=== PATIENT | male | born 1940 | race Caucasian/White ===

== ENCOUNTER 2018-04-30 21:31 | Emergency (ER) | payer MEDICARE, SELFPAY ==
[2018-04-30] VITALS (17 sets, daily range): BP systolic 98–114; BP diastolic 48–57; PULSE 71–108; RESP 12–24; TEMP 38.1; O2SAT 90–97
[2018-04-30 21:52] LABS: Bilirubin Negative (Negative); Blood Moderate (Negative); Clarity Cloudy; Glucose Negative (Negative); Ketones Negative (Negative); Leukocyte Esterase Moderate (Negative); Nitrite Positive (Negative); Specific Gravity 1.015 (1.005-1.025); Urobilinogen 0.2 EU/dL (Up TO 0.2); pH 7.5 (5-8)
[2018-04-30 21:59] LABS: WBC >50 HPF (0-5)
[2018-04-30 22:00] LABS: C & S Indicated? Yes
--- NOTE | 2018-04-30 22:00 | ED.GENADUL_ITS ---
Disposition Clinical Impression: UTI (urinary tract infection), Pyelonephritis Disposition: HOME Condition: Stable Instructions: Urinary Tract Infection in Men (ED) Additional Instructions: Take the antibiotics until finished. Take Tylenol as needed and directed for pain or fever. Follow-up with your scheduled appointment with urology next week. You should receive a call from care management regarding follow-up with your primary care doctor hopefully within the next few days. Return immediately to the emergency department any worsening or new concerning symptoms. Medical Decision Making - Lab Data Laboratory Tests 04/30/18 21:39 Urine Color Yellow Urine Clarity Cloudy Urine pH 7.5 Ur Specific [place] 1.015 Urine Protein 100 H Urine Ketones Negative Urine Blood Moderate H Urine Nitrite Positive H Urine Bilirubin Negative Urine Urobilinogen 0.2 Ur Leukocyte Esterase Moderate H Urine Glucose Negative - Radiology Data Radiology results: report reviewed, image reviewed CT abdomen and pelvis: 1. There are fluid-filled loops of small bowel with air-fluid levels. No significant bowel wall thickening or inflammatory changes. No obstruction. Consider early enteritis, gastroenteritis. 2. The distal appendix is distended at 7.4 mm of the proximal appendix measures probably 6 mm. There is a possible appendicolith versus contrast seen in the distal appendix. No secondary signs of appendicitis. Patient notified of 5 mm possible small hepatic cyst. - Medical Decision Making 2134 -- 77-year-old male with history of BPH with urinary urgency and lower abdominal pain 1 week with fever of T-max 103 this evening. 1000 mg Tylenol at 8 PM tonight. Admits to some testicular pain but testicles were not significantly tender, edematous, erythematous. He had mild lower suprapubic tenderness and right CVA tenderness. Temp on arrival 100.6. Heart rate was 108 on initial arrival but just after placement in room, has been in the 70s and 80s. Blood pressure initially 98/53 but has been stable and improved to 101/52. Patient appears nontoxic, in no acute distress. Will hold on Toradol for fever due to allergy to salicylates and to wait on labs to assess kidney function. Differential diagnosis includes UTI, pyelonephritis, epididymitis, prostatitis. As his pressure has been a little soft, urosepsis is a consideration however his vitals may be more consistent with dehydration. Considering patient's age, will place an IV, bolus IV fluids, labs, urinalysis and CT abdomen and pelvis. 2299 --labs reviewed. White blood cell count 11.24. Creatinine 1.65. GFR 40. Lactate 1.1. Urinalysis notes greater than 50 WBCs, positive nitrates, moderate leukocyte Estrace. Patient has allergy to sulfa and penicillin. Patient has 1 out of 4 Sirs criteria with temp greater than 100.4. His heart rate at 108 was taken after immediately walking back to room and has been consistently in the 70s and 80s. His respiratory rate has been between 16 and 17. His white count is less than 12. He states he would rather not stay in the hospital if possible. Will treat for possible pyelonephritis with ciprofloxacin. As almost at the 4 hour anjel for Tylenol, will give 1 g of Tylenol now. Will continue IV fluids. Patient to CT now. 29 --CT notes fluid-filled loops of bowel but no obstruction and appendicolith but no signs of appendicitis. Otherwise no other acute findings. He has no vomiting or diarrhea so doubt gastroenteritis. Patient states he feels much better would like to go home. Repeat temp afebrile. Vitals within normal limits and stable. I think this is a reasonable plan and patient is declining admission. We will send home with prescription for ciprofloxacin. Patient was informed of the possible side effects of fluoroquinolones of tendinopathy but that we are limited with his med allergies and he is agreeable to take this. Diagnosis appears consistent with UTI versus pyelonephritis. Considering patient's history of BPH and complaint of testicular pain, prostatitis could also be a consideration. Patient is followed by urologist Dr. Moses with whom he has an appointment next week. He is instructed to keep this appointment for follow-up. Will have care management also arrange for a follow-up appointment for reevaluation tomorrow or Friday if possible. Patient was instructed to return immediately to the emergency department with any worsening or new concerning symptoms. History of Present Illness - General Chief complaint: Urinary Stated complaint: FEVER, URINARY Time Seen by Provider: 04/30/18 21:35 Source: patient Mode of arrival: ambulatory Limitations: no limitations - History of Present Illness Initial comments: Patient is a 77-year-old female with a history of BPH who presents with urinary urgency and lower abdominal pain for the past week. Patient admits to intermittent fever and chills over the past few days, T-max 103 oral tonight. Last dose of Tylenol 1000 mg just before 8 PM tonight. He admits to intermittent aching lower abdominal pain for the past few days. He denies nausea, vomiting, back pain, hematuria, dysuria, discharge, chest pain, shortness of breath, cough. He denies recent antibiotics or recent hospital admission. - Related Data Finasteride 5 mg PO DAILY 12/03/16 Levothyroxine Sodium 75 mcg PO DAILY 12/03/16 Prednisolone [Millipred] 5 mg PO DAILY 12/03/16 Ropinirole HCl 2 mg PO HS 12/03/16 Tamsulosin HCl 1 tab PO HS 12/03/16 Ciprofloxacin HCl [Cipro] 500 mg PO BID 7 Days #22 tablet 05/03/18 Allergies Allergy/AdvReac Type Severity Reaction Status Date / Time Sulfa (Sulfonamide Allergy Intermediate Unverified 05/01/18 13:31 Antibiotics) cat dander Allergy Mild Unverified 05/01/18 13:31 penicillin V Allergy Mild Unverified 05/01/18 13:31 salicylates AdvReac Mild up set Unverified 05/01/18 13:31 stomach Review of Systems Constitutional: chills, fever Eyes: denies: eye pain ENT: denies: ear pain, dental pain Respiratory: denies: cough, shortness of breath Cardiovascular: denies: chest pain, dyspnea on exertion Gastrointestinal: abdominal pain. denies: nausea, vomiting Genitourinary: urgency. denies: dysuria, frequency, hematuria, discharge, testicular mass Musculoskeletal: denies: back pain Skin: denies: rash, lesions Neurological: denies: headache, weakness Past Medical History - Past Medical History Medical history: hypertension Hypothyroidism, BPH Surgical history: herniorraphy, other (Cataract surgery, right total hip replacement, tonsillectomy, hemorrhoidectomy) - Social History Smoking status: never smoker Alcohol use: occasionally Drug use: none General Exam - General Limitations: no limitations General appearance: alert, in no apparent distress - Eye Eye exam: Present: EOMI - ENT ENT exam: Present: mucous membranes moist - Neck Neck exam: Present: normal inspection - Respiratory Respiratory exam: Present: normal lung sounds bilaterally. Absent: respiratory distress, wheezes, rales, rhonchi, stridor - Cardiovascular Cardiovascular Exam: Present: regular rate, normal rhythm. Absent: bradycardia , tachycardia - GI/Abdominal GI/Abdominal exam: Present: soft, tenderness (Moderate suprapubic tenderness.), normal bowel sounds. Absent: distended, guarding, rebound, rigid - exam: Present: normal inspection. Absent: testicular tenderness, urethral discharge, scrotal swelling External exam: Absent: erythema, swelling, lesions, lacerations, eccymosis - Extremities Exam Extremities exam: Present: other (Bilateral 1+ lower extremity edema.) - Back Exam Back exam: Present: CVA tenderness (R). Absent: CVA tenderness (L) - Neurological Exam Neurological exam: Present: alert, oriented X3 - Psychiatric Psychiatric exam: Present: normal affect - Skin Skin exam: Present: warm, dry, intact Course Vital Signs - 24 hr 04/30/ 21:45 Temperature 100.6 F H Pulse 108 H Respiratory 20 Rate Blood Pressure 109/57 Pulse Oximetry 96
[2018-04-30] MEDS: Normal Saline 1,000 ML 1000 ML IV (22:10)
[2018-04-30 22:12] LABS: Abs Immature Grans 0.06 k/cumm (0.0-0.09); Absolute Basophil Count 0.01 k/cumm (0.0-0.2); Absolute Eosinophil Count 0.02 k/cumm (0.0-0.7); Absolute Lymphocyte Count 0.75 k/cumm (1.2-3.4); Basophils % 0.1; Eosinophils % 0.2; HCT 38.9 % (40.0-50.0); Immature Grans % 0.5; Lymphocytes % 6.7; Mean Corp. HGB Concentration 33.4 g/dL (32.0-36.0); Mean Corpuscular Hemoglobin 33.9 pg (27.0-33.0); Mean Corpuscular Volume 101.3 fL (80-95); Mean Platelet Volume 9.5 fL (8.0-11.0); Monocytes % 9.8; Neutrophils % 82.7; Platelet Count 207 x1000/uL (130-400); RBC 3.84 m/cumm (4.50-6.00); RBC Distribution Width 12.3 % (11.8-14.1); White Blood Cell Count 11.24 k/cumm (4.4-10.8)
[2018-04-30 22:13] LABS: Lactate-non-spesis 1.1 mmol/L (0.6-1.4)
[2018-04-30 22:31] LABS: ALT 12 U/L (12-78); AST 13 U/L (15-37); Albumin 3.5 g/dL (3.4-5.0); Alkaline Phosphatase 59 U/L (46-116); Anion Gap 9.2 mmol/L (3-11); BUN 23 mg/dL (7-18); Bilirubin, Total 1.7 mg/dL (0.2-1.0); CO2 26.8 mmol/L (21.0-32.0); CREATININE 1.65 mg/dL (0.70-1.30); Calcium 8.8 mg/dL (8.5-10.1); Chloride 101 mmol/L (98-107); Estimated GFR 40.65 (mL/min/1.73m2); Glucose 114 mg/dL (70-100); Sodium 137 mmol/L (136-145); Total Protein 6.9 g/dL (6.4-8.2)
[2018-04-30] MEDS: Omnipaque 350 MG/ML 100 ML BTL IJ (23:04)
--- NOTE | 2018-04-30 23:30 | DI.RPTCT_ITS ---
SYMPTOM/DIAGNOSIS: LOWER ABD PAIN, POSSIBLE UTI, R/O PYELONEPHRITIS VS OTHER ACUTE ABDOMINAL AND PELVIC CT: 04/30 CT examination of the abdomen and pelvis was performed with intravenous infusion of 75 cc Omnipaque 350. Images obtained through the lung bases are unremarkable. Ectasia of the descending thoracic aorta noted at about 37 mm No abdominal aortic aneurysm seen. The liver is unremarkable in appearance except for a few small rounded low attenuation lesions consistent with cysts. Spleen is unremarkable in appearance. Gallbladder is contracted. No biliary dilatation seen. Pancreas is unremarkable in appearance. Adrenals appear normal bilaterally. There are bilateral nonobstructing renal calculi. No hydronephrosis or ureterolithiasis. Urinary bladder grossly unremarkable. No significant abdominal wall hernia seen. No significant abdominal or pelvic adenopathy seen. Appendix contains small quantity of high attenuation material which could represent appendicolith or ingested material. No evidence of appendicitis or diverticulitis. No evidence of bowel obstruction. Slight fluid filled small bowel dilatation noted which may represent enteritis. CONCLUSION: No evidence of acute intra-abdominal process. Bilateral nonobstructing renal calculi noted.
[2018-04-30] MEDS: Normal Saline 1,000 ML 125 ML IV (23:51)
[2018-04-30] MEDS: Acetaminophen 500 MG TAB 1000 MG PO (23:51)
[2018-04-30] MEDS: CIPROFLOXACIN 400 MG/200 ML BAG 200 MG IVPB (23:51)
[2018-05-01] VITALS (11 sets, daily range): BP systolic 100–128; BP diastolic 46–54; PULSE 66–74; RESP 13; TEMP 37.1; O2SAT 94–98
--- NOTE | 2018-05-01 00:30 | DI.VRAD_ITS ---
EXAM: CT Abdomen and Pelvis With Intravenous Contrast CLINICAL HISTORY: 77 years old, male; Pain; Abdominal pain; Generalized; Prior surgery; Surgery date: 6+ months; Surgery type: Hip replacement, hernia repair, and back surgery; Patient HX: Fever and lower abdominal pain for a few days TECHNIQUE: Axial computed tomography images of the abdomen and pelvis with intravenous contrast. All CT scans at this facility use at least one of these dose optimization techniques: automated exposure control; mA and/or kV adjustment per patient size (includes targeted exams where dose is matched to clinical indication); or iterative reconstruction. Coronal and sagittal reformatted images were created and reviewed. CONTRAST: 75 mL of Omnipaque 350 administered intravenously. COMPARISON: No relevant prior studies available. FINDINGS: Lung bases: Moderate centrilobular emphysematous changes are present. Bilateral lower lobe atelectatic changes and scarring present. Pleural space: There is no evidence of pneumothorax. There are no pleural effusions present. Heart: The cardiac structures are normal. There is calcification of the cardiac aortic valve annulus. There is calcification of the cardiac mitral valve annulus. ABDOMEN: Liver: Small low attenuation areas measuring 5 mm within the liver consistent with small hepatic cysts. Gallbladder and bile ducts: The gallbladder is contracted but otherwise normal. There is no evidence of biliary ductal dilation. Pancreas: There is mild pancreatic atrophy and fatty replacement. Spleen: Calcifications within the splenic parenchyma consistent with old granulomatous exposure. Adrenals: The adrenal glands are normal. Kidneys and ureters: Bilateral nonobstructing intrarenal calculi present. Bilateral cortical atrophy present within the kidneys. There is bilateral perinephric stranding. This may represent a mild inflammatory process or old inflammation and scarring. Stomach and bowel: There are fluid-filled loops of small bowel with air-fluid levels. No significant bowel wall thickening or inflammatory changes. No evidence of obstruction. Consider early enteritis. The stomach is nondistended. There may be mild to moderate gastric wall thickening. There is fluid seen within the duodenum. Consider gastritis and duodenitis. There is no evidence of intestinal obstruction. PELVIS: Appendix: The distal appendix is distended at 7.4 mm of the proximal appendix measures approximately 6 mm. There is a possible appendicolith versus contrast seen within the distal appendix. No secondary signs of appendicitis. Bladder: There is nonspecific bladder wall thickening. This may be related to incomplete distention. Reproductive: The prostate gland demonstrates calcification and mild nonspecific enlargement. The seminal vesicles are normal. ABDOMEN and PELVIS: Intraperitoneal space: There is no free intraperitoneal air.There is no evidence of free intraperitoneal or pelvic fluid. Bones/joints: The skeletal structures and soft tissues show no evidence of fracture or other acute processes. The lumbar spine demonstrates moderate degenerative changes. There has been a right total hip arthroplasty. Soft tissues: The extra-abdominal soft tissues are normal. Vasculature: The aorta demonstrates mild atherosclerotic calcification. The peripheral vasculature demonstrates diffuse mild atherosclerotic calcification. The portal, mesenteric and splenic veins are patent. The inferior venacava appears normal. Lymph nodes: There is no evidence of lymphadenopathy. IMPRESSION: 1. There are fluid-filled loops of small bowel with air-fluid levels. No significant bowel wall thickening or inflammatory changes. No evidence of obstruction. Consider early enteritis. Consider gastroenteritis. 2. The distal appendix is distended at 7.4 mm of the proximal appendix measures approximately 6 mm. There is a possible appendicolith versus contrast seen within the distal appendix. No secondary signs of appendicitis. Dictated and Authenticated by: Obinna Vargas MD. Ordering:FRANCISCO CROWDER MD
[2018-05-01] MEDS: Ciprofloxacin 250 MG TAB 500 MG PO (01:07)
--- NOTE | 2018-05-01 09:03 | CMPROGNOTE_ITS ---
Care Management Progress Note 05/01-Dr. Crum requested assistance with a PCP (Gelacio) f/u on 05/01 or 05/04 for pylo and UTI. Referral faxed to [facility] this am.
--- NOTE | 2018-05-01 12:10 | ED.FU.B ---
- Follow Up Follow Up Plan: 77-year-old male seen yesterday in the emergency department: I was called by the lab for positive blood culture in the anaerobic bottle with gram-positive cocci, gram-negative rods, gram-positive rods. Patient seen by Dr. Crum in the evening of April 30. Pt underwent CT scan of the abdomen pelvis that was unremarkable. He was placed on ciprofloxacin. Outpatient followup was arranged. I called the patient at home, states fever has subsided. I recommended he return to the emergency department for repeat evaluation given the multiple positives on anaerobic blood culture from yesterday.
== END 2018-05-01 01:26 | disposition home or self-care (01) ==
PROVIDERS: Emergency Provider Physician Assistant; PCP Specialist/Technologist Athletic Trainer
DX: N10 Acute pyelonephritis (principal); N39.0 Urinary tract infection, site not specified; R10.30 Lower abdominal pain, unspecified; R78.81 Bacteremia; I10 Essential (primary) hypertension
CPT/HCPCS: 74177; 96361; 96365; 99285 ×2; J0744; 36410; 80053; 87040; 87077; 81003; 81015; 83605; 85025; 87086; 87186; J3490

== ENCOUNTER 2018-06-29 10:53 | Emergency (ER) | payer MEDICARE, SELFPAY ==
[2018-06-29 11:02] VITALS: BP 144/61; PULSE 62; RESP 20; TEMP 37.1; O2SAT 96
--- NOTE | 2018-06-29 11:19 | DI.RAD_ITS ---
SYMPTOM/DIAGNOSIS: BLUNT TRAUMA WITH LACERATION, ? FX OR FOREIGN BODY LEFT TIBIA AND FIBULA: There is soft tissue swelling. No fracture or foreign body is identified. There is no soft tissue air. Degenerative changes are seen at the knee and ankle. IMPRESSION: No acute abnormality.
--- NOTE | 2018-06-29 12:37 | W.ED.GENAD ---
Discharge Plan Disposition Patient Disposition: HOME Condition: Improving Discharge Details Chief Complaint: Laceration Clinical Impression: Laceration of left lower extremity Primary Care Provider: Gus Brizuela ED Provider: Heri Bautitsa Home Meds and New Rx's Prescriptions: No Action levothyroxine 75 MCG tablet 75 mcg PO DAILY RF: 0 tamsulosin 0.4 MG capsule 1 tab PO HS RF: 0 ropinirole 2 MG tablet 2 mg PO HS RF: 0 finasteride 5 MG tablet 5 mg PO DAILY RF: 0 prednisolone [Millipred] 5 MG tablet 5 mg PO DAILY RF: 0 cyclobenzaprine 10 mg Tablet 10 mg PO BID RF: 0 Discharge Instructions Instructions: Laceration (ED) Additional Instructions: Watch for any signs of infection and return immediately if these occur otherwise return to emergency department 10 days for suture removal. Please leave dressing in place for 24-48 hours. After dressing removal you may clean wound with mild soap and water only. Referrals: [facility] Emergency Dept. [Outside] (Return to emergency department in 10 days for suture removal. Return immediately for any signs of infection) Discharge Data Discharge Date/Time-TO BE ENTERED AT DEPARTURE: 06/29/18 12:55 Medical Decision Making Patient presenting the emergency department for chief complaint of left lower leg laceration. Patient states that stacked wood fell in multiple pieces hit his left leg causing a significant laceration. Patient denies any other injury or trauma. Physical exam reveals a 3-1/2 x 5-1/2 cm dogear laceration to the anterior surface of the left leg along with some bony tenderness. Given blunt trauma with some bony tenderness radiological imaging was ordered to rule out acute fracture or any obvious foreign body. After review of radiological imaging shows no acute findings patient gave verbal consent for suture closure. Wound visualized to base in bloodless field and no foreign body noted and no deep structure involvement just into subcutaneous tissue. 10 cc of 1% lidocaine with epinephrine. Wound was copiously irrigated and no evidence of foreign body was noted. Wound does extend into subcutaneous tissue otherwise no other deep tissue is involved. Wound closed with. 4 4-0 Ethilon and 8 3-0 Ethilon-total stitch count of 12 simple interrupted. Moderate wound edge approximation was achieved difficult to fully approximate due to frail skin. Patient states tetanus updated in 2016 so no Tdap given. Patient encouraged watch for signs of infection return immediately if these occur. After discussion of diagnosis and plan of care patient has no further needs, questions, or concerns and states clear understanding to return to the emergency department for any worsening symptoms. HPI General Mode of arrival: ambulatory. Date/Time Provider Initiated Documentation: 06/29/18 11:11. Limitations to Documentation: no limitations. Information obtained by: patient and RN notes reviewed. History of Present Illness 77 year old M presents to the emergency department with the chief complaint of left leg laceration, described as moderate, with intensity rated at 7. Quality is described as sharp, and is localized to the left and lower extremity. Patient started experiencing this hour(s) (1.5) and it has been constant. No relieving factors improve symptom(s), No exacerbating factors reported . Patient notes no other symptoms.. Patient did receive the following treatments prior to arrival, none Related Data Home Medications Medication Instructions Recorded Confirmed finasteride 5 mg PO DAILY 12/03/16 05/01/18 levothyroxine 75 mcg PO DAILY 12/03/16 05/01/18 prednisolone [Millipred] 5 mg PO DAILY 12/03/16 05/01/18 ropinirole 2 mg PO HS 12/03/16 05/01/18 tamsulosin 1 tab PO HS 12/03/16 05/01/18 cyclobenzaprine 10 mg PO BID 06/29/18 06/29/18 Allergies Allergy/AdvReac Type Severity Reaction Status Date / Time Sulfa (Sulfonamide Allergy Intermediate Unverified 06/29/18 11:04 Antibiotics) cat dander Allergy Mild Unverified 06/29/18 11:04 penicillin V Allergy Mild Unverified 06/29/18 11:04 salicylates AdvReac Mild up set Unverified 06/29/18 11:04 stomach General Stated Complaint: Laceration BRYCE: 3 Review of Systems Cardiovascular Denies syncope and Denies lightheadedness Musculoskeletal Denies deformity, Denies limited range of motion and Denies numbness Integumentary/Breasts Reports as per HPI Neurologic Denies syncope and Denies numbness PFSH Social History Smoking/Tobacco Use Status: Former Tobacco Use Exam Const General: cooperative and no acute distress Orientation: alert, awake and oriented x3 Limitations: mental status not altered Resp Effort & Inspection: normal respiratory effort and able to speak in complete sentences Cardio Rate: regular rate Rhythm: regular rhythm Neuro General: alert, awake, oriented x3, gait normal, tone normal, moves all extremities, normal light touch, pain and propioception and no focal motor deficits Motor: no movement abnormalities noted Sensory Exam: no sensory deficits noted Extrem General: normal exam except as noted Left lower extremity: lower leg Details: laceration (Dog ear laceration to anterior surface of lower leg) Course Vital Signs Temperature 37.1 C 06/29/18 11:02 Pulse 62 06/29/18 11:02 Respiratory Rate 20 06/29/18 11:02 Blood Pressure 144/61 H 06/29/18 11:02 Pulse Oximetry 96 06/29/18 11:02 Temperature 37.1 C 06/29/18 11:02 Temperature Source Temporal Artery Scan 06/29/18 11:02 Pulse 62 06/29/18 11:02 Respiratory Rate 20 06/29/18 11:02 Respiratory Effort Non-Labored 06/29/18 11:02 Blood Pressure 144/61 H 06/29/18 11:02 Blood Pressure Position Sitting 06/29/18 11:02 Pulse Oximetry 96 06/29/18 11:02 Oxygen Delivery Method Room Air 06/29/18 11:02 Oxygen Flow Rate 0 06/29/18 11:02 Pain Level 7 06/29/18 11:14
--- NOTE | 2018-06-29 12:43 | ED.GENADUL_ITS ---
Discharge Plan Disposition Patient Disposition: HOME Condition: Improving Discharge Details Chief Complaint: Laceration Clinical Impression: Laceration of left lower extremity Primary Care Provider: Gus Brizuela ED Provider: Heri Bautista Home Meds and New Rx's Prescriptions: No Action levothyroxine 75 MCG tablet 75 mcg PO DAILY RF: 0 tamsulosin 0.4 MG capsule 1 tab PO HS RF: 0 ropinirole 2 MG tablet 2 mg PO HS RF: 0 finasteride 5 MG tablet 5 mg PO DAILY RF: 0 prednisolone [Millipred] 5 MG tablet 5 mg PO DAILY RF: 0 cyclobenzaprine 10 mg Tablet 10 mg PO BID RF: 0 Discharge Instructions Instructions: Laceration (ED) Additional Instructions: Watch for any signs of infection and return immediately if these occur otherwise return to emergency department 10 days for suture removal. Please leave dressing in place for 24-48 hours. After dressing removal you may clean wound with mild soap and water only. Referrals: [facility] Emergency Dept. [Outside] (Return to emergency department in 10 days for suture removal. Return immediately for any signs of infection) Discharge Data Discharge Date/Time-TO BE ENTERED AT DEPARTURE: 06/29/18 12:55 Medical Decision Making Patient presenting the emergency department for chief complaint of left lower leg laceration. Patient states that stacked wood fell in multiple pieces hit his left leg causing a significant laceration. Patient denies any other injury or trauma. Physical exam reveals a 3-1/2 x 5-1/2 cm dogear laceration to the anterior surface of the left leg along with some bony tenderness. Given blunt trauma with some bony tenderness radiological imaging was ordered to rule out acute fracture or any obvious foreign body. After review of radiological imaging shows no acute findings patient gave verbal consent for suture closure. Wound visualized to base in bloodless field and no foreign body noted and no deep structure involvement just into subcutaneous tissue. 10 cc of 1% lidocaine with epinephrine. Wound was copiously irrigated and no evidence of foreign body was noted. Wound does extend into subcutaneous tissue otherwise no other deep tissue is involved. Wound closed with. 4 4-0 Ethilon and 8 3-0 Ethilon-total stitch count of 12 simple interrupted. Moderate wound edge approximation was achieved difficult to fully approximate due to frail skin. Patient states tetanus updated in 2016 so no Tdap given. Patient encouraged watch for signs of infection return immediately if these occur. After discussion of diagnosis and plan of care patient has no further needs, questions, or concerns and states clear understanding to return to the emergency department for any worsening symptoms. HPI General Mode of arrival: ambulatory . Date/Time Provider Initiated Documentation: 06/29/18 11:11 . Limitations to Documentation: no limitations . Information obtained by: patient and RN notes reviewed . History of Present Illness 77 year old M presents to the emergency department with the chief complaint of left leg laceration, described as moderate, with intensity rated at 7. Quality is described as sharp, and is localized to the left and lower extremity. Patient started experiencing this hour(s) (1.5) and it has been constant. No relieving factors improve symptom(s), No exacerbating factors reported . Patient notes no other symptoms.. Patient did receive the following treatments prior to arrival, none Related Data Home Medications Medication Instructions Recorded Confirmed finasteride 5 mg PO DAILY 12/03/16 05/01/18 levothyroxine 75 mcg PO DAILY 12/03/16 05/01/18 prednisolone [Millipred] 5 mg PO DAILY 12/03/16 05/01/18 ropinirole 2 mg PO HS 12/03/16 05/01/18 tamsulosin 1 tab PO HS 12/03/16 05/01/18 cyclobenzaprine 10 mg PO BID 06/29/18 06/29/18 Allergies Allergy/AdvReac Type Severity Reaction Status Date / Time Sulfa (Sulfonamide Allergy Intermediate Unverified 06/29/18 11:04 Antibiotics) cat dander Allergy Mild Unverified 06/29/18 11:04 penicillin V Allergy Mild Unverified 06/29/18 11:04 salicylates AdvReac Mild up set Unverified 06/29/18 11:04 stomach General Stated Complaint: Laceration BRYCE: 3 Review of Systems Cardiovascular Denies syncope and Denies lightheadedness Musculoskeletal Denies deformity, Denies limited range of motion and Denies numbness Integumentary/Breasts Reports as per HPI Neurologic Denies syncope and Denies numbness PFSH Social History Smoking/Tobacco Use Status: Former Tobacco Use Exam Const General: cooperative and no acute distress Orientation: alert, awake and oriented x3 Limitations: mental status not altered Resp Effort & Inspection: normal respiratory effort and able to speak in complete sentences Cardio Rate: regular rate Rhythm: regular rhythm Neuro General: alert, awake, oriented x3, gait normal, tone normal, moves all extremities, normal light touch, pain and propioception and no focal motor deficits Motor: no movement abnormalities noted Sensory Exam: no sensory deficits noted Extrem General: normal exam except as noted Left lower extremity: lower leg Details: laceration (Dog ear laceration to anterior surface of lower leg) Course Vital Signs Temperature 37.1 C 06/29/18 11:02 Pulse 62 06/29/18 11:02 Respiratory Rate 20 06/29/18 11:02 Blood Pressure 144/61 H 06/29/18 11:02 Pulse Oximetry 96 06/29/18 11:02 Temperature 37.1 C 06/29/18 11:02 Temperature Source Temporal Artery Scan 06/29/18 11:02 Pulse 62 06/29/18 11:02 Respiratory Rate 20 06/29/18 11:02 Respiratory Effort Non-Labored 06/29/18 11:02 Blood Pressure 144/61 H 06/29/18 11:02 Blood Pressure Position Sitting 06/29/18 11:02 Pulse Oximetry 96 06/29/18 11:02 Oxygen Delivery Method Room Air 06/29/18 11:02 Oxygen Flow Rate 0 06/29/18 11:02 Pain Level 7 06/29/18 11:14
[2018-06-29 12:52] VITALS: BP 144/61; PULSE 62; RESP 20; TEMP 37.1; O2SAT 96
== END 2018-06-29 12:55 | disposition home or self-care (01) ==
PROVIDERS: Emergency Provider Nurse Practitioner Family; PCP Specialist/Technologist Athletic Trainer
DX: S81.812A Laceration without foreign body, left lower leg, initial encounter (principal); W20.8XXA Other cause of strike by thrown, projected or falling object, initial encounter
CPT/HCPCS: 12002; 73590

== ENCOUNTER 2018-07-08 10:18 | Emergency (ER) | payer MEDICARE, SELFPAY ==
[2018-07-08 10:27] VITALS: BP 142/59; PULSE 65; RESP 18; TEMP 37.1; O2SAT 97
--- NOTE | 2018-07-08 11:04 | ED.GENADUL_ITS ---
Discharge Plan Disposition Patient Disposition: HOME Condition: Stable Discharge Details Chief Complaint: Laceration Clinical Impression: Visit for suture removal Primary Care Provider: Gus Brizuela ED Provider: Heri Bautista Home Meds and New Rx's Prescriptions: New cephalexin [Keflex] 500 mg capsule 500 mg PO QID Qty: 20 RF: 0 Continue levothyroxine 75 MCG tablet 75 mcg PO DAILY RF: 0 tamsulosin 0.4 MG capsule 1 tab PO HS RF: 0 ropinirole 2 MG tablet 2 mg PO HS RF: 0 finasteride 5 MG tablet 5 mg PO DAILY RF: 0 prednisolone [Millipred] 5 MG tablet 5 mg PO DAILY RF: 0 cyclobenzaprine 10 mg Tablet 10 mg PO BID RF: 0 Discharge Instructions Instructions: Stitches Removal (ED) Additional Instructions: Please wear your compression socks for the next couple days and see if this improves the redness and discomfort. If you notice spreading redness, worsening signs of infection or purulent/puss like drainage begin the antibiotics and take as prescribed. Follow-up to the emergency department as needed for any new or worsening symptoms Referrals: Gus Brizuela [Primary Care Provider] - (As needed for reassessment) Discharge Data Discharge Date/Time-TO BE ENTERED AT DEPARTURE: 07/08/18 11:55 Medical Decision Making Patient here for suture removal and question of possible infection. 12 sutures removed and mostly clear serosanguineous drainage no purulence, no odor. Patient does have ongoing lower extremity edema that he has worn compression socks for but due to laceration he has not been able to wear his compression socks. I feel that this is more of the cause of patient's discomfort than infection but given slight redness surrounding the area patient was given prescription of Keflex to start if he notices any worsening symptoms but patient states that he has not had any worsening of symptoms since it occurred and has pretty much stayed erythematous since the initial injury. Patient encouraged to return for any new or worsening symptoms. HPI General Mode of arrival: ambulatory . Date/Time Provider Initiated Documentation: 07/08/18 10:33 . Limitations to Documentation: no limitations . Information obtained by: patient . History of Present Illness 77 year old M presents to the emergency department with the chief complaint of Suture removal and laceration evaluation, described as moderate, with intensity rated at 6. Quality is described as aching and constant, and is localized to the left and lower extremity. Patient started experiencing this day(s) (9) and it has been constant. No relieving factors improve symptom(s) , Patient notes no other symptoms.. Patient did receive the following treatments prior to arrival, none Related Data Home Medications Medication Instructions Recorded Confirmed finasteride 5 mg PO DAILY 12/03/16 05/01/18 levothyroxine 75 mcg PO DAILY 12/03/16 05/01/18 prednisolone [Millipred] 5 mg PO DAILY 12/03/16 05/01/18 ropinirole 2 mg PO HS 12/03/16 05/01/18 tamsulosin 1 tab PO HS 12/03/16 05/01/18 cyclobenzaprine 10 mg PO BID 06/29/18 06/29/18 cephalexin [Keflex] 500 mg PO QID #20 cap NS 07/08/18 Previous Rx's Medication Instructions Recorded cephalexin [Keflex] 500 mg PO QID #20 cap NS 07/08/18 Allergies Allergy/AdvReac Type Severity Reaction Status Date / Time Sulfa (Sulfonamide Allergy Intermediate Unverified 06/29/18 11:04 Antibiotics) cat dander Allergy Mild Unverified 06/29/18 11:04 penicillin V Allergy Mild Unverified 06/29/18 11:04 salicylates AdvReac Mild up set Unverified 06/29/18 11:04 stomach General Stated Complaint: Laceration BRYCE: 3 Review of Systems Constitutional Denies body ache(s), Denies chills and Denies fever(s) Cardiovascular Denies chest pain and Denies dyspnea Respiratory Denies dyspnea Gastrointestinal Denies abdominal pain, Denies nausea and Denies vomiting Integumentary/Breasts Denies rash Neurologic Denies confusion and Denies sensory deficit Psychiatric Denies confusion Exam Const General: cooperative, no acute distress and not ill appearing Orientation: alert, awake and oriented x3 HENMT Mouth: moist mucous membranes Resp Effort & Inspection: normal respiratory effort, able to speak in complete sentences and no respiratory distress Cardio Rate: regular rate Rhythm: regular rhythm Skin Trauma: other (Healing laceration to left lower extremity with mild erythema just surrounding the wound edge borders and ecchymosis) Neuro General: alert, awake, oriented x3, moves all extremities and no focal motor deficits Sensory Exam: no sensory deficits noted Course Vital Signs Temperature 37.1 C 10/31/18 10:27 Pulse 65 07/08/18 10:27 Respiratory Rate 18 07/08/18 10:27 Blood Pressure 142/59 H 07/08/18 10:27 Pulse Oximetry 97 07/08/18 10:27 Temperature 37.1 C 07/08/18 10:27 Temperature Source Temporal Artery Scan 07/08/18 10:27 Pulse 65 07/08/18 10:27 Respiratory Rate 18 07/08/18 10:27 Respiratory Effort 07/08/18 10:29 Blood Pressure 142/59 H 07/08/18 10:27 Blood Pressure Position Sitting 07/08/18 10:27 Pulse Oximetry 97 07/08/18 10:27 Pain Level 7 07/08/18 10:27
[2018-07-08 11:54] VITALS: BP 112/80; PULSE 80; RESP 18; TEMP 36.8; O2SAT 99
== END 2018-07-08 11:55 | disposition home or self-care (01) ==
PROVIDERS: Emergency Provider Nurse Practitioner Family; PCP Specialist/Technologist Athletic Trainer
DX: T81.41XA Infection following a procedure, superficial incisional surgical site, initial encounter (principal); S81.812D Laceration without foreign body, left lower leg, subsequent encounter; R60.0 Localized edema; R68.83 Chills (without fever); W20.8XXD Other cause of strike by thrown, projected or falling object, subsequent encounter; Z48.02 Encounter for removal of sutures
CPT/HCPCS: 99283

== ENCOUNTER 2018-10-15 01:52 | Outpatient (CLI) | payer MEDICARE, SELFPAY ==
--- NOTE | 2018-10-15 11:11 | DI.RAD_ITS ---
SYMPTOMS/DIAGNOSIS: BILATERAL KNEE PAIN X 3 MONTHS, LEFT GREATER THAN RIGHT, M25.562 BILATERAL KNEES: Multiple views were obtained. Note is made of bilateral mild patellofemoral lateral subluxation. There is chondrocalcinosis of both knees. There is narrowing of the medial tibiofemoral cartilaginous joint spaces, left greater than right. Mild narrowing of lateral tibiofemoral joint may be present on the right as well. Mild hypertrophic spurring of the bones of the knee noted. CONCLUSION: DJD, both knees.
== END 2018-10-15 02:12 ==
PROVIDERS: PCP Specialist/Technologist Athletic Trainer; Visit Provider Nurse Practitioner
DX: M25.561 Pain in right knee (principal); M25.562 Pain in left knee; M17.0 Bilateral primary osteoarthritis of knee
CPT/HCPCS: 73562; 73564

== ENCOUNTER 2018-11-09 12:44 | Outpatient (REF) | payer MEDICARE, SELFPAY ==
[2018-11-09 20:36] LABS: Abs Immature Grans 0.01 k/cumm (0.0-0.09); Absolute Basophil Count 0.01 k/cumm (0.0-0.2); Absolute Eosinophil Count 0.06 k/cumm (0.0-0.7); Absolute Lymphocyte Count 0.78 k/cumm (1.2-3.4); Absolute Monocyte Count 0.71 k/cumm (0.11-0.7); Absolute Neutrophil Count 4.79 k/cumm (1.2-6.7); Basophils % 0.2; Eosinophils % 0.9; HCT 41.7 % (40.0-50.0); HGB 14.4 g/dL (13.5-17.5); Immature Grans % 0.2; Lymphocytes % 12.3; Mean Corp. HGB Concentration 34.5 g/dL (32.0-36.0); Mean Corpuscular Hemoglobin 34.5 pg (27.0-33.0); Mean Platelet Volume 9.4 fL (8.0-11.0); Monocytes % 11.2; Neutrophils % 75.2; Platelet Count 151 x1000/uL (130-400); RBC 4.17 m/cumm (4.50-6.00); RBC Distribution Width 12.6 % (11.8-14.1); White Blood Cell Count 6.36 k/cumm (4.4-10.8)
[2018-11-09 20:43] LABS: Anion Gap 8.2 mmol/L (3-11); BUN 18 mg/dL (7-18); CO2 29.8 mmol/L (21.0-32.0); CREATININE 1.18 mg/dL (0.70-1.30); Calcium 8.5 mg/dL (8.5-10.1); Chloride 103 mmol/L (98-107); Glucose 109 mg/dL (70-100); Potassium 4.2 mmol/L (3.5-5.1); Sodium 141 mmol/L (136-145)
== END 2018-11-09 13:04 ==
LOC: NCHCN 12:44
PROVIDERS: PCP Specialist/Technologist Athletic Trainer; Visit Provider Nurse Practitioner Family
DX: R05 Cough (principal)
CPT/HCPCS: 80048; 85025

== ENCOUNTER 2018-11-09 13:35 | Outpatient (CLI) | payer MEDICARE, SELFPAY ==
--- NOTE | 2018-11-09 13:00 | DI.RAD_ITS ---
SYMPTOMS/DIAGNOSIS: COUGH, R05, ADVENTITIOUS LUNG SOUNDS AT RIGHT BASE, WHEEZES, ? PNEUMONIA PA AND LATERAL CHEST: Comparison is made with April,. The heart size is normal. The aorta is tortuous. There are underlying mild fibrotic changes. No superimposed infiltrate, effusion or pulmonary edema is seen. IMPRESSION: Mild chronic fibrotic changes. No acute abnormality.
== END 2018-11-09 13:55 ==
PROVIDERS: PCP Specialist/Technologist Athletic Trainer; Visit Provider Nurse Practitioner
DX: R09.89 Other specified symptoms and signs involving the circulatory and respiratory systems (principal); R06.02 Shortness of breath; J84.10 Pulmonary fibrosis, unspecified
CPT/HCPCS: 71046

== ENCOUNTER 2018-11-16 14:36 | Outpatient (CLI) | payer MEDICARE, SELFPAY ==
[2018-11-16 16:21] LABS: D-Dimer 1086 ng/mlFEU (<500)
== END 2018-11-16 14:56 ==
PROVIDERS: PCP Specialist/Technologist Athletic Trainer; Visit Provider Specialist/Technologist Athletic Trainer
DX: R05 Cough (principal)
CPT/HCPCS: 36415; 85379

== ENCOUNTER 2018-11-16 18:35 | Emergency (ER) | payer MEDICARE, SELFPAY ==
[2018-11-16 18:44] VITALS: BP 159/95; PULSE 81; RESP 16; TEMP 36.7; O2SAT 96
--- NOTE | 2018-11-16 18:50 | DI.CT_ITS ---
SYMPTOM/DIAGNOSIS: SOB, + D DIMER PE CHEST CT: CT angiography was performed with multi slice acquisition and multi planar and 3D reconstruction. CT scan of the chest was performed according to the pulmonary embolus protocol. Comparison CT scan is of the abdomen and pelvis dated 04/30/18. There is no evidence of a pulmonary embolus. The thoracic aorta shows no evidence of dissection. Ascending aorta measures 4.5 by 4.4 cm. in diameter. Heart size is within normal limits. No significant pericardial effusion is seen. No significant thoracic adenopathy, pleural effusion or pneumothorax is identified. There are scattered ground glass opacities in the lungs and septal thickening noted. The tracheobronchial tree is unremarkable. There is a 1 cm. nodule in the left lower lobe medially adjacent to the aorta. There are a few tiny hypodense lesions seen in the liver. These were visualized on the CT scan from 04/30/18. There are degenerative changes seen in the spine. No acute fracture or subluxation is seen in the thoracic spine. IMPRESSION: 1. No evidence of a pulmonary embolus or thoracic aortic dissection. 2. Ground glass opacities and septal thickening in the lungs. This may represent pulmonary edema or pneumonia.
[2018-11-16] MEDS: Albuterol/Ipratropium 3 ML UPD VIAL UPD (19:25)
--- NOTE | 2018-11-16 19:33 | ED.GENADUL_ITS ---
Discharge Plan Disposition Patient Disposition: HOME Condition: Stable Discharge Details Chief Complaint: RespSymp Clinical Impression: Pneumonia Primary Care Provider: Gus Brizuela ED Provider: Heri Bautista Home Meds and New Rx's Prescriptions: No Action cephalexin [Keflex] 500 mg capsule 500 mg PO QID Qty: 20 RF: 0 levothyroxine 75 MCG tablet 75 mcg PO DAILY RF: 0 tamsulosin 0.4 MG capsule 1 tab PO HS RF: 0 ropinirole 2 MG tablet 2 mg PO HS RF: 0 finasteride 5 MG tablet 5 mg PO DAILY RF: 0 Millipred 5 MG tablet 5 mg PO DAILY RF: 0 cyclobenzaprine 10 mg Tablet 10 mg PO BID RF: 0 Discharge Data Discharge Date/Time-TO BE ENTERED AT DEPARTURE: 11/16/18 22:42 Medical Decision Making Patient presents the emergency department for 2 weeks of cough. Patient/primary care provider multiple times and was placed on multiple antibiotic's with not improving. Today patient was informed of an elevated d-dimer and so is presenting to the emergency department. Patient states some pleuritic chest pain, mild dyspnea, chest congestion with continued cough. Patient does state that this started out with he attributed to just having a common cold that is just not getting better. Patient denies any recent fever chills. Patient denies any worsening of his symptoms but just states that he is not getting any better. physical exam shows diffuse coarse wheezes and rhonchi throughout all lung akhtar. Cardiac exam is otherwise unremarkable. Review of labs show an anemia which appears that patient has had in the past, no leukocytosis, negative troponin, mildly elevated BNP but nondiagnostic, slightly decreased GFR but not too far off of patient's based. Review of CT imaging shows no PE, scattered areas of mild groundglass attenuation and intralobular subpleural think thickening. Could reflect a mild pneumonitis or edema. Other incidental findings as noted. Patient reassessed and states that he did have some slight improvement after DuoNeb. Patient given albuterol inhaler with spacer. After he used treatments appropriately he was reassessed and did show improvement of lung sounds but still contains scattered wheezes but more air movement noted. Patient also did state that this improved his symptoms. I feel that the groundglass attenuation could be patients continue pneumonia but given that he is on Levaquin he was encouraged to continue this medication and follow-up with his primary care provider preferably in the next 2-3 days for reassessment. Return precautions discussed. After discussion of diagnosis and plan of care patient has no further needs, questions, or concerns and states clear understanding to return to the emergency department for any w orsening symptoms. HPI General Mode of arrival: ambulatory . Date/Time Provider Initiated Documentation: 11/16/18 18:50 . Limitations to Documentation: no limitations . Information obtained by: patient . History of Present Illness 78 year old M presents to the emergency department with the chief complaint of cough chest discomfort, described as mild, with intensity rated at 4. Quality is described as burning and aching, Patient started experiencing this week(s) (2) and it has been constant. No relieving factors improve symptom(s), Related Data Home Medications Medication Instructions Recorded Confirmed Millipred 5 mg PO DAILY 12/03/16 11/16/18 finasteride 5 mg PO DAILY 12/03/16 11/16/18 levothyroxine 75 mcg PO DAILY 12/03/16 11/16/18 ropinirole 2 mg PO HS 12/03/16 11/16/18 tamsulosin 1 tab PO HS 12/03/16 11/16/18 cyclobenzaprine 10 mg PO BID 06/29/18 11/16/18 cephalexin [Keflex] 500 mg PO QID #20 cap NS 07/08/18 11/16/18 Previous Rx's Medication Instructions Recorded cephalexin [Keflex] 500 mg PO QID #20 cap NS 07/08/18 Allergies Allergy/AdvReac Type Severity Reaction Status Date / Time Sulfa (Sulfonamide Allergy Intermediate Unverified 11/16/18 18:48 Antibiotics) cat dander Allergy Mild Unverified 11/16/18 18:48 penicillin V Allergy Mild Unverified 11/16/18 18:48 salicylates AdvReac Mild up set Unverified 11/16/18 18:48 stomach General Stated Complaint: RespSymp BRYCE: 2 Review of Systems Constitutional Denies chills, Denies fever(s) and Denies malaise Cardiovascular Reports as per HPI, Reports chest pain, Denies chest pain with activity, Denies syncope, Denies irregular heart rhythm, Denies palpitations and Reports dyspnea Respiratory Reports change in phlegm color, Reports chest congestion, Denies cough, Denies hemoptysis, Reports dyspnea and Reports wheezing Gastrointestinal Denies abdominal pain, Denies nausea and Denies vomiting Neurologic Denies syncope Psychiatric Denies anxiety Endocrine Denies cold intolerance, Denies heat intolerance and Denies palpitations Allergic/Immunologic Reports wheezing [facility] Social History Smoking/Tobacco Use Status: Former Tobacco Use Drug use: Never Do you feel safe in your relationship?: Yes Exam Const General: cooperative, healthy appearing, comfortable, no acute distress, not diaphoretic and not ill appearing Nutritional Appearance: average body habitus Orientation: alert, awake and oriented x3 Limitations: mental status not altered Neck Neck: normal visual inspection, full ROM, trachea midline, supple and no anterior neck swelling Thyroid: thyroid normal Carotids: normal carotid upstroke and no bruits Chest Chest: normal inspection of the chest Resp Effort & Inspection: normal respiratory effort and able to speak in complete sentences Auscultation: rhonchi upper bilaterally and lower bilaterally and wheezes expiratory wheezes Cardio Jugular venous pressure: no JVD Palpation: normal PMI Rate: regular rate Rhythm: regular rhythm Heart Sounds: S1 normal, S2 normal, no click, no gallops, no murmurs and no rubs Bruits: no abdominal aortic bruits and no carotid bruits Pulses: radial pulses present bilaterally 2+ Skin General skin exam: no rashes or lesions noted Course Vital Signs Temperature 36.7 C 11/16/18 18:44 Pulse 81 11/16/18 18:44 Respiratory Rate 16 11/16/18 18:44 Blood Pressure 159/95 H 11/16/18 18:44 Pulse Oximetry 96 11/16/18 18:44 Temperature 36.7 C 11/16/18 18:44 Temperature Source Skin 11/16/18 18:44 Pulse 81 11/16/18 18:44 Respiratory Rate 16 11/16/18 18:44 Respiratory Effort 11/16/18 18:44 Blood Pressure 159/95 H 11/16/18 18:44 Blood Pressure Position Sitting 11/16/18 18:44 Pulse Oximetry 96 11/16/18 18:44 Oxygen Delivery Method Room Air 11/16/18 18:44 Oxygen Flow Rate 0 11/16/18 18:44 Pain Level 4 11/16/18 18:44
[2018-11-16] MEDS: Omnipaque 350 MG/ML 100 ML BTL IJ (20:02)
[2018-11-16 20:24] LABS: Abs Immature Grans 0.07 k/cumm (0.0-0.09); Absolute Eosinophil Count 0.03 k/cumm (0.0-0.7); Absolute Lymphocyte Count 0.77 k/cumm (1.2-3.4); Absolute Monocyte Count 0.41 k/cumm (0.11-0.7); Absolute Neutrophil Count 5.81 k/cumm (1.2-6.7); Eosinophils % 0.4; HCT 37.9 % (40.0-50.0); HGB 13.2 g/dL (13.5-17.5); Lymphocytes % 10.9; Mean Corp. HGB Concentration 34.8 g/dL (32.0-36.0); Mean Corpuscular Hemoglobin 34.1 pg (27.0-33.0); Mean Corpuscular Volume 97.9 fL (80-95); Mean Platelet Volume 9.2 fL (8.0-11.0); Monocytes % 5.8; Neutrophils % 81.9; Platelet Count 176 x1000/uL (130-400); RBC 3.87 m/cumm (4.50-6.00); RBC Distribution Width 12.6 % (11.8-14.1); White Blood Cell Count 7.09 k/cumm (4.4-10.8)
--- NOTE | 2018-11-16 20:27 | DI.VRAD_ITS ---
EXAM: CT Angiography Chest With Contrast EXAM DATE/TIME: 11/16/2018 6:55 PM CLINICAL HISTORY: 78 years old, male; Signs and symptoms and abnormal findings; Abnormal diagnostic tests; Elevated d-dimer; Shortness of breath; Patient HX: SOB, positive ddimer TECHNIQUE: Axial computed tomographic angiography images of the chest with intravenous contrast using CT angiography protocol. Coronal and sagittal reformatted images were created and reviewed. MIP reconstructed images were created and reviewed. COMPARISON: CR XR CHEST 2V PA LATERAL 11/09/2018 12:51 PM FINDINGS: Pulmonary arteries: No pulmonary emboli. 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 No evidence of rupture. Normal caliber of the descending aorta which is somewhat ectatic. Lungs: 10 mm nodule in the left lower lobe may contain areas of measurable fat, suggesting a benign hamartoma. Follow-up as per institutional protocol. Scattered areas of mild groundglass attenuation and interlobular septal thickening. No airspace consolidation. Pleural space: No pneumothorax. No pleural effusion. Heart: No cardiomegaly. No pericardial effusion. Liver: Benign-appearing hepatic cysts. Lymph nodes: No enlarged lymph nodes. Bones/joints: No acute fracture. Soft tissues: Mild bilateral gynecomastia. IMPRESSION: 1. No pulmonary emboli are seen. 2. Scattered areas of mild groundglass attenuation and interlobular septal thickening. Could reflect a mild pneumonitis or edema. 3. Incidental findings as described. Dictated and Authenticated by: Leona Vail MD. Ordering:ELY Liriano MD
[2018-11-16 20:37] LABS: ALT 10 U/L (12-78); AST 16 U/L (15-37); Albumin 3.3 g/dL (3.4-5.0); Alkaline Phosphatase 60 U/L (46-116); Anion Gap 5.4 mmol/L (3-11); BUN 23 mg/dL (7-18); Bilirubin, Total 0.9 mg/dL (0.2-1.0); CO2 30.6 mmol/L (21.0-32.0); CREATININE 1.35 mg/dL (0.70-1.30); Calcium 9.1 mg/dL (8.5-10.1); Chloride 100 mmol/L (98-107); Estimated GFR 51.11 (mL/min/1.73m2); Glucose 117 mg/dL (70-100); Potassium 4.7 mmol/L (3.5-5.1); Sodium 136 mmol/L (136-145); Total Protein 6.1 g/dL (6.4-8.2)
[2018-11-16 20:38] LABS: INR 1.2 (0.9-1.1); PTT Activated 23.7 sec (21.0-31.4); Prothrombin Time 12.3 sec (9.3-11.0)
[2018-11-16 20:41] LABS: NT-proBNP 363 pg/mL
[2018-11-16 20:46] LABS: Magnesium 1.8 mg/dL (1.8-2.4)
[2018-11-16 20:47] LABS: Troponin I < 0.02 ng/mL (0.00-0.06)
[2018-11-16 20:51] LABS: D-Dimer 854 ng/mlFEU (<500)
[2018-11-16 21:03] VITALS: BP 145/68; PULSE 69; PULSE 70; RESP 10; O2SAT 99
[2018-11-16 21:04] VITALS: PULSE 72; RESP 10; O2SAT 100
[2018-11-16 21:10] VITALS: PULSE 73; RESP 9; O2SAT 100
[2018-11-16 21:16] VITALS: BP 144/72; PULSE 69; PULSE 75; RESP 19; O2SAT 98
[2018-11-16 21:20] VITALS: RESP 13; O2SAT 98
[2018-11-16] MEDS: Albuterol HFA 8 GM 60 PUFF INH IH (22:14)
[2018-11-16] MEDS: Inhaler, Assist Device 1 EACH MC (22:15)
--- NOTE | 2018-11-17 07:47 | PDOC.ERCMPRO ---
Care Management Progress Note 11/17-[employer] requested assistance with a PCP (Gelacio) f/u in 2-3 days to reassess for pneumonia. Referral faxed to [facility] this am.
--- NOTE | 2018-11-17 07:49 | CMPROGNOTE_ITS ---
Care Management Progress Note 11/17-[employer] requested assistance with a PCP (Gelacio) f/u in 2-3 days to reassess for pneumonia. Referral faxed to [facility] this am.
== END 2018-11-16 22:42 | disposition home or self-care (01) ==
PROVIDERS: Emergency Provider Nurse Practitioner Family; PCP Specialist/Technologist Athletic Trainer
DX: J18.9 Pneumonia, unspecified organism (principal); J84.10 Pulmonary fibrosis, unspecified; I10 Essential (primary) hypertension
CPT/HCPCS: 36415; 71275; 80053; 93005; 94640; 99285; 83735; 83880; 84484; 85025; 85379; 85610; 85730; 93010; 99284; J3490; J7620

== ENCOUNTER 2018-12-04 00:42 | Outpatient (CLI) | payer MEDICARE, SELFPAY ==
--- NOTE | 2018-12-04 08:15 | MERGEMPI_ITS ---
*[facility]* [address] [place] [address] *Interpreting Group:* *[facility]* [address] [place] [address] Myocardial Perfusion Imaging - SPECT Raymond protocol Date of study: 12/04/2018 *PATIENT PRESENTATION* Height: 176.5cm (69.5in) Blood Pressure: Weight: 91.8kg (202lb) BSA: 2.14m^2 Referring physician: Colin Paulson Ordering physician: Gus Brizuela Impressions: Normal study after maximal exercise. Summary: 1. Myocardial perfusion imaging: No myocardial perfusion defects noted. 2. The calculated left ventricular ejection fraction after stress: 51%. LV global systolic function is normal. No left ventricular regional motion abnormality. 3. Stress: The target heart rate was achieved. Indication: R07.9. History: REASON FOR TESTING: PATIENT PRESENTED TO THE ER ON 11/16/18 AFTER 2 WEEKS OF COUGHING AND CHEST DISCOMFORT. HE STATES HE IS NOT FEELING BETTER. HE HAS HAD THE CHEST PRESSURE (3/10) FOR APPROXIMATELY 3 WEEKS. THIS PRESSURE IS NOT ASSOCIATED WITH ACTIVITY OR REST; IT IS MOSTLY CONSTANT IN NATURE BUT DOES SUBSIDE PERIODICALLY. HE REPORTS CHEST PRESSURE (3/10) UPON ARRIVAL TO TESTING TODAY. SMOKING STATUS: QUIT 1981. SMOKED FOR 30 YEARS 1PPD. EXERCISE ROUTINE: PATIENT IS VERY ACTIVE WITH DAILY OUTDOOR CHORES AND ADL'S. Risk factors: Family history of coronary artery disease. Hypertension. Cholesterol: 165mg/dl. HDL: 68mg/dl. LDL: 87mg/dl. Triglycerides: 99mg/dl. ALLERGIES: SULFA, PENICILLIN V, SALICYLATES, CAT DANDER. MEDICATIONS: MILLIPRED 5 G DAILY, FINASTERIDE 5 MG, LEVOTHYROXINE 75 MCG DAILY, ROPINIROLE 2 MG HS, TAMULOSIN 0.4 MG DAILY, LASIX DOSE UNKNOWN 3 TIMES A WEEK. Imaging Technique: Protocol: Raymond protocol. Acquisition: Gated SPECT; 1 day - rest/stress. The patient was imaged in the supine position. Attenuation correction used. Isotope administration: - Rest. Tc[99m]-sestamibi. Dose: 10.8mCi. Injection time: 08:30 AM. Injection to stress time: 00:45. - Stress. Tc[99m]-sestamibi. Dose: 33mCi. Injection time: 09:57 AM. 1-2 min before end of exercise Baseline ECG: SINUS BRADYCARDIA. HR 55 BPM. Stress protocol: + +---+ + !Stage !HR !BP (mmHg) ! + +---+ + !Baseline supine !55 !160/80 (107)! + +---+ + !Baseline standing !62 !166/80 (109)! + +---+ + !Stage I; 1.7mph, 10degrees; 3 min !107!160/88 (112)! + +---+ + !Stage II; 2.5mph, 12degrees; 3 min!120! ! + +---+ + !Peak stress !152! ! + +---+ + !Recovery; 1 min !85 !190/80 (117)! + +---+ + !Recovery; 3 min !84 !188/90 (123)! + +---+ + !Recovery; 6 min !69 !164/80 (108)! + +---+ + * Stress results: Maximal heart rate during stress was 152bpm (107% of maximal predicted heart rate). The maximal predicted heart rate was 142bpm. The target heart rate was achieved. The rate-pressure product for the peak heart rate and blood pressure was [id number] Hg/min. Stress ECG: STRESS TEST ENDED IN 6 MINUTES 23 SECONDS DUE TO FATIGUE. NORMAL HEART RATE AND BLOOD PRESSURE RESPONSE TO EXERCISE. MAX HEART RATE: 152. 107% OF TARGET HEART RATE ACHIEVED. MET'S: 7.62. PAC'S AND PVC'S WITH EXERCISE AND POST EXERCISE. PATIENT HAD CHEST PRESSURE (3/10) PRIOR TO STRESS TESTING AND REMAINED THE SAME THROUGHOUT TESTING. NO SIGNIFICANT ST SEGMENT CHANGES. FUNCTIONAL CAPACITY: ABOVE AVERAGE. Myocardial perfusion: Imaging information: gated. Left ventricular size is normal. No myocardial perfusion defects noted. Ventricular Function (Wall Motion): The calculated left ventricular ejection fraction after stress: 51%. LV global systolic function is normal. No left ventricular regional motion abnormality. Study data: Colin Paulson MD supervised and was readily available during the procedure. Study status: Routine. Consent: The risks, benefits, and alternatives to the procedure were explained to the patient and informed consent was obtained. Procedure: Initial setup. A baseline ECG was recorded. Surface ECG leads and manual cuff blood pressure measurements were monitored. Heart sounds: Normal. Lung sounds: Abnormal. Treadmill exercise testing was performed using the Raymond protocol. Study completion: All catheters inserted during the procedure were removed. The patient tolerated the procedure well and was discharged from the lab. Discharge: The patient left the laboratory in stable condition. Birthdate: Patient birthdate: 1940. Sex: Gender: male. Study date: Study date: 12/04/2018. Study time: 00:01 AM. Signature Documentation: - The imaging portion of this study was interpreted by Nuclear Dorr Operator Colin Paulson MD. - The imaging portion of this study was interpreted by Nuclear Radiologist Niraj Gonzalez MD. - The Stress ECG portion of this study was interpreted by Colin Paulson MD. Electronically signed by Colin Paulson 12/04/2018 14:57
== END 2018-12-04 01:02 ==
PROVIDERS: PCP Specialist/Technologist Athletic Trainer; Visit Provider Specialist/Technologist Athletic Trainer
DX: R07.89 Other chest pain (principal)
CPT/HCPCS: 78452; 93016; 93018; 93017

== ENCOUNTER 2018-12-18 00:27 | Outpatient (CLI) | payer MEDICARE, SELFPAY ==
--- NOTE | 2018-12-18 10:40 | MERGE_ITS ---
*[facility]* *[facility]* [address] [place] [address] Date of study: 12/18/2018 Transthoracic Echocardiography M-mode, complete 2D, complete spectral Doppler, and color Doppler *STUDY CONCLUSIONS* Summary: 1. Left ventricle: The cavity size was normal. Wall thickness was increased in a pattern of moderate LVH. Systolic function was normal. The estimated ejection fraction was 55-60%. Wall motion was normal; there were no regional wall motion abnormalities. 2. Right ventricle: The cavity size was normal. Systolic function was normal. 3. Left atrium: The atrium was mildly dilated. 4. Aortic valve: There was mild regurgitation. 5. Aortic root: The aortic root was mildly dilated (42 mm). 6. 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 *PATIENT PRESENTATION* Height: 177.8cm ((70in) ) S/D Pressure: 133 / 63 Weight: 89.8kg ((197.6lb) ) BSA: 2.12m^2 Test start time: 10:45 AM. Test stop time: 11:45 AM. PERFORMING Unknown PERFORMING [facility] ORDERING Gus Brizuela REFERRING Gus Brizuela SEARCHLIGHT OPERATOR RT Saravanan (Marcel)(RENETTA), ELLIE *PROCEDURE DATA* Procedure information: The patient was identified by two identifiers. This study was interpreted by [facility]. Pertinent images and digital data are archived for permanent storage and are available for subsequent review. Comparison was made to the study of 2017. Study status: Routine. Transthoracic echocardiography. M-mode, complete 2D, complete spectral Doppler, and color Doppler. A Transthoracic Echocardiogram was performed. Scanning was performed from the parasternal, apical, subcostal, and suprasternal notch acoustic windows. Images were obtained using an [id number] cardiac ultrasound machine. Image quality was adequate. Study completion: The patient tolerated the procedure well. There were no complications. History: PMH: Edema r60.9 *CARDIAC ANATOMY* Left ventricle: The cavity size was normal. Wall thickness was increased in a pattern of moderate LVH. Systolic function was normal. The estimated ejection fraction was 55-60%. Wall motion was normal; there were no regional wall motion abnormalities. Findings consistent with diastolic dysfunction. There was no evidence of elevated ventricular filling pressure by Doppler parameters. Aortic valve: Trileaflet; mildly thickened, mildly calcified leaflets. Mobility was not restricted. Doppler: Transvalvular velocity was within the normal range. There was no stenosis. There was mild regurgitation. VTI ratio of LVOT to aortic valve: 0.83. Valve area (VTI): 3.5cm^2. Indexed valve area (VTI): 1.6cm^2/m^2. Peak velocity ratio of LVOT to aortic valve: 0.61. Valve area (Vmax): 2.6cm^2. Indexed valve area (Vmax): 1.2cm^2/m^2. Mean velocity ratio of LVOT to aortic valve: 0.6. Valve area (Vmean): 2.5cm^2. Indexed valve area (Vmean): 1.2cm^2/m^2. Mean gradient (S): 4.4mm Hg. Peak gradient (S): 7.1mm Hg. Aorta: Aortic root: The aortic root was mildly dilated (42 mm). 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 Mitral valve: Mildly thickened leaflets. Mobility was not restricted. Doppler: Transvalvular velocity was within the normal range. There was no evidence for stenosis. There was mild regurgitation. Valve area by pressure half-time: 2.7cm^2. Indexed valve area by pressure half-time: 1.3cm^2/m^2. Left atrium: The atrium was mildly dilated. Right ventricle: The cavity size was normal. Systolic function was normal. Pulmonic valve: The pulmonary valve appears to be grossly normal. Doppler: Transvalvular velocity was within the normal range. There was no evidence for stenosis. There was mild regurgitation. Tricuspid valve: Structurally normal valve. Doppler: Transvalvular velocity was within the normal range. There was no evidence for stenosis. There was mild regurgitation. Pulmonary artery: Poorly visualized. Pulmonary systolic pressure was >= 35mm Hg. Right atrium: The atrium was normal in size. Pericardium: There was no pericardial effusion. Systemic veins: Inferior vena cava: Not well visualized. Baseline ECG: Sinus bradycardia. Measurements Left ventricle Value 04/16/2017 Reference LV ID, ED, PLAX 4.4 cm 4.7 3.5 - 6.0 LV ID, ES, PLAX 3.0 cm 3.4 2.1 - 4.0 LV PW thickness, ED, PLAX 1.3 cm 1.2 LV end-diastolic volume, 91 ml 79 1-p A2C LV ejection fraction, 1-p 57 % 47 A2C LV end-diastolic volume, 94 ml 110 1-p A4C LV ejection fraction, 1-p 52 % 52 A4C LV e', lateral 0.092 m/sec LV E/e', lateral 7 LV e', medial 0.075 m/sec LV E/e', medial 9 LV e', average 0.084 m/sec LV E/e', average 8 Ventricular septum Value 04/16/2017 Reference IVS thickness, ED, PLAX 1.7 cm 1.7 LVOT Value 04/16/2017 Reference LVOT ID, A-P 2.3 cm 2.2 LVOT area 4.2 cm^2 3.7 LVOT peak velocity, S 0.81 m/sec 0.83 LVOT mean velocity, S 0.61 m/sec LVOT VTI, S 25.7 cm 27.7 LVOT peak gradient, S 2.7 mm Hg LVOT mean gradient, S 1.6 mm Hg 1.4 Stroke volume (SV), LVOT 108 ml DP Stroke index (SV/bsa), 51 ml/m^2 LVOT DP Aortic valve Value 04/16/2017 Reference Aortic valve peak 1.3 m/sec velocity, S Aortic valve mean 1.02 m/sec velocity, S Aortic valve VTI, S 31.0 cm Aortic mean gradient, S 4.4 mm Hg Aortic peak gradient, S 7.1 mm Hg VTI ratio, LVOT/AV 0.83 0.71 Aortic valve area, VTI 3.5 cm^2 Velocity ratio, peak, 0.61 LVOT/AV Aortic valve area, peak 2.6 cm^2 velocity Velocity ratio, mean, 0.6 LVOT/AV Aortic valve area, mean 2.5 cm^2 velocity Aortic valve area/bsa, 1.2 cm^2/m^2 mean velocity Aorta Value 04/16/2017 Reference Aortic root ID, ED 4.2 cm 4.1 Ascending aorta ID, A-P, S 4.8 cm 4.4 RVOT Value 04/16/2017 Reference RVOT VTI, S 20.0 cm 17.4 Left atrium Value 04/16/2017 Reference LA ID, A-P, ES 3.2 cm LA ID/bsa, A-P 1.5 cm/m^2 <=2.2 LA area, ES, A4C (H) 24.4 cm^2 27 8.8 - 23.4 LA area, ES, A2C 22 cm^2 LA volume/bsa, ES, 1-p A4C 37 ml/m^2 38 LA volume, ES, 2-p 66 ml LA volume/bsa, ES, 2-p 31 ml/m^2 LA/aortic root ratio 0.76 0.82 Mitral valve Value 04/16/2017 Reference Mitral E-wave peak 0.68 m/sec 0.55 velocity Mitral A-wave peak 0.74 m/sec 0.57 velocity Mitral deceleration time (H) 282 ms 150 - 230 Mitral pressure half-time 82 ms 107 Mitral E/A ratio, peak 0.92 0.96 Mitral valve area, PHT, DP 2.7 cm^2 Tricuspid valve Value 04/16/2017 Reference Tricuspid regurg peak 2.9 m/sec 2.7 velocity Tricuspid peak RV-RA 33.7 mm Hg 29.4 gradient Right atrium Value 04/16/2017 Reference RA area, ES, A4C 13.8 cm^2 11.7 8.3 - 19.5 Pulmonic valve Value 04/16/2017 Reference Pulmonic regurg velocity, 1.09 m/sec 0.55 ED Legend: (L) and (H) anjel values outside specified reference range. I have personally reviewed the images and have reviewed and edited the reported findings. Electronically signed by Colin Paulson 12/18/2018 12:29
== END 2018-12-18 00:47 ==
PROVIDERS: PCP Specialist/Technologist Athletic Trainer; Visit Provider Specialist/Technologist Athletic Trainer
DX: I51.7 Cardiomegaly (principal); I35.1 Nonrheumatic aortic (valve) insufficiency; R60.9 Edema, unspecified
CPT/HCPCS: 93306

== ENCOUNTER 2019-01-27 11:15 | Outpatient (REF) | payer MEDICARE, SELFPAY ==
[2019-01-27 21:47] LABS: HCT 40.6 % (40.0-50.0); HGB 13.5 g/dL (13.5-17.5); Mean Corp. HGB Concentration 33.3 g/dL (32.0-36.0); Mean Corpuscular Hemoglobin 34.4 pg (27.0-33.0); Mean Corpuscular Volume 103.3 fL (80-95); Platelet Count 202 x1000/uL (130-400); RBC 3.93 m/cumm (4.50-6.00); RBC Distribution Width 12.3 % (11.8-14.1); White Blood Cell Count 10.83 k/cumm (4.4-10.8)
[2019-01-27 22:07] LABS: TSH (W/Ref FT4) 0.86 uIU/mL (0.358-3.74)
== END 2019-01-27 11:35 ==
LOC: NCHCN 11:15
PROVIDERS: PCP Specialist/Technologist Athletic Trainer; Visit Provider Specialist/Technologist Athletic Trainer
DX: E03.9 Hypothyroidism, unspecified (principal)
CPT/HCPCS: 85027; 84443

== ENCOUNTER 2019-04-03 17:27 | Emergency (ER) | payer MEDICARE, SELFPAY ==
[2019-04-03 17:36] VITALS: BP 125/57; PULSE 72; RESP 16; TEMP 37.5; O2SAT 100
--- NOTE | 2019-04-03 17:43 | ED.GENADUL_ITS ---
Discharge Plan Disposition Patient Disposition: HOME Condition: Stable Discharge Details Chief Complaint: Laceration Clinical Impression: Laceration of left leg Primary Care Provider: Gus Brizuela ED Provider: Flash Linder Home Meds and New Rx's Prescriptions: No Action levothyroxine 75 MCG tablet 75 mcg PO DAILY RF: 0 tamsulosin 0.4 MG capsule 1 tab PO HS RF: 0 ropinirole 2 MG tablet 2 mg PO HS RF: 0 finasteride 5 MG tablet 5 mg PO DAILY RF: 0 Millipred 5 MG tablet 5 mg PO DAILY RF: 0 Discharge Instructions Instructions: Laceration (ED), Skin Adhesive Care (ED) Additional Instructions: if redness spreads away from the wound, you have yellow/white discharge from the wound, fevers or severe pain return to the emergency department Medical Decision Making 78 yo male comes in with chief complaint of left anterior leg laceration after tripping while walking outside. did not hit his head or have loc and had no presyncope symptoms states it was purely mechanical. Hit his leg on a stick causing 5cm v shaped laceration. Will require sutures, utd on tetanus. has intact sensation and full rom of all joints pt's skin was tearing significantly with suturing so placed 5 sutures then tacked the rest of the skin down with skin adhesive. Return precautions given for signs of infection Differential Diagnosis laceration, abrasion HPI General Mode of arrival: ambulatory . Date/Time Provider Initiated Documentation: 04/03/19 17:27 . Limitations to Documentation: no limitations . Information obtained by: patient . History of Present Illness 78 year old M presents to the emergency department with the chief complaint of left leg laceration, and is localized to the left and lower extremity. No relieving factors improve symptom(s), No exacerbating factors reported . Patient did receive the following treatments prior to arrival, none Related Data Home Medications Medication Instructions Recorded Confirmed Millipred 5 mg PO DAILY 12/03/16 04/03/19 finasteride 5 mg PO DAILY 12/03/16 04/03/19 levothyroxine 75 mcg PO DAILY 12/03/16 04/03/19 ropinirole 2 mg PO HS 12/03/16 04/03/19 tamsulosin 1 tab PO HS 12/03/16 04/03/19 Allergies Allergy/AdvReac Type Severity Reaction Status Date / Time Sulfa (Sulfonamide Allergy Intermediate Unverified 04/03/19 17:57 Antibiotics) cat dander Allergy Mild Unverified 04/03/19 17:57 penicillin V Allergy Mild Unverified 04/03/19 17:57 salicylates AdvReac Mild up set Unverified 04/03/19 17:57 stomach General Stated Complaint: Laceration BRYCE: 4 Review of Systems Review of Systems All systems reviewed & are unremarkable except as noted in HPI and below Constitutional Denies chills, Denies fever(s) and Denies weakness Cardiovascular Denies chest pain and Denies dyspnea Respiratory Denies dyspnea Gastrointestinal Denies abdominal pain, Denies nausea and Denies vomiting Integumentary/Breasts Denies rash Neurologic Denies weakness Endocrine Denies heat intolerance PFS Social History Smoking/Tobacco Use Status: Former Tobacco Use Drug use: Never Do you feel safe at home: Yes Do you feel safe in your relationship?: Yes Exam Const General: no acute distress Orientation: alert HENMT Head: normal to inspection Ears: external ears normal General nose exam: external nose normal Mouth: moist mucous membranes Eyes General: appearance normal, both eyes and all related structures Neck Neck: normal visual inspection Resp Effort & Inspection: normal respiratory effort and able to speak in complete sentences Cardio Rate: regular rate Skin General skin exam: no rashes or lesions noted Neuro General: alert and oriented x3 Extrem General: full ROM Psych Mental Status: mental status grossly normal Course Vital Signs Temperature 37.5 C 04/03/19 17:36 Pulse 72 04/03/19 17:36 Respiratory Rate 16 04/03/19 17:36 Blood Pressure 125/57 L 04/03/19 17:36 Pulse Oximetry 100 04/03/19 17:36 Temperature 37.5 C 04/03/19 17:36 Temperature Source Temporal Artery Scan 04/03/19 17:36 Pulse 72 04/03/19 17:36 Respiratory Rate 16 04/03/19 17:36 Respiratory Effort 04/03/19 17:40 Blood Pressure 125/57 L 04/03/19 17:36 Pulse Oximetry 100 04/03/19 17:36 Oxygen Delivery Method Room Air 04/03/19 17:36 Oxygen Flow Rate 0 04/03/19 17:36 Procedures Laceration Laceration 1: Site: lower extremity Side (If applicable): left Size (cm): 5 Description: stellate Depth: simple, single layer Local Anesthetic: Lidocaine 1% Amount of anesthesia used (mL): 10 Pre-repair: wound explored and irrigated extensively Skin layer closed with: other (chromic gut) Size (cm): 5-0 Number of sutures: 5 Technique: simple, interrupted
== END 2019-04-03 18:38 | disposition home or self-care (01) ==
PROVIDERS: Emergency Provider Emergency Medicine; PCP Specialist/Technologist Athletic Trainer
DX: S81.812A Laceration without foreign body, left lower leg, initial encounter (principal); W01.0XXA Fall on same level from slipping, tripping and stumbling without subsequent striking against object, initial encounter
CPT/HCPCS: 12002

== ENCOUNTER 2019-04-08 12:31 | Outpatient (REF) | payer MEDICARE, SELFPAY ==
[2019-04-08 21:15] LABS: HCT 37.1 % (40.0-50.0); HGB 12.6 g/dL (13.5-17.5); Mean Corpuscular Hemoglobin 34.1 pg (27.0-33.0); Mean Corpuscular Volume 100.3 fL (80-95); Mean Platelet Volume 10.9 fL (8.0-11.0); Platelet Count 203 x1000/uL (130-400); RBC Distribution Width 11.9 % (11.8-14.1); White Blood Cell Count 7.89 k/cumm (4.4-10.8)
[2019-04-08 21:32] LABS: ALT 9 U/L (12-78); AST 6 U/L (15-37); Albumin 3.6 g/dL (3.4-5.0); Alkaline Phosphatase 55 U/L (46-116); Anion Gap 7.2 mmol/L (3-11); BUN 27 mg/dL (7-18); CO2 29.8 mmol/L (21.0-32.0); CREATININE 1.46 mg/dL (0.70-1.30); Calcium 8.9 mg/dL (8.5-10.1); Chloride 104 mmol/L (98-107); Glucose 112 mg/dL (70-100); Potassium 3.8 mmol/L (3.5-5.1); Sodium 141 mmol/L (136-145); Total Protein 6.4 g/dL (6.4-8.2)
== END 2019-04-08 12:51 ==
LOC: NCHCN 12:31
PROVIDERS: PCP Specialist/Technologist Athletic Trainer; Visit Provider Specialist/Technologist Athletic Trainer
DX: D64.9 Anemia, unspecified (principal); R60.9 Edema, unspecified; M35.3 Polymyalgia rheumatica; R94.4 Abnormal results of kidney function studies
CPT/HCPCS: 80053; 85027

== ENCOUNTER 2019-05-02 13:15 | Emergency (ER) | payer MEDICARE, SELFPAY ==
[2019-05-02 13:22] VITALS: BP 140/38; PULSE 76; RESP 24; TEMP 37.2; O2SAT 97
--- NOTE | 2019-05-02 13:40 | W.ED.GENAD ---
Discharge Plan Disposition Patient Disposition: HOME Condition: Fair Discharge Details Chief Complaint: Trauma Clinical Impression: Closed rib fracture Primary Care Provider: Gus Brizuela ED Provider: Raven Vega Home Meds and New Rx's Prescriptions: New tramadol 50 mg tablet 50 mg PO TID PRN (Reason: pain) Qty: 7 RF: 0 Continued levothyroxine 75 MCG tablet 75 mcg PO DAILY RF: 0 tamsulosin 0.4 MG capsule 1 tab PO HS RF: 0 ropinirole 2 MG tablet 2 mg PO HS RF: 0 finasteride 5 MG tablet 5 mg PO DAILY RF: 0 ibuprofen 200 mg Tablet 400 mg PO PRN PRNRF: 0 Discharge Instructions Instructions: Rib Fracture (ED) Additional Instructions: Encourage hydration. Tylenol and ibuprofen as needed for discomfort. You may splint the rib to help with discomfort continuing with performing deep breathing exercises. Please use incentive spirometer 4-5 times daily to help open wounds and to rest. Encourage deep breathing frequently and frequent ambulation. You may augment the pain medication with tramadol as prescribed. Please take this medication only as prescribed. Do not drive while taking this medication. Please follow-up with primary care this week for reevaluation and to discuss the chronic wound. If you develop fever/chills, difficulty breathing, shortness of breath or the new/worsening symptoms please seek care urgently once again. Referrals: Gus Brizuela [Primary Care Provider] - Medical Decision Making Patient 78-year-old male presents today with chief complaint of right posterior inferior rib pain. He reports that he fell from a ladder 2 days ago at that time, he reports that he was on a ladder working on the side of his house when a piece of siding came back striking the ladder and causing him to fall. Reports that he fell backward landing on the right side of his back. Denies other injuries from the incident. Did not strike his head. No loss of conscious. Denies any headache, visual changes. Denies any shortness of breath or difficulty breathing. Does report that deep inspiration can cause increased discomfort to the right posterior inferior aspect of his ribs. Noted ecchymosis over this area. No specific abrasion to the posterior aspect of the right elbow but feels this is healing up well. No pain with range of motion of this. Denies any fevers or chills. On exam, patient appears nontoxic. He is breathing comfortably. Vital signs significant for blood pressure of 140/38, otherwise within normal limits. He is point tender in the posterior inferior aspect of the right side of the ribs. No midline tenderness. No pain with paraspinal palpation. Good range of motion. No pain in the cervical neck. Abdomen is benign. Normal cardiac and respiratory exam. Patient is tender quite inferiorly, over CVA. I am concerned for possible kidney injury here. He denies any hematuria or change in urinary habits. Plan for CT of chest, abdomen, pelvis. Discussed this plan with the patient is in agreement. FINDINGS: Lungs: Mild scarring both lungs. No consolidation. Pleural space: Unremarkable. No pneumothorax. No pleural effusion. Heart: Coronary artery calcifications noted. Aorta: Aorta demonstrates mild atherosclerotic calcification. Lymph nodes: Unremarkable. No enlarged lymph nodes. Bones/joints: Right posterior eighth rib fracture. Soft tissues: Unremarkable. IMPRESSION: Right posterior eighth rib fracture. FINDINGS: Liver: Several hepatic cysts. Gallbladder and bile ducts: Normal. No calcified stones. No ductal dilation. Pancreas: Normal. No ductal dilation. Spleen: Normal. No splenomegaly. Adrenals: Normal. No mass. Kidneys and ureters: Nonobstructing calyceal stones at the kidneys. No hydronephrosis. No ureteral stones. Stomach and bowel: Colonic diverticula present. Appendix: No evidence of appendicitis. Intraperitoneal space: Normal. No free air. No significant fluid collection. Vasculature: Normal. No abdominal aortic aneurysm. Lymph nodes: Normal. No enlarged lymph nodes. Bladder: Unremarkable as visualized. Reproductive: Unremarkable as visualized. Bones/joints: Previous right hip replacement. Thoracolumbar scoliosis. Soft tissues: Fat containing umbilical hernia without incarceration. IMPRESSION: No acute abnormality. Discussed these findings with the patient. Encourage deep breathing. Incentive spirometer was given to the patient by nursing staff instructions on how to use this. Encourage hydration. Advised Tylenol and ibuprofen as needed for discomfort. Reports that while he has been using this, the pain has persisted he is requesting something stronger for discomfort. Patient given prescription for tramadol to help with pain, particular for night. I have also not given any narcotics while being here as the patient is going to drive himself home. Patient given strict return precaution. Will call primary care tomorrow to follow-up this week for reevaluation. Patient also has a chronic healing wound to the left lower extremity along the lateral aspect. He reports this appears the same as when he was last seen by his primary care physician if anything, reports it is improved. We will discuss this further with them at his upcoming visit. All his questions and concerns were addressed and he is in agreement this plan. HPI General Mode of arrival: ambulatory. Date/Time Provider Initiated Documentation: 05/02/19 13:23. Limitations to Documentation: no limitations. Information obtained by: patient and RN notes reviewed. History of Present Illness 78 year old M presents to the emergency department with the chief complaint of Right posterior inferior rib pain after fall, described as severe, with intensity rated at >10. Quality is described as stabbing, and is localized to the back. Patient reports no radiation. Patient started experiencing this day(s) (2) and it has been intermittent. No relieving factors improve symptom(s), Movement worsens symptoms . Patient notes no other symptoms.; denies chest pain, cough, diaphoresis, fever/chills, headaches, loss of appetite, nausea/vomiting, rash, shortness of breath and weakness. Patient did receive the following treatments prior to arrival, NSAID Related Data Home Medications Medication Instructions Recorded Confirmed finasteride 5 mg PO DAILY 12/03/16 05/02/19 levothyroxine 75 mcg PO DAILY 12/03/16 05/02/19 ropinirole 2 mg PO HS 12/03/16 05/02/19 tamsulosin 1 tab PO HS 12/03/16 05/02/19 ibuprofen 400 mg PO PRN PRN 05/02/19 05/02/19 tramadol 50 mg PO TID PRN #7 tab 05/02/19 Previous Rx's Medication Instructions Recorded tramadol 50 mg PO TID PRN #7 tab 05/02/19 Allergies Allergy/AdvReac Type Severity Reaction Status Date / Time Sulfa (Sulfonamide Allergy Intermediate Unverified 05/02/19 13:28 Antibiotics) cat dander Allergy Mild Unverified 05/02/19 13:28 penicillin V Allergy Mild Unverified 05/02/19 13:28 salicylates AdvReac Mild up set Unverified 05/02/19 13:28 stomach General Stated Complaint: Trauma BRYCE: 3 Review of Systems Constitutional Reports as per HPI, Denies chills, Denies fatigue, Denies fever(s), Denies headache(s) and Denies weakness Eyes Reports as per HPI, Denies blurry vision, Denies change in vision and Denies loss of vision ENT Denies abnormal hearing and Denies headache(s) Cardiovascular Reports as per HPI, Denies chest pain and Denies dyspnea Respiratory Reports as per HPI, Denies cough, Reports pain on inspiration, Reports pain with cough and Denies dyspnea Gastrointestinal Reports as per HPI, Denies abdominal pain, Denies nausea and Denies vomiting Genitourinary Reports as per HPI and Denies urinary incontinence Musculoskeletal Reports as per HPI Integumentary/Breasts Reports as per HPI and Denies rash Neurologic Reports as per HPI, Denies abnormal hearing, Denies abnormal movements, Denies abnormal speech, Denies headache(s), Denies lack of coordination, Denies focal weakness, Denies loss of vision, Denies seizure-like activity, Denies paresthesias and Denies weakness Endocrine Denies fatigue FOR[facility]LY [facility], [facility] Social History Smoking/Tobacco Use Status: Former Tobacco Use Alcohol Intake: never Drug use: Never Do you feel safe at home: Yes Do you feel safe in your relationship?: Yes Exam Const General: cooperative, healthy appearing, comfortable, no acute distress, well developed and well groomed Nutritional Appearance: average body habitus and well nourished Orientation: alert, awake and oriented x3 HENMT Head: normal to inspection, no palpable skull fracture, normocephalic and atraumatic Ears: hearing grossly normal bilaterally, external ears normal and TM's normal bilaterally General nose exam: external nose normal Mouth: oral mucosae normal, lip normal and tongue normal Throat: posterior oropharynx normal Eyes General: appearance normal, both eyes and all related structures Visual Kent: normal visual kent by confrontation Alignment and Position: alignment normal Periorbital: periorbital findings normal Eyelids: eyelids normal Conjunctivae: conjunctivae normal Pupils: PERRL EOM: EOM intact bilaterally Neck Neck: normal visual inspection, full ROM, no lymphadenopathy, no meningeal signs, trachea midline and supple Chest Chest: normal inspection of the chest, normal palpation of entire chest wall, no crepitus and localized rib tenderness with anteroposterior compression (posterior inferior right rib pain with palpation) Resp Effort & Inspection: normal respiratory effort, able to speak in complete sentences and no respiratory distress Auscultation: clear to auscultation bilaterally, no rales, no rhonchi and no wheezes Cardio Rate: regular rate Rhythm: regular rhythm Heart Sounds: S1 normal and S2 normal GI Inspection: normal to inspection, no abdominal wall ecchymosis, no edema and non-distended Palpation: soft, no hepatosplenomegaly, not firm, no guarding, no pulsatile masses, not rigid and nontender Auscultation: normal bowel sounds Back/Spine/Pelvis Back: No CVA tenderness Cervical Spine: normal cervical lordosis and cervical ROM normal Thoracic/Lumbar Spine: thoracic and lumbar spine normal to inspection, thoraco-lumbar ROM normal, No thoraco-lumbar ROM limited, No thoraco-lumbar spasm and No thoracic spinal tenderness Pelvis: no pain with anterior-posterior compression and no pain with lateral compression Skin General skin exam: ecchymosis (2cm circumfrential ecchymotic area right posterior chest wall) Trauma: abrasion (posterior right elbow, full ROM, no evidence of infection) Neuro General: alert, awake, oriented x3, gait normal, tone normal and moves all extremities Cranial Nerves: CN's II-XI intact bilaterally Cognition: normal cognition Speech: speech normal Gait: normal gait Motor: muscle tone normal throughout and strength 5/5 throughout Sensory Exam: no sensory deficits noted (no saddle paresthesias) Extrem General: normal to inspection, full ROM, normal capillary refill, no calf tenderness and edema Laterality: bilateral (2+ pitting edema) Left lower extremity: abnormal to inspection (chronic appearing open LLE wound) Psych Appearance: grossly normal and well kempt Mental Status: mental status grossly normal Speech and Movement: speech and movement normal Course Vital Signs Temperature 37.2 C 05/02/19 13:22 Pulse 76 05/02/19 13:22 Respiratory Rate 24 05/02/19 13:22 Blood Pressure 140/38 L 05/02/19 13:22 Pulse Oximetry 97 05/02/19 13:22 Temperature 37.2 C 05/02/19 13:22 Temperature Source Temporal Artery Scan 05/02/19 13:22 Pulse 76 05/02/19 13:22 Respiratory Rate 24 05/02/19 13:22 Respiratory Effort Non-Labored 05/02/19 13:35 Respiratory Depth Normal 05/02/19 13:27 Respiratory Pattern Normal 05/02/19 13:27 Blood Pressure 140/38 L 05/02/19 13:22 Blood Pressure Position Supine 05/02/19 13:22 Pulse Oximetry 97 05/02/19 13:22 Oxygen Delivery Method Room Air 05/02/19 13:22 Oxygen Flow Rate 0 05/02/19 13:22 Pain Level 10 05/02/19 13:22
[2019-05-02] MEDS: Ibuprofen 600 MG TAB PO (13:52)
[2019-05-02] MEDS: Acetaminophen 325 MG TAB 650 MG PO (13:52)
[2019-05-02 13:54] LABS: Abs Immature Grans 0.02 k/cumm (0.0-0.09); Absolute Basophil Count 0.01 k/cumm (0.0-0.2); Absolute Monocyte Count 0.64 k/cumm (0.11-0.7); Basophils % 0.1; Eosinophils % 1.4; HCT 36.6 % (40.0-50.0); HGB 12.2 g/dL (13.5-17.5); Immature Grans % 0.3; Mean Corp. HGB Concentration 33.3 g/dL (32.0-36.0); Mean Corpuscular Hemoglobin 34.5 pg (27.0-33.0); Mean Corpuscular Volume 103.4 fL (80-95); Mean Platelet Volume 9.5 fL (8.0-11.0); Monocytes % 9.1; Neutrophils % 72.1; Platelet Count 191 x1000/uL (130-400); RBC 3.54 m/cumm (4.50-6.00); RBC Distribution Width 12.3 % (11.8-14.1); White Blood Cell Count 7.07 k/cumm (4.4-10.8)
[2019-05-02] MEDS: Omnipaque 350 MG/ML 100 ML BTL IJ (13:57)
[2019-05-02] MEDS: Normal Saline Flush 10 ML SYR IVP (14:04)
[2019-05-02 14:08] LABS: ALT 18 U/L (16-63); AST 17 U/L (15-37); Albumin 3.6 g/dL (3.4-5.0); Alkaline Phosphatase 61 U/L (46-116); BUN 15 mg/dL (7-18); Bilirubin, Total 0.7 mg/dL (0.2-1.0); CREATININE 1.26 mg/dL (0.70-1.30); Calcium 8.5 mg/dL (8.5-10.1); Chloride 103 mmol/L (98-107); Estimated GFR 55.35 (mL/min/1.73m2); Glucose 96 mg/dL (70-100); Potassium 3.6 mmol/L (3.5-5.1); Sodium 141 mmol/L (136-145); Total Protein 6.5 g/dL (6.4-8.2)
--- NOTE | 2019-05-02 14:10 | DI.CT_ITS ---
SYMPTOM/DIAGNOSIS: POSTERIOR RIGHT INFERIOR RIB PAIN AFTER FALL [address]: Comparison is made with 16 November 2018. There is a right 8th rib fracture posteriorly. No pneumothorax, infiltrate or effusion is seen. The spine and sternum appear intact. The aorta is tortuous and shows mild calcification. The ascending aorta measures 5 cm in diameter proximally. There is again noted to be a fatty density lesion in the left lower lobe which may represent a hamartoma IMPRESSION: Right 8th rib fracture. ABDOMEN AND PELVIC CT:. There are a few small liver cysts. There is no evidence of liver or splenic injury. The gallbladder, kidneys, pancreas and adrenals are unremarkable. There is a right hip prosthesis. No spine or pelvic fracture is seen. There are diverticula of the sigmoid colon without evidence of diverticulitis. There is no free air or free fluid. IMPRESSION: No acute abnormality.
--- NOTE | 2019-05-02 15:09 | DI.VRAD_ITS ---
EXAM: CT Chest With Contrast EXAM DATE/TIME: 05/02/2019 1:39 PM CLINICAL HISTORY: 78 years old, male; Other: Posterior right inferior rib pain after fall 2 days ago; Prior surgery; Surgery date: 6+ months; Surgery type: R hip replacement TECHNIQUE: Imaging protocol: Computed tomography images of the chest with intravenous contrast. Radiation optimization: All CT scans at this facility use at least one of these dose optimization techniques: automated exposure control; mA and/or kV adjustment per patient size (includes targeted exams where dose is matched to clinical indication); or iterative reconstruction. COMPARISON: CT Private^ROUTINE ABDOMEN PELVIS WITH CONTRAST (Adult) 04/30/2018 11:01 PM FINDINGS: Lungs: Mild scarring both lungs. No consolidation. Pleural space: Unremarkable. No pneumothorax. No pleural effusion. Heart: Coronary artery calcifications noted. Aorta: Aorta demonstrates mild atherosclerotic calcification. Lymph nodes: Unremarkable. No enlarged lymph nodes. Bones/joints: Right posterior eighth rib fracture. Soft tissues: Unremarkable. IMPRESSION: Right posterior eighth rib fracture. EXAM: CT Abdomen and Pelvis With Contrast EXAM DATE/TIME: 05/02/2019 1:39 PM CLINICAL HISTORY: 78 years old, male; Other: Posterior right inferior rib pain after fall 2 days ago; Prior surgery; Surgery date: 6+ months; Surgery type: R hip replacement TECHNIQUE: Imaging protocol: Computed tomography images of the abdomen and pelvis with intravenous contrast. Radiation optimization: All CT scans at this facility use at least one of these dose optimization techniques: automated exposure control; mA and/or kV adjustment per patient size (includes targeted exams where dose is matched to clinical indication); or iterative reconstruction. Contrast material: OMNIPAQUE 350; Contrast volume: 100 ml; Contrast route: IV; COMPARISON: CT Private^ROUTINE ABDOMEN PELVIS WITH CONTRAST (Adult) 04/30/2018 11:01 PM FINDINGS: Liver: Several hepatic cysts. Gallbladder and bile ducts: Normal. No calcified stones. No ductal dilation. Pancreas: Normal. No ductal dilation. Spleen: Normal. No splenomegaly. Adrenals: Normal. No mass. Kidneys and ureters: Nonobstructing calyceal stones at the kidneys. No hydronephrosis. No ureteral stones. Stomach and bowel: Colonic diverticula present. Appendix: No evidence of appendicitis. Intraperitoneal space: Normal. No free air. No significant fluid collection. Vasculature: Normal. No abdominal aortic aneurysm. Lymph nodes: Normal. No enlarged lymph nodes. Bladder: Unremarkable as visualized. Reproductive: Unremarkable as visualized. Bones/joints: Previous right hip replacement. Thoracolumbar scoliosis. Soft tissues: Fat containing umbilical hernia without incarceration. IMPRESSION: No acute abnormality. Dictated and Authenticated by: Darius Lopez MD. Ordering:EZEQUIEL Carbajal MD
[2019-05-02 15:17] VITALS: BP 130/59; PULSE 68; RESP 15; O2SAT 100
[2019-05-02 15:29] VITALS: BP 130/59; PULSE 68; RESP 15; O2SAT 100
== END 2019-05-02 15:28 | disposition home or self-care (01) ==
PROVIDERS: Emergency Provider Physician Assistant; PCP Specialist/Technologist Athletic Trainer
DX: S22.31XA Fracture of one rib, right side, initial encounter for closed fracture (principal); K76.89 Other specified diseases of liver; K42.9 Umbilical hernia without obstruction or gangrene; W11.XXXA Fall on and from ladder, initial encounter
CPT/HCPCS: 74177; 80053; 99283; 71260; 85025; 99282; J3490

== ENCOUNTER 2019-06-24 11:48 | Emergency (ER) | payer MEDICARE, SELFPAY ==
[2019-06-24 11:54] VITALS: BP 164/69; PULSE 65; RESP 14; TEMP 36.5; O2SAT 99
--- NOTE | 2019-06-24 12:24 | W.ED.GENAD ---
Discharge Plan Disposition Patient Disposition: HOME Discharge Details Chief Complaint: Laceration Clinical Impression: Noninfected skin tear of right lower extremity Primary Care Provider: Gus Brizuela ED Provider: Dami Guan Home Meds and New Rx's Prescriptions: No Action acetaminophen [Tylenol Extra Strength] 500 mg Tablet 1,000 mg PO Q4H PRNRF: 0 levothyroxine 75 MCG tablet 75 mcg PO DAILY RF: 0 tamsulosin 0.4 MG capsule 1 tab PO HS RF: 0 ropinirole 2 MG tablet 2 mg PO HS RF: 0 finasteride 5 MG tablet 5 mg PO DAILY RF: 0 ibuprofen 200 mg Tablet 400 mg PO PRN PRNRF: 0 tramadol 50 mg tablet 50 mg PO TID PRN (Reason: pain) Qty: 7 RF: 0 Discharge Instructions Instructions: Skin Tear (ED) Additional Instructions: Your wound has been covered with a special dressing. Keep in place until you see Dr. Hobbs tomorrow. Keep area elevated. If your bleeding or pain increase over the next 24 hours he must return to the emergency department. Return should you develop fevers or chills. Referrals: Delaney Saeman MD [ [facility] STAFF PHYSICIAN] - 06/25/19 1:00 am Discharge Data Discharge Date/Time-TO BE ENTERED AT DEPARTURE: 06/24/19 15:10 Medical Decision Making Patient presents to the emergency department with a large skin tear to the right lower extremity. Exposed subcutaneous tissue noted. Bleeding controlled with direct pressure along with local infiltration of lidocaine 1% with epinephrine. Wound cleaned and irrigated. Discussed case with Dr. Hobbs who evaluated patient in the emergency department. She will follow-up with him in the office tomorrow at 1 PM. In the meantime I covered the wound with Adaptic dressing along with a bulky 4 x 4 and Covan. Multiple skin flaps debrided back to healthy tissue. Dr. Hobbs does not want antibiotics at this time. Bleeding controlled and he is stable for discharge HPI General Date/Time Provider Initiated Documentation: 06/24/19 12:24. HPI Narrative: Patient is a 78-year-old male not on anticoagulation who presents to the emergency department with a right lower leg/fernandez injury. Patient states that he was lifting a wooden pallet yesterday evening around 6:30 PM when he dropped the pot striking his lower fernandez. He sustained a laceration/skin tear with which he has been unable to control the bleeding. He reports pain over the area. No numbness and tingling of the foot. Related Data Home Medications Medication Instructions Recorded Confirmed finasteride 5 mg PO DAILY 12/03/16 06/24/19 levothyroxine 75 mcg PO DAILY 12/03/16 06/24/19 ropinirole 2 mg PO HS 12/03/16 06/24/19 tamsulosin 1 tab PO HS 12/03/16 06/24/19 ibuprofen 400 mg PO PRN PRN 05/02/19 06/24/19 tramadol 50 mg PO TID PRN #7 tab 05/02/19 06/24/19 acetaminophen [Tylenol Extra 1,000 mg PO Q4H PRN 06/24/19 06/24/19 Strength] Previous Rx's Medication Instructions Recorded tramadol 50 mg PO TID PRN #7 tab 05/02/19 Allergies Allergy/AdvReac Type Severity Reaction Status Date / Time Sulfa (Sulfonamide Allergy Intermediate Unverified 06/24/19 11:57 Antibiotics) cat dander Allergy Mild Unverified 06/24/19 11:57 penicillin V Allergy Mild Unverified 06/24/19 11:57 salicylates AdvReac Mild up set Unverified 06/24/19 11:57 stomach General Stated Complaint: Laceration BRYCE: 4 Review of Systems Musculoskeletal Musculoskeletal: Denies numbness and Denies tingling Neurologic Neurologic: Denies focal weakness, Denies numbness, Denies tingling and Denies paresthesias Hematologic/Lymphatic Hematologic/Lymphatic: Denies easy bleeding and Denies easy bruising [facility] Social History Smoking/Tobacco Use Status: Former Tobacco Use Alcohol Intake: never Drug use: Never Substance use type: does not use Do you feel safe at home: Yes Do you feel safe in your relationship?: Yes Exam Const General: cooperative, healthy appearing and comfortable Orientation: alert, awake and oriented x3 HENMT Head: normal to inspection Resp Effort & Inspection: normal respiratory effort and able to speak in complete sentences Cardio Pulses: normal peripheral pulses Skin Trauma: laceration Neuro Motor: muscle tone normal throughout Sensory Exam: no sensory deficits noted Extrem Other: Large skin tear is getting down to the subcutaneous. Skin tear measures greater than 12 cm in length and 6 cm in width. Bleeding controlled with direct pressure. Course Vital Signs Vital signs: Vital Signs Temperature 36.5 C 06/24/19 11:54 Pulse 65 06/24/19 11:54 Respiratory Rate 14 06/24/19 11:54 Blood Pressure 164/69 H 06/24/19 11:54 Pulse Oximetry 99 06/24/19 11:54 Temperature 36.5 C 06/24/19 11:54 Temperature Source Temporal Artery Scan 06/24/19 11:54 Pulse 65 06/24/19 11:54 Respiratory Rate 14 06/24/19 11:54 Respiratory Effort Non-Labored 06/24/19 11:56 Blood Pressure 164/69 H 06/24/19 11:54 Blood Pressure Position Sitting 06/24/19 11:54 Pulse Oximetry 99 06/24/19 11:54 Oxygen Delivery Method Room Air 06/24/19 11:54 Oxygen Flow Rate 0 06/24/19 11:54 Pain Level 7 06/24/19 11:54
[2019-06-24 15:12] VITALS: BP 164/69; PULSE 65; RESP 14; TEMP 36.5; O2SAT 99
== END 2019-06-24 15:10 | disposition home or self-care (01) ==
PROVIDERS: Emergency Provider Physician Assistant; PCP Specialist/Technologist Athletic Trainer
DX: S81.801A Unspecified open wound, right lower leg, initial encounter (principal); W22.8XXA Striking against or struck by other objects, initial encounter
CPT/HCPCS: 99282

== ENCOUNTER → 2019-06-25 12:52 | Outpatient (BNVA) | payer MEDICARE, SELFPAY | PROVIDERS: PCP Specialist/Technologist Athletic Trainer; Referring Provider Specialist/Technologist Athletic Trainer; Visit Provider Surgery | DX: S81.801A Unspecified open wound, right lower leg, initial encounter (principal); W22.8XXA Striking against or struck by other objects, initial encounter; G20 Parkinson's disease | CPT/HCPCS: 99201; 99213 ==

== ENCOUNTER → 2019-06-29 12:51 | Outpatient (BNVA) | payer MEDICARE, SELFPAY | PROVIDERS: PCP Specialist/Technologist Athletic Trainer; Referring Provider Specialist/Technologist Athletic Trainer; Visit Provider Surgery | DX: R60.0 Localized edema (principal); S81.801A Unspecified open wound, right lower leg, initial encounter; W22.8XXA Striking against or struck by other objects, initial encounter | CPT/HCPCS: 99213 ==

== ENCOUNTER 2019-07-01 01:20 | Outpatient (RCR) | payer MEDICARE, SELFPAY | END 2019-07-08 23:59 | disposition home or self-care (01) | LOC: INF 01:20 | PROVIDERS: PCP Specialist/Technologist Athletic Trainer; Visit Provider Surgery | DX: R69 Illness, unspecified (principal) ==

== ENCOUNTER 2019-07-01 13:27 | Inpatient (IN) | payer MEDICARE, SELFPAY ==
[2019-07-01] VITALS (10 sets, daily range): BP systolic 105–145; BP diastolic 34–75; PULSE 62–76; RESP 12–18; TEMP 36.2–36.8; O2SAT 97–100
[2019-07-01] MEDS: Lactated Ringers 1,000 ML 100 ML IV (11:54)
[2019-07-01] MEDS: Acetaminophen 500 MG TAB 1000 MG PO (11:56)
[2019-07-01] MEDS: Gabapentin 300 MG CAP PO (11:56)
[2019-07-01] MEDS: cefTRIAXone 2 GM/50 ML BAG IVPB (12:52)
--- NOTE | 2019-07-01 13:26 | W.PM.OP ---
Date of service: 07/01/19 Time of Service: 13:26 Operative Note Operative Note DATE OF PROCEDURE: 07/01/19 PRE-OP DIAGNOSIS: traumatic wound w/ subsequent infection POST-OP DIAGNOSIS: same PROCEDURE: I & D culture wound vac palcemnt SURGEON: Natasha Polanco ANESTHESIA: spinal ESTIMATED BLOOD LOSS: 10 PATHOLOGY: other COMPLICATIONS: None Patient was transported to: PACU Procedure Description: dictated high fluid burden wound [id number] wet to dry and mepelex cannot handle fluid/exudate burden. Needs to NPWS to handle fluids and speed healing.
--- NOTE | 2019-07-01 13:45 | DI.RAD_ITS ---
EXAM: XR PORTABLE CHEST AP CLINICAL HISTORY: wheezes TECHNIQUE: COMPARISON: No exams were available for comparison FINDINGS: Portable AP chest at 1342 hours. Is not enlarged. There are apparent chronic fibrotic changes. No definite acute consolidation. Question interval increase in pulmonary interstitial markings in ivy rison prior study November 09, 2018. IMPRESSION: Question interval increase in prominence of pulmonary interstitial markings in a diffuse pattern. Fi ndings may in part be due to technique. No focal consolidation seen. Follow-up PA and lateral chest recommended.
[2019-07-01] MEDS: Normal Saline 1,000 ML 30 ML IV (14:59)
--- NOTE | 2019-07-01 15:13 | NUR.NOTE ---
Nursing Note: Pt arrived from PACU. Transferred to bed via hover mat. Wound vac in place and running. [place]aranjo in patent. Pt had spinal, can not wiggle toes. Oriented to room and call system.
[2019-07-01] MEDS: Normal Saline Flush 10 ML SYR IVP (17:16)
[2019-07-01] MEDS: HYDROmorphone 2 MG/ML VIAL 0.5 MG IVP ×2 (17:16→18:26)
[2019-07-01] MEDS: oxyCODONE 5 MG TAB PO (20:02)
[2019-07-01] MEDS: ACETAMINOPHEN 1,000 MG/100 ML BTL 400 MG IVPB (20:11)
[2019-07-01] MEDS: rOPINIRole 1 MG TAB 2 MG PO (22:28)
[2019-07-01] MEDS: Tamsulosin 0.4 MG CAPCR PO (22:28)
[2019-07-02] MEDS: ACETAMINOPHEN 1,000 MG/100 ML BTL 400 MG IVPB ×2 (03:30→12:13)
--- NOTE | 2019-07-02 06:55 | ROE_ITS ---
REPORT OF OPERATIVE PROCEDURE DATE OF SURGERY July 01, 2019 PREOPERATIVE DIAGNOSIS Infected traumatic wound. POSTOPERATIVE DIAGNOSIS Infected traumatic wound. PROCEDURE Debridement, irrigation and wound VAC placement. SURGEON Natasha Polanco M.D. ANESTHESIA Spinal and sedation. ESTIMATED BLOOD LOSS 10 cc. CULTURES Cultures were taken. CONDITION The patient tolerated the procedure well without complication. Mr. Solorzano is a 78-year-old male who sustained a traumatic wound originally on 06/24/19. He has sub sequently developed a wound infection that is refractory to outpatient oral antibiotics. He was start ed on IV antibiotics and he is here today for debridement as this is too large to debride in the clin ic. He was doing wet-to-dry dressing changes and Mepilex dressing changes and he has pretty signific ant fluid burden. He does have pretty significant chronic lower extremity edema. His cardiac status i s negative. Today he requires wound debridement. Informed consent was obtained, explaining the risks and benefits of the procedure including, but not limited to bleeding, infection, scaring, the need for further de bridements, complications by anesthesia and other unforetold complications. The patient was marked i n preop. PROCEDURE DESCRIPTION: The patient was brought to the Operating Room Suite. A spinal anesthetic was administered per the Dep artment of Anesthesia. The patient was then placed in the supine position. He was prepped and draped in the usual sterile fa shion using Betadine scrub solution. Timeout was performed. The wound was cultured prior to prepping . The wound was interrogated. It was down to the muscle. There were no cavities. There were no flaps. The bone was intact. The wound is 11 cm at its longest. 5 cm in its widest and the depth of about 1 cm. The wound is sharply debrided of all infected and nonviable tissue removed. Electrocautery was used t o provide hemostasis. This was then irrigated with 2 liters of saline. Wound VAC was then cut to the appropriate size and placed, and secured with a Tegaderm style dressing, and hooked to 125 mmHg aj nuous suction. The patient tolerated the procedure well without complication, transferred to the [facility] very Room in stable condition. He will be admitted for pain control and continue IV antibiotic therap y, empirically with Rocephin until cultures are available. Outpatient wound VAC is ordered. Again, he has failed fluids/exudative management with wet-to-dry and Mepilex dressings. The wound is 11 x 5 x 1 cm. All infected and necrotic/nonviable tissue was removed. CC: Gus Brizuela M.D.
[2019-07-02 07:24] LABS: Abs Immature Grans 0.01 k/cumm (0.0-0.09); Absolute Basophil Count 0.01 k/cumm (0.0-0.2); Absolute Eosinophil Count 0.22 k/cumm (0.0-0.7); Absolute Lymphocyte Count 1.07 k/cumm (1.2-3.4); Absolute Monocyte Count 0.65 k/cumm (0.11-0.7); Basophils % 0.2; Eosinophils % 4.5; HCT 29.9 % (40.0-50.0); HGB 9.8 g/dL (13.5-17.5); Immature Grans % 0.2; Mean Corp. HGB Concentration 32.8 g/dL (32.0-36.0); Mean Corpuscular Hemoglobin 35.1 pg (27.0-33.0); Mean Corpuscular Volume 107.2 fL (80-95); Mean Platelet Volume 9.3 fL (8.0-11.0); Monocytes % 13.4; Neutrophils % 59.7; Platelet Count 205 x1000/uL (130-400); RBC 2.79 m/cumm (4.50-6.00); RBC Distribution Width 13.1 % (11.8-14.1); White Blood Cell Count 4.86 k/cumm (4.4-10.8)
[2019-07-02 07:41] LABS: C-Reactive Protein 5.69 mg/dL (0.0-0.3)
[2019-07-02 07:53] LABS: Diff Comment RBC Morph Reviewed; Macrocytosis 2+
[2019-07-02] MEDS: Finasteride 5 MG TAB PO (08:21)
[2019-07-02] MEDS: Docusate Sodium 100 MG CAP PO ×2 (08:21→16:29)
[2019-07-02] MEDS: Levothyroxine 75 MCG TAB PO (08:21)
[2019-07-02] MEDS: Triamterene 37.5/HCTZ 25 CAP PO (08:21)
[2019-07-02] MEDS: Oxybutynin 5 MG TAB 10 MG PO (08:22)
--- NOTE | 2019-07-02 08:30 | DI.CT_ITS ---
EXAM: CT ABD AORTA CTA W RUNOFF CLINICAL HISTORY: traumatic non healing wound RLE TECHNIQUE: CT angiography of the chest, abdomen and pelvis with additional lower extremity runoff pr otocol was obtained. 125 cc of Omnipaque 350 was injected intravenously. Axial CT angiography was performed with multi-slice acquisition and multi-planar and/or 3D reconstruc tions. COMPARISON: CT CHEST/ABD/PEL W from 05/02/2019 FINDINGS: The lungs are predominantly clear. Cardiac size within normal limits. Nonspecific finding of a 25 m illimeter in diameter, elongated structure adjacent to right cardiac border, may represent an epicard ial lymph node. Ascending aorta is ectatic at about 44 millimeters. No dissection. No pulmonary embolus seen. Liver, spleen, pancreas, gallbladder and bile ducts grossly unremarkable except for question of hepat ic steatosis and probable incidental left lobe anterior hepatic cyst. Adrenals and kidneys unremarkable except for presumed vascular calcification of the right kidney. No focal bowel pathology identified. No free intraperitoneal fluid. No gross abdominal or pelvic ad enopathy. Abdominal aorta is of normal diameter. Minimal wall calcification noted. All major visceral branche s including celiac trunk, SMA, renal arteries, and RONEL are of normal caliber. Common internal and ex ternal iliac arteries all unremarkable in appearance. Superficial femoral arteries appear intact bilaterally. Popliteal arteries intact to the trifurcatio n. On the right, there is mild narrowing of the anterior tibial artery and the anterior tibial artery is poorly seen beyond the distal 3rd of the tibia, this is probably due to stenosis but may be due to b olus timing. The peroneal artery on the right tapers to mid tibial level and is not visible beyond t his point. The posterior tibial artery on the right appears of normal diameter to the level of the t ibiotalar joint. On the left, there is multifocal stenosis of the anterior tibial artery which is not visible beyond m id tibial level. There is moderate luminal stenosis of peroneal artery at mid tibial level of less t kerr 50 percent luminal diameter in this vessel is visible to the level of the distal tibia. The post erior tibial artery on the left appears patent and of normal diameter to the level of the tibiotalar joint. 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 Please see above discussion.
[2019-07-02] MEDS: Omnipaque 350 MG/ML 100 ML BTL IJ (09:04)
[2019-07-02 09:23] VITALS: BP 158/73; PULSE 57; RESP 16; TEMP 36.3; O2SAT 99
[2019-07-02] MEDS: HYDROmorphone 2 MG/ML VIAL 0.5 MG IVP (09:47)
[2019-07-02] MEDS: Normal Saline Flush 10 ML SYR IVP (09:48)
--- NOTE | 2019-07-02 09:53 | W.PM.PROGNOT ---
Date of Service Date of service: 07/02/19 Time of Service: 09:53 Assessment and Plan Assessment and plan (1) Avulsion, skin: Status: Acute (2) Traumatic open wound of right lower leg with infection: Status: Acute Assessment and plan: I did review w/ him today that he does have signif atherosclerosis in his LE arteries- which is going to hinder healing. This may contribute some to his LE edema as well. He defn needs to wear support hose- and get new ones every 6m. I am going to add a low dose diuretic and see if this helps w/ the edema He will need to continue on the IV Rocephin daily until wed. I will see him in clinic and see if we can transition to orals at that time. pain control bowel program GI protection (3) PAD (peripheral artery disease): Status: Acute (4) Leg edema, left: Status: Acute (5) Leg edema, right: Status: Acute Subjective Subjective Interval history since last seen: Pt is doing better. no headaches. No CP or SOB. no productive cough. no dysuria. The pain is better. He did have a BM. The tubbs is out and he is able to urinate. He wants to go home today. no fever/chills. no diarrhea. eating well. Exam Const General: cooperative, healthy appearing, comfortable, no acute distress, well developed and well groomed Nutritional Appearance: average body habitus and well nourished Orientation: alert, awake and oriented x3 [facility] Head: normal to inspection, normocephalic and atraumatic Ears: hearing grossly normal bilaterally and external ears normal General nose exam: external nose normal Face and sinus: normal facial exam and sinuses nontender Mouth: oral mucosae normal, lip normal, tongue normal and moist mucous membranes Teeth and gingiva: dentition normal Eyes General: appearance normal, both eyes and all related structures Conjunctivae: conjunctivae normal Sclera: sclerae normal Pupils: PERRL Neck Neck: normal visual inspection and full ROM Chest Chest: normal inspection of the chest Resp Effort & Inspection: normal respiratory effort, able to speak in complete sentences, no cough, no nasal flaring, not tachypneic and no use of accessory muscles Auscultation: clear to auscultation bilaterally, no rales, no rhonchi and no wheezes Cardio Jugular venous pressure: no JVD Rate: regular rate Rhythm: regular rhythm GI Inspection: normal to inspection, no edema and non-distended Palpation: soft, no masses, nontender and No ascites Auscultation: normal bowel sounds Skin General skin exam: no rashes or lesions noted Trauma: no lacerations or abrasions Neuro General: alert, oriented x3, oriented, gait normal, moves all extremities, no focal motor deficits and CN's II-XI intact bilaterally Cognition: normal cognition Speech: speech normal Motor: muscle tone normal throughout Extrem Other: the leg is less red and swollen. Wound VAC is on. Psych Appearance: grossly normal and well kempt Mental Status: mental status grossly normal Speech and Movement: speech and movement normal Affect: normal affect Objective Objective Clinical Data: Abnormal lab results 07/02/19 07/02/19 Range/Units 06:48 06:48 RBC 2.79 L (4.50-6.00) m/cumm Hgb 9.8 L (13.5-17.5) g/dL Hct 29.9 L (40.0-50.0) % MCV 107.2 H (80-95) fL MCH 35.1 H (27.0-33.0) pg Absolute Lymphocytes 1.07 L (1.2-3.4) k/cumm C-Reactive Protein 5.69 H (0.0-0.3) mg/dL Vital Signs Temperature 36.3 C L 07/02/19 09:23 Temperature Source Tympanic 07/02/19 09:23 Pulse 57 L 07/02/19 09:23 Pulse Rhythm Regular 07/02/19 03:30 Respiratory Rate 16 07/02/19 09:23 Respiratory Effort Non-Labored 07/02/19 03:30 Respiratory Depth Normal 07/02/19 03:30 Respiratory Pattern Normal 07/02/19 03:30 Blood Pressure 158/73 H 07/02/19 09:23 Pulse Oximetry 99 07/02/19 09:23 Respiratory End-tidal CO2 36 07/01/19 13:47 Oxygen Delivery Method Room Air 07/02/19 09:23 Oxygen Flow Rate 0 07/02/19 09:23 Pain Level 9 07/02/19 09:47 Comment 07/01/19 14:35 Intake & Output 07/01/19 07/01/19 07/02/19 11:59 23:59 11:59 Intake Total 1731.667 / 1731.667 100 / 100 Output Total 350 / 350 1000 / 1000 Balance 1381.667 / 1381.667 -900 / -900 Weight 85.3 kg Intake: IV 1061.667 / 1061.667 100 / 100 Oral 670 / 670 Output: Urine 350 / 350 1000 / 1000 Other: Urine Color Yellow Yellow Urine Appearance Clear Clear Emesis Description None Laboratory Results WBC 4.86 k/cumm (4.4-10.8) 07/02/19 06:48 RBC 2.79 m/cumm (4.50-6.00) L 07/02/19 06:48 Hgb 9.8 g/dL (13.5-17.5) L 07/02/19 06:48 Hct 29.9 % (40.0-50.0) L 07/02/19 06:48 MCV 107.2 fL (80-95) H 07/02/19 06:48 MCH 35.1 pg (27.0-33.0) H 07/02/19 06:48 MCHC 32.8 g/dL (32.0-36.0) 07/02/19 06:48 RDW 13.1 % (11.8-14.1) 07/02/19 06:48 Plt Count 205 x1000/uL (130-400) 07/02/19 06:48 MPV 9.3 fL (8.0-11.0) 07/02/19 06:48 Immature Gran % 0.2 07/02/19 06:48 Neutrophils % 59.7 07/02/19 06:48 Lymphocytes % 22.0 07/02/19 06:48 Monocytes % 13.4 07/02/19 06:48 Eosinophils % 4.5 07/02/19 06:48 Basophils % 0.2 07/02/19 06:48 Absolute Neutrophils 2.90 k/cumm (1.2-6.7) 07/02/19 06:48 Absolute Lymphocytes 1.07 k/cumm (1.2-3.4) L 07/02/19 06:48 Absolute Monocytes 0.65 k/cumm (0.11-0.7) 07/02/19 06:48 Absolute Eosinophils 0.22 k/cumm (0.0-0.7) 07/02/19 06:48 Absolute Basophils 0.01 k/cumm (0.0-0.2) 07/02/19 06:48 Differential Comment Rbc morph reviewed 07/02/19 06:48 RBC Morphology See below 07/02/19 06:48 Macrocytosis 2+ 07/02/19 06:48 C-Reactive Protein 5.69 mg/dL (0.0-0.3) H 07/02/19 06:48
--- NOTE | 2019-07-02 11:13 | PHARADMIT ---
Admission Pharmacy Clinical Review INFECTED WOUND Code Status Full Code Current Weight Wgt-85.3 kg Renally Cleared and Narrow Therapeutic Index Meds CrCl~ 46 mL/min Meds-OK QTc Value / Action Taken none current BP Control, Fever BP-158/73 Tmax- 36.6C Electrolytes reviewed na DVT Prophylaxis SCDs Opiate Usage / Scheduled Bowel Regimen Ordered Yes Yes Plt/SCr for Heparin / Enoxaparin Plts-205 INR for Warfarin na H/H stable, WBC/Bands H&H- 9.58/29.9 WBC- 4.86 Antibiotic appropriateness Rocephin Cultures and Sensitivities Leg wound -Pending Surgical ABX d/c within 24 hr NA DM control / Insulin Dosing none Heart Failure (Check EF%) (DUSTIN's, B-Block, Diuretics) none IV to PO Switch No Home Meds Reviewed Yes Home Meds Not Ordered Clindamycin, Ibuprofen, Turmeric, Comments RCRP-C reactive protein- 5.69
[2019-07-02] MEDS: cefTRIAXone 2 GM/50 ML BAG IVPB (12:15)
[2019-07-02] MEDS: diphenhydrAMINE 50 MG/ML VIAL 25 MG IVP (12:15)
--- NOTE | 2019-07-02 12:29 | PDOC.CMIN ---
- If Service Date Differs Date of service: 07/02/19 Time of Service: 12:29 Care Management Initial Assess REASON FOR HOSPITALIZATION:: Infected wound PAST MEDICAL HISTORY/PAST SURGICAL HISTORY:: Medical History. Fractured Rib, Hypothyroidism, Benign prostatic hypertrophy, borderline hypertension, lower extremity edema, Parkinsons, Polymyalgia rheumatica, traumatic open wound of right lower extremity. Surgical History. Colonoscopy, inguinal hernia surgery, total hip arthroplasty PREVIOUS FUNCTIONAL STATUS/SOCIAL/FAMILY SUPPORTS:: Wilfrido resides in [place] with his cat and dog. He reports having owned the home for more than forty years but only moved up to the home from [facility] after his divorce a few years ago. 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 He reports being independent with all ADLs at baseline and keeps busy maintaining his home. CURRENT FUNCTIONAL STATUS:: Wilfrido was sitting up in his bed when CM met with him. He was quiet, but pleasant. His sister, Melvina was in the room. CM asked if he felt he would need more support than HH when he returned home, which he declined. His sister stated that she lives near him and would help in any way she could. Wilfrido reported that his wound does hurt, but he is ready to go home. CM will continue to follow. ADVANCE DIRECTIVES:: None on file Has patient been provided with information about the portal?: Yes Did the patient sign up for the portal?: No (prev offered) CODE STATUS:: Full Code INSURANCE COVERAGE / FINANCIAL ISSUES:: MCR/AARP CURRENT HOME/COMMUNITY SERVICES/EQUIPMENT:: CPAP which Wilfrido states he does not use. PRIMARY CARE PHYSICIAN:: Gus Brizuela, [employer] POTENTIAL DISCHARGE NEEDS:: Wilfrido needs a wound vac, which CM is coordinating through [employer]. Anticipate VNA. PATIENT/FAMILY EDUCATION NEEDS:: Review discharge instructions, discussion of self care needs including Ask Me Three ANTICIPATED BARRIERS TO DISCHARGE:: None identified TRANSPORTATION:: Via private vehicle driven by his sister, Melvina. PLAN:: Anticipate Wilfrido will discharge home with new orders for HH VNA. CM supported coordination of a wound vac through [facility] [facility]. Anticipate he will transfer home via private vehicle. He will have follow up appointments with his PCP. CM will continue to follow.
--- NOTE | 2019-07-02 13:10 | PDOC.HHF2F ---
Home Health Certification Home Health Certification: 1. Encounter Date and Reason I certify that REY GREENE was seen by Natasha Polanco on 07/02/19 and that I had a [id number] encounter with this patient that meets the physician face to face encounter requirements. 2. Clinical Findings Supporting Skilled Need and Homebound Status I certify that home health services are medically necessary, include either intermittent senior living and/or physical/speech therapy, and that this patient is homebound in that absences from the home require considerable and taxing effort and are infrequent or of short duration, or are attributable to the need to receive medical care. [X] (a) Attached documentation from encounter provides clinical findings supporting skilled need and homebound status (including what assistance patient requires to leave the home). The encounter with the patient was in whole, or in part, for the following medical condition, which is the primary reason for home health care: INFECTED WOUND Correction:for wound vac changes M/W/F until healed Physical Therapy: Speech Therapy: Homebound: 3. Certification and Authentication I certify that I composed the above information based on my clinical judgement relating to this patient's medical condition and, if applicable, clinical findings communicated to me by the NPP or inpatient physician who performed the Home Health Referral. All further orders will be obtained through (Community Based Physician - PCP)
--- NOTE | 2019-07-02 14:53 | W.NUTCONSULT ---
Date of service: 07/02/19 Time of Service: 14:53 Nutritional Consult ASSESSMENT: Appreciate nutrition consult for wound healing for Mr. Solorzano, 78 years old, who is hospitalized with leg wound. BMI: 27 Iron status decreasing with hemoglobin of 9.8 and high MCV. Currently eating 50-100% of meals. Visited with Mr. Solorzano who says the food is wonderful, but he is frequently interrupted and unable to finish his meal before it is cold. He states is accepts Eduard. He states he will be leaving today possibly. Discussed how he will obtain his meals as he lives alone. NUTRITIONAL DIAGNOSIS: High protein needs for wound healing INTERVENTION: Reviewed protein foods and suggested addition of cottage cheese, egg in addition to his usual meal and he is in agreement. He has accepted Eduard. Encouraged him to get adequate calories to protect him from weight loss. He anticipates he can get his own meals. MONITORING AND EVALUATION: Will follow wound healing process and continue to offer high nutrient content foods and protein as well as Eduard. Time Spent in Nutritional Counseling and Treatment: 8 minutes face to face
--- NOTE | 2019-07-02 15:51 | PDOC.CMDIS ---
- If Service Date Differs Date of service: 07/02/19 Time of Service: 15:51 LACE Index Scoring Tool - Questions: Length of Stay (in days): 2 Acuity (Admit via E.D.?): No E.D. Visits: 6 - Answers: Total Score: 6 Risk of Readmission: Low Risk Care Management Discharge Reason for Hospitalization: Infected wound Discharge Plan: Wilfrido will return home with new orders for HH VNA. He has a wound vac which CM coordinated through [facility]. CM contacted HC to inform them of dressing changes M/W/F. He will follow up with his PCP. His sister, Melvina, will drive him home via private vehicle. Patient/Family Education Needs: Review discharge instructions including activity levels, medications and wound care. Discussion of self care needs including Ask Me Three. Services Needed at Discharge: DME Agency, Home Health Care Services
--- NOTE | 2019-07-02 15:51 | W.PM.DS.N ---
Date of service: 07/02/19 Time of Service: 15:52 DS: Diagnosis Discharge Diagnosis (1) Avulsion, skin: Status: Acute (2) Traumatic open wound of right lower leg with infection: Status: Acute (3) PAD (peripheral artery disease): Status: Acute (4) Leg edema, left: Status: Acute (5) Leg edema, right: Status: Acute Discharge Plan Disposition Patient Disposition: HOME Condition: Good Discharge Details Reason For Visit: INFECTED WOUND Admit Date/Time: 07/01/19 13:27 Admit Provider: Natasha Polanco Attending Provider: Natasha Polanco Primary Care Provider: Gus Brizuela Home Meds and New Rx's Prescriptions: New acidophilus-pectin, citrus 25 million cell -100 mg Tablet 1 cap PO TID PRN PRN30 Days Qty: 90 RF: 0 triamterene-hydrochlorothiazid 37.5-25 mg tablet 1 tab PO DAILY Qty: 30 RF: 3 oxycodone 5 mg tablet 5 mg PO QID PRN (Reason: pain) Qty: 30 RF: 0 Continued oxycodone 5 mg tablet 5 mg PO Q4H MDD 6 PRN (Reason: pain) Qty: 20 RF: 0 docusate sodium 50 mg capsule 50 mg PO BID Qty: 30 RF: 3 levothyroxine 75 MCG tablet 75 mcg PO DAILY RF: 0 tamsulosin 0.4 MG capsule 1 tab PO HS RF: 0 ropinirole 2 MG tablet 2 mg PO HS RF: 0 finasteride 5 MG tablet 5 mg PO DAILY RF: 0 ibuprofen 200 mg Tablet 400 mg PO PRN PRNRF: 0 oxybutynin chloride 10 mg Tablet Extended Release 24hr 10 mg PO DAILY RF: 0 acetaminophen [Tylenol Extra Strength] 500 mg Tablet 1,000 mg PO Q4H PRNRF: 0 turmeric 400 mg Capsule PO RF: 0 Discontinued tramadol 50 mg tablet 50 mg PO TID PRN (Reason: pain) Qty: 7 RF: 0 hydrocodone-acetaminophen 5-325 mg Tablet 1 tab PO Q4H PRNRF: 0 clindamycin HCl 300 mg Capsule 300 mg PO TID RF: 0 Discharge Instructions Additional Instructions: Keep an ice bag on the incision. 20 minutes on and 20 minutes off. Ice keeps the swelling down and swelling causes pain. Make sure you wrap the ice pack in a towel and don't apply directly to the skin. -No driving if taking narcotics -Home Health RN will change wound VAC M/W/F -We will change the wound VAC on Friday. Bring wound VAC supples for dressing change on Friday. -Follow-up with Dr. Polanco next Saturday 07/07 13:30 -regular diet. -no straining to move bowels. -pain meds are very constipating: if you do not move your bowels daily take a dose of OTC milk of magnesia -We don't want you doing anything. But, we do want you up walking around. Take pain meds if you need them. But watch out for constipation. -Protein supplements daily. You may find that your appetite is smaller. Eat 3-6 small meals throughout the day. It is important to drink lots of water after surgery, 6-10 glasses a day. -If you were given an incentive spirometry 'breathing quality engineer, continue to do this 10x/hour while awake. -We do want you up walking, at least 5-6 times per day. This is very important to prevent pneumonia and blood clots. You can climb stairs, take them slowly. -No lifting over 5 pounds. This is very important to avoid developing a hernia in your incision. -You may find that you are very tired after surgery- this is normal. -cover the VAC w/ plastic bag to shower. -Come in daily for IV Abx. Will re-asses on Friday if need to continue on IV antibiotics vs changing to oral. Activity:: walking to tolerance Equipment/Supplies:: wound VAC Diet:: As Tolerated DS: Summary Status at Discharge Functional status at discharge: uses cane/walker Overall status at discharge: patient is back to baseline Mental Status: mental status grossly normal Speech and Movement: speech and movement normal Mood: congruent mood Affect: normal affect Exam Psych Mental Status: mental status grossly normal Speech and Movement: speech and movement normal Mood: congruent mood Affect: normal affect DS: Data Vitals/I&O Vitals and I&O: Vital Signs Temperature 36.3 C L 07/02/19 09:23 Temperature Source Tympanic 07/02/19 09:23 Pulse 57 L 07/02/19 09:23 Pulse Rhythm Regular 07/02/19 03:30 Respiratory Rate 16 07/02/19 09:23 Respiratory Effort Non-Labored 07/02/19 03:30 Respiratory Depth Normal 07/02/19 03:30 Respiratory Pattern Normal 07/02/19 03:30 Blood Pressure 158/73 H 07/02/19 09:23 Pulse Oximetry 99 07/02/19 09:23 Respiratory End-tidal CO2 36 07/01/19 13:47 Oxygen Delivery Method Room Air 07/02/19 09:23 Oxygen Flow Rate 0 07/02/19 09:23 Pain Level 4 07/02/19 12:13 Comment 07/01/19 14:35 Intake & Output 07/01/19 07/02/19 07/02/19 23:59 11:59 23:59 Intake Total 1731.667 / 1731.667 100 / 100 Output Total 350 / 350 1000 / 1000 Balance 1381.667 / 1381.667 -900 / -900 Intake: IV 1061.667 / 1061.667 100 / 100 Oral 670 / 670 Output: Urine 350 / 350 1000 / 1000 Other: Urine Color Yellow Yellow Urine Appearance Clear Clear Emesis Description None Data Completed and Pending Labs on day of discharge: Labs from last 24 hours 07/02/19 07/02/19 06:48 06:48 WBC 4.86 RBC 2.79 L Hgb 9.8 L Hct 29.9 L MCV 107.2 H MCH 35.1 H MCHC 32.8 RDW 13.1 Plt Count 205 MPV 9.3 Immature Gran % 0.2 Neutrophils % 59.7 Lymphocytes % 22.0 Monocytes % 13.4 Eosinophils % 4.5 Basophils % 0.2 Absolute Neutrophils 2.90 Absolute Lymphocytes 1.07 L Absolute Monocytes 0.65 Absolute Eosinophils 0.22 Absolute Basophils 0.01 Differential Comment Rbc morph reviewed RBC Morphology See below Macrocytosis 2+ C-Reactive Protein 5.69 H Preliminary micro results at discharge 07/01/19 12:40 Wound Culture - Preliminary Leg - Right Lower Gram Negative Sukhjinder Normal Shannan [facility] Medical History (Updated 07/02/19 @ 13:38 by Natasha Polanco DO) BPH (benign prostatic hyperplasia) (Chronic) Fractured rib (Acute) mid May 2019 Hypothyroidism (Chronic) Leg edema, left (Acute) Leg edema, right (Acute) Lower extremity edema (Acute) PAD (peripheral artery disease) (Acute) Parkinsons (Chronic) pt. states he does not have Polymyalgia rheumatica (Acute) pt. reports he has this not parkinsons Traumatic open wound of right lower leg with infection (Acute) Traumatic open wound of right lower leg with infection (Acute) Surgical History Hx of colonoscopy (Chronic) Hx of inguinal hernia surgery (Acute) Hx of total hip arthroplasty (Acute) right Social History Smoking/Tobacco Use Status: Former Tobacco Use Quit Date: 09/08/81 Alcohol Intake: current Alcohol Intake frequency: 0-2 drinks per day Alcohol type: beer and hard liquor Drug use: Never Substance use type: does not use Details: daily beer /liquor yesterday 1 beer It was a light day Do you feel safe at home: Yes Do you feel safe in your relationship?: Yes Additional Social history: Abby Mark neightbor/friend [phone]
[2019-07-02 16:27] VITALS: BP 137/63; PULSE 67; RESP 17; TEMP 36.6; O2SAT 99
[2019-07-02] MEDS: Bacitracin 1 PACKET (17:33)
== END 2019-07-02 18:07 | disposition home or self-care (01) | DRG 572 ==
LOC: MS 14:32
PROVIDERS: Admitting Provider Surgery; PCP Specialist/Technologist Athletic Trainer; Visit Provider Surgery
PROC: BW03ZZZ Plain Radiography of Chest (ICD-10-PCS; principal; 2019-07-01 11:30)
DX: S81.811A Laceration without foreign body, right lower leg, initial encounter (principal); X58.XXXA Exposure to other specified factors, initial encounter; B95.61 Methicillin susceptible Staphylococcus aureus infection as the cause of diseases classified elsewhere; Z88.0 Allergy status to penicillin; I73.9 Peripheral vascular disease, unspecified; R60.0 Localized edema; Z71.3 Dietary counseling and surveillance; E03.9 Hypothyroidism, unspecified; K59.03 Drug induced constipation; T40.605A Adverse effect of unspecified narcotics, initial encounter; N40.0 Benign prostatic hyperplasia without lower urinary tract symptoms; M35.3 Polymyalgia rheumatica; Z23 Encounter for immunization
CPT/HCPCS: 11042; 11045; 36415; 75635; 87077; 99239; NC; 71045; 85025; 86140; 87070; 87186; 87205; J0131; J1200; J3490

== ENCOUNTER 2019-07-05 16:05 | Outpatient (CLI) | payer MEDICARE, SELFPAY | END 2019-07-05 16:25 | PROVIDERS: PCP Specialist/Technologist Athletic Trainer; Visit Provider Surgery | DX: Z48.89 Encounter for other specified surgical aftercare (principal) ==

== ENCOUNTER 2019-07-06 02:13 | Outpatient (RCR) | payer MEDICARE, SELFPAY ==
[2019-06-30 12:25] VITALS: BP 159/69; PULSE 60; RESP 18; TEMP 36.6; O2SAT 97
[2019-06-30] MEDS: diphenhydrAMINE 50 MG/ML VIAL 25 MG IVP (12:30)
[2019-06-30] MEDS: cefTRIAXone 2 GM/50 ML BAG IVPB (12:38)
[2019-06-30 12:40] LABS: Abs Immature Grans 0.03 k/cumm (0.0-0.09); Absolute Basophil Count 0.02 k/cumm (0.0-0.2); Absolute Eosinophil Count 0.11 k/cumm (0.0-0.7); Absolute Lymphocyte Count 1.05 k/cumm (1.2-3.4); Absolute Monocyte Count 0.99 k/cumm (0.11-0.7); Absolute Neutrophil Count 5.52 k/cumm (1.2-6.7); Basophils % 0.3; Eosinophils % 1.4; HCT 31.3 % (40.0-50.0); HGB 10.3 g/dL (13.5-17.5); Immature Grans % 0.4; Lymphocytes % 13.6; Mean Corp. HGB Concentration 32.9 g/dL (32.0-36.0); Mean Corpuscular Hemoglobin 34.7 pg (27.0-33.0); Mean Corpuscular Volume 105.4 fL (80-95); Mean Platelet Volume 9.4 fL (8.0-11.0); Monocytes % 12.8; Neutrophils % 71.5; Platelet Count 173 x1000/uL (130-400); RBC 2.97 m/cumm (4.50-6.00); RBC Distribution Width 13.1 % (11.8-14.1); White Blood Cell Count 7.72 k/cumm (4.4-10.8)
[2019-06-30] MEDS: Normal Saline Flush 10 ML SYR IVP (12:41)
[2019-06-30 12:48] LABS: Anion Gap 7.6 mmol/L (3-11); BUN 18 mg/dL (7-18); C-Reactive Protein 11.26 mg/dL (0.0-0.3); CO2 29.4 mmol/L (21.0-32.0); CREATININE 1.32 mg/dL (0.70-1.30); Calcium 8.5 mg/dL (8.5-10.1); Chloride 103 mmol/L (98-107); Estimated GFR 52.46 (mL/min/1.73m2); Glucose 92 mg/dL (70-100); Sodium 140 mmol/L (136-145)
[2019-07-05] MEDS: diphenhydrAMINE 50 MG/ML VIAL 25 MG IVP (13:20)
[2019-07-05] MEDS: cefTRIAXone 2 GM/50 ML BAG IVPB (13:28)
[2019-07-05] MEDS: Normal Saline Flush 10 ML SYR IVP (13:35)
[2019-07-06] MEDS: diphenhydrAMINE 50 MG/ML VIAL 25 MG IVP (13:00)
[2019-07-06] MEDS: Normal Saline Flush 10 ML SYR IVP (13:05)
[2019-07-06] MEDS: cefTRIAXone 2 GM/50 ML BAG IVPB (13:06)
== END 2019-07-08 23:59 | disposition home or self-care (01) ==
LOC: INF 02:13
PROVIDERS: PCP Specialist/Technologist Athletic Trainer; Visit Provider Surgery
DX: S81.811A Laceration without foreign body, right lower leg, initial encounter (principal); X58.XXXA Exposure to other specified factors, initial encounter; B95.61 Methicillin susceptible Staphylococcus aureus infection as the cause of diseases classified elsewhere
CPT/HCPCS: 36569; 80048; 96365; 96374; 99213; 85025; 86140; J1200

== ENCOUNTER → 2019-07-07 13:18 | Outpatient (BNVA) | payer MEDICARE, SELFPAY | PROVIDERS: PCP Specialist/Technologist Athletic Trainer; Referring Provider Specialist/Technologist Athletic Trainer; Visit Provider Surgery | DX: Z51.89 Encounter for other specified aftercare (principal); L08.9 Local infection of the skin and subcutaneous tissue, unspecified; S81.801A Unspecified open wound, right lower leg, initial encounter; X58.XXXA Exposure to other specified factors, initial encounter | CPT/HCPCS: 97597; 97598; 99212; 99214 ==

== ENCOUNTER 2019-07-19 15:10 | Outpatient (REF) | payer MEDICARE, SELFPAY ==
[2019-07-19 21:54] LABS: Abs Immature Grans 0.02 k/cumm (0.0-0.09); Absolute Basophil Count 0.01 k/cumm (0.0-0.2); Absolute Eosinophil Count 0.04 k/cumm (0.0-0.7); Absolute Lymphocyte Count 0.82 k/cumm (1.2-3.4); Absolute Monocyte Count 0.64 k/cumm (0.11-0.7); Absolute Neutrophil Count 7.95 k/cumm (1.2-6.7); Basophils % 0.1; Eosinophils % 0.4; HCT 36.8 % (40.0-50.0); HGB 12.3 g/dL (13.5-17.5); Immature Grans % 0.2; Lymphocytes % 8.6; Mean Corp. HGB Concentration 33.4 g/dL (32.0-36.0); Mean Corpuscular Hemoglobin 34.6 pg (27.0-33.0); Mean Corpuscular Volume 103.7 fL (80-95); Mean Platelet Volume 10.4 fL (8.0-11.0); Monocytes % 6.8; Neutrophils % 83.9; Platelet Count 309 x1000/uL (130-400); RBC 3.55 m/cumm (4.50-6.00); RBC Distribution Width 12.7 % (11.8-14.1); White Blood Cell Count 9.48 k/cumm (4.4-10.8)
[2019-07-19 22:20] LABS: ALT 21 U/L (16-63); AST 16 U/L (15-37); Albumin 3.8 g/dL (3.4-5.0); Alkaline Phosphatase 78 U/L (46-116); Anion Gap 10.1 mmol/L (3-11); BUN 19 mg/dL (7-18); Bilirubin, Total 0.7 mg/dL (0.2-1.0); CO2 25.9 mmol/L (21.0-32.0); CREATININE 1.16 mg/dL (0.70-1.30); Calcium 9.2 mg/dL (8.5-10.1); Chloride 104 mmol/L (98-107); Glucose 105 mg/dL (70-100); Potassium 4.9 mmol/L (3.5-5.1); Sodium 140 mmol/L (136-145); Total Protein 6.6 g/dL (6.4-8.2)
== END 2019-07-19 15:30 ==
LOC: NCHCN 15:10
PROVIDERS: PCP Specialist/Technologist Athletic Trainer; Visit Provider Nurse Practitioner Family
DX: R19.7 Diarrhea, unspecified (principal)
CPT/HCPCS: 80053; 85025

== ENCOUNTER 2019-07-21 13:05 | Outpatient (REF) | payer MEDICARE, SELFPAY ==
[2019-07-22 12:34] LABS: Campylobacter PCR Negative (Negative); Salmonella PCR Negative (Negative); Shigella/Enteroinvasive Ecoli Negative (Negative)
[2019-07-26 14:52] LABS: Shiga Toxin PCR Negative (Negative)
== END 2019-07-21 13:25 ==
LOC: NCHCN 13:05
PROVIDERS: PCP Specialist/Technologist Athletic Trainer; Visit Provider Nurse Practitioner Family
DX: R19.7 Diarrhea, unspecified (principal)
CPT/HCPCS: 87505; 83630; 87177; 87230; 87324

== ENCOUNTER → 2019-07-21 13:13 | Outpatient (BNVA) | payer MEDICARE, SELFPAY | PROVIDERS: PCP Specialist/Technologist Athletic Trainer; Referring Provider Specialist/Technologist Athletic Trainer; Visit Provider Surgery | DX: Z51.89 Encounter for other specified aftercare (principal); L08.9 Local infection of the skin and subcutaneous tissue, unspecified; S81.801A Unspecified open wound, right lower leg, initial encounter; X58.XXXA Exposure to other specified factors, initial encounter; R19.7 Diarrhea, unspecified; I73.9 Peripheral vascular disease, unspecified | CPT/HCPCS: 99213 ==

== ENCOUNTER 2019-07-25 15:49 | Emergency (ER) | payer MEDICARE, SELFPAY ==
[2019-07-25] VITALS (25 sets, daily range): BP systolic 131–175; BP diastolic 55–84; PULSE 48–83; RESP 16; TEMP 36.6–36.9; O2SAT 98–100
[2019-07-25] MEDS: Normal Saline 1,000 ML 1000 ML IV ×2 (16:16→17:55)
[2019-07-25 16:20] LABS: Lactate 0.9 mmol/L (0.6-1.4)
[2019-07-25 16:24] LABS: Abs Immature Grans 0.02 k/cumm (0.0-0.09); Absolute Basophil Count 0.01 k/cumm (0.0-0.2); Absolute Eosinophil Count 0.01 k/cumm (0.0-0.7); Absolute Monocyte Count 0.73 k/cumm (0.11-0.7); Basophils % 0.1; Eosinophils % 0.1; HCT 39.1 % (40.0-50.0); HGB 13.1 g/dL (13.5-17.5); Immature Grans % 0.2; Lymphocytes % 4.9; Mean Corp. HGB Concentration 33.5 g/dL (32.0-36.0); Mean Corpuscular Hemoglobin 34.4 pg (27.0-33.0); Mean Corpuscular Volume 102.6 fL (80-95); Mean Platelet Volume 9.8 fL (8.0-11.0); Monocytes % 5.9; Neutrophils % 88.8; Platelet Count 203 x1000/uL (130-400); RBC 3.81 m/cumm (4.50-6.00); RBC Distribution Width 12.3 % (11.8-14.1); White Blood Cell Count 12.31 k/cumm (4.4-10.8)
[2019-07-25 16:47] LABS: Absolute Neutrophil Count 10.93 k/cumm (1.2-6.7)
[2019-07-25 16:51] LABS: ALT 20 U/L (16-63); AST 18 U/L (15-37); Alkaline Phosphatase 76 U/L (46-116); Anion Gap 7.5 mmol/L (3-11); BUN 21 mg/dL (7-18); Bilirubin, Total 0.8 mg/dL (0.2-1.0); CO2 27.5 mmol/L (21.0-32.0); CREATININE 1.74 mg/dL (0.70-1.30); Calcium 8.9 mg/dL (8.5-10.1); Chloride 105 mmol/L (98-107); Estimated GFR 38.14 (mL/min/1.73m2); Glucose 127 mg/dL (70-100); Potassium 4.8 mmol/L (3.5-5.1); Sodium 140 mmol/L (136-145)
[2019-07-25 16:57] LABS: Lipase 79 U/L (73-393)
--- NOTE | 2019-07-25 17:01 | W.ED.GENAD ---
Discharge Plan Disposition Patient Disposition: [facility] Condition: Stable Discharge Details Chief Complaint: Abd Prob Clinical Impression: Urolithiasis, Acute appendicitis, Abdominal pain Primary Care Provider: Gus Brizuela ED Provider: Jasen Diego Home Meds and New Rx's Prescriptions: No Action oxycodone 5 mg tablet 5 mg PO Q4H MDD 6 PRN (Reason: pain) Qty: 20 RF: 0 levothyroxine 75 MCG tablet 75 mcg PO DAILY RF: 0 tamsulosin 0.4 MG capsule 1 tab PO HS RF: 0 ropinirole 2 MG tablet 2 mg PO HS RF: 0 finasteride 5 MG tablet 5 mg PO DAILY RF: 0 ibuprofen 200 mg Tablet 400 mg PO PRN PRNRF: 0 oxybutynin chloride 10 mg Tablet Extended Release 24hr 10 mg PO DAILY RF: 0 acetaminophen [Tylenol Extra Strength] 500 mg Tablet 1,000 mg PO Q4H PRNRF: 0 turmeric 400 mg Capsule PO RF: 0 Medical Decision Making This is a pleasant 78-year-old male who presents today for evaluation of left lower quadrant abdominal pain. Pain is been present for the last day. He has not had a bowel movement last day and a half. He describes it as sharp and achy. Of note he was on antibiotics 2 weeks ago, but has not been on any since then. Last meal was last night. 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 Exam demonstrates mild to moderate left lower quadrant abdominal tenderness. No testicular tenderness. No rectal bleeding, hematochezia or melena. Signs and symptoms at this time are concerning for potential diverticulitis versus other acute abdominal process. Due to the patient's age and previous surgery we will get a CT scan of the abdomen for further evaluation. We will treat his pain, rehydrate and reassess. 5:05 PM Patient's renal function is certainly not ideal. Because of this we will do a noncontrast CT scan. White count is mildly elevated, hemoglobin stable. Lactate normal. 6:30 PM Patient is still not urinated. We have sent a stool sample and are waiting for C. difficile testing on this. CT scan results have returned, was contacted by virtual radiologist Dr. Partida, per her assessment there is concern for an appendicolith within the appendix with inflammatory changes. Concerning for acute appendicitis. Additionally the patient does have a left hydroureteronephrosis, secondary to a 5 mm stone. Repeat abdominal exam was performed, and the patient still does have reproducible left-sided abdominal pain but on repeat exam he does demonstrate somewhat sharp right-sided abdominal pain that is only present with palpation. I did contact our surgeon Dr. Roa and discussed the case with her. She is concerned that with the patient's kidney stone and hydronephrosis in conjunction with the potential appendicitis that his surgical needs would be best met at a tertiary care facility and not here. We did try contacting Dr. Valdez, of urology, unfortunately he is not available. We we will contact [facility] for surgical assessment. We will straight cath for urinalysis assessment. 7:14 PM C diff testing is returned negative. I did contact Dr. Fitzgerald of [facility] surgery. I discussed the case with him, including CT scan findings, laboratory evaluation, and current patient's stability. I discussed the reason for request for transfer. He agreed to accept the patient to [facility] to be evaluated in the ED. Patient will be transferred by [facility] to [facility]. I have extensively reviewed the treatment plan with the patient. I have addressed all patient concerns at this time. I have also discussed the plan with the accepting physician and they agree with the current assessment and plan and have agreed to assume responsibility for the patient. All parties demonstrate verbal understanding and agreement with our assessment and plan at this time. At time of transfer the patient was reassessed and continued to demonstrate current medical stability. No signs of acute respiratory distress requiring intubation, hemodynamic instability requiring pressor support, or rapidly declining mental status. The patient is stable for transport. 7:37 PM [facility] is here, patient will be transferred, urinalysis just came back and shows greater than 50 RBCs and 3-5 WBCs, negative leuk esterase, negative nitrites, clinically inconsistent with pyelonephritis or significant infection at this time. Patient will be transferred to [facility] per plan. FINDINGS: Lungs: Bibasilar reticular markings and emphysematous changes the lung akhtar and pleural thickening similar to the prior study. Heart: Cardiomegaly. Liver: Normal. No mass. Gallbladder and bile ducts: Normal. No calcified stones. No ductal dilation. Pancreas: Normal. No ductal dilation. Spleen: Normal. No splenomegaly. Adrenals: Normal. No mass. Kidneys and ureters: Nonobstructing right renal calculi. Left hydroureteral nephrosis secondary to a 0.5 cm mid ureteral stone series 2 image 53. Left perirenal fat and periureteral fat infiltration. Stomach and bowel: Diverticulosis sigmoid colon. Appendix: Large solid stool load. Appendicolith within the appendix series 2 image 56 with mild periappendiceal fat infiltration series 2 image 53 through 57. Intraperitoneal space: Unremarkable. No free air. No significant fluid collection. Vasculature: Coronary artery disease. Atherosclerotic disease. Lymph nodes: Unremarkable. No enlarged lymph nodes. Bladder: Unremarkable as visualized. Reproductive: Unremarkable as visualized. Bones/joints: Total right hip arthroplasty. Multilevel degenerative changes of the thoracic and lumbar spine. 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 Possible postsurgical changes of L5 posterior spinous processes. Degenerative changes of the left hip. Soft tissues: Fat distention of the inguinal canals. Umbilical hernia with omental fat. IMPRESSION: 1. Left hydroureteronephrosis secondary to a mid ureteral 0.5 cm stone. 2. Appendicolith within the appendix with mild inflammatory changes as discussed above. Thank you for allowing us to participate in the care of your patient. Dictated and Authenticated by: Mary Partida MD 07/25/2019 5:41 PM Eastern Time ([place] & [place]) HPI General Date/Time Provider Initiated Documentation: 07/25/19 15:52. HPI Narrative: This is a pleasant 78-year-old male with past medical history of a chronic right lower extremity fernandez wound on a wound VAC, who presents today for evaluation of abdominal pain. Patient states that he was given an IV course of antibiotics 2 weeks ago, since then he has had on and off alteration between diarrhea and constipation. This is been unremarkable with no bladder or other abnormalities or pain, however early today/last night he noted relatively sudden onset left lower quadrant abdominal pain which she describes as sharp and aching in nature. No radiation to the groin testicles scrotum penis and right side of the abdomen or back. He denies any associated urinary symptoms. He has not had any bowel movements for the last day and a half, he denies any hematochezia, melena, acholic stool, hematuria, dysuria, increased urinary frequency. He denies any fever or chills. He denies any nausea or vomiting. He denies any tearing or ripping sensation. He has not been on any antibiotics for the last 2 weeks. Past surgical history is positive for previous abdominal hernia repair. He denies any other complaints at this time. He denies any aggravating or relieving factors. Related Data Home Medications Medication Instructions Recorded Confirmed finasteride 5 mg PO DAILY 12/03/16 07/21/19 levothyroxine 75 mcg PO DAILY 12/03/16 07/21/19 ropinirole 2 mg PO HS 12/03/16 07/21/19 tamsulosin 1 tab PO HS 12/03/16 07/21/19 ibuprofen 400 mg PO PRN PRN 05/02/19 07/21/19 acetaminophen [Tylenol Extra 1,000 mg PO Q4H PRN 06/30/19 07/21/19 Strength] oxybutynin chloride 10 mg PO DAILY 06/30/19 07/21/19 oxycodone 5 mg tablet 5 mg PO Q4H PRN #20 tab MDD 6 06/30/19 07/07/19 turmeric mg PO 06/30/19 07/21/19 Previous Rx's Medication Instructions Recorded oxycodone 5 mg tablet 5 mg PO Q4H PRN #20 tab MDD 6 06/30/19 Allergies Allergy/AdvReac Type Severity Reaction Status Date / Time Sulfa (Sulfonamide Allergy Intermediate Its been Verified 07/25/19 15:58 Antibiotics) along time cat dander Allergy Mild Verified 07/25/19 15:58 penicillin V Allergy Mild nausea Verified 07/25/19 15:58 salicylates AdvReac Mild up set Verified 07/25/19 15:58 stomach General Stated Complaint: Abd Prob BRYCE: 3 Review of Systems All systems reviewed & are unremarkable except as noted in HPI and below PFSH Medical History (Updated 07/23/19 @ 14:44 by Natasha Polanco DO) BPH (benign prostatic hyperplasia) (Chronic) Diarrhea (Acute) Fractured rib (Acute) mid May 2019 Hypothyroidism (Chronic) Leg edema, left (Acute) Leg edema, right (Acute) Lower extremity edema (Acute) PAD (peripheral artery disease) (Acute) Parkinsons (Chronic) pt. states he does not have Polymyalgia rheumatica (Acute) pt. reports he has this not parkinsons Traumatic open wound of right lower leg with infection (Acute) Traumatic open wound of right lower leg with infection (Acute) Surgical History Hx of colonoscopy (Chronic) Hx of inguinal hernia surgery (Acute) Hx of total hip arthroplasty (Acute) right Social History Smoking/Tobacco Use Status: Former Tobacco Use Quit Date: 09/08/81 Alcohol Intake: current Alcohol Intake frequency: 0-2 drinks per day Alcohol type: beer and hard liquor Drug use: Never Substance use type: does not use Details: daily beer /liquor yesterday 1 beer It was a light day Do you feel safe at home: Yes Do you feel safe in your relationship?: Yes Additional Social history: Abby alfarotbor/friend [phone] Exam Narrative Exam Narrative: 1.Const: Well-nourished, Well-developed, appearing stated age 2.Eyes: PERRL, no conjunctival injection, and symmetrical lids. 3.ENT: Atraumatic external nose and ears. Moist MM. Neck: Symmetric, trachea midline, No thyromegaly. 4.CVS: +S1/S2, No murmurs or gallops. Peripheral pulses 2+ and equal in all extremities. Brisk capillary refill in all extremities. 5.RESP: Unlabored respiratory effort. Clear to auscultation bilaterally. No wheezes rales or rhonchi 6.GI: Soft, bowel sounds present throughout, mild left lower quadrant abdominal pain. Negative Rovsing sign, no pain in the scrotum or testicles. No penile tenderness. No flank or CVA tenderness. 7.MSK: Normocephalic/Atraumatic, Extremities w/o deformity or ttp No cyanosis or clubbing, Normal movement of all extremities. Well-healing lesion on the right lower extremity, wound VAC in place. No significant erythema or warmth. 8.Skin: Warm, Dry. 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 Sensation grossly intact, no focal neurologic deficits. 10.Psych: (AAO) x3. Appropriate mood and affect Course Vital Signs Vital signs: Vital Signs Temperature 36.6 C 07/25/19 15:55 Pulse 83 07/25/19 15:55 Respiratory Rate 16 07/25/19 15:55 Blood Pressure 141/73 H 07/25/19 15:55 Pulse Oximetry 98 07/25/19 15:55 Temperature 36.6 C 07/25/19 15:55 Temperature Source Temporal Artery Scan 07/25/19 15:55 Pulse 83 07/25/19 15:55 Respiratory Rate 16 07/25/19 15:55 Respiratory Effort 07/25/19 16:10 Blood Pressure 141/73 H 07/25/19 15:55 Blood Pressure Position Sitting 07/25/19 15:55 Pulse Oximetry 98 07/25/19 15:55 Oxygen Delivery Method Room Air 07/25/19 15:55 Oxygen Flow Rate 0 07/25/19 15:55 Pain Level 8 07/25/19 15:55 Lab/Test Results Lab/Test Results: Laboratory Tests Range/Units 07/25/19 07/25/19 07/25/19 16:05 16:05 16:05 WBC (4.4-10.8) k/cumm 12.31 H RBC (4.50-6.00) m/cumm 3.81 L Hgb (13.5-17.5) g/dL 13.1 L Hct (40.0-50.0) % 39.1 L MCV (80-95) fL 102.6 H MCH (27.0-33.0) pg 34.4 H MCHC (32.0-36.0) g/dL 33.5 RDW (11.8-14.1) % 12.3 Plt Count (130-400) x1000/uL 203 D MPV (8.0-11.0) fL 9.8 Immature Gran % 0.2 Neutrophils % 88.8 Lymphocytes % 4.9 Monocytes % 5.9 Eosinophils % 0.1 Basophils % 0.1 Absolute Neutrophils (1.2-6.7) k/cumm 10.93 H Absolute Lymphocytes (1.2-3.4) k/cumm 0.60 L Absolute Monocytes (0.11-0.7) k/cumm 0.73 H Absolute Eosinophils (0.0-0.7) k/cumm 0.01 Absolute Basophils (0.0-0.2) k/cumm 0.01 Sodium (136-145) mmol/L 140 Potassium (3.5-5.1) mmol/L 4.8 Chloride (98-107) mmol/L 105 Carbon Dioxide (21.0-32.0) mmol/L 27.5 Anion Gap (3-11) mmol/L 7.5 BUN (7-18) mg/dL 21 H Creatinine (0.70-1.30) mg/dL 1.74 H Estimated GFR/1.73 m2 (mL/min/1.73m2) 38.14 Glucose (70-100) mg/dL 127 H Lactate (0.6-1.4) mmol/L 0.9 Calcium (8.5-10.1) mg/dL 8.9 Total Bilirubin (0.2-1.0) mg/dL 0.8 AST (15-37) U/L 18 ALT (16-63) U/L 20 Alkaline Phosphatase (46-116) U/L 76 Total Protein (6.4-8.2) g/dL 7.0 Albumin (3.4-5.0) g/dL 4.0
--- NOTE | 2019-07-25 17:10 | DI.CT_ITS ---
EXAM: CT ABDOMEN PELVIS WO CLINICAL HISTORY: LLQ pain TECHNIQUE: Noncontrast COMPARISON: CT CHEST/ABD/PEL W from 05/02/2019 CT ABD AORTA CTA W RUNOFF from 07/02/2019 FINDINGS: TheHeart is again noted to be mildly enlarged. The aorta is mildly dilated, unchanged. Chronic inters titial changes are noted at the lung bases. The liver, gallbladder, spleen, pancreas and adrenals are unremarkable. There is moderate left hydronephrosis secondary to a 5 millimeter calcification in the mid left ureter. A nonobstructing stone is seen in the mid right kidney. There is mild left perineph bhargav stranding. A hip prosthesis creates artifact at the level of the bladder. The bladder is grossly unremarkable. Diverticulosis is noted. There is no evidence of diverticulitis. There are no compressi on fractures. There are old right rib fractures. There is a tiny umbilical hernia and a small amount of fat within both inguinal canals. IMPRESSION: Moderate left hydronephrosis secondary to a 5 millimeter stone in the mid left ureter. Nonobstructin g stone in the mid right kidney.
[2019-07-25] MEDS: HYDROmorphone 2 MG/ML VIAL 1 MG IVP (17:39)
[2019-07-25] MEDS: ACETAMINOPHEN 1,000 MG/100 ML BTL 400 MG IVPB (17:40)
--- NOTE | 2019-07-25 17:42 | DI.VRAD_ITS ---
Addendum created by Mary Partida MD on 07/25/2019 5:47:53 PM EST THIS REPORT CONTAINS FINDINGS THAT MAY BE CRITICAL TO PATIENT CARE. The findings were verbally communicated via telephone conference with TOAN GREENFIELD at 5:47 PM EST on 07/25/2019. The findings were acknowledged and understood. Initial report created on 07/25/2019 5:41:48 PM EST PROCEDURE INFORMATION: Exam: CT Abdomen And Pelvis Without Contrast Exam date and time: 07/25/2019 5:08 PM Clinical history: 78 years old, male; Other: Llq pain TECHNIQUE: Imaging protocol: Computed tomography of the abdomen and pelvis without contrast. Radiation optimization: All CT scans at this facility use at least one of these dose optimization techniques: automated exposure control; mA and/or kV adjustment per patient size (includes targeted exams where dose is matched to clinical indication); or iterative reconstruction. COMPARISON: CT CHEST/ABD/PEL W 02/05/2019 13:58 FINDINGS: Lungs: Bibasilar reticular markings and emphysematous changes the lung akhtar and pleural thickening similar to the prior study. Heart: Cardiomegaly. Liver: Normal. No mass. Gallbladder and bile ducts: Normal. No calcified stones. No ductal dilation. Pancreas: Normal. No ductal dilation. Spleen: Normal. No splenomegaly. Adrenals: Normal. No mass. Kidneys and ureters: Nonobstructing right renal calculi. Left hydroureteral nephrosis secondary to a 0.5 cm mid ureteral stone series 2 image 53. Left perirenal fat and periureteral fat infiltration. Stomach and bowel: Diverticulosis sigmoid colon. Appendix: Large solid stool load. Appendicolith within the appendix series 2 image 56 with mild periappendiceal fat infiltration series 2 image 53 through 57. Intraperitoneal space: Unremarkable. No free air. No significant fluid collection. Vasculature: Coronary artery disease. Atherosclerotic disease. Lymph nodes: Unremarkable. No enlarged lymph nodes. Bladder: Unremarkable as visualized. Reproductive: Unremarkable as visualized. Bones/joints: Total right hip arthroplasty. Multilevel degenerative changes of the thoracic and lumbar spine. 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 Possible postsurgical changes of L5 posterior spinous processes. Degenerative changes of the left hip. Soft tissues: Fat distention of the inguinal canals. Umbilical hernia with omental fat. IMPRESSION: 1. Left hydroureteronephrosis secondary to a mid ureteral 0.5 cm stone. 2. Appendicolith within the appendix with mild inflammatory changes as discussed above. Dictated and Authenticated by: Mary Partida MD. Ordering:ROSETTE Aggarwal MD
[2019-07-25 19:29] LABS: Bilirubin Negative (Negative); Blood Large (Negative); Clarity Clear (Clear); Glucose Negative (Negative); Ketones Trace mg/dL (Negative); Leukocyte Esterase Negative (Negative); Nitrite Negative (Negative); Specific Gravity 1.015 (1.005-1.025); Urobilinogen 0.2 EU/dL (Up TO 0.2); pH 5.5 (5-8)
[2019-07-25 19:33] LABS: Bacteria Negative HPF (Negative); C & S Indicated? No; Casts Negative LPF (Negative); Crystals Negative HPF (Negative); Epithelial Cells Negative HPF (Negative); Mucus Negative (Negative); Other Cells Negative (Negative); RBC >50 HPF (0-2)
--- NOTE | 2019-07-25 20:45 | NUR.NOTE ---
[facility] arrive to transport pt to [facility] [place]. Pt pain free at this time. Report to Josy. Pt transported with all belongings.
== END 2019-07-25 20:35 | disposition short-term general hospital (02) ==
PROVIDERS: Emergency Provider Student in an Organized Health Care Education/Training Program; PCP Specialist/Technologist Athletic Trainer
DX: K35.80 Unspecified acute appendicitis (principal); K38.1 Appendicular concretions; N13.2 Hydronephrosis with renal and ureteral calculous obstruction; R10.9 Unspecified abdominal pain; G20 Parkinson's disease
CPT/HCPCS: 51702; 80053; 83690; 96361; 96374; 99285; 74176; 81003; 81015; 83605; 85025; 87324; 99284; J0131

== ENCOUNTER → 2019-08-04 12:43 | Outpatient (BNVA) | payer MEDICARE, SELFPAY | PROVIDERS: PCP Specialist/Technologist Athletic Trainer; Referring Provider Specialist/Technologist Athletic Trainer; Visit Provider Surgery | DX: Z51.89 Encounter for other specified aftercare (principal); S81.801D Unspecified open wound, right lower leg, subsequent encounter; L08.9 Local infection of the skin and subcutaneous tissue, unspecified; R19.7 Diarrhea, unspecified; R10.32 Left lower quadrant pain; T36.0X5A Adverse effect of penicillins, initial encounter; X58.XXXD Exposure to other specified factors, subsequent encounter | CPT/HCPCS: 99213 ==

== ENCOUNTER → 2019-08-25 10:22 | Outpatient (BNVA) | payer MEDICARE, SELFPAY | PROVIDERS: PCP Specialist/Technologist Athletic Trainer; Referring Provider Specialist/Technologist Athletic Trainer; Visit Provider Surgery | DX: S81.801D Unspecified open wound, right lower leg, subsequent encounter (principal); X58.XXXD Exposure to other specified factors, subsequent encounter; I73.9 Peripheral vascular disease, unspecified; L08.9 Local infection of the skin and subcutaneous tissue, unspecified | CPT/HCPCS: 99212; 99213 ==

== ENCOUNTER → 2019-08-26 15:02 | Outpatient (BNVA) | payer MEDICARE, SELFPAY | PROVIDERS: PCP Specialist/Technologist Athletic Trainer; Referring Provider Specialist/Technologist Athletic Trainer; Visit Provider Nurse Practitioner Gerontology | DX: N13.2 Hydronephrosis with renal and ureteral calculous obstruction (principal); G20 Parkinson's disease; N40.1 Benign prostatic hyperplasia with lower urinary tract symptoms; R39.11 Hesitancy of micturition | CPT/HCPCS: 99204; 99215 ==

== ENCOUNTER 2019-09-03 03:17 | Outpatient (CLI) | payer MEDICARE, SELFPAY ==
--- NOTE | 2019-09-03 12:17 | DI.US_ITS ---
EXAM: US RENAL CLINICAL HISTORY: checking for left hydro resolution N13.2 HYDRONEPHROSIS TECHNIQUE: Ultrasound performed using standard protocol. COMPARISON: Cardiac from 12/18/2018 FINDINGS: The kidneys are normal in size and shape. There is no evidence of hydronephrosis. There is an appar ent midpole right renal calculus measuring about 7 millimeters in diameter. Pre and postvoid urinary bladder volume measurements are 58 cc and 11 cc respectively. Ureteral jets are seen bilaterally. IMPRESSION: Resolution of previously described left hydronephrosis. Nonobstructing right renal calculus.
== END 2019-09-03 03:37 ==
PROVIDERS: PCP Specialist/Technologist Athletic Trainer; Visit Provider Nurse Practitioner Gerontology
DX: N13.2 Hydronephrosis with renal and ureteral calculous obstruction (principal); N20.0 Calculus of kidney
CPT/HCPCS: 76770

== ENCOUNTER → 2019-09-06 14:46 | Outpatient (BNVA) | payer MEDICARE, SELFPAY | PROVIDERS: PCP Specialist/Technologist Athletic Trainer; Referring Provider Specialist/Technologist Athletic Trainer; Visit Provider Nurse Practitioner Gerontology | DX: N20.0 Calculus of kidney (principal); N40.0 Benign prostatic hyperplasia without lower urinary tract symptoms | CPT/HCPCS: 99213 ==

== ENCOUNTER → 2019-09-10 11:18 | Outpatient (BNVA) | payer MEDICARE, SELFPAY | PROVIDERS: PCP Specialist/Technologist Athletic Trainer; Referring Provider Specialist/Technologist Athletic Trainer; Visit Provider Surgery | DX: S81.801D Unspecified open wound, right lower leg, subsequent encounter (principal); L08.9 Local infection of the skin and subcutaneous tissue, unspecified; I73.9 Peripheral vascular disease, unspecified; R19.7 Diarrhea, unspecified; R10.32 Left lower quadrant pain; X58.XXXD Exposure to other specified factors, subsequent encounter | CPT/HCPCS: 99212 ==

== ENCOUNTER 2020-05-10 14:26 | Outpatient (REF) | payer MEDICARE, SELFPAY ==
[2020-05-10 21:12] LABS: HCT 39.1 % (40.0-50.0); HGB 13.4 g/dL (13.5-17.5); MCH 36.2 pg (27.0-33.0); MCHC 34.3 % (32.0-36.0); MCV 105.7 fL (80-95); MPV 9.9 fL (8.0-11.0); Platelet Count 177 10^3/uL (130-400); RDW 13.3 % (11.8-14.1); WBC 7.44 10^3/uL (4.4-10.8)
[2020-05-10 22:13] LABS: Anion Gap 5.6 mmol/L (3-11); BUN 15 mg/dL (7-18); CO2 31.4 mmol/L (21.0-32.0); CREATININE 1.23 mg/dL (0.70-1.30); Calcium 9.2 mg/dL (8.5-10.1); Chloride 106 mmol/L (98-107); Estimated GFR 56.76 (mL/min/1.73m2); Ferritin 45 ng/mL (26-388); Glucose 92 mg/dL (74-106); Iron 97 ug/dL (65-175); Potassium 4.8 mmol/L (3.5-5.1); Sodium 143 mmol/L (136-145); TSH 1.63 uIU/mL (0.36-3.74); Total Iron Binding Capacity 302 ug/dL (250-450); Transferrin Sat 32 % (20-55)
== END 2020-05-10 14:46 ==
LOC: NCHCN 14:26
PROVIDERS: PCP Specialist/Technologist Athletic Trainer; Visit Provider Nurse Practitioner Family
DX: D64.9 Anemia, unspecified (principal); E03.9 Hypothyroidism, unspecified; R94.4 Abnormal results of kidney function studies
CPT/HCPCS: 80048; 85027; 82728; 83540; 83550; 84443

== ENCOUNTER 2020-09-04 01:58 | Outpatient (CLI) | payer MEDICARE, SELFPAY ==
--- NOTE | 2020-09-04 08:30 | DI.RAD_ITS ---
EXAM: XR ABDOMEN FLAT PLATE CLINICAL HISTORY: monitoring right kidney stone, hx of renal calculi, Z87.442. TECHNIQUE: 2D digital imaging was performed. COMPARISON: CT CT ABDOMEN PELVIS WO from 07/25/[address] ABDOMEN PELVIS WO from 07/25/2019 FINDINGS: There is a 5-6 millimeter calculus at the midpole right kidney, seen on the recent CT scan. There ar e no radiopaque calculi seen over the left kidney. No obvious radiopaque calculi seen along the cour se of the left ureter. Phlebolith noted in the lower left pelvis. 2 millimeter round calcification also noted slightly higher up in the pelvis, possibly significant given history here. There is right hip prosthesis noted. I ileus pattern evident. IMPRESSION: Mid-level right renal calculus again noted, as evident on the July 2019 CT scan. Difficult to identify an obvious radiopaque calculus on the left side. There is a 2 millimeter calci fication left side of the pelvis which may or may not be related to the ureter. It is probably a phl ebolith. DATA REPOSITORY: RADIATION DOSE DELIVERED:
== END 2020-09-04 02:18 ==
PROVIDERS: Visit Provider Nurse Practitioner Gerontology
DX: N20.0 Calculus of kidney (principal); N40.0 Benign prostatic hyperplasia without lower urinary tract symptoms
CPT/HCPCS: 99213; 74018

== ENCOUNTER 2020-09-11 02:24 | Outpatient (CLI) | payer MEDICARE, SELFPAY ==
--- NOTE | 2020-09-11 | DI.CT_ITS ---
EXAM: CT SINUS WO CLINICAL HISTORY: RHINORRHEA,J34.89,POST NASAL DRIP,R09.82,FREQ HEADACHES,R51.9. TECHNIQUE: Imaging Protocol: Axial computed tomography images with coronal and sagittal reformatted images were created and reviewed. No IV Contrast COMPARISON: No exams were available for comparison FINDINGS: MAXILLARY SINUSES: There is mucosal thickening evident in the floor both maxillary sinuses. Mucosal thickening in the f isidro of the left maxillary sinus contains some calcific density-mucoperiosteal thickening but without obvious bone dehiscence at this level. There are no obvious surgical defects evident in the medial jackson of the maxillary sinuses OSTIOMEATAL UNITS: The left ostiomeatal unit is patent. The right ostiomeatal unit is opacified at t he level of the hiatus semilunaris. ETHMOIDAL AIR CELLS: There is opacification of a few right-sided ethmoid air cells. Left-sided air c ells are clear. SPHENOID SINUSES: Well aerated. Generous size extending to the base of the dorsum sella. There is n o mucosal thickening nor fluid levels. FRONTAL SINUSES: There is mucosal thickening in both frontal sinuses, more so on the right. There is no associated fluid level. NASAL SEPTUM AND TURBINATES:Nasal septum is midline with no evidence of significant nasal septal spur . There is no evidence of lesvia bullosa. IMPRESSION: Multilevel mucosal thickening as described above with sparing of the sphenoid sinuses. The mucosal thickening in the floor of the left maxillary sinuses is 0 seated with periosteal thicken ing at this level as well as some calcification within the mucosal thickening at this level. The left ostiomeatal unit is patent. There is opacification of the right ostiomeatal unit. There ar e no surgical defects evident. RADIATION DOSE DELIVERED: 135.12mGy.cm Total DLP DATA REPOSITORY: All CT scans at this facility are submitted to the National Radiology Data Registry (NRDR) Dose Index Registry (DIR) with the [employer] ([employer]). RADIATION OPTIMIZATION: All CT scans at this facility use at least one of these dose optimization te chniques: automated exposure control; mA and/or kV adjustment per patient size (includes targeted exa ms where dose is matched to clinical indication); or iterative reconstruction.
== END 2020-09-11 02:44 ==
PROVIDERS: Visit Provider Otolaryngology Otolaryngology/Facial Plastic Surgery
DX: J34.89 Other specified disorders of nose and nasal sinuses (principal); R09.82 Postnasal drip; R51.9 Headache, unspecified
CPT/HCPCS: 70486

== ENCOUNTER 2020-11-07 20:38 | Outpatient (REF) | payer MEDICARE, SELFPAY ==
[2020-11-07 20:46] LABS: HCT 40.4 % (40.0-50.0); HGB 13.7 g/dL (13.5-17.5); MCH 35.4 pg (27.0-33.0); MCHC 33.9 % (32.0-36.0); MCV 104.4 fL (80-95); MPV 9.6 fL (8.0-11.0); Platelet Count 213 10^3/uL (130-400); RBC 3.87 10^6/uL (4.36-5.78); RDW 12.5 % (11.8-14.1); RDW-SD 48.4 fL; WBC 9.78 10^3/uL (4.4-10.8)
[2020-11-07 21:15] LABS: Anion Gap 10.2 mmol/L (3-11); BUN 14 mg/dL (7-18); CO2 26.8 mmol/L (21.0-32.0); CREATININE 1.4 mg/dL (0.70-1.30); Calcium 8.9 mg/dL (8.5-10.1); Chloride 102 mmol/L (98-107); Estimated GFR 48.76 (mL/min/1.73m2); Glucose 105 mg/dL (74-106); Potassium 4.4 mmol/L (3.5-5.1); Sodium 139 mmol/L (136-145); TSH (W/Ref FT4) 2.11 uIU/mL (0.36-3.74)
[2020-11-08 11:29] LABS: ESR 16 mm/hr (<or=20)
[2020-11-09 05:57] LABS: Vitamin D 25 Total 30.7 ng/ml (30-100)
== END 2020-11-07 20:39 | disposition home or self-care (01) ==
LOC: NCHCN 20:38
PROVIDERS: Visit Provider Nurse Practitioner Family
DX: E03.9 Hypothyroidism, unspecified (principal); M15.8 Other polyosteoarthritis; M35.3 Polymyalgia rheumatica; R51.9 Headache, unspecified
CPT/HCPCS: 80048; 82306; 85027; 85652; 83735; 84443

== ENCOUNTER 2020-11-10 04:34 | Outpatient (CLI) | payer MEDICARE, SELFPAY ==
--- NOTE | 2020-11-10 10:02 | DI.RAD_ITS ---
EXAM: XR CHEST 2V PA LATERAL CLINICAL HISTORY: RESPIRATORY CRACKLES, R09.89 TECHNIQUE: 2D digital imaging was performed. COMPARISON: CR XR CHEST 2V PA LATERAL from 11/09/2018 FINDINGS: MEDIASTINUM: Normal. HEART: Normal. PULMONARY VASCULATURE: Normal. LUNGS: No focal consolidating infiltrates. Mild prominence of the interstitium is noted which may be chronic but an acute interstitial process such as edema or pneumonia cannot be excluded. PLEURAL SPACE: No pleural effusion or pneumothorax. BONE:Within normal limits for the patient's age. OTHER FINDINGS:Normal. IMPRESSION: Mild prominence of the interstitium. This may reflect chronic fibrosis but an acute interstitial satnam ma or pneumonia cannot be excluded. DATA REPOSITORY: RADIATION DOSE DELIVERED:
== END 2020-11-10 04:54 ==
PROVIDERS: PCP Nurse Practitioner Family; Visit Provider Nurse Practitioner Family
DX: R09.89 Other specified symptoms and signs involving the circulatory and respiratory systems (principal); R91.8 Other nonspecific abnormal finding of lung field
CPT/HCPCS: 71046

== ENCOUNTER 2020-12-08 15:10 | Outpatient (REF) | payer MEDICARE, SELFPAY ==
[2020-12-08 20:12] LABS: NT-proBNP 673 pg/mL (<300)
== END 2020-12-08 15:11 | disposition home or self-care (01) ==
LOC: NCHCN 15:10
PROVIDERS: PCP Nurse Practitioner Family; Visit Provider Nurse Practitioner Family
DX: R06.02 Shortness of breath (principal); R09.89 Other specified symptoms and signs involving the circulatory and respiratory systems
CPT/HCPCS: 83880

== ENCOUNTER 2021-01-12 04:39 | Outpatient (CLI) | payer MEDICARE, SELFPAY ==
--- NOTE | 2021-01-12 11:10 | DI.RAD_ITS ---
Exam(s) XR HIP RT COMPLETE AP PELVIS EXAM: XR HIP RT COMPLETE AP PELVIS INDICATION: RT HIP PAIN, [id number]. COMPARISON: No exams were available for comparison TECHNIQUE: 2D digital imaging was performed. FINDINGS: Patient has a right total hip replacement. The orthopedic hardware appears in good position with no evidence of loosening or infection. No acute osseous fracture or dislocation. Moderate degenerative changes are seen in the left hip with joint space narrowing, periarticular spurring and osteophytes. The soft tissues are unremarkable. IMPRESSION: No acute fracture or dislocation. DATA REPOSITORY: RADIATION DOSE DELIVERED:
== END 2021-01-12 04:59 ==
PROVIDERS: PCP Nurse Practitioner Family; Visit Provider Nurse Practitioner Family
DX: M25.551 Pain in right hip (principal); Z96.641 Presence of right artificial hip joint
CPT/HCPCS: 73502

== ENCOUNTER 2021-04-13 04:06 | Outpatient (CLI) | payer MEDICARE, SELFPAY ==
--- NOTE | 2021-04-13 | DI.MRI_ITS ---
Exam(s) MR LUMBAR SPINE WO EXAM: MR LUMBAR SPINE WO CLINICAL HISTORY: LUMBAR RADICULOPATHY,M54.16. TECHNIQUE: Multiplanar multisequence MRI was performed. COMPARISON: No exams were available for comparison FINDINGS: MR examination of the lumbosacral spine was performed according to the usual protocol. No significan t bony signal abnormality seen. The conus medullaris appears intact. At L4-5, there is a moderate disc bulge without focal disc herniation. There is a probable small vinnie ular tear at this level. There is no evidence of central canal spinal stenosis or neural foraminal s tenosis at L4-5. No other significant findings from the T11-12 level through the L5-S1 level. IMPRESSION: Disc bulge and annular tear at L4-5 without discrete disc herniation. No evidence of impingement thi s level. No other significant findings in the region surveyed. DATA REPOSITORY:
== END 2021-04-13 04:26 ==
PROVIDERS: PCP Nurse Practitioner Family; Visit Provider Nurse Practitioner
DX: M51.16 Intervertebral disc disorders with radiculopathy, lumbar region (principal)
CPT/HCPCS: 72148

== ENCOUNTER 2021-05-29 15:57 | Outpatient (REF) | payer MEDICARE, SELFPAY ==
[2021-05-29 21:44] LABS: HCT 44.7 % (40.0-50.0); HGB 14.6 g/dL (13.5-17.5); MCHC 32.7 % (32.0-36.0); MCV 110.1 fL (80-95); MPV 10.3 fL (8.0-11.0); Platelet Count 262 10^3/uL (130-400); RBC 4.06 10^6/uL (4.36-5.78); RDW 12.3 % (11.8-14.1); RDW-SD 50.9 fL; WBC 11.84 10^3/uL (4.4-10.8)
[2021-05-29 22:06] LABS: Iron 132 ug/dL (65-175); Total Iron Binding Capacity 315 ug/dL (250-450); Transferrin Sat 42 % (20-55)
[2021-05-29 22:30] LABS: Anion Gap 10.1 mmol/L (3-11); BUN 27 mg/dL (7-18); CO2 28.9 mmol/L (21.0-32.0); CREATININE 1.7 mg/dL (0.70-1.30); Calcium 9.5 mg/dL (8.5-10.1); Chloride 104 mmol/L (98-107); Estimated GFR 38.97 (mL/min/1.73m2); Glucose 93 mg/dL (74-106); Potassium 5.7 mmol/L (3.5-5.1); Sodium 143 mmol/L (136-145)
[2021-05-29 23:12] LABS: Vitamin B12 242 pg/mL (193-986)
[2021-05-29 23:32] LABS: NT-proBNP 655 pg/mL (<300)
== END 2021-05-29 15:58 | disposition home or self-care (01) ==
LOC: NCHCN 15:57
PROVIDERS: PCP Nurse Practitioner Family; Visit Provider Nurse Practitioner Family
DX: R53.83 Other fatigue (principal)
CPT/HCPCS: 80048; 85027; 82607; 83540; 83550; 83880

== ENCOUNTER 2021-06-28 02:03 | Outpatient (CLI) | payer MEDICARE, SELFPAY ==
--- NOTE | 2021-06-28 | DI.US_ITS ---
APPROVED REPORT EXAM: Comprehensive 2D, Doppler, and color-flow Echocardiogram Patient Location: Out-Patient [employer] Coach: Paula Romero RDCS (AE) Indications: Fatigue, SOB Other Information Study Quality: Adequate Conclusion Normal left ventricular wall thickness and chamber size. Estimated ejection fraction is 55%. There ar e no segmental wall motion abnormalities Normal right ventricular size and systolic function Both atria are normal in size Aortic valve is trileaflet and mildly sclerotic with mild regurgitation. No aortic stenosis. Normal mitral valve with mild regurgitation Normal tricuspid valve with trace to mild regurgitation Normal pulmonic valve with trace to mild regurgitation Dilated aortic root and ascending aorta Wall motion Left Ventricle The left ventricle is normal size. The overall left ventricular systolic function appears normal. The re is normal left ventricular wall thickness. There is normal LV segmental wall motion. There is no v entricular septal defect visualized. LVEF is 55%. Right Ventricle The right ventricle is normal size. The right ventricular systolic function is normal. Atria The left atrium size is normal. The right atrium size is normal. The interatrial septum is intact wit h no evidence for an atrial septal defect. Aortic Valve The Aortic valve is sclerotic. Aortic valve is trileaflet. There is no aortic valvular stenosis. Mild aortic regurgitation. Mitral Valve The mitral valve is normal in structure. No evidence of mitral valve stenosis. Mild mitral regurgitat ion. Tricuspid Valve The tricuspid valve is normal in structure. There is no tricuspid valve stenosis. Trace to mild tricu spid regurgitation. Pulmonic Valve The pulmonary valve is normal in structure. There is no pulmonic valvular stenosis. Trace to mild pul sally regurgitation. Great Vessels Aortic root is mildly dilated.4.09 cm The ascending aorta is dilated.4.49 cm Aortic arch is normal in caliber. The IVC was not visualized, technically limited subcostal imaging. Pericardium There is no pericardial effusion. 2D Dimensions IVSD d PLAX 1.18 cm M: 0.6-1.2 LV Vol A2C d MOD 139.1 mL LVPW d PLAX 1.12 cm M: 0.6 - 1.2 LV Vol A4C d MOD 128.8 mL LVID d PLAX 4.62 cm M: 4.2 - 5.8 LA vol/ BSA A2C s A-L 19.7 mL/m2 LVDs 3.35 cm M: 2.5 - 4.0 LA vol/ BSA A4C s A-L 18.2 mL/m2 Ao Root d 4.09 cm M: 3.1 - 3.7 LA Vol/ BSA Biplane s A-L 20.1 mL/m2 RA Area A4C 10.33 cm2 LA Area A4C s MOD 14.17 cm2 RA Vol/ BSA A4C s A-L 11.1 mL/m2 LA Area A2C s MOD 13.88 cm2 Ao Asc Diam d 4.49 cm M: 2.6 - 3.4 LV EF A4C MOD 53.8 % LV EF Teichholz 52.1 % LV EF A2C MOD 53.4 % LVEF (Salguero's) 55.20 % M: 52 - 72 LV EF Biplane MOD 55.2 % LV Volume 102.71 mL M: 62 - 150 SV 76.40 mL LV Volume Index 49.85 mL/m2 M: 34 - 74 SV Index 36.99 mL/m2 LV Vol Biplane MOD 138.4 mL FS 26.60 % M-Mode TAPSE 1.55 cm (M/F) >1.7 LV Diastology MV E' medial 0.060 (>0.07 m/s) E/A Ratio 0.8 LV E/e MED 11.90 (<14) MV E Vmax 0.71 (0.4-1.3 m/s) MV E' lateral 0.083 (>0.1 m/s) MV A Vmax 0.85 (0.4-1.3 m/s) LV E/e LAT 8.50 (<14) MV E/A Ratio 0.83 MV E/E' medial 11.91 MV E/E' lateral 8.55 Aortic Valve LVOT Area 4.04 cm2 AoV Area Vmax 3.84 cm2 LVOT Vmax 1.02 m/s AoV Area/ BSA (Vmax) 1.86 cm2/m2 LVOT Mean Arya. 0.76 m/s AYE Mean Arya. 4.00 cm2 LVOT Peak Grad 4.1 mmHg AYE Mean Arya. Index 1.94 cm2/m2 LVOT Mean Grad 2.5 mmHg AR DT 1191 msec LVOT VTI 0.248 m AR PHT 345 msec LVOT Diam s 2.25 cm AoV Vmax 1.07 m/s Velocity Ratio 0.95 AoV Mean Arya. 0.76 m/s AoV Peak Grad 4.6 mmHg LVOT SV 100.07 mL AoV Mean Grad 2.6 mmHg AoV VTI 0.242 m AoV Area VTI 4.14 cm2 AoV Area/ BSA (VTI) 2.01 cm/m2 Mitral Valve MV DT 279 (160-240 msec) MR Vmax 5.13 m/s MV PHT 81 msec MR VTI 1.847 m MV Area PHT 2.72 cm2 MR Peak Grad 105.4 mmHg MV VTI 0.309 m MR Mean Grad 76.5 mmHg MV VTI Annulus 0.318 m MR PISA Radius 0.43 cm MV Area VTI 3.34 (4.0-6.0 cm2) MR EROA 0.08 cm2 MR Aliasing Velocity 0.35 m/s MR PISA 1.18 cm2 Pulmonary Valve PV Vmax 0.97 (0.5-1.5 m/s) RVOT Peak Gr. 1.44 mmHg PV Peak Grad 3.7 mmHg RVOT Mean Gr. 0.90 mmHg PV Mean Grad 2.2 mmHg RVOT VTI 0.135 m PV VTI 0.247 m RVOT Vmax 0.60 m/s Tricuspid Valve TR Peak Grad 23.7 mmHg TR Vmax 2.44 m/s
== END 2021-06-28 02:23 ==
PROVIDERS: PCP Nurse Practitioner Family; Visit Provider Nurse Practitioner Family
DX: R06.02 Shortness of breath (principal); R53.83 Other fatigue; I08.3 Combined rheumatic disorders of mitral, aortic and tricuspid valves; I77.810 Thoracic aortic ectasia
CPT/HCPCS: 93306

== ENCOUNTER 2021-08-03 00:43 | Outpatient (CLI) | payer MEDICARE, SELFPAY ==
--- NOTE | 2021-08-03 | DI.CT_ITS ---
Exam(s) CT SINUS WO EXAM: CT SINUS WO CLINICAL HISTORY: CHRONIC SINUSITIS, J32.9. Evaluate for sinusitis. TECHNIQUE: Imaging Protocol: Axial computed tomography images with coronal and sagittal reformatted images were created and reviewed. COMPARISON: CT CT SINUS WO from 09/11/2020 FINDINGS: AXIAL IMAGES: Frontal sinuses: Improvement in previously noted mucous retention. Minimal mucosal thickening. Ethmoid air cells: Minimal mucosal thickening.. Maxillary sinuses: Stable appearance of mucous retention at the floors of both maxillary sinuses.. Sphenoid sinus: Normally aerated. Ostiomeatal complexes: Patent. Osseous nasal septum: Midline. Visualized regional soft tissues: No acute findings. Orbits: Unremarkable. Bones: Unremarkable. Mastoid Air Cells: Normally aerated. IMPRESSION: Improvement in sinus aeration, particularly in the frontal region. No new abnormalities. RADIATION DOSE DELIVERED: 130.63mGy.cm Total DLP DATA REPOSITORY: All CT scans at this facility are submitted to the National Radiology Data Registry (NRDR) Dose Index Registry (DIR) with the [employer] ([employer]). RADIATION OPTIMIZATION: All CT scans at this facility use at least one of these dose optimization te chniques: automated exposure control; mA and/or kV adjustment per patient size (includes targeted exa ms where dose is matched to clinical indication); or iterative reconstruction.
== END 2021-08-03 01:03 ==
PROVIDERS: PCP Nurse Practitioner Family; Visit Provider Otolaryngology
DX: J32.9 Chronic sinusitis, unspecified (principal)
CPT/HCPCS: 70486

== ENCOUNTER 2021-08-03 10:42 | Outpatient (CLI) | payer MEDICARE, SELFPAY ==
--- NOTE | 2021-08-03 10:46 | DI.RAD_ITS ---
Exam(s) XR CHEST 2V PA LATERAL EXAM: XR CHEST 2V PA LATERAL CLINICAL HISTORY: RESPIRATORY CRACKLES, R09.89 TECHNIQUE: 2D digital imaging was performed. COMPARISON: CR XR CHEST 2V PA LATERAL from 11/10/2020 FINDINGS: Heart size is normal. The aorta is tortuous, unchanged. There are underlying fibrotic changes. No superimposed infiltrate, effusion or pulmonary edema is seen. Degenerative changes are noted in the spine. Scoliosis is also present. IMPRESSION: Mild fibrotic changes. No acute abnormality. DATA REPOSITORY: RADIATION DOSE DELIVERED:
== END 2021-08-03 11:02 ==
PROVIDERS: PCP Nurse Practitioner Family; Visit Provider Nurse Practitioner Family
DX: R09.89 Other specified symptoms and signs involving the circulatory and respiratory systems (principal)
CPT/HCPCS: 70486; 71046

== ENCOUNTER 2021-08-27 11:32 | Inpatient (IN) | payer MEDICARE, SELFPAY ==
[2021-08-27] VITALS (22 sets, daily range): BP systolic 95–164; BP diastolic 51–72; PULSE 66–96; RESP 14–35; TEMP 36.7–38.2; O2SAT 94–97
--- NOTE | 2021-08-27 | DI.US_ITS ---
Exam(s) US RENAL EXAM: US RENAL CLINICAL HISTORY: pyelonephritis. TECHNIQUE: Ambriz scale, color and spectral Doppler were used. COMPARISON: CT CT ABDOMEN PELVIS WO from 08/27/2021 FINDINGS: Exam is limited by patient by body habitus. Renal size in cm: Right: 12.4 left: 12.7 Echogenicity: Normal Hydronephrosis: No Cyst or mass: No Nephrolithiasis: No stones visible. Bladder:Normal Prevoid vol:123 cc Postvoid vol:Not performed Prostate not visible IMPRESSION: No evidence of hydronephrosis. Non-obstructing stone seen at lower pole of right kidney on previous CT not identified on the current exam. DATA REPOSITORY:
--- NOTE | 2021-08-27 11:30 | RT.EKG_ITS ---
APPROVED REPORT Exam: Resting ECG Reason for Exam: sob,dizziness Patient Location: E HR:96 bpm ECG Measurements Heart Rate 96 AXIS NE 147 P 23 QRSd 104 QRS -45 QT 361 T 41 QTc 457 Conclusion Sinus rhythm...normal P axis, V-rate 60- 99 Left anterior fascicular block...axis(240,-40), init forces inf Probable left ventricular hypertrophy...(RaVL+SV3)xQRSd >280 sinus rhythm at 90, left anterior fascicular block, LVH seen on prior, no STEMI, nondiagnostic EKG
--- NOTE | 2021-08-27 12:00 | DI.RAD_ITS ---
Exam(s) XR PORTABLE CHEST AP EXAM: XR PORTABLE CHEST AP CLINICAL HISTORY: cough TECHNIQUE: 2D digital imaging was performed. COMPARISON: CR XR CHEST 2V PA LATERAL from 08/03/2021 FINDINGS: LUNGS: Suboptimal pulmonary inflation. Underlying fibrotic changes. No focal consolidation. No ple ural abnormality seen. HEART: Normal size. MEDIASTINUM: Tortuous aorta. BONES: Old right rib fractures. Degenerative changes and scoliosis in the spine. IMPRESSION: No acute pulmonary findings. DATA REPOSITORY: RADIATION DOSE DELIVERED:
[2021-08-27 12:23] LABS: Source Nasal/Nares
--- NOTE | 2021-08-27 12:56 | ED.GENADUL_ITS ---
Discharge Plan Disposition Patient Disposition: [facility] INPATIENT Condition: Stable Discharge Details Clinical Impression: UTI (urinary tract infection), ANDRZEJ (acute kidney injury) Admit Date/Time: 08/27/21 15:54 Admit Provider: Edwin Reinoso Attending Provider: Edwin Reinoso Primary Care Provider: Ana Wilkes ED Provider: Allegra Camarillo Discharge Data Discharge Date/Time-TO BE ENTERED AT DEPARTURE: 08/27/21 17:23 Medical Decision Making Wilfrido Solorzano is an 81-year-old man with a history of peripheral artery disease, hypothyroidism, hypertension, Parkinson's disease, polymyalgia rheumatica who presented with fever abdominal pain. On exam patient appears somewhat uncomfortable but no distress. Not acutely toxic appearing. Mild right upper quadrant tenderness to palpation on abdominal exam without peritoneal signs. Benign cardiopulmonary exam. Concern for intra-abdominal source of fever, pneumonia, UTI, metabolic/lyte derangement, other. Doubt acute coronary syndrome. Plan for IV placement, EKG, screening labs, UA, chest x-ray. Exam/history at this time is not consistent with acute aortic process, pulmonary embolism, meningitis, other acute central nervous system infection. Labs reviewed, WBC 20, hemoglobin 14.0, lactate 3.2. Creatinine 2.5, baseline 05/[address] abdomen/pelvis without contrast. UA consistent with UTI. CT abdomen pelvis nondiagnostic. Plan to treat suspected pyonephritis ceftriaxone, plan for admission. Medical Records Medical records reviewed: Yes I reviewed the patient's medical records. Imaging Data Radiologic Study: Attestation: I personally reviewed and interpreted this imaging study as follows: Radiologist's impression: EXAM: CT ABDOMEN PELVIS WO CLINICAL HISTORY: RUQ abd pain. TECHNIQUE: Imaging Protocol: Axial computed tomography images with coronal and sagittal reformatted images were created and reviewed. Oral: / no COMPARISON: CT CT ABDOMEN PELVIS WO from 07/25/2019 CR XR PORTABLE CHEST AP from 08/27/2021 CR XR PORTABLE CHEST AP from 08/27/2021 FINDINGS: ABDOMEN: Lung Bases: Fibrotic changes and emphysematous changes at the lung bases. Ectatic aorta.. Stable small pericardial cyst adjacent to right atrium. Liver: Normal density. No measurable mass. Gallbladder and biliary tract: No radiodense calculus or dilation. Pancreas: Normal density, no abnormal calcifications or inflammatory process. Spleen: Normal. Kidneys: Normal size, contour and axis. 8 millimeter stone lower pole right kidney. No obstructive uropathy. No masses seen. Adrenal glands: No masses seen. Lymph nodes: Within normal limits. Abdominal Aorta: Abdominal portion non-dilated. Tiny fatty containing umbilical hernia. PELVIS: Bladder: Symmetric distention, no gross wall thickening. Bowel: Diverticulosis without evidence of diverticulitis. No obstruction or bowel wall thickening. Peritoneal cavity: No ascites, collection or mesenteric inflammatory response. Reproductive organs: Within normal limits. Bones: Old right rib fractures.. Right hip prosthesis. Degenerative changes greatest of the facet joints at the lower lumbar levels. IMPRESSION: Nonobstructing stone lower pole right kidney. Liver and gallbladder are unremar kable without contrast. Lab Data Lab results reviewed: Yes I reviewed the patient's lab results. Labs: 08/27/21 13:34 Urine - Reflex from Ua Urine Culture - Pending 08/27/21 13:15 Blood Blood Culture - Pending 08/27/21 12:45 Blood Blood Culture - Pending Laboratory Tests Range/Units 08/27/21 08/27/21 08/27/21 12:20 12:45 12:45 WBC (4.4-10.8) 10^3/uL 20.13 H RBC (4.36-5.78) 10^6/uL 4.02 L Hgb (13.5-17.5) g/dL 14.0 Hct (40.0-50.0) % 41.5 MCV (80-95) fL 103.2 H MCH (27.0-33.0) pg 34.8 H MCHC (32.0-36.0) % 33.7 RDW (11.8-14.1) % 12.3 Plt Count (130-400) 10^3/uL 161 MPV (8.0-11.0) fL 9.5 Immature Gran % 1.4 Neutrophils % 90.9 Lymphocytes % 2.1 Monocytes % 5.3 Eosinophils % 0.1 Basophils % 0.2 Nucleated RBC % % 0 Absolute Neutrophils (1.2-6.7) 10^3/uL 18.30 H Absolute Lymphocytes (1.2-3.4) 10^3/uL 0.42 L Absolute Monocytes (0.1-0.8) 10^3/uL 1.07 H Absolute Eosinophils (0.0-0.7) 10^3/uL 0.02 Absolute Basophils (0.0-0.2) 10^3/uL 0.04 VBG Lactate (0.6-1.4) mmol/L Sodium (136-145) mmol/L 134 L Potassium (3.5-5.1) mmol/L 4.3 Chloride (98-107) mmol/L 100 Carbon Dioxide (21.0-32.0) mmol/L 25.0 Anion Gap (3-11) mmol/L 9.0 BUN (7-18) mg/dL 31 H Creatinine (0.70-1.30) mg/dL 2.5 H Estimated GFR/1.73 m2 (mL/min/1.73m2) 24.91 Glucose (74-106) mg/dL 114 H Calcium (8.5-10.1) mg/dL 8.4 L Total Bilirubin (0.2-1.0) mg/dL 2.1 H AST (15-37) U/L 18 ALT (16-63) U/L 10 L Alkaline Phosphatase (46-116) U/L 55 Troponin I (<or=60) ng/L Total Protein (6.4-8.2) g/dL 6.4 Albumin (3.4-5.0) g/dL 3.1 L Lipase (73-393) U/L 29 Urine Color (Yellow) Urine Clarity (Clear) Urine pH (5-8) Ur Specific [place] (1.005-1.025) Urine Protein (Negative) mg/dL Urine Ketones (Negative) mg/dL Urine Blood (Negative) Urine Nitrite (Negative) Urine Bilirubin (Negative) Urine Urobilinogen (Up TO 0.2) EU/dL Ur Leukocyte Esterase (Negative) Urine RBC (0-2) HPF Urine WBC (0-5) HPF Ur Epithelial Cells (Negative) HPF Urine Crystals (Negative) HPF Urine Bacteria (Negative) HPF Urine Casts (Negative) LPF Urine Mucus (Negative) Ur Culture Indicated? Urine Glucose (Negative) mg/dL COVID-19 Source Nasal/Nares SARS-CoV-2 (PCR) (Negative) Negative Influenza Type A (PCR) (Negative) Negative Influenza Type B (PCR) (Negative) Negative RSV (PCR) (Negative) Negative Range/Units 12/20/21 12/20/21 12/20/21 12:45 13:25 13:34 WBC (4.4-10.8) 10^3/uL RBC (4.36-5.78) 10^6/uL Hgb (13.5-17.5) g/dL Hct (40.0-50.0) % MCV (80-95) fL MCH (27.0-33.0) pg MCHC (32.0-36.0) % RDW (11.8-14.1) % Plt Count (130-400) 10^3/uL MPV (8.0-11.0) fL Immature Gran % Neutrophils % Lymphocytes % Monocytes % Eosinophils % Basophils % Nucleated RBC % % Absolute Neutrophils (1.2-6.7) 10^3/uL Absolute Lymphocytes (1.2-3.4) 10^3/uL Absolute Monocytes (0.1-0.8) 10^3/uL Absolute Eosinophils (0.0-0.7) 10^3/uL Absolute Basophils (0.0-0.2) 10^3/uL VBG Lactate (0.6-1.4) mmol/L 3.2 H* Sodium (136-145) mmol/L Potassium (3.5-5.1) mmol/L Chloride (98-107) mmol/L Carbon Dioxide (21.0-32.0) mmol/L Anion Gap (3-11) mmol/L BUN (7-18) mg/dL Creatinine (0.70-1.30) mg/dL Estimated GFR/1.73 m2 (mL/min/1.73m2) Glucose (74-106) mg/dL Calcium (8.5-10.1) mg/dL Total Bilirubin (0.2-1.0) mg/dL AST (15-37) U/L ALT (16-63) U/L Alkaline Phosphatase (46-116) U/L Troponin I (<or=60) ng/L < 50 Total Protein (6.4-8.2) g/dL Albumin (3.4-5.0) g/dL Lipase (73-393) U/L Urine Color (Yellow) Yellow Urine Clarity (Clear) Cloudy Urine pH (5-8) 5.5 Ur Specific [place] (1.005-1.025) >= 1.030 H Urine Protein (Negative) mg/dL >=300 H Urine Ketones (Negative) mg/dL Negative Urine Blood (Negative) Small H Urine Nitrite (Negative) Positive H Urine Bilirubin (Negative) Negative Urine Urobilinogen (Up TO 0.2) EU/dL 0.2 Ur Leukocyte Esterase (Negative) Trace H Urine RBC (0-2) HPF 3-5 H Urine WBC (0-5) HPF 10-20 H Ur Epithelial Cells (Negative) HPF Few Urine Crystals (Negative) HPF Negative Urine Bacteria (Negative) HPF Many Urine Casts (Negative) LPF 3-5 Hyaline Urine Mucus (Negative) Heavy Ur Culture Indicated? Yes Urine Glucose (Negative) mg/dL Negative COVID-19 Source SARS-CoV-2 (PCR) (Negative) Influenza Type A (PCR) (Negative) Influenza Type B (PCR) (Negative) RSV (PCR) (Negative) ECG Data Attestation: I personally reviewed and interpreted this ECG (s) as follows: Interpretation: EKG shows sinus rhythm at 90, left anterior fascicular block, LVH seen on prior, no STEMI, nondiagnostic EKG HPI General Mode of arrival: ambulatory . Date/Time Provider Initiated Documentation: 08/27/21 11:41 . Limitations to Documentation: no limitations . Information obtained by: patient, RN notes reviewed and old records reviewed . HPI Narrative: Wilfrido Solorzano is an 81-year-old man with a history of peripheral artery disease, hypothyroidism, hypertension, Parkinson's disease, polymyalgia rheumatica presenting to the emergency department with fever and abdominal pain. Patient reports that since midday yesterday he has had right- sided abdominal pain, generalized body aches, and fatigue. Also has had cough and diarrhea since that time. Reports that he developed a fever this morning. Denies any other pain, shortness of breath, vomiting, numbness, weakness. Previously was in his usual state of health and was eating and drinking normally, has had no appetite since yesterday. Patient reports drinking 2-3 alcoholic drinks per day. Related Data Home Medications Medication Instructions Recorded Confirmed levothyroxine 75 mcg PO DAILY 12/03/16 08/27/21 ropinirole 2 mg PO HS 12/03/16 08/27/21 ibuprofen 400 mg PO PRN PRN 05/02/19 08/27/21 acetaminophen [Tylenol Extra 1,000 mg PO Q4H PRN 06/30/19 08/27/21 Strength] albuterol sulfate 90 mcg/actuation 2 puff IH Q6H PRN 07/30/19 08/27/21 aerosol inhaler furosemide 20 mg tablet 20 mg PO DAILY PRN tab 07/30/19 09/04/20 ipratropium 0.5 mg-albuterol 3 mg 3 ml IH Q6H PRN 07/30/19 08/27/21 (2.5 mg base)/3 mL nebulization soln losartan 50 mg tablet 75 mg PO DAILY 07/30/19 08/27/21 nitroglycerin 0.4 mg sublingual 0.4 mg SL Q5-15M PRN 07/30/19 08/27/21 tablet finasteride 5 mg PO DAILY 08/27/21 08/27/21 montelukast 10 mg PO DAILY 08/27/21 08/27/21 prednisone 5 mg PO DAILY 08/27/21 08/27/21 sertraline 25 mg PO DAILY 08/27/21 08/27/21 tramadol 50 mg PO BID PRN PRN 08/27/21 08/27/21 acidophilus-pectin, citrus See Rx Instructions .ROUTE 09/02/21 .COMPLEX #30 tab cefpodoxime 200 mg PO BID #21 tab 09/02/21 prednisone See Taper PO DAILY #20 tab 09/02/21 tamsulosin 0.8 mg PO DAILY #60 cap 09/02/21 Previous Rx's Medication Instructions Recorded acidophilus-pectin, citrus See Rx Instructions .ROUTE 09/02/21 .COMPLEX #30 tab cefpodoxime 200 mg PO BID #21 tab 09/02/21 prednisone See Taper PO DAILY #20 tab 09/02/21 tamsulosin 0.8 mg PO DAILY #60 cap 09/02/21 Allergies Allergy/AdvReac Type Severity Reaction Status Date / Time Sulfa (Sulfonamide AdvReac Intermediate Its been Verified 08/27/21 11:55 Antibiotics) along time cat dander AdvReac Mild Verified 08/27/21 11:55 penicillin V AdvReac Mild nausea Verified 08/27/21 11:55 salicylates AdvReac Mild up set Verified 08/27/21 11:55 stomach General Stated Complaint: Fever BRYCE: 2 Review of Systems Narrative: Constitutional: Reports fevers Eyes: denies eye pain ENT: denies ear pain, dental pain, sore throat Cardiovascular: denies chest pain, edema Respiratory: denies SOB, reports cough GI: denies vomiting, reports abdominal pain, diarrhea : denies flank pain MSK: denies back pain, neck pain, reports generalized arthralgias, myalgias Skin: denies rash Neuro: denies headaches, numbness, weakness PFSH All Active Problems (Updated 09/03/21 @ 00:04 by [employer]) Sleep apnea (Acute) PAD (peripheral artery disease) (Chronic) Medical History (Updated 09/03/21 @ 00:04 by [employer]) BPH (benign prostatic hyperplasia) Chronic ethmoidal sinusitis Chronic frontal sinusitis Chronic kidney disease Deviated nasal septum Dilated aortic root DVT prophylaxis E coli bacteremia Fractured rib mid Sept 2018 Hypothyroidism Kidney stone Lyme disease Nasal septal spur Nasal turbinate hypertrophy Parkinsons pt. states he does not have Polymyalgia rheumatica pt. reports he has this not parkinsons Pulmonary fat embolism Pyelonephritis due to Escherichia coli Surgical History Hx of colonoscopy Hx of inguinal hernia surgery Hx of total hip arthroplasty right Social History Smoking/Tobacco Use Status: Former Tobacco Use Quit Date: 09/08/81 Smoking risk assessment performed?: Yes Alcohol Intake: current Alcohol Intake frequency: 0-2 drinks per day Alcohol type: beer and hard liquor Drug use: Never Substance use type: does not use Details: daily beer /liquor yesterday 1 beer It was a light day Do you feel safe at home: Yes Do you feel safe in your relationship?: Yes Additional Social history: Abby Flores neightbor/friend [phone] Exam Narrative Exam Narrative: Constitutional: Appears uncomfortable but not in extremis, pleasant, conversing normally HENT: head atraumatic/normocephalic/normal inspection, mucous membranes moist Eyes: conjunctiva normal, sclera normal, pupils 3mm b/l Neck: no stridor, normal ROM, trachea midline Chest: normal inspection Resp: normal work of breathing, lungs clear to auscultation bilaterally Cardio: normal rate, normal rhythm, no murmur appreciated GI: abdomen soft, mild tenderness palpation right upper quadrant, no other abdominal tenderness to palpation, no rebound, no guarding non-distended Back: normal inspection, no rash Skin: warm, dry, normal color, no rash Neuro: alert, not altered, grossly non-focal, normal tone Ext: no edema, no posterior calf tenderness to palpation Psych: normal mood, normal affect, normal behavior Course Vital Signs Vital signs: Vital Signs Temperature 37.4 C 08/27/21 11:48 Pulse 95 H 08/27/21 11:48 Respiratory Rate 24 08/27/21 11:48 Blood Pressure 120/52 L 08/27/21 11:48 Pulse Oximetry 96 08/27/21 11:48 Temperature 37.4 C 08/27/21 11:48 Temperature Source Temporal Artery Scan 08/27/21 11:48 Pulse 95 H 08/27/21 11:48 Respiratory Rate 24 08/27/21 11:48 Respiratory Effort 08/27/21 11:53 Blood Pressure 120/52 L 08/27/21 11:48 Pulse Oximetry 96 08/27/21 11:48 Oxygen Delivery Method Room Air 08/27/21 11:48 Oxygen Flow Rate 0 08/27/21 11:48 Pain Level 4 08/27/21 11:48 Lab/Test Results Lab/Test Results: 08/27/21 12:45 Blood Blood Culture - Pending 08/27/21 12:14 Blood Blood Culture - Pending Laboratory Tests Range/Units 08/27/21 12:20 COVID-19 Source Nasal/Nares PAWSS Have you Been Recently Intoxicated or Drunk Within the Last 30 days?: No Have you Ever Experienced Previous Episodes of Alcohol Withdrawal?: No Have you ever Experienced Withdrawal Seizures?: No Have you ever Experienced Delirium Tremens(DT)s?: No Have you ever undergone Alcohol Rehabilitation Treatment (i.e, inpt ot outpatient treatment programs)?: No Have you ever Experienced Blackouts?: No Have you ever Combined Alcohol with other Downers within the last 90 days?: No Have you ever Combined Alcohol with any other Substance of Abuse during the last 90 days?: No Positive Blood Alcohol level on Presentation? [PCS.BAL]: No Evidence of Increased Autonomic Activity (i.e. HR>120, tremor, sweating, agitation, nausea)?: No Result: 0
[2021-08-27 12:58] LABS: Abs Immature Grans 0.29 10^3/uL (0.0-0.06); Absolute Basophil Count 0.04 10^3/uL (0.0-0.2); Absolute Eosinophil Count 0.02 10^3/uL (0.0-0.7); Absolute Lymphocyte Count 0.42 10^3/uL (1.2-3.4); Absolute Monocyte Count 1.07 10^3/uL (0.1-0.8); Basophils % 0.2; Eosinophils % 0.1; HCT 41.5 % (40.0-50.0); Immature Grans % 1.4; Lactate 3.2 mmol/L (0.6-1.4); Lymphocytes % 2.1; MCH 34.8 pg (27.0-33.0); MCHC 33.7 % (32.0-36.0); MCV 103.2 fL (80-95); MPV 9.5 fL (8.0-11.0); Monocytes % 5.3; Neutrophils % 90.9; Nucleated RBC 0 %; Platelet Count 161 10^3/uL (130-400); RBC 4.02 10^6/uL (4.36-5.78); RDW 12.3 % (11.8-14.1); RDW-SD 46.8 fL; WBC 20.13 10^3/uL (4.4-10.8)
[2021-08-27] MEDS: Normal Saline 500 ML IV ×3 (13:06→15:30)
[2021-08-27 13:15] LABS: ALT 10 U/L (16-63); AST 18 U/L (15-37); Albumin 3.1 g/dL (3.4-5.0); Alkaline Phosphatase 55 U/L (46-116); BUN 31 mg/dL (7-18); Bilirubin, Total 2.1 mg/dL (0.2-1.0); CREATININE 2.5 mg/dL (0.70-1.30); Calcium 8.4 mg/dL (8.5-10.1); Chloride 100 mmol/L (98-107); Estimated GFR 24.91 (mL/min/1.73m2); Glucose 114 mg/dL (74-106); Lipase 29 U/L (73-393); Potassium 4.3 mmol/L (3.5-5.1); Sodium 134 mmol/L (136-145); Total Protein 6.4 g/dL (6.4-8.2)
[2021-08-27 13:29] LABS: COVID-19 PCR Negative (Negative); Influenza A PCR Negative (Negative); Influenza B PCR Negative (Negative); RSV PCR Negative (Negative)
--- NOTE | 2021-08-27 13:30 | DI.CT_ITS ---
Exam(s) CT ABDOMEN PELVIS WO EXAM: CT ABDOMEN PELVIS WO CLINICAL HISTORY: RUQ abd pain. TECHNIQUE: Imaging Protocol: Axial computed tomography images with coronal and sagittal reformatted images were created and reviewed. Oral: / no COMPARISON: CT CT ABDOMEN PELVIS WO from 07/25/2019 CR XR PORTABLE CHEST AP from 08/27/2021 CR XR PORTABLE CHEST AP from 08/27/2021 FINDINGS: ABDOMEN: Lung Bases: Fibrotic changes and emphysematous changes at the lung bases. Ectatic aorta.. Stable sm all pericardial cyst adjacent to right atrium. Liver: Normal density. No measurable mass. Gallbladder and biliary tract: No radiodense calculus or dilation. Pancreas: Normal density, no abnormal calcifications or inflammatory process. Spleen: Normal. Kidneys: Normal size, contour and axis. 8 millimeter stone lower pole right kidney. No obstructive uropathy. No masses seen. Adrenal glands: No masses seen. Lymph nodes: Within normal limits. Abdominal Aorta: Abdominal portion non-dilated. Tiny fatty containing umbilical hernia. PELVIS: Bladder: Symmetric distention, no gross wall thickening. Bowel: Diverticulosis without evidence of diverticulitis. No obstruction or bowel wall thickening. Peritoneal cavity: No ascites, collection or mesenteric inflammatory response. Reproductive organs: Within normal limits. Bones: Old right rib fractures.. Right hip prosthesis. Degenerative changes greatest of the facet j oints at the lower lumbar levels. IMPRESSION: Nonobstructing stone lower pole right kidney. Liver and gallbladder are unremarkable without contras t. RADIATION DOSE DELIVERED: 1,571.99mGy.cm Total DLP DATA REPOSITORY: All CT scans at this facility are submitted to the National Radiology Data Registry (NRDR) Dose Index Registry (DIR) with the [employer] (A[employer]). RADIATION OPTIMIZATION: All CT scans at this facility use at least one of these dose optimization te chniques: automated exposure control; mA and/or kV adjustment per patient size (includes targeted exa ms where dose is matched to clinical indication); or iterative reconstruction.
[2021-08-27 13:47] LABS: Troponin I < 50 ng/L (<or=60)
[2021-08-27 14:03] LABS: Bilirubin Negative (Negative); Blood Small (Negative); Clarity Cloudy (Clear); Glucose Negative (Negative); Ketones Negative (Negative); Leukocyte Esterase Trace (Negative); Nitrite Positive (Negative); Specific Gravity >= 1.030 (1.005-1.025); Urobilinogen 0.2 EU/dL (Up TO 0.2); pH 5.5 (5-8)
[2021-08-27 14:22] LABS: Bacteria Many HPF (Negative); Casts 3-5 Hyaline LPF (Negative); Crystals Negative HPF (Negative); Epithelial Cells Few HPF (Negative); Mucus Heavy (Negative)
[2021-08-27 14:23] LABS: C & S Indicated? Yes
[2021-08-27] MEDS: cefTRIAXone 2 GM/50 ML BAG IVPB (15:30)
--- NOTE | 2021-08-27 16:05 | HPE_ITS ---
Date of service: 08/27/21 Time of Service: 16:05 Assessment and Plan Assessment and plan (1) Sepsis: Status: Acute Assessment and plan: patient presented w/ symptoms and signs of sepsis including fever, rigors, leukocytosis, elevated procalcitonin and ANDRZEJ superimposed on CKD along w/ borderline tachycardia and mild hypotension. He has not required vasopressors and his BP has responded to iv fluid boluses. Patient was started empirically on Rocephin 2 gm while in the ER and blood and urine cultures are pending. Patient will be continued on Rocephin 2 g IV daily with adjustment in antibiotics based upon culture and sensitivity results. Patient is appropriate for the medical/surgical floor as he is now hemodynamically stable. Case discussed with Dr. Allegra Camarillo from the emergency department. Qualifiers: Sepsis type: sepsis due to unspecified organism Sepsis acute organ dysfunction status: with acute organ dysfunction Severe sepsis acute organ dysfunction type: acute renal failure Acute renal failure type: with acute tubular necrosis Severe sepsis shock status: without septic shock Qualified Code(s): A41.9 - Sepsis, unspecified organism; R65.20 - Severe sepsis without septic shock; N17.0 - Acute kidney failure with tubular necrosis (2) UTI (urinary tract infection): Status: Acute Assessment and plan: continue Rocephin 2 gm daily w/ modifications based on his blood and urine culture results. Qualifiers: Urinary tract infection type: acute pyelonephritis Qualified Code(s): N10 - Acute pyelonephritis (3) ANDRZEJ (acute kidney injury): Status: Acute Assessment and plan: ANDRZEJ superimposed on CKD. His baseline creatinine appears to be between 1.4 and 1.7 but is now up to 2.5. (4) Chronic kidney disease: Status: Chronic Assessment and plan: In light of worsening renal function, I will hold his losartan for now (also he was mildly hypotensive in the ER). Qualifiers: Chronic kidney disease stage: stage 3 (moderate) Chronic kidney disease stage 3 subtype: unspecified whether 3a or 3b Qualified Code(s): N18.30 - Chronic kidney disease, stage 3 unspecified (5) Kidney stone: Status: Chronic Assessment and plan: patient has a nonobstructing 8 mm stone in the right lower renal pole. His flank pain may represent passage of a stone but he has no evidence for obstructive uropathy. (6) BPH (benign prostatic hyperplasia): Status: Chronic Assessment and plan: continue finasteride. Unclear as to why he is not on flomax. Will ask Dr. Valdez to see him tomorrow in follow up (patient sees him as outpatient apparently was scheduled to see him next week). Qualifiers: Lower urinary tract symptom presence: symptoms present Lower urinary tract symptom detail: incomplete bladder emptying Qualified Code(s): N40.1 - Benign prostatic hyperplasia with lower urinary tract symptoms; R39.14 - Feeling of incomplete bladder emptying History of Present Illness History of Present Illness Chief Complaint: fever, chills, right flank pain Narrative: 81-year-old white male with a history of Parkinson's disease, polymy algia rheumatica, hypothyroidism, essential hypertension who presented emergency department with acute onset of right flank pain that began yesterday. This was associated with some diarrhea and nausea. He had a couple loose watery bowel movements yesterday but no bloody stools. No emesis. Today when he continued to have right flank pain and now was having a fever 102.5 and chills he presented to the emergency department. Initially he had indicated to the ER that he had right upper quadrant abdominal tenderness. This led to a work-up including a CT scan of his abdomen pelvis. However his admission labs demonstrated acute kidney injury with a BUN of 31 creatinine 2.5. Patient has some baseline renal insufficiency with a creatinine varies between 1.4 and 1.7. His CBC demonstrated a white cell count of 20,000. Serial troponin I levels were normal at less than 50 nanograms per liter. CRP and procalcitonin levels were not initially ordered but have since been ordered and found to be elevated with CRP greater than 25 and a procalcitonin level of 31. UA demonstrated + nitrites, Greater than 300 mg/dL protein, 3-5 RBCs per high-power field, 10-20 WBCs per high-powered field, many bacteria along with 3-5 hyaline casts and heavy mucus. Blood and urine cultures were obtained and the patient was started on Rocephin [address] scan of the abdomen and pelvis was performed and showed nonobstructing stone of the lower pole of the right kidney. Liver and gallbladder were unremarkable. Chest x-ray showed mild fibrotic changes with no acute infiltrates or effusion. Stat renal ultrasound was performed and showed no evidence of hydronephrosis. Ultrasound confirmed a nonobstructing stone seen at the lower pole the right kidney. Patient is now admitted to the medical/surgical floor for continued IV hydration and antibiotic treatment of pyelonephritis. While in the emergency department he received a total 1.5 L and normal saline boluses given and 500 mL increments. PFSH All Active Problems (Updated 08/27/21 @ 19:15 by Edwin Reinoso) Chronic kidney disease (Chronic) Sepsis (Acute) UTI (urinary tract infection) (Acute) ANDRZEJ (acute kidney injury) (Acute) Sleep apnea (Acute) Kidney stone (Chronic) BPH (benign prostatic hyperplasia) (Chronic) PAD (peripheral artery disease) (Chronic) Medical History (Updated 08/27/21 @ 19:15 by Edwin Reinoso) Chronic ethmoidal sinusitis Chronic frontal sinusitis Deviated nasal septum Dilated aortic root Fractured rib mid Sept 2018 Hypothyroidism Lyme disease Nasal septal spur Nasal turbinate hypertrophy Parkinsons pt. states he does not have Polymyalgia rheumatica pt. reports he has this not parkinsons Pulmonary fat embolism Surgical History Hx of colonoscopy Hx of inguinal hernia surgery Hx of total hip arthroplasty right Social History Smoking/Tobacco Use Status: Former Tobacco Use Quit Date: 09/08/81 Smoking risk assessment performed?: Yes Alcohol Intake: current Alcohol Intake frequency: 0-2 drinks per day Alcohol type: beer and hard liquor Drug use: Never Substance use type: does not use Details: daily beer /liquor yesterday 1 beer It was a light day Do you feel safe at home: Yes Do you feel safe in your relationship?: Yes Additional Social history: Abby Flores neightbor/friend [phone] Meds Allergies and Home Medications Allergies Allergy/AdvReac Type Severity Reaction Status Date / Time Sulfa (Sulfonamide AdvReac Intermediate Its been Verified 08/27/21 11:55 Antibiotics) along time cat dander AdvReac Mild Verified 08/27/21 11:55 penicillin V AdvReac Mild nausea Verified 08/27/21 11:55 salicylates AdvReac Mild up set Verified 08/27/21 11:55 stomach Home Medications Medication Instructions Recorded Confirmed Type levothyroxine 75 mcg PO DAILY 12/03/16 08/27/21 History ropinirole 2 mg PO HS 12/03/16 08/27/21 History ibuprofen 400 mg PO PRN PRN 05/02/19 08/27/21 History acetaminophen [Tylenol Extra 1,000 mg PO Q4H PRN 06/30/19 08/27/21 History Strength] albuterol sulfate 90 mcg/actuation 2 puff IH Q6H PRN 07/30/19 08/27/21 History aerosol inhaler furosemide 20 mg tablet 20 mg PO DAILY PRN tab 07/30/19 09/04/20 History ipratropium 0.5 mg-albuterol 3 mg 3 ml IH Q6H PRN 07/30/19 08/27/21 History (2.5 mg base)/3 mL nebulization soln losartan 50 mg tablet 75 mg PO DAILY 07/30/19 08/27/21 History nitroglycerin 0.4 mg sublingual 0.4 mg SL Q5-15M PRN 07/30/19 08/27/21 History tablet finasteride 5 mg PO DAILY 08/27/21 08/27/21 History montelukast 10 mg PO DAILY 08/27/21 08/27/21 History prednisone 5 mg PO DAILY 08/27/21 08/27/21 History sertraline 25 mg PO DAILY 08/27/21 08/27/21 History tramadol 50 mg PO BID PRN PRN 08/27/21 08/27/21 History Exam Narrative Exam Narrative: Elderly white male lying on a gurney in the ultrasound department of radiology. He just completed his renal ultrasound. He does not appear to be in any distress. He appears to be alert and oriented to person place time circumstance. HEENT was not examined as he was wearing a mask. Neck is supple nontender normal carotid pulses no bruits no JVD Lungs with diffuse fine dry rales no rhonchi or wheezing Heart is regular rate and rhythm no appreciable murmur rub or gallop Abdomen soft nondistended normal bowel sounds no organomegaly no rebound tenderness or guarding. Right flank is mildly tender to palpation. Lower extremities without pitting edema. Feet are warm and dry no cyanosis. Neurologic exam grossly intact no focal cranial nerve deficits no focal motor or sensory deficits. Results Labs Result diagrams: 08/27/21 12:45 08/27/21 12:45 Labs: Laboratory Results - last 24 hr 08/27/21 08/27/21 08/27/21 12:20 12:45 12:45 WBC 20.13 H RBC 4.02 L Hgb 14.0 Hct 41.5 MCV 103.2 H MCH 34.8 H MCHC 33.7 RDW 12.3 Plt Count 161 MPV 9.5 Immature Gran % 1.4 Neutrophils % 90.9 Lymphocytes % 2.1 Monocytes % 5.3 Eosinophils % 0.1 Basophils % 0.2 Nucleated RBC % 0 Absolute Neutrophils 18.30 H Absolute Lymphocytes 0.42 L Absolute Monocytes 1.07 H Absolute Eosinophils 0.02 Absolute Basophils 0.04 VBG Lactate Sodium 134 L Potassium 4.3 Chloride 100 Carbon Dioxide 25.0 Anion Gap 9.0 BUN 31 H Creatinine 2.5 H Estimated GFR/1.73 m2 24.91 Glucose 114 H Calcium 8.4 L Total Bilirubin 2.1 H AST 18 ALT 10 L Alkaline Phosphatase 55 Troponin I Total Protein 6.4 Albumin 3.1 L Lipase 29 Urine Color Urine Clarity Urine pH Ur Specific [place] Urine Protein Urine Ketones Urine Blood Urine Nitrite Urine Bilirubin Urine Urobilinogen Ur Leukocyte Esterase Urine RBC Urine WBC Ur Epithelial Cells Urine Crystals Urine Bacteria Urine Casts Urine Mucus Ur Culture Indicated? Urine Glucose COVID-19 Source Nasal/Nares SARS-CoV-2 (PCR) Negative Influenza Type A (PCR) Negative Influenza Type B (PCR) Negative RSV (PCR) Negative 08/27/21 08/27/21 08/27/21 12:45 13:25 13:34 WBC RBC Hgb Hct MCV MCH MCHC RDW Plt Count MPV Immature Gran % Neutrophils % Lymphocytes % Monocytes % Eosinophils % Basophils % Nucleated RBC % Absolute Neutrophils Absolute Lymphocytes Absolute Monocytes Absolute Eosinophils Absolute Basophils VBG Lactate 3.2 H* Sodium Potassium Chloride Carbon Dioxide Anion Gap BUN Creatinine Estimated GFR/1.73 m2 Glucose Calcium Total Bilirubin AST ALT Alkaline Phosphatase Troponin I < 50 Total Protein Albumin Lipase Urine Color Yellow Urine Clarity Cloudy Urine pH 5.5 Ur Specific [place] >= 1.030 H Urine Protein >=300 H Urine Ketones Negative Urine Blood Small H Urine Nitrite Positive H Urine Bilirubin Negative Urine Urobilinogen 0.2 Ur Leukocyte Esterase Trace H Urine RBC 3-5 H Urine WBC 10-20 H Ur Epithelial Cells Few Urine Crystals Negative Urine Bacteria Many Urine Casts 3-5 Hyaline Urine Mucus Heavy Ur Culture Indicated? Yes Urine Glucose Negative COVID-19 Source SARS-CoV-2 (PCR) Influenza Type A (PCR) Influenza Type B (PCR) RSV (PCR) Last Vital Signs Temp 37.4 C 08/27/21 11:48 Pulse 74 08/27/21 15:46 Resp 23 08/27/21 15:46 BP 127/66 08/27/21 15:46 Pulse Ox 97 08/27/21 15:46 PAWSS Have you Been Recently Intoxicated or Drunk Within the Last 30 days?: No Have you Ever Experienced Previous Episodes of Alcohol Withdrawal?: No Have you ever Experienced Withdrawal Seizures?: No Have you ever Experienced Delirium Tremens(DT)s?: No Have you ever undergone Alcohol Rehabilitation Treatment (i.e, inpt ot outpatient treatment programs)?: No Have you ever Experienced Blackouts?: No Have you ever Combined Alcohol with other Downers within the last 90 days?: No Have you ever Combined Alcohol with any other Substance of Abuse during the last 90 days?: No Positive Blood Alcohol level on Presentation? [PCS.BAL]: No Evidence of Increased Autonomic Activity (i.e. HR>120, tremor, sweating, agitation, nausea)?: No Result: 0
[2021-08-27 17:07] LABS: Lactate 2.6 mmol/L (0.6-1.4)
--- NOTE | 2021-08-27 17:24 | DI.VRAD_ITS ---
PROCEDURE INFORMATION: Exam: US Retroperitoneal; Complete; Kidneys and Bladder Exam date and time: 08/27/2021 3:53 PM Age: 81 years old Clinical indication: Pain; Other: Pyelonephritis TECHNIQUE: Imaging protocol: Real-time ultrasound of the retroperitoneum with image documentation. Complete exam focused on the kidneys and bladder. COMPARISON: CT ABDOMEN PELVIS WO 08/27/2021 2:38 PM FINDINGS: Right kidney: Normal. No stones. No hydronephrosis. Left kidney: Normal. No stones. No hydronephrosis. Urinary bladder: Unremarkable. IMPRESSION: Unremarkable kidneys and bladder. Dictated and Authenticated by: Maulik Albert MD. Ordering:[facility] Kemar Pineda MD
[2021-08-27 17:38] LABS: Troponin I < 50 ng/L (<or=60)
[2021-08-27 17:41] LABS: C-Reactive Protein > 25.00 mg/dL (0.0-0.3)
[2021-08-27] MEDS: Enoxaparin 30 MG/0.3 ML SYR SC (18:03)
[2021-08-27] MEDS: Acetaminophen 325 MG TAB PO (18:03)
[2021-08-27 18:07] LABS: Procalcitonin 31.6 ng/mL
[2021-08-27] MEDS: Lactated Ringers 1,000 ML 125 ML IV (19:47)
[2021-08-27] MEDS: Hydrocortisone SOD SUC. 100 MG VIAL IVP (19:48)
[2021-08-27] MEDS: rOPINIRole 1 MG TAB 2 MG PO (21:44)
[2021-08-28 03:13] VITALS: BP 130/71; PULSE 63; RESP 16; TEMP 36.5; O2SAT 96
[2021-08-28] MEDS: Lactated Ringers 1,000 ML 125 ML IV (03:33)
[2021-08-28] MEDS: Hydrocortisone SOD SUC. 100 MG VIAL 50 MG IVP (04:20)
[2021-08-28] MEDS: Levothyroxine 75 MCG TAB PO (05:59)
--- NOTE | 2021-08-28 06:55 | UCONE_ITS ---
Date of service: 08/28/21 Time of Service: 12:09 Assessment and Plan Assessment and plan (1) Kidney stone: Status: Chronic (2) Sepsis: Status: Acute Assessment and plan: Given his previous history, I would not be surprised if his urine and blood cultures again grow E. coli. I wonder if his initial episode of flank pain was related to his renal stone moving from its previous position in the midpole to the lower pole. With no sign of hydronephrosis, I do not see a need for placement of a ureteral stent. I believe broad-spectrum antibiotics are the most appropriate treatment for now. His stone may have contributed to developing this infection. Another possibility would be that he is not emptying his bladder very well in the stagnant urine led to another bout of sepsis. Once he recovers, we can talk about ways to improve his bladder emptying or perhaps even treat the kidney stone surgically. Qualifiers: Sepsis type: sepsis due to unspecified organism Sepsis acute organ dysfunction status: with acute organ dysfunction Severe sepsis acute organ dysfunction type: acute renal failure Acute renal failure type: with acute tubular necrosis Severe sepsis shock status: without septic shock Qualified Code(s): A41.9 - Sepsis, unspecified organism; R65.20 - Severe sepsis without septic shock; N17.0 - Acute kidney failure with tubular necrosis History of Present Illness History of Present Illness Chief Complaint: Kidney stone Narrative: This is an 81-year-old gentleman who is followed in our office for a known right-sided kidney stone. In the past, he has received urologic care up at [facility] and at [facility]. He has required ESWL treatment in the past. We saw this gentleman for the first time after he developed left-sided renal colic in 2019. He was found to have a left ureteral stone as well as a nonobstructing right kidney stone. He passed the left ureteral stone without re quiring surgical treatment. We then began monitoring his right-sided stone with yearly KUB. He presented to the emergency room after waking with an acute onset of right flank pain. He describes nausea and vomiting. He did not recall having a fever or any dysuria. He did admit to an increase in urinary frequency. When he was evaluated in the emergency room, he was febrile and his urinalysis w as suggestive of a urinary tract infection. A noncontrast CT of the abdomen and pelvis showed no hydronephrosis. A working diagnosis of pyelonephritis was made and the patient was admitted for antibiotics. Since his admission, the right flank pain has improved. In reviewing his previous [facility] records, it appears that he had an admission for E. coli sepsis back in 2018. Review of Systems Narrative: No fevers or chills No vision change or dysphasia No diabetes or thyroid Sleep apnea. No cough or hemoptysis No chest pain or palpitations No ulcers, jaundice, hepatitis No seizures, strokes or peripheral neuropathy No bleeding disorders or anemia No gout PFSH All Active Problems (Updated 08/27/21 @ 19:15 by Edwin Reinoso) Chronic kidney disease (Chronic) Sepsis (Acute) UTI (urinary tract infection) (Acute) ANDRZEJ (acute kidney injury) (Acute) Sleep apnea (Acute) Kidney stone (Chronic) BPH (benign prostatic hyperplasia) (Chronic) PAD (peripheral artery disease) (Chronic) Medical History (Updated 08/27/21 @ 19:15 by Edwin Reinoso) Chronic ethmoidal sinusitis Chronic frontal sinusitis Deviated nasal septum Dilated aortic root Fractured rib mid Sept 2018 Hypothyroidism Lyme disease Nasal septal spur Nasal turbinate hypertrophy Parkinsons pt. states he does not have Polymyalgia rheumatica pt. reports he has this not parkinsons Pulmonary fat embolism Surgical History Hx of colonoscopy Hx of inguinal hernia surgery Hx of total hip arthroplasty right Social History Smoking/Tobacco Use Status: Former Tobacco Use Quit Date: 09/08/81 Smoking risk assessment performed?: Yes Alcohol Intake: current Alcohol Intake frequency: 0-2 drinks per day Alcohol type: beer and hard liquor Drug use: Never Substance use type: does not use Details: daily beer /liquor yesterday 1 beer It was a light day Do you feel safe at home: Yes Do you feel safe in your relationship?: Yes Additional Social history: Abby alfarotbor/friend [phone] Exam Narrative Exam Narrative: He was seen at the bedside sitting up in the chair. He does not appear toxic His vital signs are documented elsewhere His abdomen is soft with no peritoneal signs. There is no CVA tenderness. He is awake and alert I reviewed patient's CT scans and renal ultrasounds from this admission and from 2019. Back in 2019, he had a nonobstructing stone in the right mid kidney. On current films, the stone appears of similar size, but has migrated to the right lower pole. There is no hydronephrosis or perinephric abscess identified. His blood cultures are growing gram-negative rods. It looks as if he had positive blood and urine cultures for E. coli back in 2018. At that time, the E. coli was resistant to ampicillin (Intermediate to Augmentin) but sensitive to all other tested antibiotics. Results Last Vital Signs Temp 36.5 C 08/28/21 03:13 Pulse 63 08/28/21 03:13 Resp 16 08/28/21 03:13 BP 130/71 08/28/21 03:13 Pulse Ox 96 08/28/21 03:13 Labs Result diagrams: 08/28/21 06:50 08/28/21 06:50 Labs: Laboratory Results - last 24 hr 08/27/21 08/27/21 08/27/21 12:20 12:45 12:45 WBC 20.13 H RBC 4.02 L Hgb 14.0 Hct 41.5 MCV 103.2 H MCH 34.8 H MCHC 33.7 RDW 12.3 Plt Count 161 MPV 9.5 Immature Gran % 1.4 Neutrophils % 90.9 Lymphocytes % 2.1 Monocytes % 5.3 Eosinophils % 0.1 Basophils % 0.2 Nucleated RBC % 0 Absolute Neutrophils 18.30 H Absolute Lymphocytes 0.42 L Absolute Monocytes 1.07 H Absolute Eosinophils 0.02 Absolute Basophils 0.04 VBG Lactate Sodium 134 L Potassium 4.3 Chloride 100 Carbon Dioxide 25.0 Anion Gap 9.0 BUN 31 H Creatinine 2.5 H Estimated GFR/1.73 m2 24.91 Glucose 114 H Calcium 8.4 L Total Bilirubin 2.1 H AST 18 ALT 10 L Alkaline Phosphatase 55 Troponin I C-Reactive Protein Total Protein 6.4 Albumin 3.1 L Lipase 29 Procalcitonin Urine Color Urine Clarity Urine pH Ur Specific [place] Urine Protein Urine Ketones Urine Blood Urine Nitrite Urine Bilirubin Urine Urobilinogen Ur Leukocyte Esterase Urine RBC Urine WBC Ur Epithelial Cells Urine Crystals Urine Bacteria Urine Casts Urine Mucus Ur Culture Indicated? Urine Glucose COVID-19 Source Nasal/Nares SARS-CoV-2 (PCR) Negative Influenza Type A (PCR) Negative Influenza Type B (PCR) Negative RSV (PCR) Negative 08/27/21 08/27/21 08/27/21 12:45 13:25 13:34 WBC RBC Hgb Hct MCV MCH MCHC RDW Plt Count MPV Immature Gran % Neutrophils % Lymphocytes % Monocytes % Eosinophils % Basophils % Nucleated RBC % Absolute Neutrophils Absolute Lymphocytes Absolute Monocytes Absolute Eosinophils Absolute Basophils VBG Lactate 3.2 H* Sodium Potassium Chloride Carbon Dioxide Anion Gap BUN Creatinine Estimated GFR/1.73 m2 Glucose Calcium Total Bilirubin AST ALT Alkaline Phosphatase Troponin I < 50 C-Reactive Protein Total Protein Albumin Lipase Procalcitonin Urine Color Yellow Urine Clarity Cloudy Urine pH 5.5 Ur Specific [place] >= 1.030 H Urine Protein >=300 H Urine Ketones Negative Urine Blood Small H Urine Nitrite Positive H Urine Bilirubin Negative Urine Urobilinogen 0.2 Ur Leukocyte Esterase Trace H Urine RBC 3-5 H Urine WBC 10-20 H Ur Epithelial Cells Few Urine Crystals Negative Urine Bacteria Many Urine Casts 3-5 Hyaline Urine Mucus Heavy Ur Culture Indicated? Yes Urine Glucose Negative COVID-19 Source SARS-CoV-2 (PCR) Influenza Type A (PCR) Influenza Type B (PCR) RSV (PCR) 08/27/21 08/27/21 08/27/21 16:55 16:55 16:55 WBC RBC Hgb Hct MCV MCH MCHC RDW Plt Count MPV Immature Gran % Neutrophils % Lymphocytes % Monocytes % Eosinophils % Basophils % Nucleated RBC % Absolute Neutrophils Absolute Lymphocytes Absolute Monocytes Absolute Eosinophils Absolute Basophils VBG Lactate 2.6 H* Sodium Potassium Chloride Carbon Dioxide Anion Gap BUN Creatinine Estimated GFR/1.73 m2 Glucose Calcium Total Bilirubin AST ALT Alkaline Phosphatase Troponin I < 50 C-Reactive Protein > 25.00 H Total Protein Albumin Lipase Procalcitonin 31.6 Urine Color Urine Clarity Urine pH Ur Specific [place] Urine Protein Urine Ketones Urine Blood Urine Nitrite Urine Bilirubin Urine Urobilinogen Ur Leukocyte Esterase Urine RBC Urine WBC Ur Epithelial Cells Urine Crystals Urine Bacteria Urine Casts Urine Mucus Ur Culture Indicated? Urine Glucose COVID-19 Source SARS-CoV-2 (PCR) Influenza Type A (PCR) Influenza Type B (PCR) RSV (PCR)
[2021-08-28 07:16] LABS: Abs Immature Grans 0.19 10^3/uL (0.0-0.06); Absolute Basophil Count 0.01 10^3/uL (0.0-0.2); Absolute Lymphocyte Count 0.26 10^3/uL (1.2-3.4); Absolute Monocyte Count 0.37 10^3/uL (0.1-0.8); Absolute Neutrophil Count 11.63 10^3/uL (1.2-6.7); Basophils % 0.1; HCT 37.5 % (40.0-50.0); HGB 12.5 g/dL (13.5-17.5); Immature Grans % 1.5; Lymphocytes % 2.1; MCH 34.5 pg (27.0-33.0); MCHC 33.3 % (32.0-36.0); MCV 103.6 fL (80-95); MPV 9.7 fL (8.0-11.0); Neutrophils % 93.3; Nucleated RBC 0 %; Platelet Count 125 10^3/uL (130-400); RBC 3.62 10^6/uL (4.36-5.78); RDW 12.3 % (11.8-14.1); RDW-SD 46.9 fL; WBC 12.46 10^3/uL (4.4-10.8)
[2021-08-28 07:30] LABS: Anion Gap 7.7 mmol/L (3-11); BUN 33 mg/dL (7-18); CO2 26.3 mmol/L (21.0-32.0); Chloride 102 mmol/L (98-107); Estimated GFR 32.23 (mL/min/1.73m2); Glucose 138 mg/dL (74-106); Potassium 4.1 mmol/L (3.5-5.1); Sodium 136 mmol/L (136-145)
[2021-08-28 07:39] LABS: C-Reactive Protein > 25.00 mg/dL (0.0-0.3)
[2021-08-28] MEDS: predniSONE 5 MG TAB PO (08:21)
[2021-08-28] MEDS: Finasteride 5 MG TAB PO (08:22)
[2021-08-28] MEDS: Sertraline 25 MG TAB PO (08:22)
[2021-08-28] MEDS: Tamsulosin 0.4 MG CAPCR PO (08:22)
[2021-08-28 08:30] VITALS: BP 157/77; PULSE 65; RESP 18; TEMP 36.7; O2SAT 97
[2021-08-28] MEDS: predniSONE 20 MG TAB 40 MG PO (11:32)
[2021-08-28] MEDS: Folic Acid 1 MG TAB PO (11:32)
[2021-08-28] MEDS: Thiamine 100 MG TAB PO (11:32)
[2021-08-28] MEDS: Lactated Ringers 1,000 ML 85 ML IV (11:47)
[2021-08-28] MEDS: cefTRIAXone 2 GM/50 ML BAG IVPB (16:04)
--- NOTE | 2021-08-28 16:36 | W.PM.PROGNOT ---
Date of Service Date of service: 08/28/21 Time of Service: 16:36 Assessment and Plan Assessment and plan (1) Sepsis: Status: Acute Assessment and plan: clinically improving (no fever, decreasing WBC and mental status improving). continue high dose ceftriaxone 2 gm daily. I would treat for 10 days. However, can probably change to oral antibiotics after 5 days once his blood cultures clear. I will repeat his blood cultures tomorrow. will put on probiotics given his diarrhea. Qualifiers: Acute renal failure type: with acute tubular necrosis Sepsis acute organ dysfunction status: with acute organ dysfunction Sepsis type: sepsis due to unspecified organism Severe sepsis acute organ dysfunction type: acute renal failure Severe sepsis shock status: without septic shock Qualified Code(s): A41.9 - Sepsis, unspecified organism; R65.20 - Severe sepsis without septic shock; N17.0 - Acute kidney failure with tubular necrosis (2) E coli bacteremia: Status: Acute Assessment and plan: As above (3) ANDRZEJ (acute kidney injury): Status: Acute Assessment and plan: Improving. Creatinine is down to 2.0. Still not taking in good oral intake. We will continue IV fluid hydration but reduce the rate. (4) BPH (benign prostatic hyperplasia): Status: Chronic Assessment and plan: Dr. Valdez's input into the patient's urologic care is greatly appreciated. I agree with his impression that the patient's renal stone may have moved and that initially he may have had some obstruction causing the right flank pain. Nevertheless at the present time there is no hydronephrosis and no need for acute surgical intervention. I have increased his Flomax to 0.8 mg daily and he will continue on his Proscar 5 mg daily. Further treatment will be determined by Dr. Valdez once the patient recovers from his E. coli sepsis. Qualifiers: Lower urinary tract symptom detail: incomplete bladder emptying Lower urinary tract symptom presence: symptoms present Qualified Code(s): N40.1 - Benign prostatic hyperplasia with lower urinary tract symptoms; R39.14 - Feeling of incomplete bladder emptying (5) Chronic kidney disease: Status: Chronic Assessment and plan: Continue to monitor urine output and daily BMP Qualifiers: Chronic kidney disease stage: stage 3 (moderate) Chronic kidney disease stage 3 subtype: unspecified whether 3a or 3b Qualified Code(s): N18.30 - Chronic kidney disease, stage 3 unspecified (6) Diarrhea: Status: Acute Assessment and plan: will check stool lactoferrin, C. diff and put him on metamucil to try to thicken his stools; dc all stool softeners and laxatives. Qualifiers: Diarrhea type: unspecified type Qualified Code(s): R19.7 - Diarrhea, unspecified Subjective Subjective Patient reports: diarrhea and nausea Interval history since last seen: But no flank pain or fever or rigors. I went over the results of his blood and urine cultures and explained to him that he has an E. coli bacteremia but seems to be responding to the high-dose Rocephin. I told him that we will work-up his diarrhea and put him on Metamucil to help thicken his stools. If stools are negative for C. difficile PCR I will give him Imodium. Exam Narrative Exam Narrative: Alert and oriented person place time circumstance Lungs with fine dry rales Heart is regular rate and rhythm Abdomen is distended, soft, nontender No flank tenderness. Objective Last Vital Signs Temp 36.7 C 08/28/21 08:30 Pulse 65 08/28/21 08:30 Resp 18 08/28/21 08:30 BP 157/77 H 08/28/21 08:30 Pulse Ox 97 08/28/21 08:30 Laboratory Results - last 24 hr 08/27/21 08/27/21 08/27/21 16:55 16:55 16:55 WBC RBC Hgb Hct MCV MCH MCHC RDW Plt Count MPV Immature Gran % Neutrophils % Lymphocytes % Monocytes % Eosinophils % Basophils % Nucleated RBC % Absolute Neutrophils Absolute Lymphocytes Absolute Monocytes Absolute Eosinophils Absolute Basophils VBG Lactate 2.6 H* Sodium Potassium Chloride Carbon Dioxide Anion Gap BUN Creatinine Estimated GFR/1.73 m2 Glucose Calcium Troponin I < 50 C-Reactive Protein > 25.00 H Procalcitonin 31.6 08/28/21 08/28/21 06:50 06:50 WBC 12.46 H D RBC 3.62 L Hgb 12.5 L Hct 37.5 L MCV 103.6 H MCH 34.5 H MCHC 33.3 RDW 12.3 Plt Count 125 L MPV 9.7 Immature Gran % 1.5 Neutrophils % 93.3 Lymphocytes % 2.1 Monocytes % 3.0 Eosinophils % 0.0 Basophils % 0.1 Nucleated RBC % 0 Absolute Neutrophils 11.63 H Absolute Lymphocytes 0.26 L Absolute Monocytes 0.37 Absolute Eosinophils 0.00 Absolute Basophils 0.01 VBG Lactate Sodium 136 Potassium 4.1 Chloride 102 Carbon Dioxide 26.3 Anion Gap 7.7 BUN 33 H Creatinine 2.0 H Estimated GFR/1.73 m2 32.23 Glucose 138 H Calcium 8.0 L Troponin I C-Reactive Protein > 25.00 H Procalcitonin PAWSS Have you Been Recently Intoxicated or Drunk Within the Last 30 days?: No Have you Ever Experienced Previous Episodes of Alcohol Withdrawal?: No Have you ever Experienced Withdrawal Seizures?: No Have you ever Experienced Delirium Tremens(DT)s?: No Have you ever undergone Alcohol Rehabilitation Treatment (i.e, inpt ot outpatient treatment programs)?: No Have you ever Experienced Blackouts?: No Have you ever Combined Alcohol with other Downers within the last 90 days?: No Have you ever Combined Alcohol with any other Substance of Abuse during the last 90 days?: No Positive Blood Alcohol level on Presentation? [PCS.BAL]: No Evidence of Increased Autonomic Activity (i.e. HR>120, tremor, sweating, agitation, nausea)?: No Result: 0
[2021-08-28] MEDS: Enoxaparin 30 MG/0.3 ML SYR SC (18:38)
--- NOTE | 2021-08-28 18:43 | PDOC.CMIN ---
- If Service Date Differs Date of service: 08/28/21 Time of Service: 18:43 Care Management Initial Assess REASON FOR HOSPITALIZATION:: Pyelonephritis PAST MEDICAL HISTORY/PAST SURGICAL HISTORY:: All Active Problems. Chronic kidney disease (Chronic). Sepsis (Acute). UTI (urinary tract infection) (Acute). ANDRZEJ (acute kidney injury) (Acute). Sleep apnea (Acute). Kidney stone (Chronic). BPH (benign prostatic hyperplasia) (Chronic). PAD (peripheral artery disease) (Chronic). Medical History. Chronic ethmoidal sinusitis. Chronic frontal sinusitis. Deviated nasal septum. Dilated aortic root. Fractured rib. mid May 2019. Hypothyroidism. Lyme disease. Nasal septal spur. Nasal turbinate hypertrophy. Parkinsons. pt. states he does not have. Polymyalgia rheumatica. pt. reports he has this not parkinsons. Pulmonary fat embolism. Surgical History. Hx of colonoscopy. Hx of inguinal hernia surgery. Hx of total hip arthroplasty. right PREVIOUS FUNCTIONAL STATUS/SOCIAL/FAMILY SUPPORTS:: Wilfrido resides in [place] with his cat and dog. He reports having owned the home for more than forty years but only moved up to the home from [facility] after his divorce a few years ago. 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 He reports being independent with all ADLs at baseline and keeps busy maintaining his home. CURRENT FUNCTIONAL STATUS:: Jarrod was sitting up in his chair when CM met with him. He reported that he was feeling better today. He stated that his dog is missing him, but his sister is caring for him while he is away. He reported that he is independent, and does not anticipate needing any services upon discharge, unless recommended by MD. CM will continue to follow. ADVANCE DIRECTIVES:: None on file. Has patient been provided with info about the portal/API?: Yes Did the patient sign up for the portal?: No CODE STATUS:: Full Code INSURANCE COVERAGE / FINANCIAL ISSUES:: [facility]/ [employer] CURRENT HOME/COMMUNITY SERVICES/EQUIPMENT:: No current services or equipment. PRIMARY CARE PHYSICIAN:: Ana Wilkes POTENTIAL DISCHARGE NEEDS:: Evaluations for further needs, follow up appointments. PATIENT/FAMILY EDUCATION NEEDS:: Review discharge instructions and limitations, discussion of self care needs including ask me three. ANTICIPATED BARRIERS TO DISCHARGE:: None identified. TRANSPORTATION:: Via private vehicle by family. PLAN:: Anticipate Al will return home when medically cleared. His sister will likely drive him home via private vehicle. He will follow up with his PCP and discharge plan of care. CM will continue to follow.
[2021-08-28 19:25] VITALS: BP 137/79; PULSE 72; RESP 18; TEMP 36.1; O2SAT 95
[2021-08-28] MEDS: Psyllium PKT 1 EACH PO (20:18)
[2021-08-28] MEDS: Lactobacillus Acidophilus CAP 1 CAP PO (20:18)
[2021-08-28] MEDS: rOPINIRole 1 MG TAB 2 MG PO (22:21)
[2021-08-28] MEDS: Lactated Ringers 1,000 ML 65 ML IV (22:26)
[2021-08-28 23:20] VITALS: BP 150/79; PULSE 60; RESP 18; TEMP 36.4; O2SAT 96
[2021-08-28 23:25] VITALS: BP 133/76
[2021-08-29 03:20] VITALS: BP 163/81; PULSE 71; RESP 18; TEMP 36.6; O2SAT 97
[2021-08-29] MEDS: Levothyroxine 75 MCG TAB PO (05:24)
[2021-08-29 07:28] LABS: Abs Immature Grans 0.06 10^3/uL (0.0-0.06); Absolute Lymphocyte Count 0.43 10^3/uL (1.2-3.4); Absolute Monocyte Count 0.47 10^3/uL (0.1-0.8); Absolute Neutrophil Count 9.28 10^3/uL (1.2-6.7); HCT 34.8 % (40.0-50.0); HGB 11.6 g/dL (13.5-17.5); Immature Grans % 0.6; Lymphocytes % 4.2; MCH 34.4 pg (27.0-33.0); MCHC 33.3 % (32.0-36.0); MCV 103.3 fL (80-95); MPV 9.9 fL (8.0-11.0); Monocytes % 4.6; Neutrophils % 90.6; Nucleated RBC 0 %; Platelet Count 116 10^3/uL (130-400); RBC 3.37 10^6/uL (4.36-5.78); RDW 12.1 % (11.8-14.1); RDW-SD 46.3 fL; WBC 10.24 10^3/uL (4.4-10.8)
[2021-08-29 07:45] LABS: Anion Gap 6.2 mmol/L (3-11); BUN 34 mg/dL (7-18); CO2 26.8 mmol/L (21.0-32.0); CREATININE 1.5 mg/dL (0.70-1.30); Calcium 8.2 mg/dL (8.5-10.1); Chloride 104 mmol/L (98-107); Estimated GFR 44.92 (mL/min/1.73m2); Glucose 115 mg/dL (74-106); Potassium 3.6 mmol/L (3.5-5.1); Sodium 137 mmol/L (136-145)
[2021-08-29 07:53] VITALS: BP 185/73; PULSE 61; RESP 18; TEMP 35.8; O2SAT 98
[2021-08-29] MEDS: Lactobacillus Acidophilus CAP 1 CAP PO ×3 (09:24→21:01)
[2021-08-29] MEDS: Finasteride 5 MG TAB PO (09:24)
[2021-08-29] MEDS: Folic Acid 1 MG TAB PO (09:24)
[2021-08-29] MEDS: predniSONE 5 MG TAB PO (09:25)
[2021-08-29] MEDS: Sertraline 25 MG TAB PO (09:25)
[2021-08-29] MEDS: Psyllium PKT 1 EACH PO ×2 (09:25→21:01)
[2021-08-29] MEDS: Multivitamin TAB 1 TAB PO (09:25)
[2021-08-29] MEDS: predniSONE 20 MG TAB 40 MG PO (09:25)
[2021-08-29] MEDS: Tamsulosin 0.4 MG CAPCR 0.8 MG PO (09:25)
[2021-08-29] MEDS: Thiamine 100 MG TAB PO (09:26)
--- NOTE | 2021-08-29 11:15 | CMPROGNOTE_ITS ---
- If Service Date Differs Date of service: 08/29/21 Time of Service: 11:15 Care Management Progress Note S/O: Al was sitting up in his chair when CM met with him. He reported that he is still feeling nauseous, and hasn't been able to have a bowel movement. Per report, he is being treated with Rocephin for E coli bacteremia. He has been seen by Urology, who will follow him out patient. CM reviewed his discharged plan, and Al does not feel that he will need services at home at this time, as he is independent when he is feeling well. Per report, he will likely finish a five day course of IV antibiotics before transitioning to oral antibiotics, at which point he will likely be medically cleared for discharge. CM will continue to follow. A: Wilfrido is an 81 year old male admitted to [facility] on 08/27/21 with pyelonephritis. P: Anticipate Al will return home when medically cleared. His sister will likely drive him home via private vehicle. He will follow up with his PCP and discharge plan of care. CM will continue to follow.
[2021-08-29 11:25] VITALS: BP 163/79; PULSE 74; RESP 18; TEMP 35.8; O2SAT 97
--- NOTE | 2021-08-29 13:15 | DI.RAD_ITS ---
Exam(s) XR ABDOMEN FLAT UPRIGHT EXAM: 2D digital imaging was performed. CLINICAL HISTORY: abdominal distension and pain. COMPARISON: CT CT ABDOMEN PELVIS WO from 08/27/[address] ABDOMEN PELVIS WO from 08/27/2021 TECHNIQUE: Supine and uprightSupine and Lateral views of the abdomen was performed. FINDINGS: LUNG BASES: Clear. BOWEL GAS PATTERN: Nondistended. FREE AIR: None. CALCIFICATIONS: There is a calcifications seen overlying the lower pole of the right kidney consisten t with the patient's known renal stone. OSSEOUS STRUCTURES: Portion of the patient's right total hip replacement are noted. Degenerative erica nges are seen in the spine. OTHER FINDINGS: None. IMPRESSION: No evidence of an acute abdomen. DATA REPOSITORY: RADIATION DOSE DELIVERED:
--- NOTE | 2021-08-29 13:26 | PGE_ITS ---
Date of Service Date of service: 08/29/21 Time of Service: 13:26 Assessment and Plan Assessment and plan (1) E coli bacteremia: Status: Acute Assessment and plan: Patient initially presented in septic picture but hemodynamically has been stable and has not required vasopressors. He is responded well to parenteral Rocephin. He has pansensitive E. coli in his blood and urine. He remains on Rocephin 2 g IV daily. Repeat blood cultures are pending from today. I put him on a probiotic (2) ANDRZEJ (acute kidney injury): Status: Acute Assessment and plan: Patient is eating and drinking well and therefore we will discontinue his IV fluids at this point. Continue to monitor daily BMP. Monitor urine output. Renal ultrasound showed no obstructive uropathy although he has nonobstructive nephrolithiasis in the right kidney in the lower pole. (3) BPH (benign prostatic hyperplasia): Status: Chronic Assessment and plan: Continue Flomax and Proscar Qualifiers: Lower urinary tract symptom presence: symptoms present Lower urinary tract symptom detail: incomplete bladder emptying Qualified Code(s): N40.1 - Benign prostatic hyperplasia with lower urinary tract symptoms; R39.14 - Feeling of incomplete bladder emptying (4) Chronic kidney disease: Status: Chronic Assessment and plan: Continue to monitor urine output and daily BMP Qualifiers: Chronic kidney disease stage: stage 3 (moderate) Chronic kidney disease stage 3 subtype: unspecified whether 3a or 3b Qualified Code(s): N18.30 - Chronic kidney disease, stage 3 unspecified Subjective Subjective Interval history since last seen: Patient is no longer having any flank pain but complained of some abdominal distention. Diarrhea has resolved. He is actually having trouble having a bowel movement he had a small soft formed BM this morning but very little. He has no nausea or vomiting and his appetite has imp roved. We checked a bladder scan and there is less than 100 mL in his bladder. So does not appear that he is retaining. I ordered a stat KUB and upright x-ray of his abdomen. This came back negative for any obstruction. I will order stool softeners and as needed stool laxatives.Initial blood cultures from 08/27/2021 showed E. coli in his blood as well as his urine. Appears to be pansensitive. He is currently on high-dose ceftriaxone 2 g daily to which she seems to be responding well. I ordered repeat blood cultures for today. If his blood cultures show no growth on the repeat culture that I think after 5 days of parenteral antibiotics he can be switched to oral antibiotics and discharged home. Exam Narrative Exam Narrative: Elderly white male sitting up in his chair watching TV just having finished his lunch. Alert and oriented to person place time circumstance. Lungs with diffuse fine dry rales no rhonchi Heart is regular rate and rhythm Abdomen is slightly distended but soft with normal active bowel sounds without guarding or rebound tenderness Extremities without edema Flank without tenderness. Objective Last Vital Signs Temp 35.8 C L 08/29/21 11:25 Pulse 74 08/29/21 11:25 Resp 18 08/29/21 11:25 BP 163/79 H 08/29/21 11:25 Pulse Ox 97 08/29/21 11:25 Laboratory Results - last 24 hr 08/29/21 08/29/21 08/29/21 04:51 07:08 07:08 WBC 10.24 RBC 3.37 L Hgb 11.6 L Hct 34.8 L MCV 103.3 H MCH 34.4 H MCHC 33.3 RDW 12.1 Plt Count 116 L MPV 9.9 Immature Gran % 0.6 Neutrophils % 90.6 Lymphocytes % 4.2 Monocytes % 4.6 Eosinophils % 0.0 Basophils % 0.0 Nucleated RBC % 0 Absolute Neutrophils 9.28 H Absolute Lymphocytes 0.43 L Absolute Monocytes 0.47 Absolute Eosinophils 0.00 Absolute Basophils 0.00 Sodium 137 Potassium 3.6 Chloride 104 Carbon Dioxide 26.8 Anion Gap 6.2 BUN 34 H Creatinine 1.5 H Estimated GFR/1.73 m2 44.92 Glucose 115 H Calcium 8.2 L C-Reactive Protein 19.00 H Stl C.difficile Tox PCR Cancelled PAWSS Have you Been Recently Intoxicated or Drunk Within the Last 30 days?: No Have you Ever Experienced Previous Episodes of Alcohol Withdrawal?: No Have you ever Experienced Withdrawal Seizures?: No Have you ever Experienced Delirium Tremens(DT)s?: No Have you ever undergone Alcohol Rehabilitation Treatment (i.e, inpt ot outpatient treatment programs)?: No Have you ever Experienced Blackouts?: No Have you ever Combined Alcohol with other Downers within the last 90 days?: No Have you ever Combined Alcohol with any other Substance of Abuse during the last 90 days?: No Positive Blood Alcohol level on Presentation? [PCS.BAL]: No Evidence of Increased Autonomic Activity (i.e. HR>120, tremor, sweating, agitation, nausea)?: No Result: 0
[2021-08-29] MEDS: cefTRIAXone 2 GM/50 ML BAG IVPB (14:33)
[2021-08-29] MEDS: Lactated Ringers 1,000 ML 65 ML IV (14:37)
[2021-08-29 16:16] VITALS: BP 143/77; PULSE 62; RESP 17; TEMP 36.4; O2SAT 97
[2021-08-29] MEDS: Enoxaparin 30 MG/0.3 ML SYR SC (18:00)
[2021-08-29] MEDS: Sennosides/Docusate Sodium TAB 1 TAB PO (21:01)
[2021-08-29] MEDS: rOPINIRole 1 MG TAB 2 MG PO (21:01)
[2021-08-29 23:03] VITALS: BP 169/88; PULSE 56; RESP 19; TEMP 36.6; O2SAT 98
[2021-08-30] MEDS: Levothyroxine 75 MCG TAB PO (05:06)
[2021-08-30] MEDS: Lactated Ringers 1,000 ML 65 ML IV (05:06)
[2021-08-30] MEDS: Psyllium PKT 1 EACH PO ×2 (07:47→21:10)
[2021-08-30] MEDS: Tamsulosin 0.4 MG CAPCR 0.8 MG PO (07:47)
[2021-08-30] MEDS: Sennosides/Docusate Sodium TAB 1 TAB PO ×2 (07:47→21:10)
[2021-08-30] MEDS: Sertraline 25 MG TAB PO (07:47)
[2021-08-30] MEDS: Folic Acid 1 MG TAB PO (07:47)
[2021-08-30] MEDS: Thiamine 100 MG TAB PO (07:47)
[2021-08-30] MEDS: Multivitamin TAB 1 TAB PO (07:47)
[2021-08-30] MEDS: predniSONE 5 MG TAB PO (07:47)
[2021-08-30] MEDS: predniSONE 20 MG TAB 40 MG PO (07:47)
[2021-08-30] MEDS: Finasteride 5 MG TAB PO (07:48)
[2021-08-30] MEDS: Lactobacillus Acidophilus CAP 1 CAP PO ×3 (07:48→21:10)
[2021-08-30 08:17] VITALS: BP 135/73; PULSE 60; RESP 17; TEMP 36; O2SAT 99
--- NOTE | 2021-08-30 10:00 | CMPROGNOTE_ITS ---
- If Service Date Differs Date of service: 08/30/21 Time of Service: 10:00 Care Management Progress Note S/O: Jarrod was sitting up in a chair when CM met with him. He stated that he still has abdominal distension and discomfort but no real pain. He understands that he will need a few more days of IV antibiotics. Al shared that he has some chronic pain issues with his back and leg and goes to the [facility] in [place]. He also talked about moving here from [place] about 5 years ago when he got . 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 He has a sister who lives about a mile from him and they are close and support one another. He also has 3 children who live out of state. A: Wilfrido is an 81 year old male admitted to [facility] on 08/27/21 with pyelonephritis. P: Anticipate Jarrod will return home when medically cleared. His sister will likely drive him home via private vehicle. He will follow up with his PCP and discharge plan of care. CM will continue to follow.
[2021-08-30] MEDS: cefTRIAXone 2 GM/50 ML BAG IVPB (13:48)
[2021-08-30] MEDS: Bisacodyl 10 MG SUPP PR (14:34)
[2021-08-30] MEDS: Polyethylene Glycol 3350 17 GM PACKET PO (14:35)
[2021-08-30 15:56] VITALS: BP 160/86; PULSE 67; RESP 18; TEMP 36.6; O2SAT 99
--- NOTE | 2021-08-30 16:42 | W.PM.PROGNOT ---
Date of Service Date of service: 08/30/21 Time of Service: 16:42 Assessment and Plan Assessment and plan (1) E coli bacteremia: Status: Acute Assessment and plan: Repeat blood cultures from 08/29 are no growth at 24hr. he is on day #4 of Rocephin 2 gm daily. Initial urine and blood cultures grew E. coli which was pansensitive. Patient needs treatment for 10 days total however, now that his blood cultures are no growth, he could be switched tomorrow to oral antibiotics and discharged home. I would give him his 5th day of ceftriaxone tomorrow before discharge then give him 5 more days of an oral agent either 3rd generation cephalosporin or cipro (2) ANDRZEJ (acute kidney injury): Status: Acute Assessment and plan: renal fxn has recovered. IV fluids dc'ed today.(was suppose to be dc'ed yesterday but I missed this). Will put him back on a diuretic as he seems to be retaining some fluids.. (3) BPH (benign prostatic hyperplasia): Status: Chronic Assessment and plan: Continue Flomax and Proscar Flomax was increased to 0.8 mg daily. patient to follow w/ Dr. Valdez as outpatient. At some point he is going to need a TURP. I think he keeps getting recurrent urinary sepsis from incomplete voiding. Qualifiers: Lower urinary tract symptom presence: symptoms present Lower urinary tract symptom detail: incomplete bladder emptying Qualified Code(s): N40.1 - Benign prostatic hyperplasia with lower urinary tract symptoms; R39.14 - Feeling of incomplete bladder emptying (4) Chronic kidney disease: Status: Chronic Assessment and plan: Continue to monitor urine output and daily BMP Qualifiers: Chronic kidney disease stage: stage 3 (moderate) Chronic kidney disease stage 3 subtype: unspecified whether 3a or 3b Qualified Code(s): N18.30 - Chronic kidney disease, stage 3 unspecified Subjective Subjective Interval history since last seen: Patient no longer has diarrhea but actually has been constipated and feeling bloated. He was given Miralax and dulcolax suppository w/ small soft BM today. nevertheless he still feels bloated. We have been checking his post void urinary residuals to be sure that he is not acutely obstructed. he had a KUB yesterday that did not show any bowel obstruction. I think some of his feeling of bloating may be abdominal edema as his diuretics were held and he had been on iv fluids to resuscitate his renal function. BUN and creatinine are down to 34 adn 1.5 . I will resume diuretics and put him back on his Losartan as his BP have been climbing. Exam Narrative Exam Narrative: Elderly white male sitting up in his chair watching TV. Lungs: fine dry rales; no rhonchi or wheezing Heart: RRR flank: no tenderness Abdomen: large protuberant, but nontender; questionable hepatomegaly but difficult to examine while he was in his chair Legs/feet: 1+pitting edema Objective Last Vital Signs Temp 36.6 C 08/30/21 15:56 Pulse 67 08/30/21 15:56 Resp 18 08/30/21 15:56 BP 160/86 H 08/30/21 15:56 Pulse Ox 99 08/30/21 15:56 PAWSS Have you Been Recently Intoxicated or Drunk Within the Last 30 days?: No Have you Ever Experienced Previous Episodes of Alcohol Withdrawal?: No Have you ever Experienced Withdrawal Seizures?: No Have you ever Experienced Delirium Tremens(DT)s?: No Have you ever undergone Alcohol Rehabilitation Treatment (i.e, inpt ot outpatient treatment programs)?: No Have you ever Experienced Blackouts?: No Have you ever Combined Alcohol with other Downers within the last 90 days?: No Have you ever Combined Alcohol with any other Substance of Abuse during the last 90 days?: No Positive Blood Alcohol level on Presentation? [PCS.BAL]: No Evidence of Increased Autonomic Activity (i.e. HR>120, tremor, sweating, agitation, nausea)?: No Result: 0
[2021-08-30] MEDS: Furosemide 20 MG/2 ML VIAL IVP (17:03)
[2021-08-30] MEDS: Losartan 50 MG TAB PO (17:03)
[2021-08-30] MEDS: Enoxaparin 30 MG/0.3 ML SYR SC (17:03)
[2021-08-30] MEDS: rOPINIRole 1 MG TAB 2 MG PO (21:10)
[2021-08-30 23:40] VITALS: BP 175/93; PULSE 66; RESP 18; TEMP 36.1; O2SAT 96
[2021-08-31] MEDS: Levothyroxine 75 MCG TAB PO (05:58)
[2021-08-31] MEDS: Polyethylene Glycol 3350 17 GM PACKET PO ×3 (05:58→20:28)
[2021-08-31 06:01] VITALS: BP 146/70
[2021-08-31 07:10] LABS: Abs Immature Grans 0.05 10^3/uL (0.0-0.06); Absolute Eosinophil Count 0.02 10^3/uL (0.0-0.7); Absolute Monocyte Count 0.56 10^3/uL (0.1-0.8); Absolute Neutrophil Count 4.93 10^3/uL (1.2-6.7); Eosinophils % 0.3; HCT 36.5 % (40.0-50.0); Immature Grans % 0.8; Lymphocytes % 11.2; MCH 33.7 pg (27.0-33.0); MCHC 32.9 % (32.0-36.0); MCV 102.5 fL (80-95); MPV 10.2 fL (8.0-11.0); Monocytes % 8.9; Neutrophils % 78.8; Nucleated RBC 0 %; Platelet Count 134 10^3/uL (130-400); RBC 3.56 10^6/uL (4.36-5.78); RDW 12.2 % (11.8-14.1); RDW-SD 46.2 fL; WBC 6.26 10^3/uL (4.4-10.8)
[2021-08-31 07:27] LABS: Anion Gap 6.5 mmol/L (3-11); BUN 36 mg/dL (7-18); C-Reactive Protein 5.59 mg/dL (0.0-0.3); CO2 30.5 mmol/L (21.0-32.0); CREATININE 1.5 mg/dL (0.70-1.30); Calcium 8.8 mg/dL (8.5-10.1); Chloride 102 mmol/L (98-107); Estimated GFR 44.92 (mL/min/1.73m2); Glucose 85 mg/dL (74-106); Potassium 3.8 mmol/L (3.5-5.1); Sodium 139 mmol/L (136-145)
[2021-08-31] MEDS: Bisacodyl 10 MG SUPP PR (07:38)
[2021-08-31] MEDS: Thiamine 100 MG TAB PO (07:38)
[2021-08-31] MEDS: Psyllium PKT 1 EACH PO ×2 (07:38→20:29)
[2021-08-31] MEDS: predniSONE 20 MG TAB 40 MG PO (07:38)
[2021-08-31] MEDS: Tamsulosin 0.4 MG CAPCR 0.8 MG PO (07:38)
[2021-08-31] MEDS: Sennosides/Docusate Sodium TAB 1 TAB PO ×2 (07:38→20:27)
[2021-08-31] MEDS: Multivitamin TAB 1 TAB PO (07:39)
[2021-08-31] MEDS: Lactobacillus Acidophilus CAP 1 CAP PO ×3 (07:39→20:27)
[2021-08-31] MEDS: Folic Acid 1 MG TAB PO (07:39)
[2021-08-31] MEDS: Losartan 25 MG TAB 50 MG PO (07:39)
[2021-08-31] MEDS: Sertraline 25 MG TAB PO (07:39)
[2021-08-31] MEDS: predniSONE 5 MG TAB PO (07:39)
[2021-08-31] MEDS: Finasteride 5 MG TAB PO (07:39)
[2021-08-31 07:47] LABS: Procalcitonin 4.7 ng/mL
[2021-08-31] MEDS: Furosemide 20 MG/2 ML VIAL IVP (10:43)
[2021-08-31 10:44] VITALS: BP 150/81; PULSE 68; RESP 18; O2SAT 99
--- NOTE | 2021-08-31 11:37 | PT.INIE ---
PT Notes Visit Reasons: Pyelonephritis Physical Therapy Inpatient Initial Evaluation Date: 08/31/21 Referring Doctor: Rajwinder Nye MD PT Orders: PT CONSULT Precautions: Fall. Standard. Patient Profile/Admitting Diagnosis: UTI, ANDRZEJ PMHX: All Active Problems (Updated 08/27/21 @ 19:15 by Edwin Reinoso) Chronic kidney disease (Chronic) Sepsis (Acute) UTI (urinary tract infection) (Acute) ANDRZEJ (acute kidney injury) (Acute) Sleep apnea (Acute) Kidney stone (Chronic) BPH (benign prostatic hyperplasia) (Chronic) PAD (peripheral artery disease) (Chronic) Medical History (Updated 08/27/21 @ 19:15 by Edwin Reinoso) Chronic ethmoidal sinusitis Chronic frontal sinusitis Deviated nasal septum Dilated aortic root Fractured rib mid Sept 2018 Hypothyroidism Lyme disease Nasal septal spur Nasal turbinate hypertrophy Parkinsons pt. states he does not have Polymyalgia rheumatica pt. reports he has this not parkinsons Pulmonary fat embolism Surgical History Hx of colonoscopy Hx of inguinal hernia surgery Hx of total hip arthroplasty right Social History/Home Situation: Pt lives alone in a single story home with 3 stair entry (L rail) Equipment Owned/DME: None Subjective: Cleared by nursing to see patient and patient is agreeable to PT. Patient sitting up in chair at time of consult in no acute distress. Objective: General Observation: Pt hard of hearing, but engaged in pleasant conversation. Peripheral edema as noted previously (1+) in BLEs. Mental Status: A&O x3 Vitals: BP: 150/81 seated HR: 67 prior to ambulation, 89 following 250ft of ambulation SpO2: 99% on RA prior to ambulation, 94% on RA following ambulation ROM: Right Upper Extremity: Shoulder Flexion WFL. Shoulder abduction WFL. Elbow flexion WFL. Wrist flexion WFL. Opening and closing of hand WFL. Left Upper Extremity: Shoulder Flexion WFL. Shoulder abduction WFL. Elbow flexion WFL. Wrist flexion WFL. Opening and closing of hand WFL. Right Lower Extremity: Hip flexion WFL. Hip abduction WFL. Knee flexion WFL. Ankle dorsiflexion WFL. Ankle plantarflexion WFL. Left Lower Extremity: Hip flexion WFL. Hip abduction WFL. Knee flexion WFL. Ankle dorsiflexion WFL. Ankle plantarflexion WFL. Strength: Right Upper Extremity: Shoulder flexors 5/5. Shoulder abductors 5/5. Elbow flexors 5/5. Elbow extensors 5/5. 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 Left Upper Extremity: Shoulder flexors 5/5. Shoulder abductors 5/5. Elbow flexors 5/5. Elbow extensors 5/5. 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 Right Lower Extremity: Hip flexors 5/5. Hip abductors 5/5. Knee flexors 5/5. Knee extensors 5/5. Ankle dorsiflexors 5/5. Ankle plantarflexors 5/5. Left Lower Extremity: Hip flexors 5/5. Hip abductors 5/5. Knee flexors 5/5. Knee extensors 5/5. Ankle dorsiflexors 5/5. Ankle plantarflexors 5/5. Sensation: Intact as to pain and pressure on bilateral lower extremities. Bed Mobility/Transfers: Rolling: I Supine to sit: I Sit to supine: I Sit to stand: I Stand to sit: I Bed to chair: I Chair to bed: I Gait: Ambulated [id number] without AD, reciprocal gait pattern WNL, I Stairs: Ascent/descent of 2 steps with L rail consistent with home environment, I Balance: Static Sitting: I Dynamic Sitting: I Static Standing: I Dynamic Standing: I 4 stage balance test Time completed FT 10s Semi-tandem 10s Tandem 10s SLS 3s Special Tests: Mobility Limitations Standardized Measure [facility] AM-PAC 6 clicks Basic Mobility Inpatient Short Form: Raw Score: 24 CMS Score: 0% Informed Consent/Education: Patient instructed in purpose of PT consult and plan of care. Assessment: Patient presents with clinical signs and symptoms consistent with current/admitting diagnoses that have resulted in hesitation to participate in mobility, but with no functional mobility deficits notable at this time. Patient is assessed as a low complexity based on the following: History: 81 year old male identifying person with impairment level findings, functional limitations, and past medical history as indicated above Examination: No demonstrable impairment in strength, balance, and mobility level at the time of consult. Presentation: Stable Decision Making: low complexity Plan of Care/Treatment Plan: Considering pt's mobility status at the time of consult, pt is not appropriate for skilled physical therapy services in this environment. Pt may be recommended follow-up with cardiopulmonary rehab or OP PT for a progressive aerobic exercise program to support management of PVD. DISCHARGE RECOMMENDATIONS: From a mobility perspective, pt is appropriate for DC to his home environment. TREATMENT CODE/TIME: (30 minutes), [id number] Thank you for the opportunity to participate in the care of this patient.
[2021-08-31] MEDS: cefTRIAXone 2 GM/50 ML BAG IVPB (13:17)
[2021-08-31] MEDS: Enoxaparin 30 MG/0.3 ML SYR SC (17:03)
--- NOTE | 2021-08-31 18:51 | W.PM.PROGNOT ---
Date of Service Date of service: 08/31/21 Time of Service: 16:50 Assessment and Plan Assessment and plan (1) Pyelonephritis due to Escherichia coli: Status: Acute Assessment and plan: Improving on high dose ceftriaxone. In setting of urinary retention. Not retaining urine now on flomax. Plan to discharge home tomorrow with oral abx. (2) E coli bacteremia: Status: Acute Assessment and plan: As above (3) ANDRZEJ (acute kidney injury): Status: Resolved Assessment and plan: Monitor while on diuretics. (4) BPH (benign prostatic hyperplasia): Status: Chronic Assessment and plan: Continue increased dose of Flomax and Proscar Needs outpatient follow up with urology for a TURP. Qualifiers: Lower urinary tract symptom presence: symptoms present Lower urinary tract symptom detail: incomplete bladder emptying Qualified Code(s): N40.1 - Benign prostatic hyperplasia with lower urinary tract symptoms; R39.14 - Feeling of incomplete bladder emptying (5) Chronic kidney disease: Status: Chronic Assessment and plan: Continue to monitor Cr Qualifiers: Chronic kidney disease stage: stage 3 (moderate) Chronic kidney disease stage 3 subtype: unspecified whether 3a or 3b Qualified Code(s): N18.30 - Chronic kidney disease, stage 3 unspecified (6) DVT prophylaxis: Status: Acute Assessment and plan: renally dosed lovenox (7) Discharge planning issues: Status: Acute Assessment and plan: Full code Anticipate discharge home tomorrow on PO abx Subjective Subjective Interval history since last seen: The patient states he is feeling better and is excited that he will be going home tomorrow. He is still concerned that his BM was not normal today (just had one, it was soft). Flank pain has resolved. Denies dizziness, chest pain, shortness of breath, nausea. Exam Narrative Exam Narrative: General: Pleasant elderly male who looks tired, A&Ox3 HEENT: EOMI, MMM Heart: RRR, no m/r/g Lungs: CTAB Abdomen: soft, nontender, nondistended Extremities: 2+ pitting edema BLE's, symmetric Objective Last Vital Signs Temp 36.1 C L 08/30/21 23:40 Pulse 68 08/31/21 10:44 Resp 18 08/31/21 10:44 BP 150/81 H 08/31/21 10:44 Pulse Ox 99 08/31/21 10:44 Laboratory Results - last 24 hr 08/31/21 08/31/21 08/31/21 06:38 06:38 06:38 WBC 6.26 RBC 3.56 L Hgb 12.0 L Hct 36.5 L MCV 102.5 H MCH 33.7 H MCHC 32.9 RDW 12.2 Plt Count 134 MPV 10.2 Immature Gran % 0.8 Neutrophils % 78.8 Lymphocytes % 11.2 Monocytes % 8.9 Eosinophils % 0.3 Basophils % 0.0 Nucleated RBC % 0 Absolute Neutrophils 4.93 Absolute Lymphocytes 0.70 L Absolute Monocytes 0.56 Absolute Eosinophils 0.02 Absolute Basophils 0.00 Sodium 139 Potassium 3.8 Chloride 102 Carbon Dioxide 30.5 Anion Gap 6.5 BUN 36 H Creatinine 1.5 H Estimated GFR/1.73 m2 44.92 Glucose 85 Calcium 8.8 C-Reactive Protein 5.59 H Procalcitonin 4.7 PAWSS Have you Been Recently Intoxicated or Drunk Within the Last 30 days?: No Have you Ever Experienced Previous Episodes of Alcohol Withdrawal?: No Have you ever Experienced Withdrawal Seizures?: No Have you ever Experienced Delirium Tremens(DT)s?: No Have you ever undergone Alcohol Rehabilitation Treatment (i.e, inpt ot outpatient treatment programs)?: No Have you ever Experienced Blackouts?: No Have you ever Combined Alcohol with other Downers within the last 90 days?: No Have you ever Combined Alcohol with any other Substance of Abuse during the last 90 days?: No Positive Blood Alcohol level on Presentation? [PCS.BAL]: No Evidence of Increased Autonomic Activity (i.e. HR>120, tremor, sweating, agitation, nausea)?: No Result: 0
[2021-08-31 21:28] VITALS: BP 163/73; PULSE 56; RESP 20; TEMP 36.2; O2SAT 99
[2021-08-31] MEDS: rOPINIRole 1 MG TAB 2 MG PO (21:35)
[2021-08-31 23:52] LABS: Campylobacter PCR Negative (Negative); Salmonella PCR Negative (Negative); Shiga Toxin PCR Negative (Negative); Shigella/Enteroinvasive Ecoli Negative (Negative)
[2021-09-01 03:20] VITALS: BP 177/65; PULSE 53; RESP 16; TEMP 36.3; O2SAT 99
[2021-09-01 06:07] LABS: Abs Immature Grans 0.16 10^3/uL (0.0-0.06); Absolute Basophil Count 0.02 10^3/uL (0.0-0.2); Absolute Eosinophil Count 0.08 10^3/uL (0.0-0.7); Absolute Lymphocyte Count 1.29 10^3/uL (1.2-3.4); Absolute Monocyte Count 0.79 10^3/uL (0.1-0.8); Absolute Neutrophil Count 6.23 10^3/uL (1.2-6.7); Basophils % 0.2; Eosinophils % 0.9; HCT 36.4 % (40.0-50.0); HGB 12.5 g/dL (13.5-17.5); Immature Grans % 1.9; Lymphocytes % 15.1; MCHC 34.3 % (32.0-36.0); MPV 10.1 fL (8.0-11.0); Monocytes % 9.2; Neutrophils % 72.7; Nucleated RBC 0 %; Platelet Count 159 10^3/uL (130-400); RBC 3.57 10^6/uL (4.36-5.78); WBC 8.57 10^3/uL (4.4-10.8)
[2021-09-01] MEDS: Levothyroxine 75 MCG TAB PO (06:11)
[2021-09-01 06:30] LABS: ALT 17 U/L (16-63); AST 12 U/L (15-37); Albumin 2.7 g/dL (3.4-5.0); Alkaline Phosphatase 43 U/L (46-116); Anion Gap 5.4 mmol/L (3-11); BUN 36 mg/dL (7-18); Bilirubin, Direct 0.2 mg/dL (0.0-0.2); Bilirubin, Total 0.6 mg/dL (0.2-1.0); C-Reactive Protein 3.06 mg/dL (0.0-0.3); CO2 30.6 mmol/L (21.0-32.0); CREATININE 1.4 mg/dL (0.70-1.30); Calcium 8.4 mg/dL (8.5-10.1); Chloride 103 mmol/L (98-107); Estimated GFR 48.64 (mL/min/1.73m2); Glucose 85 mg/dL (74-106); Potassium 3.9 mmol/L (3.5-5.1); Sodium 139 mmol/L (136-145); Total Protein 5.9 g/dL (6.4-8.2)
[2021-09-01] MEDS: Sennosides/Docusate Sodium TAB 1 TAB PO ×2 (08:44→19:55)
[2021-09-01] MEDS: Psyllium PKT 1 EACH PO ×2 (08:44→19:55)
[2021-09-01] MEDS: Lactobacillus Acidophilus CAP 1 CAP PO ×3 (08:45→19:55)
[2021-09-01] MEDS: Furosemide 20 MG/2 ML VIAL IVP (08:45)
[2021-09-01] MEDS: Thiamine 100 MG TAB PO (08:45)
[2021-09-01] MEDS: Tamsulosin 0.4 MG CAPCR 0.8 MG PO (08:45)
[2021-09-01] MEDS: predniSONE 5 MG TAB PO (08:45)
[2021-09-01] MEDS: Finasteride 5 MG TAB PO (08:45)
[2021-09-01] MEDS: Sertraline 25 MG TAB PO (08:45)
[2021-09-01] MEDS: Folic Acid 1 MG TAB PO (08:46)
[2021-09-01] MEDS: Multivitamin TAB 1 TAB PO (08:46)
[2021-09-01] MEDS: Losartan 25 MG TAB 50 MG PO (08:46)
[2021-09-01] MEDS: predniSONE 20 MG TAB 40 MG PO (08:46)
[2021-09-01] MEDS: cefTRIAXone 2 GM/50 ML BAG IVPB (13:38)
--- NOTE | 2021-09-01 15:55 | W.PM.PROGNOT ---
Date of Service Date of service: 09/01/21 Time of Service: 15:56 Assessment and Plan Assessment and plan (1) Pyelonephritis due to Escherichia coli: Status: Acute Assessment and plan: Improving on high dose ceftriaxone. In setting of urinary retention. Not retaining urine now on flomax. Continue ceftriaxone. Repeat blood cultures are negative. Plan to discharge home tomorrow with oral abx. Will add probiotics. (2) E coli bacteremia: Status: Acute Assessment and plan: As above (3) ANDRZEJ (acute kidney injury): Status: Resolved Assessment and plan: Monitor while on diuretics. (4) BPH (benign prostatic hyperplasia): Status: Chronic Assessment and plan: Continue increased dose of Flomax and Proscar Needs outpatient follow up with urology for a TURP. Qualifiers: Lower urinary tract symptom presence: symptoms present Lower urinary tract symptom detail: incomplete bladder emptying Qualified Code(s): N40.1 - Benign prostatic hyperplasia with lower urinary tract symptoms; R39.14 - Feeling of incomplete bladder emptying (5) Chronic kidney disease: Status: Chronic Assessment and plan: Continue to monitor Cr Qualifiers: Chronic kidney disease stage: stage 3 (moderate) Chronic kidney disease stage 3 subtype: unspecified whether 3a or 3b Qualified Code(s): N18.30 - Chronic kidney disease, stage 3 unspecified (6) DVT prophylaxis: Status: Acute Assessment and plan: renally dosed lovenox (7) Discharge planning issues: Status: Acute Assessment and plan: Full code Anticipate discharge home tomorrow on PO abx. The patient is making those arrangements. Will need outpatient urology follow up. Subjective Subjective Interval history since last seen: Mr Solorzano states that he did not feel comfortable with his sister driving in the snow/ice storm today to pick him up, but he is making arrangements to be picked up tomorrow am at 11 am. Denies dizziness, chest pain, shortness of breath, nausea. States that he is now concerned that he is not passing as much stool. He is able to pass flatus. He is afraid to pass it because then he will also pass stool. I told him to not be afraid and to just do it on the toilet. He stated he knew he should do that. Exam Narrative Exam Narrative: General: Pleasant elderly male who looks tired, A&Ox3 HEENT: EOMI, MMM Heart: RRR, no m/r/g Lungs: CTAB Abdomen: soft, nontender, nondistended Extremities: 2+ pitting edema BLE's in TEDs, better than yesterday, symmetric Objective Last Vital Signs Temp 36.3 C L 09/01/21 03:20 Pulse 53 L 09/01/21 03:20 Resp 16 09/01/21 03:20 BP 177/65 H 09/01/21 03:20 Pulse Ox 99 09/01/21 03:20 Laboratory Results - last 24 hr 08/31/21 09/01/21 09/01/21 09:55 05:22 05:22 WBC 8.57 D RBC 3.57 L Hgb 12.5 L Hct 36.4 L MCV 102.0 H MCH 35.0 H MCHC 34.3 RDW 12.0 Plt Count 159 MPV 10.1 Immature Gran % 1.9 Neutrophils % 72.7 Lymphocytes % 15.1 Monocytes % 9.2 Eosinophils % 0.9 Basophils % 0.2 Nucleated RBC % 0 Absolute Neutrophils 6.23 Absolute Lymphocytes 1.29 Absolute Monocytes 0.79 Absolute Eosinophils 0.08 Absolute Basophils 0.02 Sodium 139 Potassium 3.9 Chloride 103 Carbon Dioxide 30.6 Anion Gap 5.4 BUN 36 H Creatinine 1.4 H Estimated GFR/1.73 m2 48.64 Glucose 85 Calcium 8.4 L Magnesium 2.0 Total Bilirubin 0.6 Conjugated Bilirubin 0.2 AST 12 L ALT 17 Alkaline Phosphatase 43 L C-Reactive Protein 3.06 H Total Protein 5.9 L Albumin 2.7 L Stool Campylobacter PCR Negative Stool Salmonella PCR Negative Stool Shigella PCR Negative Shiga Toxin (PCR) Negative PAWSS Have you Been Recently Intoxicated or Drunk Within the Last 30 days?: No Have you Ever Experienced Previous Episodes of Alcohol Withdrawal?: No Have you ever Experienced Withdrawal Seizures?: No Have you ever Experienced Delirium Tremens(DT)s?: No Have you ever undergone Alcohol Rehabilitation Treatment (i.e, inpt ot outpatient treatment programs)?: No Have you ever Experienced Blackouts?: No Have you ever Combined Alcohol with other Downers within the last 90 days?: No Have you ever Combined Alcohol with any other Substance of Abuse during the last 90 days?: No Positive Blood Alcohol level on Presentation? [PCS.BAL]: No Evidence of Increased Autonomic Activity (i.e. HR>120, tremor, sweating, agitation, nausea)?: No Result: 0
[2021-09-01 18:16] VITALS: BP 146/78; PULSE 76; RESP 14; TEMP 36.8; O2SAT 99
[2021-09-01] MEDS: Enoxaparin 30 MG/0.3 ML SYR SC (18:26)
[2021-09-01] MEDS: rOPINIRole 1 MG TAB 2 MG PO (21:29)
[2021-09-01 23:04] VITALS: BP 157/76; PULSE 78; RESP 16; TEMP 36.6; O2SAT 97
[2021-09-02 02:03] VITALS: O2SAT 95
[2021-09-02] MEDS: Levothyroxine 75 MCG TAB PO (05:30)
[2021-09-02] MEDS: Tamsulosin 0.4 MG CAPCR 0.8 MG PO (07:47)
[2021-09-02] MEDS: Furosemide 20 MG/2 ML VIAL IVP (07:47)
[2021-09-02] MEDS: Losartan 25 MG TAB 50 MG PO (07:48)
[2021-09-02] MEDS: Thiamine 100 MG TAB PO (07:48)
[2021-09-02] MEDS: Multivitamin TAB 1 TAB PO (07:48)
[2021-09-02] MEDS: predniSONE 5 MG TAB PO (07:48)
[2021-09-02] MEDS: Sennosides/Docusate Sodium TAB 1 TAB PO (07:48)
[2021-09-02] MEDS: Sertraline 25 MG TAB PO (07:48)
[2021-09-02] MEDS: predniSONE 20 MG TAB PO (07:49)
[2021-09-02] MEDS: Lactobacillus Acidophilus CAP 1 CAP PO (07:49)
[2021-09-02] MEDS: Folic Acid 1 MG TAB PO (07:49)
[2021-09-02] MEDS: Psyllium PKT 1 EACH PO (07:49)
[2021-09-02] MEDS: Finasteride 5 MG TAB PO (07:49)
[2021-09-02 09:39] VITALS: BP 112/64; PULSE 77; RESP 12; TEMP 36.9; O2SAT 99
--- NOTE | 2021-09-02 11:03 | DSE_ITS ---
Date of service: 09/02/21 Time of Service: 11:04 DS: Diagnosis Discharge Diagnosis (1) Pyelonephritis due to Escherichia coli: Status: Acute (2) E coli bacteremia: Status: Acute (3) ANDRZEJ (acute kidney injury): Status: Resolved (4) BPH (benign prostatic hyperplasia): Status: Chronic (5) Chronic kidney disease: Status: Chronic (6) DVT prophylaxis: Status: Acute (7) Discharge planning issues: Status: Acute Discharge Plan Disposition Patient Disposition: HOME Condition: Stable Discharge Details Reason For Visit: Pyelonephritis Admit Date/Time: 08/27/21 15:54 Admit Provider: Edwin Reinoso Attending Provider: Edwin Reinoso Primary Care Provider: Ana Wilkes Hospital Course Hospital Course: This is an 81 year old male with a history of Parkinson's disease, polymyalgia rheumatica, hypothyroidism, essential hypertension who presented emergency department with acute onset of right flank pain that began the prior day. It was associated with some diarrhea and nausea. Work up in the ED was concerning for pyelonephritis. He has a nonobstructing 8 mm stone in the right lower renal pole. He has no evidence for obstructive uropathy. He was started on ceftriaxone and admitted to med/surg. He was also noted to have acute on chronic renal failure, which improved with fluids. He creatinine down to baseline of 1.4 on discharge. His blood cultures and urine cultures grew e coli sensitive to treatment regimen. His blood cultures cleared quickly. His hospital course was also complicated by urinary retention which did respond to tansulosin. He began voiding without evidence of retention. He will be discharged to home to complete 2 weeks of antibiotics to treat his bacteremia. He will follow up outpatient with urology. He was also prescribed probiotiics. discharge discussed with DR Nye [place] Meds and New Rx's Prescriptions: New cefpodoxime 200 mg tablet 200 mg PO BID Qty: 21 RF: 0 tamsulosin 0.4 mg Capsule 0.8 mg PO DAILY Qty: 60 RF: 0 acidophilus-pectin, citrus 25 million cell -100 mg Tablet See Rx Instructions .ROUTE .COMPLEX Qty: 30 RF: 0 prednisone 20 mg Tablet See Taper mg PO DAILY Qty: 20 RF: 0 Continued nitroglycerin [Nitrostat] 0.4 mg tablet, sublingual 0.4 mg SL Q5-15M PRNRF: 0 ipratropium-albuterol 0.5 mg-3 mg(2.5 mg base)/3 mL solution for nebulization 3 ml IH Q6H PRNRF: 0 albuterol sulfate [ProAir HFA] 90 mcg/actuation HFA aerosol inhaler 2 puff IH Q6H PRNRF: 0 furosemide [Lasix] 20 mg tablet 20 mg PO DAILY PRNRF: 0 losartan 50 mg tablet 75 mg PO DAILY RF: 0 levothyroxine 75 MCG tablet 75 mcg PO DAILY RF: 0 ropinirole 2 MG tablet 2 mg PO HS RF: 0 ibuprofen 200 mg Tablet 400 mg PO PRN PRNRF: 0 acetaminophen [Tylenol Extra Strength] 500 mg Tablet 1,000 mg PO Q4H PRNRF: 0 prednisone 5 mg tablet 5 mg PO DAILY RF: 0 tramadol 50 mg tablet 50 mg PO BID PRN PRNRF: 0 sertraline 25 mg tablet 25 mg PO DAILY RF: 0 montelukast 10 mg tablet 10 mg PO DAILY RF: 0 finasteride 5 mg tablet 5 mg PO DAILY RF: 0 Discharge Instructions Instructions: Urinary Retention in Men (ED), Urinary Tract Infection in Men (DC), Bacteremia (DC) Additional Instructions: complete antibiotics as prescribed, even if you feel better taper steroids as directed. drink 6-8 glass of water daily to stay well hydrated report signs of unitary retention Stand Alone Forms: Nursing Discharge Form Referrals: Justin Valdez MD [ [facility] STAFF PHYSICIAN] - (Please call Friday to make a follow up appointment) Ana Wilkes [Primary Care Provider] - (Please call Friday to make a follow up appointment) Activity:: Activity as Tolerated Equipment/Supplies:: No Equipment Needed Diet:: As Tolerated Discharge Orders Discharge Orders: Discharge Order (Routine); Ordered 09/02/21 Ordered By: Jil Marcano Discharge Data Discharge Date/Time-TO BE ENTERED AT DEPARTURE: 09/02/21 11:30 DS: Summary Time Spent with Patient providing and/or coordinating discharge services: Less than 30 minutes Status at Discharge Functional status at discharge: independent ambulation Overall status at discharge: patient is back to baseline Mental Status: mental status grossly normal Speech and Movement: speech and movement normal Mood: congruent mood Affect: normal affect Exam Const General: cooperative, comfortable and no acute distress Nutritional Appearance: overweight Orientation: alert, awake and oriented x3 HENMT Head: normal to inspection Chest Chest: normal inspection of the chest Resp Effort & Inspection: normal respiratory effort Cardio Rate: regular rate Rhythm: regular rhythm GI Inspection: normal to inspection and obesity Skin General skin exam: no rashes or lesions noted Neuro General: patient alert, patient awake and patient oriented x3 Psych Mental Status: mental status grossly normal Speech and Movement: speech and movement normal Mood: congruent mood Affect: normal affect DS: Data Vitals/I&O Vitals and I&O: Vital Signs Temperature 36.9 C 09/02/21 09:39 Temperature Source Tympanic 09/01/21 23:04 Pulse 77 09/02/21 09:39 Pulse Rhythm Regular 09/02/21 04:09 Pulse 71 08/27/21 15:46 Respiratory Rate 12 09/02/21 09:39 Respiratory Effort 09/02/21 04:09 Respiratory Depth Normal 09/02/21 04:09 Respiratory Pattern Normal 09/02/21 04:09 Blood Pressure 112/64 09/02/21 09:39 Blood Pressure Mean 80 08/27/21 15:46 Pulse Oximetry 99 09/02/21 09:39 Oxygen Delivery Method Room Air 09/02/21 02:03 Oxygen Flow Rate 0 09/02/21 02:03 Pain Level 0 09/02/21 09:39 Comment 08/28/21 23:25 Intake & Output 09/01/21 09/01/21 09/02/21 11:59 23:59 11:59 Intake Total 1259.167 / 1309.167 50 / 1309.167 410 / 410 Balance 1259.167 / 1309.167 50 / 1309.167 410 / 410 Weight 97.8 kg Intake: IV 769.167 / 819.167 50 / 819.167 50 / 50 Oral 490 / 490 360 / 360 Other: Urine Color Yellow Urine Appearance Clear Clear Clear Voiding Methods Toilet Data Completed and Pending Labs on day of discharge: Preliminary micro results at discharge 08/29/21 07:19 Blood Culture - Preliminary Blood NO GROWTH 96 HOURS 08/29/21 07:08 Blood Culture - Preliminary Blood NO GROWTH 96 HOURS PFSH All Active Problems (Updated 08/31/21 @ 18:54 by Rajwinder Nye MD) Discharge planning issues (Acute) DVT prophylaxis (Acute) Pyelonephritis due to Escherichia coli (Acute) Diarrhea (Acute) E coli bacteremia (Acute) Chronic kidney disease (Chronic) Sepsis (Acute) UTI (urinary tract infection) (Acute) Sleep apnea (Acute) Kidney stone (Chronic) BPH (benign prostatic hyperplasia) (Chronic) PAD (peripheral artery disease) (Chronic) Medical History (Updated 08/31/21 @ 18:54 by Rajwinder Nye MD) Chronic ethmoidal sinusitis Chronic frontal sinusitis Deviated nasal septum Dilated aortic root Fractured rib mid Sept 2018 Hypothyroidism Lyme disease Nasal septal spur Nasal turbinate hypertrophy Parkinsons pt. states he does not have Polymyalgia rheumatica pt. reports he has this not parkinsons Pulmonary fat embolism Surgical History Hx of colonoscopy Hx of inguinal hernia surgery Hx of total hip arthroplasty right Social History Smoking/Tobacco Use Status: Former Tobacco Use Quit Date: 09/08/81 Smoking risk assessment performed?: Yes Alcohol Intake: current Alcohol Intake frequency: 0-2 drinks per day Alcohol type: beer and hard liquor Drug use: Never Substance use type: does not use Details: daily beer /liquor yesterday 1 beer It was a light day Do you feel safe at home: Yes Do you feel safe in your relationship?: Yes Additional Social history: Abby Flores neightbor/friend [phone]
--- NOTE | 2021-09-02 17:50 | PDOC.CMDIS ---
- If Service Date Differs Date of service: 09/02/21 Time of Service: 17:50 LACE Index Scoring Tool - Questions: Length of Stay (in days): 4 - 6 Acuity (Admit via E.D.?): Yes Comorbidities: Liver or Renal Disease E.D. Visits: 1 - Answers: Total Score: 13 Risk of Readmission: High Risk Care Management Discharge Reason for Hospitalization: Pyelonephritis Discharge Plan: Al will return home today with no new services. He was driven home via private vehicle by his sister. He will follow up with his PCP and discharge plan of care. Patient/Family Education Needs: Review discharge instructions and limitations, discussion of self care needs including ask me three.
== END 2021-09-02 11:30 | disposition home or self-care (01) | DRG 871 ==
LOC: ER 16:13 → MS 17:31
PROVIDERS: Internal Medicine; Admitting Provider Internal Medicine; Emergency Provider Student in an Organized Health Care Education/Training Program; PCP Nurse Practitioner Family; Visit Provider Internal Medicine
DX: A41.51 Sepsis due to Escherichia coli [E. coli] (principal); N17.0 Acute kidney failure with tubular necrosis; N10 Acute pyelonephritis; R65.20 Severe sepsis without septic shock; N18.30 Chronic kidney disease, stage 3 unspecified; N20.0 Calculus of kidney; N40.1 Benign prostatic hyperplasia with lower urinary tract symptoms; R39.14 Feeling of incomplete bladder emptying; G20 Parkinson's disease; M35.3 Polymyalgia rheumatica; E03.9 Hypothyroidism, unspecified; I12.9 Hypertensive chronic kidney disease with stage 1 through stage 4 chronic kidney disease, or unspecified chronic kidney disease; G47.30 Sleep apnea, unspecified; I73.9 Peripheral vascular disease, unspecified; R19.7 Diarrhea, unspecified
CPT/HCPCS: 36415; 76770; 80048; 80053; 80076; 83690; 84145; 87040; 87077; 87493; 87505; 87637; 93005; 96361; 96365; 97161; 99222; 99285; 71045; 74019; 74176; 81003; 81015; 83605; 83630; 83735; 84484; 85025; 86140; 87086; 87186; 93010; 99223; 99231; 99232; 99238; J1650; J1720; J1941; J7512

== ENCOUNTER → 2021-08-28 07:31 | Outpatient (BNVA) | payer MEDICARE, SELFPAY | PROVIDERS: PCP Nurse Practitioner Family; Referring Provider Nurse Practitioner Family; Visit Provider Urology | DX: R69 Illness, unspecified (principal) ==

== ENCOUNTER → 2021-09-05 14:26 | Outpatient (BNVA) | payer MEDICARE, SELFPAY | PROVIDERS: PCP Nurse Practitioner Family; Visit Provider Nurse Practitioner Gerontology | DX: N20.0 Calculus of kidney (principal); N40.1 Benign prostatic hyperplasia with lower urinary tract symptoms; R39.14 Feeling of incomplete bladder emptying | CPT/HCPCS: 81003; 99214 ==

== ENCOUNTER 2021-10-03 11:07 | Inpatient (IN) | payer MEDICARE, SELFPAY ==
[2021-10-03] VITALS (40 sets, daily range): BP systolic 132–191; BP diastolic 60–97; PULSE 75–107; RESP 11–30; TEMP 35.7–37.6; O2SAT 83–99
--- NOTE | 2021-10-03 | DI.US_ITS ---
Exam(s) US EXTREMITY VENOUS BI EXAM: US EXTREMITY VENOUS BI CLINICAL HISTORY: leg swelling TECHNIQUE: Grayscale, color, and doppler imaging of the deep venous system of both lower extremities was performed. COMPARISON: US US RENAL from 08/27/2021 FINDINGS: There is no evidence of intraluminal thrombus and there is normal compression and augmentation demons trated within the common femoral veins, femoral veins, and popliteal veins of both lower extremities. In the calves the interrogated veins also exhibit normal compression/ augmentation properties. The greater saphenous veins also appear patent as do the saphenofemoral junctions bilaterally.. IMPRESSION: 1. No ultrasound evidence of DVT in either lower extremity. DATA REPOSITORY:
--- NOTE | 2021-10-03 11:00 | RT.EKG_ITS ---
APPROVED REPORT Exam: Resting ECG Reason for Exam: chest pain Patient Location: E HR:90 bpm ECG Measurements Heart Rate 90 AXIS MD 145 P 14 QRSd 102 QRS -42 QT 358 T 54 QTc 438 Conclusion Sinus rhythm...normal P axis, V-rate 60- 99 Left anterior fascicular block...axis(240,-40), init forces inf Left ventricular hypertrophy...multiple voltage criteria
--- NOTE | 2021-10-03 11:15 | DI.RAD_ITS ---
Exam(s) XR PORTABLE CHEST AP EXAM: XR PORTABLE CHEST AP CLINICAL HISTORY: PUI, SOB. TECHNIQUE: 2D digital imaging was performed. COMPARISON: CR XR PORTABLE CHEST AP from 08/27/2021 FINDINGS: Chest leads in place. Heart size upper normal, unchanged. Tortuous descending thoracic aorta is unc hanged. Patchy bilateral infiltrates have increased from the prior study. No pleural effusions. No pneumoth orax. IMPRESSION: Increased bilateral patchy infiltrates.No obvious pleural effusions. DATA REPOSITORY: RADIATION DOSE DELIVERED: All CT scans at this facility use at least one of these dose optimization techniques: automated exposure control; mA and/or kV adjustment per patient size (includes targeted e xams where dose is matched to clinical indication); or iterative reconstruction.
--- NOTE | 2021-10-03 11:37 | ED.GENADUL_ITS ---
Discharge Plan Disposition Patient Disposition: [facility] INPATIENT Condition: Stable Discharge Details Clinical Impression: Pulmonary emboli, Bilateral pneumonia Admit Date/Time: 10/03/21 14:21 Admit Provider: Rajwinder Nye Attending Provider: Rajwinder Nye Primary Care Provider: Ana Wilkes ED Provider: Haritha Garland Discharge Data Discharge Date/Time-TO BE ENTERED AT DEPARTURE: 10/03/21 15:40 Medical Decision Making 81-year-old male presents to the ER with chief complaint of shortness of breath, intermittent chest pain for the last 2 weeks. Patient reports that chest pain and shortness of breath gets worse with exertion such as cutting wood. He reports that he is felt increased fatigue. He has a past medical history of Parkinson's, polymyalgia rheumatica, hypertension Lyme disease, hypothyroidism, chronic kidney disease, BPH. Upon initial exam he does have some scattered expiratory wheezes with O2 sat is borderline at 89 to 91% on room air. Initial troponin within normal limits, CBC is largely at baseline, CMP shows a BUN of 20 creatinine 1.6 GFR is 41.69, magnesium slightly low 20.2, bilirubin 1.5 proBNP is elevated at 1854 last reading was 600. Covid is pending at this time. EXAM: XR PORTABLE CHEST AP CLINICAL HISTORY: PUI, SOB. TECHNIQUE: 2D digital imaging was performed. COMPARISON: CR XR PORTABLE CHEST AP from 08/27/2021 FINDINGS: Chest leads in place. Heart size upper normal, unchanged. Tortuous descending thoracic aorta is unchanged. Patchy bilateral infiltrates have increased from the prior study. No pleural effusions. No pneumothorax. IMPRESSION: Increased bilateral patchy infiltrates.No obvious pleural effusions. 1251: Furosemide 20 mg IV ordered, informed by executive staff assistant that patient desatted with laying down and any movement to 89% room air. She was able to get him back up to 92% with repositioning. Patient reports no significant improvement after nebulizer treatment. Covid is negative, urinalysis shows red blood cells no leukocytes no nitrite Patient has had approximately 500 cc of urine output after the Lasix. 1411: Spoke with Dr. Jeronimo with radiology who reports that findings are consistent with possible Covid type pneumonia, he also reports a PE in the right upper lobe. Hospitalist paged. 1418: Spoke with Dr. Nye who is on for hospitalist discussed patient case and details, she agrees to accept patient for admission. HPI General Mode of arrival: ambulatory . Date/Time Provider Initiated Documentation: 10/03/21 11:11 . Limitations to Documentation: no limitations . Information obtained by: patient, RN notes reviewed and old records reviewed . HPI Narrative: 81-year-old male presents to the ER with chief complaint of shortness of breath, intermittent chest pain for the last 2 weeks. Patient reports that chest pain and shortness of breath gets worse with exertion such as cutting wood. He reports that he is felt increased fatigue. He has a past medical history of Parkinson's, polymyalgia rheumatica, hypertension Lyme disease, hypothyroidism, chronic kidney disease, BPH. Upon initial exam he does have some scattered expiratory wheezes with O2 sat is borderline at 89 to 91% on room air. Related Data Home Medications Medication Instructions Recorded Confirmed levothyroxine 75 mcg PO DAILY 12/03/16 10/03/21 ropinirole 2 mg PO HS 12/03/16 10/03/21 acetaminophen [Tylenol Extra 1,000 mg PO Q4H PRN 06/30/19 10/03/21 Strength] albuterol sulfate 90 mcg/actuation 2 puff IH Q6H PRN 07/30/19 10/03/21 aerosol inhaler ipratropium 0.5 mg-albuterol 3 mg 3 ml IH Q6H PRN 07/30/19 10/03/21 (2.5 mg base)/3 mL nebulization soln losartan 50 mg tablet 75 mg PO DAILY 07/30/19 10/03/21 nitroglycerin 0.4 mg sublingual 0.4 mg SL Q5-15M PRN 07/30/19 10/03/21 tablet finasteride 5 mg PO DAILY 08/27/21 10/03/21 montelukast 10 mg PO DAILY 08/27/21 10/03/21 prednisone 5 mg PO DAILY 08/27/21 10/03/21 sertraline 25 mg PO DAILY 08/27/21 10/03/21 tramadol 50 mg PO BID PRN PRN 08/27/21 10/03/21 tamsulosin 0.8 mg PO DAILY #60 cap 09/02/21 10/03/21 L. acidophilus,casei,rhamnosus 1 cap PO DAILY #30 cap 10/06/21 [Bio-K plus] apixaban [Eliquis DVT-PE Treat 30D 5 mg PO ONCE #72 dose pk 10/06/21 Start] apixaban [Eliquis DVT-PE Treat 30D 5 mg PO ONCE #72 dose pk 10/06/21 Start] cefpodoxime 200 mg PO BID #20 tab 10/06/21 doxycycline hyclate 100 mg PO BID #10 cap 10/06/21 furosemide 40 mg PO DAILY #30 tab 10/06/21 guaifenesin [Mucinex] 1,200 mg PO BID #20 tab 10/06/21 pantoprazole [Protonix] 40 mg PO DAILY #30 tab 10/06/21 prednisone 10 mg PO DAILY #56 tab 10/06/21 Previous Rx's Medication Instructions Recorded tamsulosin 0.8 mg PO DAILY #60 cap 09/02/21 L. acidophilus,casei,rhamnosus 1 cap PO DAILY #30 cap 10/06/21 [Bio-K plus] apixaban [Eliquis DVT-PE Treat 30D 5 mg PO ONCE #72 dose pk 10/06/21 Start] apixaban [Eliquis DVT-PE Treat 30D 5 mg PO ONCE #72 dose pk 10/06/21 Start] cefpodoxime 200 mg PO BID #20 tab 10/06/21 doxycycline hyclate 100 mg PO BID #10 cap 10/06/21 furosemide 40 mg PO DAILY #30 tab 10/06/21 guaifenesin [Mucinex] 1,200 mg PO BID #20 tab 10/06/21 pantoprazole [Protonix] 40 mg PO DAILY #30 tab 10/06/21 prednisone 10 mg PO DAILY #56 tab 10/06/21 Allergies Allergy/AdvReac Type Severity Reaction Status Date / Time Sulfa (Sulfonamide AdvReac Intermediate Its been Verified 10/03/21 11:35 Antibiotics) along time cat dander AdvReac Mild Verified 10/03/21 11:35 penicillin V AdvReac Mild nausea Verified 10/03/21 11:35 salicylates AdvReac Mild up set Verified 10/03/21 11:35 stomach General Stated Complaint: SOB BRYCE: 2 Review of Systems All systems reviewed & are unremarkable except as noted in HPI and below Cardiovascular Cardiovascular: Reports dyspnea and Reports dyspnea on exertion Respiratory Respiratory: Reports cough, Denies hemoptysis, Reports dyspnea and Reports dyspnea on exertion PFSH All Active Problems (Updated 10/07/21 @ 00:03 by PEPPER CARRANZA) SOB (shortness of breath) (Acute) Pulmonary emboli (Acute) Bilateral pneumonia (Acute) Sleep apnea (Chronic) PAD (peripheral artery disease) (Chronic) Medical History BPH (benign prostatic hyperplasia) Chronic ethmoidal sinusitis Chronic frontal sinusitis Chronic kidney disease Deviated nasal septum Dilated aortic root E coli bacteremia Fractured rib mid Sept 2019 Kidney stone Lyme disease Nasal septal spur Nasal turbinate hypertrophy Parkinsons pt. states he does not have Pulmonary fat embolism Pyelonephritis due to Escherichia coli Surgical History Hx of colonoscopy Hx of inguinal hernia surgery Hx of total hip arthroplasty right Social History Smoking/Tobacco Use Status: Former Tobacco Use Quit Date: 09/08/81 Smoking risk assessment performed?: Yes Alcohol Intake: current Alcohol Intake frequency: 0-2 drinks per day Alcohol type: beer and hard liquor Drug use: Never Substance use type: does not use Do you feel safe at home: Yes Do you feel safe in your relationship?: Yes Additional Social history: Abby alfarotbcasandra/friend [phone] Exam Narrative Exam Narrative: Constitutional: Alert and oriented x3. Appears stated age. Normal body habitus. Head: Normocephalic, no trauma. Eyes: Pupils PERRL, Red reflex noted, EOM's intact. Eyelids symmetrical without lesions, discharge, or swelling. ENT: Bilateral TM's WNL, External ear normal to inspection, no mastoid TTP, swelling, or erythema, Nasal turbinates WNL, no nasal discharge. Normal dentition, Posterior pharynx WNL, no exudate. Chest: RRR, Normal S1, S2, distal pulses intact. Resp: Lungs scattered expiratory wheezes bilaterally. Patient satting 89% on room air exam. Abdomen: Soft, non-distended, Normoactive bowel sounds all 4 quads. Musculoskeletal: Normal gait, 5/5 strength to all four extremities. 3+ pitting edema noted to the left lower extremity 2+ pitting edema noted to the right l ower extremity. Patient reports that this is chronic for him. Left is usually worse than the right. Skin: Capillary refill less than 2 sec. Neurologic: Cranial nerves II-XII intact. Alert and oriented x 3. Motor: No deficits noted. Sensory: Intact bilaterally all 4 extremities. Reflexes: DTR's intact bilaterally.. Hematologic/Lymphatic: No ecchymosis, no lymphadenopathy. Course Vital Signs Vital signs: Vital Signs Temperature 36.6 C 10/03/21 11:14 Pulse 82 10/03/21 11:14 Respiratory Rate 22 10/03/21 11:14 Blood Pressure 191/79 H 10/03/21 11:14 Pulse Oximetry 89 L 10/03/21 11:14 Temperature 36.6 C 10/03/21 11:14 Temperature Source Temporal Artery Scan 10/03/21 11:14 Pulse 82 10/03/21 11:14 Respiratory Rate 22 10/03/21 11:14 Respiratory Effort 10/03/21 11:28 Blood Pressure 191/79 H 10/03/21 11:14 Blood Pressure Position Supine 10/03/21 11:14 Pulse Oximetry 89 L 10/03/21 11:14 Oxygen Delivery Method Room Air 10/03/21 11:14 Oxygen Flow Rate 0 10/03/21 11:14 Pain Level 0 10/03/21 11:14 PAWSS Have you Been Recently Intoxicated or Drunk Within the Last 30 days?: No Have you Ever Experienced Previous Episodes of Alcohol Withdrawal?: No Have you ever Experienced Withdrawal Seizures?: No Have you ever Experienced Delirium Tremens(DT)s?: No Have you ever undergone Alcohol Rehabilitation Treatment (i.e, inpt ot outpatient treatment programs)?: No Have you ever Experienced Blackouts?: No Have you ever Combined Alcohol with other Downers within the last 90 days?: No Have you ever Combined Alcohol with any other Substance of Abuse during the last 90 days?: No Positive Blood Alcohol level on Presentation? [PCS.BAL]: No Evidence of Increased Autonomic Activity (i.e. HR>120, tremor, sweating, agitation, nausea)?: No Result: 0
[2021-10-03] MEDS: Aspirin 81 MG CHEW 324 MG CH (11:46)
[2021-10-03] MEDS: methylPREDNISolone SUCC 125 MG VIAL IVP (11:47)
[2021-10-03 11:51] LABS: Source Nasopharynx
[2021-10-03 11:51] LABS: Abs Immature Grans 0.05 10^3/uL (0.0-0.06); Absolute Basophil Count 0.02 10^3/uL (0.0-0.2); Absolute Eosinophil Count 0.13 10^3/uL (0.0-0.7); Absolute Lymphocyte Count 0.57 10^3/uL (1.2-3.4); Absolute Neutrophil Count 7.79 10^3/uL (1.2-6.7); Basophils % 0.2; Eosinophils % 1.4; HCT 38.7 % (40.0-50.0); HGB 12.8 g/dL (13.5-17.5); Immature Grans % 0.5; Lymphocytes % 6.1; MCH 33.6 pg (27.0-33.0); MCHC 33.1 % (32.0-36.0); MCV 101.6 fL (80-95); MPV 9.2 fL (8.0-11.0); Monocytes % 8.5; Neutrophils % 83.3; Nucleated RBC 0 %; Platelet Count 168 10^3/uL (130-400); RBC 3.81 10^6/uL (4.36-5.78); RDW 12.7 % (11.8-14.1); RDW-SD 46.9 fL; WBC 9.36 10^3/uL (4.4-10.8)
[2021-10-03] MEDS: Normal Saline Flush 10 ML SYR IVP ×2 (11:51→17:31)
[2021-10-03] MEDS: Albuterol/Ipratropium 3 ML UPD VIAL UPD (12:12)
[2021-10-03 12:13] LABS: ALT 14 U/L (16-63); AST 27 U/L (15-37); Albumin 3.1 g/dL (3.4-5.0); Alkaline Phosphatase 68 U/L (46-116); Anion Gap 7.6 mmol/L (3-11); BUN 20 mg/dL (7-18); Bilirubin, Total 1.5 mg/dL (0.2-1.0); CO2 28.4 mmol/L (21.0-32.0); CREATININE 1.6 mg/dL (0.70-1.30); Calcium 8.7 mg/dL (8.5-10.1); Chloride 103 mmol/L (98-107); Estimated GFR 41.69 (mL/min/1.73m2); Glucose 109 mg/dL (74-106); Magnesium 1.6 mg/dL (1.8-2.4); NT-proBNP 1854 pg/mL (<300); Potassium 4.9 mmol/L (3.5-5.1); Sodium 139 mmol/L (136-145); Troponin I < 50 ng/L (<or=60)
[2021-10-03 12:35] LABS: COVID-19 PCR Negative (Negative); Influenza A PCR Negative (Negative); Influenza B PCR Negative (Negative); RSV PCR Negative (Negative)
[2021-10-03 12:36] LABS: Bilirubin Negative (Negative); Blood Moderate (Negative); Clarity Clear (Clear); Glucose Negative (Negative); Ketones Negative (Negative); Leukocyte Esterase Negative (Negative); Nitrite Negative (Negative)
[2021-10-03] MEDS: Furosemide 20 MG/2 ML VIAL IVP (12:39)
[2021-10-03 12:42] LABS: Bacteria Negative HPF (Negative); C & S Indicated? No; Casts Negative LPF (Negative); Crystals Negative HPF (Negative); Epithelial Cells Few HPF (Negative); Mucus Trace (Negative); WBC Negative HPF (0-5)
--- NOTE | 2021-10-03 12:44 | NUR.NOTE ---
Nursing Note:Pt finished nebulizer tx, states don't feel much better yet currently O2 sat 92% RA, RR 21. Helped pt move up on stretcher and notable SOB on exertion, O2 sat 85% with movement, recovered to 92% with rest, HOB elevated & enc. slow breathing through nose. Pt medicated IV lasix as ordered, urinal w/in reach, cont. to monitor.
--- NOTE | 2021-10-03 13:53 | NUR.NOTE ---
Nursing Note:Pt return from CT scan, monitors re-applied, urine out put since admin of IV lasix 500ml ,cont. to monitor.
--- NOTE | 2021-10-03 13:55 | DI.CT_ITS ---
Exam(s) CT CHEST PE CTA EXAM: CT CHEST PE CTA CLINICAL HISTORY: Chest Pain, SOB. TECHNIQUE: Imaging Protocol: CT angiography of the chest was performed using pulmonary embolus tosin col. Multi planar reconstructions were performed. CONTRAST MATERIAL: Intravenous: Omnipaque 350 Contrast volume: 100 cc COMPARISON: CT CT ABDOMEN PELVIS WO from 08/27/2021 CR XR PORTABLE CHEST AP from 10/03/2021 FINDINGS: CHEST: PULMONARY ARTERIES: There are intraluminal filling defects in right upper lobe pulmonary arteries con sistent with acute pulmonary emboli. Relative sparing of the remainder of the right lung pulmonary a rteries and left pulmonary arteries. LUNGS: There are now extensive bilateral pulmonary infiltrates, most prominent in the upper lung zone s and suspicious for Covid-19 pneumonia. Milder infiltrate also noted in the lower lobes. Trace ple ural fluid bilateral . MEDIASTINUM: No gross hilar nor mediastinal adenopathy visualized thyroid unremarkable. CARDIAC: Cardiomegaly. No pericardial effusion. No significant shift of the interventricular septum at this time. Diameter of the ascending thoracic aorta is enlarged measuring 4.5 cm. There is no d issection. Diameter of the mid aortic arch is 3.1 cm. Diameter of the proximal descending thoracic aorta is 3.9 cm. Diameter of the mid descending thoracic aorta is 3.4 cm. PARTIALLY VISUALIZED UPPERMOST ABDOMEN: No obvious findings OSSEOUS: No significant osseous lesions.. IMPRESSION: 1. Extensive bilateral pulmonary emboli which are suspicious for Covid-19 pneumonia..In addition, the re are acute pulmonary emboli in right upper lobe pulmonary arteries. Remainder of the pulmonary art eries appear spared without obvious intraluminal filling defects at this time. No large pleural effu sions. Trace pleural fluid bilaterally. Called by myself to ER provider RADIATION DOSE DELIVERED: 461.1mGy.cm Total DLP DATA REPOSITORY: All CT scans at this facility are submitted to the National Radiology Data Registry (NRDR) Dose Index Registry (DIR) with the [employer] (A[employer]). RADIATION OPTIMIZATION: All CT scans at this facility use at least one of these dose optimization te chniques: automated exposure control; mA and/or kV adjustment per patient size (includes targeted exa ms where dose is matched to clinical indication); or iterative reconstruction.
[2021-10-03] MEDS: Omnipaque 350 MG/ML 100 ML BTL IJ (13:56)
--- NOTE | 2021-10-03 14:42 | W.PM.HP.N ---
Date of service: 10/03/21 Time of Service: 14:42 Assessment and Plan Assessment and plan (1) COVID-19: Start date: 10/03/21 Start time: 15:42 Status: Suspected Assessment and plan: CT suspicious for Covid-19 pneumonia..In addition, there are acute pulmonary emboli in right upper lobe pulmonary arteries. Remainder of the pulmonary arteries appear spared without obvious intraluminal filling defects at this time. No large pleural effusions. Trace pleural fluid bilaterally. Per Dr. Salas recommendations will reswab for covid tomorrow, on telemetry, continuos pulse ox., Echo, Remdesiver, decadron, antibtx, monitor inflammatory anjel blood cx pending. IS, acappella, Encourage proning (2) Pulmonary emboli: Start date: 10/03/21 Start time: 15:30 Status: Acute Assessment and plan: Found by CT on anticoagulant Obtain u/s bilaterally LE pending results at this time Will obtain echo and monitor patient oxygen status Qualifiers: Acute cor pulmonale presence: unspecified Chronicity: acute Pulmonary embolism type: unspecified Qualified Code(s): I26.99 - Other pulmonary embolism without acute cor pulmonale (3) Bilateral pneumonia: Start date: 10/03/21 Start time: 15:31 Status: Acute Assessment and plan: Treat with ceftriaxone and doxy (4) Acute exacerbation of CHF (congestive heart failure): Start date: 10/03/21 Start time: 15:48 Status: Acute Assessment and plan: Elevatd bnp takes 20 lasix at home Will wt daily, monitor volume status for now lasix IV BID Qualifiers: Heart failure type: unspecified Qualified Code(s): I50.9 - Heart failure, unspecified (5) Polymyalgia rheumatica: Start date: 10/03/21 Start time: 15:47 Status: Acute Assessment and plan: On daily prednisone, will hold while on decradon 6 mg daily for as above (6) Hypothyroidism: Start date: 10/03/21 Start time: 15:47 Status: Acute Assessment and plan: continue thyroid medication Qualifiers: Hypothyroidism type: unspecified Qualified Code(s): E03.9 - Hypothyroidism, unspecified (7) DVT prophylaxis: Start date: 10/03/21 Start time: 15:50 Status: Acute Assessment and plan: as above enoxapain 1mg/kg bid (8) Discharge planning issues: Start date: 10/03/21 Start time: 15:50 Status: Acute Assessment and plan: home when medically ready History of Present Illness History of Present Illness Chief Complaint: PE, CHF Narrative: 81 y.o male with PMH of PAD, CHF, SOB PMR presented to [facility] for c/o intermittent CP x 2 weeks with SOB that gets worse with excretion. He also reports worsening fatigue. He does have hypoxia at 89% t 91. Labs in the ED reveal mag level of 1.6 lactate dehydrogenase of 300, BNP of 1854, procal pending, most concerning is his CT scan Extensive bilateral pulmonary emboli which are suspicious for Covid-19 pneumonia..In addition, there are acute pulmonary emboli in right upper lobe pulmonary arteries. Remainder of the pulmonary arteries appear spared without obvious intraluminal filling defects at this time. No large pleural effusions. Trace pleural fluid bilaterally. He was shown to have pulmonary emboli with possible COVID 19 pneumonia. At this tiime he tested negative for COVID however he will be made a PUI and retested in the AM. He has been asked to be admitted to hospitalist group for further management. He will be started on ceftriaxone and doxy for possible pneumonia. Will retest in am. Remdesiver and decadron started on recommendation of Dr. Salas. IS and acapella given. He also appears to be in CHF. Bilateral leg swelling, elevated BNP, will give lasix BID, daily wts. monitor volume status. U/s of bilateral lower extremities. Echo to r/o right heart strain and cardiac issues especially r/t possible COVID. Blood cx pending. Palliative care consult as patient is a full code. Review of Systems All systems reviewed & are unremarkable except as noted in HPI and below PFSH All Active Problems (Updated 10/03/21 @ 15:48 by Astrid Orourke, NHUNG) Acute exacerbation of CHF (congestive heart failure) (Acute) SOB (shortness of breath) (Acute) Hypothyroidism (Acute) Polymyalgia rheumatica (Acute) pt. reports he has this not parkinsons Discharge planning issues (Acute) DVT prophylaxis (Acute) Pulmonary emboli (Acute) Bilateral pneumonia (Acute) Sleep apnea (Chronic) PAD (peripheral artery disease) (Chronic) Medical History BPH (benign prostatic hyperplasia) Chronic ethmoidal sinusitis Chronic frontal sinusitis Chronic kidney disease Deviated nasal septum Dilated aortic root E coli bacteremia Fractured rib mid Sept 2019 Kidney stone Lyme disease Nasal septal spur Nasal turbinate hypertrophy Parkinsons pt. states he does not have Pulmonary fat embolism Pyelonephritis due to Escherichia coli Surgical History Hx of colonoscopy Hx of inguinal hernia surgery Hx of total hip arthroplasty right Social History Smoking/Tobacco Use Status: Former Tobacco Use Quit Date: 09/08/81 Smoking risk assessment performed?: Yes Alcohol Intake: current Alcohol Intake frequency: 0-2 drinks per day Alcohol type: beer and hard liquor Drug use: Never Substance use type: does not use Do you feel safe at home: Yes Do you feel safe in your relationship?: Yes Additional Social history: Abby alfarotbor/friend [phone] Meds Allergies and Home Medications Allergies Allergy/AdvReac Type Severity Reaction Status Date / Time Sulfa (Sulfonamide AdvReac Intermediate Its been Verified 10/03/21 11:35 Antibiotics) along time cat dander AdvReac Mild Verified 10/03/21 11:35 penicillin V AdvReac Mild nausea Verified 10/03/21 11:35 salicylates AdvReac Mild up set Verified 10/03/21 11:35 stomach Home Medications Medication Instructions Recorded Confirmed Type levothyroxine 75 mcg PO DAILY 12/03/16 10/03/21 History ropinirole 2 mg PO HS 12/03/16 10/03/21 History ibuprofen 400 mg PO PRN PRN 05/02/19 10/03/21 History acetaminophen [Tylenol Extra 1,000 mg PO Q4H PRN 06/30/19 10/03/21 History Strength] albuterol sulfate 90 mcg/actuation 2 puff IH Q6H PRN 07/30/19 10/03/21 History aerosol inhaler furosemide 20 mg tablet 20 mg PO DAILY PRN tab 07/30/19 10/03/21 History ipratropium 0.5 mg-albuterol 3 mg 3 ml IH Q6H PRN 07/30/19 10/03/21 History (2.5 mg base)/3 mL nebulization soln losartan 50 mg tablet 75 mg PO DAILY 07/30/19 10/03/21 History nitroglycerin 0.4 mg sublingual 0.4 mg SL Q5-15M PRN 07/30/19 10/03/21 History tablet finasteride 5 mg PO DAILY 08/27/21 10/03/21 History montelukast 10 mg PO DAILY 08/27/21 10/03/21 History prednisone 5 mg PO DAILY 08/27/21 10/03/21 History sertraline 25 mg PO DAILY 08/27/21 10/03/21 History tramadol 50 mg PO BID PRN PRN 08/27/21 10/03/21 History acidophilus-pectin, citrus See Rx Instructions .ROUTE 09/02/21 10/03/21 Rx .COMPLEX #30 tab tamsulosin 0.8 mg PO DAILY #60 cap 09/02/21 10/03/21 Rx Exam Narrative Exam Narrative: General: no acute distress Nutritional Appearance: well nourished [facility] Head: normocephalic Ears: external ears normal and no periauricular adenopathy General nose exam: nasal mucous membranes and turbinates normal Face and sinus: sinuses nontender Mouth: oropharynx normal and moist mucous membranes Teeth and gingiva: dentition normal General: appearance normal, both eyes and all related structures Pupils: PERRL Neck: normal visual inspection and no lymphadenopathy Chest: normal inspection of the chest Resp Effort & Inspection: normal respiratory effort Auscultation: clear to auscultation bilaterally, rales bilaterally at the base, no rhonchi and no wheezes Cardio Rate: regular rate Rhythm: regular rhythm Heart Sounds: S1 normal, S2 normal and no murmurs Pulses: radial pulses present bilaterally GI Inspection: normal to inspection Palpation: soft Skin General skin exam: no rashes or lesions noted Neuro General: patient alert, patient awake and patient oriented x3 Extrem General: no clubbing, cyanosis or edema Psych Mental Status: mental status grossly normal Affect: normal affect Attitude: cooperative Results Labs Result diagrams: 10/03/21 11:40 10/03/21 11:40 Labs: Laboratory Results - last 24 hr 10/03/21 10/03/21 10/03/21 11:15 11:40 11:40 WBC 9.36 RBC 3.81 L Hgb 12.8 L Hct 38.7 L MCV 101.6 H MCH 33.6 H MCHC 33.1 RDW 12.7 Plt Count 168 MPV 9.2 Immature Gran % 0.5 Neutrophils % 83.3 Lymphocytes % 6.1 Monocytes % 8.5 Eosinophils % 1.4 Basophils % 0.2 Nucleated RBC % 0 Absolute Neutrophils 7.79 H Absolute Lymphocytes 0.57 L Absolute Monocytes 0.80 Absolute Eosinophils 0.13 Absolute Basophils 0.02 Sodium 139 Potassium 4.9 Chloride 103 Carbon Dioxide 28.4 Anion Gap 7.6 BUN 20 H Creatinine 1.6 H Estimated GFR/1.73 m2 41.69 Glucose 109 H Calcium 8.7 Magnesium 1.6 L Total Bilirubin 1.5 H AST 27 ALT 14 L Alkaline Phosphatase 68 Troponin I < 50 NT-Pro-B Natriuret Pep 1854 H Total Protein 7.0 Albumin 3.1 L Urine Color Urine Clarity Urine pH Ur Specific [place] Urine Protein Urine Ketones Urine Blood Urine Nitrite Urine Bilirubin Urine Urobilinogen Ur Leukocyte Esterase Urine RBC Urine WBC Ur Epithelial Cells Urine Crystals Urine Bacteria Urine Casts Urine Mucus Ur Culture Indicated? Urine Glucose COVID-19 Source Cancelled SARS-CoV-2 (PCR) Cancelled Influenza Type A (PCR) Influenza Type B (PCR) RSV (PCR) 10/03/21 10/03/21 11:45 12:10 WBC RBC Hgb Hct MCV MCH MCHC RDW Plt Count MPV Immature Gran % Neutrophils % Lymphocytes % Monocytes % Eosinophils % Basophils % Nucleated RBC % Absolute Neutrophils Absolute Lymphocytes Absolute Monocytes Absolute Eosinophils Absolute Basophils Sodium Potassium Chloride Carbon Dioxide Anion Gap BUN Creatinine Estimated GFR/1.73 m2 Glucose Calcium Magnesium Total Bilirubin AST ALT Alkaline Phosphatase Troponin I NT-Pro-B Natriuret Pep Total Protein Albumin Urine Color Yellow Urine Clarity Clear Urine pH 6.0 Ur Specific [place] 1.020 Urine Protein Negative Urine Ketones Negative Urine Blood Moderate H Urine Nitrite Negative Urine Bilirubin Negative Urine Urobilinogen 1.0 H Ur Leukocyte Esterase Negative Urine RBC 10-20 H Urine WBC Negative Ur Epithelial Cells Few Urine Crystals Negative Urine Bacteria Negative Urine Casts Negative Urine Mucus Trace Ur Culture Indicated? No Urine Glucose Negative COVID-19 Source Nasopharynx SARS-CoV-2 (PCR) Negative Influenza Type A (PCR) Negative Influenza Type B (PCR) Negative RSV (PCR) Negative Last Vital Signs Temp 36.6 C 10/03/21 11:14 Pulse 90 10/03/21 14:31 Resp 19 10/03/21 14:31 BP 148/77 H 10/03/21 14:31 Pulse Ox 98 10/03/21 14:39 PAWSS Have you Been Recently Intoxicated or Drunk Within the Last 30 days?: No Have you Ever Experienced Previous Episodes of Alcohol Withdrawal?: No Have you ever Experienced Withdrawal Seizures?: No Have you ever Experienced Delirium Tremens(DT)s?: No Have you ever undergone Alcohol Rehabilitation Treatment (i.e, inpt ot outpatient treatment programs)?: No Have you ever Experienced Blackouts?: No Have you ever Combined Alcohol with other Downers within the last 90 days?: No Have you ever Combined Alcohol with any other Substance of Abuse during the last 90 days?: No Positive Blood Alcohol level on Presentation? [PCS.BAL]: No Evidence of Increased Autonomic Activity (i.e. HR>120, tremor, sweating, agitation, nausea)?: No Result: 0
--- NOTE | 2021-10-03 14:58 | PUCON_ITS ---
General Date Of Service Date of service: 10/03/21 Time of Service: 15:02 Reason for Consult: Shortness of breath, abnormal chest CT Assessment and Plan Assessment and plan (1) Bilateral pneumonia: Status: Acute (2) Pulmonary emboli: Status: Chronic (3) Polymyalgia rheumatica: Status: Acute Assessment and plan: This is an 81 yo man with polymyalgia rheumatica on 5mg of prednisone and sinus issues who is here for shortess of breath found to be in volume overload and with a bilateral multi-lobar pneumonia. His chest CT was also significant for small pulmonary emboli in the RUL. His chest CT is certainly more consistent with an atypical pneumonia (including COVID). I would treat him with CAP coverage and also keep him on precautions for now. I recommend retesting him tomorrow morning (consider a throat swab as this may be more sensitive for omicron). If this test is negative then the likelihood of COVID is much lower. He also has not had any other prodrome to COVID other than shortness of breath (no increased sinus or URI symptoms). I would hold on remdesivir treatment unless he has a positive test as he is marginally needed any oxygen. I would however treat him with Decadron in place of the prednisone. The PE is small, but he should have an echo and LE Duplex as part of this work up. Given his renal function, I would favor hepain drip for now instead of Lovenox. Bilateral Pneumonia - recommend Decadron 10mg daily in place of prednisone 5mg - would hold off on giving remdesivir until he has a positive COVID test - recommend retesting for COVID tomorrow - would recommend a throat swab as it may be more sensitive with omicron - recommend ceftriaxone 1g and azithromycin 500mg - recommend sputum sample if able for culture RUL PE - recommend heparin infusion - recommend LE Duplex and echo - can switch him to DOAC when less acutely ill Hypoxic respiratory failure - albuterol prn - continue Singulair - IS and Acapella - O2 as needed for sats > 90% - diuresis History of Present Illness Narrative: This is a 81 yo man with polymyalgia rheumatica (on 5mg prednisone) and sinus issues who presented to the ED today for shortness of breath. He states he is on nebulizers, albuterol HFA and Singulair for his sinus issues. He says he always has alot of post nasal drip resulting in cough and sputum production. He does not tell me today that this is any different from his baseline. He does he feels a chest pressure and more full consistent with mucus chest congestion. He had a chest CT performed in the Ed that is certainly concerning for COVID given its appearance. It is less consistent with inflammation and edema given its density. He does not clinically endorse any other worrisome symptoms of COVID however. He is not hypoxic at rest, but significantly desaturates with any movement (even adjusting in bed). He is a former smoker of 40years (quit in 1981). On his scan I do not see significant emphysema, although his infiltrates certainly can obscure this. His COVID PCR returned negative. Review of Systems All systems reviewed & are unremarkable except as noted in HPI and below PFSH All Active Problems (Updated 10/03/21 @ 15:15 by Astrid Orourke NP) COVID-19 (Acute) Acute exacerbation of CHF (congestive heart failure) (Acute) SOB (shortness of breath) (Acute) Hypothyroidism (Acute) Polymyalgia rheumatica (Acute) pt. reports he has this not parkinsons Discharge planning issues (Acute) DVT prophylaxis (Acute) Pulmonary emboli (Chronic) Bilateral pneumonia (Acute) Sleep apnea (Acute) PAD (peripheral artery disease) (Chronic) Medical History (Updated 10/03/21 @ 15:15 by Astrid Orourke NP) BPH (benign prostatic hyperplasia) Chronic ethmoidal sinusitis Chronic frontal sinusitis Chronic kidney disease Deviated nasal septum Dilated aortic root E coli bacteremia Fractured rib mid Sept 2019 Kidney stone Lyme disease Nasal septal spur Nasal turbinate hypertrophy Parkinsons pt. states he does not have Pulmonary fat embolism Pyelonephritis due to Escherichia coli Surgical History Hx of colonoscopy Hx of inguinal hernia surgery Hx of total hip arthroplasty right Social History Smoking/Tobacco Use Status: Former Tobacco Use Quit Date: 09/08/81 Smoking risk assessment performed?: Yes Alcohol Intake: current Alcohol Intake frequency: 0-2 drinks per day Alcohol type: beer and hard liquor Drug use: Never Substance use type: does not use Do you feel safe at home: Yes Do you feel safe in your relationship?: Yes Additional Social history: Abby alfarotbor/friend [phone] Visit Medication and Allergies Active Medications Generic Name Dose Route Start Last Admin Trade Name Freq PRN Reason Stop Dose Admin Acetaminophen 0 mg 10/03/21 14:20 Acetaminophen 325 Mg Tab PO Q4H PRN PRN Al Hydrox/Mg Hydrox/Simethicone 30 ml 10/03/21 14:20 Mylanta Suspension 30 Ml Cup PO Q2H PRN PRN Albuterol Sulfate 2 puff 10/03/21 14:45 Albuterol Hfa 8 Gm 60 Puff Inh IH Q4H PRN PRN Albuterol/Ipratropium 3 ml 10/03/21 14:44 Albuterol/Ipratropium 3 Ml Upd Vial IH Q6H PRN Device 1 each 10/03/21 15:00 Inhaler, Assist Device MC DIRECTED DEVENDRA Dimethicone/Zinc Oxide 0 gm 10/03/21 14:20 Christina Protect Cream 142 Gm Tube TP PRN PRN Docusate Sodium 100 mg 10/03/21 14:20 Docusate Sodium 100 Mg Cap PO TID PRN PRN Enoxaparin Sodium 100 mg 10/04/21 02:00 Enoxaparin 40 Mg/0.4 Ml Syr SC Q12H DEVENDRA Finasteride 5 mg 10/04/21 08:30 Finasteride 5 Mg Tab PO DAILY DEVENDRA Furosemide 40 mg 10/03/21 16:00 Furosemide 40 Mg/4 Ml Vial IVP BID@0800,1600 DEVENDRA Sodium Chloride 500 mls @ 0 mls/hr 10/03/21 14:20 Saline 500ml Bag IV PRN PRN As Directed Magnesium Sulfate 4 gm in 100 mls @ 25 mls/hr 10/03/21 14:35 IVPB 10/03/21 18:34 NOW ONE IV Miscellaneous Supplies 1 each 10/03/21 14:30 Iv Access IV DIRECTED DEVENDRA Lactobacillus Acidophilus/Casei 1 cap 10/04/21 08:30 L. Acidophilus, Casei, Rhamnosus Cap PO DAILY DEVENDRA Levothyroxine Sodium 75 mcg 10/04/21 08:30 Levothyroxine 75 Mcg Tab PO DAILY DEVENDRA Losartan Potassium 75 mg 10/04/21 08:30 Losartan 50 Mg Tab PO DAILY DEVENDRA Magnesium Hydroxide 30 ml 10/03/21 14:20 Milk Of Magnesia 30 Ml Cup PO DAILY PRN PRN Montelukast Sodium 10 mg 10/04/21 08:30 Montelukast 10 Mg Tab PO DAILY [facility] Non-Formulary Medication 2 mg 10/03/21 22:00 Ropinirole PO HS [facility] Prednisone 5 mg 10/04/21 08:30 Prednisone 5 Mg Tab PO DAILY DEVENDRA Sertraline HCl 25 mg 10/04/21 08:30 Sertraline 25 Mg Tab PO DAILY [facility] Sodium Chloride 0 ml 10/03/21 14:20 Normal Saline Flush 10 Ml Syr IVP PRN PRN Tamsulosin HCl 0.8 mg 10/04/21 08:30 Tamsulosin 0.4 Mg Capcr PO DAILY DEVENDRA Tramadol HCl 50 mg 10/03/21 14:44 Tramadol 50 Mg Tab PO BID PRN PRN Allergies Sulfa (Sulfonamide Antibiotics) Adverse Reaction (Intermediate, Verified 10/03/21 11:35) Its been along time cat dander Adverse Reaction (Mild, Verified 10/03/21 11:35) penicillin V Adverse Reaction (Mild, Verified 10/03/21 11:35) nausea salicylates Adverse Reaction (Mild, Verified 10/03/21 11:35) up set stomach Exam Const General: no acute distress Nutritional Appearance: well nourished [facility] Head: normocephalic Ears: external ears normal and no periauricular adenopathy General nose exam: nasal mucous membranes and turbinates normal Face and sinus: sinuses nontender Mouth: oropharynx normal and moist mucous membranes Teeth and gingiva: dentition normal Eyes General: appearance normal, both eyes and all related structures Pupils: PERRL Neck Neck: normal visual inspection and no lymphadenopathy Chest Chest: normal inspection of the chest Resp Effort & Inspection: normal respiratory effort Auscultation: clear to auscultation bilaterally, rales bilaterally at the base, no rhonchi and no wheezes Cardio Rate: regular rate Rhythm: regular rhythm Heart Sounds: S1 normal, S2 normal and no murmurs Pulses: radial pulses present bilaterally GI Inspection: normal to inspection Palpation: soft Skin General skin exam: no rashes or lesions noted Neuro General: patient alert, patient awake and patient oriented x3 Extrem General: no clubbing, no cyanosis and edema Laterality: bilateral (L>R) Psych Mental Status: mental status grossly normal Affect: normal affect Attitude: cooperative Results Last Vital Signs Temp 36.6 C 10/03/21 11:14 Pulse 90 10/03/21 14:31 Resp 19 10/03/21 14:31 BP 148/77 H 10/03/21 14:31 Pulse Ox 98 10/03/21 14:39 Labs Result diagrams: 10/03/21 11:40 10/03/21 11:40 Labs: Laboratory Results - last 24 hr 10/03/21 10/03/21 10/03/21 11:15 11:40 11:40 WBC 9.36 RBC 3.81 L Hgb 12.8 L Hct 38.7 L MCV 101.6 H MCH 33.6 H MCHC 33.1 RDW 12.7 Plt Count 168 MPV 9.2 Immature Gran % 0.5 Neutrophils % 83.3 Lymphocytes % 6.1 Monocytes % 8.5 Eosinophils % 1.4 Basophils % 0.2 Nucleated RBC % 0 Absolute Neutrophils 7.79 H Absolute Lymphocytes 0.57 L Absolute Monocytes 0.80 Absolute Eosinophils 0.13 Absolute Basophils 0.02 Sodium 139 Potassium 4.9 Chloride 103 Carbon Dioxide 28.4 Anion Gap 7.6 BUN 20 H Creatinine 1.6 H Estimated GFR/1.73 m2 41.69 Glucose 109 H Calcium 8.7 Magnesium 1.6 L Total Bilirubin 1.5 H AST 27 ALT 14 L Alkaline Phosphatase 68 Troponin I < 50 NT-Pro-B Natriuret Pep 1854 H Total Protein 7.0 Albumin 3.1 L Urine Color Urine Clarity Urine pH Ur Specific [place] Urine Protein Urine Ketones Urine Blood Urine Nitrite Urine Bilirubin Urine Urobilinogen Ur Leukocyte Esterase Urine RBC Urine WBC Ur Epithelial Cells Urine Crystals Urine Bacteria Urine Casts Urine Mucus Ur Culture Indicated? Urine Glucose COVID-19 Source Cancelled SARS-CoV-2 (PCR) Cancelled Influenza Type A (PCR) Influenza Type B (PCR) RSV (PCR) 10/03/21 10/03/21 11:45 12:10 WBC RBC Hgb Hct MCV MCH MCHC RDW Plt Count MPV Immature Gran % Neutrophils % Lymphocytes % Monocytes % Eosinophils % Basophils % Nucleated RBC % Absolute Neutrophils Absolute Lymphocytes Absolute Monocytes Absolute Eosinophils Absolute Basophils Sodium Potassium Chloride Carbon Dioxide Anion Gap BUN Creatinine Estimated GFR/1.73 m2 Glucose Calcium Magnesium Total Bilirubin AST ALT Alkaline Phosphatase Troponin I NT-Pro-B Natriuret Pep Total Protein Albumin Urine Color Yellow Urine Clarity Clear Urine pH 6.0 Ur Specific [place] 1.020 Urine Protein Negative Urine Ketones Negative Urine Blood Moderate H Urine Nitrite Negative Urine Bilirubin Negative Urine Urobilinogen 1.0 H Ur Leukocyte Esterase Negative Urine RBC 10-20 H Urine WBC Negative Ur Epithelial Cells Few Urine Crystals Negative Urine Bacteria Negative Urine Casts Negative Urine Mucus Trace Ur Culture Indicated? No Urine Glucose Negative COVID-19 Source Nasopharynx SARS-CoV-2 (PCR) Negative Influenza Type A (PCR) Negative Influenza Type B (PCR) Negative RSV (PCR) Negative
[2021-10-03 15:10] LABS: LDH 300 U/L (85-227)
[2021-10-03 15:14] LABS: Troponin I 59 ng/L (<or=60)
[2021-10-03 15:32] LABS: Procalcitonin 0.2 ng/mL
[2021-10-03] MEDS: MAGNESIUM SULFATE 4 GM/100 ML BAG IVPB (15:55)
[2021-10-03] MEDS: Enoxaparin 100 MG/ML SYR SC (15:57)
--- NOTE | 2021-10-03 15:58 | NUR.NOTE ---
Nursing Note:PT admitted to M/S Rm 218, urinated additional 500ml, total 1000ml since admin. of lasix. Ordered IV MAgnesium 4gm IV pulled from ER pyxus and given to recieving M/S RN d/t not having pump available at time of transport to administer.
[2021-10-03 16:32] LABS: Lab Add On Test DONE
[2021-10-03 16:59] LABS: Ferritin 255 ng/mL (26-388)
[2021-10-03 17:09] LABS: C-Reactive Protein 19.24 mg/dL (0.0-0.3)
[2021-10-03] MEDS: Furosemide 40 MG/4 ML VIAL IVP (17:31)
[2021-10-03] MEDS: REMDESIVIR 200 MG in Normal Saline 250 ML 250 MG IVPB (20:04)
[2021-10-03] MEDS: cefTRIAXone 1 GM/50 ML BAG IVPB (22:01)
[2021-10-03] MEDS: rOPINIRole 1 MG TAB 2 MG PO (23:00)
[2021-10-04] VITALS (14 sets, daily range): BP systolic 111–150; BP diastolic 54–102; PULSE 59–85; RESP 1–20; TEMP 35.6–36.1; O2SAT 92–98
[2021-10-04] MEDS: DOXYCYCLINE 100 MG in Normal Saline 100 ML IVPB ×2 (00:53→13:02)
[2021-10-04] MEDS: Enoxaparin 100 MG/ML SYR SC ×2 (05:29→15:05)
[2021-10-04] MEDS: Levothyroxine 75 MCG TAB PO (05:29)
[2021-10-04 07:01] LABS: Abs Immature Grans 0.04 10^3/uL (0.0-0.06); Absolute Basophil Count 0.01 10^3/uL (0.0-0.2); Absolute Eosinophil Count 0.01 10^3/uL (0.0-0.7); Absolute Lymphocyte Count 0.48 10^3/uL (1.2-3.4); Absolute Monocyte Count 0.34 10^3/uL (0.1-0.8); Absolute Neutrophil Count 8.17 10^3/uL (1.2-6.7); Basophils % 0.1; Eosinophils % 0.1; HCT 36.5 % (40.0-50.0); HGB 12.2 g/dL (13.5-17.5); Immature Grans % 0.4; Lymphocytes % 5.3; MCH 33.6 pg (27.0-33.0); MCHC 33.4 % (32.0-36.0); MCV 100.6 fL (80-95); MPV 9.6 fL (8.0-11.0); Monocytes % 3.8; Neutrophils % 90.3; Nucleated RBC 0 %; Platelet Count 176 10^3/uL (130-400); RBC 3.63 10^6/uL (4.36-5.78); RDW 12.3 % (11.8-14.1); RDW-SD 45.6 fL; WBC 9.05 10^3/uL (4.4-10.8)
[2021-10-04 07:20] LABS: INR 1.2 (0.9-1.1); Prothrombin Time 11.8 sec (9.3-11.0)
[2021-10-04 07:35] LABS: Hemoglobin A1C 5.8 % (<5.7)
[2021-10-04 07:37] LABS: ALT 15 U/L (16-63); AST 14 U/L (15-37); Albumin 2.8 g/dL (3.4-5.0); Alkaline Phosphatase 62 U/L (46-116); Anion Gap 10.1 mmol/L (3-11); BUN 26 mg/dL (7-18); Bilirubin, Direct 0.2 mg/dL (0.0-0.2); Bilirubin, Total 0.7 mg/dL (0.2-1.0); C-Reactive Protein 22.99 mg/dL (0.0-0.3); CO2 27.9 mmol/L (21.0-32.0); CREATININE 1.8 mg/dL (0.70-1.30); Calcium 8.6 mg/dL (8.5-10.1); Chloride 102 mmol/L (98-107); Estimated GFR 36.39 (mL/min/1.73m2); Glucose 151 mg/dL (74-106); Magnesium 2.6 mg/dL (1.8-2.4); PHOSPHORUS 3.6 mg/dL (2.6-4.7); Sodium 140 mmol/L (136-145); Total Protein 6.5 g/dL (6.4-8.2)
[2021-10-04 07:52] LABS: Vitamin D 25 Total 34.6 ng/mL (30-100)
[2021-10-04 08:07] LABS: Ferritin 277 ng/mL (26-388)
[2021-10-04] MEDS: Albuterol/Ipratropium 3 ML UPD VIAL IH (08:48)
[2021-10-04 09:00] LABS: D-Dimer 5279 ng/mlFEU (<500)
[2021-10-04] MEDS: Losartan 50 MG TAB 75 MG PO (09:49)
[2021-10-04] MEDS: Tamsulosin 0.4 MG CAPCR 0.8 MG PO (09:49)
[2021-10-04] MEDS: Dexamethasone 4 MG TAB 6 MG PO (09:50)
[2021-10-04] MEDS: Montelukast 10 MG TAB PO (09:50)
[2021-10-04] MEDS: Finasteride 5 MG TAB PO (09:50)
[2021-10-04] MEDS: Sertraline 25 MG TAB PO (09:50)
[2021-10-04] MEDS: Normal Saline Flush 10 ML SYR IVP ×2 (09:52→22:15)
--- NOTE | 2021-10-04 10:01 | W.PM.PROGNOT ---
Date of Service Date of service: 10/04/21 Time of Service: 08:15 Assessment and Plan Assessment and plan (1) COVID-19: Start date: 10/04/21 Start time: 08:15 Status: Suspected Assessment and plan: CT suspicious for Covid-19 pneumonia..In addition, there are acute pulmonary emboli in right upper lobe pulmonary arteries. Remainder of the pulmonary arteries appear spared without obvious intraluminal filling defects at this time. No large pleural effusions. Trace pleural fluid bilaterally. Continue remdesiver reswab for covid today, on telemetry, continuos pulse ox., Echo results pending. , Remdesiver, decadron, antibtx, monitor inflammatory anjel blood cx pending. IS, acappella, Encourage proning (2) Pulmonary emboli: Start date: 10/04/21 Start time: 08:15 Status: Acute Assessment and plan: Found by CT on anticoagulant U/s negative for DVT (3) Bilateral pneumonia: Start date: 10/04/21 Start time: 08:15 Status: Acute Assessment and plan: ceftriaxone and doxy day 2 (4) Acute exacerbation of CHF (congestive heart failure): Start date: 10/04/21 Start time: 08:15 Status: Acute Assessment and plan: Legs have no edema. No jvd. he states his legs feel much better. Will change IVP lasix back to home dosing of oral and monitor volume status Will wt daily, monitor volume status for now lasix IV BID Qualifiers: Heart failure type: unspecified Qualified Code(s): I50.9 - Heart failure, unspecified (5) Polymyalgia rheumatica: Start date: 10/04/21 Start time: 08:15 Status: Acute Assessment and plan: take prednisone daily, will hold while on decradon 6 mg daily for as above (6) Hypothyroidism: Start date: 10/04/21 Start time: 08:15 Status: Acute Assessment and plan: continue thyroid medication Qualifiers: Hypothyroidism type: unspecified Qualified Code(s): E03.9 - Hypothyroidism, unspecified (7) DVT prophylaxis: Start date: 10/04/21 Start time: 08:15 Status: Acute Assessment and plan: as above enoxapain 1mg/kg bid (8) Discharge planning issues: Start date: 10/04/21 Start time: 08:15 Status: Acute Assessment and plan: home when medically ready discussed with Dr. Nye Subjective Subjective Patient reports: feels better Interval history since last seen: Patient sitting up in chair. Feeling better, he does c/o some SOB. His leg swelling has improved. he is wearing oxygen. he denies CP. Exam Narrative Exam Narrative: General: no acute distress Nutritional Appearance: well nourished [facility] Head: normocephalic Ears: external ears normal and no periauricular adenopathy General nose exam: nasal mucous membranes and turbinates normal Face and sinus: sinuses nontender Mouth: oropharynx normal and moist mucous membranes Teeth and gingiva: dentition normal General: appearance normal, both eyes and all related structures Pupils: PERRL Neck: normal visual inspection and no lymphadenopathy Chest: normal inspection of the chest Resp Effort & Inspection: normal respiratory effort Auscultation: Lungs with crackles and inspirationy wheezing. Cardio Rate: regular rate Rhythm: regular rhythm Heart Sounds: S1 normal, S2 normal and no murmurs Pulses: radial pulses present bilaterally Inspection: normal to inspection Palpation: soft Skin General skin exam: no rashes or lesions noted Neuro General: patient alert, patient awake and patient oriented x3 Extrem, rubor and venous stasis from having edema, some edema to left side normal for him he states. Psych Mental Status: mental status grossly normal Affect: normal affect Attitude: cooperative Objective Last Vital Signs Temp 35.6 C L 10/04/21 07:49 Pulse 61 10/04/21 07:49 Resp 14 10/04/21 08:48 BP 138/95 H 10/04/21 07:49 Pulse Ox 93 10/04/21 08:48 Laboratory Results - last 24 hr 10/03/21 10/03/21 10/03/21 11:15 11:40 11:40 WBC 9.36 RBC 3.81 L Hgb 12.8 L Hct 38.7 L MCV 101.6 H MCH 33.6 H MCHC 33.1 RDW 12.7 Plt Count 168 MPV 9.2 Immature Gran % 0.5 Neutrophils % 83.3 Lymphocytes % 6.1 Monocytes % 8.5 Eosinophils % 1.4 Basophils % 0.2 Nucleated RBC % 0 Absolute Neutrophils 7.79 H Absolute Lymphocytes 0.57 L Absolute Monocytes 0.80 Absolute Eosinophils 0.13 Absolute Basophils 0.02 PT INR D-Dimer Sodium 139 Potassium 4.9 Chloride 103 Carbon Dioxide 28.4 Anion Gap 7.6 BUN 20 H Creatinine 1.6 H Estimated GFR/1.73 m2 41.69 Glucose 109 H Hemoglobin A1c Calcium 8.7 Phosphorus Magnesium 1.6 L Ferritin Total Bilirubin 1.5 H Conjugated Bilirubin AST 27 ALT 14 L Alkaline Phosphatase 68 Lactate Dehydrogenase Troponin I < 50 C-Reactive Protein NT-Pro-B Natriuret Pep 1854 H Total Protein 7.0 Albumin 3.1 L 25-OH Vitamin D Total Procalcitonin Urine Color Urine Clarity Urine pH Ur Specific [place] Urine Protein Urine Ketones Urine Blood Urine Nitrite Urine Bilirubin Urine Urobilinogen Ur Leukocyte Esterase Urine RBC Urine WBC Ur Epithelial Cells Urine Crystals Urine Bacteria Urine Casts Urine Mucus Ur Culture Indicated? Urine Glucose COVID-19 Source Cancelled SARS-CoV-2 (PCR) Cancelled Influenza Type A (PCR) Influenza Type B (PCR) RSV (PCR) Add-On Test Request 10/03/21 10/03/21 10/03/21 11:40 11:40 11:45 WBC RBC Hgb Hct MCV MCH MCHC RDW Plt Count MPV Immature Gran % Neutrophils % Lymphocytes % Monocytes % Eosinophils % Basophils % Nucleated RBC % Absolute Neutrophils Absolute Lymphocytes Absolute Monocytes Absolute Eosinophils Absolute Basophils PT INR D-Dimer Sodium Potassium Chloride Carbon Dioxide Anion Gap BUN Creatinine Estimated GFR/1.73 m2 Glucose Hemoglobin A1c Calcium Phosphorus Magnesium Ferritin 255 Total Bilirubin Conjugated Bilirubin AST ALT Alkaline Phosphatase Lactate Dehydrogenase Troponin I C-Reactive Protein 19.24 H NT-Pro-B Natriuret Pep Total Protein Albumin 25-OH Vitamin D Total Procalcitonin Urine Color Urine Clarity Urine pH Ur Specific [place] Urine Protein Urine Ketones Urine Blood Urine Nitrite Urine Bilirubin Urine Urobilinogen Ur Leukocyte Esterase Urine RBC Urine WBC Ur Epithelial Cells Urine Crystals Urine Bacteria Urine Casts Urine Mucus Ur Culture Indicated? Urine Glucose COVID-19 Source Nasopharynx SARS-CoV-2 (PCR) Negative Influenza Type A (PCR) Negative Influenza Type B (PCR) Negative RSV (PCR) Negative Add-On Test Request DONE 10/03/21 10/03/21 10/03/21 12:10 14:35 14:35 WBC RBC Hgb Hct MCV MCH MCHC RDW Plt Count MPV Immature Gran % Neutrophils % Lymphocytes % Monocytes % Eosinophils % Basophils % Nucleated RBC % Absolute Neutrophils Absolute Lymphocytes Absolute Monocytes Absolute Eosinophils Absolute Basophils PT INR D-Dimer Sodium Potassium Chloride Carbon Dioxide Anion Gap BUN Creatinine Estimated GFR/1.73 m2 Glucose Hemoglobin A1c Calcium Phosphorus Magnesium Ferritin Total Bilirubin Conjugated Bilirubin AST ALT Alkaline Phosphatase Lactate Dehydrogenase 300 H Troponin I 59 C-Reactive Protein NT-Pro-B Natriuret Pep Total Protein Albumin 25-OH Vitamin D Total Procalcitonin Urine Color Yellow Urine Clarity Clear Urine pH 6.0 Ur Specific [place] 1.020 Urine Protein Negative Urine Ketones Negative Urine Blood Moderate H Urine Nitrite Negative Urine Bilirubin Negative Urine Urobilinogen 1.0 H Ur Leukocyte Esterase Negative Urine RBC 10-20 H Urine WBC Negative Ur Epithelial Cells Few Urine Crystals Negative Urine Bacteria Negative Urine Casts Negative Urine Mucus Trace Ur Culture Indicated? No Urine Glucose Negative COVID-19 Source SARS-CoV-2 (PCR) Influenza Type A (PCR) Influenza Type B (PCR) RSV (PCR) Add-On Test Request 10/03/21 10/04/21 10/04/21 14:35 06:20 06:20 WBC RBC Hgb Hct MCV MCH MCHC RDW Plt Count MPV Immature Gran % Neutrophils % Lymphocytes % Monocytes % Eosinophils % Basophils % Nucleated RBC % Absolute Neutrophils Absolute Lymphocytes Absolute Monocytes Absolute Eosinophils Absolute Basophils PT INR D-Dimer Sodium 140 Potassium 4.0 Chloride 102 Carbon Dioxide 27.9 Anion Gap 10.1 BUN 26 H Creatinine 1.8 H Estimated GFR/1.73 m2 36.39 Glucose 151 H Hemoglobin A1c 5.8 H Calcium 8.6 Phosphorus 3.6 Magnesium 2.6 H Ferritin 277 Total Bilirubin 0.7 Conjugated Bilirubin 0.2 AST 14 L ALT 15 L Alkaline Phosphatase 62 Lactate Dehydrogenase Troponin I C-Reactive Protein 22.99 H NT-Pro-B Natriuret Pep Total Protein 6.5 Albumin 2.8 L 25-OH Vitamin D Total Procalcitonin 0.2 Urine Color Urine Clarity Urine pH Ur Specific [place] Urine Protein Urine Ketones Urine Blood Urine Nitrite Urine Bilirubin Urine Urobilinogen Ur Leukocyte Esterase Urine RBC Urine WBC Ur Epithelial Cells Urine Crystals Urine Bacteria Urine Casts Urine Mucus Ur Culture Indicated? Urine Glucose COVID-19 Source SARS-CoV-2 (PCR) Influenza Type A (PCR) Influenza Type B (PCR) RSV (PCR) Add-On Test Request 10/04/21 10/04/21 10/04/21 06:20 06:20 06:20 WBC 9.05 RBC 3.63 L Hgb 12.2 L Hct 36.5 L MCV 100.6 H MCH 33.6 H MCHC 33.4 RDW 12.3 Plt Count 176 MPV 9.6 Immature Gran % 0.4 Neutrophils % 90.3 Lymphocytes % 5.3 Monocytes % 3.8 Eosinophils % 0.1 Basophils % 0.1 Nucleated RBC % 0 Absolute Neutrophils 8.17 H Absolute Lymphocytes 0.48 L Absolute Monocytes 0.34 Absolute Eosinophils 0.01 Absolute Basophils 0.01 PT 11.8 H INR 1.2 H D-Dimer 5279 H Sodium Potassium Chloride Carbon Dioxide Anion Gap BUN Creatinine Estimated GFR/1.73 m2 Glucose Hemoglobin A1c Calcium Phosphorus Magnesium Ferritin Total Bilirubin Conjugated Bilirubin AST ALT Alkaline Phosphatase Lactate Dehydrogenase Troponin I C-Reactive Protein NT-Pro-B Natriuret Pep Total Protein Albumin 25-OH Vitamin D Total 34.6 Procalcitonin Urine Color Urine Clarity Urine pH Ur Specific [place] Urine Protein Urine Ketones Urine Blood Urine Nitrite Urine Bilirubin Urine Urobilinogen Ur Leukocyte Esterase Urine RBC Urine WBC Ur Epithelial Cells Urine Crystals Urine Bacteria Urine Casts Urine Mucus Ur Culture Indicated? Urine Glucose COVID-19 Source SARS-CoV-2 (PCR) Influenza Type A (PCR) Influenza Type B (PCR) RSV (PCR) Add-On Test Request PAWSS Have you Been Recently Intoxicated or Drunk Within the Last 30 days?: No Have you Ever Experienced Previous Episodes of Alcohol Withdrawal?: No Have you ever Experienced Withdrawal Seizures?: No Have you ever Experienced Delirium Tremens(DT)s?: No Have you ever undergone Alcohol Rehabilitation Treatment (i.e, inpt ot outpatient treatment programs)?: No Have you ever Experienced Blackouts?: No Have you ever Combined Alcohol with other Downers within the last 90 days?: No Have you ever Combined Alcohol with any other Substance of Abuse during the last 90 days?: No Positive Blood Alcohol level on Presentation? [PCS.BAL]: No Evidence of Increased Autonomic Activity (i.e. HR>120, tremor, sweating, agitation, nausea)?: No Result: 0
[2021-10-04 10:09] LABS: Source Nasopharynx
[2021-10-04 10:56] LABS: COVID-19 PCR Negative (Negative)
[2021-10-04] MEDS: Furosemide 20 MG TAB PO (13:02)
--- NOTE | 2021-10-04 15:04 | DI.US_ITS ---
APPROVED REPORT EXAM: Comprehensive 2D, Doppler, and color-flow Echocardiogram Patient Location: In-Patient Room/Bed: [address] [employer] Member: Paula Romero RDCS (AE) Indications: PE, SOB, COVID Other Information Study Quality: Fair. Technically limited study due to body habitus, limited subcostal exam. Conclusion Left Ventricle : The left ventricle is normal size. The left ventricular ejection fraction is within the normal range. There is normal left ventricular wall thickness. There is normal LV segmental wall motion. The left ventricular diastolic function is normal. LVEF is 55%. Right Ventricle : Right ventricle is not well visualized. Right ventricular systolic function could n ot be assessed. Atria : The left atrium size is normal. The right atrium size is normal. Mitral Valve : The mitral valve is normal in structure. Mild mitral regurgitation. No evidence of brennon ral valve stenosis. Great Vessels : Aortic root is mildly dilated. The ascending aorta is dilated (4.8cm). The IVC was no t visualized. See remainder of study for further details Wall motion Left Ventricle The left ventricle is normal size. The left ventricular ejection fraction is within the normal range. There is normal left ventricular wall thickness. There is normal LV segmental wall motion. The left ventricular diastolic function is normal. LVEF is 55%. Right Ventricle Right ventricle is not well visualized. Right ventricular systolic function could not be assessed. Atria The left atrium size is normal. The right atrium size is normal. Aortic Valve The aortic valve is normal in structure. Aortic valve is trileaflet. There is no aortic valvular sten osis. No aortic regurgitation is present. Mitral Valve The mitral valve is normal in structure. No evidence of mitral valve stenosis. Mild mitral regurgitat ion. Tricuspid Valve The tricuspid valve is normal in structure. There is no tricuspid valve stenosis. Mild tricuspid regu rgitation. Pulmonic Valve The pulmonary valve is normal in structure. There is no pulmonic valvular stenosis. Mild pulmonic reg urgitation. Great Vessels Aortic root is mildly dilated. The ascending aorta is dilated (4.8cm). The IVC was not visualized. 2D Dimensions IVSD d PLAX 1.12 cm M: 0.6-1.2 LV Vol A2C d MOD 142.0 mL LVPW d PLAX 1.12 cm M: 0.6 - 1.2 LV Vol A4C d MOD 121.9 mL LVID d PLAX 4.50 cm M: 4.2 - 5.8 LA vol/ BSA A2C s A-L 13.6 mL/m2 LVDs 3.15 cm M: 2.5 - 4.0 LA vol/ BSA A4C s A-L 17.2 mL/m2 Ao Root d 4.04 cm M: 3.1 - 3.7 LA Vol/ BSA Biplane s A-L 17.5 mL/m2 Ao Asc Diam d 4.78 cm M: 2.6 - 3.4 LA Area A4C s MOD 14.51 cm2 LV EF Teichholz 55.8 % LA Area A2C s MOD 11.29 cm2 LVEF (Salguero's) 55.78 % M: 52 - 72 LV EF A4C MOD 56.2 % LV Volume 99.02 mL M: 62 - 150 LV EF A2C MOD 55.2 % LV Volume Index 46.05 mL/m2 M: 34 - 74 LV EF Biplane MOD 55.8 % LV Vol Biplane MOD 135.2 mL SV 75.41 mL FS 28.95 % SV Index 35.06 mL/m2 M-Mode TAPSE 1.35 cm (M/F) >1.7 LV Diastology MV E' medial 0.079 (>0.07 m/s) E/A Ratio 0.8 LV E/e MED 10.90 (<14) MV E Vmax 0.87 (0.4-1.3 m/s) MV E' lateral 0.088 (>0.1 m/s) MV A Vmax 1.05 (0.4-1.3 m/s) LV E/e LAT 9.80 (<14) MV E/A Ratio 0.82 MV E/E' medial 10.93 MV E/E' lateral 9.83 Aortic Valve LVOT Area 4.20 cm2 AoV Area Vmax 3.54 cm2 LVOT Vmax 1.08 m/s AoV Area/ BSA (Vmax) 1.64 cm2/m2 LVOT Mean Arya. 0.74 m/s AYE Mean Arya. 3.54 cm2 LVOT Peak Grad 4.7 mmHg AYE Mean Arya. Index 1.65 cm2/m2 LVOT Mean Grad 2.5 mmHg LVOT VTI 0.264 m LVOT Diam s 2.30 cm AoV Vmax 1.28 m/s Velocity Ratio 0.84 AoV Mean Arya. 0.88 m/s AoV Peak Grad 6.6 mmHg LVOT SV 110.77 mL AoV Mean Grad 3.5 mmHg AoV VTI 0.275 m AoV Area VTI 4.03 cm2 AoV Area/ BSA (VTI) 1.87 cm/m2 Mitral Valve MV DT 233 (160-240 msec) MV PHT 67 msec MV Area PHT 3.26 cm2 MV VTI 0.269 m MV Area VTI 4.12 (4.0-6.0 cm2) Pulmonary Valve PV Vmax 1.24 (0.5-1.5 m/s) RVOT Peak Gr. 3.16 mmHg PV Peak Grad 6.2 mmHg RVOT Mean Gr. 1.55 mmHg PV Mean Grad 2.8 mmHg RVOT VTI 0.168 m PV VTI 0.232 m RVOT Vmax 0.89 m/s Tricuspid Valve TR Peak Grad 22.4 mmHg TR Vmax 2.37 m/s
[2021-10-04] MEDS: Acetaminophen 325 MG TAB PO (15:05)
--- NOTE | 2021-10-04 16:45 | INITIAL_ITS ---
- If Service Date Differs Date of service: 10/04/21 Time of Service: 16:45 Care Management Initial Assess REASON FOR HOSPITALIZATION:: R/O Covid pneumonia PAST MEDICAL HISTORY/PAST SURGICAL HISTORY:: All Active Problems (Updated 10/03/21 @ 15:48 by Astrid Orourke NP). Acute exacerbation of CHF (congestive heart failure) (Acute). SOB (shortness of breath) (Acute). Hypothyroidism (Acute). Polymyalgia rheumatica (Acute). pt. reports he has this not pa jarrod. Discharge planning issues (Acute). DVT prophylaxis (Acute). Pulmonary emboli (Acute). Bilateral pneumonia (Acute). Sleep apnea (Chronic). PAD (peripheral artery disease) (Chronic). Medical History . BPH (benign prostatic hyperplasia). Chronic ethmoidal sinusitis. Chronic frontal sinusitis. Chronic kidney disease. Deviated nasal septum. Dilated aortic root. E coli bacteremia. Fractured rib. mid May 2019. Kidney stone. Lyme disease. Nasal septal spur. Nasal turbinate hypertrophy. Parkinsons. pt. states he does not have. Pulmonary fat embolism. Pyelonephritis due to Escherichia coli. Surgical History . Hx of colonoscopy. Hx of inguinal hernia surgery. Hx of total hip arthroplasty. right PREVIOUS FUNCTIONAL STATUS/SOCIAL/FAMILY SUPPORTS:: Wilfrido Kumar) resides in [place] with his cat and dog. He reports having owned the home for more than forty years but only moved up to the home from [facility] after his divorce a few years ago. 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 He reports being independent with all ADLs at baseline and keeps busy maintaining his home. CURRENT FUNCTIONAL STATUS:: CM was unable top meet with Jarrod in person due to his Covid isolation, but was able to speak to him on the phone. Jarrod has tested negative for Covid X2 this admission but remains on precautions because his clinical picture and imaging are strongly suggestive of Covid with multiple pulmobnary emboli. Al stated that he is feeling better than when first admitted. He does not believe he will need any services at this time. ADVANCE DIRECTIVES:: none on file Has patient been provided with info about the portal/API?: Yes Did the patient sign up for the portal?: No CODE STATUS:: DNR/DNI INSURANCE COVERAGE / FINANCIAL ISSUES:: Medicare. AARP CURRENT HOME/COMMUNITY SERVICES/EQUIPMENT:: none currently PRIMARY CARE PHYSICIAN:: Ana Wilkes POTENTIAL DISCHARGE NEEDS:: Follow up with PCP and plan of care PATIENT/FAMILY EDUCATION NEEDS:: Review discharge instructions, limitations, activity and medications; discussion of self care needs including ask me three. TRANSPORTATION:: via [employer] vehicle with family PLAN:: Anticipate Al will return home with no new services when medically cleared. His sister will likely drive him home via private vehicle. He will follow up with his PCP and discharge plan of care. CM will continue to support Al and assess for discharge planning needs.
[2021-10-04] MEDS: REMDESIVIR 100 MG in Normal Saline 250 ML 250 MG IVPB (17:13)
[2021-10-04] MEDS: rOPINIRole 1 MG TAB 2 MG PO (22:14)
[2021-10-04] MEDS: cefTRIAXone 1 GM/50 ML BAG IVPB (22:14)
[2021-10-05] VITALS (12 sets, daily range): BP systolic 110–145; BP diastolic 64–76; PULSE 58–91; RESP 2–18; TEMP 35.8–36.7; O2SAT 93–97
[2021-10-05] MEDS: DOXYCYCLINE 100 MG in Normal Saline 100 ML IVPB ×2 (00:17→12:03)
[2021-10-05] MEDS: Enoxaparin 100 MG/ML SYR SC ×2 (05:15→15:27)
[2021-10-05] MEDS: Levothyroxine 75 MCG TAB PO (05:15)
[2021-10-05] MEDS: Albuterol/Ipratropium 3 ML UPD VIAL IH (06:46)
[2021-10-05 07:39] LABS: Abs Immature Grans 0.14 10^3/uL (0.0-0.06); Absolute Basophil Count 0.02 10^3/uL (0.0-0.2); Absolute Monocyte Count 0.69 10^3/uL (0.1-0.8); Absolute Neutrophil Count 14.39 10^3/uL (1.2-6.7); Basophils % 0.1; Eosinophils % 0.1; HCT 39.5 % (40.0-50.0); HGB 13.2 g/dL (13.5-17.5); Immature Grans % 0.9; Lymphocytes % 6.8; MCH 33.8 pg (27.0-33.0); MCHC 33.4 % (32.0-36.0); MCV 101.3 fL (80-95); MPV 9.6 fL (8.0-11.0); Monocytes % 4.2; Neutrophils % 87.9; Nucleated RBC 0 %; Platelet Count 234 10^3/uL (130-400); RDW 12.4 % (11.8-14.1); RDW-SD 45.9 fL; WBC 16.37 10^3/uL (4.4-10.8)
[2021-10-05 07:41] LABS: Absolute Eosinophil Count 0.02 10^3/uL (0.0-0.7); Absolute Lymphocyte Count 1.11 10^3/uL (1.2-3.4)
[2021-10-05 07:55] LABS: Anion Gap 7.4 mmol/L (3-11); BUN 40 mg/dL (7-18); CO2 24.6 mmol/L (21.0-32.0); CREATININE 1.9 mg/dL (0.70-1.30); Calcium 8.6 mg/dL (8.5-10.1); Chloride 101 mmol/L (98-107); Estimated GFR 34.19 (mL/min/1.73m2); Glucose 129 mg/dL (74-106); Potassium 3.6 mmol/L (3.5-5.1); Sodium 133 mmol/L (136-145)
--- NOTE | 2021-10-05 08:26 | CMPROGNOTE_ITS ---
- If Service Date Differs Date of service: 10/05/21 Time of Service: 08:27 Care Management Progress Note S/O: Al remains inpatient, pulmonology continues to follow with recommendations for steroid tapering and respiratory medications, as well per MD anticipate Al will transition to Eliquis with expected new prescription upon discharge. CM continues to follow. A: 81 year old male admitted to [facility] 10/03/20 with acute PE w/hypoxia, CHF, R/O CV-19 P: Al will return home with no new services when medically cleared. CM will support offsetting Eliquis costs as appropriate. Al's sister will likely drive him home via private vehicle. He will follow up with his PCP and discharge plan of care. CM will continue to support Al and assess for discharge planning needs.
[2021-10-05] MEDS: Furosemide 20 MG TAB PO (08:34)
[2021-10-05] MEDS: Montelukast 10 MG TAB PO (08:34)
[2021-10-05] MEDS: Sertraline 25 MG TAB PO (08:34)
[2021-10-05] MEDS: Tamsulosin 0.4 MG CAPCR 0.8 MG PO (08:34)
[2021-10-05] MEDS: Losartan 50 MG TAB 75 MG PO (08:34)
[2021-10-05] MEDS: Finasteride 5 MG TAB PO (08:34)
[2021-10-05] MEDS: Dexamethasone 4 MG TAB 6 MG PO (08:35)
[2021-10-05] MEDS: Furosemide 40 MG/4 ML VIAL IVP ×2 (12:03→18:01)
[2021-10-05] MEDS: Normal Saline Flush 10 ML SYR IVP ×2 (12:03→18:02)
[2021-10-05] MEDS: Normal Saline 500 ML 30 ML IV (12:04)
--- NOTE | 2021-10-05 13:41 | W.PULMPROG ---
Assessment and Plan Assessment and plan (1) Bilateral pneumonia: Status: Acute (2) Pulmonary emboli: Status: Acute (3) Polymyalgia rheumatica: Status: Acute Assessment and plan: This is an 81 yo man with polymyalgia rheumatica on 5mg of prednisone and sinus issues who is here for shortness of breath found to be in volume overload and with a bilateral multi-lobar pneumonia. He has had 2 negative COVID tests and so believe it is safe to discontinue his precautions. He did also receive remdesivir without a positive COVID test so would advise only giving this to patients with a positive COVID test. I had recommended he is on appropriate medications for CAP at the moment. Bilateral Pneumonia - recommend the follow steroid taper: - prednisone 40mg for 7 days, 30mg for 5 days, 20mg for 5 days, 10mg for 3 days, 5mg for 3 days - discontinue both special precautions and remdesivir - continue ceftriazone and doxycycline - recommend sputum sample if able for culture - will start Mucinex 1200mg bid (order placed) RUL PE - recommend heparin infusion given GFR if not switching to DOAC - no DVT on Duplex, TTE ok with no right heart strain - can switch him to DOAC Hypoxic respiratory failure - albuterol prn - continue Singulair - IS and Acapella - O2 as needed for sats > 90% - diuresis per primary team - ambulatory pulse ox to assess needs prior to discharge Pulmonary to sign off, please let me know if any further assistance is needed - do not hesitate to call General Date Of Service Date of service: 10/05/21 Time of Service: 12:00 Reason for Consult: Bilateral pneumonia Subjective Note Note: Al is doing well today. He feels as though he is improving but still have significant congestion in his chest. He is coughing but still having trouble getting anything up. Exam Const General: no acute distress Nutritional Appearance: well nourished [facility] Head: normocephalic Ears: external ears normal and no periauricular adenopathy General nose exam: nasal mucous membranes and turbinates normal Face and sinus: sinuses nontender Mouth: oropharynx normal and moist mucous membranes Teeth and gingiva: dentition normal Eyes General: appearance normal, both eyes and all related structures Pupils: PERRL Neck Neck: normal visual inspection and no lymphadenopathy Chest Chest: normal inspection of the chest Resp Effort & Inspection: normal respiratory effort Auscultation: rales bilaterally, no rhonchi and no wheezes Cardio Rate: regular rate Rhythm: regular rhythm Heart Sounds: S1 normal, S2 normal and no murmurs Pulses: radial pulses present bilaterally GI Inspection: normal to inspection Palpation: soft Skin General skin exam: no rashes or lesions noted Neuro General: patient alert, patient awake and patient oriented x3 Extrem General: no clubbing, no cyanosis and edema Psych Mental Status: mental status grossly normal Affect: normal affect Attitude: cooperative Objective Last Vital Signs Temp 36.3 C L 10/05/21 11:39 Pulse 83 10/05/21 11:39 Resp 17 10/05/21 11:39 BP 110/65 10/05/21 11:39 Pulse Ox 96 10/05/21 11:39 Laboratory Results - last 24 hr 10/05/21 10/05/21 07:15 07:15 WBC 16.37 H D RBC 3.90 L Hgb 13.2 L Hct 39.5 L MCV 101.3 H MCH 33.8 H MCHC 33.4 RDW 12.4 Plt Count 234 MPV 9.6 Immature Gran % 0.9 Neutrophils % 87.9 Lymphocytes % 6.8 Monocytes % 4.2 Eosinophils % 0.1 Basophils % 0.1 Nucleated RBC % 0 Absolute Neutrophils 14.39 H Absolute Lymphocytes 1.11 L Absolute Monocytes 0.69 Absolute Eosinophils 0.02 Absolute Basophils 0.02 Sodium 133 L Potassium 3.6 Chloride 101 Carbon Dioxide 24.6 Anion Gap 7.4 BUN 40 H D Creatinine 1.9 H Estimated GFR/1.73 m2 34.19 Glucose 129 H Calcium 8.6 Results Medications Medications: Active Medications Generic Name Dose Route Start Last Admin Trade Name Freq PRN Reason Stop Dose Admin Acetaminophen 0 mg 10/03/21 14:20 10/04/21 15:05 Acetaminophen 325 Mg Tab PO 650 mg Q4H PRN PRN Administration Al Hydrox/Mg Hydrox/Simethicone 30 ml 10/03/21 14:20 Mylanta Suspension 30 Ml Cup PO Q2H PRN PRN Albuterol Sulfate 2 puff 10/03/21 14:45 Albuterol Hfa 8 Gm 60 Puff Inh IH Q4H PRN PRN Albuterol/Ipratropium 3 ml 10/03/21 18:00 10/05/21 06:46 Albuterol/Ipratropium 3 Ml Upd Vial IH 3 ml Q6H PRN Administration Device 1 each 10/03/21 15:00 Inhaler, Assist Device DIRECTED FOR[facility]LY [facility] Dexamethasone 6 mg 10/04/21 08:30 10/05/21 08:35 Dexamethasone 4 Mg Tab PO 6 mg DAILY DEVENDRA Administration Dimethicone/Zinc Oxide 0 gm 10/03/21 14:20 Christina Protect Cream 142 Gm Tube TP PRN PRN Docusate Sodium 100 mg 10/03/21 14:20 Docusate Sodium 100 Mg Cap PO TID PRN PRN Enoxaparin Sodium 100 mg 10/04/21 04:00 10/05/21 05:15 Enoxaparin 100 Mg/Ml Syr SC 100 mg Q12H DEVENDRA Administration Finasteride 5 mg 10/04/21 08:30 10/05/21 08:34 Finasteride 5 Mg Tab PO 5 mg DAILY DEVENDRA Administration Furosemide 20 mg 10/06/21 08:30 Furosemide 20 Mg/2 Ml Vial IVP DAILY [facility] Sodium Chloride 500 mls @ 0 mls/hr 10/03/21 14:20 10/05/21 12:04 Saline 500ml Bag IV 30 mls/hr PRN PRN Administration As Directed Ceftriaxone Sodium/Dextrose 1 gm in 50 mls @ 100 mls/hr 10/03/21 20:00 10/04/21 22:14 Rocephin IVPB 100 mls/hr Q24H DEVENDRA Administration Doxycycline Hyclate 100 mg/ 100 mls @ 100 mls/hr 10/04/21 00:00 10/05/21 12:03 Sodium Chloride IVPB 100 mls/hr Q12H DEVENDRA Administration IV Miscellaneous Supplies 1 each 10/03/21 14:30 Iv Access IV DIRECTED [facility] Lactobacillus Acidophilus/Casei 1 cap 10/04/21 08:30 10/05/21 08:34 L. Acidophilus, Casei, Rhamnosus Cap PO 1 cap DAILY DEVENDRA Administration Levothyroxine Sodium 75 mcg 10/04/21 06:00 10/05/21 05:15 Levothyroxine 75 Mcg Tab PO 75 mcg DAILY@0600 DEVENDRA Administration Losartan Potassium 75 mg 10/04/21 08:30 10/05/21 08:34 Losartan 50 Mg Tab PO 75 mg DAILY DEVENDRA Administration Magnesium Hydroxide 30 ml 10/03/21 14:20 Milk Of Magnesia 30 Ml Cup PO DAILY PRN PRN Montelukast Sodium 10 mg 10/04/21 08:30 10/05/21 08:34 Montelukast 10 Mg Tab PO 10 mg DAILY DEVENDRA Administration Ropinirole HCl 2 mg 10/03/21 22:00 10/04/21 22:14 Ropinirole 1 Mg Tab PO 2 mg HS DEVENDRA Administration Sertraline HCl 25 mg 10/04/21 08:30 10/05/21 08:34 Sertraline 25 Mg Tab PO 25 mg DAILY DEVENDRA Administration Sodium Chloride 0 ml 10/03/21 14:20 10/05/21 12:03 Normal Saline Flush 10 Ml Syr IVP 30 ml PRN PRN Administration Tamsulosin HCl 0.8 mg 10/04/21 08:30 10/05/21 08:34 Tamsulosin 0.4 Mg Capcr PO 0.8 mg DAILY DEVENDRA Administration Tramadol HCl 50 mg 10/03/21 14:44 Tramadol 50 Mg Tab PO BID PRN PRN Allergies Sulfa (Sulfonamide Antibiotics) Adverse Reaction (Intermediate, Verified 10/03/21 11:35) Its been along time cat dander Adverse Reaction (Mild, Verified 10/03/21 11:35) penicillin V Adverse Reaction (Mild, Verified 10/03/21 11:35) nausea salicylates Adverse Reaction (Mild, Verified 10/03/21 11:35) up set stomach Labs Result Diagrams: 10/05/21 07:15 10/05/21 07:15 Labs: 10/03/21 15:25 Blood Blood Culture - Preliminary NO GROWTH 24 HOURS 10/03/21 14:35 Blood Blood Culture - Preliminary NO GROWTH 24 HOURS Laboratory Tests Range/Units 10/03/21 10/03/21 10/03/21 11:15 11:40 11:40 WBC (4.4-10.8) 10^3/uL 9.36 RBC (4.36-5.78) 10^6/uL 3.81 L Hgb (13.5-17.5) g/dL 12.8 L Hct (40.0-50.0) % 38.7 L MCV (80-95) fL 101.6 H MCH (27.0-33.0) pg 33.6 H MCHC (32.0-36.0) % 33.1 RDW (11.8-14.1) % 12.7 Plt Count (130-400) 10^3/uL 168 MPV (8.0-11.0) fL 9.2 Immature Gran % 0.5 Neutrophils % 83.3 Lymphocytes % 6.1 Monocytes % 8.5 Eosinophils % 1.4 Basophils % 0.2 Nucleated RBC % % 0 Absolute Neutrophils (1.2-6.7) 10^3/uL 7.79 H Absolute Lymphocytes (1.2-3.4) 10^3/uL 0.57 L Absolute Monocytes (0.1-0.8) 10^3/uL 0.80 Absolute Eosinophils (0.0-0.7) 10^3/uL 0.13 Absolute Basophils (0.0-0.2) 10^3/uL 0.02 PT (9.3-11.0) sec INR (0.9-1.1) D-Dimer (<500) ng/mlFEU Sodium (136-145) mmol/L 139 Potassium (3.5-5.1) mmol/L 4.9 Chloride (98-107) mmol/L 103 Carbon Dioxide (21.0-32.0) mmol/L 28.4 Anion Gap (3-11) mmol/L 7.6 BUN (7-18) mg/dL 20 H Creatinine (0.70-1.30) mg/dL 1.6 H Estimated GFR/1.73 m2 (mL/min/1.73m2) 41.69 Glucose (74-106) mg/dL 109 H Hemoglobin A1c (<5.7) % Calcium (8.5-10.1) mg/dL 8.7 Phosphorus (2.6-4.7) mg/dL Magnesium (1.8-2.4) mg/dL 1.6 L Ferritin (26-388) ng/mL Total Bilirubin (0.2-1.0) mg/dL 1.5 H Conjugated Bilirubin (0.0-0.2) mg/dL AST (15-37) U/L 27 ALT (16-63) U/L 14 L Alkaline Phosphatase (46-116) U/L 68 Lactate Dehydrogenase (85-227) U/L Troponin I (<or=60) ng/L < 50 C-Reactive Protein (0.0-0.3) mg/dL NT-Pro-B Natriuret Pep (<300) pg/mL 1854 H Total Protein (6.4-8.2) g/dL 7.0 Albumin (3.4-5.0) g/dL 3.1 L 25-OH Vitamin D Total (30-100) ng/mL Procalcitonin ng/mL Urine Color (Yellow) Urine Clarity (Clear) Urine pH (5-8) Ur Specific [place] (1.005-1.025) Urine Protein (Negative) mg/dL Urine Ketones (Negative) mg/dL Urine Blood (Negative) Urine Nitrite (Negative) Urine Bilirubin (Negative) Urine Urobilinogen (Up TO 0.2) EU/dL Ur Leukocyte Esterase (Negative) Urine RBC (0-2) HPF Urine WBC (0-5) HPF Ur Epithelial Cells (Negative) HPF Urine Crystals (Negative) HPF Urine Bacteria (Negative) HPF Urine Casts (Negative) LPF Urine Mucus (Negative) Ur Culture Indicated? Urine Glucose (Negative) mg/dL COVID-19 Source Cancelled SARS-CoV-2 (PCR) Cancelled Influenza Type A (PCR) (Negative) Influenza Type B (PCR) (Negative) RSV (PCR) (Negative) Add-On Test Request Range/Units 10/03/21 10/03/21 10/03/21 11:40 11:40 11:45 WBC (4.4-10.8) 10^3/uL RBC (4.36-5.78) 10^6/uL Hgb (13.5-17.5) g/dL Hct (40.0-50.0) % MCV (80-95) fL MCH (27.0-33.0) pg MCHC (32.0-36.0) % RDW (11.8-14.1) % Plt Count (130-400) 10^3/uL MPV (8.0-11.0) fL Immature Gran % Neutrophils % Lymphocytes % Monocytes % Eosinophils % Basophils % Nucleated RBC % % Absolute Neutrophils (1.2-6.7) 10^3/uL Absolute Lymphocytes (1.2-3.4) 10^3/uL Absolute Monocytes (0.1-0.8) 10^3/uL Absolute Eosinophils (0.0-0.7) 10^3/uL Absolute Basophils (0.0-0.2) 10^3/uL PT (9.3-11.0) sec INR (0.9-1.1) D-Dimer (<500) ng/mlFEU Sodium (136-145) mmol/L Potassium (3.5-5.1) mmol/L Chloride (98-107) mmol/L Carbon Dioxide (21.0-32.0) mmol/L Anion Gap (3-11) mmol/L BUN (7-18) mg/dL Creatinine (0.70-1.30) mg/dL Estimated GFR/1.73 m2 (mL/min/1.73m2) Glucose (74-106) mg/dL Hemoglobin A1c (<5.7) % Calcium (8.5-10.1) mg/dL Phosphorus (2.6-4.7) mg/dL Magnesium (1.8-2.4) mg/dL Ferritin (26-388) ng/mL 255 Total Bilirubin (0.2-1.0) mg/dL Conjugated Bilirubin (0.0-0.2) mg/dL AST (15-37) U/L ALT (16-63) U/L Alkaline Phosphatase (46-116) U/L Lactate Dehydrogenase (85-227) U/L Troponin I (<or=60) ng/L C-Reactive Protein (0.0-0.3) mg/dL 19.24 H NT-Pro-B Natriuret Pep (<300) pg/mL Total Protein (6.4-8.2) g/dL Albumin (3.4-5.0) g/dL 25-OH Vitamin D Total (30-100) ng/mL Procalcitonin ng/mL Urine Color (Yellow) Urine Clarity (Clear) Urine pH (5-8) Ur Specific [place] (1.005-1.025) Urine Protein (Negative) mg/dL Urine Ketones (Negative) mg/dL Urine Blood (Negative) Urine Nitrite (Negative) Urine Bilirubin (Negative) Urine Urobilinogen (Up TO 0.2) EU/dL Ur Leukocyte Esterase (Negative) Urine RBC (0-2) HPF Urine WBC (0-5) HPF Ur Epithelial Cells (Negative) HPF Urine Crystals (Negative) HPF Urine Bacteria (Negative) HPF Urine Casts (Negative) LPF Urine Mucus (Negative) Ur Culture Indicated? Urine Glucose (Negative) mg/dL COVID-19 Source Nasopharynx SARS-CoV-2 (PCR) Negative Influenza Type A (PCR) (Negative) Negative Influenza Type B (PCR) (Negative) Negative RSV (PCR) (Negative) Negative Add-On Test Request DONE Range/Units 10/03/21 10/03/21 10/03/21 12:10 14:35 14:35 WBC (4.4-10.8) 10^3/uL RBC (4.36-5.78) 10^6/uL Hgb (13.5-17.5) g/dL Hct (40.0-50.0) % MCV (80-95) fL MCH (27.0-33.0) pg MCHC (32.0-36.0) % RDW (11.8-14.1) % Plt Count (130-400) 10^3/uL MPV (8.0-11.0) fL Immature Gran % Neutrophils % Lymphocytes % Monocytes % Eosinophils % Basophils % Nucleated RBC % % Absolute Neutrophils (1.2-6.7) 10^3/uL Absolute Lymphocytes (1.2-3.4) 10^3/uL Absolute Monocytes (0.1-0.8) 10^3/uL Absolute Eosinophils (0.0-0.7) 10^3/uL Absolute Basophils (0.0-0.2) 10^3/uL PT (9.3-11.0) sec INR (0.9-1.1) D-Dimer (<500) ng/mlFEU Sodium (136-145) mmol/L Potassium (3.5-5.1) mmol/L Chloride (98-107) mmol/L Carbon Dioxide (21.0-32.0) mmol/L Anion Gap (3-11) mmol/L BUN (7-18) mg/dL Creatinine (0.70-1.30) mg/dL Estimated GFR/1.73 m2 (mL/min/1.73m2) Glucose (74-106) mg/dL Hemoglobin A1c (<5.7) % Calcium (8.5-10.1) mg/dL Phosphorus (2.6-4.7) mg/dL Magnesium (1.8-2.4) mg/dL Ferritin (26-388) ng/mL Total Bilirubin (0.2-1.0) mg/dL Conjugated Bilirubin (0.0-0.2) mg/dL AST (15-37) U/L ALT (16-63) U/L Alkaline Phosphatase (46-116) U/L Lactate Dehydrogenase (85-227) U/L 300 H Troponin I (<or=60) ng/L 59 C-Reactive Protein (0.0-0.3) mg/dL NT-Pro-B Natriuret Pep (<300) pg/mL Total Protein (6.4-8.2) g/dL Albumin (3.4-5.0) g/dL 25-OH Vitamin D Total (30-100) ng/mL Procalcitonin ng/mL Urine Color (Yellow) Yellow Urine Clarity (Clear) Clear Urine pH (5-8) 6.0 Ur Specific [place] (1.005-1.025) 1.020 Urine Protein (Negative) mg/dL Negative Urine Ketones (Negative) mg/dL Negative Urine Blood (Negative) Moderate H Urine Nitrite (Negative) Negative Urine Bilirubin (Negative) Negative Urine Urobilinogen (Up TO 0.2) EU/dL 1.0 H Ur Leukocyte Esterase (Negative) Negative Urine RBC (0-2) HPF 10-20 H Urine WBC (0-5) HPF Negative Ur Epithelial Cells (Negative) HPF Few Urine Crystals (Negative) HPF Negative Urine Bacteria (Negative) HPF Negative Urine Casts (Negative) LPF Negative Urine Mucus (Negative) Trace Ur Culture Indicated? No Urine Glucose (Negative) mg/dL Negative COVID-19 Source SARS-CoV-2 (PCR) Influenza Type A (PCR) (Negative) Influenza Type B (PCR) (Negative) RSV (PCR) (Negative) Add-On Test Request Range/Units 10/03/21 10/04/21 10/04/21 14:35 06:20 06:20 WBC (4.4-10.8) 10^3/uL RBC (4.36-5.78) 10^6/uL Hgb (13.5-17.5) g/dL Hct (40.0-50.0) % MCV (80-95) fL MCH (27.0-33.0) pg MCHC (32.0-36.0) % RDW (11.8-14.1) % Plt Count (130-400) 10^3/uL MPV (8.0-11.0) fL Immature Gran % Neutrophils % Lymphocytes % Monocytes % Eosinophils % Basophils % Nucleated RBC % % Absolute Neutrophils (1.2-6.7) 10^3/uL Absolute Lymphocytes (1.2-3.4) 10^3/uL Absolute Monocytes (0.1-0.8) 10^3/uL Absolute Eosinophils (0.0-0.7) 10^3/uL Absolute Basophils (0.0-0.2) 10^3/uL PT (9.3-11.0) sec INR (0.9-1.1) D-Dimer (<500) ng/mlFEU Sodium (136-145) mmol/L 140 Potassium (3.5-5.1) mmol/L 4.0 Chloride (98-107) mmol/L 102 Carbon Dioxide (21.0-32.0) mmol/L 27.9 Anion Gap (3-11) mmol/L 10.1 BUN (7-18) mg/dL 26 H Creatinine (0.70-1.30) mg/dL 1.8 H Estimated GFR/1.73 m2 (mL/min/1.73m2) 36.39 Glucose (74-106) mg/dL 151 H Hemoglobin A1c (<5.7) % 5.8 H Calcium (8.5-10.1) mg/dL 8.6 Phosphorus (2.6-4.7) mg/dL 3.6 Magnesium (1.8-2.4) mg/dL 2.6 H Ferritin (26-388) ng/mL 277 Total Bilirubin (0.2-1.0) mg/dL 0.7 Conjugated Bilirubin (0.0-0.2) mg/dL 0.2 AST (15-37) U/L 14 L ALT (16-63) U/L 15 L Alkaline Phosphatase (46-116) U/L 62 Lactate Dehydrogenase (85-227) U/L Troponin I (<or=60) ng/L C-Reactive Protein (0.0-0.3) mg/dL 22.99 H NT-Pro-B Natriuret Pep (<300) pg/mL Total Protein (6.4-8.2) g/dL 6.5 Albumin (3.4-5.0) g/dL 2.8 L 25-OH Vitamin D Total (30-100) ng/mL Procalcitonin ng/mL 0.2 Urine Color (Yellow) Urine Clarity (Clear) Urine pH (5-8) Ur Specific [place] (1.005-1.025) Urine Protein (Negative) mg/dL Urine Ketones (Negative) mg/dL Urine Blood (Negative) Urine Nitrite (Negative) Urine Bilirubin (Negative) Urine Urobilinogen (Up TO 0.2) EU/dL Ur Leukocyte Esterase (Negative) Urine RBC (0-2) HPF Urine WBC (0-5) HPF Ur Epithelial Cells (Negative) HPF Urine Crystals (Negative) HPF Urine Bacteria (Negative) HPF Urine Casts (Negative) LPF Urine Mucus (Negative) Ur Culture Indicated? Urine Glucose (Negative) mg/dL COVID-19 Source SARS-CoV-2 (PCR) Influenza Type A (PCR) (Negative) Influenza Type B (PCR) (Negative) RSV (PCR) (Negative) Add-On Test Request Range/Units 10/04/21 10/04/21 10/04/21 06:20 06:20 06:20 WBC (4.4-10.8) 10^3/uL 9.05 RBC (4.36-5.78) 10^6/uL 3.63 L Hgb (13.5-17.5) g/dL 12.2 L Hct (40.0-50.0) % 36.5 L MCV (80-95) fL 100.6 H MCH (27.0-33.0) pg 33.6 H MCHC (32.0-36.0) % 33.4 RDW (11.8-14.1) % 12.3 Plt Count (130-400) 10^3/uL 176 MPV (8.0-11.0) fL 9.6 Immature Gran % 0.4 Neutrophils % 90.3 Lymphocytes % 5.3 Monocytes % 3.8 Eosinophils % 0.1 Basophils % 0.1 Nucleated RBC % % 0 Absolute Neutrophils (1.2-6.7) 10^3/uL 8.17 H Absolute Lymphocytes (1.2-3.4) 10^3/uL 0.48 L Absolute Monocytes (0.1-0.8) 10^3/uL 0.34 Absolute Eosinophils (0.0-0.7) 10^3/uL 0.01 Absolute Basophils (0.0-0.2) 10^3/uL 0.01 PT (9.3-11.0) sec 11.8 H INR (0.9-1.1) 1.2 H D-Dimer (<500) ng/mlFEU 5279 H Sodium (136-145) mmol/L Potassium (3.5-5.1) mmol/L Chloride (98-107) mmol/L Carbon Dioxide (21.0-32.0) mmol/L Anion Gap (3-11) mmol/L BUN (7-18) mg/dL Creatinine (0.70-1.30) mg/dL Estimated GFR/1.73 m2 (mL/min/1.73m2) Glucose (74-106) mg/dL Hemoglobin A1c (<5.7) % Calcium (8.5-10.1) mg/dL Phosphorus (2.6-4.7) mg/dL Magnesium (1.8-2.4) mg/dL Ferritin (26-388) ng/mL Total Bilirubin (0.2-1.0) mg/dL Conjugated Bilirubin (0.0-0.2) mg/dL AST (15-37) U/L ALT (16-63) U/L Alkaline Phosphatase (46-116) U/L Lactate Dehydrogenase (85-227) U/L Troponin I (<or=60) ng/L C-Reactive Protein (0.0-0.3) mg/dL NT-Pro-B Natriuret Pep (<300) pg/mL Total Protein (6.4-8.2) g/dL Albumin (3.4-5.0) g/dL 25-OH Vitamin D Total (30-100) ng/mL 34.6 Procalcitonin ng/mL Urine Color (Yellow) Urine Clarity (Clear) Urine pH (5-8) Ur Specific [place] (1.005-1.025) Urine Protein (Negative) mg/dL Urine Ketones (Negative) mg/dL Urine Blood (Negative) Urine Nitrite (Negative) Urine Bilirubin (Negative) Urine Urobilinogen (Up TO 0.2) EU/dL Ur Leukocyte Esterase (Negative) Urine RBC (0-2) HPF Urine WBC (0-5) HPF Ur Epithelial Cells (Negative) HPF Urine Crystals (Negative) HPF Urine Bacteria (Negative) HPF Urine Casts (Negative) LPF Urine Mucus (Negative) Ur Culture Indicated? Urine Glucose (Negative) mg/dL COVID-19 Source SARS-CoV-2 (PCR) Influenza Type A (PCR) (Negative) Influenza Type B (PCR) (Negative) RSV (PCR) (Negative) Add-On Test Request Range/Units 10/04/21 10/05/21 10/05/21 09:41 07:15 07:15 WBC (4.4-10.8) 10^3/uL 16.37 H D RBC (4.36-5.78) 10^6/uL 3.90 L Hgb (13.5-17.5) g/dL 13.2 L Hct (40.0-50.0) % 39.5 L MCV (80-95) fL 101.3 H MCH (27.0-33.0) pg 33.8 H MCHC (32.0-36.0) % 33.4 RDW (11.8-14.1) % 12.4 Plt Count (130-400) 10^3/uL 234 MPV (8.0-11.0) fL 9.6 Immature Gran % 0.9 Neutrophils % 87.9 Lymphocytes % 6.8 Monocytes % 4.2 Eosinophils % 0.1 Basophils % 0.1 Nucleated RBC % % 0 Absolute Neutrophils (1.2-6.7) 10^3/uL 14.39 H Absolute Lymphocytes (1.2-3.4) 10^3/uL 1.11 L Absolute Monocytes (0.1-0.8) 10^3/uL 0.69 Absolute Eosinophils (0.0-0.7) 10^3/uL 0.02 Absolute Basophils (0.0-0.2) 10^3/uL 0.02 PT (9.3-11.0) sec INR (0.9-1.1) D-Dimer (<500) ng/mlFEU Sodium (136-145) mmol/L 133 L Potassium (3.5-5.1) mmol/L 3.6 Chloride (98-107) mmol/L 101 Carbon Dioxide (21.0-32.0) mmol/L 24.6 Anion Gap (3-11) mmol/L 7.4 BUN (7-18) mg/dL 40 H D Creatinine (0.70-1.30) mg/dL 1.9 H Estimated GFR/1.73 m2 (mL/min/1.73m2) 34.19 Glucose (74-106) mg/dL 129 H Hemoglobin A1c (<5.7) % Calcium (8.5-10.1) mg/dL 8.6 Phosphorus (2.6-4.7) mg/dL Magnesium (1.8-2.4) mg/dL Ferritin (26-388) ng/mL Total Bilirubin (0.2-1.0) mg/dL Conjugated Bilirubin (0.0-0.2) mg/dL AST (15-37) U/L ALT (16-63) U/L Alkaline Phosphatase (46-116) U/L Lactate Dehydrogenase (85-227) U/L Troponin I (<or=60) ng/L C-Reactive Protein (0.0-0.3) mg/dL NT-Pro-B Natriuret Pep (<300) pg/mL Total Protein (6.4-8.2) g/dL Albumin (3.4-5.0) g/dL 25-OH Vitamin D Total (30-100) ng/mL Procalcitonin ng/mL Urine Color (Yellow) Urine Clarity (Clear) Urine pH (5-8) Ur Specific [place] (1.005-1.025) Urine Protein (Negative) mg/dL Urine Ketones (Negative) mg/dL Urine Blood (Negative) Urine Nitrite (Negative) Urine Bilirubin (Negative) Urine Urobilinogen (Up TO 0.2) EU/dL Ur Leukocyte Esterase (Negative) Urine RBC (0-2) HPF Urine WBC (0-5) HPF Ur Epithelial Cells (Negative) HPF Urine Crystals (Negative) HPF Urine Bacteria (Negative) HPF Urine Casts (Negative) LPF Urine Mucus (Negative) Ur Culture Indicated? Urine Glucose (Negative) mg/dL COVID-19 Source Nasopharynx SARS-CoV-2 (PCR) Negative Influenza Type A (PCR) (Negative) Influenza Type B (PCR) (Negative) RSV (PCR) (Negative) Add-On Test Request
--- NOTE | 2021-10-05 14:32 | IN_ITS ---
PT Notes Visit Reasons: Acute PE w/ Hypoxia, CHF, ?COVID-19 Inpatient Physical Therapy Evaluation Date: 10/05/21 Referring Doctor: Dr. Nye PT Orders: PT CONSULT: limited ability to ambulate Precautions: standard Patient Profile/Admitting Diagnosis: Patient admitted from ER 10/04/21 after presenting with c/o chest pain and shortness of breath. Diagnosed with exacerbation of CHF, bilat pneumonia, and pulmonary emboli. PMHX: Acute exacerbation of CHF (congestive heart failure) (Acute) SOB (shortness of breath) (Acute) Hypothyroidism (Acute) Polymyalgia rheumatica (Acute) pt. reports he has this not parkinsons Discharge planning issues (Acute) DVT prophylaxis (Acute) Pulmonary emboli (Acute) Bilateral pneumonia (Acute) Sleep apnea (Chronic) PAD (peripheral artery disease) (Chronic) Medical History BPH (benign prostatic hyperplasia) Chronic ethmoidal sinusitis Chronic frontal sinusitis Chronic kidney disease Deviated nasal septum Dilated aortic root E coli bacteremia Fractured rib mid Sept 2018 Kidney stone Lyme disease Nasal septal spur Nasal turbinate hypertrophy Parkinsons pt. states he does not have Pulmonary fat embolism Pyelonephritis due to Escherichia coli Surgical History Hx of colonoscopy Hx of inguinal hernia surgery Hx of total hip arthroplasty right Social History/Home Situation: Patient lives alone in a private home with 3 R[address] drives and is fully independent in all ADLs. Was participating in outpatient PT for various musculoskeletal issues prior to admission. Equipment Owned/DME: none Subjective: Al states that he is still feeling tight in his chest and short of breath when active, which is unusual for him. He states that he is normally very independent. He's been walking around his room on his own since admission. Does not use device at baseline. He denies history of falls. Objective: General Observation: Returning to room with nursing at initiation of session. Patient was observed to be walking independently down the [place] with nursing, approx 200' to shower. IV in RUE. Telemetry in place. Bilat LE edema noted L>R. Mental Status: A&Ox3 Pain: chronic left knee pain ROM: Right Upper Extremity: WFL Left Upper Extremity: WFL Right Lower Extremity: WFL Left Lower Extremity: WFL Strength: Right Upper Extremity: Shoulder flexion 4+/5. Biceps 5/5. [employer] is strong and equal. Left Upper Extremity: Shoulder flexion 4+/5. Biceps 5/5. [employer] is strong and equal. Right Lower Extremity: Hip flexion 5/5. Quads 5/5. Ankle DF 5/5 Left Lower Extremity: Hip flexion 5/5. Quads 5/5. Ankle DF 5/5 Bed Mobility/Transfers: sit - stand: independent stand-sit: independent ADLs: Patient able to don/doff undergarments independently, modified with seated position initially Gait: observed to ambulate independently and without device to shower with nursing Balance: Static Sitting: normal Dynamic Sitting: normal Static Standing: good Dynamic Standing: good 4 Position balance Test: 3/4 (patient is able to single leg stand x 5 seconds only) Special Tests: Mobility Limitations Standardized Measure [facility] 6 clicks Basic Mobility Inpatient Short Form: Raw Score: 24 CMS Score: 0% impairment Informed Consent/Education: Patient instructed in purpose of PT consult and plan of care. Patient was instructed in independent exercise program for completion in seated position. This was written on his white board, with patient able to demonstrate independent completion of each. Includes hourly completion of each of the following for 1 minute: 1. seated march 2. seated kickout 3. punch ups 4. ankle pumps Assessment: Patient is an 81 year old male referred to physical therapy services with the diagnosis of limited ability to ambulate. Patient presents with well maintained balance and mobility during admission for acute medical issues. Due to his advanced age and medical comorbidities, he is at risk for deconditioning during his acute care stay; he'll benefit from completion of independent exercise program, as he demonstrates good safety and independence during evaluation today. He currently demonstrates the following impairment level findings: 1. BARBA with ambulation Impairments are contributing to the following functional limitations: 1. decreased activity tolerance Patient is assessed as Low [id number] based on the following: History: Patient is an 81 year old male admitted for medical management of CHF exacerbation, pulmonary emboli, and bilat pneumonia. He is independent at baseline, and demonstrates good safety and mobility on evaluation today. He was instructed in an HEP to prevent deconditioning during hospitalization, and does not require further PT intervention in acute care setting. Examination: functional limitations as noted above Presentation: evolving due to acute medical issues Decision Making: low complexity Plan of Care/Treatment Plan: No PT intervention required in acute care setting. DISCHARGE RECOMMENDATIONS: Home with services [resume outpatient PT TREATMENT CODE/TIME: 2:10-2:35 ([id number]) Jyotsna Mcclure, PT, DPT [facility]
[2021-10-05] MEDS: Milk of Magnesia 30 ML CUP PO (15:27)
[2021-10-05] MEDS: Docusate Sodium 100 MG CAP PO (15:27)
--- NOTE | 2021-10-05 16:05 | PGE_ITS ---
Date of Service Date of service: 10/05/21 Time of Service: 16:06 Assessment and Plan Assessment and plan (1) Pulmonary emboli: Status: Acute Assessment and plan: Found by CT on anticoagulant U/s negative for DVT (2) Bilateral pneumonia: Status: Acute Assessment and plan: ceftriaxone and doxy day 3 followed by Pulmonology with following recs: - recommend the follow steroid taper: - prednisone 40mg for 7 days, 30mg for 5 days, 20mg for 5 days, 10mg for 3 days, 5mg for 3 days - discontinue both special precautions and remdesivir - continue ceftriazone and doxycycline - recommend sputum sample if able for culture - Mucinex 1200mg bid (3) Acute exacerbation of CHF (congestive heart failure): Status: Acute Assessment and plan: Legs with edema. No jvd. Will wt daily, monitor volume status for now lasix IV BID follow electrolytes and kidney function closely while diuresing Qualifiers: Heart failure type: unspecified Qualified Code(s): I50.9 - Heart failure, unspecified (4) Polymyalgia rheumatica: Status: Acute Assessment and plan: takes prednisone daily, will taper to home dosing as recommended. (5) Hypothyroidism: Status: Acute Assessment and plan: continue thyroid medication Qualifiers: Hypothyroidism type: unspecified Qualified Code(s): E03.9 - Hypothyroidism, unspecified (6) DVT prophylaxis: Status: Acute Assessment and plan: eliquis daily (7) Discharge planning issues: Status: Acute Assessment and plan: home when medically ready discussed with Dr. Nye Subjective Subjective Patient reports: tolerating liquids well, tolerating a regular diet, shortness of breath and afebrile Interval history since last seen: bilateral lower extremity. Exam Const General: cooperative, comfortable, no acute distress and frail appearing (of stated age) Nutritional Appearance: average body habitus Orientation: alert, awake and oriented x3 Eyes General: appearance normal, both eyes and all related structures Neck Neck: no JVD Resp Effort & Inspection: normal respiratory effort Auscultation: crackles bilaterally Cardio Rate: regular rate Rhythm: regular rhythm GI Inspection: normal to inspection Palpation: soft Skin General skin exam: no rashes or lesions noted Neuro General: patient alert, patient awake, patient oriented x3 and no focal motor deficits Cognition: normal cognition Speech: speech normal Motor: muscle tone normal throughout Extrem General: edema Laterality: bilateral Objective Last Vital Signs Temp 36.4 C L 10/05/21 15:57 Pulse 79 10/05/21 15:57 Resp 18 10/05/21 15:57 BP 114/64 10/05/21 15:57 Pulse Ox 95 10/05/21 15:57 Laboratory Results - last 24 hr 10/05/21 10/05/21 07:15 07:15 WBC 16.37 H D RBC 3.90 L Hgb 13.2 L Hct 39.5 L MCV 101.3 H MCH 33.8 H MCHC 33.4 RDW 12.4 Plt Count 234 MPV 9.6 Immature Gran % 0.9 Neutrophils % 87.9 Lymphocytes % 6.8 Monocytes % 4.2 Eosinophils % 0.1 Basophils % 0.1 Nucleated RBC % 0 Absolute Neutrophils 14.39 H Absolute Lymphocytes 1.11 L Absolute Monocytes 0.69 Absolute Eosinophils 0.02 Absolute Basophils 0.02 Sodium 133 L Potassium 3.6 Chloride 101 Carbon Dioxide 24.6 Anion Gap 7.4 BUN 40 H D Creatinine 1.9 H Estimated GFR/1.73 m2 34.19 Glucose 129 H Calcium 8.6 PAWSS Have you Been Recently Intoxicated or Drunk Within the Last 30 days?: No Have you Ever Experienced Previous Episodes of Alcohol Withdrawal?: No Have you ever Experienced Withdrawal Seizures?: No Have you ever Experienced Delirium Tremens(DT)s?: No Have you ever undergone Alcohol Rehabilitation Treatment (i.e, inpt ot outpat ient treatment programs)?: No Have you ever Experienced Blackouts?: No Have you ever Combined Alcohol with other Downers within the last 90 days?: No Have you ever Combined Alcohol with any other Substance of Abuse during the last 90 days?: No Positive Blood Alcohol level on Presentation? [PCS.BAL]: No Evidence of Increased Autonomic Activity (i.e. HR>120, tremor, sweating, agitation, nausea)?: No Result: 0
[2021-10-05] MEDS: Acetaminophen 325 MG TAB PO (18:01)
[2021-10-05] MEDS: Apixaban 5 MG TAB 10 MG PO (20:22)
[2021-10-05] MEDS: Doxycycline Hyclate 100 MG CAP PO (20:22)
[2021-10-05] MEDS: guaiFENesin 600 MG TABCR 1200 MG PO (20:22)
[2021-10-05] MEDS: cefTRIAXone 1 GM/50 ML BAG IVPB (20:23)
[2021-10-05] MEDS: rOPINIRole 1 MG TAB 2 MG PO (22:12)
[2021-10-06 03:02] VITALS: BP 124/74; PULSE 60; RESP 17; TEMP 35.3; O2SAT 95
[2021-10-06] MEDS: Levothyroxine 75 MCG TAB PO (05:48)
[2021-10-06 07:00] VITALS: PULSE 78
[2021-10-06 07:50] LABS: Abs Immature Grans 0.12 10^3/uL (0.0-0.06); Absolute Basophil Count 0.01 10^3/uL (0.0-0.2); Absolute Monocyte Count 0.65 10^3/uL (0.1-0.8); Basophils % 0.1; HGB 12.7 g/dL (13.5-17.5); Immature Grans % 0.9; Lymphocytes % 5.3; MCH 33.5 pg (27.0-33.0); MCHC 33.4 % (32.0-36.0); MCV 100.3 fL (80-95); MPV 9.6 fL (8.0-11.0); Monocytes % 4.9; Neutrophils % 88.8; Nucleated RBC 0 %; Platelet Count 260 10^3/uL (130-400); RBC 3.79 10^6/uL (4.36-5.78); RDW 12.6 % (11.8-14.1); RDW-SD 46.3 fL; WBC 13.29 10^3/uL (4.4-10.8)
[2021-10-06 08:00] LABS: Anion Gap 10.8 mmol/L (3-11); BUN 55 mg/dL (7-18); CO2 25.2 mmol/L (21.0-32.0); CREATININE 1.8 mg/dL (0.70-1.30); Chloride 100 mmol/L (98-107); Estimated GFR 36.39 (mL/min/1.73m2); Glucose 105 mg/dL (74-106); Potassium 4.2 mmol/L (3.5-5.1); Sodium 136 mmol/L (136-145)
[2021-10-06] MEDS: Normal Saline Flush 10 ML SYR IVP (08:46)
[2021-10-06] MEDS: Furosemide 20 MG/2 ML VIAL IVP (08:47)
[2021-10-06] MEDS: Tamsulosin 0.4 MG CAPCR 0.8 MG PO (08:47)
[2021-10-06] MEDS: Losartan 50 MG TAB 75 MG PO (08:48)
[2021-10-06] MEDS: Doxycycline Hyclate 100 MG CAP PO (08:48)
[2021-10-06] MEDS: Apixaban 5 MG TAB 10 MG PO (08:48)
[2021-10-06] MEDS: Montelukast 10 MG TAB PO (08:48)
[2021-10-06] MEDS: guaiFENesin 600 MG TABCR 1200 MG PO (08:48)
[2021-10-06] MEDS: Sertraline 25 MG TAB PO (08:50)
[2021-10-06] MEDS: predniSONE 20 MG TAB 40 MG PO (08:51)
[2021-10-06] MEDS: Finasteride 5 MG TAB PO (08:51)
[2021-10-06 11:30] VITALS: BP 120/72; PULSE 62; RESP 17; TEMP 36.3; O2SAT 100
--- NOTE | 2021-10-06 14:38 | DSE_ITS ---
Date of service: 10/06/21 Time of Service: 14:38 DS: Diagnosis Discharge Diagnosis (1) Pulmonary emboli: Start date: 10/06/21 Start time: 14:44 Status: Acute Asessment and Plan: Patient doing much better no longer needing oxygen shown to have Extensive bilateral pulmonary emboli by CT. Switched to apixaban from enoxaparin. [facility] at [facility] time they are not opened. 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 Will also supply a 30 day card for free dosing. Unsure of cost at this time as we are unable to reach pharmacy. Did discuss with patient that he will be able to change to other modalities if cost is high, he will be following up with his PCP and pulmonary. He is agreeable to plan at this time. (2) Bilateral pneumonia: Start date: 10/06/21 Start time: 14:48 Status: Acute Asessment and Plan: Extensive bilateral pulmonary emboli which are suspicious for Covid-19 pneumonia..In addition, there are acute pulmonary emboli in right upper lobe pulmonary arteries. Remainder of the pulmonary arteries appear spared without obvious intraluminal filling defects at this time. No large pleural effusions. Trace pleural fluid bilaterally. He tested negative twice and was taken off precautions. Blood cultures were negative. He has been on ceftriaxone and doxy. Will switch him to cefpodxime and doxy. Continue mucinex and prednisone taper (3) Acute exacerbation of CHF (congestive heart failure): Start date: 10/06/21 Start time: 14:50 Status: Acute Asessment and Plan: He has been on IV lasix he was originally on 20 at home. Echo reveals: Conclusion Left Ventricle : The left ventricle is normal size. The left ventricular ejection fraction is within the normal range. There is normal left ventricular wall thickness. There is normal LV segmental wall motion. The left ventricular diastolic function is normal. LVEF is 55%. Right Ventricle : Right ventricle is not well visualized. Right ventricular systolic function could not be assessed. Atria : The left atrium size is normal. The right atrium size is normal. Mitral Valve : The mitral valve is normal in structure. Mild mitral regurgitation. No evidence of mitral valve stenosis. Great Vessels : Aortic root is mildly dilated. The ascending aorta is dilated (4.8cm). The IVC was not visualized. Will increase lasix to 40 mg daily. Encourage daily wts. (4) Polymyalgia rheumatica: Start date: 10/06/21 Start time: 14:53 Status: Acute Asessment and Plan: Continue regular prednisone dosing after taper (5) Hypothyroidism: Start date: 10/06/21 Start time: 14:54 Status: Acute Asessment and Plan: continue thyroid medication discussed with Dr. Reinoso Discharge Plan Disposition Patient Disposition: HOME Condition: Stable Discharge Details Reason For Visit: Acute PE w/ Hypoxia, CHF, ?COVID-19 Admit Date/Time: 10/03/21 14:21 Admit Provider: Rajwinder Nye Attending Provider: Rajwinder Nye Primary Care Provider: Ana Wilkes Hospital Course Hospital Course: 81 y.o male with PMH of PAD, CHF, SOB PMR presented to [facility] for c/o intermittent CP x 2 weeks with SOB that gets worse with excretion. He also reported worsening fatigue. In the ED he did have hypoxia at 89% t 91. Labs in the ED revealed mag level of 1.6 lactate dehydrogenase of 300, BNP of 1854, procal 0.2, but most concerning was is his CT scan Extensive bilateral pulmonary emboli which are suspicious for Covid-19 pneumonia..In addition, there are acute pulmonary emboli in right upper lobe pulmonary arteries. Remainder of the pulmonary arteries appear spared without obvious intraluminal filling defects at this time. No large pleural effusions. Trace pleural fluid bilaterally. He was shown to have pulmonary emboli with possible COVID 19 pneumonia. He was asked to be admitted for further management. Over course of hospitalization he tested negative twice for COVID and was taken off of precautions. he was weaned off oxygen. He was diuresed for CHF. Echo done (see dx for results). He was switched from enoxaparin to apixaban for his PE. His pneumonia was treated with ceftriaxone and doxy. He is on steroids and feeling better. He worked with PT and saw palliative while in the hospital. He now feels well enough to go home. He will be discharged on cefpdoxime and doxy with a steroid taper. Mucinex, apixaban, f/u with PCP in 1 week and f/u with Dr. Rodrigues in clinic as planned. Home Meds and New Rx's Prescriptions: New Eliquis DVT-PE Treat 30D Start 5 mg (74 tabs) tablets,dose pack 5 mg PO ONCE Qty: 72 RF: 0 Eliquis DVT-PE Treat 30D Start 5 mg (74 tabs) tablets,dose pack 5 mg PO ONCE Qty: 72 RF: 0 cefpodoxime 200 mg tablet 200 mg PO BID Qty: 20 RF: 0 doxycycline hyclate 100 mg capsule 100 mg PO BID Qty: 10 RF: 0 Mucinex 1,200 mg tablet extended release 12hr 1,200 mg PO BID Qty: 20 RF: 0 prednisone 10 mg tablet 10 mg PO DAILY Qty: 56 RF: 0 Bio-K plus 50 billion cell capsule,delayed release(DR/EC) 1 cap PO DAILY Qty: 30 RF: 0 furosemide 40 mg tablet 40 mg PO DAILY Qty: 30 RF: 0 pantoprazole [Protonix] 40 mg tablet,delayed release (DR/EC) 40 mg PO DAILY Qty: 30 RF: 0 Continued nitroglycerin [Nitrostat] 0.4 mg tablet, sublingual 0.4 mg SL Q5-15M PRNRF: 0 ipratropium-albuterol 0.5 mg-3 mg(2.5 mg base)/3 mL solution for nebulization 3 ml IH Q6H PRNRF: 0 albuterol sulfate [ProAir HFA] 90 mcg/actuation HFA aerosol inhaler 2 puff IH Q6H PRNRF: 0 losartan 50 mg tablet 75 mg PO DAILY RF: 0 levothyroxine 75 MCG tablet 75 mcg PO DAILY RF: 0 ropinirole 2 MG tablet 2 mg PO HS RF: 0 acetaminophen [Tylenol Extra Strength] 500 mg Tablet 1,000 mg PO Q4H PRNRF: 0 prednisone 5 mg tablet 5 mg PO DAILY RF: 0 tramadol 50 mg tablet 50 mg PO BID PRN PRNRF: 0 sertraline 25 mg tablet 25 mg PO DAILY RF: 0 montelukast 10 mg tablet 10 mg PO DAILY RF: 0 finasteride 5 mg tablet 5 mg PO DAILY RF: 0 tamsulosin 0.4 mg Capsule 0.8 mg PO DAILY Qty: 60 RF: 0 Discontinued furosemide [Lasix] 20 mg tablet 20 mg PO DAILY PRNRF: 0 ibuprofen 200 mg Tablet 400 mg PO PRN PRNRF: 0 acidophilus-pectin, citrus 25 million cell -100 mg Tablet See Rx Instructions .ROUTE .COMPLEX Qty: 30 RF: 0 Discharge Instructions Instructions: Apixaban (By mouth), Pulmonary Embolism (DC), How Your Lungs Work (DC), Left-sided and Right-sided Heart Failure (DC) Additional Instructions: * Take apixaban 10 mg twice a day for only 6 more days then switch to 5 mg twice a day. * You have been placed on a steroid taper, finish the steroid taper then resume your 5 mg a day dosing of prednisone * You should take protonix every day since you are on apixaban and prednisone to coat your stomach to prevent ulcers * DO NOT take ibuprofen or NSAIDs while on blood thinners you can tylenol and tramadol * Your lasix has been increased to 40 mg daily. I recommend you take around 2 pm daily, if this does not work you can find a time that does to allow you to not be up all night using the bathroom and still be able to do activities through out the day without having to use the bathroom. * Weight yourself daily. If you have greater than a 2-3 lb wt gain in 24 hours call your primary provider. * Continue your antibiotics but take the probiotic for at least 30 days following * Follow up with Dr. Rodrigues as planned as well * Resume HH services Stand Alone Forms: Nursing Discharge Form Activity:: Activity as Tolerated Equipment/Supplies:: No Equipment Needed Diet:: Low Sodium Discharge Orders Discharge Orders: Discharge Order (Routine); Ordered 10/06/21 Ordered By: Astrid Orourke DS: Summary Time Spent with Patient providing and/or coordinating discharge services: Greater than 30 minutes Status at Discharge Functional status at discharge: independent ambulation Overall status at discharge: patient is progressing back to baseline Mental Status: mental status grossly normal Speech and Movement: speech and movement normal Mood: congruent mood Affect: normal affect Exam Const General: cooperative, comfortable, no acute distress and frail appearing (of stated age) Nutritional Appearance: average body habitus Orientation: alert, awake and oriented x3 Eyes General: appearance normal, both eyes and all related structures Neck Neck: no JVD Resp Effort & Inspection: normal respiratory effort Auscultation: crackles (to bases of lungs only. Likely cardiac ) Cardio Rate: regular rate Rhythm: regular rhythm GI Inspection: normal to inspection Palpation: soft Skin General skin exam: no rashes or lesions noted Neuro General: patient alert, patient awake, patient oriented x3 and no focal motor deficits Cognition: normal cognition Speech: speech normal Motor: muscle tone normal throughout Extrem General: normal to inspection Psych Mental Status: mental status grossly normal Speech and Movement: speech and movement normal Mood: congruent mood Affect: normal affect DS: Data Vitals/I&O Vitals and I&O: Vital Signs Temperature 36.3 C L 10/06/21 11:30 Temperature Source Tympanic 10/06/21 11:30 Pulse 62 10/06/21 11:30 Pulse Rhythm Irregular 10/06/21 07:32 Pulse 90 10/03/21 14:31 Respiratory Rate 17 10/06/21 11:30 Respiratory Effort Non-Labored 10/06/21 07:32 Respiratory Depth Normal 10/06/21 07:32 Respiratory Pattern Normal 10/06/21 07:32 Blood Pressure 120/72 10/06/21 11:30 Blood Pressure Mean 92 10/03/21 14:31 Blood Pressure Position Supine 10/03/21 11:14 Pulse Oximetry 100 10/06/21 11:30 Oxygen Delivery Method Room Air 10/06/21 11:30 Oxygen Flow Rate 0 10/06/21 11:30 Pain Level 0 10/05/21 23:10 Comment 10/05/21 11:39 Intake & Output 10/05/21 10/06/21 10/06/21 23:59 11:59 23:59 Intake Total 100 / 200 Output Total 900 / 1700 1350 / 1350 Balance -800 / -1500 -1350 / -1350 Weight 93.1 kg Intake: IV 100 / 200 Output: Urine 900 / 1700 1350 / 1350 Other: Urine Color Yellow Yellow Urine Appearance Clear Cloudy Urine Odor Normal Normal Voiding Methods Urinal Urinal Data Completed and Pending Completed studies during hospitalization [Text1]: Conclusion Left Ventricle : The left ventricle is normal size. The left ventricular ejection fraction is within the normal range. There is normal left ventricular wall thickness. There is normal LV segmental wall motion. The left ventricular diastolic function is normal. LVEF is 55%. Right Ventricle : Right ventricle is not well visualized. Right ventricular systolic function could not be assessed. Atria : The left atrium size is normal. The right atrium size is normal. Mitral Valve : The mitral valve is normal in structure. Mild mitral regurgitation. No evidence of mitral valve stenosis. Great Vessels : Aortic root is mildly dilated. The ascending aorta is dilated (4.8cm). The IVC was not visualized. See remainder of study for further details Exam(s) a CT:CT chest PE CTA Exam(s) CT CHEST PE CTA EXAM: CT CHEST PE CTA CLINICAL HISTORY: Chest Pain, SOB. TECHNIQUE: Imaging Protocol: CT angiography of the chest was performed using pulmonary embolus protocol. Multi planar reconstructions were performed. CONTRAST MATERIAL: Intravenous: Omnipaque 350 Contrast volume: 100 cc COMPARISON: CT CT ABDOMEN PELVIS WO from 08/27/2021 CR XR PORTABLE CHEST AP from 10/03/2021 FINDINGS: CHEST: PULMONARY ARTERIES: There are intraluminal filling defects in right upper lobe pulmonary arteries consistent with acute pulmonary emboli. Relative sparing of the remainder of the right lung pulmonary arteries and left pulmonary arteries. LUNGS: There are now extensive bilateral pulmonary infiltrates, most prominent in the upper lung zones and suspicious for Covid-19 pneumonia. Milder infiltrate also noted in the lower lobes. Trace pleural fluid bilateral . MEDIASTINUM: No gross hilar nor mediastinal adenopathy visualized thyroid unremarkable. CARDIAC: Cardiomegaly. No pericardial effusion. No significant shift of the interventricular septum at this time. Diameter of the ascending thoracic aorta is enlarged measuring 4.5 cm. There is no dissection. Diameter of the mid aortic arch is 3.1 cm. Diameter of the proximal descending thoracic aorta is 3.9 cm. Diameter of the mid descending thoracic aorta is 3.4 cm. PARTIALLY VISUALIZED UPPERMOST ABDOMEN: No obvious findings OSSEOUS: No significant osseous lesions.. IMPRESSION: 1. Extensive bilateral pulmonary emboli which are suspicious for Covid-19 pneumonia..In addition, there are acute pulmonary emboli in right upper lobe pulmonary arteries. Remainder of the pulmonary arteries appear spared without obvious intraluminal filling defects at this time. No large pleural effusions. Trace pleural fluid bilaterally. Exam(s) XR PORTABLE CHEST AP EXAM: XR PORTABLE CHEST AP CLINICAL HISTORY: PUI, SOB. TECHNIQUE: 2D digital imaging was performed. COMPARISON: CR XR PORTABLE CHEST AP from 08/27/2021 FINDINGS: Chest leads in place. Heart size upper normal, unchanged. Tortuous descending thoracic aorta is unchanged. Patchy bilateral infiltrates have increased from the prior study. No pleural effusions. No pneumothorax. IMPRESSION: Increased bilateral patchy infiltrates.No obvious pleural effusions. FINDINGS: There is no evidence of intraluminal thrombus and there is normal compression and augmentation demonstrated within the common femoral veins, femoral veins, and popliteal veins of both lower extremities. In the calves the interrogated veins also exhibit normal compression/ augmentation properties. The greater saphenous veins also appear patent as do the saphenofemoral junctions bilaterally.. IMPRESSION: 1. No ultrasound evidence of DVT in either lower extremity. Labs on day of discharge: Labs from last 24 hours 10/06/21 10/06/21 07:39 07:39 WBC 13.29 H RBC 3.79 L Hgb 12.7 L Hct 38.0 L MCV 100.3 H MCH 33.5 H MCHC 33.4 RDW 12.6 Plt Count 260 MPV 9.6 Immature Gran % 0.9 Neutrophils % 88.8 Lymphocytes % 5.3 Monocytes % 4.9 Eosinophils % 0.0 Basophils % 0.1 Nucleated RBC % 0 Absolute Neutrophils 11.80 H Absolute Lymphocytes 0.70 L Absolute Monocytes 0.65 Absolute Eosinophils 0.00 Absolute Basophils 0.01 Sodium 136 Potassium 4.2 Chloride 100 Carbon Dioxide 25.2 Anion Gap 10.8 BUN 55 H D Creatinine 1.8 H Estimated GFR/1.73 m2 36.39 Glucose 105 Calcium 9.0 Preliminary micro results at discharge 10/03/21 15:25 Blood Culture - Preliminary Blood NO GROWTH 48 HOURS 10/03/21 14:35 Blood Culture - Preliminary Blood NO GROWTH 48 HOURS PFSH All Active Problems Acute exacerbation of CHF (congestive heart failure) (Acute) SOB (shortness of breath) (Acute) Hypothyroidism (Acute) Polymyalgia rheumatica (Acute) pt. reports he has this not parkinsons Discharge planning issues (Acute) DVT prophylaxis (Acute) Pulmonary emboli (Acute) Bilateral pneumonia (Acute) Sleep apnea (Chronic) PAD (peripheral artery disease) (Chronic) Medical History BPH (benign prostatic hyperplasia) Chronic ethmoidal sinusitis Chronic frontal sinusitis Chronic kidney disease Deviated nasal septum Dilated aortic root E coli bacteremia Fractured rib mid Sept 2019 Kidney stone Lyme disease Nasal septal spur Nasal turbinate hypertrophy Parkinsons pt. states he does not have Pulmonary fat embolism Pyelonephritis due to Escherichia coli Surgical History Hx of colonoscopy Hx of inguinal hernia surgery Hx of total hip arthroplasty right Social History Smoking/Tobacco Use Status: Former Tobacco Use Quit Date: 09/08/81 Smoking risk assessment performed?: Yes Alcohol Intake: current Alcohol Intake frequency: 0-2 drinks per day Alcohol type: beer and hard liquor Drug use: Never Substance use type: does not use Do you feel safe at home: Yes Do you feel safe in your relationship?: Yes Additional Social history: Abby Mark alfarotbor/friend [phone]
[2021-10-06] MEDS: Furosemide 40 MG TAB PO (14:53)
--- NOTE | 2021-10-06 17:22 | PDOC.CMDIS ---
- If Service Date Differs Date of service: 10/06/21 Time of Service: 17:22 LACE Index Scoring Tool - Questions: Length of Stay (in days): 3 Acuity (Admit via E.D.?): Yes Comorbidities: Congestive Heart Failure, Liver or Renal Disease E.D. Visits: 2 - Answers: Total Score: 13 Risk of Readmission: High Risk Care Management Discharge Reason for Hospitalization: R/O Covid pneumonia Discharge Plan: Wilfrido returned home today with no new services. He was not able to picker / packer his medications at his regular pharmacy, as it is closed for the weekend. was able to locate his pharmacy coverage on medicare.gov, as requested by Wilfrido, to send to [facility] for his prescriptions to be filled. His sister drove him home via private vehicle. He will follow up with his PCP and discharge plan of care. Patient/Family Education Needs: Review discharge instructions and limitations, discussion of self care needs including ask me three.
== END 2021-10-06 15:43 | disposition home or self-care (01) | DRG 175 ==
LOC: ER 14:20 → MS 15:40
PROVIDERS: Nurse Practitioner Acute Care; Nurse Practitioner Family; Admitting Provider Internal Medicine; Emergency Provider Registered Nurse Emergency; PCP Nurse Practitioner Family; Visit Provider Internal Medicine
DX: J18.9 Pneumonia, unspecified organism; I26.99 Other pulmonary embolism without acute cor pulmonale; I50.9 Heart failure, unspecified; E03.9 Hypothyroidism, unspecified; M35.3 Polymyalgia rheumatica; I73.9 Peripheral vascular disease, unspecified; G47.30 Sleep apnea, unspecified; N18.9 Chronic kidney disease, unspecified; N40.0 Benign prostatic hyperplasia without lower urinary tract symptoms; R09.02 Hypoxemia
CPT/HCPCS: 36415; 71275; 80048; 80053; 80076; 82306; 84145; 87040; 87635; 87637; 93005; 93306; 94640; 96374; 96375; 97161; 99285; 71045; 81003; 81015; 82728; 83036; 83615; 83735; 83880; 84100; 84484; 85025; 85379; 85610; 86140; 93010; 93970; 99223; 99232; 99233; 99239; J0248; J0696; J1650; J1940; J1941; J2930; J3475; J3490; J7512; J7620; J8540

== ENCOUNTER 2021-10-23 19:02 | Outpatient (REF) | payer MEDICARE, SELFPAY ==
[2021-10-25 14:24] LABS: COVID-19 RT-PCR UVMMC Result Negative (Negative)
== END 2021-10-23 19:03 | disposition home or self-care (01) ==
LOC: NCHCN 19:02
PROVIDERS: PCP Nurse Practitioner Family; Visit Provider Nurse Practitioner Family
DX: Z20.822 Contact with and (suspected) exposure to COVID-19 (principal)
CPT/HCPCS: U0003

== ENCOUNTER 2021-10-24 16:40 | Inpatient (IN) | payer MEDICARE, SELFPAY ==
[2021-10-24] VITALS (10 sets, daily range): BP systolic 121–155; BP diastolic 57–118; PULSE 84–95; RESP 12–25; TEMP 36.5–37.2; O2SAT 94–100
--- NOTE | 2021-10-24 16:30 | RT.EKG_ITS ---
APPROVED REPORT Exam: Resting ECG Reason for Exam: history of PE Patient Location: E HR:86 bpm ECG Measurements Heart Rate 86 AXIS AK 150 P 34 QRSd 111 QRS -43 QT 363 T 91 QTc 439 Conclusion Sinus rhythm...normal P axis, V-rate 60- 99 Multiple ventricular premature complexes...V complexes w/ short R-R intervls Left anterior fascicular block...axis(240,-40), init forces inf Left ventricular hypertrophy...multiple voltage criteria ST elevation, consider inferior injury...ST >0.08mV, II III aVF. Sinus. PVCs. LAFB. No STEMI. I have reviewed and interpreted ECG and agree with software generated interpretation.
--- NOTE | 2021-10-24 16:42 | W.ED.GENAD ---
Discharge Plan Disposition Patient Disposition: [facility] INPATIENT Condition: Stable Discharge Details Clinical Impression: Pneumonia, History of pulmonary embolism Admit Date/Time: 10/24/21 18:34 Admit Provider: Eliseo Marie Attending Provider: Eliseo Marie Primary Care Provider: Ana Wilkes ED Provider: Rebecca Crum Discharge Data Discharge Date/Time-TO BE ENTERED AT DEPARTURE: 10/24/21 19:48 Medical Decision Making 81-year-old male with a history of CHF, polymyalgia rheumatica on chronic steroids and CKD admitted here last month for bilateral PE on Eliquis and pneumonia who presents for persistent headache, dizziness, feeling feverish, nausea, cough with green sputum, and 4 pound weight gain in the last 2 days. Temp 99 rectal here. Vitals within normal limits. He has no complaint of shortness of breath and is taking Eliquis so do not suspect acute on chronic PE. His lungs are clear bilaterally. He has no lower extremity edema. He has complaint of headache but denies any neck pain and is oriented x3. He has no meningeal signs. Differential diagnosis includes COVID, pneumonia, UTI, flu, CHF, dehydration, electrolyte abnormality. History and presentation does not appear consistent with CVA or meningitis. Will place an IV, bolus IV fluids, screening labs, portable chest x-ray and give IV Tylenol and reassess. Labs and imaging reviewed. White blood cell count 11.13. Lactate 2.2. Troponin negative. BNP 658. Procalcitonin 0.2. Urinalysis notes blood but no evidence of infection. COVID, flu, RSV negative. Chest x-ray reviewed and notes persistent pneumonia unchanged from last chest x-ray on recent admission. Considering patient's age, comorbidities, recurrent symptoms and persistent pneumonia on xray, will admit for continued monitoring and IV antibiotics. Case discussed with hospitalist who accepts patient for admission. Will order IV Vancomycin and Cefepime. Patient reassessed and his headache is improved. Presentation does not appear consistent with meningitis at this time but will continue to monitor. Patient is now eating and is agreeable with plan for admission. Medical Records Medical records reviewed: Yes I reviewed the patient's medical records. Imaging Data Radiologic Study: Radiologist's impression: XR Chest Exam date and time: 10/24/2021 5:10 PM Age: 81 years old Clinical indication: Cough TECHNIQUE: Imaging protocol: XR of the chest. Views: 1 view. COMPARISON: CR XR PORTABLE CHEST AP 10/03/2021 11:51 AM FINDINGS: Lungs:? Indistinct patchy bilateral infiltrates are again identified without significant interval change.? Pleural spaces: No pneumothorax or pleural effusion detected. Heart/Mediastinum:? Cardiomediastinal silhouette is stable.? Bones/joints: No acute osseous lesions are detected.? IMPRESSION: Indistinct patchy bilateral infiltrates without significant interval change. CT Head Without Contrast Exam date and time: 10/26/2021 1:31 PM Age: 81 years old Clinical indication: Dizziness TECHNIQUE: Imaging protocol: Computed tomography of the head without contrast. Total images: 1110 COMPARISON: CT SINUS WO 08/03/2021 10:31 AM FINDINGS: Brain: Mild atrophy and white matter disease.? No hemorrhage, edema or mass effect.? Cerebral ventricles: No hydrocephalus. Basal cisterns are patent.? Paranasal sinuses: No mucosal thickening or fluid levels. Mastoid air cells: Mastoid air cells are clear. Orbital cavity: Unremarkable. Bones/joints: No significant bony abnormality. No fracture. Soft tissues: Unremarkable. IMPRESSION: No acute intracranial abnormality. Lab Data Lab results reviewed: Yes I reviewed the patient's lab results. Labs: 10/24/21 18:55 Nose MRSA Screen - Pending 10/24/21 17:39 Blood Blood Culture - Pending 10/24/21 17:30 Blood Blood Culture - Pending Laboratory Tests Range/Units 10/24/21 10/24/21 10/24/21 16:55 16:55 16:55 WBC (4.4-10.8) 10^3/uL 11.13 H RBC (4.36-5.78) 10^6/uL 3.91 L Hgb (13.5-17.5) g/dL 13.1 L Hct (40.0-50.0) % 39.0 L MCV (80-95) fL 99.7 H MCH (27.0-33.0) pg 33.5 H MCHC (32.0-36.0) % 33.6 RDW (11.8-14.1) % 12.4 Plt Count (130-400) 10^3/uL 133 D MPV (8.0-11.0) fL 10.0 Immature Gran % 2.3 Neutrophils % 89.6 Lymphocytes % 2.8 Monocytes % 4.9 Eosinophils % 0.2 Basophils % 0.2 Nucleated RBC % % 0 Absolute Neutrophils (1.2-6.7) 10^3/uL 9.97 H Absolute Lymphocytes (1.2-3.4) 10^3/uL 0.31 L Absolute Monocytes (0.1-0.8) 10^3/uL 0.55 Absolute Eosinophils (0.0-0.7) 10^3/uL 0.02 Absolute Basophils (0.0-0.2) 10^3/uL 0.02 VBG Lactate (0.6-1.4) mmol/L Sodium (136-145) mmol/L 135 L Potassium (3.5-5.1) mmol/L 4.1 Chloride (98-107) mmol/L 99 Carbon Dioxide (21.0-32.0) mmol/L 31.1 Anion Gap (3-11) mmol/L 4.9 BUN (7-18) mg/dL 30 H Creatinine (0.70-1.30) mg/dL 1.7 H Estimated GFR/1.73 m2 (mL/min/1.73m2) 38.88 Glucose (74-106) mg/dL 107 H Calcium (8.5-10.1) mg/dL 8.2 L Magnesium (1.8-2.4) mg/dL 1.8 Total Bilirubin (0.2-1.0) mg/dL 0.8 AST (15-37) U/L 20 ALT (16-63) U/L 18 Alkaline Phosphatase (46-116) U/L 47 Troponin I (<or=60) ng/L < 50 NT-Pro-B Natriuret Pep (<300) pg/mL 658 H Total Protein (6.4-8.2) g/dL 5.9 L Albumin (3.4-5.0) g/dL 3.0 L Procalcitonin ng/mL Urine Color (Yellow) Urine Clarity (Clear) Urine pH (5-8) Ur Specific [place] (1.005-1.025) Urine Protein (Negative) mg/dL Urine Ketones (Negative) mg/dL Urine Blood (Negative) Urine Nitrite (Negative) Urine Bilirubin (Negative) Urine Urobilinogen (Up TO 0.2) EU/dL Ur Leukocyte Esterase (Negative) Urine RBC (0-2) HPF Urine WBC (0-5) HPF Ur Epithelial Cells (Negative) HPF Urine Crystals (Negative) HPF Urine Bacteria (Negative) HPF Urine Casts (Negative) LPF Urine Mucus (Negative) Ur Culture Indicated? Urine Glucose (Negative) mg/dL COVID-19 Source Nasal/Nares SARS-CoV-2 (PCR) (Negative) Negative Influenza Type A (PCR) (Negative) Negative Influenza Type B (PCR) (Negative) Negative RSV (PCR) (Negative) Negative Range/Units 10/24/21 10/24/21 10/24/21 17:12 17:12 17:20 WBC (4.4-10.8) 10^3/uL RBC (4.36-5.78) 10^6/uL Hgb (13.5-17.5) g/dL Hct (40.0-50.0) % MCV (80-95) fL MCH (27.0-33.0) pg MCHC (32.0-36.0) % RDW (11.8-14.1) % Plt Count (130-400) 10^3/uL MPV (8.0-11.0) fL Immature Gran % Neutrophils % Lymphocytes % Monocytes % Eosinophils % Basophils % Nucleated RBC % % Absolute Neutrophils (1.2-6.7) 10^3/uL Absolute Lymphocytes (1.2-3.4) 10^3/uL Absolute Monocytes (0.1-0.8) 10^3/uL Absolute Eosinophils (0.0-0.7) 10^3/uL Absolute Basophils (0.0-0.2) 10^3/uL VBG Lactate (0.6-1.4) mmol/L 2.2 H* Sodium (136-145) mmol/L Potassium (3.5-5.1) mmol/L Chloride (98-107) mmol/L Carbon Dioxide (21.0-32.0) mmol/L Anion Gap (3-11) mmol/L BUN (7-18) mg/dL Creatinine (0.70-1.30) mg/dL Estimated GFR/1.73 m2 (mL/min/1.73m2) Glucose (74-106) mg/dL Calcium (8.5-10.1) mg/dL Magnesium (1.8-2.4) mg/dL Total Bilirubin (0.2-1.0) mg/dL AST (15-37) U/L ALT (16-63) U/L Alkaline Phosphatase (46-116) U/L Troponin I (<or=60) ng/L NT-Pro-B Natriuret Pep (<300) pg/mL Total Protein (6.4-8.2) g/dL Albumin (3.4-5.0) g/dL Procalcitonin ng/mL 0.2 Urine Color (Yellow) Yellow Urine Clarity (Clear) Clear Urine pH (5-8) 6.0 Ur Specific [place] (1.005-1.025) 1.015 Urine Protein (Negative) mg/dL Negative Urine Ketones (Negative) mg/dL Negative Urine Blood (Negative) Moderate H Urine Nitrite (Negative) Negative Urine Bilirubin (Negative) Negative Urine Urobilinogen (Up TO 0.2) EU/dL 0.2 Ur Leukocyte Esterase (Negative) Negative Urine RBC (0-2) HPF >50 H Urine WBC (0-5) HPF 0-2 Ur Epithelial Cells (Negative) HPF Few Urine Crystals (Negative) HPF Negative Urine Bacteria (Negative) HPF Negative Urine Casts (Negative) LPF Negative Urine Mucus (Negative) Trace Ur Culture Indicated? No Urine Glucose (Negative) mg/dL Negative COVID-19 Source SARS-CoV-2 (PCR) (Negative) Influenza Type A (PCR) (Negative) Influenza Type B (PCR) (Negative) RSV (PCR) (Negative) ECG Data Attestation: I personally reviewed and interpreted this ECG (s) as follows: Interpretation: Rate of 86, sinus, PVCs, left anterior fascicular block, no STEMI, no significant change from previous EKG, nondiagnostic. HPI General Mode of arrival: EMS. Date/Time Provider Initiated Documentation: 10/24/21 16:52. Limitations to Documentation: no limitations. Information obtained by: patient. HPI Narrative: Pt is a 81yo M w/ a history of CHF, polymyalgia rheumatica on chronic steroids and CKD admitted here last month for bilateral PE on Eliquis and pneumonia who presents for persistent headache, dizziness, feeling feverish, nausea, cough with green sputum, and 4 pound weight gain in the last 2 days. He states he never fully recovered after his recent admission and states his symptoms have been persistent and now worsening. He states he finished his antibiotics from his recent admission. Patient states his headache is diffuse. He denies any significant neck pain. Patient states he lives at home alone. He states he has been eating and drinking but slightly less than usual. Patient denies any chest pain, shortness of breath, abdominal pain, vomiting, diarrhea or urinary symptoms. EMS reported a temp of 101.1. Patient states he had a temp of 99 at home this morning. He states he did not take any Tylenol or ibuprofen today. Related Data Home Medications Medication Instructions Recorded Confirmed levothyroxine 75 mcg tablet 75 mcg PO DAILY 12/03/16 10/24/21 ropinirole 2 mg tablet 2 mg PO HS 12/03/16 10/24/21 acetaminophen 500 mg tablet 1,000 mg PO Q4H PRN 06/30/19 10/25/21 (Tylenol Extra Strength) albuterol sulfate 90 mcg/actuation 2 puff IH Q6H PRN 07/30/19 10/24/21 aerosol inhaler (ProAir HFA) losartan 50 mg tablet 75 mg PO DAILY 07/30/19 10/25/21 nitroglycerin 0.4 mg sublingual 0.4 mg SL Q5-15M PRN 07/30/19 10/24/21 tablet (Nitrostat) finasteride 5 mg tablet 5 mg PO DAILY 08/27/21 10/24/21 prednisone 5 mg tablet 5 mg PO DAILY 08/27/21 10/24/21 sertraline 25 mg tablet 25 mg PO DAILY 08/27/21 10/24/21 furosemide 40 mg tablet 40 mg PO DAILY #30 tab 10/06/21 10/24/21 guaifenesin 1,200 mg tablet, 1,200 mg PO BID #20 tab 10/06/21 10/24/21 extended release 12 hr (Mucinex) pantoprazole 40 mg tablet,delayed 40 mg PO DAILY #30 tab 10/06/21 10/24/21 release (Protonix) prednisone 10 mg tablet 10 mg PO DAILY #56 tab 10/06/21 10/24/21 L. acidophilus,casei,rhamnosus 50 1 cap PO DAILY 10/24/21 10/24/21 billion cell capsule,delayed release (Bio-K plus) apixaban 5 mg (74 tabs) tablets in 5 mg PO BID 10/24/21 10/25/21 a dose pack ([employer] DVT-PE Treat 30D Start) biotin 10,000 mcg-keratin 100 mg 1 tab PO DAILY 10/24/21 10/24/21 tablet (Biotin Plus Keratin) ipratropium bromide 21 mcg (0.03 1 spray INTRANASAL Q6H PRN 10/24/21 10/24/21 %) nasal spray montelukast 10 mg tablet 10 mg PO DAILY 10/24/21 10/24/21 tamsulosin 0.4 mg capsule 0.8 mg PO DAILY 10/24/21 10/24/21 Previous Rx's Medication Instructions Recorded furosemide 40 mg tablet 40 mg PO DAILY #30 tab 10/06/21 guaifenesin 1,200 mg tablet, 1,200 mg PO BID #20 tab 10/06/21 extended release 12 hr (Mucinex) pantoprazole 40 mg tablet,delayed 40 mg PO DAILY #30 tab 10/06/21 release (Protonix) prednisone 10 mg tablet 10 mg PO DAILY #56 tab 10/06/21 Allergies Allergy/AdvReac Type Severity Reaction Status Date / Time Sulfa (Sulfonamide AdvReac Intermediate Its been Verified 10/24/21 16:31 Antibiotics) along time cat dander AdvReac Mild Verified 10/24/21 16:31 penicillin V AdvReac Mild nausea Verified 10/24/21 16:31 salicylates AdvReac Mild up set Verified 10/24/21 16:31 stomach General Stated Complaint: SOB BRYCE: 2 Review of Systems All systems reviewed & are unremarkable except as noted in HPI and below Constitutional Constitutional: Denies chills, Denies excessive sweating, Reports fatigue, Reports fever(s), Reports headache(s), Denies weakness, Reports weight gain (4lb over 2 days) and Denies weight loss Eyes Eyes: Reports system reviewed and no additional complaints, except as documented and Denies blurry vision ENT Ears, Nose, Mouth, and Throat: Denies vertigo, Reports dizziness, Denies otalgia, Reports headache(s), Denies nasal congestion, Denies sore throat and Denies throat swelling Cardiovascular Cardiovascular: Denies chest pain, Denies syncope, Denies rapid heart rate and Denies dyspnea Respiratory Respiratory: Denies chest congestion, Reports cough, Denies pain on inspiration and Denies dyspnea Gastrointestinal Gastrointestinal: Denies abdominal pain, Denies diarrhea, Reports nausea and Denies vomiting Genitourinary Genitourinary: Denies hematuria, Denies dysuria and Denies flank pain Musculoskeletal Musculoskeletal: Denies back pain and Denies joint swelling Integumentary/Breasts Skin/Breast: Denies lesions and Denies rash Neurologic Neurologic: Denies behavioral changes, Denies confusion, Denies vertigo, Reports dizziness, Denies syncope, Reports headache(s), Denies localized weakness and Denies weakness Psychiatric Psychiatric: Denies behavioral changes, Denies confusion and Denies depression Endocrine Endocrine: Denies excessive sweating and Reports fatigue Hematologic/Lymphatic Hematologic/Lymphatic: Denies easy bruising and Denies lymphadenopathy Allergic/Immunologic Allergic/Immunologic: Denies throat swelling PFSH All Active Problems (Updated 10/28/21 @ 08:51 by Rebecca Crum DO) History of pulmonary embolism (Acute) Dizziness (Acute) Discharge planning issues (Acute) DVT prophylaxis (Acute) Hypotension (Acute) Pneumonia (Acute) SOB (shortness of breath) (Acute) Pulmonary emboli (Acute) Bilateral pneumonia (Acute) Sleep apnea (Chronic) PAD (peripheral artery disease) (Chronic) Medical History BPH (benign prostatic hyperplasia) Chronic ethmoidal sinusitis Chronic frontal sinusitis Chronic kidney disease Deviated nasal septum Dilated aortic root Discharge planning issues DVT prophylaxis E coli bacteremia Fractured rib mid Sept 2018 Hypothyroidism Kidney stone Lyme disease Nasal septal spur Nasal turbinate hypertrophy Parkinsons pt. states he does not have Polymyalgia rheumatica pt. reports he has this not parkinsons Pulmonary fat embolism Pyelonephritis due to Escherichia coli Surgical History Hx of colonoscopy Hx of inguinal hernia surgery Hx of total hip arthroplasty right Social History Smoking/Tobacco Use Status: Former Tobacco Use Quit Date: 09/08/81 Smoking risk assessment performed?: Yes Alcohol Intake: current Alcohol Intake frequency: 0-2 drinks per day Alcohol type: beer and hard liquor Drug use: Never Substance use type: does not use Do you feel safe at home: Yes Do you feel safe in your relationship?: Yes Additional Social history: Abby alfarotbor/friend [phone] Exam Const General: cooperative and ill appearing acutely (minimal; appears fatigued but nontoxic) Orientation: alert, awake and oriented x3 HENMT Head: normal to inspection Ears: hearing grossly normal bilaterally, external ears normal and TM's normal bilaterally General nose exam: external nose normal Face and sinus: normal facial exam Mouth: oral mucosae normal Teeth and gingiva: dentition normal Throat: posterior oropharynx normal Eyes General: appearance normal, both eyes and all related structures Eyelids: eyelids normal Pupils: PERRL EOM: EOM intact bilaterally Neck Neck: normal visual inspection Lymphatic: no lymphadenopathy noted Chest Chest: normal inspection of the chest Resp Effort & Inspection: normal respiratory effort and able to speak in complete sentences Auscultation: diminished lung sounds on the left throughout, no rhonchi and no wheezes Cardio Rate: regular rate Rhythm: regular rhythm GI Inspection: normal to inspection Palpation: soft, not firm, no guarding, no hepatosplenomegaly, no masses and nontender Auscultation: normal bowel sounds Back/Spine/Pelvis Back: no CVA tenderness Skin General skin exam: no rashes or lesions noted Neuro General: patient alert and patient awake Cognition: normal cognition Speech: speech normal Gait: normal gait Motor: muscle tone normal throughout Sensory Exam: no sensory deficits noted Extrem General: normal to inspection, full ROM and capillary refill normal Other: No leg edema Psych Appearance: grossly normal Mental Status: mental status grossly normal Speech and Movement: speech and movement normal Affect: normal affect Thought Process: normal
--- NOTE | 2021-10-24 17:00 | DI.RAD_ITS ---
Exam(s) XR PORTABLE CHEST AP EXAM: XR PORTABLE CHEST AP CLINICAL HISTORY: cough, r/o acute disease TECHNIQUE: 2D digital imaging was performed of the chest. One image was obtained. An AP view was ob tained. COMPARISON: CR XR CHEST 2V PA LATERAL from 11/10/2020 CR XR PORTABLE CHEST AP from 10/03/2021 FINDINGS: MEDIASTINUM: Normal. HEART: Normal. PULMONARY VASCULATURE: Normal. LUNGS: There again seen bilateral airspace opacities. Overall the findings appears stable. PLEURAL SPACE: No pleural effusion or pneumothorax. BONE:Within normal limits for the patient's age. There is again seen a right convex thoracic scoliosi s. OTHER FINDINGS:Normal. IMPRESSION: Stable patchy bilateral pulmonary infiltrates. DATA REPOSITORY: RADIATION DOSE DELIVERED:
[2021-10-24 17:01] LABS: Source Nasal/Nares
[2021-10-24 17:02] LABS: Abs Immature Grans 0.26 10^3/uL (0.0-0.06); Absolute Basophil Count 0.02 10^3/uL (0.0-0.2); Absolute Eosinophil Count 0.02 10^3/uL (0.0-0.7); Absolute Lymphocyte Count 0.31 10^3/uL (1.2-3.4); Basophils % 0.2; Eosinophils % 0.2; HGB 13.1 g/dL (13.5-17.5); Immature Grans % 2.3; Lymphocytes % 2.8; MCH 33.5 pg (27.0-33.0); MCHC 33.6 % (32.0-36.0); MCV 99.7 fL (80-95); Monocytes % 4.9; Neutrophils % 89.6; Nucleated RBC 0 %; Platelet Count 133 10^3/uL (130-400); RBC 3.91 10^6/uL (4.36-5.78); RDW 12.4 % (11.8-14.1); RDW-SD 45.1 fL; WBC 11.13 10^3/uL (4.4-10.8)
[2021-10-24 17:04] LABS: Absolute Monocyte Count 0.55 10^3/uL (0.1-0.8); Absolute Neutrophil Count 9.97 10^3/uL (1.2-6.7)
[2021-10-24 17:17] LABS: Lactate 2.2 mmol/L (0.6-1.4)
[2021-10-24 17:23] LABS: ALT 18 U/L (16-63); AST 20 U/L (15-37); Alkaline Phosphatase 47 U/L (46-116); Anion Gap 4.9 mmol/L (3-11); BUN 30 mg/dL (7-18); Bilirubin, Total 0.8 mg/dL (0.2-1.0); CO2 31.1 mmol/L (21.0-32.0); CREATININE 1.7 mg/dL (0.70-1.30); Calcium 8.2 mg/dL (8.5-10.1); Chloride 99 mmol/L (98-107); Estimated GFR 38.88 (mL/min/1.73m2); Glucose 107 mg/dL (74-106); Magnesium 1.8 mg/dL (1.8-2.4); NT-proBNP 658 pg/mL (<300); Potassium 4.1 mmol/L (3.5-5.1); Sodium 135 mmol/L (136-145); Total Protein 5.9 g/dL (6.4-8.2); Troponin I < 50 ng/L (<or=60)
[2021-10-24] MEDS: ACETAMINOPHEN 1,000 MG/100 ML BTL 400 MG IVPB (17:31)
[2021-10-24] MEDS: Normal Saline 500 ML IV (17:31)
[2021-10-24 17:35] LABS: Bilirubin Negative (Negative); Blood Moderate (Negative); Clarity Clear (Clear); Glucose Negative (Negative); Ketones Negative (Negative); Leukocyte Esterase Negative (Negative); Nitrite Negative (Negative); Specific Gravity 1.015 (1.005-1.025); Urobilinogen 0.2 EU/dL (Up TO 0.2)
[2021-10-24 17:41] LABS: Bacteria Negative HPF (Negative); C & S Indicated? No; Casts Negative LPF (Negative); Crystals Negative HPF (Negative); Epithelial Cells Few HPF (Negative); Mucus Trace (Negative); RBC >50 HPF (0-2); WBC 0-2 HPF (0-5)
[2021-10-24 17:42] LABS: COVID-19 PCR Negative (Negative); Influenza A PCR Negative (Negative); Influenza B PCR Negative (Negative); RSV PCR Negative (Negative)
[2021-10-24 17:55] LABS: Procalcitonin 0.2 ng/mL
[2021-10-24] MEDS: CEFEPIME 2 GM in Normal Saline 100 ML IVPB (18:57)
--- NOTE | 2021-10-24 19:04 | DI.VRAD_ITS ---
PROCEDURE INFORMATION: Exam: XR Chest Exam date and time: 10/24/2021 5:10 PM Age: 81 years old Clinical indication: Cough TECHNIQUE: Imaging protocol: XR of the chest. Views: 1 view. COMPARISON: CR XR PORTABLE CHEST AP 10/03/2021 11:51 AM FINDINGS: Lungs: Indistinct patchy bilateral infiltrates are again identified without significant interval change. Pleural spaces: No pneumothorax or pleural effusion detected. Heart/Mediastinum: Cardiomediastinal silhouette is stable. Bones/joints: No acute osseous lesions are detected. IMPRESSION: Indistinct patchy bilateral infiltrates without significant interval change. Dictated and Authenticated by: Robbin Hernandez MD. Ordering:FRANCISCO Fernandez MD
[2021-10-24] MEDS: VANCOMYCIN 1,250 MG in Normal Saline 250 ML 166.667 MG IVPB (21:14)
[2021-10-24] MEDS: Normal Saline Flush 10 ML SYR IVP (21:15)
[2021-10-24] MEDS: Apixaban 5 MG TAB PO (21:15)
[2021-10-24] MEDS: rOPINIRole 1 MG TAB 2 MG PO (21:19)
--- NOTE | 2021-10-24 22:05 | W.PM.HP.N ---
Date of service: 10/24/21 Time of Service: 21:05 Assessment and Plan Assessment and plan (1) Pneumonia: Status: Acute Assessment and plan: vs inflammatory process. WBC count 11.3; lower that at time of last admission/discharge. No fever. Not hypoxic. + green sputum; arguably postnasal vs bronchopulmonary. Possibly sinusitis. He did have blood-tinged nasal drainage x1 recently. Given recent hospitalization and no improvement in CXR from that hospitalization, will continue cefepime. Cont Vancomycin. MRSA screen pending. Cont prednisone [address] Rodrigues can evaluate when she is roudning tomorrow (out of office on ). (2) Pulmonary emboli: Status: Acute Assessment and plan: Cont apixiban (3) Polymyalgia rheumatica: Assessment and plan: Cont prednisone 5mg daily. (4) Chronic frontal sinusitis: Assessment and plan: Questionably an acute process as well. Cont ipratroprium nasal spray: BID. Add fluticasone nasal spray BID. On cefepime which should provide good coverage. (5) Hypothyroidism: Assessment and plan: Cont replacement tx. Qualifiers: Hypothyroidism type: unspecified Qualified Code(s): E03.9 - Hypothyroidism, unspecified History of Present Illness Narrative: This is an 81-year-old male with a history of CHF, polymyalgia rheumatica, CKD who was admitted to [facility] 10/04-10/06/2021 for bilateral PE on Eliquis and pneumonia. He now presented for persistent headache, dizziness, feeling feverish, nausea, cough with green sputum, and 4 pound weight gain in the last 2 days. Upon arrive his Temp was99 recta. ? Other viitals within normal limits.? He had complaint of headache but denied neck pain and was oriented x3; no meningeal signs per ED provider. White blood cell count 11.13.? Lactate 2.2.? Troponin negative.? BNP 658.? Procalcitonin 0.2.? Urinalysis notes blood but no evidence of infection.? COVID, flu, RSV negative. CXR: Indistinct patchy bilateral infiltrates without significant interval change. Pulmonary findings on previous admission were, at least in part, thought to be due to inflammatory process. He was treated with antibiotics and completed an outpt course consisting of cefpodoxime and doxycycline. He was discharged on a prednisone taper as well. Cefepime and vanocmyin initiated in the ED. MRSA screen ordered. Review of Systems All systems reviewed & are unremarkable except as noted in HPI and below PFSH All Active Problems Pneumonia (Acute) SOB (shortness of breath) (Acute) Pulmonary emboli (Acute) Bilateral pneumonia (Acute) Sleep apnea (Chronic) PAD (peripheral artery disease) (Chronic) Medical History BPH (benign prostatic hyperplasia) Chronic ethmoidal sinusitis Chronic frontal sinusitis Chronic kidney disease Deviated nasal septum Dilated aortic root Discharge planning issues DVT prophylaxis E coli bacteremia Fractured rib mid Sept 2018 Hypothyroidism Kidney stone Lyme disease Nasal septal spur Nasal turbinate hypertrophy Parkinsons pt. states he does not have Polymyalgia rheumatica pt. reports he has this not parkinsons Pulmonary fat embolism Pyelonephritis due to Escherichia coli Surgical History Hx of colonoscopy Hx of inguinal hernia surgery Hx of total hip arthroplasty right Social History Smoking/Tobacco Use Status: Former Tobacco Use Quit Date: 09/08/81 Smoking risk assessment performed?: Yes Alcohol Intake: current Alcohol Intake frequency: 0-2 drinks per day Alcohol type: beer and hard liquor Drug use: Never Substance use type: does not use Do you feel safe at home: Yes Do you feel safe in your relationship?: Yes Additional Social history: Abby Flores neightbor/friend [phone] Meds Allergies and Home Medications Allergies Allergy/AdvReac Type Severity Reaction Status Date / Time Sulfa (Sulfonamide AdvReac Intermediate Its been Verified 10/24/21 16:31 Antibiotics) along time cat dander AdvReac Mild Verified 10/24/21 16:31 penicillin V AdvReac Mild nausea Verified 10/24/21 16:31 salicylates AdvReac Mild up set Verified 10/24/21 16:31 stomach Home Medications Medication Instructions Recorded Confirmed Type levothyroxine 75 mcg tablet 75 mcg PO DAILY 12/03/16 10/24/21 History ropinirole 2 mg tablet 2 mg PO HS 12/03/16 10/24/21 History acetaminophen 500 mg tablet 1,000 mg PO Q4H PRN 06/30/19 10/12/21 History (Tylenol Extra Strength) albuterol sulfate 90 mcg/actuation 2 puff IH Q6H PRN 07/30/19 10/24/21 History aerosol inhaler (ProAir HFA) losartan 50 mg tablet 75 mg PO DAILY 07/30/19 10/12/21 History nitroglycerin 0.4 mg sublingual 0.4 mg SL Q5-15M PRN 07/30/19 10/24/21 History tablet (Nitrostat) finasteride 5 mg tablet 5 mg PO DAILY 08/27/21 10/24/21 History prednisone 5 mg tablet 5 mg PO DAILY 08/27/21 10/24/21 History sertraline 25 mg tablet 25 mg PO DAILY 08/27/21 10/24/21 History L. acidophilus,casei,rhamnosus 50 1 cap PO DAILY #30 cap 10/06/21 10/12/21 Rx billion cell capsule,delayed release (Bio-K plus) apixaban 5 mg (74 tabs) tablets in 5 mg PO ONCE #72 dose pk 10/06/21 10/12/21 Rx a dose pack ([employer] DVT-PE Treat 30D Start) cefpodoxime 200 mg tablet 200 mg PO BID #20 tab 10/06/21 10/24/21 Rx doxycycline hyclate 100 mg capsule 100 mg PO BID #10 cap 10/06/21 10/24/21 Rx furosemide 40 mg tablet 40 mg PO DAILY #30 tab 10/06/21 10/24/21 Rx guaifenesin 1,200 mg tablet, 1,200 mg PO BID #20 tab 10/06/21 10/24/21 Rx extended release 12 hr (Mucinex) pantoprazole 40 mg tablet,delayed 40 mg PO DAILY #30 tab 10/06/21 10/24/21 Rx release (Protonix) prednisone 10 mg tablet 10 mg PO DAILY #56 tab 10/06/21 10/24/21 Rx L. acidophilus,casei,rhamnosus 50 1 cap PO DAILY 10/24/21 10/24/21 History billion cell capsule,delayed release (Bio-K plus) apixaban 5 mg (74 tabs) tablets in 5 mg PO BID 10/24/21 History a dose pack (Eliquis DVT-PE Treat 30D Start) apixaban 5 mg tablet (Eliquis) 5 mg PO BID 10/24/21 10/24/21 History biotin 10,000 mcg-keratin 100 mg 1 tab PO DAILY 10/24/21 10/24/21 History tablet (Biotin Plus Keratin) ipratropium bromide 21 mcg (0.03 1 spray INTRANASAL Q6H PRN 10/24/21 10/24/21 History %) nasal spray montelukast 10 mg tablet 10 mg PO DAILY 10/24/21 10/24/21 History tamsulosin 0.4 mg capsule 0.8 mg PO DAILY 10/24/21 10/24/21 History Exam Const General: cooperative and no acute distress Orientation: alert, awake and oriented x3 HENMT Head: normal to inspection Ears: hearing grossly normal bilaterally Mouth: oral mucosae normal Eyes General: appearance normal, both eyes and all related structures Eyelids: eyelids normal Sclera: sclerae normal Neck Neck: normal visual inspection, full ROM, negative Kernig's sign and no JVD Resp Effort & Inspection: normal respiratory effort and able to speak in complete sentences Auscultation: clear to auscultation bilaterally and diminished lung sounds on the left throughout Cardio Rate: regular rate Rhythm: regular rhythm GI Inspection: normal to inspection Palpation: soft, not firm, no guarding and nontender Auscultation: normal bowel sounds Back/Spine/Pelvis Back: no CVA tenderness Skin General skin exam: no rashes or lesions noted Neuro General: patient alert, patient awake and moves all extremities Cognition: normal cognition Speech: speech normal Gait: normal gait Extrem General: normal to inspection, no pedal edema and no calf tenderness Psych Appearance: grossly normal Mental Status: mental status grossly normal Speech and Movement: speech and movement normal Affect: normal affect Thought Process: normal Results Labs Result diagrams: 10/24/21 16:55 10/24/21 16:55 Labs: Laboratory Results - last 24 hr 10/24/21 10/24/21 10/24/21 16:55 16:55 16:55 WBC 11.13 H RBC 3.91 L Hgb 13.1 L Hct 39.0 L MCV 99.7 H MCH 33.5 H MCHC 33.6 RDW 12.4 Plt Count 133 D MPV 10.0 Immature Gran % 2.3 Neutrophils % 89.6 Lymphocytes % 2.8 Monocytes % 4.9 Eosinophils % 0.2 Basophils % 0.2 Nucleated RBC % 0 Absolute Neutrophils 9.97 H Absolute Lymphocytes 0.31 L Absolute Monocytes 0.55 Absolute Eosinophils 0.02 Absolute Basophils 0.02 VBG Lactate Sodium 135 L Potassium 4.1 Chloride 99 Carbon Dioxide 31.1 Anion Gap 4.9 BUN 30 H Creatinine 1.7 H Estimated GFR/1.73 m2 38.88 Glucose 107 H Calcium 8.2 L Magnesium 1.8 Total Bilirubin 0.8 AST 20 ALT 18 Alkaline Phosphatase 47 Troponin I < 50 NT-Pro-B Natriuret Pep 658 H Total Protein 5.9 L Albumin 3.0 L Procalcitonin Urine Color Urine Clarity Urine pH Ur Specific [place] Urine Protein Urine Ketones Urine Blood Urine Nitrite Urine Bilirubin Urine Urobilinogen Ur Leukocyte Esterase Urine RBC Urine WBC Ur Epithelial Cells Urine Crystals Urine Bacteria Urine Casts Urine Mucus Ur Culture Indicated? Urine Glucose COVID-19 Source Nasal/Nares SARS-CoV-2 (PCR) Negative Influenza Type A (PCR) Negative Influenza Type B (PCR) Negative RSV (PCR) Negative 10/24/21 10/24/21 10/24/21 17:12 17:12 17:20 WBC RBC Hgb Hct MCV MCH MCHC RDW Plt Count MPV Immature Gran % Neutrophils % Lymphocytes % Monocytes % Eosinophils % Basophils % Nucleated RBC % Absolute Neutrophils Absolute Lymphocytes Absolute Monocytes Absolute Eosinophils Absolute Basophils VBG Lactate 2.2 H* Sodium Potassium Chloride Carbon Dioxide Anion Gap BUN Creatinine Estimated GFR/1.73 m2 Glucose Calcium Magnesium Total Bilirubin AST ALT Alkaline Phosphatase Troponin I NT-Pro-B Natriuret Pep Total Protein Albumin Procalcitonin 0.2 Urine Color Yellow Urine Clarity Clear Urine pH 6.0 Ur Specific [place] 1.015 Urine Protein Negative Urine Ketones Negative Urine Blood Moderate H Urine Nitrite Negative Urine Bilirubin Negative Urine Urobilinogen 0.2 Ur Leukocyte Esterase Negative Urine RBC >50 H Urine WBC 0-2 Ur Epithelial Cells Few Urine Crystals Negative Urine Bacteria Negative Urine Casts Negative Urine Mucus Trace Ur Culture Indicated? No Urine Glucose Negative COVID-19 Source SARS-CoV-2 (PCR) Influenza Type A (PCR) Influenza Type B (PCR) RSV (PCR) Last Vital Signs Temp 36.6 C 10/24/21 19:56 Pulse 95 H 10/24/21 19:56 Resp 18 10/24/21 19:56 BP 138/79 10/24/21 19:56 Pulse Ox 94 10/24/21 19:56 PAWSS Have you Been Recently Intoxicated or Drunk Within the Last 30 days?: No Have you Ever Experienced Previous Episodes of Alcohol Withdrawal?: No Have you ever Experienced Withdrawal Seizures?: No Have you ever Experienced Delirium Tremens(DT)s?: No Have you ever undergone Alcohol Rehabilitation Treatment (i.e, inpt ot outpatient treatment programs)?: No Have you ever Experienced Blackouts?: No Have you ever Combined Alcohol with other Downers within the last 90 days?: No Have you ever Combined Alcohol with any other Substance of Abuse during the last 90 days?: No Positive Blood Alcohol level on Presentation? [PCS.BAL]: No Evidence of Increased Autonomic Activity (i.e. HR>120, tremor, sweating, agitation, nausea)?: No Result: 0
[2021-10-25] MEDS: CEFEPIME 1 GM in Normal Saline 50 ML IVPB ×3 (02:42→18:17)
[2021-10-25] MEDS: Acetaminophen 325 MG TAB PO ×2 (05:52→14:12)
[2021-10-25] MEDS: Levothyroxine 75 MCG TAB PO (05:52)
[2021-10-25 07:42] VITALS: BP 135/78; PULSE 60; RESP 22; TEMP 36.3; O2SAT 95
[2021-10-25] MEDS: Furosemide 40 MG TAB PO (07:43)
[2021-10-25] MEDS: Apixaban 5 MG TAB PO ×2 (07:43→20:38)
[2021-10-25] MEDS: Sertraline 25 MG TAB PO (07:43)
[2021-10-25] MEDS: Normal Saline Flush 10 ML SYR IVP ×2 (07:43→16:01)
[2021-10-25] MEDS: Tamsulosin 0.4 MG CAPCR 0.8 MG PO (07:43)
[2021-10-25] MEDS: Pantoprazole 40 MG TABCR PO (07:44)
[2021-10-25] MEDS: predniSONE 5 MG TAB PO (07:44)
[2021-10-25] MEDS: guaiFENesin 600 MG TABCR 1200 MG PO ×2 (07:44→20:38)
[2021-10-25] MEDS: Finasteride 5 MG TAB PO (07:44)
[2021-10-25] MEDS: Montelukast 10 MG TAB PO (07:44)
[2021-10-25 07:58] LABS: Abs Immature Grans 0.19 10^3/uL (0.0-0.06); Absolute Basophil Count 0.03 10^3/uL (0.0-0.2); Absolute Eosinophil Count 0.28 10^3/uL (0.0-0.7); Absolute Lymphocyte Count 0.71 10^3/uL (1.2-3.4); Absolute Neutrophil Count 6.74 10^3/uL (1.2-6.7); Basophils % 0.4; Eosinophils % 3.4; HGB 11.9 g/dL (13.5-17.5); Immature Grans % 2.3; Lymphocytes % 8.5; MCH 33.4 pg (27.0-33.0); MCHC 33.1 % (32.0-36.0); MCV 101.1 fL (80-95); MPV 10.3 fL (8.0-11.0); Monocytes % 4.8; Neutrophils % 80.6; Nucleated RBC 0 %; Platelet Count 104 10^3/uL (130-400); RBC 3.56 10^6/uL (4.36-5.78); RDW 12.4 % (11.8-14.1); RDW-SD 46.5 fL; WBC 8.35 10^3/uL (4.4-10.8)
[2021-10-25 08:15] LABS: Anion Gap 6.3 mmol/L (3-11); BUN 28 mg/dL (7-18); CO2 29.7 mmol/L (21.0-32.0); CREATININE 1.6 mg/dL (0.70-1.30); Calcium 8.1 mg/dL (8.5-10.1); Chloride 101 mmol/L (98-107); Estimated GFR 41.69 (mL/min/1.73m2); Glucose 84 mg/dL (74-106); Potassium 3.1 mmol/L (3.5-5.1); Sodium 137 mmol/L (136-145)
--- NOTE | 2021-10-25 08:50 | INITIAL_ITS ---
- If Service Date Differs Date of service: 10/25/21 Time of Service: 08:50 Care Management Initial Assess REASON FOR HOSPITALIZATION:: Pneumonia PAST MEDICAL HISTORY/PAST SURGICAL HISTORY:: All Active Problems . Pneumonia (Acute). SOB (shortness of breath) (Acute). Pulmonary emboli (Acute). Bilateral pneumonia (Acute). Sleep apnea (Chronic). PAD (peripheral artery disease) (Chronic). Medical History . BPH (benign prostatic hyperplasia). Chronic ethmoidal sinusitis. Chronic frontal sinusitis. Chronic kidney disease. Deviated nasal septum. Dilated aortic root. Discharge planning issues. DVT prophylaxis. E coli bacteremia. Fractured rib. mid May 2019. Hypothyroidism. Kidney stone. Lyme disease. Nasal septal spur. Nasal turbinate hypertrophy. Parkinsons. pt. states he does not have. Polymyalgia rheumatica. pt. reports he has this not parkinsons. Pulmonary fat embolism. Pyelonephritis due to Escherichia coli. Surgical History . Hx of colonoscopy. Hx of inguinal hernia surgery. Hx of total hip arthroplasty. right PREVIOUS FUNCTIONAL STATUS/SOCIAL/FAMILY SUPPORTS:: Wilfrido resides in [place] with his cat and dog. He reports having owned the home for more than forty years but only moved up to the home from [facility] after his divorce a few years ago. 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 He reports being independent with all ADLs at baseline and keeps busy maintaining his home. Has patient been provided with info about the portal/API?: Yes Did the patient sign up for the portal?: No CODE STATUS:: Full Code INSURANCE COVERAGE / FINANCIAL ISSUES:: AARP. Medicare CURRENT HOME/COMMUNITY SERVICES/EQUIPMENT:: No current services or equipment. PRIMARY CARE PHYSICIAN:: Ana Wilkes POTENTIAL DISCHARGE NEEDS:: Evaluations for further needs, follow up appointments. PATIENT/FAMILY EDUCATION NEEDS:: Review discharge instructions and limitations, discussion of self care needs including ask me three. TRANSPORTATION:: Via private vehicle by family. PLAN:: Anticipate Al will return home when medically cleared. His sister will likely drive him home via private vehicle. He will follow up with his PCP and discharge plan of care. CM will continue to follow.
[2021-10-25] MEDS: Fluticasone NASAL SPRAY 16 GM BTL NS ×2 (08:55→20:39)
[2021-10-25] MEDS: Losartan 50 MG TAB 75 MG PO (08:55)
--- NOTE | 2021-10-25 11:05 | IN_ITS ---
Date of service: 10/25/21 Time of Service: 11:05 PT Notes Visit Reasons: Pneumonia Physical Therapy Inpatient Initial Evaluation Date: 10/25/2021 Referring Doctor: Rajwinder Nye MD PT Orders: PT CONSULT: Limited ability Precautions: Fall. Standard. Activity as tolerated. Patient Profile/Admitting Diagnosis: Jeremy is a 81-year-old male who presented to the ED on 10/26/2021 due to persistent headache, dizziness, fever, nausea, cough with green sputum, and 4 pound weight gain. Patient was diagnosed with pneumonia, pulmonary emboli, polymyalgia rheumatica, chronic frontal sinusitis and hypothyroidism. PMHX: All Active Problems? Pneumonia (Acute) SOB (shortness of breath) (Acute) Pulmonary emboli (Acute) Bilateral pneumonia (Acute) Sleep apnea (Chronic) PAD (peripheral artery disease) (Chronic) Medical History? BPH (benign prostatic hyperplasia) Chronic ethmoidal sinusitis Chronic frontal sinusitis Chronic kidney disease Deviated nasal septum Dilated aortic root Discharge planning issues DVT prophylaxis E coli bacteremia Fractured rib mid Sept 2019Hypothyroidism Kidney stone Lyme disease Nasal septal spur Nasal turbinate hypertrophy Parkinsons pt. states he does not have Polymyalgia rheumatica pt. reports he has this not parkinsonsPulmonary fat embolism Pyelonephritis due to Escherichia coli Surgical History? Hx of colonoscopy Hx of inguinal hernia surgery Hx of total hip arthroplasty right Social History/Home Situation: Lives alone in a private home with 3 steps to enter with rails on both sides. States that he has his firewood stored some 25 feet outside of his home and that a neighbor is able to help him bring firewood as needed. Still drives. Independent with all aspects of ADLs prior to admission. Equipment Owned/DME: None Subjective: Complains of nausea, dizziness, and tummy ache. States that he has just got done walking with nurse Timothy and that nurse is aware of his symptoms. He is too exhausted to do another walk, was reassured by this PT that the next walk will be this afternoon after he has taken adequate rest. Objective: General Observation: Seated on chair. Appeared exhausted and in mild discomfort. Mental Status: Alert and oriented as to person, place, time, and purpose. Able to pay attention, focus, and respond appropriately. Pain: 5-6/10 in abdominal area ROM: Right Upper Extremity: Shoulder Flexion WFL. Shoulder abduction WFL. Elbow flexion WFL. Wrist flexion WFL. Functional opening and closing of hand WFL. Left Upper Extremity: Shoulder Flexion WFL. Shoulder abduction WFL. Elbow flexion WFL. Wrist flexion WFL. Functional opening and closing of hand WFL. Right Lower Extremity: Hip flexion WFL. Hip abduction WFL. Knee flexion WFL. Ankle dorsiflexion WFL. Ankle plantarflexion WFL. Left Lower Extremity: Hip flexion WFL. Hip abduction WFL. Knee flexion WFL. Ankl e dorsiflexion WFL. Ankle plantarflexion WFL. Strength: Right Upper Extremity: Shoulder flexors 3+/5. Shoulder abductors 3+/5. Elbow flexors 3+5. Elbow extensors 3+/5. Mechanical And Auto Body Car Checker strong. Left Upper Extremity: Shoulder flexors 3+/5. Shoulder abductors 3+/5. Elbow flexors 3+/5. Elbow extensors 3+/5. Mechanical And Auto Body Car Checker strong. Right Lower Extremity: Hip flexors 3+/5. Hip abductors 3+/5. Knee flexors 4-/5. Knee extensors 3+/5. Ankle dorsiflexors 3+/5. Ankle plantarflexors 3+/5. Left Lower Extremity: Hip flexors 3+/5. Hip abductors 3+/5. Knee flexors 4-/5. Knee extensors 3+/5. Ankle dorsiflexors 3+/5. Ankle plantarflexors 3+/5. Bed Mobility/Transfers: Sit to stand with minimal assist Stand to sit with contact guard assist Bed to bedside recliner minimal assist Gait: Per patient and Nurse Timothy, patient just got back from walking the whole nurses' station loop using the FWW. Did not attempt another walk per patient request due to significant fatigue, nausea, dizziness and abdominal ache. Balance: Static Sitting: Normal Dynamic Sitting: Normal Static Standing: Fair Dynamic Standing: Fair Special Tests: Mobility Limitations Standardized Measure [facility] AM-PAC 6 clicks Basic Mobility Inpatient Short Form: Raw Score: 18 CMS Score: 47% deficit Informed Consent/Education: Patient was instructed in purpose of PT consult and plan of care. Agreeable to proceed with established PT POC to achieve personal goals. Assessment: Patient presents with clinical signs and symptoms consistent with current/admitting diagnoses that have resulted to mobility limitations, gait instability, generalized weakness, and overall ADL decline as demonstrated by the following impairment level findings: 1. Decreased strength to B UE/LE major muscle groups 2. Impaired sitting/standing balance 3. Impaired activity tolerance 4. Shortness of breath 5. Fatigue Impairments are contributing to the following functional limitations: 1. Difficulty with ambulation without assistive device and physical assistance 2. Increased completion time for mobility ADL performance 3. Increased risk for falls 4. Difficulty with managing steps alone safely Patient is assessed as a [id number] moderate based on the following: History: 81-year-old malewith past medical history as indicated above Examination: Demonstrable impairment in strength, balance, and mobility level with underlying impairments and functional limitations as exhibited above as well as deficit score of 47% utilizing the [facility] Mobility Inpatient Short Form Presentation: Evolving Decision Makin moderate complexity Goals: Goals X1 week 1. Supine-Sit independent 2. Sit-Supine independent 3. Sit-Stand independent 4. Stand-Sit independent with no AD 5. Bed-Chair independent with no AD 6. Chair-Bed independent with no AD 7. Independent gait on level surface with use of no ADfor at least 300feet without report of pain nor dyspnea 8. Independent stair negotiation while holding onto B rails for at least 5 steps without report of pain nor dyspnea 9. Independent with home exercise program 10. Good static and dynamic standing balance/tolerance Plan of Care/Treatment Plan: 1-2x/day, 7 days/week x 1 week. Plan of care has been reviewed with the POWER PLANT INSTALLER providing the service under Physical Therapy direction. Initiate Physical Therapy intervention for pain management as needed, strengthening, bed mobility, transfers, gait, stairs, balance training, and use of assistive device. DISCHARGE RECOMMENDATIONS: [] Home with no services [] [X] Home with services. Patient will benefit from home health PT services in order to progress mobility level using least restrictive assistive ambulatory device, assess home safety, identify additional equipment needs, and establish a functional maintenance program that will increase ability of patient to remain at home. [] Home with outpatient PT [] [] SNF for continued rehabilitation [] [] Penitentiary Care [] [] SNF versus LTC based on ability to participate and progress [] TREATMENT CODE/TIME: 14239 x 20 minutes beginning at 11:05 AM. Thank you for the opportunity to participate in the care of this patient. Pepper Woodard PT, DPT, CLT [facility] [place], [place]
--- NOTE | 2021-10-25 14:13 | INITIAL_ITS ---
- If Service Date Differs Date of service: 10/25/21 Time of Service: 14:13 Care Management Initial Assess REASON FOR HOSPITALIZATION:: Pneumonia PAST MEDICAL HISTORY/PAST SURGICAL HISTORY:: All Active Problems. Pneumonia (Acute). SOB (shortness of breath) (Acute). Pulmonary emboli (Acute). Bilateral pneumonia (Acute). Sleep apnea (Chronic). PAD (peripheral artery disease) (Chronic). Medical History. BPH (benign prostatic hyperplasia). Chronic ethmoidal sinusitis. Chronic frontal sinusitis. Chronic kidney disease. Deviated nasal septum. Dilated aortic root. Discharge planning issues. DVT prophylaxis. E coli bacteremia. Fractured rib. mid May 2019. Hypothyroidism. Kidney stone. Lyme disease. Nasal septal spur. Nasal turbinate hypertrophy. Parkinsons. pt. states he does not have. Polymyalgia rheumatica. pt. reports he has this not parkinsons. Pulmonary fat embolism. Pyelonephritis due to Escherichia coli. Surgical History. Hx of colonoscopy. Hx of inguinal hernia surgery. Hx of total hip arthroplasty. right PREVIOUS FUNCTIONAL STATUS/SOCIAL/FAMILY SUPPORTS:: Wilfrido Kumar) resides in [place] with his cat and dog. He reports having owned the home for more than forty years but only moved up to the home from [facility] after his divorce a few years ago. 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 His sister, Melvina, lives nearby and is supportive. He reports being independent with all ADLs at baseline and keeps busy maintaining his home. CURRENT FUNCTIONAL STATUS:: Jarrod was lying in bed when CM met with him. He reported that he would be feeling better if he wasn't in pain. He stated that he feels that his bed is tilted, which CM reported to THADDEUS Mireles. Per report, he is on cefepime and vancomycin, and will be seen by Dr. Rodrigues tomorrow. Palliative Care and PT have been consulted. He reported that he does not feel ready for discharge at this time, and per [employer] he meets criteria for hospitalization. CM will continue to follow. ADVANCE DIRECTIVES:: DPOA on file, Javid Jeanine listed as agent. Palliative care consulted. Has patient been provided with info about the portal/API?: Yes Did the patient sign up for the portal?: No CODE STATUS:: Full Code INSURANCE COVERAGE / FINANCIAL ISSUES:: [facility]/ [employer] CURRENT HOME/COMMUNITY SERVICES/EQUIPMENT:: [facility] RN, PT. No known equipment. PRIMARY CARE PHYSICIAN:: Ana Wilkes POTENTIAL DISCHARGE NEEDS:: Evaluation for further needs, follow up appointments. PATIENT/FAMILY EDUCATION NEEDS:: Review discharge instructions and limitations, discussion of self care needs including ask me three. ANTICIPATED BARRIERS TO DISCHARGE:: None identified. TRANSPORTATION:: Via private vehicle by his sister. PLAN:: Anticipate Jarrod will return home when medically cleared. His sister will likely drive him home via private vehicle when ready. His home health services will be resumed upon discharge. He will follow up with his PCP and discharge plan of care. CM will continue to follow. Readmission - Within the Past 30 Days Yes or No: Y - Date of First Admission Date of 1st Admission: 10/03/21 - Date of this Admission Date of Admission: 10/25/21 This admission was: Through ED - Office Visit Since 1st Admission Have you seen your PCP in the office since discharge?: Yes Date of PCP Appointment: 10/23/21 - I. Interview patient and/or Family Difficulty reaching your doctor or getting an office appt?: No Have you had trouble purchasing/ or taking medication?: Yes Describe barriers fpr purchasing or taking medication: Jarrod's pharmacy was closed, open pharmacy didn't have his insurance info. CM connected with pharmacy and provided information, but he did not receive his meds until the day after discharge. How do you take your medications and set up your pills?: independent, HH support if needed Did you feel ready for discharge when you left the last time: Yes Why did you not feel ready for discharge?: Jarrod reported that he felt better on the day of his discharge. He didn't answer directly if he felt ready for discharge. Were services received that you thought were set up on disch: Yes What services were received?: ABE RN, PT (ordered by PCP) Did you call your physician beore you came to the ED?: No (HH sent pt to ED via EMS) - ED visits How many ED visits in the past 12 months: 3 - Assessment for Readmission Summary of readmission circumstances, based upon interviews: Jarrod reported that he did feel better on the day of his discharge, but was indifferent about whether or not he was ready for discharge. He did report that he had trouble receiving his medications, but that was resolved the day after his discharge. He reported that he has seen his PCP since discharge, and has received HH RN, PT. He stated that his HH RN was at his home and felt that he should go to the ED, and called EMS for transport. He was not feeling well at the time of this assessment, stating that he is in pain and is uncomfortable. He is happy to be here, receiving care.
--- NOTE | 2021-10-25 14:50 | CHAPLAIN ---
Wilfrido was up in the chair when I visited. He told me he's from [place], originally from [place] but has been coming up here for many years. He lives in a camp that the winter[place], but it's still a camp, he said. He moved up here after he was and their house was sold. He has an older sister who lives nearby and will likely visit him here. He also has a dog for company at home. Wilfrido said his neighbors are people he can count on as well.
--- NOTE | 2021-10-25 15:32 | PT.INNT ---
PT Notes Visit Reasons: Pneumonia Present with nursing taking vitals, with BP of 60/30. Hold on PT this afternoon, until more medically stable. Nursing agrees.
--- NOTE | 2021-10-25 15:36 | W.PM.PROGNOT ---
Date of Service Date of service: 10/25/21 Time of Service: 15:36 Assessment and Plan Assessment and plan (1) Hypotension: Status: Acute Assessment and plan: asymptomatic. has been afebrile. most likely adrenal insufficiency stress dose steroids fluid bolus blood cultures pending continue broad spectrum antibiotics. (2) Pneumonia: Status: Acute Assessment and plan: vs inflammatory process. WBC count 11.3; lower that at time of last admission/discharge. No fever. Not hypoxic. + green sputum; arguably postnasal vs bronchopulmonary. Possibly sinusitis. He did have blood-tinged nasal drainage x1 recently. Given recent hospitalization and no improvement in CXR from that hospitalization, will continue cefepime. Cont Vancomycin. MRSA screen pending. Cont prednisone [address] Rodrigues can evaluate when she is rounding Friday (3) Pulmonary emboli: Status: Acute Assessment and plan: Cont apixiban (4) Polymyalgia rheumatica: Assessment and plan: Cont prednisone 5mg daily. (5) Chronic frontal sinusitis: Assessment and plan: Questionably an acute process as well. Cont ipratroprium nasal spray: BID. Add fluticasone nasal spray BID. On cefepime which should provide good coverage. (6) Hypothyroidism: Assessment and plan: Cont replacement tx. Qualifiers: Hypothyroidism type: unspecified Qualified Code(s): E03.9 - Hypothyroidism, unspecified (7) DVT prophylaxis: Status: Acute Assessment and plan: on apixaban (8) Discharge planning issues: Status: Acute Assessment and plan: anticipate a discharge to home when stable, +/- home health services discussed with Dr Nye Subjective Subjective Patient reports: no new complaints, tolerating liquids well, tolerating a regular diet and afebrile Interval history since last seen: hypotensive this afternoon with blood pressure in the 70's, asymptomatic. Exam Const General: cooperative and no acute distress Orientation: alert, awake and oriented x3 HENMT Head: normal to inspection Ears: hearing grossly normal bilaterally Mouth: oral mucosae normal Eyes General: appearance normal, both eyes and all related structures Eyelids: eyelids normal Sclera: sclerae normal Neck Neck: normal visual inspection, full ROM, negative Kernig's sign and no JVD Resp Effort & Inspection: normal respiratory effort and able to speak in complete sentences Auscultation: clear to auscultation bilaterally and diminished lung sounds on the left throughout Cardio Rate: regular rate Rhythm: regular rhythm GI Inspection: normal to inspection Palpation: soft, not firm, no guarding and nontender Auscultation: normal bowel sounds Back/Spine/Pelvis Back: no CVA tenderness Skin General skin exam: no rashes or lesions noted Neuro General: patient alert, patient awake and moves all extremities Cognition: normal cognition Speech: speech normal Gait: normal gait Extrem General: normal to inspection, no pedal edema and no calf tenderness Psych Appearance: grossly normal Mental Status: mental status grossly normal Speech and Movement: speech and movement normal Affect: normal affect Thought Process: normal Objective Last Vital Signs Temp 36.3 C L 10/25/21 07:42 Pulse 60 10/25/21 07:42 Resp 22 10/25/21 07:42 BP 135/78 10/25/21 07:42 Pulse Ox 95 10/25/21 07:42 Laboratory Results - last 24 hr 10/24/21 10/24/21 10/24/21 16:55 16:55 16:55 WBC 11.13 H RBC 3.91 L Hgb 13.1 L Hct 39.0 L MCV 99.7 H MCH 33.5 H MCHC 33.6 RDW 12.4 Plt Count 133 D MPV 10.0 Immature Gran % 2.3 Neutrophils % 89.6 Lymphocytes % 2.8 Monocytes % 4.9 Eosinophils % 0.2 Basophils % 0.2 Nucleated RBC % 0 Absolute Neutrophils 9.97 H Absolute Lymphocytes 0.31 L Absolute Monocytes 0.55 Absolute Eosinophils 0.02 Absolute Basophils 0.02 VBG Lactate Sodium 135 L Potassium 4.1 Chloride 99 Carbon Dioxide 31.1 Anion Gap 4.9 BUN 30 H Creatinine 1.7 H Estimated GFR/1.73 m2 38.88 Glucose 107 H Calcium 8.2 L Magnesium 1.8 Total Bilirubin 0.8 AST 20 ALT 18 Alkaline Phosphatase 47 Troponin I < 50 NT-Pro-B Natriuret Pep 658 H Total Protein 5.9 L Albumin 3.0 L Procalcitonin Urine Color Urine Clarity Urine pH Ur Specific [place] Urine Protein Urine Ketones Urine Blood Urine Nitrite Urine Bilirubin Urine Urobilinogen Ur Leukocyte Esterase Urine RBC Urine WBC Ur Epithelial Cells Urine Crystals Urine Bacteria Urine Casts Urine Mucus Ur Culture Indicated? Urine Glucose COVID-19 Source Nasal/Nares SARS-CoV-2 (PCR) Negative Influenza Type A (PCR) Negative Influenza Type B (PCR) Negative RSV (PCR) Negative 10/24/21 10/24/21 10/24/21 17:12 17:12 17:20 WBC RBC Hgb Hct MCV MCH MCHC RDW Plt Count MPV Immature Gran % Neutrophils % Lymphocytes % Monocytes % Eosinophils % Basophils % Nucleated RBC % Absolute Neutrophils Absolute Lymphocytes Absolute Monocytes Absolute Eosinophils Absolute Basophils VBG Lactate 2.2 H* Sodium Potassium Chloride Carbon Dioxide Anion Gap BUN Creatinine Estimated GFR/1.73 m2 Glucose Calcium Magnesium Total Bilirubin AST ALT Alkaline Phosphatase Troponin I NT-Pro-B Natriuret Pep Total Protein Albumin Procalcitonin 0.2 Urine Color Yellow Urine Clarity Clear Urine pH 6.0 Ur Specific [place] 1.015 Urine Protein Negative Urine Ketones Negative Urine Blood Moderate H Urine Nitrite Negative Urine Bilirubin Negative Urine Urobilinogen 0.2 Ur Leukocyte Esterase Negative Urine RBC >50 H Urine WBC 0-2 Ur Epithelial Cells Few Urine Crystals Negative Urine Bacteria Negative Urine Casts Negative Urine Mucus Trace Ur Culture Indicated? No Urine Glucose Negative COVID-19 Source SARS-CoV-2 (PCR) Influenza Type A (PCR) Influenza Type B (PCR) RSV (PCR) 10/25/21 10/25/21 06:45 06:45 WBC 8.35 RBC 3.56 L Hgb 11.9 L Hct 36.0 L MCV 101.1 H MCH 33.4 H MCHC 33.1 RDW 12.4 Plt Count 104 L MPV 10.3 Immature Gran % 2.3 Neutrophils % 80.6 Lymphocytes % 8.5 Monocytes % 4.8 Eosinophils % 3.4 Basophils % 0.4 Nucleated RBC % 0 Absolute Neutrophils 6.74 H Absolute Lymphocytes 0.71 L Absolute Monocytes 0.40 Absolute Eosinophils 0.28 Absolute Basophils 0.03 VBG Lactate Sodium 137 Potassium 3.1 L D Chloride 101 Carbon Dioxide 29.7 Anion Gap 6.3 BUN 28 H Creatinine 1.6 H Estimated GFR/1.73 m2 41.69 Glucose 84 Calcium 8.1 L Magnesium Total Bilirubin AST ALT Alkaline Phosphatase Troponin I NT-Pro-B Natriuret Pep Total Protein Albumin Procalcitonin Urine Color Urine Clarity Urine pH Ur Specific [place] Urine Protein Urine Ketones Urine Blood Urine Nitrite Urine Bilirubin Urine Urobilinogen Ur Leukocyte Esterase Urine RBC Urine WBC Ur Epithelial Cells Urine Crystals Urine Bacteria Urine Casts Urine Mucus Ur Culture Indicated? Urine Glucose COVID-19 Source SARS-CoV-2 (PCR) Influenza Type A (PCR) Influenza Type B (PCR) RSV (PCR) PAWSS Have you Been Recently Intoxicated or Drunk Within the Last 30 days?: No Have you Ever Experienced Previous Episodes of Alcohol Withdrawal?: No Have you ever Experienced Withdrawal Seizures?: No Have you ever Experienced Delirium Tremens(DT)s?: No Have you ever undergone Alcohol Rehabilitation Treatment (i.e, inpt ot outpatient treatment programs)?: No Have you ever Experienced Blackouts?: No Have you ever Combined Alcohol with other Downers within the last 90 days?: No Have you ever Combined Alcohol with any other Substance of Abuse during the last 90 days?: No Positive Blood Alcohol level on Presentation? [PCS.BAL]: No Evidence of Increased Autonomic Activity (i.e. HR>120, tremor, sweating, agitation, nausea)?: No Result: 0
[2021-10-25] MEDS: Normal Saline 500 ML IV (15:42)
[2021-10-25 15:43] VITALS: BP 60/30; PULSE 65; RESP 16; TEMP 37.3; O2SAT 95
[2021-10-25] MEDS: Hydrocortisone SOD SUC. 100 MG VIAL IVP (16:01)
[2021-10-25 16:36] VITALS: BP 116/68; PULSE 68
[2021-10-25 19:10] VITALS: BP 111/61; PULSE 87; RESP 16; TEMP 37; O2SAT 95
[2021-10-25] MEDS: VANCOMYCIN/WATER (PEG) 1.25 GM/250 ML BAG IVPB (20:38)
[2021-10-25] MEDS: rOPINIRole 1 MG TAB 2 MG PO (22:45)
[2021-10-25 23:33] VITALS: BP 117/70; PULSE 83; RESP 17; TEMP 36; O2SAT 93
[2021-10-26] VITALS (8 sets, daily range): BP systolic 91–150; BP diastolic 51–75; PULSE 56–96; RESP 15–20; TEMP 36–36.7; O2SAT 91–97
--- NOTE | 2021-10-26 | DI.CT_ITS ---
Exam(s) CT HEAD WO EXAM: CT HEAD WO CLINICAL HISTORY: dizziness. TECHNIQUE: Imaging Protocol: Axial computed tomography images with coronal and sagittal reformatted images were created and reviewed COMPARISON: CT CT SINUS WO from 08/03/2021 FINDINGS: There are no skull fractures nor fluid in the visualized paranasal sinuses. There is no evidence of intracranial hemorrhage, mass effect, or shift of midline structures. There are no extra-axial fluid collections. The ventricles are not enlarged or shifted and there is no blo od within the ventricular system nor within the basal cisterns. Is mild periventricular hypodensity consistent chronic small vessel disease. There is no obvious acu te territorial infarction. Calcification is noted in the vertebral arteries at the skull base. IMPRESSION: Mild chronic ischemic changes. No acute infarct evident on this noninfused study. No evidence of in tracranial hemorrhage. RADIATION DOSE DELIVERED: 867.39mGy.cm Total DLP DATA REPOSITORY: All CT scans at this facility are submitted to the National Radiology Data Registry (NRDR) Dose Index Registry (DIR) with the [employer] (ACR). RADIATION OPTIMIZATION: All CT scans at this facility use at least one of these dose optimization te chniques: automated exposure control; mA and/or kV adjustment per patient size (includes targeted exa ms where dose is matched to clinical indication); or iterative reconstruction.
[2021-10-26] MEDS: Normal Saline Flush 10 ML SYR IVP ×5 (01:01→17:54)
[2021-10-26] MEDS: Hydrocortisone SOD SUC. 100 MG VIAL 50 MG IVP ×3 (01:01→21:55)
[2021-10-26] MEDS: CEFEPIME 1 GM in Normal Saline 50 ML IVPB ×3 (02:21→17:54)
[2021-10-26] MEDS: Acetaminophen 325 MG TAB PO (03:30)
[2021-10-26] MEDS: Levothyroxine 75 MCG TAB PO (06:31)
[2021-10-26 07:01] LABS: Abs Immature Grans 0.18 10^3/uL (0.0-0.06); Absolute Basophil Count 0.01 10^3/uL (0.0-0.2); Absolute Eosinophil Count 0.01 10^3/uL (0.0-0.7); Absolute Lymphocyte Count 0.41 10^3/uL (1.2-3.4); Absolute Monocyte Count 0.33 10^3/uL (0.1-0.8); Absolute Neutrophil Count 8.46 10^3/uL (1.2-6.7); Basophils % 0.1; Eosinophils % 0.1; HCT 34.7 % (40.0-50.0); HGB 11.5 g/dL (13.5-17.5); Immature Grans % 1.9; Lymphocytes % 4.4; MCH 33.2 pg (27.0-33.0); MCHC 33.1 % (32.0-36.0); MCV 100.3 fL (80-95); MPV 10.5 fL (8.0-11.0); Monocytes % 3.5; Nucleated RBC 0 %; Platelet Count 116 10^3/uL (130-400); RBC 3.46 10^6/uL (4.36-5.78); RDW 12.5 % (11.8-14.1); RDW-SD 46.1 fL
[2021-10-26 07:14] LABS: Anion Gap 9.7 mmol/L (3-11); BUN 28 mg/dL (7-18); CO2 26.3 mmol/L (21.0-32.0); CREATININE 1.6 mg/dL (0.70-1.30); Chloride 102 mmol/L (98-107); Estimated GFR 41.69 (mL/min/1.73m2); Glucose 134 mg/dL (74-106); Potassium 3.1 mmol/L (3.5-5.1); Sodium 138 mmol/L (136-145)
[2021-10-26] MEDS: Fluticasone NASAL SPRAY 16 GM BTL NS ×2 (08:00→20:05)
[2021-10-26] MEDS: Tamsulosin 0.4 MG CAPCR 0.8 MG PO (08:01)
[2021-10-26] MEDS: guaiFENesin 600 MG TABCR 1200 MG PO ×2 (08:01→20:05)
[2021-10-26] MEDS: Sertraline 25 MG TAB PO (08:01)
[2021-10-26] MEDS: predniSONE 5 MG TAB PO (08:01)
[2021-10-26] MEDS: Losartan 50 MG TAB 75 MG PO (08:01)
[2021-10-26] MEDS: Pantoprazole 40 MG TABCR PO (08:02)
[2021-10-26] MEDS: Furosemide 40 MG TAB PO (08:02)
[2021-10-26] MEDS: Montelukast 10 MG TAB PO (08:02)
[2021-10-26] MEDS: Finasteride 5 MG TAB PO (08:03)
[2021-10-26] MEDS: Apixaban 5 MG TAB PO ×2 (08:03→20:05)
[2021-10-26] MEDS: Potassium Chloride 20 MEQ TABCR 40 MEQ PO (09:32)
[2021-10-26 09:45] LABS: Lab Add On Test DONE
--- NOTE | 2021-10-26 10:06 | PDOC.CMPRO ---
- If Service Date Differs Date of service: 10/26/21 Time of Service: 10:06 Care Management Progress Note S/O: Jarrod was sitting up in his chair when CM met with him. He reported that he is feeling better today, and was able to get cleaned up. Per report, his Potassium and Magnesium were being repleted today. He stated that he has been talking to his sister, updating her, and she was able to visit yesterday. He stated that he is worried about leaving too soon, as he returned so soon after his last discharge. CM will continue to follow. A: Wilfrido is an 81 year old male admitted to [facility] on 10/24/21 with Pneumonia. P: Anticipate Al will return home when medically cleared. His sister will likely drive him home via private vehicle when ready. His home health services will be resumed upon discharge. He will follow up with his PCP and discharge plan of care. CM will continue to follow.
--- NOTE | 2021-10-26 12:42 | PGE_ITS ---
Date of Service Date of service: 10/26/21 Time of Service: 12:42 Assessment and Plan Assessment and plan (1) Pneumonia: Start date: 10/26/21 Start time: 13:24 Status: Acute Assessment and plan: vs inflammatory process. WBC count 9.4 today despite stress dose steroids No fever. Not hypoxic. + green sputum; arguably postnasal vs bronchopulmonary. Possibly sinusitis. He did have blood-tinged nasal drainage x1 recently. Given recent hospitalization and no improvement in CXR from that hospi talization, will continue cefepime. MRSA negative d/c vanco Cont prednisone [address] Rodrigues can evaluate when she is rounding Friday (2) Hypotension: Start date: 10/26/21 Start time: 13:25 Status: Acute Assessment and plan: symptomatic. Becomes dizzy when he stands, this goes away with sitting, orthostatics this am 109 systolic dropped to 91. He states this has been on going. He is on flomax which can cause this, he also has a PE which can cause dizziness, no CT done on admission, will obtain CT of his head d/t dizziness to r/o infarct. BID orthorstatics has been afebrile. most likely adrenal insufficiency stress dose steroids fluid bolus blood cultures NTD continue cefepime feeling better,from infectious stand point (3) Dizziness: Start date: 10/26/21 Start time: 13:28 Status: Acute Assessment and plan: as above CT ordered and pending (4) Pulmonary emboli: Start date: 10/26/21 Start time: 13:26 Status: Acute Assessment and plan: Cont apixiban (5) Polymyalgia rheumatica: Start date: 10/26/21 Start time: 13:26 Assessment and plan: Cont prednisone 5mg daily. with stress dose (6) Chronic frontal sinusitis: Start date: 10/26/21 Start time: 13:27 Assessment and plan: Questionably an acute process as well. Cont ipratroprium nasal spray: BID. Add fluticasone nasal spray BID. On cefepime which should provide good coverage. (7) Hypothyroidism: Start date: 10/26/21 Start time: 13:27 Assessment and plan: Cont replacement tx. Qualifiers: Hypothyroidism type: unspecified Qualified Code(s): E03.9 - Hypothyroidism, unspecified (8) DVT prophylaxis: Start date: 10/26/21 Start time: : Status: Acute Assessment and plan: on apixaban (9) Discharge planning issues: Start date: 10/26/21 Start time: : Status: Acute Assessment and plan: anticipate a discharge to home when stable, +/- home health services discussed with Dr Nye Subjective Subjective Patient reports: other Interval history since last seen: Sitting up in chair. no complaints of cough. He does c/o dizziness when standing up with resolution when sitting down. will do BID orthostatics. Hold flomax to see if this helps and bladderscan Exam Const General: cooperative and no acute distress Orientation: alert, awake and oriented x3 HENMT Head: normal to inspection Ears: hearing grossly normal bilaterally Mouth: oral mucosae normal Eyes General: appearance normal, both eyes and all related structures Eyelids: eyelids normal Sclera: sclerae normal Neck Neck: normal visual inspection, full ROM, negative Kernig's sign and no JVD Resp Effort & Inspection: normal respiratory effort and able to speak in complete sentences Auscultation: clear to auscultation bilaterally and diminished lung sounds on the left throughout Cardio Rate: regular rate Rhythm: regular rhythm GI Inspection: normal to inspection Palpation: soft, not firm, no guarding and nontender Auscultation: normal bowel sounds Back/Spine/Pelvis Back: no CVA tenderness Skin General skin exam: no rashes or lesions noted Neuro General: patient alert, patient awake and moves all extremities Cognition: normal cognition Speech: speech normal Gait: normal gait Extrem General: normal to inspection, no pedal edema and no calf tenderness Psych Appearance: grossly normal Mental Status: mental status grossly normal Speech and Movement: speech and movement normal Affect: normal affect Thought Process: normal Objective Last Vital Signs Temp 36 C L 10/26/21 11:41 Pulse 96 H 10/26/21 11:41 Resp 15 10/26/21 07:27 BP 91/54 L 10/26/21 11:41 Pulse Ox 95 10/26/21 11:41 Laboratory Results - last 24 hr 10/26/21 10/26/21 10/26/21 06:26 06:26 06:26 WBC 9.40 RBC 3.46 L Hgb 11.5 L Hct 34.7 L MCV 100.3 H MCH 33.2 H MCHC 33.1 RDW 12.5 Plt Count 116 L MPV 10.5 Immature Gran % 1.9 Neutrophils % 90.0 Lymphocytes % 4.4 Monocytes % 3.5 Eosinophils % 0.1 Basophils % 0.1 Nucleated RBC % 0 Absolute Neutrophils 8.46 H Absolute Lymphocytes 0.41 L Absolute Monocytes 0.33 Absolute Eosinophils 0.01 Absolute Basophils 0.01 Sodium 138 Potassium 3.1 L Chloride 102 Carbon Dioxide 26.3 Anion Gap 9.7 BUN 28 H Creatinine 1.6 H Estimated GFR/1.73 m2 41.69 Glucose 134 H Calcium 8.0 L Magnesium Add-On Test Request DONE 10/26/21 06:26 WBC RBC Hgb Hct MCV MCH MCHC RDW Plt Count MPV Immature Gran % Neutrophils % Lymphocytes % Monocytes % Eosinophils % Basophils % Nucleated RBC % Absolute Neutrophils Absolute Lymphocytes Absolute Monocytes Absolute Eosinophils Absolute Basophils Sodium Potassium Chloride Carbon Dioxide Anion Gap BUN Creatinine Estimated GFR/1.73 m2 Glucose Calcium Magnesium 2.0 Add-On Test Request PAWSS Have you Been Recently Intoxicated or Drunk Within the Last 30 days?: No Have you Ever Experienced Previous Episodes of Alcohol Withdrawal?: No Have you ever Experienced Withdrawal Seizures?: No Have you ever Experienced Delirium Tremens(DT)s?: No Have you ever undergone Alcohol Rehabilitation Treatment (i.e, inpt ot outpatient treatment programs)?: No Have you ever Experienced Blackouts?: No Have you ever Combined Alcohol with other Downers within the last 90 days?: No Have you ever Combined Alcohol with any other Substance of Abuse during the last 90 days?: No Positive Blood Alcohol level on Presentation? [PCS.BAL]: No Evidence of Increased Autonomic Activity (i.e. HR>120, tremor, sweating, agitation, nausea)?: No Result: 0
--- NOTE | 2021-10-26 15:42 | PT.INTREAT ---
PT Notes Visit Reasons: Pneumonia Inpatient Physical Therapy Treatment Note [facility] Date: 10/26/21 PRECAUTIONS:PNA SUBJECTIVE: Pt reports having dizziness mostly when standing. OBJECTIVE: Sit-stand: CGA Stand-sit: CGA GAIT Assistive Device: FWW Weight bearing: Full Assist: CGA Distance: approx 200ft with one seated rest half way. ASSESSMENT: Pt tolerated today's session fairly well. Pt was motivated to ambulate with PT. PLAN: Cont as per PT POC. TREATMENT CODE/TIME: 3:05-3:20 (15) TA
[2021-10-26] MEDS: Normal Saline 1,000 ML 125 ML IV (17:54)
--- NOTE | 2021-10-26 18:15 | DI.VRAD_ITS ---
PROCEDURE INFORMATION: Exam: CT Head Without Contrast Exam date and time: 10/26/2021 1:31 PM Age: 81 years old Clinical indication: Dizziness TECHNIQUE: Imaging protocol: Computed tomography of the head without contrast. Total images: 1110 COMPARISON: CT SINUS WO 08/03/2021 10:31 AM FINDINGS: Brain: Mild atrophy and white matter disease. No hemorrhage, edema or mass effect. Cerebral ventricles: No hydrocephalus. Basal cisterns are patent. Paranasal sinuses: No mucosal thickening or fluid levels. Mastoid air cells: Mastoid air cells are clear. Orbital cavity: Unremarkable. Bones/joints: No significant bony abnormality. No fracture. Soft tissues: Unremarkable. IMPRESSION: No acute intracranial abnormality. Dictated and Authenticated by: Santiago Gao MD. Ordering:RIGOBERTO Resendiz MD
[2021-10-26] MEDS: rOPINIRole 1 MG TAB 2 MG PO (21:53)
[2021-10-27] VITALS (7 sets, daily range): BP systolic 106–156; BP diastolic 58–81; PULSE 52–80; RESP 18–20; TEMP 36.1–36.8; O2SAT 93–97
[2021-10-27] MEDS: CEFEPIME 1 GM in Normal Saline 50 ML IVPB ×3 (02:08→17:19)
[2021-10-27] MEDS: Levothyroxine 75 MCG TAB PO (06:18)
[2021-10-27 06:48] LABS: Abs Immature Grans 0.16 10^3/uL (0.0-0.06); Absolute Basophil Count 0.02 10^3/uL (0.0-0.2); Absolute Eosinophil Count 0.03 10^3/uL (0.0-0.7); Absolute Lymphocyte Count 0.57 10^3/uL (1.2-3.4); Absolute Monocyte Count 0.51 10^3/uL (0.1-0.8); Absolute Neutrophil Count 9.36 10^3/uL (1.2-6.7); Basophils % 0.2; Eosinophils % 0.3; HCT 34.4 % (40.0-50.0); HGB 11.4 g/dL (13.5-17.5); Immature Grans % 1.5; Lymphocytes % 5.4; MCH 33.5 pg (27.0-33.0); MCHC 33.1 % (32.0-36.0); MCV 101.2 fL (80-95); MPV 10.1 fL (8.0-11.0); Monocytes % 4.8; Neutrophils % 87.8; Nucleated RBC 0 %; Platelet Count 117 10^3/uL (130-400); RDW 12.6 % (11.8-14.1); RDW-SD 47.1 fL; WBC 10.65 10^3/uL (4.4-10.8)
[2021-10-27 07:03] LABS: Anion Gap 8.5 mmol/L (3-11); BUN 33 mg/dL (7-18); CO2 25.5 mmol/L (21.0-32.0); CREATININE 1.5 mg/dL (0.70-1.30); Calcium 8.1 mg/dL (8.5-10.1); Chloride 104 mmol/L (98-107); Estimated GFR 44.92 (mL/min/1.73m2); Glucose 121 mg/dL (74-106); Magnesium 1.9 mg/dL (1.8-2.4); Potassium 3.7 mmol/L (3.5-5.1); Sodium 138 mmol/L (136-145)
--- NOTE | 2021-10-27 08:00 | PTTR_ITS ---
PT Notes Visit Reasons: Pneumonia 10/27/2021 SUBJECTIVE: Feeling better today. Slept well last night. Does note that he has lost strength in his LE's but does not want to over do it. OBJECTIVE: TRANSFERS Supine to sit: SBA Sit to stand: SBA Stand to sit: SBA GAIT Device: FWW Weight bearing: Full Distance: 250' Assist: SBA Deviation: No seated rest breaks needed THEREX: Review hourly seated exercises including ankle pumps, marching and LAQ. Pt performs sit to stands x 3. ASSESSMENT: Tolerates PT well today with increased gait distance without need for seated rest. No complaints of dizziness throughout. Fatigues quickly with LE strengthening exercises. PLAN: Continue per POC increasing LE strength and endurance. Direct time: 15 minutes [id number] Aixa Mendieta PTA Clinic location: [facility] [place], [place]
[2021-10-27] MEDS: Apixaban 5 MG TAB PO ×2 (09:15→20:55)
[2021-10-27] MEDS: Pantoprazole 40 MG TABCR PO (09:15)
[2021-10-27] MEDS: Sertraline 25 MG TAB PO (09:15)
[2021-10-27] MEDS: Montelukast 10 MG TAB PO (09:15)
[2021-10-27] MEDS: predniSONE 5 MG TAB PO (09:15)
[2021-10-27] MEDS: Finasteride 5 MG TAB PO (09:15)
[2021-10-27] MEDS: guaiFENesin 600 MG TABCR 1200 MG PO ×2 (09:15→20:55)
[2021-10-27] MEDS: Normal Saline Flush 10 ML SYR IVP ×3 (09:16→17:22)
[2021-10-27] MEDS: Polyethylene Glycol 3350 17 GM PACKET PO (09:27)
[2021-10-27] MEDS: predniSONE 1 MG TAB 2 MG PO (11:06)
[2021-10-27] MEDS: Fluticasone NASAL SPRAY 16 GM BTL NS ×2 (11:25→20:58)
--- NOTE | 2021-10-27 12:49 | W.PM.PROGNOT ---
Date of Service Date of service: 10/27/21 Time of Service: 12:50 Assessment and Plan Assessment and plan (1) Pneumonia: Start date: 10/27/21 Start time: 12:55 Status: Acute Assessment and plan: no wbc No fever. Not hypoxic. + green sputum; arguably postnasal vs bronchopulmonary. Possibly sinusitis. He did have blood-tinged nasal drainage x1 recently. Given recent hospitalization and no improvement in CXR from that hospitalization, will continue cefepime. MRSA negative d/c vanco Cont prednisone 5 mg daily. add 2 in addition as patient has been on 5 for a long time and when stress dose stopped he felt weak. Dr Rodrigues can evaluate when she is rounding Friday (2) Hypotension: Start date: 10/27/21 Start time: 12:57 Status: Acute Assessment and plan: orthostatic with a 30 point drop when standing BID, orthostatic bp, lasix, losartan held. Flomax held Will continue to monitor. Patient states he is already feeling a little better. The dizziness last for a couple seconds when standing and makes it hard for him to function If he improves will reintroduce flomax and monitor CT was negative (3) Dizziness: Start date: 10/27/21 Start time: 12:59 Status: Acute Assessment and plan: as above (4) Pulmonary emboli: Start date: 10/27/21 Start time: 12:59 Status: Acute Assessment and plan: Cont apixiban (5) Polymyalgia rheumatica: Start date: 10/27/21 Start time: 12:59 Assessment and plan: Initially on 5 mg he has been on this for a long time per patient when stress dose stopped he felt weak and overall not well. Will increase to 7 mg daily and see if this improves weakness. (6) Chronic frontal sinusitis: Start date: 10/27/21 Start time: 13:00 Assessment and plan: Questionably an acute process as well. Cont ipratroprium nasal spray: BID. Add fluticasone nasal spray BID. On cefepime which should provide good coverage. (7) Hypothyroidism: Start date: 10/27/21 Start time: 13:05 Assessment and plan: Cont replacement tx. Qualifiers: Hypothyroidism type: unspecified Qualified Code(s): E03.9 - Hypothyroidism, unspecified (8) DVT prophylaxis: Start date: 10/27/21 Start time: 13:05 Status: Acute Assessment and plan: on apixaban (9) Discharge planning issues: Start date: 10/27/21 Start time: 13:05 Status: Acute Assessment and plan: anticipate a discharge to home when stable, +/- home health services discussed with Dr Reinoso Subjective Subjective Patient reports: no new complaints Interval history since last seen: Still having dizziness when standing but states improved. Stopped bp medication and held lasix. Will continue to monitor dizziness. Orthostatic with a 30 point drop last night going from sitting to standing. If dizzy this afternoon light IVF overnight and reevaluate in the am. He is agreeable to services to help regain strength. Otherwise denies SOB, CP Exam Const General: cooperative and no acute distress Orientation: alert, awake and oriented x3 HENMT Head: normal to inspection Ears: hearing grossly normal bilaterally Mouth: oral mucosae normal Eyes General: appearance normal, both eyes and all related structures Eyelids: eyelids normal Sclera: sclerae normal Neck Neck: normal visual inspection, full ROM, negative Kernig's sign and no JVD Resp Effort & Inspection: normal respiratory effort and able to speak in complete sentences Auscultation: clear to auscultation bilaterally and diminished lung sounds on the left throughout Cardio Rate: regular rate Rhythm: regular rhythm GI Inspection: normal to inspection Palpation: soft, not firm, no guarding and nontender Auscultation: normal bowel sounds Back/Spine/Pelvis Back: no CVA tenderness Skin General skin exam: no rashes or lesions noted Neuro General: patient alert, patient awake and moves all extremities Cognition: normal cognition Speech: speech normal Gait: normal gait Extrem General: normal to inspection, no pedal edema and no calf tenderness Psych Appearance: grossly normal Mental Status: mental status grossly normal Speech and Movement: speech and movement normal Affect: normal affect Thought Process: normal Objective Last Vital Signs Temp 36.1 C L 10/27/21 10:40 Pulse 71 10/27/21 10:40 Resp 18 10/27/21 10:40 BP 106/58 L 10/27/21 10:40 Pulse Ox 93 10/27/21 10:40 Laboratory Results - last 24 hr 10/27/21 10/27/21 06:34 06:34 WBC 10.65 RBC 3.40 L Hgb 11.4 L Hct 34.4 L MCV 101.2 H MCH 33.5 H MCHC 33.1 RDW 12.6 Plt Count 117 L MPV 10.1 Immature Gran % 1.5 Neutrophils % 87.8 Lymphocytes % 5.4 Monocytes % 4.8 Eosinophils % 0.3 Basophils % 0.2 Nucleated RBC % 0 Absolute Neutrophils 9.36 H Absolute Lymphocytes 0.57 L Absolute Monocytes 0.51 Absolute Eosinophils 0.03 Absolute Basophils 0.02 Sodium 138 Potassium 3.7 Chloride 104 Carbon Dioxide 25.5 Anion Gap 8.5 BUN 33 H Creatinine 1.5 H Estimated GFR/1.73 m2 44.92 Glucose 121 H Calcium 8.1 L Magnesium 1.9 PAWSS Have you Been Recently Intoxicated or Drunk Within the Last 30 days?: No Have you Ever Experienced Previous Episodes of Alcohol Withdrawal?: No Have you ever Experienced Withdrawal Seizures?: No Have you ever Experienced Delirium Tremens(DT)s?: No Have you ever undergone Alcohol Rehabilitation Treatment (i.e, inpt ot outpatient treatment programs)?: No Have you ever Experienced Blackouts?: No Have you ever Combined Alcohol with other Downers within the last 90 days?: No Have you ever Combined Alcohol with any other Substance of Abuse during the last 90 days?: No Positive Blood Alcohol level on Presentation? [PCS.BAL]: No Evidence of Increased Autonomic Activity (i.e. HR>120, tremor, sweating, agitation, nausea)?: No Result: 0
[2021-10-27] MEDS: rOPINIRole 1 MG TAB 2 MG PO (21:00)
[2021-10-28] VITALS (11 sets, daily range): BP systolic 89–158; BP diastolic 53–75; PULSE 54–103; RESP 12–20; TEMP 36.4–38.4; O2SAT 91–96
[2021-10-28] MEDS: CEFEPIME 1 GM in Normal Saline 50 ML IVPB ×2 (02:02→10:07)
[2021-10-28] MEDS: Normal Saline Flush 10 ML SYR IVP ×4 (02:06→20:20)
[2021-10-28] MEDS: Levothyroxine 75 MCG TAB PO (05:32)
[2021-10-28 05:57] LABS: Abs Immature Grans 0.18 10^3/uL (0.0-0.06); Absolute Basophil Count 0.04 10^3/uL (0.0-0.2); Absolute Lymphocyte Count 1.06 10^3/uL (1.2-3.4); Absolute Monocyte Count 0.55 10^3/uL (0.1-0.8); Absolute Neutrophil Count 6.73 10^3/uL (1.2-6.7); Basophils % 0.5; Eosinophils % 3.4; HCT 38.6 % (40.0-50.0); HGB 12.2 g/dL (13.5-17.5); MCH 32.9 pg (27.0-33.0); MCHC 31.6 % (32.0-36.0); MPV 10.2 fL (8.0-11.0); Monocytes % 6.2; Neutrophils % 75.9; Nucleated RBC 0 %; Platelet Count 121 10^3/uL (130-400); RBC 3.71 10^6/uL (4.36-5.78); RDW 12.9 % (11.8-14.1); RDW-SD 49.4 fL; WBC 8.86 10^3/uL (4.4-10.8)
--- NOTE | 2021-10-28 06:05 | NUR.NOTE ---
Pt complaining of pressure on the chest with slight headache. corporate ethics officer informed and the MD was notified. Verbal order for Mylanta and tylenol gotten. Informed pt to informed if the pressure increases. Will ct to monitor
[2021-10-28 06:08] LABS: Anion Gap 6.6 mmol/L (3-11); BUN 29 mg/dL (7-18); CO2 27.4 mmol/L (21.0-32.0); CREATININE 1.5 mg/dL (0.70-1.30); Calcium 8.7 mg/dL (8.5-10.1); Chloride 105 mmol/L (98-107); Estimated GFR 44.92 (mL/min/1.73m2); Glucose 79 mg/dL (74-106); Sodium 139 mmol/L (136-145)
[2021-10-28] MEDS: Acetaminophen 325 MG TAB PO ×2 (06:20→13:49)
[2021-10-28] MEDS: Mylanta Suspension 30 ML CUP PO (06:21)
[2021-10-28] MEDS: Polyethylene Glycol 3350 17 GM PACKET PO (09:01)
[2021-10-28] MEDS: Finasteride 5 MG TAB PO (09:03)
[2021-10-28] MEDS: Fluticasone NASAL SPRAY 16 GM BTL NS ×2 (09:03→20:21)
[2021-10-28] MEDS: Apixaban 5 MG TAB PO ×2 (09:03→20:20)
[2021-10-28] MEDS: guaiFENesin 600 MG TABCR 1200 MG PO ×2 (09:04→20:20)
[2021-10-28] MEDS: Montelukast 10 MG TAB PO (09:04)
[2021-10-28] MEDS: Pantoprazole 40 MG TABCR PO (09:05)
[2021-10-28] MEDS: predniSONE 1 MG TAB 2 MG PO (09:05)
[2021-10-28] MEDS: predniSONE 5 MG TAB PO (09:05)
[2021-10-28] MEDS: Sertraline 25 MG TAB PO (09:06)
--- NOTE | 2021-10-28 10:00 | PT.INTREAT ---
PT Notes Visit Reasons: Pneumonia 10/28/2021 SUBJECTIVE: Pt stating he just doesn't feel great this morning. He has had some chills and reports some dizziness with ambulation today. OBJECTIVE: TRANSFERS Supine to sit: SBA Sit to stand: SBA Stand to sit: SBA GAIT Device: FWW Weight bearing: Full Assist: SBA Distance: 250' Deviation: 10' in room without use of FWW TOILETING: Independently ASSESSMENT: No LOB or gait deviations today. He does not feel comfortable walking longer distances without use of FWW today. Reporting some dizziness throughout. Pt rests in seated and standing for at least 1 minute prior to ambulation to make sure he is not too dizzy to ambulate. PLAN: Continue per POC. Treatment time: 15 minutes [id number] Aixa Mendieta PTA Clinic location: [facility] [place], [place]
--- NOTE | 2021-10-28 12:43 | PGE_ITS ---
Date of Service Date of service: 10/28/21 Time of Service: 12:43 Assessment and Plan Assessment and plan (1) Acute otitis media with effusion of left ear: Start date: 10/28/21 Start time: 12:43 Status: Acute Assessment and plan: Patient c/o pain starting in the back of her head going to the top, ear examination revealing severe otitis media with effusion and erythema to bilateratl canals Febrile, likely also contributing to dizziness does not appear well today or feel well. Left TM saucedo unable to visualize right d/t cerumen will order debrox. Switched to clindamycin. Will repeat bc, procal, crp (2) Febrile illness, acute: Start date: 10/28/21 Start time: 12:43 Status: Acute Assessment and plan: due to above as above (3) Acute sinusitis: Start date: 10/28/21 Start time: 12:43 Status: Acute Assessment and plan: as above, on zyrtec as well, not d d/t HTN and PE (4) Pneumonia: Start date: 10/28/21 Start time: 12:43 Status: Ruled-out Assessment and plan: Do not think pna, he does not present as such clinically, LSC, has been afebrile, no breathing issues. Likely this has all been related to unknown otitis media and sinusitis. (5) Hypotension: Start date: 10/28/21 Start time: 12:43 Status: Acute Assessment and plan: Continues to be orthostatic will start LR at 50 as well to see if this improves BID, orthostatic bp, lasix, losartan held. Flomax held Will continue to monitor. CT was negative (6) Dizziness: Start date: 10/28/21 Start time: 12:43 Status: Acute Assessment and plan: as above (7) Pulmonary emboli: Start date: 10/28/21 Start time: 12:43 Status: Acute Assessment and plan: Cont apixiban (8) Polymyalgia rheumatica: Start date: 10/28/21 Start time: 12:43 Assessment and plan: Initially on 5 mg he has been on this for a long time per patient when stress dose stopped he felt weak and overall not well. Will increase to 7 mg daily and see if this improves weakness. (9) Chronic frontal sinusitis: Start date: 10/28/21 Start time: 12:43 Assessment and plan: Definietly acute process. as above, acute on chronic. Cont ipratroprium nasal spray: BID. Add fluticasone nasal spray BID. (10) Hypothyroidism: Start date: 10/28/21 Start time: 12:43 Assessment and plan: Cont replacement tx. Qualifiers: Hypothyroidism type: unspecified Qualified Code(s): E03.9 - Hypothyroidism, unspecified (11) DVT prophylaxis: Start date: 10/28/21 Start time: 12:43 Status: Acute Assessment and plan: on apixaban (12) Discharge planning issues: Start date: 10/28/21 Start time: :43 Status: Acute Assessment and plan: anticipate a discharge to home when stable, +/- home health services discussed with Dr Reinoso Subjective Subjective Patient reports: fever and other Interval history since last seen: Patient not feeling well today, c/o pressure from back of head to front of head. Does not look well either. febrile. Examination with otoscope reveals right ear canal to have severe erythema with cerumen unable to visualize TM. However there is also pain when touching outside of the canal and pinna. Left ear able to vi sualize the TM, entire TM is saucedo with erythema through out the canal. Nasal turbinates are swollen with erythema to both nares. Patient placed on clindamycin and zyrtec. Will repeat blood cx as well. Exam Const General: cooperative and no acute distress Orientation: alert, awake and oriented x3 HENMT Head: normal to inspection Ears: TM's abnormal bilaterally, right TM abnormal and TM abnormal bulging on the left, dull, erythematous bilaterally, obstructed by cerumen on the right, not mobile on the left and other (TM saucedo on left side) General nose exam: external nose not normal, nares abnormal and mucous membranes and turbinates abnormal (swollen turbinates) erythematous Face and sinus: sinuses nontender Mouth: oral mucosae normal Other: Palpable submandibular lympadnopathy Eyes General: appearance normal, both eyes and all related structures Eyelids: eyelids normal Sclera: sclerae normal Neck Neck: normal visual inspection, full ROM, negative Kernig's sign and no JVD Lymphatic: lymphadenopathy bilateral submandibular Chest Chest: normal inspection of the chest Resp Effort & Inspection: normal respiratory effort and able to speak in complete sentences Auscultation: clear to auscultation bilaterally and diminished lung sounds on the left throughout Cardio Rate: regular rate Rhythm: regular rhythm GI Inspection: normal to inspection Palpation: soft, not firm, no guarding and nontender Auscultation: normal bowel sounds Back/Spine/Pelvis Back: no CVA tenderness Skin General skin exam: no rashes or lesions noted Neuro General: patient alert, patient awake and moves all extremities Cognition: normal cognition Speech: speech normal Gait: normal gait Extrem General: normal to inspection, no pedal edema and no calf tenderness Psych Appearance: grossly normal Mental Status: mental status grossly normal Speech and Movement: speech and movement normal Affect: normal affect Thought Process: normal Objective Last Vital Signs Temp 37.8 C H 10/28/21 09:12 Pulse 87 10/28/21 09:21 Resp 20 10/28/21 09:17 BP 110/62 10/28/21 09:21 Pulse Ox 93 10/28/21 09:17 Laboratory Results - last 24 hr 10/28/21 10/28/21 05:15 05:15 WBC 8.86 RBC 3.71 L Hgb 12.2 L Hct 38.6 L MCV 104.0 H MCH 32.9 MCHC 31.6 L RDW 12.9 Plt Count 121 L MPV 10.2 Immature Gran % 2.0 Neutrophils % 75.9 Lymphocytes % 12.0 Monocytes % 6.2 Eosinophils % 3.4 Basophils % 0.5 Nucleated RBC % 0 Absolute Neutrophils 6.73 H Absolute Lymphocytes 1.06 L Absolute Monocytes 0.55 Absolute Eosinophils 0.30 Absolute Basophils 0.04 Sodium 139 Potassium 4.0 Chloride 105 Carbon Dioxide 27.4 Anion Gap 6.6 BUN 29 H Creatinine 1.5 H Estimated GFR/1.73 m2 44.92 Glucose 79 Calcium 8.7 Magnesium 2.0 PAWSS Have you Been Recently Intoxicated or Drunk Within the Last 30 days?: No Have you Ever Experienced Previous Episodes of Alcohol Withdrawal?: No Have you ever Experienced Withdrawal Seizures?: No Have you ever Experienced Delirium Tremens(DT)s?: No Have you ever undergone Alcohol Rehabilitation Treatment (i.e, inpt ot outpatient treatment programs)?: No Have you ever Experienced Blackouts?: No Have you ever Combined Alcohol with other Downers within the last 90 days?: No Have you ever Combined Alcohol with any other Substance of Abuse during the last 90 days?: No Positive Blood Alcohol level on Presentation? [PCS.BAL]: No Evidence of Increased Autonomic Activity (i.e. HR>120, tremor, sweating, agitation, nausea)?: No Result: 0
[2021-10-28] MEDS: Cetirizine 10 MG TAB 5 MG PO (13:50)
[2021-10-28] MEDS: Lactated Ringers 1,000 ML 50 ML IV (15:34)
[2021-10-28] MEDS: CLINDAMYCIN 600 MG/50 ML BAG 100 MG IVPB ×2 (15:35→20:20)
[2021-10-28] MEDS: Carbamide Peroxide 15 ML BTL AU (20:21)
[2021-10-28] MEDS: rOPINIRole 1 MG TAB 2 MG PO (21:57)
[2021-10-29] VITALS (12 sets, daily range): BP systolic 117–161; BP diastolic 62–80; PULSE 67–102; RESP 16–20; TEMP 36.7–38.5; O2SAT 88–98
[2021-10-29] MEDS: CLINDAMYCIN 600 MG/50 ML BAG 100 MG IVPB ×4 (02:02→20:07)
[2021-10-29] MEDS: Acetaminophen 325 MG TAB PO ×3 (03:24→20:07)
[2021-10-29] MEDS: Levothyroxine 75 MCG TAB PO (05:46)
[2021-10-29 07:10] LABS: Lactate 0.7 mmol/L (0.6-1.4)
[2021-10-29 07:11] LABS: Abs Immature Grans 0.15 10^3/uL (0.0-0.06); Absolute Basophil Count 0.01 10^3/uL (0.0-0.2); Absolute Eosinophil Count 0.31 10^3/uL (0.0-0.7); Absolute Lymphocyte Count 0.64 10^3/uL (1.2-3.4); Absolute Monocyte Count 0.35 10^3/uL (0.1-0.8); Absolute Neutrophil Count 6.26 10^3/uL (1.2-6.7); Basophils % 0.1; HGB 11.7 g/dL (13.5-17.5); Immature Grans % 1.9; Lymphocytes % 8.3; MCH 33.2 pg (27.0-33.0); MCHC 33.4 % (32.0-36.0); MCV 99.4 fL (80-95); MPV 9.6 fL (8.0-11.0); Monocytes % 4.5; Neutrophils % 81.2; Nucleated RBC 0 %; Platelet Count 118 10^3/uL (130-400); RBC 3.52 10^6/uL (4.36-5.78); RDW 13.1 % (11.8-14.1); RDW-SD 47.4 fL; WBC 7.72 10^3/uL (4.4-10.8)
[2021-10-29 07:23] LABS: Anion Gap 9.8 mmol/L (3-11); BUN 26 mg/dL (7-18); C-Reactive Protein 11.41 mg/dL (0.0-0.3); CO2 24.2 mmol/L (21.0-32.0); CREATININE 1.3 mg/dL (0.70-1.30); Calcium 8.7 mg/dL (8.5-10.1); Chloride 105 mmol/L (98-107); Estimated GFR 52.98 (mL/min/1.73m2); Glucose 88 mg/dL (74-106); Potassium 3.7 mmol/L (3.5-5.1); Sodium 139 mmol/L (136-145)
[2021-10-29 07:47] LABS: Procalcitonin 0.1 ng/mL
[2021-10-29] MEDS: Apixaban 5 MG TAB PO ×2 (07:50→20:06)
[2021-10-29] MEDS: Carbamide Peroxide 15 ML BTL AU ×2 (07:51→20:07)
[2021-10-29] MEDS: Cetirizine 10 MG TAB 5 MG PO (07:55)
[2021-10-29] MEDS: Finasteride 5 MG TAB PO (07:56)
[2021-10-29] MEDS: Fluticasone NASAL SPRAY 16 GM BTL NS ×2 (07:56→20:08)
[2021-10-29] MEDS: guaiFENesin 600 MG TABCR 1200 MG PO ×2 (07:56→20:06)
[2021-10-29] MEDS: predniSONE 1 MG TAB 2 MG PO (07:57)
[2021-10-29] MEDS: Sertraline 25 MG TAB PO (07:57)
[2021-10-29] MEDS: predniSONE 5 MG TAB PO (07:57)
[2021-10-29] MEDS: Pantoprazole 40 MG TABCR PO (07:57)
[2021-10-29] MEDS: Montelukast 10 MG TAB PO (07:57)
[2021-10-29] MEDS: Normal Saline Flush 10 ML SYR IVP ×3 (07:58→20:10)
--- NOTE | 2021-10-29 08:02 | PCNE_ITS ---
Date of service: 10/29/21 Time of Service: 08:02 History of Present Illness History of Present Illness Chief Complaint: CARNEY, dizziness Narrative: From H and P: This is an 81-year-old male with a history of CHF, polymyalgia rheumatica, CKD who was admitted to [facility] 10/04-10/06/2021 for bilateral PE on Eliquis and pneumonia.? He now presented for persistent headache, dizziness, feeling feverish, nausea, cough with green sputum, and 4 pound weight gain in the last 2 days. Upon arrive his Temp was99 recta. ? Other viitals within normal limits.? He had complaint of headache but denied neck pain and was oriented x3; no meningeal signs per ED provider. White blood cell count 11.13.? Lactate 2.2.? Troponin negative.? BNP 658.? Procalcitonin 0.2.? Urinalysis notes blood but no evidence of infection.? COVID, flu, RSV negative. CXR:?Indistinct patchy bilateral infiltrates without significant interval change. Pulmonary findings on previous admission were, at least in part, thought to be due to inflammatory process.? He was treated with antibiotics and completed an outpt course consisting of cefpodoxime and doxycycline.? He was discharged on a prednisone taper as well. Cefepime and vanocmyin initiated in the ED.? MRSA screen ordered. ? Interim Hx: Yesterday was found to have an otitis media and sinusitis. Continues to be dizzy Hoping to improve and be able to go home, but understands he may need signifi cant help to do this. Also understands he may need to go to rehab initially. He was recently , has children. No designated health care agent. Has been thinking about advanced care planning and thinks he would wants to choose not to have CPR if his heart or breathing stopped. We discussed CPR, the likelihood of it being successful and possibl good and bad outcomes. He was willing to complete paperwork regarding health care agent and designate his wishes regarding CPR. Assessment and Plan Assessment and plan (1) Acute otitis media with effusion of left ear: Status: Acute (2) Advanced care planning/counseling discussion: Status: Acute Assessment and plan: Al did designate his son and daughter as his health care agent. He plans to discuss his wishes with them at a later date. He feels strongly that they would carry out his wishes. HCA form signed and witnessed (3) DNR (do not resuscitate): Status: Acute Assessment and plan: AFter discussion, Al chose not to have CPR and signed the COLST form . He does not want CPR. He still wants to return to the hospital if he got sick, wants antibiotics, IVF. He is uncertain about feeding tube. All questions were answered. I discussed his wishes with hospitalist team. Review of Systems Narrative: continues to be dizzy, headache, facial pain no chest pain PFSH All Active Problems (Updated 10/29/21 @ 21:05 by Yoana Zavaleta MD, [place]) DNR (do not resuscitate) (Acute) Advanced care planning/counseling discussion (Acute) Acute sinusitis (Acute) Acute otitis media with effusion of left ear (Acute) History of pulmonary embolism (Acute) Dizziness (Acute) Discharge planning issues (Acute) DVT prophylaxis (Acute) Hypotension (Acute) SOB (shortness of breath) (Acute) Pulmonary emboli (Acute) Bilateral pneumonia (Acute) Sleep apnea (Chronic) PAD (peripheral artery disease) (Chronic) Medical History BPH (benign prostatic hyperplasia) Chronic ethmoidal sinusitis Chronic frontal sinusitis Chronic kidney disease Deviated nasal septum Dilated aortic root Discharge planning issues DVT prophylaxis E coli bacteremia Fractured rib mid Sept 2018 Hypothyroidism Kidney stone Lyme disease Nasal septal spur Nasal turbinate hypertrophy Parkinsons pt. states he does not have Polymyalgia rheumatica pt. reports he has this not parkinsons Pulmonary fat embolism Pyelonephritis due to Escherichia coli Surgical History Hx of colonoscopy Hx of inguinal hernia surgery Hx of total hip arthroplasty right Social History Smoking/Tobacco Use Status: Former Tobacco Use Quit Date: 09/08/81 Smoking risk assessment performed?: Yes Alcohol Intake: current Alcohol Intake frequency: 0-2 drinks per day Alcohol type: beer and hard liquor Drug use: Never Substance use type: does not use Do you feel safe at home: Yes Do you feel safe in your relationship?: Yes Additional Social history: Abby Flores neightbor/friend [phone] Exam Narrative Exam Narrative: Sitting in his chair, engaging Oriented times three Speaking in complete sentences Heart regular, lungs clear Results Last Vital Signs Temp 99.5 F 10/29/21 07:48 Pulse 76 10/29/21 07:48 Resp 20 10/29/21 07:48 BP 117/64 10/29/21 07:48 Pulse Ox 94 10/29/21 07:49 Labs Result diagrams: 10/29/21 07:00 10/29/21 07:00 Labs: Laboratory Results - last 24 hr 10/29/21 10/29/21 10/29/21 07:00 07:00 07:00 WBC 7.72 RBC 3.52 L Hgb 11.7 L Hct 35.0 L MCV 99.4 H MCH 33.2 H MCHC 33.4 RDW 13.1 Plt Count 118 L MPV 9.6 Immature Gran % 1.9 Neutrophils % 81.2 Lymphocytes % 8.3 Monocytes % 4.5 Eosinophils % 4.0 Basophils % 0.1 Nucleated RBC % 0 Absolute Neutrophils 6.26 Absolute Lymphocytes 0.64 L Absolute Monocytes 0.35 Absolute Eosinophils 0.31 Absolute Basophils 0.01 VBG Lactate 0.7 Sodium 139 Potassium 3.7 Chloride 105 Carbon Dioxide 24.2 Anion Gap 9.8 BUN 26 H Creatinine 1.3 Estimated GFR/1.73 m2 52.98 Glucose 88 Calcium 8.7 C-Reactive Protein 11.41 H Procalcitonin 0.1
--- NOTE | 2021-10-29 10:16 | W.NUTRFU ---
Date of service: 10/29/21 Time of Service: 10:16 Nutrition Note NOTE: Al was admitted 10/24/20 with sinusitis, PNA with hx of CHF, polymyalgia rheumatic, CKD. BMI indicates overweight status. Following heart healthy diet with excellent intake. Not considered at nutritional risk. Will continue to follow. Time Spent in Nutritional Counseling and Treatment: 0
[2021-10-29] MEDS: Polyethylene Glycol 3350 17 GM PACKET PO (10:53)
--- NOTE | 2021-10-29 11:00 | PDOC.CMPRO ---
- If Service Date Differs Date of service: 10/29/21 Time of Service: 11:00 Care Management Progress Note S/O: Jarrod was sitting up in his chair when CM met with him. He reported that he is feeling ok today, but still not at his baseline. He stated that he is concerned that he may require continued rehab, and he does not want to leave too soon. CM discussed his options for discharge, once he is medically cleared. If he is feeling well enough to return home with services, that will be his plan. CM asked if he would like to consider short term rehab, as referrals can be sent now to give him options, in the event that once he is medically cleared he doesn't feel safe returning home. CM will continue to follow. A: Wilfrido is an 81 year old male admitted to [facility] on 10/24/21 with Pneumonia. P: Anticipate Al will return home when medically cleared. His sister will likely drive him home via private vehicle when ready. His home health services will be resumed upon discharge. He will follow up with his PCP and discharge plan of care. CM will continue to follow.
--- NOTE | 2021-10-29 11:54 | PT.INTREAT ---
PT Notes Visit Reasons: Pneumonia 10/29/2021 SUBJECTIVE: Al reporting he feels foggy today. Complains of SOB during and after gait. OBJECTIVE: TRANSFERS Sit to stand: SBA Stand to sit: SBA GAIT Device: FWW Weight bearing: Full Assist: SBA Distance: 300' Deviation no rest breaks VITALS: Sa02 post ambulation 82%, HR 100 b/m. He recovers to 90% post 5 minutes with a HR of 96 b/m. Nursing aware Therex: Defer this AM due to SOB ASSESSMENT: Pt does appear to have more labored breathing today during and after ambulation. Nursing is aware of this. Will continue with functional mobility and strengthening as he is able to tolerate. PLAN: Continue as above. Treatment time: 15 minutes [id number] Aixa Mendieta PTA Clinic location: [facility] [place], [place]
[2021-10-29] MEDS: Butalbital/Acetaminophen/Caffeine 50/325/40 TAB PO ×2 (13:20→18:04)
--- NOTE | 2021-10-29 13:44 | W.PM.PROGNOT ---
Date of Service Date of service: 10/29/21 Time of Service: 13:44 Assessment and Plan Assessment and plan (1) Acute otitis media with effusion of left ear: Start date: 10/29/21 Start time: 13:48 Status: Acute Assessment and plan: Headache today, will give fioricet to help Debrox to help with cleaning ears, recheck ears tomorrow States feeling a little better just having h.a. today no leukocytosis, CRP 11.4, procal 0.1 (2) Acute sinusitis: Start date: 10/29/21 Start time: 13:48 Status: Acute Assessment and plan: as above, on zyrtec as well, (3) Chronic frontal sinusitis: Start date: 10/29/21 Start time: 14:09 Assessment and plan: Definietly acute process. as above, acute on chronic. Cont ipratroprium nasal spray: BID. Add fluticasone nasal spray BID. (4) Febrile illness, acute: Start date: 10/29/21 Start time: 13:54 Status: Resolved Assessment and plan: Last fever was at 1349 on 10/29 (5) Hypotension: Start date: 10/29/21 Start time: 14:06 Status: Acute Assessment and plan: orthostatic at sitting 151 to 117 standing BID, orthostatic bp, lasix, losartan held. Flomax held Will continue to monitor. CT was negative (6) Dizziness: Start date: 10/29/21 Start time: 14:07 Status: Acute Assessment and plan: as above (7) Pulmonary emboli: Start date: 10/29/21 Start time: 14:07 Status: Acute Assessment and plan: Cont apixiban (8) Polymyalgia rheumatica: Start date: 10/29/21 Start time: 14:07 Assessment and plan: Initially on 5 mg he has been on this for a long time per patient when stress dose stopped he felt weak and overall not well. Will increase to 7 mg daily and see if this improves weakness. (9) Hypothyroidism: Start date: 10/29/21 Start time: 14:09 Assessment and plan: Cont replacement tx. Qualifiers: Hypothyroidism type: unspecified Qualified Code(s): E03.9 - Hypothyroidism, unspecified (10) DVT prophylaxis: Start date: 10/29/21 Start time: 14:10 Status: Acute Assessment and plan: on apixaban (11) Discharge planning issues: Start date: 10/29/21 Start time: 12:43 Status: Acute Assessment and plan: anticipate a discharge to home when stable, +/- home health services discussed with Dr Reinoso Subjective Subjective Patient reports: other Interval history since last seen: Patient looks better, c/o headache. Ordered fioricet for headache. Continue clindamycin. Continues to have orthostatic hypotension. Exam Const General: cooperative and no acute distress Orientation: alert, awake and oriented x3 HENMT Head: normal to inspection Ears: TM's abnormal bilaterally, right TM abnormal and TM abnormal bulging on the left, dull, erythematous bilaterally, obstructed by cerumen on the right, not mobile on the left and other (TM saucedo on left side) General nose exam: external nose not normal, nares abnormal and mucous membranes and turbinates abnormal (swollen turbinates) erythematous Face and sinus: sinuses nontender Mouth: oral mucosae normal Other: Palpable submandibular lympadnopathy Eyes General: appearance normal, both eyes and all related structures Eyelids: eyelids normal Sclera: sclerae normal Neck Neck: normal visual inspection, full ROM, negative Kernig's sign and no JVD Lymphatic: lymphadenopathy Chest Chest: normal inspection of the chest Resp Effort & Inspection: normal respiratory effort and able to speak in complete sentences Auscultation: clear to auscultation bilaterally and diminished lung sounds on the left throughout Cardio Rate: regular rate Rhythm: regular rhythm GI Inspection: normal to inspection Palpation: soft, not firm, no guarding and nontender Auscultation: normal bowel sounds Back/Spine/Pelvis Back: no CVA tenderness Skin General skin exam: no rashes or lesions noted Neuro General: patient alert, patient awake and moves all extremities Cognition: normal cognition Speech: speech normal Gait: normal gait Extrem General: normal to inspection, no pedal edema and no calf tenderness Psych Appearance: grossly normal Mental Status: mental status grossly normal Speech and Movement: speech and movement normal Affect: normal affect Thought Process: normal Objective Last Vital Signs Temp 37.3 C 10/29/21 10:56 Pulse 77 10/29/21 10:56 Resp 16 10/29/21 10:56 BP 118/62 10/29/21 10:56 Pulse Ox 92 10/29/21 10:56 Laboratory Results - last 24 hr 10/29/21 10/29/21 10/29/21 07:00 07:00 07:00 WBC 7.72 RBC 3.52 L Hgb 11.7 L Hct 35.0 L MCV 99.4 H MCH 33.2 H MCHC 33.4 RDW 13.1 Plt Count 118 L MPV 9.6 Immature Gran % 1.9 Neutrophils % 81.2 Lymphocytes % 8.3 Monocytes % 4.5 Eosinophils % 4.0 Basophils % 0.1 Nucleated RBC % 0 Absolute Neutrophils 6.26 Absolute Lymphocytes 0.64 L Absolute Monocytes 0.35 Absolute Eosinophils 0.31 Absolute Basophils 0.01 VBG Lactate 0.7 Sodium 139 Potassium 3.7 Chloride 105 Carbon Dioxide 24.2 Anion Gap 9.8 BUN 26 H Creatinine 1.3 Estimated GFR/1.73 m2 52.98 Glucose 88 Calcium 8.7 C-Reactive Protein 11.41 H Procalcitonin 0.1 PAWSS Have you Been Recently Intoxicated or Drunk Within the Last 30 days?: No Have you Ever Experienced Previous Episodes of Alcohol Withdrawal?: No Have you ever Experienced Withdrawal Seizures?: No Have you ever Experienced Delirium Tremens(DT)s?: No Have you ever undergone Alcohol Rehabilitation Treatment (i.e, inpt ot outpatient treatment programs)?: No Have you ever Experienced Blackouts?: No Have you ever Combined Alcohol with other Downers within the last 90 days?: No Have you ever Combined Alcohol with any other Substance of Abuse during the last 90 days?: No Positive Blood Alcohol level on Presentation? [PCS.BAL]: No Evidence of Increased Autonomic Activity (i.e. HR>120, tremor, sweating, agitation, nausea)?: No Result: 0
--- NOTE | 2021-10-29 16:30 | PT.INTREAT ---
PT Notes Visit Reasons: Pneumonia Inpatient Physical Therapy Treatment Note [facility] Date: 10/29/21 Sit-stand: SBA Stand-sit: SBA GAIT Assistive Device: FWW Weight bearing: Full Assist: SBA Distance: 175ft THEREX: Pt completed squats x [address] to fatigue. ASSESSMENT: Pt was fatigued due to just getting back from taking a shower. Pt did have SOB during his session and oxygen was 79%-87%. PLAN: Cont as per PT POC. TREATMENT CODE/TIME: 4:15-4:25 (10) TA
[2021-10-29] MEDS: Albuterol 2.5 MG/3 ML INH SOLN VIAL UPD (20:10)
[2021-10-29] MEDS: rOPINIRole 1 MG TAB 2 MG PO (23:42)
[2021-10-30] MEDS: CLINDAMYCIN 600 MG/50 ML BAG 100 MG IVPB ×4 (01:37→19:49)
[2021-10-30] MEDS: Normal Saline Flush 10 ML SYR IVP ×4 (01:38→20:25)
[2021-10-30 02:57] VITALS: BP 149/76; PULSE 78; RESP 18; TEMP 38; O2SAT 95
[2021-10-30] MEDS: Butalbital/Acetaminophen/Caffeine 50/325/40 TAB PO (03:05)
[2021-10-30] MEDS: Furosemide 20 MG/2 ML VIAL IVP (03:28)
[2021-10-30] MEDS: Levothyroxine 75 MCG TAB PO (05:36)
[2021-10-30 05:42] VITALS: RESP 18; TEMP 37.9; O2SAT 98
[2021-10-30] MEDS: Acetaminophen 325 MG TAB PO (05:49)
[2021-10-30 07:09] LABS: Anion Gap 9.6 mmol/L (3-11); BUN 25 mg/dL (7-18); CO2 25.4 mmol/L (21.0-32.0); CREATININE 1.4 mg/dL (0.70-1.30); Calcium 8.9 mg/dL (8.5-10.1); Chloride 104 mmol/L (98-107); Estimated GFR 48.64 (mL/min/1.73m2); Glucose 113 mg/dL (74-106); Potassium 3.6 mmol/L (3.5-5.1); Sodium 139 mmol/L (136-145)
[2021-10-30 08:06] VITALS: BP 111/63; PULSE 74; RESP 18; TEMP 36.9; O2SAT 92
[2021-10-30] MEDS: guaiFENesin 600 MG TABCR 1200 MG PO ×2 (08:14→19:50)
[2021-10-30] MEDS: Finasteride 5 MG TAB PO (08:15)
[2021-10-30] MEDS: Cetirizine 10 MG TAB 5 MG PO (08:15)
[2021-10-30] MEDS: Montelukast 10 MG TAB PO (08:15)
[2021-10-30] MEDS: Apixaban 5 MG TAB PO ×2 (08:16→19:50)
[2021-10-30] MEDS: predniSONE 5 MG TAB PO (08:17)
[2021-10-30] MEDS: Sertraline 25 MG TAB PO (08:19)
[2021-10-30] MEDS: Pantoprazole 40 MG TABCR PO (08:19)
[2021-10-30] MEDS: predniSONE 1 MG TAB 2 MG PO (08:19)
[2021-10-30 09:40] LABS: Source Nasal/Nares
[2021-10-30 10:19] LABS: COVID-19 PCR Negative (Negative)
[2021-10-30] MEDS: Fluticasone NASAL SPRAY 16 GM BTL NS ×2 (10:28→19:49)
[2021-10-30] MEDS: Carbamide Peroxide 15 ML BTL AU ×2 (10:28→19:48)
[2021-10-30] MEDS: Hydrocortisone SOD SUC. 100 MG VIAL 50 MG IVP (10:29)
--- NOTE | 2021-10-30 11:08 | NT_ITS ---
PT Notes Visit Reasons: Pneumonia 10/30/2021 Pt does not feel up to PT this AM. Will attempt this afternoon. Aixa Mendieta, BLADE WORKER
[2021-10-30] MEDS: Albuterol 2.5 MG/3 ML INH SOLN VIAL UPD (12:46)
[2021-10-30 12:58] LABS: Lactate 1.8 mmol/L (0.6-1.4)
[2021-10-30] MEDS: Furosemide 40 MG/4 ML VIAL IVP (13:06)
[2021-10-30 13:17] LABS: BE -1 mmol/L (-2-3); HCO3 22 mmol/L (22-26); TCO2 23 mmol/L (23-27); pCO2 30 mmHg (35-45); pO2 79 mmHg (80-105); sO2 97 % (95-98)
[2021-10-30 13:18] LABS: FIO2L 0.5 L; Site Right Radial
--- NOTE | 2021-10-30 13:31 | PT.INNT ---
PT Notes Visit Reasons: Pneumonia 10/30/2021 Hold PT per nursing this PM. Aixa Mendieta, MILL BEAM FITTER
--- NOTE | 2021-10-30 14:09 | DI.RAD_ITS ---
Exam(s) XR PORTABLE CHEST AP EXAM: XR PORTABLE CHEST AP CLINICAL HISTORY: SOB TECHNIQUE: COMPARISON: CR,XR XR PORTABLE CHEST AP from 10/24/2021 FINDINGS: Portable AP chest at 1400 hours. Examination is compared with prior examination of October 24. N ote is again made of bilateral patchy and diffuse pulmonary infiltrates, grossly unchanged from the p rior examination. No pleural effusion seen on this frontal view. IMPRESSION: No gross interval change in appearance of bilateral infiltrates in comparison with examination of Oct. RADIATION DOSE DELIVERED: Total DLP
[2021-10-30 15:11] VITALS: BP 118/70; PULSE 102; RESP 20; TEMP 37.5; O2SAT 91
--- NOTE | 2021-10-30 15:29 | CMPROGNOTE_ITS ---
- If Service Date Differs Date of service: 10/30/21 Time of Service: 15:29 Care Management Progress Note S/O: Al was sitting up in his chair when CM visited. He was eating lunch, slowly, was red in the face, and wearing supplemental O2. He stated that he was not feeling well today. CM discussed his plan, which is to remain for IV antibiotics, and once his course is complete, he will likely return home, if he is well enough to. He stated that his goal is to return home, but if he needs to, he will consider short term rehab. CM will continue to follow. A: Wilfrido is an 81 year old male admitted to [facility] on 10/24/21 with Pneumonia. P: Anticipate Al will return home when medically cleared. His sister will likely drive him home via private vehicle when ready. His home health services will be resumed upon discharge. He will follow up with his PCP and discharge plan of care. CM will continue to follow.
[2021-10-30 19:05] VITALS: BP 114/70; PULSE 74; RESP 22; TEMP 36.6; O2SAT 95
[2021-10-30] MEDS: rOPINIRole 1 MG TAB 2 MG PO (21:51)
[2021-10-30 22:40] VITALS: BP 118/68; PULSE 64; RESP 22; TEMP 36.4; O2SAT 94
[2021-10-31] VITALS (8 sets, daily range): BP systolic 122–145; BP diastolic 64–74; PULSE 61–93; RESP 16–22; TEMP 36.1–37.7; O2SAT 86–95
[2021-10-31] MEDS: CLINDAMYCIN 600 MG/50 ML BAG 100 MG IVPB ×4 (01:53→20:17)
[2021-10-31] MEDS: Levothyroxine 75 MCG TAB PO (06:03)
[2021-10-31 06:43] LABS: Abs Immature Grans 0.19 10^3/uL (0.0-0.06); Absolute Basophil Count 0.01 10^3/uL (0.0-0.2); Absolute Eosinophil Count 0.23 10^3/uL (0.0-0.7); Absolute Lymphocyte Count 0.75 10^3/uL (1.2-3.4); Absolute Monocyte Count 0.35 10^3/uL (0.1-0.8); Absolute Neutrophil Count 8.44 10^3/uL (1.2-6.7); Basophils % 0.1; Eosinophils % 2.3; HGB 11.7 g/dL (13.5-17.5); Immature Grans % 1.9; Lymphocytes % 7.5; MCH 33.5 pg (27.0-33.0); MCHC 33.4 % (32.0-36.0); MCV 100.3 fL (80-95); Monocytes % 3.5; Neutrophils % 84.7; Nucleated RBC 0 %; Platelet Count 146 10^3/uL (130-400); RBC 3.49 10^6/uL (4.36-5.78); RDW-SD 48.1 fL; WBC 9.97 10^3/uL (4.4-10.8)
[2021-10-31 06:59] LABS: Anion Gap 8.9 mmol/L (3-11); BUN 32 mg/dL (7-18); CO2 28.1 mmol/L (21.0-32.0); CREATININE 1.5 mg/dL (0.70-1.30); Calcium 8.7 mg/dL (8.5-10.1); Chloride 103 mmol/L (98-107); Estimated GFR 44.92 (mL/min/1.73m2); Glucose 110 mg/dL (74-106); Potassium 3.7 mmol/L (3.5-5.1); Sodium 140 mmol/L (136-145)
[2021-10-31] MEDS: Fluticasone NASAL SPRAY 16 GM BTL NS ×2 (08:00→20:15)
[2021-10-31] MEDS: Carbamide Peroxide 15 ML BTL AU ×2 (08:00→20:17)
[2021-10-31] MEDS: Sertraline 25 MG TAB PO (08:01)
[2021-10-31] MEDS: Pantoprazole 40 MG TABCR PO (08:01)
[2021-10-31] MEDS: Finasteride 5 MG TAB PO (08:01)
[2021-10-31] MEDS: Montelukast 10 MG TAB PO (08:01)
[2021-10-31] MEDS: Cetirizine 10 MG TAB 5 MG PO (08:01)
[2021-10-31] MEDS: predniSONE 5 MG TAB PO (08:01)
[2021-10-31] MEDS: Apixaban 5 MG TAB PO ×2 (08:02→20:14)
[2021-10-31] MEDS: predniSONE 1 MG TAB 2 MG PO (08:02)
[2021-10-31] MEDS: guaiFENesin 600 MG TABCR 1200 MG PO ×2 (08:02→20:14)
--- NOTE | 2021-10-31 09:17 | CMPROGNOTE_ITS ---
- If Service Date Differs Date of service: 10/31/21 Time of Service: 09:17 Care Management Progress Note S/O: Al was sitting up in his chair when CM met with him. He reported that he is feeling ok, but is wondering what is causing him to feel so poorly recently. CM directed his medical questions to the provider, and stated that the goal is for improvement of his symptoms. CM discussed short term rehab, and he agreed to send referrals to [facility] and [facility], which CM sent today. CM will continue to follow. A: Wilfrido is an 81 year old male admitted to [facility] on 10/24/21 with Pneumonia. P: Anticipate Al will return home when medically cleared. His sister will likely drive him home via private vehicle when ready. His home health services will be resumed upon discharge. He will follow up with his PCP and discharge plan of care. CM will continue to follow.
--- NOTE | 2021-10-31 11:22 | PT.INTREAT ---
Date of service: 10/31/21 Time of Service: 11:22 PT Notes Visit Reasons: Pneumonia PT inpatient Treatment Note Date: 10/31/2021 SUBJECTIVE: Agreeable to PT consult. During the walk patient felt that his head feels unwell. Complained of fatigue after session. OBJECTIVE: Pain: Head feeling unwell TRANSFERS: Sit to stand: Standby assist Stand to sit: Standby assist GAIT Device: FWW Weight bearing: FWB Assist: Standby assist Distance: 150 feet +150 feet Deviation: Needed 1 standing rest due to feeling unwell in his head. Minimally short of breath. Desaturated to 84% on 2 L but saturated back to 90% when oxygen was bumped up to 4 L using ear probe oximeter. Blood pressure after walking 150 feet is 145/65 mmHg. Nurse Jaiden updated of patient's status. Therex: Deferred due to points of significance fatigue ASSESSMENT: Patient's vital signs need to be closely monitored during PT sessions. Pulmonary function and low endurance are barriers to achieving goals at this time. DISCHARGE RECOMMENDATIONS: [] Home with no services [] [] Home with services [specify] [] Home with outpatient PT [] [X] SNF for continued rehabilitation. Patient will benefit from assisted facility placement for continued skilled physical therapy services in order to progress mobility level, strength, and balance in preparation for a safe discharge to home. [] Care Home Care [] [] SNF versus LTC based on ability to participate and progress [] Treatment time: 9753 0 x 28 minutes beginning at 11:22 AM.
--- NOTE | 2021-10-31 14:00 | W.PM.PROGNOT ---
Date of Service Date of service: 10/31/21 Time of Service: 14:00 Assessment and Plan Assessment and plan (1) Acute otitis media with effusion of left ear: Status: Acute Assessment and plan: received Debrox to help with cleaning ears States feeling a little better no leukocytosis, CRP 11.4, procal 0.1 (2) Pulmonary emboli: Status: Acute Assessment and plan: Cont apixiban (3) Hypotension: Status: Resolved Assessment and plan: lasix, losartan held. Flomax held Will continue to monitor. (4) Polymyalgia rheumatica: Assessment and plan: Cont prednisone on increased dose d/t weakness (5) Chronic frontal sinusitis: Assessment and plan: Questionably an acute process as well. Cont ipratroprium nasal spray: BID. Cont fluticasone nasal spray BID. (6) Hypothyroidism: Assessment and plan: Cont replacement tx. Qualifiers: Hypothyroidism type: unspecified Qualified Code(s): E03.9 - Hypothyroidism, unspecified (7) DVT prophylaxis: Status: Acute Assessment and plan: on apixaban (8) Discharge planning issues: Status: Acute Assessment and plan: anticipate a discharge to retirement facility. discussed with Dr Singh Subjective Subjective Patient reports: no new complaints Exam Const General: cooperative and no acute distress Orientation: alert, awake and oriented x3 HENMT Head: normal to inspection Ears: hearing grossly normal bilaterally Mouth: oral mucosae normal Eyes General: appearance normal, both eyes and all related structures Eyelids: eyelids normal Sclera: sclerae normal Neck Neck: normal visual inspection, full ROM, negative Kernig's sign and no JVD Resp Effort & Inspection: normal respiratory effort and able to speak in complete sentences Auscultation: clear to auscultation bilaterally and diminished lung sounds on the left throughout Cardio Rate: regular rate Rhythm: regular rhythm GI Inspection: normal to inspection Palpation: soft, not firm, no guarding and nontender Auscultation: normal bowel sounds Back/Spine/Pelvis Back: no CVA tenderness Skin General skin exam: no rashes or lesions noted Neuro General: patient alert, patient awake and moves all extremities Cognition: normal cognition Speech: speech normal Gait: normal gait Extrem General: normal to inspection, no pedal edema and no calf tenderness Psych Appearance: grossly normal Mental Status: mental status grossly normal Speech and Movement: speech and movement normal Affect: normal affect Thought Process: normal Objective Last Vital Signs Temp 37.5 C 10/31/21 11:32 Pulse 84 10/31/21 11:32 Resp 17 10/31/21 11:32 BP 138/71 10/31/21 11:32 Pulse Ox 93 10/31/21 11:32 Laboratory Results - last 24 hr 10/31/21 10/31/21 06:25 06:25 WBC 9.97 RBC 3.49 L Hgb 11.7 L Hct 35.0 L MCV 100.3 H MCH 33.5 H MCHC 33.4 RDW 13.0 Plt Count 146 MPV 10.0 Immature Gran % 1.9 Neutrophils % 84.7 Lymphocytes % 7.5 Monocytes % 3.5 Eosinophils % 2.3 Basophils % 0.1 Nucleated RBC % 0 Absolute Neutrophils 8.44 H Absolute Lymphocytes 0.75 L Absolute Monocytes 0.35 Absolute Eosinophils 0.23 Absolute Basophils 0.01 Sodium 140 Potassium 3.7 Chloride 103 Carbon Dioxide 28.1 Anion Gap 8.9 BUN 32 H Creatinine 1.5 H Estimated GFR/1.73 m2 44.92 Glucose 110 H Calcium 8.7 PAWSS Have you Been Recently Intoxicated or Drunk Within the Last 30 days?: No Have you Ever Experienced Previous Episodes of Alcohol Withdrawal?: No Have you ever Experienced Withdrawal Seizures?: No Have you ever Experienced Delirium Tremens(DT)s?: No Have you ever undergone Alcohol Rehabilitation Treatment (i.e, inpt ot outpatient treatment programs)?: No Have you ever Experienced Blackouts?: No Have you ever Combined Alcohol with other Downers within the last 90 days?: No Have you ever Combined Alcohol with any other Substance of Abuse during the last 90 days?: No Positive Blood Alcohol level on Presentation? [PCS.BAL]: No Evidence of Increased Autonomic Activity (i.e. HR>120, tremor, sweating, agitation, nausea)?: No Result: 0
--- NOTE | 2021-10-31 15:05 | PT.INTREAT ---
PT Notes Visit Reasons: Pneumonia Physical Therapy Inpatient Treatment Note Date: 10/31/2021 SUBJECTIVE: Agreeable to PT session.? OBJECTIVE: Seated at rest pt presents at SpO2 86% on 2L NC. Pt maintained on 2L throughout duration of today's session. THEREX BLEs: LAQ: 1x10 Marchinx10 Ankle pumps: 1x10 Sit to stand: 3x5, two sets completed with UE support, one set completed without UE support during transfer. Pt desaturated to 72% SpO2 during this activity at worst - return to 84% during rest periods.? DISCHARGE RECOMMENDATIONS: [] ? Home with no services [] [X] ? Home with services.? Patient will benefit from home health PT services in order to progress mobility level using least restrictive assistive ambulatory device, assess home safety, identify additional equipment needs, and establish a functional maintenance program that will increase ability of patient to remain at home. [] ? Home with outpatient PT [] [] ? SNF for continued rehabilitation [] [] ? Sensor Technician Care [] [] ? SNF versus LTC based on ability to participate and progress [] TREATMENT CODE/TIME: 31475 x 25 minutes beginning at 2:20 PM.
[2021-10-31] MEDS: Normal Saline Flush 10 ML SYR IVP (20:15)
[2021-10-31] MEDS: Acetaminophen 325 MG TAB PO (21:28)
[2021-10-31] MEDS: rOPINIRole 1 MG TAB 2 MG PO (21:29)
[2021-11-01] VITALS (7 sets, daily range): BP systolic 121–156; BP diastolic 64–82; PULSE 61–99; RESP 18–23; TEMP 36.4–37.9; O2SAT 90–96
[2021-11-01] MEDS: CLINDAMYCIN 600 MG/50 ML BAG 100 MG IVPB ×3 (01:45→14:09)
[2021-11-01] MEDS: Acetaminophen 325 MG TAB PO ×2 (05:44→13:55)
[2021-11-01] MEDS: Levothyroxine 75 MCG TAB PO (05:45)
[2021-11-01] MEDS: Carbamide Peroxide 15 ML BTL AU (08:13)
[2021-11-01] MEDS: Fluticasone NASAL SPRAY 16 GM BTL NS ×2 (08:13→21:10)
[2021-11-01] MEDS: Normal Saline Flush 10 ML SYR IVP ×2 (08:13→14:09)
[2021-11-01] MEDS: Cetirizine 10 MG TAB 5 MG PO (08:14)
[2021-11-01] MEDS: guaiFENesin 600 MG TABCR 1200 MG PO ×2 (08:14→21:09)
[2021-11-01] MEDS: Pantoprazole 40 MG TABCR PO (08:14)
[2021-11-01] MEDS: predniSONE 1 MG TAB 2 MG PO (08:14)
[2021-11-01] MEDS: Sertraline 25 MG TAB PO (08:14)
[2021-11-01] MEDS: predniSONE 5 MG TAB PO (08:14)
[2021-11-01] MEDS: Montelukast 10 MG TAB PO (08:14)
[2021-11-01] MEDS: Finasteride 5 MG TAB PO (08:14)
[2021-11-01] MEDS: Apixaban 5 MG TAB PO ×2 (08:15→21:10)
--- NOTE | 2021-11-01 09:40 | PT.INTREAT ---
Date of service: 11/01/21 Time of Service: 09:40 PT Notes Visit Reasons: Pneumonia PT inpatient Treatment Note Date: 11/01/2021 SUBJECTIVE: Reports of right ear pain that radiates to his righgt forehead and right lower jaw. Complains of discomfort in both legs with ambulation that is relieved with rest. OBJECTIVE: Bluish discoloration in B fingers and hands and increased coldness with ambulation activity Pain: B leg discomfort at 3-4/10; inner ear pain at 5-6/10 with radiation to R temproal and R mandibular areas TRANSFERS: Sit to stand: supervision Stand to sit: supervision GAIT Device: FWW Weight bearing: FWB Assist: Standby assist Distance: 300 feet +50 feet Deviation: Desaturated to 80% which required increase of oxygen supp to 10 L/min with resat back to 90% after at least 5-6 minutes. RT Van black who tried using both the finger oximeter (Iva device) and the ear probe oximeter to test patient's oxygen saturation. He recommended that the finger oximeter is more reliable as it showed good plethysmographic reading. Therex: Desaturated to the low 80s, high 70s with seated B LE exercises after 5 minutes of rest from level surface ambulation ASSESSMENT: Mobility level improving but continued compromised ventilatory function limit ambulation distance and exercise participation at this time. DISCHARGE RECOMMENDATIONS: [] ? Home with no services [] [] ? Home with services [specify] [] ? Home with outpatient PT [] [X] ? SNF for continued rehabilitation.? Patient will benefit from half-way facility placement for continued skilled physical therapy services in order to progress mobility level, strength, and balance in preparation for a safe discharge to home. [] ? Detention Care [] [] ? SNF versus LTC based on ability to participate and progress [] Treatment time: 22995 x 25 minutes, 73532 x 17 minutes beginning at 9:40 AM.
--- NOTE | 2021-11-01 13:38 | W.PALPGNOTE ---
Date of service: 11/01/21 Time of Service: 13:39 Assessment and Plan Assessment and plan (1) Advanced care planning/counseling discussion: Status: Acute (2) DNR (do not resuscitate): Status: Acute (3) Bilateral pneumonia: Status: Acute (4) Acute otitis media with effusion of left ear: Status: Acute (5) Acute sinusitis: Status: Acute (6) History of pulmonary embolism: Status: Acute (7) SOB (shortness of breath): Status: Acute (8) PAD (peripheral artery disease): Status: Chronic (9) Palliative care encounter: Assessment and plan: Jarrod was seen for Palliative follow up today. We reviewed the COLST that he recently completed with Dr. Zavaleta. His wishes re: feeding tube were left blank. After discussion today, he states he does not want a feeding tube. His COLST was updated reflect his wishes. He is a DNR/DNI. He has named his children to be his health care agents. He completed health care agent paperwork with Dr. Zavaleta. He is encouraged to discuss what his wishes are with his agents. He was hoping to go home when he was discharged, however, he clearly states that he does not think he can take care of himself at home alone at this point. PT recommends rehab. He agrees to rehab when he is discharged from the hospital. Follow up with Palliative as an outpatient. Subjective Subjective Interval history since last seen: Jarrod was seen for palliative follow up today. He was seen earlier in the week by Dr. Zavaleta who completed a COLST and a health care agent form. He has named his son and daughter to be health care agents. Care management felt that he would benefit from being seen by Palliative again since his plan has changed. He was originally hoping to go home when he was discharged, however, he does not think he can manage safely at home. He lives alone in [place]. His sister, Melvina lives in [place]. His kids are in [place], [place] and [place]. His sister, Melvina, helps him when needed. He reports that he has not needed a lot of help at home. Although he named his son, Javid and his daughter, Porsha to be his health care agents, he has not discussed his wishes with them. We discussed the importance of making sure his health care agent is aware of what he would want or not want. His COLST indicates that he is a DNR/DNI, he would want transfer to the hospital, feeding tube wishes were not indicated on the form. We discussed the question of whether he would want a feeding tube and he does not. His COLST was updated to indicate that he does not want a feeding tube. He reports that he has a CARNEY that starts in his posterior neck and up into his head. He is eating and drinking and tolerating his diet. He has been OOB with PT. He is still on O2, his saturation drops with activity. Exam Narrative Exam Narrative: General: elderly man, laying in bed, sleeping. He awakened easily to verbal stimuli. He answers questions appropriately. HEENT: normocephalic, atraumatic, EOMI, mucous membranes moist. Neck: supple, no JVD. Respiratory: appears to have increased WOB at rest, wearing oxygen. Extremities: moves all 4 extremities freely. Objective Last Vital Signs Temp 36.8 C 11/01/21 11:44 Pulse 81 11/01/21 11:44 Resp 18 11/01/21 11:44 BP 130/68 11/01/21 11:44 Pulse Ox 94 11/01/21 11:44
--- NOTE | 2021-11-01 15:06 | W.PM.PROGNOT ---
Date of Service Date of service: 11/01/21 Time of Service: 15:06 Assessment and Plan Assessment and plan (1) Acute otitis media with effusion of left ear: Status: Resolved Assessment and plan: received Debrox to help with cleaning ears TM on left clear, TM on right no visualized d/t cerumen. nursing to irrigate, can have ibuprofen with food for a few days for the pain, is on a ppi. monitor for GI symptoms no leukocytosis, CRP 11.4, procal 0.1 (2) Pneumonia: Status: Resolved Assessment and plan: history of B/L pneumonia received cefepime for 4 days, then stopped and placed on clindamycin since, vanco x24 hours until mrsa swab came back negative. 8+ days antibiotics which I will discontinue today. repeat labs in am. white count normalized repeat CXR from 10/30 shows no gross interval change in bilateral infiltrates when compared with oct 24. per pulmonology: - repeat chest CT to assess resolution of infiltrates in 1 months time - PFT's in 2 months (3) Pulmonary emboli: Status: Acute Assessment and plan: Cont apixiban followed by pulmonology will need indefinite anticoagulation (4) Hypotension: Status: Resolved Assessment and plan: lasix, losartan held. Flomax held Will continue to monitor. (5) Polymyalgia rheumatica: Assessment and plan: Cont prednisone on increased dose d/t weakness currently at 7 mg (6) Chronic frontal sinusitis: Assessment and plan: Questionably an acute process as well. Cont ipratroprium nasal spray: BID. Cont fluticasone nasal spray BID. (7) Hypothyroidism: Assessment and plan: Cont replacement tx. Qualifiers: Hypothyroidism type: unspecified Qualified Code(s): E03.9 - Hypothyroidism, unspecified (8) DVT prophylaxis: Status: Acute Assessment and plan: on apixaban (9) Discharge planning issues: Status: Acute Assessment and plan: anticipate a discharge to [facility] facility. discussed with Dr Singh Subjective Subjective Patient reports: no new complaints and afebrile Interval history since last seen: continues with generalized weakness, shortness of breath with activity with hypoxia requiring 6 liter of nc with activity and desats into the 80's. Exam Const General: cooperative and no acute distress Orientation: alert, awake and oriented x3 HENMT Head: normal to inspection Ears: hearing grossly normal bilaterally, right TM abnormal (cerumen), TM normal on the left and unable to visualize TM on the right Mouth: oral mucosae normal Eyes General: appearance normal, both eyes and all related structures Eyelids: eyelids normal Neck Neck: normal visual inspection and full ROM Resp Effort & Inspection: normal respiratory effort and able to speak in complete sentences Auscultation: clear to auscultation bilaterally and diminished lung sounds on the left throughout Cardio Rate: regular rate Rhythm: regular rhythm GI Inspection: normal to inspection Palpation: soft, not firm, no guarding and nontender Auscultation: normal bowel sounds Back/Spine/Pelvis Back: no CVA tenderness Skin General skin exam: no rashes or lesions noted Neuro General: patient alert, patient awake and moves all extremities Cognition: normal cognition Speech: speech normal Gait: normal gait Extrem General: normal to inspection, no pedal edema and no calf tenderness Psych Appearance: grossly normal Mental Status: mental status grossly normal Speech and Movement: speech and movement normal Affect: normal affect Thought Process: normal Objective Last Vital Signs Temp 36.8 C 11/01/21 11:44 Pulse 81 11/01/21 11:44 Resp 18 11/01/21 11:44 BP 130/68 11/01/21 11:44 Pulse Ox 94 11/01/21 11:44 PAWSS Have you Been Recently Intoxicated or Drunk Within the Last 30 days?: No Have you Ever Experienced Previous Episodes of Alcohol Withdrawal?: No Have you ever Experienced Withdrawal Seizures?: No Have you ever Experienced Delirium Tremens(DT)s?: No Have you ever undergone Alcohol Rehabilitation Treatment (i.e, inpt ot outpatient treatment programs)?: No Have you ever Experienced Blackouts?: No Have you ever Combined Alcohol with other Downers within the last 90 days?: No Have you ever Combined Alcohol with any other Substance of Abuse during the last 90 days?: No Positive Blood Alcohol level on Presentation? [PCS.BAL]: No Evidence of Increased Autonomic Activity (i.e. HR>120, tremor, sweating, agitation, nausea)?: No Result: 0
[2021-11-01] MEDS: Lidocaine 5% Patch 1 PATCH TP (17:59)
[2021-11-01] MEDS: Ibuprofen 600 MG TAB PO (18:21)
--- NOTE | 2021-11-01 19:02 | PDOC.CMPRO ---
- If Service Date Differs Date of service: 11/01/21 Time of Service: 19:02 Care Management Progress Note S/O: Al was sleeping when CM attempted to visit him today, twice. Per report, he remains on supplemental O2, and his requirement increases with ambulation. He was seen by Palliative care today, as his plan has changed from his last visit. He was planning on returning home, but due to his prolonged stay and generalized weakness, he has decided that he would benefit from a short term rehab stay. Referrals are pending at the [facility]. CM will continue to follow. A: Wilfrido is an 81 year old male admitted to [facility] on 10/24/21 with Pneumonia. P: Anticipate Al will go to a SNF for short term rehab prior to returning home. His sister will likely drive him home via private vehicle when ready vs facility transportation, if available. He will follow up with his PCP and discharge plan of care. CM will continue to follow.
[2021-11-01] MEDS: rOPINIRole 1 MG TAB 2 MG PO (21:10)
[2021-11-02] VITALS (65 sets, daily range): BP systolic 91–166; BP diastolic 51–94; PULSE 65–109; RESP 1–34; TEMP 36.6–37.4; O2SAT 78–98
--- NOTE | 2021-11-02 | DI.CT_ITS ---
Exam(s) CT SINUS W EXAM: CT SINUS W CLINICAL HISTORY: worsening fullness, otitis media. TECHNIQUE: Imaging Protocol: Axial computed tomography images with coronal and sagittal reformatted images were created and reviewed. No IV Contrast COMPARISON: CT CT HEAD WO from 10/26/2021 FINDINGS: MAXILLARY SINUSES: No significant mucosal thickening nor fluid levels. There is no evidence of bone dehiscence. OSTIOMEATAL UNITS: Patent bilaterally ETHMOIDAL AIR CELLS: Well aerated. No mucosal thickening nor fluid levels. SPHENOID SINUSES: Well aerated. No mucosal thickening nor fluid levels. FRONTAL SINUSES: Well aerated. No mucosal thickening nor fluid levels. NASAL SEPTUM AND TURBINATES:Nasal septum is midline with no evidence of significant nasal septal spur . There is no evidence of lesvia bullosa. IMPRESSION: 1. Unremarkable CT scan of the paranasal sinuses. 2. See separate brain CT scan report RADIATION DOSE DELIVERED: 132.01mGy.cm Total DLP DATA REPOSITORY: All CT scans at this facility are submitted to the National Radiology Data Registry (NRDR) Dose Index Registry (DIR) with the [employer] (ACR). RADIATION OPTIMIZATION: All CT scans at this facility use at least one of these dose optimization te chniques: automated exposure control; mA and/or kV adjustment per patient size (includes targeted exa ms where dose is matched to clinical indication); or iterative reconstruction.
--- NOTE | 2021-11-02 | DI.US_ITS ---
APPROVED REPORT EXAM: Comprehensive 2D, Doppler, and color-flow Echocardiogram Patient Location: In-Patient Room/Bed: 214 Assistant Facility Manager: Paula Romero RDCS (AE) Indications: r/o right heart strain, Limited follow up Other Information Study Quality: Fair. Technically limited study due to body habitus. Conclusion Normal left ventricular size and systolic function The right ventricle is normal size, systolic function appears normal Both atria are normal in size Trileaflet aortic valve Normal tricuspid valve with mild regurgitation. Estimated right ventricular systolic pressure is 38 mmHg Normal pulmonic valve with mild regurgitation Wall motion Left Ventricle The left ventricle is normal size. The left ventricular systolic function is normal. The left ventric ular ejection fraction is within the normal range. There is normal LV segmental wall motion. LVEF is 55-60%. Right Ventricle The right ventricle is normal size. The right ventricular systolic function is normal. Aortic Valve Aortic valve is trileaflet. Mitral Valve The mitral valve is normal in structure. Tricuspid Valve The tricuspid valve is normal in structure. Mild tricuspid regurgitation. Pulmonic Valve The pulmonary valve is normal in structure. Mild pulmonic regurgitation. 2D Dimensions LVEF (Salguero's) 57.08 % M: 52 - 72 LV Vol A2C d MOD 133.6 mL LV Volume 85.28 mL M: 62 - 150 LV Vol A4C d MOD 93.8 mL LV Volume Index 41.60 mL/m2 M: 34 - 74 LA vol/ BSA A2C s A-L 16.6 mL/m2 LV Vol Biplane MOD 114.8 mL LA vol/ BSA A4C s A-L 22.2 mL/m2 LA Vol/ BSA Biplane s A-L 22.5 mL/m2 LA Area A4C s MOD 17.46 cm2 LA Area A2C s MOD 12.91 cm2 LV EF A4C MOD 56.2 % LV EF A2C MOD 55.7 % LV EF Biplane MOD 57.1 % SV 65.50 mL SV Index 31.85 mL/m2 Tricuspid Valve TR Peak Grad 38.2 mmHg TR Vmax 3.09 m/s
[2021-11-02] MEDS: Acetaminophen 325 MG TAB PO ×2 (05:57→19:44)
[2021-11-02] MEDS: Levothyroxine 75 MCG TAB PO (05:58)
[2021-11-02] MEDS: Lidocaine Patch Removal 1 EACH TD (06:00)
[2021-11-02] MEDS: Albuterol 2.5 MG/3 ML INH SOLN VIAL UPD (06:38)
[2021-11-02 07:09] LABS: Abs Immature Grans 0.12 10^3/uL (0.0-0.06); Absolute Basophil Count 0.02 10^3/uL (0.0-0.2); Absolute Lymphocyte Count 0.94 10^3/uL (1.2-3.4); Absolute Monocyte Count 0.26 10^3/uL (0.1-0.8); Absolute Neutrophil Count 6.05 10^3/uL (1.2-6.7); Basophils % 0.3; Eosinophils % 3.9; HCT 36.7 % (40.0-50.0); HGB 11.8 g/dL (13.5-17.5); Immature Grans % 1.6; Lymphocytes % 12.2; MCH 32.9 pg (27.0-33.0); MCHC 32.2 % (32.0-36.0); MCV 102.2 fL (80-95); MPV 9.8 fL (8.0-11.0); Monocytes % 3.4; Neutrophils % 78.6; Nucleated RBC 0 %; Platelet Count 151 10^3/uL (130-400); RBC 3.59 10^6/uL (4.36-5.78); RDW 12.9 % (11.8-14.1); RDW-SD 49.1 fL; WBC 7.69 10^3/uL (4.4-10.8)
[2021-11-02 07:12] LABS: ESR 41 mm/hr (0-20)
[2021-11-02 07:24] LABS: Anion Gap 8.7 mmol/L (3-11); BUN 31 mg/dL (7-18); CO2 29.3 mmol/L (21.0-32.0); CREATININE 1.4 mg/dL (0.70-1.30); Calcium 9.3 mg/dL (8.5-10.1); Chloride 102 mmol/L (98-107); Estimated GFR 48.64 (mL/min/1.73m2); Glucose 101 mg/dL (74-106); Potassium 3.9 mmol/L (3.5-5.1); Sodium 140 mmol/L (136-145)
[2021-11-02 07:46] LABS: C-Reactive Protein > 25.00 mg/dL (0.0-0.3)
[2021-11-02] MEDS: Cetirizine 10 MG TAB 5 MG PO (07:47)
[2021-11-02] MEDS: guaiFENesin 600 MG TABCR 1200 MG PO ×2 (07:48→19:45)
[2021-11-02] MEDS: Finasteride 5 MG TAB PO (07:49)
[2021-11-02] MEDS: Pantoprazole 40 MG TABCR PO (07:49)
[2021-11-02] MEDS: Montelukast 10 MG TAB PO (07:49)
[2021-11-02] MEDS: Sertraline 25 MG TAB PO (07:49)
[2021-11-02] MEDS: predniSONE 5 MG TAB PO (07:49)
[2021-11-02] MEDS: Apixaban 5 MG TAB PO ×2 (07:49→19:45)
[2021-11-02] MEDS: predniSONE 1 MG TAB 2 MG PO (07:49)
[2021-11-02] MEDS: Fluticasone NASAL SPRAY 16 GM BTL NS ×2 (07:50→19:45)
--- NOTE | 2021-11-02 08:19 | DI.CT_ITS ---
Exam(s) CT CHEST PE CTA EXAM: CT CHEST PE CTA CLINICAL HISTORY: Increased oxygen. TECHNIQUE: Imaging Protocol: CT angiography of the chest was performed using pulmonary embolus tosin col. Multi planar reconstructions were performed. CONTRAST MATERIAL: Intravenous: Omnipaque 350 Contrast volume: 100 cc COMPARISON: CT CT CHEST PE CTA from 10/03/2021 FINDINGS: CHEST: PULMONARY ARTERIES: There are no obvious intraluminal filling defects on today's study to suggest acu te pulmonary emboli. LUNGS: Again noted are extensive bilateral pulmonary infiltrates, suspicious for Covid-19 pneumonia a nd without improvement when compared to 10/03/2021. No cavitation evident. There are no pleural eff usions. MEDIASTINUM: There is no hilar nor mediastinal adenopathy. Visualized thyroid unremarkable. CARDIAC: Cardiomegaly again noted. No pericardial effusion. No significant shift of the interventri cular septum. The diameter of the ascending thoracic aorta is again noted be enlarged at 4.5 cm, unc hanged. There is no dissection. PARTIALLY VISUALIZED UPPERMOST ABDOMEN: No obvious findings OSSEOUS: No significant osseous lesions.No acute fractures.. IMPRESSION: 1. There are persistent extensive bilateral pulmonary infiltrates without radiographic improvement co mpared to 10/03/2021..Probably consistent with Covid-19. No significant pleural effusions. No new a denopathy 2. No obvious pulmonary emboli evident on today's study. 3. 4.5 cm diameter ascending thoracic aorta again noted. There is no evidence of aortic dissection. RADIATION DOSE DELIVERED: 489.87mGy.cm Total DLP DATA REPOSITORY: All CT scans at this facility are submitted to the National Radiology Data Registry (NRDR) Dose Index Registry (DIR) with the [employer] (ACR). RADIATION OPTIMIZATION: All CT scans at this facility use at least one of these dose optimization te chniques: automated exposure control; mA and/or kV adjustment per patient size (includes targeted exa ms where dose is matched to clinical indication); or iterative reconstruction.
[2021-11-02] MEDS: Omnipaque 350 MG/ML 100 ML BTL IJ (08:37)
--- NOTE | 2021-11-02 10:02 | PT.INNT ---
PT Notes Visit Reasons: Pneumonia Pt reports that he is fatigued from getting back from his tests and does not feel up to his PT session this am and will try in the afternoon to walk.
--- NOTE | 2021-11-02 10:28 | PDOC.CMPRO ---
- If Service Date Differs Date of service: 11/02/21 Time of Service: 10:28 Care Management Progress Note S/O: Jarrdo was sitting up in his chair when CM met with him. His sister, Melvina, was in the room visiting. CM reviewed the plan with Jarrod and Melvina, stating that Jarrod is currently not medically ready for discharge, but referrals have been sent to the [facility] for consideration. Melvina asked that she be kept informed regarding his discharge plan. Per report, he is not improving, and is now requiring 6L O2 at rest. His steroid dose was increased, and he was restarted on antibiotics. CM will continue to follow. A: Wilfrido is an 81 year old male admitted to [facility] on 10/24/21 with Pneumonia. P: Anticipate Al will go to a SNF for short term rehab prior to returning home. His sister will likely drive him home via private vehicle when ready vs facility transportation, if available. He will follow up with his PCP and discharge plan of care. CM will continue to follow.
[2021-11-02] MEDS: PIPERACILLIN/TAZO 3.375 GM in Normal Saline 50 ML IVPB ×3 (10:34→22:22)
[2021-11-02] MEDS: Normal Saline Flush 10 ML SYR IVP ×4 (10:38→22:31)
[2021-11-02 11:14] LABS: Lab Add On Test done
--- NOTE | 2021-11-02 11:15 | PT.INNT ---
Date of service: 11/02/21 Time of Service: 11:15 PT Notes Visit Reasons: Pneumonia Hold per COFFEE SHOP AIDE Astrid, patient is desaturating to 88% to 89% on 6 L of oxygen per minute while resting supine in bed. Patient is made a PUI as of this morning due to most recent chest CT scan result and will be COVID-19 retested. Will check in with nurse and COFFEE SHOP AIDE in the afternoon to see if PT session is appropriate. Thank you for the opportunity to participate in the care of this patient. Pepper Woodard PT, DPT, CLT [facility] [place], [place]
[2021-11-02 12:27] LABS: COVID-19 PCR Negative (Negative); Source Nasopharynx
--- NOTE | 2021-11-02 14:11 | W.PM.PROGNOT ---
Date of Service Date of service: 11/02/21 Time of Service: 14:11 Assessment and Plan Assessment and plan (1) Cryptogenic organizing pneumonia: Start date: 11/02/21 Start time: 14:11 Status: Acute Assessment and plan: Patient getting worse requiring oxygen at rest. 6 liters SOB when sitting in chair. CT ordered. see not. history of B/L pneumonia received cefepime for 4 days, then stopped and placed on clindamycin since, vanco x24 hours until mrsa swab came back negative. 8+ days dicountinued. repeat labs in am. white count normalized CTA done today as patient condition worsened. CRP went from 11 to greater than 25. revealing multiple infiltrate worse from last CT scan. Patient has course crackles, SOB, febrile, wheezing. U/S done by myself and Dr. cazares, Multiple areas of B lines through the lungs in every field. 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 Imaging pushed to [facility] and [facility]. Patient is acutely ill therefore being moved to ICU He was started on zosyn, vanco, levaquin, methylprednisone 1000 mg daily per up to date guidelines. Transfer to ICU. Consult pulmonology Upodrafts and pulmonary toileting being done, mycoplsam swabs being sent. - PFT's in 2 months (2) Acute otitis media with effusion of left ear: Start date: 11/02/21 Start time: 14:11 Status: Resolved Assessment and plan: received Debrox to help with cleaning ears TM on left clear, TM on right no visualized d/t cerumen. No pain to ears, just c/o CARNEY. Fioricet for CARNEY. (3) Pulmonary emboli: Start date: 11/02/21 Start time: 14:11 Status: Acute Assessment and plan: Cont apixiban followed by pulmonology will need indefinite anticoagulation (4) Hypotension: Start date: 11/02/21 Start time: 14:11 Status: Resolved Assessment and plan: lasix, losartan held. Flomax held, porscar held, continues to have 30-40 point drops with dizziness Teds ordered, initiated on midodirone. Will continue to monitor. (5) Polymyalgia rheumatica: Start date: 11/02/21 Start time: 14:11 Assessment and plan: Cont prednisone on increased dose d/t weakness currently at 7 mg as above increase in steroid (6) Chronic frontal sinusitis: Start date: 11/02/21 Start time: 14:11 Assessment and plan: Resolved acute process. Cont ipratroprium nasal spray: BID. Cont fluticasone nasal spray BID. (7) Hypothyroidism: Start date: 11/02/21 Start time: 14:11 Assessment and plan: Cont replacement tx. Level not checked this admission check in am Qualifiers: Hypothyroidism type: unspecified Qualified Code(s): E03.9 - Hypothyroidism, unspecified (8) DVT prophylaxis: Start date: 11/02/21 Start time: 14:11 Status: Acute Assessment and plan: on apixaban (9) Discharge planning issues: Start date: 11/02/21 Start time: 14:11 Status: Acute Assessment and plan: [facility] discussed with Dr Singh Subjective Subjective Patient reports: shortness of breath Interval history since last seen: Patient with severe SOB requiring 6 liters of oxygen when at rest. Concerning. Echo ordered to r/o right heart strain given PE, CTA ordered, CT of sinuses ordered to r/o abscess. CT reading ?persistent extensive bilateral pulmonary infiltrates without radiographic improvement compared to 10/03/2021..Probably consistent with Covid-19.? No significant pleural effusions.? No new adenopathy. Covid r/o. 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 Hydrocortisone 1000 mg daily. Placed on zosyn, levaquin, and vanco. Patient CRP went from 11 to greater than 25. ESR elevated. He is SOB sitting in chair. He does not look well. Therefore he is being transferred to ICU for better management. Exam Const General: cooperative, not healthy appearing, acute distress and ill appearing acutely Nutritional Appearance: overweight Orientation: alert, awake and oriented x3 HENMT Head: normal to inspection, no palpable skull fracture, normocephalic and atraumatic Ears: right TM abnormal (Cerumen built up), TM normal on the left and unable to visualize TM on the right and on the left (Normal no erythema) Face and sinus: normal facial exam, sinuses nontender and face symmetric Mouth: oral mucosae normal Eyes General: appearance normal, both eyes and all related structures Eyelids: eyelids normal Pupils: PERRL EOM: EOM intact bilaterally Neck Neck: normal visual inspection, full ROM and no lymphadenopathy Lymphatic: no lymphadenopathy noted Chest Chest: normal inspection of the chest Resp Effort & Inspection: abnormal respiratory effort, abnormal respiratory pattern other (SOB while sitting in chair. ), cough, decreased respiratory effort, labored, respiratory distress and tachypneic Auscultation: not clear to auscultation bilaterally, crackles (course) bilaterally and wheezes Cardio Jugular venous pressure: no JVD Palpation: normal PMI Rate: tachycardic Rhythm: regular rhythm GI Inspection: obesity and other (pain with palpation to mid epigastric) Palpation: no hepatosplenomegaly and guarding Auscultation: normal bowel sounds Rectal Exam: visual inspection normal Back/Spine/Pelvis Back: no CVA tenderness Cervical Spine: normal cervical lordosis Thoracic/Lumbar Spine: thoracic and lumbar spine normal to inspection Skin General skin exam: no rashes or lesions noted and other (venous stasis ulceration) Neuro General: patient alert, patient awake and patient oriented x3 Extrem General: abnormal to inspection and pedal edema present (+1) Other: venous stasis ulceration Psych Appearance: grossly normal Mental Status: mental status grossly normal Speech and Movement: speech and movement normal Mood: congruent mood Affect: normal affect Attitude: cooperative Thought Process: normal Thought Content: normal Insight: insight good Judgment: fair Objective Last Vital Signs Temp 37.4 C 11/02/21 13:01 Pulse 91 H 11/02/21 13:01 Resp 18 11/02/21 13:01 BP 123/71 11/02/21 13:01 Pulse Ox 93 11/02/21 13:01 Laboratory Results - last 24 hr 11/02/21 11/02/21 11/02/21 06:45 06:45 06:45 WBC 7.69 RBC 3.59 L Hgb 11.8 L Hct 36.7 L MCV 102.2 H MCH 32.9 MCHC 32.2 RDW 12.9 Plt Count 151 MPV 9.8 Immature Gran % 1.6 Neutrophils % 78.6 Lymphocytes % 12.2 Monocytes % 3.4 Eosinophils % 3.9 Basophils % 0.3 Nucleated RBC % 0 Absolute Neutrophils 6.05 Absolute Lymphocytes 0.94 L Absolute Monocytes 0.26 Absolute Eosinophils 0.30 Absolute Basophils 0.02 ESR 41 H Sodium 140 Potassium 3.9 Chloride 102 Carbon Dioxide 29.3 Anion Gap 8.7 BUN 31 H Creatinine 1.4 H Estimated GFR/1.73 m2 48.64 Glucose 101 Calcium 9.3 C-Reactive Protein > 25.00 H COVID-19 Source SARS-CoV-2 (PCR) Add-On Test Request 11/02/21 11/02/21 06:45 11:00 WBC RBC Hgb Hct MCV MCH MCHC RDW Plt Count MPV Immature Gran % Neutrophils % Lymphocytes % Monocytes % Eosinophils % Basophils % Nucleated RBC % Absolute Neutrophils Absolute Lymphocytes Absolute Monocytes Absolute Eosinophils Absolute Basophils ESR Sodium Potassium Chloride Carbon Dioxide Anion Gap BUN Creatinine Estimated GFR/1.73 m2 Glucose Calcium C-Reactive Protein COVID-19 Source Nasopharynx SARS-CoV-2 (PCR) Negative Add-On Test Request done PAWSS Have you Been Recently Intoxicated or Drunk Within the Last 30 days?: No Have you Ever Experienced Previous Episodes of Alcohol Withdrawal?: No Have you ever Experienced Withdrawal Seizures?: No Have you ever Experienced Delirium Tremens(DT)s?: No Have you ever undergone Alcohol Rehabilitation Treatment (i.e, inpt ot outpatient treatment programs)?: No Have you ever Experienced Blackouts?: No Have you ever Combined Alcohol with other Downers within the last 90 days?: No Have you ever Combined Alcohol with any other Substance of Abuse during the last 90 days?: No Positive Blood Alcohol level on Presentation? [PCS.BAL]: No Evidence of Increased Autonomic Activity (i.e. HR>120, tremor, sweating, agitation, nausea)?: No Result: 0
[2021-11-02] MEDS: Albuterol/Ipratropium 3 ML UPD VIAL UPD ×3 (15:20→22:08)
--- NOTE | 2021-11-02 15:31 | PT.INNT ---
Date of service: 11/02/21 Time of Service: 15:31 PT Notes Visit Reasons: Pneumonia Rechecked patient to see if appropriate for PT. Patient is in mild distress and is reporting fatigue while supine in bed. He is saturating at 85% to 88% on 6 L/minute. Nurse Delaney is currently with patient administering meds. Patient tested negative for COVID-19. Session withheld due to significantly decreased ventilatory threshold and report of fatigue. Will have TELEVISION RECEIVER ANALYZER check on patient tomorrow and touch base with nurse prior to session. Thank you for the opportunity to participate in the care of this patient. Pepper Woodard PT, DPT, CLT [facility] [place], [place]
[2021-11-02 15:33] LABS: NT-proBNP 673 pg/mL (<300)
[2021-11-02] MEDS: Hydrocortisone SOD SUC. 100 MG VIAL 50 MG IVP (15:37)
[2021-11-02] MEDS: VANCOMYCIN/WATER (PEG) 1.5 GM/300 ML BAG IV (15:37)
[2021-11-02] MEDS: Furosemide 40 MG/4 ML VIAL IVP (15:53)
[2021-11-02] MEDS: Midodrine 2.5 MG TAB PO ×2 (15:54→19:45)
[2021-11-02] MEDS: levoFLOXacin 750 MG/150 ML BAG 100 MG IVPB (17:02)
[2021-11-02] MEDS: Lidocaine 5% Patch 1 PATCH TP (18:06)
[2021-11-02] MEDS: Ascorbic Acid 500 MG TAB PO (19:45)
[2021-11-02] MEDS: rOPINIRole 1 MG TAB 2 MG PO (19:45)
[2021-11-02 21:11] LABS: Ferritin 538 ng/mL (22-322)
[2021-11-03] VITALS (135 sets, daily range): BP systolic 98–145; BP diastolic 53–79; PULSE 61–109; RESP 1–32; TEMP 35.9–37.1; O2SAT 84–100
[2021-11-03] MEDS: Albuterol/Ipratropium 3 ML UPD VIAL UPD ×6 (02:20→21:27)
[2021-11-03] MEDS: PIPERACILLIN/TAZO 3.375 GM in Normal Saline 50 ML IVPB ×4 (04:52→22:11)
[2021-11-03] MEDS: Levothyroxine 75 MCG TAB PO (05:07)
[2021-11-03] MEDS: Lidocaine Patch Removal 1 EACH TD (05:49)
[2021-11-03 06:53] LABS: Abs Immature Grans 0.11 10^3/uL (0.0-0.06); Absolute Basophil Count 0.02 10^3/uL (0.0-0.2); Absolute Lymphocyte Count 0.34 10^3/uL (1.2-3.4); Basophils % 0.2; HCT 33.6 % (40.0-50.0); Immature Grans % 1.1; Lymphocytes % 3.3; MCH 32.6 pg (27.0-33.0); MCHC 32.7 % (32.0-36.0); MCV 99.7 fL (80-95); MPV 10.2 fL (8.0-11.0); Neutrophils % 94.4; Nucleated RBC 0 %; Platelet Count 146 10^3/uL (130-400); RBC 3.37 10^6/uL (4.36-5.78); RDW-SD 47.8 fL; WBC 10.34 10^3/uL (4.4-10.8)
[2021-11-03 06:56] LABS: Absolute Neutrophil Count 9.76 10^3/uL (1.2-6.7)
[2021-11-03 07:26] LABS: Anion Gap 12.2 mmol/L (3-11); BUN 33 mg/dL (7-18); CO2 25.8 mmol/L (21.0-32.0); CREATININE 1.6 mg/dL (0.70-1.30); Calcium 8.8 mg/dL (8.5-10.1); Chloride 102 mmol/L (98-107); Estimated GFR 41.69 (mL/min/1.73m2); Glucose 197 mg/dL (74-106); Potassium 3.9 mmol/L (3.5-5.1); Sodium 140 mmol/L (136-145)
[2021-11-03] MEDS: Apixaban 5 MG TAB PO ×2 (08:41→20:23)
[2021-11-03] MEDS: Ascorbic Acid 500 MG TAB PO ×2 (08:42→20:23)
[2021-11-03] MEDS: Cetirizine 10 MG TAB 5 MG PO (08:42)
[2021-11-03] MEDS: Cholecalciferol (Vitamin D3) 1,000 UNIT TAB 2000 UNITS PO (08:42)
[2021-11-03] MEDS: Fluticasone NASAL SPRAY 16 GM BTL NS ×2 (08:43→20:32)
[2021-11-03] MEDS: guaiFENesin 600 MG TABCR 1200 MG PO ×2 (08:43→20:23)
[2021-11-03] MEDS: Pantoprazole 40 MG TABCR PO (08:45)
[2021-11-03] MEDS: Midodrine 2.5 MG TAB PO ×3 (08:45→20:23)
[2021-11-03] MEDS: predniSONE 1 MG TAB 2 MG PO (08:45)
[2021-11-03] MEDS: Montelukast 10 MG TAB PO (08:45)
[2021-11-03] MEDS: Sertraline 25 MG TAB PO (08:46)
[2021-11-03] MEDS: predniSONE 5 MG TAB PO (08:47)
[2021-11-03] MEDS: Normal Saline Flush 10 ML SYR IVP (09:07)
--- NOTE | 2021-11-03 12:10 | NUR.NOTE ---
Patient set up with lunch tray. Patient up in chair.Nursing Note:
[2021-11-03] MEDS: VANCOMYCIN/WATER (PEG) 1.5 GM/300 ML BAG IV (14:32)
--- NOTE | 2021-11-03 14:53 | W.PM.PROGNOT ---
Date of Service Date of service: 11/03/21 Time of Service: 14:54 Assessment and Plan Assessment and plan (1) Pulmonary emboli: Status: Acute Assessment and plan: Cont apixiban (2) Polymyalgia rheumatica: Assessment and plan: Now on stress doing of steroid: methylprednisolone 1 gram daily. (3) Chronic frontal sinusitis: Assessment and plan: Questionably an acute process as well. Cont ipratroprium nasal spray: BID. Add fluticasone nasal spray BID. On cefepime which should provide good coverage. (4) Hypothyroidism: Assessment and plan: Cont replacement tx. Qualifiers: Hypothyroidism type: unspecified Qualified Code(s): E03.9 - Hypothyroidism, unspecified (5) Cryptogenic organizing pneumonia: Status: Acute Assessment and plan: Made ICU status yesterday. Now on Zosyn, vancomycin and levaquin. Imaging concering for [facility]AC[facility]/BOOP. [facility] has his images with request for pulmonary to call for advise. Cont updrafts, pulmonary toileting. Now on high flow nasal cannula and more comfortable with ease of breathing. (6) Hypotension: Status: Resolved Assessment and plan: NOw resolved. His lasix and losartan have been held. Flomax and proscar were held but will resume. Now on midodrine and wearing LUKAS stockings. (7) DVT prophylaxis: Status: Acute Assessment and plan: On apixiban Subjective Subjective Patient reports: no new complaints and afebrile; denies feels better, nausea or vomiting Exam Const General: cooperative, not healthy appearing, no acute distress and ill appearing acutely Nutritional Appearance: overweight Orientation: alert, awake and oriented x3 HENMT Head: normal to inspection and atraumatic Ears: hearing grossly normal bilaterally and TM normal on the left Face and sinus: normal facial exam Mouth: oral mucosae normal Eyes General: appearance normal, both eyes and all related structures Sclera: sclerae normal Neck Neck: normal visual inspection, full ROM and no JVD Resp Effort & Inspection: able to speak in complete sentences Auscultation: not clear to auscultation bilaterally, crackles (course) bilaterally, diminished lung sounds on the left throughout and wheezes (faint) Cardio Jugular venous pressure: no JVD Rate: regular rate and tachycardic Rhythm: regular rhythm GI Inspection: obesity Palpation: soft, not firm, no guarding and nontender Auscultation: normal bowel sounds Back/Spine/Pelvis Back: no CVA tenderness Cervical Spine: normal cervical lordosis Thoracic/Lumbar Spine: thoracic and lumbar spine normal to inspection Skin General skin exam: no rashes or lesions noted and other (venous stasis ulceration) Neuro General: patient alert, patient awake, patient oriented x3 and moves all extremities Cognition: normal cognition Speech: speech normal Extrem General: no calf tenderness and edema Laterality: bilateral (tr) Psych Appearance: grossly normal Mental Status: mental status grossly normal Speech and Movement: speech and movement normal Mood: congruent mood Affect: normal affect Attitude: cooperative Thought Process: normal Thought Content: normal Insight: insight good Judgment: fair Objective Last Vital Signs Temp 36.6 C 11/03/21 12:14 Pulse 89 11/03/21 13:53 Resp 16 11/03/21 13:53 BP 139/79 11/03/21 12:14 Pulse Ox 99 11/03/21 13:53 Laboratory Results - last 24 hr 11/02/21 11/02/21 11/03/21 06:45 06:45 06:30 WBC RBC Hgb Hct MCV MCH MCHC RDW Plt Count MPV Immature Gran % Neutrophils % Lymphocytes % Monocytes % Eosinophils % Basophils % Nucleated RBC % Absolute Neutrophils Absolute Lymphocytes Absolute Monocytes Absolute Eosinophils Absolute Basophils Sodium 140 Potassium 3.9 Chloride 102 Carbon Dioxide 25.8 Anion Gap 12.2 H BUN 33 H Creatinine 1.6 H Estimated GFR/1.73 m2 41.69 Glucose 197 H D Calcium 8.8 Ferritin 538 H NT-Pro-B Natriuret Pep 673 H TSH 0.50 11/03/21 06:30 WBC 10.34 D RBC 3.37 L Hgb 11.0 L Hct 33.6 L MCV 99.7 H MCH 32.6 MCHC 32.7 RDW 13.0 Plt Count 146 MPV 10.2 Immature Gran % 1.1 Neutrophils % 94.4 Lymphocytes % 3.3 Monocytes % 1.0 Eosinophils % 0.0 Basophils % 0.2 Nucleated RBC % 0 Absolute Neutrophils 9.76 H Absolute Lymphocytes 0.34 L Absolute Monocytes 0.10 Absolute Eosinophils 0.00 Absolute Basophils 0.02 Sodium Potassium Chloride Carbon Dioxide Anion Gap BUN Creatinine Estimated GFR/1.73 m2 Glucose Calcium Ferritin NT-Pro-B Natriuret Pep TSH PAWSS Have you Been Recently Intoxicated or Drunk Within the Last 30 days?: No Have you Ever Experienced Previous Episodes of Alcohol Withdrawal?: No Have you ever Experienced Withdrawal Seizures?: No Have you ever Experienced Delirium Tremens(DT)s?: No Have you ever undergone Alcohol Rehabilitation Treatment (i.e, inpt ot outpatient treatment programs)?: No Have you ever Experienced Blackouts?: No Have you ever Combined Alcohol with other Downers within the last 90 days?: No Have you ever Combined Alcohol with any other Substance of Abuse during the last 90 days?: No Positive Blood Alcohol level on Presentation? [PCS.BAL]: No Evidence of Increased Autonomic Activity (i.e. HR>120, tremor, sweating, agitation, nausea)?: No Result: 0
[2021-11-03] MEDS: levoFLOXacin 750 MG/150 ML BAG 100 MG IVPB (17:30)
[2021-11-03] MEDS: Finasteride 5 MG TAB PO (17:56)
[2021-11-03] MEDS: Lidocaine 5% Patch 1 PATCH TP (20:30)
[2021-11-03] MEDS: rOPINIRole 1 MG TAB 2 MG PO (21:27)
[2021-11-03] MEDS: Tamsulosin 0.4 MG CAPCR 0.8 MG PO (21:27)
[2021-11-04] VITALS (42 sets, daily range): BP systolic 101–144; BP diastolic 64–84; PULSE 76–109; RESP 1–36; TEMP 36.2–37.1; O2SAT 89–98
[2021-11-04] MEDS: Albuterol/Ipratropium 3 ML UPD VIAL UPD ×6 (01:55→22:32)
[2021-11-04] MEDS: PIPERACILLIN/TAZO 3.375 GM in Normal Saline 50 ML IVPB ×4 (04:09→22:40)
[2021-11-04] MEDS: Normal Saline Flush 10 ML SYR IVP ×4 (04:45→17:04)
[2021-11-04] MEDS: Levothyroxine 75 MCG TAB PO (06:06)
[2021-11-04] MEDS: Pantoprazole 40 MG TABCR PO (06:07)
[2021-11-04] MEDS: Lidocaine Patch Removal 1 EACH TD (06:07)
[2021-11-04 07:08] LABS: Abs Immature Grans 0.12 10^3/uL (0.0-0.06); Absolute Basophil Count 0.01 10^3/uL (0.0-0.2); Absolute Lymphocyte Count 0.38 10^3/uL (1.2-3.4); Basophils % 0.1; HCT 33.6 % (40.0-50.0); HGB 11.1 g/dL (13.5-17.5); Immature Grans % 0.9; Lymphocytes % 2.7; MCH 32.8 pg (27.0-33.0); MCV 99.4 fL (80-95); MPV 10.8 fL (8.0-11.0); Monocytes % 3.3; Nucleated RBC 0 %; Platelet Count 179 10^3/uL (130-400); RBC 3.38 10^6/uL (4.36-5.78); RDW-SD 47.7 fL; WBC 14.11 10^3/uL (4.4-10.8)
[2021-11-04 07:11] LABS: Absolute Monocyte Count 0.47 10^3/uL (0.1-0.8); Absolute Neutrophil Count 13.12 10^3/uL (1.2-6.7)
[2021-11-04 07:32] LABS: Anion Gap 13.5 mmol/L (3-11); BUN 34 mg/dL (7-18); CO2 24.5 mmol/L (21.0-32.0); CREATININE 1.7 mg/dL (0.70-1.30); Calcium 9.2 mg/dL (8.5-10.1); Chloride 104 mmol/L (98-107); Estimated GFR 38.88 (mL/min/1.73m2); Glucose 203 mg/dL (74-106); Potassium 3.4 mmol/L (3.5-5.1); Sodium 142 mmol/L (136-145)
[2021-11-04] MEDS: Apixaban 5 MG TAB PO ×2 (08:06→18:11)
[2021-11-04] MEDS: Finasteride 5 MG TAB PO (08:07)
[2021-11-04] MEDS: Cholecalciferol (Vitamin D3) 1,000 UNIT TAB 2000 UNITS PO (08:07)
[2021-11-04] MEDS: Cetirizine 10 MG TAB 5 MG PO (08:07)
[2021-11-04] MEDS: Ascorbic Acid 500 MG TAB PO ×2 (08:07→18:11)
[2021-11-04] MEDS: guaiFENesin 600 MG TABCR 1200 MG PO ×2 (08:08→18:11)
[2021-11-04] MEDS: Fluticasone NASAL SPRAY 16 GM BTL NS ×2 (08:08→18:11)
[2021-11-04] MEDS: Sertraline 25 MG TAB PO (08:09)
[2021-11-04] MEDS: predniSONE 1 MG TAB 2 MG PO (08:09)
[2021-11-04] MEDS: predniSONE 5 MG TAB PO (08:09)
[2021-11-04] MEDS: Montelukast 10 MG TAB PO (08:09)
[2021-11-04] MEDS: Midodrine 2.5 MG TAB PO ×3 (08:09→18:11)
[2021-11-04] MEDS: Polyethylene Glycol 3350 17 GM PACKET PO ×2 (08:10→18:13)
--- NOTE | 2021-11-04 11:19 | PGE_ITS ---
Date of Service Date of service: 11/04/21 Time of Service: Assessment and Plan Assessment and plan (1) Pulmonary emboli: Status: Acute Assessment and plan: Cont apixiban (2) Polymyalgia rheumatica: Assessment and plan: Now on stress doing of steroid: methylprednisolone 1 gram daily. (3) Chronic frontal sinusitis: Assessment and plan: Questionably an acute process as well. Cont ipratroprium nasal spray: BID. Add fluticasone nasal spray BID. On cefepime which should provide good coverage. (4) Hypothyroidism: Assessment and plan: Cont replacement tx. Qualifiers: Hypothyroidism type: unspecified Qualified Code(s): E03.9 - Hypothyroidism, unspecified (5) Cryptogenic organizing pneumonia: Status: Acute Assessment and plan: Made ICU status yesterday. Now on Zosyn, vancomycin and levaquin. WBC count has been normal but now elevated at 14.11; questionably steroid effect. 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 [facility] has his images with request for pulmonary to call for advise. Cont updrafts, pulmonary toileting. Now on high flow nasal cannula and more comfortable with ease of breathing. Pulmonary to evaluate tomorrow. (6) Hypotension: Status: Resolved Assessment and plan: Now resolved. His lasix and losartan have been held. Flomax and proscar were held but will resume. Now on midodrine and wearing LUKAS stockings. (7) DVT prophylaxis: Status: Acute Assessment and plan: On apixiban Subjective Subjective Patient reports: afebrile; denies nausea or vomiting Interval history since last seen: Still feeling weak. Fatigues readily with transferring Exam Const General: cooperative, not healthy appearing, no acute distress and ill appearing acutely Nutritional Appearance: overweight Orientation: alert, awake and oriented x3 HENMT Head: normal to inspection and atraumatic Ears: hearing grossly normal bilaterally and TM normal on the left Face and sinus: normal facial exam Mouth: oral mucosae normal Eyes General: appearance normal, both eyes and all related structures Eyelids: eyelids normal Sclera: sclerae normal Neck Neck: normal visual inspection, full ROM, negative Kernig's sign and no JVD Resp Effort & Inspection: normal respiratory effort and able to speak in complete sentences Auscultation: not clear to auscultation bilaterally, crackles (course) bilaterally and diminished lung sounds on the left throughout Cardio Jugular venous pressure: no JVD Rate: regular rate and tachycardic Rhythm: regular rhythm GI Inspection: normal to inspection and obesity Palpation: soft, not firm, no guarding and nontender Auscultation: normal bowel sounds Back/Spine/Pelvis Back: no CVA tenderness Cervical Spine: normal cervical lordosis Thoracic/Lumbar Spine: thoracic and lumbar spine normal to inspection Skin General skin exam: no rashes or lesions noted and other (venous stasis ulceration) Neuro General: patient alert, patient awake, patient oriented x3 and moves all extremities Cognition: normal cognition Speech: speech normal Gait: normal gait Extrem General: normal to inspection, no pedal edema, no calf tenderness and edema Laterality: bilateral (tr) Psych Appearance: grossly normal Mental Status: mental status grossly normal Speech and Movement: speech and movement normal Mood: congruent mood Affect: normal affect Attitude: cooperative Thought Process: normal Thought Content: normal Insight: insight good Judgment: fair Objective Last Vital Signs Temp 36.3 C L 11/04/21 08:37 Pulse 84 11/04/21 10:13 Resp 18 11/04/21 10:13 BP 116/67 11/04/21 08:37 Pulse Ox 97 11/04/21 10:13 Laboratory Results - last 24 hr 11/02/21 11/04/21 11/04/21 15:30 06:40 06:40 WBC 14.11 H D RBC 3.38 L Hgb 11.1 L Hct 33.6 L MCV 99.4 H MCH 32.8 MCHC 33.0 RDW 13.0 Plt Count 179 MPV 10.8 Immature Gran % 0.9 Neutrophils % 93.0 Lymphocytes % 2.7 Monocytes % 3.3 Eosinophils % 0.0 Basophils % 0.1 Nucleated RBC % 0 Absolute Neutrophils 13.12 H Absolute Lymphocytes 0.38 L Absolute Monocytes 0.47 Absolute Eosinophils 0.00 Absolute Basophils 0.01 Sodium 142 Potassium 3.4 L Chloride 104 Carbon Dioxide 24.5 Anion Gap 13.5 H BUN 34 H Creatinine 1.7 H Estimated GFR/1.73 m2 38.88 Glucose 203 H Calcium 9.2 M. pneumoniae Source Cancelled M. pneumoniae (PCR) Cancelled PAWSS Have you Been Recently Intoxicated or Drunk Within the Last 30 days?: No Have you Ever Experienced Previous Episodes of Alcohol Withdrawal?: No Have you ever Experienced Withdrawal Seizures?: No Have you ever Experienced Delirium Tremens(DT)s?: No Have you ever undergone Alcohol Rehabilitation Treatment (i.e, inpt ot outpatien t treatment programs)?: No Have you ever Experienced Blackouts?: No Have you ever Combined Alcohol with other Downers within the last 90 days?: No Have you ever Combined Alcohol with any other Substance of Abuse during the last 90 days?: No Positive Blood Alcohol level on Presentation? [PCS.BAL]: No Evidence of Increased Autonomic Activity (i.e. HR>120, tremor, sweating, agitation, nausea)?: No Result: 0
[2021-11-04] MEDS: VANCOMYCIN/WATER (PEG) 1.5 GM/300 ML BAG IV (13:52)
--- NOTE | 2021-11-04 14:12 | NUR.NOTE ---
RN requests Docusate order from Dr. Marie via [employer] message.Nursing Note:
[2021-11-04] MEDS: Lidocaine 5% Patch 1 PATCH TP (17:01)
[2021-11-04] MEDS: levoFLOXacin 750 MG/150 ML BAG 100 MG IVPB (17:01)
[2021-11-04] MEDS: Docusate Sodium 100 MG CAP PO (19:04)
[2021-11-04 20:10] LABS: Bilirubin Negative (Negative); Blood Large (Negative); Clarity Sl Cloudy (Clear); Glucose Negative (Negative); Ketones Negative (Negative); Leukocyte Esterase Negative (Negative); Nitrite Negative (Negative); Specific Gravity >= 1.030 (1.005-1.025); Urobilinogen 0.2 EU/dL (Up TO 0.2); pH 5.5 (5-8)
[2021-11-04 20:19] LABS: Bacteria Few HPF (Negative); C & S Indicated? No; Crystals Moderate Uric Acid HPF (Negative); Epithelial Cells Negative HPF (Negative); Mucus Negative (Negative); RBC >50 HPF (0-2); WBC 0-2 HPF (0-5)
[2021-11-04] MEDS: Tamsulosin 0.4 MG CAPCR 0.8 MG PO (22:32)
[2021-11-04] MEDS: rOPINIRole 1 MG TAB 2 MG PO (22:32)
[2021-11-04] MEDS: Insulin Aspart 300 UNITS/3 ML PEN SC (22:48)
[2021-11-05] VITALS (28 sets, daily range): BP systolic 126–147; BP diastolic 62–87; PULSE 76–110; RESP 1–29; TEMP 36.1–36.8; O2SAT 87–99
[2021-11-05] MEDS: Albuterol/Ipratropium 3 ML UPD VIAL UPD ×6 (02:13→22:26)
[2021-11-05] MEDS: PIPERACILLIN/TAZO 3.375 GM in Normal Saline 50 ML IVPB ×4 (04:12→22:28)
[2021-11-05] MEDS: Levothyroxine 75 MCG TAB PO (06:13)
[2021-11-05] MEDS: Lidocaine Patch Removal 1 EACH TD (06:57)
--- NOTE | 2021-11-05 07:57 | PCPN_ITS ---
Date of service: 11/05/21 Time of Service: 07:57 Assessment and Plan Assessment and plan (1) Acute kidney injury superimposed on CKD: Status: Acute (2) Pulmonary infiltrate: Status: Acute (3) Advanced care planning/counseling discussion: Status: Acute (4) Palliative care patient: Status: Acute Assessment and plan: Overall AL does understand the gravity of what he has been through. He is hoping that the last 24 hours is indicative of progress that he can make. He is anxious to resume physical therapy so that he can get stronger. He also hopes that this illness is not the beginning of what he should expect for the rest of his life. Dr. Carter will be working to better understand his pulmonary problems. She is ordered many tests. He will have a bronchoscopy but most likely not at our institution. There are referrals into both the [facility] and rehab. I did speak with Dr. Grove about physical therapy. There is a referral in. Hopefully AL will start tomorrow as he is is anxious to improve Subjective Subjective Interval history since last seen: Seen by Pulmonolgy today and steroid and antibiotic changes made. PLan is for a bronchoscopy at a tertiary institution. He understands he will need rehab to be safe at home. Concerned that he will need to make housing changes as he may not be able to keep up home. He can live on a single floor, but there are outside chores. He has a wonderful neighbor who is willing to fill up his woodbox (a danger if he goes home on oxygen!!!!) and shop for him Admits he is discouraged. He states he is feeling much better today. He is hoping for physical therapy. Exam Narrative Exam Narrative: I saw Al both this morning and this evening. He is looking more robust this evening. His heart is regular but somewhat distant. Lungs sound very tight with wheezing. Abdomen soft nontender. Mood much more positive this evening that he was this morning Objective Last Vital Signs Temp 97.0 F L 11/05/21 07:45 Pulse 110 H 11/05/21 07:45 Resp 20 11/05/21 07:45 BP 126/62 11/05/21 04:01 Pulse Ox 96 11/05/21 07:45 Laboratory Results - last 24 hr 11/02/21 11/04/21 11/05/21 15:30 19:35 13:00 Urine Color Yellow Urine Clarity Sl Cloudy Urine pH 5.5 Ur Specific [place] >= 1.030 H Urine Protein 30 H Urine Ketones Negative Urine Blood Large H Urine Nitrite Negative Urine Bilirubin Negative Urine Urobilinogen 0.2 Ur Leukocyte Esterase Negative Urine RBC >50 H Urine WBC 0-2 Ur Epithelial Cells Negative Urine Crystals Moderate Uric Acid Urine Bacteria Few Urine Mucus Negative Ur Culture Indicated? No Urine Glucose Negative Vancomycin Trough Cancelled M. pneumoniae Source Cancelled M. pneumoniae (PCR) Cancelled Laboratory Tests 11/03/21 11/04/21 11/04/21 06:30 06:40 06:40 WBC 10.34 D 14.11 H D Hct 33.6 L ESR Potassium BUN 34 H Creatinine 1.7 H 11/05/21 11/05/21 07:50 07:50 WBC Hct ESR 29 H Potassium 3.4 L BUN [address] Chest IMPRESSION: 1. There are persistent extensive bilateral pulmonary infiltrates without radiographic improvement compared to 10/03/2021..Probably consistent with Covid- 19.? No significant pleural effusions.? No new adenopathy 2. No obvious pulmonary emboli evident on today's study. 3. 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 There is no evidence of aortic dissection.
[2021-11-05 08:13] LABS: ESR 29 mm/hr (0-20)
[2021-11-05] MEDS: Sertraline 25 MG TAB PO (08:18)
[2021-11-05] MEDS: Finasteride 5 MG TAB PO (08:18)
[2021-11-05] MEDS: Apixaban 5 MG TAB PO ×2 (08:18→19:54)
[2021-11-05] MEDS: predniSONE 20 MG TAB 60 MG PO (08:18)
[2021-11-05] MEDS: Polyethylene Glycol 3350 17 GM PACKET PO (08:18)
[2021-11-05] MEDS: Pantoprazole 40 MG TABCR PO (08:18)
[2021-11-05] MEDS: Docusate Sodium 100 MG CAP PO (08:19)
[2021-11-05] MEDS: Ascorbic Acid 500 MG TAB PO ×2 (08:19→19:54)
[2021-11-05] MEDS: Montelukast 10 MG TAB PO (08:19)
[2021-11-05] MEDS: Cetirizine 10 MG TAB 5 MG PO (08:19)
[2021-11-05] MEDS: Cholecalciferol (Vitamin D3) 1,000 UNIT TAB 2000 UNITS PO (08:20)
[2021-11-05] MEDS: guaiFENesin 600 MG TABCR 1200 MG PO ×2 (08:23→19:54)
[2021-11-05] MEDS: Midodrine 2.5 MG TAB PO ×3 (08:25→19:54)
[2021-11-05 08:28] LABS: Anion Gap 14.4 mmol/L (3-11); BUN 41 mg/dL (7-18); CO2 23.6 mmol/L (21.0-32.0); Calcium 9.5 mg/dL (8.5-10.1); Chloride 103 mmol/L (98-107); Estimated GFR 32.23 (mL/min/1.73m2); Glucose 180 mg/dL (74-106); Potassium 3.4 mmol/L (3.5-5.1); Sodium 141 mmol/L (136-145)
[2021-11-05] MEDS: Insulin Aspart 300 UNITS/3 ML PEN SC ×4 (08:28→22:27)
[2021-11-05 08:34] LABS: C-Reactive Protein 9.36 mg/dL (0.0-0.3)
--- NOTE | 2021-11-05 08:39 | CMPROGNOTE_ITS ---
- If Service Date Differs Date of service: 11/05/21 Time of Service: 08:39 Care Management Progress Note S/O: Wilfrido was sitting up in his chair when CM met with him. He was alert an oriented and easily engaged in conversation. He was reading a book on his Ipad, which has been keeping him busy throughout his stay. He is being followed by Pulmonology and is on IV abx and steroids, med changes were made today. He is currently 92% on 3L NC. CM confirmed that he does not have home O2. He is a greeable to SNF for short term rehab prior to returning home. [facility] been [facility] to [facility] and the [facility]. A: Wilfrido is an 81 year old male admitted to [facility] on 10/24/21 with Pneumonia, hypoxic respiratory failure P: Anticipate Al will go to a SNF for short term rehab prior to returning home. His sister will likely drive him home via private vehicle when ready vs facility transportation, if available. He will follow up with his PCP and discharge plan of care. CM will continue to follow.
--- NOTE | 2021-11-05 08:42 | PUCC_ITS ---
General Date of Service Date of service: 11/05/21 Time of Service: 08:30 Reason for Admission to ICU: Hypoxic respiratory failure Assessment and Plan Assessment and plan (1) Pulmonary infiltrate: Status: Acute (2) Acute sinusitis: Status: Acute (3) Acute otitis media with effusion of left ear: Status: Resolved (4) History of pulmonary embolism: Status: Acute (5) Acute kidney injury superimposed on CKD: Status: Acute Assessment and plan: This is a 81 yo man with PMR who was admitted for a pneumonia in September and a RUL PE, who returns earlier this month for shortness of breath. He has been treated for a recurrent sinusitis and received extended courses of several antibiotics for this as well as a pneumonia. 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 He received supratherapeutic dosing of steroids for the past few days so I will change this to a more appropriate steroid dosing regimen for this diagnosis. Additionally, when giving such doses of steroids fungal infection should be ruld out, particularly when the plan is for an extended steroid regimens. His MRSA nares was negative and he has a negative procal. He was on vanco, Zosyn and Levaquin, which liekly contributed to his ANDRZEJ, but I have a very low suspicion for pneumonia, so will discontinue the Levaquin and vancomycin. I will keep the Zosyn on his regimen for now, with plans to discontinue this tomorrow if he remains stable. Ideally, I would do a bronchoscopy on him, however his age and comorbidities are a deterrant as I think he is not appropriate for this procedure at our institution. It is very rare for PMR to have pulmonary sequelae, but I will rule him out for other autoimmune processes. Recommendations Pulmonary: Pulmonary Infiltrates, possible organizing pneumonia - D/C high dose methylprednisilone - start prednisone 60mg PO with the following taper: - 60mg for 7 days, 50mg for 7 days, 40mg for 7 days, 30mg for 7 days, 20mg for 7 days, 10mg for 7 days, 5mg indefinitely (on this as outpatient for PMR) - will need Bactrim DS daily for PJP ppx while on >20mg prednisone daily - ANNIE, anti-dsDNA, SSA/SSB, RF, anti-CCP, ANCA, Scl-70 - Fungitell, urine histo, urine blasto - continue Mucinex, VibraPEP, prn albuterol neb Cardiac: No acute concerns Renal: ANDRZEJ on CKD - suspect iatrogenic from van + zosyn + levaquin - D/C vanco and levaquin - monitor UOP and Cr closely I&O: Intake & Output 11/02/21 11/03/21 11/04/21 11/05/21 23:59 23:59 23:59 23:59 Intake Total 1470 / 1470 1440 / 1440 1670 / 1670 500 / 500 Output Total 2350 / 2350 1050 / 1050 1075 / 1075 225 / 225 Balance -880 / -880 390 / 390 595 / 595 275 / 275 Weight 89.9 kg 90.3 kg 92.6 kg Daily Fluid Goal:: even GI Nutrition: Ok for PO diet Date of Last Bowel Movement: 11/05/21 Infectious Disease: Sinusitis - has been treated by now with all the antibiotics he has been on. - continue nasal spray regimen - plan to D/C Zosyn tomorrow if he remains stable. 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 He was hospitalized 09/29/24 for CHF, RUL PE and a pneumonia. He was treated with antibiotics and I saw him in follow up on 10/11/21 and he was improved at this time, however represented to the ED on 10/24/21. He was started on antibiotics and admitted. 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 He was transfered to the ICU due to worsening respiratory status. He had a very extensive infectious work up completed excluding a fungal work up. Today on my assessment he is feeling okay. He is on 3.5 LPM of oxygen (no home O2). He still has shortness of breath and chest congestion. Exam Narrative Exam Narrative: Gen: NAD, normal respiratory effort, well-nourished HENT: PERRL, nasal turbinates normal without erythema or inflammation, moist oral mucosa, Mallampati 2, No LAD or JVD Chest: No respiratory distress, normal appearance of chest, rales and wheezes diffusely Heart: regular rate and rhythym, no murmurs, rubs or gallops Abdomen: Non-distended, soft, non tender Extremities: No clubbing, edema, cyanosis, rashes Neuro: AAOx3 , non focal Psych: cooperative, appropriate mental affect Most Recent VS/Results Last Vital Signs Temp 36.1 C L 11/05/21 07:45 Pulse 110 H 11/05/21 07:45 Resp 20 11/05/21 07:45 BP 126/62 11/05/21 04:01 Pulse Ox 92 11/05/21 08:22 Laboratory Results - last 24 hr 11/02/21 11/04/21 11/05/21 15:30 19:35 07:50 ESR Sodium 141 Potassium 3.4 L Chloride 103 Carbon Dioxide 23.6 Anion Gap 14.4 H BUN 41 H Creatinine 2.0 H Estimated GFR/1.73 m2 32.23 Glucose 180 H Calcium 9.5 C-Reactive Protein Urine Color Yellow Urine Clarity Sl Cloudy Urine pH 5.5 Ur Specific [place] >= 1.030 H Urine Protein 30 H Urine Ketones Negative Urine Blood Large H Urine Nitrite Negative Urine Bilirubin Negative Urine Urobilinogen 0.2 Ur Leukocyte Esterase Negative Urine RBC >50 H Urine WBC 0-2 Ur Epithelial Cells Negative Urine Crystals Moderate Uric Acid Urine Bacteria Few Urine Mucus Negative Ur Culture Indicated? No Urine Glucose Negative Vancomycin Trough M. pneumoniae Source Cancelled M. pneumoniae (PCR) Cancelled 11/05/21 11/05/21 11/05/21 07:50 07:50 13:00 ESR 29 H Sodium Potassium Chloride Carbon Dioxide Anion Gap BUN Creatinine Estimated GFR/1.73 m2 Glucose Calcium C-Reactive Protein 9.36 H Urine Color Urine Clarity Urine pH Ur Specific [place] Urine Protein Urine Ketones Urine Blood Urine Nitrite Urine Bilirubin Urine Urobilinogen Ur Leukocyte Esterase Urine RBC Urine WBC Ur Epithelial Cells Urine Crystals Urine Bacteria Urine Mucus Ur Culture Indicated? Urine Glucose Vancomycin Trough Cancelled M. pneumoniae Source M. pneumoniae (PCR) Review of Systems All systems reviewed & are unremarkable except as noted in HPI and below Time spent with patient Time spent in Critical Care: 45 Time spent in Critical care included: Coordination of care, Chart review, Documenting critically ill care, Time at immediate bedside and Discussing critically ill care with other medical staff
[2021-11-05] MEDS: Fluticasone NASAL SPRAY 16 GM BTL NS ×2 (09:52→19:54)
--- NOTE | 2021-11-05 15:47 | PGE_ITS ---
Date of Service Date of service: 11/05/21 Time of Service: 15:49 Assessment and Plan Assessment and plan (1) Pulmonary emboli: Status: Deleted Assessment and plan: Cont apixiban (2) Polymyalgia rheumatica: Assessment and plan: Now on stress doing of steroid: methylprednisolone 1 gram daily. (3) Chronic frontal sinusitis: Assessment and plan: Questionably an acute process as well. Cont ipratroprium nasal spray: BID. Add fluticasone nasal spray BID. On cefepime which should provide good coverage. (4) Hypothyroidism: Assessment and plan: Cont replacement tx. Qualifiers: Hypothyroidism type: unspecified Qualified Code(s): E03.9 - Hypothyroi dism, unspecified (5) Cryptogenic organizing pneumonia: Status: Deleted (6) Hypotension: Status: Resolved Assessment and plan: Now resolved. His lasix and losartan have been held. Flomax and proscar were held but will resume. Now on midodrine and wearing LUKAS stockings. (7) DVT prophylaxis: Status: Acute Assessment and plan: On apixiban (8) Pneumonia: Status: Resolved Assessment and plan: Now in ICU Now on Zosyn. Vancomycin and levaquin d/c'd. WBC count has been normal but now elevated at 14.11; questionably steroid effect. 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 Stopped high dose methylprednisolone and now on prednisone 60mg daily for 7 days,then tapering Q7days. Should be on bactrim for PJP ppx while on >20mg prednisone but has h/o of sulfa allergy. Lab ordered: ANNIE, anti-dsDNA, SSA/SSB, RF, anti-CCP, ANCA, Scl-70 Cont updrafts, pulmonary toileting. Now on high flow nasal cannula and more comfortable with ease of breathing. Pulmonary to evaluate tomorrow. (9) Acute kidney injury superimposed on chronic kidney disease: Status: Acute Subjective Subjective Patient reports: afebrile; denies nausea or vomiting Interval history since last seen: Still feeling weak. Fatigues readily with transferring Exam Const General: cooperative, not healthy appearing, no acute distress and ill appearing acutely Nutritional Appearance: overweight Orientation: alert, awake and oriented x3 HENMT Head: normal to inspection and atraumatic Ears: hearing grossly normal bilaterally and TM normal on the left Face and sinus: normal facial exam Mouth: oral mucosae normal Eyes General: appearance normal, both eyes and all related structures Eyelids: eyelids normal Sclera: sclerae normal Neck Neck: normal visual inspection, full ROM, negative Kernig's sign and no JVD Resp Effort & Inspection: normal respiratory effort and able to speak in complete sentences Auscultation: not clear to auscultation bilaterally, crackles (course) bilateral ly, diminished lung sounds on the left throughout and wheezes (faint) Cardio Jugular venous pressure: no JVD Rate: regular rate and tachycardic Rhythm: regular rhythm GI Inspection: normal to inspection and obesity Palpation: soft, not firm, no guarding and nontender Auscultation: normal bowel sounds Back/Spine/Pelvis Back: no CVA tenderness Cervical Spine: normal cervical lordosis Thoracic/Lumbar Spine: thoracic and lumbar spine normal to inspection Skin General skin exam: no rashes or lesions noted and other (venous stasis ulceration) Neuro General: patient alert, patient awake, patient oriented x3 and moves all extremities Cognition: normal cognition Speech: speech normal Gait: normal gait Extrem General: normal to inspection, no calf tenderness and edema Laterality: bilateral (tr) Psych Appearance: grossly normal Mental Status: mental status grossly normal Speech and Movement: speech and movement normal Mood: congruent mood Affect: normal affect Attitude: cooperative Thought Process: normal Thought Content: normal Insight: insight good Judgment: fair Objective Last Vital Signs Temp 36.4 C L 11/05/21 12:00 Pulse 94 H 11/05/21 12:00 Resp 11 L 11/05/21 14:00 BP 131/70 11/05/21 08:01 Pulse Ox 99 11/05/21 14:00 Laboratory Results - last 24 hr 11/02/21 11/04/21 11/05/21 21:09 19:35 07:50 ESR Sodium 141 Potassium 3.4 L Chloride 103 Carbon Dioxide 23.6 Anion Gap 14.4 H BUN 41 H Creatinine 2.0 H Estimated GFR/1.73 m2 32.23 Glucose 180 H Calcium 9.5 C-Reactive Protein Urine Color Yellow Urine Clarity Sl Cloudy Urine pH 5.5 Ur Specific [place] >= 1.030 H Urine Protein 30 H Urine Ketones Negative Urine Blood Large H Urine Nitrite Negative Urine Bilirubin Negative Urine Urobilinogen 0.2 Ur Leukocyte Esterase Negative Urine RBC >50 H Urine WBC 0-2 Ur Epithelial Cells Negative Urine Crystals Moderate Uric Acid Urine Bacteria Few Urine Mucus Negative Ur Culture Indicated? No Urine Glucose Negative Vancomycin Trough Adenovirus DNA Cancelled Human Metapneumovir RNA Cancelled Parainfluenza 1 (PCR) Cancelled Parainfluenza 2 (PCR) Cancelled Parainfluenza 3 (PCR) Cancelled Parainfluenza 4 (PCR) Cancelled Resp Viral Spec Desc Cancelled Rhinovirus (PCR) Cancelled 11/05/21 11/05/21 11/05/21 07:50 07:50 13:00 ESR 29 H Sodium Potassium Chloride Carbon Dioxide Anion Gap BUN Creatinine Estimated GFR/1.73 m2 Glucose Calcium C-Reactive Protein 9.36 H Urine Color Urine Clarity Urine pH Ur Specific [place] Urine Protein Urine Ketones Urine Blood Urine Nitrite Urine Bilirubin Urine Urobilinogen Ur Leukocyte Esterase Urine RBC Urine WBC Ur Epithelial Cells Urine Crystals Urine Bacteria Urine Mucus Ur Culture Indicated? Urine Glucose Vancomycin Trough Cancelled Adenovirus DNA Human Metapneumovir RNA Parainfluenza 1 (PCR) Parainfluenza 2 (PCR) Parainfluenza 3 (PCR) Parainfluenza 4 (PCR) Resp Viral Spec Desc Rhinovirus (PCR) PAWSS Have you Been Recently Intoxicated or Drunk Within the Last 30 days?: No Have you Ever Experienced Previous Episodes of Alcohol Withdrawal?: No Have you ever Experienced Withdrawal Seizures?: No Have you ever Experienced Delirium Tremens(DT)s?: No Have you ever undergone Alcohol Rehabilitation Treatment (i.e, inpt ot outpatient treatment programs)?: No Have you ever Experienced Blackouts?: No Have you ever Combined Alcohol with other Downers within the last 90 days?: No Have you ever Combined Alcohol with any other Substance of Abuse during the last 90 days?: No Positive Blood Alcohol level on Presentation? [PCS.BAL]: No Evidence of Increased Autonomic Activity (i.e. HR>120, tremor, sweating, agitation, nausea)?: No Result: 0
[2021-11-05] MEDS: Normal Saline Flush 10 ML SYR IVP (16:55)
[2021-11-05 17:52] LABS: Rheumatoid Factor 9.3 IU/mL (<12.0)
[2021-11-05] MEDS: Lidocaine 5% Patch 1 PATCH TP (18:05)
[2021-11-05 18:17] LABS: Legionella Ag Detection Urine Negative (Negative)
[2021-11-05] MEDS: Nystatin POWDER 60 GM JAR TP (19:54)
[2021-11-05] MEDS: rOPINIRole 1 MG TAB 2 MG PO (22:25)
[2021-11-05] MEDS: Tamsulosin 0.4 MG CAPCR 0.8 MG PO (22:26)
[2021-11-06] VITALS (9 sets, daily range): BP systolic 138–148; BP diastolic 67–81; PULSE 93–98; RESP 7–22; TEMP 36.2–36.6; O2SAT 93–96
[2021-11-06] MEDS: Albuterol/Ipratropium 3 ML UPD VIAL UPD ×6 (02:08→23:07)
[2021-11-06] MEDS: PIPERACILLIN/TAZO 3.375 GM in Normal Saline 50 ML IVPB ×4 (03:36→23:07)
[2021-11-06] MEDS: Levothyroxine 75 MCG TAB PO (05:47)
[2021-11-06] MEDS: Lidocaine Patch Removal 1 EACH TD (05:49)
[2021-11-06 07:00] LABS: Abs Immature Grans 0.33 10^3/uL (0.0-0.06); Absolute Basophil Count 0.02 10^3/uL (0.0-0.2); Absolute Eosinophil Count 0.01 10^3/uL (0.0-0.7); Absolute Lymphocyte Count 0.52 10^3/uL (1.2-3.4); Absolute Monocyte Count 0.63 10^3/uL (0.1-0.8); Absolute Neutrophil Count 9.24 10^3/uL (1.2-6.7); Basophils % 0.2; Eosinophils % 0.1; HCT 34.4 % (40.0-50.0); HGB 11.3 g/dL (13.5-17.5); Immature Grans % 3.1; Lymphocytes % 4.8; MCH 32.8 pg (27.0-33.0); MCHC 32.8 % (32.0-36.0); MPV 10.5 fL (8.0-11.0); Monocytes % 5.9; Neutrophils % 85.9; Nucleated RBC 0 %; Platelet Count 239 10^3/uL (130-400); RBC 3.44 10^6/uL (4.36-5.78); RDW 13.2 % (11.8-14.1); RDW-SD 48.5 fL; WBC 10.75 10^3/uL (4.4-10.8)
--- NOTE | 2021-11-06 07:00 | PGE_ITS ---
Assessment and Plan Assessment and plan (1) Pulmonary infiltrate: Status: Acute (2) Acute sinusitis: Status: Acute (3) Acute otitis media with effusion of left ear: Status: Resolved (4) History of pulmonary embolism: Status: Acute (5) Acute kidney injury superimposed on CKD: Status: Acute Assessment and plan: This is a 81 yo man with PMR who was admitted for a pneumonia in September and a RUL PE, who returns earlier this month for shortness of breath. He has been treated for a recurrent sinusitis and received extended courses of several antibiotics for this as well as a pneumonia. His repeat chest CT is not overly consistent with POCKET MARKER/BOOP (no real bronchiolitis obliterans seen and prior infection is a clear cause) but more consistent with an organizing pneumonia. Additionally, when giving such doses of steroids fungal infection should be ruled out, particularly when the plan is for an extended steroid regimens. His MRSA nares was negative and he has a negative procal. He was on vanco, Zosyn and Levaquin, which likely contributed to his ANDRZEJ, but I have a very low suspicion for pneumonia, so will discontinue the Levaquin and vancomycin. Zosyn can also now be discontinued. Ideally, I would do a bronchoscopy on him, however his age and comorbidities are a deterrent as I think he is not appropriate for this procedure at our institution. It is very rare for PMR to have pulmonary sequelae, but I will rule him out for other autoimmune processes. Pulmonary Infiltrates, possible organizing pneumonia - D/C high dose methylprednisilone - start prednisone 60mg PO with the following taper: - 60mg for 7 days, 50mg for 7 days, 40mg for 7 days, 30mg for 7 days, 20mg for 7 days, 10mg for 7 days, 5mg indefinitely (on this as outpatient for PMR) - will need Bactrim DS daily for PJP ppx while on >20mg prednisone daily - f/u ANNIE, anti-dsDNA, SSA/SSB, ANCA, Scl-70 - Fungitell, urine histo, urine blasto - continue Mucinex, VibraPEP, prn albuterol neb - rheumatoid screen negative, urine legionella antigen negative Sinusitis - has been treated by now with all the antibiotics he has been on. - continue nasal spray regimen - can D/C Zosyn h/o unprovoked pulmonary embolism - on [facility] General Date Of Service Date of service: 11/06/21 Time of Service: 07:00 Reason for Consult: Abnormal chest CT Subjective Note Note: He is feeling well today. Is not having much trouble with his breathing except for when he takes a very deep breath in he feels a tightness in the center of his chest. His rheumatoid screen came back negative. Urine legionella is negative. Exam Narrative Exam Narrative: Gen: NAD, normal respiratory effort, well-nourished HENT: PERRL, nasal turbinates normal without erythema or inflammation, moist oral mucosa, Mallampati 2, No LAD or JVD Chest: No respiratory distress, normal appearance of chest, rales and wheezes diffusely Heart: regular rate and rhythym, no murmurs, rubs or gallops Abdomen: Non-distended, soft, non tender Extremities: No clubbing, edema, cyanosis, rashes Neuro: AAOx3 , non focal Psych: cooperative, appropriate mental affect Objective Last Vital Signs Temp 36.2 C L 11/06/21 06:41 Pulse 93 H 11/06/21 06:41 Resp 20 11/06/21 06:41 BP 138/71 11/06/21 06:41 Pulse Ox 93 11/06/21 06:41 Laboratory Results - last 24 hr 11/02/21 11/05/21 11/05/21 21:09 07:50 07:50 ESR Sodium 141 Potassium 3.4 L Chloride 103 Carbon Dioxide 23.6 Anion Gap 14.4 H BUN 41 H Creatinine 2.0 H Estimated GFR/1.73 m2 32.23 Glucose 180 H Calcium 9.5 C-Reactive Protein 9.36 H Vancomycin Trough Adenovirus DNA Cancelled Human Metapneumovir RNA Cancelled Parainfluenza 1 (PCR) Cancelled Parainfluenza 2 (PCR) Cancelled Parainfluenza 3 (PCR) Cancelled Parainfluenza 4 (PCR) Cancelled Resp Viral Spec Desc Cancelled Rhinovirus (PCR) Cancelled 11/05/21 11/05/21 07:50 13:00 ESR 29 H Sodium Potassium Chloride Carbon Dioxide Anion Gap BUN Creatinine Estimated GFR/1.73 m2 Glucose Calcium C-Reactive Protein Vancomycin Trough Cancelled Adenovirus DNA Human Metapneumovir RNA Parainfluenza 1 (PCR) Parainfluenza 2 (PCR) Parainfluenza 3 (PCR) Parainfluenza 4 (PCR) Resp Viral Spec Desc Rhinovirus (PCR) Results Medications Medications: Active Medications Generic Name Dose Route Start Last Admin Trade Name Freq PRN Reason Stop Dose Admin Acetaminophen 0 mg 10/24/21 18:34 11/02/21 19:44 Acetaminophen 325 Mg Tab PO 650 mg Q4H PRN PRN Administration Acetaminophen/Aspirin/Caffeine 2 each 11/02/21 17:01 Acetaminophen 250 Mg/Aspirin 250 Mg/Caffeine 65 Mg Tab PO Q6H PRN PRN Al Hydrox/Mg Hydrox/Simethicone 30 ml 10/28/21 06:00 10/28/21 06:21 Mylanta Suspension 30 Ml Cup PO 30 ml Q4H PRN PRN Administration Albuterol Sulfate 2.5 mg 10/24/21 18:34 11/02/21 06:38 Albuterol 2.5 Mg/3 Ml Inh Soln Vial UPD 2.5 mg Q2H PRN PRN Administration Albuterol/Ipratropium 3 ml 11/02/21 14:00 11/06/21 05:48 Albuterol/Ipratropium 3 Ml Upd Vial UPD 3 ml Q4H DEVENDRA Administration Apixaban 5 mg 10/24/21 20:00 11/05/21 19:54 Apixaban 5 Mg Tab PO 5 mg BID DEVENDRA Administration Ascorbic Acid 500 mg 11/02/21 20:00 11/05/21 19:54 Ascorbic Acid 500 Mg Tab PO 500 mg BID DEVENDRA Administration Cetirizine HCl 5 mg 10/28/21 12:30 11/05/21 08:19 Cetirizine 10 Mg Tab PO 5 mg DAILY DEVENDRA Administration Cholecalciferol 2,000 units 11/03/21 08:30 11/05/21 08:20 Cholecalciferol (Vitamin D3) 1,000 Unit Tab PO 2,000 units DAILY DEVENDRA Administration Dimethicone/Zinc Oxide 0 gm 10/24/21 18:34 Christina Protect Cream 142 Gm Tube TP PRN PRN Docusate Sodium 100 mg 11/04/21 20:00 11/05/21 19:55 Docusate Sodium 100 Mg Cap PO Not Given BID DEVENDRA Finasteride 5 mg 11/03/21 15:10 11/05/21 08:18 Finasteride 5 Mg Tab PO 5 mg DAILY DEVENDRA Administration Fluticasone Propionate 16 gm 10/25/21 08:30 11/05/21 19:54 Fluticasone Nasal [place] 16 Gm Btl NS 4 sprays BID DEVENDRA Administration Guaifenesin 1,200 mg 10/25/21 08:30 11/05/21 19:54 Guaifenesin 600 Mg Tabcr PO 1,200 mg BID DEVENDRA Administration Piperacillin Sod/Tazobactam 50 mls @ 100 mls/hr 11/02/21 10:00 11/06/21 03:36 Sod 3.375 gm/ Sodium Chloride IVPB 100 mls/hr Q6H DEVENDRA Administration Protocol Insulin Aspart 0 units 11/04/21 22:00 11/05/21 22:27 Insulin Aspart 300 Units/3 Ml Pen SC 2 unit 0800,1200,1700,2200 DEVENDRA Administration Protocol Ipratropium [place] 0 ml 10/25/21 08:30 11/05/21 19:54 Ipratropium 0.03% 30 Ml Btl NS 4 sprays BID DEVENDRA Administration Lactobacillus Acidophilus/Casei 1 cap 11/03/21 08:30 11/05/21 08:18 L. Acidophilus, Casei, Rhamnosus Cap PO 1 cap DAILY DEVENDRA Administration Levothyroxine Sodium 75 mcg 10/26/21 06:00 11/06/21 05:47 Levothyroxine 75 Mcg Tab PO 75 mcg DAILY@0600 DEVENDRA Administration Lidocaine 1 patch 11/01/21 18:00 11/05/21 18:05 Lidocaine 5% Patch TP 1 patch Q24H DEVENDRA Administration Midodrine 2.5 mg 11/02/21 15:00 11/05/21 19:54 Midodrine 2.5 Mg Tab PO 2.5 mg TID DEVENDRA Administration Miscellaneous 1 each 11/02/21 06:00 11/06/21 05:49 Lidocaine Patch Removal TD 1 each Q24H DEVENDRA Administration Montelukast Sodium 10 mg 10/25/21 08:30 11/05/21 08:19 Montelukast 10 Mg Tab PO 10 mg DAILY DEVENDRA Administration Nystatin 0 gm 11/05/21 20:00 11/05/21 19:54 Nystatin Powder 60 Gm Jar TP 1 applic BID DEVENDRA Administration Ondansetron HCl 4 mg 10/28/21 12:42 Ondansetron 4 Mg/2 Ml Vial IVP Q4H PRN PRN Pantoprazole Sodium 40 mg 10/26/21 07:30 11/05/21 08:18 Pantoprazole 40 Mg Tabcr PO 40 mg DAILY@0730 DEVENDRA Administration Polyethylene Glycol 17 gm 11/04/21 14:45 11/05/21 08:18 Polyethylene Glycol 3350 17 Gm Packet PO 17 gm DAILY DEVENDRA Administration Prednisone 60 mg 11/05/21 08:30 11/05/21 08:18 Prednisone 20 Mg Tab PO 60 mg DAILY DEVENDRA Administration Ropinirole HCl 2 mg 10/24/21 22:00 11/05/21 22:25 Ropinirole 1 Mg Tab PO 2 mg HS DEVENDRA Administration Sertraline HCl 25 mg 10/25/21 08:30 11/05/21 08:18 Sertraline 25 Mg Tab PO 25 mg DAILY DEVENDRA Administration Sodium Chloride 0 ml 10/24/21 20:59 11/05/21 16:55 Normal Saline Flush 10 Ml Syr IVP 10 ml PRN PRN Administration Tamsulosin HCl 0.8 mg 11/03/21 22:00 11/05/21 22:26 Tamsulosin 0.4 Mg Capcr PO 0.8 mg HS DEVENDRA Administration Allergies Sulfa (Sulfonamide Antibiotics) Adverse Reaction (Intermediate, Verified 10/24/21 16:31) Its been along time cat dander Adverse Reaction (Mild, Verified 10/24/21 16:31) penicillin V Adverse Reaction (Mild, Verified 10/24/21 16:31) nausea salicylates Adverse Reaction (Mild, Verified 10/24/21 16:31) up set stomach Labs Result Diagrams: 11/06/21 06:21 11/06/21 06:21 Labs: 11/02/21 15:30 Sputum Sputum Culture - Final Gram Negative Shannan,Mixed Normal Shannan 11/02/21 15:30 Sputum Gram Stain - Final 10/29/21 23:00 Blood Blood Culture - Final NO GROWTH 120 HOURS 10/29/21 22:45 Blood Blood Culture - Final NO GROWTH 120 HOURS 10/28/21 14:19 Blood Blood Culture - Final NO GROWTH 120 HOURS 10/28/21 14:19 Blood Blood Culture - Final NO GROWTH 120 HOURS 10/30/21 10:17 Nasopharynx Influenza Types A,B Antigen - Final 10/24/21 17:39 Blood Blood Culture - Final NO GROWTH 120 HOURS 10/24/21 17:30 Blood Blood Culture - Final NO GROWTH 120 HOURS 10/24/21 18:55 Nose MRSA Screen - Final Laboratory Tests Range/Units 10/24/21 10/24/21 10/24/21 16:55 16:55 16:55 WBC (4.4-10.8) 10^3/uL 11.13 H RBC (4.36-5.78) 10^6/uL 3.91 L Hgb (13.5-17.5) g/dL 13.1 L Hct (40.0-50.0) % 39.0 L MCV (80-95) fL 99.7 H MCH (27.0-33.0) pg 33.5 H MCHC (32.0-36.0) % 33.6 RDW (11.8-14.1) % 12.4 Plt Count (130-400) 10^3/uL 133 D MPV (8.0-11.0) fL 10.0 Immature Gran % 2.3 Neutrophils % 89.6 Lymphocytes % 2.8 Monocytes % 4.9 Eosinophils % 0.2 Basophils % 0.2 Nucleated RBC % % 0 Absolute Neutrophils (1.2-6.7) 10^3/uL 9.97 H Absolute Lymphocytes (1.2-3.4) 10^3/uL 0.31 L Absolute Monocytes (0.1-0.8) 10^3/uL 0.55 Absolute Eosinophils (0.0-0.7) 10^3/uL 0.02 Absolute Basophils (0.0-0.2) 10^3/uL 0.02 ESR (0-20) mm/hr Sample Site ABG Sample Site ABG pH (7.35-7.45) ABG pCO2 (35-45) mmHg ABG pO2 (80-105) mmHg ABG HCO3 (22-26) mmol/L ABG Total CO2 (23-27) mmol/L ABG O2 Saturation (95-98) % ABG Base Excess (-2-3) mmol/L VBG Lactate (0.6-1.4) mmol/L Oxygen Liter Flow FiO2 FiO2 (liters per min) L Sodium (136-145) mmol/L 135 L Potassium (3.5-5.1) mmol/L 4.1 Chloride (98-107) mmol/L 99 Carbon Dioxide (21.0-32.0) mmol/L 31.1 Anion Gap (3-11) mmol/L 4.9 BUN (7-18) mg/dL 30 H Creatinine (0.70-1.30) mg/dL 1.7 H Estimated GFR/1.73 m2 (mL/min/1.73m2) 38.88 Glucose (74-106) mg/dL 107 H Calcium (8.5-10.1) mg/dL 8.2 L Magnesium (1.8-2.4) mg/dL 1.8 Ferritin (22-322) ng/mL Total Bilirubin (0.2-1.0) mg/dL 0.8 AST (15-37) U/L 20 ALT (16-63) U/L 18 Alkaline Phosphatase (46-116) U/L 47 Troponin I (<or=60) ng/L < 50 C-Reactive Protein (0.0-0.3) mg/dL NT-Pro-B Natriuret Pep (<300) pg/mL 658 H Total Protein (6.4-8.2) g/dL 5.9 L Albumin (3.4-5.0) g/dL 3.0 L Procalcitonin ng/mL TSH (0.36-3.74) uIU/mL Urine Color (Yellow) Urine Clarity (Clear) Urine pH (5-8) Ur Specific [place] (1.005-1.025) Urine Protein (Negative) mg/dL Urine Ketones (Negative) mg/dL Urine Blood (Negative) Urine Nitrite (Negative) Urine Bilirubin (Negative) Urine Urobilinogen (Up TO 0.2) EU/dL Ur Leukocyte Esterase (Negative) Urine RBC (0-2) HPF Urine WBC (0-5) HPF Ur Epithelial Cells (Negative) HPF Urine Crystals (Negative) HPF Urine Bacteria (Negative) HPF Urine Casts (Negative) LPF Urine Mucus (Negative) Ur Culture Indicated? Urine Glucose (Negative) mg/dL Vancomycin Trough Adenovirus DNA COVID-19 Source Nasal/Nares SARS-CoV-2 (PCR) (Negative) Negative Human Metapneumovir RNA Influenza Type A (PCR) (Negative) Negative Influenza Type B (PCR) (Negative) Negative M. pneumoniae Source M. pneumoniae (PCR) Parainfluenza 1 (PCR) Parainfluenza 2 (PCR) Parainfluenza 3 (PCR) Parainfluenza 4 (PCR) RSV (PCR) (Negative) Negative Resp Viral Spec Desc Rhinovirus (PCR) Add-On Test Request Range/Units 10/24/21 10/24/21 10/24/21 17:12 17:12 17:20 WBC (4.4-10.8) 10^3/uL RBC (4.36-5.78) 10^6/uL Hgb (13.5-17.5) g/dL Hct (40.0-50.0) % MCV (80-95) fL MCH (27.0-33.0) pg MCHC (32.0-36.0) % RDW (11.8-14.1) % Plt Count (130-400) 10^3/uL MPV (8.0-11.0) fL Immature Gran % Neutrophils % Lymphocytes % Monocytes % Eosinophils % Basophils % Nucleated RBC % % Absolute Neutrophils (1.2-6.7) 10^3/uL Absolute Lymphocytes (1.2-3.4) 10^3/uL Absolute Monocytes (0.1-0.8) 10^3/uL Absolute Eosinophils (0.0-0.7) 10^3/uL Absolute Basophils (0.0-0.2) 10^3/uL ESR (0-20) mm/hr Sample Site ABG Sample Site ABG pH (7.35-7.45) ABG pCO2 (35-45) mmHg ABG pO2 (80-105) mmHg ABG HCO3 (22-26) mmol/L ABG Total CO2 (23-27) mmol/L ABG O2 Saturation (95-98) % ABG Base Excess (-2-3) mmol/L VBG Lactate (0.6-1.4) mmol/L 2.2 H* Oxygen Liter Flow FiO2 FiO2 (liters per min) L Sodium (136-145) mmol/L Potassium (3.5-5.1) mmol/L Chloride (98-107) mmol/L Carbon Dioxide (21.0-32.0) mmol/L Anion Gap (3-11) mmol/L BUN (7-18) mg/dL Creatinine (0.70-1.30) mg/dL Estimated GFR/1.73 m2 (mL/min/1.73m2) Glucose (74-106) mg/dL Calcium (8.5-10.1) mg/dL Magnesium (1.8-2.4) mg/dL Ferritin (22-322) ng/mL Total Bilirubin (0.2-1.0) mg/dL AST (15-37) U/L ALT (16-63) U/L Alkaline Phosphatase (46-116) U/L Troponin I (<or=60) ng/L C-Reactive Protein (0.0-0.3) mg/dL NT-Pro-B Natriuret Pep (<300) pg/mL Total Protein (6.4-8.2) g/dL Albumin (3.4-5.0) g/dL Procalcitonin ng/mL 0.2 TSH (0.36-3.74) uIU/mL Urine Color (Yellow) Yellow Urine Clarity (Clear) Clear Urine pH (5-8) 6.0 Ur Specific [place] (1.005-1.025) 1.015 Urine Protein (Negative) mg/dL Negative Urine Ketones (Negative) mg/dL Negative Urine Blood (Negative) Moderate H Urine Nitrite (Negative) Negative Urine Bilirubin (Negative) Negative Urine Urobilinogen (Up TO 0.2) EU/dL 0.2 Ur Leukocyte Esterase (Negative) Negative Urine RBC (0-2) HPF >50 H Urine WBC (0-5) HPF 0-2 Ur Epithelial Cells (Negative) HPF Few Urine Crystals (Negative) HPF Negative Urine Bacteria (Negative) HPF Negative Urine Casts (Negative) LPF Negative Urine Mucus (Negative) Trace Ur Culture Indicated? No Urine Glucose (Negative) mg/dL Negative Vancomycin Trough Adenovirus DNA COVID-19 Source SARS-CoV-2 (PCR) (Negative) Human Metapneumovir RNA Influenza Type A (PCR) (Negative) Influenza Type B (PCR) (Negative) M. pneumoniae Source M. pneumoniae (PCR) Parainfluenza 1 (PCR) Parainfluenza 2 (PCR) Parainfluenza 3 (PCR) Parainfluenza 4 (PCR) RSV (PCR) (Negative) Resp Viral Spec Desc Rhinovirus (PCR) Add-On Test Request Range/Units 10/25/21 10/25/21 10/26/21 06:45 06:45 06:26 WBC (4.4-10.8) 10^3/uL 8.35 RBC (4.36-5.78) 10^6/uL 3.56 L Hgb (13.5-17.5) g/dL 11.9 L Hct (40.0-50.0) % 36.0 L MCV (80-95) fL 101.1 H MCH (27.0-33.0) pg 33.4 H MCHC (32.0-36.0) % 33.1 RDW (11.8-14.1) % 12.4 Plt Count (130-400) 10^3/uL 104 L MPV (8.0-11.0) fL 10.3 Immature Gran % 2.3 Neutrophils % 80.6 Lymphocytes % 8.5 Monocytes % 4.8 Eosinophils % 3.4 Basophils % 0.4 Nucleated RBC % % 0 Absolute Neutrophils (1.2-6.7) 10^3/uL 6.74 H Absolute Lymphocytes (1.2-3.4) 10^3/uL 0.71 L Absolute Monocytes (0.1-0.8) 10^3/uL 0.40 Absolute Eosinophils (0.0-0.7) 10^3/uL 0.28 Absolute Basophils (0.0-0.2) 10^3/uL 0.03 ESR (0-20) mm/hr Sample Site ABG Sample Site ABG pH (7.35-7.45) ABG pCO2 (35-45) mmHg ABG pO2 (80-105) mmHg ABG HCO3 (22-26) mmol/L ABG Total CO2 (23-27) mmol/L ABG O2 Saturation (95-98) % ABG Base Excess (-2-3) mmol/L VBG Lactate (0.6-1.4) mmol/L Oxygen Liter Flow FiO2 FiO2 (liters per min) L Sodium (136-145) mmol/L 137 138 Potassium (3.5-5.1) mmol/L 3.1 L D 3.1 L Chloride (98-107) mmol/L 101 102 Carbon Dioxide (21.0-32.0) mmol/L 29.7 26.3 Anion Gap (3-11) mmol/L 6.3 9.7 BUN (7-18) mg/dL 28 H 28 H Creatinine (0.70-1.30) mg/dL 1.6 H 1.6 H Estimated GFR/1.73 m2 (mL/min/1.73m2) 41.69 41.69 Glucose (74-106) mg/dL 84 134 H Calcium (8.5-10.1) mg/dL 8.1 L 8.0 L Magnesium (1.8-2.4) mg/dL Ferritin (22-322) ng/mL Total Bilirubin (0.2-1.0) mg/dL AST (15-37) U/L ALT (16-63) U/L Alkaline Phosphatase (46-116) U/L Troponin I (<or=60) ng/L C-Reactive Protein (0.0-0.3) mg/dL NT-Pro-B Natriuret Pep (<300) pg/mL Total Protein (6.4-8.2) g/dL Albumin (3.4-5.0) g/dL Procalcitonin ng/mL TSH (0.36-3.74) uIU/mL Urine Color (Yellow) Urine Clarity (Clear) Urine pH (5-8) Ur Specific [place] (1.005-1.025) Urine Protein (Negative) mg/dL Urine Ketones (Negative) mg/dL Urine Blood (Negative) Urine Nitrite (Negative) Urine Bilirubin (Negative) Urine Urobilinogen (Up TO 0.2) EU/dL Ur Leukocyte Esterase (Negative) Urine RBC (0-2) HPF Urine WBC (0-5) HPF Ur Epithelial Cells (Negative) HPF Urine Crystals (Negative) HPF Urine Bacteria (Negative) HPF Urine Casts (Negative) LPF Urine Mucus (Negative) Ur Culture Indicated? Urine Glucose (Negative) mg/dL Vancomycin Trough Adenovirus DNA COVID-19 Source SARS-CoV-2 (PCR) (Negative) Human Metapneumovir RNA Influenza Type A (PCR) (Negative) Influenza Type B (PCR) (Negative) M. pneumoniae Source M. pneumoniae (PCR) Parainfluenza 1 (PCR) Parainfluenza 2 (PCR) Parainfluenza 3 (PCR) Parainfluenza 4 (PCR) RSV (PCR) (Negative) Resp Viral Spec Desc Rhinovirus (PCR) Add-On Test Request Range/Units 10/26/21 10/26/21 10/26/21 06:26 06:26 06:26 WBC (4.4-10.8) 10^3/uL 9.40 RBC (4.36-5.78) 10^6/uL 3.46 L Hgb (13.5-17.5) g/dL 11.5 L Hct (40.0-50.0) % 34.7 L MCV (80-95) fL 100.3 H MCH (27.0-33.0) pg 33.2 H MCHC (32.0-36.0) % 33.1 RDW (11.8-14.1) % 12.5 Plt Count (130-400) 10^3/uL 116 L MPV (8.0-11.0) fL 10.5 Immature Gran % 1.9 Neutrophils % 90.0 Lymphocytes % 4.4 Monocytes % 3.5 Eosinophils % 0.1 Basophils % 0.1 Nucleated RBC % % 0 Absolute Neutrophils (1.2-6.7) 10^3/uL 8.46 H Absolute Lymphocytes (1.2-3.4) 10^3/uL 0.41 L Absolute Monocytes (0.1-0.8) 10^3/uL 0.33 Absolute Eosinophils (0.0-0.7) 10^3/uL 0.01 Absolute Basophils (0.0-0.2) 10^3/uL 0.01 ESR (0-20) mm/hr Sample Site ABG Sample Site ABG pH (7.35-7.45) ABG pCO2 (35-45) mmHg ABG pO2 (80-105) mmHg ABG HCO3 (22-26) mmol/L ABG Total CO2 (23-27) mmol/L ABG O2 Saturation (95-98) % ABG Base Excess (-2-3) mmol/L VBG Lactate (0.6-1.4) mmol/L Oxygen Liter Flow FiO2 FiO2 (liters per min) L Sodium (136-145) mmol/L Potassium (3.5-5.1) mmol/L Chloride (98-107) mmol/L Carbon Dioxide (21.0-32.0) mmol/L Anion Gap (3-11) mmol/L BUN (7-18) mg/dL Creatinine (0.70-1.30) mg/dL Estimated GFR/1.73 m2 (mL/min/1.73m2) Glucose (74-106) mg/dL Calcium (8.5-10.1) mg/dL Magnesium (1.8-2.4) mg/dL 2.0 Ferritin (22-322) ng/mL Total Bilirubin (0.2-1.0) mg/dL AST (15-37) U/L ALT (16-63) U/L Alkaline Phosphatase (46-116) U/L Troponin I (<or=60) ng/L C-Reactive Protein (0.0-0.3) mg/dL NT-Pro-B Natriuret Pep (<300) pg/mL Total Protein (6.4-8.2) g/dL Albumin (3.4-5.0) g/dL Procalcitonin ng/mL TSH (0.36-3.74) uIU/mL Urine Color (Yellow) Urine Clarity (Clear) Urine pH (5-8) Ur Specific [place] (1.005-1.025) Urine Protein (Negative) mg/dL Urine Ketones (Negative) mg/dL Urine Blood (Negative) Urine Nitrite (Negative) Urine Bilirubin (Negative) Urine Urobilinogen (Up TO 0.2) EU/dL Ur Leukocyte Esterase (Negative) Urine RBC (0-2) HPF Urine WBC (0-5) HPF Ur Epithelial Cells (Negative) HPF Urine Crystals (Negative) HPF Urine Bacteria (Negative) HPF Urine Casts (Negative) LPF Urine Mucus (Negative) Ur Culture Indicated? Urine Glucose (Negative) mg/dL Vancomycin Trough Adenovirus DNA COVID-19 Source SARS-CoV-2 (PCR) (Negative) Human Metapneumovir RNA Influenza Type A (PCR) (Negative) Influenza Type B (PCR) (Negative) M. pneumoniae Source M. pneumoniae (PCR) Parainfluenza 1 (PCR) Parainfluenza 2 (PCR) Parainfluenza 3 (PCR) Parainfluenza 4 (PCR) RSV (PCR) (Negative) Resp Viral Spec Desc Rhinovirus (PCR) Add-On Test Request DONE Range/Units 10/27/21 10/27/21 10/28/21 06:34 06:34 05:15 WBC (4.4-10.8) 10^3/uL 10.65 RBC (4.36-5.78) 10^6/uL 3.40 L Hgb (13.5-17.5) g/dL 11.4 L Hct (40.0-50.0) % 34.4 L MCV (80-95) fL 101.2 H MCH (27.0-33.0) pg 33.5 H MCHC (32.0-36.0) % 33.1 RDW (11.8-14.1) % 12.6 Plt Count (130-400) 10^3/uL 117 L MPV (8.0-11.0) fL 10.1 Immature Gran % 1.5 Neutrophils % 87.8 Lymphocytes % 5.4 Monocytes % 4.8 Eosinophils % 0.3 Basophils % 0.2 Nucleated RBC % % 0 Absolute Neutrophils (1.2-6.7) 10^3/uL 9.36 H Absolute Lymphocytes (1.2-3.4) 10^3/uL 0.57 L Absolute Monocytes (0.1-0.8) 10^3/uL 0.51 Absolute Eosinophils (0.0-0.7) 10^3/uL 0.03 Absolute Basophils (0.0-0.2) 10^3/uL 0.02 ESR (0-20) mm/hr Sample Site ABG Sample Site ABG pH (7.35-7.45) ABG pCO2 (35-45) mmHg ABG pO2 (80-105) mmHg ABG HCO3 (22-26) mmol/L ABG Total CO2 (23-27) mmol/L ABG O2 Saturation (95-98) % ABG Base Excess (-2-3) mmol/L VBG Lactate (0.6-1.4) mmol/L Oxygen Liter Flow FiO2 FiO2 (liters per min) L Sodium (136-145) mmol/L 138 139 Potassium (3.5-5.1) mmol/L 3.7 4.0 Chloride (98-107) mmol/L 104 105 Carbon Dioxide (21.0-32.0) mmol/L 25.5 27.4 Anion Gap (3-11) mmol/L 8.5 6.6 BUN (7-18) mg/dL 33 H 29 H Creatinine (0.70-1.30) mg/dL 1.5 H 1.5 H Estimated GFR/1.73 m2 (mL/min/1.73m2) 44.92 44.92 Glucose (74-106) mg/dL 121 H 79 Calcium (8.5-10.1) mg/dL 8.1 L 8.7 Magnesium (1.8-2.4) mg/dL 1.9 2.0 Ferritin (22-322) ng/mL Total Bilirubin (0.2-1.0) mg/dL AST (15-37) U/L ALT (16-63) U/L Alkaline Phosphatase (46-116) U/L Troponin I (<or=60) ng/L C-Reactive Protein (0.0-0.3) mg/dL NT-Pro-B Natriuret Pep (<300) pg/mL Total Protein (6.4-8.2) g/dL Albumin (3.4-5.0) g/dL Procalcitonin ng/mL TSH (0.36-3.74) uIU/mL Urine Color (Yellow) Urine Clarity (Clear) Urine pH (5-8) Ur Specific [place] (1.005-1.025) Urine Protein (Negative) mg/dL Urine Ketones (Negative) mg/dL Urine Blood (Negative) Urine Nitrite (Negative) Urine Bilirubin (Negative) Urine Urobilinogen (Up TO 0.2) EU/dL Ur Leukocyte Esterase (Negative) Urine RBC (0-2) HPF Urine WBC (0-5) HPF Ur Epithelial Cells (Negative) HPF Urine Crystals (Negative) HPF Urine Bacteria (Negative) HPF Urine Casts (Negative) LPF Urine Mucus (Negative) Ur Culture Indicated? Urine Glucose (Negative) mg/dL Vancomycin Trough Adenovirus DNA COVID-19 Source SARS-CoV-2 (PCR) (Negative) Human Metapneumovir RNA Influenza Type A (PCR) (Negative) Influenza Type B (PCR) (Negative) M. pneumoniae Source M. pneumoniae (PCR) Parainfluenza 1 (PCR) Parainfluenza 2 (PCR) Parainfluenza 3 (PCR) Parainfluenza 4 (PCR) RSV (PCR) (Negative) Resp Viral Spec Desc Rhinovirus (PCR) Add-On Test Request Range/Units 10/28/21 10/29/21 10/29/21 05:15 07:00 07:00 WBC (4.4-10.8) 10^3/uL 8.86 7.72 RBC (4.36-5.78) 10^6/uL 3.71 L 3.52 L Hgb (13.5-17.5) g/dL 12.2 L 11.7 L Hct (40.0-50.0) % 38.6 L 35.0 L MCV (80-95) fL 104.0 H 99.4 H MCH (27.0-33.0) pg 32.9 33.2 H MCHC (32.0-36.0) % 31.6 L 33.4 RDW (11.8-14.1) % 12.9 13.1 Plt Count (130-400) 10^3/uL 121 L 118 L MPV (8.0-11.0) fL 10.2 9.6 Immature Gran % 2.0 1.9 Neutrophils % 75.9 81.2 Lymphocytes % 12.0 8.3 Monocytes % 6.2 4.5 Eosinophils % 3.4 4.0 Basophils % 0.5 0.1 Nucleated RBC % % 0 0 Absolute Neutrophils (1.2-6.7) 10^3/uL 6.73 H 6.26 Absolute Lymphocytes (1.2-3.4) 10^3/uL 1.06 L 0.64 L Absolute Monocytes (0.1-0.8) 10^3/uL 0.55 0.35 Absolute Eosinophils (0.0-0.7) 10^3/uL 0.30 0.31 Absolute Basophils (0.0-0.2) 10^3/uL 0.04 0.01 ESR (0-20) mm/hr Sample Site ABG Sample Site ABG pH (7.35-7.45) ABG pCO2 (35-45) mmHg ABG pO2 (80-105) mmHg ABG HCO3 (22-26) mmol/L ABG Total CO2 (23-27) mmol/L ABG O2 Saturation (95-98) % ABG Base Excess (-2-3) mmol/L VBG Lactate (0.6-1.4) mmol/L Oxygen Liter Flow FiO2 FiO2 (liters per min) L Sodium (136-145) mmol/L 139 Potassium (3.5-5.1) mmol/L 3.7 Chloride (98-107) mmol/L 105 Carbon Dioxide (21.0-32.0) mmol/L 24.2 Anion Gap (3-11) mmol/L 9.8 BUN (7-18) mg/dL 26 H Creatinine (0.70-1.30) mg/dL 1.3 Estimated GFR/1.73 m2 (mL/min/1.73m2) 52.98 Glucose (74-106) mg/dL 88 Calcium (8.5-10.1) mg/dL 8.7 Magnesium (1.8-2.4) mg/dL Ferritin (22-322) ng/mL Total Bilirubin (0.2-1.0) mg/dL AST (15-37) U/L ALT (16-63) U/L Alkaline Phosphatase (46-116) U/L Troponin I (<or=60) ng/L C-Reactive Protein (0.0-0.3) mg/dL 11.41 H NT-Pro-B Natriuret Pep (<300) pg/mL Total Protein (6.4-8.2) g/dL Albumin (3.4-5.0) g/dL Procalcitonin ng/mL TSH (0.36-3.74) uIU/mL Urine Color (Yellow) Urine Clarity (Clear) Urine pH (5-8) Ur Specific [place] (1.005-1.025) Urine Protein (Negative) mg/dL Urine Ketones (Negative) mg/dL Urine Blood (Negative) Urine Nitrite (Negative) Urine Bilirubin (Negative) Urine Urobilinogen (Up TO 0.2) EU/dL Ur Leukocyte Esterase (Negative) Urine RBC (0-2) HPF Urine WBC (0-5) HPF Ur Epithelial Cells (Negative) HPF Urine Crystals (Negative) HPF Urine Bacteria (Negative) HPF Urine Casts (Negative) LPF Urine Mucus (Negative) Ur Culture Indicated? Urine Glucose (Negative) mg/dL Vancomycin Trough Adenovirus DNA COVID-19 Source SARS-CoV-2 (PCR) (Negative) Human Metapneumovir RNA Influenza Type A (PCR) (Negative) Influenza Type B (PCR) (Negative) M. pneumoniae Source M. pneumoniae (PCR) Parainfluenza 1 (PCR) Parainfluenza 2 (PCR) Parainfluenza 3 (PCR) Parainfluenza 4 (PCR) RSV (PCR) (Negative) Resp Viral Spec Desc Rhinovirus (PCR) Add-On Test Request Range/Units 10/29/21 10/30/21 10/30/21 07:00 06:18 09:26 WBC (4.4-10.8) 10^3/uL RBC (4.36-5.78) 10^6/uL Hgb (13.5-17.5) g/dL Hct (40.0-50.0) % MCV (80-95) fL MCH (27.0-33.0) pg MCHC (32.0-36.0) % RDW (11.8-14.1) % Plt Count (130-400) 10^3/uL MPV (8.0-11.0) fL Immature Gran % Neutrophils % Lymphocytes % Monocytes % Eosinophils % Basophils % Nucleated RBC % % Absolute Neutrophils (1.2-6.7) 10^3/uL Absolute Lymphocytes (1.2-3.4) 10^3/uL Absolute Monocytes (0.1-0.8) 10^3/uL Absolute Eosinophils (0.0-0.7) 10^3/uL Absolute Basophils (0.0-0.2) 10^3/uL ESR (0-20) mm/hr Sample Site ABG Sample Site ABG pH (7.35-7.45) ABG pCO2 (35-45) mmHg ABG pO2 (80-105) mmHg ABG HCO3 (22-26) mmol/L ABG Total CO2 (23-27) mmol/L ABG O2 Saturation (95-98) % ABG Base Excess (-2-3) mmol/L VBG Lactate (0.6-1.4) mmol/L 0.7 Oxygen Liter Flow FiO2 FiO2 (liters per min) L Sodium (136-145) mmol/L 139 Potassium (3.5-5.1) mmol/L 3.6 Chloride (98-107) mmol/L 104 Carbon Dioxide (21.0-32.0) mmol/L 25.4 Anion Gap (3-11) mmol/L 9.6 BUN (7-18) mg/dL 25 H Creatinine (0.70-1.30) mg/dL 1.4 H Estimated GFR/1.73 m2 (mL/min/1.73m2) 48.64 Glucose (74-106) mg/dL 113 H Calcium (8.5-10.1) mg/dL 8.9 Magnesium (1.8-2.4) mg/dL 2.0 Ferritin (22-322) ng/mL Total Bilirubin (0.2-1.0) mg/dL AST (15-37) U/L ALT (16-63) U/L Alkaline Phosphatase (46-116) U/L Troponin I (<or=60) ng/L C-Reactive Protein (0.0-0.3) mg/dL NT-Pro-B Natriuret Pep (<300) pg/mL Total Protein (6.4-8.2) g/dL Albumin (3.4-5.0) g/dL Procalcitonin ng/mL 0.1 TSH (0.36-3.74) uIU/mL Urine Color (Yellow) Urine Clarity (Clear) Urine pH (5-8) Ur Specific [place] (1.005-1.025) Urine Protein (Negative) mg/dL Urine Ketones (Negative) mg/dL Urine Blood (Negative) Urine Nitrite (Negative) Urine Bilirubin (Negative) Urine Urobilinogen (Up TO 0.2) EU/dL Ur Leukocyte Esterase (Negative) Urine RBC (0-2) HPF Urine WBC (0-5) HPF Ur Epithelial Cells (Negative) HPF Urine Crystals (Negative) HPF Urine Bacteria (Negative) HPF Urine Casts (Negative) LPF Urine Mucus (Negative) Ur Culture Indicated? Urine Glucose (Negative) mg/dL Vancomycin Trough Adenovirus DNA COVID-19 Source Nasal/Nares SARS-CoV-2 (PCR) (Negative) Negative Human Metapneumovir RNA Influenza Type A (PCR) (Negative) Influenza Type B (PCR) (Negative) M. pneumoniae Source M. pneumoniae (PCR) Parainfluenza 1 (PCR) Parainfluenza 2 (PCR) Parainfluenza 3 (PCR) Parainfluenza 4 (PCR) RSV (PCR) (Negative) Resp Viral Spec Desc Rhinovirus (PCR) Add-On Test Request Range/Units 10/30/21 10/30/21 10/31/21 12:50 12:50 06:25 WBC (4.4-10.8) 10^3/uL RBC (4.36-5.78) 10^6/uL Hgb (13.5-17.5) g/dL Hct (40.0-50.0) % MCV (80-95) fL MCH (27.0-33.0) pg MCHC (32.0-36.0) % RDW (11.8-14.1) % Plt Count (130-400) 10^3/uL MPV (8.0-11.0) fL Immature Gran % Neutrophils % Lymphocytes % Monocytes % Eosinophils % Basophils % Nucleated RBC % % Absolute Neutrophils (1.2-6.7) 10^3/uL Absolute Lymphocytes (1.2-3.4) 10^3/uL Absolute Monocytes (0.1-0.8) 10^3/uL Absolute Eosinophils (0.0-0.7) 10^3/uL Absolute Basophils (0.0-0.2) 10^3/uL ESR (0-20) mm/hr Sample Site Right Radial ABG Sample Site Cancelled ABG pH (7.35-7.45) 7.50 H ABG pCO2 (35-45) mmHg 30 L ABG pO2 (80-105) mmHg 79 L ABG HCO3 (22-26) mmol/L 22 ABG Total CO2 (23-27) mmol/L 23 ABG O2 Saturation (95-98) % 97 ABG Base Excess (-2-3) mmol/L -1 VBG Lactate (0.6-1.4) mmol/L 1.8 H Oxygen Liter Flow Cancelled FiO2 Cancelled FiO2 (liters per min) L 0.5 Sodium (136-145) mmol/L 140 Potassium (3.5-5.1) mmol/L 3.7 Chloride (98-107) mmol/L 103 Carbon Dioxide (21.0-32.0) mmol/L 28.1 Anion Gap (3-11) mmol/L 8.9 BUN (7-18) mg/dL 32 H Creatinine (0.70-1.30) mg/dL 1.5 H Estimated GFR/1.73 m2 (mL/min/1.73m2) 44.92 Glucose (74-106) mg/dL 110 H Calcium (8.5-10.1) mg/dL 8.7 Magnesium (1.8-2.4) mg/dL Ferritin (22-322) ng/mL Total Bilirubin (0.2-1.0) mg/dL AST (15-37) U/L ALT (16-63) U/L Alkaline Phosphatase (46-116) U/L Troponin I (<or=60) ng/L C-Reactive Protein (0.0-0.3) mg/dL NT-Pro-B Natriuret Pep (<300) pg/mL Total Protein (6.4-8.2) g/dL Albumin (3.4-5.0) g/dL Procalcitonin ng/mL TSH (0.36-3.74) uIU/mL Urine Color (Yellow) Urine Clarity (Clear) Urine pH (5-8) Ur Specific [place] (1.005-1.025) Urine Protein (Negative) mg/dL Urine Ketones (Negative) mg/dL Urine Blood (Negative) Urine Nitrite (Negative) Urine Bilirubin (Negative) Urine Urobilinogen (Up TO 0.2) EU/dL Ur Leukocyte Esterase (Negative) Urine RBC (0-2) HPF Urine WBC (0-5) HPF Ur Epithelial Cells (Negative) HPF Urine Crystals (Negative) HPF Urine Bacteria (Negative) HPF Urine Casts (Negative) LPF Urine Mucus (Negative) Ur Culture Indicated? Urine Glucose (Negative) mg/dL Vancomycin Trough Adenovirus DNA COVID-19 Source SARS-CoV-2 (PCR) (Negative) Human Metapneumovir RNA Influenza Type A (PCR) (Negative) Influenza Type B (PCR) (Negative) M. pneumoniae Source M. pneumoniae (PCR) Parainfluenza 1 (PCR) Parainfluenza 2 (PCR) Parainfluenza 3 (PCR) Parainfluenza 4 (PCR) RSV (PCR) (Negative) Resp Viral Spec Desc Rhinovirus (PCR) Add-On Test Request Range/Units 10/31/21 11/02/21 11/02/21 06:25 06:45 06:45 WBC (4.4-10.8) 10^3/uL 9.97 RBC (4.36-5.78) 10^6/uL 3.49 L Hgb (13.5-17.5) g/dL 11.7 L Hct (40.0-50.0) % 35.0 L MCV (80-95) fL 100.3 H MCH (27.0-33.0) pg 33.5 H MCHC (32.0-36.0) % 33.4 RDW (11.8-14.1) % 13.0 Plt Count (130-400) 10^3/uL 146 MPV (8.0-11.0) fL 10.0 Immature Gran % 1.9 Neutrophils % 84.7 Lymphocytes % 7.5 Monocytes % 3.5 Eosinophils % 2.3 Basophils % 0.1 Nucleated RBC % % 0 Absolute Neutrophils (1.2-6.7) 10^3/uL 8.44 H Absolute Lymphocytes (1.2-3.4) 10^3/uL 0.75 L Absolute Monocytes (0.1-0.8) 10^3/uL 0.35 Absolute Eosinophils (0.0-0.7) 10^3/uL 0.23 Absolute Basophils (0.0-0.2) 10^3/uL 0.01 ESR (0-20) mm/hr 41 H Sample Site ABG Sample Site ABG pH (7.35-7.45) ABG pCO2 (35-45) mmHg ABG pO2 (80-105) mmHg ABG HCO3 (22-26) mmol/L ABG Total CO2 (23-27) mmol/L ABG O2 Saturation (95-98) % ABG Base Excess (-2-3) mmol/L VBG Lactate (0.6-1.4) mmol/L Oxygen Liter Flow FiO2 FiO2 (liters per min) L Sodium (136-145) mmol/L 140 Potassium (3.5-5.1) mmol/L 3.9 Chloride (98-107) mmol/L 102 Carbon Dioxide (21.0-32.0) mmol/L 29.3 Anion Gap (3-11) mmol/L 8.7 BUN (7-18) mg/dL 31 H Creatinine (0.70-1.30) mg/dL 1.4 H Estimated GFR/1.73 m2 (mL/min/1.73m2) 48.64 Glucose (74-106) mg/dL 101 Calcium (8.5-10.1) mg/dL 9.3 Magnesium (1.8-2.4) mg/dL Ferritin (22-322) ng/mL Total Bilirubin (0.2-1.0) mg/dL AST (15-37) U/L ALT (16-63) U/L Alkaline Phosphatase (46-116) U/L Troponin I (<or=60) ng/L C-Reactive Protein (0.0-0.3) mg/dL > 25.00 H NT-Pro-B Natriuret Pep (<300) pg/mL Total Protein (6.4-8.2) g/dL Albumin (3.4-5.0) g/dL Procalcitonin ng/mL TSH (0.36-3.74) uIU/mL Urine Color (Yellow) Urine Clarity (Clear) Urine pH (5-8) Ur Specific [place] (1.005-1.025) Urine Protein (Negative) mg/dL Urine Ketones (Negative) mg/dL Urine Blood (Negative) Urine Nitrite (Negative) Urine Bilirubin (Negative) Urine Urobilinogen (Up TO 0.2) EU/dL Ur Leukocyte Esterase (Negative) Urine RBC (0-2) HPF Urine WBC (0-5) HPF Ur Epithelial Cells (Negative) HPF Urine Crystals (Negative) HPF Urine Bacteria (Negative) HPF Urine Casts (Negative) LPF Urine Mucus (Negative) Ur Culture Indicated? Urine Glucose (Negative) mg/dL Vancomycin Trough Adenovirus DNA COVID-19 Source SARS-CoV-2 (PCR) (Negative) Human Metapneumovir RNA Influenza Type A (PCR) (Negative) Influenza Type B (PCR) (Negative) M. pneumoniae Source M. pneumoniae (PCR) Parainfluenza 1 (PCR) Parainfluenza 2 (PCR) Parainfluenza 3 (PCR) Parainfluenza 4 (PCR) RSV (PCR) (Negative) Resp Viral Spec Desc Rhinovirus (PCR) Add-On Test Request Range/Units 11/02/21 11/02/21 11/02/21 06:45 06:45 06:45 WBC (4.4-10.8) 10^3/uL 7.69 RBC (4.36-5.78) 10^6/uL 3.59 L Hgb (13.5-17.5) g/dL 11.8 L Hct (40.0-50.0) % 36.7 L MCV (80-95) fL 102.2 H MCH (27.0-33.0) pg 32.9 MCHC (32.0-36.0) % 32.2 RDW (11.8-14.1) % 12.9 Plt Count (130-400) 10^3/uL 151 MPV (8.0-11.0) fL 9.8 Immature Gran % 1.6 Neutrophils % 78.6 Lymphocytes % 12.2 Monocytes % 3.4 Eosinophils % 3.9 Basophils % 0.3 Nucleated RBC % % 0 Absolute Neutrophils (1.2-6.7) 10^3/uL 6.05 Absolute Lymphocytes (1.2-3.4) 10^3/uL 0.94 L Absolute Monocytes (0.1-0.8) 10^3/uL 0.26 Absolute Eosinophils (0.0-0.7) 10^3/uL 0.30 Absolute Basophils (0.0-0.2) 10^3/uL 0.02 ESR (0-20) mm/hr Sample Site ABG Sample Site ABG pH (7.35-7.45) ABG pCO2 (35-45) mmHg ABG pO2 (80-105) mmHg ABG HCO3 (22-26) mmol/L ABG Total CO2 (23-27) mmol/L ABG O2 Saturation (95-98) % ABG Base Excess (-2-3) mmol/L VBG Lactate (0.6-1.4) mmol/L Oxygen Liter Flow FiO2 FiO2 (liters per min) L Sodium (136-145) mmol/L Potassium (3.5-5.1) mmol/L Chloride (98-107) mmol/L Carbon Dioxide (21.0-32.0) mmol/L Anion Gap (3-11) mmol/L BUN (7-18) mg/dL Creatinine (0.70-1.30) mg/dL Estimated GFR/1.73 m2 (mL/min/1.73m2) Glucose (74-106) mg/dL Calcium (8.5-10.1) mg/dL Magnesium (1.8-2.4) mg/dL Ferritin (22-322) ng/mL 538 H Total Bilirubin (0.2-1.0) mg/dL AST (15-37) U/L ALT (16-63) U/L Alkaline Phosphatase (46-116) U/L Troponin I (<or=60) ng/L C-Reactive Protein (0.0-0.3) mg/dL NT-Pro-B Natriuret Pep (<300) pg/mL Total Protein (6.4-8.2) g/dL Albumin (3.4-5.0) g/dL Procalcitonin ng/mL TSH (0.36-3.74) uIU/mL Urine Color (Yellow) Urine Clarity (Clear) Urine pH (5-8) Ur Specific [place] (1.005-1.025) Urine Protein (Negative) mg/dL Urine Ketones (Negative) mg/dL Urine Blood (Negative) Urine Nitrite (Negative) Urine Bilirubin (Negative) Urine Urobilinogen (Up TO 0.2) EU/dL Ur Leukocyte Esterase (Negative) Urine RBC (0-2) HPF Urine WBC (0-5) HPF Ur Epithelial Cells (Negative) HPF Urine Crystals (Negative) HPF Urine Bacteria (Negative) HPF Urine Casts (Negative) LPF Urine Mucus (Negative) Ur Culture Indicated? Urine Glucose (Negative) mg/dL Vancomycin Trough Adenovirus DNA COVID-19 Source SARS-CoV-2 (PCR) (Negative) Human Metapneumovir RNA Influenza Type A (PCR) (Negative) Influenza Type B (PCR) (Negative) M. pneumoniae Source M. pneumoniae (PCR) Parainfluenza 1 (PCR) Parainfluenza 2 (PCR) Parainfluenza 3 (PCR) Parainfluenza 4 (PCR) RSV (PCR) (Negative) Resp Viral Spec Desc Rhinovirus (PCR) Add-On Test Request done Range/Units 11/02/21 11/02/21 11/02/21 06:45 11:00 15:30 WBC (4.4-10.8) 10^3/uL RBC (4.36-5.78) 10^6/uL Hgb (13.5-17.5) g/dL Hct (40.0-50.0) % MCV (80-95) fL MCH (27.0-33.0) pg MCHC (32.0-36.0) % RDW (11.8-14.1) % Plt Count (130-400) 10^3/uL MPV (8.0-11.0) fL Immature Gran % Neutrophils % Lymphocytes % Monocytes % Eosinophils % Basophils % Nucleated RBC % % Absolute Neutrophils (1.2-6.7) 10^3/uL Absolute Lymphocytes (1.2-3.4) 10^3/uL Absolute Monocytes (0.1-0.8) 10^3/uL Absolute Eosinophils (0.0-0.7) 10^3/uL Absolute Basophils (0.0-0.2) 10^3/uL ESR (0-20) mm/hr Sample Site ABG Sample Site ABG pH (7.35-7.45) ABG pCO2 (35-45) mmHg ABG pO2 (80-105) mmHg ABG HCO3 (22-26) mmol/L ABG Total CO2 (23-27) mmol/L ABG O2 Saturation (95-98) % ABG Base Excess (-2-3) mmol/L VBG Lactate (0.6-1.4) mmol/L Oxygen Liter Flow FiO2 FiO2 (liters per min) L Sodium (136-145) mmol/L Potassium (3.5-5.1) mmol/L Chloride (98-107) mmol/L Carbon Dioxide (21.0-32.0) mmol/L Anion Gap (3-11) mmol/L BUN (7-18) mg/dL Creatinine (0.70-1.30) mg/dL Estimated GFR/1.73 m2 (mL/min/1.73m2) Glucose (74-106) mg/dL Calcium (8.5-10.1) mg/dL Magnesium (1.8-2.4) mg/dL Ferritin (22-322) ng/mL Total Bilirubin (0.2-1.0) mg/dL AST (15-37) U/L ALT (16-63) U/L Alkaline Phosphatase (46-116) U/L Troponin I (<or=60) ng/L C-Reactive Protein (0.0-0.3) mg/dL NT-Pro-B Natriuret Pep (<300) pg/mL 673 H Total Protein (6.4-8.2) g/dL Albumin (3.4-5.0) g/dL Procalcitonin ng/mL TSH (0.36-3.74) uIU/mL Urine Color (Yellow) Urine Clarity (Clear) Urine pH (5-8) Ur Specific [place] (1.005-1.025) Urine Protein (Negative) mg/dL Urine Ketones (Negative) mg/dL Urine Blood (Negative) Urine Nitrite (Negative) Urine Bilirubin (Negative) Urine Urobilinogen (Up TO 0.2) EU/dL Ur Leukocyte Esterase (Negative) Urine RBC (0-2) HPF Urine WBC (0-5) HPF Ur Epithelial Cells (Negative) HPF Urine Crystals (Negative) HPF Urine Bacteria (Negative) HPF Urine Casts (Negative) LPF Urine Mucus (Negative) Ur Culture Indicated? Urine Glucose (Negative) mg/dL Vancomycin Trough Adenovirus DNA COVID-19 Source Nasopharynx SARS-CoV-2 (PCR) (Negative) Negative Human Metapneumovir RNA Influenza Type A (PCR) (Negative) Influenza Type B (PCR) (Negative) M. pneumoniae Source Cancelled M. pneumoniae (PCR) Cancelled Parainfluenza 1 (PCR) Parainfluenza 2 (PCR) Parainfluenza 3 (PCR) Parainfluenza 4 (PCR) RSV (PCR) (Negative) Resp Viral Spec Desc Rhinovirus (PCR) Add-On Test Request Range/Units 11/02/21 11/03/21 11/03/21 21:09 06:30 06:30 WBC (4.4-10.8) 10^3/uL 10.34 D RBC (4.36-5.78) 10^6/uL 3.37 L Hgb (13.5-17.5) g/dL 11.0 L Hct (40.0-50.0) % 33.6 L MCV (80-95) fL 99.7 H MCH (27.0-33.0) pg 32.6 MCHC (32.0-36.0) % 32.7 RDW (11.8-14.1) % 13.0 Plt Count (130-400) 10^3/uL 146 MPV (8.0-11.0) fL 10.2 Immature Gran % 1.1 Neutrophils % 94.4 Lymphocytes % 3.3 Monocytes % 1.0 Eosinophils % 0.0 Basophils % 0.2 Nucleated RBC % % 0 Absolute Neutrophils (1.2-6.7) 10^3/uL 9.76 H Absolute Lymphocytes (1.2-3.4) 10^3/uL 0.34 L Absolute Monocytes (0.1-0.8) 10^3/uL 0.10 Absolute Eosinophils (0.0-0.7) 10^3/uL 0.00 Absolute Basophils (0.0-0.2) 10^3/uL 0.02 ESR (0-20) mm/hr Sample Site ABG Sample Site ABG pH (7.35-7.45) ABG pCO2 (35-45) mmHg ABG pO2 (80-105) mmHg ABG HCO3 (22-26) mmol/L ABG Total CO2 (23-27) mmol/L ABG O2 Saturation (95-98) % ABG Base Excess (-2-3) mmol/L VBG Lactate (0.6-1.4) mmol/L Oxygen Liter Flow FiO2 FiO2 (liters per min) L Sodium (136-145) mmol/L 140 Potassium (3.5-5.1) mmol/L 3.9 Chloride (98-107) mmol/L 102 Carbon Dioxide (21.0-32.0) mmol/L 25.8 Anion Gap (3-11) mmol/L 12.2 H BUN (7-18) mg/dL 33 H Creatinine (0.70-1.30) mg/dL 1.6 H Estimated GFR/1.73 m2 (mL/min/1.73m2) 41.69 Glucose (74-106) mg/dL 197 H D Calcium (8.5-10.1) mg/dL 8.8 Magnesium (1.8-2.4) mg/dL Ferritin (22-322) ng/mL Total Bilirubin (0.2-1.0) mg/dL AST (15-37) U/L ALT (16-63) U/L Alkaline Phosphatase (46-116) U/L Troponin I (<or=60) ng/L C-Reactive Protein (0.0-0.3) mg/dL NT-Pro-B Natriuret Pep (<300) pg/mL Total Protein (6.4-8.2) g/dL Albumin (3.4-5.0) g/dL Procalcitonin ng/mL TSH (0.36-3.74) uIU/mL 0.50 Urine Color (Yellow) Urine Clarity (Clear) Urine pH (5-8) Ur Specific [place] (1.005-1.025) Urine Protein (Negative) mg/dL Urine Ketones (Negative) mg/dL Urine Blood (Negative) Urine Nitrite (Negative) Urine Bilirubin (Negative) Urine Urobilinogen (Up TO 0.2) EU/dL Ur Leukocyte Esterase (Negative) Urine RBC (0-2) HPF Urine WBC (0-5) HPF Ur Epithelial Cells (Negative) HPF Urine Crystals (Negative) HPF Urine Bacteria (Negative) HPF Urine Casts (Negative) LPF Urine Mucus (Negative) Ur Culture Indicated? Urine Glucose (Negative) mg/dL Vancomycin Trough Adenovirus DNA Cancelled COVID-19 Source SARS-CoV-2 (PCR) (Negative) Human Metapneumovir RNA Cancelled Influenza Type A (PCR) (Negative) Influenza Type B (PCR) (Negative) M. pneumoniae Source M. pneumoniae (PCR) Parainfluenza 1 (PCR) Cancelled Parainfluenza 2 (PCR) Cancelled Parainfluenza 3 (PCR) Cancelled Parainfluenza 4 (PCR) Cancelled RSV (PCR) (Negative) Resp Viral Spec Desc Cancelled Rhinovirus (PCR) Cancelled Add-On Test Request Range/Units 11/04/21 11/04/21 11/04/21 06:40 06:40 19:35 WBC (4.4-10.8) 10^3/uL 14.11 H D RBC (4.36-5.78) 10^6/uL 3.38 L Hgb (13.5-17.5) g/dL 11.1 L Hct (40.0-50.0) % 33.6 L MCV (80-95) fL 99.4 H MCH (27.0-33.0) pg 32.8 MCHC (32.0-36.0) % 33.0 RDW (11.8-14.1) % 13.0 Plt Count (130-400) 10^3/uL 179 MPV (8.0-11.0) fL 10.8 Immature Gran % 0.9 Neutrophils % 93.0 Lymphocytes % 2.7 Monocytes % 3.3 Eosinophils % 0.0 Basophils % 0.1 Nucleated RBC % % 0 Absolute Neutrophils (1.2-6.7) 10^3/uL 13.12 H Absolute Lymphocytes (1.2-3.4) 10^3/uL 0.38 L Absolute Monocytes (0.1-0.8) 10^3/uL 0.47 Absolute Eosinophils (0.0-0.7) 10^3/uL 0.00 Absolute Basophils (0.0-0.2) 10^3/uL 0.01 ESR (0-20) mm/hr Sample Site ABG Sample Site ABG pH (7.35-7.45) ABG pCO2 (35-45) mmHg ABG pO2 (80-105) mmHg ABG HCO3 (22-26) mmol/L ABG Total CO2 (23-27) mmol/L ABG O2 Saturation (95-98) % ABG Base Excess (-2-3) mmol/L VBG Lactate (0.6-1.4) mmol/L Oxygen Liter Flow FiO2 FiO2 (liters per min) L Sodium (136-145) mmol/L 142 Potassium (3.5-5.1) mmol/L 3.4 L Chloride (98-107) mmol/L 104 Carbon Dioxide (21.0-32.0) mmol/L 24.5 Anion Gap (3-11) mmol/L 13.5 H BUN (7-18) mg/dL 34 H Creatinine (0.70-1.30) mg/dL 1.7 H Estimated GFR/1.73 m2 (mL/min/1.73m2) 38.88 Glucose (74-106) mg/dL 203 H Calcium (8.5-10.1) mg/dL 9.2 Magnesium (1.8-2.4) mg/dL Ferritin (22-322) ng/mL Total Bilirubin (0.2-1.0) mg/dL AST (15-37) U/L ALT (16-63) U/L Alkaline Phosphatase (46-116) U/L Troponin I (<or=60) ng/L C-Reactive Protein (0.0-0.3) mg/dL NT-Pro-B Natriuret Pep (<300) pg/mL Total Protein (6.4-8.2) g/dL Albumin (3.4-5.0) g/dL Procalcitonin ng/mL TSH (0.36-3.74) uIU/mL Urine Color (Yellow) Yellow Urine Clarity (Clear) Sl Cloudy Urine pH (5-8) 5.5 Ur Specific [place] (1.005-1.025) >= 1.030 H Urine Protein (Negative) mg/dL 30 H Urine Ketones (Negative) mg/dL Negative Urine Blood (Negative) Large H Urine Nitrite (Negative) Negative Urine Bilirubin (Negative) Negative Urine Urobilinogen (Up TO 0.2) EU/dL 0.2 Ur Leukocyte Esterase (Negative) Negative Urine RBC (0-2) HPF >50 H Urine WBC (0-5) HPF 0-2 Ur Epithelial Cells (Negative) HPF Negative Urine Crystals (Negative) HPF Moderate Uric Acid Urine Bacteria (Negative) HPF Few Urine Casts (Negative) LPF Urine Mucus (Negative) Negative Ur Culture Indicated? No Urine Glucose (Negative) mg/dL Negative Vancomycin Trough Adenovirus DNA COVID-19 Source SARS-CoV-2 (PCR) (Negative) Human Metapneumovir RNA Influenza Type A (PCR) (Negative) Influenza Type B (PCR) (Negative) M. pneumoniae Source M. pneumoniae (PCR) Parainfluenza 1 (PCR) Parainfluenza 2 (PCR) Parainfluenza 3 (PCR) Parainfluenza 4 (PCR) RSV (PCR) (Negative) Resp Viral Spec Desc Rhinovirus (PCR) Add-On Test Request Range/Units 11/05/21 11/05/21 11/05/21 07:50 07:50 07:50 WBC (4.4-10.8) 10^3/uL RBC (4.36-5.78) 10^6/uL Hgb (13.5-17.5) g/dL Hct (40.0-50.0) % MCV (80-95) fL MCH (27.0-33.0) pg MCHC (32.0-36.0) % RDW (11.8-14.1) % Plt Count (130-400) 10^3/uL MPV (8.0-11.0) fL Immature Gran % Neutrophils % Lymphocytes % Monocytes % Eosinophils % Basophils % Nucleated RBC % % Absolute Neutrophils (1.2-6.7) 10^3/uL Absolute Lymphocytes (1.2-3.4) 10^3/uL Absolute Monocytes (0.1-0.8) 10^3/uL Absolute Eosinophils (0.0-0.7) 10^3/uL Absolute Basophils (0.0-0.2) 10^3/uL ESR (0-20) mm/hr 29 H Sample Site ABG Sample Site ABG pH (7.35-7.45) ABG pCO2 (35-45) mmHg ABG pO2 (80-105) mmHg ABG HCO3 (22-26) mmol/L ABG Total CO2 (23-27) mmol/L ABG O2 Saturation (95-98) % ABG Base Excess (-2-3) mmol/L VBG Lactate (0.6-1.4) mmol/L Oxygen Liter Flow FiO2 FiO2 (liters per min) L Sodium (136-145) mmol/L 141 Potassium (3.5-5.1) mmol/L 3.4 L Chloride (98-107) mmol/L 103 Carbon Dioxide (21.0-32.0) mmol/L 23.6 Anion Gap (3-11) mmol/L 14.4 H BUN (7-18) mg/dL 41 H Creatinine (0.70-1.30) mg/dL 2.0 H Estimated GFR/1.73 m2 (mL/min/1.73m2) 32.23 Glucose (74-106) mg/dL 180 H Calcium (8.5-10.1) mg/dL 9.5 Magnesium (1.8-2.4) mg/dL Ferritin (22-322) ng/mL Total Bilirubin (0.2-1.0) mg/dL AST (15-37) U/L ALT (16-63) U/L Alkaline Phosphatase (46-116) U/L Troponin I (<or=60) ng/L C-Reactive Protein (0.0-0.3) mg/dL 9.36 H NT-Pro-B Natriuret Pep (<300) pg/mL Total Protein (6.4-8.2) g/dL Albumin (3.4-5.0) g/dL Procalcitonin ng/mL TSH (0.36-3.74) uIU/mL Urine Color (Yellow) Urine Clarity (Clear) Urine pH (5-8) Ur Specific [place] (1.005-1.025) Urine Protein (Negative) mg/dL Urine Ketones (Negative) mg/dL Urine Blood (Negative) Urine Nitrite (Negative) Urine Bilirubin (Negative) Urine Urobilinogen (Up TO 0.2) EU/dL Ur Leukocyte Esterase (Negative) Urine RBC (0-2) HPF Urine WBC (0-5) HPF Ur Epithelial Cells (Negative) HPF Urine Crystals (Negative) HPF Urine Bacteria (Negative) HPF Urine Casts (Negative) LPF Urine Mucus (Negative) Ur Culture Indicated? Urine Glucose (Negative) mg/dL Vancomycin Trough Adenovirus DNA COVID-19 Source SARS-CoV-2 (PCR) (Negative) Human Metapneumovir RNA Influenza Type A (PCR) (Negative) Influenza Type B (PCR) (Negative) M. pneumoniae Source M. pneumoniae (PCR) Parainfluenza 1 (PCR) Parainfluenza 2 (PCR) Parainfluenza 3 (PCR) Parainfluenza 4 (PCR) RSV (PCR) (Negative) Resp Viral Spec Desc Rhinovirus (PCR) Add-On Test Request Range/Units 11/05/21 13:00 WBC (4.4-10.8) 10^3/uL RBC (4.36-5.78) 10^6/uL Hgb (13.5-17.5) g/dL Hct (40.0-50.0) % MCV (80-95) fL MCH (27.0-33.0) pg MCHC (32.0-36.0) % RDW (11.8-14.1) % Plt Count (130-400) 10^3/uL MPV (8.0-11.0) fL Immature Gran % Neutrophils % Lymphocytes % Monocytes % Eosinophils % Basophils % Nucleated RBC % % Absolute Neutrophils (1.2-6.7) 10^3/uL Absolute Lymphocytes (1.2-3.4) 10^3/uL Absolute Monocytes (0.1-0.8) 10^3/uL Absolute Eosinophils (0.0-0.7) 10^3/uL Absolute Basophils (0.0-0.2) 10^3/uL ESR (0-20) mm/hr Sample Site ABG Sample Site ABG pH (7.35-7.45) ABG pCO2 (35-45) mmHg ABG pO2 (80-105) mmHg ABG HCO3 (22-26) mmol/L ABG Total CO2 (23-27) mmol/L ABG O2 Saturation (95-98) % ABG Base Excess (-2-3) mmol/L VBG Lactate (0.6-1.4) mmol/L Oxygen Liter Flow FiO2 FiO2 (liters per min) L Sodium (136-145) mmol/L Potassium (3.5-5.1) mmol/L Chloride (98-107) mmol/L Carbon Dioxide (21.0-32.0) mmol/L Anion Gap (3-11) mmol/L BUN (7-18) mg/dL Creatinine (0.70-1.30) mg/dL Estimated GFR/1.73 m2 (mL/min/1.73m2) Glucose (74-106) mg/dL Calcium (8.5-10.1) mg/dL Magnesium (1.8-2.4) mg/dL Ferritin (22-322) ng/mL Total Bilirubin (0.2-1.0) mg/dL AST (15-37) U/L ALT (16-63) U/L Alkaline Phosphatase (46-116) U/L Troponin I (<or=60) ng/L C-Reactive Protein (0.0-0.3) mg/dL NT-Pro-B Natriuret Pep (<300) pg/mL Total Protein (6.4-8.2) g/dL Albumin (3.4-5.0) g/dL Procalcitonin ng/mL TSH (0.36-3.74) uIU/mL Urine Color (Yellow) Urine Clarity (Clear) Urine pH (5-8) Ur Specific [place] (1.005-1.025) Urine Protein (Negative) mg/dL Urine Ketones (Negative) mg/dL Urine Blood (Negative) Urine Nitrite (Negative) Urine Bilirubin (Negative) Urine Urobilinogen (Up TO 0.2) EU/dL Ur Leukocyte Esterase (Negative) Urine RBC (0-2) HPF Urine WBC (0-5) HPF Ur Epithelial Cells (Negative) HPF Urine Crystals (Negative) HPF Urine Bacteria (Negative) HPF Urine Casts (Negative) LPF Urine Mucus (Negative) Ur Culture Indicated? Urine Glucose (Negative) mg/dL Vancomycin Trough Cancelled Adenovirus DNA COVID-19 Source SARS-CoV-2 (PCR) (Negative) Human Metapneumovir RNA Influenza Type A (PCR) (Negative) Influenza Type B (PCR) (Negative) M. pneumoniae Source M. pneumoniae (PCR) Parainfluenza 1 (PCR) Parainfluenza 2 (PCR) Parainfluenza 3 (PCR) Parainfluenza 4 (PCR) RSV (PCR) (Negative) Resp Viral Spec Desc Rhinovirus (PCR) Add-On Test Request Imaging Chest x-ray: report reviewed and image reviewed CT scan - chest: report reviewed and image reviewed
[2021-11-06 07:17] LABS: Anion Gap 11.7 mmol/L (3-11); BUN 40 mg/dL (7-18); CO2 24.3 mmol/L (21.0-32.0); CREATININE 1.6 mg/dL (0.70-1.30); Calcium 9.3 mg/dL (8.5-10.1); Chloride 106 mmol/L (98-107); Estimated GFR 41.69 (mL/min/1.73m2); Glucose 147 mg/dL (74-106); Potassium 3.3 mmol/L (3.5-5.1); Sodium 142 mmol/L (136-145)
[2021-11-06] MEDS: Polyethylene Glycol 3350 17 GM PACKET PO (08:29)
[2021-11-06] MEDS: guaiFENesin 600 MG TABCR 1200 MG PO ×2 (08:31→20:31)
[2021-11-06] MEDS: Cholecalciferol (Vitamin D3) 1,000 UNIT TAB 2000 UNITS PO (08:31)
[2021-11-06] MEDS: Docusate Sodium 100 MG CAP PO ×2 (08:32→20:31)
[2021-11-06] MEDS: predniSONE 20 MG TAB 60 MG PO (08:32)
[2021-11-06] MEDS: Midodrine 2.5 MG TAB PO ×3 (08:32→20:31)
[2021-11-06] MEDS: Sertraline 25 MG TAB PO (08:33)
[2021-11-06] MEDS: Finasteride 5 MG TAB PO (08:33)
[2021-11-06] MEDS: Montelukast 10 MG TAB PO (08:33)
[2021-11-06] MEDS: Apixaban 5 MG TAB PO ×2 (08:33→20:31)
[2021-11-06] MEDS: Pantoprazole 40 MG TABCR PO (08:34)
[2021-11-06] MEDS: Ascorbic Acid 500 MG TAB PO ×2 (08:35→20:31)
[2021-11-06] MEDS: Cetirizine 10 MG TAB 5 MG PO (08:35)
[2021-11-06] MEDS: Fluticasone NASAL SPRAY 16 GM BTL NS ×2 (08:37→20:30)
[2021-11-06] MEDS: Normal Saline Flush 10 ML SYR IVP ×3 (08:38→16:21)
[2021-11-06] MEDS: Nystatin POWDER 60 GM JAR TP ×2 (08:39→20:30)
[2021-11-06] MEDS: Furosemide 40 MG/4 ML VIAL IVP (09:00)
[2021-11-06 10:12] LABS: Cyclic Citrullinated Peptide <2.5 U/mL (<5.0)
--- NOTE | 2021-11-06 11:52 | PDOC.CMPRO ---
- If Service Date Differs Date of service: 11/06/21 Time of Service: 11:52 Care Management Progress Note S/O: Jarrod was sitting up in his chair reading on his iPad when CM met with him. He is being followed by Dr. Marie and Dr. Rodrigues. Jarrod transferred out of the ICU yesterday and reports that he is feeling ok today. He currently ambulates with 1 assist and is eager to start working with PT to regain strength and mobility, so he can return home. Dr. Marie put in a PT ordered. In addition, SNF referrals are pending at [facility] and [facility]. A: Jarrod is an 81 year old male admitted to [facility] on 10/24/21 with Pneumonia, hypoxic respiratory failure P: Anticipate Jarrod will go to a SNF for short term rehab prior to returning home. His sister will likely drive him home via private vehicle when ready vs facility transportation, if available. He will follow up with his PCP and discharge plan of care. CM will continue to follow.
[2021-11-06] MEDS: Potassium Chloride 20 MEQ TABCR PO ×2 (12:35→20:31)
[2021-11-06 13:51] LABS: ANCA Interpretation Negative (Negative)
[2021-11-06 13:53] LABS: dsDNA Ab, IgG <12.3 IU/mL (<30.0)
[2021-11-06 13:56] LABS: ANA Interpretation Positive (Negative); ANA Titer Pattern 1:160 Speckled
[2021-11-06] MEDS: Acetaminophen 325 MG TAB PO (14:04)
[2021-11-06 14:22] LABS: SS-B (La) Ab, IgG 0.8 Units (<20.0)
--- NOTE | 2021-11-06 15:43 | PGE_ITS ---
Date of Service Date of service: 11/06/21 Time of Service: 15:45 Assessment and Plan Assessment and plan (1) Pulmonary emboli: Status: Deleted Assessment and plan: Cont apixiban (2) Polymyalgia rheumatica: Assessment and plan: On steroids. No acute complaints of pain. (3) Chronic frontal sinusitis: Assessment and plan: Questionably an acute process as well. Cont ipratroprium nasal spray: BID. Add fluticasone nasal spray BID. On cefepime which should provide good coverage. (4) Hypothyroidism: Assessment and plan: Cont replacement tx. Qualifiers: Hypothyroidism type: unspecified Qualified Code(s): E03.9 - Hypothyroidism, unspecified (5) Cryptogenic organizing pneumonia: Status: Deleted Assessment and plan: Made ICU status yesterday. Now on Zosyn, vancomycin and levaquin. WBC count has been normal but now elevated at 14.11; questionably steroid effect. 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 UV has his images with request for pulmonary t o call for advise. Cont updrafts, pulmonary toileting. Now on high flow nasal cannula and more comfortable with ease of breathing. Pulmonary to evaluate tomorrow. (6) Hypotension: Status: Resolved Assessment and plan: Now resolved. His lasix and losartan were held. Restart lasix today with an IV dose and then oral dosing to resume tomorrow. Flomax and proscar were held but will resume. Now on midodrine and wearing LUKAS stockings. (7) DVT prophylaxis: Status: Acute Assessment and plan: On apixiban (8) Pneumonia: Status: Resolved Assessment and plan: Now in ICU Now on Zosyn. Vancomycin and levaquin d/c'd. WBC count has been normal but then elevated to 14.11; questionably steroid effect. Has normalized again after stopping high dose steroids. 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 Stopped high dose methylprednisolone and now on prednisone 60mg daily for 7 days,then tapering Q7days. Should be on bactrim for PJP ppx while on >20mg prednisone. Has sulfa allergy but will initiate and monitor. He is on steroids that should negate most reactions. Lab ordered: ANNIE, anti-dsDNA, SSA/SSB, RF, anti-CCP, ANCA, Scl-70 Cont updrafts, pulmonary toileting. Now on nasal cannula 2L. (9) Acute kidney injury superimposed on chronic kidney disease: Status: Acute Assessment and plan: Creatinine increased to 2.0 but now back to 1.6 which is close or within his baseline range. Subjective Subjective Patient reports: shortness of breath (Increased today. ) and afebrile; denies nausea or vomiting Interval history since last seen: Still feeling weak. Fatigues readily with transferring Exam Const General: cooperative, no acute distress and frail appearing Nutritional Appearance: overweight Orientation: alert, awake and oriented x3 HENMT Head: normal to inspection and atraumatic Ears: hearing grossly normal bilaterally Eyes General: appearance normal, both eyes and all related structures Eyelids: eyelids normal Sclera: sclerae normal Neck Neck: normal visual inspection and no JVD Resp Effort & Inspection: normal respiratory effort and able to speak in complete sentences Auscultation: not clear to auscultation bilaterally, crackles (course) bilaterally, diminished lung sounds on the left throughout and wheezes (faint) Cardio Rate: regular rate and tachycardic Rhythm: regular rhythm GI Inspection: normal to inspection and obesity Palpation: soft, not firm, no guarding and nontender Auscultation: normal bowel sounds Back/Spine/Pelvis Back: no CVA tenderness Cervical Spine: normal cervical lordosis Thoracic/Lumbar Spine: thoracic and lumbar spine normal to inspection Skin General skin exam: no rashes or lesions noted and other (venous stasis ulceration, scattered ecchymosis) Neuro General: moves all extremities Cognition: normal cognition Speech: speech normal Gait: normal gait Extrem General: normal to inspection, no calf tenderness and edema Laterality: bilateral (tr) Psych Appearance: grossly normal Mental Status: mental status grossly normal Speech and Movement: speech and movement normal Mood: congruent mood Affect: normal affect Attitude: cooperative Thought Process: normal Thought Content: normal Insight: insight good Judgment: fair Objective Last Vital Signs Temp 36.3 C L 11/06/21 15:09 Pulse 96 H 11/06/21 15:09 Resp 22 11/06/21 15:09 BP 146/74 H 11/06/21 15:09 Pulse Ox 95 11/06/21 15:09 Laboratory Results - last 24 hr 11/04/21 11/05/21 11/05/21 19:35 07:50 08:35 WBC RBC Hgb Hct MCV MCH MCHC RDW Plt Count MPV Immature Gran % Neutrophils % Lymphocytes % Monocytes % Eosinophils % Basophils % Nucleated RBC % Absolute Neutrophils Absolute Lymphocytes Absolute Monocytes Absolute Eosinophils Absolute Basophils Sodium Potassium Chloride Carbon Dioxide Anion Gap BUN Creatinine Estimated GFR/1.73 m2 Glucose Calcium Rheumatoid Factor 9.3 Cyclic Citrull Peptide ANNIE Titer ANNIE Titer 2 ANNIE Titer 3 ANNIE Interpretation ANCA Immunofluorescen ANCA Titer ANCA Pattern SS-A Antibody 1.0 SS-B Antibody 0.8 Double Strand DNA Ab <12.3 Urine Legionella Ag Negative 11/05/21 11/06/21 11/06/21 08:35 06:21 06:21 WBC 10.75 RBC 3.44 L Hgb 11.3 L Hct 34.4 L MCV 100.0 H MCH 32.8 MCHC 32.8 RDW 13.2 Plt Count 239 MPV 10.5 Immature Gran % 3.1 Neutrophils % 85.9 Lymphocytes % 4.8 Monocytes % 5.9 Eosinophils % 0.1 Basophils % 0.2 Nucleated RBC % 0 Absolute Neutrophils 9.24 H Absolute Lymphocytes 0.52 L Absolute Monocytes 0.63 Absolute Eosinophils 0.01 Absolute Basophils 0.02 Sodium 142 Potassium 3.3 L Chloride 106 Carbon Dioxide 24.3 Anion Gap 11.7 H BUN 40 H Creatinine 1.6 H Estimated GFR/1.73 m2 41.69 Glucose 147 H Calcium 9.3 Rheumatoid Factor Cyclic Citrull Peptide <2.5 ANNIE Titer 1:160 Speckled ANNIE Titer 2 Not Applicable ANNIE Titer 3 Not Applicable ANNIE Interpretation Positive A ANCA Immunofluorescen Negative ANCA Titer Not Applicable ANCA Pattern Not Applicable SS-A Antibody SS-B Antibody Double Strand DNA Ab Urine Legionella Ag PAWSS Have you Been Recently Intoxicated or Drunk Within the Last 30 days?: No Have you Ever Experienced Previous Episodes of Alcohol Withdrawal?: No Have you ever Experienced Withdrawal Seizures?: No Have you ever Experienced Delirium Tremens(DT)s?: No Have you ever undergone Alcohol Rehabilitation Treatment (i.e, inpt ot outpatient treatment programs)?: No Have you ever Experienced Blackouts?: No Have you ever Combined Alcohol with other Downers within the last 90 days?: No Have you ever Combined Alcohol with any other Substance of Abuse during the last 90 days?: No Positive Blood Alcohol level on Presentation? [PCS.BAL]: No Evidence of Increased Autonomic Activity (i.e. HR>120, tremor, sweating, agitation, nausea)?: No Result: 0
[2021-11-06] MEDS: Insulin Aspart 300 UNITS/3 ML PEN SC ×2 (16:59→23:08)
[2021-11-06 17:20] LABS: Adenovirus DNA Result Negative (Negative); Metapneumovirus RNA Result Negative (Negative); Parainfluenza Type1 RNA Result Negative (Negative); Parainfluenza Type2 RNA Result Negative (Negative); Parainfluenza Type3 RNA Result Negative (Negative); Parainfluenza Type4 RNA Result Negative (Negative); Rhinovirus RNA Result Negative (Negative)
[2021-11-06] MEDS: Lidocaine 5% Patch 1 PATCH TP (17:34)
[2021-11-06] MEDS: Tamsulosin 0.4 MG CAPCR 0.8 MG PO (23:08)
[2021-11-06] MEDS: rOPINIRole 1 MG TAB 2 MG PO (23:08)
[2021-11-07] VITALS (8 sets, daily range): BP systolic 119–156; BP diastolic 67–89; PULSE 87–99; RESP 2–22; TEMP 36.4–36.6; O2SAT 92–99
[2021-11-07 00:41] LABS: Fungitell Qualitative Positive (Negative); Fungitell Quantitative Value 149 pg/mL (<60 pg/mL)
[2021-11-07] MEDS: Albuterol/Ipratropium 3 ML UPD VIAL UPD ×6 (02:23→21:11)
[2021-11-07] MEDS: PIPERACILLIN/TAZO 3.375 GM in Normal Saline 50 ML IVPB (04:10)
[2021-11-07] MEDS: Lidocaine Patch Removal 1 EACH TD (06:28)
[2021-11-07] MEDS: Levothyroxine 75 MCG TAB PO (06:28)
[2021-11-07] MEDS: Cholecalciferol (Vitamin D3) 1,000 UNIT TAB 2000 UNITS PO (08:51)
[2021-11-07] MEDS: guaiFENesin 600 MG TABCR 1200 MG PO ×2 (08:51→21:13)
[2021-11-07] MEDS: predniSONE 20 MG TAB 60 MG PO (08:52)
[2021-11-07] MEDS: Midodrine 2.5 MG TAB PO ×3 (08:52→21:12)
[2021-11-07] MEDS: Ascorbic Acid 500 MG TAB PO ×2 (08:53→21:13)
[2021-11-07] MEDS: Apixaban 5 MG TAB PO ×2 (08:53→21:11)
[2021-11-07] MEDS: Finasteride 5 MG TAB PO (08:53)
[2021-11-07] MEDS: Furosemide 40 MG TAB PO (08:53)
[2021-11-07] MEDS: Potassium Chloride 20 MEQ TABCR PO ×2 (08:53→21:13)
[2021-11-07] MEDS: Montelukast 10 MG TAB PO (08:53)
[2021-11-07] MEDS: Pantoprazole 40 MG TABCR PO (08:54)
[2021-11-07] MEDS: Sertraline 25 MG TAB PO (08:54)
[2021-11-07] MEDS: Cetirizine 10 MG TAB 5 MG PO (08:55)
[2021-11-07] MEDS: Fluticasone NASAL SPRAY 16 GM BTL NS ×2 (08:56→21:11)
[2021-11-07] MEDS: Nystatin POWDER 60 GM JAR TP ×2 (08:59→21:12)
--- NOTE | 2021-11-07 09:28 | IN_ITS ---
Date of service: 11/07/21 Time of Service: 09:28 PT Notes Visit Reasons: Pneumonia Physical Therapy Inpatient Initial Evaluation Date: 11/07/2021 Referring Doctor: Eliseo Marie MD PT Orders: PT CONSULT: Extended stay weakness. Limited ability Precautions: Fall. Standard. Activity as tolerated. Patient Profile/Admitting Diagnosis: Jarrod is a 81-year-old male who returned from the ICU to the Medr unit with diagnosis of pulmonary emboli, polymyalgia rheumatica, chronic frontal sinusitis, hypothyroidism, cryptogenic organizing pneumonia, hypertension, and acute kidney injury. PMHX: All Active Problems? Pneumonia (Acute) SOB (shortness of breath) (Acute) Pulmonary emboli (Acute) Bilateral pneumonia (Acute) Sleep apnea (Chronic) PAD (peripheral artery disease) (Chronic) Medical History? BPH (benign prostatic hyperplasia) Chronic ethmoidal sinusitis Chronic frontal sinusitis Chronic kidney disease Deviated nasal septum Dilated aortic root Discharge planning issues DVT prophylaxis E coli bacteremia Fractured rib mid Sept 2019Hypothyroidism Kidney stone Lyme disease Nasal septal spur Nasal turbinate hypertrophy Parkinsons pt. states he does not have Polymyalgia rheumatica pt. reports he has this not parkinsonsPulmonary fat embolism Pyelonephritis due to Escherichia coli Surgical History? Hx of colonoscopy Hx of inguinal hernia surgery Hx of total hip arthroplasty right Social History/Home Situation: Lives alone in a private home with 3 steps to enter with rails on both sides.? States that he has his firewood stored some 25 feet outside of his home and that a neighbor is able to help him bring firewood as needed.? Still drives.? Independent with all aspects of ADLs prior to admission. Equipment Owned/DME: None Subjective: Happy to have gotten back to the med surg unit. reported nose being stuffy and attempted several times to blow nose. Patient expelled reddish, greenish plug of mucus which Nurse Allegra and Nurse Michelle were updated about. Reports continued B LE weakness after ambulation activity. Objective: General Observation: Seated on chair. Appeared exhausted and in mild discomfort. Mental Status: Alert and oriented as to person, place, time, and purpose. Able to pay attention, focus, and respond appropriately. Pain: Denies ROM: Right Upper Extremity: ? Shoulder Flexion WFL. Shoulder abduction WFL. Elbow flexion WFL. Wrist flexion WFL. Functional opening and closing of hand WFL. Left Upper Extremity:? Shoulder Flexion WFL. Shoulder abduction WFL. Elbow flexion WFL. Wrist flexion WFL. Functional opening and closing of hand WFL. Right Lower Extremity: Hip flexion WFL. Hip abduction WFL. Knee flexion WFL. Ankle dorsiflexion WFL. Ankle plantarflexion WFL. Left Lower Extremity: Hip flexion WFL. Hip abduction WFL. Knee flexion WFL. Ankle dorsiflexion WFL. Ankle plantarflexion WFL. Strength: Right Upper Extremity: Shoulder flexors 3+/5. Shoulder abductors 3+/5. Elbow flexors 3+5. Elbow extensors 3+/5. Acute Care Clinical Nurse Specialist strong. Left Upper Extremity: Shoulder flexors 3+/5. Shoulder abductors 3+/5. Elbow flexors 3+/5. Elbow extensors 3+/5. Acute Care Clinical Nurse Specialist strong. Right Lower Extremity: Hip flexors 3+/5. Hip abductors 3+/5. Knee flexors 4-/5. Knee extensors 3+/5. Ankle dorsiflexors 3+/5. Ankle plantarflexors 3+/5. Left Lower Extremity: Hip flexors 3+/5. Hip abductors 3+/5. Knee flexors 4-/5. Knee extensors 3+/5. Ankle dorsiflexors 3+/5. Ankle plantarflexors 3+/5. Bed Mobility/Transfers: Sit to stand with standby assist Stand to sit with standby assist Bed to bedside recliner standby assist Gait: Tolerated level surface ambulation of 100 feet +200 feet using front wheeled walker with full weight bearing requiring standby assist and wheelchair follow with oxygen supplementation of 4 L up to 10 L and with oxygen saturation low of 79% and high of 97% during activity. Complains of bilateral lower extrem ity weakness. Balance: Static Sitting: Normal Dynamic Sitting: Normal Static Standing: Fair Dynamic Standing: Fair Special Tests: Mobility Limitations Standardized Measure [facility] 6 clicks Basic Mobility Inpatient Short Form: Raw Score: 23 ? CMS Score: 11% deficit? ? ? Informed Consent/Education:? Patient was instructed in purpose of PT consult and plan of care. Agreeable to proceed with established PT POC to achieve personal goals. Assessment: ?Patient continues to present with clinical signs and symptoms consistent with current/admitting diagnoses that have resulted to mobility limitations, gait instability, generalized weakness, and overall ADL decline as demonstrated by the following impairment level findings: 1.? Decreased strength to B UE/LE major muscle groups 2.? Impaired sitting/standing balance 3.? Impaired activity tolerance 4.? Shortness of breath 5.? Fatigue Impairments are contributing to the following functional limitations: 1.? Difficulty with ambulation without assistive device and physical assistance 2.? Increased completion time for mobility ADL performance 3.? Increased risk for falls 4.? Difficulty with managing steps alone safely Patient is assessed as a 63255 moderate? based on the following: History: 81-year-old malewith past medical history as indicated above Examination: Demonstrable impairment in strength, balance, and mobility level with underlying impairments and functional limitations as exhibited above as well as deficit score of 47% utilizing the [facility] Mobility Inpatient Short Form Presentation: Evolving Decision Makin moderate complexity Goals: Goals X1 week 1. Supine-Sit independent 2. Sit-Supine independent 3. Sit-Stand independent 4. Stand-Sit independent with no FWW 5. Bed-Chair independent with no FWW 6. Chair-Bed independent with no FWW 7. Independent gait on level surface with use of FWW for at least? 300 feet without report of pain nor dyspnea 8. Good static and dynamic standing balance/tolerance Plan of Care/Treatment Plan: 1-2x/day, 7 days/week x 1 week. Plan of care has been reviewed with the NETWORK OPERATIONS PROJECT MANAGER providing the service under Physical Therapy direction. Initiate Physical Therapy intervention for pain management as needed, strengthening, bed mobility, transfers, gait, stairs, balance training, and use of assistive device. DISCHARGE RECOMMENDATIONS: [] ? Home with no services [] [] ? Home with services [specify] [] ? Home with outpatient PT [] [X] ? SNF for continued rehabilitation. Discharge to SNF when medically cleared by hospitalist. Patient will benefit from longterm facility placement for continued skilled physical therapy services in order to progress mobility level, strength, and balance to maximize functional outcomes. [] ? Bun Icer [facility] [] [] ? SNF versus LTC based on ability to participate and progress [] TREATMENT CODE/TIME: 68909 x 20 minutes, 16127 x 13 minutes beginning at 9:28 AM. Thank you for the opportunity to participate in the care of this patient. Pepper Woodard PT, DPT, CLT [facility] [place], [place]
[2021-11-07 10:52] LABS: Scl 70 Antibodies, IgG <0.2 U
--- NOTE | 2021-11-07 11:14 | W.PULMPROG ---
Assessment and Plan Assessment and plan (1) Pulmonary infiltrate: Status: Acute (2) Acute sinusitis: Status: Acute (3) Acute otitis media with effusion of left ear: Status: Resolved (4) History of pulmonary embolism: Status: Acute (5) Acute kidney injury superimposed on CKD: Status: Acute Assessment and plan: This is a 81 yo man with PMR who was admitted for a pneumonia in September and a RUL PE, who returns earlier this month for shortness of breath. He has been treated for a recurrent sinusitis and received extended courses of several antibiotics for this as well as a pneumonia. His Fungitell return very positive today and so steroids were discontinued. I will test for aspergillus, mucor and chicho. Histo and blasto are pending. Given this news it is of a much high priority to get a bronchoscopy in order to isolate the fungal organism. I have put in for an anesthesia consult to assess safety of performing this at our institution. I will empirically treat with micafungin and would continue the Bactrim. Pulmonary Infiltrates, possible organizing pneumonia - D/C high dose methylprednisilone - Fungitell returned very positive - 149 so prednisone discontinued - repeat Fungitell ordered in addition to aspergillus and chicho testing - fungal sputum culture - autoimmune panel negative - urine histo, urine blasto pending - repeat blood cultures - continue Mucinex, VibraPEP, prn albuterol neb - rheumatoid screen negative, urine legionella antigen negative - will start micafungin 100mg daily - continue Bactrim PO for now - anesthesia consult to consider for bronchoscopy Friday to isolate organism Sinusitis - has been treated by now with all the antibiotics he has been on. 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 He feels a bit more tired. He feels as though his chets congestion is more wet but he is still having a hard time coughing it up. Exam Narrative Exam Narrative: Gen: NAD, normal respiratory effort, well-nourished HENT: PERRL, nasal turbinates normal without erythema or inflammation, moist oral mucosa, Mallampati 2, No LAD or JVD Chest: No respiratory distress, normal appearance of chest, rales and wheezes diffusely Heart: regular rate and rhythym, no murmurs, rubs or gallops Abdomen: Non-distended, soft, non tender Extremities: No clubbing, cyanosis, rashes. LE edema improved compared to yesterdat Neuro: AAOx3 , non focal Psych: cooperative, appropriate mental affect Objective Last Vital Signs Temp 36.6 C 11/07/21 08:03 Pulse 93 H 11/07/21 08:03 Resp 18 11/07/21 10:12 BP 119/72 11/07/21 08:03 Pulse Ox 92 11/07/21 10:12 Laboratory Results - last 24 hr 11/02/21 11/05/21 11/05/21 21:09 07:50 08:35 Cyclic Citrull Peptide ANNIE Titer ANNIE Titer 2 ANNIE Titer 3 ANNIE Interpretation ANCA Immunofluorescen ANCA Titer ANCA Pattern SS-A Antibody 1.0 SS-B Antibody 0.8 Scl-70 IgG Ab <0.2 Double Strand DNA Ab <12.3 Adenovirus DNA Negative Human Metapneumovir RNA Negative Parainfluenza 1 (PCR) Negative Parainfluenza 2 (PCR) Negative Parainfluenza 3 (PCR) Negative Parainfluenza 4 (PCR) Negative Resp Viral Spec Desc Not Applicable Rhinovirus (PCR) Negative B-(1,3)-D-Glucan Quant B-(1,3)-D-Glucan Qual 11/05/21 11/05/21 08:35 08:35 Cyclic Citrull Peptide <2.5 ANNIE Titer 1:160 Speckled ANNIE Titer 2 Not Applicable ANNIE Titer 3 Not Applicable ANNIE Interpretation Positive A ANCA Immunofluorescen Negative ANCA Titer Not Applicable ANCA Pattern Not Applicable SS-A Antibody SS-B Antibody Scl-70 IgG Ab Double Strand DNA Ab Adenovirus DNA Human Metapneumovir RNA Parainfluenza 1 (PCR) Parainfluenza 2 (PCR) Parainfluenza 3 (PCR) Parainfluenza 4 (PCR) Resp Viral Spec Desc Rhinovirus (PCR) B-(1,3)-D-Glucan Quant 149 A B-(1,3)-D-Glucan Qual Positive A Results Medications Medications: Active Medications Generic Name Dose Route Start Last Admin Trade Name Freq PRN Reason Stop Dose Admin Acetaminophen 0 mg 10/24/21 18:34 11/06/21 14:04 Acetaminophen 325 Mg Tab PO 650 mg Q4H PRN PRN Administration Acetaminophen/Aspirin/Caffeine 2 each 11/02/21 17:01 Acetaminophen 250 Mg/Aspirin 250 Mg/Caffeine 65 Mg Tab PO Q6H PRN PRN Al Hydrox/Mg Hydrox/Simethicone 30 ml 10/28/21 06:00 10/28/21 06:21 Mylanta Suspension 30 Ml Cup PO 30 ml Q4H PRN PRN Administration Albuterol Sulfate 2.5 mg 10/24/21 18:34 11/02/21 06:38 Albuterol 2.5 Mg/3 Ml Inh Soln Vial UPD 2.5 mg Q2H PRN PRN Administration Albuterol/Ipratropium 3 ml 11/02/21 14:00 11/07/21 10:12 Albuterol/Ipratropium 3 Ml Upd Vial UPD 3 ml Q4H DEVENDRA Administration Apixaban 5 mg 10/24/21 20:00 11/07/21 08:53 Apixaban 5 Mg Tab PO 5 mg BID DEVENDRA Administration Ascorbic Acid 500 mg 11/02/21 20:00 11/07/21 08:53 Ascorbic Acid 500 Mg Tab PO 500 mg BID DEVENDRA Administration Cetirizine HCl 5 mg 10/28/21 12:30 11/07/21 08:55 Cetirizine 10 Mg Tab PO 5 mg DAILY DEVENDRA Administration Cholecalciferol 2,000 units 11/03/21 08:30 11/07/21 08:51 Cholecalciferol (Vitamin D3) 1,000 Unit Tab PO 2,000 units DAILY DEVENDRA Administration Dimethicone/Zinc Oxide 0 gm 10/24/21 18:34 Christina Protect Cream 142 Gm Tube TP PRN PRN Docusate Sodium 100 mg 11/04/21 20:00 11/07/21 08:58 Docusate Sodium 100 Mg Cap PO Not Given BID DEVENDRA Finasteride 5 mg 11/03/21 15:10 11/07/21 08:53 Finasteride 5 Mg Tab PO 5 mg DAILY DEVENDRA Administration Fluticasone Propionate 16 gm 10/25/21 08:30 11/07/21 08:56 Fluticasone Nasal [place] 16 Gm Btl NS 2 sprays BID DEVENDRA Administration Furosemide 40 mg 11/07/21 08:30 11/07/21 08:53 Furosemide 40 Mg Tab PO 40 mg DAILY DEVENDRA Administration Guaifenesin 1,200 mg 10/25/21 08:30 11/07/21 08:51 Guaifenesin 600 Mg Tabcr PO 1,200 mg BID DEVENDRA Administration Insulin Aspart 0 units 11/04/21 22:00 11/07/21 08:57 Insulin Aspart 300 Units/3 Ml Pen SC Not Given 0800,1200,1700,2200 [facility] Protocol Ipratropium [place] 0 ml 10/25/21 08:30 11/07/21 08:56 Ipratropium 0.03% 30 Ml Btl NS 2 sprays BID DEVENDRA Administration Lactobacillus Acidophilus/Casei 1 cap 11/03/21 08:30 11/07/21 08:52 L. Acidophilus, Casei, Rhamnosus Cap PO 1 cap DAILY DEVENDRA Administration Levothyroxine Sodium 75 mcg 10/26/21 06:00 11/07/21 06:28 Levothyroxine 75 Mcg Tab PO 75 mcg DAILY@0600 DEVENDRA Administration Lidocaine 1 patch 11/01/21 18:00 11/06/21 17:34 Lidocaine 5% Patch TP 1 patch Q24H DEVENDRA Administration Midodrine 2.5 mg 11/02/21 15:00 11/07/21 08:52 Midodrine 2.5 Mg Tab PO 2.5 mg TID DEVENDRA Administration Miscellaneous 1 each 11/02/21 06:00 11/07/21 06:28 Lidocaine Patch Removal TD 1 each Q24H DEVENDRA Administration Montelukast Sodium 10 mg 10/25/21 08:30 11/07/21 08:53 Montelukast 10 Mg Tab PO 10 mg DAILY DEVENDRA Administration Nystatin 0 gm 11/05/21 20:00 11/07/21 08:59 Nystatin Powder 60 Gm Jar TP 1 applic BID DEVENDRA Administration Ondansetron HCl 4 mg 10/28/21 12:42 Ondansetron 4 Mg/2 Ml Vial IVP Q4H PRN PRN Pantoprazole Sodium 40 mg 10/26/21 07:30 11/07/21 08:54 Pantoprazole 40 Mg Tabcr PO 40 mg DAILY@0730 DEVENDRA Administration Polyethylene Glycol 17 gm 11/04/21 14:45 11/07/21 08:59 Polyethylene Glycol 3350 17 Gm Packet PO Not Given DAILY DEVENDRA Potassium Chloride 20 meq 11/06/21 11:05 03/02/22 08:53 Potassium Chloride 20 Meq Tabcr PO 20 meq BID DEVENDRA Administration Prednisone 60 mg 11/05/21 08:30 11/07/21 08:52 Prednisone 20 Mg Tab PO 60 mg DAILY DEVENDRA Administration Ropinirole HCl 2 mg 10/24/21 22:00 11/06/21 23:08 Ropinirole 1 Mg Tab PO 2 mg HS DEVENDRA Administration Sertraline HCl 25 mg 10/25/21 08:30 11/07/21 08:54 Sertraline 25 Mg Tab PO 25 mg DAILY DEVENDRA Administration Sodium Chloride 0 ml 10/24/21 20:59 11/06/21 16:21 Normal Saline Flush 10 Ml Syr IVP 20 ml PRN PRN Administration Tamsulosin HCl 0.8 mg 11/03/21 22:00 11/06/21 23:08 Tamsulosin 0.4 Mg Capcr PO 0.8 mg HS DEVENDRA Administration Trimethoprim/Sulfamethoxazole 1 tab 11/07/21 08:30 11/07/21 08:52 Sulfameth/Trimeth Reg Str Tab PO 1 tab DAILY DEVENDRA Administration Allergies Sulfa (Sulfonamide Antibiotics) Adverse Reaction (Intermediate, Verified 10/24/21 16:31) Its been along time cat dander Adverse Reaction (Mild, Verified 10/24/21 16:31) penicillin V Adverse Reaction (Mild, Verified 10/24/21 16:31) nausea salicylates Adverse Reaction (Mild, Verified 10/24/21 16:31) up set stomach Labs Result Diagrams: 11/06/21 06:21 11/06/21 06:21 Labs: 11/02/21 15:30 Sputum Sputum Culture - Final Gram Negative Shannan,Mixed Normal Shannan 11/02/21 15:30 Sputum Gram Stain - Final 10/29/21 23:00 Blood Blood Culture - Final NO GROWTH 120 HOURS 10/29/21 22:45 Blood Blood Culture - Final NO GROWTH 120 HOURS 10/28/21 14:19 Blood Blood Culture - Final NO GROWTH 120 HOURS 10/28/21 14:19 Blood Blood Culture - Final NO GROWTH 120 HOURS 10/30/21 10:17 Nasopharynx Influenza Types A,B Antigen - Final 10/24/21 17:39 Blood Blood Culture - Final NO GROWTH 120 HOURS 10/24/21 17:30 Blood Blood Culture - Final NO GROWTH 120 HOURS 10/24/21 18:55 Nose MRSA Screen - Final Laboratory Tests Range/Units 10/24/21 10/24/21 10/24/21 16:55 16:55 16:55 WBC (4.4-10.8) 10^3/uL 11.13 H RBC (4.36-5.78) 10^6/uL 3.91 L Hgb (13.5-17.5) g/dL 13.1 L Hct (40.0-50.0) % 39.0 L MCV (80-95) fL 99.7 H MCH (27.0-33.0) pg 33.5 H MCHC (32.0-36.0) % 33.6 RDW (11.8-14.1) % 12.4 Plt Count (130-400) 10^3/uL 133 D MPV (8.0-11.0) fL 10.0 Immature Gran % 2.3 Neutrophils % 89.6 Lymphocytes % 2.8 Monocytes % 4.9 Eosinophils % 0.2 Basophils % 0.2 Nucleated RBC % % 0 Absolute Neutrophils (1.2-6.7) 10^3/uL 9.97 H Absolute Lymphocytes (1.2-3.4) 10^3/uL 0.31 L Absolute Monocytes (0.1-0.8) 10^3/uL 0.55 Absolute Eosinophils (0.0-0.7) 10^3/uL 0.02 Absolute Basophils (0.0-0.2) 10^3/uL 0.02 ESR (0-20) mm/hr Sample Site ABG Sample Site ABG pH (7.35-7.45) ABG pCO2 (35-45) mmHg ABG pO2 (80-105) mmHg ABG HCO3 (22-26) mmol/L ABG Total CO2 (23-27) mmol/L ABG O2 Saturation (95-98) % ABG Base Excess (-2-3) mmol/L VBG Lactate (0.6-1.4) mmol/L Oxygen Liter Flow FiO2 FiO2 (liters per min) L Sodium (136-145) mmol/L 135 L Potassium (3.5-5.1) mmol/L 4.1 Chloride (98-107) mmol/L 99 Carbon Dioxide (21.0-32.0) mmol/L 31.1 Anion Gap (3-11) mmol/L 4.9 BUN (7-18) mg/dL 30 H Creatinine (0.70-1.30) mg/dL 1.7 H Estimated GFR/1.73 m2 (mL/min/1.73m2) 38.88 Glucose (74-106) mg/dL 107 H Calcium (8.5-10.1) mg/dL 8.2 L Magnesium (1.8-2.4) mg/dL 1.8 Ferritin (22-322) ng/mL Total Bilirubin (0.2-1.0) mg/dL 0.8 AST (15-37) U/L 20 ALT (16-63) U/L 18 Alkaline Phosphatase (46-116) U/L 47 Troponin I (<or=60) ng/L < 50 C-Reactive Protein (0.0-0.3) mg/dL NT-Pro-B Natriuret Pep (<300) pg/mL 658 H Total Protein (6.4-8.2) g/dL 5.9 L Albumin (3.4-5.0) g/dL 3.0 L Procalcitonin ng/mL TSH (0.36-3.74) uIU/mL Urine Color (Yellow) Urine Clarity (Clear) Urine pH (5-8) Ur Specific [place] (1.005-1.025) Urine Protein (Negative) mg/dL Urine Ketones (Negative) mg/dL Urine Blood (Negative) Urine Nitrite (Negative) Urine Bilirubin (Negative) Urine Urobilinogen (Up TO 0.2) EU/dL Ur Leukocyte Esterase (Negative) Urine RBC (0-2) HPF Urine WBC (0-5) HPF Ur Epithelial Cells (Negative) HPF Urine Crystals (Negative) HPF Urine Bacteria (Negative) HPF Urine Casts (Negative) LPF Urine Mucus (Negative) Ur Culture Indicated? Urine Glucose (Negative) mg/dL Vancomycin Trough Rheumatoid Factor (<12.0) IU/mL Cyclic Citrull Peptide (<5.0) U/mL ANNIE Titer ANNIE Titer 2 ANNIE Titer 3 ANNIE Interpretation (Negative) ANCA Immunofluorescen (Negative) ANCA Titer ANCA Pattern SS-A Antibody (<20.0) Units SS-B Antibody (<20.0) Units Scl-70 IgG Ab U Double Strand DNA Ab (<30.0) IU/mL Adenovirus DNA (Negative) COVID-19 Source Nasal/Nares SARS-CoV-2 (PCR) (Negative) Negative Human Metapneumovir RNA (Negative) Influenza Type A (PCR) (Negative) Negative Influenza Type B (PCR) (Negative) Negative Urine Legionella Ag (Negative) M. pneumoniae Source M. pneumoniae (PCR) Parainfluenza 1 (PCR) (Negative) Parainfluenza 2 (PCR) (Negative) Parainfluenza 3 (PCR) (Negative) Parainfluenza 4 (PCR) (Negative) RSV (PCR) (Negative) Negative Resp Viral Spec Desc Rhinovirus (PCR) (Negative) B-(1,3)-D-Glucan Quant (<60 pg/mL) pg/mL B-(1,3)-D-Glucan Qual (Negative) Add-On Test Request Range/Units 10/24/21 10/24/21 10/24/21 17:12 17:12 17:20 WBC (4.4-10.8) 10^3/uL RBC (4.36-5.78) 10^6/uL Hgb (13.5-17.5) g/dL Hct (40.0-50.0) % MCV (80-95) fL MCH (27.0-33.0) pg MCHC (32.0-36.0) % RDW (11.8-14.1) % Plt Count (130-400) 10^3/uL MPV (8.0-11.0) fL Immature Gran % Neutrophils % Lymphocytes % Monocytes % Eosinophils % Basophils % Nucleated RBC % % Absolute Neutrophils (1.2-6.7) 10^3/uL Absolute Lymphocytes (1.2-3.4) 10^3/uL Absolute Monocytes (0.1-0.8) 10^3/uL Absolute Eosinophils (0.0-0.7) 10^3/uL Absolute Basophils (0.0-0.2) 10^3/uL ESR (0-20) mm/hr Sample Site ABG Sample Site ABG pH (7.35-7.45) ABG pCO2 (35-45) mmHg ABG pO2 (80-105) mmHg ABG HCO3 (22-26) mmol/L ABG Total CO2 (23-27) mmol/L ABG O2 Saturation (95-98) % ABG Base Excess (-2-3) mmol/L VBG Lactate (0.6-1.4) mmol/L 2.2 H* Oxygen Liter Flow FiO2 FiO2 (liters per min) L Sodium (136-145) mmol/L Potassium (3.5-5.1) mmol/L Chloride (98-107) mmol/L Carbon Dioxide (21.0-32.0) mmol/L Anion Gap (3-11) mmol/L BUN (7-18) mg/dL Creatinine (0.70-1.30) mg/dL Estimated GFR/1.73 m2 (mL/min/1.73m2) Glucose (74-106) mg/dL Calcium (8.5-10.1) mg/dL Magnesium (1.8-2.4) mg/dL Ferritin (22-322) ng/mL Total Bilirubin (0.2-1.0) mg/dL AST (15-37) U/L ALT (16-63) U/L Alkaline Phosphatase (46-116) U/L Troponin I (<or=60) ng/L C-Reactive Protein (0.0-0.3) mg/dL NT-Pro-B Natriuret Pep (<300) pg/mL Total Protein (6.4-8.2) g/dL Albumin (3.4-5.0) g/dL Procalcitonin ng/mL 0.2 TSH (0.36-3.74) uIU/mL Urine Color (Yellow) Yellow Urine Clarity (Clear) Clear Urine pH (5-8) 6.0 Ur Specific [place] (1.005-1.025) 1.015 Urine Protein (Negative) mg/dL Negative Urine Ketones (Negative) mg/dL Negative Urine Blood (Negative) Moderate H Urine Nitrite (Negative) Negative Urine Bilirubin (Negative) Negative Urine Urobilinogen (Up TO 0.2) EU/dL 0.2 Ur Leukocyte Esterase (Negative) Negative Urine RBC (0-2) HPF >50 H Urine WBC (0-5) HPF 0-2 Ur Epithelial Cells (Negative) HPF Few Urine Crystals (Negative) HPF Negative Urine Bacteria (Negative) HPF Negative Urine Casts (Negative) LPF Negative Urine Mucus (Negative) Trace Ur Culture Indicated? No Urine Glucose (Negative) mg/dL Negative Vancomycin Trough Rheumatoid Factor (<12.0) IU/mL Cyclic Citrull Peptide (<5.0) U/mL ANNIE Titer ANNIE Titer 2 ANNIE Titer 3 ANNIE Interpretation (Negative) ANCA Immunofluorescen (Negative) ANCA Titer ANCA Pattern SS-A Antibody (<20.0) Units SS-B Antibody (<20.0) Units Scl-70 IgG Ab U Double Strand DNA Ab (<30.0) IU/mL Adenovirus DNA (Negative) COVID-19 Source SARS-CoV-2 (PCR) (Negative) Human Metapneumovir RNA (Negative) Influenza Type A (PCR) (Negative) Influenza Type B (PCR) (Negative) Urine Legionella Ag (Negative) M. pneumoniae Source M. pneumoniae (PCR) Parainfluenza 1 (PCR) (Negative) Parainfluenza 2 (PCR) (Negative) Parainfluenza 3 (PCR) (Negative) Parainfluenza 4 (PCR) (Negative) RSV (PCR) (Negative) Resp Viral Spec Desc Rhinovirus (PCR) (Negative) B-(1,3)-D-Glucan Quant (<60 pg/mL) pg/mL B-(1,3)-D-Glucan Qual (Negative) Add-On Test Request Range/Units 10/25/21 10/25/21 10/26/21 06:45 06:45 06:26 WBC (4.4-10.8) 10^3/uL 8.35 RBC (4.36-5.78) 10^6/uL 3.56 L Hgb (13.5-17.5) g/dL 11.9 L Hct (40.0-50.0) % 36.0 L MCV (80-95) fL 101.1 H MCH (27.0-33.0) pg 33.4 H MCHC (32.0-36.0) % 33.1 RDW (11.8-14.1) % 12.4 Plt Count (130-400) 10^3/uL 104 L MPV (8.0-11.0) fL 10.3 Immature Gran % 2.3 Neutrophils % 80.6 Lymphocytes % 8.5 Monocytes % 4.8 Eosinophils % 3.4 Basophils % 0.4 Nucleated RBC % % 0 Absolute Neutrophils (1.2-6.7) 10^3/uL 6.74 H Absolute Lymphocytes (1.2-3.4) 10^3/uL 0.71 L Absolute Monocytes (0.1-0.8) 10^3/uL 0.40 Absolute Eosinophils (0.0-0.7) 10^3/uL 0.28 Absolute Basophils (0.0-0.2) 10^3/uL 0.03 ESR (0-20) mm/hr Sample Site ABG Sample Site ABG pH (7.35-7.45) ABG pCO2 (35-45) mmHg ABG pO2 (80-105) mmHg ABG HCO3 (22-26) mmol/L ABG Total CO2 (23-27) mmol/L ABG O2 Saturation (95-98) % ABG Base Excess (-2-3) mmol/L VBG Lactate (0.6-1.4) mmol/L Oxygen Liter Flow FiO2 FiO2 (liters per min) L Sodium (136-145) mmol/L 137 138 Potassium (3.5-5.1) mmol/L 3.1 L D 3.1 L Chloride (98-107) mmol/L 101 102 Carbon Dioxide (21.0-32.0) mmol/L 29.7 26.3 Anion Gap (3-11) mmol/L 6.3 9.7 BUN (7-18) mg/dL 28 H 28 H Creatinine (0.70-1.30) mg/dL 1.6 H 1.6 H Estimated GFR/1.73 m2 (mL/min/1.73m2) 41.69 41.69 Glucose (74-106) mg/dL 84 134 H Calcium (8.5-10.1) mg/dL 8.1 L 8.0 L Magnesium (1.8-2.4) mg/dL Ferritin (22-322) ng/mL Total Bilirubin (0.2-1.0) mg/dL AST (15-37) U/L ALT (16-63) U/L Alkaline Phosphatase (46-116) U/L Troponin I (<or=60) ng/L C-Reactive Protein (0.0-0.3) mg/dL NT-Pro-B Natriuret Pep (<300) pg/mL Total Protein (6.4-8.2) g/dL Albumin (3.4-5.0) g/dL Procalcitonin ng/mL TSH (0.36-3.74) uIU/mL Urine Color (Yellow) Urine Clarity (Clear) Urine pH (5-8) Ur Specific [place] (1.005-1.025) Urine Protein (Negative) mg/dL Urine Ketones (Negative) mg/dL Urine Blood (Negative) Urine Nitrite (Negative) Urine Bilirubin (Negative) Urine Urobilinogen (Up TO 0.2) EU/dL Ur Leukocyte Esterase (Negative) Urine RBC (0-2) HPF Urine WBC (0-5) HPF Ur Epithelial Cells (Negative) HPF Urine Crystals (Negative) HPF Urine Bacteria (Negative) HPF Urine Casts (Negative) LPF Urine Mucus (Negative) Ur Culture Indicated? Urine Glucose (Negative) mg/dL Vancomycin Trough Rheumatoid Factor (<12.0) IU/mL Cyclic Citrull Peptide (<5.0) U/mL ANNIE Titer ANNIE Titer 2 ANNIE Titer 3 ANNIE Interpretation (Negative) ANCA Immunofluorescen (Negative) ANCA Titer ANCA Pattern SS-A Antibody (<20.0) Units SS-B Antibody (<20.0) Units Scl-70 IgG Ab U Double Strand DNA Ab (<30.0) IU/mL Adenovirus DNA (Negative) COVID-19 Source SARS-CoV-2 (PCR) (Negative) Human Metapneumovir RNA (Negative) Influenza Type A (PCR) (Negative) Influenza Type B (PCR) (Negative) Urine Legionella Ag (Negative) M. pneumoniae Source M. pneumoniae (PCR) Parainfluenza 1 (PCR) (Negative) Parainfluenza 2 (PCR) (Negative) Parainfluenza 3 (PCR) (Negative) Parainfluenza 4 (PCR) (Negative) RSV (PCR) (Negative) Resp Viral Spec Desc Rhinovirus (PCR) (Negative) B-(1,3)-D-Glucan Quant (<60 pg/mL) pg/mL B-(1,3)-D-Glucan Qual (Negative) Add-On Test Request Range/Units 10/26/21 10/26/21 10/26/21 06:26 06:26 06:26 WBC (4.4-10.8) 10^3/uL 9.40 RBC (4.36-5.78) 10^6/uL 3.46 L Hgb (13.5-17.5) g/dL 11.5 L Hct (40.0-50.0) % 34.7 L MCV (80-95) fL 100.3 H MCH (27.0-33.0) pg 33.2 H MCHC (32.0-36.0) % 33.1 RDW (11.8-14.1) % 12.5 Plt Count (130-400) 10^3/uL 116 L MPV (8.0-11.0) fL 10.5 Immature Gran % 1.9 Neutrophils % 90.0 Lymphocytes % 4.4 Monocytes % 3.5 Eosinophils % 0.1 Basophils % 0.1 Nucleated RBC % % 0 Absolute Neutrophils (1.2-6.7) 10^3/uL 8.46 H Absolute Lymphocytes (1.2-3.4) 10^3/uL 0.41 L Absolute Monocytes (0.1-0.8) 10^3/uL 0.33 Absolute Eosinophils (0.0-0.7) 10^3/uL 0.01 Absolute Basophils (0.0-0.2) 10^3/uL 0.01 ESR (0-20) mm/hr Sample Site ABG Sample Site ABG pH (7.35-7.45) ABG pCO2 (35-45) mmHg ABG pO2 (80-105) mmHg ABG HCO3 (22-26) mmol/L ABG Total CO2 (23-27) mmol/L ABG O2 Saturation (95-98) % ABG Base Excess (-2-3) mmol/L VBG Lactate (0.6-1.4) mmol/L Oxygen Liter Flow FiO2 FiO2 (liters per min) L Sodium (136-145) mmol/L Potassium (3.5-5.1) mmol/L Chloride (98-107) mmol/L Carbon Dioxide (21.0-32.0) mmol/L Anion Gap (3-11) mmol/L BUN (7-18) mg/dL Creatinine (0.70-1.30) mg/dL Estimated GFR/1.73 m2 (mL/min/1.73m2) Glucose (74-106) mg/dL Calcium (8.5-10.1) mg/dL Magnesium (1.8-2.4) mg/dL 2.0 Ferritin (22-322) ng/mL Total Bilirubin (0.2-1.0) mg/dL AST (15-37) U/L ALT (16-63) U/L Alkaline Phosphatase (46-116) U/L Troponin I (<or=60) ng/L C-Reactive Protein (0.0-0.3) mg/dL NT-Pro-B Natriuret Pep (<300) pg/mL Total Protein (6.4-8.2) g/dL Albumin (3.4-5.0) g/dL Procalcitonin ng/mL TSH (0.36-3.74) uIU/mL Urine Color (Yellow) Urine Clarity (Clear) Urine pH (5-8) Ur Specific [place] (1.005-1.025) Urine Protein (Negative) mg/dL Urine Ketones (Negative) mg/dL Urine Blood (Negative) Urine Nitrite (Negative) Urine Bilirubin (Negative) Urine Urobilinogen (Up TO 0.2) EU/dL Ur Leukocyte Esterase (Negative) Urine RBC (0-2) HPF Urine WBC (0-5) HPF Ur Epithelial Cells (Negative) HPF Urine Crystals (Negative) HPF Urine Bacteria (Negative) HPF Urine Casts (Negative) LPF Urine Mucus (Negative) Ur Culture Indicated? Urine Glucose (Negative) mg/dL Vancomycin Trough Rheumatoid Factor (<12.0) IU/mL Cyclic Citrull Peptide (<5.0) U/mL ANNIE Titer ANNIE Titer 2 ANNIE Titer 3 ANNIE Interpretation (Negative) ANCA Immunofluorescen (Negative) ANCA Titer ANCA Pattern SS-A Antibody (<20.0) Units SS-B Antibody (<20.0) Units Scl-70 IgG Ab U Double Strand DNA Ab (<30.0) IU/mL Adenovirus DNA (Negative) COVID-19 Source SARS-CoV-2 (PCR) (Negative) Human Metapneumovir RNA (Negative) Influenza Type A (PCR) (Negative) Influenza Type B (PCR) (Negative) Urine Legionella Ag (Negative) M. pneumoniae Source M. pneumoniae (PCR) Parainfluenza 1 (PCR) (Negative) Parainfluenza 2 (PCR) (Negative) Parainfluenza 3 (PCR) (Negative) Parainfluenza 4 (PCR) (Negative) RSV (PCR) (Negative) Resp Viral Spec Desc Rhinovirus (PCR) (Negative) B-(1,3)-D-Glucan Quant (<60 pg/mL) pg/mL B-(1,3)-D-Glucan Qual (Negative) Add-On Test Request DONE Range/Units 10/27/21 10/27/21 10/28/21 06:34 06:34 05:15 WBC (4.4-10.8) 10^3/uL 10.65 RBC (4.36-5.78) 10^6/uL 3.40 L Hgb (13.5-17.5) g/dL 11.4 L Hct (40.0-50.0) % 34.4 L MCV (80-95) fL 101.2 H MCH (27.0-33.0) pg 33.5 H MCHC (32.0-36.0) % 33.1 RDW (11.8-14.1) % 12.6 Plt Count (130-400) 10^3/uL 117 L MPV (8.0-11.0) fL 10.1 Immature Gran % 1.5 Neutrophils % 87.8 Lymphocytes % 5.4 Monocytes % 4.8 Eosinophils % 0.3 Basophils % 0.2 Nucleated RBC % % 0 Absolute Neutrophils (1.2-6.7) 10^3/uL 9.36 H Absolute Lymphocytes (1.2-3.4) 10^3/uL 0.57 L Absolute Monocytes (0.1-0.8) 10^3/uL 0.51 Absolute Eosinophils (0.0-0.7) 10^3/uL 0.03 Absolute Basophils (0.0-0.2) 10^3/uL 0.02 ESR (0-20) mm/hr Sample Site ABG Sample Site ABG pH (7.35-7.45) ABG pCO2 (35-45) mmHg ABG pO2 (80-105) mmHg ABG HCO3 (22-26) mmol/L ABG Total CO2 (23-27) mmol/L ABG O2 Saturation (95-98) % ABG Base Excess (-2-3) mmol/L VBG Lactate (0.6-1.4) mmol/L Oxygen Liter Flow FiO2 FiO2 (liters per min) L Sodium (136-145) mmol/L 138 139 Potassium (3.5-5.1) mmol/L 3.7 4.0 Chloride (98-107) mmol/L 104 105 Carbon Dioxide (21.0-32.0) mmol/L 25.5 27.4 Anion Gap (3-11) mmol/L 8.5 6.6 BUN (7-18) mg/dL 33 H 29 H Creatinine (0.70-1.30) mg/dL 1.5 H 1.5 H Estimated GFR/1.73 m2 (mL/min/1.73m2) 44.92 44.92 Glucose (74-106) mg/dL 121 H 79 Calcium (8.5-10.1) mg/dL 8.1 L 8.7 Magnesium (1.8-2.4) mg/dL 1.9 2.0 Ferritin (22-322) ng/mL Total Bilirubin (0.2-1.0) mg/dL AST (15-37) U/L ALT (16-63) U/L Alkaline Phosphatase (46-116) U/L Troponin I (<or=60) ng/L C-Reactive Protein (0.0-0.3) mg/dL NT-Pro-B Natriuret Pep (<300) pg/mL Total Protein (6.4-8.2) g/dL Albumin (3.4-5.0) g/dL Procalcitonin ng/mL TSH (0.36-3.74) uIU/mL Urine Color (Yellow) Urine Clarity (Clear) Urine pH (5-8) Ur Specific [place] (1.005-1.025) Urine Protein (Negative) mg/dL Urine Ketones (Negative) mg/dL Urine Blood (Negative) Urine Nitrite (Negative) Urine Bilirubin (Negative) Urine Urobilinogen (Up TO 0.2) EU/dL Ur Leukocyte Esterase (Negative) Urine RBC (0-2) HPF Urine WBC (0-5) HPF Ur Epithelial Cells (Negative) HPF Urine Crystals (Negative) HPF Urine Bacteria (Negative) HPF Urine Casts (Negative) LPF Urine Mucus (Negative) Ur Culture Indicated? Urine Glucose (Negative) mg/dL Vancomycin Trough Rheumatoid Factor (<12.0) IU/mL Cyclic Citrull Peptide (<5.0) U/mL ANNIE Titer ANNIE Titer 2 ANNIE Titer 3 ANNIE Interpretation (Negative) ANCA Immunofluorescen (Negative) ANCA Titer ANCA Pattern SS-A Antibody (<20.0) Units SS-B Antibody (<20.0) Units Scl-70 IgG Ab U Double Strand DNA Ab (<30.0) IU/mL Adenovirus DNA (Negative) COVID-19 Source SARS-CoV-2 (PCR) (Negative) Human Metapneumovir RNA (Negative) Influenza Type A (PCR) (Negative) Influenza Type B (PCR) (Negative) Urine Legionella Ag (Negative) M. pneumoniae Source M. pneumoniae (PCR) Parainfluenza 1 (PCR) (Negative) Parainfluenza 2 (PCR) (Negative) Parainfluenza 3 (PCR) (Negative) Parainfluenza 4 (PCR) (Negative) RSV (PCR) (Negative) Resp Viral Spec Desc Rhinovirus (PCR) (Negative) B-(1,3)-D-Glucan Quant (<60 pg/mL) pg/mL B-(1,3)-D-Glucan Qual (Negative) Add-On Test Request Range/Units 10/28/21 10/29/21 10/29/21 05:15 07:00 07:00 WBC (4.4-10.8) 10^3/uL 8.86 7.72 RBC (4.36-5.78) 10^6/uL 3.71 L 3.52 L Hgb (13.5-17.5) g/dL 12.2 L 11.7 L Hct (40.0-50.0) % 38.6 L 35.0 L MCV (80-95) fL 104.0 H 99.4 H MCH (27.0-33.0) pg 32.9 33.2 H MCHC (32.0-36.0) % 31.6 L 33.4 RDW (11.8-14.1) % 12.9 13.1 Plt Count (130-400) 10^3/uL 121 L 118 L MPV (8.0-11.0) fL 10.2 9.6 Immature Gran % 2.0 1.9 Neutrophils % 75.9 81.2 Lymphocytes % 12.0 8.3 Monocytes % 6.2 4.5 Eosinophils % 3.4 4.0 Basophils % 0.5 0.1 Nucleated RBC % % 0 0 Absolute Neutrophils (1.2-6.7) 10^3/uL 6.73 H 6.26 Absolute Lymphocytes (1.2-3.4) 10^3/uL 1.06 L 0.64 L Absolute Monocytes (0.1-0.8) 10^3/uL 0.55 0.35 Absolute Eosinophils (0.0-0.7) 10^3/uL 0.30 0.31 Absolute Basophils (0.0-0.2) 10^3/uL 0.04 0.01 ESR (0-20) mm/hr Sample Site ABG Sample Site ABG pH (7.35-7.45) ABG pCO2 (35-45) mmHg ABG pO2 (80-105) mmHg ABG HCO3 (22-26) mmol/L ABG Total CO2 (23-27) mmol/L ABG O2 Saturation (95-98) % ABG Base Excess (-2-3) mmol/L VBG Lactate (0.6-1.4) mmol/L Oxygen Liter Flow FiO2 FiO2 (liters per min) L Sodium (136-145) mmol/L 139 Potassium (3.5-5.1) mmol/L 3.7 Chloride (98-107) mmol/L 105 Carbon Dioxide (21.0-32.0) mmol/L 24.2 Anion Gap (3-11) mmol/L 9.8 BUN (7-18) mg/dL 26 H Creatinine (0.70-1.30) mg/dL 1.3 Estimated GFR/1.73 m2 (mL/min/1.73m2) 52.98 Glucose (74-106) mg/dL 88 Calcium (8.5-10.1) mg/dL 8.7 Magnesium (1.8-2.4) mg/dL Ferritin (22-322) ng/mL Total Bilirubin (0.2-1.0) mg/dL AST (15-37) U/L ALT (16-63) U/L Alkaline Phosphatase (46-116) U/L Troponin I (<or=60) ng/L C-Reactive Protein (0.0-0.3) mg/dL 11.41 H NT-Pro-B Natriuret Pep (<300) pg/mL Total Protein (6.4-8.2) g/dL Albumin (3.4-5.0) g/dL Procalcitonin ng/mL TSH (0.36-3.74) uIU/mL Urine Color (Yellow) Urine Clarity (Clear) Urine pH (5-8) Ur Specific [place] (1.005-1.025) Urine Protein (Negative) mg/dL Urine Ketones (Negative) mg/dL Urine Blood (Negative) Urine Nitrite (Negative) Urine Bilirubin (Negative) Urine Urobilinogen (Up TO 0.2) EU/dL Ur Leukocyte Esterase (Negative) Urine RBC (0-2) HPF Urine WBC (0-5) HPF Ur Epithelial Cells (Negative) HPF Urine Crystals (Negative) HPF Urine Bacteria (Negative) HPF Urine Casts (Negative) LPF Urine Mucus (Negative) Ur Culture Indicated? Urine Glucose (Negative) mg/dL Vancomycin Trough Rheumatoid Factor (<12.0) IU/mL Cyclic Citrull Peptide (<5.0) U/mL ANNIE Titer ANNIE Titer 2 ANNIE Titer 3 ANNIE Interpretation (Negative) ANCA Immunofluorescen (Negative) ANCA Titer ANCA Pattern SS-A Antibody (<20.0) Units SS-B Antibody (<20.0) Units Scl-70 IgG Ab U Double Strand DNA Ab (<30.0) IU/mL Adenovirus DNA (Negative) COVID-19 Source SARS-CoV-2 (PCR) (Negative) Human Metapneumovir RNA (Negative) Influenza Type A (PCR) (Negative) Influenza Type B (PCR) (Negative) Urine Legionella Ag (Negative) M. pneumoniae Source M. pneumoniae (PCR) Parainfluenza 1 (PCR) (Negative) Parainfluenza 2 (PCR) (Negative) Parainfluenza 3 (PCR) (Negative) Parainfluenza 4 (PCR) (Negative) RSV (PCR) (Negative) Resp Viral Spec Desc Rhinovirus (PCR) (Negative) B-(1,3)-D-Glucan Quant (<60 pg/mL) pg/mL B-(1,3)-D-Glucan Qual (Negative) Add-On Test Request Range/Units 10/29/21 10/30/21 10/30/21 07:00 06:18 09:26 WBC (4.4-10.8) 10^3/uL RBC (4.36-5.78) 10^6/uL Hgb (13.5-17.5) g/dL Hct (40.0-50.0) % MCV (80-95) fL MCH (27.0-33.0) pg MCHC (32.0-36.0) % RDW (11.8-14.1) % Plt Count (130-400) 10^3/uL MPV (8.0-11.0) fL Immature Gran % Neutrophils % Lymphocytes % Monocytes % Eosinophils % Basophils % Nucleated RBC % % Absolute Neutrophils (1.2-6.7) 10^3/uL Absolute Lymphocytes (1.2-3.4) 10^3/uL Absolute Monocytes (0.1-0.8) 10^3/uL Absolute Eosinophils (0.0-0.7) 10^3/uL Absolute Basophils (0.0-0.2) 10^3/uL ESR (0-20) mm/hr Sample Site ABG Sample Site ABG pH (7.35-7.45) ABG pCO2 (35-45) mmHg ABG pO2 (80-105) mmHg ABG HCO3 (22-26) mmol/L ABG Total CO2 (23-27) mmol/L ABG O2 Saturation (95-98) % ABG Base Excess (-2-3) mmol/L VBG Lactate (0.6-1.4) mmol/L 0.7 Oxygen Liter Flow FiO2 FiO2 (liters per min) L Sodium (136-145) mmol/L 139 Potassium (3.5-5.1) mmol/L 3.6 Chloride (98-107) mmol/L 104 Carbon Dioxide (21.0-32.0) mmol/L 25.4 Anion Gap (3-11) mmol/L 9.6 BUN (7-18) mg/dL 25 H Creatinine (0.70-1.30) mg/dL 1.4 H Estimated GFR/1.73 m2 (mL/min/1.73m2) 48.64 Glucose (74-106) mg/dL 113 H Calcium (8.5-10.1) mg/dL 8.9 Magnesium (1.8-2.4) mg/dL 2.0 Ferritin (22-322) ng/mL Total Bilirubin (0.2-1.0) mg/dL AST (15-37) U/L ALT (16-63) U/L Alkaline Phosphatase (46-116) U/L Troponin I (<or=60) ng/L C-Reactive Protein (0.0-0.3) mg/dL NT-Pro-B Natriuret Pep (<300) pg/mL Total Protein (6.4-8.2) g/dL Albumin (3.4-5.0) g/dL Procalcitonin ng/mL 0.1 TSH (0.36-3.74) uIU/mL Urine Color (Yellow) Urine Clarity (Clear) Urine pH (5-8) Ur Specific [place] (1.005-1.025) Urine Protein (Negative) mg/dL Urine Ketones (Negative) mg/dL Urine Blood (Negative) Urine Nitrite (Negative) Urine Bilirubin (Negative) Urine Urobilinogen (Up TO 0.2) EU/dL Ur Leukocyte Esterase (Negative) Urine RBC (0-2) HPF Urine WBC (0-5) HPF Ur Epithelial Cells (Negative) HPF Urine Crystals (Negative) HPF Urine Bacteria (Negative) HPF Urine Casts (Negative) LPF Urine Mucus (Negative) Ur Culture Indicated? Urine Glucose (Negative) mg/dL Vancomycin Trough Rheumatoid Factor (<12.0) IU/mL Cyclic Citrull Peptide (<5.0) U/mL ANNIE Titer ANNIE Titer 2 ANNIE Titer 3 ANNIE Interpretation (Negative) ANCA Immunofluorescen (Negative) ANCA Titer ANCA Pattern SS-A Antibody (<20.0) Units SS-B Antibody (<20.0) Units Scl-70 IgG Ab U Double Strand DNA Ab (<30.0) IU/mL Adenovirus DNA (Negative) COVID-19 Source Nasal/Nares SARS-CoV-2 (PCR) (Negative) Negative Human Metapneumovir RNA (Negative) Influenza Type A (PCR) (Negative) Influenza Type B (PCR) (Negative) Urine Legionella Ag (Negative) M. pneumoniae Source M. pneumoniae (PCR) Parainfluenza 1 (PCR) (Negative) Parainfluenza 2 (PCR) (Negative) Parainfluenza 3 (PCR) (Negative) Parainfluenza 4 (PCR) (Negative) RSV (PCR) (Negative) Resp Viral Spec Desc Rhinovirus (PCR) (Negative) B-(1,3)-D-Glucan Quant (<60 pg/mL) pg/mL B-(1,3)-D-Glucan Qual (Negative) Add-On Test Request Range/Units 10/30/21 10/30/21 10/31/21 12:50 12:50 06:25 WBC (4.4-10.8) 10^3/uL RBC (4.36-5.78) 10^6/uL Hgb (13.5-17.5) g/dL Hct (40.0-50.0) % MCV (80-95) fL MCH (27.0-33.0) pg MCHC (32.0-36.0) % RDW (11.8-14.1) % Plt Count (130-400) 10^3/uL MPV (8.0-11.0) fL Immature Gran % Neutrophils % Lymphocytes % Monocytes % Eosinophils % Basophils % Nucleated RBC % % Absolute Neutrophils (1.2-6.7) 10^3/uL Absolute Lymphocytes (1.2-3.4) 10^3/uL Absolute Monocytes (0.1-0.8) 10^3/uL Absolute Eosinophils (0.0-0.7) 10^3/uL Absolute Basophils (0.0-0.2) 10^3/uL ESR (0-20) mm/hr Sample Site Right Radial ABG Sample Site Cancelled ABG pH (7.35-7.45) 7.50 H ABG pCO2 (35-45) mmHg 30 L ABG pO2 (80-105) mmHg 79 L ABG HCO3 (22-26) mmol/L 22 ABG Total CO2 (23-27) mmol/L 23 ABG O2 Saturation (95-98) % 97 ABG Base Excess (-2-3) mmol/L -1 VBG Lactate (0.6-1.4) mmol/L 1.8 H Oxygen Liter Flow Cancelled FiO2 Cancelled FiO2 (liters per min) L 0.5 Sodium (136-145) mmol/L 140 Potassium (3.5-5.1) mmol/L 3.7 Chloride (98-107) mmol/L 103 Carbon Dioxide (21.0-32.0) mmol/L 28.1 Anion Gap (3-11) mmol/L 8.9 BUN (7-18) mg/dL 32 H Creatinine (0.70-1.30) mg/dL 1.5 H Estimated GFR/1.73 m2 (mL/min/1.73m2) 44.92 Glucose (74-106) mg/dL 110 H Calcium (8.5-10.1) mg/dL 8.7 Magnesium (1.8-2.4) mg/dL Ferritin (22-322) ng/mL Total Bilirubin (0.2-1.0) mg/dL AST (15-37) U/L ALT (16-63) U/L Alkaline Phosphatase (46-116) U/L Troponin I (<or=60) ng/L C-Reactive Protein (0.0-0.3) mg/dL NT-Pro-B Natriuret Pep (<300) pg/mL Total Protein (6.4-8.2) g/dL Albumin (3.4-5.0) g/dL Procalcitonin ng/mL TSH (0.36-3.74) uIU/mL Urine Color (Yellow) Urine Clarity (Clear) Urine pH (5-8) Ur Specific [place] (1.005-1.025) Urine Protein (Negative) mg/dL Urine Ketones (Negative) mg/dL Urine Blood (Negative) Urine Nitrite (Negative) Urine Bilirubin (Negative) Urine Urobilinogen (Up TO 0.2) EU/dL Ur Leukocyte Esterase (Negative) Urine RBC (0-2) HPF Urine WBC (0-5) HPF Ur Epithelial Cells (Negative) HPF Urine Crystals (Negative) HPF Urine Bacteria (Negative) HPF Urine Casts (Negative) LPF Urine Mucus (Negative) Ur Culture Indicated? Urine Glucose (Negative) mg/dL Vancomycin Trough Rheumatoid Factor (<12.0) IU/mL Cyclic Citrull Peptide (<5.0) U/mL ANNIE Titer ANNIE Titer 2 ANNIE Titer 3 ANNIE Interpretation (Negative) ANCA Immunofluorescen (Negative) ANCA Titer ANCA Pattern SS-A Antibody (<20.0) Units SS-B Antibody (<20.0) Units Scl-70 IgG Ab U Double Strand DNA Ab (<30.0) IU/mL Adenovirus DNA (Negative) COVID-19 Source SARS-CoV-2 (PCR) (Negative) Human Metapneumovir RNA (Negative) Influenza Type A (PCR) (Negative) Influenza Type B (PCR) (Negative) Urine Legionella Ag (Negative) M. pneumoniae Source M. pneumoniae (PCR) Parainfluenza 1 (PCR) (Negative) Parainfluenza 2 (PCR) (Negative) Parainfluenza 3 (PCR) (Negative) Parainfluenza 4 (PCR) (Negative) RSV (PCR) (Negative) Resp Viral Spec Desc Rhinovirus (PCR) (Negative) B-(1,3)-D-Glucan Quant (<60 pg/mL) pg/mL B-(1,3)-D-Glucan Qual (Negative) Add-On Test Request Range/Units 10/31/21 11/02/21 11/02/21 06:25 06:45 06:45 WBC (4.4-10.8) 10^3/uL 9.97 RBC (4.36-5.78) 10^6/uL 3.49 L Hgb (13.5-17.5) g/dL 11.7 L Hct (40.0-50.0) % 35.0 L MCV (80-95) fL 100.3 H MCH (27.0-33.0) pg 33.5 H MCHC (32.0-36.0) % 33.4 RDW (11.8-14.1) % 13.0 Plt Count (130-400) 10^3/uL 146 MPV (8.0-11.0) fL 10.0 Immature Gran % 1.9 Neutrophils % 84.7 Lymphocytes % 7.5 Monocytes % 3.5 Eosinophils % 2.3 Basophils % 0.1 Nucleated RBC % % 0 Absolute Neutrophils (1.2-6.7) 10^3/uL 8.44 H Absolute Lymphocytes (1.2-3.4) 10^3/uL 0.75 L Absolute Monocytes (0.1-0.8) 10^3/uL 0.35 Absolute Eosinophils (0.0-0.7) 10^3/uL 0.23 Absolute Basophils (0.0-0.2) 10^3/uL 0.01 ESR (0-20) mm/hr 41 H Sample Site ABG Sample Site ABG pH (7.35-7.45) ABG pCO2 (35-45) mmHg ABG pO2 (80-105) mmHg ABG HCO3 (22-26) mmol/L ABG Total CO2 (23-27) mmol/L ABG O2 Saturation (95-98) % ABG Base Excess (-2-3) mmol/L VBG Lactate (0.6-1.4) mmol/L Oxygen Liter Flow FiO2 FiO2 (liters per min) L Sodium (136-145) mmol/L 140 Potassium (3.5-5.1) mmol/L 3.9 Chloride (98-107) mmol/L 102 Carbon Dioxide (21.0-32.0) mmol/L 29.3 Anion Gap (3-11) mmol/L 8.7 BUN (7-18) mg/dL 31 H Creatinine (0.70-1.30) mg/dL 1.4 H Estimated GFR/1.73 m2 (mL/min/1.73m2) 48.64 Glucose (74-106) mg/dL 101 Calcium (8.5-10.1) mg/dL 9.3 Magnesium (1.8-2.4) mg/dL Ferritin (22-322) ng/mL Total Bilirubin (0.2-1.0) mg/dL AST (15-37) U/L ALT (16-63) U/L Alkaline Phosphatase (46-116) U/L Troponin I (<or=60) ng/L C-Reactive Protein (0.0-0.3) mg/dL > 25.00 H NT-Pro-B Natriuret Pep (<300) pg/mL Total Protein (6.4-8.2) g/dL Albumin (3.4-5.0) g/dL Procalcitonin ng/mL TSH (0.36-3.74) uIU/mL Urine Color (Yellow) Urine Clarity (Clear) Urine pH (5-8) Ur Specific [place] (1.005-1.025) Urine Protein (Negative) mg/dL Urine Ketones (Negative) mg/dL Urine Blood (Negative) Urine Nitrite (Negative) Urine Bilirubin (Negative) Urine Urobilinogen (Up TO 0.2) EU/dL Ur Leukocyte Esterase (Negative) Urine RBC (0-2) HPF Urine WBC (0-5) HPF Ur Epithelial Cells (Negative) HPF Urine Crystals (Negative) HPF Urine Bacteria (Negative) HPF Urine Casts (Negative) LPF Urine Mucus (Negative) Ur Culture Indicated? Urine Glucose (Negative) mg/dL Vancomycin Trough Rheumatoid Factor (<12.0) IU/mL Cyclic Citrull Peptide (<5.0) U/mL ANNIE Titer ANNIE Titer 2 ANNIE Titer 3 ANNIE Interpretation (Negative) ANCA Immunofluorescen (Negative) ANCA Titer ANCA Pattern SS-A Antibody (<20.0) Units SS-B Antibody (<20.0) Units Scl-70 IgG Ab U Double Strand DNA Ab (<30.0) IU/mL Adenovirus DNA (Negative) COVID-19 Source SARS-CoV-2 (PCR) (Negative) Human Metapneumovir RNA (Negative) Influenza Type A (PCR) (Negative) Influenza Type B (PCR) (Negative) Urine Legionella Ag (Negative) M. pneumoniae Source M. pneumoniae (PCR) Parainfluenza 1 (PCR) (Negative) Parainfluenza 2 (PCR) (Negative) Parainfluenza 3 (PCR) (Negative) Parainfluenza 4 (PCR) (Negative) RSV (PCR) (Negative) Resp Viral Spec Desc Rhinovirus (PCR) (Negative) B-(1,3)-D-Glucan Quant (<60 pg/mL) pg/mL B-(1,3)-D-Glucan Qual (Negative) Add-On Test Request Range/Units 11/02/21 11/02/21 11/02/21 06:45 06:45 06:45 WBC (4.4-10.8) 10^3/uL 7.69 RBC (4.36-5.78) 10^6/uL 3.59 L Hgb (13.5-17.5) g/dL 11.8 L Hct (40.0-50.0) % 36.7 L MCV (80-95) fL 102.2 H MCH (27.0-33.0) pg 32.9 MCHC (32.0-36.0) % 32.2 RDW (11.8-14.1) % 12.9 Plt Count (130-400) 10^3/uL 151 MPV (8.0-11.0) fL 9.8 Immature Gran % 1.6 Neutrophils % 78.6 Lymphocytes % 12.2 Monocytes % 3.4 Eosinophils % 3.9 Basophils % 0.3 Nucleated RBC % % 0 Absolute Neutrophils (1.2-6.7) 10^3/uL 6.05 Absolute Lymphocytes (1.2-3.4) 10^3/uL 0.94 L Absolute Monocytes (0.1-0.8) 10^3/uL 0.26 Absolute Eosinophils (0.0-0.7) 10^3/uL 0.30 Absolute Basophils (0.0-0.2) 10^3/uL 0.02 ESR (0-20) mm/hr Sample Site ABG Sample Site ABG pH (7.35-7.45) ABG pCO2 (35-45) mmHg ABG pO2 (80-105) mmHg ABG HCO3 (22-26) mmol/L ABG Total CO2 (23-27) mmol/L ABG O2 Saturation (95-98) % ABG Base Excess (-2-3) mmol/L VBG Lactate (0.6-1.4) mmol/L Oxygen Liter Flow FiO2 FiO2 (liters per min) L Sodium (136-145) mmol/L Potassium (3.5-5.1) mmol/L Chloride (98-107) mmol/L Carbon Dioxide (21.0-32.0) mmol/L Anion Gap (3-11) mmol/L BUN (7-18) mg/dL Creatinine (0.70-1.30) mg/dL Estimated GFR/1.73 m2 (mL/min/1.73m2) Glucose (74-106) mg/dL Calcium (8.5-10.1) mg/dL Magnesium (1.8-2.4) mg/dL Ferritin (22-322) ng/mL 538 H Total Bilirubin (0.2-1.0) mg/dL AST (15-37) U/L ALT (16-63) U/L Alkaline Phosphatase (46-116) U/L Troponin I (<or=60) ng/L C-Reactive Protein (0.0-0.3) mg/dL NT-Pro-B Natriuret Pep (<300) pg/mL Total Protein (6.4-8.2) g/dL Albumin (3.4-5.0) g/dL Procalcitonin ng/mL TSH (0.36-3.74) uIU/mL Urine Color (Yellow) Urine Clarity (Clear) Urine pH (5-8) Ur Specific [place] (1.005-1.025) Urine Protein (Negative) mg/dL Urine Ketones (Negative) mg/dL Urine Blood (Negative) Urine Nitrite (Negative) Urine Bilirubin (Negative) Urine Urobilinogen (Up TO 0.2) EU/dL Ur Leukocyte Esterase (Negative) Urine RBC (0-2) HPF Urine WBC (0-5) HPF Ur Epithelial Cells (Negative) HPF Urine Crystals (Negative) HPF Urine Bacteria (Negative) HPF Urine Casts (Negative) LPF Urine Mucus (Negative) Ur Culture Indicated? Urine Glucose (Negative) mg/dL Vancomycin Trough Rheumatoid Factor (<12.0) IU/mL Cyclic Citrull Peptide (<5.0) U/mL ANNIE Titer ANNIE Titer 2 ANNIE Titer 3 ANNIE Interpretation (Negative) ANCA Immunofluorescen (Negative) ANCA Titer ANCA Pattern SS-A Antibody (<20.0) Units SS-B Antibody (<20.0) Units Scl-70 IgG Ab U Double Strand DNA Ab (<30.0) IU/mL Adenovirus DNA (Negative) COVID-19 Source SARS-CoV-2 (PCR) (Negative) Human Metapneumovir RNA (Negative) Influenza Type A (PCR) (Negative) Influenza Type B (PCR) (Negative) Urine Legionella Ag (Negative) M. pneumoniae Source M. pneumoniae (PCR) Parainfluenza 1 (PCR) (Negative) Parainfluenza 2 (PCR) (Negative) Parainfluenza 3 (PCR) (Negative) Parainfluenza 4 (PCR) (Negative) RSV (PCR) (Negative) Resp Viral Spec Desc Rhinovirus (PCR) (Negative) B-(1,3)-D-Glucan Quant (<60 pg/mL) pg/mL B-(1,3)-D-Glucan Qual (Negative) Add-On Test Request done Range/Units 11/02/21 11/02/21 11/02/21 06:45 11:00 15:30 WBC (4.4-10.8) 10^3/uL RBC (4.36-5.78) 10^6/uL Hgb (13.5-17.5) g/dL Hct (40.0-50.0) % MCV (80-95) fL MCH (27.0-33.0) pg MCHC (32.0-36.0) % RDW (11.8-14.1) % Plt Count (130-400) 10^3/uL MPV (8.0-11.0) fL Immature Gran % Neutrophils % Lymphocytes % Monocytes % Eosinophils % Basophils % Nucleated RBC % % Absolute Neutrophils (1.2-6.7) 10^3/uL Absolute Lymphocytes (1.2-3.4) 10^3/uL Absolute Monocytes (0.1-0.8) 10^3/uL Absolute Eosinophils (0.0-0.7) 10^3/uL Absolute Basophils (0.0-0.2) 10^3/uL ESR (0-20) mm/hr Sample Site ABG Sample Site ABG pH (7.35-7.45) ABG pCO2 (35-45) mmHg ABG pO2 (80-105) mmHg ABG HCO3 (22-26) mmol/L ABG Total CO2 (23-27) mmol/L ABG O2 Saturation (95-98) % ABG Base Excess (-2-3) mmol/L VBG Lactate (0.6-1.4) mmol/L Oxygen Liter Flow FiO2 FiO2 (liters per min) L Sodium (136-145) mmol/L Potassium (3.5-5.1) mmol/L Chloride (98-107) mmol/L Carbon Dioxide (21.0-32.0) mmol/L Anion Gap (3-11) mmol/L BUN (7-18) mg/dL Creatinine (0.70-1.30) mg/dL Estimated GFR/1.73 m2 (mL/min/1.73m2) Glucose (74-106) mg/dL Calcium (8.5-10.1) mg/dL Magnesium (1.8-2.4) mg/dL Ferritin (22-322) ng/mL Total Bilirubin (0.2-1.0) mg/dL AST (15-37) U/L ALT (16-63) U/L Alkaline Phosphatase (46-116) U/L Troponin I (<or=60) ng/L C-Reactive Protein (0.0-0.3) mg/dL NT-Pro-B Natriuret Pep (<300) pg/mL 673 H Total Protein (6.4-8.2) g/dL Albumin (3.4-5.0) g/dL Procalcitonin ng/mL TSH (0.36-3.74) uIU/mL Urine Color (Yellow) Urine Clarity (Clear) Urine pH (5-8) Ur Specific [place] (1.005-1.025) Urine Protein (Negative) mg/dL Urine Ketones (Negative) mg/dL Urine Blood (Negative) Urine Nitrite (Negative) Urine Bilirubin (Negative) Urine Urobilinogen (Up TO 0.2) EU/dL Ur Leukocyte Esterase (Negative) Urine RBC (0-2) HPF Urine WBC (0-5) HPF Ur Epithelial Cells (Negative) HPF Urine Crystals (Negative) HPF Urine Bacteria (Negative) HPF Urine Casts (Negative) LPF Urine Mucus (Negative) Ur Culture Indicated? Urine Glucose (Negative) mg/dL Vancomycin Trough Rheumatoid Factor (<12.0) IU/mL Cyclic Citrull Peptide (<5.0) U/mL ANNIE Titer ANNIE Titer 2 ANNIE Titer 3 ANNIE Interpretation (Negative) ANCA Immunofluorescen (Negative) ANCA Titer ANCA Pattern SS-A Antibody (<20.0) Units SS-B Antibody (<20.0) Units Scl-70 IgG Ab U Double Strand DNA Ab (<30.0) IU/mL Adenovirus DNA (Negative) COVID-19 Source Nasopharynx SARS-CoV-2 (PCR) (Negative) Negative Human Metapneumovir RNA (Negative) Influenza Type A (PCR) (Negative) Influenza Type B (PCR) (Negative) Urine Legionella Ag (Negative) M. pneumoniae Source Cancelled M. pneumoniae (PCR) Cancelled Parainfluenza 1 (PCR) (Negative) Parainfluenza 2 (PCR) (Negative) Parainfluenza 3 (PCR) (Negative) Parainfluenza 4 (PCR) (Negative) RSV (PCR) (Negative) Resp Viral Spec Desc Rhinovirus (PCR) (Negative) B-(1,3)-D-Glucan Quant (<60 pg/mL) pg/mL B-(1,3)-D-Glucan Qual (Negative) Add-On Test Request Range/Units 11/02/21 11/03/21 11/03/21 21:09 06:30 06:30 WBC (4.4-10.8) 10^3/uL 10.34 D RBC (4.36-5.78) 10^6/uL 3.37 L Hgb (13.5-17.5) g/dL 11.0 L Hct (40.0-50.0) % 33.6 L MCV (80-95) fL 99.7 H MCH (27.0-33.0) pg 32.6 MCHC (32.0-36.0) % 32.7 RDW (11.8-14.1) % 13.0 Plt Count (130-400) 10^3/uL 146 MPV (8.0-11.0) fL 10.2 Immature Gran % 1.1 Neutrophils % 94.4 Lymphocytes % 3.3 Monocytes % 1.0 Eosinophils % 0.0 Basophils % 0.2 Nucleated RBC % % 0 Absolute Neutrophils (1.2-6.7) 10^3/uL 9.76 H Absolute Lymphocytes (1.2-3.4) 10^3/uL 0.34 L Absolute Monocytes (0.1-0.8) 10^3/uL 0.10 Absolute Eosinophils (0.0-0.7) 10^3/uL 0.00 Absolute Basophils (0.0-0.2) 10^3/uL 0.02 ESR (0-20) mm/hr Sample Site ABG Sample Site ABG pH (7.35-7.45) ABG pCO2 (35-45) mmHg ABG pO2 (80-105) mmHg ABG HCO3 (22-26) mmol/L ABG Total CO2 (23-27) mmol/L ABG O2 Saturation (95-98) % ABG Base Excess (-2-3) mmol/L VBG Lactate (0.6-1.4) mmol/L Oxygen Liter Flow FiO2 FiO2 (liters per min) L Sodium (136-145) mmol/L 140 Potassium (3.5-5.1) mmol/L 3.9 Chloride (98-107) mmol/L 102 Carbon Dioxide (21.0-32.0) mmol/L 25.8 Anion Gap (3-11) mmol/L 12.2 H BUN (7-18) mg/dL 33 H Creatinine (0.70-1.30) mg/dL 1.6 H Estimated GFR/1.73 m2 (mL/min/1.73m2) 41.69 Glucose (74-106) mg/dL 197 H D Calcium (8.5-10.1) mg/dL 8.8 Magnesium (1.8-2.4) mg/dL Ferritin (22-322) ng/mL Total Bilirubin (0.2-1.0) mg/dL AST (15-37) U/L ALT (16-63) U/L Alkaline Phosphatase (46-116) U/L Troponin I (<or=60) ng/L C-Reactive Protein (0.0-0.3) mg/dL NT-Pro-B Natriuret Pep (<300) pg/mL Total Protein (6.4-8.2) g/dL Albumin (3.4-5.0) g/dL Procalcitonin ng/mL TSH (0.36-3.74) uIU/mL 0.50 Urine Color (Yellow) Urine Clarity (Clear) Urine pH (5-8) Ur Specific [place] (1.005-1.025) Urine Protein (Negative) mg/dL Urine Ketones (Negative) mg/dL Urine Blood (Negative) Urine Nitrite (Negative) Urine Bilirubin (Negative) Urine Urobilinogen (Up TO 0.2) EU/dL Ur Leukocyte Esterase (Negative) Urine RBC (0-2) HPF Urine WBC (0-5) HPF Ur Epithelial Cells (Negative) HPF Urine Crystals (Negative) HPF Urine Bacteria (Negative) HPF Urine Casts (Negative) LPF Urine Mucus (Negative) Ur Culture Indicated? Urine Glucose (Negative) mg/dL Vancomycin Trough Rheumatoid Factor (<12.0) IU/mL Cyclic Citrull Peptide (<5.0) U/mL ANNIE Titer ANNIE Titer 2 ANNIE Titer 3 ANNIE Interpretation (Negative) ANCA Immunofluorescen (Negative) ANCA Titer ANCA Pattern SS-A Antibody (<20.0) Units SS-B Antibody (<20.0) Units Scl-70 IgG Ab U Double Strand DNA Ab (<30.0) IU/mL Adenovirus DNA (Negative) Negative COVID-19 Source SARS-CoV-2 (PCR) (Negative) Human Metapneumovir RNA (Negative) Negative Influenza Type A (PCR) (Negative) Influenza Type B (PCR) (Negative) Urine Legionella Ag (Negative) M. pneumoniae Source M. pneumoniae (PCR) Parainfluenza 1 (PCR) (Negative) Negative Parainfluenza 2 (PCR) (Negative) Negative Parainfluenza 3 (PCR) (Negative) Negative Parainfluenza 4 (PCR) (Negative) Negative RSV (PCR) (Negative) Resp Viral Spec Desc Not Applicable Rhinovirus (PCR) (Negative) Negative B-(1,3)-D-Glucan Quant (<60 pg/mL) pg/mL B-(1,3)-D-Glucan Qual (Negative) Add-On Test Request Range/Units 11/04/21 11/04/21 11/04/21 06:40 06:40 19:35 WBC (4.4-10.8) 10^3/uL 14.11 H D RBC (4.36-5.78) 10^6/uL 3.38 L Hgb (13.5-17.5) g/dL 11.1 L Hct (40.0-50.0) % 33.6 L MCV (80-95) fL 99.4 H MCH (27.0-33.0) pg 32.8 MCHC (32.0-36.0) % 33.0 RDW (11.8-14.1) % 13.0 Plt Count (130-400) 10^3/uL 179 MPV (8.0-11.0) fL 10.8 Immature Gran % 0.9 Neutrophils % 93.0 Lymphocytes % 2.7 Monocytes % 3.3 Eosinophils % 0.0 Basophils % 0.1 Nucleated RBC % % 0 Absolute Neutrophils (1.2-6.7) 10^3/uL 13.12 H Absolute Lymphocytes (1.2-3.4) 10^3/uL 0.38 L Absolute Monocytes (0.1-0.8) 10^3/uL 0.47 Absolute Eosinophils (0.0-0.7) 10^3/uL 0.00 Absolute Basophils (0.0-0.2) 10^3/uL 0.01 ESR (0-20) mm/hr Sample Site ABG Sample Site ABG pH (7.35-7.45) ABG pCO2 (35-45) mmHg ABG pO2 (80-105) mmHg ABG HCO3 (22-26) mmol/L ABG Total CO2 (23-27) mmol/L ABG O2 Saturation (95-98) % ABG Base Excess (-2-3) mmol/L VBG Lactate (0.6-1.4) mmol/L Oxygen Liter Flow FiO2 FiO2 (liters per min) L Sodium (136-145) mmol/L 142 Potassium (3.5-5.1) mmol/L 3.4 L Chloride (98-107) mmol/L 104 Carbon Dioxide (21.0-32.0) mmol/L 24.5 Anion Gap (3-11) mmol/L 13.5 H BUN (7-18) mg/dL 34 H Creatinine (0.70-1.30) mg/dL 1.7 H Estimated GFR/1.73 m2 (mL/min/1.73m2) 38.88 Glucose (74-106) mg/dL 203 H Calcium (8.5-10.1) mg/dL 9.2 Magnesium (1.8-2.4) mg/dL Ferritin (22-322) ng/mL Total Bilirubin (0.2-1.0) mg/dL AST (15-37) U/L ALT (16-63) U/L Alkaline Phosphatase (46-116) U/L Troponin I (<or=60) ng/L C-Reactive Protein (0.0-0.3) mg/dL NT-Pro-B Natriuret Pep (<300) pg/mL Total Protein (6.4-8.2) g/dL Albumin (3.4-5.0) g/dL Procalcitonin ng/mL TSH (0.36-3.74) uIU/mL Urine Color (Yellow) Urine Clarity (Clear) Urine pH (5-8) Ur Specific [place] (1.005-1.025) Urine Protein (Negative) mg/dL Urine Ketones (Negative) mg/dL Urine Blood (Negative) Urine Nitrite (Negative) Urine Bilirubin (Negative) Urine Urobilinogen (Up TO 0.2) EU/dL Ur Leukocyte Esterase (Negative) Urine RBC (0-2) HPF Urine WBC (0-5) HPF Ur Epithelial Cells (Negative) HPF Urine Crystals (Negative) HPF Urine Bacteria (Negative) HPF Urine Casts (Negative) LPF Urine Mucus (Negative) Ur Culture Indicated? Urine Glucose (Negative) mg/dL Vancomycin Trough Rheumatoid Factor (<12.0) IU/mL Cyclic Citrull Peptide (<5.0) U/mL ANNIE Titer ANNIE Titer 2 ANNIE Titer 3 ANNIE Interpretation (Negative) ANCA Immunofluorescen (Negative) ANCA Titer ANCA Pattern SS-A Antibody (<20.0) Units SS-B Antibody (<20.0) Units Scl-70 IgG Ab U Double Strand DNA Ab (<30.0) IU/mL Adenovirus DNA (Negative) COVID-19 Source SARS-CoV-2 (PCR) (Negative) Human Metapneumovir RNA (Negative) Influenza Type A (PCR) (Negative) Influenza Type B (PCR) (Negative) Urine Legionella Ag (Negative) Negative M. pneumoniae Source M. pneumoniae (PCR) Parainfluenza 1 (PCR) (Negative) Parainfluenza 2 (PCR) (Negative) Parainfluenza 3 (PCR) (Negative) Parainfluenza 4 (PCR) (Negative) RSV (PCR) (Negative) Resp Viral Spec Desc Rhinovirus (PCR) (Negative) B-(1,3)-D-Glucan Quant (<60 pg/mL) pg/mL B-(1,3)-D-Glucan Qual (Negative) Add-On Test Request Range/Units 11/04/21 11/05/21 11/05/21 19:35 07:50 07:50 WBC (4.4-10.8) 10^3/uL RBC (4.36-5.78) 10^6/uL Hgb (13.5-17.5) g/dL Hct (40.0-50.0) % MCV (80-95) fL MCH (27.0-33.0) pg MCHC (32.0-36.0) % RDW (11.8-14.1) % Plt Count (130-400) 10^3/uL MPV (8.0-11.0) fL Immature Gran % Neutrophils % Lymphocytes % Monocytes % Eosinophils % Basophils % Nucleated RBC % % Absolute Neutrophils (1.2-6.7) 10^3/uL Absolute Lymphocytes (1.2-3.4) 10^3/uL Absolute Monocytes (0.1-0.8) 10^3/uL Absolute Eosinophils (0.0-0.7) 10^3/uL Absolute Basophils (0.0-0.2) 10^3/uL ESR (0-20) mm/hr Sample Site ABG Sample Site ABG pH (7.35-7.45) ABG pCO2 (35-45) mmHg ABG pO2 (80-105) mmHg ABG HCO3 (22-26) mmol/L ABG Total CO2 (23-27) mmol/L ABG O2 Saturation (95-98) % ABG Base Excess (-2-3) mmol/L VBG Lactate (0.6-1.4) mmol/L Oxygen Liter Flow FiO2 FiO2 (liters per min) L Sodium (136-145) mmol/L 141 Potassium (3.5-5.1) mmol/L 3.4 L Chloride (98-107) mmol/L 103 Carbon Dioxide (21.0-32.0) mmol/L 23.6 Anion Gap (3-11) mmol/L 14.4 H BUN (7-18) mg/dL 41 H Creatinine (0.70-1.30) mg/dL 2.0 H Estimated GFR/1.73 m2 (mL/min/1.73m2) 32.23 Glucose (74-106) mg/dL 180 H Calcium (8.5-10.1) mg/dL 9.5 Magnesium (1.8-2.4) mg/dL Ferritin (22-322) ng/mL Total Bilirubin (0.2-1.0) mg/dL AST (15-37) U/L ALT (16-63) U/L Alkaline Phosphatase (46-116) U/L Troponin I (<or=60) ng/L C-Reactive Protein (0.0-0.3) mg/dL NT-Pro-B Natriuret Pep (<300) pg/mL Total Protein (6.4-8.2) g/dL Albumin (3.4-5.0) g/dL Procalcitonin ng/mL TSH (0.36-3.74) uIU/mL Urine Color (Yellow) Yellow Urine Clarity (Clear) Sl Cloudy Urine pH (5-8) 5.5 Ur Specific [place] (1.005-1.025) >= 1.030 H Urine Protein (Negative) mg/dL 30 H Urine Ketones (Negative) mg/dL Negative Urine Blood (Negative) Large H Urine Nitrite (Negative) Negative Urine Bilirubin (Negative) Negative Urine Urobilinogen (Up TO 0.2) EU/dL 0.2 Ur Leukocyte Esterase (Negative) Negative Urine RBC (0-2) HPF >50 H Urine WBC (0-5) HPF 0-2 Ur Epithelial Cells (Negative) HPF Negative Urine Crystals (Negative) HPF Moderate Uric Acid Urine Bacteria (Negative) HPF Few Urine Casts (Negative) LPF Urine Mucus (Negative) Negative Ur Culture Indicated? No Urine Glucose (Negative) mg/dL Negative Vancomycin Trough Rheumatoid Factor (<12.0) IU/mL Cyclic Citrull Peptide (<5.0) U/mL ANNIE Titer ANNIE Titer 2 ANNIE Titer 3 ANNIE Interpretation (Negative) ANCA Immunofluorescen (Negative) ANCA Titer ANCA Pattern SS-A Antibody (<20.0) Units 1.0 SS-B Antibody (<20.0) Units Scl-70 IgG Ab U Double Strand DNA Ab (<30.0) IU/mL <12.3 Adenovirus DNA (Negative) COVID-19 Source SARS-CoV-2 (PCR) (Negative) Human Metapneumovir RNA (Negative) Influenza Type A (PCR) (Negative) Influenza Type B (PCR) (Negative) Urine Legionella Ag (Negative) M. pneumoniae Source M. pneumoniae (PCR) Parainfluenza 1 (PCR) (Negative) Parainfluenza 2 (PCR) (Negative) Parainfluenza 3 (PCR) (Negative) Parainfluenza 4 (PCR) (Negative) RSV (PCR) (Negative) Resp Viral Spec Desc Rhinovirus (PCR) (Negative) B-(1,3)-D-Glucan Quant (<60 pg/mL) pg/mL B-(1,3)-D-Glucan Qual (Negative) Add-On Test Request Range/Units 11/05/21 11/05/21 11/05/21 07:50 07:50 08:35 WBC (4.4-10.8) 10^3/uL RBC (4.36-5.78) 10^6/uL Hgb (13.5-17.5) g/dL Hct (40.0-50.0) % MCV (80-95) fL MCH (27.0-33.0) pg MCHC (32.0-36.0) % RDW (11.8-14.1) % Plt Count (130-400) 10^3/uL MPV (8.0-11.0) fL Immature Gran % Neutrophils % Lymphocytes % Monocytes % Eosinophils % Basophils % Nucleated RBC % % Absolute Neutrophils (1.2-6.7) 10^3/uL Absolute Lymphocytes (1.2-3.4) 10^3/uL Absolute Monocytes (0.1-0.8) 10^3/uL Absolute Eosinophils (0.0-0.7) 10^3/uL Absolute Basophils (0.0-0.2) 10^3/uL ESR (0-20) mm/hr 29 H Sample Site ABG Sample Site ABG pH (7.35-7.45) ABG pCO2 (35-45) mmHg ABG pO2 (80-105) mmHg ABG HCO3 (22-26) mmol/L ABG Total CO2 (23-27) mmol/L ABG O2 Saturation (95-98) % ABG Base Excess (-2-3) mmol/L VBG Lactate (0.6-1.4) mmol/L Oxygen Liter Flow FiO2 FiO2 (liters per min) L Sodium (136-145) mmol/L Potassium (3.5-5.1) mmol/L Chloride (98-107) mmol/L Carbon Dioxide (21.0-32.0) mmol/L Anion Gap (3-11) mmol/L BUN (7-18) mg/dL Creatinine (0.70-1.30) mg/dL Estimated GFR/1.73 m2 (mL/min/1.73m2) Glucose (74-106) mg/dL Calcium (8.5-10.1) mg/dL Magnesium (1.8-2.4) mg/dL Ferritin (22-322) ng/mL Total Bilirubin (0.2-1.0) mg/dL AST (15-37) U/L ALT (16-63) U/L Alkaline Phosphatase (46-116) U/L Troponin I (<or=60) ng/L C-Reactive Protein (0.0-0.3) mg/dL 9.36 H NT-Pro-B Natriuret Pep (<300) pg/mL Total Protein (6.4-8.2) g/dL Albumin (3.4-5.0) g/dL Procalcitonin ng/mL TSH (0.36-3.74) uIU/mL Urine Color (Yellow) Urine Clarity (Clear) Urine pH (5-8) Ur Specific [place] (1.005-1.025) Urine Protein (Negative) mg/dL Urine Ketones (Negative) mg/dL Urine Blood (Negative) Urine Nitrite (Negative) Urine Bilirubin (Negative) Urine Urobilinogen (Up TO 0.2) EU/dL Ur Leukocyte Esterase (Negative) Urine RBC (0-2) HPF Urine WBC (0-5) HPF Ur Epithelial Cells (Negative) HPF Urine Crystals (Negative) HPF Urine Bacteria (Negative) HPF Urine Casts (Negative) LPF Urine Mucus (Negative) Ur Culture Indicated? Urine Glucose (Negative) mg/dL Vancomycin Trough Rheumatoid Factor (<12.0) IU/mL 9.3 Cyclic Citrull Peptide (<5.0) U/mL ANNIE Titer ANNIE Titer 2 ANNIE Titer 3 ANNIE Interpretation (Negative) ANCA Immunofluorescen (Negative) ANCA Titer ANCA Pattern SS-A Antibody (<20.0) Units SS-B Antibody (<20.0) Units 0.8 Scl-70 IgG Ab U <0.2 Double Strand DNA Ab (<30.0) IU/mL Adenovirus DNA (Negative) COVID-19 Source SARS-CoV-2 (PCR) (Negative) Human Metapneumovir RNA (Negative) Influenza Type A (PCR) (Negative) Influenza Type B (PCR) (Negative) Urine Legionella Ag (Negative) M. pneumoniae Source M. pneumoniae (PCR) Parainfluenza 1 (PCR) (Negative) Parainfluenza 2 (PCR) (Negative) Parainfluenza 3 (PCR) (Negative) Parainfluenza 4 (PCR) (Negative) RSV (PCR) (Negative) Resp Viral Spec Desc Rhinovirus (PCR) (Negative) B-(1,3)-D-Glucan Quant (<60 pg/mL) pg/mL B-(1,3)-D-Glucan Qual (Negative) Add-On Test Request Range/Units 11/05/21 11/05/21 11/05/21 08:35 08:35 13:00 WBC (4.4-10.8) 10^3/uL RBC (4.36-5.78) 10^6/uL Hgb (13.5-17.5) g/dL Hct (40.0-50.0) % MCV (80-95) fL MCH (27.0-33.0) pg MCHC (32.0-36.0) % RDW (11.8-14.1) % Plt Count (130-400) 10^3/uL MPV (8.0-11.0) fL Immature Gran % Neutrophils % Lymphocytes % Monocytes % Eosinophils % Basophils % Nucleated RBC % % Absolute Neutrophils (1.2-6.7) 10^3/uL Absolute Lymphocytes (1.2-3.4) 10^3/uL Absolute Monocytes (0.1-0.8) 10^3/uL Absolute Eosinophils (0.0-0.7) 10^3/uL Absolute Basophils (0.0-0.2) 10^3/uL ESR (0-20) mm/hr Sample Site ABG Sample Site ABG pH (7.35-7.45) ABG pCO2 (35-45) mmHg ABG pO2 (80-105) mmHg ABG HCO3 (22-26) mmol/L ABG Total CO2 (23-27) mmol/L ABG O2 Saturation (95-98) % ABG Base Excess (-2-3) mmol/L VBG Lactate (0.6-1.4) mmol/L Oxygen Liter Flow FiO2 FiO2 (liters per min) L Sodium (136-145) mmol/L Potassium (3.5-5.1) mmol/L Chloride (98-107) mmol/L Carbon Dioxide (21.0-32.0) mmol/L Anion Gap (3-11) mmol/L BUN (7-18) mg/dL Creatinine (0.70-1.30) mg/dL Estimated GFR/1.73 m2 (mL/min/1.73m2) Glucose (74-106) mg/dL Calcium (8.5-10.1) mg/dL Magnesium (1.8-2.4) mg/dL Ferritin (22-322) ng/mL Total Bilirubin (0.2-1.0) mg/dL AST (15-37) U/L ALT (16-63) U/L Alkaline Phosphatase (46-116) U/L Troponin I (<or=60) ng/L C-Reactive Protein (0.0-0.3) mg/dL NT-Pro-B Natriuret Pep (<300) pg/mL Total Protein (6.4-8.2) g/dL Albumin (3.4-5.0) g/dL Procalcitonin ng/mL TSH (0.36-3.74) uIU/mL Urine Color (Yellow) Urine Clarity (Clear) Urine pH (5-8) Ur Specific [place] (1.005-1.025) Urine Protein (Negative) mg/dL Urine Ketones (Negative) mg/dL Urine Blood (Negative) Urine Nitrite (Negative) Urine Bilirubin (Negative) Urine Urobilinogen (Up TO 0.2) EU/dL Ur Leukocyte Esterase (Negative) Urine RBC (0-2) HPF Urine WBC (0-5) HPF Ur Epithelial Cells (Negative) HPF Urine Crystals (Negative) HPF Urine Bacteria (Negative) HPF Urine Casts (Negative) LPF Urine Mucus (Negative) Ur Culture Indicated? Urine Glucose (Negative) mg/dL Vancomycin Trough Cancelled Rheumatoid Factor (<12.0) IU/mL Cyclic Citrull Peptide (<5.0) U/mL <2.5 ANNIE Titer 1:160 Speckled ANNIE Titer 2 Not Applicable ANNIE Titer 3 Not Applicable ANNIE Interpretation (Negative) Positive A ANCA Immunofluorescen (Negative) Negative ANCA Titer Not Applicable ANCA Pattern Not Applicable SS-A Antibody (<20.0) Units SS-B Antibody (<20.0) Units Scl-70 IgG Ab U Double Strand DNA Ab (<30.0) IU/mL Adenovirus DNA (Negative) COVID-19 Source SARS-CoV-2 (PCR) (Negative) Human Metapneumovir RNA (Negative) Influenza Type A (PCR) (Negative) Influenza Type B (PCR) (Negative) Urine Legionella Ag (Negative) M. pneumoniae Source M. pneumoniae (PCR) Parainfluenza 1 (PCR) (Negative) Parainfluenza 2 (PCR) (Negative) Parainfluenza 3 (PCR) (Negative) Parainfluenza 4 (PCR) (Negative) RSV (PCR) (Negative) Resp Viral Spec Desc Rhinovirus (PCR) (Negative) B-(1,3)-D-Glucan Quant (<60 pg/mL) pg/mL 149 A B-(1,3)-D-Glucan Qual (Negative) Positive A Add-On Test Request Range/Units 11/06/21 11/06/21 06:21 06:21 WBC (4.4-10.8) 10^3/uL 10.75 RBC (4.36-5.78) 10^6/uL 3.44 L Hgb (13.5-17.5) g/dL 11.3 L Hct (40.0-50.0) % 34.4 L MCV (80-95) fL 100.0 H MCH (27.0-33.0) pg 32.8 MCHC (32.0-36.0) % 32.8 RDW (11.8-14.1) % 13.2 Plt Count (130-400) 10^3/uL 239 MPV (8.0-11.0) fL 10.5 Immature Gran % 3.1 Neutrophils % 85.9 Lymphocytes % 4.8 Monocytes % 5.9 Eosinophils % 0.1 Basophils % 0.2 Nucleated RBC % % 0 Absolute Neutrophils (1.2-6.7) 10^3/uL 9.24 H Absolute Lymphocytes (1.2-3.4) 10^3/uL 0.52 L Absolute Monocytes (0.1-0.8) 10^3/uL 0.63 Absolute Eosinophils (0.0-0.7) 10^3/uL 0.01 Absolute Basophils (0.0-0.2) 10^3/uL 0.02 ESR (0-20) mm/hr Sample Site ABG Sample Site ABG pH (7.35-7.45) ABG pCO2 (35-45) mmHg ABG pO2 (80-105) mmHg ABG HCO3 (22-26) mmol/L ABG Total CO2 (23-27) mmol/L ABG O2 Saturation (95-98) % ABG Base Excess (-2-3) mmol/L VBG Lactate (0.6-1.4) mmol/L Oxygen Liter Flow FiO2 FiO2 (liters per min) L Sodium (136-145) mmol/L 142 Potassium (3.5-5.1) mmol/L 3.3 L Chloride (98-107) mmol/L 106 Carbon Dioxide (21.0-32.0) mmol/L 24.3 Anion Gap (3-11) mmol/L 11.7 H BUN (7-18) mg/dL 40 H Creatinine (0.70-1.30) mg/dL 1.6 H Estimated GFR/1.73 m2 (mL/min/1.73m2) 41.69 Glucose (74-106) mg/dL 147 H Calcium (8.5-10.1) mg/dL 9.3 Magnesium (1.8-2.4) mg/dL Ferritin (22-322) ng/mL Total Bilirubin (0.2-1.0) mg/dL AST (15-37) U/L ALT (16-63) U/L Alkaline Phosphatase (46-116) U/L Troponin I (<or=60) ng/L C-Reactive Protein (0.0-0.3) mg/dL NT-Pro-B Natriuret Pep (<300) pg/mL Total Protein (6.4-8.2) g/dL Albumin (3.4-5.0) g/dL Procalcitonin ng/mL TSH (0.36-3.74) uIU/mL Urine Color (Yellow) Urine Clarity (Clear) Urine pH (5-8) Ur Specific [place] (1.005-1.025) Urine Protein (Negative) mg/dL Urine Ketones (Negative) mg/dL Urine Blood (Negative) Urine Nitrite (Negative) Urine Bilirubin (Negative) Urine Urobilinogen (Up TO 0.2) EU/dL Ur Leukocyte Esterase (Negative) Urine RBC (0-2) HPF Urine WBC (0-5) HPF Ur Epithelial Cells (Negative) HPF Urine Crystals (Negative) HPF Urine Bacteria (Negative) HPF Urine Casts (Negative) LPF Urine Mucus (Negative) Ur Culture Indicated? Urine Glucose (Negative) mg/dL Vancomycin Trough Rheumatoid Factor (<12.0) IU/mL Cyclic Citrull Peptide (<5.0) U/mL ANNIE Titer ANNIE Titer 2 ANNIE Titer 3 ANNIE Interpretation (Negative) ANCA Immunofluorescen (Negative) ANCA Titer ANCA Pattern SS-A Antibody (<20.0) Units SS-B Antibody (<20.0) Units Scl-70 IgG Ab U Double Strand DNA Ab (<30.0) IU/mL Adenovirus DNA (Negative) COVID-19 Source SARS-CoV-2 (PCR) (Negative) Human Metapneumovir RNA (Negative) Influenza Type A (PCR) (Negative) Influenza Type B (PCR) (Negative) Urine Legionella Ag (Negative) M. pneumoniae Source M. pneumoniae (PCR) Parainfluenza 1 (PCR) (Negative) Parainfluenza 2 (PCR) (Negative) Parainfluenza 3 (PCR) (Negative) Parainfluenza 4 (PCR) (Negative) RSV (PCR) (Negative) Resp Viral Spec Desc Rhinovirus (PCR) (Negative) B-(1,3)-D-Glucan Quant (<60 pg/mL) pg/mL B-(1,3)-D-Glucan Qual (Negative) Add-On Test Request
[2021-11-07 12:13] LABS: Mycoplasma Pneumoniae PCR Negative
--- NOTE | 2021-11-07 13:54 | W.PM.PROGNOT ---
Date of Service Date of service: 11/07/21 Time of Service: 14:14 Assessment and Plan Assessment and plan (1) Hypotension: Status: Resolved Assessment and plan: Now resolved. His lasix and losartan were held. Restart lasix today with an IV dose and then oral dosing to resume tomorrow. Flomax and proscar were held but will resume. Now on midodrine and wearing LUKAS stockings. (2) DVT prophylaxis: Status: Acute Assessment and plan: On apixiban (3) Pneumonia: Status: Resolved Assessment and plan: Fungitell positive. High dose steroids stopped. Zosyn stopped. Micafungin initiated. Pulmonary Medicine has ordered repeat Fungitell as well as fungal sputum culture aspergillus and chicho testing. (4) Acute kidney injury superimposed on chronic kidney disease: Status: Acute Assessment and plan: Creatinine increased to 2.0 but now back to 1.6 which is close or within his baseline range. Subjective Subjective Patient reports: shortness of breath (Not worse. Cough more loose. ) and afebrile; denies nausea or vomiting Interval history since last seen: Still feeling weak. Fatigues readily with transferring Exam Const General: cooperative, not healthy appearing, no acute distress, frail appearing and ill appearing acutely Nutritional Appearance: overweight Orientation: alert, awake and oriented x3 HENMT Head: normal to inspection and atraumatic Ears: hearing grossly normal bilaterally and TM normal on the left Face and sinus: normal facial exam Mouth: oral mucosae normal Eyes General: appearance normal, both eyes and all related structures Eyelids: eyelids normal Sclera: sclerae normal Neck Neck: normal visual inspection, full ROM, negative Kernig's sign and no JVD Resp Effort & Inspection: normal respiratory effort and able to speak in complete sentences Auscultation: not clear to auscultation bilaterally, crackles (course) bilaterally, diminished lung sounds on the left throughout and rales Cardio Jugular venous pressure: no JVD Rate: regular rate and tachycardic Rhythm: regular rhythm GI Inspection: normal to inspection and obesity Palpation: soft, not firm, no guarding and nontender Auscultation: normal bowel sounds Back/Spine/Pelvis Back: no CVA tenderness Cervical Spine: normal cervical lordosis Thoracic/Lumbar Spine: thoracic and lumbar spine normal to inspection Skin General skin exam: no rashes or lesions noted and other (venous stasis ulceration, scattered ecchymosis) Neuro General: patient alert, patient awake, patient oriented x3 and moves all extremities Cognition: normal cognition Speech: speech normal Gait: normal gait Extrem General: normal to inspection, no pedal edema, no calf tenderness and edema Laterality: bilateral (tr) Psych Appearance: grossly normal Mental Status: mental status grossly normal Speech and Movement: speech and movement normal Mood: congruent mood Affect: normal affect Attitude: cooperative Thought Process: normal Thought Content: normal Insight: insight good Judgment: fair Objective Last Vital Signs Temp 36.4 C L 11/07/21 13:00 Pulse 99 H 11/07/21 13:00 Resp 18 11/07/21 13:48 BP 130/83 11/07/21 13:00 Pulse Ox 93 11/07/21 13:48 Laboratory Results - last 24 hr 11/02/21 11/02/21 11/02/21 15:30 15:30 21:09 ANNIE Titer ANNIE Titer 2 ANNIE Titer 3 ANNIE Interpretation ANCA Immunofluorescen ANCA Titer ANCA Pattern SS-A Antibody SS-B Antibody Scl-70 IgG Ab Double Strand DNA Ab Adenovirus DNA Negative Human Metapneumovir RNA Negative M. pneumoniae Source nasal Cancelled M. pneumoniae (PCR) Negative Cancelled Parainfluenza 1 (PCR) Negative Parainfluenza 2 (PCR) Negative Parainfluenza 3 (PCR) Negative Parainfluenza 4 (PCR) Negative Resp Viral Spec Desc Not Applicable Rhinovirus (PCR) Negative B-(1,3)-D-Glucan Quant B-(1,3)-D-Glucan Qual 11/05/21 11/05/21 11/05/21 07:50 08:35 08:35 ANNIE Titer 1:160 Speckled ANNIE Titer 2 Not Applicable ANNIE Titer 3 Not Applicable ANNIE Interpretation Positive A ANCA Immunofluorescen Negative ANCA Titer Not Applicable ANCA Pattern Not Applicable SS-A Antibody 1.0 SS-B Antibody 0.8 Scl-70 IgG Ab <0.2 Double Strand DNA Ab <12.3 Adenovirus DNA Human Metapneumovir RNA M. pneumoniae Source M. pneumoniae (PCR) Parainfluenza 1 (PCR) Parainfluenza 2 (PCR) Parainfluenza 3 (PCR) Parainfluenza 4 (PCR) Resp Viral Spec Desc Rhinovirus (PCR) B-(1,3)-D-Glucan Quant B-(1,3)-D-Glucan Qual 11/05/21 08:35 ANNIE Titer ANNIE Titer 2 ANNIE Titer 3 ANNIE Interpretation ANCA Immunofluorescen ANCA Titer ANCA Pattern SS-A Antibody SS-B Antibody Scl-70 IgG Ab Double Strand DNA Ab Adenovirus DNA Human Metapneumovir RNA M. pneumoniae Source M. pneumoniae (PCR) Parainfluenza 1 (PCR) Parainfluenza 2 (PCR) Parainfluenza 3 (PCR) Parainfluenza 4 (PCR) Resp Viral Spec Desc Rhinovirus (PCR) B-(1,3)-D-Glucan Quant 149 A B-(1,3)-D-Glucan Qual Positive A PAWSS Have you Been Recently Intoxicated or Drunk Within the Last 30 days?: No Have you Ever Experienced Previous Episodes of Alcohol Withdrawal?: No Have you ever Experienced Withdrawal Seizures?: No Have you ever Experienced Delirium Tremens(DT)s?: No Have you ever undergone Alcohol Rehabilitation Treatment (i.e, inpt ot outpatient treatment programs)?: No Have you ever Experienced Blackouts?: No Have you ever Combined Alcohol with other Downers within the last 90 days?: No Have you ever Combined Alcohol with any other Substance of Abuse during the last 90 days?: No Positive Blood Alcohol level on Presentation? [PCS.BAL]: No Evidence of Increased Autonomic Activity (i.e. HR>120, tremor, sweating, agitation, nausea)?: No Result: 0
--- NOTE | 2021-11-07 14:37 | PTTR_ITS ---
PT Notes Visit Reasons: Pneumonia 11/07/2021 SUBJECTIVE: Feeling a little better this afternoon. Agreeable to PT treatment. OBJECTIVE: TRANSFERS Sit to stand: SBA Stand to sit: SBA GAIT Device: FWW Weight bearing: Full Assist: SBA Distance: 100'x2 Deviation: 4 L NC VITALS: 82-88% with gait, resting on 2 L NC at 96% ASSESSMENT: Requires breathing technique cues throughout. Tends to hold his breath during activity. No LOB or path deviations noted during gait today. PLAN: Continue per POC. Treatment time: 20 minutes [id number] Aixa Mendieta PTA Clinic location: [facility] [place], [place]
[2021-11-07] MEDS: Normal Saline Flush 10 ML SYR IVP (14:49)
--- NOTE | 2021-11-07 17:00 | PT.INDS ---
Date of service: 11/02/21 PT Notes Visit Reasons: Pneumonia Physical Therapy Discharge Summary Date: 11/07/2021 Dates of Service: 10/25/2021 through 11/02/2021 This is a clinical summary of care provided for the duration of dates listed above. No charge was made in the completion of this documentation. Referring Doctor: Eliseo Marie MD PT Orders: PT CONSULT: Extended stay weakness.? Limited ability Precautions: Fall. Standard. Activity as tolerated. Patient Profile/Admitting Diagnosis: Patient is discharged to the ICU due to is a 81-year-old male who [facility] with diagnosis of pulmonary emboli, polymyalgia rheumatica, chronic frontal sinusitis, hypothyroidism, cryptogenic organizing pneumonia, hypertension, and acute kidney injury. PMHX: All Active Problems? Pneumonia (Acute) SOB (shortness of breath) (Acute) Pulmonary emboli (Acute) Bilateral pneumonia (Acute) Sleep apnea (Chronic) PAD (peripheral artery disease) (Chronic) Medical History? BPH (benign prostatic hyperplasia) Chronic ethmoidal sinusitis Chronic frontal sinusitis Chronic kidney disease Deviated nasal septum Dilated aortic root Discharge planning issues DVT prophylaxis E coli bacteremia Fractured rib mid Sept 2019Hypothyroidism Kidney stone Lyme disease Nasal septal spur Nasal turbinate hypertrophy Parkinsons pt. states he does not have Polymyalgia rheumatica pt. reports he has this not parkinsonsPulmonary fat embolism Pyelonephritis due to Escherichia coli Surgical History? Hx of colonoscopy Hx of inguinal hernia surgery Hx of total hip arthroplasty right Social History/Home Situation: Lives alone in a private home with 3 steps to enter with rails on both sides.? States that he has his firewood stored some 25 feet outside of his home and that a neighbor is able to help him bring firewood as needed.? Still drives.? Independent with all aspects of ADLs prior to admission. Equipment Owned/DME: None Subjective:? NT. See most recent BATTERY REPAIRER notes. Objective: General Observation: NT. See most recent BATTERY REPAIRER notes. Mental Status: NT. See most recent BATTERY REPAIRER notes. Pain: NT. See most recent BATTERY REPAIRER notes. ROM: Right Upper Extremity: ? Shoulder Flexion WFL. Shoulder abduction WFL. Elbow flexion WFL. Wrist flexion WFL. Functional opening and closing of hand WFL. Left Upper Extremity:? Shoulder Flexion WFL. Shoulder abduction WFL. Elbow flexion WFL. Wrist flexion WFL. Functional opening and closing of hand WFL. Right Lower Extremity: Hip flexion WFL. Hip abduction WFL. Knee flexion WFL. Ankle dorsiflexion WFL. Ankle plantarflexion WFL. Left Lower Extremity: Hip flexion WFL. Hip abduction WFL. Knee flexion WFL. Ankle dorsiflexion WFL. Ankle plantarflexion WFL. Strength: Right Upper Extremity: Shoulder flexors 3+/5. Shoulder abductors 3+/5. Elbow flexors 3+5. Elbow extensors 3+/5. Cast Iron Dipper strong. Left Upper Extremity: Shoulder flexors 3+/5. Shoulder abductors 3+/5. Elbow flexors 3+/5. Elbow extensors 3+/5. Cast Iron Dipper strong. Right Lower Extremity: Hip flexors 3+/5. Hip abductors 3+/5. Knee flexors 4-/5. Knee extensors 3+/5. Ankle dorsiflexors 3+/5. Ankle plantarflexors 3+/5. Left Lower Extremity: Hip flexors 3+/5. Hip abductors 3+/5. Knee flexors 4-/5. Knee extensors 3+/5. Ankle dorsiflexors 3+/5. Ankle plantarflexors 3+/5. Bed Mobility/Transfers: Sit to stand with supervision Stand to sit with supervision Bed to bedside recliner supervision Gait: Tolerated level surface ambulation of up to 350 feet using front wheeled walker with full weight bearing requiring standby assist and wheelchair follow with oxygen supplementation up to 10 L and with oxygen saturation low of 79% and high of 97% during activity.? Complains of bilateral lower extremity weakness and fatigue after ambulation activity. Balance: Static Sitting: Normal Dynamic Sitting: Normal Static Standing: Fair Dynamic Standing: Fair Assessment: ? Patient continues to present with clinical signs and symptoms consistent with current/admitting diagnoses that have resulted to mobility limitations, gait instability, generalized weakness, and overall ADL decline as demonstrated by the following impairment level findings: 1.? Decreased strength to B UE/LE major muscle groups 2.? Impaired sitting/standing balance 3.? Impaired activity tolerance 4.? Shortness of breath 5.? Fatigue Impairments are contributing to the following functional limitations: 1.? Difficulty with ambulation without assistive device and physical assistance 2.? Increased completion time for mobility ADL performance 3.? Increased risk for falls 4.? Difficulty with managing steps alone safely Goals: Goals X1 week 1. Supine-Sit independent NOT MET 2. Sit-Supine independent NOT MET 3. Sit-Stand independent NOT MET 4. Stand-Sit independent with no FWW NOT MET 5. Bed-Chair independent with no FWW NOT MET 6. Chair-Bed independent with no FWW NOT MET 7. Independent gait on level surface with use of FWW for at least? 300 feet without report of pain nor dyspnea NOT MET 8. Good static and dynamic standing balance/tolerance NOT MET DISCHARGE RECOMMENDATIONS: [] ? Home with no services [] [] ? Home with services? [specify] [] ? Home with outpatient PT [] [X] ? SNF for continued rehabilitation.? Discharge to SNF when medically cleared by hospitalist.? Patient will benefit from prison facility placement for continued skilled physical therapy services in order to progress mobility level, strength, and balance to maximize functional outcomes. [] ? [facility] [] [] ? SNF versus LTC based on ability to participate and progress [] TREATMENT CODE/TIME: SD Thank you for the opportunity to participate in the care of this patient. Pepper Woodard PT, DPT, CLT [facility] [place], [place]
[2021-11-07] MEDS: Insulin Aspart 300 UNITS/3 ML PEN SC ×2 (17:08→21:11)
--- NOTE | 2021-11-07 17:21 | PDOC.CMPRO ---
- If Service Date Differs Date of service: 11/07/21 Time of Service: 17:21 Care Management Progress Note S/O: Jarrod was sitting up in his chair when CM met with him today. He reported that he is starting to feel better, although he is still not near his baseline. Per MD, it was identified today that he has a fungal infection. 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 Awaiting further test results to determine the course of treatment. CM sent his referral to [facility] and [facility] today. [facility] does not have a male bed at this time. [facility] is considering him, although with the new information regarding a fungal infection, his referral is currently on hold until his course of medication is identified. CM will continue to follow. A: Jarrod is an 81 year old male admitted to [facility] on 10/24/21 with Pneumonia, hypoxic respiratory failure P: Anticipate Jarrod will go to a SNF for short term rehab prior to returning home. His sister will likely drive him home via private vehicle when ready vs facility transportation, if available. He will follow up with his PCP and discharge plan of care. CM will continue to follow.
[2021-11-07] MEDS: Lidocaine 5% Patch 1 PATCH TP (17:31)
[2021-11-07] MEDS: Tamsulosin 0.4 MG CAPCR 0.8 MG PO (21:14)
[2021-11-07] MEDS: Acetaminophen 325 MG TAB PO (21:14)
[2021-11-07] MEDS: rOPINIRole 1 MG TAB 2 MG PO (21:14)
[2021-11-08] VITALS (13 sets, daily range): BP systolic 134–159; BP diastolic 64–91; PULSE 73–100; RESP 5–28; TEMP 35.5–36.5; O2SAT 90–95
[2021-11-08] MEDS: Albuterol/Ipratropium 3 ML UPD VIAL UPD ×6 (01:00→21:49)
[2021-11-08] MEDS: Levothyroxine 75 MCG TAB PO (05:09)
[2021-11-08] MEDS: Lidocaine Patch Removal 1 EACH TD (05:10)
[2021-11-08 07:11] LABS: BUN 35 mg/dL (7-18); CREATININE 1.5 mg/dL (0.70-1.30); Calcium 9.4 mg/dL (8.5-10.1); Chloride 108 mmol/L (98-107); Estimated GFR 44.92 (mL/min/1.73m2); Glucose 113 mg/dL (74-106); Potassium 4.1 mmol/L (3.5-5.1); Sodium 145 mmol/L (136-145)
[2021-11-08] MEDS: Fluticasone NASAL SPRAY 16 GM BTL NS ×2 (08:28→19:28)
[2021-11-08] MEDS: Nystatin POWDER 60 GM JAR TP ×2 (08:28→19:28)
[2021-11-08] MEDS: guaiFENesin 600 MG TABCR 1200 MG PO ×2 (08:29→19:28)
[2021-11-08] MEDS: Apixaban 5 MG TAB PO ×2 (08:29→19:29)
[2021-11-08] MEDS: Cholecalciferol (Vitamin D3) 1,000 UNIT TAB 2000 UNITS PO (08:29)
[2021-11-08] MEDS: Furosemide 40 MG TAB PO (08:29)
[2021-11-08] MEDS: Potassium Chloride 20 MEQ TABCR PO ×2 (08:29→19:29)
[2021-11-08] MEDS: Cetirizine 10 MG TAB 5 MG PO (08:29)
[2021-11-08] MEDS: Normal Saline Flush 10 ML SYR IVP ×2 (08:29→14:44)
[2021-11-08] MEDS: Finasteride 5 MG TAB PO (08:30)
[2021-11-08] MEDS: Midodrine 2.5 MG TAB PO ×3 (08:30→19:29)
[2021-11-08] MEDS: Pantoprazole 40 MG TABCR PO (08:30)
[2021-11-08] MEDS: Sertraline 25 MG TAB PO (08:30)
[2021-11-08] MEDS: Docusate Sodium 100 MG CAP PO ×2 (08:30→19:29)
[2021-11-08] MEDS: Ascorbic Acid 500 MG TAB PO ×2 (08:30→19:29)
[2021-11-08] MEDS: Montelukast 10 MG TAB PO (08:30)
--- NOTE | 2021-11-08 09:30 | CMPROGNOTE_ITS ---
- If Service Date Differs Date of service: 11/08/21 Time of Service: 09:30 Care Management Progress Note S/O: Jarrod was sitting up in his chair when CM met with him today. He reported that he feels weak, especially when transferring. Per MD, it was identified today that he has a fungal infection. He will likely require director long term care IV anti fungal medication, although his course is not clear at this time. Pulmonary Medicine ordered additional testing, results are pending. CM sent his referral to [facility] and [facility] today. [facility] does not have a male bed available at this time. [facility] is considering him, although they need to know the course of treatment required for his fungal infection before they can make a decision. CM will continue to follow. A: Jarrod is an 81 year old male admitted to [facility] on 10/24/21 with Pneumonia, hypoxic respiratory failure P: Anticipate, Jarrod will go to a SNF for short term rehab prior to returning home. His sister will likely drive him home via private vehicle when ready vs facility transportation, if available. He will follow up with his PCP and discharge plan of care. CM will continue to follow.
--- NOTE | 2021-11-08 11:09 | PT.INTREAT ---
Date of service: 11/08/21 Time of Service: 11:09 PT Notes Visit Reasons: Pneumonia Physical therapy Inpatient Treatment Note Date: 11/08/2021 SUBJECTIVE: Reports increased pressure in the forehead with fatigue that subsided with rest. Continues to report shortness of breath and fatigue with ambulation. OBJECTIVE: Pain: Frontal area pain during ambulation Oxygen saturation: 94% on 2 L at rest TRANSFERS Sit to stand: Stand by assist Stand to sit: Stand by assist Bed to chair: Stand by assist GAIT Device: FWW Weight bearing: Full Assist: Stand by assist Distance: 150 feet + 150 feet Deviation: Lowest saturation level was 75% on 4L necessitating titration of oxygen supp up to 6 L/min to maintain saturation to above 90%. ASSESSMENT: Moderate verbal cueing provided for frequent deep breathing during ambulation activity to minimize desaturation of oxygen supply. Patient continues to be limited by significantly decreased ventilatory threshold and will continue to benefit from graduated exercise and ambulation progression. DISCHARGE RECOMMENDATIONS: [] ? Home with no services [] [] ? Home with services? [specify] [] ? Home with outpatient PT [] [X] ? SNF for continued rehabilitation.? Discharge to SNF when medically cleared by hospitalist.? Patient will benefit from jail facility placement for continued skilled physical therapy services in order to progress mobility level, strength, and balance to maximize functional outcomes. [] ? [facility] [] [] ? SNF versus LTC based on ability to participate and progress [] TREATMENT CODE/TIME: 58232 x 26 minutes beginning at 11:09 AM.
--- NOTE | 2021-11-08 11:29 | W.PM.PROGNOT ---
Date of Service Date of service: 11/08/21 Time of Service: 11:31 Assessment and Plan Assessment and plan (1) Hypotension: Status: Resolved Assessment and plan: Now resolved. His lasix and losartan were held. Now back on his routine daily oral lasix. Flomax and proscar were held but will resume. Now on midodrine and wearing LUKAS stockings. SBP primarlly in the 130-150's range. Monitor and considering stopping midodrine. (2) DVT prophylaxis: Status: Acute Assessment and plan: On apixiban (3) Pneumonia: Status: Resolved Assessment and plan: Fungitell positive. Repeat is pending. High dose steroids stopped. Zosyn stopped. Micafungin initiated. Pulmonary Medicine has ordered repeat Fungitell as well as fungal sputum culture aspergillus and chicho testing that are pending. Urine histo neg. He is starting to have looser resp secretions and is expectorating some phlegm. Cont Mucinex and VibraPEP (4) Acute kidney injury superimposed on chronic kidney disease: Status: Acute Assessment and plan: Creatinine increased to 2.0 but now back to 1.5 which is close or within his baseline range. (5) Acute respiratory failure with hypoxia: Status: Acute Assessment and plan: Doing well at rest on 2L supplemental O2. With ambulation he required 4L today; down from 8L requirement over the previous days. Cont to monitor and adjust as necessary. Subjective Subjective Patient reports: feels better, shortness of breath (w/ambulation, but improved.) and afebrile; denies nausea or vomiting Interval history since last seen: Still feeling weak. Fatigues readily with transferring He did walk to the shower room and shower today. Exam Const General: cooperative, not healthy appearing, no acute distress, frail appearing and ill appearing acutely Nutritional Appearance: overweight Orientation: alert, awake and oriented x3 HENMT Head: normal to inspection and atraumatic Ears: hearing grossly normal bilaterally and TM normal on the left Face and sinus: normal facial exam Mouth: oral mucosae normal Eyes General: appearance normal, both eyes and all related structures Eyelids: eyelids normal Sclera: sclerae normal Neck Neck: normal visual inspection, full ROM, negative Kernig's sign and no JVD Resp Effort & Inspection: normal respiratory effort and able to speak in complete sentences Auscultation: not clear to auscultation bilaterally, crackles (course) bilaterally, diminished lung sounds on the left throughout and rales Cardio Jugular venous pressure: no JVD Rate: regular rate and tachycardic Rhythm: regular rhythm GI Inspection: normal to inspection and obesity Palpation: soft, not firm, no guarding and nontender Auscultation: normal bowel sounds Back/Spine/Pelvis Back: no CVA tenderness Cervical Spine: normal cervical lordosis Thoracic/Lumbar Spine: thoracic and lumbar spine normal to inspection Skin General skin exam: no rashes or lesions noted and other (venous stasis ulceration, scattered ecchymosis) Neuro General: patient alert, patient awake, patient oriented x3 and moves all extremities Cognition: normal cognition Speech: speech normal Gait: normal gait Extrem General: normal to inspection, no calf tenderness and edema Laterality: bilateral (Improved) Psych Appearance: grossly normal Mental Status: mental status grossly normal Speech and Movement: speech and movement normal Mood: congruent mood Affect: normal affect Attitude: cooperative Thought Process: normal Thought Content: normal Insight: insight good Judgment: fair Objective Last Vital Signs Temp 35.5 C L 11/08/21 11:09 Pulse 100 H 11/08/21 11:09 Resp 18 11/08/21 11:09 BP 136/82 11/08/21 11:09 Pulse Ox 90 L 11/08/21 11:09 Laboratory Results - last 24 hr 11/02/21 11/02/21 11/02/21 06:30 15:30 15:30 Sodium Potassium Chloride Carbon Dioxide Anion Gap BUN Creatinine Estimated GFR/1.73 m2 Glucose Calcium Urine Histoplasma Ag U Histoplasma Ag Index L.pneumophila Antibody Negative M. pneumoniae Source nasal Cancelled M. pneumoniae (PCR) Negative Cancelled 11/04/21 11/08/21 19:35 06:14 Sodium 145 Potassium 4.1 D Chloride 108 H Carbon Dioxide 28.0 Anion Gap 9.0 BUN 35 H Creatinine 1.5 H Estimated GFR/1.73 m2 44.92 Glucose 113 H Calcium 9.4 Urine Histoplasma Ag Not Detected U Histoplasma Ag Index Not Detected L.pneumophila Antibody M. pneumoniae Source M. pneumoniae (PCR) PAWSS Have you Been Recently Intoxicated or Drunk Within the Last 30 days?: No Have you Ever Experienced Previous Episodes of Alcohol Withdrawal?: No Have you ever Experienced Withdrawal Seizures?: No Have you ever Experienced Delirium Tremens(DT)s?: No Have you ever undergone Alcohol Rehabilitation Treatment (i.e, inpt ot outpatient treatment programs)?: No Have you ever Experienced Blackouts?: No Have you ever Combined Alcohol with other Downers within the last 90 days?: No Have you ever Combined Alcohol with any other Substance of Abuse during the last 90 days?: No Positive Blood Alcohol level on Presentation? [PCS.BAL]: No Evidence of Increased Autonomic Activity (i.e. HR>120, tremor, sweating, agitation, nausea)?: No Result: 0
[2021-11-08] MEDS: Acetaminophen 325 MG TAB PO (13:57)
[2021-11-08 15:26] LABS: Fungitell Qualitative Positive (Negative); Fungitell Quantitative Value 123 pg/mL (<60 pg/mL)
[2021-11-08 16:43] LABS: Candida Albicans (Monilia),IgE <0.35 kU/L
--- NOTE | 2021-11-08 16:47 | PTTR_ITS ---
Date of service: 11/08/21 Time of Service: 15:30 PT Notes Visit Reasons: Pneumonia Inpatient Physical Therapy Treatment Note [facility] Date: 11/08/2021 PRECAUTIONS:Activities as tolerated, fall SUBJECTIVE: Needs to get better with his breathing when walking. [place] the walk this afternoon went better easier than this morning. OBJECTIVE: PAIN: Lower abdominal sensitivity, but tolerable. BED MOBILITY/TRANSFERS Sit-stand: SBA Stand-sit: SBA GAIT Assistive Device: FWW Weight bearing: Full Assist: SBA and assist with w/c and O2 supplement 6L to 10L. Nursing assisted with O2 supplement Distance: 180ft x 1, required 2 standing breaks and 1 seated rest THEREX: Performed LAQs, seated hip flexion and seated hip abduction for 2 sets x 10 reps each VITALS: 84-93% with gait utilizing 6L to 10L. 89-93% with ther ex utilizing 3L. Resting on 3 L NC at 94% ASSESSMENT: Requires breathing technique cues throughout. Tends to hold his breath during activity. No LOB or path deviations noted during gait today. PLAN: Continue per POC. Treatment time: 30 minutes [id number]
[2021-11-08] MEDS: Lidocaine 5% Patch 1 PATCH TP (17:52)
[2021-11-08] MEDS: Tamsulosin 0.4 MG CAPCR 0.8 MG PO (21:49)
[2021-11-08] MEDS: rOPINIRole 1 MG TAB 2 MG PO (21:49)
[2021-11-08 23:05] LABS: Blastomyces Ag Result Not Detected; Blastomyces Ag Value Not Detected
[2021-11-09] VITALS (18 sets, daily range): BP systolic 115–147; BP diastolic 68–85; PULSE 71–107; RESP 1–25; TEMP 36.1–37.3; TEMPC 36.7; O2SAT 91–100; BMI 28.1
[2021-11-09] MEDS: Albuterol/Ipratropium 3 ML UPD VIAL UPD ×5 (02:26→19:53)
[2021-11-09] MEDS: Levothyroxine 75 MCG TAB PO (05:23)
[2021-11-09] MEDS: Acetaminophen 325 MG TAB PO ×2 (05:24→19:52)
[2021-11-09] MEDS: Lidocaine Patch Removal 1 EACH TD (07:30)
[2021-11-09] MEDS: Cholecalciferol (Vitamin D3) 1,000 UNIT TAB 2000 UNITS PO (08:42)
[2021-11-09] MEDS: Docusate Sodium 100 MG CAP PO ×2 (08:42→19:53)
[2021-11-09] MEDS: guaiFENesin 600 MG TABCR 1200 MG PO ×2 (08:43→19:53)
[2021-11-09] MEDS: Potassium Chloride 20 MEQ TABCR PO ×2 (08:43→19:53)
[2021-11-09] MEDS: Montelukast 10 MG TAB PO (08:43)
[2021-11-09] MEDS: Pantoprazole 40 MG TABCR PO (08:43)
[2021-11-09] MEDS: Ascorbic Acid 500 MG TAB PO ×2 (08:43→19:53)
[2021-11-09] MEDS: Furosemide 40 MG TAB PO (08:44)
[2021-11-09] MEDS: Finasteride 5 MG TAB PO (08:44)
[2021-11-09] MEDS: Cetirizine 10 MG TAB 5 MG PO (08:45)
[2021-11-09] MEDS: Sertraline 25 MG TAB PO (08:45)
[2021-11-09] MEDS: Fluticasone NASAL SPRAY 16 GM BTL NS ×2 (08:46→19:54)
[2021-11-09] MEDS: Apixaban 5 MG TAB PO ×2 (08:46→19:53)
[2021-11-09] MEDS: Midodrine 2.5 MG TAB PO ×3 (08:51→19:53)
--- NOTE | 2021-11-09 09:43 | PGE_ITS ---
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 He has been treated for a recurrent sinusitis and received extended courses of several antibiotics for this as well as a pneumonia. His Fungitell return very positive and subsequent testing was also positive and so steroids were discontinued.His fungal pneumonia work up is pending and today I will perform a bronchoscopy on him to try an isolate the organism further. I will empirically treat with micafungin and would continue the Bactrim. Fungal Pneumonia - Fungitell returned very positive and repeat is also very positive - Aspergillus Ag pending - fungal sputum culture pending - autoimmune panel negative - urine histo, urine blasto negative - repeat blood cultures no growth to date - continue Mucinex, VibraPEP, prn albuterol neb - continue micafungin 100mg daily - continue Bactrim PO for now - bronchoscopy today at noon - consent is in his chart Sinusitis - has been treated by now with all the antibiotics he has been on. 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 His second Fungitell also returned very positive. We are planned for bronchoscopy today in order to try and isolate the organism. He does feel as though his chest congestion is clearing up over the last couple days as well. Exam Narrative Exam Narrative: Gen: NAD, normal respiratory effort, well-nourished HENT: PERRL, nasal turbinates normal without erythema or inflammation, moist oral mucosa, Mallampati 2, No LAD or JVD Chest: No respiratory distress, normal appearance of chest, rales and wheezes diffusely Heart: regular rate and rhythym, no murmurs, rubs or gallops Abdomen: Non-distended, soft, non tender Extremities: No clubbing, cyanosis, rashes. LE edema Neuro: AAOx3 , non focal Psych: cooperative, appropriate mental affect Objective Last Vital Signs Temp 36.7 C 11/09/21 07:41 Pulse 98 H 11/09/21 07:41 Resp 18 11/09/21 07:41 BP 122/69 11/09/21 07:41 Pulse Ox 94 11/09/21 07:41 Laboratory Results - last 24 hr 11/04/21 11/07/21 11/07/21 19:35 12:45 12:45 C. albicans Allerg IgE <0.35 M. racemosus Allrg IgE <0.35 Blastomyces Ag Result Not Detected Blastomyces Ag Comment Not Detected B-(1,3)-D-Glucan Quant B-(1,3)-D-Glucan Qual 11/07/21 16:25 C. albicans Allerg IgE M. racemosus Allrg IgE Blastomyces Ag Result Blastomyces Ag Comment B-(1,3)-D-Glucan Quant 123 A B-(1,3)-D-Glucan Qual Positive A Results Medications Medications: Active Medications Generic Name Dose Route Start Last Admin Trade Name Freq PRN Reason Stop Dose Admin Acetaminophen 0 mg 10/24/21 18:34 11/09/21 05:24 Acetaminophen 325 Mg Tab PO 650 mg Q4H PRN PRN Administration Acetaminophen/Aspirin/Caffeine 2 each 11/02/21 17:01 Acetaminophen 250 Mg/Aspirin 250 Mg/Caffeine 65 Mg Tab PO Q6H PRN PRN Al Hydrox/Mg Hydrox/Simethicone 30 ml 10/28/21 06:00 10/28/21 06:21 Mylanta Suspension 30 Ml Cup PO 30 ml Q4H PRN PRN Administration Albuterol Sulfate 2.5 mg 10/24/21 18:34 11/02/21 06:38 Albuterol 2.5 Mg/3 Ml Inh Soln Vial UPD 2.5 mg Q2H PRN PRN Administration Albuterol/Ipratropium 3 ml 11/02/21 14:00 11/09/21 05:25 Albuterol/Ipratropium 3 Ml Upd Vial UPD 3 ml Q4H DEVENDRA Administration Apixaban 5 mg 10/24/21 20:00 11/09/21 08:46 Apixaban 5 Mg Tab PO 5 mg BID DEVENDRA Administration Ascorbic Acid 500 mg 11/02/21 20:00 11/09/21 08:43 Ascorbic Acid 500 Mg Tab PO 500 mg BID DEVENDRA Administration Cetirizine HCl 5 mg 10/28/21 12:30 11/09/21 08:45 Cetirizine 10 Mg Tab PO 5 mg DAILY DEVENDRA Administration Cholecalciferol 2,000 units 11/03/21 08:30 11/09/21 08:42 Cholecalciferol (Vitamin D3) 1,000 Unit Tab PO 2,000 units DAILY DEVENDRA Administration Dimethicone/Zinc Oxide 0 gm 10/24/21 18:34 Christina Protect Cream 142 Gm Tube TP PRN PRN Docusate Sodium 100 mg 11/04/21 20:00 11/09/21 08:42 Docusate Sodium 100 Mg Cap PO 100 mg BID DEVENDRA Administration Finasteride 5 mg 11/03/21 15:10 11/09/21 08:44 Finasteride 5 Mg Tab PO 5 mg DAILY DEVENDRA Administration Fluticasone Propionate 16 gm 10/25/21 08:30 11/09/21 08:46 Fluticasone Nasal [place] 16 Gm Btl NS 2 sprays BID DEVENDRA Administration Furosemide 40 mg 11/07/21 08:30 11/09/21 08:44 Furosemide 40 Mg Tab PO 40 mg DAILY DEVENDRA Administration Guaifenesin 1,200 mg 10/25/21 08:30 11/09/21 08:43 Guaifenesin 600 Mg Tabcr PO 1,200 mg BID DEVENDRA Administration Micafungin Sodium 100 mg/ 100 mls @ 100 mls/hr 11/07/21 14:00 11/08/21 15:45 Sodium Chloride IVPB Infused Q24H DEVENDRA Infusion Ipratropium [place] 0 ml 10/25/21 08:30 11/09/21 08:46 Ipratropium 0.03% 30 Ml Btl NS 2 sprays BID DEVENDRA Administration Lactobacillus Acidophilus/Casei 1 cap 11/03/21 08:30 11/09/21 08:43 L. Acidophilus, Casei, Rhamnosus Cap PO 1 cap DAILY DEVENDRA Administration Levothyroxine Sodium 75 mcg 10/26/21 06:00 11/09/21 05:23 Levothyroxine 75 Mcg Tab PO 75 mcg DAILY@0600 DEVENDRA Administration Lidocaine 1 patch 11/01/21 18:00 11/08/21 17:52 Lidocaine 5% Patch TP 1 patch Q24H DEVENDRA Administration Midodrine 2.5 mg 11/02/21 15:00 11/09/21 08:51 Midodrine 2.5 Mg Tab PO 2.5 mg TID DEVENDRA Administration Miscellaneous 1 each 11/02/21 06:00 11/08/21 05:10 Lidocaine Patch Removal TD 1 each Q24H DEVENDRA Administration Montelukast Sodium 10 mg 10/25/21 08:30 11/09/21 08:43 Montelukast 10 Mg Tab PO 10 mg DAILY DEVENDRA Administration Nystatin 0 gm 11/05/21 20:00 11/08/21 19:28 Nystatin Powder 60 Gm Jar TP 1 applic BID DEVENDRA Administration Ondansetron HCl 4 mg 10/28/21 12:42 Ondansetron 4 Mg/2 Ml Vial IVP Q4H PRN PRN Pantoprazole Sodium 40 mg 10/26/21 07:30 11/09/21 08:43 Pantoprazole 40 Mg Tabcr PO 40 mg DAILY@0730 DEVENDRA Administration Polyethylene Glycol 17 gm 11/04/21 14:45 11/09/21 08:48 Polyethylene Glycol 3350 17 Gm Packet PO Not Given DAILY DEVENDRA Potassium Chloride 20 meq 11/06/21 11:05 11/09/21 08:43 Potassium Chloride 20 Meq Tabcr PO 20 meq BID DEVENDRA Administration Ropinirole HCl 2 mg 10/24/21 22:00 11/08/21 21:49 Ropinirole 1 Mg Tab PO 2 mg HS DEVENDRA Administration Sertraline HCl 25 mg 10/25/21 08:30 11/09/21 08:45 Sertraline 25 Mg Tab PO 25 mg DAILY DEVENDRA Administration Sodium Chloride 0 ml 10/24/21 20:59 11/08/21 14:44 Normal Saline Flush 10 Ml Syr IVP 10 ml PRN PRN Administration Tamsulosin HCl 0.8 mg 11/03/21 22:00 11/08/21 21:49 Tamsulosin 0.4 Mg Capcr PO 0.8 mg HS DEVENDRA Administration Trimethoprim/Sulfamethoxazole 1 tab 11/07/21 08:30 11/09/21 08:42 Sulfameth/Trimeth Reg Str Tab PO 1 tab DAILY DEVENDRA Administration Allergies Sulfa (Sulfonamide Antibiotics) Adverse Reaction (Intermediate, Verified 10/24/21 16:31) Its been along time cat dander Adverse Reaction (Mild, Verified 10/24/21 16:31) penicillin V Adverse Reaction (Mild, Verified 10/24/21 16:31) nausea salicylates Adverse Reaction (Mild, Verified 10/24/21 16:31) up set stomach Labs Result Diagrams: 11/06/21 06:21 11/08/21 06:14 Labs: 11/07/21 12:55 Blood Blood Culture - Preliminary NO GROWTH 24 HOURS 11/07/21 12:45 Blood Blood Culture - Preliminary NO GROWTH 24 HOURS 11/02/21 15:30 Sputum Sputum Culture - Final Gram Negative Shannan,Mixed Normal Shannan 11/02/21 15:30 Sputum Gram Stain - Final 10/29/21 23:00 Blood Blood Culture - Final NO GROWTH 120 HOURS 10/29/21 22:45 Blood Blood Culture - Final NO GROWTH 120 HOURS 10/28/21 14:19 Blood Blood Culture - Final NO GROWTH 120 HOURS 10/28/21 14:19 Blood Blood Culture - Final NO GROWTH 120 HOURS 10/30/21 10:17 Nasopharynx Influenza Types A,B Antigen - Final 10/24/21 17:39 Blood Blood Culture - Final NO GROWTH 120 HOURS 10/24/21 17:30 Blood Blood Culture - Final NO GROWTH 120 HOURS 10/24/21 18:55 Nose MRSA Screen - Final Laboratory Tests Range/Units 10/24/21 10/24/21 10/24/21 16:55 16:55 16:55 WBC (4.4-10.8) 10^3/uL 11.13 H RBC (4.36-5.78) 10^6/uL 3.91 L Hgb (13.5-17.5) g/dL 13.1 L Hct (40.0-50.0) % 39.0 L MCV (80-95) fL 99.7 H MCH (27.0-33.0) pg 33.5 H MCHC (32.0-36.0) % 33.6 RDW (11.8-14.1) % 12.4 Plt Count (130-400) 10^3/uL 133 D MPV (8.0-11.0) fL 10.0 Immature Gran % 2.3 Neutrophils % 89.6 Lymphocytes % 2.8 Monocytes % 4.9 Eosinophils % 0.2 Basophils % 0.2 Nucleated RBC % % 0 Absolute Neutrophils (1.2-6.7) 10^3/uL 9.97 H Absolute Lymphocytes (1.2-3.4) 10^3/uL 0.31 L Absolute Monocytes (0.1-0.8) 10^3/uL 0.55 Absolute Eosinophils (0.0-0.7) 10^3/uL 0.02 Absolute Basophils (0.0-0.2) 10^3/uL 0.02 ESR (0-20) mm/hr Sample Site ABG Sample Site ABG pH (7.35-7.45) ABG pCO2 (35-45) mmHg ABG pO2 (80-105) mmHg ABG HCO3 (22-26) mmol/L ABG Total CO2 (23-27) mmol/L ABG O2 Saturation (95-98) % ABG Base Excess (-2-3) mmol/L VBG Lactate (0.6-1.4) mmol/L Oxygen Liter Flow FiO2 FiO2 (liters per min) L Sodium (136-145) mmol/L 135 L Potassium (3.5-5.1) mmol/L 4.1 Chloride (98-107) mmol/L 99 Carbon Dioxide (21.0-32.0) mmol/L 31.1 Anion Gap (3-11) mmol/L 4.9 BUN (7-18) mg/dL 30 H Creatinine (0.70-1.30) mg/dL 1.7 H Estimated GFR/1.73 m2 (mL/min/1.73m2) 38.88 Glucose (74-106) mg/dL 107 H Calcium (8.5-10.1) mg/dL 8.2 L Magnesium (1.8-2.4) mg/dL 1.8 Ferritin (22-322) ng/mL Total Bilirubin (0.2-1.0) mg/dL 0.8 AST (15-37) U/L 20 ALT (16-63) U/L 18 Alkaline Phosphatase (46-116) U/L 47 Troponin I (<or=60) ng/L < 50 C-Reactive Protein (0.0-0.3) mg/dL NT-Pro-B Natriuret Pep (<300) pg/mL 658 H Total Protein (6.4-8.2) g/dL 5.9 L Albumin (3.4-5.0) g/dL 3.0 L Procalcitonin ng/mL TSH (0.36-3.74) uIU/mL C. albicans Allerg IgE kU/L M. racemosus Allrg IgE kU/L Urine Color (Yellow) Urine Clarity (Clear) Urine pH (5-8) Ur Specific [place] (1.005-1.025) Urine Protein (Negative) mg/dL Urine Ketones (Negative) mg/dL Urine Blood (Negative) Urine Nitrite (Negative) Urine Bilirubin (Negative) Urine Urobilinogen (Up TO 0.2) EU/dL Ur Leukocyte Esterase (Negative) Urine RBC (0-2) HPF Urine WBC (0-5) HPF Ur Epithelial Cells (Negative) HPF Urine Crystals (Negative) HPF Urine Bacteria (Negative) HPF Urine Casts (Negative) LPF Urine Mucus (Negative) Ur Culture Indicated? Urine Glucose (Negative) mg/dL Vancomycin Trough Rheumatoid Factor (<12.0) IU/mL Cyclic Citrull Peptide (<5.0) U/mL ANNIE Titer ANNIE Titer 2 ANNIE Titer 3 ANNIE Interpretation (Negative) ANCA Immunofluorescen (Negative) ANCA Titer ANCA Pattern SS-A Antibody (<20.0) Units SS-B Antibody (<20.0) Units Scl-70 IgG Ab U Double Strand DNA Ab (<30.0) IU/mL Adenovirus DNA (Negative) Blastomyces Ag Result Blastomyces Ag Comment ng/mL COVID-19 Source Nasal/Nares SARS-CoV-2 (PCR) (Negative) Negative Urine Histoplasma Ag U Histoplasma Ag Index ng/mL Human Metapneumovir RNA (Negative) Influenza Type A (PCR) (Negative) Negative Influenza Type B (PCR) (Negative) Negative L.pneumophila Antibody (Negative) Urine Legionella Ag (Negative) M. pneumoniae Source M. pneumoniae (PCR) Parainfluenza 1 (PCR) (Negative) Parainfluenza 2 (PCR) (Negative) Parainfluenza 3 (PCR) (Negative) Parainfluenza 4 (PCR) (Negative) RSV (PCR) (Negative) Negative Resp Viral Spec Desc Rhinovirus (PCR) (Negative) B-(1,3)-D-Glucan Quant (<60 pg/mL) pg/mL B-(1,3)-D-Glucan Qual (Negative) Add-On Test Request Range/Units 10/24/21 10/24/21 10/24/21 17:12 17:12 17:20 WBC (4.4-10.8) 10^3/uL RBC (4.36-5.78) 10^6/uL Hgb (13.5-17.5) g/dL Hct (40.0-50.0) % MCV (80-95) fL MCH (27.0-33.0) pg MCHC (32.0-36.0) % RDW (11.8-14.1) % Plt Count (130-400) 10^3/uL MPV (8.0-11.0) fL Immature Gran % Neutrophils % Lymphocytes % Monocytes % Eosinophils % Basophils % Nucleated RBC % % Absolute Neutrophils (1.2-6.7) 10^3/uL Absolute Lymphocytes (1.2-3.4) 10^3/uL Absolute Monocytes (0.1-0.8) 10^3/uL Absolute Eosinophils (0.0-0.7) 10^3/uL Absolute Basophils (0.0-0.2) 10^3/uL ESR (0-20) mm/hr Sample Site ABG Sample Site ABG pH (7.35-7.45) ABG pCO2 (35-45) mmHg ABG pO2 (80-105) mmHg ABG HCO3 (22-26) mmol/L ABG Total CO2 (23-27) mmol/L ABG O2 Saturation (95-98) % ABG Base Excess (-2-3) mmol/L VBG Lactate (0.6-1.4) mmol/L 2.2 H* Oxygen Liter Flow FiO2 FiO2 (liters per min) L Sodium (136-145) mmol/L Potassium (3.5-5.1) mmol/L Chloride (98-107) mmol/L Carbon Dioxide (21.0-32.0) mmol/L Anion Gap (3-11) mmol/L BUN (7-18) mg/dL Creatinine (0.70-1.30) mg/dL Estimated GFR/1.73 m2 (mL/min/1.73m2) Glucose (74-106) mg/dL Calcium (8.5-10.1) mg/dL Magnesium (1.8-2.4) mg/dL Ferritin (22-322) ng/mL Total Bilirubin (0.2-1.0) mg/dL AST (15-37) U/L ALT (16-63) U/L Alkaline Phosphatase (46-116) U/L Troponin I (<or=60) ng/L C-Reactive Protein (0.0-0.3) mg/dL NT-Pro-B Natriuret Pep (<300) pg/mL Total Protein (6.4-8.2) g/dL Albumin (3.4-5.0) g/dL Procalcitonin ng/mL 0.2 TSH (0.36-3.74) uIU/mL C. albicans Allerg IgE kU/L M. racemosus Allrg IgE kU/L Urine Color (Yellow) Yellow Urine Clarity (Clear) Clear Urine pH (5-8) 6.0 Ur Specific [place] (1.005-1.025) 1.015 Urine Protein (Negative) mg/dL Negative Urine Ketones (Negative) mg/dL Negative Urine Blood (Negative) Moderate H Urine Nitrite (Negative) Negative Urine Bilirubin (Negative) Negative Urine Urobilinogen (Up TO 0.2) EU/dL 0.2 Ur Leukocyte Esterase (Negative) Negative Urine RBC (0-2) HPF >50 H Urine WBC (0-5) HPF 0-2 Ur Epithelial Cells (Negative) HPF Few Urine Crystals (Negative) HPF Negative Urine Bacteria (Negative) HPF Negative Urine Casts (Negative) LPF Negative Urine Mucus (Negative) Trace Ur Culture Indicated? No Urine Glucose (Negative) mg/dL Negative Vancomycin Trough Rheumatoid Factor (<12.0) IU/mL Cyclic Citrull Peptide (<5.0) U/mL ANNIE Titer ANNIE Titer 2 ANNIE Titer 3 ANNIE Interpretation (Negative) ANCA Immunofluorescen (Negative) ANCA Titer ANCA Pattern SS-A Antibody (<20.0) Units SS-B Antibody (<20.0) Units Scl-70 IgG Ab U Double Strand DNA Ab (<30.0) IU/mL Adenovirus DNA (Negative) Blastomyces Ag Result Blastomyces Ag Comment ng/mL COVID-19 Source SARS-CoV-2 (PCR) (Negative) Urine Histoplasma Ag U Histoplasma Ag Index ng/mL Human Metapneumovir RNA (Negative) Influenza Type A (PCR) (Negative) Influenza Type B (PCR) (Negative) L.pneumophila Antibody (Negative) Urine Legionella Ag (Negative) M. pneumoniae Source M. pneumoniae (PCR) Parainfluenza 1 (PCR) (Negative) Parainfluenza 2 (PCR) (Negative) Parainfluenza 3 (PCR) (Negative) Parainfluenza 4 (PCR) (Negative) RSV (PCR) (Negative) Resp Viral Spec Desc Rhinovirus (PCR) (Negative) B-(1,3)-D-Glucan Quant (<60 pg/mL) pg/mL B-(1,3)-D-Glucan Qual (Negative) Add-On Test Request Range/Units 10/25/21 10/25/21 10/26/21 06:45 06:45 06:26 WBC (4.4-10.8) 10^3/uL 8.35 RBC (4.36-5.78) 10^6/uL 3.56 L Hgb (13.5-17.5) g/dL 11.9 L Hct (40.0-50.0) % 36.0 L MCV (80-95) fL 101.1 H MCH (27.0-33.0) pg 33.4 H MCHC (32.0-36.0) % 33.1 RDW (11.8-14.1) % 12.4 Plt Count (130-400) 10^3/uL 104 L MPV (8.0-11.0) fL 10.3 Immature Gran % 2.3 Neutrophils % 80.6 Lymphocytes % 8.5 Monocytes % 4.8 Eosinophils % 3.4 Basophils % 0.4 Nucleated RBC % % 0 Absolute Neutrophils (1.2-6.7) 10^3/uL 6.74 H Absolute Lymphocytes (1.2-3.4) 10^3/uL 0.71 L Absolute Monocytes (0.1-0.8) 10^3/uL 0.40 Absolute Eosinophils (0.0-0.7) 10^3/uL 0.28 Absolute Basophils (0.0-0.2) 10^3/uL 0.03 ESR (0-20) mm/hr Sample Site ABG Sample Site ABG pH (7.35-7.45) ABG pCO2 (35-45) mmHg ABG pO2 (80-105) mmHg ABG HCO3 (22-26) mmol/L ABG Total CO2 (23-27) mmol/L ABG O2 Saturation (95-98) % ABG Base Excess (-2-3) mmol/L VBG Lactate (0.6-1.4) mmol/L Oxygen Liter Flow FiO2 FiO2 (liters per min) L Sodium (136-145) mmol/L 137 138 Potassium (3.5-5.1) mmol/L 3.1 L D 3.1 L Chloride (98-107) mmol/L 101 102 Carbon Dioxide (21.0-32.0) mmol/L 29.7 26.3 Anion Gap (3-11) mmol/L 6.3 9.7 BUN (7-18) mg/dL 28 H 28 H Creatinine (0.70-1.30) mg/dL 1.6 H 1.6 H Estimated GFR/1.73 m2 (mL/min/1.73m2) 41.69 41.69 Glucose (74-106) mg/dL 84 134 H Calcium (8.5-10.1) mg/dL 8.1 L 8.0 L Magnesium (1.8-2.4) mg/dL Ferritin (22-322) ng/mL Total Bilirubin (0.2-1.0) mg/dL AST (15-37) U/L ALT (16-63) U/L Alkaline Phosphatase (46-116) U/L Troponin I (<or=60) ng/L C-Reactive Protein (0.0-0.3) mg/dL NT-Pro-B Natriuret Pep (<300) pg/mL Total Protein (6.4-8.2) g/dL Albumin (3.4-5.0) g/dL Procalcitonin ng/mL TSH (0.36-3.74) uIU/mL C. albicans Allerg IgE kU/L M. racemosus Allrg IgE kU/L Urine Color (Yellow) Urine Clarity (Clear) Urine pH (5-8) Ur Specific [place] (1.005-1.025) Urine Protein (Negative) mg/dL Urine Ketones (Negative) mg/dL Urine Blood (Negative) Urine Nitrite (Negative) Urine Bilirubin (Negative) Urine Urobilinogen (Up TO 0.2) EU/dL Ur Leukocyte Esterase (Negative) Urine RBC (0-2) HPF Urine WBC (0-5) HPF Ur Epithelial Cells (Negative) HPF Urine Crystals (Negative) HPF Urine Bacteria (Negative) HPF Urine Casts (Negative) LPF Urine Mucus (Negative) Ur Culture Indicated? Urine Glucose (Negative) mg/dL Vancomycin Trough Rheumatoid Factor (<12.0) IU/mL Cyclic Citrull Peptide (<5.0) U/mL ANNIE Titer ANNIE Titer 2 ANNIE Titer 3 ANNIE Interpretation (Negative) ANCA Immunofluorescen (Negative) ANCA Titer ANCA Pattern SS-A Antibody (<20.0) Units SS-B Antibody (<20.0) Units Scl-70 IgG Ab U Double Strand DNA Ab (<30.0) IU/mL Adenovirus DNA (Negative) Blastomyces Ag Result Blastomyces Ag Comment ng/mL COVID-19 Source SARS-CoV-2 (PCR) (Negative) Urine Histoplasma Ag U Histoplasma Ag Index ng/mL Human Metapneumovir RNA (Negative) Influenza Type A (PCR) (Negative) Influenza Type B (PCR) (Negative) L.pneumophila Antibody (Negative) Urine Legionella Ag (Negative) M. pneumoniae Source M. pneumoniae (PCR) Parainfluenza 1 (PCR) (Negative) Parainfluenza 2 (PCR) (Negative) Parainfluenza 3 (PCR) (Negative) Parainfluenza 4 (PCR) (Negative) RSV (PCR) (Negative) Resp Viral Spec Desc Rhinovirus (PCR) (Negative) B-(1,3)-D-Glucan Quant (<60 pg/mL) pg/mL B-(1,3)-D-Glucan Qual (Negative) Add-On Test Request Range/Units 10/26/21 10/26/21 10/26/21 06:26 06:26 06:26 WBC (4.4-10.8) 10^3/uL 9.40 RBC (4.36-5.78) 10^6/uL 3.46 L Hgb (13.5-17.5) g/dL 11.5 L Hct (40.0-50.0) % 34.7 L MCV (80-95) fL 100.3 H MCH (27.0-33.0) pg 33.2 H MCHC (32.0-36.0) % 33.1 RDW (11.8-14.1) % 12.5 Plt Count (130-400) 10^3/uL 116 L MPV (8.0-11.0) fL 10.5 Immature Gran % 1.9 Neutrophils % 90.0 Lymphocytes % 4.4 Monocytes % 3.5 Eosinophils % 0.1 Basophils % 0.1 Nucleated RBC % % 0 Absolute Neutrophils (1.2-6.7) 10^3/uL 8.46 H Absolute Lymphocytes (1.2-3.4) 10^3/uL 0.41 L Absolute Monocytes (0.1-0.8) 10^3/uL 0.33 Absolute Eosinophils (0.0-0.7) 10^3/uL 0.01 Absolute Basophils (0.0-0.2) 10^3/uL 0.01 ESR (0-20) mm/hr Sample Site ABG Sample Site ABG pH (7.35-7.45) ABG pCO2 (35-45) mmHg ABG pO2 (80-105) mmHg ABG HCO3 (22-26) mmol/L ABG Total CO2 (23-27) mmol/L ABG O2 Saturation (95-98) % ABG Base Excess (-2-3) mmol/L VBG Lactate (0.6-1.4) mmol/L Oxygen Liter Flow FiO2 FiO2 (liters per min) L Sodium (136-145) mmol/L Potassium (3.5-5.1) mmol/L Chloride (98-107) mmol/L Carbon Dioxide (21.0-32.0) mmol/L Anion Gap (3-11) mmol/L BUN (7-18) mg/dL Creatinine (0.70-1.30) mg/dL Estimated GFR/1.73 m2 (mL/min/1.73m2) Glucose (74-106) mg/dL Calcium (8.5-10.1) mg/dL Magnesium (1.8-2.4) mg/dL 2.0 Ferritin (22-322) ng/mL Total Bilirubin (0.2-1.0) mg/dL AST (15-37) U/L ALT (16-63) U/L Alkaline Phosphatase (46-116) U/L Troponin I (<or=60) ng/L C-Reactive Protein (0.0-0.3) mg/dL NT-Pro-B Natriuret Pep (<300) pg/mL Total Protein (6.4-8.2) g/dL Albumin (3.4-5.0) g/dL Procalcitonin ng/mL TSH (0.36-3.74) uIU/mL C. albicans Allerg IgE kU/L M. racemosus Allrg IgE kU/L Urine Color (Yellow) Urine Clarity (Clear) Urine pH (5-8) Ur Specific [place] (1.005-1.025) Urine Protein (Negative) mg/dL Urine Ketones (Negative) mg/dL Urine Blood (Negative) Urine Nitrite (Negative) Urine Bilirubin (Negative) Urine Urobilinogen (Up TO 0.2) EU/dL Ur Leukocyte Esterase (Negative) Urine RBC (0-2) HPF Urine WBC (0-5) HPF Ur Epithelial Cells (Negative) HPF Urine Crystals (Negative) HPF Urine Bacteria (Negative) HPF Urine Casts (Negative) LPF Urine Mucus (Negative) Ur Culture Indicated? Urine Glucose (Negative) mg/dL Vancomycin Trough Rheumatoid Factor (<12.0) IU/mL Cyclic Citrull Peptide (<5.0) U/mL ANNIE Titer ANNIE Titer 2 ANNIE Titer 3 ANNIE Interpretation (Negative) ANCA Immunofluorescen (Negative) ANCA Titer ANCA Pattern SS-A Antibody (<20.0) Units SS-B Antibody (<20.0) Units Scl-70 IgG Ab U Double Strand DNA Ab (<30.0) IU/mL Adenovirus DNA (Negative) Blastomyces Ag Result Blastomyces Ag Comment ng/mL COVID-19 Source SARS-CoV-2 (PCR) (Negative) Urine Histoplasma Ag U Histoplasma Ag Index ng/mL Human Metapneumovir RNA (Negative) Influenza Type A (PCR) (Negative) Influenza Type B (PCR) (Negative) L.pneumophila Antibody (Negative) Urine Legionella Ag (Negative) M. pneumoniae Source M. pneumoniae (PCR) Parainfluenza 1 (PCR) (Negative) Parainfluenza 2 (PCR) (Negative) Parainfluenza 3 (PCR) (Negative) Parainfluenza 4 (PCR) (Negative) RSV (PCR) (Negative) Resp Viral Spec Desc Rhinovirus (PCR) (Negative) B-(1,3)-D-Glucan Quant (<60 pg/mL) pg/mL B-(1,3)-D-Glucan Qual (Negative) Add-On Test Request DONE Range/Units 10/27/21 10/27/21 10/28/21 06:34 06:34 05:15 WBC (4.4-10.8) 10^3/uL 10.65 RBC (4.36-5.78) 10^6/uL 3.40 L Hgb (13.5-17.5) g/dL 11.4 L Hct (40.0-50.0) % 34.4 L MCV (80-95) fL 101.2 H MCH (27.0-33.0) pg 33.5 H MCHC (32.0-36.0) % 33.1 RDW (11.8-14.1) % 12.6 Plt Count (130-400) 10^3/uL 117 L MPV (8.0-11.0) fL 10.1 Immature Gran % 1.5 Neutrophils % 87.8 Lymphocytes % 5.4 Monocytes % 4.8 Eosinophils % 0.3 Basophils % 0.2 Nucleated RBC % % 0 Absolute Neutrophils (1.2-6.7) 10^3/uL 9.36 H Absolute Lymphocytes (1.2-3.4) 10^3/uL 0.57 L Absolute Monocytes (0.1-0.8) 10^3/uL 0.51 Absolute Eosinophils (0.0-0.7) 10^3/uL 0.03 Absolute Basophils (0.0-0.2) 10^3/uL 0.02 ESR (0-20) mm/hr Sample Site ABG Sample Site ABG pH (7.35-7.45) ABG pCO2 (35-45) mmHg ABG pO2 (80-105) mmHg ABG HCO3 (22-26) mmol/L ABG Total CO2 (23-27) mmol/L ABG O2 Saturation (95-98) % ABG Base Excess (-2-3) mmol/L VBG Lactate (0.6-1.4) mmol/L Oxygen Liter Flow FiO2 FiO2 (liters per min) L Sodium (136-145) mmol/L 138 139 Potassium (3.5-5.1) mmol/L 3.7 4.0 Chloride (98-107) mmol/L 104 105 Carbon Dioxide (21.0-32.0) mmol/L 25.5 27.4 Anion Gap (3-11) mmol/L 8.5 6.6 BUN (7-18) mg/dL 33 H 29 H Creatinine (0.70-1.30) mg/dL 1.5 H 1.5 H Estimated GFR/1.73 m2 (mL/min/1.73m2) 44.92 44.92 Glucose (74-106) mg/dL 121 H 79 Calcium (8.5-10.1) mg/dL 8.1 L 8.7 Magnesium (1.8-2.4) mg/dL 1.9 2.0 Ferritin (22-322) ng/mL Total Bilirubin (0.2-1.0) mg/dL AST (15-37) U/L ALT (16-63) U/L Alkaline Phosphatase (46-116) U/L Troponin I (<or=60) ng/L C-Reactive Protein (0.0-0.3) mg/dL NT-Pro-B Natriuret Pep (<300) pg/mL Total Protein (6.4-8.2) g/dL Albumin (3.4-5.0) g/dL Procalcitonin ng/mL TSH (0.36-3.74) uIU/mL C. albicans Allerg IgE kU/L M. racemosus Allrg IgE kU/L Urine Color (Yellow) Urine Clarity (Clear) Urine pH (5-8) Ur Specific [place] (1.005-1.025) Urine Protein (Negative) mg/dL Urine Ketones (Negative) mg/dL Urine Blood (Negative) Urine Nitrite (Negative) Urine Bilirubin (Negative) Urine Urobilinogen (Up TO 0.2) EU/dL Ur Leukocyte Esterase (Negative) Urine RBC (0-2) HPF Urine WBC (0-5) HPF Ur Epithelial Cells (Negative) HPF Urine Crystals (Negative) HPF Urine Bacteria (Negative) HPF Urine Casts (Negative) LPF Urine Mucus (Negative) Ur Culture Indicated? Urine Glucose (Negative) mg/dL Vancomycin Trough Rheumatoid Factor (<12.0) IU/mL Cyclic Citrull Peptide (<5.0) U/mL ANNIE Titer ANNIE Titer 2 ANNIE Titer 3 ANNIE Interpretation (Negative) ANCA Immunofluorescen (Negative) ANCA Titer ANCA Pattern SS-A Antibody (<20.0) Units SS-B Antibody (<20.0) Units Scl-70 IgG Ab U Double Strand DNA Ab (<30.0) IU/mL Adenovirus DNA (Negative) Blastomyces Ag Result Blastomyces Ag Comment ng/mL COVID-19 Source SARS-CoV-2 (PCR) (Negative) Urine Histoplasma Ag U Histoplasma Ag Index ng/mL Human Metapneumovir RNA (Negative) Influenza Type A (PCR) (Negative) Influenza Type B (PCR) (Negative) L.pneumophila Antibody (Negative) Urine Legionella Ag (Negative) M. pneumoniae Source M. pneumoniae (PCR) Parainfluenza 1 (PCR) (Negative) Parainfluenza 2 (PCR) (Negative) Parainfluenza 3 (PCR) (Negative) Parainfluenza 4 (PCR) (Negative) RSV (PCR) (Negative) Resp Viral Spec Desc Rhinovirus (PCR) (Negative) B-(1,3)-D-Glucan Quant (<60 pg/mL) pg/mL B-(1,3)-D-Glucan Qual (Negative) Add-On Test Request Range/Units 10/28/21 10/29/21 10/29/21 05:15 07:00 07:00 WBC (4.4-10.8) 10^3/uL 8.86 7.72 RBC (4.36-5.78) 10^6/uL 3.71 L 3.52 L Hgb (13.5-17.5) g/dL 12.2 L 11.7 L Hct (40.0-50.0) % 38.6 L 35.0 L MCV (80-95) fL 104.0 H 99.4 H MCH (27.0-33.0) pg 32.9 33.2 H MCHC (32.0-36.0) % 31.6 L 33.4 RDW (11.8-14.1) % 12.9 13.1 Plt Count (130-400) 10^3/uL 121 L 118 L MPV (8.0-11.0) fL 10.2 9.6 Immature Gran % 2.0 1.9 Neutrophils % 75.9 81.2 Lymphocytes % 12.0 8.3 Monocytes % 6.2 4.5 Eosinophils % 3.4 4.0 Basophils % 0.5 0.1 Nucleated RBC % % 0 0 Absolute Neutrophils (1.2-6.7) 10^3/uL 6.73 H 6.26 Absolute Lymphocytes (1.2-3.4) 10^3/uL 1.06 L 0.64 L Absolute Monocytes (0.1-0.8) 10^3/uL 0.55 0.35 Absolute Eosinophils (0.0-0.7) 10^3/uL 0.30 0.31 Absolute Basophils (0.0-0.2) 10^3/uL 0.04 0.01 ESR (0-20) mm/hr Sample Site ABG Sample Site ABG pH (7.35-7.45) ABG pCO2 (35-45) mmHg ABG pO2 (80-105) mmHg ABG HCO3 (22-26) mmol/L ABG Total CO2 (23-27) mmol/L ABG O2 Saturation (95-98) % ABG Base Excess (-2-3) mmol/L VBG Lactate (0.6-1.4) mmol/L Oxygen Liter Flow FiO2 FiO2 (liters per min) L Sodium (136-145) mmol/L 139 Potassium (3.5-5.1) mmol/L 3.7 Chloride (98-107) mmol/L 105 Carbon Dioxide (21.0-32.0) mmol/L 24.2 Anion Gap (3-11) mmol/L 9.8 BUN (7-18) mg/dL 26 H Creatinine (0.70-1.30) mg/dL 1.3 Estimated GFR/1.73 m2 (mL/min/1.73m2) 52.98 Glucose (74-106) mg/dL 88 Calcium (8.5-10.1) mg/dL 8.7 Magnesium (1.8-2.4) mg/dL Ferritin (22-322) ng/mL Total Bilirubin (0.2-1.0) mg/dL AST (15-37) U/L ALT (16-63) U/L Alkaline Phosphatase (46-116) U/L Troponin I (<or=60) ng/L C-Reactive Protein (0.0-0.3) mg/dL 11.41 H NT-Pro-B Natriuret Pep (<300) pg/mL Total Protein (6.4-8.2) g/dL Albumin (3.4-5.0) g/dL Procalcitonin ng/mL TSH (0.36-3.74) uIU/mL C. albicans Allerg IgE kU/L M. racemosus Allrg IgE kU/L Urine Color (Yellow) Urine Clarity (Clear) Urine pH (5-8) Ur Specific [place] (1.005-1.025) Urine Protein (Negative) mg/dL Urine Ketones (Negative) mg/dL Urine Blood (Negative) Urine Nitrite (Negative) Urine Bilirubin (Negative) Urine Urobilinogen (Up TO 0.2) EU/dL Ur Leukocyte Esterase (Negative) Urine RBC (0-2) HPF Urine WBC (0-5) HPF Ur Epithelial Cells (Negative) HPF Urine Crystals (Negative) HPF Urine Bacteria (Negative) HPF Urine Casts (Negative) LPF Urine Mucus (Negative) Ur Culture Indicated? Urine Glucose (Negative) mg/dL Vancomycin Trough Rheumatoid Factor (<12.0) IU/mL Cyclic Citrull Peptide (<5.0) U/mL ANNIE Titer ANNIE Titer 2 ANNIE Titer 3 ANNIE Interpretation (Negative) ANCA Immunofluorescen (Negative) ANCA Titer ANCA Pattern SS-A Antibody (<20.0) Units SS-B Antibody (<20.0) Units Scl-70 IgG Ab U Double Strand DNA Ab (<30.0) IU/mL Adenovirus DNA (Negative) Blastomyces Ag Result Blastomyces Ag Comment ng/mL COVID-19 Source SARS-CoV-2 (PCR) (Negative) Urine Histoplasma Ag U Histoplasma Ag Index ng/mL Human Metapneumovir RNA (Negative) Influenza Type A (PCR) (Negative) Influenza Type B (PCR) (Negative) L.pneumophila Antibody (Negative) Urine Legionella Ag (Negative) M. pneumoniae Source M. pneumoniae (PCR) Parainfluenza 1 (PCR) (Negative) Parainfluenza 2 (PCR) (Negative) Parainfluenza 3 (PCR) (Negative) Parainfluenza 4 (PCR) (Negative) RSV (PCR) (Negative) Resp Viral Spec Desc Rhinovirus (PCR) (Negative) B-(1,3)-D-Glucan Quant (<60 pg/mL) pg/mL B-(1,3)-D-Glucan Qual (Negative) Add-On Test Request Range/Units 10/29/21 10/30/21 10/30/21 07:00 06:18 09:26 WBC (4.4-10.8) 10^3/uL RBC (4.36-5.78) 10^6/uL Hgb (13.5-17.5) g/dL Hct (40.0-50.0) % MCV (80-95) fL MCH (27.0-33.0) pg MCHC (32.0-36.0) % RDW (11.8-14.1) % Plt Count (130-400) 10^3/uL MPV (8.0-11.0) fL Immature Gran % Neutrophils % Lymphocytes % Monocytes % Eosinophils % Basophils % Nucleated RBC % % Absolute Neutrophils (1.2-6.7) 10^3/uL Absolute Lymphocytes (1.2-3.4) 10^3/uL Absolute Monocytes (0.1-0.8) 10^3/uL Absolute Eosinophils (0.0-0.7) 10^3/uL Absolute Basophils (0.0-0.2) 10^3/uL ESR (0-20) mm/hr Sample Site ABG Sample Site ABG pH (7.35-7.45) ABG pCO2 (35-45) mmHg ABG pO2 (80-105) mmHg ABG HCO3 (22-26) mmol/L ABG Total CO2 (23-27) mmol/L ABG O2 Saturation (95-98) % ABG Base Excess (-2-3) mmol/L VBG Lactate (0.6-1.4) mmol/L 0.7 Oxygen Liter Flow FiO2 FiO2 (liters per min) L Sodium (136-145) mmol/L 139 Potassium (3.5-5.1) mmol/L 3.6 Chloride (98-107) mmol/L 104 Carbon Dioxide (21.0-32.0) mmol/L 25.4 Anion Gap (3-11) mmol/L 9.6 BUN (7-18) mg/dL 25 H Creatinine (0.70-1.30) mg/dL 1.4 H Estimated GFR/1.73 m2 (mL/min/1.73m2) 48.64 Glucose (74-106) mg/dL 113 H Calcium (8.5-10.1) mg/dL 8.9 Magnesium (1.8-2.4) mg/dL 2.0 Ferritin (22-322) ng/mL Total Bilirubin (0.2-1.0) mg/dL AST (15-37) U/L ALT (16-63) U/L Alkaline Phosphatase (46-116) U/L Troponin I (<or=60) ng/L C-Reactive Protein (0.0-0.3) mg/dL NT-Pro-B Natriuret Pep (<300) pg/mL Total Protein (6.4-8.2) g/dL Albumin (3.4-5.0) g/dL Procalcitonin ng/mL 0.1 TSH (0.36-3.74) uIU/mL C. albicans Allerg IgE kU/L M. racemosus Allrg IgE kU/L Urine Color (Yellow) Urine Clarity (Clear) Urine pH (5-8) Ur Specific [place] (1.005-1.025) Urine Protein (Negative) mg/dL Urine Ketones (Negative) mg/dL Urine Blood (Negative) Urine Nitrite (Negative) Urine Bilirubin (Negative) Urine Urobilinogen (Up TO 0.2) EU/dL Ur Leukocyte Esterase (Negative) Urine RBC (0-2) HPF Urine WBC (0-5) HPF Ur Epithelial Cells (Negative) HPF Urine Crystals (Negative) HPF Urine Bacteria (Negative) HPF Urine Casts (Negative) LPF Urine Mucus (Negative) Ur Culture Indicated? Urine Glucose (Negative) mg/dL Vancomycin Trough Rheumatoid Factor (<12.0) IU/mL Cyclic Citrull Peptide (<5.0) U/mL ANNIE Titer ANNIE Titer 2 ANNIE Titer 3 ANNIE Interpretation (Negative) ANCA Immunofluorescen (Negative) ANCA Titer ANCA Pattern SS-A Antibody (<20.0) Units SS-B Antibody (<20.0) Units Scl-70 IgG Ab U Double Strand DNA Ab (<30.0) IU/mL Adenovirus DNA (Negative) Blastomyces Ag Result Blastomyces Ag Comment ng/mL COVID-19 Source Nasal/Nares SARS-CoV-2 (PCR) (Negative) Negative Urine Histoplasma Ag U Histoplasma Ag Index ng/mL Human Metapneumovir RNA (Negative) Influenza Type A (PCR) (Negative) Influenza Type B (PCR) (Negative) L.pneumophila Antibody (Negative) Urine Legionella Ag (Negative) M. pneumoniae Source M. pneumoniae (PCR) Parainfluenza 1 (PCR) (Negative) Parainfluenza 2 (PCR) (Negative) Parainfluenza 3 (PCR) (Negative) Parainfluenza 4 (PCR) (Negative) RSV (PCR) (Negative) Resp Viral Spec Desc Rhinovirus (PCR) (Negative) B-(1,3)-D-Glucan Quant (<60 pg/mL) pg/mL B-(1,3)-D-Glucan Qual (Negative) Add-On Test Request Range/Units 10/30/21 10/30/21 10/31/21 12:50 12:50 06:25 WBC (4.4-10.8) 10^3/uL RBC (4.36-5.78) 10^6/uL Hgb (13.5-17.5) g/dL Hct (40.0-50.0) % MCV (80-95) fL MCH (27.0-33.0) pg MCHC (32.0-36.0) % RDW (11.8-14.1) % Plt Count (130-400) 10^3/uL MPV (8.0-11.0) fL Immature Gran % Neutrophils % Lymphocytes % Monocytes % Eosinophils % Basophils % Nucleated RBC % % Absolute Neutrophils (1.2-6.7) 10^3/uL Absolute Lymphocytes (1.2-3.4) 10^3/uL Absolute Monocytes (0.1-0.8) 10^3/uL Absolute Eosinophils (0.0-0.7) 10^3/uL Absolute Basophils (0.0-0.2) 10^3/uL ESR (0-20) mm/hr Sample Site Right Radial ABG Sample Site Cancelled ABG pH (7.35-7.45) 7.50 H ABG pCO2 (35-45) mmHg 30 L ABG pO2 (80-105) mmHg 79 L ABG HCO3 (22-26) mmol/L 22 ABG Total CO2 (23-27) mmol/L 23 ABG O2 Saturation (95-98) % 97 ABG Base Excess (-2-3) mmol/L -1 VBG Lactate (0.6-1.4) mmol/L 1.8 H Oxygen Liter Flow Cancelled FiO2 Cancelled FiO2 (liters per min) L 0.5 Sodium (136-145) mmol/L 140 Potassium (3.5-5.1) mmol/L 3.7 Chloride (98-107) mmol/L 103 Carbon Dioxide (21.0-32.0) mmol/L 28.1 Anion Gap (3-11) mmol/L 8.9 BUN (7-18) mg/dL 32 H Creatinine (0.70-1.30) mg/dL 1.5 H Estimated GFR/1.73 m2 (mL/min/1.73m2) 44.92 Glucose (74-106) mg/dL 110 H Calcium (8.5-10.1) mg/dL 8.7 Magnesium (1.8-2.4) mg/dL Ferritin (22-322) ng/mL Total Bilirubin (0.2-1.0) mg/dL AST (15-37) U/L ALT (16-63) U/L Alkaline Phosphatase (46-116) U/L Troponin I (<or=60) ng/L C-Reactive Protein (0.0-0.3) mg/dL NT-Pro-B Natriuret Pep (<300) pg/mL Total Protein (6.4-8.2) g/dL Albumin (3.4-5.0) g/dL Procalcitonin ng/mL TSH (0.36-3.74) uIU/mL C. albicans Allerg IgE kU/L M. racemosus Allrg IgE kU/L Urine Color (Yellow) Urine Clarity (Clear) Urine pH (5-8) Ur Specific [place] (1.005-1.025) Urine Protein (Negative) mg/dL Urine Ketones (Negative) mg/dL Urine Blood (Negative) Urine Nitrite (Negative) Urine Bilirubin (Negative) Urine Urobilinogen (Up TO 0.2) EU/dL Ur Leukocyte Esterase (Negative) Urine RBC (0-2) HPF Urine WBC (0-5) HPF Ur Epithelial Cells (Negative) HPF Urine Crystals (Negative) HPF Urine Bacteria (Negative) HPF Urine Casts (Negative) LPF Urine Mucus (Negative) Ur Culture Indicated? Urine Glucose (Negative) mg/dL Vancomycin Trough Rheumatoid Factor (<12.0) IU/mL Cyclic Citrull Peptide (<5.0) U/mL ANNIE Titer ANNIE Titer 2 ANNIE Titer 3 ANNIE Interpretation (Negative) ANCA Immunofluorescen (Negative) ANCA Titer ANCA Pattern SS-A Antibody (<20.0) Units SS-B Antibody (<20.0) Units Scl-70 IgG Ab U Double Strand DNA Ab (<30.0) IU/mL Adenovirus DNA (Negative) Blastomyces Ag Result Blastomyces Ag Comment ng/mL COVID-19 Source SARS-CoV-2 (PCR) (Negative) Urine Histoplasma Ag U Histoplasma Ag Index ng/mL Human Metapneumovir RNA (Negative) Influenza Type A (PCR) (Negative) Influenza Type B (PCR) (Negative) L.pneumophila Antibody (Negative) Urine Legionella Ag (Negative) M. pneumoniae Source M. pneumoniae (PCR) Parainfluenza 1 (PCR) (Negative) Parainfluenza 2 (PCR) (Negative) Parainfluenza 3 (PCR) (Negative) Parainfluenza 4 (PCR) (Negative) RSV (PCR) (Negative) Resp Viral Spec Desc Rhinovirus (PCR) (Negative) B-(1,3)-D-Glucan Quant (<60 pg/mL) pg/mL B-(1,3)-D-Glucan Qual (Negative) Add-On Test Request Range/Units 10/31/21 11/02/21 11/02/21 06:25 06:30 06:45 WBC (4.4-10.8) 10^3/uL 9.97 RBC (4.36-5.78) 10^6/uL 3.49 L Hgb (13.5-17.5) g/dL 11.7 L Hct (40.0-50.0) % 35.0 L MCV (80-95) fL 100.3 H MCH (27.0-33.0) pg 33.5 H MCHC (32.0-36.0) % 33.4 RDW (11.8-14.1) % 13.0 Plt Count (130-400) 10^3/uL 146 MPV (8.0-11.0) fL 10.0 Immature Gran % 1.9 Neutrophils % 84.7 Lymphocytes % 7.5 Monocytes % 3.5 Eosinophils % 2.3 Basophils % 0.1 Nucleated RBC % % 0 Absolute Neutrophils (1.2-6.7) 10^3/uL 8.44 H Absolute Lymphocytes (1.2-3.4) 10^3/uL 0.75 L Absolute Monocytes (0.1-0.8) 10^3/uL 0.35 Absolute Eosinophils (0.0-0.7) 10^3/uL 0.23 Absolute Basophils (0.0-0.2) 10^3/uL 0.01 ESR (0-20) mm/hr Sample Site ABG Sample Site ABG pH (7.35-7.45) ABG pCO2 (35-45) mmHg ABG pO2 (80-105) mmHg ABG HCO3 (22-26) mmol/L ABG Total CO2 (23-27) mmol/L ABG O2 Saturation (95-98) % ABG Base Excess (-2-3) mmol/L VBG Lactate (0.6-1.4) mmol/L Oxygen Liter Flow FiO2 FiO2 (liters per min) L Sodium (136-145) mmol/L 140 Potassium (3.5-5.1) mmol/L 3.9 Chloride (98-107) mmol/L 102 Carbon Dioxide (21.0-32.0) mmol/L 29.3 Anion Gap (3-11) mmol/L 8.7 BUN (7-18) mg/dL 31 H Creatinine (0.70-1.30) mg/dL 1.4 H Estimated GFR/1.73 m2 (mL/min/1.73m2) 48.64 Glucose (74-106) mg/dL 101 Calcium (8.5-10.1) mg/dL 9.3 Magnesium (1.8-2.4) mg/dL Ferritin (22-322) ng/mL Total Bilirubin (0.2-1.0) mg/dL AST (15-37) U/L ALT (16-63) U/L Alkaline Phosphatase (46-116) U/L Troponin I (<or=60) ng/L C-Reactive Protein (0.0-0.3) mg/dL > 25.00 H NT-Pro-B Natriuret Pep (<300) pg/mL Total Protein (6.4-8.2) g/dL Albumin (3.4-5.0) g/dL Procalcitonin ng/mL TSH (0.36-3.74) uIU/mL C. albicans Allerg IgE kU/L M. racemosus Allrg IgE kU/L Urine Color (Yellow) Urine Clarity (Clear) Urine pH (5-8) Ur Specific [place] (1.005-1.025) Urine Protein (Negative) mg/dL Urine Ketones (Negative) mg/dL Urine Blood (Negative) Urine Nitrite (Negative) Urine Bilirubin (Negative) Urine Urobilinogen (Up TO 0.2) EU/dL Ur Leukocyte Esterase (Negative) Urine RBC (0-2) HPF Urine WBC (0-5) HPF Ur Epithelial Cells (Negative) HPF Urine Crystals (Negative) HPF Urine Bacteria (Negative) HPF Urine Casts (Negative) LPF Urine Mucus (Negative) Ur Culture Indicated? Urine Glucose (Negative) mg/dL Vancomycin Trough Rheumatoid Factor (<12.0) IU/mL Cyclic Citrull Peptide (<5.0) U/mL ANNIE Titer ANNIE Titer 2 ANNIE Titer 3 ANNIE Interpretation (Negative) ANCA Immunofluorescen (Negative) ANCA Titer ANCA Pattern SS-A Antibody (<20.0) Units SS-B Antibody (<20.0) Units Scl-70 IgG Ab U Double Strand DNA Ab (<30.0) IU/mL Adenovirus DNA (Negative) Blastomyces Ag Result Blastomyces Ag Comment ng/mL COVID-19 Source SARS-CoV-2 (PCR) (Negative) Urine Histoplasma Ag U Histoplasma Ag Index ng/mL Human Metapneumovir RNA (Negative) Influenza Type A (PCR) (Negative) Influenza Type B (PCR) (Negative) L.pneumophila Antibody (Negative) Negative Urine Legionella Ag (Negative) M. pneumoniae Source M. pneumoniae (PCR) Parainfluenza 1 (PCR) (Negative) Parainfluenza 2 (PCR) (Negative) Parainfluenza 3 (PCR) (Negative) Parainfluenza 4 (PCR) (Negative) RSV (PCR) (Negative) Resp Viral Spec Desc Rhinovirus (PCR) (Negative) B-(1,3)-D-Glucan Quant (<60 pg/mL) pg/mL B-(1,3)-D-Glucan Qual (Negative) Add-On Test Request Range/Units 11/02/21 11/02/21 11/02/21 06:45 06:45 06:45 WBC (4.4-10.8) 10^3/uL 7.69 RBC (4.36-5.78) 10^6/uL 3.59 L Hgb (13.5-17.5) g/dL 11.8 L Hct (40.0-50.0) % 36.7 L MCV (80-95) fL 102.2 H MCH (27.0-33.0) pg 32.9 MCHC (32.0-36.0) % 32.2 RDW (11.8-14.1) % 12.9 Plt Count (130-400) 10^3/uL 151 MPV (8.0-11.0) fL 9.8 Immature Gran % 1.6 Neutrophils % 78.6 Lymphocytes % 12.2 Monocytes % 3.4 Eosinophils % 3.9 Basophils % 0.3 Nucleated RBC % % 0 Absolute Neutrophils (1.2-6.7) 10^3/uL 6.05 Absolute Lymphocytes (1.2-3.4) 10^3/uL 0.94 L Absolute Monocytes (0.1-0.8) 10^3/uL 0.26 Absolute Eosinophils (0.0-0.7) 10^3/uL 0.30 Absolute Basophils (0.0-0.2) 10^3/uL 0.02 ESR (0-20) mm/hr 41 H Sample Site ABG Sample Site ABG pH (7.35-7.45) ABG pCO2 (35-45) mmHg ABG pO2 (80-105) mmHg ABG HCO3 (22-26) mmol/L ABG Total CO2 (23-27) mmol/L ABG O2 Saturation (95-98) % ABG Base Excess (-2-3) mmol/L VBG Lactate (0.6-1.4) mmol/L Oxygen Liter Flow FiO2 FiO2 (liters per min) L Sodium (136-145) mmol/L Potassium (3.5-5.1) mmol/L Chloride (98-107) mmol/L Carbon Dioxide (21.0-32.0) mmol/L Anion Gap (3-11) mmol/L BUN (7-18) mg/dL Creatinine (0.70-1.30) mg/dL Estimated GFR/1.73 m2 (mL/min/1.73m2) Glucose (74-106) mg/dL Calcium (8.5-10.1) mg/dL Magnesium (1.8-2.4) mg/dL Ferritin (22-322) ng/mL Total Bilirubin (0.2-1.0) mg/dL AST (15-37) U/L ALT (16-63) U/L Alkaline Phosphatase (46-116) U/L Troponin I (<or=60) ng/L C-Reactive Protein (0.0-0.3) mg/dL NT-Pro-B Natriuret Pep (<300) pg/mL Total Protein (6.4-8.2) g/dL Albumin (3.4-5.0) g/dL Procalcitonin ng/mL TSH (0.36-3.74) uIU/mL C. albicans Allerg IgE kU/L M. racemosus Allrg IgE kU/L Urine Color (Yellow) Urine Clarity (Clear) Urine pH (5-8) Ur Specific [place] (1.005-1.025) Urine Protein (Negative) mg/dL Urine Ketones (Negative) mg/dL Urine Blood (Negative) Urine Nitrite (Negative) Urine Bilirubin (Negative) Urine Urobilinogen (Up TO 0.2) EU/dL Ur Leukocyte Esterase (Negative) Urine RBC (0-2) HPF Urine WBC (0-5) HPF Ur Epithelial Cells (Negative) HPF Urine Crystals (Negative) HPF Urine Bacteria (Negative) HPF Urine Casts (Negative) LPF Urine Mucus (Negative) Ur Culture Indicated? Urine Glucose (Negative) mg/dL Vancomycin Trough Rheumatoid Factor (<12.0) IU/mL Cyclic Citrull Peptide (<5.0) U/mL ANNIE Titer ANNIE Titer 2 ANNIE Titer 3 ANNIE Interpretation (Negative) ANCA Immunofluorescen (Negative) ANCA Titer ANCA Pattern SS-A Antibody (<20.0) Units SS-B Antibody (<20.0) Units Scl-70 IgG Ab U Double Strand DNA Ab (<30.0) IU/mL Adenovirus DNA (Negative) Blastomyces Ag Result Blastomyces Ag Comment ng/mL COVID-19 Source SARS-CoV-2 (PCR) (Negative) Urine Histoplasma Ag U Histoplasma Ag Index ng/mL Human Metapneumovir RNA (Negative) Influenza Type A (PCR) (Negative) Influenza Type B (PCR) (Negative) L.pneumophila Antibody (Negative) Urine Legionella Ag (Negative) M. pneumoniae Source M. pneumoniae (PCR) Parainfluenza 1 (PCR) (Negative) Parainfluenza 2 (PCR) (Negative) Parainfluenza 3 (PCR) (Negative) Parainfluenza 4 (PCR) (Negative) RSV (PCR) (Negative) Resp Viral Spec Desc Rhinovirus (PCR) (Negative) B-(1,3)-D-Glucan Quant (<60 pg/mL) pg/mL B-(1,3)-D-Glucan Qual (Negative) Add-On Test Request done Range/Units 11/02/21 11/02/21 11/02/21 06:45 06:45 11:00 WBC (4.4-10.8) 10^3/uL RBC (4.36-5.78) 10^6/uL Hgb (13.5-17.5) g/dL Hct (40.0-50.0) % MCV (80-95) fL MCH (27.0-33.0) pg MCHC (32.0-36.0) % RDW (11.8-14.1) % Plt Count (130-400) 10^3/uL MPV (8.0-11.0) fL Immature Gran % Neutrophils % Lymphocytes % Monocytes % Eosinophils % Basophils % Nucleated RBC % % Absolute Neutrophils (1.2-6.7) 10^3/uL Absolute Lymphocytes (1.2-3.4) 10^3/uL Absolute Monocytes (0.1-0.8) 10^3/uL Absolute Eosinophils (0.0-0.7) 10^3/uL Absolute Basophils (0.0-0.2) 10^3/uL ESR (0-20) mm/hr Sample Site ABG Sample Site ABG pH (7.35-7.45) ABG pCO2 (35-45) mmHg ABG pO2 (80-105) mmHg ABG HCO3 (22-26) mmol/L ABG Total CO2 (23-27) mmol/L ABG O2 Saturation (95-98) % ABG Base Excess (-2-3) mmol/L VBG Lactate (0.6-1.4) mmol/L Oxygen Liter Flow FiO2 FiO2 (liters per min) L Sodium (136-145) mmol/L Potassium (3.5-5.1) mmol/L Chloride (98-107) mmol/L Carbon Dioxide (21.0-32.0) mmol/L Anion Gap (3-11) mmol/L BUN (7-18) mg/dL Creatinine (0.70-1.30) mg/dL Estimated GFR/1.73 m2 (mL/min/1.73m2) Glucose (74-106) mg/dL Calcium (8.5-10.1) mg/dL Magnesium (1.8-2.4) mg/dL Ferritin (22-322) ng/mL 538 H Total Bilirubin (0.2-1.0) mg/dL AST (15-37) U/L ALT (16-63) U/L Alkaline Phosphatase (46-116) U/L Troponin I (<or=60) ng/L C-Reactive Protein (0.0-0.3) mg/dL NT-Pro-B Natriuret Pep (<300) pg/mL 673 H Total Protein (6.4-8.2) g/dL Albumin (3.4-5.0) g/dL Procalcitonin ng/mL TSH (0.36-3.74) uIU/mL C. albicans Allerg IgE kU/L M. racemosus Allrg IgE kU/L Urine Color (Yellow) Urine Clarity (Clear) Urine pH (5-8) Ur Specific [place] (1.005-1.025) Urine Protein (Negative) mg/dL Urine Ketones (Negative) mg/dL Urine Blood (Negative) Urine Nitrite (Negative) Urine Bilirubin (Negative) Urine Urobilinogen (Up TO 0.2) EU/dL Ur Leukocyte Esterase (Negative) Urine RBC (0-2) HPF Urine WBC (0-5) HPF Ur Epithelial Cells (Negative) HPF Urine Crystals (Negative) HPF Urine Bacteria (Negative) HPF Urine Casts (Negative) LPF Urine Mucus (Negative) Ur Culture Indicated? Urine Glucose (Negative) mg/dL Vancomycin Trough Rheumatoid Factor (<12.0) IU/mL Cyclic Citrull Peptide (<5.0) U/mL ANNIE Titer ANNIE Titer 2 ANNIE Titer 3 ANNIE Interpretation (Negative) ANCA Immunofluorescen (Negative) ANCA Titer ANCA Pattern SS-A Antibody (<20.0) Units SS-B Antibody (<20.0) Units Scl-70 IgG Ab U Double Strand DNA Ab (<30.0) IU/mL Adenovirus DNA (Negative) Blastomyces Ag Result Blastomyces Ag Comment ng/mL COVID-19 Source Nasopharynx SARS-CoV-2 (PCR) (Negative) Negative Urine Histoplasma Ag U Histoplasma Ag Index ng/mL Human Metapneumovir RNA (Negative) Influenza Type A (PCR) (Negative) Influenza Type B (PCR) (Negative) L.pneumophila Antibody (Negative) Urine Legionella Ag (Negative) M. pneumoniae Source M. pneumoniae (PCR) Parainfluenza 1 (PCR) (Negative) Parainfluenza 2 (PCR) (Negative) Parainfluenza 3 (PCR) (Negative) Parainfluenza 4 (PCR) (Negative) RSV (PCR) (Negative) Resp Viral Spec Desc Rhinovirus (PCR) (Negative) B-(1,3)-D-Glucan Quant (<60 pg/mL) pg/mL B-(1,3)-D-Glucan Qual (Negative) Add-On Test Request Range/Units 11/02/21 11/02/21 11/02/21 15:30 15:30 21:09 WBC (4.4-10.8) 10^3/uL RBC (4.36-5.78) 10^6/uL Hgb (13.5-17.5) g/dL Hct (40.0-50.0) % MCV (80-95) fL MCH (27.0-33.0) pg MCHC (32.0-36.0) % RDW (11.8-14.1) % Plt Count (130-400) 10^3/uL MPV (8.0-11.0) fL Immature Gran % Neutrophils % Lymphocytes % Monocytes % Eosinophils % Basophils % Nucleated RBC % % Absolute Neutrophils (1.2-6.7) 10^3/uL Absolute Lymphocytes (1.2-3.4) 10^3/uL Absolute Monocytes (0.1-0.8) 10^3/uL Absolute Eosinophils (0.0-0.7) 10^3/uL Absolute Basophils (0.0-0.2) 10^3/uL ESR (0-20) mm/hr Sample Site ABG Sample Site ABG pH (7.35-7.45) ABG pCO2 (35-45) mmHg ABG pO2 (80-105) mmHg ABG HCO3 (22-26) mmol/L ABG Total CO2 (23-27) mmol/L ABG O2 Saturation (95-98) % ABG Base Excess (-2-3) mmol/L VBG Lactate (0.6-1.4) mmol/L Oxygen Liter Flow FiO2 FiO2 (liters per min) L Sodium (136-145) mmol/L Potassium (3.5-5.1) mmol/L Chloride (98-107) mmol/L Carbon Dioxide (21.0-32.0) mmol/L Anion Gap (3-11) mmol/L BUN (7-18) mg/dL Creatinine (0.70-1.30) mg/dL Estimated GFR/1.73 m2 (mL/min/1.73m2) Glucose (74-106) mg/dL Calcium (8.5-10.1) mg/dL Magnesium (1.8-2.4) mg/dL Ferritin (22-322) ng/mL Total Bilirubin (0.2-1.0) mg/dL AST (15-37) U/L ALT (16-63) U/L Alkaline Phosphatase (46-116) U/L Troponin I (<or=60) ng/L C-Reactive Protein (0.0-0.3) mg/dL NT-Pro-B Natriuret Pep (<300) pg/mL Total Protein (6.4-8.2) g/dL Albumin (3.4-5.0) g/dL Procalcitonin ng/mL TSH (0.36-3.74) uIU/mL C. albicans Allerg IgE kU/L M. racemosus Allrg IgE kU/L Urine Color (Yellow) Urine Clarity (Clear) Urine pH (5-8) Ur Specific [place] (1.005-1.025) Urine Protein (Negative) mg/dL Urine Ketones (Negative) mg/dL Urine Blood (Negative) Urine Nitrite (Negative) Urine Bilirubin (Negative) Urine Urobilinogen (Up TO 0.2) EU/dL Ur Leukocyte Esterase (Negative) Urine RBC (0-2) HPF Urine WBC (0-5) HPF Ur Epithelial Cells (Negative) HPF Urine Crystals (Negative) HPF Urine Bacteria (Negative) HPF Urine Casts (Negative) LPF Urine Mucus (Negative) Ur Culture Indicated? Urine Glucose (Negative) mg/dL Vancomycin Trough Rheumatoid Factor (<12.0) IU/mL Cyclic Citrull Peptide (<5.0) U/mL ANNIE Titer ANNIE Titer 2 ANNIE Titer 3 ANNIE Interpretation (Negative) ANCA Immunofluorescen (Negative) ANCA Titer ANCA Pattern SS-A Antibody (<20.0) Units SS-B Antibody (<20.0) Units Scl-70 IgG Ab U Double Strand DNA Ab (<30.0) IU/mL Adenovirus DNA (Negative) Negative Blastomyces Ag Result Blastomyces Ag Comment ng/mL COVID-19 Source SARS-CoV-2 (PCR) (Negative) Urine Histoplasma Ag U Histoplasma Ag Index ng/mL Human Metapneumovir RNA (Negative) Negative Influenza Type A (PCR) (Negative) Influenza Type B (PCR) (Negative) L.pneumophila Antibody (Negative) Urine Legionella Ag (Negative) M. pneumoniae Source nasal Cancelled M. pneumoniae (PCR) Negative Cancelled Parainfluenza 1 (PCR) (Negative) Negative Parainfluenza 2 (PCR) (Negative) Negative Parainfluenza 3 (PCR) (Negative) Negative Parainfluenza 4 (PCR) (Negative) Negative RSV (PCR) (Negative) Resp Viral Spec Desc Not Applicable Rhinovirus (PCR) (Negative) Negative B-(1,3)-D-Glucan Quant (<60 pg/mL) pg/mL B-(1,3)-D-Glucan Qual (Negative) Add-On Test Request Range/Units 11/03/21 11/03/21 11/04/21 06:30 06:30 06:40 WBC (4.4-10.8) 10^3/uL 10.34 D RBC (4.36-5.78) 10^6/uL 3.37 L Hgb (13.5-17.5) g/dL 11.0 L Hct (40.0-50.0) % 33.6 L MCV (80-95) fL 99.7 H MCH (27.0-33.0) pg 32.6 MCHC (32.0-36.0) % 32.7 RDW (11.8-14.1) % 13.0 Plt Count (130-400) 10^3/uL 146 MPV (8.0-11.0) fL 10.2 Immature Gran % 1.1 Neutrophils % 94.4 Lymphocytes % 3.3 Monocytes % 1.0 Eosinophils % 0.0 Basophils % 0.2 Nucleated RBC % % 0 Absolute Neutrophils (1.2-6.7) 10^3/uL 9.76 H Absolute Lymphocytes (1.2-3.4) 10^3/uL 0.34 L Absolute Monocytes (0.1-0.8) 10^3/uL 0.10 Absolute Eosinophils (0.0-0.7) 10^3/uL 0.00 Absolute Basophils (0.0-0.2) 10^3/uL 0.02 ESR (0-20) mm/hr Sample Site ABG Sample Site ABG pH (7.35-7.45) ABG pCO2 (35-45) mmHg ABG pO2 (80-105) mmHg ABG HCO3 (22-26) mmol/L ABG Total CO2 (23-27) mmol/L ABG O2 Saturation (95-98) % ABG Base Excess (-2-3) mmol/L VBG Lactate (0.6-1.4) mmol/L Oxygen Liter Flow FiO2 FiO2 (liters per min) L Sodium (136-145) mmol/L 140 142 Potassium (3.5-5.1) mmol/L 3.9 3.4 L Chloride (98-107) mmol/L 102 104 Carbon Dioxide (21.0-32.0) mmol/L 25.8 24.5 Anion Gap (3-11) mmol/L 12.2 H 13.5 H BUN (7-18) mg/dL 33 H 34 H Creatinine (0.70-1.30) mg/dL 1.6 H 1.7 H Estimated GFR/1.73 m2 (mL/min/1.73m2) 41.69 38.88 Glucose (74-106) mg/dL 197 H D 203 H Calcium (8.5-10.1) mg/dL 8.8 9.2 Magnesium (1.8-2.4) mg/dL Ferritin (22-322) ng/mL Total Bilirubin (0.2-1.0) mg/dL AST (15-37) U/L ALT (16-63) U/L Alkaline Phosphatase (46-116) U/L Troponin I (<or=60) ng/L C-Reactive Protein (0.0-0.3) mg/dL NT-Pro-B Natriuret Pep (<300) pg/mL Total Protein (6.4-8.2) g/dL Albumin (3.4-5.0) g/dL Procalcitonin ng/mL TSH (0.36-3.74) uIU/mL 0.50 C. albicans Allerg IgE kU/L M. racemosus Allrg IgE kU/L Urine Color (Yellow) Urine Clarity (Clear) Urine pH (5-8) Ur Specific [place] (1.005-1.025) Urine Protein (Negative) mg/dL Urine Ketones (Negative) mg/dL Urine Blood (Negative) Urine Nitrite (Negative) Urine Bilirubin (Negative) Urine Urobilinogen (Up TO 0.2) EU/dL Ur Leukocyte Esterase (Negative) Urine RBC (0-2) HPF Urine WBC (0-5) HPF Ur Epithelial Cells (Negative) HPF Urine Crystals (Negative) HPF Urine Bacteria (Negative) HPF Urine Casts (Negative) LPF Urine Mucus (Negative) Ur Culture Indicated? Urine Glucose (Negative) mg/dL Vancomycin Trough Rheumatoid Factor (<12.0) IU/mL Cyclic Citrull Peptide (<5.0) U/mL ANNIE Titer ANNIE Titer 2 ANNIE Titer 3 ANNIE Interpretation (Negative) ANCA Immunofluorescen (Negative) ANCA Titer ANCA Pattern SS-A Antibody (<20.0) Units SS-B Antibody (<20.0) Units Scl-70 IgG Ab U Double Strand DNA Ab (<30.0) IU/mL Adenovirus DNA (Negative) Blastomyces Ag Result Blastomyces Ag Comment ng/mL COVID-19 Source SARS-CoV-2 (PCR) (Negative) Urine Histoplasma Ag U Histoplasma Ag Index ng/mL Human Metapneumovir RNA (Negative) Influenza Type A (PCR) (Negative) Influenza Type B (PCR) (Negative) L.pneumophila Antibody (Negative) Urine Legionella Ag (Negative) M. pneumoniae Source M. pneumoniae (PCR) Parainfluenza 1 (PCR) (Negative) Parainfluenza 2 (PCR) (Negative) Parainfluenza 3 (PCR) (Negative) Parainfluenza 4 (PCR) (Negative) RSV (PCR) (Negative) Resp Viral Spec Desc Rhinovirus (PCR) (Negative) B-(1,3)-D-Glucan Quant (<60 pg/mL) pg/mL B-(1,3)-D-Glucan Qual (Negative) Add-On Test Request Range/Units 11/04/21 11/04/21 11/04/21 06:40 19:35 19:35 WBC (4.4-10.8) 10^3/uL 14.11 H D RBC (4.36-5.78) 10^6/uL 3.38 L Hgb (13.5-17.5) g/dL 11.1 L Hct (40.0-50.0) % 33.6 L MCV (80-95) fL 99.4 H MCH (27.0-33.0) pg 32.8 MCHC (32.0-36.0) % 33.0 RDW (11.8-14.1) % 13.0 Plt Count (130-400) 10^3/uL 179 MPV (8.0-11.0) fL 10.8 Immature Gran % 0.9 Neutrophils % 93.0 Lymphocytes % 2.7 Monocytes % 3.3 Eosinophils % 0.0 Basophils % 0.1 Nucleated RBC % % 0 Absolute Neutrophils (1.2-6.7) 10^3/uL 13.12 H Absolute Lymphocytes (1.2-3.4) 10^3/uL 0.38 L Absolute Monocytes (0.1-0.8) 10^3/uL 0.47 Absolute Eosinophils (0.0-0.7) 10^3/uL 0.00 Absolute Basophils (0.0-0.2) 10^3/uL 0.01 ESR (0-20) mm/hr Sample Site ABG Sample Site ABG pH (7.35-7.45) ABG pCO2 (35-45) mmHg ABG pO2 (80-105) mmHg ABG HCO3 (22-26) mmol/L ABG Total CO2 (23-27) mmol/L ABG O2 Saturation (95-98) % ABG Base Excess (-2-3) mmol/L VBG Lactate (0.6-1.4) mmol/L Oxygen Liter Flow FiO2 FiO2 (liters per min) L Sodium (136-145) mmol/L Potassium (3.5-5.1) mmol/L Chloride (98-107) mmol/L Carbon Dioxide (21.0-32.0) mmol/L Anion Gap (3-11) mmol/L BUN (7-18) mg/dL Creatinine (0.70-1.30) mg/dL Estimated GFR/1.73 m2 (mL/min/1.73m2) Glucose (74-106) mg/dL Calcium (8.5-10.1) mg/dL Magnesium (1.8-2.4) mg/dL Ferritin (22-322) ng/mL Total Bilirubin (0.2-1.0) mg/dL AST (15-37) U/L ALT (16-63) U/L Alkaline Phosphatase (46-116) U/L Troponin I (<or=60) ng/L C-Reactive Protein (0.0-0.3) mg/dL NT-Pro-B Natriuret Pep (<300) pg/mL Total Protein (6.4-8.2) g/dL Albumin (3.4-5.0) g/dL Procalcitonin ng/mL TSH (0.36-3.74) uIU/mL C. albicans Allerg IgE kU/L M. racemosus Allrg IgE kU/L Urine Color (Yellow) Yellow Urine Clarity (Clear) Sl Cloudy Urine pH (5-8) 5.5 Ur Specific [place] (1.005-1.025) >= 1.030 H Urine Protein (Negative) mg/dL 30 H Urine Ketones (Negative) mg/dL Negative Urine Blood (Negative) Large H Urine Nitrite (Negative) Negative Urine Bilirubin (Negative) Negative Urine Urobilinogen (Up TO 0.2) EU/dL 0.2 Ur Leukocyte Esterase (Negative) Negative Urine RBC (0-2) HPF >50 H Urine WBC (0-5) HPF 0-2 Ur Epithelial Cells (Negative) HPF Negative Urine Crystals (Negative) HPF Moderate Uric Acid Urine Bacteria (Negative) HPF Few Urine Casts (Negative) LPF Urine Mucus (Negative) Negative Ur Culture Indicated? No Urine Glucose (Negative) mg/dL Negative Vancomycin Trough Rheumatoid Factor (<12.0) IU/mL Cyclic Citrull Peptide (<5.0) U/mL ANNIE Titer ANNIE Titer 2 ANNIE Titer 3 ANNIE Interpretation (Negative) ANCA Immunofluorescen (Negative) ANCA Titer ANCA Pattern SS-A Antibody (<20.0) Units SS-B Antibody (<20.0) Units Scl-70 IgG Ab U Double Strand DNA Ab (<30.0) IU/mL Adenovirus DNA (Negative) Blastomyces Ag Result Blastomyces Ag Comment ng/mL COVID-19 Source SARS-CoV-2 (PCR) (Negative) Urine Histoplasma Ag U Histoplasma Ag Index ng/mL Human Metapneumovir RNA (Negative) Influenza Type A (PCR) (Negative) Influenza Type B (PCR) (Negative) L.pneumophila Antibody (Negative) Urine Legionella Ag (Negative) Negative M. pneumoniae Source M. pneumoniae (PCR) Parainfluenza 1 (PCR) (Negative) Parainfluenza 2 (PCR) (Negative) Parainfluenza 3 (PCR) (Negative) Parainfluenza 4 (PCR) (Negative) RSV (PCR) (Negative) Resp Viral Spec Desc Rhinovirus (PCR) (Negative) B-(1,3)-D-Glucan Quant (<60 pg/mL) pg/mL B-(1,3)-D-Glucan Qual (Negative) Add-On Test Request Range/Units 11/04/21 11/04/21 11/05/21 19:35 19:35 07:50 WBC (4.4-10.8) 10^3/uL RBC (4.36-5.78) 10^6/uL Hgb (13.5-17.5) g/dL Hct (40.0-50.0) % MCV (80-95) fL MCH (27.0-33.0) pg MCHC (32.0-36.0) % RDW (11.8-14.1) % Plt Count (130-400) 10^3/uL MPV (8.0-11.0) fL Immature Gran % Neutrophils % Lymphocytes % Monocytes % Eosinophils % Basophils % Nucleated RBC % % Absolute Neutrophils (1.2-6.7) 10^3/uL Absolute Lymphocytes (1.2-3.4) 10^3/uL Absolute Monocytes (0.1-0.8) 10^3/uL Absolute Eosinophils (0.0-0.7) 10^3/uL Absolute Basophils (0.0-0.2) 10^3/uL ESR (0-20) mm/hr Sample Site ABG Sample Site ABG pH (7.35-7.45) ABG pCO2 (35-45) mmHg ABG pO2 (80-105) mmHg ABG HCO3 (22-26) mmol/L ABG Total CO2 (23-27) mmol/L ABG O2 Saturation (95-98) % ABG Base Excess (-2-3) mmol/L VBG Lactate (0.6-1.4) mmol/L Oxygen Liter Flow FiO2 FiO2 (liters per min) L Sodium (136-145) mmol/L 141 Potassium (3.5-5.1) mmol/L 3.4 L Chloride (98-107) mmol/L 103 Carbon Dioxide (21.0-32.0) mmol/L 23.6 Anion Gap (3-11) mmol/L 14.4 H BUN (7-18) mg/dL 41 H Creatinine (0.70-1.30) mg/dL 2.0 H Estimated GFR/1.73 m2 (mL/min/1.73m2) 32.23 Glucose (74-106) mg/dL 180 H Calcium (8.5-10.1) mg/dL 9.5 Magnesium (1.8-2.4) mg/dL Ferritin (22-322) ng/mL Total Bilirubin (0.2-1.0) mg/dL AST (15-37) U/L ALT (16-63) U/L Alkaline Phosphatase (46-116) U/L Troponin I (<or=60) ng/L C-Reactive Protein (0.0-0.3) mg/dL NT-Pro-B Natriuret Pep (<300) pg/mL Total Protein (6.4-8.2) g/dL Albumin (3.4-5.0) g/dL Procalcitonin ng/mL TSH (0.36-3.74) uIU/mL C. albicans Allerg IgE kU/L M. racemosus Allrg IgE kU/L Urine Color (Yellow) Urine Clarity (Clear) Urine pH (5-8) Ur Specific [place] (1.005-1.025) Urine Protein (Negative) mg/dL Urine Ketones (Negative) mg/dL Urine Blood (Negative) Urine Nitrite (Negative) Urine Bilirubin (Negative) Urine Urobilinogen (Up TO 0.2) EU/dL Ur Leukocyte Esterase (Negative) Urine RBC (0-2) HPF Urine WBC (0-5) HPF Ur Epithelial Cells (Negative) HPF Urine Crystals (Negative) HPF Urine Bacteria (Negative) HPF Urine Casts (Negative) LPF Urine Mucus (Negative) Ur Culture Indicated? Urine Glucose (Negative) mg/dL Vancomycin Trough Rheumatoid Factor (<12.0) IU/mL Cyclic Citrull Peptide (<5.0) U/mL ANNIE Titer ANNIE Titer 2 ANNIE Titer 3 ANNIE Interpretation (Negative) ANCA Immunofluorescen (Negative) ANCA Titer ANCA Pattern SS-A Antibody (<20.0) Units SS-B Antibody (<20.0) Units Scl-70 IgG Ab U Double Strand DNA Ab (<30.0) IU/mL Adenovirus DNA (Negative) Blastomyces Ag Result Not Detected Blastomyces Ag Comment ng/mL Not Detected COVID-19 Source SARS-CoV-2 (PCR) (Negative) Urine Histoplasma Ag Not Detected U Histoplasma Ag Index ng/mL Not Detected Human Metapneumovir RNA (Negative) Influenza Type A (PCR) (Negative) Influenza Type B (PCR) (Negative) L.pneumophila Antibody (Negative) Urine Legionella Ag (Negative) M. pneumoniae Source M. pneumoniae (PCR) Parainfluenza 1 (PCR) (Negative) Parainfluenza 2 (PCR) (Negative) Parainfluenza 3 (PCR) (Negative) Parainfluenza 4 (PCR) (Negative) RSV (PCR) (Negative) Resp Viral Spec Desc Rhinovirus (PCR) (Negative) B-(1,3)-D-Glucan Quant (<60 pg/mL) pg/mL B-(1,3)-D-Glucan Qual (Negative) Add-On Test Request Range/Units 11/05/21 11/05/21 11/05/21 07:50 07:50 07:50 WBC (4.4-10.8) 10^3/uL RBC (4.36-5.78) 10^6/uL Hgb (13.5-17.5) g/dL Hct (40.0-50.0) % MCV (80-95) fL MCH (27.0-33.0) pg MCHC (32.0-36.0) % RDW (11.8-14.1) % Plt Count (130-400) 10^3/uL MPV (8.0-11.0) fL Immature Gran % Neutrophils % Lymphocytes % Monocytes % Eosinophils % Basophils % Nucleated RBC % % Absolute Neutrophils (1.2-6.7) 10^3/uL Absolute Lymphocytes (1.2-3.4) 10^3/uL Absolute Monocytes (0.1-0.8) 10^3/uL Absolute Eosinophils (0.0-0.7) 10^3/uL Absolute Basophils (0.0-0.2) 10^3/uL ESR (0-20) mm/hr 29 H Sample Site ABG Sample Site ABG pH (7.35-7.45) ABG pCO2 (35-45) mmHg ABG pO2 (80-105) mmHg ABG HCO3 (22-26) mmol/L ABG Total CO2 (23-27) mmol/L ABG O2 Saturation (95-98) % ABG Base Excess (-2-3) mmol/L VBG Lactate (0.6-1.4) mmol/L Oxygen Liter Flow FiO2 FiO2 (liters per min) L Sodium (136-145) mmol/L Potassium (3.5-5.1) mmol/L Chloride (98-107) mmol/L Carbon Dioxide (21.0-32.0) mmol/L Anion Gap (3-11) mmol/L BUN (7-18) mg/dL Creatinine (0.70-1.30) mg/dL Estimated GFR/1.73 m2 (mL/min/1.73m2) Glucose (74-106) mg/dL Calcium (8.5-10.1) mg/dL Magnesium (1.8-2.4) mg/dL Ferritin (22-322) ng/mL Total Bilirubin (0.2-1.0) mg/dL AST (15-37) U/L ALT (16-63) U/L Alkaline Phosphatase (46-116) U/L Troponin I (<or=60) ng/L C-Reactive Protein (0.0-0.3) mg/dL 9.36 H NT-Pro-B Natriuret Pep (<300) pg/mL Total Protein (6.4-8.2) g/dL Albumin (3.4-5.0) g/dL Procalcitonin ng/mL TSH (0.36-3.74) uIU/mL C. albicans Allerg IgE kU/L M. racemosus Allrg IgE kU/L Urine Color (Yellow) Urine Clarity (Clear) Urine pH (5-8) Ur Specific [place] (1.005-1.025) Urine Protein (Negative) mg/dL Urine Ketones (Negative) mg/dL Urine Blood (Negative) Urine Nitrite (Negative) Urine Bilirubin (Negative) Urine Urobilinogen (Up TO 0.2) EU/dL Ur Leukocyte Esterase (Negative) Urine RBC (0-2) HPF Urine WBC (0-5) HPF Ur Epithelial Cells (Negative) HPF Urine Crystals (Negative) HPF Urine Bacteria (Negative) HPF Urine Casts (Negative) LPF Urine Mucus (Negative) Ur Culture Indicated? Urine Glucose (Negative) mg/dL Vancomycin Trough Rheumatoid Factor (<12.0) IU/mL Cyclic Citrull Peptide (<5.0) U/mL ANNIE Titer ANNIE Titer 2 ANNIE Titer 3 ANNIE Interpretation (Negative) ANCA Immunofluorescen (Negative) ANCA Titer ANCA Pattern SS-A Antibody (<20.0) Units 1.0 SS-B Antibody (<20.0) Units Scl-70 IgG Ab U Double Strand DNA Ab (<30.0) IU/mL <12.3 Adenovirus DNA (Negative) Blastomyces Ag Result Blastomyces Ag Comment ng/mL COVID-19 Source SARS-CoV-2 (PCR) (Negative) Urine Histoplasma Ag U Histoplasma Ag Index ng/mL Human Metapneumovir RNA (Negative) Influenza Type A (PCR) (Negative) Influenza Type B (PCR) (Negative) L.pneumophila Antibody (Negative) Urine Legionella Ag (Negative) M. pneumoniae Source M. pneumoniae (PCR) Parainfluenza 1 (PCR) (Negative) Parainfluenza 2 (PCR) (Negative) Parainfluenza 3 (PCR) (Negative) Parainfluenza 4 (PCR) (Negative) RSV (PCR) (Negative) Resp Viral Spec Desc Rhinovirus (PCR) (Negative) B-(1,3)-D-Glucan Quant (<60 pg/mL) pg/mL B-(1,3)-D-Glucan Qual (Negative) Add-On Test Request Range/Units 11/05/21 11/05/21 11/05/21 08:35 08:35 08:35 WBC (4.4-10.8) 10^3/uL RBC (4.36-5.78) 10^6/uL Hgb (13.5-17.5) g/dL Hct (40.0-50.0) % MCV (80-95) fL MCH (27.0-33.0) pg MCHC (32.0-36.0) % RDW (11.8-14.1) % Plt Count (130-400) 10^3/uL MPV (8.0-11.0) fL Immature Gran % Neutrophils % Lymphocytes % Monocytes % Eosinophils % Basophils % Nucleated RBC % % Absolute Neutrophils (1.2-6.7) 10^3/uL Absolute Lymphocytes (1.2-3.4) 10^3/uL Absolute Monocytes (0.1-0.8) 10^3/uL Absolute Eosinophils (0.0-0.7) 10^3/uL Absolute Basophils (0.0-0.2) 10^3/uL ESR (0-20) mm/hr Sample Site ABG Sample Site ABG pH (7.35-7.45) ABG pCO2 (35-45) mmHg ABG pO2 (80-105) mmHg ABG HCO3 (22-26) mmol/L ABG Total CO2 (23-27) mmol/L ABG O2 Saturation (95-98) % ABG Base Excess (-2-3) mmol/L VBG Lactate (0.6-1.4) mmol/L Oxygen Liter Flow FiO2 FiO2 (liters per min) L Sodium (136-145) mmol/L Potassium (3.5-5.1) mmol/L Chloride (98-107) mmol/L Carbon Dioxide (21.0-32.0) mmol/L Anion Gap (3-11) mmol/L BUN (7-18) mg/dL Creatinine (0.70-1.30) mg/dL Estimated GFR/1.73 m2 (mL/min/1.73m2) Glucose (74-106) mg/dL Calcium (8.5-10.1) mg/dL Magnesium (1.8-2.4) mg/dL Ferritin (22-322) ng/mL Total Bilirubin (0.2-1.0) mg/dL AST (15-37) U/L ALT (16-63) U/L Alkaline Phosphatase (46-116) U/L Troponin I (<or=60) ng/L C-Reactive Protein (0.0-0.3) mg/dL NT-Pro-B Natriuret Pep (<300) pg/mL Total Protein (6.4-8.2) g/dL Albumin (3.4-5.0) g/dL Procalcitonin ng/mL TSH (0.36-3.74) uIU/mL C. albicans Allerg IgE kU/L M. racemosus Allrg IgE kU/L Urine Color (Yellow) Urine Clarity (Clear) Urine pH (5-8) Ur Specific [place] (1.005-1.025) Urine Protein (Negative) mg/dL Urine Ketones (Negative) mg/dL Urine Blood (Negative) Urine Nitrite (Negative) Urine Bilirubin (Negative) Urine Urobilinogen (Up TO 0.2) EU/dL Ur Leukocyte Esterase (Negative) Urine RBC (0-2) HPF Urine WBC (0-5) HPF Ur Epithelial Cells (Negative) HPF Urine Crystals (Negative) HPF Urine Bacteria (Negative) HPF Urine Casts (Negative) LPF Urine Mucus (Negative) Ur Culture Indicated? Urine Glucose (Negative) mg/dL Vancomycin Trough Rheumatoid Factor (<12.0) IU/mL 9.3 Cyclic Citrull Peptide (<5.0) U/mL <2.5 ANNIE Titer 1:160 Speckled ANNIE Titer 2 Not Applicable ANNIE Titer 3 Not Applicable ANNIE Interpretation (Negative) Positive A ANCA Immunofluorescen (Negative) Negative ANCA Titer Not Applicable ANCA Pattern Not Applicable SS-A Antibody (<20.0) Units SS-B Antibody (<20.0) Units 0.8 Scl-70 IgG Ab U <0.2 Double Strand DNA Ab (<30.0) IU/mL Adenovirus DNA (Negative) Blastomyces Ag Result Blastomyces Ag Comment ng/mL COVID-19 Source SARS-CoV-2 (PCR) (Negative) Urine Histoplasma Ag U Histoplasma Ag Index ng/mL Human Metapneumovir RNA (Negative) Influenza Type A (PCR) (Negative) Influenza Type B (PCR) (Negative) L.pneumophila Antibody (Negative) Urine Legionella Ag (Negative) M. pneumoniae Source M. pneumoniae (PCR) Parainfluenza 1 (PCR) (Negative) Parainfluenza 2 (PCR) (Negative) Parainfluenza 3 (PCR) (Negative) Parainfluenza 4 (PCR) (Negative) RSV (PCR) (Negative) Resp Viral Spec Desc Rhinovirus (PCR) (Negative) B-(1,3)-D-Glucan Quant (<60 pg/mL) pg/mL 149 A B-(1,3)-D-Glucan Qual (Negative) Positive A Add-On Test Request Range/Units 11/05/21 11/06/21 11/06/21 13:00 06:21 06:21 WBC (4.4-10.8) 10^3/uL 10.75 RBC (4.36-5.78) 10^6/uL 3.44 L Hgb (13.5-17.5) g/dL 11.3 L Hct (40.0-50.0) % 34.4 L MCV (80-95) fL 100.0 H MCH (27.0-33.0) pg 32.8 MCHC (32.0-36.0) % 32.8 RDW (11.8-14.1) % 13.2 Plt Count (130-400) 10^3/uL 239 MPV (8.0-11.0) fL 10.5 Immature Gran % 3.1 Neutrophils % 85.9 Lymphocytes % 4.8 Monocytes % 5.9 Eosinophils % 0.1 Basophils % 0.2 Nucleated RBC % % 0 Absolute Neutrophils (1.2-6.7) 10^3/uL 9.24 H Absolute Lymphocytes (1.2-3.4) 10^3/uL 0.52 L Absolute Monocytes (0.1-0.8) 10^3/uL 0.63 Absolute Eosinophils (0.0-0.7) 10^3/uL 0.01 Absolute Basophils (0.0-0.2) 10^3/uL 0.02 ESR (0-20) mm/hr Sample Site ABG Sample Site ABG pH (7.35-7.45) ABG pCO2 (35-45) mmHg ABG pO2 (80-105) mmHg ABG HCO3 (22-26) mmol/L ABG Total CO2 (23-27) mmol/L ABG O2 Saturation (95-98) % ABG Base Excess (-2-3) mmol/L VBG Lactate (0.6-1.4) mmol/L Oxygen Liter Flow FiO2 FiO2 (liters per min) L Sodium (136-145) mmol/L 142 Potassium (3.5-5.1) mmol/L 3.3 L Chloride (98-107) mmol/L 106 Carbon Dioxide (21.0-32.0) mmol/L 24.3 Anion Gap (3-11) mmol/L 11.7 H BUN (7-18) mg/dL 40 H Creatinine (0.70-1.30) mg/dL 1.6 H Estimated GFR/1.73 m2 (mL/min/1.73m2) 41.69 Glucose (74-106) mg/dL 147 H Calcium (8.5-10.1) mg/dL 9.3 Magnesium (1.8-2.4) mg/dL Ferritin (22-322) ng/mL Total Bilirubin (0.2-1.0) mg/dL AST (15-37) U/L ALT (16-63) U/L Alkaline Phosphatase (46-116) U/L Troponin I (<or=60) ng/L C-Reactive Protein (0.0-0.3) mg/dL NT-Pro-B Natriuret Pep (<300) pg/mL Total Protein (6.4-8.2) g/dL Albumin (3.4-5.0) g/dL Procalcitonin ng/mL TSH (0.36-3.74) uIU/mL C. albicans Allerg IgE kU/L M. racemosus Allrg IgE kU/L Urine Color (Yellow) Urine Clarity (Clear) Urine pH (5-8) Ur Specific [place] (1.005-1.025) Urine Protein (Negative) mg/dL Urine Ketones (Negative) mg/dL Urine Blood (Negative) Urine Nitrite (Negative) Urine Bilirubin (Negative) Urine Urobilinogen (Up TO 0.2) EU/dL Ur Leukocyte Esterase (Negative) Urine RBC (0-2) HPF Urine WBC (0-5) HPF Ur Epithelial Cells (Negative) HPF Urine Crystals (Negative) HPF Urine Bacteria (Negative) HPF Urine Casts (Negative) LPF Urine Mucus (Negative) Ur Culture Indicated? Urine Glucose (Negative) mg/dL Vancomycin Trough Cancelled Rheumatoid Factor (<12.0) IU/mL Cyclic Citrull Peptide (<5.0) U/mL ANNIE Titer ANNIE Titer 2 ANNIE Titer 3 ANNIE Interpretation (Negative) ANCA Immunofluorescen (Negative) ANCA Titer ANCA Pattern SS-A Antibody (<20.0) Units SS-B Antibody (<20.0) Units Scl-70 IgG Ab U Double Strand DNA Ab (<30.0) IU/mL Adenovirus DNA (Negative) Blastomyces Ag Result Blastomyces Ag Comment ng/mL COVID-19 Source SARS-CoV-2 (PCR) (Negative) Urine Histoplasma Ag U Histoplasma Ag Index ng/mL Human Metapneumovir RNA (Negative) Influenza Type A (PCR) (Negative) Influenza Type B (PCR) (Negative) L.pneumophila Antibody (Negative) Urine Legionella Ag (Negative) M. pneumoniae Source M. pneumoniae (PCR) Parainfluenza 1 (PCR) (Negative) Parainfluenza 2 (PCR) (Negative) Parainfluenza 3 (PCR) (Negative) Parainfluenza 4 (PCR) (Negative) RSV (PCR) (Negative) Resp Viral Spec Desc Rhinovirus (PCR) (Negative) B-(1,3)-D-Glucan Quant (<60 pg/mL) pg/mL B-(1,3)-D-Glucan Qual (Negative) Add-On Test Request Range/Units 11/07/21 11/07/21 11/07/21 12:45 12:45 16:25 WBC (4.4-10.8) 10^3/uL RBC (4.36-5.78) 10^6/uL Hgb (13.5-17.5) g/dL Hct (40.0-50.0) % MCV (80-95) fL MCH (27.0-33.0) pg MCHC (32.0-36.0) % RDW (11.8-14.1) % Plt Count (130-400) 10^3/uL MPV (8.0-11.0) fL Immature Gran % Neutrophils % Lymphocytes % Monocytes % Eosinophils % Basophils % Nucleated RBC % % Absolute Neutrophils (1.2-6.7) 10^3/uL Absolute Lymphocytes (1.2-3.4) 10^3/uL Absolute Monocytes (0.1-0.8) 10^3/uL Absolute Eosinophils (0.0-0.7) 10^3/uL Absolute Basophils (0.0-0.2) 10^3/uL ESR (0-20) mm/hr Sample Site ABG Sample Site ABG pH (7.35-7.45) ABG pCO2 (35-45) mmHg ABG pO2 (80-105) mmHg ABG HCO3 (22-26) mmol/L ABG Total CO2 (23-27) mmol/L ABG O2 Saturation (95-98) % ABG Base Excess (-2-3) mmol/L VBG Lactate (0.6-1.4) mmol/L Oxygen Liter Flow FiO2 FiO2 (liters per min) L Sodium (136-145) mmol/L Potassium (3.5-5.1) mmol/L Chloride (98-107) mmol/L Carbon Dioxide (21.0-32.0) mmol/L Anion Gap (3-11) mmol/L BUN (7-18) mg/dL Creatinine (0.70-1.30) mg/dL Estimated GFR/1.73 m2 (mL/min/1.73m2) Glucose (74-106) mg/dL Calcium (8.5-10.1) mg/dL Magnesium (1.8-2.4) mg/dL Ferritin (22-322) ng/mL Total Bilirubin (0.2-1.0) mg/dL AST (15-37) U/L ALT (16-63) U/L Alkaline Phosphatase (46-116) U/L Troponin I (<or=60) ng/L C-Reactive Protein (0.0-0.3) mg/dL NT-Pro-B Natriuret Pep (<300) pg/mL Total Protein (6.4-8.2) g/dL Albumin (3.4-5.0) g/dL Procalcitonin ng/mL TSH (0.36-3.74) uIU/mL C. albicans Allerg IgE kU/L <0.35 M. racemosus Allrg IgE kU/L <0.35 Urine Color (Yellow) Urine Clarity (Clear) Urine pH (5-8) Ur Specific [place] (1.005-1.025) Urine Protein (Negative) mg/dL Urine Ketones (Negative) mg/dL Urine Blood (Negative) Urine Nitrite (Negative) Urine Bilirubin (Negative) Urine Urobilinogen (Up TO 0.2) EU/dL Ur Leukocyte Esterase (Negative) Urine RBC (0-2) HPF Urine WBC (0-5) HPF Ur Epithelial Cells (Negative) HPF Urine Crystals (Negative) HPF Urine Bacteria (Negative) HPF Urine Casts (Negative) LPF Urine Mucus (Negative) Ur Culture Indicated? Urine Glucose (Negative) mg/dL Vancomycin Trough Rheumatoid Factor (<12.0) IU/mL Cyclic Citrull Peptide (<5.0) U/mL ANNIE Titer ANNIE Titer 2 ANNIE Titer 3 ANNIE Interpretation (Negative) ANCA Immunofluorescen (Negative) ANCA Titer ANCA Pattern SS-A Antibody (<20.0) Units SS-B Antibody (<20.0) Units Scl-70 IgG Ab U Double Strand DNA Ab (<30.0) IU/mL Adenovirus DNA (Negative) Blastomyces Ag Result Blastomyces Ag Comment ng/mL COVID-19 Source SARS-CoV-2 (PCR) (Negative) Urine Histoplasma Ag U Histoplasma Ag Index ng/mL Human Metapneumovir RNA (Negative) Influenza Type A (PCR) (Negative) Influenza Type B (PCR) (Negative) L.pneumophila Antibody (Negative) Urine Legionella Ag (Negative) M. pneumoniae Source M. pneumoniae (PCR) Parainfluenza 1 (PCR) (Negative) Parainfluenza 2 (PCR) (Negative) Parainfluenza 3 (PCR) (Negative) Parainfluenza 4 (PCR) (Negative) RSV (PCR) (Negative) Resp Viral Spec Desc Rhinovirus (PCR) (Negative) B-(1,3)-D-Glucan Quant (<60 pg/mL) pg/mL 123 A B-(1,3)-D-Glucan Qual (Negative) Positive A Add-On Test Request Range/Units 11/08/21 06:14 WBC (4.4-10.8) 10^3/uL RBC (4.36-5.78) 10^6/uL Hgb (13.5-17.5) g/dL Hct (40.0-50.0) % MCV (80-95) fL MCH (27.0-33.0) pg MCHC (32.0-36.0) % RDW (11.8-14.1) % Plt Count (130-400) 10^3/uL MPV (8.0-11.0) fL Immature Gran % Neutrophils % Lymphocytes % Monocytes % Eosinophils % Basophils % Nucleated RBC % % Absolute Neutrophils (1.2-6.7) 10^3/uL Absolute Lymphocytes (1.2-3.4) 10^3/uL Absolute Monocytes (0.1-0.8) 10^3/uL Absolute Eosinophils (0.0-0.7) 10^3/uL Absolute Basophils (0.0-0.2) 10^3/uL ESR (0-20) mm/hr Sample Site ABG Sample Site ABG pH (7.35-7.45) ABG pCO2 (35-45) mmHg ABG pO2 (80-105) mmHg ABG HCO3 (22-26) mmol/L ABG Total CO2 (23-27) mmol/L ABG O2 Saturation (95-98) % ABG Base Excess (-2-3) mmol/L VBG Lactate (0.6-1.4) mmol/L Oxygen Liter Flow FiO2 FiO2 (liters per min) L Sodium (136-145) mmol/L 145 Potassium (3.5-5.1) mmol/L 4.1 D Chloride (98-107) mmol/L 108 H Carbon Dioxide (21.0-32.0) mmol/L 28.0 Anion Gap (3-11) mmol/L 9.0 BUN (7-18) mg/dL 35 H Creatinine (0.70-1.30) mg/dL 1.5 H Estimated GFR/1.73 m2 (mL/min/1.73m2) 44.92 Glucose (74-106) mg/dL 113 H Calcium (8.5-10.1) mg/dL 9.4 Magnesium (1.8-2.4) mg/dL Ferritin (22-322) ng/mL Total Bilirubin (0.2-1.0) mg/dL AST (15-37) U/L ALT (16-63) U/L Alkaline Phosphatase (46-116) U/L Troponin I (<or=60) ng/L C-Reactive Protein (0.0-0.3) mg/dL NT-Pro-B Natriuret Pep (<300) pg/mL Total Protein (6.4-8.2) g/dL Albumin (3.4-5.0) g/dL Procalcitonin ng/mL TSH (0.36-3.74) uIU/mL C. albicans Allerg IgE kU/L M. racemosus Allrg IgE kU/L Urine Color (Yellow) Urine Clarity (Clear) Urine pH (5-8) Ur Specific [place] (1.005-1.025) Urine Protein (Negative) mg/dL Urine Ketones (Negative) mg/dL Urine Blood (Negative) Urine Nitrite (Negative) Urine Bilirubin (Negative) Urine Urobilinogen (Up TO 0.2) EU/dL Ur Leukocyte Esterase (Negative) Urine RBC (0-2) HPF Urine WBC (0-5) HPF Ur Epithelial Cells (Negative) HPF Urine Crystals (Negative) HPF Urine Bacteria (Negative) HPF Urine Casts (Negative) LPF Urine Mucus (Negative) Ur Culture Indicated? Urine Glucose (Negative) mg/dL Vancomycin Trough Rheumatoid Factor (<12.0) IU/mL Cyclic Citrull Peptide (<5.0) U/mL ANNIE Titer ANNIE Titer 2 ANNIE Titer 3 ANNIE Interpretation (Negative) ANCA Immunofluorescen (Negative) ANCA Titer ANCA Pattern SS-A Antibody (<20.0) Units SS-B Antibody (<20.0) Units Scl-70 IgG Ab U Double Strand DNA Ab (<30.0) IU/mL Adenovirus DNA (Negative) Blastomyces Ag Result Blastomyces Ag Comment ng/mL COVID-19 Source SARS-CoV-2 (PCR) (Negative) Urine Histoplasma Ag U Histoplasma Ag Index ng/mL Human Metapneumovir RNA (Negative) Influenza Type A (PCR) (Negative) Influenza Type B (PCR) (Negative) L.pneumophila Antibody (Negative) Urine Legionella Ag (Negative) M. pneumoniae Source M. pneumoniae (PCR) Parainfluenza 1 (PCR) (Negative) Parainfluenza 2 (PCR) (Negative) Parainfluenza 3 (PCR) (Negative) Parainfluenza 4 (PCR) (Negative) RSV (PCR) (Negative) Resp Viral Spec Desc Rhinovirus (PCR) (Negative) B-(1,3)-D-Glucan Quant (<60 pg/mL) pg/mL B-(1,3)-D-Glucan Qual (Negative) Add-On Test Request
--- NOTE | 2021-11-09 10:03 | PT.INDS ---
Date of service: 11/02/21 PT Notes Visit Reasons: Pneumonia At rest with 2 L and then I may ambulate him is okay as he saturates okay at 2 but when he starts walking you have and had to I increase it to 6 still will not go up to 3-8 syllable: This is improved just sitting and then I finally reached him and then he goes up to 99 196 I think is a 94 over there and then I would bring it back down because he is staying at that level right middle walk again so but you do not even provide assistance to him no physical assistance at all to standby assist solids Astrid Orourke NP you can put the oximeter on while you are walking safety and see how his oxygen level changes and then bring it up to yesterday the usual 6 so he is not taking a lesser amount of oxygen all really okay rest states the same thing significantly increased titrate up to 10 when when he cannot when he stays below 80. When he gets below 88-year-old with yearly monitoring it is grazing procedure there is thinking of fungal infection. Try to culture so having a biopsy or several culture home I have seen him already feel therapy is not sure when he had an x-ray chatting with his he did seem like he was ready to go with her work they will bring him down for procedure to do something with his mom with her for failure to test him
--- NOTE | 2021-11-09 10:14 | W.ANESPRE ---
General Info Date of Service Date Performed: 11/09/21 Height: 5 ft 9.5 in Weight: 87.8 kg Body Mass Index (BMI): 28.1 Surgical Procedure: Operation Date: 11/09/21 12:10 Proposed Procedure Side Surgeon everette Rodrigues MD Meds Allergies and Home Medications Allergies Allergy/AdvReac Type Severity Reaction Status Date / Time Sulfa (Sulfonamide AdvReac Intermediate Its been Verified 10/24/21 16:31 Antibiotics) along time cat dander AdvReac Mild Verified 10/24/21 16:31 penicillin V AdvReac Mild nausea Verified 10/24/21 16:31 salicylates AdvReac Mild up set Verified 10/24/21 16:31 stomach Home Medication Medication Instructions Recorded levothyroxine 75 mcg tablet 75 mcg PO DAILY 12/03/16 ropinirole 2 mg tablet 2 mg PO HS 12/03/16 acetaminophen 500 mg tablet 1,000 mg PO Q4H PRN 06/30/19 (Tylenol Extra Strength) albuterol sulfate 90 mcg/actuation 2 puff IH Q6H PRN 07/30/19 aerosol inhaler (ProAir HFA) losartan 50 mg tablet 75 mg PO DAILY 07/30/19 nitroglycerin 0.4 mg sublingual 0.4 mg SL Q5-15M PRN 07/30/19 tablet (Nitrostat) finasteride 5 mg tablet 5 mg PO DAILY 08/27/21 prednisone 5 mg tablet 5 mg PO DAILY 08/27/21 sertraline 25 mg tablet 25 mg PO DAILY 08/27/21 furosemide 40 mg tablet 40 mg PO DAILY #30 tab 10/06/21 guaifenesin 1,200 mg tablet, 1,200 mg PO BID #20 tab 10/06/21 extended release 12 hr (Mucinex) pantoprazole 40 mg tablet,delayed 40 mg PO DAILY #30 tab 10/06/21 release (Protonix) prednisone 10 mg tablet 10 mg PO DAILY #56 tab 10/06/21 L. acidophilus,casei,rhamnosus 50 1 cap PO DAILY 10/24/21 billion cell capsule,delayed release (Bio-K plus) apixaban 5 mg (74 tabs) tablets in 5 mg PO BID 10/24/21 a dose pack (Eliquis DVT-PE Treat 30D Start) biotin 10,000 mcg-keratin 100 mg 1 tab PO DAILY 10/24/21 tablet (Biotin Plus Keratin) ipratropium bromide 21 mcg (0.03 1 spray INTRANASAL Q6H PRN 10/24/21 %) nasal spray montelukast 10 mg tablet 10 mg PO DAILY 10/24/21 tamsulosin 0.4 mg capsule 0.8 mg PO DAILY 10/24/21 Current Visit Medications: Current Medications Generic Name Dose Route Start Last Admin Trade Name Freq PRN Reason Stop Dose Admin Acetaminophen 0 mg 10/24/21 18:34 11/09/21 05:24 Acetaminophen 325 Mg Tab PO 650 mg Q4H PRN PRN Administration Acetaminophen/Aspirin/Caffeine 2 each 11/02/21 17:01 Acetaminophen 250 Mg/Aspirin 250 Mg/Caffeine 65 Mg Tab PO Q6H PRN PRN Al Hydrox/Mg Hydrox/Simethicone 30 ml 10/28/21 06:00 10/28/21 06:21 Mylanta Suspension 30 Ml Cup PO 30 ml Q4H PRN PRN Administration Albuterol Sulfate 2.5 mg 10/24/21 18:34 11/02/21 06:38 Albuterol 2.5 Mg/3 Ml Inh Soln Vial UPD 2.5 mg Q2H PRN PRN Administration Albuterol/Ipratropium 3 ml 11/02/21 14:00 11/09/21 05:25 Albuterol/Ipratropium 3 Ml Upd Vial UPD 3 ml Q4H DEVENDRA Administration Apixaban 5 mg 10/24/21 20:00 11/09/21 08:46 Apixaban 5 Mg Tab PO 5 mg BID DEVENDRA Administration Ascorbic Acid 500 mg 11/02/21 20:00 11/09/21 08:43 Ascorbic Acid 500 Mg Tab PO 500 mg BID DEVENDRA Administration Cetirizine HCl 5 mg 10/28/21 12:30 11/09/21 08:45 Cetirizine 10 Mg Tab PO 5 mg DAILY DEVENDRA Administration Cholecalciferol 2,000 units 11/03/21 08:30 11/09/21 08:42 Cholecalciferol (Vitamin D3) 1,000 Unit Tab PO 2,000 units DAILY DEVENDRA Administration Dimethicone/Zinc Oxide 0 gm 10/24/21 18:34 Christina Protect Cream 142 Gm Tube TP PRN PRN Docusate Sodium 100 mg 11/04/21 20:00 11/09/21 08:42 Docusate Sodium 100 Mg Cap PO 100 mg BID DEVENDRA Administration Finasteride 5 mg 11/03/21 15:10 11/09/21 08:44 Finasteride 5 Mg Tab PO 5 mg DAILY DEVENDRA Administration Fluticasone Propionate 16 gm 10/25/21 08:30 11/09/21 08:46 Fluticasone Nasal [place] 16 Gm Btl NS 2 sprays BID DEVENDRA Administration Furosemide 40 mg 11/07/21 08:30 11/09/21 08:44 Furosemide 40 Mg Tab PO 40 mg DAILY DEVENDRA Administration Guaifenesin 1,200 mg 10/25/21 08:30 11/09/21 08:43 Guaifenesin 600 Mg Tabcr PO 1,200 mg BID DEVENDRA Administration Micafungin Sodium 100 mg/ 100 mls @ 100 mls/hr 11/07/21 14:00 11/08/21 15:45 Sodium Chloride IVPB Infused Q24H DEVENDRA Infusion Ipratropium [place] 0 ml 10/25/21 08:30 11/09/21 08:46 Ipratropium 0.03% 30 Ml Btl NS 2 sprays BID DEVENDRA Administration Lactobacillus Acidophilus/Casei 1 cap 11/03/21 08:30 11/09/21 08:43 L. Acidophilus, Casei, Rhamnosus Cap PO 1 cap DAILY DEVENDRA Administration Levothyroxine Sodium 75 mcg 10/26/21 06:00 11/09/21 05:23 Levothyroxine 75 Mcg Tab PO 75 mcg DAILY@0600 DEVENDRA Administration Lidocaine 1 patch 11/01/21 18:00 11/08/21 17:52 Lidocaine 5% Patch TP 1 patch Q24H DEVENDRA Administration Midodrine 2.5 mg 11/02/21 15:00 11/09/21 08:51 Midodrine 2.5 Mg Tab PO 2.5 mg TID DEVENDRA Administration Miscellaneous 1 each 11/02/21 06:00 11/08/21 05:10 Lidocaine Patch Removal TD 1 each Q24H DEVENDRA Administration Montelukast Sodium 10 mg 10/25/21 08:30 11/09/21 08:43 Montelukast 10 Mg Tab PO 10 mg DAILY DEVENDRA Administration Nystatin 0 gm 11/05/21 20:00 11/08/21 19:28 Nystatin Powder 60 Gm Jar TP 1 applic BID DEVENDRA Administration Ondansetron HCl 4 mg 10/28/21 12:42 Ondansetron 4 Mg/2 Ml Vial IVP Q4H PRN PRN Pantoprazole Sodium 40 mg 10/26/21 07:30 11/09/21 08:43 Pantoprazole 40 Mg Tabcr PO 40 mg DAILY@0730 DEVENDRA Administration Polyethylene Glycol 17 gm 11/04/21 14:45 11/09/21 08:48 Polyethylene Glycol 3350 17 Gm Packet PO Not Given DAILY DEVENDRA Potassium Chloride 20 meq 11/06/21 11:05 11/09/21 08:43 Potassium Chloride 20 Meq Tabcr PO 20 meq BID DEVENDRA Administration Ropinirole HCl 2 mg 10/24/21 22:00 11/08/21 21:49 Ropinirole 1 Mg Tab PO 2 mg HS DEVENDRA Administration Sertraline HCl 25 mg 10/25/21 08:30 11/09/21 08:45 Sertraline 25 Mg Tab PO 25 mg DAILY DEVENDRA Administration Sodium Chloride 0 ml 10/24/21 20:59 11/08/21 14:44 Normal Saline Flush 10 Ml Syr IVP 10 ml PRN PRN Administration Tamsulosin HCl 0.8 mg 11/03/21 22:00 11/08/21 21:49 Tamsulosin 0.4 Mg Capcr PO 0.8 mg HS DEVENDRA Administration Trimethoprim/Sulfamethoxazole 1 tab 11/07/21 08:30 11/09/21 08:42 Sulfameth/Trimeth Reg Str Tab PO 1 tab DAILY DEVENDRA Administration PFSH Active Problems Active Problems: Problem Status Onset Code Fungal pneumonia J16.8, B49 Acute respiratory failure with hypoxia J96.01 Palliative care patient Z51.5 Acute kidney injury superimposed on CKD N17.9, N18.9 Pulmonary infiltrate R91.8 DNR (do not resuscitate) Z66 Advanced care planning/counseling discussion Z71.89 Febrile illness, acute R50.9 Acute sinusitis J01.90 Acute otitis media with effusion of left ear H65.192 History of pulmonary embolism Z86.711 Dizziness R42 Discharge planning issues Z02.9 DVT prophylaxis Z29.9 Hypotension I95.9 SOB (shortness of breath) R06.02 Sleep apnea G47.30 PAD (peripheral artery disease) I73.9 Medical History Medical History (Updated 11/09/21 @ 09:52 by Aimee Rodrigues MD) Acute kidney injury superimposed on chronic kidney disease Bilateral pneumonia BPH (benign prostatic hyperplasia) Chronic ethmoidal sinusitis Chronic frontal sinusitis Chronic kidney disease Deviated nasal septum Dilated aortic root Discharge planning issues DVT prophylaxis E coli bacteremia Fractured rib mid Sept 2019 Hypothyroidism Kidney stone Lyme disease Nasal septal spur Nasal turbinate hypertrophy Palliative care encounter Parkinsons pt. states he does not have Pneumonia Polymyalgia rheumatica pt. reports he has this not parkinsons Pulmonary fat embolism Pyelonephritis due to Escherichia coli Surgical History Surgical History Hx of colonoscopy Hx of inguinal hernia surgery Hx of total hip arthroplasty right Tobacco Smoking/Tobacco Use Status: Former Tobacco Use Alcohol Alcohol Intake: current Alcohol intake frequency: 0-2 drinks per day Alcohol type: beer and hard liquor Substance Use Substance use: Never Substance use type: does not use Vital Signs and Lab Results Vital Signs Most Recent Vital Signs in EMR: Most Recent Vital Signs Temp Pulse Resp BP Pulse Ox 36.7 C 98 H 18 122/69 94 11/09/21 07:41 11/09/21 07:41 11/09/21 07:41 11/09/21 07:41 11/09/21 07:41 Point of Care Results Point of Care Results: Finger Stick Blood Glucose 113 11/08/21 09:15 Lab Results Result Diagrams: 11/06/21 06:21 11/08/21 06:14 Blood Type / Crossmatch: No Data to Display Complete Blood Count: White Blood Count 10.75 10^3/uL (4.4-10.8) 11/06/21 06:21 11/06/21 Red Blood Count 3.44 10^6/uL (4.36-5.78) L 11/06/21 06:21 11/06/21 Hemoglobin 11.3 g/dL (13.5-17.5) L 11/06/21 06:21 11/06/21 Hematocrit 34.4 % (40.0-50.0) L 11/06/21 06:21 11/06/21 Platelet Count 239 10^3/uL (130-400) 11/06/21 06:21 11/06/21 Venous Blood Lactate 1.8 mmol/L (0.6-1.4) H 10/30/21 12:50 10/30/21 Complete Metabolic Panel: Sodium Level 145 mmol/L (136-145) 11/08/21 06:14 11/08/21 Potassium Level 4.1 mmol/L (3.5-5.1) 11/08/21 06:14 11/08/21 Chloride Level 108 mmol/L (98-107) H 11/08/21 06:14 11/08/21 Carbon Dioxide Level 28.0 mmol/L (21.0-32.0) 11/08/21 06:14 11/08/21 Blood Urea Nitrogen 35 mg/dL (7-18) H 11/08/21 06:14 11/08/21 Creatinine 1.5 mg/dL (0.70-1.30) H 11/08/21 06:14 11/08/21 Estimated GFR/1.73 m2 44.92 (mL/min/1.73m2) 11/08/21 06:14 11/08/21 Magnesium Level 2.0 mg/dL (1.8-2.4) 10/30/21 06:18 10/30/21 Calcium Level 9.4 mg/dL (8.5-10.1) 11/08/21 06:14 11/08/21 Albumin 3.0 g/dL (3.4-5.0) L 10/24/21 16:55 10/24/21 Glucose Level 113 mg/dL (74-106) H 11/08/21 06:14 11/08/21 C-Reactive Protein 9.36 mg/dL (0.0-0.3) H 11/05/21 07:50 11/05/21 Liver Function Panel: Alanine Aminotransferase (ALT/SGPT) 18 U/L (16-63) 10/24/21 16:55 10/24/21 Aspartate Amino Transf (AST/SGOT) 20 U/L (15-37) 10/24/21 16:55 10/24/21 Coagulation Panel: No Data to Display Cardiac Panel: Troponin I < 50 ng/L (<or=60) 10/24/21 TD-Vdo-Z-Type Natriuretic Peptide 673 pg/mL (<300) H 11/02/21 Arterial Blood Gas: Arterial Blood pH 7.50 (7.35-7.45) H 10/30/21 12:50 10/30/21 Arterial Blood pO2 79 mmHg (80-105) L 10/30/21 12:50 10/30/21 Arterial Blood pCO2 30 mmHg (35-45) L 10/30/21 12:50 10/30/21 Arterial Blood Oxygen Saturation 97 % (95-98) 10/30/21 12:50 10/30/21 Arterial Blood HCO3 22 mmol/L (22-26) 10/30/21 12:50 10/30/21 Arterial Blood Base Excess -1 mmol/L (-2-3) 10/30/21 12:50 10/30/21 Arterial Blood Total CO2 23 mmol/L (23-27) 10/30/21 12:50 10/30/21 Venous Blood Gas: No Data to Display Pancreas Panel: No Data to Display Thyroid Panel: Thyroid Stimulating Hormone (TSH) 0.50 uIU/mL (0.36-3.74) 11/03/21 06:30 11/03/21 Infectious Disease: Coronavirus (COVID-19)(PCR) Negative (Negative) 11/02/21 11:00 11/02/21 Coronavirus 2019 Source Nasopharynx 11/02/21 11:00 11/02/21 Influenza Virus Type A (PCR) Negative (Negative) 10/24/21 16:55 10/24/21 Influenza Virus Type B (PCR) Negative (Negative) 10/24/21 16:55 10/24/21 Respiratory Syncytial Virus (PCR) Negative (Negative) 10/24/21 16:55 10/24/21 Blood Cultures: No Data to Display Toxicology Panel: No Data to Display Imaging and Studies Imaging and Studies Study information below may be from another EMR and interpreted by another provider. Please see original notes in EMR for more complete details. EKG Summary: Conclusion Sinus rhythm...normal P axis, V-rate 60- 99 Multiple ventricular premature complexes...V complexes w/ short R-R intervls Left anterior fascicular block...axis(240,-40), init forces inf Left ventricular hypertrophy...multiple voltage criteria ST elevation, consider inferior injury...ST >0.08mV, II III aVF. Stress Test Summary: Impressions: Normal study after maximal exercise. Summary: 1. Myocardial perfusion imaging: No myocardial perfusion defects noted. 2. The calculated left ventricular ejection fraction after stress: 51%. LV global systolic function is normal. No left ventricular regional motion abnormality. 3. Stress: The target heart rate was achieved Echocardiogram Summary: 11/02/2021: Conclusion Normal left ventricular size and systolic function The right ventricle is normal size, systolic function appears normal Both atria are normal in size Trileaflet aortic valve Normal tricuspid valve with mild regurgitation. Estimated right ventricular systolic pressure is 38 mmHg Normal pulmonic valve with mild regurgitation Wall motion Left Ventricle The left ventricle is normal size. The left ventricular systolic function is normal. The left ventricular ejection fraction is within the normal range. There is normal LV segmental wall motion. LVEF is 55-60%. Right Ventricle The right ventricle is normal size. The right ventricular systolic function is normal. Aortic Valve Aortic valve is trileaflet. Mitral Valve The mitral valve is normal in structure. Tricuspid Valve The tricuspid valve is normal in structure. Mild tricuspid regurgitation. Pulmonic Valve The pulmonary valve is normal in structure. Mild pulmonic regurgitation. Anesthesia Assessment and Plan Anesthesia History Personal History: No History of Anesthesia Complications Family History: No Family History of Anesthesia Complications Exercise Tolerance Exercise Tolerance: Metabolic Equivalents<4 Cardiac & Pulmonary Exam Cardiac Exam: Normal S1/S2 Heart Sounds Pulmonary Exam: Rhonchi Present Implantable Cardiac Device Does patient have a Pacemaker or an ICD?: No Airway Exam Known Difficult Airway: No Mallampati Class: 2 Mouth Opening: Normal (> 3cm) Thyromental Distance: Greater than 3 cm Neck Range of Motion: Full ROM Neck Circumference: Normal Teeth Condition: Edentulous ASA Classification ASA Score: ASA 4 Emergency Case?: No NPO Status NPO Status: NPO Clears >2 hours, Solids >8 hours Anesthesia Plan Resuscitation Status: DNR Fully Suspended During Perioperative Period Anesthesia Technique: General Anesthesia Airway Planned: Endotracheal Tube Monitors Used: Standard Monitors Preoperative Comments:: Discussed potential risk for prolonged intubation, patient verbalized risk and wishes to proceed with procedure.
[2021-11-09] MEDS: Normal Saline Flush 10 ML SYR IVP ×2 (10:25→14:32)
--- NOTE | 2021-11-09 10:45 | W.PM.PROGNOT ---
Date of Service Date of service: 11/09/21 Time of Service: 10:46 Assessment and Plan Assessment and plan (1) Hypotension: Status: Resolved Assessment and plan: Now resolved. His lasix and losartan were held. Now back on his routine daily oral lasix. Flomax and proscar were held but will resume. Now on midodrine and wearing LUKAS stockings. SBP primarlly in the 120's to 140's range. Monitor and considering stopping midodrine. (2) DVT prophylaxis: Status: Acute Assessment and plan: On apixiban (3) Pneumonia: Assessment and plan: Fungitell positive. Repeat is also positive. Bronchoscopy scheduled for today. BAL with gram stain and cultures. High dose steroids stopped. Zosyn stopped. Micafungin initiated. Pulmonary Medicine has ordered repeat Fungitell as well as fungal sputum culture aspergillus and chicho testing that are pending. Urine histo neg. He is starting to have looser resp secretions and is expectorating some phlegm. Cont Mucinex and VibraPEP (4) Acute kidney injury superimposed on chronic kidney disease: Assessment and plan: Creatinine increased to 2.0 but now back to 1.5 which is close or within his baseline range. Creatinine in AM (5) Acute respiratory failure with hypoxia: Status: Acute Assessment and plan: Doing well at rest on 2L supplemental O2. O2 requirement with ambulation has varied from 4L to 8L. Cont to monitor and adjust as necessary. Subjective Subjective Patient reports: feels better, shortness of breath (w/ambulation, but improved.) and afebrile; denies nausea or vomiting Interval history since last seen: Working with PT. Ambulates unassisted. . Exam Const General: cooperative, not healthy appearing, no acute distress, frail appearing and ill appearing acutely Nutritional Appearance: overweight Orientation: alert, awake and oriented x3 HENMT Head: normal to inspection and atraumatic Ears: hearing grossly normal bilaterally and TM normal on the left Face and sinus: normal facial exam Mouth: oral mucosae normal Eyes General: appearance normal, both eyes and all related structures Eyelids: eyelids normal Sclera: sclerae normal Neck Neck: normal visual inspection, full ROM, negative Kernig's sign and no JVD Resp Effort & Inspection: normal respiratory effort and able to speak in complete sentences Auscultation: not clear to auscultation bilaterally, crackles (course) bilaterally, diminished lung sounds on the left throughout, rales and wheezes (faint) Cardio Jugular venous pressure: no JVD Rate: regular rate and tachycardic Rhythm: regular rhythm GI Inspection: normal to inspection and obesity Palpation: soft, not firm, no guarding and nontender Auscultation: normal bowel sounds Back/Spine/Pelvis Back: no CVA tenderness Cervical Spine: normal cervical lordosis Thoracic/Lumbar Spine: thoracic and lumbar spine normal to inspection Skin General skin exam: no rashes or lesions noted and other (venous stasis ulceration, scattered ecchymosis) Neuro General: patient alert, patient awake, patient oriented x3 and moves all extremities Cognition: normal cognition Speech: speech normal Gait: normal gait Extrem General: normal to inspection, no pedal edema and no calf tenderness Psych Appearance: grossly normal Mental Status: mental status grossly normal Speech and Movement: speech and movement normal Mood: congruent mood Affect: normal affect Attitude: cooperative Thought Process: normal Thought Content: normal Insight: insight good Judgment: fair Objective Last Vital Signs Temp 36.7 C 11/09/21 07:41 Pulse 98 H 11/09/21 07:41 Resp 18 11/09/21 07:41 BP 122/69 11/09/21 07:41 Pulse Ox 94 11/09/21 07:41 Laboratory Results - last 24 hr 11/04/21 11/07/21 11/07/21 19:35 12:45 12:45 C. albicans Allerg IgE <0.35 M. racemosus Allrg IgE <0.35 Blastomyces Ag Result Not Detected Blastomyces Ag Comment Not Detected B-(1,3)-D-Glucan Quant B-(1,3)-D-Glucan Qual 11/07/21 16:25 C. albicans Allerg IgE M. racemosus Allrg IgE Blastomyces Ag Result Blastomyces Ag Comment B-(1,3)-D-Glucan Quant 123 A B-(1,3)-D-Glucan Qual Positive A PAWSS Have you Been Recently Intoxicated or Drunk Within the Last 30 days?: No Have you Ever Experienced Previous Episodes of Alcohol Withdrawal?: No Have you ever Experienced Withdrawal Seizures?: No Have you ever Experienced Delirium Tremens(DT)s?: No Have you ever undergone Alcohol Rehabilitation Treatment (i.e, inpt ot outpatient treatment programs)?: No Have you ever Experienced Blackouts?: No Have you ever Combined Alcohol with other Downers within the last 90 days?: No Have you ever Combined Alcohol with any other Substance of Abuse during the last 90 days?: No Positive Blood Alcohol level on Presentation? [PCS.BAL]: No Evidence of Increased Autonomic Activity (i.e. HR>120, tremor, sweating, agitation, nausea)?: No Result: 0
--- NOTE | 2021-11-09 11:43 | PDOC.CMPRO ---
- If Service Date Differs Date of service: 11/09/21 Time of Service: 11:47 Care Management Progress Note S/O: Jarrod went to the OR today for a flexible bronchoscopy, so he was unavailable when CM attempted to meet with him. He is being followed closely by Pulmonology. Per report, ordered Fungitell adn fungal sputum, and chicho testing that are pending. Per PT, he is tolerating sessions well, but his sats continue to drop with activity. CM will continue to follow. A: Jarrod is an 81 year old male admitted to [facility] on 10/24/21 with Pneumonia, hypoxic respiratory failure P: Anticipate, Jarrod will go to a SNF for short term rehab prior to returning home. His sister will likely drive him home via private vehicle when ready vs facility transportation, if available. He will follow up with his PCP and discharge plan of care. CM will continue to follow.
--- NOTE | 2021-11-09 12:30 | PAPNONF_PTH ---
PATIENT: Wilfrido Solorzano Jr LOC: U#:[id number] AGE/SX: 81/M ROOM: 226 RE10/24/[address]: Eliseo Marie MD : [id number] BED: A DIS: 11/20/2021 SPEC #: [id number] RECD: 11/09/21 13:07 STATUS: AKIL REQ #: [id number] DOM: 11/09/21 12:[address]: Eliseo Marie DEPT: [facility] Cytology RECD BY: Almaz Raza ENTERED: 11/09/21 13:08 SP TYPE: PAPNONF MAEGANHR DR: MD Chung Frost Abby InPatient Dan Wyand Tissues: 1 - BODY FLUID CYTO(NOT S/U/N/EM)[facility] Procedures: BODY FLUID CYTO(NOT SPU/UR/NIP/ENDOM)[facility] SPECIAL STAIN 1 Comments: [id number] (TOTAL VOLUME = 60 ml, SENT FRESH)
--- NOTE | 2021-11-09 12:51 | W.ANESPOSTOP ---
Postoperative Evaluation Date, Time and Location Date Performed: 11/09/21 Time Performed: 12:52 Patient Location: PACU Vital Signs Most Recent Imported Vital Signs: Most Recent Vital Signs Temp Pulse Resp BP Pulse Ox 36.9 C 94 H 22 129/85 94 11/09/21 11:25 11/09/21 11:25 11/09/21 11:25 11/09/21 11:25 11/09/21 11:25 Most Recent Manually Entered Vital Signs: Adult Blood Pressure: 127/75 Heart Rate: 94 Respirations: 13 Oxygen Saturation (%): 99 Temperature (C): 36.7 C Pain Score (0-10 Scale): 0 Pain Score Most Recent Pain Score: Most Recent Pain Score Pain Level [Abdomen] 5 11/09/21 07:41 Pain Level 5 11/09/21 07:41 Assessment Mental Status: Awake (Alert & Oriented to Patient Baseline) Airway and Respiratory Function: Patent airway with normal (patient baseline) respiratory exam Cardiovascular Function: Hemodynamically Stable Hydration Status: Adequately Hydrated Nausea & Vomiting: No Nausea or Vomiting Pain: Pt. Denies Any Pain Peripheral Nerve Block: Patient did not receive a nerve block
--- NOTE | 2021-11-09 13:22 | W.PM.OP ---
Operative Note Operative Note Refer to Anesthesia Record Procedure Description: Bronchoscopy Date:11/09/21 Time:12:00 Indication:Fungal Pneumonia Procedure performed: Flexible bronchoscopy Sedation plan: General anesthesia Medications used: See anesthesia report Informed consent was obtained after the risks and benefits or the procedure were discussed. A proper and complete OR compliant time out was performed. The therapeutic 6.2mm Olympus bronchoscope was inserted through the endotracheal tube. The bronchoscope was inserted into the airways, where 1cc in total of 1% topical lidocaine was used the anesthetize the airways. The trachea was midline and without lesion or injury. The mucosa appeared erythematous and there were no signs of tracheomalacia. The leo was sharp. All bronchial subsegments were visualized within each lobe and showed thick, tenuous yellow secretions present throughout but most apparent in the trachea, right and left main bronchus. The secretions were extremely challenging to clear with the bronchoscope. A bronchoalveolar lavage was performed in the right upper lobe. A total of 120 cc of saline was administered with a return of 80 cc. The fluid was slightly cloudy in appearance with clear cellular debis and mucus plugs visible. The bronchoscope was then removed and the case terminated. The patient was taken to PACU in stable condition. Samples collected:RUL BAL and mixed bronchial washings Testing ordered:cell diff with bacterial, fungal and AFB cultures. Cytology and silver staining for PJP. Complications:None Aimee Rodrigues MD Pulmonary & Critical Care Medicine
--- NOTE | 2021-11-09 15:23 | PT.INTREAT ---
PT Notes Visit Reasons: Pneumonia Inpatient Physical Therapy Treatment Note [facility] Date: 11/09/21 SUBJECTIVE:Al states that he is going for some sort of procedure later this am. States that as long as he is not moving much he feels ok. When he moves around he coughs which creates pain in diaphragm. OBJECTIVE: [] BED MOBILITY/TRANSFERS Sit-stand: SBA Stand-sit: SBA GAIT Assistive Device: FWW Weight bearing: FWB Assist: SBA/S Distance: 175' in am Deviation: 10L O2 during amb. sats 82-87% at standing rest x 20 sec, 92%. 96% at sit rest and on 3L ASSESSMENT: tolerated session well, although his sats dropped with activity. Held PT in pm as he was recovering from procedure. PLAN: continue progressing his strength and endurance as well as functional mobility. TREATMENT CODE/TIME: 25 min [id number]
[2021-11-09] MEDS: Lidocaine 5% Patch 1 PATCH TP (18:18)
[2021-11-09] MEDS: Nystatin POWDER 60 GM JAR TP (19:54)
[2021-11-09] MEDS: rOPINIRole 1 MG TAB 2 MG PO (22:59)
[2021-11-09] MEDS: Tamsulosin 0.4 MG CAPCR 0.8 MG PO (22:59)
[2021-11-10] VITALS (8 sets, daily range): BP systolic 108–143; BP diastolic 66–81; PULSE 88–98; RESP 2–24; TEMP 36.1–36.8; O2SAT 92–95
[2021-11-10 06:03] LABS: Abs Immature Grans 1.41 10^3/uL (0.0-0.06); Absolute Basophil Count 0.06 10^3/uL (0.0-0.2); Absolute Eosinophil Count 0.41 10^3/uL (0.0-0.7); Absolute Lymphocyte Count 0.99 10^3/uL (1.2-3.4); Absolute Monocyte Count 0.37 10^3/uL (0.1-0.8); Absolute Neutrophil Count 7.41 10^3/uL (1.2-6.7); Basophils % 0.6; Eosinophils % 3.8; HCT 36.3 % (40.0-50.0); HGB 11.9 g/dL (13.5-17.5); Immature Grans % 13.2; Lymphocytes % 9.3; MCH 32.7 pg (27.0-33.0); MCHC 32.8 % (32.0-36.0); MCV 99.7 fL (80-95); MPV 9.9 fL (8.0-11.0); Monocytes % 3.5; Neutrophils % 69.6; Nucleated RBC 0 %; RBC 3.64 10^6/uL (4.36-5.78); RDW 12.8 % (11.8-14.1); RDW-SD 47.3 fL; WBC 10.65 10^3/uL (4.4-10.8)
[2021-11-10 06:13] LABS: BUN 28 mg/dL (7-18); CREATININE 1.4 mg/dL (0.70-1.30); Calcium 8.7 mg/dL (8.5-10.1); Chloride 103 mmol/L (98-107); Estimated GFR 48.64 (mL/min/1.73m2); Glucose 130 mg/dL (74-106); Potassium 4.1 mmol/L (3.5-5.1); Sodium 140 mmol/L (136-145)
[2021-11-10] MEDS: Lidocaine Patch Removal 1 EACH TD (06:29)
[2021-11-10] MEDS: Levothyroxine 75 MCG TAB PO (06:29)
[2021-11-10 06:39] LABS: Basophilic Stippling Present; Diff Comment Agrees w/ Instrument; Platelet Count 307 10^3/uL (130-400)
[2021-11-10] MEDS: Albuterol/Ipratropium 3 ML UPD VIAL UPD ×3 (07:53→20:17)
--- NOTE | 2021-11-10 08:40 | DI.RAD_ITS ---
Exam(s) XR PORTABLE CHEST AP EXAM: XR PORTABLE CHEST AP CLINICAL HISTORY: worsening hypoxia TECHNIQUE: COMPARISON: CR XR PORTABLE CHEST AP from 10/30/2021 FINDINGS: Portable upright chest at 0830 hours. Note is again made of multi focal/diffuse intrapulmonary infil trates, in comparison with prior examination of October 30 there has been some apparent overall inte rval progression, with worsening in particular of left lung infiltrates. Please correlate clinically regarding likely etiology. IMPRESSION: RADIATION DOSE DELIVERED: Total DLP
--- NOTE | 2021-11-10 08:52 | DI.VRAD_ITS ---
PROCEDURE INFORMATION: Exam: XR Chest Exam date and time: 11/10/2021 7:57 AM Age: 81 years old Clinical indication: Shortness of breath TECHNIQUE: Imaging protocol: XR of the chest. Views: 1 view. COMPARISON: CR XR PORTABLE CHEST AP 10/30/2021 1:52 PM FINDINGS: Lungs: There are persistent multifocal patchy airspace opacities throughout both lungs, overall mildly increased throughout the left lung and at the right lung base when compared with the 10/30/2021 radiograph. There are low lung volumes. Pleural spaces: Unremarkable. No pleural effusion or pneumothorax. Heart/Mediastinum: Heart size is within normal limits. Cardiomediastinal contours are stable, within the limits of rotation. Bones/joints: Unremarkable. IMPRESSION: Low lung volumes with persistent multifocal airspace disease, overall mildly worsened/progressed compared to 10/30/2021. Dictated and Authenticated by: Nadeen Peterson MD. Ordering:SAROJ Purdy MD
[2021-11-10] MEDS: Polyethylene Glycol 3350 17 GM PACKET PO (08:58)
[2021-11-10] MEDS: Fluticasone NASAL SPRAY 16 GM BTL NS ×2 (08:58→20:45)
[2021-11-10] MEDS: Nystatin POWDER 60 GM JAR TP ×2 (08:58→20:18)
[2021-11-10] MEDS: Apixaban 5 MG TAB PO ×2 (08:59→20:17)
[2021-11-10] MEDS: Acetaminophen 325 MG TAB PO ×2 (08:59→21:48)
[2021-11-10] MEDS: Potassium Chloride 20 MEQ TABCR PO ×2 (09:00→20:17)
[2021-11-10] MEDS: guaiFENesin 600 MG TABCR 1200 MG PO ×2 (09:00→20:17)
[2021-11-10] MEDS: Cholecalciferol (Vitamin D3) 1,000 UNIT TAB 2000 UNITS PO (09:00)
[2021-11-10] MEDS: Docusate Sodium 100 MG CAP PO ×2 (09:00→20:17)
[2021-11-10] MEDS: Cetirizine 10 MG TAB 5 MG PO (09:00)
[2021-11-10] MEDS: Montelukast 10 MG TAB PO (09:00)
[2021-11-10] MEDS: Midodrine 2.5 MG TAB PO ×3 (09:00→20:17)
[2021-11-10] MEDS: Sertraline 25 MG TAB PO (09:00)
[2021-11-10] MEDS: Pantoprazole 40 MG TABCR PO (09:01)
[2021-11-10] MEDS: Ascorbic Acid 500 MG TAB PO ×2 (09:01→20:17)
[2021-11-10] MEDS: Furosemide 40 MG TAB PO (09:01)
[2021-11-10] MEDS: Finasteride 5 MG TAB PO (09:01)
[2021-11-10] MEDS: Furosemide 40 MG/4 ML VIAL IVP (10:24)
[2021-11-10] MEDS: Normal Saline Flush 10 ML SYR IVP ×2 (10:24→17:53)
--- NOTE | 2021-11-10 10:38 | W.PM.PROGNOT ---
Date of Service Date of service: 11/10/21 Time of Service: 10:38 Assessment and Plan Assessment and plan (1) Fungal pneumonia: Status: Acute Assessment and plan: Await speciation/sensitivities from BAL. Fungitell positive. Continue empiric micafungin. Unfortunately, requires some dose of steroid chronically due to PMR/chronic adrenal insufficiency, but we will attempt to keep that dose as low as possible without causing an adrenal crisis/worsening of PMR. (2) Acute respiratory failure with hypoxia: Status: Acute Assessment and plan: Respiratory failure worse today, with 4L of O2 required at rest. Clinically fluid overloaded - rales, has LE edema. Will give lasix 40 mg IV x 1 in addition to his regular 40 mg of furosemide daily. Continue empiric antifungals. Encourage pulmonary toileting. (3) Polymyalgia rheumatica: Assessment and plan: Resume prednisone - 20 mg today, 15 mg tomorrow, with plans to go back to 10 mg on Friday. I suspect that the patient's stiffness/shoulder pain today is due to PMR. (4) Hypotension: Status: Resolved Assessment and plan: Tolerating diuresis, flomax. On midodrine, which we might be able to wean off. Would hold off of re-initiation of other BP meds. (5) Acute kidney injury superimposed on chronic kidney disease: Assessment and plan: Resolved. Cr Actually better than baseline. Will monitor as we are diuresing. (6) DVT prophylaxis: Status: Acute Assessment and plan: On apixiban (7) Discharge planning issues: Status: Acute Assessment and plan: DNR/DNI. Continues to require hospitalization. PT, Palliative care consulted. Subjective Subjective Interval history since last seen: Mr Solorzano reports stiffness and pain in his shoulders since yesterday. Denies dizziness, endorses chest pain on inspiration on the right for quite a while - days/weeks. Endorses discomfort in epigastrium from coughing, but no nausea. States there is no change to his breathing positionally. Nursing notes that he is now requiring 4L of O2 at rest and that he has crackles. Exam Narrative Exam Narrative: General: Tired/uncomfortable appearing elderly male who is mildly dyspneic while laying flat in his recliner, A&Ox3 HEENT: EOMI, MMM Heart: RRR, no m/r/g Lungs: Rales at B bases Abdomen: soft,nontender, nondistended Extremities: +1 BLE edema while in TEDS; stiffness in B shoulders, but preserved strength - able to pull himself up. Objective Last Vital Signs Temp 36.1 C L 11/10/21 06:41 Pulse 91 H 11/10/21 06:41 Resp 18 11/10/21 07:53 BP 119/66 11/10/21 06:41 Pulse Ox 94 11/10/21 07:53 Laboratory Results - last 24 hr 11/07/21 11/09/21 11/09/21 16:25 12:30 12:30 WBC RBC Hgb Hct MCV MCH MCHC RDW Plt Count MPV Immature Gran % Neutrophils % Lymphocytes % Monocytes % Eosinophils % Basophils % Nucleated RBC % Absolute Neutrophils Absolute Lymphocytes Absolute Monocytes Absolute Eosinophils Absolute Basophils RBC Morphology Basophilic Stippling Sodium Potassium Chloride Carbon Dioxide Anion Gap BUN Creatinine Estimated GFR/1.73 m2 Glucose Calcium Fluid Source Fluid Color Fluid Clarity Fluid WBC Fld Polynuclear WBCs % Fluid Mononuclear Cell Fluid Other Cells Aspergillus Ag (EIA) <0.500 AFB Source Cancelled AFB Culture Final Res Cancelled Fungal Specimen Source Cancelled Fungal Culture Status Cancelled Fungal Culture Final Cancelled Fungal Smear Result Cancelled M. Tuberculosis PCR Cancelled Path Cons Comment AFB Smear (Ref Lab) Cancelled 11/09/21 11/10/21 11/10/21 12:30 05:39 05:39 WBC 10.65 RBC 3.64 L Hgb 11.9 L Hct 36.3 L MCV 99.7 H MCH 32.7 MCHC 32.8 RDW 12.8 Plt Count 307 MPV 9.9 Immature Gran % 13.2 Neutrophils % 69.6 Lymphocytes % 9.3 Monocytes % 3.5 Eosinophils % 3.8 Basophils % 0.6 Nucleated RBC % 0 Absolute Neutrophils 7.41 H Absolute Lymphocytes 0.99 L Absolute Monocytes 0.37 Absolute Eosinophils 0.41 Absolute Basophils 0.06 RBC Morphology See Below Basophilic Stippling Present Sodium 140 Potassium 4.1 Chloride 103 Carbon Dioxide 30.0 Anion Gap 7.0 BUN 28 H Creatinine 1.4 H Estimated GFR/1.73 m2 48.64 Glucose 130 H Calcium 8.7 Fluid Source Cancelled Fluid Color Cancelled Fluid Clarity Cancelled Fluid WBC Cancelled Fld Polynuclear WBCs % Cancelled Fluid Mononuclear Cell Cancelled Fluid Other Cells Cancelled Aspergillus Ag (EIA) AFB Source AFB Culture Final Res Fungal Specimen Source Fungal Culture Status Fungal Culture Final Fungal Smear Result M. Tuberculosis PCR Path Cons Comment Cancelled AFB Smear (Ref Lab) Objective Narrative Objective Narrative: CXR: Low lung volumes with persistent multifocal airspace disease, overall mildly worsened/progressed compared to 10/30/2021. Per my read, the patient has evidence of pulmonary edema with evidence of cephalization, more markings in the fissure. PAWSS Have you Been Recently Intoxicated or Drunk Within the Last 30 days?: No Have you Ever Experienced Previous Episodes of Alcohol Withdrawal?: No Have you ever Experienced Withdrawal Seizures?: No Have you ever Experienced Delirium Tremens(DT)s?: No Have you ever undergone Alcohol Rehabilitation Treatment (i.e, inpt ot outpatient treatment programs)?: No Have you ever Experienced Blackouts?: No Have you ever Combined Alcohol with other Downers within the last 90 days?: No Have you ever Combined Alcohol with any other Substance of Abuse during the last 90 days?: No Positive Blood Alcohol level on Presentation? [PCS.BAL]: No Evidence of Increased Autonomic Activity (i.e. HR>120, tremor, sweating, agitation, nausea)?: No Result: 0
[2021-11-10] MEDS: predniSONE 20 MG TAB PO (10:42)
--- NOTE | 2021-11-10 13:07 | PT.INNT ---
PT Notes Visit Reasons: Pneumonia held PT today as Al c/o ache all over. Not feeling well and gets worse when on his feet. Will check back in am
[2021-11-10] MEDS: Ketorolac 15 MG/ML VIAL IVP (17:52)
[2021-11-10] MEDS: Lidocaine 5% Patch 1 PATCH TP (17:52)
--- NOTE | 2021-11-10 18:32 | NUR.NOTE ---
Nursing Note: After discussing patients continuing discomfort. Dr. Nye ordered a one time dose of Ketorolac. this was administered ,next shift to be endorsed to follow up on effectiveness
[2021-11-10] MEDS: Tamsulosin 0.4 MG CAPCR 0.8 MG PO (21:48)
[2021-11-10] MEDS: rOPINIRole 1 MG TAB 2 MG PO (21:49)
[2021-11-11] VITALS (8 sets, daily range): BP systolic 116–138; BP diastolic 76–86; PULSE 60–98; RESP 2–24; TEMP 36.1–36.6; O2SAT 91–95
[2021-11-11] MEDS: Levothyroxine 75 MCG TAB PO (05:37)
[2021-11-11] MEDS: Lidocaine Patch Removal 1 EACH TD (05:39)
[2021-11-11 06:41] LABS: Abs Immature Grans 1.23 10^3/uL (0.0-0.06); Absolute Basophil Count 0.09 10^3/uL (0.0-0.2); Absolute Lymphocyte Count 1.07 10^3/uL (1.2-3.4); Absolute Monocyte Count 0.55 10^3/uL (0.1-0.8); Absolute Neutrophil Count 7.52 10^3/uL (1.2-6.7); Basophils % 0.8; Eosinophils % 2.8; HCT 36.7 % (40.0-50.0); HGB 12.1 g/dL (13.5-17.5); Immature Grans % 11.4; Lymphocytes % 9.9; MCH 32.6 pg (27.0-33.0); MCV 98.9 fL (80-95); MPV 9.8 fL (8.0-11.0); Monocytes % 5.1; Nucleated RBC 0 %; Platelet Count 314 10^3/uL (130-400); RBC 3.71 10^6/uL (4.36-5.78); RDW 12.5 % (11.8-14.1); RDW-SD 45.2 fL; WBC 10.76 10^3/uL (4.4-10.8)
[2021-11-11 06:52] LABS: Anion Gap 6.5 mmol/L (3-11); BUN 39 mg/dL (7-18); CO2 29.5 mmol/L (21.0-32.0); CREATININE 1.8 mg/dL (0.70-1.30); Calcium 8.9 mg/dL (8.5-10.1); Chloride 102 mmol/L (98-107); Estimated GFR 36.39 (mL/min/1.73m2); Glucose 109 mg/dL (74-106); Magnesium 1.9 mg/dL (1.8-2.4); Potassium 4.5 mmol/L (3.5-5.1); Sodium 138 mmol/L (136-145)
[2021-11-11 07:20] LABS: Basophilic Stippling Present; Diff Comment Agrees w/ Instrument
[2021-11-11] MEDS: Albuterol/Ipratropium 3 ML UPD VIAL UPD ×3 (07:40→21:23)
[2021-11-11 07:59] LABS: Gram Smear Result Neutrophils Present
[2021-11-11] MEDS: Polyethylene Glycol 3350 17 GM PACKET PO (08:26)
[2021-11-11] MEDS: Fluticasone NASAL SPRAY 16 GM BTL NS ×2 (08:26→21:25)
[2021-11-11] MEDS: Pantoprazole 40 MG TABCR PO (08:27)
[2021-11-11] MEDS: Apixaban 5 MG TAB PO ×2 (08:27→21:24)
[2021-11-11] MEDS: Nystatin POWDER 60 GM JAR TP ×2 (08:27→21:25)
[2021-11-11] MEDS: Cetirizine 10 MG TAB 5 MG PO (08:28)
[2021-11-11] MEDS: Sertraline 25 MG TAB PO (08:28)
[2021-11-11] MEDS: Midodrine 2.5 MG TAB PO ×3 (08:28→21:23)
[2021-11-11] MEDS: Montelukast 10 MG TAB PO (08:28)
[2021-11-11] MEDS: Docusate Sodium 100 MG CAP PO ×2 (08:28→21:23)
[2021-11-11] MEDS: Cholecalciferol (Vitamin D3) 1,000 UNIT TAB 2000 UNITS PO (08:28)
[2021-11-11] MEDS: predniSONE 5 MG TAB 7.5 MG PO (08:28)
[2021-11-11] MEDS: Furosemide 40 MG TAB PO (08:29)
[2021-11-11] MEDS: Ascorbic Acid 500 MG TAB PO ×2 (08:29→21:23)
[2021-11-11] MEDS: guaiFENesin 600 MG TABCR 1200 MG PO ×2 (08:29→21:23)
[2021-11-11] MEDS: Potassium Chloride 20 MEQ TABCR PO ×2 (08:29→21:23)
[2021-11-11] MEDS: Finasteride 5 MG TAB PO (08:29)
[2021-11-11] MEDS: Normal Saline Flush 10 ML SYR IVP ×2 (08:32→21:25)
--- NOTE | 2021-11-11 12:29 | PT.INTREAT ---
PT Notes Visit Reasons: Pneumonia Inpatient Physical Therapy Treatment Note [facility] Date: 11/11/21 SUBJECTIVE: Al states that he needs to get better. He is willing to try to go for a walk. OBJECTIVE: [] BED MOBILITY/TRANSFERS pt in recliner. Sit-stand: SBA Stand-sit:SBA GAIT Assistive Device:FWW Weight bearing: FWB Assist: CGA Distance: 0. O2 sats at rest on 2L prior to session was 93%. He fluctuated btwn 83%-92% on 5L. THEREX: see flowsheet for details of global U/LE strength and endurance. ASSESSMENT:tolerated session well despite SOB. He did not feel comfortable ambulating any distance due to feeling unstable. Took several resting breaks for deep breathing/ energy conservation. PLAN: continue to progress strength and endurance following POC TREATMENT CODE/TIME: 25 min [id number]
--- NOTE | 2021-11-11 17:01 | PGE_ITS ---
Date of Service Date of service: 11/11/21 Time of Service: 15:30 Assessment and Plan Assessment and plan (1) Fungal pneumonia: Status: Acute Assessment and plan: Continue empiric micafungin. Await speciation/sensitivities from BAL. Fungitell positive. (2) Acute respiratory failure with hypoxia: Status: Acute Assessment and plan: Better today - on 2L of O2 at rest rather than 4L yesterday. Fluid status is better as well. Continue 40 mg of furosemide daily. Continue empiric antifungals. Encourage pulmonary toileting. (3) Polymyalgia rheumatica: Assessment and plan: Discussed with Dr Rodrigues: will continue prednisone dose at 7.5 mg daily. (4) Hypotension: Status: Resolved Assessment and plan: Tolerating diuresis, flomax. On midodrine, which we might be able to wean off. Would hold off of re-initiation of other BP meds. (5) Acute kidney injury superimposed on chronic kidney disease: Assessment and plan: Resolved. (6) DVT prophylaxis: Status: Acute Assessment and plan: On apixiban (7) Discharge planning issues: Status: Acute Assessment and plan: DNR/DNI. Continues to require hospitalization. PT, Palliative care consulted. Subjective Subjective Interval history since last seen: Mr Solorzano states that he is feeling a little better. He reports pain in his backside from sitting in a chair as well as R hip bursitis pain which he knows he has. His shoulder stiffness is better. Breathing at rest is also better. Denies n/v. Exam Narrative Exam Narrative: General: elderly male who is looking more comfortable and engaged than yesterday, A&Ox3 HEENT: EOMI, MMM Heart: RRR, no m/r/g Lungs: Improved breath sounds - very minimal rales B. Abdomen: soft,nontender, nondistended Extremities: trace BLE edema while in TEDS Objective Last Vital Signs Temp 36.6 C 11/11/21 15:13 Pulse 88 11/11/21 15:13 Resp 20 11/11/21 15:13 BP 131/81 11/11/21 15:13 Pulse Ox 93 11/11/21 15:13 Laboratory Results - last 24 hr 11/11/21 11/11/21 06:10 06:10 WBC 10.76 RBC 3.71 L Hgb 12.1 L Hct 36.7 L MCV 98.9 H MCH 32.6 MCHC 33.0 RDW 12.5 Plt Count 314 MPV 9.8 Immature Gran % 11.4 Neutrophils % 70.0 Lymphocytes % 9.9 Monocytes % 5.1 Eosinophils % 2.8 Basophils % 0.8 Nucleated RBC % 0 Absolute Neutrophils 7.52 H Absolute Lymphocytes 1.07 L Absolute Monocytes 0.55 Absolute Eosinophils 0.30 Absolute Basophils 0.09 RBC Morphology See Below Basophilic Stippling Present Sodium 138 Potassium 4.5 Chloride 102 Carbon Dioxide 29.5 Anion Gap 6.5 BUN 39 H D Creatinine 1.8 H Estimated GFR/1.73 m2 36.39 Glucose 109 H Calcium 8.9 Magnesium 1.9 PAWSS Have you Been Recently Intoxicated or Drunk Within the Last 30 days?: No Have you Ever Experienced Previous Episodes of Alcohol Withdrawal?: No Have you ever Experienced Withdrawal Seizures?: No Have you ever Experienced Delirium Tremens(DT)s?: No Have you ever undergone Alcohol Rehabilitation Treatment (i.e, inpt ot outpatient treatment programs)?: No Have you ever Experienced Blackouts?: No Have you ever Combined Alcohol with other Downers within the last 90 days?: No Have you ever Combined Alcohol with any other Substance of Abuse during the last 90 days?: No Positive Blood Alcohol level on Presentation? [PCS.BAL]: No Evidence of Increased Autonomic Activity (i.e. HR>120, tremor, sweating, agitati on, nausea)?: No Result: 0
[2021-11-11] MEDS: Lidocaine 5% Patch 1 PATCH TP (18:39)
[2021-11-11] MEDS: rOPINIRole 1 MG TAB 2 MG PO (21:23)
[2021-11-11] MEDS: Tamsulosin 0.4 MG CAPCR 0.8 MG PO (21:23)
[2021-11-12] VITALS (9 sets, daily range): BP systolic 114–130; BP diastolic 75–85; PULSE 89–98; RESP 2–24; TEMP 36.3–36.7; O2SAT 85–99
--- NOTE | 2021-11-12 | DI.CT_ITS ---
Exam(s) CT CHEST WO EXAM: CT CHEST WO CLINICAL HISTORY: f/u infiltrates TECHNIQUE: Imaging Protocol: Axial computed tomography images with coronal and sagittal reformatted images were created and reviewed CONTRAST MATERIAL: Noncontrast COMPARISON: CT CT ABD AORTA CTA W RUNOFF from 07/02/2019 CR XR CHEST 2V PA LATERAL from 08/03/[address] ABDOMEN PELVIS WO from 08/27/[address] CHEST PE CTA from 10/03/[address] CHEST PE CTA from 11/02/2021 CR,XR XR PORTABLE CHEST AP from 11/10/2021 FINDINGS: Tracheobronchial tree: No bronchiectasis or mucous plugging. Mediastinum and Elsa: No dominant adenopathy or fluid collection. Pulmonary parenchyma: Persistent bilateral infiltrates with some improvement since prior CT.. Underl melina fibrotic changes. Pleura: No effusion or pneumothorax. Previously noted tiny bilateral pleural effusions have resolved. Heart: The heart is not dilated. Mild coronary artery calcifications are seen. No change pericardial cyst adjacent to the right atrium. Aorta: Dilatation of the ascending aorta. Mild atherosclerotic changes. Upper abdomen: Unremarkable. Lymph nodes: Within normal limits. Bones: Syndesmophyte formation along the thoracic spine. No fractures. Scoliosis. Soft tissues: Unremarkable. IMPRESSION: Continued improvement in the areas of bilateral infiltration with the resume mild residual areas of i ncreased density as well as pulmonary fibrosis and scarring. RADIATION DOSE DELIVERED: 676.7mGy.cm Total DLP DATA REPOSITORY: All CT scans at this facility are submitted to the National Radiology Data Registry (NRDR) Dose Index Registry (DIR) with the [employer] ([employer]). RADIATION OPTIMIZATION: All CT scans at this facility use at least one of these dose optimization te chniques: automated exposure control; mA and/or kV adjustment per patient size (includes targeted exa ms where dose is matched to clinical indication); or iterative reconstruction.
[2021-11-12] MEDS: Lidocaine Patch Removal 1 EACH TD (06:39)
[2021-11-12] MEDS: Levothyroxine 75 MCG TAB PO (06:39)
[2021-11-12 07:16] LABS: HCT 36.2 % (40.0-50.0); HGB 12.1 g/dL (13.5-17.5); MCH 32.9 pg (27.0-33.0); MCHC 33.4 % (32.0-36.0); MCV 98.4 fL (80-95); MPV 9.8 fL (8.0-11.0); Nucleated RBC 0 %; Platelet Count 288 10^3/uL (130-400); RBC 3.68 10^6/uL (4.36-5.78); RDW 12.6 % (11.8-14.1); RDW-SD 45.4 fL; WBC 10.35 10^3/uL (4.4-10.8)
[2021-11-12 07:43] LABS: ALT 33 U/L (16-63); AST 20 U/L (15-37); Albumin 2.5 g/dL (3.4-5.0); Alkaline Phosphatase 71 U/L (46-116); BUN 39 mg/dL (7-18); Bilirubin, Direct 0.1 mg/dL (0.0-0.2); Bilirubin, Total 0.6 mg/dL (0.2-1.0); C-Reactive Protein 5.88 mg/dL (0.0-0.3); CREATININE 1.7 mg/dL (0.70-1.30); Chloride 104 mmol/L (98-107); Estimated GFR 38.88 (mL/min/1.73m2); Glucose 91 mg/dL (74-106); Potassium 4.4 mmol/L (3.5-5.1); Sodium 142 mmol/L (136-145)
[2021-11-12] MEDS: Albuterol/Ipratropium 3 ML UPD VIAL UPD ×3 (07:44→21:03)
[2021-11-12] MEDS: Fluticasone NASAL SPRAY 16 GM BTL NS ×2 (07:47→21:03)
[2021-11-12] MEDS: predniSONE 5 MG TAB 7.5 MG PO (07:47)
[2021-11-12] MEDS: Potassium Chloride 20 MEQ TABCR PO ×2 (07:47→21:03)
[2021-11-12] MEDS: Polyethylene Glycol 3350 17 GM PACKET PO (07:48)
[2021-11-12] MEDS: Ascorbic Acid 500 MG TAB PO ×2 (07:48→21:02)
[2021-11-12] MEDS: guaiFENesin 600 MG TABCR 1200 MG PO ×2 (07:48→21:02)
[2021-11-12] MEDS: Sertraline 25 MG TAB PO (07:48)
[2021-11-12] MEDS: Finasteride 5 MG TAB PO (07:48)
[2021-11-12] MEDS: Midodrine 2.5 MG TAB PO ×3 (07:48→21:02)
[2021-11-12] MEDS: Montelukast 10 MG TAB PO (07:48)
[2021-11-12] MEDS: Cetirizine 10 MG TAB 5 MG PO (07:48)
[2021-11-12] MEDS: Cholecalciferol (Vitamin D3) 1,000 UNIT TAB 2000 UNITS PO (07:48)
[2021-11-12] MEDS: Apixaban 5 MG TAB PO ×2 (07:48→21:03)
[2021-11-12] MEDS: Nystatin POWDER 60 GM JAR TP ×2 (07:49→21:04)
[2021-11-12] MEDS: Docusate Sodium 100 MG CAP PO ×2 (07:49→21:02)
[2021-11-12] MEDS: Furosemide 40 MG TAB PO (07:49)
[2021-11-12] MEDS: Pantoprazole 40 MG TABCR PO (07:49)
[2021-11-12 07:51] LABS: Absolute Eosinophil Count 0.21 10^3/uL (0.0-0.7); Absolute Lymphocyte Count 1.14 10^3/uL (1.2-3.4); Absolute Monocyte Count 0.83 10^3/uL (0.1-0.8); Absolute Neutrophil Count 7.14 10^3/uL (1.2-6.7); Atypical Lymphocytes % 2; Bands % 7; Metamyelocytes % 7; Myelocytes % 3
[2021-11-12 07:52] LABS: Diff Comment Manual Differential; RBC Morphology Normal
[2021-11-12] MEDS: fentaNYL 12 MCG PATCH TD (07:56)
--- NOTE | 2021-11-12 08:50 | PCPN_ITS ---
Date of service: 11/12/21 Time of Service: 08:50 Assessment and Plan Assessment and plan (1) Fungal pneumonia: Status: Acute Assessment and plan: Per Dr. Carter. Many of the labs are still pending. Dr. Nye is reducing the prednisone to the lowest possible level. (2) Acute respiratory failure with hypoxia: Status: Acute (3) Acute kidney injury superimposed on CKD: Status: Acute (4) PMR (polymyalgia rheumatica): Status: Acute Assessment and plan: Unfortunately his PMR is flaring with the reduction of the prednisone. He would like something for pain control. He feels that he would be able to be more active and improve his quality of life as well as his recovery. I did speak to Dr. Nye and she is going to order a fentanyl patch. I did stop to [place] this evening. He is doing much better with the pain medication. He feels like he can move and participate more in rehab. Subjective Subjective Interval history since last seen: Al is discouraged. He was not expecting it to take such a long time to improve. He states that his PMR is now flaring with the reduction of his prednisone. T here was a time when he was without his prednisone, and now is on it but reducing the dose due to his fungal infection in his lungs. He does admit that the pain is creating a problem as far is his energy to get up and go and do things. He is trying to participate in PT but it is difficult because of the pain. His sister has come to visit. His children have not. Al states that they call every few days. Exam Narrative Exam Narrative: He is sitting in his chair. He is cooperative. He does smile at times. His heart is regular. He has a systolic murmur. His lungs difficult to assess I can hear the moisturizing mechanism when he takes a breath in. His abdomen is soft. Objective Last Vital Signs Temp 97.3 F L 11/12/21 07:45 Pulse 98 H 11/12/21 07:45 Resp 24 11/12/21 07:45 BP 128/77 11/12/21 07:45 Pulse Ox 85 L 11/12/21 07:45 Laboratory Results - last 24 hr 11/12/21 11/12/21 06:34 06:34 WBC 10.35 RBC 3.68 L Hgb 12.1 L Hct 36.2 L MCV 98.4 H MCH 32.9 MCHC 33.4 RDW 12.6 Plt Count 288 MPV 9.8 Immature Gran % 0.0 Neutrophils % 62.0 Band Neutrophils % 7 Lymphocytes % 9.0 Atypical Lymphs % 2 Monocytes % 8.0 Eosinophils % 2.0 Basophils % 0.0 Metamyelocytes % 7 Myelocytes % 3 Nucleated RBC % 0 Absolute Neutrophils 7.14 H Absolute Lymphocytes 1.14 L Absolute Monocytes 0.83 H Absolute Eosinophils 0.21 Absolute Basophils 0.00 RBC Morphology Normal Sodium 142 Potassium 4.4 Chloride 104 Carbon Dioxide 29.0 Anion Gap 9.0 BUN 39 H Creatinine 1.7 H Estimated GFR/1.73 m2 38.88 Glucose 91 Calcium 9.0 Magnesium 2.0 Total Bilirubin 0.6 Conjugated Bilirubin 0.1 AST 20 ALT 33 Alkaline Phosphatase 71 C-Reactive Protein 5.88 H Total Protein 6.0 L Albumin 2.5 L
--- NOTE | 2021-11-12 09:01 | W.PULMPROG ---
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 He has been treated for a recurrent sinusitis and received extended courses of several antibiotics for this as well as a pneumonia. His Fungitell return very positive and subsequent testing was also positive and so steroids were discontinued. I have been empirically treating with micafungin and will continue the Bactrim. There was confusion about running a cell diff on the BAL and [facility] did not receive and order for this. I verified with them today that I do want it run. The bacterial stain and culture is negative. The preliminary fungal and AFB stain were also negative. I will reorder and fungitell, repeat the aspergilus Ag and send for an aspergillus Ab today in addition to repeating the chest CT to assess the infiltrates. Fungal Pneumonia - Fungitell returned very positive and repeat is also very positive- will repeat another - Aspergillus Ag negative - will repeat - BAL cultures pending - BAL cell diff pending - autoimmune panel negative - urine histo, urine blasto negative - repeat blood cultures no growth to date - continue Mucinex, VibraPEP, prn albuterol neb - continue micafungin 100mg daily - will plan to switch to voriconazole (200mg bid for 6-12 weeks) - Dr. Nye will start PA process with case management - will need LFT's weekly for the first month then monthly - continue Bactrim PO for now - would remove sulfa allergy from allergy list Sinusitis - has been treated by now with all the antibiotics he has been on. 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 He is still feeling congested in his chest but is coughing out some sputum. Exam Narrative Exam Narrative: Gen: NAD, normal respiratory effort, well-nourished HENT: PERRL, nasal turbinates normal without erythema or inflammation, moist oral mucosa, Mallampati 2, No LAD or JVD Chest: No respiratory distress, normal appearance of chest, rales diffusely, no wheezing for me this morning Heart: regular rate and rhythym, no murmurs, rubs or gallops Abdomen: Non-distended, soft, non tender Extremities: No clubbing, cyanosis, rashes. LE edema Neuro: AAOx3 , non focal Psych: cooperative, appropriate mental affect Objective Last Vital Signs Temp 36.3 C L 11/12/21 07:45 Pulse 98 H 11/12/21 07:45 Resp 24 11/12/21 07:45 BP 128/77 11/12/21 07:45 Pulse Ox 85 L 11/12/21 07:45 Laboratory Results - last 24 hr 11/09/21 11/12/21 11/12/21 12:30 06:34 06:34 WBC 10.35 RBC 3.68 L Hgb 12.1 L Hct 36.2 L MCV 98.4 H MCH 32.9 MCHC 33.4 RDW 12.6 Plt Count 288 MPV 9.8 Immature Gran % 0.0 Neutrophils % 62.0 Band Neutrophils % 7 Lymphocytes % 9.0 Atypical Lymphs % 2 Monocytes % 8.0 Eosinophils % 2.0 Basophils % 0.0 Metamyelocytes % 7 Myelocytes % 3 Nucleated RBC % 0 Absolute Neutrophils 7.14 H Absolute Lymphocytes 1.14 L Absolute Monocytes 0.83 H Absolute Eosinophils 0.21 Absolute Basophils 0.00 RBC Morphology Normal Sodium 142 Potassium 4.4 Chloride 104 Carbon Dioxide 29.0 Anion Gap 9.0 BUN 39 H Creatinine 1.7 H Estimated GFR/1.73 m2 38.88 Glucose 91 Calcium 9.0 Magnesium 2.0 Total Bilirubin 0.6 Conjugated Bilirubin 0.1 AST 20 ALT 33 Alkaline Phosphatase 71 C-Reactive Protein 5.88 H Total Protein 6.0 L Albumin 2.5 L Gram Stain Neutrophils Present A Aerobic Culture No Growth Ref Test Specimen Type Not Applicable Ref Report Verification Not Applicable Results Medications Medications: Active Medications Generic Name Dose Route Start Last Admin Trade Name Freq PRN Reason Stop Dose Admin Acetaminophen 0 mg 10/24/21 18:34 11/10/21 21:48 Acetaminophen 325 Mg Tab PO 650 mg Q4H PRN PRN Administration Acetaminophen/Aspirin/Caffeine 2 each 11/02/21 17:01 Acetaminophen 250 Mg/Aspirin 250 Mg/Caffeine 65 Mg Tab PO Q6H PRN PRN Al Hydrox/Mg Hydrox/Simethicone 30 ml 10/28/21 06:00 10/28/21 06:21 Mylanta Suspension 30 Ml Cup PO 30 ml Q4H PRN PRN Administration Albuterol Sulfate 2.5 mg 10/24/21 18:34 11/02/21 06:38 Albuterol 2.5 Mg/3 Ml Inh Soln Vial UPD 2.5 mg Q2H PRN PRN Administration Albuterol/Ipratropium 3 ml 11/09/21 13:15 Albuterol/Ipratropium 3 Ml Upd Vial UPD Q2H PRN PRN for SOB, wheezing, or cough Albuterol/Ipratropium 3 ml 11/09/21 20:00 11/12/21 07:44 Albuterol/Ipratropium 3 Ml Upd Vial UPD 3 ml TID DEVENDRA Administration Apixaban 5 mg 10/24/21 20:00 11/12/21 07:48 Apixaban 5 Mg Tab PO 5 mg BID DEVENDRA Administration Ascorbic Acid 500 mg 11/02/21 20:00 11/12/21 07:48 Ascorbic Acid 500 Mg Tab PO 500 mg BID DEVENDRA Administration Cetirizine HCl 5 mg 10/28/21 12:30 11/12/21 07:48 Cetirizine 10 Mg Tab PO 5 mg DAILY DEVENDRA Administration Cholecalciferol 2,000 units 11/03/21 08:30 11/12/21 07:48 Cholecalciferol (Vitamin D3) 1,000 Unit Tab PO 2,000 units DAILY DEVENDRA Administration Dimethicone/Zinc Oxide 0 gm 10/24/21 18:34 Christina Protect Cream 142 Gm Tube TP PRN PRN Docusate Sodium 100 mg 11/04/21 20:00 11/12/21 07:49 Docusate Sodium 100 Mg Cap PO 100 mg BID DEVENDRA Administration Fentanyl 12 mcg 11/12/21 08:00 11/12/21 07:56 Fentanyl 12 Mcg Patch TD 12 mcg Q72H DEVENDRA Administration Finasteride 5 mg 11/03/21 15:10 11/12/21 07:48 Finasteride 5 Mg Tab PO 5 mg DAILY DEVENDRA Administration Fluticasone Propionate 16 gm 10/25/21 08:30 11/12/21 07:47 Fluticasone Nasal [place] 16 Gm Btl NS 2 sprays BID DEVENDRA Administration Furosemide 40 mg 11/07/21 08:30 11/12/21 07:49 Furosemide 40 Mg Tab PO 40 mg DAILY DEVENDRA Administration Guaifenesin 1,200 mg 10/25/21 08:30 11/12/21 07:48 Guaifenesin 600 Mg Tabcr PO 1,200 mg BID DEVENDRA Administration Micafungin Sodium 100 mg/ 100 mls @ 100 mls/hr 11/07/21 14:00 11/11/21 15:33 Sodium Chloride IVPB 100 mls/hr Q24H DEVENDRA Administration Ipratropium [place] 0 ml 10/25/21 08:30 11/12/21 07:47 Ipratropium 0.03% 30 Ml Btl NS 2 sprays BID DEVENDRA Administration Lactobacillus Acidophilus/Casei 1 cap 11/03/21 08:30 11/12/21 07:47 L. Acidophilus, Casei, Rhamnosus Cap PO 1 cap DAILY DEVENDRA Administration Levothyroxine Sodium 75 mcg 10/26/21 06:00 11/12/21 06:39 Levothyroxine 75 Mcg Tab PO 75 mcg DAILY@0600 DEVENDRA Administration Lidocaine 1 patch 11/01/21 18:00 11/11/21 18:39 Lidocaine 5% Patch TP 1 patch Q24H DEVENDRA Administration Midodrine 2.5 mg 11/02/21 15:00 11/12/21 07:48 Midodrine 2.5 Mg Tab PO 2.5 mg TID DEVENDRA Administration Miscellaneous 1 each 11/02/21 06:00 11/12/21 06:39 Lidocaine Patch Removal TD 1 each Q24H DEVENDRA Administration Montelukast Sodium 10 mg 10/25/21 08:30 11/12/21 07:48 Montelukast 10 Mg Tab PO 10 mg DAILY DEVENDRA Administration Nystatin 0 gm 11/05/21 20:00 11/12/21 07:49 Nystatin Powder 60 Gm Jar TP 1 applic BID DEVENDRA Administration Ondansetron HCl 4 mg 10/28/21 12:42 Ondansetron 4 Mg/2 Ml Vial IVP Q4H PRN PRN Pantoprazole Sodium 40 mg 10/26/21 07:30 11/12/21 07:49 Pantoprazole 40 Mg Tabcr PO 40 mg DAILY@0730 DEVENDRA Administration Polyethylene Glycol 17 gm 11/04/21 14:45 11/12/21 07:48 Polyethylene Glycol 3350 17 Gm Packet PO 17 gm DAILY DEVENDRA Administration Potassium Chloride 20 meq 11/06/21 11:05 11/12/21 07:47 Potassium Chloride 20 Meq Tabcr PO 20 meq BID DEVENDRA Administration Prednisone 7.5 mg 11/11/21 08:30 11/12/21 07:47 Prednisone 5 Mg Tab PO 7.5 mg DAILY DEVENDRA Administration Ropinirole HCl 2 mg 10/24/21 22:00 11/11/21 21:23 Ropinirole 1 Mg Tab PO 2 mg HS DEVENDRA Administration Sertraline HCl 25 mg 10/25/21 08:30 11/12/21 07:48 Sertraline 25 Mg Tab PO 25 mg DAILY DEVENDRA Administration Sodium Chloride 0 ml 10/24/21 20:59 11/11/21 21:25 Normal Saline Flush 10 Ml Syr IVP 10 ml PRN PRN Administration Tamsulosin HCl 0.8 mg 11/03/21 22:00 11/11/21 21:23 Tamsulosin 0.4 Mg Capcr PO 0.8 mg HS DEVENDRA Administration Trimethoprim/Sulfamethoxazole 1 tab 11/07/21 08:30 11/12/21 07:48 Sulfameth/Trimeth Reg Str Tab PO 1 tab DAILY DEVENDRA Administration Allergies Sulfa (Sulfonamide Antibiotics) Adverse Reaction (Intermediate, Verified 10/24/21 16:31) Its been along time cat dander Adverse Reaction (Mild, Verified 10/24/21 16:31) penicillin V Adverse Reaction (Mild, Verified 10/24/21 16:31) nausea salicylates Adverse Reaction (Mild, Verified 10/24/21 16:31) up set stomach Labs Result Diagrams: 11/12/21 06:34 11/12/21 06:34 Labs: 11/07/21 12:55 Blood Blood Culture - Preliminary NO GROWTH 96 HOURS 11/07/21 12:45 Blood Blood Culture - Preliminary NO GROWTH 96 HOURS 11/02/21 15:30 Sputum Sputum Culture - Final Gram Negative Shannan,Mixed Normal Shannan 11/02/21 15:30 Sputum Gram Stain - Final 10/29/21 23:00 Blood Blood Culture - Final NO GROWTH 120 HOURS 10/29/21 22:45 Blood Blood Culture - Final NO GROWTH 120 HOURS 10/28/21 14:19 Blood Blood Culture - Final NO GROWTH 120 HOURS 10/28/21 14:19 Blood Blood Culture - Final NO GROWTH 120 HOURS 10/30/21 10:17 Nasopharynx Influenza Types A,B Antigen - Final 10/24/21 17:39 Blood Blood Culture - Final NO GROWTH 120 HOURS 10/24/21 17:30 Blood Blood Culture - Final NO GROWTH 120 HOURS 10/24/21 18:55 Nose MRSA Screen - Final Laboratory Tests Range/Units 10/24/21 10/24/21 10/24/21 16:55 16:55 16:55 WBC (4.4-10.8) 10^3/uL 11.13 H RBC (4.36-5.78) 10^6/uL 3.91 L Hgb (13.5-17.5) g/dL 13.1 L Hct (40.0-50.0) % 39.0 L MCV (80-95) fL 99.7 H MCH (27.0-33.0) pg 33.5 H MCHC (32.0-36.0) % 33.6 RDW (11.8-14.1) % 12.4 Plt Count (130-400) 10^3/uL 133 D MPV (8.0-11.0) fL 10.0 Immature Gran % 2.3 Neutrophils % 89.6 Band Neutrophils % Lymphocytes % 2.8 Atypical Lymphs % Monocytes % 4.9 Eosinophils % 0.2 Basophils % 0.2 Metamyelocytes % Myelocytes % Nucleated RBC % % 0 Absolute Neutrophils (1.2-6.7) 10^3/uL 9.97 H Absolute Lymphocytes (1.2-3.4) 10^3/uL 0.31 L Absolute Monocytes (0.1-0.8) 10^3/uL 0.55 Absolute Eosinophils (0.0-0.7) 10^3/uL 0.02 Absolute Basophils (0.0-0.2) 10^3/uL 0.02 RBC Morphology Basophilic Stippling ESR (0-20) mm/hr Sample Site ABG Sample Site ABG pH (7.35-7.45) ABG pCO2 (35-45) mmHg ABG pO2 (80-105) mmHg ABG HCO3 (22-26) mmol/L ABG Total CO2 (23-27) mmol/L ABG O2 Saturation (95-98) % ABG Base Excess (-2-3) mmol/L VBG Lactate (0.6-1.4) mmol/L Oxygen Liter Flow FiO2 FiO2 (liters per min) L Sodium (136-145) mmol/L 135 L Potassium (3.5-5.1) mmol/L 4.1 Chloride (98-107) mmol/L 99 Carbon Dioxide (21.0-32.0) mmol/L 31.1 Anion Gap (3-11) mmol/L 4.9 BUN (7-18) mg/dL 30 H Creatinine (0.70-1.30) mg/dL 1.7 H Estimated GFR/1.73 m2 (mL/min/1.73m2) 38.88 Glucose (74-106) mg/dL 107 H Calcium (8.5-10.1) mg/dL 8.2 L Magnesium (1.8-2.4) mg/dL 1.8 Ferritin (22-322) ng/mL Total Bilirubin (0.2-1.0) mg/dL 0.8 Conjugated Bilirubin (0.0-0.2) mg/dL AST (15-37) U/L 20 ALT (16-63) U/L 18 Alkaline Phosphatase (46-116) U/L 47 Troponin I (<or=60) ng/L < 50 C-Reactive Protein (0.0-0.3) mg/dL NT-Pro-B Natriuret Pep (<300) pg/mL 658 H Total Protein (6.4-8.2) g/dL 5.9 L Albumin (3.4-5.0) g/dL 3.0 L Procalcitonin ng/mL TSH (0.36-3.74) uIU/mL C. albicans Allerg IgE kU/L M. racemosus Allrg IgE kU/L Urine Color (Yellow) Urine Clarity (Clear) Urine pH (5-8) Ur Specific [place] (1.005-1.025) Urine Protein (Negative) mg/dL Urine Ketones (Negative) mg/dL Urine Blood (Negative) Urine Nitrite (Negative) Urine Bilirubin (Negative) Urine Urobilinogen (Up TO 0.2) EU/dL Ur Leukocyte Esterase (Negative) Urine RBC (0-2) HPF Urine WBC (0-5) HPF Ur Epithelial Cells (Negative) HPF Urine Crystals (Negative) HPF Urine Bacteria (Negative) HPF Urine Casts (Negative) LPF Urine Mucus (Negative) Ur Culture Indicated? Urine Glucose (Negative) mg/dL Fluid Source Fluid Color Fluid Clarity Fluid WBC Fld Polynuclear WBCs % Fluid Mononuclear Cell Fluid Other Cells Vancomycin Trough Rheumatoid Factor (<12.0) IU/mL Cyclic Citrull Peptide (<5.0) U/mL ANNIE Titer ANNIE Titer 2 ANNIE Titer 3 ANNIE Interpretation (Negative) ANCA Immunofluorescen (Negative) ANCA Titer ANCA Pattern SS-A Antibody (<20.0) Units SS-B Antibody (<20.0) Units Scl-70 IgG Ab U Double Strand DNA Ab (<30.0) IU/mL Gram Stain Adenovirus DNA (Negative) Blastomyces Ag Result Blastomyces Ag Comment ng/mL COVID-19 Source Nasal/Nares SARS-CoV-2 (PCR) (Negative) Negative Urine Histoplasma Ag U Histoplasma Ag Index ng/mL Human Metapneumovir RNA (Negative) Influenza Type A (PCR) (Negative) Negative Influenza Type B (PCR) (Negative) Negative L.pneumophila Antibody (Negative) Urine Legionella Ag (Negative) M. pneumoniae Source M. pneumoniae (PCR) Parainfluenza 1 (PCR) (Negative) Parainfluenza 2 (PCR) (Negative) Parainfluenza 3 (PCR) (Negative) Parainfluenza 4 (PCR) (Negative) Aspergillus Ag (EIA) (<0.5) index RSV (PCR) (Negative) Negative Resp Viral Spec Desc Rhinovirus (PCR) (Negative) AFB Source AFB Culture Final Res Aerobic Culture Fungal Specimen Source B-(1,3)-D-Glucan Quant (<60 pg/mL) pg/mL B-(1,3)-D-Glucan Qual (Negative) Fungal Culture Status Fungal Culture Final Fungal Smear Result M. Tuberculosis PCR Path Cons Comment AFB Smear (Ref Lab) Add-On Test Request Ref Test Specimen Type Ref Report Verification Range/Units 10/24/21 10/24/21 10/24/21 17:12 17:12 17:20 WBC (4.4-10.8) 10^3/uL RBC (4.36-5.78) 10^6/uL Hgb (13.5-17.5) g/dL Hct (40.0-50.0) % MCV (80-95) fL MCH (27.0-33.0) pg MCHC (32.0-36.0) % RDW (11.8-14.1) % Plt Count (130-400) 10^3/uL MPV (8.0-11.0) fL Immature Gran % Neutrophils % Band Neutrophils % Lymphocytes % Atypical Lymphs % Monocytes % Eosinophils % Basophils % Metamyelocytes % Myelocytes % Nucleated RBC % % Absolute Neutrophils (1.2-6.7) 10^3/uL Absolute Lymphocytes (1.2-3.4) 10^3/uL Absolute Monocytes (0.1-0.8) 10^3/uL Absolute Eosinophils (0.0-0.7) 10^3/uL Absolute Basophils (0.0-0.2) 10^3/uL RBC Morphology Basophilic Stippling ESR (0-20) mm/hr Sample Site ABG Sample Site ABG pH (7.35-7.45) ABG pCO2 (35-45) mmHg ABG pO2 (80-105) mmHg ABG HCO3 (22-26) mmol/L ABG Total CO2 (23-27) mmol/L ABG O2 Saturation (95-98) % ABG Base Excess (-2-3) mmol/L VBG Lactate (0.6-1.4) mmol/L 2.2 H* Oxygen Liter Flow FiO2 FiO2 (liters per min) L Sodium (136-145) mmol/L Potassium (3.5-5.1) mmol/L Chloride (98-107) mmol/L Carbon Dioxide (21.0-32.0) mmol/L Anion Gap (3-11) mmol/L BUN (7-18) mg/dL Creatinine (0.70-1.30) mg/dL Estimated GFR/1.73 m2 (mL/min/1.73m2) Glucose (74-106) mg/dL Calcium (8.5-10.1) mg/dL Magnesium (1.8-2.4) mg/dL Ferritin (22-322) ng/mL Total Bilirubin (0.2-1.0) mg/dL Conjugated Bilirubin (0.0-0.2) mg/dL AST (15-37) U/L ALT (16-63) U/L Alkaline Phosphatase (46-116) U/L Troponin I (<or=60) ng/L C-Reactive Protein (0.0-0.3) mg/dL NT-Pro-B Natriuret Pep (<300) pg/mL Total Protein (6.4-8.2) g/dL Albumin (3.4-5.0) g/dL Procalcitonin ng/mL 0.2 TSH (0.36-3.74) uIU/mL C. albicans Allerg IgE kU/L M. racemosus Allrg IgE kU/L Urine Color (Yellow) Yellow Urine Clarity (Clear) Clear Urine pH (5-8) 6.0 Ur Specific [place] (1.005-1.025) 1.015 Urine Protein (Negative) mg/dL Negative Urine Ketones (Negative) mg/dL Negative Urine Blood (Negative) Moderate H Urine Nitrite (Negative) Negative Urine Bilirubin (Negative) Negative Urine Urobilinogen (Up TO 0.2) EU/dL 0.2 Ur Leukocyte Esterase (Negative) Negative Urine RBC (0-2) HPF >50 H Urine WBC (0-5) HPF 0-2 Ur Epithelial Cells (Negative) HPF Few Urine Crystals (Negative) HPF Negative Urine Bacteria (Negative) HPF Negative Urine Casts (Negative) LPF Negative Urine Mucus (Negative) Trace Ur Culture Indicated? No Urine Glucose (Negative) mg/dL Negative Fluid Source Fluid Color Fluid Clarity Fluid WBC Fld Polynuclear WBCs % Fluid Mononuclear Cell Fluid Other Cells Vancomycin Trough Rheumatoid Factor (<12.0) IU/mL Cyclic Citrull Peptide (<5.0) U/mL ANNIE Titer ANNIE Titer 2 ANNIE Titer 3 ANNIE Interpretation (Negative) ANCA Immunofluorescen (Negative) ANCA Titer ANCA Pattern SS-A Antibody (<20.0) Units SS-B Antibody (<20.0) Units Scl-70 IgG Ab U Double Strand DNA Ab (<30.0) IU/mL Gram Stain Adenovirus DNA (Negative) Blastomyces Ag Result Blastomyces Ag Comment ng/mL COVID-19 Source SARS-CoV-2 (PCR) (Negative) Urine Histoplasma Ag U Histoplasma Ag Index ng/mL Human Metapneumovir RNA (Negative) Influenza Type A (PCR) (Negative) Influenza Type B (PCR) (Negative) L.pneumophila Antibody (Negative) Urine Legionella Ag (Negative) M. pneumoniae Source M. pneumoniae (PCR) Parainfluenza 1 (PCR) (Negative) Parainfluenza 2 (PCR) (Negative) Parainfluenza 3 (PCR) (Negative) Parainfluenza 4 (PCR) (Negative) Aspergillus Ag (EIA) (<0.5) index RSV (PCR) (Negative) Resp Viral Spec Desc Rhinovirus (PCR) (Negative) AFB Source AFB Culture Final Res Aerobic Culture Fungal Specimen Source B-(1,3)-D-Glucan Quant (<60 pg/mL) pg/mL B-(1,3)-D-Glucan Qual (Negative) Fungal Culture Status Fungal Culture Final Fungal Smear Result M. Tuberculosis PCR Path Cons Comment AFB Smear (Ref Lab) Add-On Test Request Ref Test Specimen Type Ref Report Verification Range/Units 10/25/21 10/25/21 10/26/21 06:45 06:45 06:26 WBC (4.4-10.8) 10^3/uL 8.35 RBC (4.36-5.78) 10^6/uL 3.56 L Hgb (13.5-17.5) g/dL 11.9 L Hct (40.0-50.0) % 36.0 L MCV (80-95) fL 101.1 H MCH (27.0-33.0) pg 33.4 H MCHC (32.0-36.0) % 33.1 RDW (11.8-14.1) % 12.4 Plt Count (130-400) 10^3/uL 104 L MPV (8.0-11.0) fL 10.3 Immature Gran % 2.3 Neutrophils % 80.6 Band Neutrophils % Lymphocytes % 8.5 Atypical Lymphs % Monocytes % 4.8 Eosinophils % 3.4 Basophils % 0.4 Metamyelocytes % Myelocytes % Nucleated RBC % % 0 Absolute Neutrophils (1.2-6.7) 10^3/uL 6.74 H Absolute Lymphocytes (1.2-3.4) 10^3/uL 0.71 L Absolute Monocytes (0.1-0.8) 10^3/uL 0.40 Absolute Eosinophils (0.0-0.7) 10^3/uL 0.28 Absolute Basophils (0.0-0.2) 10^3/uL 0.03 RBC Morphology Basophilic Stippling ESR (0-20) mm/hr Sample Site ABG Sample Site ABG pH (7.35-7.45) ABG pCO2 (35-45) mmHg ABG pO2 (80-105) mmHg ABG HCO3 (22-26) mmol/L ABG Total CO2 (23-27) mmol/L ABG O2 Saturation (95-98) % ABG Base Excess (-2-3) mmol/L VBG Lactate (0.6-1.4) mmol/L Oxygen Liter Flow FiO2 FiO2 (liters per min) L Sodium (136-145) mmol/L 137 138 Potassium (3.5-5.1) mmol/L 3.1 L D 3.1 L Chloride (98-107) mmol/L 101 102 Carbon Dioxide (21.0-32.0) mmol/L 29.7 26.3 Anion Gap (3-11) mmol/L 6.3 9.7 BUN (7-18) mg/dL 28 H 28 H Creatinine (0.70-1.30) mg/dL 1.6 H 1.6 H Estimated GFR/1.73 m2 (mL/min/1.73m2) 41.69 41.69 Glucose (74-106) mg/dL 84 134 H Calcium (8.5-10.1) mg/dL 8.1 L 8.0 L Magnesium (1.8-2.4) mg/dL Ferritin (22-322) ng/mL Total Bilirubin (0.2-1.0) mg/dL Conjugated Bilirubin (0.0-0.2) mg/dL AST (15-37) U/L ALT (16-63) U/L Alkaline Phosphatase (46-116) U/L Troponin I (<or=60) ng/L C-Reactive Protein (0.0-0.3) mg/dL NT-Pro-B Natriuret Pep (<300) pg/mL Total Protein (6.4-8.2) g/dL Albumin (3.4-5.0) g/dL Procalcitonin ng/mL TSH (0.36-3.74) uIU/mL C. albicans Allerg IgE kU/L M. racemosus Allrg IgE kU/L Urine Color (Yellow) Urine Clarity (Clear) Urine pH (5-8) Ur Specific [place] (1.005-1.025) Urine Protein (Negative) mg/dL Urine Ketones (Negative) mg/dL Urine Blood (Negative) Urine Nitrite (Negative) Urine Bilirubin (Negative) Urine Urobilinogen (Up TO 0.2) EU/dL Ur Leukocyte Esterase (Negative) Urine RBC (0-2) HPF Urine WBC (0-5) HPF Ur Epithelial Cells (Negative) HPF Urine Crystals (Negative) HPF Urine Bacteria (Negative) HPF Urine Casts (Negative) LPF Urine Mucus (Negative) Ur Culture Indicated? Urine Glucose (Negative) mg/dL Fluid Source Fluid Color Fluid Clarity Fluid WBC Fld Polynuclear WBCs % Fluid Mononuclear Cell Fluid Other Cells Vancomycin Trough Rheumatoid Factor (<12.0) IU/mL Cyclic Citrull Peptide (<5.0) U/mL ANNIE Titer ANNIE Titer 2 ANNIE Titer 3 ANNIE Interpretation (Negative) ANCA Immunofluorescen (Negative) ANCA Titer ANCA Pattern SS-A Antibody (<20.0) Units SS-B Antibody (<20.0) Units Scl-70 IgG Ab U Double Strand DNA Ab (<30.0) IU/mL Gram Stain Adenovirus DNA (Negative) Blastomyces Ag Result Blastomyces Ag Comment ng/mL COVID-19 Source SARS-CoV-2 (PCR) (Negative) Urine Histoplasma Ag U Histoplasma Ag Index ng/mL Human Metapneumovir RNA (Negative) Influenza Type A (PCR) (Negative) Influenza Type B (PCR) (Negative) L.pneumophila Antibody (Negative) Urine Legionella Ag (Negative) M. pneumoniae Source M. pneumoniae (PCR) Parainfluenza 1 (PCR) (Negative) Parainfluenza 2 (PCR) (Negative) Parainfluenza 3 (PCR) (Negative) Parainfluenza 4 (PCR) (Negative) Aspergillus Ag (EIA) (<0.5) index RSV (PCR) (Negative) Resp Viral Spec Desc Rhinovirus (PCR) (Negative) AFB Source AFB Culture Final Res Aerobic Culture Fungal Specimen Source B-(1,3)-D-Glucan Quant (<60 pg/mL) pg/mL B-(1,3)-D-Glucan Qual (Negative) Fungal Culture Status Fungal Culture Final Fungal Smear Result M. Tuberculosis PCR Path Cons Comment AFB Smear (Ref Lab) Add-On Test Request Ref Test Specimen Type Ref Report Verification Range/Units 10/26/21 10/26/21 10/26/21 06:26 06:26 06:26 WBC (4.4-10.8) 10^3/uL 9.40 RBC (4.36-5.78) 10^6/uL 3.46 L Hgb (13.5-17.5) g/dL 11.5 L Hct (40.0-50.0) % 34.7 L MCV (80-95) fL 100.3 H MCH (27.0-33.0) pg 33.2 H MCHC (32.0-36.0) % 33.1 RDW (11.8-14.1) % 12.5 Plt Count (130-400) 10^3/uL 116 L MPV (8.0-11.0) fL 10.5 Immature Gran % 1.9 Neutrophils % 90.0 Band Neutrophils % Lymphocytes % 4.4 Atypical Lymphs % Monocytes % 3.5 Eosinophils % 0.1 Basophils % 0.1 Metamyelocytes % Myelocytes % Nucleated RBC % % 0 Absolute Neutrophils (1.2-6.7) 10^3/uL 8.46 H Absolute Lymphocytes (1.2-3.4) 10^3/uL 0.41 L Absolute Monocytes (0.1-0.8) 10^3/uL 0.33 Absolute Eosinophils (0.0-0.7) 10^3/uL 0.01 Absolute Basophils (0.0-0.2) 10^3/uL 0.01 RBC Morphology Basophilic Stippling ESR (0-20) mm/hr Sample Site ABG Sample Site ABG pH (7.35-7.45) ABG pCO2 (35-45) mmHg ABG pO2 (80-105) mmHg ABG HCO3 (22-26) mmol/L ABG Total CO2 (23-27) mmol/L ABG O2 Saturation (95-98) % ABG Base Excess (-2-3) mmol/L VBG Lactate (0.6-1.4) mmol/L Oxygen Liter Flow FiO2 FiO2 (liters per min) L Sodium (136-145) mmol/L Potassium (3.5-5.1) mmol/L Chloride (98-107) mmol/L Carbon Dioxide (21.0-32.0) mmol/L Anion Gap (3-11) mmol/L BUN (7-18) mg/dL Creatinine (0.70-1.30) mg/dL Estimated GFR/1.73 m2 (mL/min/1.73m2) Glucose (74-106) mg/dL Calcium (8.5-10.1) mg/dL Magnesium (1.8-2.4) mg/dL 2.0 Ferritin (22-322) ng/mL Total Bilirubin (0.2-1.0) mg/dL Conjugated Bilirubin (0.0-0.2) mg/dL AST (15-37) U/L ALT (16-63) U/L Alkaline Phosphatase (46-116) U/L Troponin I (<or=60) ng/L C-Reactive Protein (0.0-0.3) mg/dL NT-Pro-B Natriuret Pep (<300) pg/mL Total Protein (6.4-8.2) g/dL Albumin (3.4-5.0) g/dL Procalcitonin ng/mL TSH (0.36-3.74) uIU/mL C. albicans Allerg IgE kU/L M. racemosus Allrg IgE kU/L Urine Color (Yellow) Urine Clarity (Clear) Urine pH (5-8) Ur Specific [place] (1.005-1.025) Urine Protein (Negative) mg/dL Urine Ketones (Negative) mg/dL Urine Blood (Negative) Urine Nitrite (Negative) Urine Bilirubin (Negative) Urine Urobilinogen (Up TO 0.2) EU/dL Ur Leukocyte Esterase (Negative) Urine RBC (0-2) HPF Urine WBC (0-5) HPF Ur Epithelial Cells (Negative) HPF Urine Crystals (Negative) HPF Urine Bacteria (Negative) HPF Urine Casts (Negative) LPF Urine Mucus (Negative) Ur Culture Indicated? Urine Glucose (Negative) mg/dL Fluid Source Fluid Color Fluid Clarity Fluid WBC Fld Polynuclear WBCs % Fluid Mononuclear Cell Fluid Other Cells Vancomycin Trough Rheumatoid Factor (<12.0) IU/mL Cyclic Citrull Peptide (<5.0) U/mL ANNIE Titer ANNIE Titer 2 ANNIE Titer 3 ANNIE Interpretation (Negative) ANCA Immunofluorescen (Negative) ANCA Titer ANCA Pattern SS-A Antibody (<20.0) Units SS-B Antibody (<20.0) Units Scl-70 IgG Ab U Double Strand DNA Ab (<30.0) IU/mL Gram Stain Adenovirus DNA (Negative) Blastomyces Ag Result Blastomyces Ag Comment ng/mL COVID-19 Source SARS-CoV-2 (PCR) (Negative) Urine Histoplasma Ag U Histoplasma Ag Index ng/mL Human Metapneumovir RNA (Negative) Influenza Type A (PCR) (Negative) Influenza Type B (PCR) (Negative) L.pneumophila Antibody (Negative) Urine Legionella Ag (Negative) M. pneumoniae Source M. pneumoniae (PCR) Parainfluenza 1 (PCR) (Negative) Parainfluenza 2 (PCR) (Negative) Parainfluenza 3 (PCR) (Negative) Parainfluenza 4 (PCR) (Negative) Aspergillus Ag (EIA) (<0.5) index RSV (PCR) (Negative) Resp Viral Spec Desc Rhinovirus (PCR) (Negative) AFB Source AFB Culture Final Res Aerobic Culture Fungal Specimen Source B-(1,3)-D-Glucan Quant (<60 pg/mL) pg/mL B-(1,3)-D-Glucan Qual (Negative) Fungal Culture Status Fungal Culture Final Fungal Smear Result M. Tuberculosis PCR Path Cons Comment AFB Smear (Ref Lab) Add-On Test Request DONE Ref Test Specimen Type Ref Report Verification Range/Units 10/27/21 10/27/21 10/28/21 06:34 06:34 05:15 WBC (4.4-10.8) 10^3/uL 10.65 RBC (4.36-5.78) 10^6/uL 3.40 L Hgb (13.5-17.5) g/dL 11.4 L Hct (40.0-50.0) % 34.4 L MCV (80-95) fL 101.2 H MCH (27.0-33.0) pg 33.5 H MCHC (32.0-36.0) % 33.1 RDW (11.8-14.1) % 12.6 Plt Count (130-400) 10^3/uL 117 L MPV (8.0-11.0) fL 10.1 Immature Gran % 1.5 Neutrophils % 87.8 Band Neutrophils % Lymphocytes % 5.4 Atypical Lymphs % Monocytes % 4.8 Eosinophils % 0.3 Basophils % 0.2 Metamyelocytes % Myelocytes % Nucleated RBC % % 0 Absolute Neutrophils (1.2-6.7) 10^3/uL 9.36 H Absolute Lymphocytes (1.2-3.4) 10^3/uL 0.57 L Absolute Monocytes (0.1-0.8) 10^3/uL 0.51 Absolute Eosinophils (0.0-0.7) 10^3/uL 0.03 Absolute Basophils (0.0-0.2) 10^3/uL 0.02 RBC Morphology Basophilic Stippling ESR (0-20) mm/hr Sample Site ABG Sample Site ABG pH (7.35-7.45) ABG pCO2 (35-45) mmHg ABG pO2 (80-105) mmHg ABG HCO3 (22-26) mmol/L ABG Total CO2 (23-27) mmol/L ABG O2 Saturation (95-98) % ABG Base Excess (-2-3) mmol/L VBG Lactate (0.6-1.4) mmol/L Oxygen Liter Flow FiO2 FiO2 (liters per min) L Sodium (136-145) mmol/L 138 139 Potassium (3.5-5.1) mmol/L 3.7 4.0 Chloride (98-107) mmol/L 104 105 Carbon Dioxide (21.0-32.0) mmol/L 25.5 27.4 Anion Gap (3-11) mmol/L 8.5 6.6 BUN (7-18) mg/dL 33 H 29 H Creatinine (0.70-1.30) mg/dL 1.5 H 1.5 H Estimated GFR/1.73 m2 (mL/min/1.73m2) 44.92 44.92 Glucose (74-106) mg/dL 121 H 79 Calcium (8.5-10.1) mg/dL 8.1 L 8.7 Magnesium (1.8-2.4) mg/dL 1.9 2.0 Ferritin (22-322) ng/mL Total Bilirubin (0.2-1.0) mg/dL Conjugated Bilirubin (0.0-0.2) mg/dL AST (15-37) U/L ALT (16-63) U/L Alkaline Phosphatase (46-116) U/L Troponin I (<or=60) ng/L C-Reactive Protein (0.0-0.3) mg/dL NT-Pro-B Natriuret Pep (<300) pg/mL Total Protein (6.4-8.2) g/dL Albumin (3.4-5.0) g/dL Procalcitonin ng/mL TSH (0.36-3.74) uIU/mL C. albicans Allerg IgE kU/L M. racemosus Allrg IgE kU/L Urine Color (Yellow) Urine Clarity (Clear) Urine pH (5-8) Ur Specific [place] (1.005-1.025) Urine Protein (Negative) mg/dL Urine Ketones (Negative) mg/dL Urine Blood (Negative) Urine Nitrite (Negative) Urine Bilirubin (Negative) Urine Urobilinogen (Up TO 0.2) EU/dL Ur Leukocyte Esterase (Negative) Urine RBC (0-2) HPF Urine WBC (0-5) HPF Ur Epithelial Cells (Negative) HPF Urine Crystals (Negative) HPF Urine Bacteria (Negative) HPF Urine Casts (Negative) LPF Urine Mucus (Negative) Ur Culture Indicated? Urine Glucose (Negative) mg/dL Fluid Source Fluid Color Fluid Clarity Fluid WBC Fld Polynuclear WBCs % Fluid Mononuclear Cell Fluid Other Cells Vancomycin Trough Rheumatoid Factor (<12.0) IU/mL Cyclic Citrull Peptide (<5.0) U/mL ANNIE Titer ANNIE Titer 2 ANNIE Titer 3 ANNIE Interpretation (Negative) ANCA Immunofluorescen (Negative) ANCA Titer ANCA Pattern SS-A Antibody (<20.0) Units SS-B Antibody (<20.0) Units Scl-70 IgG Ab U Double Strand DNA Ab (<30.0) IU/mL Gram Stain Adenovirus DNA (Negative) Blastomyces Ag Result Blastomyces Ag Comment ng/mL COVID-19 Source SARS-CoV-2 (PCR) (Negative) Urine Histoplasma Ag U Histoplasma Ag Index ng/mL Human Metapneumovir RNA (Negative) Influenza Type A (PCR) (Negative) Influenza Type B (PCR) (Negative) L.pneumophila Antibody (Negative) Urine Legionella Ag (Negative) M. pneumoniae Source M. pneumoniae (PCR) Parainfluenza 1 (PCR) (Negative) Parainfluenza 2 (PCR) (Negative) Parainfluenza 3 (PCR) (Negative) Parainfluenza 4 (PCR) (Negative) Aspergillus Ag (EIA) (<0.5) index RSV (PCR) (Negative) Resp Viral Spec Desc Rhinovirus (PCR) (Negative) AFB Source AFB Culture Final Res Aerobic Culture Fungal Specimen Source B-(1,3)-D-Glucan Quant (<60 pg/mL) pg/mL B-(1,3)-D-Glucan Qual (Negative) Fungal Culture Status Fungal Culture Final Fungal Smear Result M. Tuberculosis PCR Path Cons Comment AFB Smear (Ref Lab) Add-On Test Request Ref Test Specimen Type Ref Report Verification Range/Units 10/28/21 10/29/21 10/29/21 05:15 07:00 07:00 WBC (4.4-10.8) 10^3/uL 8.86 7.72 RBC (4.36-5.78) 10^6/uL 3.71 L 3.52 L Hgb (13.5-17.5) g/dL 12.2 L 11.7 L Hct (40.0-50.0) % 38.6 L 35.0 L MCV (80-95) fL 104.0 H 99.4 H MCH (27.0-33.0) pg 32.9 33.2 H MCHC (32.0-36.0) % 31.6 L 33.4 RDW (11.8-14.1) % 12.9 13.1 Plt Count (130-400) 10^3/uL 121 L 118 L MPV (8.0-11.0) fL 10.2 9.6 Immature Gran % 2.0 1.9 Neutrophils % 75.9 81.2 Band Neutrophils % Lymphocytes % 12.0 8.3 Atypical Lymphs % Monocytes % 6.2 4.5 Eosinophils % 3.4 4.0 Basophils % 0.5 0.1 Metamyelocytes % Myelocytes % Nucleated RBC % % 0 0 Absolute Neutrophils (1.2-6.7) 10^3/uL 6.73 H 6.26 Absolute Lymphocytes (1.2-3.4) 10^3/uL 1.06 L 0.64 L Absolute Monocytes (0.1-0.8) 10^3/uL 0.55 0.35 Absolute Eosinophils (0.0-0.7) 10^3/uL 0.30 0.31 Absolute Basophils (0.0-0.2) 10^3/uL 0.04 0.01 RBC Morphology Basophilic Stippling ESR (0-20) mm/hr Sample Site ABG Sample Site ABG pH (7.35-7.45) ABG pCO2 (35-45) mmHg ABG pO2 (80-105) mmHg ABG HCO3 (22-26) mmol/L ABG Total CO2 (23-27) mmol/L ABG O2 Saturation (95-98) % ABG Base Excess (-2-3) mmol/L VBG Lactate (0.6-1.4) mmol/L Oxygen Liter Flow FiO2 FiO2 (liters per min) L Sodium (136-145) mmol/L 139 Potassium (3.5-5.1) mmol/L 3.7 Chloride (98-107) mmol/L 105 Carbon Dioxide (21.0-32.0) mmol/L 24.2 Anion Gap (3-11) mmol/L 9.8 BUN (7-18) mg/dL 26 H Creatinine (0.70-1.30) mg/dL 1.3 Estimated GFR/1.73 m2 (mL/min/1.73m2) 52.98 Glucose (74-106) mg/dL 88 Calcium (8.5-10.1) mg/dL 8.7 Magnesium (1.8-2.4) mg/dL Ferritin (22-322) ng/mL Total Bilirubin (0.2-1.0) mg/dL Conjugated Bilirubin (0.0-0.2) mg/dL AST (15-37) U/L ALT (16-63) U/L Alkaline Phosphatase (46-116) U/L Troponin I (<or=60) ng/L C-Reactive Protein (0.0-0.3) mg/dL 11.41 H NT-Pro-B Natriuret Pep (<300) pg/mL Total Protein (6.4-8.2) g/dL Albumin (3.4-5.0) g/dL Procalcitonin ng/mL TSH (0.36-3.74) uIU/mL C. albicans Allerg IgE kU/L M. racemosus Allrg IgE kU/L Urine Color (Yellow) Urine Clarity (Clear) Urine pH (5-8) Ur Specific [place] (1.005-1.025) Urine Protein (Negative) mg/dL Urine Ketones (Negative) mg/dL Urine Blood (Negative) Urine Nitrite (Negative) Urine Bilirubin (Negative) Urine Urobilinogen (Up TO 0.2) EU/dL Ur Leukocyte Esterase (Negative) Urine RBC (0-2) HPF Urine WBC (0-5) HPF Ur Epithelial Cells (Negative) HPF Urine Crystals (Negative) HPF Urine Bacteria (Negative) HPF Urine Casts (Negative) LPF Urine Mucus (Negative) Ur Culture Indicated? Urine Glucose (Negative) mg/dL Fluid Source Fluid Color Fluid Clarity Fluid WBC Fld Polynuclear WBCs % Fluid Mononuclear Cell Fluid Other Cells Vancomycin Trough Rheumatoid Factor (<12.0) IU/mL Cyclic Citrull Peptide (<5.0) U/mL ANNIE Titer ANNIE Titer 2 ANNIE Titer 3 ANNIE Interpretation (Negative) ANCA Immunofluorescen (Negative) ANCA Titer ANCA Pattern SS-A Antibody (<20.0) Units SS-B Antibody (<20.0) Units Scl-70 IgG Ab U Double Strand DNA Ab (<30.0) IU/mL Gram Stain Adenovirus DNA (Negative) Blastomyces Ag Result Blastomyces Ag Comment ng/mL COVID-19 Source SARS-CoV-2 (PCR) (Negative) Urine Histoplasma Ag U Histoplasma Ag Index ng/mL Human Metapneumovir RNA (Negative) Influenza Type A (PCR) (Negative) Influenza Type B (PCR) (Negative) L.pneumophila Antibody (Negative) Urine Legionella Ag (Negative) M. pneumoniae Source M. pneumoniae (PCR) Parainfluenza 1 (PCR) (Negative) Parainfluenza 2 (PCR) (Negative) Parainfluenza 3 (PCR) (Negative) Parainfluenza 4 (PCR) (Negative) Aspergillus Ag (EIA) (<0.5) index RSV (PCR) (Negative) Resp Viral Spec Desc Rhinovirus (PCR) (Negative) AFB Source AFB Culture Final Res Aerobic Culture Fungal Specimen Source B-(1,3)-D-Glucan Quant (<60 pg/mL) pg/mL B-(1,3)-D-Glucan Qual (Negative) Fungal Culture Status Fungal Culture Final Fungal Smear Result M. Tuberculosis PCR Path Cons Comment AFB Smear (Ref Lab) Add-On Test Request Ref Test Specimen Type Ref Report Verification Range/Units 10/29/21 10/30/21 10/30/21 07:00 06:18 09:26 WBC (4.4-10.8) 10^3/uL RBC (4.36-5.78) 10^6/uL Hgb (13.5-17.5) g/dL Hct (40.0-50.0) % MCV (80-95) fL MCH (27.0-33.0) pg MCHC (32.0-36.0) % RDW (11.8-14.1) % Plt Count (130-400) 10^3/uL MPV (8.0-11.0) fL Immature Gran % Neutrophils % Band Neutrophils % Lymphocytes % Atypical Lymphs % Monocytes % Eosinophils % Basophils % Metamyelocytes % Myelocytes % Nucleated RBC % % Absolute Neutrophils (1.2-6.7) 10^3/uL Absolute Lymphocytes (1.2-3.4) 10^3/uL Absolute Monocytes (0.1-0.8) 10^3/uL Absolute Eosinophils (0.0-0.7) 10^3/uL Absolute Basophils (0.0-0.2) 10^3/uL RBC Morphology Basophilic Stippling ESR (0-20) mm/hr Sample Site ABG Sample Site ABG pH (7.35-7.45) ABG pCO2 (35-45) mmHg ABG pO2 (80-105) mmHg ABG HCO3 (22-26) mmol/L ABG Total CO2 (23-27) mmol/L ABG O2 Saturation (95-98) % ABG Base Excess (-2-3) mmol/L VBG Lactate (0.6-1.4) mmol/L 0.7 Oxygen Liter Flow FiO2 FiO2 (liters per min) L Sodium (136-145) mmol/L 139 Potassium (3.5-5.1) mmol/L 3.6 Chloride (98-107) mmol/L 104 Carbon Dioxide (21.0-32.0) mmol/L 25.4 Anion Gap (3-11) mmol/L 9.6 BUN (7-18) mg/dL 25 H Creatinine (0.70-1.30) mg/dL 1.4 H Estimated GFR/1.73 m2 (mL/min/1.73m2) 48.64 Glucose (74-106) mg/dL 113 H Calcium (8.5-10.1) mg/dL 8.9 Magnesium (1.8-2.4) mg/dL 2.0 Ferritin (22-322) ng/mL Total Bilirubin (0.2-1.0) mg/dL Conjugated Bilirubin (0.0-0.2) mg/dL AST (15-37) U/L ALT (16-63) U/L Alkaline Phosphatase (46-116) U/L Troponin I (<or=60) ng/L C-Reactive Protein (0.0-0.3) mg/dL NT-Pro-B Natriuret Pep (<300) pg/mL Total Protein (6.4-8.2) g/dL Albumin (3.4-5.0) g/dL Procalcitonin ng/mL 0.1 TSH (0.36-3.74) uIU/mL C. albicans Allerg IgE kU/L M. racemosus Allrg IgE kU/L Urine Color (Yellow) Urine Clarity (Clear) Urine pH (5-8) Ur Specific [place] (1.005-1.025) Urine Protein (Negative) mg/dL Urine Ketones (Negative) mg/dL Urine Blood (Negative) Urine Nitrite (Negative) Urine Bilirubin (Negative) Urine Urobilinogen (Up TO 0.2) EU/dL Ur Leukocyte Esterase (Negative) Urine RBC (0-2) HPF Urine WBC (0-5) HPF Ur Epithelial Cells (Negative) HPF Urine Crystals (Negative) HPF Urine Bacteria (Negative) HPF Urine Casts (Negative) LPF Urine Mucus (Negative) Ur Culture Indicated? Urine Glucose (Negative) mg/dL Fluid Source Fluid Color Fluid Clarity Fluid WBC Fld Polynuclear WBCs % Fluid Mononuclear Cell Fluid Other Cells Vancomycin Trough Rheumatoid Factor (<12.0) IU/mL Cyclic Citrull Peptide (<5.0) U/mL ANNIE Titer ANNIE Titer 2 ANNIE Titer 3 ANNIE Interpretation (Negative) ANCA Immunofluorescen (Negative) ANCA Titer ANCA Pattern SS-A Antibody (<20.0) Units SS-B Antibody (<20.0) Units Scl-70 IgG Ab U Double Strand DNA Ab (<30.0) IU/mL Gram Stain Adenovirus DNA (Negative) Blastomyces Ag Result Blastomyces Ag Comment ng/mL COVID-19 Source Nasal/Nares SARS-CoV-2 (PCR) (Negative) Negative Urine Histoplasma Ag U Histoplasma Ag Index ng/mL Human Metapneumovir RNA (Negative) Influenza Type A (PCR) (Negative) Influenza Type B (PCR) (Negative) L.pneumophila Antibody (Negative) Urine Legionella Ag (Negative) M. pneumoniae Source M. pneumoniae (PCR) Parainfluenza 1 (PCR) (Negative) Parainfluenza 2 (PCR) (Negative) Parainfluenza 3 (PCR) (Negative) Parainfluenza 4 (PCR) (Negative) Aspergillus Ag (EIA) (<0.5) index RSV (PCR) (Negative) Resp Viral Spec Desc Rhinovirus (PCR) (Negative) AFB Source AFB Culture Final Res Aerobic Culture Fungal Specimen Source B-(1,3)-D-Glucan Quant (<60 pg/mL) pg/mL B-(1,3)-D-Glucan Qual (Negative) Fungal Culture Status Fungal Culture Final Fungal Smear Result M. Tuberculosis PCR Path Cons Comment AFB Smear (Ref Lab) Add-On Test Request Ref Test Specimen Type Ref Report Verification Range/Units 10/30/21 10/30/21 10/31/21 12:50 12:50 06:25 WBC (4.4-10.8) 10^3/uL RBC (4.36-5.78) 10^6/uL Hgb (13.5-17.5) g/dL Hct (40.0-50.0) % MCV (80-95) fL MCH (27.0-33.0) pg MCHC (32.0-36.0) % RDW (11.8-14.1) % Plt Count (130-400) 10^3/uL MPV (8.0-11.0) fL Immature Gran % Neutrophils % Band Neutrophils % Lymphocytes % Atypical Lymphs % Monocytes % Eosinophils % Basophils % Metamyelocytes % Myelocytes % Nucleated RBC % % Absolute Neutrophils (1.2-6.7) 10^3/uL Absolute Lymphocytes (1.2-3.4) 10^3/uL Absolute Monocytes (0.1-0.8) 10^3/uL Absolute Eosinophils (0.0-0.7) 10^3/uL Absolute Basophils (0.0-0.2) 10^3/uL RBC Morphology Basophilic Stippling ESR (0-20) mm/hr Sample Site Right Radial ABG Sample Site Cancelled ABG pH (7.35-7.45) 7.50 H ABG pCO2 (35-45) mmHg 30 L ABG pO2 (80-105) mmHg 79 L ABG HCO3 (22-26) mmol/L 22 ABG Total CO2 (23-27) mmol/L 23 ABG O2 Saturation (95-98) % 97 ABG Base Excess (-2-3) mmol/L -1 VBG Lactate (0.6-1.4) mmol/L 1.8 H Oxygen Liter Flow Cancelled FiO2 Cancelled FiO2 (liters per min) L 0.5 Sodium (136-145) mmol/L 140 Potassium (3.5-5.1) mmol/L 3.7 Chloride (98-107) mmol/L 103 Carbon Dioxide (21.0-32.0) mmol/L 28.1 Anion Gap (3-11) mmol/L 8.9 BUN (7-18) mg/dL 32 H Creatinine (0.70-1.30) mg/dL 1.5 H Estimated GFR/1.73 m2 (mL/min/1.73m2) 44.92 Glucose (74-106) mg/dL 110 H Calcium (8.5-10.1) mg/dL 8.7 Magnesium (1.8-2.4) mg/dL Ferritin (22-322) ng/mL Total Bilirubin (0.2-1.0) mg/dL Conjugated Bilirubin (0.0-0.2) mg/dL AST (15-37) U/L ALT (16-63) U/L Alkaline Phosphatase (46-116) U/L Troponin I (<or=60) ng/L C-Reactive Protein (0.0-0.3) mg/dL NT-Pro-B Natriuret Pep (<300) pg/mL Total Protein (6.4-8.2) g/dL Albumin (3.4-5.0) g/dL Procalcitonin ng/mL TSH (0.36-3.74) uIU/mL C. albicans Allerg IgE kU/L M. racemosus Allrg IgE kU/L Urine Color (Yellow) Urine Clarity (Clear) Urine pH (5-8) Ur Specific [place] (1.005-1.025) Urine Protein (Negative) mg/dL Urine Ketones (Negative) mg/dL Urine Blood (Negative) Urine Nitrite (Negative) Urine Bilirubin (Negative) Urine Urobilinogen (Up TO 0.2) EU/dL Ur Leukocyte Esterase (Negative) Urine RBC (0-2) HPF Urine WBC (0-5) HPF Ur Epithelial Cells (Negative) HPF Urine Crystals (Negative) HPF Urine Bacteria (Negative) HPF Urine Casts (Negative) LPF Urine Mucus (Negative) Ur Culture Indicated? Urine Glucose (Negative) mg/dL Fluid Source Fluid Color Fluid Clarity Fluid WBC Fld Polynuclear WBCs % Fluid Mononuclear Cell Fluid Other Cells Vancomycin Trough Rheumatoid Factor (<12.0) IU/mL Cyclic Citrull Peptide (<5.0) U/mL ANNIE Titer ANNIE Titer 2 ANNIE Titer 3 ANNIE Interpretation (Negative) ANCA Immunofluorescen (Negative) ANCA Titer ANCA Pattern SS-A Antibody (<20.0) Units SS-B Antibody (<20.0) Units Scl-70 IgG Ab U Double Strand DNA Ab (<30.0) IU/mL Gram Stain Adenovirus DNA (Negative) Blastomyces Ag Result Blastomyces Ag Comment ng/mL COVID-19 Source SARS-CoV-2 (PCR) (Negative) Urine Histoplasma Ag U Histoplasma Ag Index ng/mL Human Metapneumovir RNA (Negative) Influenza Type A (PCR) (Negative) Influenza Type B (PCR) (Negative) L.pneumophila Antibody (Negative) Urine Legionella Ag (Negative) M. pneumoniae Source M. pneumoniae (PCR) Parainfluenza 1 (PCR) (Negative) Parainfluenza 2 (PCR) (Negative) Parainfluenza 3 (PCR) (Negative) Parainfluenza 4 (PCR) (Negative) Aspergillus Ag (EIA) (<0.5) index RSV (PCR) (Negative) Resp Viral Spec Desc Rhinovirus (PCR) (Negative) AFB Source AFB Culture Final Res Aerobic Culture Fungal Specimen Source B-(1,3)-D-Glucan Quant (<60 pg/mL) pg/mL B-(1,3)-D-Glucan Qual (Negative) Fungal Culture Status Fungal Culture Final Fungal Smear Result M. Tuberculosis PCR Path Cons Comment AFB Smear (Ref Lab) Add-On Test Request Ref Test Specimen Type Ref Report Verification Range/Units 10/31/21 11/02/21 11/02/21 06:25 06:30 06:45 WBC (4.4-10.8) 10^3/uL 9.97 RBC (4.36-5.78) 10^6/uL 3.49 L Hgb (13.5-17.5) g/dL 11.7 L Hct (40.0-50.0) % 35.0 L MCV (80-95) fL 100.3 H MCH (27.0-33.0) pg 33.5 H MCHC (32.0-36.0) % 33.4 RDW (11.8-14.1) % 13.0 Plt Count (130-400) 10^3/uL 146 MPV (8.0-11.0) fL 10.0 Immature Gran % 1.9 Neutrophils % 84.7 Band Neutrophils % Lymphocytes % 7.5 Atypical Lymphs % Monocytes % 3.5 Eosinophils % 2.3 Basophils % 0.1 Metamyelocytes % Myelocytes % Nucleated RBC % % 0 Absolute Neutrophils (1.2-6.7) 10^3/uL 8.44 H Absolute Lymphocytes (1.2-3.4) 10^3/uL 0.75 L Absolute Monocytes (0.1-0.8) 10^3/uL 0.35 Absolute Eosinophils (0.0-0.7) 10^3/uL 0.23 Absolute Basophils (0.0-0.2) 10^3/uL 0.01 RBC Morphology Basophilic Stippling ESR (0-20) mm/hr Sample Site ABG Sample Site ABG pH (7.35-7.45) ABG pCO2 (35-45) mmHg ABG pO2 (80-105) mmHg ABG HCO3 (22-26) mmol/L ABG Total CO2 (23-27) mmol/L ABG O2 Saturation (95-98) % ABG Base Excess (-2-3) mmol/L VBG Lactate (0.6-1.4) mmol/L Oxygen Liter Flow FiO2 FiO2 (liters per min) L Sodium (136-145) mmol/L 140 Potassium (3.5-5.1) mmol/L 3.9 Chloride (98-107) mmol/L 102 Carbon Dioxide (21.0-32.0) mmol/L 29.3 Anion Gap (3-11) mmol/L 8.7 BUN (7-18) mg/dL 31 H Creatinine (0.70-1.30) mg/dL 1.4 H Estimated GFR/1.73 m2 (mL/min/1.73m2) 48.64 Glucose (74-106) mg/dL 101 Calcium (8.5-10.1) mg/dL 9.3 Magnesium (1.8-2.4) mg/dL Ferritin (22-322) ng/mL Total Bilirubin (0.2-1.0) mg/dL Conjugated Bilirubin (0.0-0.2) mg/dL AST (15-37) U/L ALT (16-63) U/L Alkaline Phosphatase (46-116) U/L Troponin I (<or=60) ng/L C-Reactive Protein (0.0-0.3) mg/dL > 25.00 H NT-Pro-B Natriuret Pep (<300) pg/mL Total Protein (6.4-8.2) g/dL Albumin (3.4-5.0) g/dL Procalcitonin ng/mL TSH (0.36-3.74) uIU/mL C. albicans Allerg IgE kU/L M. racemosus Allrg IgE kU/L Urine Color (Yellow) Urine Clarity (Clear) Urine pH (5-8) Ur Specific [place] (1.005-1.025) Urine Protein (Negative) mg/dL Urine Ketones (Negative) mg/dL Urine Blood (Negative) Urine Nitrite (Negative) Urine Bilirubin (Negative) Urine Urobilinogen (Up TO 0.2) EU/dL Ur Leukocyte Esterase (Negative) Urine RBC (0-2) HPF Urine WBC (0-5) HPF Ur Epithelial Cells (Negative) HPF Urine Crystals (Negative) HPF Urine Bacteria (Negative) HPF Urine Casts (Negative) LPF Urine Mucus (Negative) Ur Culture Indicated? Urine Glucose (Negative) mg/dL Fluid Source Fluid Color Fluid Clarity Fluid WBC Fld Polynuclear WBCs % Fluid Mononuclear Cell Fluid Other Cells Vancomycin Trough Rheumatoid Factor (<12.0) IU/mL Cyclic Citrull Peptide (<5.0) U/mL ANNIE Titer ANNIE Titer 2 ANNIE Titer 3 ANNIE Interpretation (Negative) ANCA Immunofluorescen (Negative) ANCA Titer ANCA Pattern SS-A Antibody (<20.0) Units SS-B Antibody (<20.0) Units Scl-70 IgG Ab U Double Strand DNA Ab (<30.0) IU/mL Gram Stain Adenovirus DNA (Negative) Blastomyces Ag Result Blastomyces Ag Comment ng/mL COVID-19 Source SARS-CoV-2 (PCR) (Negative) Urine Histoplasma Ag U Histoplasma Ag Index ng/mL Human Metapneumovir RNA (Negative) Influenza Type A (PCR) (Negative) Influenza Type B (PCR) (Negative) L.pneumophila Antibody (Negative) Negative Urine Legionella Ag (Negative) M. pneumoniae Source M. pneumoniae (PCR) Parainfluenza 1 (PCR) (Negative) Parainfluenza 2 (PCR) (Negative) Parainfluenza 3 (PCR) (Negative) Parainfluenza 4 (PCR) (Negative) Aspergillus Ag (EIA) (<0.5) index RSV (PCR) (Negative) Resp Viral Spec Desc Rhinovirus (PCR) (Negative) AFB Source AFB Culture Final Res Aerobic Culture Fungal Specimen Source B-(1,3)-D-Glucan Quant (<60 pg/mL) pg/mL B-(1,3)-D-Glucan Qual (Negative) Fungal Culture Status Fungal Culture Final Fungal Smear Result M. Tuberculosis PCR Path Cons Comment AFB Smear (Ref Lab) Add-On Test Request Ref Test Specimen Type Ref Report Verification Range/Units 11/02/21 11/02/21 11/02/21 06:45 06:45 06:45 WBC (4.4-10.8) 10^3/uL 7.69 RBC (4.36-5.78) 10^6/uL 3.59 L Hgb (13.5-17.5) g/dL 11.8 L Hct (40.0-50.0) % 36.7 L MCV (80-95) fL 102.2 H MCH (27.0-33.0) pg 32.9 MCHC (32.0-36.0) % 32.2 RDW (11.8-14.1) % 12.9 Plt Count (130-400) 10^3/uL 151 MPV (8.0-11.0) fL 9.8 Immature Gran % 1.6 Neutrophils % 78.6 Band Neutrophils % Lymphocytes % 12.2 Atypical Lymphs % Monocytes % 3.4 Eosinophils % 3.9 Basophils % 0.3 Metamyelocytes % Myelocytes % Nucleated RBC % % 0 Absolute Neutrophils (1.2-6.7) 10^3/uL 6.05 Absolute Lymphocytes (1.2-3.4) 10^3/uL 0.94 L Absolute Monocytes (0.1-0.8) 10^3/uL 0.26 Absolute Eosinophils (0.0-0.7) 10^3/uL 0.30 Absolute Basophils (0.0-0.2) 10^3/uL 0.02 RBC Morphology Basophilic Stippling ESR (0-20) mm/hr 41 H Sample Site ABG Sample Site ABG pH (7.35-7.45) ABG pCO2 (35-45) mmHg ABG pO2 (80-105) mmHg ABG HCO3 (22-26) mmol/L ABG Total CO2 (23-27) mmol/L ABG O2 Saturation (95-98) % ABG Base Excess (-2-3) mmol/L VBG Lactate (0.6-1.4) mmol/L Oxygen Liter Flow FiO2 FiO2 (liters per min) L Sodium (136-145) mmol/L Potassium (3.5-5.1) mmol/L Chloride (98-107) mmol/L Carbon Dioxide (21.0-32.0) mmol/L Anion Gap (3-11) mmol/L BUN (7-18) mg/dL Creatinine (0.70-1.30) mg/dL Estimated GFR/1.73 m2 (mL/min/1.73m2) Glucose (74-106) mg/dL Calcium (8.5-10.1) mg/dL Magnesium (1.8-2.4) mg/dL Ferritin (22-322) ng/mL Total Bilirubin (0.2-1.0) mg/dL Conjugated Bilirubin (0.0-0.2) mg/dL AST (15-37) U/L ALT (16-63) U/L Alkaline Phosphatase (46-116) U/L Troponin I (<or=60) ng/L C-Reactive Protein (0.0-0.3) mg/dL NT-Pro-B Natriuret Pep (<300) pg/mL Total Protein (6.4-8.2) g/dL Albumin (3.4-5.0) g/dL Procalcitonin ng/mL TSH (0.36-3.74) uIU/mL C. albicans Allerg IgE kU/L M. racemosus Allrg IgE kU/L Urine Color (Yellow) Urine Clarity (Clear) Urine pH (5-8) Ur Specific [place] (1.005-1.025) Urine Protein (Negative) mg/dL Urine Ketones (Negative) mg/dL Urine Blood (Negative) Urine Nitrite (Negative) Urine Bilirubin (Negative) Urine Urobilinogen (Up TO 0.2) EU/dL Ur Leukocyte Esterase (Negative) Urine RBC (0-2) HPF Urine WBC (0-5) HPF Ur Epithelial Cells (Negative) HPF Urine Crystals (Negative) HPF Urine Bacteria (Negative) HPF Urine Casts (Negative) LPF Urine Mucus (Negative) Ur Culture Indicated? Urine Glucose (Negative) mg/dL Fluid Source Fluid Color Fluid Clarity Fluid WBC Fld Polynuclear WBCs % Fluid Mononuclear Cell Fluid Other Cells Vancomycin Trough Rheumatoid Factor (<12.0) IU/mL Cyclic Citrull Peptide (<5.0) U/mL ANNIE Titer ANNIE Titer 2 ANNIE Titer 3 ANNIE Interpretation (Negative) ANCA Immunofluorescen (Negative) ANCA Titer ANCA Pattern SS-A Antibody (<20.0) Units SS-B Antibody (<20.0) Units Scl-70 IgG Ab U Double Strand DNA Ab (<30.0) IU/mL Gram Stain Adenovirus DNA (Negative) Blastomyces Ag Result Blastomyces Ag Comment ng/mL COVID-19 Source SARS-CoV-2 (PCR) (Negative) Urine Histoplasma Ag U Histoplasma Ag Index ng/mL Human Metapneumovir RNA (Negative) Influenza Type A (PCR) (Negative) Influenza Type B (PCR) (Negative) L.pneumophila Antibody (Negative) Urine Legionella Ag (Negative) M. pneumoniae Source M. pneumoniae (PCR) Parainfluenza 1 (PCR) (Negative) Parainfluenza 2 (PCR) (Negative) Parainfluenza 3 (PCR) (Negative) Parainfluenza 4 (PCR) (Negative) Aspergillus Ag (EIA) (<0.5) index RSV (PCR) (Negative) Resp Viral Spec Desc Rhinovirus (PCR) (Negative) AFB Source AFB Culture Final Res Aerobic Culture Fungal Specimen Source B-(1,3)-D-Glucan Quant (<60 pg/mL) pg/mL B-(1,3)-D-Glucan Qual (Negative) Fungal Culture Status Fungal Culture Final Fungal Smear Result M. Tuberculosis PCR Path Cons Comment AFB Smear (Ref Lab) Add-On Test Request done Ref Test Specimen Type Ref Report Verification Range/Units 11/02/21 11/02/21 11/02/21 06:45 06:45 11:00 WBC (4.4-10.8) 10^3/uL RBC (4.36-5.78) 10^6/uL Hgb (13.5-17.5) g/dL Hct (40.0-50.0) % MCV (80-95) fL MCH (27.0-33.0) pg MCHC (32.0-36.0) % RDW (11.8-14.1) % Plt Count (130-400) 10^3/uL MPV (8.0-11.0) fL Immature Gran % Neutrophils % Band Neutrophils % Lymphocytes % Atypical Lymphs % Monocytes % Eosinophils % Basophils % Metamyelocytes % Myelocytes % Nucleated RBC % % Absolute Neutrophils (1.2-6.7) 10^3/uL Absolute Lymphocytes (1.2-3.4) 10^3/uL Absolute Monocytes (0.1-0.8) 10^3/uL Absolute Eosinophils (0.0-0.7) 10^3/uL Absolute Basophils (0.0-0.2) 10^3/uL RBC Morphology Basophilic Stippling ESR (0-20) mm/hr Sample Site ABG Sample Site ABG pH (7.35-7.45) ABG pCO2 (35-45) mmHg ABG pO2 (80-105) mmHg ABG HCO3 (22-26) mmol/L ABG Total CO2 (23-27) mmol/L ABG O2 Saturation (95-98) % ABG Base Excess (-2-3) mmol/L VBG Lactate (0.6-1.4) mmol/L Oxygen Liter Flow FiO2 FiO2 (liters per min) L Sodium (136-145) mmol/L Potassium (3.5-5.1) mmol/L Chloride (98-107) mmol/L Carbon Dioxide (21.0-32.0) mmol/L Anion Gap (3-11) mmol/L BUN (7-18) mg/dL Creatinine (0.70-1.30) mg/dL Estimated GFR/1.73 m2 (mL/min/1.73m2) Glucose (74-106) mg/dL Calcium (8.5-10.1) mg/dL Magnesium (1.8-2.4) mg/dL Ferritin (22-322) ng/mL 538 H Total Bilirubin (0.2-1.0) mg/dL Conjugated Bilirubin (0.0-0.2) mg/dL AST (15-37) U/L ALT (16-63) U/L Alkaline Phosphatase (46-116) U/L Troponin I (<or=60) ng/L C-Reactive Protein (0.0-0.3) mg/dL NT-Pro-B Natriuret Pep (<300) pg/mL 673 H Total Protein (6.4-8.2) g/dL Albumin (3.4-5.0) g/dL Procalcitonin ng/mL TSH (0.36-3.74) uIU/mL C. albicans Allerg IgE kU/L M. racemosus Allrg IgE kU/L Urine Color (Yellow) Urine Clarity (Clear) Urine pH (5-8) Ur Specific [place] (1.005-1.025) Urine Protein (Negative) mg/dL Urine Ketones (Negative) mg/dL Urine Blood (Negative) Urine Nitrite (Negative) Urine Bilirubin (Negative) Urine Urobilinogen (Up TO 0.2) EU/dL Ur Leukocyte Esterase (Negative) Urine RBC (0-2) HPF Urine WBC (0-5) HPF Ur Epithelial Cells (Negative) HPF Urine Crystals (Negative) HPF Urine Bacteria (Negative) HPF Urine Casts (Negative) LPF Urine Mucus (Negative) Ur Culture Indicated? Urine Glucose (Negative) mg/dL Fluid Source Fluid Color Fluid Clarity Fluid WBC Fld Polynuclear WBCs % Fluid Mononuclear Cell Fluid Other Cells Vancomycin Trough Rheumatoid Factor (<12.0) IU/mL Cyclic Citrull Peptide (<5.0) U/mL ANNIE Titer ANNIE Titer 2 ANNIE Titer 3 ANNIE Interpretation (Negative) ANCA Immunofluorescen (Negative) ANCA Titer ANCA Pattern SS-A Antibody (<20.0) Units SS-B Antibody (<20.0) Units Scl-70 IgG Ab U Double Strand DNA Ab (<30.0) IU/mL Gram Stain Adenovirus DNA (Negative) Blastomyces Ag Result Blastomyces Ag Comment ng/mL COVID-19 Source Nasopharynx SARS-CoV-2 (PCR) (Negative) Negative Urine Histoplasma Ag U Histoplasma Ag Index ng/mL Human Metapneumovir RNA (Negative) Influenza Type A (PCR) (Negative) Influenza Type B (PCR) (Negative) L.pneumophila Antibody (Negative) Urine Legionella Ag (Negative) M. pneumoniae Source M. pneumoniae (PCR) Parainfluenza 1 (PCR) (Negative) Parainfluenza 2 (PCR) (Negative) Parainfluenza 3 (PCR) (Negative) Parainfluenza 4 (PCR) (Negative) Aspergillus Ag (EIA) (<0.5) index RSV (PCR) (Negative) Resp Viral Spec Desc Rhinovirus (PCR) (Negative) AFB Source AFB Culture Final Res Aerobic Culture Fungal Specimen Source B-(1,3)-D-Glucan Quant (<60 pg/mL) pg/mL B-(1,3)-D-Glucan Qual (Negative) Fungal Culture Status Fungal Culture Final Fungal Smear Result M. Tuberculosis PCR Path Cons Comment AFB Smear (Ref Lab) Add-On Test Request Ref Test Specimen Type Ref Report Verification Range/Units 11/02/21 11/02/21 11/02/21 15:30 15:30 21:09 WBC (4.4-10.8) 10^3/uL RBC (4.36-5.78) 10^6/uL Hgb (13.5-17.5) g/dL Hct (40.0-50.0) % MCV (80-95) fL MCH (27.0-33.0) pg MCHC (32.0-36.0) % RDW (11.8-14.1) % Plt Count (130-400) 10^3/uL MPV (8.0-11.0) fL Immature Gran % Neutrophils % Band Neutrophils % Lymphocytes % Atypical Lymphs % Monocytes % Eosinophils % Basophils % Metamyelocytes % Myelocytes % Nucleated RBC % % Absolute Neutrophils (1.2-6.7) 10^3/uL Absolute Lymphocytes (1.2-3.4) 10^3/uL Absolute Monocytes (0.1-0.8) 10^3/uL Absolute Eosinophils (0.0-0.7) 10^3/uL Absolute Basophils (0.0-0.2) 10^3/uL RBC Morphology Basophilic Stippling ESR (0-20) mm/hr Sample Site ABG Sample Site ABG pH (7.35-7.45) ABG pCO2 (35-45) mmHg ABG pO2 (80-105) mmHg ABG HCO3 (22-26) mmol/L ABG Total CO2 (23-27) mmol/L ABG O2 Saturation (95-98) % ABG Base Excess (-2-3) mmol/L VBG Lactate (0.6-1.4) mmol/L Oxygen Liter Flow FiO2 FiO2 (liters per min) L Sodium (136-145) mmol/L Potassium (3.5-5.1) mmol/L Chloride (98-107) mmol/L Carbon Dioxide (21.0-32.0) mmol/L Anion Gap (3-11) mmol/L BUN (7-18) mg/dL Creatinine (0.70-1.30) mg/dL Estimated GFR/1.73 m2 (mL/min/1.73m2) Glucose (74-106) mg/dL Calcium (8.5-10.1) mg/dL Magnesium (1.8-2.4) mg/dL Ferritin (22-322) ng/mL Total Bilirubin (0.2-1.0) mg/dL Conjugated Bilirubin (0.0-0.2) mg/dL AST (15-37) U/L ALT (16-63) U/L Alkaline Phosphatase (46-116) U/L Troponin I (<or=60) ng/L C-Reactive Protein (0.0-0.3) mg/dL NT-Pro-B Natriuret Pep (<300) pg/mL Total Protein (6.4-8.2) g/dL Albumin (3.4-5.0) g/dL Procalcitonin ng/mL TSH (0.36-3.74) uIU/mL C. albicans Allerg IgE kU/L M. racemosus Allrg IgE kU/L Urine Color (Yellow) Urine Clarity (Clear) Urine pH (5-8) Ur Specific [place] (1.005-1.025) Urine Protein (Negative) mg/dL Urine Ketones (Negative) mg/dL Urine Blood (Negative) Urine Nitrite (Negative) Urine Bilirubin (Negative) Urine Urobilinogen (Up TO 0.2) EU/dL Ur Leukocyte Esterase (Negative) Urine RBC (0-2) HPF Urine WBC (0-5) HPF Ur Epithelial Cells (Negative) HPF Urine Crystals (Negative) HPF Urine Bacteria (Negative) HPF Urine Casts (Negative) LPF Urine Mucus (Negative) Ur Culture Indicated? Urine Glucose (Negative) mg/dL Fluid Source Fluid Color Fluid Clarity Fluid WBC Fld Polynuclear WBCs % Fluid Mononuclear Cell Fluid Other Cells Vancomycin Trough Rheumatoid Factor (<12.0) IU/mL Cyclic Citrull Peptide (<5.0) U/mL ANNIE Titer ANNIE Titer 2 ANNIE Titer 3 ANNIE Interpretation (Negative) ANCA Immunofluorescen (Negative) ANCA Titer ANCA Pattern SS-A Antibody (<20.0) Units SS-B Antibody (<20.0) Units Scl-70 IgG Ab U Double Strand DNA Ab (<30.0) IU/mL Gram Stain Adenovirus DNA (Negative) Negative Blastomyces Ag Result Blastomyces Ag Comment ng/mL COVID-19 Source SARS-CoV-2 (PCR) (Negative) Urine Histoplasma Ag U Histoplasma Ag Index ng/mL Human Metapneumovir RNA (Negative) Negative Influenza Type A (PCR) (Negative) Influenza Type B (PCR) (Negative) L.pneumophila Antibody (Negative) Urine Legionella Ag (Negative) M. pneumoniae Source nasal Cancelled M. pneumoniae (PCR) Negative Cancelled Parainfluenza 1 (PCR) (Negative) Negative Parainfluenza 2 (PCR) (Negative) Negative Parainfluenza 3 (PCR) (Negative) Negative Parainfluenza 4 (PCR) (Negative) Negative Aspergillus Ag (EIA) (<0.5) index RSV (PCR) (Negative) Resp Viral Spec Desc Not Applicable Rhinovirus (PCR) (Negative) Negative AFB Source AFB Culture Final Res Aerobic Culture Fungal Specimen Source B-(1,3)-D-Glucan Quant (<60 pg/mL) pg/mL B-(1,3)-D-Glucan Qual (Negative) Fungal Culture Status Fungal Culture Final Fungal Smear Result M. Tuberculosis PCR Path Cons Comment AFB Smear (Ref Lab) Add-On Test Request Ref Test Specimen Type Ref Report Verification Range/Units 11/03/21 11/03/21 11/04/21 06:30 06:30 06:40 WBC (4.4-10.8) 10^3/uL 10.34 D RBC (4.36-5.78) 10^6/uL 3.37 L Hgb (13.5-17.5) g/dL 11.0 L Hct (40.0-50.0) % 33.6 L MCV (80-95) fL 99.7 H MCH (27.0-33.0) pg 32.6 MCHC (32.0-36.0) % 32.7 RDW (11.8-14.1) % 13.0 Plt Count (130-400) 10^3/uL 146 MPV (8.0-11.0) fL 10.2 Immature Gran % 1.1 Neutrophils % 94.4 Band Neutrophils % Lymphocytes % 3.3 Atypical Lymphs % Monocytes % 1.0 Eosinophils % 0.0 Basophils % 0.2 Metamyelocytes % Myelocytes % Nucleated RBC % % 0 Absolute Neutrophils (1.2-6.7) 10^3/uL 9.76 H Absolute Lymphocytes (1.2-3.4) 10^3/uL 0.34 L Absolute Monocytes (0.1-0.8) 10^3/uL 0.10 Absolute Eosinophils (0.0-0.7) 10^3/uL 0.00 Absolute Basophils (0.0-0.2) 10^3/uL 0.02 RBC Morphology Basophilic Stippling ESR (0-20) mm/hr Sample Site ABG Sample Site ABG pH (7.35-7.45) ABG pCO2 (35-45) mmHg ABG pO2 (80-105) mmHg ABG HCO3 (22-26) mmol/L ABG Total CO2 (23-27) mmol/L ABG O2 Saturation (95-98) % ABG Base Excess (-2-3) mmol/L VBG Lactate (0.6-1.4) mmol/L Oxygen Liter Flow FiO2 FiO2 (liters per min) L Sodium (136-145) mmol/L 140 142 Potassium (3.5-5.1) mmol/L 3.9 3.4 L Chloride (98-107) mmol/L 102 104 Carbon Dioxide (21.0-32.0) mmol/L 25.8 24.5 Anion Gap (3-11) mmol/L 12.2 H 13.5 H BUN (7-18) mg/dL 33 H 34 H Creatinine (0.70-1.30) mg/dL 1.6 H 1.7 H Estimated GFR/1.73 m2 (mL/min/1.73m2) 41.69 38.88 Glucose (74-106) mg/dL 197 H D 203 H Calcium (8.5-10.1) mg/dL 8.8 9.2 Magnesium (1.8-2.4) mg/dL Ferritin (22-322) ng/mL Total Bilirubin (0.2-1.0) mg/dL Conjugated Bilirubin (0.0-0.2) mg/dL AST (15-37) U/L ALT (16-63) U/L Alkaline Phosphatase (46-116) U/L Troponin I (<or=60) ng/L C-Reactive Protein (0.0-0.3) mg/dL NT-Pro-B Natriuret Pep (<300) pg/mL Total Protein (6.4-8.2) g/dL Albumin (3.4-5.0) g/dL Procalcitonin ng/mL TSH (0.36-3.74) uIU/mL 0.50 C. albicans Allerg IgE kU/L M. racemosus Allrg IgE kU/L Urine Color (Yellow) Urine Clarity (Clear) Urine pH (5-8) Ur Specific [place] (1.005-1.025) Urine Protein (Negative) mg/dL Urine Ketones (Negative) mg/dL Urine Blood (Negative) Urine Nitrite (Negative) Urine Bilirubin (Negative) Urine Urobilinogen (Up TO 0.2) EU/dL Ur Leukocyte Esterase (Negative) Urine RBC (0-2) HPF Urine WBC (0-5) HPF Ur Epithelial Cells (Negative) HPF Urine Crystals (Negative) HPF Urine Bacteria (Negative) HPF Urine Casts (Negative) LPF Urine Mucus (Negative) Ur Culture Indicated? Urine Glucose (Negative) mg/dL Fluid Source Fluid Color Fluid Clarity Fluid WBC Fld Polynuclear WBCs % Fluid Mononuclear Cell Fluid Other Cells Vancomycin Trough Rheumatoid Factor (<12.0) IU/mL Cyclic Citrull Peptide (<5.0) U/mL ANNIE Titer ANNIE Titer 2 ANNIE Titer 3 ANNIE Interpretation (Negative) ANCA Immunofluorescen (Negative) ANCA Titer ANCA Pattern SS-A Antibody (<20.0) Units SS-B Antibody (<20.0) Units Scl-70 IgG Ab U Double Strand DNA Ab (<30.0) IU/mL Gram Stain Adenovirus DNA (Negative) Blastomyces Ag Result Blastomyces Ag Comment ng/mL COVID-19 Source SARS-CoV-2 (PCR) (Negative) Urine Histoplasma Ag U Histoplasma Ag Index ng/mL Human Metapneumovir RNA (Negative) Influenza Type A (PCR) (Negative) Influenza Type B (PCR) (Negative) L.pneumophila Antibody (Negative) Urine Legionella Ag (Negative) M. pneumoniae Source M. pneumoniae (PCR) Parainfluenza 1 (PCR) (Negative) Parainfluenza 2 (PCR) (Negative) Parainfluenza 3 (PCR) (Negative) Parainfluenza 4 (PCR) (Negative) Aspergillus Ag (EIA) (<0.5) index RSV (PCR) (Negative) Resp Viral Spec Desc Rhinovirus (PCR) (Negative) AFB Source AFB Culture Final Res Aerobic Culture Fungal Specimen Source B-(1,3)-D-Glucan Quant (<60 pg/mL) pg/mL B-(1,3)-D-Glucan Qual (Negative) Fungal Culture Status Fungal Culture Final Fungal Smear Result M. Tuberculosis PCR Path Cons Comment AFB Smear (Ref Lab) Add-On Test Request Ref Test Specimen Type Ref Report Verification Range/Units 11/04/21 11/04/21 11/04/21 06:40 19:35 19:35 WBC (4.4-10.8) 10^3/uL 14.11 H D RBC (4.36-5.78) 10^6/uL 3.38 L Hgb (13.5-17.5) g/dL 11.1 L Hct (40.0-50.0) % 33.6 L MCV (80-95) fL 99.4 H MCH (27.0-33.0) pg 32.8 MCHC (32.0-36.0) % 33.0 RDW (11.8-14.1) % 13.0 Plt Count (130-400) 10^3/uL 179 MPV (8.0-11.0) fL 10.8 Immature Gran % 0.9 Neutrophils % 93.0 Band Neutrophils % Lymphocytes % 2.7 Atypical Lymphs % Monocytes % 3.3 Eosinophils % 0.0 Basophils % 0.1 Metamyelocytes % Myelocytes % Nucleated RBC % % 0 Absolute Neutrophils (1.2-6.7) 10^3/uL 13.12 H Absolute Lymphocytes (1.2-3.4) 10^3/uL 0.38 L Absolute Monocytes (0.1-0.8) 10^3/uL 0.47 Absolute Eosinophils (0.0-0.7) 10^3/uL 0.00 Absolute Basophils (0.0-0.2) 10^3/uL 0.01 RBC Morphology Basophilic Stippling ESR (0-20) mm/hr Sample Site ABG Sample Site ABG pH (7.35-7.45) ABG pCO2 (35-45) mmHg ABG pO2 (80-105) mmHg ABG HCO3 (22-26) mmol/L ABG Total CO2 (23-27) mmol/L ABG O2 Saturation (95-98) % ABG Base Excess (-2-3) mmol/L VBG Lactate (0.6-1.4) mmol/L Oxygen Liter Flow FiO2 FiO2 (liters per min) L Sodium (136-145) mmol/L Potassium (3.5-5.1) mmol/L Chloride (98-107) mmol/L Carbon Dioxide (21.0-32.0) mmol/L Anion Gap (3-11) mmol/L BUN (7-18) mg/dL Creatinine (0.70-1.30) mg/dL Estimated GFR/1.73 m2 (mL/min/1.73m2) Glucose (74-106) mg/dL Calcium (8.5-10.1) mg/dL Magnesium (1.8-2.4) mg/dL Ferritin (22-322) ng/mL Total Bilirubin (0.2-1.0) mg/dL Conjugated Bilirubin (0.0-0.2) mg/dL AST (15-37) U/L ALT (16-63) U/L Alkaline Phosphatase (46-116) U/L Troponin I (<or=60) ng/L C-Reactive Protein (0.0-0.3) mg/dL NT-Pro-B Natriuret Pep (<300) pg/mL Total Protein (6.4-8.2) g/dL Albumin (3.4-5.0) g/dL Procalcitonin ng/mL TSH (0.36-3.74) uIU/mL C. albicans Allerg IgE kU/L M. racemosus Allrg IgE kU/L Urine Color (Yellow) Yellow Urine Clarity (Clear) Sl Cloudy Urine pH (5-8) 5.5 Ur Specific [place] (1.005-1.025) >= 1.030 H Urine Protein (Negative) mg/dL 30 H Urine Ketones (Negative) mg/dL Negative Urine Blood (Negative) Large H Urine Nitrite (Negative) Negative Urine Bilirubin (Negative) Negative Urine Urobilinogen (Up TO 0.2) EU/dL 0.2 Ur Leukocyte Esterase (Negative) Negative Urine RBC (0-2) HPF >50 H Urine WBC (0-5) HPF 0-2 Ur Epithelial Cells (Negative) HPF Negative Urine Crystals (Negative) HPF Moderate Uric Acid Urine Bacteria (Negative) HPF Few Urine Casts (Negative) LPF Urine Mucus (Negative) Negative Ur Culture Indicated? No Urine Glucose (Negative) mg/dL Negative Fluid Source Fluid Color Fluid Clarity Fluid WBC Fld Polynuclear WBCs % Fluid Mononuclear Cell Fluid Other Cells Vancomycin Trough Rheumatoid Factor (<12.0) IU/mL Cyclic Citrull Peptide (<5.0) U/mL ANNIE Titer ANNIE Titer 2 ANNIE Titer 3 ANNIE Interpretation (Negative) ANCA Immunofluorescen (Negative) ANCA Titer ANCA Pattern SS-A Antibody (<20.0) Units SS-B Antibody (<20.0) Units Scl-70 IgG Ab U Double Strand DNA Ab (<30.0) IU/mL Gram Stain Adenovirus DNA (Negative) Blastomyces Ag Result Blastomyces Ag Comment ng/mL COVID-19 Source SARS-CoV-2 (PCR) (Negative) Urine Histoplasma Ag U Histoplasma Ag Index ng/mL Human Metapneumovir RNA (Negative) Influenza Type A (PCR) (Negative) Influenza Type B (PCR) (Negative) L.pneumophila Antibody (Negative) Urine Legionella Ag (Negative) Negative M. pneumoniae Source M. pneumoniae (PCR) Parainfluenza 1 (PCR) (Negative) Parainfluenza 2 (PCR) (Negative) Parainfluenza 3 (PCR) (Negative) Parainfluenza 4 (PCR) (Negative) Aspergillus Ag (EIA) (<0.5) index RSV (PCR) (Negative) Resp Viral Spec Desc Rhinovirus (PCR) (Negative) AFB Source AFB Culture Final Res Aerobic Culture Fungal Specimen Source B-(1,3)-D-Glucan Quant (<60 pg/mL) pg/mL B-(1,3)-D-Glucan Qual (Negative) Fungal Culture Status Fungal Culture Final Fungal Smear Result M. Tuberculosis PCR Path Cons Comment AFB Smear (Ref Lab) Add-On Test Request Ref Test Specimen Type Ref Report Verification Range/Units 11/04/21 11/04/21 11/05/21 19:35 19:35 07:50 WBC (4.4-10.8) 10^3/uL RBC (4.36-5.78) 10^6/uL Hgb (13.5-17.5) g/dL Hct (40.0-50.0) % MCV (80-95) fL MCH (27.0-33.0) pg MCHC (32.0-36.0) % RDW (11.8-14.1) % Plt Count (130-400) 10^3/uL MPV (8.0-11.0) fL Immature Gran % Neutrophils % Band Neutrophils % Lymphocytes % Atypical Lymphs % Monocytes % Eosinophils % Basophils % Metamyelocytes % Myelocytes % Nucleated RBC % % Absolute Neutrophils (1.2-6.7) 10^3/uL Absolute Lymphocytes (1.2-3.4) 10^3/uL Absolute Monocytes (0.1-0.8) 10^3/uL Absolute Eosinophils (0.0-0.7) 10^3/uL Absolute Basophils (0.0-0.2) 10^3/uL RBC Morphology Basophilic Stippling ESR (0-20) mm/hr Sample Site ABG Sample Site ABG pH (7.35-7.45) ABG pCO2 (35-45) mmHg ABG pO2 (80-105) mmHg ABG HCO3 (22-26) mmol/L ABG Total CO2 (23-27) mmol/L ABG O2 Saturation (95-98) % ABG Base Excess (-2-3) mmol/L VBG Lactate (0.6-1.4) mmol/L Oxygen Liter Flow FiO2 FiO2 (liters per min) L Sodium (136-145) mmol/L 141 Potassium (3.5-5.1) mmol/L 3.4 L Chloride (98-107) mmol/L 103 Carbon Dioxide (21.0-32.0) mmol/L 23.6 Anion Gap (3-11) mmol/L 14.4 H BUN (7-18) mg/dL 41 H Creatinine (0.70-1.30) mg/dL 2.0 H Estimated GFR/1.73 m2 (mL/min/1.73m2) 32.23 Glucose (74-106) mg/dL 180 H Calcium (8.5-10.1) mg/dL 9.5 Magnesium (1.8-2.4) mg/dL Ferritin (22-322) ng/mL Total Bilirubin (0.2-1.0) mg/dL Conjugated Bilirubin (0.0-0.2) mg/dL AST (15-37) U/L ALT (16-63) U/L Alkaline Phosphatase (46-116) U/L Troponin I (<or=60) ng/L C-Reactive Protein (0.0-0.3) mg/dL NT-Pro-B Natriuret Pep (<300) pg/mL Total Protein (6.4-8.2) g/dL Albumin (3.4-5.0) g/dL Procalcitonin ng/mL TSH (0.36-3.74) uIU/mL C. albicans Allerg IgE kU/L M. racemosus Allrg IgE kU/L Urine Color (Yellow) Urine Clarity (Clear) Urine pH (5-8) Ur Specific [place] (1.005-1.025) Urine Protein (Negative) mg/dL Urine Ketones (Negative) mg/dL Urine Blood (Negative) Urine Nitrite (Negative) Urine Bilirubin (Negative) Urine Urobilinogen (Up TO 0.2) EU/dL Ur Leukocyte Esterase (Negative) Urine RBC (0-2) HPF Urine WBC (0-5) HPF Ur Epithelial Cells (Negative) HPF Urine Crystals (Negative) HPF Urine Bacteria (Negative) HPF Urine Casts (Negative) LPF Urine Mucus (Negative) Ur Culture Indicated? Urine Glucose (Negative) mg/dL Fluid Source Fluid Color Fluid Clarity Fluid WBC Fld Polynuclear WBCs % Fluid Mononuclear Cell Fluid Other Cells Vancomycin Trough Rheumatoid Factor (<12.0) IU/mL Cyclic Citrull Peptide (<5.0) U/mL ANNIE Titer ANNIE Titer 2 ANNIE Titer 3 ANNIE Interpretation (Negative) ANCA Immunofluorescen (Negative) ANCA Titer ANCA Pattern SS-A Antibody (<20.0) Units SS-B Antibody (<20.0) Units Scl-70 IgG Ab U Double Strand DNA Ab (<30.0) IU/mL Gram Stain Adenovirus DNA (Negative) Blastomyces Ag Result Not Detected Blastomyces Ag Comment ng/mL Not Detected COVID-19 Source SARS-CoV-2 (PCR) (Negative) Urine Histoplasma Ag Not Detected U Histoplasma Ag Index ng/mL Not Detected Human Metapneumovir RNA (Negative) Influenza Type A (PCR) (Negative) Influenza Type B (PCR) (Negative) L.pneumophila Antibody (Negative) Urine Legionella Ag (Negative) M. pneumoniae Source M. pneumoniae (PCR) Parainfluenza 1 (PCR) (Negative) Parainfluenza 2 (PCR) (Negative) Parainfluenza 3 (PCR) (Negative) Parainfluenza 4 (PCR) (Negative) Aspergillus Ag (EIA) (<0.5) index RSV (PCR) (Negative) Resp Viral Spec Desc Rhinovirus (PCR) (Negative) AFB Source AFB Culture Final Res Aerobic Culture Fungal Specimen Source B-(1,3)-D-Glucan Quant (<60 pg/mL) pg/mL B-(1,3)-D-Glucan Qual (Negative) Fungal Culture Status Fungal Culture Final Fungal Smear Result M. Tuberculosis PCR Path Cons Comment AFB Smear (Ref Lab) Add-On Test Request Ref Test Specimen Type Ref Report Verification Range/Units 11/05/21 11/05/21 11/05/21 07:50 07:50 07:50 WBC (4.4-10.8) 10^3/uL RBC (4.36-5.78) 10^6/uL Hgb (13.5-17.5) g/dL Hct (40.0-50.0) % MCV (80-95) fL MCH (27.0-33.0) pg MCHC (32.0-36.0) % RDW (11.8-14.1) % Plt Count (130-400) 10^3/uL MPV (8.0-11.0) fL Immature Gran % Neutrophils % Band Neutrophils % Lymphocytes % Atypical Lymphs % Monocytes % Eosinophils % Basophils % Metamyelocytes % Myelocytes % Nucleated RBC % % Absolute Neutrophils (1.2-6.7) 10^3/uL Absolute Lymphocytes (1.2-3.4) 10^3/uL Absolute Monocytes (0.1-0.8) 10^3/uL Absolute Eosinophils (0.0-0.7) 10^3/uL Absolute Basophils (0.0-0.2) 10^3/uL RBC Morphology Basophilic Stippling ESR (0-20) mm/hr 29 H Sample Site ABG Sample Site ABG pH (7.35-7.45) ABG pCO2 (35-45) mmHg ABG pO2 (80-105) mmHg ABG HCO3 (22-26) mmol/L ABG Total CO2 (23-27) mmol/L ABG O2 Saturation (95-98) % ABG Base Excess (-2-3) mmol/L VBG Lactate (0.6-1.4) mmol/L Oxygen Liter Flow FiO2 FiO2 (liters per min) L Sodium (136-145) mmol/L Potassium (3.5-5.1) mmol/L Chloride (98-107) mmol/L Carbon Dioxide (21.0-32.0) mmol/L Anion Gap (3-11) mmol/L BUN (7-18) mg/dL Creatinine (0.70-1.30) mg/dL Estimated GFR/1.73 m2 (mL/min/1.73m2) Glucose (74-106) mg/dL Calcium (8.5-10.1) mg/dL Magnesium (1.8-2.4) mg/dL Ferritin (22-322) ng/mL Total Bilirubin (0.2-1.0) mg/dL Conjugated Bilirubin (0.0-0.2) mg/dL AST (15-37) U/L ALT (16-63) U/L Alkaline Phosphatase (46-116) U/L Troponin I (<or=60) ng/L C-Reactive Protein (0.0-0.3) mg/dL 9.36 H NT-Pro-B Natriuret Pep (<300) pg/mL Total Protein (6.4-8.2) g/dL Albumin (3.4-5.0) g/dL Procalcitonin ng/mL TSH (0.36-3.74) uIU/mL C. albicans Allerg IgE kU/L M. racemosus Allrg IgE kU/L Urine Color (Yellow) Urine Clarity (Clear) Urine pH (5-8) Ur Specific [place] (1.005-1.025) Urine Protein (Negative) mg/dL Urine Ketones (Negative) mg/dL Urine Blood (Negative) Urine Nitrite (Negative) Urine Bilirubin (Negative) Urine Urobilinogen (Up TO 0.2) EU/dL Ur Leukocyte Esterase (Negative) Urine RBC (0-2) HPF Urine WBC (0-5) HPF Ur Epithelial Cells (Negative) HPF Urine Crystals (Negative) HPF Urine Bacteria (Negative) HPF Urine Casts (Negative) LPF Urine Mucus (Negative) Ur Culture Indicated? Urine Glucose (Negative) mg/dL Fluid Source Fluid Color Fluid Clarity Fluid WBC Fld Polynuclear WBCs % Fluid Mononuclear Cell Fluid Other Cells Vancomycin Trough Rheumatoid Factor (<12.0) IU/mL Cyclic Citrull Peptide (<5.0) U/mL ANNIE Titer ANNIE Titer 2 ANNIE Titer 3 ANNIE Interpretation (Negative) ANCA Immunofluorescen (Negative) ANCA Titer ANCA Pattern SS-A Antibody (<20.0) Units 1.0 SS-B Antibody (<20.0) Units Scl-70 IgG Ab U Double Strand DNA Ab (<30.0) IU/mL <12.3 Gram Stain Adenovirus DNA (Negative) Blastomyces Ag Result Blastomyces Ag Comment ng/mL COVID-19 Source SARS-CoV-2 (PCR) (Negative) Urine Histoplasma Ag U Histoplasma Ag Index ng/mL Human Metapneumovir RNA (Negative) Influenza Type A (PCR) (Negative) Influenza Type B (PCR) (Negative) L.pneumophila Antibody (Negative) Urine Legionella Ag (Negative) M. pneumoniae Source M. pneumoniae (PCR) Parainfluenza 1 (PCR) (Negative) Parainfluenza 2 (PCR) (Negative) Parainfluenza 3 (PCR) (Negative) Parainfluenza 4 (PCR) (Negative) Aspergillus Ag (EIA) (<0.5) index RSV (PCR) (Negative) Resp Viral Spec Desc Rhinovirus (PCR) (Negative) AFB Source AFB Culture Final Res Aerobic Culture Fungal Specimen Source B-(1,3)-D-Glucan Quant (<60 pg/mL) pg/mL B-(1,3)-D-Glucan Qual (Negative) Fungal Culture Status Fungal Culture Final Fungal Smear Result M. Tuberculosis PCR Path Cons Comment AFB Smear (Ref Lab) Add-On Test Request Ref Test Specimen Type Ref Report Verification Range/Units 11/05/21 11/05/21 11/05/21 08:35 08:35 08:35 WBC (4.4-10.8) 10^3/uL RBC (4.36-5.78) 10^6/uL Hgb (13.5-17.5) g/dL Hct (40.0-50.0) % MCV (80-95) fL MCH (27.0-33.0) pg MCHC (32.0-36.0) % RDW (11.8-14.1) % Plt Count (130-400) 10^3/uL MPV (8.0-11.0) fL Immature Gran % Neutrophils % Band Neutrophils % Lymphocytes % Atypical Lymphs % Monocytes % Eosinophils % Basophils % Metamyelocytes % Myelocytes % Nucleated RBC % % Absolute Neutrophils (1.2-6.7) 10^3/uL Absolute Lymphocytes (1.2-3.4) 10^3/uL Absolute Monocytes (0.1-0.8) 10^3/uL Absolute Eosinophils (0.0-0.7) 10^3/uL Absolute Basophils (0.0-0.2) 10^3/uL RBC Morphology Basophilic Stippling ESR (0-20) mm/hr Sample Site ABG Sample Site ABG pH (7.35-7.45) ABG pCO2 (35-45) mmHg ABG pO2 (80-105) mmHg ABG HCO3 (22-26) mmol/L ABG Total CO2 (23-27) mmol/L ABG O2 Saturation (95-98) % ABG Base Excess (-2-3) mmol/L VBG Lactate (0.6-1.4) mmol/L Oxygen Liter Flow FiO2 FiO2 (liters per min) L Sodium (136-145) mmol/L Potassium (3.5-5.1) mmol/L Chloride (98-107) mmol/L Carbon Dioxide (21.0-32.0) mmol/L Anion Gap (3-11) mmol/L BUN (7-18) mg/dL Creatinine (0.70-1.30) mg/dL Estimated GFR/1.73 m2 (mL/min/1.73m2) Glucose (74-106) mg/dL Calcium (8.5-10.1) mg/dL Magnesium (1.8-2.4) mg/dL Ferritin (22-322) ng/mL Total Bilirubin (0.2-1.0) mg/dL Conjugated Bilirubin (0.0-0.2) mg/dL AST (15-37) U/L ALT (16-63) U/L Alkaline Phosphatase (46-116) U/L Troponin I (<or=60) ng/L C-Reactive Protein (0.0-0.3) mg/dL NT-Pro-B Natriuret Pep (<300) pg/mL Total Protein (6.4-8.2) g/dL Albumin (3.4-5.0) g/dL Procalcitonin ng/mL TSH (0.36-3.74) uIU/mL C. albicans Allerg IgE kU/L M. racemosus Allrg IgE kU/L Urine Color (Yellow) Urine Clarity (Clear) Urine pH (5-8) Ur Specific [place] (1.005-1.025) Urine Protein (Negative) mg/dL Urine Ketones (Negative) mg/dL Urine Blood (Negative) Urine Nitrite (Negative) Urine Bilirubin (Negative) Urine Urobilinogen (Up TO 0.2) EU/dL Ur Leukocyte Esterase (Negative) Urine RBC (0-2) HPF Urine WBC (0-5) HPF Ur Epithelial Cells (Negative) HPF Urine Crystals (Negative) HPF Urine Bacteria (Negative) HPF Urine Casts (Negative) LPF Urine Mucus (Negative) Ur Culture Indicated? Urine Glucose (Negative) mg/dL Fluid Source Fluid Color Fluid Clarity Fluid WBC Fld Polynuclear WBCs % Fluid Mononuclear Cell Fluid Other Cells Vancomycin Trough Rheumatoid Factor (<12.0) IU/mL 9.3 Cyclic Citrull Peptide (<5.0) U/mL <2.5 ANNIE Titer 1:160 Speckled ANNIE Titer 2 Not Applicable ANNIE Titer 3 Not Applicable ANNIE Interpretation (Negative) Positive A ANCA Immunofluorescen (Negative) Negative ANCA Titer Not Applicable ANCA Pattern Not Applicable SS-A Antibody (<20.0) Units SS-B Antibody (<20.0) Units 0.8 Scl-70 IgG Ab U <0.2 Double Strand DNA Ab (<30.0) IU/mL Gram Stain Adenovirus DNA (Negative) Blastomyces Ag Result Blastomyces Ag Comment ng/mL COVID-19 Source SARS-CoV-2 (PCR) (Negative) Urine Histoplasma Ag U Histoplasma Ag Index ng/mL Human Metapneumovir RNA (Negative) Influenza Type A (PCR) (Negative) Influenza Type B (PCR) (Negative) L.pneumophila Antibody (Negative) Urine Legionella Ag (Negative) M. pneumoniae Source M. pneumoniae (PCR) Parainfluenza 1 (PCR) (Negative) Parainfluenza 2 (PCR) (Negative) Parainfluenza 3 (PCR) (Negative) Parainfluenza 4 (PCR) (Negative) Aspergillus Ag (EIA) (<0.5) index RSV (PCR) (Negative) Resp Viral Spec Desc Rhinovirus (PCR) (Negative) AFB Source AFB Culture Final Res Aerobic Culture Fungal Specimen Source B-(1,3)-D-Glucan Quant (<60 pg/mL) pg/mL 149 A B-(1,3)-D-Glucan Qual (Negative) Positive A Fungal Culture Status Fungal Culture Final Fungal Smear Result M. Tuberculosis PCR Path Cons Comment AFB Smear (Ref Lab) Add-On Test Request Ref Test Specimen Type Ref Report Verification Range/Units 11/05/21 11/06/21 11/06/21 13:00 06:21 06:21 WBC (4.4-10.8) 10^3/uL 10.75 RBC (4.36-5.78) 10^6/uL 3.44 L Hgb (13.5-17.5) g/dL 11.3 L Hct (40.0-50.0) % 34.4 L MCV (80-95) fL 100.0 H MCH (27.0-33.0) pg 32.8 MCHC (32.0-36.0) % 32.8 RDW (11.8-14.1) % 13.2 Plt Count (130-400) 10^3/uL 239 MPV (8.0-11.0) fL 10.5 Immature Gran % 3.1 Neutrophils % 85.9 Band Neutrophils % Lymphocytes % 4.8 Atypical Lymphs % Monocytes % 5.9 Eosinophils % 0.1 Basophils % 0.2 Metamyelocytes % Myelocytes % Nucleated RBC % % 0 Absolute Neutrophils (1.2-6.7) 10^3/uL 9.24 H Absolute Lymphocytes (1.2-3.4) 10^3/uL 0.52 L Absolute Monocytes (0.1-0.8) 10^3/uL 0.63 Absolute Eosinophils (0.0-0.7) 10^3/uL 0.01 Absolute Basophils (0.0-0.2) 10^3/uL 0.02 RBC Morphology Basophilic Stippling ESR (0-20) mm/hr Sample Site ABG Sample Site ABG pH (7.35-7.45) ABG pCO2 (35-45) mmHg ABG pO2 (80-105) mmHg ABG HCO3 (22-26) mmol/L ABG Total CO2 (23-27) mmol/L ABG O2 Saturation (95-98) % ABG Base Excess (-2-3) mmol/L VBG Lactate (0.6-1.4) mmol/L Oxygen Liter Flow FiO2 FiO2 (liters per min) L Sodium (136-145) mmol/L 142 Potassium (3.5-5.1) mmol/L 3.3 L Chloride (98-107) mmol/L 106 Carbon Dioxide (21.0-32.0) mmol/L 24.3 Anion Gap (3-11) mmol/L 11.7 H BUN (7-18) mg/dL 40 H Creatinine (0.70-1.30) mg/dL 1.6 H Estimated GFR/1.73 m2 (mL/min/1.73m2) 41.69 Glucose (74-106) mg/dL 147 H Calcium (8.5-10.1) mg/dL 9.3 Magnesium (1.8-2.4) mg/dL Ferritin (22-322) ng/mL Total Bilirubin (0.2-1.0) mg/dL Conjugated Bilirubin (0.0-0.2) mg/dL AST (15-37) U/L ALT (16-63) U/L Alkaline Phosphatase (46-116) U/L Troponin I (<or=60) ng/L C-Reactive Protein (0.0-0.3) mg/dL NT-Pro-B Natriuret Pep (<300) pg/mL Total Protein (6.4-8.2) g/dL Albumin (3.4-5.0) g/dL Procalcitonin ng/mL TSH (0.36-3.74) uIU/mL C. albicans Allerg IgE kU/L M. racemosus Allrg IgE kU/L Urine Color (Yellow) Urine Clarity (Clear) Urine pH (5-8) Ur Specific [place] (1.005-1.025) Urine Protein (Negative) mg/dL Urine Ketones (Negative) mg/dL Urine Blood (Negative) Urine Nitrite (Negative) Urine Bilirubin (Negative) Urine Urobilinogen (Up TO 0.2) EU/dL Ur Leukocyte Esterase (Negative) Urine RBC (0-2) HPF Urine WBC (0-5) HPF Ur Epithelial Cells (Negative) HPF Urine Crystals (Negative) HPF Urine Bacteria (Negative) HPF Urine Casts (Negative) LPF Urine Mucus (Negative) Ur Culture Indicated? Urine Glucose (Negative) mg/dL Fluid Source Fluid Color Fluid Clarity Fluid WBC Fld Polynuclear WBCs % Fluid Mononuclear Cell Fluid Other Cells Vancomycin Trough Cancelled Rheumatoid Factor (<12.0) IU/mL Cyclic Citrull Peptide (<5.0) U/mL ANNIE Titer ANNIE Titer 2 ANNIE Titer 3 ANNIE Interpretation (Negative) ANCA Immunofluorescen (Negative) ANCA Titer ANCA Pattern SS-A Antibody (<20.0) Units SS-B Antibody (<20.0) Units Scl-70 IgG Ab U Double Strand DNA Ab (<30.0) IU/mL Gram Stain Adenovirus DNA (Negative) Blastomyces Ag Result Blastomyces Ag Comment ng/mL COVID-19 Source SARS-CoV-2 (PCR) (Negative) Urine Histoplasma Ag U Histoplasma Ag Index ng/mL Human Metapneumovir RNA (Negative) Influenza Type A (PCR) (Negative) Influenza Type B (PCR) (Negative) L.pneumophila Antibody (Negative) Urine Legionella Ag (Negative) M. pneumoniae Source M. pneumoniae (PCR) Parainfluenza 1 (PCR) (Negative) Parainfluenza 2 (PCR) (Negative) Parainfluenza 3 (PCR) (Negative) Parainfluenza 4 (PCR) (Negative) Aspergillus Ag (EIA) (<0.5) index RSV (PCR) (Negative) Resp Viral Spec Desc Rhinovirus (PCR) (Negative) AFB Source AFB Culture Final Res Aerobic Culture Fungal Specimen Source B-(1,3)-D-Glucan Quant (<60 pg/mL) pg/mL B-(1,3)-D-Glucan Qual (Negative) Fungal Culture Status Fungal Culture Final Fungal Smear Result M. Tuberculosis PCR Path Cons Comment AFB Smear (Ref Lab) Add-On Test Request Ref Test Specimen Type Ref Report Verification Range/Units 11/07/21 11/07/21 11/07/21 12:45 12:45 16:25 WBC (4.4-10.8) 10^3/uL RBC (4.36-5.78) 10^6/uL Hgb (13.5-17.5) g/dL Hct (40.0-50.0) % MCV (80-95) fL MCH (27.0-33.0) pg MCHC (32.0-36.0) % RDW (11.8-14.1) % Plt Count (130-400) 10^3/uL MPV (8.0-11.0) fL Immature Gran % Neutrophils % Band Neutrophils % Lymphocytes % Atypical Lymphs % Monocytes % Eosinophils % Basophils % Metamyelocytes % Myelocytes % Nucleated RBC % % Absolute Neutrophils (1.2-6.7) 10^3/uL Absolute Lymphocytes (1.2-3.4) 10^3/uL Absolute Monocytes (0.1-0.8) 10^3/uL Absolute Eosinophils (0.0-0.7) 10^3/uL Absolute Basophils (0.0-0.2) 10^3/uL RBC Morphology Basophilic Stippling ESR (0-20) mm/hr Sample Site ABG Sample Site ABG pH (7.35-7.45) ABG pCO2 (35-45) mmHg ABG pO2 (80-105) mmHg ABG HCO3 (22-26) mmol/L ABG Total CO2 (23-27) mmol/L ABG O2 Saturation (95-98) % ABG Base Excess (-2-3) mmol/L VBG Lactate (0.6-1.4) mmol/L Oxygen Liter Flow FiO2 FiO2 (liters per min) L Sodium (136-145) mmol/L Potassium (3.5-5.1) mmol/L Chloride (98-107) mmol/L Carbon Dioxide (21.0-32.0) mmol/L Anion Gap (3-11) mmol/L BUN (7-18) mg/dL Creatinine (0.70-1.30) mg/dL Estimated GFR/1.73 m2 (mL/min/1.73m2) Glucose (74-106) mg/dL Calcium (8.5-10.1) mg/dL Magnesium (1.8-2.4) mg/dL Ferritin (22-322) ng/mL Total Bilirubin (0.2-1.0) mg/dL Conjugated Bilirubin (0.0-0.2) mg/dL AST (15-37) U/L ALT (16-63) U/L Alkaline Phosphatase (46-116) U/L Troponin I (<or=60) ng/L C-Reactive Protein (0.0-0.3) mg/dL NT-Pro-B Natriuret Pep (<300) pg/mL Total Protein (6.4-8.2) g/dL Albumin (3.4-5.0) g/dL Procalcitonin ng/mL TSH (0.36-3.74) uIU/mL C. albicans Allerg IgE kU/L <0.35 M. racemosus Allrg IgE kU/L <0.35 Urine Color (Yellow) Urine Clarity (Clear) Urine pH (5-8) Ur Specific [place] (1.005-1.025) Urine Protein (Negative) mg/dL Urine Ketones (Negative) mg/dL Urine Blood (Negative) Urine Nitrite (Negative) Urine Bilirubin (Negative) Urine Urobilinogen (Up TO 0.2) EU/dL Ur Leukocyte Esterase (Negative) Urine RBC (0-2) HPF Urine WBC (0-5) HPF Ur Epithelial Cells (Negative) HPF Urine Crystals (Negative) HPF Urine Bacteria (Negative) HPF Urine Casts (Negative) LPF Urine Mucus (Negative) Ur Culture Indicated? Urine Glucose (Negative) mg/dL Fluid Source Fluid Color Fluid Clarity Fluid WBC Fld Polynuclear WBCs % Fluid Mononuclear Cell Fluid Other Cells Vancomycin Trough Rheumatoid Factor (<12.0) IU/mL Cyclic Citrull Peptide (<5.0) U/mL ANNIE Titer ANNIE Titer 2 ANNIE Titer 3 ANNIE Interpretation (Negative) ANCA Immunofluorescen (Negative) ANCA Titer ANCA Pattern SS-A Antibody (<20.0) Units SS-B Antibody (<20.0) Units Scl-70 IgG Ab U Double Strand DNA Ab (<30.0) IU/mL Gram Stain Adenovirus DNA (Negative) Blastomyces Ag Result Blastomyces Ag Comment ng/mL COVID-19 Source SARS-CoV-2 (PCR) (Negative) Urine Histoplasma Ag U Histoplasma Ag Index ng/mL Human Metapneumovir RNA (Negative) Influenza Type A (PCR) (Negative) Influenza Type B (PCR) (Negative) L.pneumophila Antibody (Negative) Urine Legionella Ag (Negative) M. pneumoniae Source M. pneumoniae (PCR) Parainfluenza 1 (PCR) (Negative) Parainfluenza 2 (PCR) (Negative) Parainfluenza 3 (PCR) (Negative) Parainfluenza 4 (PCR) (Negative) Aspergillus Ag (EIA) (<0.5) index <0.500 RSV (PCR) (Negative) Resp Viral Spec Desc Rhinovirus (PCR) (Negative) AFB Source AFB Culture Final Res Aerobic Culture Fungal Specimen Source B-(1,3)-D-Glucan Quant (<60 pg/mL) pg/mL B-(1,3)-D-Glucan Qual (Negative) Fungal Culture Status Fungal Culture Final Fungal Smear Result M. Tuberculosis PCR Path Cons Comment AFB Smear (Ref Lab) Add-On Test Request Ref Test Specimen Type Ref Report Verification Range/Units 11/07/21 11/08/21 11/09/21 16:25 06:14 12:30 WBC (4.4-10.8) 10^3/uL RBC (4.36-5.78) 10^6/uL Hgb (13.5-17.5) g/dL Hct (40.0-50.0) % MCV (80-95) fL MCH (27.0-33.0) pg MCHC (32.0-36.0) % RDW (11.8-14.1) % Plt Count (130-400) 10^3/uL MPV (8.0-11.0) fL Immature Gran % Neutrophils % Band Neutrophils % Lymphocytes % Atypical Lymphs % Monocytes % Eosinophils % Basophils % Metamyelocytes % Myelocytes % Nucleated RBC % % Absolute Neutrophils (1.2-6.7) 10^3/uL Absolute Lymphocytes (1.2-3.4) 10^3/uL Absolute Monocytes (0.1-0.8) 10^3/uL Absolute Eosinophils (0.0-0.7) 10^3/uL Absolute Basophils (0.0-0.2) 10^3/uL RBC Morphology Basophilic Stippling ESR (0-20) mm/hr Sample Site ABG Sample Site ABG pH (7.35-7.45) ABG pCO2 (35-45) mmHg ABG pO2 (80-105) mmHg ABG HCO3 (22-26) mmol/L ABG Total CO2 (23-27) mmol/L ABG O2 Saturation (95-98) % ABG Base Excess (-2-3) mmol/L VBG Lactate (0.6-1.4) mmol/L Oxygen Liter Flow FiO2 FiO2 (liters per min) L Sodium (136-145) mmol/L 145 Potassium (3.5-5.1) mmol/L 4.1 D Chloride (98-107) mmol/L 108 H Carbon Dioxide (21.0-32.0) mmol/L 28.0 Anion Gap (3-11) mmol/L 9.0 BUN (7-18) mg/dL 35 H Creatinine (0.70-1.30) mg/dL 1.5 H Estimated GFR/1.73 m2 (mL/min/1.73m2) 44.92 Glucose (74-106) mg/dL 113 H Calcium (8.5-10.1) mg/dL 9.4 Magnesium (1.8-2.4) mg/dL Ferritin (22-322) ng/mL Total Bilirubin (0.2-1.0) mg/dL Conjugated Bilirubin (0.0-0.2) mg/dL AST (15-37) U/L ALT (16-63) U/L Alkaline Phosphatase (46-116) U/L Troponin I (<or=60) ng/L C-Reactive Protein (0.0-0.3) mg/dL NT-Pro-B Natriuret Pep (<300) pg/mL Total Protein (6.4-8.2) g/dL Albumin (3.4-5.0) g/dL Procalcitonin ng/mL TSH (0.36-3.74) uIU/mL C. albicans Allerg IgE kU/L M. racemosus Allrg IgE kU/L Urine Color (Yellow) Urine Clarity (Clear) Urine pH (5-8) Ur Specific [place] (1.005-1.025) Urine Protein (Negative) mg/dL Urine Ketones (Negative) mg/dL Urine Blood (Negative) Urine Nitrite (Negative) Urine Bilirubin (Negative) Urine Urobilinogen (Up TO 0.2) EU/dL Ur Leukocyte Esterase (Negative) Urine RBC (0-2) HPF Urine WBC (0-5) HPF Ur Epithelial Cells (Negative) HPF Urine Crystals (Negative) HPF Urine Bacteria (Negative) HPF Urine Casts (Negative) LPF Urine Mucus (Negative) Ur Culture Indicated? Urine Glucose (Negative) mg/dL Fluid Source Fluid Color Fluid Clarity Fluid WBC Fld Polynuclear WBCs % Fluid Mononuclear Cell Fluid Other Cells Vancomycin Trough Rheumatoid Factor (<12.0) IU/mL Cyclic Citrull Peptide (<5.0) U/mL ANNIE Titer ANNIE Titer 2 ANNIE Titer 3 NANIE Interpretation (Negative) ANCA Immunofluorescen (Negative) ANCA Titer ANCA Pattern SS-A Antibody (<20.0) Units SS-B Antibody (<20.0) Units Scl-70 IgG Ab U Double Strand DNA Ab (<30.0) IU/mL Gram Stain Adenovirus DNA (Negative) Blastomyces Ag Result Blastomyces Ag Comment ng/mL COVID-19 Source SARS-CoV-2 (PCR) (Negative) Urine Histoplasma Ag U Histoplasma Ag Index ng/mL Human Metapneumovir RNA (Negative) Influenza Type A (PCR) (Negative) Influenza Type B (PCR) (Negative) L.pneumophila Antibody (Negative) Urine Legionella Ag (Negative) M. pneumoniae Source M. pneumoniae (PCR) Parainfluenza 1 (PCR) (Negative) Parainfluenza 2 (PCR) (Negative) Parainfluenza 3 (PCR) (Negative) Parainfluenza 4 (PCR) (Negative) Aspergillus Ag (EIA) (<0.5) index RSV (PCR) (Negative) Resp Viral Spec Desc Rhinovirus (PCR) (Negative) AFB Source AFB Culture Final Res Aerobic Culture Fungal Specimen Source Cancelled B-(1,3)-D-Glucan Quant (<60 pg/mL) pg/mL 123 A B-(1,3)-D-Glucan Qual (Negative) Positive A Fungal Culture Status Cancelled Fungal Culture Final Cancelled Fungal Smear Result Cancelled M. Tuberculosis PCR Path Cons Comment AFB Smear (Ref Lab) Add-On Test Request Ref Test Specimen Type Ref Report Verification Range/Units 11/09/21 11/09/21 11/09/21 12:30 12:30 12:30 WBC (4.4-10.8) 10^3/uL RBC (4.36-5.78) 10^6/uL Hgb (13.5-17.5) g/dL Hct (40.0-50.0) % MCV (80-95) fL MCH (27.0-33.0) pg MCHC (32.0-36.0) % RDW (11.8-14.1) % Plt Count (130-400) 10^3/uL MPV (8.0-11.0) fL Immature Gran % Neutrophils % Band Neutrophils % Lymphocytes % Atypical Lymphs % Monocytes % Eosinophils % Basophils % Metamyelocytes % Myelocytes % Nucleated RBC % % Absolute Neutrophils (1.2-6.7) 10^3/uL Absolute Lymphocytes (1.2-3.4) 10^3/uL Absolute Monocytes (0.1-0.8) 10^3/uL Absolute Eosinophils (0.0-0.7) 10^3/uL Absolute Basophils (0.0-0.2) 10^3/uL RBC Morphology Basophilic Stippling ESR (0-20) mm/hr Sample Site ABG Sample Site ABG pH (7.35-7.45) ABG pCO2 (35-45) mmHg ABG pO2 (80-105) mmHg ABG HCO3 (22-26) mmol/L ABG Total CO2 (23-27) mmol/L ABG O2 Saturation (95-98) % ABG Base Excess (-2-3) mmol/L VBG Lactate (0.6-1.4) mmol/L Oxygen Liter Flow FiO2 FiO2 (liters per min) L Sodium (136-145) mmol/L Potassium (3.5-5.1) mmol/L Chloride (98-107) mmol/L Carbon Dioxide (21.0-32.0) mmol/L Anion Gap (3-11) mmol/L BUN (7-18) mg/dL Creatinine (0.70-1.30) mg/dL Estimated GFR/1.73 m2 (mL/min/1.73m2) Glucose (74-106) mg/dL Calcium (8.5-10.1) mg/dL Magnesium (1.8-2.4) mg/dL Ferritin (22-322) ng/mL Total Bilirubin (0.2-1.0) mg/dL Conjugated Bilirubin (0.0-0.2) mg/dL AST (15-37) U/L ALT (16-63) U/L Alkaline Phosphatase (46-116) U/L Troponin I (<or=60) ng/L C-Reactive Protein (0.0-0.3) mg/dL NT-Pro-B Natriuret Pep (<300) pg/mL Total Protein (6.4-8.2) g/dL Albumin (3.4-5.0) g/dL Procalcitonin ng/mL TSH (0.36-3.74) uIU/mL C. albicans Allerg IgE kU/L M. racemosus Allrg IgE kU/L Urine Color (Yellow) Urine Clarity (Clear) Urine pH (5-8) Ur Specific [place] (1.005-1.025) Urine Protein (Negative) mg/dL Urine Ketones (Negative) mg/dL Urine Blood (Negative) Urine Nitrite (Negative) Urine Bilirubin (Negative) Urine Urobilinogen (Up TO 0.2) EU/dL Ur Leukocyte Esterase (Negative) Urine RBC (0-2) HPF Urine WBC (0-5) HPF Ur Epithelial Cells (Negative) HPF Urine Crystals (Negative) HPF Urine Bacteria (Negative) HPF Urine Casts (Negative) LPF Urine Mucus (Negative) Ur Culture Indicated? Urine Glucose (Negative) mg/dL Fluid Source Cancelled Fluid Color Cancelled Fluid Clarity Cancelled Fluid WBC Cancelled Fld Polynuclear WBCs % Cancelled Fluid Mononuclear Cell Cancelled Fluid Other Cells Cancelled Vancomycin Trough Rheumatoid Factor (<12.0) IU/mL Cyclic Citrull Peptide (<5.0) U/mL ANNIE Titer ANNIE Titer 2 ANNIE Titer 3 ANNIE Interpretation (Negative) ANCA Immunofluorescen (Negative) ANCA Titer ANCA Pattern SS-A Antibody (<20.0) Units SS-B Antibody (<20.0) Units Scl-70 IgG Ab U Double Strand DNA Ab (<30.0) IU/mL Gram Stain Neutrophils Present A Adenovirus DNA (Negative) Blastomyces Ag Result Blastomyces Ag Comment ng/mL COVID-19 Source SARS-CoV-2 (PCR) (Negative) Urine Histoplasma Ag U Histoplasma Ag Index ng/mL Human Metapneumovir RNA (Negative) Influenza Type A (PCR) (Negative) Influenza Type B (PCR) (Negative) L.pneumophila Antibody (Negative) Urine Legionella Ag (Negative) M. pneumoniae Source M. pneumoniae (PCR) Parainfluenza 1 (PCR) (Negative) Parainfluenza 2 (PCR) (Negative) Parainfluenza 3 (PCR) (Negative) Parainfluenza 4 (PCR) (Negative) Aspergillus Ag (EIA) (<0.5) index RSV (PCR) (Negative) Resp Viral Spec Desc Rhinovirus (PCR) (Negative) AFB Source Cancelled AFB Culture Final Res Cancelled Aerobic Culture No Growth Fungal Specimen Source B-(1,3)-D-Glucan Quant (<60 pg/mL) pg/mL B-(1,3)-D-Glucan Qual (Negative) Fungal Culture Status Fungal Culture Final Fungal Smear Result M. Tuberculosis PCR Cancelled Path Cons Comment Cancelled AFB Smear (Ref Lab) Cancelled Add-On Test Request Ref Test Specimen Type Not Applicable Ref Report Verification Not Applicable Range/Units 11/10/21 11/10/21 11/11/21 05:39 05:39 06:10 WBC (4.4-10.8) 10^3/uL 10.65 RBC (4.36-5.78) 10^6/uL 3.64 L Hgb (13.5-17.5) g/dL 11.9 L Hct (40.0-50.0) % 36.3 L MCV (80-95) fL 99.7 H MCH (27.0-33.0) pg 32.7 MCHC (32.0-36.0) % 32.8 RDW (11.8-14.1) % 12.8 Plt Count (130-400) 10^3/uL 307 MPV (8.0-11.0) fL 9.9 Immature Gran % 13.2 Neutrophils % 69.6 Band Neutrophils % Lymphocytes % 9.3 Atypical Lymphs % Monocytes % 3.5 Eosinophils % 3.8 Basophils % 0.6 Metamyelocytes % Myelocytes % Nucleated RBC % % 0 Absolute Neutrophils (1.2-6.7) 10^3/uL 7.41 H Absolute Lymphocytes (1.2-3.4) 10^3/uL 0.99 L Absolute Monocytes (0.1-0.8) 10^3/uL 0.37 Absolute Eosinophils (0.0-0.7) 10^3/uL 0.41 Absolute Basophils (0.0-0.2) 10^3/uL 0.06 RBC Morphology See Below Basophilic Stippling Present ESR (0-20) mm/hr Sample Site ABG Sample Site ABG pH (7.35-7.45) ABG pCO2 (35-45) mmHg ABG pO2 (80-105) mmHg ABG HCO3 (22-26) mmol/L ABG Total CO2 (23-27) mmol/L ABG O2 Saturation (95-98) % ABG Base Excess (-2-3) mmol/L VBG Lactate (0.6-1.4) mmol/L Oxygen Liter Flow FiO2 FiO2 (liters per min) L Sodium (136-145) mmol/L 140 138 Potassium (3.5-5.1) mmol/L 4.1 4.5 Chloride (98-107) mmol/L 103 102 Carbon Dioxide (21.0-32.0) mmol/L 30.0 29.5 Anion Gap (3-11) mmol/L 7.0 6.5 BUN (7-18) mg/dL 28 H 39 H D Creatinine (0.70-1.30) mg/dL 1.4 H 1.8 H Estimated GFR/1.73 m2 (mL/min/1.73m2) 48.64 36.39 Glucose (74-106) mg/dL 130 H 109 H Calcium (8.5-10.1) mg/dL 8.7 8.9 Magnesium (1.8-2.4) mg/dL 1.9 Ferritin (22-322) ng/mL Total Bilirubin (0.2-1.0) mg/dL Conjugated Bilirubin (0.0-0.2) mg/dL AST (15-37) U/L ALT (16-63) U/L Alkaline Phosphatase (46-116) U/L Troponin I (<or=60) ng/L C-Reactive Protein (0.0-0.3) mg/dL NT-Pro-B Natriuret Pep (<300) pg/mL Total Protein (6.4-8.2) g/dL Albumin (3.4-5.0) g/dL Procalcitonin ng/mL TSH (0.36-3.74) uIU/mL C. albicans Allerg IgE kU/L M. racemosus Allrg IgE kU/L Urine Color (Yellow) Urine Clarity (Clear) Urine pH (5-8) Ur Specific [place] (1.005-1.025) Urine Protein (Negative) mg/dL Urine Ketones (Negative) mg/dL Urine Blood (Negative) Urine Nitrite (Negative) Urine Bilirubin (Negative) Urine Urobilinogen (Up TO 0.2) EU/dL Ur Leukocyte Esterase (Negative) Urine RBC (0-2) HPF Urine WBC (0-5) HPF Ur Epithelial Cells (Negative) HPF Urine Crystals (Negative) HPF Urine Bacteria (Negative) HPF Urine Casts (Negative) LPF Urine Mucus (Negative) Ur Culture Indicated? Urine Glucose (Negative) mg/dL Fluid Source Fluid Color Fluid Clarity Fluid WBC Fld Polynuclear WBCs % Fluid Mononuclear Cell Fluid Other Cells Vancomycin Trough Rheumatoid Factor (<12.0) IU/mL Cyclic Citrull Peptide (<5.0) U/mL ANNIE Titer ANNIE Titer 2 ANNIE Titer 3 ANNIE Interpretation (Negative) ANCA Immunofluorescen (Negative) ANCA Titer ANCA Pattern SS-A Antibody (<20.0) Units SS-B Antibody (<20.0) Units Scl-70 IgG Ab U Double Strand DNA Ab (<30.0) IU/mL Gram Stain Adenovirus DNA (Negative) Blastomyces Ag Result Blastomyces Ag Comment ng/mL COVID-19 Source SARS-CoV-2 (PCR) (Negative) Urine Histoplasma Ag U Histoplasma Ag Index ng/mL Human Metapneumovir RNA (Negative) Influenza Type A (PCR) (Negative) Influenza Type B (PCR) (Negative) L.pneumophila Antibody (Negative) Urine Legionella Ag (Negative) M. pneumoniae Source M. pneumoniae (PCR) Parainfluenza 1 (PCR) (Negative) Parainfluenza 2 (PCR) (Negative) Parainfluenza 3 (PCR) (Negative) Parainfluenza 4 (PCR) (Negative) Aspergillus Ag (EIA) (<0.5) index RSV (PCR) (Negative) Resp Viral Spec Desc Rhinovirus (PCR) (Negative) AFB Source AFB Culture Final Res Aerobic Culture Fungal Specimen Source B-(1,3)-D-Glucan Quant (<60 pg/mL) pg/mL B-(1,3)-D-Glucan Qual (Negative) Fungal Culture Status Fungal Culture Final Fungal Smear Result M. Tuberculosis PCR Path Cons Comment AFB Smear (Ref Lab) Add-On Test Request Ref Test Specimen Type Ref Report Verification Range/Units 11/11/21 11/12/21 11/12/21 06:10 06:34 06:34 WBC (4.4-10.8) 10^3/uL 10.76 10.35 RBC (4.36-5.78) 10^6/uL 3.71 L 3.68 L Hgb (13.5-17.5) g/dL 12.1 L 12.1 L Hct (40.0-50.0) % 36.7 L 36.2 L MCV (80-95) fL 98.9 H 98.4 H MCH (27.0-33.0) pg 32.6 32.9 MCHC (32.0-36.0) % 33.0 33.4 RDW (11.8-14.1) % 12.5 12.6 Plt Count (130-400) 10^3/uL 314 288 MPV (8.0-11.0) fL 9.8 9.8 Immature Gran % 11.4 0.0 Neutrophils % 70.0 62.0 Band Neutrophils % 7 Lymphocytes % 9.9 9.0 Atypical Lymphs % 2 Monocytes % 5.1 8.0 Eosinophils % 2.8 2.0 Basophils % 0.8 0.0 Metamyelocytes % 7 Myelocytes % 3 Nucleated RBC % % 0 0 Absolute Neutrophils (1.2-6.7) 10^3/uL 7.52 H 7.14 H Absolute Lymphocytes (1.2-3.4) 10^3/uL 1.07 L 1.14 L Absolute Monocytes (0.1-0.8) 10^3/uL 0.55 0.83 H Absolute Eosinophils (0.0-0.7) 10^3/uL 0.30 0.21 Absolute Basophils (0.0-0.2) 10^3/uL 0.09 0.00 RBC Morphology See Below Normal Basophilic Stippling Present ESR (0-20) mm/hr Sample Site ABG Sample Site ABG pH (7.35-7.45) ABG pCO2 (35-45) mmHg ABG pO2 (80-105) mmHg ABG HCO3 (22-26) mmol/L ABG Total CO2 (23-27) mmol/L ABG O2 Saturation (95-98) % ABG Base Excess (-2-3) mmol/L VBG Lactate (0.6-1.4) mmol/L Oxygen Liter Flow FiO2 FiO2 (liters per min) L Sodium (136-145) mmol/L 142 Potassium (3.5-5.1) mmol/L 4.4 Chloride (98-107) mmol/L 104 Carbon Dioxide (21.0-32.0) mmol/L 29.0 Anion Gap (3-11) mmol/L 9.0 BUN (7-18) mg/dL 39 H Creatinine (0.70-1.30) mg/dL 1.7 H Estimated GFR/1.73 m2 (mL/min/1.73m2) 38.88 Glucose (74-106) mg/dL 91 Calcium (8.5-10.1) mg/dL 9.0 Magnesium (1.8-2.4) mg/dL 2.0 Ferritin (22-322) ng/mL Total Bilirubin (0.2-1.0) mg/dL 0.6 Conjugated Bilirubin (0.0-0.2) mg/dL 0.1 AST (15-37) U/L 20 ALT (16-63) U/L 33 Alkaline Phosphatase (46-116) U/L 71 Troponin I (<or=60) ng/L C-Reactive Protein (0.0-0.3) mg/dL 5.88 H NT-Pro-B Natriuret Pep (<300) pg/mL Total Protein (6.4-8.2) g/dL 6.0 L Albumin (3.4-5.0) g/dL 2.5 L Procalcitonin ng/mL TSH (0.36-3.74) uIU/mL C. albicans Allerg IgE kU/L M. racemosus Allrg IgE kU/L Urine Color (Yellow) Urine Clarity (Clear) Urine pH (5-8) Ur Specific [place] (1.005-1.025) Urine Protein (Negative) mg/dL Urine Ketones (Negative) mg/dL Urine Blood (Negative) Urine Nitrite (Negative) Urine Bilirubin (Negative) Urine Urobilinogen (Up TO 0.2) EU/dL Ur Leukocyte Esterase (Negative) Urine RBC (0-2) HPF Urine WBC (0-5) HPF Ur Epithelial Cells (Negative) HPF Urine Crystals (Negative) HPF Urine Bacteria (Negative) HPF Urine Casts (Negative) LPF Urine Mucus (Negative) Ur Culture Indicated? Urine Glucose (Negative) mg/dL Fluid Source Fluid Color Fluid Clarity Fluid WBC Fld Polynuclear WBCs % Fluid Mononuclear Cell Fluid Other Cells Vancomycin Trough Rheumatoid Factor (<12.0) IU/mL Cyclic Citrull Peptide (<5.0) U/mL ANNIE Titer ANNIE Titer 2 ANNIE Titer 3 ANNIE Interpretation (Negative) ANCA Immunofluorescen (Negative) ANCA Titer ANCA Pattern SS-A Antibody (<20.0) Units SS-B Antibody (<20.0) Units Scl-70 IgG Ab U Double Strand DNA Ab (<30.0) IU/mL Gram Stain Adenovirus DNA (Negative) Blastomyces Ag Result Blastomyces Ag Comment ng/mL COVID-19 Source SARS-CoV-2 (PCR) (Negative) Urine Histoplasma Ag U Histoplasma Ag Index ng/mL Human Metapneumovir RNA (Negative) Influenza Type A (PCR) (Negative) Influenza Type B (PCR) (Negative) L.pneumophila Antibody (Negative) Urine Legionella Ag (Negative) M. pneumoniae Source M. pneumoniae (PCR) Parainfluenza 1 (PCR) (Negative) Parainfluenza 2 (PCR) (Negative) Parainfluenza 3 (PCR) (Negative) Parainfluenza 4 (PCR) (Negative) Aspergillus Ag (EIA) (<0.5) index RSV (PCR) (Negative) Resp Viral Spec Desc Rhinovirus (PCR) (Negative) AFB Source AFB Culture Final Res Aerobic Culture Fungal Specimen Source B-(1,3)-D-Glucan Quant (<60 pg/mL) pg/mL B-(1,3)-D-Glucan Qual (Negative) Fungal Culture Status Fungal Culture Final Fungal Smear Result M. Tuberculosis PCR Path Cons Comment AFB Smear (Ref Lab) Add-On Test Request Ref Test Specimen Type Ref Report Verification
--- NOTE | 2021-11-12 09:56 | PDOC.CMPRO ---
- If Service Date Differs Date of service: 11/12/21 Time of Service: 09:56 Care Management Progress Note S/O: Jarrod continues to require hospitalization. He will require 6 weeks of PO voriconazole for fungal pneumonia when discharged. The cost of that RX per [facility] is $225.65, no prior auth needed. In addition, Al continues to work with PT and c/o increased fatigue and sob with ambulation. SNF for short term rehab maybe a reasonable option and Jarrod is agreeable. [facility] will likely be able to accept Jarrod now that he doesn't need IV antifungal medications to discharge. A: Jarrod is an 81 year old male admitted to [facility] on 10/24/21 with Pneumonia, hypoxic respiratory failure P: Anticipate, Jarrod will go to a SNF for short term rehab prior to returning home. His sister will likely drive him home via private vehicle when ready vs facility transportation, if available. He will follow up with his PCP and discharge plan of care. CM will continue to follow.
[2021-11-12] MEDS: Furosemide 40 MG/4 ML VIAL IVP (10:09)
--- NOTE | 2021-11-12 10:20 | W.NUTRFU ---
Date of service: 11/12/21 Time of Service: 10:20 Nutrition Note NOTE: Al is following heart healthy diet with excellent intake. Not at nutritional risk at this time. Will continue to follow. Time Spent in Nutritional Counseling and Treatment: 5
--- NOTE | 2021-11-12 11:02 | W.PM.PROGNOT ---
Date of Service Date of service: 11/12/21 Time of Service: 11:03 Assessment and Plan Assessment and plan (1) Fungal pneumonia: Status: Acute Assessment and plan: Continue empiric micafungin. Await speciation/sensitivities from BAL. Fungitell positive. Discussed with Dr Rodrigues: we are considering switching the patient to PO voriconazole for discharge, but need to verify insurance coverage. I have sent a prescription for voriconazole 200 mg PO BID x 6 weeks to his pharmacy; care management to verify coverage. (2) Acute respiratory failure with hypoxia: Status: Acute Assessment and plan: Stable, but probably could be even better as is clinically fluid overloaded. Increase diuresis - lasix 40 mg IV x 1 now and start 40 mg IV daily in am tomorrow. Continue empiric antifungals. Encourage pulmonary toileting. (3) Polymyalgia rheumatica: Assessment and plan: Continue prednisone dose at 7.5 mg daily. (4) Hypotension: Status: Resolved Assessment and plan: Tolerating diuresis, flomax. On midodrine, which we might be able to wean off. Would hold off of re-initiation of other BP meds. (5) Acute kidney injury superimposed on chronic kidney disease: Assessment and plan: Resolved. (6) DVT prophylaxis: Status: Acute Assessment and plan: On apixiban (7) Discharge planning issues: Status: Acute Assessment and plan: DNR/DNI. Continues to require hospitalization. PT, Palliative care consulted. Voriconazole coverage being verified. Subjective Subjective Interval history since last seen: Mr Solorzano states that he does not have much pain right now, but breathing is unchanged. He is on 2L of O2 by ME. Denies dizziness, chest pain, shortness of breath at rest, nausea. Exam Narrative Exam Narrative: General: elderly male who is looks better than yesterday, A&Ox3 HEENT: EOMI, MMM Heart: RRR w/ extra beats, no m/r/g Lungs: worsening rales B Abdomen: soft,nontender, nondistended Extremities: +1 BLE edema while in TEDS Objective Last Vital Signs Temp 36.3 C L 11/12/21 07:45 Pulse 98 H 11/12/21 07:45 Resp 24 11/12/21 07:45 BP 128/77 11/12/21 07:45 Pulse Ox 96 11/12/21 10:25 Laboratory Results - last 24 hr 11/09/21 11/12/21 11/12/21 12:30 06:34 06:34 WBC 10.35 RBC 3.68 L Hgb 12.1 L Hct 36.2 L MCV 98.4 H MCH 32.9 MCHC 33.4 RDW 12.6 Plt Count 288 MPV 9.8 Immature Gran % 0.0 Neutrophils % 62.0 Band Neutrophils % 7 Lymphocytes % 9.0 Atypical Lymphs % 2 Monocytes % 8.0 Eosinophils % 2.0 Basophils % 0.0 Metamyelocytes % 7 Myelocytes % 3 Nucleated RBC % 0 Absolute Neutrophils 7.14 H Absolute Lymphocytes 1.14 L Absolute Monocytes 0.83 H Absolute Eosinophils 0.21 Absolute Basophils 0.00 RBC Morphology Normal Sodium 142 Potassium 4.4 Chloride 104 Carbon Dioxide 29.0 Anion Gap 9.0 BUN 39 H Creatinine 1.7 H Estimated GFR/1.73 m2 38.88 Glucose 91 Calcium 9.0 Magnesium 2.0 Total Bilirubin 0.6 Conjugated Bilirubin 0.1 AST 20 ALT 33 Alkaline Phosphatase 71 C-Reactive Protein 5.88 H Total Protein 6.0 L Albumin 2.5 L Gram Stain Neutrophils Present A Aerobic Culture No Growth Ref Test Specimen Type Not Applicable Ref Report Verification Not Applicable PAWSS Have you Been Recently Intoxicated or Drunk Within the Last 30 days?: No Have you Ever Experienced Previous Episodes of Alcohol Withdrawal?: No Have you ever Experienced Withdrawal Seizures?: No Have you ever Experienced Delirium Tremens(DT)s?: No Have you ever undergone Alcohol Rehabilitation Treatment (i.e, inpt ot outpatient treatment programs)?: No Have you ever Experienced Blackouts?: No Have you ever Combined Alcohol with other Downers within the last 90 days?: No Have you ever Combined Alcohol with any other Substance of Abuse during the last 90 days?: No Positive Blood Alcohol level on Presentation? [PCS.BAL]: No Evidence of Increased Autonomic Activity (i.e. HR>120, tremor, sweating, agitation, nausea)?: No Result: 0
--- NOTE | 2021-11-12 11:34 | PT.INTREAT ---
Date of service: 11/12/21 Time of Service: 09:57 PT Notes Visit Reasons: Pneumonia Inpatient Physical Therapy Treatment Note [facility] Date: 11/12/2021 PRECAUTIONS: Fall, Activity as tolerated SUBJECTIVE: Al is pleasant and agreeable to participating in PT. He reports feelings of defeat and that he is struggling with being hospitalized for so long. He reports that he is feeling neither better nor worse today. OBJECTIVE: PAIN: No c/o pain BED MOBILITY/TRANSFERS Sit-stand: S Stand-sit: S GAIT Assistive Device: FWW Weight bearing: Full Assist: SBA Distance: 20' x2 in a.m.' 300' in p.m. Deviation: Standing rest x1, c/o increased fatigue and SOB VITALS: SaO2: 88-90% on 4L O2 via NC with gait training THEREX: Patient was instructed in several seated LE strengthening exercises, as per flow sheet. He requires seated rests between exercises due to mild SOB. In afternoon, reviewed and instructed patient in several independent exercises to be completed 3x/day. ASSESSMENT: Patient tolerated session with complaint of increased fatigue and SOB with activity. He demonstrates good strength, although general deconditioning and limited endurance, likely due to illness and length of hospitalization. PLAN: Continue with general conditioning for improved activity tolerance, as indicated. TREATMENT CODE/TIME: Session 1: 16 minutes; 99782 (09:57) Session 2: 36 minutes; [id number] x2 (14:18)
[2021-11-12 16:03] LABS: Misc Referral (MAYO) See Comments
[2021-11-12] MEDS: Lidocaine 5% Patch 1 PATCH TP (17:55)
[2021-11-12] MEDS: Tamsulosin 0.4 MG CAPCR 0.8 MG PO (21:04)
[2021-11-12] MEDS: rOPINIRole 1 MG TAB 2 MG PO (21:04)
[2021-11-13] VITALS (9 sets, daily range): BP systolic 120–127; BP diastolic 74–83; PULSE 87–95; RESP 2–24; TEMP 36.3–36.8; O2SAT 92–97
[2021-11-13] MEDS: Levothyroxine 75 MCG TAB PO (06:41)
[2021-11-13] MEDS: Lidocaine Patch Removal 1 EACH TD (06:41)
[2021-11-13] MEDS: Pantoprazole 40 MG TABCR PO (06:41)
[2021-11-13 07:04] LABS: HCT 38.9 % (40.0-50.0); HGB 12.6 g/dL (13.5-17.5); MCH 32.3 pg (27.0-33.0); MCHC 32.4 % (32.0-36.0); MCV 99.7 fL (80-95); MPV 9.7 fL (8.0-11.0); Nucleated RBC 0 %; Platelet Count 306 10^3/uL (130-400); RDW 12.5 % (11.8-14.1); RDW-SD 45.6 fL; WBC 11.82 10^3/uL (4.4-10.8)
--- NOTE | 2021-11-13 07:08 | PGE_ITS ---
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 He has been treated for a recurrent sinusitis and received extended courses of several antibiotics for this as well as a pneumonia. His Fungitell return very positive and subsequent testing was also positive and so steroids were discontinued. He also grew yeast that was non crypto and not dimorphic on culture. His silver stain was negative and there were no malignant cells seen on path. I have been empirically treating with micafungin and Bactrim. Now that the silver stain is negative, we can discontinue the Bactrim. The bacterial stain and culture is negative. The preliminary fungal and AFB stain were also negative. The cell diff was relatively normal. His sputum does show yeast that is not dimorphic and not cryptococcus. 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 Voriconazole will cover both of these fungi. Fungal Pneumonia - Fungitell returned very positive and repeat is also very positive- repeat pending - Aspergillus Ag negative - repeat pending - BAL cultures with no fungi, bacteria or AFB organisms seen - BAL cell diff with 11 lymphocytes - normal - fungal sputum finds yeast - non cryypto and non dimorphic - autoimmune panel negative - urine histo, urine blasto negative - repeat blood cultures no growth to date - continue Mucinex, VibraPEP, prn albuterol neb - recommend switching micafungin 100mg daily to vori as below: - voriconazole (200mg bid for 6-12 weeks) - will need LFT's weekly for the first month then monthly - will need a voriconazole trough 5-7 days after initiation - can discontinue the Bactrim - silver stain is negative - I will set up follow up for him for a few weeks Sinusitis - has been treated by now with all the antibiotics he has been on. 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 Yesterday he did a nice walk and only required 4LPM and his O2 sats were mid 90's. He also had a repeat chest CT performed which found marked improvement since his last film. Overall he is improving. Exam Narrative Exam Narrative: Gen: NAD, normal respiratory effort, well-nourished HENT: PERRL, nasal turbinates normal without erythema or inflammation, moist oral mucosa, Mallampati 2, No LAD or JVD Chest: No respiratory distress, normal appearance of chest, rales diffusely, no wheezing Heart: regular rate and rhythym, no murmurs, rubs or gallops Abdomen: Non-distended, soft, non tender Extremities: No clubbing, cyanosis, rashes. LE edema Neuro: AAOx3 , non focal Psych: cooperative, appropriate mental affect Objective Last Vital Signs Temp 36.5 C 11/13/21 03:44 Pulse 94 H 11/13/21 03:44 Resp 18 11/13/21 03:44 BP 122/75 11/13/21 03:44 Pulse Ox 96 11/13/21 03:44 Laboratory Results - last 24 hr 11/09/21 11/09/21 11/12/21 12:30 12:30 06:34 WBC RBC Hgb Hct MCV MCH MCHC RDW Plt Count MPV Immature Gran % Neutrophils % Band Neutrophils % Lymphocytes % Atypical Lymphs % Monocytes % Eosinophils % Basophils % Metamyelocytes % Myelocytes % Nucleated RBC % Absolute Neutrophils Absolute Lymphocytes Absolute Monocytes Absolute Eosinophils Absolute Basophils RBC Morphology Sodium 142 Potassium 4.4 Chloride 104 Carbon Dioxide 29.0 Anion Gap 9.0 BUN 39 H Creatinine 1.7 H Estimated GFR/1.73 m2 38.88 Glucose 91 Calcium 9.0 Magnesium 2.0 Total Bilirubin 0.6 Conjugated Bilirubin 0.1 AST 20 ALT 33 Alkaline Phosphatase 71 C-Reactive Protein 5.88 H Total Protein 6.0 L Albumin 2.5 L Gram Stain Neutrophils Present A Aerobic Culture No Growth Miscellaneous Test See Comments Ref Test Specimen Type Not Applicable Ref Report Verification Not Applicable 11/12/21 06:34 WBC 10.35 RBC 3.68 L Hgb 12.1 L Hct 36.2 L MCV 98.4 H MCH 32.9 MCHC 33.4 RDW 12.6 Plt Count 288 MPV 9.8 Immature Gran % 0.0 Neutrophils % 62.0 Band Neutrophils % 7 Lymphocytes % 9.0 Atypical Lymphs % 2 Monocytes % 8.0 Eosinophils % 2.0 Basophils % 0.0 Metamyelocytes % 7 Myelocytes % 3 Nucleated RBC % 0 Absolute Neutrophils 7.14 H Absolute Lymphocytes 1.14 L Absolute Monocytes 0.83 H Absolute Eosinophils 0.21 Absolute Basophils 0.00 RBC Morphology Normal Sodium Potassium Chloride Carbon Dioxide Anion Gap BUN Creatinine Estimated GFR/1.73 m2 Glucose Calcium Magnesium Total Bilirubin Conjugated Bilirubin AST ALT Alkaline Phosphatase C-Reactive Protein Total Protein Albumin Gram Stain Aerobic Culture Miscellaneous Test Ref Test Specimen Type Ref Report Verification Results Medications Medications: Active Medications Generic Name Dose Route Start Last Admin Trade Name Freq PRN Reason Stop Dose Admin Acetaminophen 0 mg 10/24/21 18:34 11/10/21 21:48 Acetaminophen 325 Mg Tab PO 650 mg Q4H PRN PRN Administration Acetaminophen/Aspirin/Caffeine 2 each 11/02/21 17:01 Acetaminophen 250 Mg/Aspirin 250 Mg/Caffeine 65 Mg Tab PO Q6H PRN PRN Al Hydrox/Mg Hydrox/Simethicone 30 ml 10/28/21 06:00 10/28/21 06:21 Mylanta Suspension 30 Ml Cup PO 30 ml Q4H PRN PRN Administration Albuterol Sulfate 2.5 mg 10/24/21 18:34 11/02/21 06:38 Albuterol 2.5 Mg/3 Ml Inh Soln Vial UPD 2.5 mg Q2H PRN PRN Administration Albuterol/Ipratropium 3 ml 11/09/21 13:15 Albuterol/Ipratropium 3 Ml Upd Vial UPD Q2H PRN PRN for SOB, wheezing, or cough Albuterol/Ipratropium 3 ml 11/09/21 20:00 11/12/21 21:03 Albuterol/Ipratropium 3 Ml Upd Vial UPD 3 ml TID DEVENDRA Administration Apixaban 5 mg 10/24/21 20:00 11/12/21 21:03 Apixaban 5 Mg Tab PO 5 mg BID DEVENDRA Administration Ascorbic Acid 500 mg 11/02/21 20:00 11/12/21 21:02 Ascorbic Acid 500 Mg Tab PO 500 mg BID DEVENDRA Administration Cetirizine HCl 5 mg 10/28/21 12:30 11/12/21 07:48 Cetirizine 10 Mg Tab PO 5 mg DAILY DEVENDAR Administration Cholecalciferol 2,000 units 11/03/21 08:30 11/12/21 07:48 Cholecalciferol (Vitamin D3) 1,000 Unit Tab PO 2,000 units DAILY DEVENDRA Administration Dimethicone/Zinc Oxide 0 gm 10/24/21 18:34 Christina Protect Cream 142 Gm Tube TP PRN PRN Docusate Sodium 100 mg 11/04/21 20:00 11/12/21 21:02 Docusate Sodium 100 Mg Cap PO 100 mg BID DEVENDRA Administration Fentanyl 12 mcg 11/12/21 08:00 11/12/21 07:56 Fentanyl 12 Mcg Patch TD 12 mcg Q72H DEVENDRA Administration Finasteride 5 mg 11/03/21 15:10 11/12/21 07:48 Finasteride 5 Mg Tab PO 5 mg DAILY DEVENDRA Administration Fluticasone Propionate 16 gm 10/25/21 08:30 11/12/21 21:03 Fluticasone Nasal Archer 16 Gm Btl NS 1 sprays BID DEVENDRA Administration Furosemide 40 mg 11/13/21 08:30 Furosemide 40 Mg/4 Ml Vial IVP DAILY DEVENDRA Guaifenesin 1,200 mg 10/25/21 08:30 11/12/21 21:02 Guaifenesin 600 Mg Tabcr PO 1,200 mg BID DEVENDRA Administration Micafungin Sodium 100 mg/ 100 mls @ 100 mls/hr 11/07/21 14:00 11/12/21 14:20 Sodium Chloride IVPB 100 mls/hr Q24H DEVENDRA Administration Ipratropium [place] 0 ml 10/25/21 08:30 11/12/21 21:03 Ipratropium 0.03% 30 Ml Btl NS 1 sprays BID DEVENDRA Administration Lactobacillus Acidophilus/Casei 1 cap 11/03/21 08:30 11/12/21 07:47 L. Acidophilus, Casei, Rhamnosus Cap PO 1 cap DAILY DEVENDRA Administration Levothyroxine Sodium 75 mcg 10/26/21 06:00 11/13/21 06:41 Levothyroxine 75 Mcg Tab PO 75 mcg DAILY@0600 DEVENDRA Administration Lidocaine 1 patch 11/01/21 18:00 11/12/21 17:55 Lidocaine 5% Patch TP 1 patch Q24H DEVENDRA Administration Midodrine 2.5 mg 11/02/21 15:00 11/12/21 21:02 Midodrine 2.5 Mg Tab PO 2.5 mg TID DEVENDRA Administration Miscellaneous 1 each 11/02/21 06:00 11/13/21 06:41 Lidocaine Patch Removal TD 1 each Q24H DEVENDRA Administration Montelukast Sodium 10 mg 10/25/21 08:30 11/12/21 07:48 Montelukast 10 Mg Tab PO 10 mg DAILY DEVENDRA Administration Nystatin 0 gm 11/05/21 20:00 11/12/21 21:04 Nystatin Powder 60 Gm Jar TP 1 applic BID DEVENDRA Administration Ondansetron HCl 4 mg 10/28/21 12:42 Ondansetron 4 Mg/2 Ml Vial IVP Q4H PRN PRN Pantoprazole Sodium 40 mg 10/26/21 07:30 11/13/21 06:41 Pantoprazole 40 Mg Tabcr PO 40 mg DAILY@0730 DEVENDRA Administration Polyethylene Glycol 17 gm 11/04/21 14:45 11/12/21 07:48 Polyethylene Glycol 3350 17 Gm Packet PO 17 gm DAILY DEVENDRA Administration Potassium Chloride 20 meq 11/06/21 11:05 11/12/21 21:03 Potassium Chloride 20 Meq Tabcr PO 20 meq BID DEVENDRA Administration Prednisone 7.5 mg 11/11/21 08:30 11/12/21 07:47 Prednisone 5 Mg Tab PO 7.5 mg DAILY DEVENDRA Administration Ropinirole HCl 2 mg 10/24/21 22:00 11/12/21 21:04 Ropinirole 1 Mg Tab PO 2 mg HS DEVENDRA Administration Sertraline HCl 25 mg 10/25/21 08:30 11/12/21 07:48 Sertraline 25 Mg Tab PO 25 mg DAILY DEVENDRA Administration Sodium Chloride 0 ml 10/24/21 20:59 11/11/21 21:25 Normal Saline Flush 10 Ml Syr IVP 10 ml PRN PRN Administration Tamsulosin HCl 0.8 mg 11/03/21 22:00 11/12/21 21:04 Tamsulosin 0.4 Mg Capcr PO 0.8 mg HS DEVENDRA Administration Trimethoprim/Sulfamethoxazole 1 tab 11/07/21 08:30 11/12/21 07:48 Sulfameth/Trimeth Reg Str Tab PO 1 tab DAILY DEVENDRA Administration Allergies Sulfa (Sulfonamide Antibiotics) Adverse Reaction (Intermediate, Verified 10/24/21 16:31) Its been along time cat dander Adverse Reaction (Mild, Verified 10/24/21 16:31) penicillin V Adverse Reaction (Mild, Verified 10/24/21 16:31) nausea salicylates Adverse Reaction (Mild, Verified 10/24/21 16:31) up set stomach Labs Result Diagrams: 11/13/21 06:21 11/13/21 06:21 Labs: 11/07/21 12:55 Blood Blood Culture - Final NO GROWTH 120 HOURS 11/07/21 12:45 Blood Blood Culture - Final NO GROWTH 120 HOURS 11/02/21 15:30 Sputum Sputum Culture - Final Gram Negative Shannan,Mixed Normal Shannan 11/02/21 15:30 Sputum Gram Stain - Final 10/29/21 23:00 Blood Blood Culture - Final NO GROWTH 120 HOURS 10/29/21 22:45 Blood Blood Culture - Final NO GROWTH 120 HOURS 10/28/21 14:19 Blood Blood Culture - Final NO GROWTH 120 HOURS 10/28/21 14:19 Blood Blood Culture - Final NO GROWTH 120 HOURS 10/30/21 10:17 Nasopharynx Influenza Types A,B Antigen - Final 10/24/21 17:39 Blood Blood Culture - Final NO GROWTH 120 HOURS 10/24/21 17:30 Blood Blood Culture - Final NO GROWTH 120 HOURS 10/24/21 18:55 Nose MRSA Screen - Final Laboratory Tests Range/Units 10/24/21 10/24/21 10/24/21 16:55 16:55 16:55 WBC (4.4-10.8) 10^3/uL 11.13 H RBC (4.36-5.78) 10^6/uL 3.91 L Hgb (13.5-17.5) g/dL 13.1 L Hct (40.0-50.0) % 39.0 L MCV (80-95) fL 99.7 H MCH (27.0-33.0) pg 33.5 H MCHC (32.0-36.0) % 33.6 RDW (11.8-14.1) % 12.4 Plt Count (130-400) 10^3/uL 133 D MPV (8.0-11.0) fL 10.0 Immature Gran % 2.3 Neutrophils % 89.6 Band Neutrophils % Lymphocytes % 2.8 Atypical Lymphs % Monocytes % 4.9 Eosinophils % 0.2 Basophils % 0.2 Metamyelocytes % Myelocytes % Nucleated RBC % % 0 Absolute Neutrophils (1.2-6.7) 10^3/uL 9.97 H Absolute Lymphocytes (1.2-3.4) 10^3/uL 0.31 L Absolute Monocytes (0.1-0.8) 10^3/uL 0.55 Absolute Eosinophils (0.0-0.7) 10^3/uL 0.02 Absolute Basophils (0.0-0.2) 10^3/uL 0.02 RBC Morphology Basophilic Stippling ESR (0-20) mm/hr Sample Site ABG Sample Site ABG pH (7.35-7.45) ABG pCO2 (35-45) mmHg ABG pO2 (80-105) mmHg ABG HCO3 (22-26) mmol/L ABG Total CO2 (23-27) mmol/L ABG O2 Saturation (95-98) % ABG Base Excess (-2-3) mmol/L VBG Lactate (0.6-1.4) mmol/L Oxygen Liter Flow FiO2 FiO2 (liters per min) L Sodium (136-145) mmol/L 135 L Potassium (3.5-5.1) mmol/L 4.1 Chloride (98-107) mmol/L 99 Carbon Dioxide (21.0-32.0) mmol/L 31.1 Anion Gap (3-11) mmol/L 4.9 BUN (7-18) mg/dL 30 H Creatinine (0.70-1.30) mg/dL 1.7 H Estimated GFR/1.73 m2 (mL/min/1.73m2) 38.88 Glucose (74-106) mg/dL 107 H Calcium (8.5-10.1) mg/dL 8.2 L Magnesium (1.8-2.4) mg/dL 1.8 Ferritin (22-322) ng/mL Total Bilirubin (0.2-1.0) mg/dL 0.8 Conjugated Bilirubin (0.0-0.2) mg/dL AST (15-37) U/L 20 ALT (16-63) U/L 18 Alkaline Phosphatase (46-116) U/L 47 Troponin I (<or=60) ng/L < 50 C-Reactive Protein (0.0-0.3) mg/dL NT-Pro-B Natriuret Pep (<300) pg/mL 658 H Total Protein (6.4-8.2) g/dL 5.9 L Albumin (3.4-5.0) g/dL 3.0 L Procalcitonin ng/mL TSH (0.36-3.74) uIU/mL C. albicans Allerg IgE kU/L M. racemosus Allrg IgE kU/L Urine Color (Yellow) Urine Clarity (Clear) Urine pH (5-8) Ur Specific [place] (1.005-1.025) Urine Protein (Negative) mg/dL Urine Ketones (Negative) mg/dL Urine Blood (Negative) Urine Nitrite (Negative) Urine Bilirubin (Negative) Urine Urobilinogen (Up TO 0.2) EU/dL Ur Leukocyte Esterase (Negative) Urine RBC (0-2) HPF Urine WBC (0-5) HPF Ur Epithelial Cells (Negative) HPF Urine Crystals (Negative) HPF Urine Bacteria (Negative) HPF Urine Casts (Negative) LPF Urine Mucus (Negative) Ur Culture Indicated? Urine Glucose (Negative) mg/dL Fluid Source Fluid Color Fluid Clarity Fluid WBC Fld Polynuclear WBCs % Fluid Mononuclear Cell Fluid Other Cells Vancomycin Trough Rheumatoid Factor (<12.0) IU/mL Cyclic Citrull Peptide (<5.0) U/mL ANNIE Titer ANNIE Titer 2 ANNIE Titer 3 ANNIE Interpretation (Negative) ANCA Immunofluorescen (Negative) ANCA Titer ANCA Pattern SS-A Antibody (<20.0) Units SS-B Antibody (<20.0) Units Scl-70 IgG Ab U Double Strand DNA Ab (<30.0) IU/mL Gram Stain Adenovirus DNA (Negative) Blastomyces Ag Result Blastomyces Ag Comment ng/mL COVID-19 Source Nasal/Nares SARS-CoV-2 (PCR) (Negative) Negative Urine Histoplasma Ag U Histoplasma Ag Index ng/mL Human Metapneumovir RNA (Negative) Influenza Type A (PCR) (Negative) Negative Influenza Type B (PCR) (Negative) Negative L.pneumophila Antibody (Negative) Urine Legionella Ag (Negative) M. pneumoniae Source M. pneumoniae (PCR) Parainfluenza 1 (PCR) (Negative) Parainfluenza 2 (PCR) (Negative) Parainfluenza 3 (PCR) (Negative) Parainfluenza 4 (PCR) (Negative) Aspergillus Ag (EIA) (<0.5) index RSV (PCR) (Negative) Negative Resp Viral Spec Desc Rhinovirus (PCR) (Negative) AFB Source AFB Culture Final Res Aerobic Culture Fungal Specimen Source B-(1,3)-D-Glucan Quant (<60 pg/mL) pg/mL B-(1,3)-D-Glucan Qual (Negative) Fungal Culture Status Fungal Culture Final Fungal Smear Result M. Tuberculosis PCR Path Cons Comment AFB Smear (Ref Lab) Add-On Test Request Miscellaneous Test Ref Test Specimen Type Ref Report Verification Range/Units 10/24/21 10/24/21 10/24/21 17:12 17:12 17:20 WBC (4.4-10.8) 10^3/uL RBC (4.36-5.78) 10^6/uL Hgb (13.5-17.5) g/dL Hct (40.0-50.0) % MCV (80-95) fL MCH (27.0-33.0) pg MCHC (32.0-36.0) % RDW (11.8-14.1) % Plt Count (130-400) 10^3/uL MPV (8.0-11.0) fL Immature Gran % Neutrophils % Band Neutrophils % Lymphocytes % Atypical Lymphs % Monocytes % Eosinophils % Basophils % Metamyelocytes % Myelocytes % Nucleated RBC % % Absolute Neutrophils (1.2-6.7) 10^3/uL Absolute Lymphocytes (1.2-3.4) 10^3/uL Absolute Monocytes (0.1-0.8) 10^3/uL Absolute Eosinophils (0.0-0.7) 10^3/uL Absolute Basophils (0.0-0.2) 10^3/uL RBC Morphology Basophilic Stippling ESR (0-20) mm/hr Sample Site ABG Sample Site ABG pH (7.35-7.45) ABG pCO2 (35-45) mmHg ABG pO2 (80-105) mmHg ABG HCO3 (22-26) mmol/L ABG Total CO2 (23-27) mmol/L ABG O2 Saturation (95-98) % ABG Base Excess (-2-3) mmol/L VBG Lactate (0.6-1.4) mmol/L 2.2 H* Oxygen Liter Flow FiO2 FiO2 (liters per min) L Sodium (136-145) mmol/L Potassium (3.5-5.1) mmol/L Chloride (98-107) mmol/L Carbon Dioxide (21.0-32.0) mmol/L Anion Gap (3-11) mmol/L BUN (7-18) mg/dL Creatinine (0.70-1.30) mg/dL Estimated GFR/1.73 m2 (mL/min/1.73m2) Glucose (74-106) mg/dL Calcium (8.5-10.1) mg/dL Magnesium (1.8-2.4) mg/dL Ferritin (22-322) ng/mL Total Bilirubin (0.2-1.0) mg/dL Conjugated Bilirubin (0.0-0.2) mg/dL AST (15-37) U/L ALT (16-63) U/L Alkaline Phosphatase (46-116) U/L Troponin I (<or=60) ng/L C-Reactive Protein (0.0-0.3) mg/dL NT-Pro-B Natriuret Pep (<300) pg/mL Total Protein (6.4-8.2) g/dL Albumin (3.4-5.0) g/dL Procalcitonin ng/mL 0.2 TSH (0.36-3.74) uIU/mL C. albicans Allerg IgE kU/L M. racemosus Allrg IgE kU/L Urine Color (Yellow) Yellow Urine Clarity (Clear) Clear Urine pH (5-8) 6.0 Ur Specific [place] (1.005-1.025) 1.015 Urine Protein (Negative) mg/dL Negative Urine Ketones (Negative) mg/dL Negative Urine Blood (Negative) Moderate H Urine Nitrite (Negative) Negative Urine Bilirubin (Negative) Negative Urine Urobilinogen (Up TO 0.2) EU/dL 0.2 Ur Leukocyte Esterase (Negative) Negative Urine RBC (0-2) HPF >50 H Urine WBC (0-5) HPF 0-2 Ur Epithelial Cells (Negative) HPF Few Urine Crystals (Negative) HPF Negative Urine Bacteria (Negative) HPF Negative Urine Casts (Negative) LPF Negative Urine Mucus (Negative) Trace Ur Culture Indicated? No Urine Glucose (Negative) mg/dL Negative Fluid Source Fluid Color Fluid Clarity Fluid WBC Fld Polynuclear WBCs % Fluid Mononuclear Cell Fluid Other Cells Vancomycin Trough Rheumatoid Factor (<12.0) IU/mL Cyclic Citrull Peptide (<5.0) U/mL ANNIE Titer ANNIE Titer 2 ANNIE Titer 3 ANNIE Interpretation (Negative) ANCA Immunofluorescen (Negative) ANCA Titer ANCA Pattern SS-A Antibody (<20.0) Units SS-B Antibody (<20.0) Units Scl-70 IgG Ab U Double Strand DNA Ab (<30.0) IU/mL Gram Stain Adenovirus DNA (Negative) Blastomyces Ag Result Blastomyces Ag Comment ng/mL COVID-19 Source SARS-CoV-2 (PCR) (Negative) Urine Histoplasma Ag U Histoplasma Ag Index ng/mL Human Metapneumovir RNA (Negative) Influenza Type A (PCR) (Negative) Influenza Type B (PCR) (Negative) L.pneumophila Antibody (Negative) Urine Legionella Ag (Negative) M. pneumoniae Source M. pneumoniae (PCR) Parainfluenza 1 (PCR) (Negative) Parainfluenza 2 (PCR) (Negative) Parainfluenza 3 (PCR) (Negative) Parainfluenza 4 (PCR) (Negative) Aspergillus Ag (EIA) (<0.5) index RSV (PCR) (Negative) Resp Viral Spec Desc Rhinovirus (PCR) (Negative) AFB Source AFB Culture Final Res Aerobic Culture Fungal Specimen Source B-(1,3)-D-Glucan Quant (<60 pg/mL) pg/mL B-(1,3)-D-Glucan Qual (Negative) Fungal Culture Status Fungal Culture Final Fungal Smear Result M. Tuberculosis PCR Path Cons Comment AFB Smear (Ref Lab) Add-On Test Request Miscellaneous Test Ref Test Specimen Type Ref Report Verification Range/Units 10/25/21 10/25/21 10/26/21 06:45 06:45 06:26 WBC (4.4-10.8) 10^3/uL 8.35 RBC (4.36-5.78) 10^6/uL 3.56 L Hgb (13.5-17.5) g/dL 11.9 L Hct (40.0-50.0) % 36.0 L MCV (80-95) fL 101.1 H MCH (27.0-33.0) pg 33.4 H MCHC (32.0-36.0) % 33.1 RDW (11.8-14.1) % 12.4 Plt Count (130-400) 10^3/uL 104 L MPV (8.0-11.0) fL 10.3 Immature Gran % 2.3 Neutrophils % 80.6 Band Neutrophils % Lymphocytes % 8.5 Atypical Lymphs % Monocytes % 4.8 Eosinophils % 3.4 Basophils % 0.4 Metamyelocytes % Myelocytes % Nucleated RBC % % 0 Absolute Neutrophils (1.2-6.7) 10^3/uL 6.74 H Absolute Lymphocytes (1.2-3.4) 10^3/uL 0.71 L Absolute Monocytes (0.1-0.8) 10^3/uL 0.40 Absolute Eosinophils (0.0-0.7) 10^3/uL 0.28 Absolute Basophils (0.0-0.2) 10^3/uL 0.03 RBC Morphology Basophilic Stippling ESR (0-20) mm/hr Sample Site ABG Sample Site ABG pH (7.35-7.45) ABG pCO2 (35-45) mmHg ABG pO2 (80-105) mmHg ABG HCO3 (22-26) mmol/L ABG Total CO2 (23-27) mmol/L ABG O2 Saturation (95-98) % ABG Base Excess (-2-3) mmol/L VBG Lactate (0.6-1.4) mmol/L Oxygen Liter Flow FiO2 FiO2 (liters per min) L Sodium (136-145) mmol/L 137 138 Potassium (3.5-5.1) mmol/L 3.1 L D 3.1 L Chloride (98-107) mmol/L 101 102 Carbon Dioxide (21.0-32.0) mmol/L 29.7 26.3 Anion Gap (3-11) mmol/L 6.3 9.7 BUN (7-18) mg/dL 28 H 28 H Creatinine (0.70-1.30) mg/dL 1.6 H 1.6 H Estimated GFR/1.73 m2 (mL/min/1.73m2) 41.69 41.69 Glucose (74-106) mg/dL 84 134 H Calcium (8.5-10.1) mg/dL 8.1 L 8.0 L Magnesium (1.8-2.4) mg/dL Ferritin (22-322) ng/mL Total Bilirubin (0.2-1.0) mg/dL Conjugated Bilirubin (0.0-0.2) mg/dL AST (15-37) U/L ALT (16-63) U/L Alkaline Phosphatase (46-116) U/L Troponin I (<or=60) ng/L C-Reactive Protein (0.0-0.3) mg/dL NT-Pro-B Natriuret Pep (<300) pg/mL Total Protein (6.4-8.2) g/dL Albumin (3.4-5.0) g/dL Procalcitonin ng/mL TSH (0.36-3.74) uIU/mL C. albicans Allerg IgE kU/L M. racemosus Allrg IgE kU/L Urine Color (Yellow) Urine Clarity (Clear) Urine pH (5-8) Ur Specific [place] (1.005-1.025) Urine Protein (Negative) mg/dL Urine Ketones (Negative) mg/dL Urine Blood (Negative) Urine Nitrite (Negative) Urine Bilirubin (Negative) Urine Urobilinogen (Up TO 0.2) EU/dL Ur Leukocyte Esterase (Negative) Urine RBC (0-2) HPF Urine WBC (0-5) HPF Ur Epithelial Cells (Negative) HPF Urine Crystals (Negative) HPF Urine Bacteria (Negative) HPF Urine Casts (Negative) LPF Urine Mucus (Negative) Ur Culture Indicated? Urine Glucose (Negative) mg/dL Fluid Source Fluid Color Fluid Clarity Fluid WBC Fld Polynuclear WBCs % Fluid Mononuclear Cell Fluid Other Cells Vancomycin Trough Rheumatoid Factor (<12.0) IU/mL Cyclic Citrull Peptide (<5.0) U/mL ANNIE Titer ANNIE Titer 2 ANNIE Titer 3 ANNIE Interpretation (Negative) ANCA Immunofluorescen (Negative) ANCA Titer ANCA Pattern SS-A Antibody (<20.0) Units SS-B Antibody (<20.0) Units Scl-70 IgG Ab U Double Strand DNA Ab (<30.0) IU/mL Gram Stain Adenovirus DNA (Negative) Blastomyces Ag Result Blastomyces Ag Comment ng/mL COVID-19 Source SARS-CoV-2 (PCR) (Negative) Urine Histoplasma Ag U Histoplasma Ag Index ng/mL Human Metapneumovir RNA (Negative) Influenza Type A (PCR) (Negative) Influenza Type B (PCR) (Negative) L.pneumophila Antibody (Negative) Urine Legionella Ag (Negative) M. pneumoniae Source M. pneumoniae (PCR) Parainfluenza 1 (PCR) (Negative) Parainfluenza 2 (PCR) (Negative) Parainfluenza 3 (PCR) (Negative) Parainfluenza 4 (PCR) (Negative) Aspergillus Ag (EIA) (<0.5) index RSV (PCR) (Negative) Resp Viral Spec Desc Rhinovirus (PCR) (Negative) AFB Source AFB Culture Final Res Aerobic Culture Fungal Specimen Source B-(1,3)-D-Glucan Quant (<60 pg/mL) pg/mL B-(1,3)-D-Glucan Qual (Negative) Fungal Culture Status Fungal Culture Final Fungal Smear Result M. Tuberculosis PCR Path Cons Comment AFB Smear (Ref Lab) Add-On Test Request Miscellaneous Test Ref Test Specimen Type Ref Report Verification Range/Units 10/26/21 10/26/21 10/26/21 06:26 06:26 06:26 WBC (4.4-10.8) 10^3/uL 9.40 RBC (4.36-5.78) 10^6/uL 3.46 L Hgb (13.5-17.5) g/dL 11.5 L Hct (40.0-50.0) % 34.7 L MCV (80-95) fL 100.3 H MCH (27.0-33.0) pg 33.2 H MCHC (32.0-36.0) % 33.1 RDW (11.8-14.1) % 12.5 Plt Count (130-400) 10^3/uL 116 L MPV (8.0-11.0) fL 10.5 Immature Gran % 1.9 Neutrophils % 90.0 Band Neutrophils % Lymphocytes % 4.4 Atypical Lymphs % Monocytes % 3.5 Eosinophils % 0.1 Basophils % 0.1 Metamyelocytes % Myelocytes % Nucleated RBC % % 0 Absolute Neutrophils (1.2-6.7) 10^3/uL 8.46 H Absolute Lymphocytes (1.2-3.4) 10^3/uL 0.41 L Absolute Monocytes (0.1-0.8) 10^3/uL 0.33 Absolute Eosinophils (0.0-0.7) 10^3/uL 0.01 Absolute Basophils (0.0-0.2) 10^3/uL 0.01 RBC Morphology Basophilic Stippling ESR (0-20) mm/hr Sample Site ABG Sample Site ABG pH (7.35-7.45) ABG pCO2 (35-45) mmHg ABG pO2 (80-105) mmHg ABG HCO3 (22-26) mmol/L ABG Total CO2 (23-27) mmol/L ABG O2 Saturation (95-98) % ABG Base Excess (-2-3) mmol/L VBG Lactate (0.6-1.4) mmol/L Oxygen Liter Flow FiO2 FiO2 (liters per min) L Sodium (136-145) mmol/L Potassium (3.5-5.1) mmol/L Chloride (98-107) mmol/L Carbon Dioxide (21.0-32.0) mmol/L Anion Gap (3-11) mmol/L BUN (7-18) mg/dL Creatinine (0.70-1.30) mg/dL Estimated GFR/1.73 m2 (mL/min/1.73m2) Glucose (74-106) mg/dL Calcium (8.5-10.1) mg/dL Magnesium (1.8-2.4) mg/dL 2.0 Ferritin (22-322) ng/mL Total Bilirubin (0.2-1.0) mg/dL Conjugated Bilirubin (0.0-0.2) mg/dL AST (15-37) U/L ALT (16-63) U/L Alkaline Phosphatase (46-116) U/L Troponin I (<or=60) ng/L C-Reactive Protein (0.0-0.3) mg/dL NT-Pro-B Natriuret Pep (<300) pg/mL Total Protein (6.4-8.2) g/dL Albumin (3.4-5.0) g/dL Procalcitonin ng/mL TSH (0.36-3.74) uIU/mL C. albicans Allerg IgE kU/L M. racemosus Allrg IgE kU/L Urine Color (Yellow) Urine Clarity (Clear) Urine pH (5-8) Ur Specific [place] (1.005-1.025) Urine Protein (Negative) mg/dL Urine Ketones (Negative) mg/dL Urine Blood (Negative) Urine Nitrite (Negative) Urine Bilirubin (Negative) Urine Urobilinogen (Up TO 0.2) EU/dL Ur Leukocyte Esterase (Negative) Urine RBC (0-2) HPF Urine WBC (0-5) HPF Ur Epithelial Cells (Negative) HPF Urine Crystals (Negative) HPF Urine Bacteria (Negative) HPF Urine Casts (Negative) LPF Urine Mucus (Negative) Ur Culture Indicated? Urine Glucose (Negative) mg/dL Fluid Source Fluid Color Fluid Clarity Fluid WBC Fld Polynuclear WBCs % Fluid Mononuclear Cell Fluid Other Cells Vancomycin Trough Rheumatoid Factor (<12.0) IU/mL Cyclic Citrull Peptide (<5.0) U/mL ANNIE Titer ANNIE Titer 2 ANNIE Titer 3 ANNIE Interpretation (Negative) ANCA Immunofluorescen (Negative) ANCA Titer ANCA Pattern SS-A Antibody (<20.0) Units SS-B Antibody (<20.0) Units Scl-70 IgG Ab U Double Strand DNA Ab (<30.0) IU/mL Gram Stain Adenovirus DNA (Negative) Blastomyces Ag Result Blastomyces Ag Comment ng/mL COVID-19 Source SARS-CoV-2 (PCR) (Negative) Urine Histoplasma Ag U Histoplasma Ag Index ng/mL Human Metapneumovir RNA (Negative) Influenza Type A (PCR) (Negative) Influenza Type B (PCR) (Negative) L.pneumophila Antibody (Negative) Urine Legionella Ag (Negative) M. pneumoniae Source M. pneumoniae (PCR) Parainfluenza 1 (PCR) (Negative) Parainfluenza 2 (PCR) (Negative) Parainfluenza 3 (PCR) (Negative) Parainfluenza 4 (PCR) (Negative) Aspergillus Ag (EIA) (<0.5) index RSV (PCR) (Negative) Resp Viral Spec Desc Rhinovirus (PCR) (Negative) AFB Source AFB Culture Final Res Aerobic Culture Fungal Specimen Source B-(1,3)-D-Glucan Quant (<60 pg/mL) pg/mL B-(1,3)-D-Glucan Qual (Negative) Fungal Culture Status Fungal Culture Final Fungal Smear Result M. Tuberculosis PCR Path Cons Comment AFB Smear (Ref Lab) Add-On Test Request DONE Miscellaneous Test Ref Test Specimen Type Ref Report Verification Range/Units 10/27/21 10/27/21 10/28/21 06:34 06:34 05:15 WBC (4.4-10.8) 10^3/uL 10.65 RBC (4.36-5.78) 10^6/uL 3.40 L Hgb (13.5-17.5) g/dL 11.4 L Hct (40.0-50.0) % 34.4 L MCV (80-95) fL 101.2 H MCH (27.0-33.0) pg 33.5 H MCHC (32.0-36.0) % 33.1 RDW (11.8-14.1) % 12.6 Plt Count (130-400) 10^3/uL 117 L MPV (8.0-11.0) fL 10.1 Immature Gran % 1.5 Neutrophils % 87.8 Band Neutrophils % Lymphocytes % 5.4 Atypical Lymphs % Monocytes % 4.8 Eosinophils % 0.3 Basophils % 0.2 Metamyelocytes % Myelocytes % Nucleated RBC % % 0 Absolute Neutrophils (1.2-6.7) 10^3/uL 9.36 H Absolute Lymphocytes (1.2-3.4) 10^3/uL 0.57 L Absolute Monocytes (0.1-0.8) 10^3/uL 0.51 Absolute Eosinophils (0.0-0.7) 10^3/uL 0.03 Absolute Basophils (0.0-0.2) 10^3/uL 0.02 RBC Morphology Basophilic Stippling ESR (0-20) mm/hr Sample Site ABG Sample Site ABG pH (7.35-7.45) ABG pCO2 (35-45) mmHg ABG pO2 (80-105) mmHg ABG HCO3 (22-26) mmol/L ABG Total CO2 (23-27) mmol/L ABG O2 Saturation (95-98) % ABG Base Excess (-2-3) mmol/L VBG Lactate (0.6-1.4) mmol/L Oxygen Liter Flow FiO2 FiO2 (liters per min) L Sodium (136-145) mmol/L 138 139 Potassium (3.5-5.1) mmol/L 3.7 4.0 Chloride (98-107) mmol/L 104 105 Carbon Dioxide (21.0-32.0) mmol/L 25.5 27.4 Anion Gap (3-11) mmol/L 8.5 6.6 BUN (7-18) mg/dL 33 H 29 H Creatinine (0.70-1.30) mg/dL 1.5 H 1.5 H Estimated GFR/1.73 m2 (mL/min/1.73m2) 44.92 44.92 Glucose (74-106) mg/dL 121 H 79 Calcium (8.5-10.1) mg/dL 8.1 L 8.7 Magnesium (1.8-2.4) mg/dL 1.9 2.0 Ferritin (22-322) ng/mL Total Bilirubin (0.2-1.0) mg/dL Conjugated Bilirubin (0.0-0.2) mg/dL AST (15-37) U/L ALT (16-63) U/L Alkaline Phosphatase (46-116) U/L Troponin I (<or=60) ng/L C-Reactive Protein (0.0-0.3) mg/dL NT-Pro-B Natriuret Pep (<300) pg/mL Total Protein (6.4-8.2) g/dL Albumin (3.4-5.0) g/dL Procalcitonin ng/mL TSH (0.36-3.74) uIU/mL C. albicans Allerg IgE kU/L M. racemosus Allrg IgE kU/L Urine Color (Yellow) Urine Clarity (Clear) Urine pH (5-8) Ur Specific [place] (1.005-1.025) Urine Protein (Negative) mg/dL Urine Ketones (Negative) mg/dL Urine Blood (Negative) Urine Nitrite (Negative) Urine Bilirubin (Negative) Urine Urobilinogen (Up TO 0.2) EU/dL Ur Leukocyte Esterase (Negative) Urine RBC (0-2) HPF Urine WBC (0-5) HPF Ur Epithelial Cells (Negative) HPF Urine Crystals (Negative) HPF Urine Bacteria (Negative) HPF Urine Casts (Negative) LPF Urine Mucus (Negative) Ur Culture Indicated? Urine Glucose (Negative) mg/dL Fluid Source Fluid Color Fluid Clarity Fluid WBC Fld Polynuclear WBCs % Fluid Mononuclear Cell Fluid Other Cells Vancomycin Trough Rheumatoid Factor (<12.0) IU/mL Cyclic Citrull Peptide (<5.0) U/mL ANNIE Titer ANNIE Titer 2 ANNIE Titer 3 ANNIE Interpretation (Negative) ANCA Immunofluorescen (Negative) ANCA Titer ANCA Pattern SS-A Antibody (<20.0) Units SS-B Antibody (<20.0) Units Scl-70 IgG Ab U Double Strand DNA Ab (<30.0) IU/mL Gram Stain Adenovirus DNA (Negative) Blastomyces Ag Result Blastomyces Ag Comment ng/mL COVID-19 Source SARS-CoV-2 (PCR) (Negative) Urine Histoplasma Ag U Histoplasma Ag Index ng/mL Human Metapneumovir RNA (Negative) Influenza Type A (PCR) (Negative) Influenza Type B (PCR) (Negative) L.pneumophila Antibody (Negative) Urine Legionella Ag (Negative) M. pneumoniae Source M. pneumoniae (PCR) Parainfluenza 1 (PCR) (Negative) Parainfluenza 2 (PCR) (Negative) Parainfluenza 3 (PCR) (Negative) Parainfluenza 4 (PCR) (Negative) Aspergillus Ag (EIA) (<0.5) index RSV (PCR) (Negative) Resp Viral Spec Desc Rhinovirus (PCR) (Negative) AFB Source AFB Culture Final Res Aerobic Culture Fungal Specimen Source B-(1,3)-D-Glucan Quant (<60 pg/mL) pg/mL B-(1,3)-D-Glucan Qual (Negative) Fungal Culture Status Fungal Culture Final Fungal Smear Result M. Tuberculosis PCR Path Cons Comment AFB Smear (Ref Lab) Add-On Test Request Miscellaneous Test Ref Test Specimen Type Ref Report Verification Range/Units 10/28/21 10/29/21 10/29/21 05:15 07:00 07:00 WBC (4.4-10.8) 10^3/uL 8.86 7.72 RBC (4.36-5.78) 10^6/uL 3.71 L 3.52 L Hgb (13.5-17.5) g/dL 12.2 L 11.7 L Hct (40.0-50.0) % 38.6 L 35.0 L MCV (80-95) fL 104.0 H 99.4 H MCH (27.0-33.0) pg 32.9 33.2 H MCHC (32.0-36.0) % 31.6 L 33.4 RDW (11.8-14.1) % 12.9 13.1 Plt Count (130-400) 10^3/uL 121 L 118 L MPV (8.0-11.0) fL 10.2 9.6 Immature Gran % 2.0 1.9 Neutrophils % 75.9 81.2 Band Neutrophils % Lymphocytes % 12.0 8.3 Atypical Lymphs % Monocytes % 6.2 4.5 Eosinophils % 3.4 4.0 Basophils % 0.5 0.1 Metamyelocytes % Myelocytes % Nucleated RBC % % 0 0 Absolute Neutrophils (1.2-6.7) 10^3/uL 6.73 H 6.26 Absolute Lymphocytes (1.2-3.4) 10^3/uL 1.06 L 0.64 L Absolute Monocytes (0.1-0.8) 10^3/uL 0.55 0.35 Absolute Eosinophils (0.0-0.7) 10^3/uL 0.30 0.31 Absolute Basophils (0.0-0.2) 10^3/uL 0.04 0.01 RBC Morphology Basophilic Stippling ESR (0-20) mm/hr Sample Site ABG Sample Site ABG pH (7.35-7.45) ABG pCO2 (35-45) mmHg ABG pO2 (80-105) mmHg ABG HCO3 (22-26) mmol/L ABG Total CO2 (23-27) mmol/L ABG O2 Saturation (95-98) % ABG Base Excess (-2-3) mmol/L VBG Lactate (0.6-1.4) mmol/L Oxygen Liter Flow FiO2 FiO2 (liters per min) L Sodium (136-145) mmol/L 139 Potassium (3.5-5.1) mmol/L 3.7 Chloride (98-107) mmol/L 105 Carbon Dioxide (21.0-32.0) mmol/L 24.2 Anion Gap (3-11) mmol/L 9.8 BUN (7-18) mg/dL 26 H Creatinine (0.70-1.30) mg/dL 1.3 Estimated GFR/1.73 m2 (mL/min/1.73m2) 52.98 Glucose (74-106) mg/dL 88 Calcium (8.5-10.1) mg/dL 8.7 Magnesium (1.8-2.4) mg/dL Ferritin (22-322) ng/mL Total Bilirubin (0.2-1.0) mg/dL Conjugated Bilirubin (0.0-0.2) mg/dL AST (15-37) U/L ALT (16-63) U/L Alkaline Phosphatase (46-116) U/L Troponin I (<or=60) ng/L C-Reactive Protein (0.0-0.3) mg/dL 11.41 H NT-Pro-B Natriuret Pep (<300) pg/mL Total Protein (6.4-8.2) g/dL Albumin (3.4-5.0) g/dL Procalcitonin ng/mL TSH (0.36-3.74) uIU/mL C. albicans Allerg IgE kU/L M. racemosus Allrg IgE kU/L Urine Color (Yellow) Urine Clarity (Clear) Urine pH (5-8) Ur Specific [place] (1.005-1.025) Urine Protein (Negative) mg/dL Urine Ketones (Negative) mg/dL Urine Blood (Negative) Urine Nitrite (Negative) Urine Bilirubin (Negative) Urine Urobilinogen (Up TO 0.2) EU/dL Ur Leukocyte Esterase (Negative) Urine RBC (0-2) HPF Urine WBC (0-5) HPF Ur Epithelial Cells (Negative) HPF Urine Crystals (Negative) HPF Urine Bacteria (Negative) HPF Urine Casts (Negative) LPF Urine Mucus (Negative) Ur Culture Indicated? Urine Glucose (Negative) mg/dL Fluid Source Fluid Color Fluid Clarity Fluid WBC Fld Polynuclear WBCs % Fluid Mononuclear Cell Fluid Other Cells Vancomycin Trough Rheumatoid Factor (<12.0) IU/mL Cyclic Citrull Peptide (<5.0) U/mL ANNIE Titer ANNIE Titer 2 ANNIE Titer 3 ANNIE Interpretation (Negative) ANCA Immunofluorescen (Negative) ANCA Titer ANCA Pattern SS-A Antibody (<20.0) Units SS-B Antibody (<20.0) Units Scl-70 IgG Ab U Double Strand DNA Ab (<30.0) IU/mL Gram Stain Adenovirus DNA (Negative) Blastomyces Ag Result Blastomyces Ag Comment ng/mL COVID-19 Source SARS-CoV-2 (PCR) (Negative) Urine Histoplasma Ag U Histoplasma Ag Index ng/mL Human Metapneumovir RNA (Negative) Influenza Type A (PCR) (Negative) Influenza Type B (PCR) (Negative) L.pneumophila Antibody (Negative) Urine Legionella Ag (Negative) M. pneumoniae Source M. pneumoniae (PCR) Parainfluenza 1 (PCR) (Negative) Parainfluenza 2 (PCR) (Negative) Parainfluenza 3 (PCR) (Negative) Parainfluenza 4 (PCR) (Negative) Aspergillus Ag (EIA) (<0.5) index RSV (PCR) (Negative) Resp Viral Spec Desc Rhinovirus (PCR) (Negative) AFB Source AFB Culture Final Res Aerobic Culture Fungal Specimen Source B-(1,3)-D-Glucan Quant (<60 pg/mL) pg/mL B-(1,3)-D-Glucan Qual (Negative) Fungal Culture Status Fungal Culture Final Fungal Smear Result M. Tuberculosis PCR Path Cons Comment AFB Smear (Ref Lab) Add-On Test Request Miscellaneous Test Ref Test Specimen Type Ref Report Verification Range/Units 10/29/21 10/30/21 10/30/21 07:00 06:18 09:26 WBC (4.4-10.8) 10^3/uL RBC (4.36-5.78) 10^6/uL Hgb (13.5-17.5) g/dL Hct (40.0-50.0) % MCV (80-95) fL MCH (27.0-33.0) pg MCHC (32.0-36.0) % RDW (11.8-14.1) % Plt Count (130-400) 10^3/uL MPV (8.0-11.0) fL Immature Gran % Neutrophils % Band Neutrophils % Lymphocytes % Atypical Lymphs % Monocytes % Eosinophils % Basophils % Metamyelocytes % Myelocytes % Nucleated RBC % % Absolute Neutrophils (1.2-6.7) 10^3/uL Absolute Lymphocytes (1.2-3.4) 10^3/uL Absolute Monocytes (0.1-0.8) 10^3/uL Absolute Eosinophils (0.0-0.7) 10^3/uL Absolute Basophils (0.0-0.2) 10^3/uL RBC Morphology Basophilic Stippling ESR (0-20) mm/hr Sample Site ABG Sample Site ABG pH (7.35-7.45) ABG pCO2 (35-45) mmHg ABG pO2 (80-105) mmHg ABG HCO3 (22-26) mmol/L ABG Total CO2 (23-27) mmol/L ABG O2 Saturation (95-98) % ABG Base Excess (-2-3) mmol/L VBG Lactate (0.6-1.4) mmol/L 0.7 Oxygen Liter Flow FiO2 FiO2 (liters per min) L Sodium (136-145) mmol/L 139 Potassium (3.5-5.1) mmol/L 3.6 Chloride (98-107) mmol/L 104 Carbon Dioxide (21.0-32.0) mmol/L 25.4 Anion Gap (3-11) mmol/L 9.6 BUN (7-18) mg/dL 25 H Creatinine (0.70-1.30) mg/dL 1.4 H Estimated GFR/1.73 m2 (mL/min/1.73m2) 48.64 Glucose (74-106) mg/dL 113 H Calcium (8.5-10.1) mg/dL 8.9 Magnesium (1.8-2.4) mg/dL 2.0 Ferritin (22-322) ng/mL Total Bilirubin (0.2-1.0) mg/dL Conjugated Bilirubin (0.0-0.2) mg/dL AST (15-37) U/L ALT (16-63) U/L Alkaline Phosphatase (46-116) U/L Troponin I (<or=60) ng/L C-Reactive Protein (0.0-0.3) mg/dL NT-Pro-B Natriuret Pep (<300) pg/mL Total Protein (6.4-8.2) g/dL Albumin (3.4-5.0) g/dL Procalcitonin ng/mL 0.1 TSH (0.36-3.74) uIU/mL C. albicans Allerg IgE kU/L M. racemosus Allrg IgE kU/L Urine Color (Yellow) Urine Clarity (Clear) Urine pH (5-8) Ur Specific [place] (1.005-1.025) Urine Protein (Negative) mg/dL Urine Ketones (Negative) mg/dL Urine Blood (Negative) Urine Nitrite (Negative) Urine Bilirubin (Negative) Urine Urobilinogen (Up TO 0.2) EU/dL Ur Leukocyte Esterase (Negative) Urine RBC (0-2) HPF Urine WBC (0-5) HPF Ur Epithelial Cells (Negative) HPF Urine Crystals (Negative) HPF Urine Bacteria (Negative) HPF Urine Casts (Negative) LPF Urine Mucus (Negative) Ur Culture Indicated? Urine Glucose (Negative) mg/dL Fluid Source Fluid Color Fluid Clarity Fluid WBC Fld Polynuclear WBCs % Fluid Mononuclear Cell Fluid Other Cells Vancomycin Trough Rheumatoid Factor (<12.0) IU/mL Cyclic Citrull Peptide (<5.0) U/mL ANNIE Titer ANNIE Titer 2 ANNIE Titer 3 ANNIE Interpretation (Negative) ANCA Immunofluorescen (Negative) ANCA Titer ANCA Pattern SS-A Antibody (<20.0) Units SS-B Antibody (<20.0) Units Scl-70 IgG Ab U Double Strand DNA Ab (<30.0) IU/mL Gram Stain Adenovirus DNA (Negative) Blastomyces Ag Result Blastomyces Ag Comment ng/mL COVID-19 Source Nasal/Nares SARS-CoV-2 (PCR) (Negative) Negative Urine Histoplasma Ag U Histoplasma Ag Index ng/mL Human Metapneumovir RNA (Negative) Influenza Type A (PCR) (Negative) Influenza Type B (PCR) (Negative) L.pneumophila Antibody (Negative) Urine Legionella Ag (Negative) M. pneumoniae Source M. pneumoniae (PCR) Parainfluenza 1 (PCR) (Negative) Parainfluenza 2 (PCR) (Negative) Parainfluenza 3 (PCR) (Negative) Parainfluenza 4 (PCR) (Negative) Aspergillus Ag (EIA) (<0.5) index RSV (PCR) (Negative) Resp Viral Spec Desc Rhinovirus (PCR) (Negative) AFB Source AFB Culture Final Res Aerobic Culture Fungal Specimen Source B-(1,3)-D-Glucan Quant (<60 pg/mL) pg/mL B-(1,3)-D-Glucan Qual (Negative) Fungal Culture Status Fungal Culture Final Fungal Smear Result M. Tuberculosis PCR Path Cons Comment AFB Smear (Ref Lab) Add-On Test Request Miscellaneous Test Ref Test Specimen Type Ref Report Verification Range/Units 10/30/21 10/30/21 10/31/21 12:50 12:50 06:25 WBC (4.4-10.8) 10^3/uL RBC (4.36-5.78) 10^6/uL Hgb (13.5-17.5) g/dL Hct (40.0-50.0) % MCV (80-95) fL MCH (27.0-33.0) pg MCHC (32.0-36.0) % RDW (11.8-14.1) % Plt Count (130-400) 10^3/uL MPV (8.0-11.0) fL Immature Gran % Neutrophils % Band Neutrophils % Lymphocytes % Atypical Lymphs % Monocytes % Eosinophils % Basophils % Metamyelocytes % Myelocytes % Nucleated RBC % % Absolute Neutrophils (1.2-6.7) 10^3/uL Absolute Lymphocytes (1.2-3.4) 10^3/uL Absolute Monocytes (0.1-0.8) 10^3/uL Absolute Eosinophils (0.0-0.7) 10^3/uL Absolute Basophils (0.0-0.2) 10^3/uL RBC Morphology Basophilic Stippling ESR (0-20) mm/hr Sample Site Right Radial ABG Sample Site Cancelled ABG pH (7.35-7.45) 7.50 H ABG pCO2 (35-45) mmHg 30 L ABG pO2 (80-105) mmHg 79 L ABG HCO3 (22-26) mmol/L 22 ABG Total CO2 (23-27) mmol/L 23 ABG O2 Saturation (95-98) % 97 ABG Base Excess (-2-3) mmol/L -1 VBG Lactate (0.6-1.4) mmol/L 1.8 H Oxygen Liter Flow Cancelled FiO2 Cancelled FiO2 (liters per min) L 0.5 Sodium (136-145) mmol/L 140 Potassium (3.5-5.1) mmol/L 3.7 Chloride (98-107) mmol/L 103 Carbon Dioxide (21.0-32.0) mmol/L 28.1 Anion Gap (3-11) mmol/L 8.9 BUN (7-18) mg/dL 32 H Creatinine (0.70-1.30) mg/dL 1.5 H Estimated GFR/1.73 m2 (mL/min/1.73m2) 44.92 Glucose (74-106) mg/dL 110 H Calcium (8.5-10.1) mg/dL 8.7 Magnesium (1.8-2.4) mg/dL Ferritin (22-322) ng/mL Total Bilirubin (0.2-1.0) mg/dL Conjugated Bilirubin (0.0-0.2) mg/dL AST (15-37) U/L ALT (16-63) U/L Alkaline Phosphatase (46-116) U/L Troponin I (<or=60) ng/L C-Reactive Protein (0.0-0.3) mg/dL NT-Pro-B Natriuret Pep (<300) pg/mL Total Protein (6.4-8.2) g/dL Albumin (3.4-5.0) g/dL Procalcitonin ng/mL TSH (0.36-3.74) uIU/mL C. albicans Allerg IgE kU/L M. racemosus Allrg IgE kU/L Urine Color (Yellow) Urine Clarity (Clear) Urine pH (5-8) Ur Specific [place] (1.005-1.025) Urine Protein (Negative) mg/dL Urine Ketones (Negative) mg/dL Urine Blood (Negative) Urine Nitrite (Negative) Urine Bilirubin (Negative) Urine Urobilinogen (Up TO 0.2) EU/dL Ur Leukocyte Esterase (Negative) Urine RBC (0-2) HPF Urine WBC (0-5) HPF Ur Epithelial Cells (Negative) HPF Urine Crystals (Negative) HPF Urine Bacteria (Negative) HPF Urine Casts (Negative) LPF Urine Mucus (Negative) Ur Culture Indicated? Urine Glucose (Negative) mg/dL Fluid Source Fluid Color Fluid Clarity Fluid WBC Fld Polynuclear WBCs % Fluid Mononuclear Cell Fluid Other Cells Vancomycin Trough Rheumatoid Factor (<12.0) IU/mL Cyclic Citrull Peptide (<5.0) U/mL ANNIE Titer ANNIE Titer 2 ANNIE Titer 3 ANNIE Interpretation (Negative) ANCA Immunofluorescen (Negative) ANCA Titer ANCA Pattern SS-A Antibody (<20.0) Units SS-B Antibody (<20.0) Units Scl-70 IgG Ab U Double Strand DNA Ab (<30.0) IU/mL Gram Stain Adenovirus DNA (Negative) Blastomyces Ag Result Blastomyces Ag Comment ng/mL COVID-19 Source SARS-CoV-2 (PCR) (Negative) Urine Histoplasma Ag U Histoplasma Ag Index ng/mL Human Metapneumovir RNA (Negative) Influenza Type A (PCR) (Negative) Influenza Type B (PCR) (Negative) L.pneumophila Antibody (Negative) Urine Legionella Ag (Negative) M. pneumoniae Source M. pneumoniae (PCR) Parainfluenza 1 (PCR) (Negative) Parainfluenza 2 (PCR) (Negative) Parainfluenza 3 (PCR) (Negative) Parainfluenza 4 (PCR) (Negative) Aspergillus Ag (EIA) (<0.5) index RSV (PCR) (Negative) Resp Viral Spec Desc Rhinovirus (PCR) (Negative) AFB Source AFB Culture Final Res Aerobic Culture Fungal Specimen Source B-(1,3)-D-Glucan Quant (<60 pg/mL) pg/mL B-(1,3)-D-Glucan Qual (Negative) Fungal Culture Status Fungal Culture Final Fungal Smear Result M. Tuberculosis PCR Path Cons Comment AFB Smear (Ref Lab) Add-On Test Request Miscellaneous Test Ref Test Specimen Type Ref Report Verification Range/Units 10/31/21 11/02/21 11/02/21 06:25 06:30 06:45 WBC (4.4-10.8) 10^3/uL 9.97 RBC (4.36-5.78) 10^6/uL 3.49 L Hgb (13.5-17.5) g/dL 11.7 L Hct (40.0-50.0) % 35.0 L MCV (80-95) fL 100.3 H MCH (27.0-33.0) pg 33.5 H MCHC (32.0-36.0) % 33.4 RDW (11.8-14.1) % 13.0 Plt Count (130-400) 10^3/uL 146 MPV (8.0-11.0) fL 10.0 Immature Gran % 1.9 Neutrophils % 84.7 Band Neutrophils % Lymphocytes % 7.5 Atypical Lymphs % Monocytes % 3.5 Eosinophils % 2.3 Basophils % 0.1 Metamyelocytes % Myelocytes % Nucleated RBC % % 0 Absolute Neutrophils (1.2-6.7) 10^3/uL 8.44 H Absolute Lymphocytes (1.2-3.4) 10^3/uL 0.75 L Absolute Monocytes (0.1-0.8) 10^3/uL 0.35 Absolute Eosinophils (0.0-0.7) 10^3/uL 0.23 Absolute Basophils (0.0-0.2) 10^3/uL 0.01 RBC Morphology Basophilic Stippling ESR (0-20) mm/hr Sample Site ABG Sample Site ABG pH (7.35-7.45) ABG pCO2 (35-45) mmHg ABG pO2 (80-105) mmHg ABG HCO3 (22-26) mmol/L ABG Total CO2 (23-27) mmol/L ABG O2 Saturation (95-98) % ABG Base Excess (-2-3) mmol/L VBG Lactate (0.6-1.4) mmol/L Oxygen Liter Flow FiO2 FiO2 (liters per min) L Sodium (136-145) mmol/L 140 Potassium (3.5-5.1) mmol/L 3.9 Chloride (98-107) mmol/L 102 Carbon Dioxide (21.0-32.0) mmol/L 29.3 Anion Gap (3-11) mmol/L 8.7 BUN (7-18) mg/dL 31 H Creatinine (0.70-1.30) mg/dL 1.4 H Estimated GFR/1.73 m2 (mL/min/1.73m2) 48.64 Glucose (74-106) mg/dL 101 Calcium (8.5-10.1) mg/dL 9.3 Magnesium (1.8-2.4) mg/dL Ferritin (22-322) ng/mL Total Bilirubin (0.2-1.0) mg/dL Conjugated Bilirubin (0.0-0.2) mg/dL AST (15-37) U/L ALT (16-63) U/L Alkaline Phosphatase (46-116) U/L Troponin I (<or=60) ng/L C-Reactive Protein (0.0-0.3) mg/dL > 25.00 H NT-Pro-B Natriuret Pep (<300) pg/mL Total Protein (6.4-8.2) g/dL Albumin (3.4-5.0) g/dL Procalcitonin ng/mL TSH (0.36-3.74) uIU/mL C. albicans Allerg IgE kU/L M. racemosus Allrg IgE kU/L Urine Color (Yellow) Urine Clarity (Clear) Urine pH (5-8) Ur Specific [place] (1.005-1.025) Urine Protein (Negative) mg/dL Urine Ketones (Negative) mg/dL Urine Blood (Negative) Urine Nitrite (Negative) Urine Bilirubin (Negative) Urine Urobilinogen (Up TO 0.2) EU/dL Ur Leukocyte Esterase (Negative) Urine RBC (0-2) HPF Urine WBC (0-5) HPF Ur Epithelial Cells (Negative) HPF Urine Crystals (Negative) HPF Urine Bacteria (Negative) HPF Urine Casts (Negative) LPF Urine Mucus (Negative) Ur Culture Indicated? Urine Glucose (Negative) mg/dL Fluid Source Fluid Color Fluid Clarity Fluid WBC Fld Polynuclear WBCs % Fluid Mononuclear Cell Fluid Other Cells Vancomycin Trough Rheumatoid Factor (<12.0) IU/mL Cyclic Citrull Peptide (<5.0) U/mL ANNIE Titer ANNIE Titer 2 ANNIE Titer 3 ANNIE Interpretation (Negative) ANCA Immunofluorescen (Negative) ANCA Titer ANCA Pattern SS-A Antibody (<20.0) Units SS-B Antibody (<20.0) Units Scl-70 IgG Ab U Double Strand DNA Ab (<30.0) IU/mL Gram Stain Adenovirus DNA (Negative) Blastomyces Ag Result Blastomyces Ag Comment ng/mL COVID-19 Source SARS-CoV-2 (PCR) (Negative) Urine Histoplasma Ag U Histoplasma Ag Index ng/mL Human Metapneumovir RNA (Negative) Influenza Type A (PCR) (Negative) Influenza Type B (PCR) (Negative) L.pneumophila Antibody (Negative) Negative Urine Legionella Ag (Negative) M. pneumoniae Source M. pneumoniae (PCR) Parainfluenza 1 (PCR) (Negative) Parainfluenza 2 (PCR) (Negative) Parainfluenza 3 (PCR) (Negative) Parainfluenza 4 (PCR) (Negative) Aspergillus Ag (EIA) (<0.5) index RSV (PCR) (Negative) Resp Viral Spec Desc Rhinovirus (PCR) (Negative) AFB Source AFB Culture Final Res Aerobic Culture Fungal Specimen Source B-(1,3)-D-Glucan Quant (<60 pg/mL) pg/mL B-(1,3)-D-Glucan Qual (Negative) Fungal Culture Status Fungal Culture Final Fungal Smear Result M. Tuberculosis PCR Path Cons Comment AFB Smear (Ref Lab) Add-On Test Request Miscellaneous Test Ref Test Specimen Type Ref Report Verification Range/Units 11/02/21 11/02/21 11/02/21 06:45 06:45 06:45 WBC (4.4-10.8) 10^3/uL 7.69 RBC (4.36-5.78) 10^6/uL 3.59 L Hgb (13.5-17.5) g/dL 11.8 L Hct (40.0-50.0) % 36.7 L MCV (80-95) fL 102.2 H MCH (27.0-33.0) pg 32.9 MCHC (32.0-36.0) % 32.2 RDW (11.8-14.1) % 12.9 Plt Count (130-400) 10^3/uL 151 MPV (8.0-11.0) fL 9.8 Immature Gran % 1.6 Neutrophils % 78.6 Band Neutrophils % Lymphocytes % 12.2 Atypical Lymphs % Monocytes % 3.4 Eosinophils % 3.9 Basophils % 0.3 Metamyelocytes % Myelocytes % Nucleated RBC % % 0 Absolute Neutrophils (1.2-6.7) 10^3/uL 6.05 Absolute Lymphocytes (1.2-3.4) 10^3/uL 0.94 L Absolute Monocytes (0.1-0.8) 10^3/uL 0.26 Absolute Eosinophils (0.0-0.7) 10^3/uL 0.30 Absolute Basophils (0.0-0.2) 10^3/uL 0.02 RBC Morphology Basophilic Stippling ESR (0-20) mm/hr 41 H Sample Site ABG Sample Site ABG pH (7.35-7.45) ABG pCO2 (35-45) mmHg ABG pO2 (80-105) mmHg ABG HCO3 (22-26) mmol/L ABG Total CO2 (23-27) mmol/L ABG O2 Saturation (95-98) % ABG Base Excess (-2-3) mmol/L VBG Lactate (0.6-1.4) mmol/L Oxygen Liter Flow FiO2 FiO2 (liters per min) L Sodium (136-145) mmol/L Potassium (3.5-5.1) mmol/L Chloride (98-107) mmol/L Carbon Dioxide (21.0-32.0) mmol/L Anion Gap (3-11) mmol/L BUN (7-18) mg/dL Creatinine (0.70-1.30) mg/dL Estimated GFR/1.73 m2 (mL/min/1.73m2) Glucose (74-106) mg/dL Calcium (8.5-10.1) mg/dL Magnesium (1.8-2.4) mg/dL Ferritin (22-322) ng/mL Total Bilirubin (0.2-1.0) mg/dL Conjugated Bilirubin (0.0-0.2) mg/dL AST (15-37) U/L ALT (16-63) U/L Alkaline Phosphatase (46-116) U/L Troponin I (<or=60) ng/L C-Reactive Protein (0.0-0.3) mg/dL NT-Pro-B Natriuret Pep (<300) pg/mL Total Protein (6.4-8.2) g/dL Albumin (3.4-5.0) g/dL Procalcitonin ng/mL TSH (0.36-3.74) uIU/mL C. albicans Allerg IgE kU/L M. racemosus Allrg IgE kU/L Urine Color (Yellow) Urine Clarity (Clear) Urine pH (5-8) Ur Specific [place] (1.005-1.025) Urine Protein (Negative) mg/dL Urine Ketones (Negative) mg/dL Urine Blood (Negative) Urine Nitrite (Negative) Urine Bilirubin (Negative) Urine Urobilinogen (Up TO 0.2) EU/dL Ur Leukocyte Esterase (Negative) Urine RBC (0-2) HPF Urine WBC (0-5) HPF Ur Epithelial Cells (Negative) HPF Urine Crystals (Negative) HPF Urine Bacteria (Negative) HPF Urine Casts (Negative) LPF Urine Mucus (Negative) Ur Culture Indicated? Urine Glucose (Negative) mg/dL Fluid Source Fluid Color Fluid Clarity Fluid WBC Fld Polynuclear WBCs % Fluid Mononuclear Cell Fluid Other Cells Vancomycin Trough Rheumatoid Factor (<12.0) IU/mL Cyclic Citrull Peptide (<5.0) U/mL ANNIE Titer ANNIE Titer 2 ANNIE Titer 3 ANNIE Interpretation (Negative) ANCA Immunofluorescen (Negative) ANCA Titer ANCA Pattern SS-A Antibody (<20.0) Units SS-B Antibody (<20.0) Units Scl-70 IgG Ab U Double Strand DNA Ab (<30.0) IU/mL Gram Stain Adenovirus DNA (Negative) Blastomyces Ag Result Blastomyces Ag Comment ng/mL COVID-19 Source SARS-CoV-2 (PCR) (Negative) Urine Histoplasma Ag U Histoplasma Ag Index ng/mL Human Metapneumovir RNA (Negative) Influenza Type A (PCR) (Negative) Influenza Type B (PCR) (Negative) L.pneumophila Antibody (Negative) Urine Legionella Ag (Negative) M. pneumoniae Source M. pneumoniae (PCR) Parainfluenza 1 (PCR) (Negative) Parainfluenza 2 (PCR) (Negative) Parainfluenza 3 (PCR) (Negative) Parainfluenza 4 (PCR) (Negative) Aspergillus Ag (EIA) (<0.5) index RSV (PCR) (Negative) Resp Viral Spec Desc Rhinovirus (PCR) (Negative) AFB Source AFB Culture Final Res Aerobic Culture Fungal Specimen Source B-(1,3)-D-Glucan Quant (<60 pg/mL) pg/mL B-(1,3)-D-Glucan Qual (Negative) Fungal Culture Status Fungal Culture Final Fungal Smear Result M. Tuberculosis PCR Path Cons Comment AFB Smear (Ref Lab) Add-On Test Request done Miscellaneous Test Ref Test Specimen Type Ref Report Verification Range/Units 11/02/21 11/02/21 11/02/21 06:45 06:45 11:00 WBC (4.4-10.8) 10^3/uL RBC (4.36-5.78) 10^6/uL Hgb (13.5-17.5) g/dL Hct (40.0-50.0) % MCV (80-95) fL MCH (27.0-33.0) pg MCHC (32.0-36.0) % RDW (11.8-14.1) % Plt Count (130-400) 10^3/uL MPV (8.0-11.0) fL Immature Gran % Neutrophils % Band Neutrophils % Lymphocytes % Atypical Lymphs % Monocytes % Eosinophils % Basophils % Metamyelocytes % Myelocytes % Nucleated RBC % % Absolute Neutrophils (1.2-6.7) 10^3/uL Absolute Lymphocytes (1.2-3.4) 10^3/uL Absolute Monocytes (0.1-0.8) 10^3/uL Absolute Eosinophils (0.0-0.7) 10^3/uL Absolute Basophils (0.0-0.2) 10^3/uL RBC Morphology Basophilic Stippling ESR (0-20) mm/hr Sample Site ABG Sample Site ABG pH (7.35-7.45) ABG pCO2 (35-45) mmHg ABG pO2 (80-105) mmHg ABG HCO3 (22-26) mmol/L ABG Total CO2 (23-27) mmol/L ABG O2 Saturation (95-98) % ABG Base Excess (-2-3) mmol/L VBG Lactate (0.6-1.4) mmol/L Oxygen Liter Flow FiO2 FiO2 (liters per min) L Sodium (136-145) mmol/L Potassium (3.5-5.1) mmol/L Chloride (98-107) mmol/L Carbon Dioxide (21.0-32.0) mmol/L Anion Gap (3-11) mmol/L BUN (7-18) mg/dL Creatinine (0.70-1.30) mg/dL Estimated GFR/1.73 m2 (mL/min/1.73m2) Glucose (74-106) mg/dL Calcium (8.5-10.1) mg/dL Magnesium (1.8-2.4) mg/dL Ferritin (22-322) ng/mL 538 H Total Bilirubin (0.2-1.0) mg/dL Conjugated Bilirubin (0.0-0.2) mg/dL AST (15-37) U/L ALT (16-63) U/L Alkaline Phosphatase (46-116) U/L Troponin I (<or=60) ng/L C-Reactive Protein (0.0-0.3) mg/dL NT-Pro-B Natriuret Pep (<300) pg/mL 673 H Total Protein (6.4-8.2) g/dL Albumin (3.4-5.0) g/dL Procalcitonin ng/mL TSH (0.36-3.74) uIU/mL C. albicans Allerg IgE kU/L M. racemosus Allrg IgE kU/L Urine Color (Yellow) Urine Clarity (Clear) Urine pH (5-8) Ur Specific [place] (1.005-1.025) Urine Protein (Negative) mg/dL Urine Ketones (Negative) mg/dL Urine Blood (Negative) Urine Nitrite (Negative) Urine Bilirubin (Negative) Urine Urobilinogen (Up TO 0.2) EU/dL Ur Leukocyte Esterase (Negative) Urine RBC (0-2) HPF Urine WBC (0-5) HPF Ur Epithelial Cells (Negative) HPF Urine Crystals (Negative) HPF Urine Bacteria (Negative) HPF Urine Casts (Negative) LPF Urine Mucus (Negative) Ur Culture Indicated? Urine Glucose (Negative) mg/dL Fluid Source Fluid Color Fluid Clarity Fluid WBC Fld Polynuclear WBCs % Fluid Mononuclear Cell Fluid Other Cells Vancomycin Trough Rheumatoid Factor (<12.0) IU/mL Cyclic Citrull Peptide (<5.0) U/mL ANNIE Titer ANNIE Titer 2 ANNIE Titer 3 ANINE Interpretation (Negative) ANCA Immunofluorescen (Negative) ANCA Titer ANCA Pattern SS-A Antibody (<20.0) Units SS-B Antibody (<20.0) Units Scl-70 IgG Ab U Double Strand DNA Ab (<30.0) IU/mL Gram Stain Adenovirus DNA (Negative) Blastomyces Ag Result Blastomyces Ag Comment ng/mL COVID-19 Source Nasopharynx SARS-CoV-2 (PCR) (Negative) Negative Urine Histoplasma Ag U Histoplasma Ag Index ng/mL Human Metapneumovir RNA (Negative) Influenza Type A (PCR) (Negative) Influenza Type B (PCR) (Negative) L.pneumophila Antibody (Negative) Urine Legionella Ag (Negative) M. pneumoniae Source M. pneumoniae (PCR) Parainfluenza 1 (PCR) (Negative) Parainfluenza 2 (PCR) (Negative) Parainfluenza 3 (PCR) (Negative) Parainfluenza 4 (PCR) (Negative) Aspergillus Ag (EIA) (<0.5) index RSV (PCR) (Negative) Resp Viral Spec Desc Rhinovirus (PCR) (Negative) AFB Source AFB Culture Final Res Aerobic Culture Fungal Specimen Source B-(1,3)-D-Glucan Quant (<60 pg/mL) pg/mL B-(1,3)-D-Glucan Qual (Negative) Fungal Culture Status Fungal Culture Final Fungal Smear Result M. Tuberculosis PCR Path Cons Comment AFB Smear (Ref Lab) Add-On Test Request Miscellaneous Test Ref Test Specimen Type Ref Report Verification Range/Units 11/02/21 11/02/21 11/02/21 15:30 15:30 21:09 WBC (4.4-10.8) 10^3/uL RBC (4.36-5.78) 10^6/uL Hgb (13.5-17.5) g/dL Hct (40.0-50.0) % MCV (80-95) fL MCH (27.0-33.0) pg MCHC (32.0-36.0) % RDW (11.8-14.1) % Plt Count (130-400) 10^3/uL MPV (8.0-11.0) fL Immature Gran % Neutrophils % Band Neutrophils % Lymphocytes % Atypical Lymphs % Monocytes % Eosinophils % Basophils % Metamyelocytes % Myelocytes % Nucleated RBC % % Absolute Neutrophils (1.2-6.7) 10^3/uL Absolute Lymphocytes (1.2-3.4) 10^3/uL Absolute Monocytes (0.1-0.8) 10^3/uL Absolute Eosinophils (0.0-0.7) 10^3/uL Absolute Basophils (0.0-0.2) 10^3/uL RBC Morphology Basophilic Stippling ESR (0-20) mm/hr Sample Site ABG Sample Site ABG pH (7.35-7.45) ABG pCO2 (35-45) mmHg ABG pO2 (80-105) mmHg ABG HCO3 (22-26) mmol/L ABG Total CO2 (23-27) mmol/L ABG O2 Saturation (95-98) % ABG Base Excess (-2-3) mmol/L VBG Lactate (0.6-1.4) mmol/L Oxygen Liter Flow FiO2 FiO2 (liters per min) L Sodium (136-145) mmol/L Potassium (3.5-5.1) mmol/L Chloride (98-107) mmol/L Carbon Dioxide (21.0-32.0) mmol/L Anion Gap (3-11) mmol/L BUN (7-18) mg/dL Creatinine (0.70-1.30) mg/dL Estimated GFR/1.73 m2 (mL/min/1.73m2) Glucose (74-106) mg/dL Calcium (8.5-10.1) mg/dL Magnesium (1.8-2.4) mg/dL Ferritin (22-322) ng/mL Total Bilirubin (0.2-1.0) mg/dL Conjugated Bilirubin (0.0-0.2) mg/dL AST (15-37) U/L ALT (16-63) U/L Alkaline Phosphatase (46-116) U/L Troponin I (<or=60) ng/L C-Reactive Protein (0.0-0.3) mg/dL NT-Pro-B Natriuret Pep (<300) pg/mL Total Protein (6.4-8.2) g/dL Albumin (3.4-5.0) g/dL Procalcitonin ng/mL TSH (0.36-3.74) uIU/mL C. albicans Allerg IgE kU/L M. racemosus Allrg IgE kU/L Urine Color (Yellow) Urine Clarity (Clear) Urine pH (5-8) Ur Specific [place] (1.005-1.025) Urine Protein (Negative) mg/dL Urine Ketones (Negative) mg/dL Urine Blood (Negative) Urine Nitrite (Negative) Urine Bilirubin (Negative) Urine Urobilinogen (Up TO 0.2) EU/dL Ur Leukocyte Esterase (Negative) Urine RBC (0-2) HPF Urine WBC (0-5) HPF Ur Epithelial Cells (Negative) HPF Urine Crystals (Negative) HPF Urine Bacteria (Negative) HPF Urine Casts (Negative) LPF Urine Mucus (Negative) Ur Culture Indicated? Urine Glucose (Negative) mg/dL Fluid Source Fluid Color Fluid Clarity Fluid WBC Fld Polynuclear WBCs % Fluid Mononuclear Cell Fluid Other Cells Vancomycin Trough Rheumatoid Factor (<12.0) IU/mL Cyclic Citrull Peptide (<5.0) U/mL ANNIE Titer ANNIE Titer 2 ANNIE Titer 3 ANNIE Interpretation (Negative) ANCA Immunofluorescen (Negative) ANCA Titer ANCA Pattern SS-A Antibody (<20.0) Units SS-B Antibody (<20.0) Units Scl-70 IgG Ab U Double Strand DNA Ab (<30.0) IU/mL Gram Stain Adenovirus DNA (Negative) Negative Blastomyces Ag Result Blastomyces Ag Comment ng/mL COVID-19 Source SARS-CoV-2 (PCR) (Negative) Urine Histoplasma Ag U Histoplasma Ag Index ng/mL Human Metapneumovir RNA (Negative) Negative Influenza Type A (PCR) (Negative) Influenza Type B (PCR) (Negative) L.pneumophila Antibody (Negative) Urine Legionella Ag (Negative) M. pneumoniae Source nasal Cancelled M. pneumoniae (PCR) Negative Cancelled Parainfluenza 1 (PCR) (Negative) Negative Parainfluenza 2 (PCR) (Negative) Negative Parainfluenza 3 (PCR) (Negative) Negative Parainfluenza 4 (PCR) (Negative) Negative Aspergillus Ag (EIA) (<0.5) index RSV (PCR) (Negative) Resp Viral Spec Desc Not Applicable Rhinovirus (PCR) (Negative) Negative AFB Source AFB Culture Final Res Aerobic Culture Fungal Specimen Source B-(1,3)-D-Glucan Quant (<60 pg/mL) pg/mL B-(1,3)-D-Glucan Qual (Negative) Fungal Culture Status Fungal Culture Final Fungal Smear Result M. Tuberculosis PCR Path Cons Comment AFB Smear (Ref Lab) Add-On Test Request Miscellaneous Test Ref Test Specimen Type Ref Report Verification Range/Units 11/03/21 11/03/21 11/04/21 06:30 06:30 06:40 WBC (4.4-10.8) 10^3/uL 10.34 D RBC (4.36-5.78) 10^6/uL 3.37 L Hgb (13.5-17.5) g/dL 11.0 L Hct (40.0-50.0) % 33.6 L MCV (80-95) fL 99.7 H MCH (27.0-33.0) pg 32.6 MCHC (32.0-36.0) % 32.7 RDW (11.8-14.1) % 13.0 Plt Count (130-400) 10^3/uL 146 MPV (8.0-11.0) fL 10.2 Immature Gran % 1.1 Neutrophils % 94.4 Band Neutrophils % Lymphocytes % 3.3 Atypical Lymphs % Monocytes % 1.0 Eosinophils % 0.0 Basophils % 0.2 Metamyelocytes % Myelocytes % Nucleated RBC % % 0 Absolute Neutrophils (1.2-6.7) 10^3/uL 9.76 H Absolute Lymphocytes (1.2-3.4) 10^3/uL 0.34 L Absolute Monocytes (0.1-0.8) 10^3/uL 0.10 Absolute Eosinophils (0.0-0.7) 10^3/uL 0.00 Absolute Basophils (0.0-0.2) 10^3/uL 0.02 RBC Morphology Basophilic Stippling ESR (0-20) mm/hr Sample Site ABG Sample Site ABG pH (7.35-7.45) ABG pCO2 (35-45) mmHg ABG pO2 (80-105) mmHg ABG HCO3 (22-26) mmol/L ABG Total CO2 (23-27) mmol/L ABG O2 Saturation (95-98) % ABG Base Excess (-2-3) mmol/L VBG Lactate (0.6-1.4) mmol/L Oxygen Liter Flow FiO2 FiO2 (liters per min) L Sodium (136-145) mmol/L 140 142 Potassium (3.5-5.1) mmol/L 3.9 3.4 L Chloride (98-107) mmol/L 102 104 Carbon Dioxide (21.0-32.0) mmol/L 25.8 24.5 Anion Gap (3-11) mmol/L 12.2 H 13.5 H BUN (7-18) mg/dL 33 H 34 H Creatinine (0.70-1.30) mg/dL 1.6 H 1.7 H Estimated GFR/1.73 m2 (mL/min/1.73m2) 41.69 38.88 Glucose (74-106) mg/dL 197 H D 203 H Calcium (8.5-10.1) mg/dL 8.8 9.2 Magnesium (1.8-2.4) mg/dL Ferritin (22-322) ng/mL Total Bilirubin (0.2-1.0) mg/dL Conjugated Bilirubin (0.0-0.2) mg/dL AST (15-37) U/L ALT (16-63) U/L Alkaline Phosphatase (46-116) U/L Troponin I (<or=60) ng/L C-Reactive Protein (0.0-0.3) mg/dL NT-Pro-B Natriuret Pep (<300) pg/mL Total Protein (6.4-8.2) g/dL Albumin (3.4-5.0) g/dL Procalcitonin ng/mL TSH (0.36-3.74) uIU/mL 0.50 C. albicans Allerg IgE kU/L M. racemosus Allrg IgE kU/L Urine Color (Yellow) Urine Clarity (Clear) Urine pH (5-8) Ur Specific [place] (1.005-1.025) Urine Protein (Negative) mg/dL Urine Ketones (Negative) mg/dL Urine Blood (Negative) Urine Nitrite (Negative) Urine Bilirubin (Negative) Urine Urobilinogen (Up TO 0.2) EU/dL Ur Leukocyte Esterase (Negative) Urine RBC (0-2) HPF Urine WBC (0-5) HPF Ur Epithelial Cells (Negative) HPF Urine Crystals (Negative) HPF Urine Bacteria (Negative) HPF Urine Casts (Negative) LPF Urine Mucus (Negative) Ur Culture Indicated? Urine Glucose (Negative) mg/dL Fluid Source Fluid Color Fluid Clarity Fluid WBC Fld Polynuclear WBCs % Fluid Mononuclear Cell Fluid Other Cells Vancomycin Trough Rheumatoid Factor (<12.0) IU/mL Cyclic Citrull Peptide (<5.0) U/mL ANNIE Titer ANNIE Titer 2 ANNIE Titer 3 ANNIE Interpretation (Negative) ANCA Immunofluorescen (Negative) ANCA Titer ANCA Pattern SS-A Antibody (<20.0) Units SS-B Antibody (<20.0) Units Scl-70 IgG Ab U Double Strand DNA Ab (<30.0) IU/mL Gram Stain Adenovirus DNA (Negative) Blastomyces Ag Result Blastomyces Ag Comment ng/mL COVID-19 Source SARS-CoV-2 (PCR) (Negative) Urine Histoplasma Ag U Histoplasma Ag Index ng/mL Human Metapneumovir RNA (Negative) Influenza Type A (PCR) (Negative) Influenza Type B (PCR) (Negative) L.pneumophila Antibody (Negative) Urine Legionella Ag (Negative) M. pneumoniae Source M. pneumoniae (PCR) Parainfluenza 1 (PCR) (Negative) Parainfluenza 2 (PCR) (Negative) Parainfluenza 3 (PCR) (Negative) Parainfluenza 4 (PCR) (Negative) Aspergillus Ag (EIA) (<0.5) index RSV (PCR) (Negative) Resp Viral Spec Desc Rhinovirus (PCR) (Negative) AFB Source AFB Culture Final Res Aerobic Culture Fungal Specimen Source B-(1,3)-D-Glucan Quant (<60 pg/mL) pg/mL B-(1,3)-D-Glucan Qual (Negative) Fungal Culture Status Fungal Culture Final Fungal Smear Result M. Tuberculosis PCR Path Cons Comment AFB Smear (Ref Lab) Add-On Test Request Miscellaneous Test Ref Test Specimen Type Ref Report Verification Range/Units 11/04/21 11/04/21 11/04/21 06:40 19:35 19:35 WBC (4.4-10.8) 10^3/uL 14.11 H D RBC (4.36-5.78) 10^6/uL 3.38 L Hgb (13.5-17.5) g/dL 11.1 L Hct (40.0-50.0) % 33.6 L MCV (80-95) fL 99.4 H MCH (27.0-33.0) pg 32.8 MCHC (32.0-36.0) % 33.0 RDW (11.8-14.1) % 13.0 Plt Count (130-400) 10^3/uL 179 MPV (8.0-11.0) fL 10.8 Immature Gran % 0.9 Neutrophils % 93.0 Band Neutrophils % Lymphocytes % 2.7 Atypical Lymphs % Monocytes % 3.3 Eosinophils % 0.0 Basophils % 0.1 Metamyelocytes % Myelocytes % Nucleated RBC % % 0 Absolute Neutrophils (1.2-6.7) 10^3/uL 13.12 H Absolute Lymphocytes (1.2-3.4) 10^3/uL 0.38 L Absolute Monocytes (0.1-0.8) 10^3/uL 0.47 Absolute Eosinophils (0.0-0.7) 10^3/uL 0.00 Absolute Basophils (0.0-0.2) 10^3/uL 0.01 RBC Morphology Basophilic Stippling ESR (0-20) mm/hr Sample Site ABG Sample Site ABG pH (7.35-7.45) ABG pCO2 (35-45) mmHg ABG pO2 (80-105) mmHg ABG HCO3 (22-26) mmol/L ABG Total CO2 (23-27) mmol/L ABG O2 Saturation (95-98) % ABG Base Excess (-2-3) mmol/L VBG Lactate (0.6-1.4) mmol/L Oxygen Liter Flow FiO2 FiO2 (liters per min) L Sodium (136-145) mmol/L Potassium (3.5-5.1) mmol/L Chloride (98-107) mmol/L Carbon Dioxide (21.0-32.0) mmol/L Anion Gap (3-11) mmol/L BUN (7-18) mg/dL Creatinine (0.70-1.30) mg/dL Estimated GFR/1.73 m2 (mL/min/1.73m2) Glucose (74-106) mg/dL Calcium (8.5-10.1) mg/dL Magnesium (1.8-2.4) mg/dL Ferritin (22-322) ng/mL Total Bilirubin (0.2-1.0) mg/dL Conjugated Bilirubin (0.0-0.2) mg/dL AST (15-37) U/L ALT (16-63) U/L Alkaline Phosphatase (46-116) U/L Troponin I (<or=60) ng/L C-Reactive Protein (0.0-0.3) mg/dL NT-Pro-B Natriuret Pep (<300) pg/mL Total Protein (6.4-8.2) g/dL Albumin (3.4-5.0) g/dL Procalcitonin ng/mL TSH (0.36-3.74) uIU/mL C. albicans Allerg IgE kU/L M. racemosus Allrg IgE kU/L Urine Color (Yellow) Yellow Urine Clarity (Clear) Sl Cloudy Urine pH (5-8) 5.5 Ur Specific [place] (1.005-1.025) >= 1.030 H Urine Protein (Negative) mg/dL 30 H Urine Ketones (Negative) mg/dL Negative Urine Blood (Negative) Large H Urine Nitrite (Negative) Negative Urine Bilirubin (Negative) Negative Urine Urobilinogen (Up TO 0.2) EU/dL 0.2 Ur Leukocyte Esterase (Negative) Negative Urine RBC (0-2) HPF >50 H Urine WBC (0-5) HPF 0-2 Ur Epithelial Cells (Negative) HPF Negative Urine Crystals (Negative) HPF Moderate Uric Acid Urine Bacteria (Negative) HPF Few Urine Casts (Negative) LPF Urine Mucus (Negative) Negative Ur Culture Indicated? No Urine Glucose (Negative) mg/dL Negative Fluid Source Fluid Color Fluid Clarity Fluid WBC Fld Polynuclear WBCs % Fluid Mononuclear Cell Fluid Other Cells Vancomycin Trough Rheumatoid Factor (<12.0) IU/mL Cyclic Citrull Peptide (<5.0) U/mL ANNIE Titer ANNIE Titer 2 ANNIE Titer 3 ANNIE Interpretation (Negative) ANCA Immunofluorescen (Negative) ANCA Titer ANCA Pattern SS-A Antibody (<20.0) Units SS-B Antibody (<20.0) Units Scl-70 IgG Ab U Double Strand DNA Ab (<30.0) IU/mL Gram Stain Adenovirus DNA (Negative) Blastomyces Ag Result Blastomyces Ag Comment ng/mL COVID-19 Source SARS-CoV-2 (PCR) (Negative) Urine Histoplasma Ag U Histoplasma Ag Index ng/mL Human Metapneumovir RNA (Negative) Influenza Type A (PCR) (Negative) Influenza Type B (PCR) (Negative) L.pneumophila Antibody (Negative) Urine Legionella Ag (Negative) Negative M. pneumoniae Source M. pneumoniae (PCR) Parainfluenza 1 (PCR) (Negative) Parainfluenza 2 (PCR) (Negative) Parainfluenza 3 (PCR) (Negative) Parainfluenza 4 (PCR) (Negative) Aspergillus Ag (EIA) (<0.5) index RSV (PCR) (Negative) Resp Viral Spec Desc Rhinovirus (PCR) (Negative) AFB Source AFB Culture Final Res Aerobic Culture Fungal Specimen Source B-(1,3)-D-Glucan Quant (<60 pg/mL) pg/mL B-(1,3)-D-Glucan Qual (Negative) Fungal Culture Status Fungal Culture Final Fungal Smear Result M. Tuberculosis PCR Path Cons Comment AFB Smear (Ref Lab) Add-On Test Request Miscellaneous Test Ref Test Specimen Type Ref Report Verification Range/Units 11/04/21 11/04/21 11/05/21 19:35 19:35 07:50 WBC (4.4-10.8) 10^3/uL RBC (4.36-5.78) 10^6/uL Hgb (13.5-17.5) g/dL Hct (40.0-50.0) % MCV (80-95) fL MCH (27.0-33.0) pg MCHC (32.0-36.0) % RDW (11.8-14.1) % Plt Count (130-400) 10^3/uL MPV (8.0-11.0) fL Immature Gran % Neutrophils % Band Neutrophils % Lymphocytes % Atypical Lymphs % Monocytes % Eosinophils % Basophils % Metamyelocytes % Myelocytes % Nucleated RBC % % Absolute Neutrophils (1.2-6.7) 10^3/uL Absolute Lymphocytes (1.2-3.4) 10^3/uL Absolute Monocytes (0.1-0.8) 10^3/uL Absolute Eosinophils (0.0-0.7) 10^3/uL Absolute Basophils (0.0-0.2) 10^3/uL RBC Morphology Basophilic Stippling ESR (0-20) mm/hr Sample Site ABG Sample Site ABG pH (7.35-7.45) ABG pCO2 (35-45) mmHg ABG pO2 (80-105) mmHg ABG HCO3 (22-26) mmol/L ABG Total CO2 (23-27) mmol/L ABG O2 Saturation (95-98) % ABG Base Excess (-2-3) mmol/L VBG Lactate (0.6-1.4) mmol/L Oxygen Liter Flow FiO2 FiO2 (liters per min) L Sodium (136-145) mmol/L 141 Potassium (3.5-5.1) mmol/L 3.4 L Chloride (98-107) mmol/L 103 Carbon Dioxide (21.0-32.0) mmol/L 23.6 Anion Gap (3-11) mmol/L 14.4 H BUN (7-18) mg/dL 41 H Creatinine (0.70-1.30) mg/dL 2.0 H Estimated GFR/1.73 m2 (mL/min/1.73m2) 32.23 Glucose (74-106) mg/dL 180 H Calcium (8.5-10.1) mg/dL 9.5 Magnesium (1.8-2.4) mg/dL Ferritin (22-322) ng/mL Total Bilirubin (0.2-1.0) mg/dL Conjugated Bilirubin (0.0-0.2) mg/dL AST (15-37) U/L ALT (16-63) U/L Alkaline Phosphatase (46-116) U/L Troponin I (<or=60) ng/L C-Reactive Protein (0.0-0.3) mg/dL NT-Pro-B Natriuret Pep (<300) pg/mL Total Protein (6.4-8.2) g/dL Albumin (3.4-5.0) g/dL Procalcitonin ng/mL TSH (0.36-3.74) uIU/mL C. albicans Allerg IgE kU/L M. racemosus Allrg IgE kU/L Urine Color (Yellow) Urine Clarity (Clear) Urine pH (5-8) Ur Specific [place] (1.005-1.025) Urine Protein (Negative) mg/dL Urine Ketones (Negative) mg/dL Urine Blood (Negative) Urine Nitrite (Negative) Urine Bilirubin (Negative) Urine Urobilinogen (Up TO 0.2) EU/dL Ur Leukocyte Esterase (Negative) Urine RBC (0-2) HPF Urine WBC (0-5) HPF Ur Epithelial Cells (Negative) HPF Urine Crystals (Negative) HPF Urine Bacteria (Negative) HPF Urine Casts (Negative) LPF Urine Mucus (Negative) Ur Culture Indicated? Urine Glucose (Negative) mg/dL Fluid Source Fluid Color Fluid Clarity Fluid WBC Fld Polynuclear WBCs % Fluid Mononuclear Cell Fluid Other Cells Vancomycin Trough Rheumatoid Factor (<12.0) IU/mL Cyclic Citrull Peptide (<5.0) U/mL ANNIE Titer ANNIE Titer 2 ANNIE Titer 3 ANNIE Interpretation (Negative) ANCA Immunofluorescen (Negative) ANCA Titer ANCA Pattern SS-A Antibody (<20.0) Units SS-B Antibody (<20.0) Units Scl-70 IgG Ab U Double Strand DNA Ab (<30.0) IU/mL Gram Stain Adenovirus DNA (Negative) Blastomyces Ag Result Not Detected Blastomyces Ag Comment ng/mL Not Detected COVID-19 Source SARS-CoV-2 (PCR) (Negative) Urine Histoplasma Ag Not Detected U Histoplasma Ag Index ng/mL Not Detected Human Metapneumovir RNA (Negative) Influenza Type A (PCR) (Negative) Influenza Type B (PCR) (Negative) L.pneumophila Antibody (Negative) Urine Legionella Ag (Negative) M. pneumoniae Source M. pneumoniae (PCR) Parainfluenza 1 (PCR) (Negative) Parainfluenza 2 (PCR) (Negative) Parainfluenza 3 (PCR) (Negative) Parainfluenza 4 (PCR) (Negative) Aspergillus Ag (EIA) (<0.5) index RSV (PCR) (Negative) Resp Viral Spec Desc Rhinovirus (PCR) (Negative) AFB Source AFB Culture Final Res Aerobic Culture Fungal Specimen Source B-(1,3)-D-Glucan Quant (<60 pg/mL) pg/mL B-(1,3)-D-Glucan Qual (Negative) Fungal Culture Status Fungal Culture Final Fungal Smear Result M. Tuberculosis PCR Path Cons Comment AFB Smear (Ref Lab) Add-On Test Request Miscellaneous Test Ref Test Specimen Type Ref Report Verification Range/Units 11/05/21 11/05/21 11/05/21 07:50 07:50 07:50 WBC (4.4-10.8) 10^3/uL RBC (4.36-5.78) 10^6/uL Hgb (13.5-17.5) g/dL Hct (40.0-50.0) % MCV (80-95) fL MCH (27.0-33.0) pg MCHC (32.0-36.0) % RDW (11.8-14.1) % Plt Count (130-400) 10^3/uL MPV (8.0-11.0) fL Immature Gran % Neutrophils % Band Neutrophils % Lymphocytes % Atypical Lymphs % Monocytes % Eosinophils % Basophils % Metamyelocytes % Myelocytes % Nucleated RBC % % Absolute Neutrophils (1.2-6.7) 10^3/uL Absolute Lymphocytes (1.2-3.4) 10^3/uL Absolute Monocytes (0.1-0.8) 10^3/uL Absolute Eosinophils (0.0-0.7) 10^3/uL Absolute Basophils (0.0-0.2) 10^3/uL RBC Morphology Basophilic Stippling ESR (0-20) mm/hr 29 H Sample Site ABG Sample Site ABG pH (7.35-7.45) ABG pCO2 (35-45) mmHg ABG pO2 (80-105) mmHg ABG HCO3 (22-26) mmol/L ABG Total CO2 (23-27) mmol/L ABG O2 Saturation (95-98) % ABG Base Excess (-2-3) mmol/L VBG Lactate (0.6-1.4) mmol/L Oxygen Liter Flow FiO2 FiO2 (liters per min) L Sodium (136-145) mmol/L Potassium (3.5-5.1) mmol/L Chloride (98-107) mmol/L Carbon Dioxide (21.0-32.0) mmol/L Anion Gap (3-11) mmol/L BUN (7-18) mg/dL Creatinine (0.70-1.30) mg/dL Estimated GFR/1.73 m2 (mL/min/1.73m2) Glucose (74-106) mg/dL Calcium (8.5-10.1) mg/dL Magnesium (1.8-2.4) mg/dL Ferritin (22-322) ng/mL Total Bilirubin (0.2-1.0) mg/dL Conjugated Bilirubin (0.0-0.2) mg/dL AST (15-37) U/L ALT (16-63) U/L Alkaline Phosphatase (46-116) U/L Troponin I (<or=60) ng/L C-Reactive Protein (0.0-0.3) mg/dL 9.36 H NT-Pro-B Natriuret Pep (<300) pg/mL Total Protein (6.4-8.2) g/dL Albumin (3.4-5.0) g/dL Procalcitonin ng/mL TSH (0.36-3.74) uIU/mL C. albicans Allerg IgE kU/L M. racemosus Allrg IgE kU/L Urine Color (Yellow) Urine Clarity (Clear) Urine pH (5-8) Ur Specific [place] (1.005-1.025) Urine Protein (Negative) mg/dL Urine Ketones (Negative) mg/dL Urine Blood (Negative) Urine Nitrite (Negative) Urine Bilirubin (Negative) Urine Urobilinogen (Up TO 0.2) EU/dL Ur Leukocyte Esterase (Negative) Urine RBC (0-2) HPF Urine WBC (0-5) HPF Ur Epithelial Cells (Negative) HPF Urine Crystals (Negative) HPF Urine Bacteria (Negative) HPF Urine Casts (Negative) LPF Urine Mucus (Negative) Ur Culture Indicated? Urine Glucose (Negative) mg/dL Fluid Source Fluid Color Fluid Clarity Fluid WBC Fld Polynuclear WBCs % Fluid Mononuclear Cell Fluid Other Cells Vancomycin Trough Rheumatoid Factor (<12.0) IU/mL Cyclic Citrull Peptide (<5.0) U/mL ANNIE Titer ANNIE Titer 2 ANNIE Titer 3 ANNIE Interpretation (Negative) ANCA Immunofluorescen (Negative) ANCA Titer ANCA Pattern SS-A Antibody (<20.0) Units 1.0 SS-B Antibody (<20.0) Units Scl-70 IgG Ab U Double Strand DNA Ab (<30.0) IU/mL <12.3 Gram Stain Adenovirus DNA (Negative) Blastomyces Ag Result Blastomyces Ag Comment ng/mL COVID-19 Source SARS-CoV-2 (PCR) (Negative) Urine Histoplasma Ag U Histoplasma Ag Index ng/mL Human Metapneumovir RNA (Negative) Influenza Type A (PCR) (Negative) Influenza Type B (PCR) (Negative) L.pneumophila Antibody (Negative) Urine Legionella Ag (Negative) M. pneumoniae Source M. pneumoniae (PCR) Parainfluenza 1 (PCR) (Negative) Parainfluenza 2 (PCR) (Negative) Parainfluenza 3 (PCR) (Negative) Parainfluenza 4 (PCR) (Negative) Aspergillus Ag (EIA) (<0.5) index RSV (PCR) (Negative) Resp Viral Spec Desc Rhinovirus (PCR) (Negative) AFB Source AFB Culture Final Res Aerobic Culture Fungal Specimen Source B-(1,3)-D-Glucan Quant (<60 pg/mL) pg/mL B-(1,3)-D-Glucan Qual (Negative) Fungal Culture Status Fungal Culture Final Fungal Smear Result M. Tuberculosis PCR Path Cons Comment AFB Smear (Ref Lab) Add-On Test Request Miscellaneous Test Ref Test Specimen Type Ref Report Verification Range/Units 11/05/21 11/05/21 11/05/21 08:35 08:35 08:35 WBC (4.4-10.8) 10^3/uL RBC (4.36-5.78) 10^6/uL Hgb (13.5-17.5) g/dL Hct (40.0-50.0) % MCV (80-95) fL MCH (27.0-33.0) pg MCHC (32.0-36.0) % RDW (11.8-14.1) % Plt Count (130-400) 10^3/uL MPV (8.0-11.0) fL Immature Gran % Neutrophils % Band Neutrophils % Lymphocytes % Atypical Lymphs % Monocytes % Eosinophils % Basophils % Metamyelocytes % Myelocytes % Nucleated RBC % % Absolute Neutrophils (1.2-6.7) 10^3/uL Absolute Lymphocytes (1.2-3.4) 10^3/uL Absolute Monocytes (0.1-0.8) 10^3/uL Absolute Eosinophils (0.0-0.7) 10^3/uL Absolute Basophils (0.0-0.2) 10^3/uL RBC Morphology Basophilic Stippling ESR (0-20) mm/hr Sample Site ABG Sample Site ABG pH (7.35-7.45) ABG pCO2 (35-45) mmHg ABG pO2 (80-105) mmHg ABG HCO3 (22-26) mmol/L ABG Total CO2 (23-27) mmol/L ABG O2 Saturation (95-98) % ABG Base Excess (-2-3) mmol/L VBG Lactate (0.6-1.4) mmol/L Oxygen Liter Flow FiO2 FiO2 (liters per min) L Sodium (136-145) mmol/L Potassium (3.5-5.1) mmol/L Chloride (98-107) mmol/L Carbon Dioxide (21.0-32.0) mmol/L Anion Gap (3-11) mmol/L BUN (7-18) mg/dL Creatinine (0.70-1.30) mg/dL Estimated GFR/1.73 m2 (mL/min/1.73m2) Glucose (74-106) mg/dL Calcium (8.5-10.1) mg/dL Magnesium (1.8-2.4) mg/dL Ferritin (22-322) ng/mL Total Bilirubin (0.2-1.0) mg/dL Conjugated Bilirubin (0.0-0.2) mg/dL AST (15-37) U/L ALT (16-63) U/L Alkaline Phosphatase (46-116) U/L Troponin I (<or=60) ng/L C-Reactive Protein (0.0-0.3) mg/dL NT-Pro-B Natriuret Pep (<300) pg/mL Total Protein (6.4-8.2) g/dL Albumin (3.4-5.0) g/dL Procalcitonin ng/mL TSH (0.36-3.74) uIU/mL C. albicans Allerg IgE kU/L M. racemosus Allrg IgE kU/L Urine Color (Yellow) Urine Clarity (Clear) Urine pH (5-8) Ur Specific [place] (1.005-1.025) Urine Protein (Negative) mg/dL Urine Ketones (Negative) mg/dL Urine Blood (Negative) Urine Nitrite (Negative) Urine Bilirubin (Negative) Urine Urobilinogen (Up TO 0.2) EU/dL Ur Leukocyte Esterase (Negative) Urine RBC (0-2) HPF Urine WBC (0-5) HPF Ur Epithelial Cells (Negative) HPF Urine Crystals (Negative) HPF Urine Bacteria (Negative) HPF Urine Casts (Negative) LPF Urine Mucus (Negative) Ur Culture Indicated? Urine Glucose (Negative) mg/dL Fluid Source Fluid Color Fluid Clarity Fluid WBC Fld Polynuclear WBCs % Fluid Mononuclear Cell Fluid Other Cells Vancomycin Trough Rheumatoid Factor (<12.0) IU/mL 9.3 Cyclic Citrull Peptide (<5.0) U/mL <2.5 ANNIE Titer 1:160 Speckled ANNIE Titer 2 Not Applicable ANNIE Titer 3 Not Applicable ANNIE Interpretation (Negative) Positive A ANCA Immunofluorescen (Negative) Negative ANCA Titer Not Applicable ANCA Pattern Not Applicable SS-A Antibody (<20.0) Units SS-B Antibody (<20.0) Units 0.8 Scl-70 IgG Ab U <0.2 Double Strand DNA Ab (<30.0) IU/mL Gram Stain Adenovirus DNA (Negative) Blastomyces Ag Result Blastomyces Ag Comment ng/mL COVID-19 Source SARS-CoV-2 (PCR) (Negative) Urine Histoplasma Ag U Histoplasma Ag Index ng/mL Human Metapneumovir RNA (Negative) Influenza Type A (PCR) (Negative) Influenza Type B (PCR) (Negative) L.pneumophila Antibody (Negative) Urine Legionella Ag (Negative) M. pneumoniae Source M. pneumoniae (PCR) Parainfluenza 1 (PCR) (Negative) Parainfluenza 2 (PCR) (Negative) Parainfluenza 3 (PCR) (Negative) Parainfluenza 4 (PCR) (Negative) Aspergillus Ag (EIA) (<0.5) index RSV (PCR) (Negative) Resp Viral Spec Desc Rhinovirus (PCR) (Negative) AFB Source AFB Culture Final Res Aerobic Culture Fungal Specimen Source B-(1,3)-D-Glucan Quant (<60 pg/mL) pg/mL 149 A B-(1,3)-D-Glucan Qual (Negative) Positive A Fungal Culture Status Fungal Culture Final Fungal Smear Result M. Tuberculosis PCR Path Cons Comment AFB Smear (Ref Lab) Add-On Test Request Miscellaneous Test Ref Test Specimen Type Ref Report Verification Range/Units 11/05/21 11/06/21 11/06/21 13:00 06:21 06:21 WBC (4.4-10.8) 10^3/uL 10.75 RBC (4.36-5.78) 10^6/uL 3.44 L Hgb (13.5-17.5) g/dL 11.3 L Hct (40.0-50.0) % 34.4 L MCV (80-95) fL 100.0 H MCH (27.0-33.0) pg 32.8 MCHC (32.0-36.0) % 32.8 RDW (11.8-14.1) % 13.2 Plt Count (130-400) 10^3/uL 239 MPV (8.0-11.0) fL 10.5 Immature Gran % 3.1 Neutrophils % 85.9 Band Neutrophils % Lymphocytes % 4.8 Atypical Lymphs % Monocytes % 5.9 Eosinophils % 0.1 Basophils % 0.2 Metamyelocytes % Myelocytes % Nucleated RBC % % 0 Absolute Neutrophils (1.2-6.7) 10^3/uL 9.24 H Absolute Lymphocytes (1.2-3.4) 10^3/uL 0.52 L Absolute Monocytes (0.1-0.8) 10^3/uL 0.63 Absolute Eosinophils (0.0-0.7) 10^3/uL 0.01 Absolute Basophils (0.0-0.2) 10^3/uL 0.02 RBC Morphology Basophilic Stippling ESR (0-20) mm/hr Sample Site ABG Sample Site ABG pH (7.35-7.45) ABG pCO2 (35-45) mmHg ABG pO2 (80-105) mmHg ABG HCO3 (22-26) mmol/L ABG Total CO2 (23-27) mmol/L ABG O2 Saturation (95-98) % ABG Base Excess (-2-3) mmol/L VBG Lactate (0.6-1.4) mmol/L Oxygen Liter Flow FiO2 FiO2 (liters per min) L Sodium (136-145) mmol/L 142 Potassium (3.5-5.1) mmol/L 3.3 L Chloride (98-107) mmol/L 106 Carbon Dioxide (21.0-32.0) mmol/L 24.3 Anion Gap (3-11) mmol/L 11.7 H BUN (7-18) mg/dL 40 H Creatinine (0.70-1.30) mg/dL 1.6 H Estimated GFR/1.73 m2 (mL/min/1.73m2) 41.69 Glucose (74-106) mg/dL 147 H Calcium (8.5-10.1) mg/dL 9.3 Magnesium (1.8-2.4) mg/dL Ferritin (22-322) ng/mL Total Bilirubin (0.2-1.0) mg/dL Conjugated Bilirubin (0.0-0.2) mg/dL AST (15-37) U/L ALT (16-63) U/L Alkaline Phosphatase (46-116) U/L Troponin I (<or=60) ng/L C-Reactive Protein (0.0-0.3) mg/dL NT-Pro-B Natriuret Pep (<300) pg/mL Total Protein (6.4-8.2) g/dL Albumin (3.4-5.0) g/dL Procalcitonin ng/mL TSH (0.36-3.74) uIU/mL C. albicans Allerg IgE kU/L M. racemosus Allrg IgE kU/L Urine Color (Yellow) Urine Clarity (Clear) Urine pH (5-8) Ur Specific [place] (1.005-1.025) Urine Protein (Negative) mg/dL Urine Ketones (Negative) mg/dL Urine Blood (Negative) Urine Nitrite (Negative) Urine Bilirubin (Negative) Urine Urobilinogen (Up TO 0.2) EU/dL Ur Leukocyte Esterase (Negative) Urine RBC (0-2) HPF Urine WBC (0-5) HPF Ur Epithelial Cells (Negative) HPF Urine Crystals (Negative) HPF Urine Bacteria (Negative) HPF Urine Casts (Negative) LPF Urine Mucus (Negative) Ur Culture Indicated? Urine Glucose (Negative) mg/dL Fluid Source Fluid Color Fluid Clarity Fluid WBC Fld Polynuclear WBCs % Fluid Mononuclear Cell Fluid Other Cells Vancomycin Trough Cancelled Rheumatoid Factor (<12.0) IU/mL Cyclic Citrull Peptide (<5.0) U/mL ANNIE Titer ANNIE Titer 2 ANNIE Titer 3 ANNIE Interpretation (Negative) ANCA Immunofluorescen (Negative) ANCA Titer ANCA Pattern SS-A Antibody (<20.0) Units SS-B Antibody (<20.0) Units Scl-70 IgG Ab U Double Strand DNA Ab (<30.0) IU/mL Gram Stain Adenovirus DNA (Negative) Blastomyces Ag Result Blastomyces Ag Comment ng/mL COVID-19 Source SARS-CoV-2 (PCR) (Negative) Urine Histoplasma Ag U Histoplasma Ag Index ng/mL Human Metapneumovir RNA (Negative) Influenza Type A (PCR) (Negative) Influenza Type B (PCR) (Negative) L.pneumophila Antibody (Negative) Urine Legionella Ag (Negative) M. pneumoniae Source M. pneumoniae (PCR) Parainfluenza 1 (PCR) (Negative) Parainfluenza 2 (PCR) (Negative) Parainfluenza 3 (PCR) (Negative) Parainfluenza 4 (PCR) (Negative) Aspergillus Ag (EIA) (<0.5) index RSV (PCR) (Negative) Resp Viral Spec Desc Rhinovirus (PCR) (Negative) AFB Source AFB Culture Final Res Aerobic Culture Fungal Specimen Source B-(1,3)-D-Glucan Quant (<60 pg/mL) pg/mL B-(1,3)-D-Glucan Qual (Negative) Fungal Culture Status Fungal Culture Final Fungal Smear Result M. Tuberculosis PCR Path Cons Comment AFB Smear (Ref Lab) Add-On Test Request Miscellaneous Test Ref Test Specimen Type Ref Report Verification Range/Units 11/07/21 11/07/21 11/07/21 12:45 12:45 16:25 WBC (4.4-10.8) 10^3/uL RBC (4.36-5.78) 10^6/uL Hgb (13.5-17.5) g/dL Hct (40.0-50.0) % MCV (80-95) fL MCH (27.0-33.0) pg MCHC (32.0-36.0) % RDW (11.8-14.1) % Plt Count (130-400) 10^3/uL MPV (8.0-11.0) fL Immature Gran % Neutrophils % Band Neutrophils % Lymphocytes % Atypical Lymphs % Monocytes % Eosinophils % Basophils % Metamyelocytes % Myelocytes % Nucleated RBC % % Absolute Neutrophils (1.2-6.7) 10^3/uL Absolute Lymphocytes (1.2-3.4) 10^3/uL Absolute Monocytes (0.1-0.8) 10^3/uL Absolute Eosinophils (0.0-0.7) 10^3/uL Absolute Basophils (0.0-0.2) 10^3/uL RBC Morphology Basophilic Stippling ESR (0-20) mm/hr Sample Site ABG Sample Site ABG pH (7.35-7.45) ABG pCO2 (35-45) mmHg ABG pO2 (80-105) mmHg ABG HCO3 (22-26) mmol/L ABG Total CO2 (23-27) mmol/L ABG O2 Saturation (95-98) % ABG Base Excess (-2-3) mmol/L VBG Lactate (0.6-1.4) mmol/L Oxygen Liter Flow FiO2 FiO2 (liters per min) L Sodium (136-145) mmol/L Potassium (3.5-5.1) mmol/L Chloride (98-107) mmol/L Carbon Dioxide (21.0-32.0) mmol/L Anion Gap (3-11) mmol/L BUN (7-18) mg/dL Creatinine (0.70-1.30) mg/dL Estimated GFR/1.73 m2 (mL/min/1.73m2) Glucose (74-106) mg/dL Calcium (8.5-10.1) mg/dL Magnesium (1.8-2.4) mg/dL Ferritin (22-322) ng/mL Total Bilirubin (0.2-1.0) mg/dL Conjugated Bilirubin (0.0-0.2) mg/dL AST (15-37) U/L ALT (16-63) U/L Alkaline Phosphatase (46-116) U/L Troponin I (<or=60) ng/L C-Reactive Protein (0.0-0.3) mg/dL NT-Pro-B Natriuret Pep (<300) pg/mL Total Protein (6.4-8.2) g/dL Albumin (3.4-5.0) g/dL Procalcitonin ng/mL TSH (0.36-3.74) uIU/mL C. albicans Allerg IgE kU/L <0.35 M. racemosus Allrg IgE kU/L <0.35 Urine Color (Yellow) Urine Clarity (Clear) Urine pH (5-8) Ur Specific [place] (1.005-1.025) Urine Protein (Negative) mg/dL Urine Ketones (Negative) mg/dL Urine Blood (Negative) Urine Nitrite (Negative) Urine Bilirubin (Negative) Urine Urobilinogen (Up TO 0.2) EU/dL Ur Leukocyte Esterase (Negative) Urine RBC (0-2) HPF Urine WBC (0-5) HPF Ur Epithelial Cells (Negative) HPF Urine Crystals (Negative) HPF Urine Bacteria (Negative) HPF Urine Casts (Negative) LPF Urine Mucus (Negative) Ur Culture Indicated? Urine Glucose (Negative) mg/dL Fluid Source Fluid Color Fluid Clarity Fluid WBC Fld Polynuclear WBCs % Fluid Mononuclear Cell Fluid Other Cells Vancomycin Trough Rheumatoid Factor (<12.0) IU/mL Cyclic Citrull Peptide (<5.0) U/mL ANNIE Titer ANNIE Titer 2 ANNIE Titer 3 ANNIE Interpretation (Negative) ANCA Immunofluorescen (Negative) ANCA Titer ANCA Pattern SS-A Antibody (<20.0) Units SS-B Antibody (<20.0) Units Scl-70 IgG Ab U Double Strand DNA Ab (<30.0) IU/mL Gram Stain Adenovirus DNA (Negative) Blastomyces Ag Result Blastomyces Ag Comment ng/mL COVID-19 Source SARS-CoV-2 (PCR) (Negative) Urine Histoplasma Ag U Histoplasma Ag Index ng/mL Human Metapneumovir RNA (Negative) Influenza Type A (PCR) (Negative) Influenza Type B (PCR) (Negative) L.pneumophila Antibody (Negative) Urine Legionella Ag (Negative) M. pneumoniae Source M. pneumoniae (PCR) Parainfluenza 1 (PCR) (Negative) Parainfluenza 2 (PCR) (Negative) Parainfluenza 3 (PCR) (Negative) Parainfluenza 4 (PCR) (Negative) Aspergillus Ag (EIA) (<0.5) index <0.500 RSV (PCR) (Negative) Resp Viral Spec Desc Rhinovirus (PCR) (Negative) AFB Source AFB Culture Final Res Aerobic Culture Fungal Specimen Source B-(1,3)-D-Glucan Quant (<60 pg/mL) pg/mL B-(1,3)-D-Glucan Qual (Negative) Fungal Culture Status Fungal Culture Final Fungal Smear Result M. Tuberculosis PCR Path Cons Comment AFB Smear (Ref Lab) Add-On Test Request Miscellaneous Test Ref Test Specimen Type Ref Report Verification Range/Units 11/07/21 11/08/21 11/09/21 16:25 06:14 12:30 WBC (4.4-10.8) 10^3/uL RBC (4.36-5.78) 10^6/uL Hgb (13.5-17.5) g/dL Hct (40.0-50.0) % MCV (80-95) fL MCH (27.0-33.0) pg MCHC (32.0-36.0) % RDW (11.8-14.1) % Plt Count (130-400) 10^3/uL MPV (8.0-11.0) fL Immature Gran % Neutrophils % Band Neutrophils % Lymphocytes % Atypical Lymphs % Monocytes % Eosinophils % Basophils % Metamyelocytes % Myelocytes % Nucleated RBC % % Absolute Neutrophils (1.2-6.7) 10^3/uL Absolute Lymphocytes (1.2-3.4) 10^3/uL Absolute Monocytes (0.1-0.8) 10^3/uL Absolute Eosinophils (0.0-0.7) 10^3/uL Absolute Basophils (0.0-0.2) 10^3/uL RBC Morphology Basophilic Stippling ESR (0-20) mm/hr Sample Site ABG Sample Site ABG pH (7.35-7.45) ABG pCO2 (35-45) mmHg ABG pO2 (80-105) mmHg ABG HCO3 (22-26) mmol/L ABG Total CO2 (23-27) mmol/L ABG O2 Saturation (95-98) % ABG Base Excess (-2-3) mmol/L VBG Lactate (0.6-1.4) mmol/L Oxygen Liter Flow FiO2 FiO2 (liters per min) L Sodium (136-145) mmol/L 145 Potassium (3.5-5.1) mmol/L 4.1 D Chloride (98-107) mmol/L 108 H Carbon Dioxide (21.0-32.0) mmol/L 28.0 Anion Gap (3-11) mmol/L 9.0 BUN (7-18) mg/dL 35 H Creatinine (0.70-1.30) mg/dL 1.5 H Estimated GFR/1.73 m2 (mL/min/1.73m2) 44.92 Glucose (74-106) mg/dL 113 H Calcium (8.5-10.1) mg/dL 9.4 Magnesium (1.8-2.4) mg/dL Ferritin (22-322) ng/mL Total Bilirubin (0.2-1.0) mg/dL Conjugated Bilirubin (0.0-0.2) mg/dL AST (15-37) U/L ALT (16-63) U/L Alkaline Phosphatase (46-116) U/L Troponin I (<or=60) ng/L C-Reactive Protein (0.0-0.3) mg/dL NT-Pro-B Natriuret Pep (<300) pg/mL Total Protein (6.4-8.2) g/dL Albumin (3.4-5.0) g/dL Procalcitonin ng/mL TSH (0.36-3.74) uIU/mL C. albicans Allerg IgE kU/L M. racemosus Allrg IgE kU/L Urine Color (Yellow) Urine Clarity (Clear) Urine pH (5-8) Ur Specific [place] (1.005-1.025) Urine Protein (Negative) mg/dL Urine Ketones (Negative) mg/dL Urine Blood (Negative) Urine Nitrite (Negative) Urine Bilirubin (Negative) Urine Urobilinogen (Up TO 0.2) EU/dL Ur Leukocyte Esterase (Negative) Urine RBC (0-2) HPF Urine WBC (0-5) HPF Ur Epithelial Cells (Negative) HPF Urine Crystals (Negative) HPF Urine Bacteria (Negative) HPF Urine Casts (Negative) LPF Urine Mucus (Negative) Ur Culture Indicated? Urine Glucose (Negative) mg/dL Fluid Source Fluid Color Fluid Clarity Fluid WBC Fld Polynuclear WBCs % Fluid Mononuclear Cell Fluid Other Cells Vancomycin Trough Rheumatoid Factor (<12.0) IU/mL Cyclic Citrull Peptide (<5.0) U/mL ANNIE Titer ANNIE Titer 2 ANNIE Titer 3 ANNIE Interpretation (Negative) ANCA Immunofluorescen (Negative) ANCA Titer ANCA Pattern SS-A Antibody (<20.0) Units SS-B Antibody (<20.0) Units Scl-70 IgG Ab U Double Strand DNA Ab (<30.0) IU/mL Gram Stain Adenovirus DNA (Negative) Blastomyces Ag Result Blastomyces Ag Comment ng/mL COVID-19 Source SARS-CoV-2 (PCR) (Negative) Urine Histoplasma Ag U Histoplasma Ag Index ng/mL Human Metapneumovir RNA (Negative) Influenza Type A (PCR) (Negative) Influenza Type B (PCR) (Negative) L.pneumophila Antibody (Negative) Urine Legionella Ag (Negative) M. pneumoniae Source M. pneumoniae (PCR) Parainfluenza 1 (PCR) (Negative) Parainfluenza 2 (PCR) (Negative) Parainfluenza 3 (PCR) (Negative) Parainfluenza 4 (PCR) (Negative) Aspergillus Ag (EIA) (<0.5) index RSV (PCR) (Negative) Resp Viral Spec Desc Rhinovirus (PCR) (Negative) AFB Source AFB Culture Final Res Aerobic Culture Fungal Specimen Source Cancelled B-(1,3)-D-Glucan Quant (<60 pg/mL) pg/mL 123 A B-(1,3)-D-Glucan Qual (Negative) Positive A Fungal Culture Status Cancelled Fungal Culture Final Cancelled Fungal Smear Result Cancelled M. Tuberculosis PCR Path Cons Comment AFB Smear (Ref Lab) Add-On Test Request Miscellaneous Test Ref Test Specimen Type Ref Report Verification Range/Units 11/09/21 11/09/21 11/09/21 12:30 12:30 12:30 WBC (4.4-10.8) 10^3/uL RBC (4.36-5.78) 10^6/uL Hgb (13.5-17.5) g/dL Hct (40.0-50.0) % MCV (80-95) fL MCH (27.0-33.0) pg MCHC (32.0-36.0) % RDW (11.8-14.1) % Plt Count (130-400) 10^3/uL MPV (8.0-11.0) fL Immature Gran % Neutrophils % Band Neutrophils % Lymphocytes % Atypical Lymphs % Monocytes % Eosinophils % Basophils % Metamyelocytes % Myelocytes % Nucleated RBC % % Absolute Neutrophils (1.2-6.7) 10^3/uL Absolute Lymphocytes (1.2-3.4) 10^3/uL Absolute Monocytes (0.1-0.8) 10^3/uL Absolute Eosinophils (0.0-0.7) 10^3/uL Absolute Basophils (0.0-0.2) 10^3/uL RBC Morphology Basophilic Stippling ESR (0-20) mm/hr Sample Site ABG Sample Site ABG pH (7.35-7.45) ABG pCO2 (35-45) mmHg ABG pO2 (80-105) mmHg ABG HCO3 (22-26) mmol/L ABG Total CO2 (23-27) mmol/L ABG O2 Saturation (95-98) % ABG Base Excess (-2-3) mmol/L VBG Lactate (0.6-1.4) mmol/L Oxygen Liter Flow FiO2 FiO2 (liters per min) L Sodium (136-145) mmol/L Potassium (3.5-5.1) mmol/L Chloride (98-107) mmol/L Carbon Dioxide (21.0-32.0) mmol/L Anion Gap (3-11) mmol/L BUN (7-18) mg/dL Creatinine (0.70-1.30) mg/dL Estimated GFR/1.73 m2 (mL/min/1.73m2) Glucose (74-106) mg/dL Calcium (8.5-10.1) mg/dL Magnesium (1.8-2.4) mg/dL Ferritin (22-322) ng/mL Total Bilirubin (0.2-1.0) mg/dL Conjugated Bilirubin (0.0-0.2) mg/dL AST (15-37) U/L ALT (16-63) U/L Alkaline Phosphatase (46-116) U/L Troponin I (<or=60) ng/L C-Reactive Protein (0.0-0.3) mg/dL NT-Pro-B Natriuret Pep (<300) pg/mL Total Protein (6.4-8.2) g/dL Albumin (3.4-5.0) g/dL Procalcitonin ng/mL TSH (0.36-3.74) uIU/mL C. albicans Allerg IgE kU/L M. racemosus Allrg IgE kU/L Urine Color (Yellow) Urine Clarity (Clear) Urine pH (5-8) Ur Specific [place] (1.005-1.025) Urine Protein (Negative) mg/dL Urine Ketones (Negative) mg/dL Urine Blood (Negative) Urine Nitrite (Negative) Urine Bilirubin (Negative) Urine Urobilinogen (Up TO 0.2) EU/dL Ur Leukocyte Esterase (Negative) Urine RBC (0-2) HPF Urine WBC (0-5) HPF Ur Epithelial Cells (Negative) HPF Urine Crystals (Negative) HPF Urine Bacteria (Negative) HPF Urine Casts (Negative) LPF Urine Mucus (Negative) Ur Culture Indicated? Urine Glucose (Negative) mg/dL Fluid Source Cancelled Fluid Color Cancelled Fluid Clarity Cancelled Fluid WBC Cancelled Fld Polynuclear WBCs % Cancelled Fluid Mononuclear Cell Cancelled Fluid Other Cells Cancelled Vancomycin Trough Rheumatoid Factor (<12.0) IU/mL Cyclic Citrull Peptide (<5.0) U/mL ANNIE Titer ANNIE Titer 2 ANNIE Titer 3 ANNIE Interpretation (Negative) ANCA Immunofluorescen (Negative) ANCA Titer ANCA Pattern SS-A Antibody (<20.0) Units SS-B Antibody (<20.0) Units Scl-70 IgG Ab U Double Strand DNA Ab (<30.0) IU/mL Gram Stain Adenovirus DNA (Negative) Blastomyces Ag Result Blastomyces Ag Comment ng/mL COVID-19 Source SARS-CoV-2 (PCR) (Negative) Urine Histoplasma Ag U Histoplasma Ag Index ng/mL Human Metapneumovir RNA (Negative) Influenza Type A (PCR) (Negative) Influenza Type B (PCR) (Negative) L.pneumophila Antibody (Negative) Urine Legionella Ag (Negative) M. pneumoniae Source M. pneumoniae (PCR) Parainfluenza 1 (PCR) (Negative) Parainfluenza 2 (PCR) (Negative) Parainfluenza 3 (PCR) (Negative) Parainfluenza 4 (PCR) (Negative) Aspergillus Ag (EIA) (<0.5) index RSV (PCR) (Negative) Resp Viral Spec Desc Rhinovirus (PCR) (Negative) AFB Source Cancelled AFB Culture Final Res Cancelled Aerobic Culture Fungal Specimen Source B-(1,3)-D-Glucan Quant (<60 pg/mL) pg/mL B-(1,3)-D-Glucan Qual (Negative) Fungal Culture Status Fungal Culture Final Fungal Smear Result M. Tuberculosis PCR Cancelled Path Cons Comment Cancelled AFB Smear (Ref Lab) Cancelled Add-On Test Request Miscellaneous Test See Comments Ref Test Specimen Type Ref Report Verification Range/Units 11/09/21 11/10/21 11/10/21 12:30 05:39 05:39 WBC (4.4-10.8) 10^3/uL 10.65 RBC (4.36-5.78) 10^6/uL 3.64 L Hgb (13.5-17.5) g/dL 11.9 L Hct (40.0-50.0) % 36.3 L MCV (80-95) fL 99.7 H MCH (27.0-33.0) pg 32.7 MCHC (32.0-36.0) % 32.8 RDW (11.8-14.1) % 12.8 Plt Count (130-400) 10^3/uL 307 MPV (8.0-11.0) fL 9.9 Immature Gran % 13.2 Neutrophils % 69.6 Band Neutrophils % Lymphocytes % 9.3 Atypical Lymphs % Monocytes % 3.5 Eosinophils % 3.8 Basophils % 0.6 Metamyelocytes % Myelocytes % Nucleated RBC % % 0 Absolute Neutrophils (1.2-6.7) 10^3/uL 7.41 H Absolute Lymphocytes (1.2-3.4) 10^3/uL 0.99 L Absolute Monocytes (0.1-0.8) 10^3/uL 0.37 Absolute Eosinophils (0.0-0.7) 10^3/uL 0.41 Absolute Basophils (0.0-0.2) 10^3/uL 0.06 RBC Morphology See Below Basophilic Stippling Present ESR (0-20) mm/hr Sample Site ABG Sample Site ABG pH (7.35-7.45) ABG pCO2 (35-45) mmHg ABG pO2 (80-105) mmHg ABG HCO3 (22-26) mmol/L ABG Total CO2 (23-27) mmol/L ABG O2 Saturation (95-98) % ABG Base Excess (-2-3) mmol/L VBG Lactate (0.6-1.4) mmol/L Oxygen Liter Flow FiO2 FiO2 (liters per min) L Sodium (136-145) mmol/L 140 Potassium (3.5-5.1) mmol/L 4.1 Chloride (98-107) mmol/L 103 Carbon Dioxide (21.0-32.0) mmol/L 30.0 Anion Gap (3-11) mmol/L 7.0 BUN (7-18) mg/dL 28 H Creatinine (0.70-1.30) mg/dL 1.4 H Estimated GFR/1.73 m2 (mL/min/1.73m2) 48.64 Glucose (74-106) mg/dL 130 H Calcium (8.5-10.1) mg/dL 8.7 Magnesium (1.8-2.4) mg/dL Ferritin (22-322) ng/mL Total Bilirubin (0.2-1.0) mg/dL Conjugated Bilirubin (0.0-0.2) mg/dL AST (15-37) U/L ALT (16-63) U/L Alkaline Phosphatase (46-116) U/L Troponin I (<or=60) ng/L C-Reactive Protein (0.0-0.3) mg/dL NT-Pro-B Natriuret Pep (<300) pg/mL Total Protein (6.4-8.2) g/dL Albumin (3.4-5.0) g/dL Procalcitonin ng/mL TSH (0.36-3.74) uIU/mL C. albicans Allerg IgE kU/L M. racemosus Allrg IgE kU/L Urine Color (Yellow) Urine Clarity (Clear) Urine pH (5-8) Ur Specific [place] (1.005-1.025) Urine Protein (Negative) mg/dL Urine Ketones (Negative) mg/dL Urine Blood (Negative) Urine Nitrite (Negative) Urine Bilirubin (Negative) Urine Urobilinogen (Up TO 0.2) EU/dL Ur Leukocyte Esterase (Negative) Urine RBC (0-2) HPF Urine WBC (0-5) HPF Ur Epithelial Cells (Negative) HPF Urine Crystals (Negative) HPF Urine Bacteria (Negative) HPF Urine Casts (Negative) LPF Urine Mucus (Negative) Ur Culture Indicated? Urine Glucose (Negative) mg/dL Fluid Source Fluid Color Fluid Clarity Fluid WBC Fld Polynuclear WBCs % Fluid Mononuclear Cell Fluid Other Cells Vancomycin Trough Rheumatoid Factor (<12.0) IU/mL Cyclic Citrull Peptide (<5.0) U/mL ANNIE Titer ANNIE Titer 2 ANNIE Titer 3 ANNIE Interpretation (Negative) ANCA Immunofluorescen (Negative) ANCA Titer ANCA Pattern SS-A Antibody (<20.0) Units SS-B Antibody (<20.0) Units Scl-70 IgG Ab U Double Strand DNA Ab (<30.0) IU/mL Gram Stain Neutrophils Present A Adenovirus DNA (Negative) Blastomyces Ag Result Blastomyces Ag Comment ng/mL COVID-19 Source SARS-CoV-2 (PCR) (Negative) Urine Histoplasma Ag U Histoplasma Ag Index ng/mL Human Metapneumovir RNA (Negative) Influenza Type A (PCR) (Negative) Influenza Type B (PCR) (Negative) L.pneumophila Antibody (Negative) Urine Legionella Ag (Negative) M. pneumoniae Source M. pneumoniae (PCR) Parainfluenza 1 (PCR) (Negative) Parainfluenza 2 (PCR) (Negative) Parainfluenza 3 (PCR) (Negative) Parainfluenza 4 (PCR) (Negative) Aspergillus Ag (EIA) (<0.5) index RSV (PCR) (Negative) Resp Viral Spec Desc Rhinovirus (PCR) (Negative) AFB Source AFB Culture Final Res Aerobic Culture No Growth Fungal Specimen Source B-(1,3)-D-Glucan Quant (<60 pg/mL) pg/mL B-(1,3)-D-Glucan Qual (Negative) Fungal Culture Status Fungal Culture Final Fungal Smear Result M. Tuberculosis PCR Path Cons Comment AFB Smear (Ref Lab) Add-On Test Request Miscellaneous Test Ref Test Specimen Type Not Applicable Ref Report Verification Not Applicable Range/Units 11/11/21 11/11/21 11/12/21 06:10 06:10 06:34 WBC (4.4-10.8) 10^3/uL 10.76 RBC (4.36-5.78) 10^6/uL 3.71 L Hgb (13.5-17.5) g/dL 12.1 L Hct (40.0-50.0) % 36.7 L MCV (80-95) fL 98.9 H MCH (27.0-33.0) pg 32.6 MCHC (32.0-36.0) % 33.0 RDW (11.8-14.1) % 12.5 Plt Count (130-400) 10^3/uL 314 MPV (8.0-11.0) fL 9.8 Immature Gran % 11.4 Neutrophils % 70.0 Band Neutrophils % Lymphocytes % 9.9 Atypical Lymphs % Monocytes % 5.1 Eosinophils % 2.8 Basophils % 0.8 Metamyelocytes % Myelocytes % Nucleated RBC % % 0 Absolute Neutrophils (1.2-6.7) 10^3/uL 7.52 H Absolute Lymphocytes (1.2-3.4) 10^3/uL 1.07 L Absolute Monocytes (0.1-0.8) 10^3/uL 0.55 Absolute Eosinophils (0.0-0.7) 10^3/uL 0.30 Absolute Basophils (0.0-0.2) 10^3/uL 0.09 RBC Morphology See Below Basophilic Stippling Present ESR (0-20) mm/hr Sample Site ABG Sample Site ABG pH (7.35-7.45) ABG pCO2 (35-45) mmHg ABG pO2 (80-105) mmHg ABG HCO3 (22-26) mmol/L ABG Total CO2 (23-27) mmol/L ABG O2 Saturation (95-98) % ABG Base Excess (-2-3) mmol/L VBG Lactate (0.6-1.4) mmol/L Oxygen Liter Flow FiO2 FiO2 (liters per min) L Sodium (136-145) mmol/L 138 142 Potassium (3.5-5.1) mmol/L 4.5 4.4 Chloride (98-107) mmol/L 102 104 Carbon Dioxide (21.0-32.0) mmol/L 29.5 29.0 Anion Gap (3-11) mmol/L 6.5 9.0 BUN (7-18) mg/dL 39 H D 39 H Creatinine (0.70-1.30) mg/dL 1.8 H 1.7 H Estimated GFR/1.73 m2 (mL/min/1.73m2) 36.39 38.88 Glucose (74-106) mg/dL 109 H 91 Calcium (8.5-10.1) mg/dL 8.9 9.0 Magnesium (1.8-2.4) mg/dL 1.9 2.0 Ferritin (22-322) ng/mL Total Bilirubin (0.2-1.0) mg/dL 0.6 Conjugated Bilirubin (0.0-0.2) mg/dL 0.1 AST (15-37) U/L 20 ALT (16-63) U/L 33 Alkaline Phosphatase (46-116) U/L 71 Troponin I (<or=60) ng/L C-Reactive Protein (0.0-0.3) mg/dL 5.88 H NT-Pro-B Natriuret Pep (<300) pg/mL Total Protein (6.4-8.2) g/dL 6.0 L Albumin (3.4-5.0) g/dL 2.5 L Procalcitonin ng/mL TSH (0.36-3.74) uIU/mL C. albicans Allerg IgE kU/L M. racemosus Allrg IgE kU/L Urine Color (Yellow) Urine Clarity (Clear) Urine pH (5-8) Ur Specific [place] (1.005-1.025) Urine Protein (Negative) mg/dL Urine Ketones (Negative) mg/dL Urine Blood (Negative) Urine Nitrite (Negative) Urine Bilirubin (Negative) Urine Urobilinogen (Up TO 0.2) EU/dL Ur Leukocyte Esterase (Negative) Urine RBC (0-2) HPF Urine WBC (0-5) HPF Ur Epithelial Cells (Negative) HPF Urine Crystals (Negative) HPF Urine Bacteria (Negative) HPF Urine Casts (Negative) LPF Urine Mucus (Negative) Ur Culture Indicated? Urine Glucose (Negative) mg/dL Fluid Source Fluid Color Fluid Clarity Fluid WBC Fld Polynuclear WBCs % Fluid Mononuclear Cell Fluid Other Cells Vancomycin Trough Rheumatoid Factor (<12.0) IU/mL Cyclic Citrull Peptide (<5.0) U/mL ANNIE Titer ANNIE Titer 2 ANNIE Titer 3 ANNIE Interpretation (Negative) ANCA Immunofluorescen (Negative) ANCA Titer ANCA Pattern SS-A Antibody (<20.0) Units SS-B Antibody (<20.0) Units Scl-70 IgG Ab U Double Strand DNA Ab (<30.0) IU/mL Gram Stain Adenovirus DNA (Negative) Blastomyces Ag Result Blastomyces Ag Comment ng/mL COVID-19 Source SARS-CoV-2 (PCR) (Negative) Urine Histoplasma Ag U Histoplasma Ag Index ng/mL Human Metapneumovir RNA (Negative) Influenza Type A (PCR) (Negative) Influenza Type B (PCR) (Negative) L.pneumophila Antibody (Negative) Urine Legionella Ag (Negative) M. pneumoniae Source M. pneumoniae (PCR) Parainfluenza 1 (PCR) (Negative) Parainfluenza 2 (PCR) (Negative) Parainfluenza 3 (PCR) (Negative) Parainfluenza 4 (PCR) (Negative) Aspergillus Ag (EIA) (<0.5) index RSV (PCR) (Negative) Resp Viral Spec Desc Rhinovirus (PCR) (Negative) AFB Source AFB Culture Final Res Aerobic Culture Fungal Specimen Source B-(1,3)-D-Glucan Quant (<60 pg/mL) pg/mL B-(1,3)-D-Glucan Qual (Negative) Fungal Culture Status Fungal Culture Final Fungal Smear Result M. Tuberculosis PCR Path Cons Comment AFB Smear (Ref Lab) Add-On Test Request Miscellaneous Test Ref Test Specimen Type Ref Report Verification Range/Units 11/12/21 06:34 WBC (4.4-10.8) 10^3/uL 10.35 RBC (4.36-5.78) 10^6/uL 3.68 L Hgb (13.5-17.5) g/dL 12.1 L Hct (40.0-50.0) % 36.2 L MCV (80-95) fL 98.4 H MCH (27.0-33.0) pg 32.9 MCHC (32.0-36.0) % 33.4 RDW (11.8-14.1) % 12.6 Plt Count (130-400) 10^3/uL 288 MPV (8.0-11.0) fL 9.8 Immature Gran % 0.0 Neutrophils % 62.0 Band Neutrophils % 7 Lymphocytes % 9.0 Atypical Lymphs % 2 Monocytes % 8.0 Eosinophils % 2.0 Basophils % 0.0 Metamyelocytes % 7 Myelocytes % 3 Nucleated RBC % % 0 Absolute Neutrophils (1.2-6.7) 10^3/uL 7.14 H Absolute Lymphocytes (1.2-3.4) 10^3/uL 1.14 L Absolute Monocytes (0.1-0.8) 10^3/uL 0.83 H Absolute Eosinophils (0.0-0.7) 10^3/uL 0.21 Absolute Basophils (0.0-0.2) 10^3/uL 0.00 RBC Morphology Normal Basophilic Stippling ESR (0-20) mm/hr Sample Site ABG Sample Site ABG pH (7.35-7.45) ABG pCO2 (35-45) mmHg ABG pO2 (80-105) mmHg ABG HCO3 (22-26) mmol/L ABG Total CO2 (23-27) mmol/L ABG O2 Saturation (95-98) % ABG Base Excess (-2-3) mmol/L VBG Lactate (0.6-1.4) mmol/L Oxygen Liter Flow FiO2 FiO2 (liters per min) L Sodium (136-145) mmol/L Potassium (3.5-5.1) mmol/L Chloride (98-107) mmol/L Carbon Dioxide (21.0-32.0) mmol/L Anion Gap (3-11) mmol/L BUN (7-18) mg/dL Creatinine (0.70-1.30) mg/dL Estimated GFR/1.73 m2 (mL/min/1.73m2) Glucose (74-106) mg/dL Calcium (8.5-10.1) mg/dL Magnesium (1.8-2.4) mg/dL Ferritin (22-322) ng/mL Total Bilirubin (0.2-1.0) mg/dL Conjugated Bilirubin (0.0-0.2) mg/dL AST (15-37) U/L ALT (16-63) U/L Alkaline Phosphatase (46-116) U/L Troponin I (<or=60) ng/L C-Reactive Protein (0.0-0.3) mg/dL NT-Pro-B Natriuret Pep (<300) pg/mL Total Protein (6.4-8.2) g/dL Albumin (3.4-5.0) g/dL Procalcitonin ng/mL TSH (0.36-3.74) uIU/mL C. albicans Allerg IgE kU/L M. racemosus Allrg IgE kU/L Urine Color (Yellow) Urine Clarity (Clear) Urine pH (5-8) Ur Specific [place] (1.005-1.025) Urine Protein (Negative) mg/dL Urine Ketones (Negative) mg/dL Urine Blood (Negative) Urine Nitrite (Negative) Urine Bilirubin (Negative) Urine Urobilinogen (Up TO 0.2) EU/dL Ur Leukocyte Esterase (Negative) Urine RBC (0-2) HPF Urine WBC (0-5) HPF Ur Epithelial Cells (Negative) HPF Urine Crystals (Negative) HPF Urine Bacteria (Negative) HPF Urine Casts (Negative) LPF Urine Mucus (Negative) Ur Culture Indicated? Urine Glucose (Negative) mg/dL Fluid Source Fluid Color Fluid Clarity Fluid WBC Fld Polynuclear WBCs % Fluid Mononuclear Cell Fluid Other Cells Vancomycin Trough Rheumatoid Factor (<12.0) IU/mL Cyclic Citrull Peptide (<5.0) U/mL ANNIE Titer ANNIE Titer 2 ANNIE Titer 3 ANNIE Interpretation (Negative) ANCA Immunofluorescen (Negative) ANCA Titer ANCA Pattern SS-A Antibody (<20.0) Units SS-B Antibody (<20.0) Units Scl-70 IgG Ab U Double Strand DNA Ab (<30.0) IU/mL Gram Stain Adenovirus DNA (Negative) Blastomyces Ag Result Blastomyces Ag Comment ng/mL COVID-19 Source SARS-CoV-2 (PCR) (Negative) Urine Histoplasma Ag U Histoplasma Ag Index ng/mL Human Metapneumovir RNA (Negative) Influenza Type A (PCR) (Negative) Influenza Type B (PCR) (Negative) L.pneumophila Antibody (Negative) Urine Legionella Ag (Negative) M. pneumoniae Source M. pneumoniae (PCR) Parainfluenza 1 (PCR) (Negative) Parainfluenza 2 (PCR) (Negative) Parainfluenza 3 (PCR) (Negative) Parainfluenza 4 (PCR) (Negative) Aspergillus Ag (EIA) (<0.5) index RSV (PCR) (Negative) Resp Viral Spec Desc Rhinovirus (PCR) (Negative) AFB Source AFB Culture Final Res Aerobic Culture Fungal Specimen Source B-(1,3)-D-Glucan Quant (<60 pg/mL) pg/mL B-(1,3)-D-Glucan Qual (Negative) Fungal Culture Status Fungal Culture Final Fungal Smear Result M. Tuberculosis PCR Path Cons Comment AFB Smear (Ref Lab) Add-On Test Request Miscellaneous Test Ref Test Specimen Type Ref Report Verification
[2021-11-13 07:33] LABS: Anion Gap 7.9 mmol/L (3-11); BUN 39 mg/dL (7-18); CO2 31.1 mmol/L (21.0-32.0); CREATININE 1.9 mg/dL (0.70-1.30); Calcium 9.1 mg/dL (8.5-10.1); Chloride 101 mmol/L (98-107); Estimated GFR 34.19 (mL/min/1.73m2); Glucose 115 mg/dL (74-106); Magnesium 1.9 mg/dL (1.8-2.4); Potassium 4.5 mmol/L (3.5-5.1); Sodium 140 mmol/L (136-145)
[2021-11-13] MEDS: Albuterol/Ipratropium 3 ML UPD VIAL UPD ×3 (07:51→20:02)
[2021-11-13 07:56] LABS: Absolute Eosinophil Count 0.24 10^3/uL (0.0-0.7); Absolute Neutrophil Count 7.56 10^3/uL (1.2-6.7); Bands % 3
[2021-11-13 07:57] LABS: Absolute Lymphocyte Count 1.54 10^3/uL (1.2-3.4); Atypical Lymphocytes % 1; Diff Comment Manual Differential; Metamyelocytes % 8; Myelocytes % 2; RBC Morphology Normal
[2021-11-13] MEDS: Apixaban 5 MG TAB PO ×2 (08:47→20:02)
[2021-11-13] MEDS: Cetirizine 10 MG TAB 5 MG PO (08:47)
[2021-11-13] MEDS: Cholecalciferol (Vitamin D3) 1,000 UNIT TAB 2000 UNITS PO (08:47)
[2021-11-13] MEDS: Ascorbic Acid 500 MG TAB PO ×2 (08:47→20:01)
[2021-11-13] MEDS: guaiFENesin 600 MG TABCR 1200 MG PO ×2 (08:48→20:01)
[2021-11-13] MEDS: Furosemide 40 MG/4 ML VIAL IVP (08:48)
[2021-11-13] MEDS: Docusate Sodium 100 MG CAP PO ×2 (08:48→20:01)
[2021-11-13] MEDS: Fluticasone NASAL SPRAY 16 GM BTL NS ×2 (08:48→20:02)
[2021-11-13] MEDS: Finasteride 5 MG TAB PO (08:48)
[2021-11-13] MEDS: Nystatin POWDER 60 GM JAR TP ×2 (08:49→20:02)
[2021-11-13] MEDS: Polyethylene Glycol 3350 17 GM PACKET PO (08:49)
[2021-11-13] MEDS: Midodrine 2.5 MG TAB PO ×3 (08:49→20:01)
[2021-11-13] MEDS: Montelukast 10 MG TAB PO (08:49)
[2021-11-13] MEDS: predniSONE 5 MG TAB 7.5 MG PO (08:50)
[2021-11-13] MEDS: Sertraline 25 MG TAB PO (08:50)
[2021-11-13] MEDS: Potassium Chloride 20 MEQ TABCR PO ×2 (08:50→20:01)
--- NOTE | 2021-11-13 10:10 | CMPROGNOTE_ITS ---
- If Service Date Differs Date of service: 11/13/21 Time of Service: 10:10 Care Management Progress Note S/O: Jarrod was sitting up in his chair when CM met with him. He was pleasant and easy to engage in conversation. He's looking forward to a visit from his sister today. Jarrod will need a RX for PO voriconazole for fungal pneumonia on discharge and that outpatient expense per [facility] is $225.65 (no prior auth needed.) Per pt, affording that medication will be a hardship that he can barely swing but will, if there is no other choice. In addition, Jarrod continues to work with PT and c/o increased fatigue and sob with ambulation. Jarrod would prefer to go to a SNF for short term rehab and was accepted to [facility] and rehab last week. That referral was put on hold until the course of IV antifungal medication could be identified. CM is waiting to hear back from Dayana at [facility] and is hopeful that they will still consider his admission by the end of the week. A: Jarrod is an 81 year old male admitted to [facility] on 10/24/21 with Pneumonia, hypoxic respiratory failure P: Anticipate, Jarrod will go to a SNF for short term rehab prior to returning home. His sister will likely drive him home via private vehicle when ready vs facility transportation, if available. He will follow up with his PCP and discharge plan of care. CM will continue to follow.
--- NOTE | 2021-11-13 10:14 | PT.INTREAT ---
Date of service: 11/13/21 Time of Service: 09:52 PT Notes Visit Reasons: Pneumonia Inpatient Physical Therapy Treatment Note [facility] Date: 11/13/2021 PRECAUTIONS: Fall, Activity as tolerated SUBJECTIVE: Al is pleasant and agreeable to participating in PT. He reports that he is feeling neither better nor worse today. OBJECTIVE: PAIN: No c/o pain BED MOBILITY/TRANSFERS Sit-stand: I Stand-sit: I GAIT Assistive Device: FWW Weight bearing: Full Assist: S Distance: 300' in a.m.; 300' in p.m. Deviation: Standing rest x1, SOB VITALS: SaO2: 82-95% on 3-5L O2 via NC with gait training THEREX: Patient was instructed in several standing LE strengthening exercises, as per flow sheet. Patient fatigues and becomes SOB quickly with exercise, requiring frequent rests. TOILETING: Patient toileted with assist ASSESSMENT: Patient tolerated session with complaint of SOB with gait training, requiring increased supplemental oxygen due to decreasing oxygen saturation. He demonstrates good strength and independence with transfers at this time, although demonstrates general deconditioning and limited endurance, likely due to illness and length of hospitalization. PLAN: Continue with general conditioning for improved activity tolerance, as indicated. TREATMENT CODE/TIME: Session 1: 18 minutes; 03179 (09:52) Session 2: 17 minutes; [id number] (16:10)
--- NOTE | 2021-11-13 14:33 | W.PM.PROGNOT ---
Date of Service Date of service: 11/13/21 Time of Service: 14:33 Assessment and Plan Assessment and plan (1) Fungal pneumonia: Status: Acute Assessment and plan: Continue empiric micafungin. Discussed with Dr Rodrigues: we highly suspect aspergillus. D/c bactrim - silver stain negative. PO voriconazole 200 mg BID x 6 weeks is covered by Mr Solorzano's insurance: $226 copay. However, the patient will initially be going to a SNF - care management to notify SNF. (2) Acute respiratory failure with hypoxia: Status: Acute Assessment and plan: Improved. Continue mycafungin, diuresis. Encourage pulmonary toileting. (3) Polymyalgia rheumatica: Assessment and plan: Continue prednisone dose at 7.5 mg daily. On fentanyl 12 mcg/hr for pain control. (4) Hypotension: Status: Resolved Assessment and plan: Tolerating diuresis, flomax. On midodrine, which we might be able to wean off. BP not warranting other medications at this time. (5) Acute kidney injury superimposed on chronic kidney disease: Assessment and plan: Resolved. (6) DVT prophylaxis: Status: Acute Assessment and plan: On apixiban (7) Discharge planning issues: Status: Acute Assessment and plan: DNR/DNI. Continues to require hospitalization. PT, Palliative care consulted. Voriconazole coverage being verified. SNF on discharge. Subjective Subjective Interval history since last seen: Mr Solorzano says he is not worse than yesterday and is maybe a little better than yesterday. He is not short of breath talking to me. His cough is now only minimally productive. Denies dizziness, chest pain/pain in general, nausea. Has some abdominal discomfort from coughing. Exam Narrative Exam Narrative: General: elderly male who is looks even better than yesterday, A&Ox3 HEENT: EOMI, MMM Heart: RRR, no m/r/g Lungs: rales B, unchanged Abdomen: soft,nontender, nondistended Extremities: trace BLE edema, better Objective Last Vital Signs Temp 36.3 C L 11/13/21 12:18 Pulse 90 11/13/21 13:56 Resp 18 11/13/21 13:56 BP 120/77 11/13/21 12:18 Pulse Ox 93 11/13/21 13:56 Laboratory Results - last 24 hr 11/09/21 11/13/21 11/13/21 12:30 06:21 06:21 WBC 11.82 H RBC 3.90 L Hgb 12.6 L Hct 38.9 L MCV 99.7 H MCH 32.3 MCHC 32.4 RDW 12.5 Plt Count 306 MPV 9.7 Immature Gran % 0.0 Neutrophils % 61.0 Band Neutrophils % 3 Lymphocytes % 12.0 Atypical Lymphs % 1 Monocytes % 11.0 Eosinophils % 2.0 Basophils % 0.0 Metamyelocytes % 8 Myelocytes % 2 Nucleated RBC % 0 Absolute Neutrophils 7.56 H Absolute Lymphocytes 1.54 Absolute Monocytes 1.30 H Absolute Eosinophils 0.24 Absolute Basophils 0.00 RBC Morphology Normal Sodium 140 Potassium 4.5 Chloride 101 Carbon Dioxide 31.1 Anion Gap 7.9 BUN 39 H Creatinine 1.9 H Estimated GFR/1.73 m2 34.19 Glucose 115 H Calcium 9.1 Magnesium 1.9 Miscellaneous Test See Comments PAWSS Have you Been Recently Intoxicated or Drunk Within the Last 30 days?: No Have you Ever Experienced Previous Episodes of Alcohol Withdrawal?: No Have you ever Experienced Withdrawal Seizures?: No Have you ever Experienced Delirium Tremens(DT)s?: No Have you ever undergone Alcohol Rehabilitation Treatment (i.e, inpt ot outpatient treatment programs)?: No Have you ever Experienced Blackouts?: No Have you ever Combined Alcohol with other Downers within the last 90 days?: No Have you ever Combined Alcohol with any other Substance of Abuse during the last 90 days?: No Positive Blood Alcohol level on Presentation? [PCS.BAL]: No Evidence of Increased Autonomic Activity (i.e. HR>120, tremor, sweating, agitation, nausea)?: No Result: 0
[2021-11-13] MEDS: Lidocaine 5% Patch 1 PATCH TP (17:22)
[2021-11-13] MEDS: Tamsulosin 0.4 MG CAPCR 0.8 MG PO (21:51)
[2021-11-13] MEDS: rOPINIRole 1 MG TAB 2 MG PO (21:52)
[2021-11-13 23:57] LABS: Fungitell Qualitative Positive (Negative); Fungitell Quantitative Value 137 pg/mL (<60 pg/mL)
[2021-11-14] VITALS (10 sets, daily range): BP systolic 107–144; BP diastolic 72–90; PULSE 74–103; RESP 4–27; TEMP 35.4–36.7; O2SAT 88–98
[2021-11-14] MEDS: Lidocaine Patch Removal 1 EACH TD (05:37)
[2021-11-14] MEDS: Levothyroxine 75 MCG TAB PO (05:37)
[2021-11-14 06:50] LABS: HCT 36.8 % (40.0-50.0); HGB 12.2 g/dL (13.5-17.5); MCH 33.2 pg (27.0-33.0); MCHC 33.2 % (32.0-36.0); MCV 100.3 fL (80-95); MPV 9.7 fL (8.0-11.0); Nucleated RBC 0 %; RBC 3.67 10^6/uL (4.36-5.78); RDW 12.5 % (11.8-14.1); RDW-SD 45.9 fL; WBC 12.42 10^3/uL (4.4-10.8)
[2021-11-14 07:07] LABS: Anion Gap 8.9 mmol/L (3-11); BUN 38 mg/dL (7-18); CO2 30.1 mmol/L (21.0-32.0); CREATININE 1.7 mg/dL (0.70-1.30); Calcium 9.1 mg/dL (8.5-10.1); Chloride 101 mmol/L (98-107); Estimated GFR 38.88 (mL/min/1.73m2); Glucose 103 mg/dL (74-106); Magnesium 2.2 mg/dL (1.8-2.4); Potassium 4.5 mmol/L (3.5-5.1); Sodium 140 mmol/L (136-145)
[2021-11-14 07:30] LABS: Absolute Basophil Count 0.12 10^3/uL (0.0-0.2); Absolute Eosinophil Count 0.25 10^3/uL (0.0-0.7); Absolute Lymphocyte Count 1.61 10^3/uL (1.2-3.4); Absolute Monocyte Count 1.37 10^3/uL (0.1-0.8); Diff Comment Manual Differential; Metamyelocytes % 2; Myelocytes % 2; Platelet Count 288 10^3/uL (130-400)
[2021-11-14 07:31] LABS: Polychromasia Present
[2021-11-14] MEDS: Furosemide 40 MG/4 ML VIAL IVP (08:07)
[2021-11-14] MEDS: Nystatin POWDER 60 GM JAR TP ×2 (08:08→19:49)
[2021-11-14] MEDS: predniSONE 5 MG TAB 7.5 MG PO (08:08)
[2021-11-14] MEDS: Cholecalciferol (Vitamin D3) 1,000 UNIT TAB 2000 UNITS PO (08:09)
[2021-11-14] MEDS: guaiFENesin 600 MG TABCR 1200 MG PO ×2 (08:09→19:50)
[2021-11-14] MEDS: Cetirizine 10 MG TAB 5 MG PO (08:09)
[2021-11-14] MEDS: Midodrine 2.5 MG TAB PO ×3 (08:09→19:50)
[2021-11-14] MEDS: Docusate Sodium 100 MG CAP PO ×2 (08:09→19:50)
[2021-11-14] MEDS: Montelukast 10 MG TAB PO (08:09)
[2021-11-14] MEDS: Sertraline 25 MG TAB PO (08:10)
[2021-11-14] MEDS: Finasteride 5 MG TAB PO (08:10)
[2021-11-14] MEDS: Fluticasone NASAL SPRAY 16 GM BTL NS ×2 (08:10→19:49)
[2021-11-14] MEDS: Ascorbic Acid 500 MG TAB PO ×2 (08:10→19:50)
[2021-11-14] MEDS: Potassium Chloride 20 MEQ TABCR PO ×2 (08:10→19:50)
[2021-11-14] MEDS: Pantoprazole 40 MG TABCR PO (08:10)
[2021-11-14] MEDS: Apixaban 5 MG TAB PO ×2 (08:10→19:50)
[2021-11-14] MEDS: Albuterol/Ipratropium 3 ML UPD VIAL UPD ×2 (08:18→19:51)
[2021-11-14] MEDS: Normal Saline Flush 10 ML SYR IVP (08:26)
--- NOTE | 2021-11-14 08:55 | PGE_ITS ---
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 He has been treated for a recurrent sinusitis and received extended courses of several antibiotics for this as well as a pneumonia. His Fungitell return very positive and subsequent testing was also positive and so steroids were discontinued, although low dose prednisone has been restarted out of concern for adrenal insufficiency and his PMR. He also grew yeast that was non crypto and not dimorphic on culture. His silver stain was negative and there were no malignant cells seen on path. I have been empirically treating with micafungin but has since been switched to PO voriconazole. The bacterial stain and culture is negative. The preliminary fungal and AFB stain were also negative. The cell diff was relatively normal. His sputum does show yeast that is not dimorphic and not cryptococcus. 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 Voriconazole will cover both of these fungi. Fungal Pneumonia - Fungitell returned very positive and repeats are also high - Aspergillus Ag negative - BAL cultures with no fungi, bacteria or AFB organisms seen - BAL cell diff with 11 lymphocytes - normal - fungal sputum finds yeast - non cryypto and non dimorphic - autoimmune panel negative - urine histo, urine blasto negative - repeat blood cultures no growth to date - continue Mucinex, VibraPEP, prn albuterol neb - voriconazole (200mg bid for 6-12 weeks) - will need LFT's weekly for the first month then monthly - will need a voriconazole trough tomorrow - order placed - follow up with me is established Sinusitis - has been treated by now with all the antibiotics he has been on. 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 He wishes he was doing better than he is. We talked that this is a process and will take time to recover. We also discussed that he likely has a new normal and that there is likely to be some scarring left over from this infection. Exam Narrative Exam Narrative: Gen: NAD, normal respiratory effort, well-nourished HENT: PERRL, nasal turbinates normal without erythema or inflammation, moist oral mucosa, Mallampati 2, No LAD or JVD Chest: No respiratory distress, normal appearance of chest, rales diffusely in mid and lower lung zones, no wheezing Heart: regular rate and rhythym, no murmurs, rubs or gallops Abdomen: Non-distended, soft, non tender Extremities: No clubbing, cyanosis, rashes. LE edema Neuro: AAOx3 , non focal Psych: cooperative, appropriate mental affect Objective Last Vital Signs Temp 36.1 C L 11/14/21 07:50 Pulse 83 11/14/21 07:50 Resp 16 11/14/21 08:18 BP 132/76 11/14/21 07:50 Pulse Ox 93 11/14/21 08:18 Laboratory Results - last 24 hr 11/12/21 11/14/21 11/14/21 06:34 06:11 06:11 WBC 12.42 H RBC 3.67 L Hgb 12.2 L Hct 36.8 L MCV 100.3 H MCH 33.2 H MCHC 33.2 RDW 12.5 Plt Count 288 MPV 9.7 Immature Gran % See Differential Neutrophils % 67.0 Band Neutrophils % 23 Lymphocytes % 13.0 Monocytes % 11.0 Eosinophils % 2.0 Basophils % 1.0 Metamyelocytes % 2 Myelocytes % 2 Nucleated RBC % 0 Absolute Neutrophils 11.18 H Absolute Lymphocytes 1.61 Absolute Monocytes 1.37 H Absolute Eosinophils 0.25 Absolute Basophils 0.12 RBC Morphology See Below Polychromasia Present Sodium 140 Potassium 4.5 Chloride 101 Carbon Dioxide 30.1 Anion Gap 8.9 BUN 38 H Creatinine 1.7 H Estimated GFR/1.73 m2 38.88 Glucose 103 Calcium 9.1 Magnesium 2.2 A. fumigatus IgG Ab 11.1 Results Medications Medications: Active Medications Generic Name Dose Route Start Last Admin Trade Name Freq PRN Reason Stop Dose Admin Acetaminophen 0 mg 10/24/21 18:34 11/10/21 21:48 Acetaminophen 325 Mg Tab PO 650 mg Q4H PRN PRN Administration Acetaminophen/Aspirin/Caffeine 2 each 11/02/21 17:01 Acetaminophen 250 Mg/Aspirin 250 Mg/Caffeine 65 Mg Tab PO Q6H PRN PRN Al Hydrox/Mg Hydrox/Simethicone 30 ml 10/28/21 06:00 10/28/21 06:21 Mylanta Suspension 30 Ml Cup PO 30 ml Q4H PRN PRN Administration Albuterol Sulfate 2.5 mg 10/24/21 18:34 11/02/21 06:38 Albuterol 2.5 Mg/3 Ml Inh Soln Vial UPD 2.5 mg Q2H PRN PRN Administration Albuterol/Ipratropium 3 ml 11/09/21 13:15 Albuterol/Ipratropium 3 Ml Upd Vial UPD Q2H PRN PRN for SOB, wheezing, or cough Albuterol/Ipratropium 3 ml 11/09/21 20:00 11/14/21 08:18 Albuterol/Ipratropium 3 Ml Upd Vial UPD 3 ml TID DEVENDRA Administration Apixaban 5 mg 10/24/21 20:00 11/14/21 08:10 Apixaban 5 Mg Tab PO 5 mg BID DEVENDRA Administration Ascorbic Acid 500 mg 11/02/21 20:00 11/14/21 08:10 Ascorbic Acid 500 Mg Tab PO 500 mg BID DEVENDRA Administration Cetirizine HCl 5 mg 10/28/21 12:30 11/14/21 08:09 Cetirizine 10 Mg Tab PO 5 mg DAILY DEVENDRA Administration Cholecalciferol 2,000 units 11/03/21 08:30 11/14/21 08:09 Cholecalciferol (Vitamin D3) 1,000 Unit Tab PO 2,000 units DAILY DEVENDRA Administration Dimethicone/Zinc Oxide 0 gm 10/24/21 18:34 Christina Protect Cream 142 Gm Tube TP PRN PRN Docusate Sodium 100 mg 11/04/21 20:00 11/14/21 08:09 Docusate Sodium 100 Mg Cap PO 100 mg BID DEVENDRA Administration Fentanyl 12 mcg 11/12/21 08:00 11/12/21 07:56 Fentanyl 12 Mcg Patch TD 12 mcg Q72H DEVENDRA Administration Finasteride 5 mg 11/03/21 15:10 11/14/21 08:10 Finasteride 5 Mg Tab PO 5 mg DAILY DEVENDRA Administration Fluticasone Propionate 16 gm 10/25/21 08:30 11/14/21 08:10 Fluticasone Nasal [place] 16 Gm Btl NS 2 sprays BID DEVENDRA Administration Furosemide 40 mg 11/13/21 08:30 11/14/21 08:07 Furosemide 40 Mg/4 Ml Vial IVP 40 mg DAILY DEVENDRA Administration Guaifenesin 1,200 mg 10/25/21 08:30 11/14/21 08:09 Guaifenesin 600 Mg Tabcr PO 1,200 mg BID DEVENDRA Administration Micafungin Sodium 100 mg/ 100 mls @ 100 mls/hr 11/07/21 14:00 11/13/21 15:10 Sodium Chloride IVPB 100 mls/hr Q24H DEVENDRA Administration Ipratropium [place] 0 ml 10/25/21 08:30 11/14/21 08:10 Ipratropium 0.03% 30 Ml Btl NS 2 sprays BID DEVENDRA Administration Lactobacillus Acidophilus/Casei 1 cap 11/03/21 08:30 11/14/21 08:08 L. Acidophilus, Casei, Rhamnosus Cap PO 1 cap DAILY DEVENDRA Administration Levothyroxine Sodium 75 mcg 10/26/21 06:00 11/14/21 05:37 Levothyroxine 75 Mcg Tab PO 75 mcg DAILY@0600 DEVENDRA Administration Lidocaine 1 patch 11/01/21 18:00 11/13/21 17:22 Lidocaine 5% Patch TP 1 patch Q24H DEVENDRA Administration Midodrine 2.5 mg 11/02/21 15:00 11/14/21 08:09 Midodrine 2.5 Mg Tab PO 2.5 mg TID DEVENDRA Administration Miscellaneous 1 each 11/02/21 06:00 11/14/21 05:37 Lidocaine Patch Removal TD 1 each Q24H DEVENDRA Administration Montelukast Sodium 10 mg 10/25/21 08:30 11/14/21 08:09 Montelukast 10 Mg Tab PO 10 mg DAILY DEVENDRA Administration Nystatin 0 gm 11/05/21 20:00 11/14/21 08:08 Nystatin Powder 60 Gm Jar TP 1 applic BID DEVENDRA Administration Ondansetron HCl 4 mg 10/28/21 12:42 Ondansetron 4 Mg/2 Ml Vial IVP Q4H PRN PRN Pantoprazole Sodium 40 mg 10/26/21 07:30 11/14/21 08:10 Pantoprazole 40 Mg Tabcr PO 40 mg DAILY@0730 DEVENDRA Administration Polyethylene Glycol 17 gm 11/04/21 14:45 11/14/21 08:12 Polyethylene Glycol 3350 17 Gm Packet PO Not Given DAILY DEVENDRA Potassium Chloride 20 meq 11/06/21 11:05 11/14/21 08:10 Potassium Chloride 20 Meq Tabcr PO 20 meq BID DEVENDRA Administration Prednisone 7.5 mg 11/11/21 08:30 11/14/21 08:08 Prednisone 5 Mg Tab PO 7.5 mg DAILY DEVENDRA Administration Ropinirole HCl 2 mg 10/24/21 22:00 11/13/21 21:52 Ropinirole 1 Mg Tab PO 2 mg HS DEVENDRA Administration Sertraline HCl 25 mg 10/25/21 08:30 11/14/21 08:10 Sertraline 25 Mg Tab PO 25 mg DAILY DEVENDRA Administration Sodium Chloride 0 ml 10/24/21 20:59 11/14/21 08:26 Normal Saline Flush 10 Ml Syr IVP 20 ml PRN PRN Administration Tamsulosin HCl 0.8 mg 11/03/21 22:00 11/13/21 21:51 Tamsulosin 0.4 Mg Capcr PO 0.8 mg HS DEVENDRA Administration Allergies Sulfa (Sulfonamide Antibiotics) Adverse Reaction (Intermediate, Verified 10/24/21 16:31) Its been along time cat dander Adverse Reaction (Mild, Verified 10/24/21 16:31) penicillin V Adverse Reaction (Mild, Verified 10/24/21 16:31) nausea salicylates Adverse Reaction (Mild, Verified 10/24/21 16:31) up set stomach Labs Result Diagrams: 11/18/21 09:00 11/18/21 09:00 Labs: 11/07/21 12:55 Blood Blood Culture - Final NO GROWTH 120 HOURS 11/07/21 12:45 Blood Blood Culture - Final NO GROWTH 120 HOURS 11/02/21 15:30 Sputum Sputum Culture - Final Gram Negative Shannan,Mixed Normal Shannan 11/02/21 15:30 Sputum Gram Stain - Final 10/29/21 23:00 Blood Blood Culture - Final NO GROWTH 120 HOURS 10/29/21 22:45 Blood Blood Culture - Final NO GROWTH 120 HOURS 10/28/21 14:19 Blood Blood Culture - Final NO GROWTH 120 HOURS 10/28/21 14:19 Blood Blood Culture - Final NO GROWTH 120 HOURS 10/30/21 10:17 Nasopharynx Influenza Types A,B Antigen - Final 10/24/21 17:39 Blood Blood Culture - Final NO GROWTH 120 HOURS 10/24/21 17:30 Blood Blood Culture - Final NO GROWTH 120 HOURS 10/24/21 18:55 Nose MRSA Screen - Final Laboratory Tests Range/Units 10/24/21 10/24/21 10/24/21 16:55 16:55 16:55 WBC (4.4-10.8) 10^3/uL 11.13 H RBC (4.36-5.78) 10^6/uL 3.91 L Hgb (13.5-17.5) g/dL 13.1 L Hct (40.0-50.0) % 39.0 L MCV (80-95) fL 99.7 H MCH (27.0-33.0) pg 33.5 H MCHC (32.0-36.0) % 33.6 RDW (11.8-14.1) % 12.4 Plt Count (130-400) 10^3/uL 133 D MPV (8.0-11.0) fL 10.0 Immature Gran % 2.3 Neutrophils % 89.6 Band Neutrophils % Lymphocytes % 2.8 Atypical Lymphs % Monocytes % 4.9 Eosinophils % 0.2 Basophils % 0.2 Metamyelocytes % Myelocytes % Nucleated RBC % % 0 Absolute Neutrophils (1.2-6.7) 10^3/uL 9.97 H Absolute Lymphocytes (1.2-3.4) 10^3/uL 0.31 L Absolute Monocytes (0.1-0.8) 10^3/uL 0.55 Absolute Eosinophils (0.0-0.7) 10^3/uL 0.02 Absolute Basophils (0.0-0.2) 10^3/uL 0.02 RBC Morphology Polychromasia Basophilic Stippling ESR (0-20) mm/hr Sample Site ABG Sample Site ABG pH (7.35-7.45) ABG pCO2 (35-45) mmHg ABG pO2 (80-105) mmHg ABG HCO3 (22-26) mmol/L ABG Total CO2 (23-27) mmol/L ABG O2 Saturation (95-98) % ABG Base Excess (-2-3) mmol/L VBG Lactate (0.6-1.4) mmol/L Oxygen Liter Flow FiO2 FiO2 (liters per min) L Sodium (136-145) mmol/L 135 L Potassium (3.5-5.1) mmol/L 4.1 Chloride (98-107) mmol/L 99 Carbon Dioxide (21.0-32.0) mmol/L 31.1 Anion Gap (3-11) mmol/L 4.9 BUN (7-18) mg/dL 30 H Creatinine (0.70-1.30) mg/dL 1.7 H Estimated GFR/1.73 m2 (mL/min/1.73m2) 38.88 Glucose (74-106) mg/dL 107 H Calcium (8.5-10.1) mg/dL 8.2 L Magnesium (1.8-2.4) mg/dL 1.8 Ferritin (22-322) ng/mL Total Bilirubin (0.2-1.0) mg/dL 0.8 Conjugated Bilirubin (0.0-0.2) mg/dL AST (15-37) U/L 20 ALT (16-63) U/L 18 Alkaline Phosphatase (46-116) U/L 47 Troponin I (<or=60) ng/L < 50 C-Reactive Protein (0.0-0.3) mg/dL NT-Pro-B Natriuret Pep (<300) pg/mL 658 H Total Protein (6.4-8.2) g/dL 5.9 L Albumin (3.4-5.0) g/dL 3.0 L Procalcitonin ng/mL TSH (0.36-3.74) uIU/mL C. albicans Allerg IgE kU/L M. racemosus Allrg IgE kU/L Urine Color (Yellow) Urine Clarity (Clear) Urine pH (5-8) Ur Specific [place] (1.005-1.025) Urine Protein (Negative) mg/dL Urine Ketones (Negative) mg/dL Urine Blood (Negative) Urine Nitrite (Negative) Urine Bilirubin (Negative) Urine Urobilinogen (Up TO 0.2) EU/dL Ur Leukocyte Esterase (Negative) Urine RBC (0-2) HPF Urine WBC (0-5) HPF Ur Epithelial Cells (Negative) HPF Urine Crystals (Negative) HPF Urine Bacteria (Negative) HPF Urine Casts (Negative) LPF Urine Mucus (Negative) Ur Culture Indicated? Urine Glucose (Negative) mg/dL Fluid Source Fluid Color Fluid Clarity Fluid WBC Fld Polynuclear WBCs % Fluid Mononuclear Cell Fluid Other Cells Vancomycin Trough Rheumatoid Factor (<12.0) IU/mL Cyclic Citrull Peptide (<5.0) U/mL ANNIE Titer ANNIE Titer 2 ANNIE Titer 3 ANNIE Interpretation (Negative) ANCA Immunofluorescen (Negative) ANCA Titer ANCA Pattern SS-A Antibody (<20.0) Units SS-B Antibody (<20.0) Units Scl-70 IgG Ab U Double Strand DNA Ab (<30.0) IU/mL Gram Stain Adenovirus DNA (Negative) Blastomyces Ag Result Blastomyces Ag Comment ng/mL COVID-19 Source Nasal/Nares SARS-CoV-2 (PCR) (Negative) Negative Urine Histoplasma Ag U Histoplasma Ag Index ng/mL Human Metapneumovir RNA (Negative) Influenza Type A (PCR) (Negative) Negative Influenza Type B (PCR) (Negative) Negative L.pneumophila Antibody (Negative) Urine Legionella Ag (Negative) M. pneumoniae Source M. pneumoniae (PCR) Parainfluenza 1 (PCR) (Negative) Parainfluenza 2 (PCR) (Negative) Parainfluenza 3 (PCR) (Negative) Parainfluenza 4 (PCR) (Negative) Aspergillus Ag (EIA) (<0.5) index A. fumigatus IgG Ab (<=102) mg/L RSV (PCR) (Negative) Negative Resp Viral Spec Desc Rhinovirus (PCR) (Negative) AFB Source AFB Culture Final Res Aerobic Culture Fungal Specimen Source B-(1,3)-D-Glucan Quant (<60 pg/mL) pg/mL B-(1,3)-D-Glucan Qual (Negative) Fungal Culture Status Fungal Culture Final Fungal Smear Result M. Tuberculosis PCR Path Cons Comment AFB Smear (Ref Lab) Add-On Test Request Miscellaneous Test Ref Test Specimen Type Ref Report Verification Range/Units 10/24/21 10/24/21 10/24/21 17:12 17:12 17:20 WBC (4.4-10.8) 10^3/uL RBC (4.36-5.78) 10^6/uL Hgb (13.5-17.5) g/dL Hct (40.0-50.0) % MCV (80-95) fL MCH (27.0-33.0) pg MCHC (32.0-36.0) % RDW (11.8-14.1) % Plt Count (130-400) 10^3/uL MPV (8.0-11.0) fL Immature Gran % Neutrophils % Band Neutrophils % Lymphocytes % Atypical Lymphs % Monocytes % Eosinophils % Basophils % Metamyelocytes % Myelocytes % Nucleated RBC % % Absolute Neutrophils (1.2-6.7) 10^3/uL Absolute Lymphocytes (1.2-3.4) 10^3/uL Absolute Monocytes (0.1-0.8) 10^3/uL Absolute Eosinophils (0.0-0.7) 10^3/uL Absolute Basophils (0.0-0.2) 10^3/uL RBC Morphology Polychromasia Basophilic Stippling ESR (0-20) mm/hr Sample Site ABG Sample Site ABG pH (7.35-7.45) ABG pCO2 (35-45) mmHg ABG pO2 (80-105) mmHg ABG HCO3 (22-26) mmol/L ABG Total CO2 (23-27) mmol/L ABG O2 Saturation (95-98) % ABG Base Excess (-2-3) mmol/L VBG Lactate (0.6-1.4) mmol/L 2.2 H* Oxygen Liter Flow FiO2 FiO2 (liters per min) L Sodium (136-145) mmol/L Potassium (3.5-5.1) mmol/L Chloride (98-107) mmol/L Carbon Dioxide (21.0-32.0) mmol/L Anion Gap (3-11) mmol/L BUN (7-18) mg/dL Creatinine (0.70-1.30) mg/dL Estimated GFR/1.73 m2 (mL/min/1.73m2) Glucose (74-106) mg/dL Calcium (8.5-10.1) mg/dL Magnesium (1.8-2.4) mg/dL Ferritin (22-322) ng/mL Total Bilirubin (0.2-1.0) mg/dL Conjugated Bilirubin (0.0-0.2) mg/dL AST (15-37) U/L ALT (16-63) U/L Alkaline Phosphatase (46-116) U/L Troponin I (<or=60) ng/L C-Reactive Protein (0.0-0.3) mg/dL NT-Pro-B Natriuret Pep (<300) pg/mL Total Protein (6.4-8.2) g/dL Albumin (3.4-5.0) g/dL Procalcitonin ng/mL 0.2 TSH (0.36-3.74) uIU/mL C. albicans Allerg IgE kU/L M. racemosus Allrg IgE kU/L Urine Color (Yellow) Yellow Urine Clarity (Clear) Clear Urine pH (5-8) 6.0 Ur Specific [place] (1.005-1.025) 1.015 Urine Protein (Negative) mg/dL Negative Urine Ketones (Negative) mg/dL Negative Urine Blood (Negative) Moderate H Urine Nitrite (Negative) Negative Urine Bilirubin (Negative) Negative Urine Urobilinogen (Up TO 0.2) EU/dL 0.2 Ur Leukocyte Esterase (Negative) Negative Urine RBC (0-2) HPF >50 H Urine WBC (0-5) HPF 0-2 Ur Epithelial Cells (Negative) HPF Few Urine Crystals (Negative) HPF Negative Urine Bacteria (Negative) HPF Negative Urine Casts (Negative) LPF Negative Urine Mucus (Negative) Trace Ur Culture Indicated? No Urine Glucose (Negative) mg/dL Negative Fluid Source Fluid Color Fluid Clarity Fluid WBC Fld Polynuclear WBCs % Fluid Mononuclear Cell Fluid Other Cells Vancomycin Trough Rheumatoid Factor (<12.0) IU/mL Cyclic Citrull Peptide (<5.0) U/mL ANNIE Titer ANNIE Titer 2 ANNIE Titer 3 ANNIE Interpretation (Negative) ANCA Immunofluorescen (Negative) ANCA Titer ANCA Pattern SS-A Antibody (<20.0) Units SS-B Antibody (<20.0) Units Scl-70 IgG Ab U Double Strand DNA Ab (<30.0) IU/mL Gram Stain Adenovirus DNA (Negative) Blastomyces Ag Result Blastomyces Ag Comment ng/mL COVID-19 Source SARS-CoV-2 (PCR) (Negative) Urine Histoplasma Ag U Histoplasma Ag Index ng/mL Human Metapneumovir RNA (Negative) Influenza Type A (PCR) (Negative) Influenza Type B (PCR) (Negative) L.pneumophila Antibody (Negative) Urine Legionella Ag (Negative) M. pneumoniae Source M. pneumoniae (PCR) Parainfluenza 1 (PCR) (Negative) Parainfluenza 2 (PCR) (Negative) Parainfluenza 3 (PCR) (Negative) Parainfluenza 4 (PCR) (Negative) Aspergillus Ag (EIA) (<0.5) index A. fumigatus IgG Ab (<=102) mg/L RSV (PCR) (Negative) Resp Viral Spec Desc Rhinovirus (PCR) (Negative) AFB Source AFB Culture Final Res Aerobic Culture Fungal Specimen Source B-(1,3)-D-Glucan Quant (<60 pg/mL) pg/mL B-(1,3)-D-Glucan Qual (Negative) Fungal Culture Status Fungal Culture Final Fungal Smear Result M. Tuberculosis PCR Path Cons Comment AFB Smear (Ref Lab) Add-On Test Request Miscellaneous Test Ref Test Specimen Type Ref Report Verification Range/Units 10/25/21 10/25/21 10/26/21 06:45 06:45 06:26 WBC (4.4-10.8) 10^3/uL 8.35 RBC (4.36-5.78) 10^6/uL 3.56 L Hgb (13.5-17.5) g/dL 11.9 L Hct (40.0-50.0) % 36.0 L MCV (80-95) fL 101.1 H MCH (27.0-33.0) pg 33.4 H MCHC (32.0-36.0) % 33.1 RDW (11.8-14.1) % 12.4 Plt Count (130-400) 10^3/uL 104 L MPV (8.0-11.0) fL 10.3 Immature Gran % 2.3 Neutrophils % 80.6 Band Neutrophils % Lymphocytes % 8.5 Atypical Lymphs % Monocytes % 4.8 Eosinophils % 3.4 Basophils % 0.4 Metamyelocytes % Myelocytes % Nucleated RBC % % 0 Absolute Neutrophils (1.2-6.7) 10^3/uL 6.74 H Absolute Lymphocytes (1.2-3.4) 10^3/uL 0.71 L Absolute Monocytes (0.1-0.8) 10^3/uL 0.40 Absolute Eosinophils (0.0-0.7) 10^3/uL 0.28 Absolute Basophils (0.0-0.2) 10^3/uL 0.03 RBC Morphology Polychromasia Basophilic Stippling ESR (0-20) mm/hr Sample Site ABG Sample Site ABG pH (7.35-7.45) ABG pCO2 (35-45) mmHg ABG pO2 (80-105) mmHg ABG HCO3 (22-26) mmol/L ABG Total CO2 (23-27) mmol/L ABG O2 Saturation (95-98) % ABG Base Excess (-2-3) mmol/L VBG Lactate (0.6-1.4) mmol/L Oxygen Liter Flow FiO2 FiO2 (liters per min) L Sodium (136-145) mmol/L 137 138 Potassium (3.5-5.1) mmol/L 3.1 L D 3.1 L Chloride (98-107) mmol/L 101 102 Carbon Dioxide (21.0-32.0) mmol/L 29.7 26.3 Anion Gap (3-11) mmol/L 6.3 9.7 BUN (7-18) mg/dL 28 H 28 H Creatinine (0.70-1.30) mg/dL 1.6 H 1.6 H Estimated GFR/1.73 m2 (mL/min/1.73m2) 41.69 41.69 Glucose (74-106) mg/dL 84 134 H Calcium (8.5-10.1) mg/dL 8.1 L 8.0 L Magnesium (1.8-2.4) mg/dL Ferritin (22-322) ng/mL Total Bilirubin (0.2-1.0) mg/dL Conjugated Bilirubin (0.0-0.2) mg/dL AST (15-37) U/L ALT (16-63) U/L Alkaline Phosphatase (46-116) U/L Troponin I (<or=60) ng/L C-Reactive Protein (0.0-0.3) mg/dL NT-Pro-B Natriuret Pep (<300) pg/mL Total Protein (6.4-8.2) g/dL Albumin (3.4-5.0) g/dL Procalcitonin ng/mL TSH (0.36-3.74) uIU/mL C. albicans Allerg IgE kU/L M. racemosus Allrg IgE kU/L Urine Color (Yellow) Urine Clarity (Clear) Urine pH (5-8) Ur Specific [place] (1.005-1.025) Urine Protein (Negative) mg/dL Urine Ketones (Negative) mg/dL Urine Blood (Negative) Urine Nitrite (Negative) Urine Bilirubin (Negative) Urine Urobilinogen (Up TO 0.2) EU/dL Ur Leukocyte Esterase (Negative) Urine RBC (0-2) HPF Urine WBC (0-5) HPF Ur Epithelial Cells (Negative) HPF Urine Crystals (Negative) HPF Urine Bacteria (Negative) HPF Urine Casts (Negative) LPF Urine Mucus (Negative) Ur Culture Indicated? Urine Glucose (Negative) mg/dL Fluid Source Fluid Color Fluid Clarity Fluid WBC Fld Polynuclear WBCs % Fluid Mononuclear Cell Fluid Other Cells Vancomycin Trough Rheumatoid Factor (<12.0) IU/mL Cyclic Citrull Peptide (<5.0) U/mL ANNIE Titer ANNIE Titer 2 ANNIE Titer 3 ANNIE Interpretation (Negative) ANCA Immunofluorescen (Negative) ANCA Titer ANCA Pattern SS-A Antibody (<20.0) Units SS-B Antibody (<20.0) Units Scl-70 IgG Ab U Double Strand DNA Ab (<30.0) IU/mL Gram Stain Adenovirus DNA (Negative) Blastomyces Ag Result Blastomyces Ag Comment ng/mL COVID-19 Source SARS-CoV-2 (PCR) (Negative) Urine Histoplasma Ag U Histoplasma Ag Index ng/mL Human Metapneumovir RNA (Negative) Influenza Type A (PCR) (Negative) Influenza Type B (PCR) (Negative) L.pneumophila Antibody (Negative) Urine Legionella Ag (Negative) M. pneumoniae Source M. pneumoniae (PCR) Parainfluenza 1 (PCR) (Negative) Parainfluenza 2 (PCR) (Negative) Parainfluenza 3 (PCR) (Negative) Parainfluenza 4 (PCR) (Negative) Aspergillus Ag (EIA) (<0.5) index A. fumigatus IgG Ab (<=102) mg/L RSV (PCR) (Negative) Resp Viral Spec Desc Rhinovirus (PCR) (Negative) AFB Source AFB Culture Final Res Aerobic Culture Fungal Specimen Source B-(1,3)-D-Glucan Quant (<60 pg/mL) pg/mL B-(1,3)-D-Glucan Qual (Negative) Fungal Culture Status Fungal Culture Final Fungal Smear Result M. Tuberculosis PCR Path Cons Comment AFB Smear (Ref Lab) Add-On Test Request Miscellaneous Test Ref Test Specimen Type Ref Report Verification Range/Units 10/26/21 10/26/21 10/26/21 06:26 06:26 06:26 WBC (4.4-10.8) 10^3/uL 9.40 RBC (4.36-5.78) 10^6/uL 3.46 L Hgb (13.5-17.5) g/dL 11.5 L Hct (40.0-50.0) % 34.7 L MCV (80-95) fL 100.3 H MCH (27.0-33.0) pg 33.2 H MCHC (32.0-36.0) % 33.1 RDW (11.8-14.1) % 12.5 Plt Count (130-400) 10^3/uL 116 L MPV (8.0-11.0) fL 10.5 Immature Gran % 1.9 Neutrophils % 90.0 Band Neutrophils % Lymphocytes % 4.4 Atypical Lymphs % Monocytes % 3.5 Eosinophils % 0.1 Basophils % 0.1 Metamyelocytes % Myelocytes % Nucleated RBC % % 0 Absolute Neutrophils (1.2-6.7) 10^3/uL 8.46 H Absolute Lymphocytes (1.2-3.4) 10^3/uL 0.41 L Absolute Monocytes (0.1-0.8) 10^3/uL 0.33 Absolute Eosinophils (0.0-0.7) 10^3/uL 0.01 Absolute Basophils (0.0-0.2) 10^3/uL 0.01 RBC Morphology Polychromasia Basophilic Stippling ESR (0-20) mm/hr Sample Site ABG Sample Site ABG pH (7.35-7.45) ABG pCO2 (35-45) mmHg ABG pO2 (80-105) mmHg ABG HCO3 (22-26) mmol/L ABG Total CO2 (23-27) mmol/L ABG O2 Saturation (95-98) % ABG Base Excess (-2-3) mmol/L VBG Lactate (0.6-1.4) mmol/L Oxygen Liter Flow FiO2 FiO2 (liters per min) L Sodium (136-145) mmol/L Potassium (3.5-5.1) mmol/L Chloride (98-107) mmol/L Carbon Dioxide (21.0-32.0) mmol/L Anion Gap (3-11) mmol/L BUN (7-18) mg/dL Creatinine (0.70-1.30) mg/dL Estimated GFR/1.73 m2 (mL/min/1.73m2) Glucose (74-106) mg/dL Calcium (8.5-10.1) mg/dL Magnesium (1.8-2.4) mg/dL 2.0 Ferritin (22-322) ng/mL Total Bilirubin (0.2-1.0) mg/dL Conjugated Bilirubin (0.0-0.2) mg/dL AST (15-37) U/L ALT (16-63) U/L Alkaline Phosphatase (46-116) U/L Troponin I (<or=60) ng/L C-Reactive Protein (0.0-0.3) mg/dL NT-Pro-B Natriuret Pep (<300) pg/mL Total Protein (6.4-8.2) g/dL Albumin (3.4-5.0) g/dL Procalcitonin ng/mL TSH (0.36-3.74) uIU/mL C. albicans Allerg IgE kU/L M. racemosus Allrg IgE kU/L Urine Color (Yellow) Urine Clarity (Clear) Urine pH (5-8) Ur Specific [place] (1.005-1.025) Urine Protein (Negative) mg/dL Urine Ketones (Negative) mg/dL Urine Blood (Negative) Urine Nitrite (Negative) Urine Bilirubin (Negative) Urine Urobilinogen (Up TO 0.2) EU/dL Ur Leukocyte Esterase (Negative) Urine RBC (0-2) HPF Urine WBC (0-5) HPF Ur Epithelial Cells (Negative) HPF Urine Crystals (Negative) HPF Urine Bacteria (Negative) HPF Urine Casts (Negative) LPF Urine Mucus (Negative) Ur Culture Indicated? Urine Glucose (Negative) mg/dL Fluid Source Fluid Color Fluid Clarity Fluid WBC Fld Polynuclear WBCs % Fluid Mononuclear Cell Fluid Other Cells Vancomycin Trough Rheumatoid Factor (<12.0) IU/mL Cyclic Citrull Peptide (<5.0) U/mL ANNIE Titer ANNIE Titer 2 ANNIE Titer 3 ANNIE Interpretation (Negative) ANCA Immunofluorescen (Negative) ANCA Titer ANCA Pattern SS-A Antibody (<20.0) Units SS-B Antibody (<20.0) Units Scl-70 IgG Ab U Double Strand DNA Ab (<30.0) IU/mL Gram Stain Adenovirus DNA (Negative) Blastomyces Ag Result Blastomyces Ag Comment ng/mL COVID-19 Source SARS-CoV-2 (PCR) (Negative) Urine Histoplasma Ag U Histoplasma Ag Index ng/mL Human Metapneumovir RNA (Negative) Influenza Type A (PCR) (Negative) Influenza Type B (PCR) (Negative) L.pneumophila Antibody (Negative) Urine Legionella Ag (Negative) M. pneumoniae Source M. pneumoniae (PCR) Parainfluenza 1 (PCR) (Negative) Parainfluenza 2 (PCR) (Negative) Parainfluenza 3 (PCR) (Negative) Parainfluenza 4 (PCR) (Negative) Aspergillus Ag (EIA) (<0.5) index A. fumigatus IgG Ab (<=102) mg/L RSV (PCR) (Negative) Resp Viral Spec Desc Rhinovirus (PCR) (Negative) AFB Source AFB Culture Final Res Aerobic Culture Fungal Specimen Source B-(1,3)-D-Glucan Quant (<60 pg/mL) pg/mL B-(1,3)-D-Glucan Qual (Negative) Fungal Culture Status Fungal Culture Final Fungal Smear Result M. Tuberculosis PCR Path Cons Comment AFB Smear (Ref Lab) Add-On Test Request DONE Miscellaneous Test Ref Test Specimen Type Ref Report Verification Range/Units 10/27/21 10/27/21 10/28/21 06:34 06:34 05:15 WBC (4.4-10.8) 10^3/uL 10.65 RBC (4.36-5.78) 10^6/uL 3.40 L Hgb (13.5-17.5) g/dL 11.4 L Hct (40.0-50.0) % 34.4 L MCV (80-95) fL 101.2 H MCH (27.0-33.0) pg 33.5 H MCHC (32.0-36.0) % 33.1 RDW (11.8-14.1) % 12.6 Plt Count (130-400) 10^3/uL 117 L MPV (8.0-11.0) fL 10.1 Immature Gran % 1.5 Neutrophils % 87.8 Band Neutrophils % Lymphocytes % 5.4 Atypical Lymphs % Monocytes % 4.8 Eosinophils % 0.3 Basophils % 0.2 Metamyelocytes % Myelocytes % Nucleated RBC % % 0 Absolute Neutrophils (1.2-6.7) 10^3/uL 9.36 H Absolute Lymphocytes (1.2-3.4) 10^3/uL 0.57 L Absolute Monocytes (0.1-0.8) 10^3/uL 0.51 Absolute Eosinophils (0.0-0.7) 10^3/uL 0.03 Absolute Basophils (0.0-0.2) 10^3/uL 0.02 RBC Morphology Polychromasia Basophilic Stippling ESR (0-20) mm/hr Sample Site ABG Sample Site ABG pH (7.35-7.45) ABG pCO2 (35-45) mmHg ABG pO2 (80-105) mmHg ABG HCO3 (22-26) mmol/L ABG Total CO2 (23-27) mmol/L ABG O2 Saturation (95-98) % ABG Base Excess (-2-3) mmol/L VBG Lactate (0.6-1.4) mmol/L Oxygen Liter Flow FiO2 FiO2 (liters per min) L Sodium (136-145) mmol/L 138 139 Potassium (3.5-5.1) mmol/L 3.7 4.0 Chloride (98-107) mmol/L 104 105 Carbon Dioxide (21.0-32.0) mmol/L 25.5 27.4 Anion Gap (3-11) mmol/L 8.5 6.6 BUN (7-18) mg/dL 33 H 29 H Creatinine (0.70-1.30) mg/dL 1.5 H 1.5 H Estimated GFR/1.73 m2 (mL/min/1.73m2) 44.92 44.92 Glucose (74-106) mg/dL 121 H 79 Calcium (8.5-10.1) mg/dL 8.1 L 8.7 Magnesium (1.8-2.4) mg/dL 1.9 2.0 Ferritin (22-322) ng/mL Total Bilirubin (0.2-1.0) mg/dL Conjugated Bilirubin (0.0-0.2) mg/dL AST (15-37) U/L ALT (16-63) U/L Alkaline Phosphatase (46-116) U/L Troponin I (<or=60) ng/L C-Reactive Protein (0.0-0.3) mg/dL NT-Pro-B Natriuret Pep (<300) pg/mL Total Protein (6.4-8.2) g/dL Albumin (3.4-5.0) g/dL Procalcitonin ng/mL TSH (0.36-3.74) uIU/mL C. albicans Allerg IgE kU/L M. racemosus Allrg IgE kU/L Urine Color (Yellow) Urine Clarity (Clear) Urine pH (5-8) Ur Specific [place] (1.005-1.025) Urine Protein (Negative) mg/dL Urine Ketones (Negative) mg/dL Urine Blood (Negative) Urine Nitrite (Negative) Urine Bilirubin (Negative) Urine Urobilinogen (Up TO 0.2) EU/dL Ur Leukocyte Esterase (Negative) Urine RBC (0-2) HPF Urine WBC (0-5) HPF Ur Epithelial Cells (Negative) HPF Urine Crystals (Negative) HPF Urine Bacteria (Negative) HPF Urine Casts (Negative) LPF Urine Mucus (Negative) Ur Culture Indicated? Urine Glucose (Negative) mg/dL Fluid Source Fluid Color Fluid Clarity Fluid WBC Fld Polynuclear WBCs % Fluid Mononuclear Cell Fluid Other Cells Vancomycin Trough Rheumatoid Factor (<12.0) IU/mL Cyclic Citrull Peptide (<5.0) U/mL ANNIE Titer ANNIE Titer 2 ANNIE Titer 3 ANNIE Interpretation (Negative) ANCA Immunofluorescen (Negative) ANCA Titer ANCA Pattern SS-A Antibody (<20.0) Units SS-B Antibody (<20.0) Units Scl-70 IgG Ab U Double Strand DNA Ab (<30.0) IU/mL Gram Stain Adenovirus DNA (Negative) Blastomyces Ag Result Blastomyces Ag Comment ng/mL COVID-19 Source SARS-CoV-2 (PCR) (Negative) Urine Histoplasma Ag U Histoplasma Ag Index ng/mL Human Metapneumovir RNA (Negative) Influenza Type A (PCR) (Negative) Influenza Type B (PCR) (Negative) L.pneumophila Antibody (Negative) Urine Legionella Ag (Negative) M. pneumoniae Source M. pneumoniae (PCR) Parainfluenza 1 (PCR) (Negative) Parainfluenza 2 (PCR) (Negative) Parainfluenza 3 (PCR) (Negative) Parainfluenza 4 (PCR) (Negative) Aspergillus Ag (EIA) (<0.5) index A. fumigatus IgG Ab (<=102) mg/L RSV (PCR) (Negative) Resp Viral Spec Desc Rhinovirus (PCR) (Negative) AFB Source AFB Culture Final Res Aerobic Culture Fungal Specimen Source B-(1,3)-D-Glucan Quant (<60 pg/mL) pg/mL B-(1,3)-D-Glucan Qual (Negative) Fungal Culture Status Fungal Culture Final Fungal Smear Result M. Tuberculosis PCR Path Cons Comment AFB Smear (Ref Lab) Add-On Test Request Miscellaneous Test Ref Test Specimen Type Ref Report Verification Range/Units 10/28/21 10/29/21 10/29/21 05:15 07:00 07:00 WBC (4.4-10.8) 10^3/uL 8.86 7.72 RBC (4.36-5.78) 10^6/uL 3.71 L 3.52 L Hgb (13.5-17.5) g/dL 12.2 L 11.7 L Hct (40.0-50.0) % 38.6 L 35.0 L MCV (80-95) fL 104.0 H 99.4 H MCH (27.0-33.0) pg 32.9 33.2 H MCHC (32.0-36.0) % 31.6 L 33.4 RDW (11.8-14.1) % 12.9 13.1 Plt Count (130-400) 10^3/uL 121 L 118 L MPV (8.0-11.0) fL 10.2 9.6 Immature Gran % 2.0 1.9 Neutrophils % 75.9 81.2 Band Neutrophils % Lymphocytes % 12.0 8.3 Atypical Lymphs % Monocytes % 6.2 4.5 Eosinophils % 3.4 4.0 Basophils % 0.5 0.1 Metamyelocytes % Myelocytes % Nucleated RBC % % 0 0 Absolute Neutrophils (1.2-6.7) 10^3/uL 6.73 H 6.26 Absolute Lymphocytes (1.2-3.4) 10^3/uL 1.06 L 0.64 L Absolute Monocytes (0.1-0.8) 10^3/uL 0.55 0.35 Absolute Eosinophils (0.0-0.7) 10^3/uL 0.30 0.31 Absolute Basophils (0.0-0.2) 10^3/uL 0.04 0.01 RBC Morphology Polychromasia Basophilic Stippling ESR (0-20) mm/hr Sample Site ABG Sample Site ABG pH (7.35-7.45) ABG pCO2 (35-45) mmHg ABG pO2 (80-105) mmHg ABG HCO3 (22-26) mmol/L ABG Total CO2 (23-27) mmol/L ABG O2 Saturation (95-98) % ABG Base Excess (-2-3) mmol/L VBG Lactate (0.6-1.4) mmol/L Oxygen Liter Flow FiO2 FiO2 (liters per min) L Sodium (136-145) mmol/L 139 Potassium (3.5-5.1) mmol/L 3.7 Chloride (98-107) mmol/L 105 Carbon Dioxide (21.0-32.0) mmol/L 24.2 Anion Gap (3-11) mmol/L 9.8 BUN (7-18) mg/dL 26 H Creatinine (0.70-1.30) mg/dL 1.3 Estimated GFR/1.73 m2 (mL/min/1.73m2) 52.98 Glucose (74-106) mg/dL 88 Calcium (8.5-10.1) mg/dL 8.7 Magnesium (1.8-2.4) mg/dL Ferritin (22-322) ng/mL Total Bilirubin (0.2-1.0) mg/dL Conjugated Bilirubin (0.0-0.2) mg/dL AST (15-37) U/L ALT (16-63) U/L Alkaline Phosphatase (46-116) U/L Troponin I (<or=60) ng/L C-Reactive Protein (0.0-0.3) mg/dL 11.41 H NT-Pro-B Natriuret Pep (<300) pg/mL Total Protein (6.4-8.2) g/dL Albumin (3.4-5.0) g/dL Procalcitonin ng/mL TSH (0.36-3.74) uIU/mL C. albicans Allerg IgE kU/L M. racemosus Allrg IgE kU/L Urine Color (Yellow) Urine Clarity (Clear) Urine pH (5-8) Ur Specific [place] (1.005-1.025) Urine Protein (Negative) mg/dL Urine Ketones (Negative) mg/dL Urine Blood (Negative) Urine Nitrite (Negative) Urine Bilirubin (Negative) Urine Urobilinogen (Up TO 0.2) EU/dL Ur Leukocyte Esterase (Negative) Urine RBC (0-2) HPF Urine WBC (0-5) HPF Ur Epithelial Cells (Negative) HPF Urine Crystals (Negative) HPF Urine Bacteria (Negative) HPF Urine Casts (Negative) LPF Urine Mucus (Negative) Ur Culture Indicated? Urine Glucose (Negative) mg/dL Fluid Source Fluid Color Fluid Clarity Fluid WBC Fld Polynuclear WBCs % Fluid Mononuclear Cell Fluid Other Cells Vancomycin Trough Rheumatoid Factor (<12.0) IU/mL Cyclic Citrull Peptide (<5.0) U/mL ANNIE Titer ANNIE Titer 2 ANNIE Titer 3 ANNIE Interpretation (Negative) ANCA Immunofluorescen (Negative) ANCA Titer ANCA Pattern SS-A Antibody (<20.0) Units SS-B Antibody (<20.0) Units Scl-70 IgG Ab U Double Strand DNA Ab (<30.0) IU/mL Gram Stain Adenovirus DNA (Negative) Blastomyces Ag Result Blastomyces Ag Comment ng/mL COVID-19 Source SARS-CoV-2 (PCR) (Negative) Urine Histoplasma Ag U Histoplasma Ag Index ng/mL Human Metapneumovir RNA (Negative) Influenza Type A (PCR) (Negative) Influenza Type B (PCR) (Negative) L.pneumophila Antibody (Negative) Urine Legionella Ag (Negative) M. pneumoniae Source M. pneumoniae (PCR) Parainfluenza 1 (PCR) (Negative) Parainfluenza 2 (PCR) (Negative) Parainfluenza 3 (PCR) (Negative) Parainfluenza 4 (PCR) (Negative) Aspergillus Ag (EIA) (<0.5) index A. fumigatus IgG Ab (<=102) mg/L RSV (PCR) (Negative) Resp Viral Spec Desc Rhinovirus (PCR) (Negative) AFB Source AFB Culture Final Res Aerobic Culture Fungal Specimen Source B-(1,3)-D-Glucan Quant (<60 pg/mL) pg/mL B-(1,3)-D-Glucan Qual (Negative) Fungal Culture Status Fungal Culture Final Fungal Smear Result M. Tuberculosis PCR Path Cons Comment AFB Smear (Ref Lab) Add-On Test Request Miscellaneous Test Ref Test Specimen Type Ref Report Verification Range/Units 10/29/21 10/30/21 10/30/21 07:00 06:18 09:26 WBC (4.4-10.8) 10^3/uL RBC (4.36-5.78) 10^6/uL Hgb (13.5-17.5) g/dL Hct (40.0-50.0) % MCV (80-95) fL MCH (27.0-33.0) pg MCHC (32.0-36.0) % RDW (11.8-14.1) % Plt Count (130-400) 10^3/uL MPV (8.0-11.0) fL Immature Gran % Neutrophils % Band Neutrophils % Lymphocytes % Atypical Lymphs % Monocytes % Eosinophils % Basophils % Metamyelocytes % Myelocytes % Nucleated RBC % % Absolute Neutrophils (1.2-6.7) 10^3/uL Absolute Lymphocytes (1.2-3.4) 10^3/uL Absolute Monocytes (0.1-0.8) 10^3/uL Absolute Eosinophils (0.0-0.7) 10^3/uL Absolute Basophils (0.0-0.2) 10^3/uL RBC Morphology Polychromasia Basophilic Stippling ESR (0-20) mm/hr Sample Site ABG Sample Site ABG pH (7.35-7.45) ABG pCO2 (35-45) mmHg ABG pO2 (80-105) mmHg ABG HCO3 (22-26) mmol/L ABG Total CO2 (23-27) mmol/L ABG O2 Saturation (95-98) % ABG Base Excess (-2-3) mmol/L VBG Lactate (0.6-1.4) mmol/L 0.7 Oxygen Liter Flow FiO2 FiO2 (liters per min) L Sodium (136-145) mmol/L 139 Potassium (3.5-5.1) mmol/L 3.6 Chloride (98-107) mmol/L 104 Carbon Dioxide (21.0-32.0) mmol/L 25.4 Anion Gap (3-11) mmol/L 9.6 BUN (7-18) mg/dL 25 H Creatinine (0.70-1.30) mg/dL 1.4 H Estimated GFR/1.73 m2 (mL/min/1.73m2) 48.64 Glucose (74-106) mg/dL 113 H Calcium (8.5-10.1) mg/dL 8.9 Magnesium (1.8-2.4) mg/dL 2.0 Ferritin (22-322) ng/mL Total Bilirubin (0.2-1.0) mg/dL Conjugated Bilirubin (0.0-0.2) mg/dL AST (15-37) U/L ALT (16-63) U/L Alkaline Phosphatase (46-116) U/L Troponin I (<or=60) ng/L C-Reactive Protein (0.0-0.3) mg/dL NT-Pro-B Natriuret Pep (<300) pg/mL Total Protein (6.4-8.2) g/dL Albumin (3.4-5.0) g/dL Procalcitonin ng/mL 0.1 TSH (0.36-3.74) uIU/mL C. albicans Allerg IgE kU/L M. racemosus Allrg IgE kU/L Urine Color (Yellow) Urine Clarity (Clear) Urine pH (5-8) Ur Specific [place] (1.005-1.025) Urine Protein (Negative) mg/dL Urine Ketones (Negative) mg/dL Urine Blood (Negative) Urine Nitrite (Negative) Urine Bilirubin (Negative) Urine Urobilinogen (Up TO 0.2) EU/dL Ur Leukocyte Esterase (Negative) Urine RBC (0-2) HPF Urine WBC (0-5) HPF Ur Epithelial Cells (Negative) HPF Urine Crystals (Negative) HPF Urine Bacteria (Negative) HPF Urine Casts (Negative) LPF Urine Mucus (Negative) Ur Culture Indicated? Urine Glucose (Negative) mg/dL Fluid Source Fluid Color Fluid Clarity Fluid WBC Fld Polynuclear WBCs % Fluid Mononuclear Cell Fluid Other Cells Vancomycin Trough Rheumatoid Factor (<12.0) IU/mL Cyclic Citrull Peptide (<5.0) U/mL ANNIE Titer ANNIE Titer 2 ANNIE Titer 3 ANNIE Interpretation (Negative) ANCA Immunofluorescen (Negative) ANCA Titer ANCA Pattern SS-A Antibody (<20.0) Units SS-B Antibody (<20.0) Units Scl-70 IgG Ab U Double Strand DNA Ab (<30.0) IU/mL Gram Stain Adenovirus DNA (Negative) Blastomyces Ag Result Blastomyces Ag Comment ng/mL COVID-19 Source Nasal/Nares SARS-CoV-2 (PCR) (Negative) Negative Urine Histoplasma Ag U Histoplasma Ag Index ng/mL Human Metapneumovir RNA (Negative) Influenza Type A (PCR) (Negative) Influenza Type B (PCR) (Negative) L.pneumophila Antibody (Negative) Urine Legionella Ag (Negative) M. pneumoniae Source M. pneumoniae (PCR) Parainfluenza 1 (PCR) (Negative) Parainfluenza 2 (PCR) (Negative) Parainfluenza 3 (PCR) (Negative) Parainfluenza 4 (PCR) (Negative) Aspergillus Ag (EIA) (<0.5) index A. fumigatus IgG Ab (<=102) mg/L RSV (PCR) (Negative) Resp Viral Spec Desc Rhinovirus (PCR) (Negative) AFB Source AFB Culture Final Res Aerobic Culture Fungal Specimen Source B-(1,3)-D-Glucan Quant (<60 pg/mL) pg/mL B-(1,3)-D-Glucan Qual (Negative) Fungal Culture Status Fungal Culture Final Fungal Smear Result M. Tuberculosis PCR Path Cons Comment AFB Smear (Ref Lab) Add-On Test Request Miscellaneous Test Ref Test Specimen Type Ref Report Verification Range/Units 10/30/21 10/30/21 10/31/21 12:50 12:50 06:25 WBC (4.4-10.8) 10^3/uL RBC (4.36-5.78) 10^6/uL Hgb (13.5-17.5) g/dL Hct (40.0-50.0) % MCV (80-95) fL MCH (27.0-33.0) pg MCHC (32.0-36.0) % RDW (11.8-14.1) % Plt Count (130-400) 10^3/uL MPV (8.0-11.0) fL Immature Gran % Neutrophils % Band Neutrophils % Lymphocytes % Atypical Lymphs % Monocytes % Eosinophils % Basophils % Metamyelocytes % Myelocytes % Nucleated RBC % % Absolute Neutrophils (1.2-6.7) 10^3/uL Absolute Lymphocytes (1.2-3.4) 10^3/uL Absolute Monocytes (0.1-0.8) 10^3/uL Absolute Eosinophils (0.0-0.7) 10^3/uL Absolute Basophils (0.0-0.2) 10^3/uL RBC Morphology Polychromasia Basophilic Stippling ESR (0-20) mm/hr Sample Site Right Radial ABG Sample Site Cancelled ABG pH (7.35-7.45) 7.50 H ABG pCO2 (35-45) mmHg 30 L ABG pO2 (80-105) mmHg 79 L ABG HCO3 (22-26) mmol/L 22 ABG Total CO2 (23-27) mmol/L 23 ABG O2 Saturation (95-98) % 97 ABG Base Excess (-2-3) mmol/L -1 VBG Lactate (0.6-1.4) mmol/L 1.8 H Oxygen Liter Flow Cancelled FiO2 Cancelled FiO2 (liters per min) L 0.5 Sodium (136-145) mmol/L 140 Potassium (3.5-5.1) mmol/L 3.7 Chloride (98-107) mmol/L 103 Carbon Dioxide (21.0-32.0) mmol/L 28.1 Anion Gap (3-11) mmol/L 8.9 BUN (7-18) mg/dL 32 H Creatinine (0.70-1.30) mg/dL 1.5 H Estimated GFR/1.73 m2 (mL/min/1.73m2) 44.92 Glucose (74-106) mg/dL 110 H Calcium (8.5-10.1) mg/dL 8.7 Magnesium (1.8-2.4) mg/dL Ferritin (22-322) ng/mL Total Bilirubin (0.2-1.0) mg/dL Conjugated Bilirubin (0.0-0.2) mg/dL AST (15-37) U/L ALT (16-63) U/L Alkaline Phosphatase (46-116) U/L Troponin I (<or=60) ng/L C-Reactive Protein (0.0-0.3) mg/dL NT-Pro-B Natriuret Pep (<300) pg/mL Total Protein (6.4-8.2) g/dL Albumin (3.4-5.0) g/dL Procalcitonin ng/mL TSH (0.36-3.74) uIU/mL C. albicans Allerg IgE kU/L M. racemosus Allrg IgE kU/L Urine Color (Yellow) Urine Clarity (Clear) Urine pH (5-8) Ur Specific [place] (1.005-1.025) Urine Protein (Negative) mg/dL Urine Ketones (Negative) mg/dL Urine Blood (Negative) Urine Nitrite (Negative) Urine Bilirubin (Negative) Urine Urobilinogen (Up TO 0.2) EU/dL Ur Leukocyte Esterase (Negative) Urine RBC (0-2) HPF Urine WBC (0-5) HPF Ur Epithelial Cells (Negative) HPF Urine Crystals (Negative) HPF Urine Bacteria (Negative) HPF Urine Casts (Negative) LPF Urine Mucus (Negative) Ur Culture Indicated? Urine Glucose (Negative) mg/dL Fluid Source Fluid Color Fluid Clarity Fluid WBC Fld Polynuclear WBCs % Fluid Mononuclear Cell Fluid Other Cells Vancomycin Trough Rheumatoid Factor (<12.0) IU/mL Cyclic Citrull Peptide (<5.0) U/mL ANNIE Titer ANNIE Titer 2 ANNIE Titer 3 ANNIE Interpretation (Negative) ANCA Immunofluorescen (Negative) ANCA Titer ANCA Pattern SS-A Antibody (<20.0) Units SS-B Antibody (<20.0) Units Scl-70 IgG Ab U Double Strand DNA Ab (<30.0) IU/mL Gram Stain Adenovirus DNA (Negative) Blastomyces Ag Result Blastomyces Ag Comment ng/mL COVID-19 Source SARS-CoV-2 (PCR) (Negative) Urine Histoplasma Ag U Histoplasma Ag Index ng/mL Human Metapneumovir RNA (Negative) Influenza Type A (PCR) (Negative) Influenza Type B (PCR) (Negative) L.pneumophila Antibody (Negative) Urine Legionella Ag (Negative) M. pneumoniae Source M. pneumoniae (PCR) Parainfluenza 1 (PCR) (Negative) Parainfluenza 2 (PCR) (Negative) Parainfluenza 3 (PCR) (Negative) Parainfluenza 4 (PCR) (Negative) Aspergillus Ag (EIA) (<0.5) index A. fumigatus IgG Ab (<=102) mg/L RSV (PCR) (Negative) Resp Viral Spec Desc Rhinovirus (PCR) (Negative) AFB Source AFB Culture Final Res Aerobic Culture Fungal Specimen Source B-(1,3)-D-Glucan Quant (<60 pg/mL) pg/mL B-(1,3)-D-Glucan Qual (Negative) Fungal Culture Status Fungal Culture Final Fungal Smear Result M. Tuberculosis PCR Path Cons Comment AFB Smear (Ref Lab) Add-On Test Request Miscellaneous Test Ref Test Specimen Type Ref Report Verification Range/Units 10/31/21 11/02/21 11/02/21 06:25 06:30 06:45 WBC (4.4-10.8) 10^3/uL 9.97 RBC (4.36-5.78) 10^6/uL 3.49 L Hgb (13.5-17.5) g/dL 11.7 L Hct (40.0-50.0) % 35.0 L MCV (80-95) fL 100.3 H MCH (27.0-33.0) pg 33.5 H MCHC (32.0-36.0) % 33.4 RDW (11.8-14.1) % 13.0 Plt Count (130-400) 10^3/uL 146 MPV (8.0-11.0) fL 10.0 Immature Gran % 1.9 Neutrophils % 84.7 Band Neutrophils % Lymphocytes % 7.5 Atypical Lymphs % Monocytes % 3.5 Eosinophils % 2.3 Basophils % 0.1 Metamyelocytes % Myelocytes % Nucleated RBC % % 0 Absolute Neutrophils (1.2-6.7) 10^3/uL 8.44 H Absolute Lymphocytes (1.2-3.4) 10^3/uL 0.75 L Absolute Monocytes (0.1-0.8) 10^3/uL 0.35 Absolute Eosinophils (0.0-0.7) 10^3/uL 0.23 Absolute Basophils (0.0-0.2) 10^3/uL 0.01 RBC Morphology Polychromasia Basophilic Stippling ESR (0-20) mm/hr Sample Site ABG Sample Site ABG pH (7.35-7.45) ABG pCO2 (35-45) mmHg ABG pO2 (80-105) mmHg ABG HCO3 (22-26) mmol/L ABG Total CO2 (23-27) mmol/L ABG O2 Saturation (95-98) % ABG Base Excess (-2-3) mmol/L VBG Lactate (0.6-1.4) mmol/L Oxygen Liter Flow FiO2 FiO2 (liters per min) L Sodium (136-145) mmol/L 140 Potassium (3.5-5.1) mmol/L 3.9 Chloride (98-107) mmol/L 102 Carbon Dioxide (21.0-32.0) mmol/L 29.3 Anion Gap (3-11) mmol/L 8.7 BUN (7-18) mg/dL 31 H Creatinine (0.70-1.30) mg/dL 1.4 H Estimated GFR/1.73 m2 (mL/min/1.73m2) 48.64 Glucose (74-106) mg/dL 101 Calcium (8.5-10.1) mg/dL 9.3 Magnesium (1.8-2.4) mg/dL Ferritin (22-322) ng/mL Total Bilirubin (0.2-1.0) mg/dL Conjugated Bilirubin (0.0-0.2) mg/dL AST (15-37) U/L ALT (16-63) U/L Alkaline Phosphatase (46-116) U/L Troponin I (<or=60) ng/L C-Reactive Protein (0.0-0.3) mg/dL > 25.00 H NT-Pro-B Natriuret Pep (<300) pg/mL Total Protein (6.4-8.2) g/dL Albumin (3.4-5.0) g/dL Procalcitonin ng/mL TSH (0.36-3.74) uIU/mL C. albicans Allerg IgE kU/L M. racemosus Allrg IgE kU/L Urine Color (Yellow) Urine Clarity (Clear) Urine pH (5-8) Ur Specific [place] (1.005-1.025) Urine Protein (Negative) mg/dL Urine Ketones (Negative) mg/dL Urine Blood (Negative) Urine Nitrite (Negative) Urine Bilirubin (Negative) Urine Urobilinogen (Up TO 0.2) EU/dL Ur Leukocyte Esterase (Negative) Urine RBC (0-2) HPF Urine WBC (0-5) HPF Ur Epithelial Cells (Negative) HPF Urine Crystals (Negative) HPF Urine Bacteria (Negative) HPF Urine Casts (Negative) LPF Urine Mucus (Negative) Ur Culture Indicated? Urine Glucose (Negative) mg/dL Fluid Source Fluid Color Fluid Clarity Fluid WBC Fld Polynuclear WBCs % Fluid Mononuclear Cell Fluid Other Cells Vancomycin Trough Rheumatoid Factor (<12.0) IU/mL Cyclic Citrull Peptide (<5.0) U/mL ANNIE Titer ANNIE Titer 2 ANNIE Titer 3 ANNIE Interpretation (Negative) ANCA Immunofluorescen (Negative) ANCA Titer ANCA Pattern SS-A Antibody (<20.0) Units SS-B Antibody (<20.0) Units Scl-70 IgG Ab U Double Strand DNA Ab (<30.0) IU/mL Gram Stain Adenovirus DNA (Negative) Blastomyces Ag Result Blastomyces Ag Comment ng/mL COVID-19 Source SARS-CoV-2 (PCR) (Negative) Urine Histoplasma Ag U Histoplasma Ag Index ng/mL Human Metapneumovir RNA (Negative) Influenza Type A (PCR) (Negative) Influenza Type B (PCR) (Negative) L.pneumophila Antibody (Negative) Negative Urine Legionella Ag (Negative) M. pneumoniae Source M. pneumoniae (PCR) Parainfluenza 1 (PCR) (Negative) Parainfluenza 2 (PCR) (Negative) Parainfluenza 3 (PCR) (Negative) Parainfluenza 4 (PCR) (Negative) Aspergillus Ag (EIA) (<0.5) index A. fumigatus IgG Ab (<=102) mg/L RSV (PCR) (Negative) Resp Viral Spec Desc Rhinovirus (PCR) (Negative) AFB Source AFB Culture Final Res Aerobic Culture Fungal Specimen Source B-(1,3)-D-Glucan Quant (<60 pg/mL) pg/mL B-(1,3)-D-Glucan Qual (Negative) Fungal Culture Status Fungal Culture Final Fungal Smear Result M. Tuberculosis PCR Path Cons Comment AFB Smear (Ref Lab) Add-On Test Request Miscellaneous Test Ref Test Specimen Type Ref Report Verification Range/Units 11/02/21 11/02/21 11/02/21 06:45 06:45 06:45 WBC (4.4-10.8) 10^3/uL 7.69 RBC (4.36-5.78) 10^6/uL 3.59 L Hgb (13.5-17.5) g/dL 11.8 L Hct (40.0-50.0) % 36.7 L MCV (80-95) fL 102.2 H MCH (27.0-33.0) pg 32.9 MCHC (32.0-36.0) % 32.2 RDW (11.8-14.1) % 12.9 Plt Count (130-400) 10^3/uL 151 MPV (8.0-11.0) fL 9.8 Immature Gran % 1.6 Neutrophils % 78.6 Band Neutrophils % Lymphocytes % 12.2 Atypical Lymphs % Monocytes % 3.4 Eosinophils % 3.9 Basophils % 0.3 Metamyelocytes % Myelocytes % Nucleated RBC % % 0 Absolute Neutrophils (1.2-6.7) 10^3/uL 6.05 Absolute Lymphocytes (1.2-3.4) 10^3/uL 0.94 L Absolute Monocytes (0.1-0.8) 10^3/uL 0.26 Absolute Eosinophils (0.0-0.7) 10^3/uL 0.30 Absolute Basophils (0.0-0.2) 10^3/uL 0.02 RBC Morphology Polychromasia Basophilic Stippling ESR (0-20) mm/hr 41 H Sample Site ABG Sample Site ABG pH (7.35-7.45) ABG pCO2 (35-45) mmHg ABG pO2 (80-105) mmHg ABG HCO3 (22-26) mmol/L ABG Total CO2 (23-27) mmol/L ABG O2 Saturation (95-98) % ABG Base Excess (-2-3) mmol/L VBG Lactate (0.6-1.4) mmol/L Oxygen Liter Flow FiO2 FiO2 (liters per min) L Sodium (136-145) mmol/L Potassium (3.5-5.1) mmol/L Chloride (98-107) mmol/L Carbon Dioxide (21.0-32.0) mmol/L Anion Gap (3-11) mmol/L BUN (7-18) mg/dL Creatinine (0.70-1.30) mg/dL Estimated GFR/1.73 m2 (mL/min/1.73m2) Glucose (74-106) mg/dL Calcium (8.5-10.1) mg/dL Magnesium (1.8-2.4) mg/dL Ferritin (22-322) ng/mL Total Bilirubin (0.2-1.0) mg/dL Conjugated Bilirubin (0.0-0.2) mg/dL AST (15-37) U/L ALT (16-63) U/L Alkaline Phosphatase (46-116) U/L Troponin I (<or=60) ng/L C-Reactive Protein (0.0-0.3) mg/dL NT-Pro-B Natriuret Pep (<300) pg/mL Total Protein (6.4-8.2) g/dL Albumin (3.4-5.0) g/dL Procalcitonin ng/mL TSH (0.36-3.74) uIU/mL C. albicans Allerg IgE kU/L M. racemosus Allrg IgE kU/L Urine Color (Yellow) Urine Clarity (Clear) Urine pH (5-8) Ur Specific [place] (1.005-1.025) Urine Protein (Negative) mg/dL Urine Ketones (Negative) mg/dL Urine Blood (Negative) Urine Nitrite (Negative) Urine Bilirubin (Negative) Urine Urobilinogen (Up TO 0.2) EU/dL Ur Leukocyte Esterase (Negative) Urine RBC (0-2) HPF Urine WBC (0-5) HPF Ur Epithelial Cells (Negative) HPF Urine Crystals (Negative) HPF Urine Bacteria (Negative) HPF Urine Casts (Negative) LPF Urine Mucus (Negative) Ur Culture Indicated? Urine Glucose (Negative) mg/dL Fluid Source Fluid Color Fluid Clarity Fluid WBC Fld Polynuclear WBCs % Fluid Mononuclear Cell Fluid Other Cells Vancomycin Trough Rheumatoid Factor (<12.0) IU/mL Cyclic Citrull Peptide (<5.0) U/mL ANNIE Titer ANNIE Titer 2 ANNIE Titer 3 ANNIE Interpretation (Negative) ANCA Immunofluorescen (Negative) ANCA Titer ANCA Pattern SS-A Antibody (<20.0) Units SS-B Antibody (<20.0) Units Scl-70 IgG Ab U Double Strand DNA Ab (<30.0) IU/mL Gram Stain Adenovirus DNA (Negative) Blastomyces Ag Result Blastomyces Ag Comment ng/mL COVID-19 Source SARS-CoV-2 (PCR) (Negative) Urine Histoplasma Ag U Histoplasma Ag Index ng/mL Human Metapneumovir RNA (Negative) Influenza Type A (PCR) (Negative) Influenza Type B (PCR) (Negative) L.pneumophila Antibody (Negative) Urine Legionella Ag (Negative) M. pneumoniae Source M. pneumoniae (PCR) Parainfluenza 1 (PCR) (Negative) Parainfluenza 2 (PCR) (Negative) Parainfluenza 3 (PCR) (Negative) Parainfluenza 4 (PCR) (Negative) Aspergillus Ag (EIA) (<0.5) index A. fumigatus IgG Ab (<=102) mg/L RSV (PCR) (Negative) Resp Viral Spec Desc Rhinovirus (PCR) (Negative) AFB Source AFB Culture Final Res Aerobic Culture Fungal Specimen Source B-(1,3)-D-Glucan Quant (<60 pg/mL) pg/mL B-(1,3)-D-Glucan Qual (Negative) Fungal Culture Status Fungal Culture Final Fungal Smear Result M. Tuberculosis PCR Path Cons Comment AFB Smear (Ref Lab) Add-On Test Request done Miscellaneous Test Ref Test Specimen Type Ref Report Verification Range/Units 11/02/21 11/02/21 11/02/21 06:45 06:45 11:00 WBC (4.4-10.8) 10^3/uL RBC (4.36-5.78) 10^6/uL Hgb (13.5-17.5) g/dL Hct (40.0-50.0) % MCV (80-95) fL MCH (27.0-33.0) pg MCHC (32.0-36.0) % RDW (11.8-14.1) % Plt Count (130-400) 10^3/uL MPV (8.0-11.0) fL Immature Gran % Neutrophils % Band Neutrophils % Lymphocytes % Atypical Lymphs % Monocytes % Eosinophils % Basophils % Metamyelocytes % Myelocytes % Nucleated RBC % % Absolute Neutrophils (1.2-6.7) 10^3/uL Absolute Lymphocytes (1.2-3.4) 10^3/uL Absolute Monocytes (0.1-0.8) 10^3/uL Absolute Eosinophils (0.0-0.7) 10^3/uL Absolute Basophils (0.0-0.2) 10^3/uL RBC Morphology Polychromasia Basophilic Stippling ESR (0-20) mm/hr Sample Site ABG Sample Site ABG pH (7.35-7.45) ABG pCO2 (35-45) mmHg ABG pO2 (80-105) mmHg ABG HCO3 (22-26) mmol/L ABG Total CO2 (23-27) mmol/L ABG O2 Saturation (95-98) % ABG Base Excess (-2-3) mmol/L VBG Lactate (0.6-1.4) mmol/L Oxygen Liter Flow FiO2 FiO2 (liters per min) L Sodium (136-145) mmol/L Potassium (3.5-5.1) mmol/L Chloride (98-107) mmol/L Carbon Dioxide (21.0-32.0) mmol/L Anion Gap (3-11) mmol/L BUN (7-18) mg/dL Creatinine (0.70-1.30) mg/dL Estimated GFR/1.73 m2 (mL/min/1.73m2) Glucose (74-106) mg/dL Calcium (8.5-10.1) mg/dL Magnesium (1.8-2.4) mg/dL Ferritin (22-322) ng/mL 538 H Total Bilirubin (0.2-1.0) mg/dL Conjugated Bilirubin (0.0-0.2) mg/dL AST (15-37) U/L ALT (16-63) U/L Alkaline Phosphatase (46-116) U/L Troponin I (<or=60) ng/L C-Reactive Protein (0.0-0.3) mg/dL NT-Pro-B Natriuret Pep (<300) pg/mL 673 H Total Protein (6.4-8.2) g/dL Albumin (3.4-5.0) g/dL Procalcitonin ng/mL TSH (0.36-3.74) uIU/mL C. albicans Allerg IgE kU/L M. racemosus Allrg IgE kU/L Urine Color (Yellow) Urine Clarity (Clear) Urine pH (5-8) Ur Specific [place] (1.005-1.025) Urine Protein (Negative) mg/dL Urine Ketones (Negative) mg/dL Urine Blood (Negative) Urine Nitrite (Negative) Urine Bilirubin (Negative) Urine Urobilinogen (Up TO 0.2) EU/dL Ur Leukocyte Esterase (Negative) Urine RBC (0-2) HPF Urine WBC (0-5) HPF Ur Epithelial Cells (Negative) HPF Urine Crystals (Negative) HPF Urine Bacteria (Negative) HPF Urine Casts (Negative) LPF Urine Mucus (Negative) Ur Culture Indicated? Urine Glucose (Negative) mg/dL Fluid Source Fluid Color Fluid Clarity Fluid WBC Fld Polynuclear WBCs % Fluid Mononuclear Cell Fluid Other Cells Vancomycin Trough Rheumatoid Factor (<12.0) IU/mL Cyclic Citrull Peptide (<5.0) U/mL ANNIE Titer ANNIE Titer 2 ANNIE Titer 3 ANNIE Interpretation (Negative) ANCA Immunofluorescen (Negative) ANCA Titer ANCA Pattern SS-A Antibody (<20.0) Units SS-B Antibody (<20.0) Units Scl-70 IgG Ab U Double Strand DNA Ab (<30.0) IU/mL Gram Stain Adenovirus DNA (Negative) Blastomyces Ag Result Blastomyces Ag Comment ng/mL COVID-19 Source Nasopharynx SARS-CoV-2 (PCR) (Negative) Negative Urine Histoplasma Ag U Histoplasma Ag Index ng/mL Human Metapneumovir RNA (Negative) Influenza Type A (PCR) (Negative) Influenza Type B (PCR) (Negative) L.pneumophila Antibody (Negative) Urine Legionella Ag (Negative) M. pneumoniae Source M. pneumoniae (PCR) Parainfluenza 1 (PCR) (Negative) Parainfluenza 2 (PCR) (Negative) Parainfluenza 3 (PCR) (Negative) Parainfluenza 4 (PCR) (Negative) Aspergillus Ag (EIA) (<0.5) index A. fumigatus IgG Ab (<=102) mg/L RSV (PCR) (Negative) Resp Viral Spec Desc Rhinovirus (PCR) (Negative) AFB Source AFB Culture Final Res Aerobic Culture Fungal Specimen Source B-(1,3)-D-Glucan Quant (<60 pg/mL) pg/mL B-(1,3)-D-Glucan Qual (Negative) Fungal Culture Status Fungal Culture Final Fungal Smear Result M. Tuberculosis PCR Path Cons Comment AFB Smear (Ref Lab) Add-On Test Request Miscellaneous Test Ref Test Specimen Type Ref Report Verification Range/Units 11/02/21 11/02/21 11/02/21 15:30 15:30 21:09 WBC (4.4-10.8) 10^3/uL RBC (4.36-5.78) 10^6/uL Hgb (13.5-17.5) g/dL Hct (40.0-50.0) % MCV (80-95) fL MCH (27.0-33.0) pg MCHC (32.0-36.0) % RDW (11.8-14.1) % Plt Count (130-400) 10^3/uL MPV (8.0-11.0) fL Immature Gran % Neutrophils % Band Neutrophils % Lymphocytes % Atypical Lymphs % Monocytes % Eosinophils % Basophils % Metamyelocytes % Myelocytes % Nucleated RBC % % Absolute Neutrophils (1.2-6.7) 10^3/uL Absolute Lymphocytes (1.2-3.4) 10^3/uL Absolute Monocytes (0.1-0.8) 10^3/uL Absolute Eosinophils (0.0-0.7) 10^3/uL Absolute Basophils (0.0-0.2) 10^3/uL RBC Morphology Polychromasia Basophilic Stippling ESR (0-20) mm/hr Sample Site ABG Sample Site ABG pH (7.35-7.45) ABG pCO2 (35-45) mmHg ABG pO2 (80-105) mmHg ABG HCO3 (22-26) mmol/L ABG Total CO2 (23-27) mmol/L ABG O2 Saturation (95-98) % ABG Base Excess (-2-3) mmol/L VBG Lactate (0.6-1.4) mmol/L Oxygen Liter Flow FiO2 FiO2 (liters per min) L Sodium (136-145) mmol/L Potassium (3.5-5.1) mmol/L Chloride (98-107) mmol/L Carbon Dioxide (21.0-32.0) mmol/L Anion Gap (3-11) mmol/L BUN (7-18) mg/dL Creatinine (0.70-1.30) mg/dL Estimated GFR/1.73 m2 (mL/min/1.73m2) Glucose (74-106) mg/dL Calcium (8.5-10.1) mg/dL Magnesium (1.8-2.4) mg/dL Ferritin (22-322) ng/mL Total Bilirubin (0.2-1.0) mg/dL Conjugated Bilirubin (0.0-0.2) mg/dL AST (15-37) U/L ALT (16-63) U/L Alkaline Phosphatase (46-116) U/L Troponin I (<or=60) ng/L C-Reactive Protein (0.0-0.3) mg/dL NT-Pro-B Natriuret Pep (<300) pg/mL Total Protein (6.4-8.2) g/dL Albumin (3.4-5.0) g/dL Procalcitonin ng/mL TSH (0.36-3.74) uIU/mL C. albicans Allerg IgE kU/L M. racemosus Allrg IgE kU/L Urine Color (Yellow) Urine Clarity (Clear) Urine pH (5-8) Ur Specific [place] (1.005-1.025) Urine Protein (Negative) mg/dL Urine Ketones (Negative) mg/dL Urine Blood (Negative) Urine Nitrite (Negative) Urine Bilirubin (Negative) Urine Urobilinogen (Up TO 0.2) EU/dL Ur Leukocyte Esterase (Negative) Urine RBC (0-2) HPF Urine WBC (0-5) HPF Ur Epithelial Cells (Negative) HPF Urine Crystals (Negative) HPF Urine Bacteria (Negative) HPF Urine Casts (Negative) LPF Urine Mucus (Negative) Ur Culture Indicated? Urine Glucose (Negative) mg/dL Fluid Source Fluid Color Fluid Clarity Fluid WBC Fld Polynuclear WBCs % Fluid Mononuclear Cell Fluid Other Cells Vancomycin Trough Rheumatoid Factor (<12.0) IU/mL Cyclic Citrull Peptide (<5.0) U/mL ANNIE Titer ANNIE Titer 2 ANNIE Titer 3 ANNIE Interpretation (Negative) ANCA Immunofluorescen (Negative) ANCA Titer ANCA Pattern SS-A Antibody (<20.0) Units SS-B Antibody (<20.0) Units Scl-70 IgG Ab U Double Strand DNA Ab (<30.0) IU/mL Gram Stain Adenovirus DNA (Negative) Negative Blastomyces Ag Result Blastomyces Ag Comment ng/mL COVID-19 Source SARS-CoV-2 (PCR) (Negative) Urine Histoplasma Ag U Histoplasma Ag Index ng/mL Human Metapneumovir RNA (Negative) Negative Influenza Type A (PCR) (Negative) Influenza Type B (PCR) (Negative) L.pneumophila Antibody (Negative) Urine Legionella Ag (Negative) M. pneumoniae Source nasal Cancelled M. pneumoniae (PCR) Negative Cancelled Parainfluenza 1 (PCR) (Negative) Negative Parainfluenza 2 (PCR) (Negative) Negative Parainfluenza 3 (PCR) (Negative) Negative Parainfluenza 4 (PCR) (Negative) Negative Aspergillus Ag (EIA) (<0.5) index A. fumigatus IgG Ab (<=102) mg/L RSV (PCR) (Negative) Resp Viral Spec Desc Not Applicable Rhinovirus (PCR) (Negative) Negative AFB Source AFB Culture Final Res Aerobic Culture Fungal Specimen Source B-(1,3)-D-Glucan Quant (<60 pg/mL) pg/mL B-(1,3)-D-Glucan Qual (Negative) Fungal Culture Status Fungal Culture Final Fungal Smear Result M. Tuberculosis PCR Path Cons Comment AFB Smear (Ref Lab) Add-On Test Request Miscellaneous Test Ref Test Specimen Type Ref Report Verification Range/Units 11/03/21 11/03/21 11/04/21 06:30 06:30 06:40 WBC (4.4-10.8) 10^3/uL 10.34 D RBC (4.36-5.78) 10^6/uL 3.37 L Hgb (13.5-17.5) g/dL 11.0 L Hct (40.0-50.0) % 33.6 L MCV (80-95) fL 99.7 H MCH (27.0-33.0) pg 32.6 MCHC (32.0-36.0) % 32.7 RDW (11.8-14.1) % 13.0 Plt Count (130-400) 10^3/uL 146 MPV (8.0-11.0) fL 10.2 Immature Gran % 1.1 Neutrophils % 94.4 Band Neutrophils % Lymphocytes % 3.3 Atypical Lymphs % Monocytes % 1.0 Eosinophils % 0.0 Basophils % 0.2 Metamyelocytes % Myelocytes % Nucleated RBC % % 0 Absolute Neutrophils (1.2-6.7) 10^3/uL 9.76 H Absolute Lymphocytes (1.2-3.4) 10^3/uL 0.34 L Absolute Monocytes (0.1-0.8) 10^3/uL 0.10 Absolute Eosinophils (0.0-0.7) 10^3/uL 0.00 Absolute Basophils (0.0-0.2) 10^3/uL 0.02 RBC Morphology Polychromasia Basophilic Stippling ESR (0-20) mm/hr Sample Site ABG Sample Site ABG pH (7.35-7.45) ABG pCO2 (35-45) mmHg ABG pO2 (80-105) mmHg ABG HCO3 (22-26) mmol/L ABG Total CO2 (23-27) mmol/L ABG O2 Saturation (95-98) % ABG Base Excess (-2-3) mmol/L VBG Lactate (0.6-1.4) mmol/L Oxygen Liter Flow FiO2 FiO2 (liters per min) L Sodium (136-145) mmol/L 140 142 Potassium (3.5-5.1) mmol/L 3.9 3.4 L Chloride (98-107) mmol/L 102 104 Carbon Dioxide (21.0-32.0) mmol/L 25.8 24.5 Anion Gap (3-11) mmol/L 12.2 H 13.5 H BUN (7-18) mg/dL 33 H 34 H Creatinine (0.70-1.30) mg/dL 1.6 H 1.7 H Estimated GFR/1.73 m2 (mL/min/1.73m2) 41.69 38.88 Glucose (74-106) mg/dL 197 H D 203 H Calcium (8.5-10.1) mg/dL 8.8 9.2 Magnesium (1.8-2.4) mg/dL Ferritin (22-322) ng/mL Total Bilirubin (0.2-1.0) mg/dL Conjugated Bilirubin (0.0-0.2) mg/dL AST (15-37) U/L ALT (16-63) U/L Alkaline Phosphatase (46-116) U/L Troponin I (<or=60) ng/L C-Reactive Protein (0.0-0.3) mg/dL NT-Pro-B Natriuret Pep (<300) pg/mL Total Protein (6.4-8.2) g/dL Albumin (3.4-5.0) g/dL Procalcitonin ng/mL TSH (0.36-3.74) uIU/mL 0.50 C. albicans Allerg IgE kU/L M. racemosus Allrg IgE kU/L Urine Color (Yellow) Urine Clarity (Clear) Urine pH (5-8) Ur Specific [place] (1.005-1.025) Urine Protein (Negative) mg/dL Urine Ketones (Negative) mg/dL Urine Blood (Negative) Urine Nitrite (Negative) Urine Bilirubin (Negative) Urine Urobilinogen (Up TO 0.2) EU/dL Ur Leukocyte Esterase (Negative) Urine RBC (0-2) HPF Urine WBC (0-5) HPF Ur Epithelial Cells (Negative) HPF Urine Crystals (Negative) HPF Urine Bacteria (Negative) HPF Urine Casts (Negative) LPF Urine Mucus (Negative) Ur Culture Indicated? Urine Glucose (Negative) mg/dL Fluid Source Fluid Color Fluid Clarity Fluid WBC Fld Polynuclear WBCs % Fluid Mononuclear Cell Fluid Other Cells Vancomycin Trough Rheumatoid Factor (<12.0) IU/mL Cyclic Citrull Peptide (<5.0) U/mL ANNIE Titer ANNIE Titer 2 ANNIE Titer 3 ANNIE Interpretation (Negative) ANCA Immunofluorescen (Negative) ANCA Titer ANCA Pattern SS-A Antibody (<20.0) Units SS-B Antibody (<20.0) Units Scl-70 IgG Ab U Double Strand DNA Ab (<30.0) IU/mL Gram Stain Adenovirus DNA (Negative) Blastomyces Ag Result Blastomyces Ag Comment ng/mL COVID-19 Source SARS-CoV-2 (PCR) (Negative) Urine Histoplasma Ag U Histoplasma Ag Index ng/mL Human Metapneumovir RNA (Negative) Influenza Type A (PCR) (Negative) Influenza Type B (PCR) (Negative) L.pneumophila Antibody (Negative) Urine Legionella Ag (Negative) M. pneumoniae Source M. pneumoniae (PCR) Parainfluenza 1 (PCR) (Negative) Parainfluenza 2 (PCR) (Negative) Parainfluenza 3 (PCR) (Negative) Parainfluenza 4 (PCR) (Negative) Aspergillus Ag (EIA) (<0.5) index A. fumigatus IgG Ab (<=102) mg/L RSV (PCR) (Negative) Resp Viral Spec Desc Rhinovirus (PCR) (Negative) AFB Source AFB Culture Final Res Aerobic Culture Fungal Specimen Source B-(1,3)-D-Glucan Quant (<60 pg/mL) pg/mL B-(1,3)-D-Glucan Qual (Negative) Fungal Culture Status Fungal Culture Final Fungal Smear Result M. Tuberculosis PCR Path Cons Comment AFB Smear (Ref Lab) Add-On Test Request Miscellaneous Test Ref Test Specimen Type Ref Report Verification Range/Units 11/04/21 11/04/21 11/04/21 06:40 19:35 19:35 WBC (4.4-10.8) 10^3/uL 14.11 H D RBC (4.36-5.78) 10^6/uL 3.38 L Hgb (13.5-17.5) g/dL 11.1 L Hct (40.0-50.0) % 33.6 L MCV (80-95) fL 99.4 H MCH (27.0-33.0) pg 32.8 MCHC (32.0-36.0) % 33.0 RDW (11.8-14.1) % 13.0 Plt Count (130-400) 10^3/uL 179 MPV (8.0-11.0) fL 10.8 Immature Gran % 0.9 Neutrophils % 93.0 Band Neutrophils % Lymphocytes % 2.7 Atypical Lymphs % Monocytes % 3.3 Eosinophils % 0.0 Basophils % 0.1 Metamyelocytes % Myelocytes % Nucleated RBC % % 0 Absolute Neutrophils (1.2-6.7) 10^3/uL 13.12 H Absolute Lymphocytes (1.2-3.4) 10^3/uL 0.38 L Absolute Monocytes (0.1-0.8) 10^3/uL 0.47 Absolute Eosinophils (0.0-0.7) 10^3/uL 0.00 Absolute Basophils (0.0-0.2) 10^3/uL 0.01 RBC Morphology Polychromasia Basophilic Stippling ESR (0-20) mm/hr Sample Site ABG Sample Site ABG pH (7.35-7.45) ABG pCO2 (35-45) mmHg ABG pO2 (80-105) mmHg ABG HCO3 (22-26) mmol/L ABG Total CO2 (23-27) mmol/L ABG O2 Saturation (95-98) % ABG Base Excess (-2-3) mmol/L VBG Lactate (0.6-1.4) mmol/L Oxygen Liter Flow FiO2 FiO2 (liters per min) L Sodium (136-145) mmol/L Potassium (3.5-5.1) mmol/L Chloride (98-107) mmol/L Carbon Dioxide (21.0-32.0) mmol/L Anion Gap (3-11) mmol/L BUN (7-18) mg/dL Creatinine (0.70-1.30) mg/dL Estimated GFR/1.73 m2 (mL/min/1.73m2) Glucose (74-106) mg/dL Calcium (8.5-10.1) mg/dL Magnesium (1.8-2.4) mg/dL Ferritin (22-322) ng/mL Total Bilirubin (0.2-1.0) mg/dL Conjugated Bilirubin (0.0-0.2) mg/dL AST (15-37) U/L ALT (16-63) U/L Alkaline Phosphatase (46-116) U/L Troponin I (<or=60) ng/L C-Reactive Protein (0.0-0.3) mg/dL NT-Pro-B Natriuret Pep (<300) pg/mL Total Protein (6.4-8.2) g/dL Albumin (3.4-5.0) g/dL Procalcitonin ng/mL TSH (0.36-3.74) uIU/mL C. albicans Allerg IgE kU/L M. racemosus Allrg IgE kU/L Urine Color (Yellow) Yellow Urine Clarity (Clear) Sl Cloudy Urine pH (5-8) 5.5 Ur Specific [place] (1.005-1.025) >= 1.030 H Urine Protein (Negative) mg/dL 30 H Urine Ketones (Negative) mg/dL Negative Urine Blood (Negative) Large H Urine Nitrite (Negative) Negative Urine Bilirubin (Negative) Negative Urine Urobilinogen (Up TO 0.2) EU/dL 0.2 Ur Leukocyte Esterase (Negative) Negative Urine RBC (0-2) HPF >50 H Urine WBC (0-5) HPF 0-2 Ur Epithelial Cells (Negative) HPF Negative Urine Crystals (Negative) HPF Moderate Uric Acid Urine Bacteria (Negative) HPF Few Urine Casts (Negative) LPF Urine Mucus (Negative) Negative Ur Culture Indicated? No Urine Glucose (Negative) mg/dL Negative Fluid Source Fluid Color Fluid Clarity Fluid WBC Fld Polynuclear WBCs % Fluid Mononuclear Cell Fluid Other Cells Vancomycin Trough Rheumatoid Factor (<12.0) IU/mL Cyclic Citrull Peptide (<5.0) U/mL ANNIE Titer ANNIE Titer 2 ANNIE Titer 3 ANNIE Interpretation (Negative) ANCA Immunofluorescen (Negative) ANCA Titer ANCA Pattern SS-A Antibody (<20.0) Units SS-B Antibody (<20.0) Units Scl-70 IgG Ab U Double Strand DNA Ab (<30.0) IU/mL Gram Stain Adenovirus DNA (Negative) Blastomyces Ag Result Blastomyces Ag Comment ng/mL COVID-19 Source SARS-CoV-2 (PCR) (Negative) Urine Histoplasma Ag U Histoplasma Ag Index ng/mL Human Metapneumovir RNA (Negative) Influenza Type A (PCR) (Negative) Influenza Type B (PCR) (Negative) L.pneumophila Antibody (Negative) Urine Legionella Ag (Negative) Negative M. pneumoniae Source M. pneumoniae (PCR) Parainfluenza 1 (PCR) (Negative) Parainfluenza 2 (PCR) (Negative) Parainfluenza 3 (PCR) (Negative) Parainfluenza 4 (PCR) (Negative) Aspergillus Ag (EIA) (<0.5) index A. fumigatus IgG Ab (<=102) mg/L RSV (PCR) (Negative) Resp Viral Spec Desc Rhinovirus (PCR) (Negative) AFB Source AFB Culture Final Res Aerobic Culture Fungal Specimen Source B-(1,3)-D-Glucan Quant (<60 pg/mL) pg/mL B-(1,3)-D-Glucan Qual (Negative) Fungal Culture Status Fungal Culture Final Fungal Smear Result M. Tuberculosis PCR Path Cons Comment AFB Smear (Ref Lab) Add-On Test Request Miscellaneous Test Ref Test Specimen Type Ref Report Verification Range/Units 11/04/21 11/04/21 11/05/21 19:35 19:35 07:50 WBC (4.4-10.8) 10^3/uL RBC (4.36-5.78) 10^6/uL Hgb (13.5-17.5) g/dL Hct (40.0-50.0) % MCV (80-95) fL MCH (27.0-33.0) pg MCHC (32.0-36.0) % RDW (11.8-14.1) % Plt Count (130-400) 10^3/uL MPV (8.0-11.0) fL Immature Gran % Neutrophils % Band Neutrophils % Lymphocytes % Atypical Lymphs % Monocytes % Eosinophils % Basophils % Metamyelocytes % Myelocytes % Nucleated RBC % % Absolute Neutrophils (1.2-6.7) 10^3/uL Absolute Lymphocytes (1.2-3.4) 10^3/uL Absolute Monocytes (0.1-0.8) 10^3/uL Absolute Eosinophils (0.0-0.7) 10^3/uL Absolute Basophils (0.0-0.2) 10^3/uL RBC Morphology Polychromasia Basophilic Stippling ESR (0-20) mm/hr Sample Site ABG Sample Site ABG pH (7.35-7.45) ABG pCO2 (35-45) mmHg ABG pO2 (80-105) mmHg ABG HCO3 (22-26) mmol/L ABG Total CO2 (23-27) mmol/L ABG O2 Saturation (95-98) % ABG Base Excess (-2-3) mmol/L VBG Lactate (0.6-1.4) mmol/L Oxygen Liter Flow FiO2 FiO2 (liters per min) L Sodium (136-145) mmol/L 141 Potassium (3.5-5.1) mmol/L 3.4 L Chloride (98-107) mmol/L 103 Carbon Dioxide (21.0-32.0) mmol/L 23.6 Anion Gap (3-11) mmol/L 14.4 H BUN (7-18) mg/dL 41 H Creatinine (0.70-1.30) mg/dL 2.0 H Estimated GFR/1.73 m2 (mL/min/1.73m2) 32.23 Glucose (74-106) mg/dL 180 H Calcium (8.5-10.1) mg/dL 9.5 Magnesium (1.8-2.4) mg/dL Ferritin (22-322) ng/mL Total Bilirubin (0.2-1.0) mg/dL Conjugated Bilirubin (0.0-0.2) mg/dL AST (15-37) U/L ALT (16-63) U/L Alkaline Phosphatase (46-116) U/L Troponin I (<or=60) ng/L C-Reactive Protein (0.0-0.3) mg/dL NT-Pro-B Natriuret Pep (<300) pg/mL Total Protein (6.4-8.2) g/dL Albumin (3.4-5.0) g/dL Procalcitonin ng/mL TSH (0.36-3.74) uIU/mL C. albicans Allerg IgE kU/L M. racemosus Allrg IgE kU/L Urine Color (Yellow) Urine Clarity (Clear) Urine pH (5-8) Ur Specific [place] (1.005-1.025) Urine Protein (Negative) mg/dL Urine Ketones (Negative) mg/dL Urine Blood (Negative) Urine Nitrite (Negative) Urine Bilirubin (Negative) Urine Urobilinogen (Up TO 0.2) EU/dL Ur Leukocyte Esterase (Negative) Urine RBC (0-2) HPF Urine WBC (0-5) HPF Ur Epithelial Cells (Negative) HPF Urine Crystals (Negative) HPF Urine Bacteria (Negative) HPF Urine Casts (Negative) LPF Urine Mucus (Negative) Ur Culture Indicated? Urine Glucose (Negative) mg/dL Fluid Source Fluid Color Fluid Clarity Fluid WBC Fld Polynuclear WBCs % Fluid Mononuclear Cell Fluid Other Cells Vancomycin Trough Rheumatoid Factor (<12.0) IU/mL Cyclic Citrull Peptide (<5.0) U/mL ANNIE Titer ANNIE Titer 2 ANNIE Titer 3 ANNIE Interpretation (Negative) ANCA Immunofluorescen (Negative) ANCA Titer ANCA Pattern SS-A Antibody (<20.0) Units SS-B Antibody (<20.0) Units Scl-70 IgG Ab U Double Strand DNA Ab (<30.0) IU/mL Gram Stain Adenovirus DNA (Negative) Blastomyces Ag Result Not Detected Blastomyces Ag Comment ng/mL Not Detected COVID-19 Source SARS-CoV-2 (PCR) (Negative) Urine Histoplasma Ag Not Detected U Histoplasma Ag Index ng/mL Not Detected Human Metapneumovir RNA (Negative) Influenza Type A (PCR) (Negative) Influenza Type B (PCR) (Negative) L.pneumophila Antibody (Negative) Urine Legionella Ag (Negative) M. pneumoniae Source M. pneumoniae (PCR) Parainfluenza 1 (PCR) (Negative) Parainfluenza 2 (PCR) (Negative) Parainfluenza 3 (PCR) (Negative) Parainfluenza 4 (PCR) (Negative) Aspergillus Ag (EIA) (<0.5) index A. fumigatus IgG Ab (<=102) mg/L RSV (PCR) (Negative) Resp Viral Spec Desc Rhinovirus (PCR) (Negative) AFB Source AFB Culture Final Res Aerobic Culture Fungal Specimen Source B-(1,3)-D-Glucan Quant (<60 pg/mL) pg/mL B-(1,3)-D-Glucan Qual (Negative) Fungal Culture Status Fungal Culture Final Fungal Smear Result M. Tuberculosis PCR Path Cons Comment AFB Smear (Ref Lab) Add-On Test Request Miscellaneous Test Ref Test Specimen Type Ref Report Verification Range/Units 11/05/21 11/05/21 11/05/21 07:50 07:50 07:50 WBC (4.4-10.8) 10^3/uL RBC (4.36-5.78) 10^6/uL Hgb (13.5-17.5) g/dL Hct (40.0-50.0) % MCV (80-95) fL MCH (27.0-33.0) pg MCHC (32.0-36.0) % RDW (11.8-14.1) % Plt Count (130-400) 10^3/uL MPV (8.0-11.0) fL Immature Gran % Neutrophils % Band Neutrophils % Lymphocytes % Atypical Lymphs % Monocytes % Eosinophils % Basophils % Metamyelocytes % Myelocytes % Nucleated RBC % % Absolute Neutrophils (1.2-6.7) 10^3/uL Absolute Lymphocytes (1.2-3.4) 10^3/uL Absolute Monocytes (0.1-0.8) 10^3/uL Absolute Eosinophils (0.0-0.7) 10^3/uL Absolute Basophils (0.0-0.2) 10^3/uL RBC Morphology Polychromasia Basophilic Stippling ESR (0-20) mm/hr 29 H Sample Site ABG Sample Site ABG pH (7.35-7.45) ABG pCO2 (35-45) mmHg ABG pO2 (80-105) mmHg ABG HCO3 (22-26) mmol/L ABG Total CO2 (23-27) mmol/L ABG O2 Saturation (95-98) % ABG Base Excess (-2-3) mmol/L VBG Lactate (0.6-1.4) mmol/L Oxygen Liter Flow FiO2 FiO2 (liters per min) L Sodium (136-145) mmol/L Potassium (3.5-5.1) mmol/L Chloride (98-107) mmol/L Carbon Dioxide (21.0-32.0) mmol/L Anion Gap (3-11) mmol/L BUN (7-18) mg/dL Creatinine (0.70-1.30) mg/dL Estimated GFR/1.73 m2 (mL/min/1.73m2) Glucose (74-106) mg/dL Calcium (8.5-10.1) mg/dL Magnesium (1.8-2.4) mg/dL Ferritin (22-322) ng/mL Total Bilirubin (0.2-1.0) mg/dL Conjugated Bilirubin (0.0-0.2) mg/dL AST (15-37) U/L ALT (16-63) U/L Alkaline Phosphatase (46-116) U/L Troponin I (<or=60) ng/L C-Reactive Protein (0.0-0.3) mg/dL 9.36 H NT-Pro-B Natriuret Pep (<300) pg/mL Total Protein (6.4-8.2) g/dL Albumin (3.4-5.0) g/dL Procalcitonin ng/mL TSH (0.36-3.74) uIU/mL C. albicans Allerg IgE kU/L M. racemosus Allrg IgE kU/L Urine Color (Yellow) Urine Clarity (Clear) Urine pH (5-8) Ur Specific [place] (1.005-1.025) Urine Protein (Negative) mg/dL Urine Ketones (Negative) mg/dL Urine Blood (Negative) Urine Nitrite (Negative) Urine Bilirubin (Negative) Urine Urobilinogen (Up TO 0.2) EU/dL Ur Leukocyte Esterase (Negative) Urine RBC (0-2) HPF Urine WBC (0-5) HPF Ur Epithelial Cells (Negative) HPF Urine Crystals (Negative) HPF Urine Bacteria (Negative) HPF Urine Casts (Negative) LPF Urine Mucus (Negative) Ur Culture Indicated? Urine Glucose (Negative) mg/dL Fluid Source Fluid Color Fluid Clarity Fluid WBC Fld Polynuclear WBCs % Fluid Mononuclear Cell Fluid Other Cells Vancomycin Trough Rheumatoid Factor (<12.0) IU/mL Cyclic Citrull Peptide (<5.0) U/mL ANNIE Titer ANNIE Titer 2 ANNIE Titer 3 ANNIE Interpretation (Negative) ANCA Immunofluorescen (Negative) ANCA Titer ANCA Pattern SS-A Antibody (<20.0) Units 1.0 SS-B Antibody (<20.0) Units Scl-70 IgG Ab U Double Strand DNA Ab (<30.0) IU/mL <12.3 Gram Stain Adenovirus DNA (Negative) Blastomyces Ag Result Blastomyces Ag Comment ng/mL COVID-19 Source SARS-CoV-2 (PCR) (Negative) Urine Histoplasma Ag U Histoplasma Ag Index ng/mL Human Metapneumovir RNA (Negative) Influenza Type A (PCR) (Negative) Influenza Type B (PCR) (Negative) L.pneumophila Antibody (Negative) Urine Legionella Ag (Negative) M. pneumoniae Source M. pneumoniae (PCR) Parainfluenza 1 (PCR) (Negative) Parainfluenza 2 (PCR) (Negative) Parainfluenza 3 (PCR) (Negative) Parainfluenza 4 (PCR) (Negative) Aspergillus Ag (EIA) (<0.5) index A. fumigatus IgG Ab (<=102) mg/L RSV (PCR) (Negative) Resp Viral Spec Desc Rhinovirus (PCR) (Negative) AFB Source AFB Culture Final Res Aerobic Culture Fungal Specimen Source B-(1,3)-D-Glucan Quant (<60 pg/mL) pg/mL B-(1,3)-D-Glucan Qual (Negative) Fungal Culture Status Fungal Culture Final Fungal Smear Result M. Tuberculosis PCR Path Cons Comment AFB Smear (Ref Lab) Add-On Test Request Miscellaneous Test Ref Test Specimen Type Ref Report Verification Range/Units 11/05/21 11/05/21 11/05/21 08:35 08:35 08:35 WBC (4.4-10.8) 10^3/uL RBC (4.36-5.78) 10^6/uL Hgb (13.5-17.5) g/dL Hct (40.0-50.0) % MCV (80-95) fL MCH (27.0-33.0) pg MCHC (32.0-36.0) % RDW (11.8-14.1) % Plt Count (130-400) 10^3/uL MPV (8.0-11.0) fL Immature Gran % Neutrophils % Band Neutrophils % Lymphocytes % Atypical Lymphs % Monocytes % Eosinophils % Basophils % Metamyelocytes % Myelocytes % Nucleated RBC % % Absolute Neutrophils (1.2-6.7) 10^3/uL Absolute Lymphocytes (1.2-3.4) 10^3/uL Absolute Monocytes (0.1-0.8) 10^3/uL Absolute Eosinophils (0.0-0.7) 10^3/uL Absolute Basophils (0.0-0.2) 10^3/uL RBC Morphology Polychromasia Basophilic Stippling ESR (0-20) mm/hr Sample Site ABG Sample Site ABG pH (7.35-7.45) ABG pCO2 (35-45) mmHg ABG pO2 (80-105) mmHg ABG HCO3 (22-26) mmol/L ABG Total CO2 (23-27) mmol/L ABG O2 Saturation (95-98) % ABG Base Excess (-2-3) mmol/L VBG Lactate (0.6-1.4) mmol/L Oxygen Liter Flow FiO2 FiO2 (liters per min) L Sodium (136-145) mmol/L Potassium (3.5-5.1) mmol/L Chloride (98-107) mmol/L Carbon Dioxide (21.0-32.0) mmol/L Anion Gap (3-11) mmol/L BUN (7-18) mg/dL Creatinine (0.70-1.30) mg/dL Estimated GFR/1.73 m2 (mL/min/1.73m2) Glucose (74-106) mg/dL Calcium (8.5-10.1) mg/dL Magnesium (1.8-2.4) mg/dL Ferritin (22-322) ng/mL Total Bilirubin (0.2-1.0) mg/dL Conjugated Bilirubin (0.0-0.2) mg/dL AST (15-37) U/L ALT (16-63) U/L Alkaline Phosphatase (46-116) U/L Troponin I (<or=60) ng/L C-Reactive Protein (0.0-0.3) mg/dL NT-Pro-B Natriuret Pep (<300) pg/mL Total Protein (6.4-8.2) g/dL Albumin (3.4-5.0) g/dL Procalcitonin ng/mL TSH (0.36-3.74) uIU/mL C. albicans Allerg IgE kU/L M. [employer] IgE kU/L Urine Color (Yellow) Urine Clarity (Clear) Urine pH (5-8) Ur Specific [place] (1.005-1.025) Urine Protein (Negative) mg/dL Urine Ketones (Negative) mg/dL Urine Blood (Negative) Urine Nitrite (Negative) Urine Bilirubin (Negative) Urine Urobilinogen (Up TO 0.2) EU/dL Ur Leukocyte Esterase (Negative) Urine RBC (0-2) HPF Urine WBC (0-5) HPF Ur Epithelial Cells (Negative) HPF Urine Crystals (Negative) HPF Urine Bacteria (Negative) HPF Urine Casts (Negative) LPF Urine Mucus (Negative) Ur Culture Indicated? Urine Glucose (Negative) mg/dL Fluid Source Fluid Color Fluid Clarity Fluid WBC Fld Polynuclear WBCs % Fluid Mononuclear Cell Fluid Other Cells Vancomycin Trough Rheumatoid Factor (<12.0) IU/mL 9.3 Cyclic Citrull Peptide (<5.0) U/mL <2.5 ANNIE Titer 1:160 Speckled ANNIE Titer 2 Not Applicable ANNIE Titer 3 Not Applicable ANNIE Interpretation (Negative) Positive A ANCA Immunofluorescen (Negative) Negative ANCA Titer Not Applicable ANCA Pattern Not Applicable SS-A Antibody (<20.0) Units SS-B Antibody (<20.0) Units 0.8 Scl-70 IgG Ab U <0.2 Double Strand DNA Ab (<30.0) IU/mL Gram Stain Adenovirus DNA (Negative) Blastomyces Ag Result Blastomyces Ag Comment ng/mL COVID-19 Source SARS-CoV-2 (PCR) (Negative) Urine Histoplasma Ag U Histoplasma Ag Index ng/mL Human Metapneumovir RNA (Negative) Influenza Type A (PCR) (Negative) Influenza Type B (PCR) (Negative) L.pneumophila Antibody (Negative) Urine Legionella Ag (Negative) M. pneumoniae Source M. pneumoniae (PCR) Parainfluenza 1 (PCR) (Negative) Parainfluenza 2 (PCR) (Negative) Parainfluenza 3 (PCR) (Negative) Parainfluenza 4 (PCR) (Negative) Aspergillus Ag (EIA) (<0.5) index A. fumigatus IgG Ab (<=102) mg/L RSV (PCR) (Negative) Resp Viral Spec Desc Rhinovirus (PCR) (Negative) AFB Source AFB Culture Final Res Aerobic Culture Fungal Specimen Source B-(1,3)-D-Glucan Quant (<60 pg/mL) pg/mL 149 A B-(1,3)-D-Glucan Qual (Negative) Positive A Fungal Culture Status Fungal Culture Final Fungal Smear Result M. Tuberculosis PCR Path Cons Comment AFB Smear (Ref Lab) Add-On Test Request Miscellaneous Test Ref Test Specimen Type Ref Report Verification Range/Units 11/05/21 11/06/21 11/06/21 13:00 06:21 06:21 WBC (4.4-10.8) 10^3/uL 10.75 RBC (4.36-5.78) 10^6/uL 3.44 L Hgb (13.5-17.5) g/dL 11.3 L Hct (40.0-50.0) % 34.4 L MCV (80-95) fL 100.0 H MCH (27.0-33.0) pg 32.8 MCHC (32.0-36.0) % 32.8 RDW (11.8-14.1) % 13.2 Plt Count (130-400) 10^3/uL 239 MPV (8.0-11.0) fL 10.5 Immature Gran % 3.1 Neutrophils % 85.9 Band Neutrophils % Lymphocytes % 4.8 Atypical Lymphs % Monocytes % 5.9 Eosinophils % 0.1 Basophils % 0.2 Metamyelocytes % Myelocytes % Nucleated RBC % % 0 Absolute Neutrophils (1.2-6.7) 10^3/uL 9.24 H Absolute Lymphocytes (1.2-3.4) 10^3/uL 0.52 L Absolute Monocytes (0.1-0.8) 10^3/uL 0.63 Absolute Eosinophils (0.0-0.7) 10^3/uL 0.01 Absolute Basophils (0.0-0.2) 10^3/uL 0.02 RBC Morphology Polychromasia Basophilic Stippling ESR (0-20) mm/hr Sample Site ABG Sample Site ABG pH (7.35-7.45) ABG pCO2 (35-45) mmHg ABG pO2 (80-105) mmHg ABG HCO3 (22-26) mmol/L ABG Total CO2 (23-27) mmol/L ABG O2 Saturation (95-98) % ABG Base Excess (-2-3) mmol/L VBG Lactate (0.6-1.4) mmol/L Oxygen Liter Flow FiO2 FiO2 (liters per min) L Sodium (136-145) mmol/L 142 Potassium (3.5-5.1) mmol/L 3.3 L Chloride (98-107) mmol/L 106 Carbon Dioxide (21.0-32.0) mmol/L 24.3 Anion Gap (3-11) mmol/L 11.7 H BUN (7-18) mg/dL 40 H Creatinine (0.70-1.30) mg/dL 1.6 H Estimated GFR/1.73 m2 (mL/min/1.73m2) 41.69 Glucose (74-106) mg/dL 147 H Calcium (8.5-10.1) mg/dL 9.3 Magnesium (1.8-2.4) mg/dL Ferritin (22-322) ng/mL Total Bilirubin (0.2-1.0) mg/dL Conjugated Bilirubin (0.0-0.2) mg/dL AST (15-37) U/L ALT (16-63) U/L Alkaline Phosphatase (46-116) U/L Troponin I (<or=60) ng/L C-Reactive Protein (0.0-0.3) mg/dL NT-Pro-B Natriuret Pep (<300) pg/mL Total Protein (6.4-8.2) g/dL Albumin (3.4-5.0) g/dL Procalcitonin ng/mL TSH (0.36-3.74) uIU/mL C. albicans Allerg IgE kU/L M. [employer] IgE kU/L Urine Color (Yellow) Urine Clarity (Clear) Urine pH (5-8) Ur Specific [place] (1.005-1.025) Urine Protein (Negative) mg/dL Urine Ketones (Negative) mg/dL Urine Blood (Negative) Urine Nitrite (Negative) Urine Bilirubin (Negative) Urine Urobilinogen (Up TO 0.2) EU/dL Ur Leukocyte Esterase (Negative) Urine RBC (0-2) HPF Urine WBC (0-5) HPF Ur Epithelial Cells (Negative) HPF Urine Crystals (Negative) HPF Urine Bacteria (Negative) HPF Urine Casts (Negative) LPF Urine Mucus (Negative) Ur Culture Indicated? Urine Glucose (Negative) mg/dL Fluid Source Fluid Color Fluid Clarity Fluid WBC Fld Polynuclear WBCs % Fluid Mononuclear Cell Fluid Other Cells Vancomycin Trough Cancelled Rheumatoid Factor (<12.0) IU/mL Cyclic Citrull Peptide (<5.0) U/mL ANNIE Titer ANNIE Titer 2 ANNIE Titer 3 ANNIE Interpretation (Negative) ANCA Immunofluorescen (Negative) ANCA Titer ANCA Pattern SS-A Antibody (<20.0) Units SS-B Antibody (<20.0) Units Scl-70 IgG Ab U Double Strand DNA Ab (<30.0) IU/mL Gram Stain Adenovirus DNA (Negative) Blastomyces Ag Result Blastomyces Ag Comment ng/mL COVID-19 Source SARS-CoV-2 (PCR) (Negative) Urine Histoplasma Ag U Histoplasma Ag Index ng/mL Human Metapneumovir RNA (Negative) Influenza Type A (PCR) (Negative) Influenza Type B (PCR) (Negative) L.pneumophila Antibody (Negative) Urine Legionella Ag (Negative) M. pneumoniae Source M. pneumoniae (PCR) Parainfluenza 1 (PCR) (Negative) Parainfluenza 2 (PCR) (Negative) Parainfluenza 3 (PCR) (Negative) Parainfluenza 4 (PCR) (Negative) Aspergillus Ag (EIA) (<0.5) index A. fumigatus IgG Ab (<=102) mg/L RSV (PCR) (Negative) Resp Viral Spec Desc Rhinovirus (PCR) (Negative) AFB Source AFB Culture Final Res Aerobic Culture Fungal Specimen Source B-(1,3)-D-Glucan Quant (<60 pg/mL) pg/mL B-(1,3)-D-Glucan Qual (Negative) Fungal Culture Status Fungal Culture Final Fungal Smear Result M. Tuberculosis PCR Path Cons Comment AFB Smear (Ref Lab) Add-On Test Request Miscellaneous Test Ref Test Specimen Type Ref Report Verification Range/Units 11/07/21 11/07/21 11/07/21 12:45 12:45 16:25 WBC (4.4-10.8) 10^3/uL RBC (4.36-5.78) 10^6/uL Hgb (13.5-17.5) g/dL Hct (40.0-50.0) % MCV (80-95) fL MCH (27.0-33.0) pg MCHC (32.0-36.0) % RDW (11.8-14.1) % Plt Count (130-400) 10^3/uL MPV (8.0-11.0) fL Immature Gran % Neutrophils % Band Neutrophils % Lymphocytes % Atypical Lymphs % Monocytes % Eosinophils % Basophils % Metamyelocytes % Myelocytes % Nucleated RBC % % Absolute Neutrophils (1.2-6.7) 10^3/uL Absolute Lymphocytes (1.2-3.4) 10^3/uL Absolute Monocytes (0.1-0.8) 10^3/uL Absolute Eosinophils (0.0-0.7) 10^3/uL Absolute Basophils (0.0-0.2) 10^3/uL RBC Morphology Polychromasia Basophilic Stippling ESR (0-20) mm/hr Sample Site ABG Sample Site ABG pH (7.35-7.45) ABG pCO2 (35-45) mmHg ABG pO2 (80-105) mmHg ABG HCO3 (22-26) mmol/L ABG Total CO2 (23-27) mmol/L ABG O2 Saturation (95-98) % ABG Base Excess (-2-3) mmol/L VBG Lactate (0.6-1.4) mmol/L Oxygen Liter Flow FiO2 FiO2 (liters per min) L Sodium (136-145) mmol/L Potassium (3.5-5.1) mmol/L Chloride (98-107) mmol/L Carbon Dioxide (21.0-32.0) mmol/L Anion Gap (3-11) mmol/L BUN (7-18) mg/dL Creatinine (0.70-1.30) mg/dL Estimated GFR/1.73 m2 (mL/min/1.73m2) Glucose (74-106) mg/dL Calcium (8.5-10.1) mg/dL Magnesium (1.8-2.4) mg/dL Ferritin (22-322) ng/mL Total Bilirubin (0.2-1.0) mg/dL Conjugated Bilirubin (0.0-0.2) mg/dL AST (15-37) U/L ALT (16-63) U/L Alkaline Phosphatase (46-116) U/L Troponin I (<or=60) ng/L C-Reactive Protein (0.0-0.3) mg/dL NT-Pro-B Natriuret Pep (<300) pg/mL Total Protein (6.4-8.2) g/dL Albumin (3.4-5.0) g/dL Procalcitonin ng/mL TSH (0.36-3.74) uIU/mL C. albicans Allerg IgE kU/L <0.35 M. [employer] IgE kU/L <0.35 Urine Color (Yellow) Urine Clarity (Clear) Urine pH (5-8) Ur Specific [place] (1.005-1.025) Urine Protein (Negative) mg/dL Urine Ketones (Negative) mg/dL Urine Blood (Negative) Urine Nitrite (Negative) Urine Bilirubin (Negative) Urine Urobilinogen (Up TO 0.2) EU/dL Ur Leukocyte Esterase (Negative) Urine RBC (0-2) HPF Urine WBC (0-5) HPF Ur Epithelial Cells (Negative) HPF Urine Crystals (Negative) HPF Urine Bacteria (Negative) HPF Urine Casts (Negative) LPF Urine Mucus (Negative) Ur Culture Indicated? Urine Glucose (Negative) mg/dL Fluid Source Fluid Color Fluid Clarity Fluid WBC Fld Polynuclear WBCs % Fluid Mononuclear Cell Fluid Other Cells Vancomycin Trough Rheumatoid Factor (<12.0) IU/mL Cyclic Citrull Peptide (<5.0) U/mL ANNIE Titer ANNIE Titer 2 ANNIE Titer 3 ANNIE Interpretation (Negative) ANCA Immunofluorescen (Negative) ANCA Titer ANCA Pattern SS-A Antibody (<20.0) Units SS-B Antibody (<20.0) Units Scl-70 IgG Ab U Double Strand DNA Ab (<30.0) IU/mL Gram Stain Adenovirus DNA (Negative) Blastomyces Ag Result Blastomyces Ag Comment ng/mL COVID-19 Source SARS-CoV-2 (PCR) (Negative) Urine Histoplasma Ag U Histoplasma Ag Index ng/mL Human Metapneumovir RNA (Negative) Influenza Type A (PCR) (Negative) Influenza Type B (PCR) (Negative) L.pneumophila Antibody (Negative) Urine Legionella Ag (Negative) M. pneumoniae Source M. pneumoniae (PCR) Parainfluenza 1 (PCR) (Negative) Parainfluenza 2 (PCR) (Negative) Parainfluenza 3 (PCR) (Negative) Parainfluenza 4 (PCR) (Negative) Aspergillus Ag (EIA) (<0.5) index <0.500 A. fumigatus IgG Ab (<=102) mg/L RSV (PCR) (Negative) Resp Viral Spec Desc Rhinovirus (PCR) (Negative) AFB Source AFB Culture Final Res Aerobic Culture Fungal Specimen Source B-(1,3)-D-Glucan Quant (<60 pg/mL) pg/mL B-(1,3)-D-Glucan Qual (Negative) Fungal Culture Status Fungal Culture Final Fungal Smear Result M. Tuberculosis PCR Path Cons Comment AFB Smear (Ref Lab) Add-On Test Request Miscellaneous Test Ref Test Specimen Type Ref Report Verification Range/Units 11/07/21 11/08/21 11/09/21 16:25 06:14 12:30 WBC (4.4-10.8) 10^3/uL RBC (4.36-5.78) 10^6/uL Hgb (13.5-17.5) g/dL Hct (40.0-50.0) % MCV (80-95) fL MCH (27.0-33.0) pg MCHC (32.0-36.0) % RDW (11.8-14.1) % Plt Count (130-400) 10^3/uL MPV (8.0-11.0) fL Immature Gran % Neutrophils % Band Neutrophils % Lymphocytes % Atypical Lymphs % Monocytes % Eosinophils % Basophils % Metamyelocytes % Myelocytes % Nucleated RBC % % Absolute Neutrophils (1.2-6.7) 10^3/uL Absolute Lymphocytes (1.2-3.4) 10^3/uL Absolute Monocytes (0.1-0.8) 10^3/uL Absolute Eosinophils (0.0-0.7) 10^3/uL Absolute Basophils (0.0-0.2) 10^3/uL RBC Morphology Polychromasia Basophilic Stippling ESR (0-20) mm/hr Sample Site ABG Sample Site ABG pH (7.35-7.45) ABG pCO2 (35-45) mmHg ABG pO2 (80-105) mmHg ABG HCO3 (22-26) mmol/L ABG Total CO2 (23-27) mmol/L ABG O2 Saturation (95-98) % ABG Base Excess (-2-3) mmol/L VBG Lactate (0.6-1.4) mmol/L Oxygen Liter Flow FiO2 FiO2 (liters per min) L Sodium (136-145) mmol/L 145 Potassium (3.5-5.1) mmol/L 4.1 D Chloride (98-107) mmol/L 108 H Carbon Dioxide (21.0-32.0) mmol/L 28.0 Anion Gap (3-11) mmol/L 9.0 BUN (7-18) mg/dL 35 H Creatinine (0.70-1.30) mg/dL 1.5 H Estimated GFR/1.73 m2 (mL/min/1.73m2) 44.92 Glucose (74-106) mg/dL 113 H Calcium (8.5-10.1) mg/dL 9.4 Magnesium (1.8-2.4) mg/dL Ferritin (22-322) ng/mL Total Bilirubin (0.2-1.0) mg/dL Conjugated Bilirubin (0.0-0.2) mg/dL AST (15-37) U/L ALT (16-63) U/L Alkaline Phosphatase (46-116) U/L Troponin I (<or=60) ng/L C-Reactive Protein (0.0-0.3) mg/dL NT-Pro-B Natriuret Pep (<300) pg/mL Total Protein (6.4-8.2) g/dL Albumin (3.4-5.0) g/dL Procalcitonin ng/mL TSH (0.36-3.74) uIU/mL C. albicans Allerg IgE kU/L M. [employer] All[employer] IgE kU/L Urine Color (Yellow) Urine Clarity (Clear) Urine pH (5-8) Ur Specific [place] (1.005-1.025) Urine Protein (Negative) mg/dL Urine Ketones (Negative) mg/dL Urine Blood (Negative) Urine Nitrite (Negative) Urine Bilirubin (Negative) Urine Urobilinogen (Up TO 0.2) EU/dL Ur Leukocyte Esterase (Negative) Urine RBC (0-2) HPF Urine WBC (0-5) HPF Ur Epithelial Cells (Negative) HPF Urine Crystals (Negative) HPF Urine Bacteria (Negative) HPF Urine Casts (Negative) LPF Urine Mucus (Negative) Ur Culture Indicated? Urine Glucose (Negative) mg/dL Fluid Source Fluid Color Fluid Clarity Fluid WBC Fld Polynuclear WBCs % Fluid Mononuclear Cell Fluid Other Cells Vancomycin Trough Rheumatoid Factor (<12.0) IU/mL Cyclic Citrull Peptide (<5.0) U/mL ANNIE Titer ANNIE Titer 2 ANNIE Titer 3 ANNIE Interpretation (Negative) ANCA Immunofluorescen (Negative) ANCA Titer ANCA Pattern SS-A Antibody (<20.0) Units SS-B Antibody (<20.0) Units Scl-70 IgG Ab U Double Strand DNA Ab (<30.0) IU/mL Gram Stain Adenovirus DNA (Negative) Blastomyces Ag Result Blastomyces Ag Comment ng/mL COVID-19 Source SARS-CoV-2 (PCR) (Negative) Urine Histoplasma Ag U Histoplasma Ag Index ng/mL Human Metapneumovir RNA (Negative) Influenza Type A (PCR) (Negative) Influenza Type B (PCR) (Negative) L.pneumophila Antibody (Negative) Urine Legionella Ag (Negative) M. pneumoniae Source M. pneumoniae (PCR) Parainfluenza 1 (PCR) (Negative) Parainfluenza 2 (PCR) (Negative) Parainfluenza 3 (PCR) (Negative) Parainfluenza 4 (PCR) (Negative) Aspergillus Ag (EIA) (<0.5) index A. fumigatus IgG Ab (<=102) mg/L RSV (PCR) (Negative) Resp Viral Spec Desc Rhinovirus (PCR) (Negative) AFB Source AFB Culture Final Res Aerobic Culture Fungal Specimen Source Cancelled B-(1,3)-D-Glucan Quant (<60 pg/mL) pg/mL 123 A B-(1,3)-D-Glucan Qual (Negative) Positive A Fungal Culture Status Cancelled Fungal Culture Final Cancelled Fungal Smear Result Cancelled M. Tuberculosis PCR Path Cons Comment AFB Smear (Ref Lab) Add-On Test Request Miscellaneous Test Ref Test Specimen Type Ref Report Verification Range/Units 11/09/21 11/09/21 11/09/21 12:30 12:30 12:30 WBC (4.4-10.8) 10^3/uL RBC (4.36-5.78) 10^6/uL Hgb (13.5-17.5) g/dL Hct (40.0-50.0) % MCV (80-95) fL MCH (27.0-33.0) pg MCHC (32.0-36.0) % RDW (11.8-14.1) % Plt Count (130-400) 10^3/uL MPV (8.0-11.0) fL Immature Gran % Neutrophils % Band Neutrophils % Lymphocytes % Atypical Lymphs % Monocytes % Eosinophils % Basophils % Metamyelocytes % Myelocytes % Nucleated RBC % % Absolute Neutrophils (1.2-6.7) 10^3/uL Absolute Lymphocytes (1.2-3.4) 10^3/uL Absolute Monocytes (0.1-0.8) 10^3/uL Absolute Eosinophils (0.0-0.7) 10^3/uL Absolute Basophils (0.0-0.2) 10^3/uL RBC Morphology Polychromasia Basophilic Stippling ESR (0-20) mm/hr Sample Site ABG Sample Site ABG pH (7.35-7.45) ABG pCO2 (35-45) mmHg ABG pO2 (80-105) mmHg ABG HCO3 (22-26) mmol/L ABG Total CO2 (23-27) mmol/L ABG O2 Saturation (95-98) % ABG Base Excess (-2-3) mmol/L VBG Lactate (0.6-1.4) mmol/L Oxygen Liter Flow FiO2 FiO2 (liters per min) L Sodium (136-145) mmol/L Potassium (3.5-5.1) mmol/L Chloride (98-107) mmol/L Carbon Dioxide (21.0-32.0) mmol/L Anion Gap (3-11) mmol/L BUN (7-18) mg/dL Creatinine (0.70-1.30) mg/dL Estimated GFR/1.73 m2 (mL/min/1.73m2) Glucose (74-106) mg/dL Calcium (8.5-10.1) mg/dL Magnesium (1.8-2.4) mg/dL Ferritin (22-322) ng/mL Total Bilirubin (0.2-1.0) mg/dL Conjugated Bilirubin (0.0-0.2) mg/dL AST (15-37) U/L ALT (16-63) U/L Alkaline Phosphatase (46-116) U/L Troponin I (<or=60) ng/L C-Reactive Protein (0.0-0.3) mg/dL NT-Pro-B Natriuret Pep (<300) pg/mL Total Protein (6.4-8.2) g/dL Albumin (3.4-5.0) g/dL Procalcitonin ng/mL TSH (0.36-3.74) uIU/mL C. albicans Allerg IgE kU/L M. racemosus Allrg IgE kU/L Urine Color (Yellow) Urine Clarity (Clear) Urine pH (5-8) Ur Specific [place] (1.005-1.025) Urine Protein (Negative) mg/dL Urine Ketones (Negative) mg/dL Urine Blood (Negative) Urine Nitrite (Negative) Urine Bilirubin (Negative) Urine Urobilinogen (Up TO 0.2) EU/dL Ur Leukocyte Esterase (Negative) Urine RBC (0-2) HPF Urine WBC (0-5) HPF Ur Epithelial Cells (Negative) HPF Urine Crystals (Negative) HPF Urine Bacteria (Negative) HPF Urine Casts (Negative) LPF Urine Mucus (Negative) Ur Culture Indicated? Urine Glucose (Negative) mg/dL Fluid Source Cancelled Fluid Color Cancelled Fluid Clarity Cancelled Fluid WBC Cancelled Fld Polynuclear WBCs % Cancelled Fluid Mononuclear Cell Cancelled Fluid Other Cells Cancelled Vancomycin Trough Rheumatoid Factor (<12.0) IU/mL Cyclic Citrull Peptide (<5.0) U/mL ANNIE Titer ANNIE Titer 2 ANNIE Titer 3 ANNIE Interpretation (Negative) ANCA Immunofluorescen (Negative) ANCA Titer ANCA Pattern SS-A Antibody (<20.0) Units SS-B Antibody (<20.0) Units Scl-70 IgG Ab U Double Strand DNA Ab (<30.0) IU/mL Gram Stain Adenovirus DNA (Negative) Blastomyces Ag Result Blastomyces Ag Comment ng/mL COVID-19 Source SARS-CoV-2 (PCR) (Negative) Urine Histoplasma Ag U Histoplasma Ag Index ng/mL Human Metapneumovir RNA (Negative) Influenza Type A (PCR) (Negative) Influenza Type B (PCR) (Negative) L.pneumophila Antibody (Negative) Urine Legionella Ag (Negative) M. pneumoniae Source M. pneumoniae (PCR) Parainfluenza 1 (PCR) (Negative) Parainfluenza 2 (PCR) (Negative) Parainfluenza 3 (PCR) (Negative) Parainfluenza 4 (PCR) (Negative) Aspergillus Ag (EIA) (<0.5) index A. fumigatus IgG Ab (<=102) mg/L RSV (PCR) (Negative) Resp Viral Spec Desc Rhinovirus (PCR) (Negative) AFB Source Cancelled AFB Culture Final Res Cancelled Aerobic Culture Fungal Specimen Source B-(1,3)-D-Glucan Quant (<60 pg/mL) pg/mL B-(1,3)-D-Glucan Qual (Negative) Fungal Culture Status Fungal Culture Final Fungal Smear Result M. Tuberculosis PCR Cancelled Path Cons Comment Cancelled AFB Smear (Ref Lab) Cancelled Add-On Test Request Miscellaneous Test See Comments Ref Test Specimen Type Ref Report Verification Range/Units 11/09/21 11/10/21 11/10/21 12:30 05:39 05:39 WBC (4.4-10.8) 10^3/uL 10.65 RBC (4.36-5.78) 10^6/uL 3.64 L Hgb (13.5-17.5) g/dL 11.9 L Hct (40.0-50.0) % 36.3 L MCV (80-95) fL 99.7 H MCH (27.0-33.0) pg 32.7 MCHC (32.0-36.0) % 32.8 RDW (11.8-14.1) % 12.8 Plt Count (130-400) 10^3/uL 307 MPV (8.0-11.0) fL 9.9 Immature Gran % 13.2 Neutrophils % 69.6 Band Neutrophils % Lymphocytes % 9.3 Atypical Lymphs % Monocytes % 3.5 Eosinophils % 3.8 Basophils % 0.6 Metamyelocytes % Myelocytes % Nucleated RBC % % 0 Absolute Neutrophils (1.2-6.7) 10^3/uL 7.41 H Absolute Lymphocytes (1.2-3.4) 10^3/uL 0.99 L Absolute Monocytes (0.1-0.8) 10^3/uL 0.37 Absolute Eosinophils (0.0-0.7) 10^3/uL 0.41 Absolute Basophils (0.0-0.2) 10^3/uL 0.06 RBC Morphology See Below Polychromasia Basophilic Stippling Present ESR (0-20) mm/hr Sample Site ABG Sample Site ABG pH (7.35-7.45) ABG pCO2 (35-45) mmHg ABG pO2 (80-105) mmHg ABG HCO3 (22-26) mmol/L ABG Total CO2 (23-27) mmol/L ABG O2 Saturation (95-98) % ABG Base Excess (-2-3) mmol/L VBG Lactate (0.6-1.4) mmol/L Oxygen Liter Flow FiO2 FiO2 (liters per min) L Sodium (136-145) mmol/L 140 Potassium (3.5-5.1) mmol/L 4.1 Chloride (98-107) mmol/L 103 Carbon Dioxide (21.0-32.0) mmol/L 30.0 Anion Gap (3-11) mmol/L 7.0 BUN (7-18) mg/dL 28 H Creatinine (0.70-1.30) mg/dL 1.4 H Estimated GFR/1.73 m2 (mL/min/1.73m2) 48.64 Glucose (74-106) mg/dL 130 H Calcium (8.5-10.1) mg/dL 8.7 Magnesium (1.8-2.4) mg/dL Ferritin (22-322) ng/mL Total Bilirubin (0.2-1.0) mg/dL Conjugated Bilirubin (0.0-0.2) mg/dL AST (15-37) U/L ALT (16-63) U/L Alkaline Phosphatase (46-116) U/L Troponin I (<or=60) ng/L C-Reactive Protein (0.0-0.3) mg/dL NT-Pro-B Natriuret Pep (<300) pg/mL Total Protein (6.4-8.2) g/dL Albumin (3.4-5.0) g/dL Procalcitonin ng/mL TSH (0.36-3.74) uIU/mL C. albicans Allerg IgE kU/L M. racemosus Allrg IgE kU/L Urine Color (Yellow) Urine Clarity (Clear) Urine pH (5-8) Ur Specific [place] (1.005-1.025) Urine Protein (Negative) mg/dL Urine Ketones (Negative) mg/dL Urine Blood (Negative) Urine Nitrite (Negative) Urine Bilirubin (Negative) Urine Urobilinogen (Up TO 0.2) EU/dL Ur Leukocyte Esterase (Negative) Urine RBC (0-2) HPF Urine WBC (0-5) HPF Ur Epithelial Cells (Negative) HPF Urine Crystals (Negative) HPF Urine Bacteria (Negative) HPF Urine Casts (Negative) LPF Urine Mucus (Negative) Ur Culture Indicated? Urine Glucose (Negative) mg/dL Fluid Source Fluid Color Fluid Clarity Fluid WBC Fld Polynuclear WBCs % Fluid Mononuclear Cell Fluid Other Cells Vancomycin Trough Rheumatoid Factor (<12.0) IU/mL Cyclic Citrull Peptide (<5.0) U/mL ANNIE Titer ANNIE Titer 2 ANNIE Titer 3 ANNIE Interpretation (Negative) ANCA Immunofluorescen (Negative) ANCA Titer ANCA Pattern SS-A Antibody (<20.0) Units SS-B Antibody (<20.0) Units Scl-70 IgG Ab U Double Strand DNA Ab (<30.0) IU/mL Gram Stain Neutrophils Present A Adenovirus DNA (Negative) Blastomyces Ag Result Blastomyces Ag Comment ng/mL COVID-19 Source SARS-CoV-2 (PCR) (Negative) Urine Histoplasma Ag U Histoplasma Ag Index ng/mL Human Metapneumovir RNA (Negative) Influenza Type A (PCR) (Negative) Influenza Type B (PCR) (Negative) L.pneumophila Antibody (Negative) Urine Legionella Ag (Negative) M. pneumoniae Source M. pneumoniae (PCR) Parainfluenza 1 (PCR) (Negative) Parainfluenza 2 (PCR) (Negative) Parainfluenza 3 (PCR) (Negative) Parainfluenza 4 (PCR) (Negative) Aspergillus Ag (EIA) (<0.5) index A. fumigatus IgG Ab (<=102) mg/L RSV (PCR) (Negative) Resp Viral Spec Desc Rhinovirus (PCR) (Negative) AFB Source AFB Culture Final Res Aerobic Culture No Growth Fungal Specimen Source B-(1,3)-D-Glucan Quant (<60 pg/mL) pg/mL B-(1,3)-D-Glucan Qual (Negative) Fungal Culture Status Fungal Culture Final Fungal Smear Result M. Tuberculosis PCR Path Cons Comment AFB Smear (Ref Lab) Add-On Test Request Miscellaneous Test Ref Test Specimen Type Not Applicable Ref Report Verification Not Applicable Range/Units 11/11/21 11/11/21 11/12/21 06:10 06:10 06:34 WBC (4.4-10.8) 10^3/uL 10.76 RBC (4.36-5.78) 10^6/uL 3.71 L Hgb (13.5-17.5) g/dL 12.1 L Hct (40.0-50.0) % 36.7 L MCV (80-95) fL 98.9 H MCH (27.0-33.0) pg 32.6 MCHC (32.0-36.0) % 33.0 RDW (11.8-14.1) % 12.5 Plt Count (130-400) 10^3/uL 314 MPV (8.0-11.0) fL 9.8 Immature Gran % 11.4 Neutrophils % 70.0 Band Neutrophils % Lymphocytes % 9.9 Atypical Lymphs % Monocytes % 5.1 Eosinophils % 2.8 Basophils % 0.8 Metamyelocytes % Myelocytes % Nucleated RBC % % 0 Absolute Neutrophils (1.2-6.7) 10^3/uL 7.52 H Absolute Lymphocytes (1.2-3.4) 10^3/uL 1.07 L Absolute Monocytes (0.1-0.8) 10^3/uL 0.55 Absolute Eosinophils (0.0-0.7) 10^3/uL 0.30 Absolute Basophils (0.0-0.2) 10^3/uL 0.09 RBC Morphology See Below Polychromasia Basophilic Stippling Present ESR (0-20) mm/hr Sample Site ABG Sample Site ABG pH (7.35-7.45) ABG pCO2 (35-45) mmHg ABG pO2 (80-105) mmHg ABG HCO3 (22-26) mmol/L ABG Total CO2 (23-27) mmol/L ABG O2 Saturation (95-98) % ABG Base Excess (-2-3) mmol/L VBG Lactate (0.6-1.4) mmol/L Oxygen Liter Flow FiO2 FiO2 (liters per min) L Sodium (136-145) mmol/L 138 142 Potassium (3.5-5.1) mmol/L 4.5 4.4 Chloride (98-107) mmol/L 102 104 Carbon Dioxide (21.0-32.0) mmol/L 29.5 29.0 Anion Gap (3-11) mmol/L 6.5 9.0 BUN (7-18) mg/dL 39 H D 39 H Creatinine (0.70-1.30) mg/dL 1.8 H 1.7 H Estimated GFR/1.73 m2 (mL/min/1.73m2) 36.39 38.88 Glucose (74-106) mg/dL 109 H 91 Calcium (8.5-10.1) mg/dL 8.9 9.0 Magnesium (1.8-2.4) mg/dL 1.9 2.0 Ferritin (22-322) ng/mL Total Bilirubin (0.2-1.0) mg/dL 0.6 Conjugated Bilirubin (0.0-0.2) mg/dL 0.1 AST (15-37) U/L 20 ALT (16-63) U/L 33 Alkaline Phosphatase (46-116) U/L 71 Troponin I (<or=60) ng/L C-Reactive Protein (0.0-0.3) mg/dL 5.88 H NT-Pro-B Natriuret Pep (<300) pg/mL Total Protein (6.4-8.2) g/dL 6.0 L Albumin (3.4-5.0) g/dL 2.5 L Procalcitonin ng/mL TSH (0.36-3.74) uIU/mL C. albicans Allerg IgE kU/L M. racemosus Allrg IgE kU/L Urine Color (Yellow) Urine Clarity (Clear) Urine pH (5-8) Ur Specific [place] (1.005-1.025) Urine Protein (Negative) mg/dL Urine Ketones (Negative) mg/dL Urine Blood (Negative) Urine Nitrite (Negative) Urine Bilirubin (Negative) Urine Urobilinogen (Up TO 0.2) EU/dL Ur Leukocyte Esterase (Negative) Urine RBC (0-2) HPF Urine WBC (0-5) HPF Ur Epithelial Cells (Negative) HPF Urine Crystals (Negative) HPF Urine Bacteria (Negative) HPF Urine Casts (Negative) LPF Urine Mucus (Negative) Ur Culture Indicated? Urine Glucose (Negative) mg/dL Fluid Source Fluid Color Fluid Clarity Fluid WBC Fld Polynuclear WBCs % Fluid Mononuclear Cell Fluid Other Cells Vancomycin Trough Rheumatoid Factor (<12.0) IU/mL Cyclic Citrull Peptide (<5.0) U/mL ANNIE Titer ANNIE Titer 2 ANNIE Titer 3 ANNIE Interpretation (Negative) ANCA Immunofluorescen (Negative) ANCA Titer ANCA Pattern SS-A Antibody (<20.0) Units SS-B Antibody (<20.0) Units Scl-70 IgG Ab U Double Strand DNA Ab (<30.0) IU/mL Gram Stain Adenovirus DNA (Negative) Blastomyces Ag Result Blastomyces Ag Comment ng/mL COVID-19 Source SARS-CoV-2 (PCR) (Negative) Urine Histoplasma Ag U Histoplasma Ag Index ng/mL Human Metapneumovir RNA (Negative) Influenza Type A (PCR) (Negative) Influenza Type B (PCR) (Negative) L.pneumophila Antibody (Negative) Urine Legionella Ag (Negative) M. pneumoniae Source M. pneumoniae (PCR) Parainfluenza 1 (PCR) (Negative) Parainfluenza 2 (PCR) (Negative) Parainfluenza 3 (PCR) (Negative) Parainfluenza 4 (PCR) (Negative) Aspergillus Ag (EIA) (<0.5) index A. fumigatus IgG Ab (<=102) mg/L RSV (PCR) (Negative) Resp Viral Spec Desc Rhinovirus (PCR) (Negative) AFB Source AFB Culture Final Res Aerobic Culture Fungal Specimen Source B-(1,3)-D-Glucan Quant (<60 pg/mL) pg/mL B-(1,3)-D-Glucan Qual (Negative) Fungal Culture Status Fungal Culture Final Fungal Smear Result M. Tuberculosis PCR Path Cons Comment AFB Smear (Ref Lab) Add-On Test Request Miscellaneous Test Ref Test Specimen Type Ref Report Verification Range/Units 11/12/21 11/12/21 11/13/21 06:34 06:34 06:21 WBC (4.4-10.8) 10^3/uL 10.35 RBC (4.36-5.78) 10^6/uL 3.68 L Hgb (13.5-17.5) g/dL 12.1 L Hct (40.0-50.0) % 36.2 L MCV (80-95) fL 98.4 H MCH (27.0-33.0) pg 32.9 MCHC (32.0-36.0) % 33.4 RDW (11.8-14.1) % 12.6 Plt Count (130-400) 10^3/uL 288 MPV (8.0-11.0) fL 9.8 Immature Gran % 0.0 Neutrophils % 62.0 Band Neutrophils % 7 Lymphocytes % 9.0 Atypical Lymphs % 2 Monocytes % 8.0 Eosinophils % 2.0 Basophils % 0.0 Metamyelocytes % 7 Myelocytes % 3 Nucleated RBC % % 0 Absolute Neutrophils (1.2-6.7) 10^3/uL 7.14 H Absolute Lymphocytes (1.2-3.4) 10^3/uL 1.14 L Absolute Monocytes (0.1-0.8) 10^3/uL 0.83 H Absolute Eosinophils (0.0-0.7) 10^3/uL 0.21 Absolute Basophils (0.0-0.2) 10^3/uL 0.00 RBC Morphology Normal Polychromasia Basophilic Stippling ESR (0-20) mm/hr Sample Site ABG Sample Site ABG pH (7.35-7.45) ABG pCO2 (35-45) mmHg ABG pO2 (80-105) mmHg ABG HCO3 (22-26) mmol/L ABG Total CO2 (23-27) mmol/L ABG O2 Saturation (95-98) % ABG Base Excess (-2-3) mmol/L VBG Lactate (0.6-1.4) mmol/L Oxygen Liter Flow FiO2 FiO2 (liters per min) L Sodium (136-145) mmol/L 140 Potassium (3.5-5.1) mmol/L 4.5 Chloride (98-107) mmol/L 101 Carbon Dioxide (21.0-32.0) mmol/L 31.1 Anion Gap (3-11) mmol/L 7.9 BUN (7-18) mg/dL 39 H Creatinine (0.70-1.30) mg/dL 1.9 H Estimated GFR/1.73 m2 (mL/min/1.73m2) 34.19 Glucose (74-106) mg/dL 115 H Calcium (8.5-10.1) mg/dL 9.1 Magnesium (1.8-2.4) mg/dL 1.9 Ferritin (22-322) ng/mL Total Bilirubin (0.2-1.0) mg/dL Conjugated Bilirubin (0.0-0.2) mg/dL AST (15-37) U/L ALT (16-63) U/L Alkaline Phosphatase (46-116) U/L Troponin I (<or=60) ng/L C-Reactive Protein (0.0-0.3) mg/dL NT-Pro-B Natriuret Pep (<300) pg/mL Total Protein (6.4-8.2) g/dL Albumin (3.4-5.0) g/dL Procalcitonin ng/mL TSH (0.36-3.74) uIU/mL C. albicans Allerg IgE kU/L M. racemosus Allrg IgE kU/L Urine Color (Yellow) Urine Clarity (Clear) Urine pH (5-8) Ur Specific [place] (1.005-1.025) Urine Protein (Negative) mg/dL Urine Ketones (Negative) mg/dL Urine Blood (Negative) Urine Nitrite (Negative) Urine Bilirubin (Negative) Urine Urobilinogen (Up TO 0.2) EU/dL Ur Leukocyte Esterase (Negative) Urine RBC (0-2) HPF Urine WBC (0-5) HPF Ur Epithelial Cells (Negative) HPF Urine Crystals (Negative) HPF Urine Bacteria (Negative) HPF Urine Casts (Negative) LPF Urine Mucus (Negative) Ur Culture Indicated? Urine Glucose (Negative) mg/dL Fluid Source Fluid Color Fluid Clarity Fluid WBC Fld Polynuclear WBCs % Fluid Mononuclear Cell Fluid Other Cells Vancomycin Trough Rheumatoid Factor (<12.0) IU/mL Cyclic Citrull Peptide (<5.0) U/mL ANNIE Titer ANNIE Titer 2 ANNIE Titer 3 ANNIE Interpretation (Negative) ANCA Immunofluorescen (Negative) ANCA Titer ANCA Pattern SS-A Antibody (<20.0) Units SS-B Antibody (<20.0) Units Scl-70 IgG Ab U Double Strand DNA Ab (<30.0) IU/mL Gram Stain Adenovirus DNA (Negative) Blastomyces Ag Result Blastomyces Ag Comment ng/mL COVID-19 Source SARS-CoV-2 (PCR) (Negative) Urine Histoplasma Ag U Histoplasma Ag Index ng/mL Human Metapneumovir RNA (Negative) Influenza Type A (PCR) (Negative) Influenza Type B (PCR) (Negative) L.pneumophila Antibody (Negative) Urine Legionella Ag (Negative) M. pneumoniae Source M. pneumoniae (PCR) Parainfluenza 1 (PCR) (Negative) Parainfluenza 2 (PCR) (Negative) Parainfluenza 3 (PCR) (Negative) Parainfluenza 4 (PCR) (Negative) Aspergillus Ag (EIA) (<0.5) index A. fumigatus IgG Ab (<=102) mg/L 11.1 RSV (PCR) (Negative) Resp Viral Spec Desc Rhinovirus (PCR) (Negative) AFB Source AFB Culture Final Res Aerobic Culture Fungal Specimen Source B-(1,3)-D-Glucan Quant (<60 pg/mL) pg/mL B-(1,3)-D-Glucan Qual (Negative) Fungal Culture Status Fungal Culture Final Fungal Smear Result M. Tuberculosis PCR Path Cons Comment AFB Smear (Ref Lab) Add-On Test Request Miscellaneous Test Ref Test Specimen Type Ref Report Verification Range/Units 11/13/21 11/14/21 11/14/21 06:21 06:11 06:11 WBC (4.4-10.8) 10^3/uL 11.82 H 12.42 H RBC (4.36-5.78) 10^6/uL 3.90 L 3.67 L Hgb (13.5-17.5) g/dL 12.6 L 12.2 L Hct (40.0-50.0) % 38.9 L 36.8 L MCV (80-95) fL 99.7 H 100.3 H MCH (27.0-33.0) pg 32.3 33.2 H MCHC (32.0-36.0) % 32.4 33.2 RDW (11.8-14.1) % 12.5 12.5 Plt Count (130-400) 10^3/uL 306 288 MPV (8.0-11.0) fL 9.7 9.7 Immature Gran % 0.0 See Differential Neutrophils % 61.0 67.0 Band Neutrophils % 3 23 Lymphocytes % 12.0 13.0 Atypical Lymphs % 1 Monocytes % 11.0 11.0 Eosinophils % 2.0 2.0 Basophils % 0.0 1.0 Metamyelocytes % 8 2 Myelocytes % 2 2 Nucleated RBC % % 0 0 Absolute Neutrophils (1.2-6.7) 10^3/uL 7.56 H 11.18 H Absolute Lymphocytes (1.2-3.4) 10^3/uL 1.54 1.61 Absolute Monocytes (0.1-0.8) 10^3/uL 1.30 H 1.37 H Absolute Eosinophils (0.0-0.7) 10^3/uL 0.24 0.25 Absolute Basophils (0.0-0.2) 10^3/uL 0.00 0.12 RBC Morphology Normal See Below Polychromasia Present Basophilic Stippling ESR (0-20) mm/hr Sample Site ABG Sample Site ABG pH (7.35-7.45) ABG pCO2 (35-45) mmHg ABG pO2 (80-105) mmHg ABG HCO3 (22-26) mmol/L ABG Total CO2 (23-27) mmol/L ABG O2 Saturation (95-98) % ABG Base Excess (-2-3) mmol/L VBG Lactate (0.6-1.4) mmol/L Oxygen Liter Flow FiO2 FiO2 (liters per min) L Sodium (136-145) mmol/L 140 Potassium (3.5-5.1) mmol/L 4.5 Chloride (98-107) mmol/L 101 Carbon Dioxide (21.0-32.0) mmol/L 30.1 Anion Gap (3-11) mmol/L 8.9 BUN (7-18) mg/dL 38 H Creatinine (0.70-1.30) mg/dL 1.7 H Estimated GFR/1.73 m2 (mL/min/1.73m2) 38.88 Glucose (74-106) mg/dL 103 Calcium (8.5-10.1) mg/dL 9.1 Magnesium (1.8-2.4) mg/dL 2.2 Ferritin (22-322) ng/mL Total Bilirubin (0.2-1.0) mg/dL Conjugated Bilirubin (0.0-0.2) mg/dL AST (15-37) U/L ALT (16-63) U/L Alkaline Phosphatase (46-116) U/L Troponin I (<or=60) ng/L C-Reactive Protein (0.0-0.3) mg/dL NT-Pro-B Natriuret Pep (<300) pg/mL Total Protein (6.4-8.2) g/dL Albumin (3.4-5.0) g/dL Procalcitonin ng/mL TSH (0.36-3.74) uIU/mL C. albicans Allerg IgE kU/L M. racemosus Allrg IgE kU/L Urine Color (Yellow) Urine Clarity (Clear) Urine pH (5-8) Ur Specific [place] (1.005-1.025) Urine Protein (Negative) mg/dL Urine Ketones (Negative) mg/dL Urine Blood (Negative) Urine Nitrite (Negative) Urine Bilirubin (Negative) Urine Urobilinogen (Up TO 0.2) EU/dL Ur Leukocyte Esterase (Negative) Urine RBC (0-2) HPF Urine WBC (0-5) HPF Ur Epithelial Cells (Negative) HPF Urine Crystals (Negative) HPF Urine Bacteria (Negative) HPF Urine Casts (Negative) LPF Urine Mucus (Negative) Ur Culture Indicated? Urine Glucose (Negative) mg/dL Fluid Source Fluid Color Fluid Clarity Fluid WBC Fld Polynuclear WBCs % Fluid Mononuclear Cell Fluid Other Cells Vancomycin Trough Rheumatoid Factor (<12.0) IU/mL Cyclic Citrull Peptide (<5.0) U/mL ANNIE Titer ANNIE Titer 2 ANNIE Titer 3 ANNIE Interpretation (Negative) ANCA Immunofluorescen (Negative) ANCA Titer ANCA Pattern SS-A Antibody (<20.0) Units SS-B Antibody (<20.0) Units Scl-70 IgG Ab U Double Strand DNA Ab (<30.0) IU/mL Gram Stain Adenovirus DNA (Negative) Blastomyces Ag Result Blastomyces Ag Comment ng/mL COVID-19 Source SARS-CoV-2 (PCR) (Negative) Urine Histoplasma Ag U Histoplasma Ag Index ng/mL Human Metapneumovir RNA (Negative) Influenza Type A (PCR) (Negative) Influenza Type B (PCR) (Negative) L.pneumophila Antibody (Negative) Urine Legionella Ag (Negative) M. pneumoniae Source M. pneumoniae (PCR) Parainfluenza 1 (PCR) (Negative) Parainfluenza 2 (PCR) (Negative) Parainfluenza 3 (PCR) (Negative) Parainfluenza 4 (PCR) (Negative) Aspergillus Ag (EIA) (<0.5) index A. fumigatus IgG Ab (<=102) mg/L RSV (PCR) (Negative) Resp Viral Spec Desc Rhinovirus (PCR) (Negative) AFB Source AFB Culture Final Res Aerobic Culture Fungal Specimen Source B-(1,3)-D-Glucan Quant (<60 pg/mL) pg/mL B-(1,3)-D-Glucan Qual (Negative) Fungal Culture Status Fungal Culture Final Fungal Smear Result M. Tuberculosis PCR Path Cons Comment AFB Smear (Ref Lab) Add-On Test Request Miscellaneous Test Ref Test Specimen Type Ref Report Verification Imaging Chest x-ray: report reviewed and image reviewed
--- NOTE | 2021-11-14 10:02 | RESPIRATORY ---
went up to do ox walk with pt- pt is being prepared for a bath by [employer]ED[employer] will try again.
--- NOTE | 2021-11-14 12:38 | PDOC.CMPRO ---
- If Service Date Differs Date of service: 11/14/21 Time of Service: 12:38 Care Management Progress Note S/O: Jarrod was sitting up in his chair when CM met with him. He stated that he is unsure if he is feeling better, or the same. He expressed frustration with his extended hospitalization, as he reports that he was hoping he would feel better by now. CM discussed his discharge plan, which will be for him to go to a SNF vs home. He reported that he doesn't feel that he can manage at home currently, and that he is still interested in short term rehab prior to returning home. CM sent his referral to the [facility], as this was his first choice, due to the location. He does have a tentative bed offer at [facility] as well. Jarrod can choose where he would like to have his rehab once CM has heard from both facilities. CM will continue to follow. A: Jarrod is an 81 year old male admitted to [facility] on 10/24/21 with Pneumonia, hypoxic respiratory failure P: Anticipate, Jarrod will go to a SNF for short term rehab prior to returning home. His sister will likely drive him home via private vehicle when ready vs facility transportation, if available. He will follow up with his PCP and discharge plan of care. CM will continue to follow.
--- NOTE | 2021-11-14 14:18 | W.PM.PROGNOT ---
Date of Service Date of service: 11/14/21 Time of Service: 14:18 Assessment and Plan Assessment and plan (1) Fungal pneumonia: Status: Acute Assessment and plan: Markedly improved. Continue empiric micafungin with plans to switch to voriconazole tomorrow. 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 Will need PO voriconazole 200 mg BID x 6 weeks (covered by Mr Solorzano's insurance: $226 copay if/when discharged home from SNF) (2) Acute respiratory failure with hypoxia: Status: Acute Assessment and plan: Improved. Continue antifungals, diuresis. Encourage pulmonary toileting. (3) Polymyalgia rheumatica: Assessment and plan: Continue prednisone dose at 7.5 mg daily. On fentanyl 12 mcg/hr for pain control. (4) Hypotension: Status: Resolved Assessment and plan: Tolerating diuresis, flomax. On midodrine. BP not warranting other medications at this time. (5) Acute kidney injury superimposed on chronic kidney disease: Assessment and plan: Resolved. (6) DVT prophylaxis: Status: Acute Assessment and plan: On apixiban (7) Discharge planning issues: Status: Acute Assessment and plan: DNR/DNI. Continues to require hospitalization. PT, Palliative care consulted. SNF on discharge. Subjective Subjective Interval history since last seen: Mr Solorzano states he is feeling better. He did notice that he was short of breath when ambulating, but he has no shortness of breath at rest. He is on 2L of O2 by NC at rest and 3-5L with activity. Endorses dizziness when he first gets up, denies chest pain, nausea. Exam Narrative Exam Narrative: General: elderly male who is looks even better than yesterday, A&Ox3 HEENT: EOMI, MMM Heart: RRR, no m/r/g Lungs: rales B, improved; diminished breath sounds at B bases Abdomen: soft,nontender, nondistended Extremities: trace BLE edema, L>R, better Objective Last Vital Signs Temp 36.7 C 11/14/21 11:30 Pulse 95 H 11/14/21 11:30 Resp 27 H 11/14/21 11:30 BP 107/72 11/14/21 11:30 Pulse Ox 98 11/14/21 11:30 Laboratory Results - last 24 hr 11/12/21 11/12/2122 06:34 11:15 06:11 WBC RBC Hgb Hct MCV MCH MCHC RDW Plt Count MPV Immature Gran % Neutrophils % Band Neutrophils % Lymphocytes % Monocytes % Eosinophils % Basophils % Metamyelocytes % Myelocytes % Nucleated RBC % Absolute Neutrophils Absolute Lymphocytes Absolute Monocytes Absolute Eosinophils Absolute Basophils RBC Morphology Polychromasia Sodium 140 Potassium 4.5 Chloride 101 Carbon Dioxide 30.1 Anion Gap 8.9 BUN 38 H Creatinine 1.7 H Estimated GFR/1.73 m2 38.88 Glucose 103 Calcium 9.1 Magnesium 2.2 A. fumigatus IgG Ab 11.1 B-(1,3)-D-Glucan Quant 137 A B-(1,3)-D-Glucan Qual Positive A 11/14/21 06:11 WBC 12.42 H RBC 3.67 L Hgb 12.2 L Hct 36.8 L MCV 100.3 H MCH 33.2 H MCHC 33.2 RDW 12.5 Plt Count 288 MPV 9.7 Immature Gran % See Differential Neutrophils % 67.0 Band Neutrophils % 23 Lymphocytes % 13.0 Monocytes % 11.0 Eosinophils % 2.0 Basophils % 1.0 Metamyelocytes % 2 Myelocytes % 2 Nucleated RBC % 0 Absolute Neutrophils 11.18 H Absolute Lymphocytes 1.61 Absolute Monocytes 1.37 H Absolute Eosinophils 0.25 Absolute Basophils 0.12 RBC Morphology See Below Polychromasia Present Sodium Potassium Chloride Carbon Dioxide Anion Gap BUN Creatinine Estimated GFR/1.73 m2 Glucose Calcium Magnesium A. fumigatus IgG Ab B-(1,3)-D-Glucan Quant B-(1,3)-D-Glucan Qual PAWSS Have you Been Recently Intoxicated or Drunk Within the Last 30 days?: No Have you Ever Experienced Previous Episodes of Alcohol Withdrawal?: No Have you ever Experienced Withdrawal Seizures?: No Have you ever Experienced Delirium Tremens(DT)s?: No Have you ever undergone Alcohol Rehabilitation Treatment (i.e, inpt ot outpatient treatment programs)?: No Have you ever Experienced Blackouts?: No Have you ever Combined Alcohol with other Downers within the last 90 days?: No Have you ever Combined Alcohol with any other Substance of Abuse during the last 90 days?: No Positive Blood Alcohol level on Presentation? [PCS.BAL]: No Evidence of Increased Autonomic Activity (i.e. HR>120, tremor, sweating, agitation, nausea)?: No Result: 0
[2021-11-14 15:02] LABS: Bands % 2
[2021-11-14 15:03] LABS: Absolute Neutrophil Count 8.57 10^3/uL (1.2-6.7)
--- NOTE | 2021-11-14 15:29 | PT.INPN ---
PT Notes Visit Reasons: Pneumonia Physical Therapy Inpatient [place] Note Date: 11/14/2021 Dates of Service: 11/07/2021 through 11/14/2021 Precautions: Fall. Standard. Activity as tolerated. Subjective:? Agreeable to both sessions today. Objective: General Observation: Seated on chair. On oxygen supplementation at 3 L per minute via NC. Mental Status: Alert and oriented as to person, place, time, and purpose. Able to pay attention, focus, and respond appropriately. Pain: Denies ROM: Right Upper Extremity: ? Shoulder Flexion WFL. Shoulder abduction WFL. Elbow flexion WFL. Wrist flexion WFL. Functional opening and closing of hand WFL. Left Upper Extremity:? Shoulder Flexion WFL. Shoulder abduction WFL. Elbow flexion WFL. Wrist flexion WFL. Functional opening and closing of hand WFL. Right Lower Extremity: Hip flexion WFL. Hip abduction WFL. Knee flexion WFL. Ankle dorsiflexion WFL. Ankle plantarflexion WFL. Left Lower Extremity: Hip flexion WFL. Hip abduction WFL. Knee flexion WFL. Ankle dorsiflexion WFL. Ankle plantarflexion WFL. Strength: Right Upper Extremity: Shoulder flexors 4-/5. Shoulder abductors 4-/5. Elbow flexors 4-/5. Elbow extensors 4-/5. Salvage Supervisor strong. Left Upper Extremity: Shoulder flexors 4-/5. Shoulder abductors 4-/5. Elbow flexors 4-/5. Elbow extensors 4-/5. Salvage Supervisor strong. Right Lower Extremity: Hip flexors 4-/5. Hip abductors 4-/5. Knee flexors 4-/5. Knee extensors 4-/5. Ankle dorsiflexors 3+/5. Ankle plantarflexors 3+/5. Left Lower Extremity: Hip flexors 4-/5. Hip abductors 4-/5. Knee flexors 4-/5. Knee extensors 4-/5. Ankle dorsiflexors 3+/5. Ankle plantarflexors 3+/5. Bed Mobility/Transfers: Sit to stand with independent Stand to sit with independent Gait: Tolerated level surface ambulation of 300 feet using front wheeled walker with full weight bearing requiring supervision and wheelchair follow with oxygen supplementation of up to 6 L, oxygen saturation low of 84% and high of 97% during activity.? Complains of bilateral lower extremity weakness and fatigue that resolves with rest. Balance: Static Sitting: Normal Dynamic Sitting: Normal Static Standing: Fair Dynamic Standing: Fair Special Tests: Mobility Limitations Standardized Measure [facility]-PAC 6 clicks Basic Mobility Inpatient Short Form: Raw Score: 23 ? CMS Score: 11% deficit? ? ? Informed Consent/Education:? Patient was instructed in purpose of PT consult and plan of care. Agreeable to proceed with established PT POC to achieve personal goals. Assessment: Patient continues to be limited by decreasing saturation levels which lead to dyspnea and fatigue. Will downgrade goals to independent with all mobility ADL perforamnce using the FWW to conserve energy while minimizing decrease in saturation levels with activity. Patient continues to present with clinical signs and symptoms consistent with current/admitting diagnoses that have resulted to mobility limitations, gait instability, generalized weakness, and overall ADL decline as demonstrated by the following impairment level findings: 1.? Decreased strength to B UE/LE major muscle groups 2.? Impaired sitting/standing balance 3.? Impaired activity tolerance 4.? Shortness of breath 5.? Fatigue Impairments are contributing to the following functional limitations: 1.? Difficulty with ambulation without assistive device and physical assistance 2.? Increased completion time for mobility ADL performance 3.? Increased risk for falls 4.? Difficulty with managing steps alone safely Patient is assessed as a 01950 moderate? based on the following: History: 81-year-old malewith past medical history as indicated above Examination: Demonstrable impairment in strength, balance, and mobility level with underlying impairments and functional limitations as exhibited above as well as deficit score of 47% utilizing the [facility] Mobility Inpatient Short Form Presentation: Evolving Decision Makin moderate complexity Goals: Goals X1 week 1. Supine-Sit independent MET 2. Sit-Supine independent MET 3. Sit-Stand independent MET 4. Stand-Sit independent MET 5. Bed-Chair independent with no FWW NOT MET 6. Chair-Bed independent with no FWW NOT MET, DOWN GRADE TO WITH US OF FWW 7. Independent gait on level surface with use of FWW for at least? 300 feet without report of pain nor dyspnea NOT MET, CONTINUE 8. Good static and dynamic standing balance/tolerance NOT MET, CONTINUE Plan of Care/Treatment Plan: 1-2x/day, 7 days/week x 1 week. Plan of care has been reviewed with the MANAGER DELI providing the service under Physical Therapy direction. Initiate Physical Therapy intervention for pain management as needed, strengthening, bed mobility, transfers, gait, stairs, balance training, and use of assistive device. DISCHARGE RECOMMENDATIONS: [] ? Home with no services [] [] ? Home with services? [specify] [] ? Home with outpatient PT [] [X] ? SNF for continued rehabilitation.? Discharge to SNF when medically cleared by hospitalist.? Patient will benefit from snf facility placement for continued skilled physical therapy services in order to progress mobility level, strength, and balance to maximize functional outcomes. [] ? Newspaper Journalist Care [] [] ? SNF versus LTC based on ability to participate and progress [] TREATMENT CODE/TIME: Session 1-- 04551 x 16 minutes beginning at 11:56 AM. Session 2-- [id number] x 26 minutes beginning at 15:29 PM. Thank you for the opportunity to participate in the care of this patient. Pepper Woodard PT, DPT, CLT [facility] [place], [place]
[2021-11-14] MEDS: Lidocaine 5% Patch 1 PATCH TP (17:13)
[2021-11-14] MEDS: rOPINIRole 1 MG TAB 2 MG PO (21:41)
[2021-11-14] MEDS: Tamsulosin 0.4 MG CAPCR 0.8 MG PO (21:41)
[2021-11-15] VITALS (10 sets, daily range): BP systolic 115–139; BP diastolic 73–92; PULSE 82–99; RESP 2–25; TEMP 35.9–36.8; O2SAT 93–100
[2021-11-15] MEDS: Lidocaine Patch Removal 1 EACH TD (05:42)
[2021-11-15] MEDS: Levothyroxine 75 MCG TAB PO (05:42)
[2021-11-15 06:40] LABS: Abs Immature Grans 0.98 10^3/uL (0.0-0.06); HCT 35.6 % (40.0-50.0); HGB 11.9 g/dL (13.5-17.5); MCHC 33.4 % (32.0-36.0); MCV 98.6 fL (80-95); MPV 9.9 fL (8.0-11.0); Nucleated RBC 0 %; RBC 3.61 10^6/uL (4.36-5.78); RDW 12.5 % (11.8-14.1); RDW-SD 45.5 fL; WBC 11.81 10^3/uL (4.4-10.8)
[2021-11-15 06:51] LABS: BUN 36 mg/dL (7-18); C-Reactive Protein 2.92 mg/dL (0.0-0.3); CREATININE 1.7 mg/dL (0.70-1.30); Calcium 8.9 mg/dL (8.5-10.1); Chloride 102 mmol/L (98-107); Estimated GFR 38.88 (mL/min/1.73m2); Glucose 116 mg/dL (74-106); Potassium 4.5 mmol/L (3.5-5.1); Sodium 140 mmol/L (136-145)
[2021-11-15 07:08] LABS: Platelet Count 247 10^3/uL (130-400)
[2021-11-15 07:09] LABS: Absolute Basophil Count 0.24 10^3/uL (0.0-0.2); Absolute Eosinophil Count 0.47 10^3/uL (0.0-0.7); Absolute Monocyte Count 1.18 10^3/uL (0.1-0.8); Absolute Neutrophil Count 8.39 10^3/uL (1.2-6.7); Bands % 3; Metamyelocytes % 2
[2021-11-15 07:10] LABS: Diff Comment Diff Reviewed; Polychromasia Present
[2021-11-15] MEDS: fentaNYL 12 MCG PATCH TD (08:18)
[2021-11-15] MEDS: Midodrine 2.5 MG TAB PO ×3 (08:19→19:49)
[2021-11-15] MEDS: predniSONE 5 MG TAB 7.5 MG PO (08:19)
[2021-11-15] MEDS: Cholecalciferol (Vitamin D3) 1,000 UNIT TAB 2000 UNITS PO (08:19)
[2021-11-15] MEDS: Docusate Sodium 100 MG CAP PO ×2 (08:19→19:49)
[2021-11-15] MEDS: guaiFENesin 600 MG TABCR 1200 MG PO ×2 (08:20→19:49)
[2021-11-15] MEDS: Cetirizine 10 MG TAB 5 MG PO (08:20)
[2021-11-15] MEDS: Potassium Chloride 20 MEQ TABCR PO ×2 (08:20→19:49)
[2021-11-15] MEDS: Sertraline 25 MG TAB PO (08:20)
[2021-11-15] MEDS: Fluticasone NASAL SPRAY 16 GM BTL NS ×2 (08:21→19:48)
[2021-11-15] MEDS: Furosemide 40 MG/4 ML VIAL IVP ×2 (08:21→16:34)
[2021-11-15] MEDS: Apixaban 5 MG TAB PO ×2 (08:21→19:49)
[2021-11-15] MEDS: Montelukast 10 MG TAB PO (08:21)
[2021-11-15] MEDS: Pantoprazole 40 MG TABCR PO (08:21)
[2021-11-15] MEDS: Ascorbic Acid 500 MG TAB PO ×2 (08:21→19:49)
[2021-11-15] MEDS: Finasteride 5 MG TAB PO (08:22)
[2021-11-15] MEDS: Normal Saline Flush 10 ML SYR IVP ×2 (08:22→16:34)
[2021-11-15] MEDS: Nystatin POWDER 60 GM JAR TP ×2 (08:23→19:53)
[2021-11-15] MEDS: Albuterol/Ipratropium 3 ML UPD VIAL UPD ×3 (10:04→19:49)
--- NOTE | 2021-11-15 10:50 | PTTR_ITS ---
Date of service: 11/15/21 Time of Service: 10:16 PT Notes Visit Reasons: Pneumonia Inpatient Physical Therapy Treatment Note [facility] Date: 11/15/2021 PRECAUTIONS: Activity as tolerated, monitor SaO2 SUBJECTIVE: Al is pleasant although remains discouraged that he is still not feeling well. He is agreeable to participating in PT. OBJECTIVE: Further gait training was held in a.m. due to patient needing to use restroom. Per RT, Meredith, patient to remain on 4L O2 supplemental oxygen at this time for gait training and ther ex completion for optimal oxygenation. PAIN: No c/o pain BED MOBILITY/TRANSFERS Sit-stand: I Stand-sit: I GAIT Assistive Device: FWW Weight bearing: Full Assist: S Distance: 100' + 50' x2 in a.m.; 150' x2 in p.m. Deviation: SOB, standing rest x2 in a.m.; SOB, seated rest in p.m. VITALS: SaO2: 84-95% on 2-4 L O2 with gait training in a.m.; SaO2: 83-97% on 3- 4L O2 with gait training in p.m. (p.m. session completed in collaboration with RT, please see their note for specific vital sign details). THEREX: Patient was instructed in a several standing LE strengthening exercises, as per flow sheet. Patient utilizes FWW for balance support with all exercises. He requires standing rests between exercises due to SOB. ASSESSMENT: Patient tolerated session with increasing SOB with gait training, as well as increasing supplemental O2 needs. PLAN: Continue with general conditioning for improved activity tolerance and global strengthening for improved mobility. TREATMENT CODE/TIME: Session 1: 18 minutes; 31829 (10:16) Session 2: 25 minutes; 00651 (2:54)
--- NOTE | 2021-11-15 15:58 | CMPROGNOTE_ITS ---
- If Service Date Differs Date of service: 11/15/21 Time of Service: 15:58 Care Management Progress Note S/O: Jarrod was sitting up in his chair when CM met with him. He reported that he continues to slowly improve, but he doesn't feel that he is back to normal. He is still planning to go to short term rehab, as he feels that he needs to continue strengthening prior to returning home. CM contacted the [facility] today, to inquire about his referral, which was resent yesterday. Per admissions, they are verifying his insurance, but have offered him a bed as long as his insurance approves the stay. CM will continue to follow. A: Jarrod is an 81 year old male admitted to [facility] on 10/24/21 with Pneumonia, hypoxic respiratory failure P: Anticipate Jarrod will go to a SNF for short term rehab prior to returning home. His sister will likely drive him home via private vehicle when ready vs facility transportation, if available. He will follow up with his PCP and discharge plan of care. CM will continue to follow.
--- NOTE | 2021-11-15 16:09 | W.PM.PROGNOT ---
Date of Service Date of service: 11/15/21 Time of Service: 16:10 Assessment and Plan Assessment and plan (1) Fungal pneumonia: Status: Acute Assessment and plan: Markedly improved. Switched to voriconazole today. 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 Will need PO voriconazole 200 mg BID x 6 weeks (covered by Mr Solorzano's insurance: $226 copay if/when discharged home from SNF) (2) Acute respiratory failure with hypoxia: Status: Acute Assessment and plan: Improved. Continue antifungals, diuresis (will give an extra dose of IV furosemide followed by PO in am tomorrow). Encourage pulmonary toileting. (3) Polymyalgia rheumatica: Assessment and plan: Continue prednisone dose at 7.5 mg daily. On fentanyl 12 mcg/hr for pain control. Continue PT. (4) Hypotension: Status: Resolved Assessment and plan: Tolerating diuresis, flomax. On midodrine. BP not warranting other medications at this time. (5) Acute kidney injury superimposed on chronic kidney disease: Assessment and plan: Resolved. (6) DVT prophylaxis: Status: Acute Assessment and plan: On apixiban (7) Discharge planning issues: Status: Acute Assessment and plan: DNR/DNI. Continues to require hospitalization. PT, Palliative care consulted. SNF on discharge, as soon as bed available - hopefully tomorrow. Subjective Subjective Interval history since last seen: Mr Solorzano does not feel like he is doing as well today - specifically, referring to breathing while working with PT. He needed 3L on ambulation and is requiring 1L of O2 at rest. He denies dizziness, chest pain, nausea. His buttocks are uncomfortable in a chair. He is sitting on a gel coushion and a pad. Exam Narrative Exam Narrative: General: elderly male who is looks even better than yesterday, A&Ox3 HEENT: EOMI, MMM Heart: RRR, no m/r/g Lungs: worsening rales B bases Abdomen: soft,nontender, nondistended Extremities: +1 BLE edema, L>R Objective Last Vital Signs Temp 36.0 C L 11/15/21 11:01 Pulse 99 H 11/15/21 11:01 Resp 25 H 11/15/21 15:20 BP 115/78 11/15/21 11:01 Pulse Ox 95 11/15/21 15:22 Laboratory Results - last 24 hr 11/12/21 11/15/21 11/15/21 11:15 06:19 06:19 WBC 11.81 H RBC 3.61 L Hgb 11.9 L Hct 35.6 L MCV 98.6 H MCH 33.0 MCHC 33.4 RDW 12.5 Plt Count 247 MPV 9.9 Immature Gran % See Differential Neutrophils % 68.0 Band Neutrophils % 3 Lymphocytes % 11.0 Monocytes % 10.0 Eosinophils % 4.0 Basophils % 2.0 Metamyelocytes % 2 Nucleated RBC % 0 Absolute Neutrophils 8.39 H Absolute Lymphocytes 1.30 Absolute Monocytes 1.18 H Absolute Eosinophils 0.47 Absolute Basophils 0.24 H RBC Morphology See Below Polychromasia Present Sodium 140 Potassium 4.5 Chloride 102 Carbon Dioxide 31.0 Anion Gap 7.0 BUN 36 H Creatinine 1.7 H Estimated GFR/1.73 m2 38.88 Glucose 116 H Calcium 8.9 Magnesium 2.0 C-Reactive Protein 2.92 H Aspergillus Ag (EIA) <0.500 PAWSS Have you Been Recently Intoxicated or Drunk Within the Last 30 days?: No Have you Ever Experienced Previous Episodes of Alcohol Withdrawal?: No Have you ever Experienced Withdrawal Seizures?: No Have you ever Experienced Delirium Tremens(DT)s?: No Have you ever undergone Alcohol Rehabilitation Treatment (i.e, inpt ot outpatient treatment programs)?: No Have you ever Experienced Blackouts?: No Have you ever Combined Alcohol with other Downers within the last 90 days?: No Have you ever Combined Alcohol with any other Substance of Abuse during the last 90 days?: No Positive Blood Alcohol level on Presentation? [PCS.BAL]: No Evidence of Increased Autonomic Activity (i.e. HR>120, tremor, sweating, agitation, nausea)?: No Result: 0
[2021-11-15] MEDS: Lidocaine 5% Patch 1 PATCH TP (16:33)
[2021-11-15] MEDS: Tamsulosin 0.4 MG CAPCR PO (21:26)
[2021-11-15] MEDS: rOPINIRole 1 MG TAB 2 MG PO (21:26)
[2021-11-16] VITALS (11 sets, daily range): BP systolic 112–127; BP diastolic 74–85; PULSE 83–94; RESP 7–20; TEMP 35.9–36.9; O2SAT 90–100
[2021-11-16] MEDS: Levothyroxine 75 MCG TAB PO (05:40)
[2021-11-16] MEDS: Lidocaine Patch Removal 1 EACH TD (05:41)
[2021-11-16 06:49] LABS: Abs Immature Grans 1.05 10^3/uL (0.0-0.06); HCT 36.8 % (40.0-50.0); HGB 12.1 g/dL (13.5-17.5); MCH 32.9 pg (27.0-33.0); MCHC 32.9 % (32.0-36.0); Nucleated RBC 0 %; Platelet Count 253 10^3/uL (130-400); RBC 3.68 10^6/uL (4.36-5.78); RDW 12.5 % (11.8-14.1); RDW-SD 45.8 fL; WBC 13.16 10^3/uL (4.4-10.8)
[2021-11-16 07:22] LABS: ALT 23 U/L (16-63); AST 14 U/L (15-37); Albumin 2.8 g/dL (3.4-5.0); Alkaline Phosphatase 67 U/L (46-116); Anion Gap 6.8 mmol/L (3-11); BUN 38 mg/dL (7-18); Bilirubin, Direct 0.2 mg/dL (0.0-0.2); Bilirubin, Total 0.8 mg/dL (0.2-1.0); CO2 32.2 mmol/L (21.0-32.0); CREATININE 1.6 mg/dL (0.70-1.30); Calcium 8.7 mg/dL (8.5-10.1); Chloride 100 mmol/L (98-107); Estimated GFR 41.69 (mL/min/1.73m2); Glucose 113 mg/dL (74-106); Magnesium 1.9 mg/dL (1.8-2.4); Potassium 4.3 mmol/L (3.5-5.1); Sodium 139 mmol/L (136-145); Total Protein 6.2 g/dL (6.4-8.2)
[2021-11-16 07:37] LABS: Absolute Eosinophil Count 0.66 10^3/uL (0.0-0.7); Absolute Lymphocyte Count 1.58 10^3/uL (1.2-3.4); Absolute Monocyte Count 0.92 10^3/uL (0.1-0.8); Absolute Neutrophil Count 9.21 10^3/uL (1.2-6.7); Bands % 3
[2021-11-16 07:38] LABS: Diff Comment Manual Differential; Metamyelocytes % 4; Myelocytes % 2; RBC Morphology Normal
[2021-11-16] MEDS: Albuterol/Ipratropium 3 ML UPD VIAL UPD ×3 (07:49→20:44)
[2021-11-16] MEDS: Nystatin POWDER 60 GM JAR TP ×2 (08:34→20:41)
[2021-11-16] MEDS: Montelukast 10 MG TAB PO (08:34)
[2021-11-16] MEDS: Docusate Sodium 100 MG CAP PO ×2 (08:34→20:42)
[2021-11-16] MEDS: predniSONE 5 MG TAB 7.5 MG PO (08:34)
[2021-11-16] MEDS: Midodrine 2.5 MG TAB PO ×3 (08:34→20:42)
[2021-11-16] MEDS: Cholecalciferol (Vitamin D3) 1,000 UNIT TAB 2000 UNITS PO (08:34)
[2021-11-16] MEDS: Sertraline 25 MG TAB PO (08:35)
[2021-11-16] MEDS: Furosemide 40 MG TAB PO ×2 (08:35→16:43)
[2021-11-16] MEDS: Cetirizine 10 MG TAB 5 MG PO (08:35)
[2021-11-16] MEDS: Potassium Chloride 20 MEQ TABCR PO ×2 (08:35→20:42)
[2021-11-16] MEDS: guaiFENesin 600 MG TABCR 1200 MG PO ×2 (08:35→20:42)
[2021-11-16] MEDS: Pantoprazole 40 MG TABCR PO (08:35)
[2021-11-16] MEDS: Finasteride 5 MG TAB PO (08:36)
[2021-11-16] MEDS: Ascorbic Acid 500 MG TAB PO ×2 (08:36→20:42)
[2021-11-16] MEDS: Fluticasone NASAL SPRAY 16 GM BTL NS ×2 (08:36→20:42)
[2021-11-16] MEDS: Apixaban 5 MG TAB PO ×2 (08:36→20:42)
--- NOTE | 2021-11-16 10:07 | PDOC.CMPRO ---
- If Service Date Differs Date of service: 11/16/21 Time of Service: 10:07 Care Management Progress Note S/O: Julio Cesar requires close monitoring for acute respiratory failure with hypoxia. Increased SOB with exertion was noted by PT today, is aware. Wilfrido is still planning to go to short term rehab, as he feels that he needs to continue strengthening prior to returning home. SNF referrals are pending at the [facility] and [facility]. Per [facility] admissions, they are verifying his insurance and have offered him a bed on Friday, pending insurance approval. They did not have an insurance update on Friday. [facility] is also considering his admission, if he can bring the RX of Voriconazole with him or have it changed to a less expensive medication. Dayana reports that the facilities cost would be $1100 for that RX. When CM checked with Jarrod's pharmacy earlier this week the out of pocket expense was $226, which is also hard for him to afford. A: Jarrod is an 81 year old male admitted to [facility] on 10/24/21 with Pneumonia, hypoxic respiratory failure P: Anticipate Jarrod will go to a SNF for short term rehab prior to returning home. His sister will likely drive him home via private vehicle when ready vs facility transportation, if available. He will follow up with his PCP and discharge plan of care. CM will continue to follow.
--- NOTE | 2021-11-16 12:26 | DI.RAD_ITS ---
Exam(s) XR CHEST 2V PA LATERAL EXAM: XR CHEST 2V PA LATERAL CLINICAL HISTORY: Increase BARBA. Fungal PNA. TECHNIQUE: 2D digital imaging was performed. COMPARISON: CR,XR XR PORTABLE CHEST AP from 11/10/[address] CHEST WO from 11/12/2021 FINDINGS: Heart size upper normal. Mediastinum unchanged. Prominent aortic arch and descending thoracic aorta is again noted. Extensive chronic-type interstitial disease is again noted throughout both lung akhtar, most probably an element of pulmonary fibrosis. The amount of superimposed infiltrate exhibits minimal if any significant change when compared to [facility] st x-ray of 11/10/2021. There are no pleural effusions. IMPRESSION: As above. If clinically indicated repeat CT scan could be performed to compared to the CT scan of DATA REPOSITORY: RADIATION DOSE DELIVERED:
--- NOTE | 2021-11-16 15:19 | PT.INTREAT ---
Date of service: 11/16/21 Time of Service: 10:40 PT Notes Visit Reasons: Pneumonia Inpatient Physical Therapy Treatment Note [facility] Date: 11/16/2021 PRECAUTIONS: Activity as tolerated, monitor SaO2 SUBJECTIVE: Al is pleasant although remains discouraged that he is still not feeling well. He is agreeable to participating in PT. OBJECTIVE: Per RT, Meredith, patient to remain on 4L O2 supplemental oxygen at this time for gait training and ther ex completion for optimal oxygenation. PAIN: No c/o pain BED MOBILITY/TRANSFERS Sit-stand: I Stand-sit: I GAIT Assistive Device: FWW in a.m.; 4WW in p.m. Weight bearing: Full Assist: S Distance: 125' in a.m.; 75' x6 in p.m. Deviation: SOB requiring seated rest in a.m.; mild SOB, multiple seated rests for O2 saturation and breathing management in p.m. VITALS: SaO2: 82-95% on 4L O2 with gait training in a.m.; SaO2: 88-95% on 4L O2 with gait training in p.m. 4WW TRAINING: Demonstrated and instructed in safe and appropriate use of 4WW locks, breaks, and seats. ASSESSMENT: Patient tolerated session with mild SOB with gait training in p.m., utilizing 4WW seat for frequent seated rests for O2 saturation management. PLAN: Continue with general conditioning for improved activity tolerance and global strengthening for improved mobility. TREATMENT CODE/TIME: Session 1: 20 minutes; 25488 (10:40) Session 2: 27 minutes; 80932 x2 (14:46)
[2021-11-16] MEDS: Lidocaine 5% Patch 1 PATCH TP (16:43)
--- NOTE | 2021-11-16 16:53 | W.PM.PROGNOT ---
Date of Service Date of service: 11/16/21 Time of Service: 16:54 Assessment and Plan Assessment and plan (1) Fungal pneumonia: Status: Acute Assessment and plan: He has been showing improvement. CXR today looks better. He did have more BARBA with ambulation. Cont voriconazole. 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 Will need PO voriconazole 200 mg BID x 6 weeks (covered by Mr Solorzano's insurance: $226 copay if/when discharged home from SNF) (2) Acute respiratory failure with hypoxia: Status: Acute Assessment and plan: Received extra dose of IV furosemide yesterday; back to po today. Wt is stable. Monitor closely. (3) Polymyalgia rheumatica: Assessment and plan: Continue prednisone dose at 7.5 mg daily. On fentanyl 12 mcg/hr for pain control. Continue PT. (4) Hypotension: Status: Resolved Assessment and plan: Tolerating diuresis, flomax. On midodrine. BP not warranting other medications at this time. (5) Acute kidney injury superimposed on chronic kidney disease: Assessment and plan: Resolved. (6) DVT prophylaxis: Status: Acute Assessment and plan: On apixiban (7) Discharge planning issues: Status: Acute Assessment and plan: DNR/DNI. Continues to require hospitalization. PT, Palliative care consulted. SNF on discharge, as soon as bed available Subjective Subjective Patient reports: no new complaints, tolerating a regular diet, shortness of breath and afebrile; denies nausea or vomiting Interval history since last seen: Fatigued more readily walking with PT today. Oxygen saturations dropped. Exam Const General: cooperative and no acute distress Nutritional Appearance: average body habitus Orientation: oriented x3 Neck Neck: no JVD Resp Effort & Inspection: normal respiratory effort Auscultation: rales Cardio Rate: regular rate Rhythm: regular rhythm Heart Sounds: S1 normal and S2 normal GI Palpation: soft and nontender Extrem General: no calf tenderness and edema Laterality: bilateral Objective Last Vital Signs Temp 36.9 C 11/16/21 14:33 Pulse 94 H 11/16/21 14:33 Resp 20 11/16/21 14:33 BP 112/77 11/16/21 14:33 Pulse Ox 98 11/16/21 14:33 Laboratory Results - last 24 hr 11/16/21 11/16/21 06:10 06:10 WBC 13.16 H RBC 3.68 L Hgb 12.1 L Hct 36.8 L MCV 100.0 H MCH 32.9 MCHC 32.9 RDW 12.5 Plt Count 253 MPV 10.0 Immature Gran % See Differential Neutrophils % 67.0 Band Neutrophils % 3 Lymphocytes % 12.0 Monocytes % 7.0 Eosinophils % 5.0 Basophils % 0.0 Metamyelocytes % 4 Myelocytes % 2 Nucleated RBC % 0 Absolute Neutrophils 9.21 H Absolute Lymphocytes 1.58 Absolute Monocytes 0.92 H Absolute Eosinophils 0.66 Absolute Basophils 0.00 RBC Morphology Normal Sodium 139 Potassium 4.3 Chloride 100 Carbon Dioxide 32.2 H Anion Gap 6.8 BUN 38 H Creatinine 1.6 H Estimated GFR/1.73 m2 41.69 Glucose 113 H Calcium 8.7 Magnesium 1.9 Total Bilirubin 0.8 Conjugated Bilirubin 0.2 AST 14 L ALT 23 Alkaline Phosphatase 67 Total Protein 6.2 L Albumin 2.8 L PAWSS Have you Been Recently Intoxicated or Drunk Within the Last 30 days?: No Have you Ever Experienced Previous Episodes of Alcohol Withdrawal?: No Have you ever Experienced Withdrawal Seizures?: No Have you ever Experienced Delirium Tremens(DT)s?: No Have you ever undergone Alcohol Rehabilitation Treatment (i.e, inpt ot outpatient treatment programs)?: No Have you ever Experienced Blackouts?: No Have you ever Combined Alcohol with other Downers within the last 90 days?: No Have you ever Combined Alcohol with any other Substance of Abuse during the last 90 days?: No Positive Blood Alcohol level on Presentation? [PCS.BAL]: No Evidence of Increased Autonomic Activity (i.e. HR>120, tremor, sweating, agitation, nausea)?: No Result: 0
[2021-11-16] MEDS: rOPINIRole 1 MG TAB 2 MG PO (20:49)
[2021-11-16] MEDS: Tamsulosin 0.4 MG CAPCR PO (20:49)
[2021-11-17] VITALS (7 sets, daily range): BP systolic 104–131; BP diastolic 69–81; PULSE 84–96; RESP 8–23; TEMP 36–36.6; O2SAT 94–96
[2021-11-17] MEDS: Lidocaine Patch Removal 1 EACH TD (06:29)
[2021-11-17] MEDS: Levothyroxine 75 MCG TAB PO (06:29)
[2021-11-17 06:44] LABS: HCT 36.9 % (40.0-50.0); HGB 11.9 g/dL (13.5-17.5); MCHC 32.2 % (32.0-36.0); MCV 99.2 fL (80-95); MPV 10.1 fL (8.0-11.0); Nucleated RBC 0 %; Platelet Count 254 10^3/uL (130-400); RBC 3.72 10^6/uL (4.36-5.78); RDW 12.7 % (11.8-14.1); WBC 12.48 10^3/uL (4.4-10.8)
[2021-11-17 07:01] LABS: Absolute Eosinophil Count 0.25 10^3/uL (0.0-0.7); Absolute Lymphocyte Count 1.62 10^3/uL (1.2-3.4); Absolute Neutrophil Count 9.11 10^3/uL (1.2-6.7); Atypical Lymphocytes % 3; Bands % 3; Metamyelocytes % 4
[2021-11-17 07:02] LABS: Diff Comment Manual Differential; RBC Morphology Normal
[2021-11-17] MEDS: Albuterol/Ipratropium 3 ML UPD VIAL UPD ×3 (08:07→20:06)
[2021-11-17] MEDS: Cetirizine 10 MG TAB 5 MG PO (08:59)
[2021-11-17] MEDS: Polyethylene Glycol 3350 17 GM PACKET PO (08:59)
[2021-11-17] MEDS: Apixaban 5 MG TAB PO ×2 (09:00→20:05)
[2021-11-17] MEDS: Midodrine 2.5 MG TAB PO ×3 (09:00→20:05)
[2021-11-17] MEDS: Potassium Chloride 20 MEQ TABCR PO ×2 (09:01→20:05)
[2021-11-17] MEDS: Docusate Sodium 100 MG CAP PO ×2 (09:01→20:05)
[2021-11-17] MEDS: Cholecalciferol (Vitamin D3) 1,000 UNIT TAB 2000 UNITS PO (09:01)
[2021-11-17] MEDS: Pantoprazole 40 MG TABCR PO (09:01)
[2021-11-17] MEDS: guaiFENesin 600 MG TABCR 1200 MG PO ×2 (09:02→20:05)
[2021-11-17] MEDS: Furosemide 40 MG TAB PO ×2 (09:02→16:00)
[2021-11-17] MEDS: predniSONE 5 MG TAB 7.5 MG PO (09:03)
[2021-11-17] MEDS: Sertraline 25 MG TAB PO (09:03)
[2021-11-17] MEDS: Montelukast 10 MG TAB PO (09:03)
[2021-11-17] MEDS: Finasteride 5 MG TAB PO (09:04)
[2021-11-17] MEDS: Ascorbic Acid 500 MG TAB PO ×2 (09:04→20:06)
[2021-11-17] MEDS: Nystatin POWDER 60 GM JAR TP ×2 (09:07→20:41)
--- NOTE | 2021-11-17 12:02 | PT.INNT ---
Date of service: 11/17/21 Time of Service: 12:02 PT Notes Visit Reasons: Pneumonia 11/17/2021 Patient declined participation in PT this morning, stating that he is not feeling well today. He is agreeable to participating in PT tomorrow morning.
--- NOTE | 2021-11-17 15:25 | W.PM.PROGNOT ---
Date of Service Date of service: 11/17/21 Time of Service: 15:26 Assessment and Plan Assessment and plan (1) Fungal pneumonia: Status: Acute Assessment and plan: He has been showing improvement in general regarding supplemental O2 demands but more fatigued. He did have more BARBA with ambulation. Cont voriconazole. 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 Will need PO voriconazole 200 mg BID x 6 weeks (covered by Mr Solorzano's insurance: $226 copay if/when discharged home from SNF) (2) Acute respiratory failure with hypoxia: Status: Acute Assessment and plan: Received extra dose of IV furosemide yesterday; back to po today. Wt is stable. Monitor closely. (3) Polymyalgia rheumatica: Assessment and plan: Continue prednisone dose at 7.5 mg daily. On fentanyl 12 mcg/hr for pain control. Continue PT. (4) Hypotension: Status: Resolved Assessment and plan: Tolerating diuresis, flomax. On midodrine. BP not warranting other medications at this time. (5) Acute kidney injury superimposed on chronic kidney disease: Assessment and plan: Resolved. (6) DVT prophylaxis: Status: Acute Assessment and plan: On apixiban (7) Discharge planning issues: Status: Acute Assessment and plan: DNR/DNI. Continues to require hospitalization. PT, Palliative care consulted. SNF on discharge, as soon as bed available Subjective Subjective Patient reports: tolerating a regular diet, shortness of breath and afebrile; denies voiding w/o difficulty, nausea or vomiting Interval history since last seen: Feels tired, weak. Exam Narrative Exam Narrative: Reclined in his recliner. Const General: cooperative, not healthy appearing, no acute distress, frail appearing and not ill appearing Nutritional Appearance: average body habitus and overweight Orientation: alert, awake and oriented x3 HENMT Head: normal to inspection and atraumatic Ears: hearing grossly normal bilaterally and TM normal on the left Face and sinus: normal facial exam Mouth: oral mucosae normal Eyes General: appearance normal, both eyes and all related structures Eyelids: eyelids normal Sclera: sclerae normal Neck Neck: normal visual inspection, full ROM, negative Kernig's sign and no JVD Resp Effort & Inspection: normal respiratory effort and able to speak in complete sentences Auscultation: not clear to auscultation bilaterally, crackles (course) bilaterally and diminished lung sounds on the left throughout Cardio Jugular venous pressure: no JVD Rate: regular rate Rhythm: regular rhythm Heart Sounds: S1 normal and S2 normal GI Inspection: normal to inspection and obesity Palpation: soft, not firm, no guarding and nontender Auscultation: normal bowel sounds Back/Spine/Pelvis Back: no CVA tenderness Cervical Spine: normal cervical lordosis Thoracic/Lumbar Spine: thoracic and lumbar spine normal to inspection Skin General skin exam: no rashes or lesions noted and other (scattered ecchymosis) Neuro General: patient alert, patient awake, patient oriented x3 and moves all extremities Cognition: normal cognition Speech: speech normal Gait: normal gait Extrem General: normal to inspection, no calf tenderness and edema Laterality: bilateral Psych Appearance: grossly normal Mental Status: mental status grossly normal Speech and Movement: speech and movement normal Mood: congruent mood Affect: blunted Attitude: cooperative Thought Process: normal Thought Content: normal Objective Last Vital Signs Temp 36.4 C L 11/17/21 11:37 Pulse 90 11/17/21 11:37 Resp 22 11/17/21 11:37 BP 121/78 11/17/21 11:37 Pulse Ox 95 11/17/21 11:37 Laboratory Results - last 24 hr 11/17/21 05:59 WBC 12.48 H RBC 3.72 L Hgb 11.9 L Hct 36.9 L MCV 99.2 H MCH 32.0 MCHC 32.2 RDW 12.7 Plt Count 254 MPV 10.1 Immature Gran % 0.0 Neutrophils % 70.0 Band Neutrophils % 3 Lymphocytes % 10.0 Atypical Lymphs % 3 Monocytes % 8.0 Eosinophils % 2.0 Basophils % 0.0 Metamyelocytes % 4 Nucleated RBC % 0 Absolute Neutrophils 9.11 H Absolute Lymphocytes 1.62 Absolute Monocytes 1.00 H Absolute Eosinophils 0.25 Absolute Basophils 0.00 RBC Morphology Normal PAWSS Have you Been Recently Intoxicated or Drunk Within the Last 30 days?: No Have you Ever Experienced Previous Episodes of Alcohol Withdrawal?: No Have you ever Experienced Withdrawal Seizures?: No Have you ever Experienced Delirium Tremens(DT)s?: No Have you ever undergone Alcohol Rehabilitation Treatment (i.e, inpt ot outpatient treatment programs)?: No Have you ever Experienced Blackouts?: No Have you ever Combined Alcohol with other Downers within the last 90 days?: No Have you ever Combined Alcohol with any other Substance of Abuse during the last 90 days?: No Positive Blood Alcohol level on Presentation? [PCS.BAL]: No Evidence of Increased Autonomic Activity (i.e. HR>120, tremor, sweating, agitation, nausea)?: No Result: 0
[2021-11-17] MEDS: Lidocaine 5% Patch 1 PATCH TP (17:38)
[2021-11-17] MEDS: rOPINIRole 1 MG TAB 2 MG PO (20:05)
[2021-11-17] MEDS: Tamsulosin 0.4 MG CAPCR PO (20:06)
[2021-11-17] MEDS: Fluticasone NASAL SPRAY 16 GM BTL NS (20:40)
[2021-11-18] VITALS (8 sets, daily range): BP systolic 110–143; BP diastolic 67–89; PULSE 83–98; RESP 4–24; TEMP 36.2–36.6; O2SAT 91–95
[2021-11-18] MEDS: Lidocaine Patch Removal 1 EACH TD (05:27)
[2021-11-18] MEDS: Levothyroxine 75 MCG TAB PO (05:27)
[2021-11-18] MEDS: guaiFENesin 600 MG TABCR 1200 MG PO ×2 (08:43→20:09)
[2021-11-18] MEDS: Cetirizine 10 MG TAB 5 MG PO (08:44)
[2021-11-18] MEDS: Ascorbic Acid 500 MG TAB PO ×2 (08:44→20:08)
[2021-11-18] MEDS: Cholecalciferol (Vitamin D3) 1,000 UNIT TAB 2000 UNITS PO (08:44)
[2021-11-18] MEDS: Furosemide 40 MG TAB PO (08:44)
[2021-11-18] MEDS: Finasteride 5 MG TAB PO (08:44)
[2021-11-18] MEDS: Docusate Sodium 100 MG CAP PO ×2 (08:44→20:09)
[2021-11-18] MEDS: Apixaban 5 MG TAB PO ×2 (08:44→20:08)
[2021-11-18] MEDS: Pantoprazole 40 MG TABCR PO (08:44)
[2021-11-18] MEDS: Potassium Chloride 20 MEQ TABCR PO ×2 (08:45→20:09)
[2021-11-18] MEDS: predniSONE 5 MG TAB 7.5 MG PO (08:45)
[2021-11-18] MEDS: Midodrine 2.5 MG TAB PO ×3 (08:45→20:08)
[2021-11-18] MEDS: Sertraline 25 MG TAB PO (08:46)
[2021-11-18] MEDS: fentaNYL 12 MCG PATCH TD (08:46)
[2021-11-18] MEDS: Montelukast 10 MG TAB PO (08:46)
[2021-11-18] MEDS: Fluticasone NASAL SPRAY 16 GM BTL NS ×2 (08:54→20:08)
[2021-11-18 09:06] LABS: Absolute Basophil Count 0.12 10^3/uL (0.0-0.2); HCT 38.8 % (40.0-50.0); HGB 12.5 g/dL (13.5-17.5); MCH 32.6 pg (27.0-33.0); MCHC 32.2 % (32.0-36.0); MPV 9.9 fL (8.0-11.0); Nucleated RBC 0 %; Platelet Count 239 10^3/uL (130-400); RBC 3.84 10^6/uL (4.36-5.78); RDW 12.8 % (11.8-14.1); RDW-SD 47.5 fL; WBC 12.01 10^3/uL (4.4-10.8)
[2021-11-18 09:18] LABS: Absolute Eosinophil Count 0.24 10^3/uL (0.0-0.7); Absolute Lymphocyte Count 1.56 10^3/uL (1.2-3.4); Absolute Monocyte Count 1.32 10^3/uL (0.1-0.8); Anion Gap 9.5 mmol/L (3-11); Atypical Lymphocytes % 1; BUN 42 mg/dL (7-18); Bands % 1; CO2 32.5 mmol/L (21.0-32.0); CREATININE 1.9 mg/dL (0.70-1.30); Calcium 8.9 mg/dL (8.5-10.1); Chloride 96 mmol/L (98-107); Diff Comment Manual Differential; Estimated GFR 34.19 (mL/min/1.73m2); Glucose 174 mg/dL (74-106); Metamyelocytes % 1; Myelocytes % 3; Potassium 4.4 mmol/L (3.5-5.1); RBC Morphology Normal; Sodium 138 mmol/L (136-145)
[2021-11-18 09:19] LABS: Absolute Neutrophil Count 8.29 10^3/uL (1.2-6.7)
[2021-11-18] MEDS: Albuterol/Ipratropium 3 ML UPD VIAL UPD ×3 (09:27→20:08)
--- NOTE | 2021-11-18 10:55 | PTTR_ITS ---
Date of service: 11/18/21 Time of Service: 10:31 PT Notes Visit Reasons: Pneumonia Inpatient Physical Therapy Treatment Note [facility] Date: 11/18/2021 PRECAUTIONS: Activity as tolerated, monitor SaO2 SUBJECTIVE: Al is pleasant although remains discouraged that he is still not feeling well.? He is agreeable to participating in PT. OBJECTIVE: Per RT, Meredith, patient to remain on 4L O2 supplemental oxygen at this time for gait training and ther ex completion for optimal oxygenation. ? PAIN: No c/o pain ? BED MOBILITY/TRANSFERS? Sit-stand: I? Stand-sit: I ? GAIT? Assistive Device: 4WW ? Weight bearing: Full Assist: S ? Distance:? 75' x6 ? Deviation: SOB, multiple seated rests for O2 saturation and breathing management ? VITALS:? SaO2: 84-95% on 4L O2 with gait training 4WW TRAINING: Demonstrated safe and appropriate use of 4WW locks, breaks, and seats. ? ASSESSMENT:? Patient tolerated session with SOB and increased fatigue with gait training. He demonstrates appropriate use of 4WW locks and seat for frequent seated rests for O2 saturation management.? PLAN: Continue with general conditioning for improved activity tolerance and gabriel bal strengthening for improved mobility. TREATMENT CODE/TIME: 23 minutes; 09313 x2 (10:31)
--- NOTE | 2021-11-18 13:59 | W.PM.PROGNOT ---
Date of Service Date of service: 11/18/21 Time of Service: 14:00 Assessment and Plan Assessment and plan (1) Fungal pneumonia: Status: Acute Assessment and plan: Cont voriconazole. 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 Will need PO voriconazole 200 mg BID x 6 weeks (covered by Mr Wallace insurance: $226 copay if/when discharged home from SNF) (2) Acute respiratory failure with hypoxia: Status: Acute Assessment and plan: Has gradually required decreased supplemental O2 concentration. Still has saturations that decreases into the 80's on 4L with ambulation/PT. (3) Polymyalgia rheumatica: Assessment and plan: Continue prednisone dose at 7.5 mg daily. On fentanyl 12 mcg/hr for pain control. Continue PT. (4) Hypotension: Status: Resolved Assessment and plan: Tolerating diuresis, flomax. On midodrine. BP not warranting other medications at this time. (5) Acute kidney injury superimposed on chronic kidney disease: Assessment and plan: Resolved. (6) DVT prophylaxis: Status: Acute Assessment and plan: On apixiban (7) Discharge planning issues: Status: Acute Assessment and plan: DNR/DNI. Continues to require hospitalization. PT, Palliative care consulted. SNF on discharge, as soon as bed available Subjective Subjective Patient reports: tolerating a regular diet, shortness of breath (With ambulation. ) and afebrile; denies voiding w/o difficulty, nausea or vomiting Interval history since last seen: Feels tired, weak. Exam Narrative Exam Narrative: Reclined in his recliner. Const General: cooperative, not healthy appearing, no acute distress, frail appearing and not ill appearing Nutritional Appearance: average body habitus and overweight Orientation: alert, awake and oriented x3 HENMT Head: normal to inspection and atraumatic Ears: hearing grossly normal bilaterally and TM normal on the left Face and sinus: normal facial exam Mouth: oral mucosae normal Eyes General: appearance normal, both eyes and all related structures Eyelids: eyelids normal Sclera: sclerae normal Neck Neck: normal visual inspection, full ROM, negative Kernig's sign and no JVD Resp Effort & Inspection: normal respiratory effort and able to speak in complete sentences Auscultation: not clear to auscultation bilaterally, crackles (course) bilaterally, diminished lung sounds on the left throughout, rales and wheezes (faint) Cardio Jugular venous pressure: no JVD Rate: regular rate and tachycardic Rhythm: regular rhythm Heart Sounds: S1 normal and S2 normal GI Inspection: normal to inspection and obesity Palpation: soft, not firm, no guarding and nontender Auscultation: normal bowel sounds Back/Spine/Pelvis Back: no CVA tenderness Cervical Spine: normal cervical lordosis Thoracic/Lumbar Spine: thoracic and lumbar spine normal to inspection Skin General skin exam: no rashes or lesions noted and other (scattered ecchymosis) Neuro General: patient alert, patient awake, patient oriented x3 and moves all extremities Cognition: normal cognition Speech: speech normal Gait: normal gait Extrem General: normal to inspection, no pedal edema, no calf tenderness and edema Laterality: bilateral Psych Appearance: grossly normal Mental Status: mental status grossly normal Speech and Movement: speech and movement normal Mood: congruent mood Affect: normal affect and blunted Attitude: cooperative Thought Process: normal Thought Content: normal Insight: insight good Judgment: fair Objective Last Vital Signs Temp 36.4 C L 11/18/21 11:50 Pulse 89 11/18/21 11:50 Resp 21 11/18/21 11:50 BP 110/74 11/18/21 11:50 Pulse Ox 95 11/18/21 11:50 Laboratory Results - last 24 hr 11/18/21 11/18/21 09:00 09:00 WBC 12.01 H RBC 3.84 L Hgb 12.5 L Hct 38.8 L MCV 101.0 H MCH 32.6 MCHC 32.2 RDW 12.8 Plt Count 239 MPV 9.9 Immature Gran % 0.0 Neutrophils % 68.0 Band Neutrophils % 1 Lymphocytes % 12.0 Atypical Lymphs % 1 Monocytes % 11.0 Eosinophils % 2.0 Basophils % 1.0 Metamyelocytes % 1 Myelocytes % 3 Nucleated RBC % 0 Absolute Neutrophils 8.29 H Absolute Lymphocytes 1.56 Absolute Monocytes 1.32 H Absolute Eosinophils 0.24 Absolute Basophils 0.12 RBC Morphology Normal Sodium 138 Potassium 4.4 Chloride 96 L Carbon Dioxide 32.5 H Anion Gap 9.5 BUN 42 H Creatinine 1.9 H Estimated GFR/1.73 m2 34.19 Glucose 174 H Calcium 8.9 PAWSS Have you Been Recently Intoxicated or Drunk Within the Last 30 days?: No Have you Ever Experienced Previous Episodes of Alcohol Withdrawal?: No Have you ever Experienced Withdrawal Seizures?: No Have you ever Experienced Delirium Tremens(DT)s?: No Have you ever undergone Alcohol Rehabilitation Treatment (i.e, inpt ot outpatient treatment programs)?: No Have you ever Experienced Blackouts?: No Have you ever Combined Alcohol with other Downers within the last 90 days?: No Have you ever Combined Alcohol with any other Substance of Abuse during the last 90 days?: No Positive Blood Alcohol level on Presentation? [PCS.BAL]: No Evidence of Increased Autonomic Activity (i.e. HR>120, tremor, sweating, agitation, nausea)?: No Result: 0
[2021-11-18] MEDS: Lidocaine 5% Patch 1 PATCH TP (17:57)
[2021-11-18] MEDS: Tamsulosin 0.4 MG CAPCR PO (20:08)
[2021-11-18] MEDS: rOPINIRole 1 MG TAB 2 MG PO (20:09)
[2021-11-18] MEDS: Normal Saline Flush 10 ML SYR IVP (20:10)
[2021-11-19] VITALS (12 sets, daily range): BP systolic 105–145; BP diastolic 67–88; PULSE 83–98; RESP 2–22; TEMP 36.3–36.9; O2SAT 90–97
[2021-11-19] MEDS: Levothyroxine 75 MCG TAB PO (05:21)
[2021-11-19] MEDS: Lidocaine Patch Removal 1 EACH TD (05:22)
[2021-11-19] MEDS: Albuterol/Ipratropium 3 ML UPD VIAL UPD ×3 (07:58→20:12)
[2021-11-19] MEDS: Cholecalciferol (Vitamin D3) 1,000 UNIT TAB 2000 UNITS PO (08:06)
[2021-11-19] MEDS: Docusate Sodium 100 MG CAP PO ×2 (08:06→20:12)
--- NOTE | 2021-11-19 08:06 | PCPN_ITS ---
Date of service: 11/19/21 Time of Service: 08:06 Assessment and Plan Assessment and plan (1) PMR (polymyalgia rheumatica): Status: Acute Assessment and plan: Feels much better on the fentanyl patch. 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 Some of his labs have yet to come back. He is slowly responding, but was not expecting to have his illness take so long to improve. (3) Acute respiratory failure with hypoxia: Status: Acute Assessment and plan: Improving with high oxygen. He is talking in complete sentences (4) Palliative care patient: Status: Acute Assessment and plan: Overall improving. He is not as discouraged as he was last visit. He is looking forward to next steps and hopefully getting to a rehab soon. He was happy that his son will likely come when he is discharged from rehab and stay with him at his home. He does not know what he is going to do long-term as far as living situation. Subjective Subjective Interval history since last seen: AL continues to improve, unfortunately slowly. He still is dependent on high v olumes of oxygen. He tries to exercise but is very tiring for him. He is anxious to get to rehab and then to go home. He does not know how much longer it will take before he can be released from the hospital. At this point [facility] Exam Narrative Exam Narrative: Sitting in the chair. Appears comfortable. Smiles often. Lung exam he still has quite a bit of wheezing I was surprised. His heart was regular. Abdomen nontender. Resp Effort & Inspection: normal respiratory effort and able to speak in complete sentences Auscultation: bronchovesicular breath sounds and crackles Percussion: percussion normal Cardio Rate: regular rate GI Palpation: soft and no hepatosplenomegaly Psych Mental Status: mental status grossly normal Affect: normal affect Attitude: cooperative Thought Process: normal Thought Content: normal Insight: fair Objective Last Vital Signs Temp 97.7 F 11/19/21 03:21 Pulse 83 11/19/21 03:21 Resp 20 11/19/21 07:58 BP 145/74 H 11/19/21 03:21 Pulse Ox 90 L 11/19/21 07:59 Laboratory Results - last 24 hr 11/18/21 11/18/21 09:00 09:00 WBC 12.01 H RBC 3.84 L Hgb 12.5 L Hct 38.8 L MCV 101.0 H MCH 32.6 MCHC 32.2 RDW 12.8 Plt Count 239 MPV 9.9 Immature Gran % 0.0 Neutrophils % 68.0 Band Neutrophils % 1 Lymphocytes % 12.0 Atypical Lymphs % 1 Monocytes % 11.0 Eosinophils % 2.0 Basophils % 1.0 Metamyelocytes % 1 Myelocytes % 3 Nucleated RBC % 0 Absolute Neutrophils 8.29 H Absolute Lymphocytes 1.56 Absolute Monocytes 1.32 H Absolute Eosinophils 0.24 Absolute Basophils 0.12 RBC Morphology Normal Sodium 138 Potassium 4.4 Chloride 96 L Carbon Dioxide 32.5 H Anion Gap 9.5 BUN 42 H Creatinine 1.9 H Estimated GFR/1.73 m2 34.19 Glucose [address] Scan 11/12 FINDINGS: Tracheobronchial tree: No bronchiectasis or mucous plugging.? Mediastinum and Elsa: No dominant adenopathy or fluid collection. Pulmonary parenchyma: Persistent bilateral infiltrates with some improvement since prior CT..? Underlying fibrotic changes. Pleura: No effusion or pneumothorax. Previously noted tiny bilateral pleural effusions have resolved. Heart: The heart is not dilated. Mild coronary artery calcifications are seen. No change pericardial cyst adjacent to the right atrium. Aorta: Dilatation of the ascending aorta.? Mild atherosclerotic changes.? Upper abdomen:? Unremarkable. Lymph nodes: Within normal limits. Bones: Syndesmophyte formation along the thoracic spine.? No fractures.? S coliosis.? Soft tissues: Unremarkable.? IMPRESSION: Continued improvement in the areas of bilateral infiltration with the resume mild residual areas of increased density as well as pulmonary fibrosis and scarring.
[2021-11-19] MEDS: Montelukast 10 MG TAB PO (08:07)
[2021-11-19] MEDS: Midodrine 2.5 MG TAB PO ×3 (08:07→20:12)
[2021-11-19] MEDS: Sertraline 25 MG TAB PO (08:07)
[2021-11-19] MEDS: guaiFENesin 600 MG TABCR 1200 MG PO ×2 (08:07→20:12)
[2021-11-19] MEDS: Pantoprazole 40 MG TABCR PO (08:07)
[2021-11-19] MEDS: Potassium Chloride 20 MEQ TABCR PO ×2 (08:07→20:12)
[2021-11-19] MEDS: Apixaban 5 MG TAB PO ×2 (08:08→20:12)
[2021-11-19] MEDS: Ascorbic Acid 500 MG TAB PO ×2 (08:09→20:12)
[2021-11-19] MEDS: Finasteride 5 MG TAB PO (08:09)
[2021-11-19] MEDS: predniSONE 5 MG TAB 7.5 MG PO (08:09)
[2021-11-19] MEDS: Cetirizine 10 MG TAB 5 MG PO (08:10)
[2021-11-19] MEDS: Fluticasone NASAL SPRAY 16 GM BTL NS ×2 (08:11→20:13)
[2021-11-19] MEDS: Furosemide 40 MG TAB PO (08:28)
--- NOTE | 2021-11-19 11:17 | CMPROGNOTE_ITS ---
- If Service Date Differs Date of service: 11/19/21 Time of Service: 11:18 Care Management Progress Note S/O: Jarrod was sitting up in his chair when CM met with him. He reported that he is doing ok, slowly improving. He indicates that he is still planning on going to short term rehab post hospitalization, as he does not feel safe to be home currently, and knows that he needs to strengthen and become more independent with ADL's. Jarrod was accepted at the [facility], which is his first choice, but they do not have a bed available today. They may be able to take him tomorrow, if he becomes medically cleared. He is agreeable to go to the [facility], when ready. CM will continue to follow. A: Jarrod is an 81 year old male admitted to [facility] on 10/24/21 with Pneumonia, hypoxic respiratory failure P: Anticipate Jarrod will go to a SNF for short term rehab prior to returning home. His sister will likely drive him home via private vehicle when ready vs facility transportation, if available. He will follow up with his PCP and discharge plan of care. CM will continue to follow.
--- NOTE | 2021-11-19 14:32 | INPN_ITS ---
Date of service: 11/19/21 Time of Service: 14:32 PT Notes Visit Reasons: Pneumonia Physical Therapy Inpatient [place] Note Date: 11/19/2021 Dates of Service:? 11/07/2021 through 11/19/2021 Precautions: Fall. Standard. Activity as tolerated. Subjective:? Agreeable to both sessions today. Objective: General Observation: Seated on chair. On oxygen supplementation at 3 L per minute via NC. Mental Status: Alert and oriented as to person, place, time, and purpose. Able to pay attention, focus, and respond appropriately. Pain: Denies ROM: Right Upper Extremity: ? Shoulder Flexion WFL. Shoulder abduction WFL. Elbow flexion WFL. Wrist flexion WFL. Functional opening and closing of hand WFL. Left Upper Extremity:? Shoulder Flexion WFL. Shoulder abduction WFL. Elbow flexion WFL. Wrist flexion WFL. Functional opening and closing of hand WFL. Right Lower Extremity: Hip flexion WFL. Hip abduction WFL. Knee flexion WFL. Ankle dorsiflexion WFL. Ankle plantarflexion WFL. Left Lower Extremity: Hip flexion WFL. Hip abduction WFL. Knee flexion WFL. Ankle dorsiflexion WFL. Ankle plantarflexion WFL. Strength: Right Upper Extremity: Shoulder flexors 4-/5. Shoulder abductors 4-/5. Elbow flexors 4-/5. Elbow extensors 4-/5. Clinical Phlebotomist strong. Left Upper Extremity: Shoulder flexors 4-/5. Shoulder abductors 4-/5. Elbow flexors 4-/5. Elbow extensors 4-/5. Clinical Phlebotomist strong. Right Lower Extremity: Hip flexors 4-/5. Hip abductors 4-/5. Knee flexors 4-/5. Knee extensors 4-/5. Ankle dorsiflexors 3+/5. Ankle plantarflexors 3+/5. Left Lower Extremity: Hip flexors 4-/5. Hip abductors 4-/5. Knee flexors 4-/5. Knee extensors 4-/5. Ankle dorsiflexors 3+/5. Ankle plantarflexors 3+/5. Bed Mobility/Transfers: Sit to stand with independent Stand to sit with independent Gait: Tolerated level surface ambulation of 300 feet using front wheeled walker with full weight bearing requiring supervision and wheelchair follow with oxygen supplementation of up to 4 L,? oxygen saturation low of 79% and high of 90% with rest of 1 minute.? THERA EX: B UE and LE strengthening exercises using 3 lb DB and 3 lb AW incorporated into deep breathing exercises. Desaturated to 81% on 3 L but was able to resaturate back to 88% in less than a minute. Balance: Static Sitting: Normal Dynamic Sitting: Normal Static Standing: Fair Dynamic Standing: Fair Assessment: Patient continues to be limited by decreasing saturation levels which lead to dyspnea and fatigue.? Will downgrade goals to independent with all mobility ADL perforamnce using the FWW to conserve energy while minimizing decrease in saturation levels with activity.? Patient continues to present with clinical signs and symptoms consistent with current/admitting diagnoses that have resulted to mobility limitations, gait instability, generalized weakness, and overall ADL decline as demonstrated by the following impairment level findings: 1.? Decreased strength to B UE/LE major muscle groups 2.? Impaired sitting/standing balance 3.? Impaired activity tolerance 4.? Shortness of breath 5.? Fatigue Impairments are contributing to the following functional limitations: 1.? Difficulty with ambulation without assistive device and physical assistance 2.? Increased completion time for mobility ADL performance 3.? Increased risk for falls 4.? Difficulty with managing steps alone safely Goals: Goals X1 week 1. Supine-Sit independent MET 2. Sit-Supine independent MET 3. Sit-Stand independent MET 4. Stand-Sit independent MET 5. Bed-Chair independent with no FWW NOT MET 6. Chair-Bed independent with no FWW NOT MET, DOWN GRADE TO WITH US OF FWW 7. Independent gait on level surface with use of FWW for at least? 300 feet without report of pain nor dyspnea NOT MET, CONTINUE 8. Good static and dynamic standing balance/tolerance NOT MET, CONTINUE DISCHARGE RECOMMENDATIONS: [] ? Home with no services [] [] ? Home with services? [specify] [] ? Home with outpatient PT [] [X] ? SNF for continued rehabilitation.? Discharge to SNF when medically cleared by hospitalist.? Patient will benefit from correction facility placement for continued skilled physical therapy services in order to progress mobility level, strength, and balance to maximize functional outcomes. [] ? [facility] [] [] ? SNF versus LTC based on ability to participate and progress [] TREATMENT CODE/TIME: Session 1-- 67988 x 25 minutes, 69877 x 15 minutes beginning at 10:57 AM. Session 2-- 64466 x 31 minutes beginning at 14:32 PM. Thank you for the opportunity to participate in the care of this patient. Pepper Woodard PT, DPT, CLT [facility] [place], [place]
[2021-11-19] MEDS: Normal Saline Flush 10 ML SYR IVP ×2 (15:41→20:13)
[2021-11-19] MEDS: Lidocaine 5% Patch 1 PATCH TP (17:20)
[2021-11-19] MEDS: Nystatin POWDER 60 GM JAR TP (20:23)
[2021-11-19] MEDS: rOPINIRole 1 MG TAB 2 MG PO (21:41)
[2021-11-19] MEDS: Tamsulosin 0.4 MG CAPCR PO (21:41)
[2021-11-19] MEDS: Acetaminophen 325 MG TAB PO (21:41)
[2021-11-20 03:26] VITALS: O2SAT 97
[2021-11-20 03:48] VITALS: BP 140/80; PULSE 90; RESP 22; TEMP 36.6; O2SAT 97
[2021-11-20] MEDS: Lidocaine Patch Removal 1 EACH TD (05:38)
[2021-11-20] MEDS: Levothyroxine 75 MCG TAB PO (05:38)
[2021-11-20 05:46] VITALS: RESP 2; RESP 4
[2021-11-20] MEDS: Albuterol/Ipratropium 3 ML UPD VIAL UPD ×3 (05:46→14:12)
[2021-11-20 07:54] VITALS: PULSE 90; RESP 18; RESP 7; O2SAT 94
[2021-11-20 08:50] VITALS: BP 108/67; PULSE 96; RESP 18; TEMP 36; O2SAT 94
[2021-11-20] MEDS: Cholecalciferol (Vitamin D3) 1,000 UNIT TAB 2000 UNITS PO (08:58)
[2021-11-20] MEDS: Midodrine 2.5 MG TAB PO ×2 (09:00→14:07)
[2021-11-20] MEDS: Docusate Sodium 100 MG CAP PO (09:00)
[2021-11-20] MEDS: guaiFENesin 600 MG TABCR 1200 MG PO (09:00)
[2021-11-20] MEDS: Ascorbic Acid 500 MG TAB PO (09:01)
[2021-11-20] MEDS: Apixaban 5 MG TAB PO (09:01)
[2021-11-20] MEDS: Potassium Chloride 20 MEQ TABCR PO (09:01)
[2021-11-20] MEDS: Montelukast 10 MG TAB PO (09:01)
[2021-11-20] MEDS: Sertraline 25 MG TAB PO (09:01)
[2021-11-20] MEDS: Finasteride 5 MG TAB PO (09:02)
[2021-11-20] MEDS: Pantoprazole 40 MG TABCR PO (09:02)
[2021-11-20] MEDS: Furosemide 40 MG TAB PO (09:02)
[2021-11-20] MEDS: Fluticasone NASAL SPRAY 16 GM BTL NS (09:03)
[2021-11-20] MEDS: predniSONE 5 MG TAB 7.5 MG PO (09:03)
[2021-11-20] MEDS: Cetirizine 10 MG TAB 5 MG PO (09:04)
[2021-11-20] MEDS: Normal Saline Flush 10 ML SYR IVP (09:11)
[2021-11-20] MEDS: Nystatin POWDER 60 GM JAR TP (09:13)
--- NOTE | 2021-11-20 10:06 | W.PM.DS.N ---
Date of service: 11/20/21 Time of Service: 10:07 DS: Diagnosis Discharge Diagnosis (1) PMR (polymyalgia rheumatica): Status: Acute (2) Fungal pneumonia: Status: Acute (3) Acute respiratory failure with hypoxia: Status: Acute Discharge Plan Disposition Patient Disposition: SNF (LEVEL 1) [facility] Condition: Stable Discharge Details Reason For Visit: Fungal Pneumonia Admit Date/Time: 10/24/21 18:34 Admit Provider: Eliseo Marie Attending Provider: Eliseo Marie Primary Care Provider: Ana Wilkes Hospital Course Hospital Course: This is an 81-year-old male with a history of CHF, polymyalgia rheumatica, CKD who was admitted to [facility] 10/04-10/06/2021 for bilateral PE (on Eliquis) and pneumonia.? He now presented for persistent headache, dizziness, feeling feverish, nausea, cough with green sputum, and 4 pound weight gain in the last 2 days. Upon arrive his Temp was99 recta. ? Other viitals within normal limits.? He had complaint of headache but denied neck pain and was oriented x3; no meningeal signs per ED provider. White blood cell count 11.13.? Lactate 2.2.? Troponin negative.? BNP 658.? Procalcitonin 0.2.? Urinalysis notes blood but no evidence of infection.? COVID, flu, RSV negative. CXR:?Indistinct patchy bilateral infiltrates without significant interval change. Pulmonary findings on previous admission were, at least in part, thought to be due to inflammatory process.? He was treated with antibiotics and completed an outpt course consisting of cefpodoxime and doxycycline.? He was discharged on a prednisone taper as well. Cefepime and vanocmyin initiated in the ED.? MRSA screen ordered. Pulmonary medicine and palliative care consulted. COLST form signed / DNR/DNI status. He also endorsed he did not want a feeding tube should that become an option. He was later noted to have otitis media. His antibiotic coverage was changed to clindamycin. 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 High dose methylprednisolone also intiated. This treatment was stopped after pulmonary medicine evaluation and the consideration of SPICE ROOM WORKER/BOOP was discounted. His MRSA screen was negative; Vancomycin discontinued. Procal was negative. Levaquin also discontinued. Methylprednisonone stopped and prednisone 60mg po daily with taper was initiated. Bactrim DS initiated daily for PJP prophylaxis while on prednisone doses >20mg. Further testing showed a positive Fungitell; steroids were disconintued. A bronchoscopy was performed. Repeat Fungitell also strongly positive. Urine histo and blasto were negative. All blood cultures were negative. Autoimmune panel was negative. No growth on fungal sputum culture. Aspergillus Ag negative. Antifungal coverage changed to voriconazole 200 mg BID for 6-12 weeks. The patients respiratory status waxed and waned but overall improved. He also worked with PT and his endurance was certainly poor but improving. At time of d/c he was stable at rest on 2L supplemental O2 per NC and 3-4 while ambulating. He will d/c to SNF, [facility], for further rehab and treatment. Attempts should be made to wean him further from supplemental O2. ? Home Meds and New Rx's Prescriptions: New voriconazole 200 mg tablet 200 mg PO Q12H Qty: 84 0RF Rx Instructions: administer on empty stomach, at least 1 hour before or after meal(s) ipratropium-albuterol 0.5 mg-3 mg(2.5 mg base)/3 mL Solution For Nebulization 3 ml UPD TID Qty: 0 0RF cetirizine 10 mg Tablet 5 mg PO DAILY Qty: 0 0RF fentanyl 12 mcg/hr Patch 72 Hour 12 mcg transdermal Q72H Qty: 0 0RF cholecalciferol (vitamin D3) 25 mcg (1,000 unit) Tablet 2,000 unit PO DAILY Qty: 0 0RF Eliquis 5 mg Tablet 5 mg PO BID Qty: 0 0RF polyethylene glycol 3350 17 gram Powder In Packet 17 g PO DAILY Qty: 0 0RF prednisone 5 mg Tablet 7.5 mg PO DAILY Qty: 0 0RF midodrine 5 mg Tablet 2.5 mg PO TID Qty: 0 0RF potassium chloride [Klor-Con M20] 20 mEq Tablet,Er Particles/Crystals 20 meq PO BID Qty: 0 0RF nystatin 100,000 unit/gram Powder 0 g topical BID Qty: 0 0RF fluticasone propionate 50 mcg/actuation [place],Suspension 16 g NS BID Qty: 0 0RF voriconazole 200 mg Tablet 200 mg PO BID Qty: 0 0RF Patch Removal [Remove Patch] 1 ea transdermal Q24H Qty: 0 0RF Continued nitroglycerin [Nitrostat] 0.4 mg tablet, sublingual 0.4 mg SL Q5-15M PRN0RF albuterol sulfate [ProAir HFA] 90 mcg/actuation HFA aerosol inhaler 2 puff IH Q6H PRN0RF levothyroxine 75 MCG tablet 75 mcg PO DAILY 0RF ropinirole 2 MG tablet 2 mg PO HS 0RF acetaminophen [Tylenol Extra Strength] 500 mg Tablet 1,000 mg PO Q4H PRN0RF sertraline 25 mg tablet 25 mg PO DAILY 0RF Label Comments: TAKE 1 TABLET BY MOUTH EVERY DAY finasteride 5 mg tablet 5 mg PO DAILY 0RF Label Comments: TAKE 1 TABLET BY MOUTH EVERY DAY Mucinex 1,200 mg tablet extended release 12hr 1,200 mg PO BID Qty: 20 0RF furosemide 40 mg tablet 40 mg PO DAILY Qty: 30 0RF pantoprazole [Protonix] 40 mg tablet,delayed release (DR/EC) 40 mg PO DAILY Qty: 30 0RF Bio-K plus 50 billion cell capsule,delayed release(DR/EC) 1 cap PO DAILY 0RF Label Comments: TAKE ONE CAPSULE BY MOUTH EVERY DAY Biotin Plus Keratin 10,000-100 mcg-mg Tablet 1 tab PO DAILY 0RF tamsulosin 0.4 mg capsule 0.8 mg PO DAILY 0RF Label Comments: Take 2 capsule by mouth once a day montelukast 10 mg tablet 10 mg PO DAILY 0RF Label Comments: TAKE 1 TABLET BY MOUTH DAILY ipratropium bromide 21 mcg (0.03 %) spray,non-aerosol 1 spray INTRANASAL Q6H PRN0RF Label Comments: USE 2 SPRAYS IN EACH NOSTRIL TWICE DAILY Discontinued losartan 50 mg tablet 75 mg PO DAILY 0RF prednisone 5 mg tablet 5 mg PO DAILY 0RF Label Comments: TAKE 1 TABLET BY MOUTH DAILY prednisone 10 mg tablet 10 mg PO DAILY Qty: 56 0RF Rx Instructions: 40mg for 7 days, 30mg for 5 days, 20mg for 5 days, 10mg for 3 days Then resume your normal 5 mg daily dosing Eliquis DVT-PE Treat 30D Start 5 mg (74 tabs) tablets,dose pack 5 mg PO BID 0RF Rx Instructions: Take 10 mg BID x 6 days then 5 mg bid Discharge Instructions Referrals: Justin Valdez MD [ [facility] STAFF PHYSICIAN] - Aimee Rodrigues MD [ [facility] STAFF PHYSICIAN] - 12/12/21 3:00 pm Activity:: Activity as Tolerated Equipment/Supplies:: No Equipment Needed Diet:: Low Sodium Discharge Orders Discharge Orders: Discharge Order (Routine); Ordered 11/20/21 Ordered By: Eliseo Marie DS: Summary Time Spent with Patient providing and/or coordinating discharge services: Greater than 30 minutes Status at Discharge Functional status at discharge: independent ambulation Overall status at discharge: patient is progressing back to baseline Mental Status: mental status grossly normal Speech and Movement: speech and movement normal Mood: congruent mood Affect: normal affect and blunted Exam Narrative Exam Narrative: Reclined in his recliner. Const General: cooperative, not healthy appearing, no acute distress, frail appearing and not ill appearing Nutritional Appearance: average body habitus and overweight Orientation: alert, awake and oriented x3 HENMT Head: normal to inspection and atraumatic Ears: hearing grossly normal bilaterally and TM normal on the left Face and sinus: normal facial exam Mouth: oral mucosae normal Eyes General: appearance normal, both eyes and all related structures Eyelids: eyelids normal Sclera: sclerae normal Neck Neck: normal visual inspection, full ROM, negative Kernig's sign and no JVD Resp Effort & Inspection: normal respiratory effort and able to speak in complete sentences Auscultation: not clear to auscultation bilaterally, crackles (course) bilaterally, diminished lung sounds on the left throughout, rales and wheezes (faint) Cardio Jugular venous pressure: no JVD Rate: regular rate and tachycardic Rhythm: regular rhythm Heart Sounds: S1 normal and S2 normal GI Inspection: normal to inspection and obesity Palpation: soft, not firm, no guarding and nontender Auscultation: normal bowel sounds Back/Spine/Pelvis Back: no CVA tenderness Cervical Spine: normal cervical lordosis Thoracic/Lumbar Spine: thoracic and lumbar spine normal to inspection Skin General skin exam: no rashes or lesions noted and other (scattered ecchymosis) Neuro General: patient alert, patient awake, patient oriented x3 and moves all extremities Cognition: normal cognition Speech: speech normal Gait: normal gait Extrem General: normal to inspection, no pedal edema, no calf tenderness and edema Laterality: bilateral Psych Appearance: grossly normal Mental Status: mental status grossly normal Speech and Movement: speech and movement normal Mood: congruent mood Affect: normal affect and blunted Attitude: cooperative Thought Process: normal Thought Content: normal Insight: insight good Judgment: fair DS: Data Vitals/I&O Vitals and I&O: Vital Signs Temperature 36 C L 11/20/21 08:50 Temperature Source Tympanic 11/20/21 08:50 Pulse 96 H 11/20/21 08:50 Pulse Rhythm Regular 11/20/21 03:26 Pulse 103 H 11/05/21 20:00 Respiratory Rate 18 11/20/21 08:50 Respiratory Effort Non-Labored 11/20/21 03:26 Respiratory Depth Normal 11/20/21 03:26 Respiratory Pattern Normal 11/20/21 03:26 Blood Pressure 108/67 11/20/21 08:50 Blood Pressure Mean 96 11/05/21 15:30 Blood Pressure Position Sitting 11/05/21 07:45 Pulse Oximetry 94 11/20/21 08:50 Respiratory End-tidal CO2 28 11/09/21 13:05 Oxygen Delivery Method Nasal Cannula 11/20/21 08:50 Oxygen Flow Rate 2 11/20/21 08:50 Fraction of Inspired Oxygen (FIO2) 29 11/19/21 07:59 Pain Level 0 11/20/21 03:48 Comment 11/16/21 14:33 Intake & Output 11/19/21 11/19/21 11/20/21 11:59 23:59 11:59 Intake Total 370 / 690 320 / 690 10 10 Output Total 350 / 550 200 / 550 500 / 500 Balance 20 / 140 120 / 140 -490 / -490 Weight 83.4 kg 83.6 kg Intake: IV 10 10 Oral 360 / 660 300 / 660 Output: Urine 350 / 550 200 / 550 500 / 500 Other: Urine Color Yellow Yellow Yellow Urine Appearance Clear Clear Clear Urine Odor Normal Normal None Stool Size Moderate Moderate Stool Characteristics Formed Soft Voiding Methods Urinal Urinal Toilet Data Completed and Pending Labs on day of discharge: Labs from last 24 hours 11/18/21 09:00 Voriconazole Pending [facility] All Active Problems PMR (polymyalgia rheumatica) (Acute) Fungal pneumonia (Acute) Acute respiratory failure with hypoxia (Acute) Palliative care patient (Acute) Acute kidney injury superimposed on CKD (Acute) Pulmonary infiltrate (Acute) DNR (do not resuscitate) (Acute) Advanced care planning/counseling discussion (Acute) Acute sinusitis (Acute) History of pulmonary embolism (Acute) Dizziness (Acute) Discharge planning issues (Acute) DVT prophylaxis (Acute) SOB (shortness of breath) (Acute) Sleep apnea (Chronic) PAD (peripheral artery disease) (Chronic) Medical History Acute kidney injury superimposed on chronic kidney disease Bilateral pneumonia BPH (benign prostatic hyperplasia) Chronic ethmoidal sinusitis Chronic frontal sinusitis Chronic kidney disease Deviated nasal septum Dilated aortic root Discharge planning issues DVT prophylaxis E coli bacteremia Fractured rib mid Sept 2018 Hypothyroidism Kidney stone Lyme disease Nasal septal spur Nasal turbinate hypertrophy Palliative care encounter Parkinsons pt. states he does not have Pneumonia Polymyalgia rheumatica pt. reports he has this not parkinsons Pulmonary fat embolism Pyelonephritis due to Escherichia coli Surgical History Hx of colonoscopy Hx of inguinal hernia surgery Hx of total hip arthroplasty right Social History Smoking/Tobacco Use Status: Former Tobacco Use Quit Date: 09/08/81 Smoking risk assessment performed?: Yes Alcohol Intake: current Alcohol Intake frequency: 0-2 drinks per day Alcohol type: beer and hard liquor Drug use: Never Substance use type: does not use Do you feel safe at home: Yes Do you feel safe in your relationship?: Yes Additional Social history: Abby Flores neightbor/friend [phone]
--- NOTE | 2021-11-20 11:49 | PDOC.CMDIS ---
- If Service Date Differs Date of service: 11/20/21 Time of Service: 11:49 LACE Index Scoring Tool - Questions: Length of Stay (in days): 14 or more Acuity (Admit via E.D.?): Yes Comorbidities: Liver or Renal Disease E.D. Visits: 3 - Answers: Total Score: 18 Risk of Readmission: High Risk Care Management Discharge Reason for Hospitalization: Pneumonia Discharge Plan: Al [place] [facility] rehab prior to returning home. [facility] w/[facility] van will transport him, coordinated by CM. He will follow up with his PCP and discharge plan of care. He is happy to be moving on to rehab, in anticipation of returning home once he is stronger and more independent. Patient/Family Education Needs: Review discharge instructions, limitations and expectations for rehab, discussion of self care needs including ask me three and goals of care. Services Needed at Discharge: [facility] Facility [place] Transportation ([facility] [place])
[2021-11-20 12:51] LABS: Source Nasal/Nares
[2021-11-20 13:29] LABS: COVID-19 PCR Negative (Negative)
[2021-11-23 09:06] LABS: Voriconazole, S 1.4 mcg/mL (1.0 - 5.5)
[2021-12-07 12:30] LABS: Fungus Smear No Fungi Seen
== END 2021-11-20 14:15 | disposition skilled nursing facility (03) | DRG 193 ==
LOC: ER 19:31 → MS 19:50 → ICU 11-02 16:16 → MS 11-05 20:32
PROVIDERS: Family Medicine; Internal Medicine; Nurse Practitioner Acute Care; Nurse Practitioner Family; Student in an Organized Health Care Education/Training Program; Admitting Provider Family Medicine; Emergency Provider Physician Assistant; PCP Nurse Practitioner Family; Visit Provider Family Medicine
PROC: 0BJ08ZZ Inspection of Tracheobronchial Tree, Via Natural or Artificial Opening Endoscopic (ICD-10-PCS; CPT 31622; principal; 2021-11-09 12:00)
DX: J18.9 Pneumonia, unspecified organism (principal); J96.01 Acute respiratory failure with hypoxia; I26.99 Other pulmonary embolism without acute cor pulmonale; E27.40 Unspecified adrenocortical insufficiency; N17.9 Acute kidney failure, unspecified; J84.9 Interstitial pulmonary disease, unspecified; B49 Unspecified mycosis; N18.9 Chronic kidney disease, unspecified; M35.3 Polymyalgia rheumatica; I50.9 Heart failure, unspecified; Z79.01 Long term (current) use of anticoagulants; E03.9 Hypothyroidism, unspecified; G47.30 Sleep apnea, unspecified; I73.9 Peripheral vascular disease, unspecified; N40.0 Benign prostatic hyperplasia without lower urinary tract symptoms; Z96.641 Presence of right artificial hip joint; I95.1 Orthostatic hypotension; H65.192 Other acute nonsuppurative otitis media, left ear; J01.10 Acute frontal sinusitis, unspecified; J32.1 Chronic frontal sinusitis; R51.9 Headache, unspecified; Z66 Do not resuscitate
CPT/HCPCS: 31624; 36410; 36415; 71250; 71275; 80048; 80053; 80076; 80162; 82803; 82805; 84145; 85652; 86200; 86255; 86713; 87040; 87070; 87081; 87102; 87116; 87205; 87206; 87305; 87449; 87632; 87635; 87637; 93005; 93308; 96361; 96365; 96367; 97110; 97162; 97530; 99285; 36600; 70450; 70487; 71045; 71046; 80202; 80299; 81003; 81015; 82728; 83605; 83735; 83880; 84443; 84484; 85025; 86003; 86038; 86140; 86225; 86235; 86431; 86606; 87385; 87581; 88104; 88312; 89051; 93010; 94640; 94667; 99232; 99233; 99239; J0131; J1720; J1885; J1940; J1941; J1956; J2001; J2543; J2930; J3490; J7512; J7613; J7620

== ENCOUNTER → 2021-11-13 02:36 | Outpatient (CLI) | payer MEDICARE, SELFPAY | PROVIDERS: PCP Nurse Practitioner Family; Visit Provider Student in an Organized Health Care Education/Training Program ==

== ENCOUNTER 2021-11-27 14:34 | Outpatient (REF) | payer MEDICARE, SELFPAY ==
[2021-11-27 15:07] LABS: Abs Immature Grans 0.23 10^3/uL (0.0-0.06); Absolute Eosinophil Count 1.24 10^3/uL (0.0-0.7); Absolute Monocyte Count 0.75 10^3/uL (0.1-0.8); Basophils % 0.5; Eosinophils % 11.4; HCT 36.1 % (40.0-50.0); HGB 11.9 g/dL (13.5-17.5); Immature Grans % 2.1; MPV 10.4 fL (8.0-11.0); Monocytes % 6.9; Neutrophils % 73.1; Nucleated RBC 0 %; Platelet Count 218 10^3/uL (130-400); RBC 3.61 10^6/uL (4.36-5.78); RDW 13.4 % (11.8-14.1); RDW-SD 49.1 fL; WBC 10.92 10^3/uL (4.4-10.8)
[2021-11-27 15:11] LABS: Absolute Basophil Count 0.05 10^3/uL (0.0-0.2); Absolute Lymphocyte Count 0.66 10^3/uL (1.2-3.4); Absolute Neutrophil Count 7.98 10^3/uL (1.2-6.7)
[2021-11-27 15:22] LABS: Iron 79 ug/dL (65-175)
[2021-11-27 15:25] LABS: Hemoglobin A1C 6.9 % (<5.7)
[2021-11-27 15:46] LABS: ALT 34 U/L (16-63); AST 37 U/L (15-37); Albumin 3.5 g/dL (3.4-5.0); Alkaline Phosphatase 85 U/L (46-116); Anion Gap 5.7 mmol/L (3-11); BUN 34 mg/dL (7-18); Bilirubin, Total 0.8 mg/dL (0.2-1.0); CO2 31.3 mmol/L (21.0-32.0); CREATININE 1.8 mg/dL (0.70-1.30); Calcium 8.9 mg/dL (8.5-10.1); Chloride 102 mmol/L (98-107); Estimated GFR 36.39 (mL/min/1.73m2); Ferritin 455 ng/mL (26-388); Folate 4.6 ng/mL (8.6-20.0); Glucose 95 mg/dL (74-106); Magnesium 2.1 mg/dL (1.8-2.4); Potassium 5.2 mmol/L (3.5-5.1); Sodium 139 mmol/L (136-145); TSH (W/Ref FT4) 2.91 uIU/mL (0.36-3.74); Total Protein 6.5 g/dL (6.4-8.2); Vitamin B12 438 pg/mL (193-986)
[2021-11-29 05:32] LABS: Vitamin D 25 Total 42.8 ng/mL (30-100)
== END 2021-11-27 14:35 | disposition home or self-care (01) ==
LOC: LBN 14:34
PROVIDERS: PCP Nurse Practitioner Family; Visit Provider Nurse Practitioner Gerontology
DX: Z13.9 Encounter for screening, unspecified (principal); J96.01 Acute respiratory failure with hypoxia; E03.9 Hypothyroidism, unspecified; N18.9 Chronic kidney disease, unspecified
CPT/HCPCS: 80053; 82306; 80299; 82607; 82728; 82746; 83036; 83540; 83735; 84443; 85025

== ENCOUNTER 2021-12-04 15:56 | Outpatient (REF) | payer MEDICARE, SELFPAY ==
[2021-12-04 19:46] LABS: Anion Gap 4.2 mmol/L (3-11); BUN 23 mg/dL (7-18); CO2 33.8 mmol/L (21.0-32.0); CREATININE 1.4 mg/dL (0.70-1.30); Calcium 8.4 mg/dL (8.5-10.1); Chloride 106 mmol/L (98-107); Estimated GFR 48.64 (mL/min/1.73m2); Glucose 91 mg/dL (74-106); Sodium 144 mmol/L (136-145)
[2021-12-04 19:58] LABS: Abs Immature Grans 0.18 10^3/uL (0.0-0.06); Absolute Basophil Count 0.05 10^3/uL (0.0-0.2); Absolute Eosinophil Count 1.19 10^3/uL (0.0-0.7); Absolute Lymphocyte Count 0.86 10^3/uL (1.2-3.4); Absolute Monocyte Count 0.83 10^3/uL (0.1-0.8); Absolute Neutrophil Count 7.66 10^3/uL (1.2-6.7); Basophils % 0.5; HCT 36.1 % (40.0-50.0); HGB 11.5 g/dL (13.5-17.5); Immature Grans % 1.7; MCHC 31.9 % (32.0-36.0); MCV 103.7 fL (80-95); MPV 10.1 fL (8.0-11.0); Monocytes % 7.7; Neutrophils % 71.1; Nucleated RBC 0 %; Platelet Count 223 10^3/uL (130-400); RBC 3.48 10^6/uL (4.36-5.78); RDW 13.7 % (11.8-14.1); RDW-SD 52.8 fL; WBC 10.77 10^3/uL (4.4-10.8)
== END 2021-12-04 15:57 | disposition home or self-care (01) ==
LOC: LBN 15:56
PROVIDERS: PCP Nurse Practitioner Family; Visit Provider Nurse Practitioner Gerontology
DX: I50.42 Chronic combined systolic (congestive) and diastolic (congestive) heart failure (principal)
CPT/HCPCS: 80048; 85025

== ENCOUNTER → 2021-12-11 03:11 | Outpatient (CLI) | payer MEDICARE, SELFPAY ==
--- NOTE | 2021-12-11 11:03 | DI.CT_ITS ---
Exam(s) CT CHEST WO EXAM: CT CHEST WO CLINICAL HISTORY: F/U ON INFILTRATES. TECHNIQUE: Imaging protocol: Axial computed tomography images were obtained and coronal and sagittal reformatted images were created and reviewed. COMPARISON: CT CT CHEST PE CTA from 11/02/[address] CHEST WO from 11/12/2021 FINDINGS: Tracheobronchial tree: Patent where visualized. Pulmonary parenchyma: No new focal consolidating infiltrates are seen. The current changes in the bon ngs likely reflect chronic disease. There is diffuse pulmonary fibrosis. Mediastinum and Elsa: No dominant adenopathy or fluid collection. The esophagus is unremarkable. Thyroid gland: Unremarkable. Pleura: No effusion or pneumothorax. Heart: Mild cardiomegaly. Coronary artery calcifications. No pericardial effusion. Aorta: The ascending thoracic aorta measures 4.9 cm x 4.9 cm. There is atherosclerosis present Upper abdomen: No acute abnormality is seen. Diverticulosis is present in the colon. Lymph nodes: Within normal limits. Soft tissues: Unremarkable. Bones:Within normal limits for the patient's age. IMPRESSION: 1. Continued improvement in the appearance of the lungs. No new infiltrates are seen. Underlying di ffuse pulmonary fibrosis is present. 2. Stable 4.9 x 4.9 cm ascending thoracic aorta. RADIATION DOSE DELIVERED: 697.91mGy.cm Total DLP 697.91mGy.cm Total DLP DATA REPOSITORY: All CT scans at this facility are submitted to the National Radiology Data Registry (NRDR) Dose Index Registry (DIR) with the [employer] ([employer]). RADIATION OPTIMIZATION: All CT scans at this facility use at least one of these dose optimization te chniques: automated exposure control; mA and/or kV adjustment per patient size (includes targeted exa ms where dose is matched to clinical indication); or iterative reconstruction.
== END ==
PROVIDERS: PCP Nurse Practitioner Family; Visit Provider Nurse Practitioner Gerontology
DX: R91.8 Other nonspecific abnormal finding of lung field (principal); J84.10 Pulmonary fibrosis, unspecified; I25.10 Atherosclerotic heart disease of native coronary artery without angina pectoris
CPT/HCPCS: 71250

== ENCOUNTER 2021-12-11 20:08 | Outpatient (REF) | payer MEDICARE, SELFPAY ==
[2021-12-11 20:33] LABS: ALT 40 U/L (16-63); AST 23 U/L (15-37); Alkaline Phosphatase 63 U/L (46-116); Anion Gap 3.9 mmol/L (3-11); BUN 21 mg/dL (7-18); Bilirubin, Total 0.5 mg/dL (0.2-1.0); CO2 33.1 mmol/L (21.0-32.0); CREATININE 1.4 mg/dL (0.70-1.30); Calcium 8.3 mg/dL (8.5-10.1); Chloride 104 mmol/L (98-107); Estimated GFR 48.64 (mL/min/1.73m2); Glucose 87 mg/dL (74-106); NT-proBNP 429 pg/mL (<300); Potassium 3.8 mmol/L (3.5-5.1); Sodium 141 mmol/L (136-145); Total Protein 5.3 g/dL (6.4-8.2)
== END 2021-12-11 20:09 | disposition home or self-care (01) ==
LOC: LBN 20:08
PROVIDERS: PCP Nurse Practitioner Family; Visit Provider Internal Medicine
DX: I50.40 Unspecified combined systolic (congestive) and diastolic (congestive) heart failure (principal); N18.9 Chronic kidney disease, unspecified; M62.81 Muscle weakness (generalized)
CPT/HCPCS: 80053; 83880

== ENCOUNTER 2021-12-12 12:57 | Outpatient (REF) | payer SELFPAY ==
[2021-12-14 11:17] LABS: Fungitell Qualitative Negative (Negative); Fungitell Quantitative Value 43 pg/mL (<60 pg/mL)
== END 2021-12-12 12:58 | disposition home or self-care (01) ==
LOC: LBN 12:57
PROVIDERS: PCP Nurse Practitioner Family; Visit Provider Student in an Organized Health Care Education/Training Program
DX: J16.8 Pneumonia due to other specified infectious organisms (principal)
CPT/HCPCS: 87449

== ENCOUNTER 2021-12-18 16:09 | Outpatient (REF) | payer MEDICARE, SELFPAY ==
[2021-12-18 19:27] LABS: ALT 49 U/L (16-63); AST 22 U/L (15-37); Albumin 3.4 g/dL (3.4-5.0); Alkaline Phosphatase 68 U/L (46-116); Anion Gap 6.9 mmol/L (3-11); BUN 25 mg/dL (7-18); Bilirubin, Total 0.8 mg/dL (0.2-1.0); CO2 32.1 mmol/L (21.0-32.0); CREATININE 1.4 mg/dL (0.70-1.30); Calcium 9.1 mg/dL (8.5-10.1); Chloride 102 mmol/L (98-107); Estimated GFR 48.64 (mL/min/1.73m2); Glucose 130 mg/dL (74-106); Potassium 3.9 mmol/L (3.5-5.1); Sodium 141 mmol/L (136-145); Total Protein 6.1 g/dL (6.4-8.2)
== END 2021-12-18 16:10 | disposition home or self-care (01) ==
LOC: LBN 16:09
PROVIDERS: PCP Nurse Practitioner Family; Visit Provider Nurse Practitioner Gerontology
DX: I50.42 Chronic combined systolic (congestive) and diastolic (congestive) heart failure (principal); N18.9 Chronic kidney disease, unspecified
CPT/HCPCS: 80053

== ENCOUNTER 2021-12-25 15:47 | Outpatient (REF) | payer MEDICARE, SELFPAY ==
[2021-12-25 20:57] LABS: ALT 27 U/L (16-63); AST 15 U/L (15-37); Albumin 2.9 g/dL (3.4-5.0); Alkaline Phosphatase 56 U/L (46-116); Anion Gap 3.7 mmol/L (3-11); BUN 20 mg/dL (7-18); Bilirubin, Total 0.5 mg/dL (0.2-1.0); CO2 37.3 mmol/L (21.0-32.0); CREATININE 1.4 mg/dL (0.70-1.30); Calcium 8.8 mg/dL (8.5-10.1); Chloride 103 mmol/L (98-107); Estimated GFR 48.64 (mL/min/1.73m2); Glucose 92 mg/dL (74-106); Sodium 144 mmol/L (136-145); TSH (W/Ref FT4) 1.16 uIU/mL (0.36-3.74); Total Protein 5.2 g/dL (6.4-8.2)
== END 2021-12-25 15:48 | disposition home or self-care (01) ==
LOC: LBN 15:47
PROVIDERS: PCP Nurse Practitioner Family; Visit Provider Nurse Practitioner Gerontology
DX: E03.9 Hypothyroidism, unspecified (principal); N18.9 Chronic kidney disease, unspecified; I50.42 Chronic combined systolic (congestive) and diastolic (congestive) heart failure; J16.8 Pneumonia due to other specified infectious organisms
CPT/HCPCS: 80053; 84443

== ENCOUNTER 2021-12-28 00:59 | Outpatient (CLI) | payer MEDICARE, SELFPAY ==
[2021-12-28] MEDS: Inhaler, Assist Device 1 EACH MC (14:21)
[2021-12-28] MEDS: Albuterol HFA 18 GM 200 PUFF INH IH (14:21)
== END 2021-12-28 01:00 | disposition home or self-care (01) ==
LOC: RT 00:59
PROVIDERS: PCP Nurse Practitioner Family; Visit Provider Student in an Organized Health Care Education/Training Program

== ENCOUNTER 2022-01-01 18:15 | Outpatient (REF) | payer MEDICARE, SELFPAY ==
[2022-01-01 18:53] LABS: ALT 19 U/L (16-63); AST 17 U/L (15-37); Albumin 3.5 g/dL (3.4-5.0); Alkaline Phosphatase 65 U/L (46-116); Anion Gap 6.6 mmol/L (3-11); BUN 20 mg/dL (7-18); Bilirubin, Total 0.9 mg/dL (0.2-1.0); CO2 33.4 mmol/L (21.0-32.0); CREATININE 1.6 mg/dL (0.70-1.30); Calcium 9.1 mg/dL (8.5-10.1); Chloride 100 mmol/L (98-107); Estimated GFR 41.69 (mL/min/1.73m2); Glucose 142 mg/dL (74-106); Potassium 4.1 mmol/L (3.5-5.1); Sodium 140 mmol/L (136-145); Total Protein 6.3 g/dL (6.4-8.2)
== END 2022-01-01 18:16 | disposition home or self-care (01) ==
LOC: LBN 18:15
PROVIDERS: PCP Nurse Practitioner Family; Visit Provider Nurse Practitioner Gerontology
DX: J96.01 Acute respiratory failure with hypoxia (principal); I50.42 Chronic combined systolic (congestive) and diastolic (congestive) heart failure; N18.9 Chronic kidney disease, unspecified; I73.9 Peripheral vascular disease, unspecified; M62.81 Muscle weakness (generalized); J16.8 Pneumonia due to other specified infectious organisms; Z86.711 Personal history of pulmonary embolism
CPT/HCPCS: 80053

== ENCOUNTER → 2022-01-03 08:57 | Outpatient (BNVA) | payer MEDICARE, SELFPAY | PROVIDERS: PCP Nurse Practitioner Family; Visit Provider Nurse Practitioner Gerontology | DX: N40.1 Benign prostatic hyperplasia with lower urinary tract symptoms (principal); R39.14 Feeling of incomplete bladder emptying; N20.0 Calculus of kidney; N39.0 Urinary tract infection, site not specified | CPT/HCPCS: 51798; 99214 ==

== ENCOUNTER 2022-03-08 12:31 | Outpatient (REF) | payer MEDICARE, SELFPAY ==
[2022-03-08 13:54] LABS: Anion Gap 5.6 mmol/L (3-11); BUN 28 mg/dL (7-18); CO2 35.4 mmol/L (21.0-32.0); CREATININE 1.5 mg/dL (0.70-1.30); Calcium 9.3 mg/dL (8.5-10.1); Chloride 99 mmol/L (98-107); Estimated GFR 44.92 (mL/min/1.73m2); Glucose 111 mg/dL (74-106); NT-proBNP 2523 pg/mL (<300); Potassium 3.4 mmol/L (3.5-5.1); Sodium 140 mmol/L (136-145)
== END 2022-03-08 12:32 | disposition home or self-care (01) ==
LOC: NCHCN 12:31
PROVIDERS: PCP Nurse Practitioner Family; Visit Provider Nurse Practitioner Family
DX: I50.9 Heart failure, unspecified (principal)
CPT/HCPCS: 80048; 83880

== ENCOUNTER 2022-04-01 17:55 | Outpatient (REF) | payer MEDICARE, SELFPAY ==
[2022-04-01 19:56] LABS: Abs Immature Grans 0.04 10^3/uL (0.0-0.06); Absolute Basophil Count 0.02 10^3/uL (0.0-0.2); Absolute Eosinophil Count 0.03 10^3/uL (0.0-0.7); Absolute Lymphocyte Count 0.58 10^3/uL (1.2-3.4); Absolute Neutrophil Count 6.29 10^3/uL (1.2-6.7); Basophils % 0.3; Eosinophils % 0.4; HCT 36.6 % (40.0-50.0); HGB 12.6 g/dL (13.5-17.5); Immature Grans % 0.5; Lymphocytes % 7.9; MCH 34.1 pg (27.0-33.0); MCHC 34.4 % (32.0-36.0); MCV 99 fL (80-95); MPV 10.4 fL (8.0-11.0); Monocytes % 5.4; Neutrophils % 85.5; Platelet Count 174 10^3/uL (130-400); RBC 3.69 10^6/uL (4.36-5.78); RDW 15.6 % (11.8-14.1); RDW-SD 56.7 fL; WBC 7.36 10^3/uL (4.4-10.8)
[2022-04-01 20:08] LABS: ALT 19 U/L (16-63); AST 23 U/L (15-37); Albumin 3.6 g/dL (3.4-5.0); Alkaline Phosphatase 52 U/L (46-116); Anion Gap 11.8 mmol/L (3-11); BUN 27 mg/dL (7-18); Bilirubin, Total 1.3 mg/dL (0.2-1.0); CO2 25.2 mmol/L (21.0-32.0); Calcium 8.9 mg/dL (8.5-10.1); Chloride 104 mmol/L (98-107); Estimated GFR 32.23 (mL/min/1.73m2); Glucose 188 mg/dL (74-106); Potassium 4.1 mmol/L (3.5-5.1); Sodium 141 mmol/L (136-145); Total Protein 6.1 g/dL (6.4-8.2)
== END 2022-04-01 17:56 | disposition home or self-care (01) ==
LOC: LBN 17:55
PROVIDERS: PCP Nurse Practitioner Family; Visit Provider Student in an Organized Health Care Education/Training Program
DX: J84.112 Idiopathic pulmonary fibrosis; M35.3 Polymyalgia rheumatica; I27.20 Pulmonary hypertension, unspecified; Z79.899 Other long term (current) drug therapy
CPT/HCPCS: 80053; 85025

== ENCOUNTER 2022-05-01 15:29 | Outpatient (REF) | payer MEDICARE, SELFPAY | END 2022-05-01 15:30 | disposition home or self-care (01) | LOC: NCHCN 15:29 | PROVIDERS: Visit Provider Nurse Practitioner Family | DX: R35.0 Frequency of micturition (principal) | CPT/HCPCS: 87077; 87086; 87186 ==

== ENCOUNTER → 2022-06-10 02:45 | Outpatient (CLI) | payer MEDICARE, SELFPAY ==
--- NOTE | 2022-06-10 07:30 | DI.RAD_ITS ---
Exam(s) XR ABDOMEN FLAT PLATE EXAM: 2D digital imaging was performed. CLINICAL HISTORY: monitoring renal stone,h/o renal calculi,z87.442. COMPARISON: CT CT ABDOMEN PELVIS WO from 08/27/2021 CR XR ABDOMEN FLAT UPRIGHT from 08/29/2021 TECHNIQUE: Supine views of the abdomen performed. FINDINGS: BOWEL GAS PATTERN: Nondistended. CALCIFICATIONS: 8 millimeter elongated stone is again noted at the lower pole of the right kidney. No additional calculi are visible. OSSEOUS STRUCTURES: Right hip prosthesis. Degenerative changes are noted in the spine and left hip. OTHER FINDINGS: None. IMPRESSION: 1. Nonobstructive bowel gas pattern. 2. Stable 8 millimeter stone lower pole right kidney. DATA REPOSITORY: RADIATION DOSE DELIVERED:
== END ==
PROVIDERS: Visit Provider Nurse Practitioner Gerontology
DX: N20.0 Calculus of kidney (principal); Z87.442 Personal history of urinary calculi
CPT/HCPCS: 74018

== ENCOUNTER → 2022-06-11 09:51 | Outpatient (BNVA) | payer MEDICARE, SELFPAY | PROVIDERS: Visit Provider Nurse Practitioner Gerontology | DX: N40.1 Benign prostatic hyperplasia with lower urinary tract symptoms (principal); R39.14 Feeling of incomplete bladder emptying; R31.0 Gross hematuria; N20.0 Calculus of kidney | CPT/HCPCS: 51798; 81003; 99214 ==

== ENCOUNTER 2022-06-11 11:37 | Outpatient (REF) | payer MEDICARE, SELFPAY | END 2022-06-11 11:38 | disposition home or self-care (01) | LOC: LBN 11:37 | PROVIDERS: Visit Provider Nurse Practitioner Gerontology | DX: R31.9 Hematuria, unspecified (principal) | CPT/HCPCS: 87077; 87086; 87186 ==

== ENCOUNTER 2022-06-14 16:53 | Outpatient (REF) | payer MEDICARE, SELFPAY ==
[2022-06-14 18:30] LABS: Abs Immature Grans 0.06 10^3/uL (0.0-0.06); Absolute Basophil Count 0.02 10^3/uL (0.0-0.2); Absolute Eosinophil Count 0.01 10^3/uL (0.0-0.7); Absolute Lymphocyte Count 0.23 10^3/uL (1.2-3.4); Absolute Monocyte Count 0.37 10^3/uL (0.1-0.8); Basophils % 0.2; Eosinophils % 0.1; HCT 37.1 % (40.0-50.0); HGB 12.3 g/dL (13.5-17.5); Immature Grans % 0.5; Lymphocytes % 1.9; MCH 36.7 pg (27.0-33.0); MCHC 33.2 % (32.0-36.0); MCV 111 fL (80-95); MPV 10.3 fL (8.0-11.0); Neutrophils % 94.3; Platelet Count 170 10^3/uL (130-400); RBC 3.35 10^6/uL (4.36-5.78); RDW 12.5 % (11.8-14.1); RDW-SD 50.6 fL
[2022-06-14 20:15] LABS: ALT 12 U/L (16-63); AST 16 U/L (15-37); Albumin 3.6 g/dL (3.4-5.0); Alkaline Phosphatase 56 U/L (46-116); Anion Gap 6.6 mmol/L (3-11); BUN 35 mg/dL (7-18); Bilirubin, Total 1.4 mg/dL (0.2-1.0); CO2 34.4 mmol/L (21.0-32.0); CREATININE 2.2 mg/dL (0.70-1.30); Chloride 98 mmol/L (98-107); Estimated GFR 29.36 (mL/min/1.73m2); Glucose 121 mg/dL (74-106); Potassium 3.5 mmol/L (3.5-5.1); Sodium 139 mmol/L (136-145); Total Protein 6.2 g/dL (6.4-8.2)
== END 2022-06-14 16:54 | disposition home or self-care (01) ==
LOC: LBN 16:53
PROVIDERS: Visit Provider Student in an Organized Health Care Education/Training Program
DX: Z79.899 Other long term (current) drug therapy (principal); J84.112 Idiopathic pulmonary fibrosis
CPT/HCPCS: 80053; 85025

== ENCOUNTER 2022-06-26 19:10 | Outpatient (REF) | payer MEDICARE, SELFPAY ==
[2022-06-26 19:44] LABS: Abs Immature Grans 0.03 10^3/uL (0.0-0.06); Absolute Basophil Count 0.04 10^3/uL (0.0-0.2); Absolute Eosinophil Count 0.03 10^3/uL (0.0-0.7); Absolute Lymphocyte Count 0.64 10^3/uL (1.2-3.4); Absolute Monocyte Count 0.77 10^3/uL (0.1-0.8); Absolute Neutrophil Count 7.45 10^3/uL (1.2-6.7); Basophils % 0.4; Eosinophils % 0.3; HCT 37.7 % (40.0-50.0); HGB 12.9 g/dL (13.5-17.5); Immature Grans % 0.3; Lymphocytes % 7.1; MCH 36.8 pg (27.0-33.0); MCHC 34.2 % (32.0-36.0); MCV 107 fL (80-95); MPV 10.6 fL (8.0-11.0); Monocytes % 8.6; Neutrophils % 83.3; Platelet Count 202 10^3/uL (130-400); RBC 3.51 10^6/uL (4.36-5.78); RDW 12.2 % (11.8-14.1); RDW-SD 48.2 fL; WBC 8.96 10^3/uL (4.4-10.8)
[2022-06-26 19:48] LABS: ESR 54 mm/hr (0-20)
[2022-06-26 20:35] LABS: ALT 14 U/L (16-63); AST 19 U/L (15-37); Albumin 3.3 g/dL (3.4-5.0); Alkaline Phosphatase 68 U/L (46-116); Anion Gap 10.4 mmol/L (3-11); BUN 37 mg/dL (7-18); Bilirubin, Total 1.6 mg/dL (0.2-1.0); CO2 28.6 mmol/L (21.0-32.0); CREATININE 2.5 mg/dL (0.70-1.30); Calcium 8.7 mg/dL (8.5-10.1); Chloride 97 mmol/L (98-107); Estimated GFR 25.18 (mL/min/1.73m2); Glucose 107 mg/dL (74-106); Potassium 4.3 mmol/L (3.5-5.1); Sodium 136 mmol/L (136-145); TSH (W/Ref FT4) 4.28 uIU/mL (0.36-3.74); Total Protein 6.3 g/dL (6.4-8.2); Vitamin B12 626 pg/mL (193-986)
[2022-06-26 20:39] LABS: Diff Comment RBC Morph Reviewed; Macrocytosis 2+
[2022-06-26 20:51] LABS: C-Reactive Protein 23.88 mg/dL (0.0-0.3); FREE T4 1.41 ng/dL (0.76-1.46)
[2022-06-28 11:19] LABS: Lyme Ab w Rflx to Lyme Confirm Negative (Negative)
[2022-06-29 17:07] LABS: Anaplasma phagocytophilum Negative (Negative); B. miyamotoi PCR Negative (Negative); Babesia divergens/MO-1 Negative (Negative); Babesia duncani Negative (Negative); Babesia microti Negative (Negative); Ehrlichia chaffeensis Negative (Negative); Ehrlichia ewingii/canis Negative (Negative); Ehrlichia muris eauclairensis Negative (Negative)
== END 2022-06-26 19:11 | disposition home or self-care (01) ==
LOC: NCHCN 19:10
PROVIDERS: Visit Provider Family Medicine
DX: G62.9 Polyneuropathy, unspecified (principal)
CPT/HCPCS: 80053; 85652; 87798; 82607; 84439; 84443; 85025; 86140; 86618

== ENCOUNTER → 2022-07-02 01:49 | Outpatient (CLI) | payer MEDICARE, SELFPAY ==
--- NOTE | 2022-07-02 07:15 | DI.CT_ITS ---
Exam(s) CT CHEST WO EXAM: CT CHEST WO CLINICAL HISTORY: f/u IPF flare infiltrates,pulmonary fibrosis, j84.112. TECHNIQUE: Multi planar reconstructions were performed. CONTRAST MATERIAL: None COMPARISON: CT CT CHEST WO from 12/11/2021 FINDINGS: CHEST: LUNGS: Again noted is extensive bilateral advanced pulmonary fibrosis although there is mild improvem ent when compared to the most recent study of December 2021. There is no significant progression when c ompared to prior study. Indeed, there may be mild improvement. There are no ominous pulmonary nodul es and there are no new confluent infiltrates nor pleural effusions.. There are no new significant f ocal findings in the trachea and mainstem bronchi. MEDIASTINUM: There is no obvious hilar nor mediastinal adenopathy. Visualized thyroid unremarkable.No obvious axillary adenopathy CARDIAC: Cardiomegaly. Thoracic aorta is enlarged. Ascending thoracic aorta measures 4.9 cm, simila r to previous. Diameter of the aortic arch is 3.5 cm and the configuration of the aortic arch is izabel t of pseudo-coarctation.. The diameter of the descending thoracic aorta is enlarged, being 4.3 cm pr oximally, 3.7 cm in the mid thoracic aortic arch and 3.8 cm distally. VISUALIZED UPPER ABDOMEN:No adrenal masses. Calcified granuloma in the nonenlarged spleen. OSSEOUS: No significant osseous lesions.No fractures.. IMPRESSION: 1. Extensive bilateral pulmonary fibrosis again noted although appears slightly better than on the pr ior study of 12/11/2021. No new confluent infiltrates nor pleural effusions. 2. No new intrathoracic adenopathy. 3. Cardiomegaly and dilated thoracic aorta again noted with ascending thoracic aorta with diameter 4. 9 cm and other enlarged measurements of the thoracic aorta as described above. RADIATION DOSE DELIVERED: 644.37mGy.cm Total DLP DATA REPOSITORY: All CT scans at this facility are submitted to the National Radiology Data Registry (NRDR) Dose Index Registry (DIR) with the [employer] (ACR). RADIATION OPTIMIZATION: All CT scans at this facility use at least one of these dose optimization te chniques: automated exposure control; mA and/or kV adjustment per patient size (includes targeted exa ms where dose is matched to clinical indication); or iterative reconstruction.
== END ==
PROVIDERS: Visit Provider Student in an Organized Health Care Education/Training Program
DX: J84.112 Idiopathic pulmonary fibrosis (principal); I51.7 Cardiomegaly
CPT/HCPCS: 71250

== ENCOUNTER 2022-07-16 18:29 | Inpatient (IN) | payer MEDICARE, SELFPAY ==
--- NOTE | 2022-07-16 18:30 | RT.EKG_ITS ---
APPROVED REPORT Exam: Resting ECG Reason for Exam: DIZZY Patient Location: E HR:72 bpm ECG Measurements Heart Rate [address] 153 P 22 QRSd 120 QRS -43 QT 394 T 100 QTc 431 Conclusion Sinus rhythm...normal P axis, V-rate 60- 99 Left anterior fascicular block...axis(240,-40), init forces inf LVH with secondary repolarization abnormality...multi-LVH criteria, abnrm ST-T
[2022-07-16 18:43] VITALS: BP 98/52; PULSE 73; RESP 18; TEMP 37; O2SAT 93
[2022-07-16 19:30] LABS: Abs Immature Grans 0.13 10^3/uL (0.0-0.06); Absolute Basophil Count 0.05 10^3/uL (0.0-0.2); Absolute Eosinophil Count 0.29 10^3/uL (0.0-0.7); Absolute Lymphocyte Count 1.92 10^3/uL (1.2-3.4); Basophils % 0.4; Eosinophils % 2.3; HGB 13.7 g/dL (13.5-17.5); Lymphocytes % 15.1; MCH 35.9 pg (27.0-33.0); MCHC 33.4 % (32.0-36.0); MCV 107 fL (80-95); MPV 10.4 fL (8.0-11.0); Monocytes % 6.8; Neutrophils % 74.4; Platelet Count 221 10^3/uL (130-400); RBC 3.82 10^6/uL (4.36-5.78); RDW 12.2 % (11.8-14.1); WBC 12.73 10^3/uL (4.4-10.8)
[2022-07-16 19:31] LABS: Absolute Monocyte Count 0.87 10^3/uL (0.1-0.8); Absolute Neutrophil Count 9.47 10^3/uL (1.2-6.7)
[2022-07-16 19:48] LABS: ALT 19 U/L (16-63); AST 21 U/L (15-37); Albumin 3.7 g/dL (3.4-5.0); Alkaline Phosphatase 57 U/L (46-116); Anion Gap 12.8 mmol/L (3-11); BUN 47 mg/dL (7-18); Bilirubin, Total 0.9 mg/dL (0.2-1.0); CO2 24.2 mmol/L (21.0-32.0); CREATININE 3.5 mg/dL (0.70-1.30); Calcium 8.9 mg/dL (8.5-10.1); Chloride 102 mmol/L (98-107); Estimated GFR 16.82 (mL/min/1.73m2); Glucose 96 mg/dL (74-106); Magnesium 1.7 mg/dL (1.8-2.4); Potassium 3.6 mmol/L (3.5-5.1); Sodium 139 mmol/L (136-145); Total Protein 6.8 g/dL (6.4-8.2); Troponin I < 50 ng/L (<or=60)
[2022-07-16 19:53] LABS: Diff Comment Agrees w/ Instrument
[2022-07-16 19:54] LABS: Macrocytosis 1+
--- NOTE | 2022-07-16 20:00 | DI.CT_ITS ---
Exam(s) CT HEAD CERVICAL SPINE WO EXAM: CT HEAD CERVICAL SPINE WO CLINICAL HISTORY: Fall with head injury, left neck pain. TECHNIQUE: Imaging Protocol: Axial computed tomography images with coronal and sagittal reformatted images were created and reviewed COMPARISON: CT CT SINUS W from 11/02/2021 FINDINGS: CT Head: Ventricles and Extra axial spaces: Normal in size and morphology for the patient's age. Hemorrhage: None. Cerebral parenchyma: There are areas of decreased attenuation in the white matter consistent with sma ll vessel ischemic disease. No evidence of an acute territorial infarct is present. Midline shift: None. Brainstem/Cerebellum: Normal. Calvarium: Normal. Visualized Paranasal sinuses/Mastoids: Clear. Soft Tissues: Unremarkable. CT Cervical Spine: Bones: No acute fracture or subluxation. There is cervical spondylosis. Soft Tissues: Unremarkable. Lung Apices: Apical scarring is present. IMPRESSION: 1. No acute intracranial process. 2. No acute fracture or subluxation in the cervical spine. RADIATION DOSE DELIVERED: 1,197.45mGy.cm Total DLP DATA REPOSITORY: All CT scans at this facility are submitted to the National Radiology Data Registry (NRDR) Dose Index Registry (DIR) with the [employer] (ACR). RADIATION OPTIMIZATION: All CT scans at this facility use at least one of these dose optimization te chniques: automated exposure control; mA and/or kV adjustment per patient size (includes targeted exa ms where dose is matched to clinical indication); or iterative reconstruction.
--- NOTE | 2022-07-16 20:57 | DI.VRAD_ITS ---
PROCEDURE INFORMATION: Exam: CT Head Without Contrast Exam date and time: 07/16/2022 8:40 PM Age: 81 years old Clinical indication: Injury or trauma; Blunt trauma (contusions or hematomas); Without loss of consciousness; Injury date: 07/14/22; Injury details: Fall hitting left side of head TECHNIQUE: Imaging protocol: Computed tomography of the head without contrast. Radiation optimization: All CT scans at this facility use at least one of these dose optimization techniques: automated exposure control; mA and/or kV adjustment per patient size (includes targeted exams where dose is matched to clinical indication); or iterative reconstruction. COMPARISON: CT HEAD WO 10/26/2021 5:11 PM FINDINGS: Brain:Moderate volume loss No hemorrhage.Mild white matter disease. No mass effect. Cerebral ventricles: No ventriculomegaly. Paranasal sinuses: Visualized sinuses are unremarkable. No fluid levels. Mastoid air cells: Visualized mastoid air cells are well aerated. Bones/joints: Unremarkable. No acute fracture. Soft tissues: Unremarkable. IMPRESSION: No acute intracranial abnormality. PROCEDURE INFORMATION: Exam: CT Cervical Spine Without Contrast Exam date and time: 07/16/2022 8:40 PM Age: 81 years old Clinical indication: Injury or trauma; Blunt trauma (contusions or hematomas); Without loss of consciousness; Injury date: 07/14/22; Injury details: Fall hitting left side of head TECHNIQUE: Imaging protocol: Computed tomography of the cervical spine without contrast. Radiation optimization: All CT scans at this facility use at least one of these dose optimization techniques: automated exposure control; mA and/or kV adjustment per patient size (includes targeted exams where dose is matched to clinical indication); or iterative reconstruction. COMPARISON: CT SINUS W 11/02/2021 10:07 AM FINDINGS: Bones/joints: No acute fracture. Loss of cervical lordosis is presumably on a degenerative basis.No significant disc protrusion. No severe spinal canal stenosis. Multilevel foraminal stenosis Lungs: Mild apical scarring Soft tissues: Unremarkable. IMPRESSION: No acute findings. Dictated and Authenticated by: Brian Barreto MD. Ordering:ELY Liriano MD
[2022-07-16] MEDS: Normal Saline 1,000 ML 150 ML IV (21:11)
--- NOTE | 2022-07-16 21:56 | ED.GENADUL_ITS ---
Discharge Plan Disposition Patient Disposition: [facility] INPATIENT Condition: Stable Discharge Details Clinical Impression: Acute dehydration, Acute kidney injury superimposed on CKD, Orthostatic hypotension Admit Date/Time: 07/16/22 22:04 Admit Provider: Mac Barkley Attending Provider: Mac Barkley Primary Care Provider: Ana Wilkes ED Provider: Heri Bautista Discharge Data Discharge Date/Time-TO BE ENTERED AT DEPARTURE: 07/16/22 23:13 Medical Decision Making Patient presenting to the emergency department for chief complaint of dizziness for the last week. Patient also states he is having some headache and neck pain. Patient states that he mainly gets dizzy when he stands up and has had general malaise also during this time. He did fall on Friday hitting his head. Patient does have ecchymosis and bruising to the left eyebrow. Exam is otherwise unremarkable without specific findings. Patient does have chronic kidney disease, polymyalgia rheumatica, pulmonary fibrosis, pulmonary embolism, hypothyroidism, Parkinson's. concern for hypotension and concerning head injury due to patient on blood thinners and falling and hitting head. Patient does state that he lives alone but does have some family assistance when needed. We will plan on checking labs, giving small fluid bolus pending results. We will also perform CT imaging of the head due to obvious findings of head injury Review of labs showed slightly elevated WBC and anemia otherwise unremarkable, elevation of BUN and creatinine with a decreased GFR from baseline, urine negative for any obvious findings of infection. CT imaging with no worrisome acute findings. Did attempt to ambulate patient and performed orthostatic vital signs which patient did have significant tilt of vital signs. And concern for dehydration leading to patient's weakness along with acute worsening of renal dysfunction again secondary to dehydration. Patient is agreeable to admission and contacted hospitalist for discussion of admission which was agreed upon. Lab Data Lab results reviewed: Yes I reviewed the patient's lab results. HPI General Mode of arrival: EMS . Date/Time Provider Initiated Documentation: 07/16/22 18:52 . Limitations to Documentation: no limitations . Information obtained by: patient and RN notes reviewed . History of Present Illness 81 year old M presents to the emergency department with the chief complaint of Dizziness, weakness, fall, described as moderate, with intensity rated at 6. Quality is described as aching, and is localized to the neck. Patient reports no radiation. Patient started experiencing this week(s) and it has been constant. No relieving factors improve symptom(s), No exacerbating factors reported . Patient did receive the following treatments prior to arrival, none Related Data Home Medications Medication Instructions Recorded Confirmed levothyroxine 75 mcg tablet 75 mcg PO DAILY 12/03/16 07/16/22 ropinirole 2 mg tablet 2 mg PO HS 12/03/16 07/16/22 nitroglycerin 0.4 mg sublingual 0.4 mg sublingual Q5-15M PRN 07/30/19 07/16/22 tablet (Nitrostat) finasteride 5 mg tablet 5 mg PO DAILY 08/27/21 07/16/22 sertraline 25 mg tablet 25 mg PO DAILY 08/27/21 07/16/22 montelukast 10 mg tablet 10 mg PO DAILY 10/24/21 07/16/22 tamsulosin 0.4 mg capsule 0.8 mg PO DAILY 10/24/21 07/16/22 apixaban 5 mg tablet (Eliquis) 5 mg PO BID #0 tabs 11/20/21 07/16/22 cetirizine 10 mg tablet 5 mg PO DAILY #0 tabs 11/20/21 07/16/22 L. acidophilus,casei,rhamnosus 50 1 cap PO DAILY 12/12/21 07/16/22 billion cell capsule,delayed release (Bio-K plus) acetaminophen 500 mg tablet 1,000 mg PO Q4H PRN 12/12/21 07/16/22 (Tylenol Extra Strength) albuterol sulfate 90 mcg/actuation 2 puff inhalation Q6H PRN 12/12/21 07/16/22 aerosol inhaler (ProAir HFA) nintedanib 150 mg capsule (Ofev) 150 mg PO Q12H #60 caps 12/12/21 07/16/22 potassium chloride 20 mEq 20 meq PO BID 12/12/21 07/16/22 tablet,extended release(part/cryst) (Klor-Con M) vitamin B complex 1 tab PO DAILY 12/12/21 07/16/22 Oxygen #1 ea 01/01/22 06/18/22 furosemide 40 mg tablet (Lasix) 60 mg PO DAILY 01/03/22 07/16/22 prednisone 5 mg tablet 7.5 mg PO DAILY #30 tabs 07/19/22 Previous Rx's Medication Instructions Recorded apixaban 5 mg tablet (Eliquis) 5 mg PO BID #0 tabs 11/20/21 cetirizine 10 mg tablet 5 mg PO DAILY #0 tabs 11/20/21 nintedanib 150 mg capsule (Ofev) 150 mg PO Q12H #60 caps 12/12/21 Oxygen #1 ea 01/01/22 prednisone 5 mg tablet 7.5 mg PO DAILY #30 tabs 07/19/22 Allergies Allergy/AdvReac Type Severity Reaction Status Date / Time Sulfa (Sulfonamide AdvReac Intermediate Its been Verified 07/16/22 22:45 Antibiotics) along time cat dander AdvReac Mild Verified 07/16/22 22:45 penicillin V AdvReac Mild nausea Verified 07/16/22 22:45 salicylates AdvReac Mild up set Verified 07/16/22 22:45 stomach voriconazole AdvReac Mild Visual Verified 07/16/22 22:45 Disturbances General Stated Complaint: Dizzy/Sync BRYCE: 3 Review of Systems Constitutional Constitutional: Denies chills, Denies fever(s), Reports frequent falls, Reports headache(s), Reports lethargy and Reports malaise Eyes Eyes: Denies change in vision ENT Ears, Nose, Mouth, and Throat: Denies otalgia, Denies facial pain, Reports headache(s) and Denies epistaxis Cardiovascular Cardiovascular: Denies chest pain, Denies syncope and Denies dyspnea Respiratory Respiratory: Denies cough and Denies dyspnea Neurologic Neurologic: Denies syncope, Reports frequent falls and Reports headache(s) PFSH All Active Problems (Updated 07/17/22 @ 00:33 by Mac Barkley) Neuropathy (Acute) Acute dehydration (Acute) Orthostatic hypotension (Acute) Idiopathic pulmonary fibrosis (Acute) Pulmonary hypertension (Acute) Palliative care patient (Acute) PMR (polymyalgia rheumatica) (Acute) Fungal pneumonia (Acute) Acute respiratory failure with hypoxia (Acute) Palliative care patient (Acute) Acute kidney injury superimposed on CKD (Acute) DNR (do not resuscitate) (Acute) Advanced care planning/counseling discussion (Acute) History of pulmonary embolism (Acute) Sleep apnea (Chronic) PAD (peripheral artery disease) (Chronic) Medical History Acute kidney injury superimposed on chronic kidney disease Bilateral pneumonia BPH (benign prostatic hyperplasia) Chronic ethmoidal sinusitis Chronic frontal sinusitis Chronic kidney disease Deviated nasal septum Dilated aortic root Discharge planning issues DVT prophylaxis E coli bacteremia Fractured rib mid Sept 2018 Hypothyroidism Kidney stone Lyme disease Nasal septal spur Nasal turbinate hypertrophy Palliative care encounter Parkinsons pt. states he does not have Pneumonia Polymyalgia rheumatica pt. reports he has this not parkinsons Pulmonary fat embolism Pyelonephritis due to Escherichia coli Surgical History Hx of colonoscopy Hx of inguinal hernia surgery Hx of total hip arthroplasty right Social History (Updated 07/17/22 @ 00:20 by Mac Barkley) Smoking/Tobacco Use Status: Former Tobacco Use Quit Date: 09/08/81 Smoking risk assessment performed?: Yes Alcohol Intake: current Alcohol Intake frequency: 0-2 drinks per day Alcohol type: beer and hard liquor Drug use: Never Substance use type: does not use Do you feel safe at home: Yes Do you feel safe in your relationship?: Yes Additional Social history: Abby alfarotbor/friend [phone] 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 Sister is in area. Exam Const General: cooperative, no acute distress and frail appearing Orientation: alert, awake and oriented x3 HENMT Head: no Scales's sign, hematoma left frontal, no palpable skull fracture and no raccoon eyes Ears: hearing grossly normal bilaterally and external ears normal General nose exam: external nose normal Mouth: moist mucous membranes abnormal (dry) Eyes General: appearance normal, both eyes and all related structures Neck Neck: full ROM, no meningeal signs and tender (Left sternoclavicular muscle) Resp Effort & Inspection: normal respiratory effort, able to speak in complete sentences and no respiratory distress Auscultation: clear to auscultation bilaterally Cardio Rate: regular rate Rhythm: regular rhythm Heart Sounds: S1 normal and S2 normal Back/Spine/Pelvis Cervical Spine: cervical ROM normal, cervical muscular tenderness, pain with cervical ROM and No cervical spinal tenderness Skin General skin exam: no rashes or lesions noted Neuro General: patient alert, patient awake, patient oriented x3, moves all extremities and no focal motor deficits Motor: other (Generalized weakness ) Sensory Exam: no sensory deficits noted Course Vital Signs Vital signs: Vital Signs Temperature 37 C 07/16/22 18:43 Pulse 73 07/16/22 18:43 Respiratory Rate 18 11/08/22 18:43 Blood Pressure 98/52 L 07/16/22 18:43 Pulse Oximetry 93 07/16/22 18:43 Temperature 37 C 07/16/22 18:43 Temperature Source Tympanic 07/16/22 18:43 Pulse 73 07/16/22 18:43 Respiratory Rate 18 07/16/22 18:43 Respiratory Effort 07/16/22 18:47 Respiratory Depth Normal 07/16/22 18:47 Respiratory Pattern Normal 07/16/22 18:47 Blood Pressure 98/52 L 07/16/22 18:43 Blood Pressure Position Supine 07/16/22 18:43 Pulse Oximetry 93 07/16/22 18:43 Oxygen Delivery Method Nasal Cannula 07/16/22 18:43 Oxygen Flow Rate 3 07/16/22 18:43 Pain Level 6 07/16/22 18:43 Comment sitting 91/55 hr 78 07/16/22 21:53 Lab/Test Results Lab/Test Results: Laboratory Tests Range/Units 07/16/22 07/16/22 19:15 19:15 WBC (4.4-10.8) 10^3/uL 12.73 H RBC (4.36-5.78) 10^6/uL 3.82 L Hgb (13.5-17.5) g/dL 13.7 Hct (40.0-50.0) % 41.0 MCV (80-95) fL 107 H MCH (27.0-33.0) pg 35.9 H MCHC (32.0-36.0) % 33.4 RDW (11.8-14.1) % 12.2 Plt Count (130-400) 10^3/uL 221 MPV (8.0-11.0) fL 10.4 Immature Gran % 1.0 Neutrophils % 74.4 Lymphocytes % 15.1 Monocytes % 6.8 Eosinophils % 2.3 Basophils % 0.4 Nucleated RBC % (0.0-0.3) % 0.0 Absolute Neutrophils (1.2-6.7) 10^3/uL 9.47 H Absolute Lymphocytes (1.2-3.4) 10^3/uL 1.92 Absolute Monocytes (0.1-0.8) 10^3/uL 0.87 H Absolute Eosinophils (0.0-0.7) 10^3/uL 0.29 Absolute Basophils (0.0-0.2) 10^3/uL 0.05 RBC Morphology See Below Macrocytosis 1+ Sodium (136-145) mmol/L 139 Potassium (3.5-5.1) mmol/L 3.6 Chloride (98-107) mmol/L 102 Carbon Dioxide (21.0-32.0) mmol/L 24.2 Anion Gap (3-11) mmol/L 12.8 H BUN (7-18) mg/dL 47 H Creatinine (0.70-1.30) mg/dL 3.5 H Est GFR (CKD-EPI 2020) (mL/min/1.73m2) 16.82 Glucose (74-106) mg/dL 96 Calcium (8.5-10.1) mg/dL 8.9 Magnesium (1.8-2.4) mg/dL 1.7 L Total Bilirubin (0.2-1.0) mg/dL 0.9 AST (15-37) U/L 21 ALT (16-63) U/L 19 Alkaline Phosphatase (46-116) U/L 57 Troponin I (<or=60) ng/L < 50 Total Protein (6.4-8.2) g/dL 6.8 Albumin (3.4-5.0) g/dL 3.7
[2022-07-16 22:32] LABS: Source Nasal/Nares
[2022-07-16 23:05] LABS: COVID-19 PCR Negative (Negative)
[2022-07-16 23:08] LABS: Source Nasal/Nares
[2022-07-16 23:15] VITALS: BP 124/74; PULSE 78; RESP 22; TEMP 36.4; O2SAT 100
[2022-07-16 23:32] VITALS: BP 124/74; PULSE 78; RESP 22; TEMP 36.4; O2SAT 96
[2022-07-17] VITALS (10 sets, daily range): BP systolic 93–138; BP diastolic 54–77; PULSE 60–84; RESP 18–20; TEMP 35.7–36.8; O2SAT 97–100
[2022-07-17 00:06] LABS: COVID-19 PCR Negative (Negative)
--- NOTE | 2022-07-17 00:07 | HPE_ITS ---
Date of service: 07/16/22 Time of Service: 23:34 Assessment and Plan Assessment and plan (1) Orthostatic hypotension: Status: Acute Assessment and plan: Patient was clearly orthostatic upon presentation, and blood pressure does seem to have responded to fluids. Reviewing his records, he is at risk of adrenal insufficiency. Will treat with hydrocortisone for now, get morning cortisol. However his BMP does not suggest michael insufficiency. He was also on midodrine, so we may need to consider restarting this. I could not find why it was started intially, but clearly he was having orthostasis pr eviously. (2) Idiopathic pulmonary fibrosis: Status: Acute Assessment and plan: [facility] from [facility] [place]. Rodrigues reviewed. He has been maintiained on OFEV. Will consult Dr. Rodrigues, though it does not appear his pulmonary disease is flaring right now. (3) PMR (polymyalgia rheumatica): Status: Acute Assessment and plan: As per HPI patient had recent steroid escalation to treat PMR based on neck pain and elevated inflammatory markers. His neck pain continues. Given recent h and/feet numbness as well as gait instability and urinary retention I am concerned about myelopathy. However this is no signs of cord impingement on CT. Could consider MRI to better assess the spinal cord. For now treating with IV steroid, he will need slow prednisone taper upon discharge. (4) Neuropathy: Status: Acute Assessment and plan: As above this symptom was very prominant last month, now improved. I still think there is a concern for cervical myleopathy, though improved from last month. (5) Acute kidney injury superimposed on CKD: Status: Acute Assessment and plan: Bladder scan not c/w retention. He does seem to be responding to fluids in terms of BP. Will get urine urea/cr to assess etiology (he is on furosemide chronically). Holding furosemide. (6) History of pulmonary embolism: Status: Acute Assessment and plan: Continue apixaban. no does adjustment for this indication despite low GFR (7) Hypothyroidism: Assessment and plan: continue regular lT4. TSH was done 06/26, slightly high, but not acute change for now. Qualifiers: Hypothyroidism type: unspecified Qualified Code(s): E03.9 - Hypothyroidism, unspecified (8) BPH (benign prostatic hyperplasia): Assessment and plan: continue finasteride, tamsulosin, though cut alpha dali dose given orthostasis, monitor for retention Qualifiers: Lower urinary tract symptom presence: symptoms present Lower urinary tract symptom detail: incomplete bladder emptying Qualified Code(s): N40.1 - Benign prostatic hyperplasia with lower urinary tract symptoms; R39.14 - Feeling of incomplete bladder emptying (9) Discharge planning issues: Assessment and plan: He is stable on medical floor, telemetry given dizziness on presentation. He is DNR/DNI. He as followed with palliative in the past, consider reconsult. History of Present Illness History of Present Illness Chief Complaint: weakness Narrative: 81 yo M with complex history including idiopathic pulmonary fibrosis, polymyalgia rheumatica on chronic steroids, pulmonary embolism on apixaban, and chronic renal insufficiency who presented after progressive orthostatic dizziness and falls over the week prior to admission. Onset insidious. Feels l ightheaded when standing. On friday felt like he was going to pass out after standing up from the toilet and fell and hit the left side of his head, denies LOC. He has felt general unwell and weak during this time. He also has ongoing pain in his neck to shoulders and headache. His appetite hasn't been great. Has been slowly loosing weight 20lbs in the past year but not dramatically in the past weeks. Upon further review of the records, he has complained of neuropathic pain in legs going back to 05/01 PCP visit. Seen 06/26 with worse shadi leg pain and neck pain and loss of sensation in hands and feet. Labs at that point included CBC/CMP/Lyme/tick panel which were not revealing but ESR and CRP were high at 54 and 20. Given neck/shoulder pain and h/o PMR his prednisone was bumped up from 5mg to 20mg. Patient says that since then the numbness and pain in legs and numbness in hands has gotten better. Also of note he was previously taking midodrine. There is a nursing note from 05/28 that states he had tapered off this. His blood pressure at the 06/26 visit was normal. Review of Systems Constitutional Constitutional: Reports as per HPI, Denies body ache(s), Denies chills, Reports fatigue, Denies fever(s), Reports lethargy and Reports malaise Eyes Eyes: Reports change in vision (slow worsening, nothing acute), Denies diplopia, Denies irritation and Denies eye pain ENT Ears, Nose, Mouth, and Throat: Denies change in voice, Denies dysphagia, Denies vertigo, Denies nasal congestion, Denies nasal discharge, Reports disequilibrium and Denies sore throat Cardiovascular Cardiovascular: Denies chest pain, Reports leg edema (this is better), Reports lightheadedness, Denies palpitations, Reports dyspnea (not worse this week) and Denies orthopnea Respiratory Respiratory: Denies hemoptysis, Denies excessive phlegm production, Reports dyspnea (not worse this week) and Denies wheezing Gastrointestinal Gastrointestinal: Denies abdominal pain, Denies melena, Denies hematochezia, Denies dysphagia, Denies heartburn, Denies diarrhea, Denies nausea and Denies vomiting Genitourinary Genitourinary: Denies hematuria, Reports difficulty urinating (chronic hesitancy, some incontinence) and Denies dysuria Musculoskeletal Comments: no new joint pain Integumentary/Breasts Skin/Breast: Denies rash and Denies skin ulcer Neurologic Neurologic: Denies abnormal speech, Denies confusion, Denies vertigo, Denies memory loss, Denies convulsions, Denies sensory deficit and Reports disequilibrium Psychiatric Psychiatric: Denies confusion, Denies memory loss and Denies mood swings Endocrine Endocrine: Reports fatigue and Denies palpitations Hematologic/Lymphatic Hematologic/Lymphatic: Denies easy bleeding Allergic/Immunologic Allergic/Immunologic: Denies wheezing PFSH All Active Problems (Updated 07/17/22 @ 00:33 by Mac Barkley) Neuropathy (Acute) Acute dehydration (Acute) Orthostatic hypotension (Acute) Idiopathic pulmonary fibrosis (Acute) Pulmonary hypertension (Acute) Palliative care patient (Acute) PMR (polymyalgia rheumatica) (Acute) Fungal pneumonia (Acute) Acute respiratory failure with hypoxia (Acute) Palliative care patient (Acute) Acute kidney injury superimposed on CKD (Acute) DNR (do not resuscitate) (Acute) Advanced care planning/counseling discussion (Acute) History of pulmonary embolism (Acute) Sleep apnea (Chronic) PAD (peripheral artery disease) (Chronic) Medical History Acute kidney injury superimposed on chronic kidney disease Bilateral pneumonia BPH (benign prostatic hyperplasia) Chronic ethmoidal sinusitis Chronic frontal sinusitis Chronic kidney disease Deviated nasal septum Dilated aortic root Discharge planning issues DVT prophylaxis E coli bacteremia Fractured rib mid Sept 2019 Hypothyroidism Kidney stone Lyme disease Nasal septal spur Nasal turbinate hypertrophy Palliative care encounter Parkinsons pt. states he does not have Pneumonia Polymyalgia rheumatica pt. reports he has this not parkinsons Pulmonary fat embolism Pyelonephritis due to Escherichia coli Surgical History Hx of colonoscopy Hx of inguinal hernia surgery Hx of total hip arthroplasty right Social History (Updated 07/17/22 @ 00:20 by Mac Barkley) Smoking/Tobacco Use Status: Former Tobacco Use Quit Date: 09/08/81 Smoking risk assessment performed?: Yes Alcohol Intake: current Alcohol Intake frequency: 0-2 drinks per day Alcohol type: beer and hard liquor Drug use: Never Substance use type: does not use Do you feel safe at home: Yes Do you feel safe in your relationship?: Yes Additional Social history: Abby alfarotbor/friend [phone] 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 Sister is in area. Meds Allergies and Home Medications Allergies Allergy/AdvReac Type Severity Reaction Status Date / Time Sulfa (Sulfonamide AdvReac Intermediate Its been Verified 07/16/22 22:45 Antibiotics) along time cat dander AdvReac Mild Verified 07/16/22 22:45 penicillin V AdvReac Mild nausea Verified 07/16/22 22:45 salicylates AdvReac Mild up set Verified 07/16/22 22:45 stomach voriconazole AdvReac Mild Visual Verified 07/16/22 22:45 Disturbances Home Medications Medication Instructions Recorded Confirmed Type levothyroxine 75 mcg tablet 75 mcg PO DAILY 12/03/16 07/16/22 History ropinirole 2 mg tablet 2 mg PO HS 12/03/16 07/16/22 History nitroglycerin 0.4 mg sublingual 0.4 mg sublingual Q5-15M PRN 07/30/19 07/16/22 History tablet (Nitrostat) finasteride 5 mg tablet 5 mg PO DAILY 08/27/21 07/16/22 History sertraline 25 mg tablet 25 mg PO DAILY 08/27/21 07/16/22 History montelukast 10 mg tablet 10 mg PO DAILY 10/24/21 07/16/22 History tamsulosin 0.4 mg capsule 0.8 mg PO DAILY 10/24/21 07/16/22 History apixaban 5 mg tablet (Eliquis) 5 mg PO BID #0 tabs 11/20/21 07/16/22 Rx cetirizine 10 mg tablet 5 mg PO DAILY #0 tabs 11/20/21 07/16/22 Rx L. acidophilus,casei,rhamnosus 50 1 cap PO DAILY 12/12/21 07/16/22 History billion cell capsule,delayed release (Bio-K plus) acetaminophen 500 mg tablet 1,000 mg PO Q4H PRN 12/12/21 07/16/22 History (Tylenol Extra Strength) albuterol sulfate 90 mcg/actuation 2 puff inhalation Q6H PRN 12/12/21 07/16/22 History aerosol inhaler (ProAir HFA) nintedanib 150 mg capsule (Ofev) 150 mg PO Q12H #60 caps 12/12/21 07/16/22 Rx potassium chloride 20 mEq 20 meq PO BID 12/12/21 07/16/22 History tablet,extended release(part/cryst) (Klor-Con M) vitamin B complex 1 tab PO DAILY 12/12/21 07/16/22 History Oxygen #1 ea 01/01/22 06/18/22 Rx furosemide 40 mg tablet (Lasix) 60 mg PO DAILY 01/03/22 07/16/22 History Exam Narrative Exam Narrative: GEN: Alert and oriented x 3, pleasant and cooperative, gives linear history though with some word finding difficulty.. No acute distress at rest. HEENT: Head not deformed, large purple bruise left forehead above brow. Conjunctiva clear, no icterus. PEERL, EOMI. no rhinorrhea. MMM, OP benign. Neck is supple with no masses or lymphadenopathy, trachea midline LUNGS: Shadi dry crackles sparing only the apex shadi, with normal effort, speaking in full sentences. CV: RRR with no murmurs, gallops, or rubs. ABD: +BS, soft, NT/ND EXT: no cyanosis, clubbing. Trace to 1+ shadi LE edema, legs not tender. MSK: No joint redness or swelling. He is tender with palpation over mid cervical spine, not tender into shoulders NEURO: CN 2-12 grossly intact. Normal movement of 4 extremities. Normal speech and coordination. sensation UE/LE intact to light touch. DTR 2+ achilles/patella. babinski equivocal. Did not walk patient due to orthostasis SKIN: No rashes, many bruises and superficial wounds on legs, arms. PSYCH: normal mood and affect Results Imaging CT scan - chest: report reviewed (From 07/02: IMPRESSION: 1. Extensive bilateral pulmonary fibrosis again noted although appears slightly better than on the prior study of 12/11/2021. No new confluent infiltrates nor pleural effusions. 2. No new intrathoracic adenopathy. 3. Cardiomegaly and dilated thoracic aorta again noted wi) EKG: report reviewed (Conclusion Sinus rhythm...normal P axis, V-rate 60- 99 Left anterior fascicular block...axis(240,-40), init forces inf LVH with secondary repolarization abnormality...multi-LVH criteria, abnrm ST-T (similar to 10/24/21)) Imaging Studies: CT head/neck w/o: IMPRESSION: No acute abnormality. Labs Result diagrams: 07/16/22 19:15 07/16/22 19:15 Labs: Laboratory Results - last 24 hr 07/16/22 07/16/22 07/16/22 19:15 19:15 22:10 WBC 12.73 H RBC 3.82 L Hgb 13.7 Hct 41.0 MCV 107 H MCH 35.9 H MCHC 33.4 RDW 12.2 Plt Count 221 MPV 10.4 Immature Gran % 1.0 Neutrophils % 74.4 Lymphocytes % 15.1 Monocytes % 6.8 Eosinophils % 2.3 Basophils % 0.4 Nucleated RBC % 0.0 Absolute Neutrophils 9.47 H Absolute Lymphocytes 1.92 Absolute Monocytes 0.87 H Absolute Eosinophils 0.29 Absolute Basophils 0.05 RBC Morphology See Below Macrocytosis 1+ Sodium 139 Potassium 3.6 Chloride 102 Carbon Dioxide 24.2 Anion Gap 12.8 H BUN 47 H Creatinine 3.5 H Est GFR (CKD-EPI 2020) 16.82 Glucose 96 Calcium 8.9 Magnesium 1.7 L Total Bilirubin 0.9 AST 21 ALT 19 Alkaline Phosphatase 57 Troponin I < 50 Total Protein 6.8 Albumin 3.7 COVID-19 Source Nasal/Nares SARS-CoV-2 (PCR) Negative 07/16/22 22:55 WBC RBC Hgb Hct MCV MCH MCHC RDW Plt Count MPV Immature Gran % Neutrophils % Lymphocytes % Monocytes % Eosinophils % Basophils % Nucleated RBC % Absolute Neutrophils Absolute Lymphocytes Absolute Monocytes Absolute Eosinophils Absolute Basophils RBC Morphology Macrocytosis Sodium Potassium Chloride Carbon Dioxide Anion Gap BUN Creatinine Est GFR (CKD-EPI 2020) Glucose Calcium Magnesium Total Bilirubin AST ALT Alkaline Phosphatase Troponin I Total Protein Albumin COVID-19 Source Nasal/Nares SARS-CoV-2 (PCR) Negative Last Vital Signs Temp 36.4 C L 07/16/22 23:32 Pulse 78 07/16/22 23:32 Resp 22 07/16/22 23:32 BP 124/74 07/16/22 23:32 Pulse Ox 96 07/16/22 23:32
[2022-07-17] MEDS: rOPINIRole 1 MG TAB 2 MG PO ×2 (00:48→22:44)
[2022-07-17] MEDS: Hydrocortisone SOD SUC. 100 MG VIAL 50 MG IVP (00:48)
[2022-07-17] MEDS: Levothyroxine 75 MCG TAB PO (06:00)
[2022-07-17 07:06] LABS: Absolute Basophil Count 0.02 10^3/uL (0.0-0.2); Absolute Eosinophil Count 0.08 10^3/uL (0.0-0.7); Absolute Lymphocyte Count 0.62 10^3/uL (1.2-3.4); Absolute Neutrophil Count 7.06 10^3/uL (1.2-6.7); Basophils % 0.2; HCT 36.2 % (40.0-50.0); HGB 11.7 g/dL (13.5-17.5); Immature Grans % 1.2; Lymphocytes % 7.6; MCHC 32.3 % (32.0-36.0); MCV 108 fL (80-95); MPV 10.2 fL (8.0-11.0); Monocytes % 3.7; Neutrophils % 86.3; Platelet Count 153 10^3/uL (130-400); RBC 3.34 10^6/uL (4.36-5.78); RDW 12.1 % (11.8-14.1); RDW-SD 48.8 fL; WBC 8.18 10^3/uL (4.4-10.8)
[2022-07-17 07:19] LABS: Anion Gap 6.7 mmol/L (3-11); BUN 49 mg/dL (7-18); CO2 29.3 mmol/L (21.0-32.0); CREATININE 3.1 mg/dL (0.70-1.30); Calcium 8.2 mg/dL (8.5-10.1); Chloride 105 mmol/L (98-107); Estimated GFR 19.45 (mL/min/1.73m2); Glucose 123 mg/dL (74-106); Magnesium 1.6 mg/dL (1.8-2.4); Potassium 4.1 mmol/L (3.5-5.1); Sodium 141 mmol/L (136-145)
[2022-07-17 07:20] LABS: Bilirubin Negative (Negative); Blood Moderate (Negative); Clarity Clear (Clear); Glucose Negative (Negative); Ketones Negative (Negative); Leukocyte Esterase Negative (Negative); Nitrite Negative (Negative); Urobilinogen 0.2 EU/dL (Up TO 0.2); pH 5.5 (5-8)
[2022-07-17 07:25] LABS: Creatinine,Urine 175.15 mg/dL
[2022-07-17 07:45] LABS: Bacteria Negative HPF (Negative); C & S Indicated? No; Casts Negative LPF (Negative); Crystals Negative HPF (Negative); Epithelial Cells Rare HPF (Negative); Mucus Negative (Negative); WBC Negative HPF (0-5)
[2022-07-17] MEDS: Tamsulosin 0.4 MG CAPCR PO (08:32)
[2022-07-17] MEDS: Sertraline 25 MG TAB PO (08:32)
[2022-07-17] MEDS: Apixaban 5 MG TAB PO ×2 (08:32→20:28)
[2022-07-17] MEDS: predniSONE 5 MG TAB 7.5 MG PO (08:32)
[2022-07-17] MEDS: Vitamins B Comp w/C TAB 1 TAB PO (08:32)
[2022-07-17] MEDS: Lactobacillus Acidophilus CAP 1 CAP PO (08:32)
[2022-07-17] MEDS: Montelukast 10 MG TAB PO (08:33)
[2022-07-17] MEDS: Cetirizine 10 MG TAB 5 MG PO (08:33)
[2022-07-17] MEDS: Finasteride 5 MG TAB PO (08:33)
--- NOTE | 2022-07-17 12:29 | PDOC.CMIN ---
- If Service Date Differs Date of service: 07/17/22 Time of Service: 12:29 Care Management Initial Assess REASON FOR HOSPITALIZATION:: dehydration, orthostatic hypotension PAST MEDICAL HISTORY/PAST SURGICAL HISTORY:: All Active Problems. Neuropathy (Acute). Acute dehydration (Acute). Orthostatic hypotension (Acute). Idiopathic pulmonary fibrosis (Acute). Pulmonary hypertension (Acute). Palliative care patient (Acute). PMR (polymyalgia rheumatica) (Acute). Fungal pneumonia (Acute). Acute respiratory failure with hypoxia (Acute). Palliative care patient (Acute). Acute kidney injury superimposed on CKD (Acute). DNR (do not resuscitate) (Acute). Advanced care planning/counseling discussion (Acute). History of pulmonary embolism (Acute). Sleep apnea (Chronic). PAD (peripheral artery disease) (Chronic). Medical History. Acute kidney injury superimposed on chronic kidney disease. Bilateral pneumonia. BPH (benign prostatic hyperplasia). Chronic ethmoidal sinusitis. Chronic frontal sinusitis. Chronic kidney disease. Deviated nasal septum. Dilated aortic root. Discharge planning issues. DVT prophylaxis. E coli bacteremia. Fractured rib. mid May 2019. Hypothyroidism. Kidney stone. Lyme disease. Nasal septal spur. Nasal turbinate hypertrophy. Palliative care encounter. Parkinsons. pt. states he does not have. Pneumonia. Polymyalgia rheumatica. pt. reports he has this not parkinsons. Pulmonary fat embolism. Pyelonephritis due to Escherichia coli. Surgical History. Hx of colonoscopy. Hx of inguinal hernia surgery. Hx of total hip arthroplasty. right PREVIOUS FUNCTIONAL STATUS/SOCIAL/FAMILY SUPPORTS:: Wilfrido Kumar) resides in [place] with his cat and dog. He reports having owned the home for more than forty years but only moved up to the home from [facility] after his divorce a few years ago. 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 His sister, Melvina, lives nearby and is supportive. He reports being independent with all ADLs at baseline and keeps busy maintaining his home. CURRENT FUNCTIONAL STATUS:: Jarrod was sitting up in his chair when CM met with him. CM inquired about a bruise on his forehead, and he stated that he fell in his house on Friday, but was able to get himself up off the ground. CM asked if he has [employer], which he stated that he does. He reported that he started feeling progressively worse after his fall, and called his PCP yesterday, who encouraged him to be seen at the ED. Per report, he is dehydrated. He is having Q4 orthostatics currently. PT has been consulted, and at the time of the visit with Al, he had not seen them yet. He stated that he has a risk control officer once a week through [facility] moderate needs, and his case loader operator's name is Ihsan. CM will continue to follow. ADVANCE DIRECTIVES:: DPOA on file, Javid Solorzano listed as agent. Palliative care consulted. Has patient been provided with info about the portal/API?: Yes Did the patient sign up for the portal?: No CODE STATUS:: DNR/DNI INSURANCE COVERAGE / FINANCIAL ISSUES:: MCR/ [employer] CURRENT HOME/COMMUNITY SERVICES/EQUIPMENT:: [facility] moderate needs PRIMARY CARE PHYSICIAN:: Ana Wilkes POTENTIAL DISCHARGE NEEDS:: Evaluations for further needs, follow up appointments. PATIENT/FAMILY EDUCATION NEEDS:: Review discharge instructions and limitations, discussion of self care needs including ask me three. ANTICIPATED BARRIERS TO DISCHARGE:: None identified at this time. TRANSPORTATION:: Via private vehicle by family vs RCT. PLAN:: Anticipate Al will return home via private vehicle when medically cleared. He will follow up with his PCP and discharge plan of care. CM will continue to follow.
[2022-07-17] MEDS: Acetaminophen 500 MG TAB 1000 MG PO (13:52)
[2022-07-17] MEDS: Normal Saline 1,000 ML 50 ML IV (14:25)
--- NOTE | 2022-07-17 16:39 | CHAPLAIN ---
Al was resting in bed looking at his iPad when I visited. I explained my role and introduced myself and Jarrod said he is fine. We had a brief conversation and then he received a phone call.
--- NOTE | 2022-07-17 16:40 | W.PM.PROGNOT ---
Date of Service Date of service: 07/17/22 Time of Service: 16:40 Assessment and Plan Assessment and plan (1) Orthostatic hypotension: Status: Acute Assessment and plan: Patient was clearly orthostatic upon presentation, and blood pressure does seem to have responded to fluids. Reviewing his records, he is at risk of adrenal insufficiency. Will treat with hydrocortisone for now, get morning cortisol. However his BMP does not suggest michael insufficiency. He was also on midodrine, so we may need to consider restarting this. (2) Idiopathic pulmonary fibrosis: Status: Acute Assessment and plan: Notes from [facility] [place] and Dr. Rodrigues reviewed. He has been maintiained on OFEV. Will consult Dr. Rodrigues, though it does not appear his pulmonary disease is flaring right now. (3) PMR (polymyalgia rheumatica): Status: Acute Assessment and plan: As per HPI patient had recent steroid escalation to treat PMR based on neck pain and elevated inflammatory markers. His neck pain continues. Given recent hand/feet numbness as well as gait instability and urinary retention I am concerned about myelopathy. However this is no signs of cord impingement on CT. Could consider MRI to better assess the spinal cord. For now treating with IV steroid, he will need slow prednisone taper upon discharge. (4) Neuropathy: Status: Acute Assessment and plan: As above this symptom was very prominant last month, now improved. I still think there is a concern for cervical myleopathy, though improved from last month. (5) Acute kidney injury superimposed on CKD: Status: Acute Assessment and plan: Bladder scan not c/w retention. He does seem to be responding to fluids in terms of BP. Will get urine urea/cr to assess etiology (he is on furosemide chronically). Holding furosemide. (6) History of pulmonary embolism: Status: Acute Assessment and plan: Continue apixaban. no does adjustment for this indication despite low GFR (7) Hypothyroidism: Assessment and plan: continue regular lT4. TSH was done 06/26, slightly high, but not acute change for now. Qualifiers: Hypothyroidism type: unspecified Qualified Code(s): E03.9 - Hypothyroidism, unspecified (8) BPH (benign prostatic hyperplasia): Assessment and plan: continue finasteride, tamsulosin, though cut alpha dali dose given orthostasis, monitor for retention Qualifiers: Lower urinary tract symptom presence: symptoms present Lower urinary tract symptom detail: incomplete bladder emptying Qualified Code(s): N40.1 - Benign prostatic hyperplasia with lower urinary tract symptoms; R39.14 - Feeling of incomplete bladder emptying (9) Discharge planning issues: Assessment and plan: He is DNR/DNI. He as followed with palliative in the past, consider reconsult. anticipate discharge to home, PT consulted for discharge planning issues discussed with DR Marie Subjective Subjective Patient reports: no new complaints, feels better, tolerating liquids well, tolerating a regular diet, voiding w/o difficulty and afebrile Exam Narrative Exam Narrative: Reclined in his recliner. Const General: cooperative, no acute distress and frail appearing Nutritional Appearance: average body habitus Orientation: alert, awake and oriented x3 HENMT Head: normal to inspection and atraumatic Ears: hearing grossly normal bilaterally Face and sinus: normal facial exam Mouth: oral mucosae normal Eyes General: appearance normal, both eyes and all related structures Eyelids: eyelids normal Neck Neck: normal visual inspection and full ROM Resp Effort & Inspection: normal respiratory effort and able to speak in complete sentences Auscultation: not clear to auscultation bilaterally Cardio Jugular venous pressure: no JVD Rate: regular rate Rhythm: regular rhythm GI Inspection: normal to inspection Palpation: soft and nontender Auscultation: normal bowel sounds Back/Spine/Pelvis Cervical Spine: normal cervical lordosis Skin General skin exam: no rashes or lesions noted and other (scattered ecchymosis) Neuro General: patient alert, patient awake, patient oriented x3 and moves all extremities Cognition: normal cognition Speech: speech normal Gait: normal gait Extrem General: normal to inspection, no pedal edema, no calf tenderness and edema Laterality: bilateral Psych Appearance: grossly normal Mental Status: mental status grossly normal Speech and Movement: speech and movement normal Mood: congruent mood Affect: normal affect and blunted Attitude: cooperative Thought Process: normal Thought Content: normal Insight: insight good Judgment: fair Objective Last Vital Signs Temp 36.6 C 07/17/22 15:30 Pulse 66 07/17/22 15:30 Resp 18 07/17/22 15:30 BP 118/67 07/17/22 15:30 Pulse Ox 100 07/17/22 15:30 Laboratory Results - last 24 hr 07/16/22 07/16/22 07/16/22 19:15 19:15 22:10 WBC 12.73 H RBC 3.82 L Hgb 13.7 Hct 41.0 MCV 107 H MCH 35.9 H MCHC 33.4 RDW 12.2 Plt Count 221 MPV 10.4 Immature Gran % 1.0 Neutrophils % 74.4 Lymphocytes % 15.1 Monocytes % 6.8 Eosinophils % 2.3 Basophils % 0.4 Nucleated RBC % 0.0 Absolute Neutrophils 9.47 H Absolute Lymphocytes 1.92 Absolute Monocytes 0.87 H Absolute Eosinophils 0.29 Absolute Basophils 0.05 RBC Morphology See Below Macrocytosis 1+ Sodium 139 Potassium 3.6 Chloride 102 Carbon Dioxide 24.2 Anion Gap 12.8 H BUN 47 H Creatinine 3.5 H Est GFR (CKD-EPI 2020) 16.82 Glucose 96 Calcium 8.9 Magnesium 1.7 L Total Bilirubin 0.9 AST 21 ALT 19 Alkaline Phosphatase 57 Troponin I < 50 Total Protein 6.8 Albumin 3.7 Urine Color Urine Clarity Urine pH Ur Specific [place] Urine Protein Urine Ketones Urine Blood Urine Nitrite Urine Bilirubin Urine Urobilinogen Ur Leukocyte Esterase Urine RBC Urine WBC Ur Epithelial Cells Urine Crystals Urine Bacteria Urine Casts Urine Mucus Ur Culture Indicated? Ur Random Creatinine Urine Glucose COVID-19 Source Nasal/Nares SARS-CoV-2 (PCR) Negative 07/16/22 07/17/22 07/17/22 22:55 06:25 06:25 WBC 8.18 RBC 3.34 L Hgb 11.7 L D Hct 36.2 L MCV 108 H MCH 35.0 H MCHC 32.3 RDW 12.1 Plt Count 153 MPV 10.2 Immature Gran % 1.2 Neutrophils % 86.3 Lymphocytes % 7.6 Monocytes % 3.7 Eosinophils % 1.0 Basophils % 0.2 Nucleated RBC % 0.0 Absolute Neutrophils 7.06 H Absolute Lymphocytes 0.62 L Absolute Monocytes 0.30 Absolute Eosinophils 0.08 Absolute Basophils 0.02 RBC Morphology Macrocytosis Sodium 141 Potassium 4.1 Chloride 105 Carbon Dioxide 29.3 Anion Gap 6.7 BUN 49 H Creatinine 3.1 H Est GFR (CKD-EPI 2020) 19.45 Glucose 123 H Calcium 8.2 L Magnesium 1.6 L Total Bilirubin AST ALT Alkaline Phosphatase Troponin I Total Protein Albumin Urine Color Urine Clarity Urine pH Ur Specific [place] Urine Protein Urine Ketones Urine Blood Urine Nitrite Urine Bilirubin Urine Urobilinogen Ur Leukocyte Esterase Urine RBC Urine WBC Ur Epithelial Cells Urine Crystals Urine Bacteria Urine Casts Urine Mucus Ur Culture Indicated? Ur Random Creatinine Urine Glucose COVID-19 Source Nasal/Nares SARS-CoV-2 (PCR) Negative 07/17/22 07/17/22 06:40 06:40 WBC RBC Hgb Hct MCV MCH MCHC RDW Plt Count MPV Immature Gran % Neutrophils % Lymphocytes % Monocytes % Eosinophils % Basophils % Nucleated RBC % Absolute Neutrophils Absolute Lymphocytes Absolute Monocytes Absolute Eosinophils Absolute Basophils RBC Morphology Macrocytosis Sodium Potassium Chloride Carbon Dioxide Anion Gap BUN Creatinine Est GFR (CKD-EPI 2020) Glucose Calcium Magnesium Total Bilirubin AST ALT Alkaline Phosphatase Troponin I Total Protein Albumin Urine Color Yellow Urine Clarity Clear Urine pH 5.5 Ur Specific [place] 1.020 Urine Protein Negative Urine Ketones Negative Urine Blood Moderate H Urine Nitrite Negative Urine Bilirubin Negative Urine Urobilinogen 0.2 Ur Leukocyte Esterase Negative Urine RBC 10-20 H Urine WBC Negative Ur Epithelial Cells Rare Urine Crystals Negative Urine Bacteria Negative Urine Casts Negative Urine Mucus Negative Ur Culture Indicated? No Ur Random Creatinine 175.15 Urine Glucose Negative COVID-19 Source SARS-CoV-2 (PCR)
[2022-07-17 17:39] LABS: Urea Nitrogen Random Urine 509 mg/dL (See Note)
[2022-07-18] VITALS (15 sets, daily range): BP systolic 91–145; BP diastolic 59–84; PULSE 55–90; RESP 17–19; TEMP 36.1–36.8; O2SAT 94–100
[2022-07-18] MEDS: Levothyroxine 75 MCG TAB PO (05:50)
--- NOTE | 2022-07-18 08:50 | RESPIRATORY ---
RT spoke with patient concerning history of Sleep Apnea, patient stated he used a PAP device for a bit but then gave up on it. Stated he felt he did not really need the device and stopped using it. Patient states he no idea who the DME is for his home Oxygen but uses it 31/03.
[2022-07-18] MEDS: Tamsulosin 0.4 MG CAPCR PO (08:52)
[2022-07-18] MEDS: Sertraline 25 MG TAB PO (08:52)
[2022-07-18] MEDS: Cetirizine 10 MG TAB 5 MG PO (08:52)
[2022-07-18] MEDS: Montelukast 10 MG TAB PO (08:52)
[2022-07-18] MEDS: Finasteride 5 MG TAB PO (08:52)
[2022-07-18] MEDS: Lactobacillus Acidophilus CAP 1 CAP PO (08:52)
[2022-07-18] MEDS: Vitamins B Comp w/C TAB 1 TAB PO (08:52)
[2022-07-18] MEDS: Apixaban 5 MG TAB PO ×2 (08:52→20:18)
[2022-07-18] MEDS: predniSONE 5 MG TAB 7.5 MG PO (08:53)
--- NOTE | 2022-07-18 10:32 | IN_ITS ---
Date of service: 07/18/22 PT Notes Visit Reasons: Dehydration,Orthostatic Hypotension Physical Therapy Inpatient Initial Evaluation Date: 07/18/2022 Referring Doctor: Jil Marcano NP PT Orders: PT CONSULT: Extended stay weakness.? Limited ability Precautions: Fall. Standard. Activity as tolerated. Patient Profile/Admitting Diagnosis: Jarrod is a 81-year-old male who who presented to the ED with chief complaints of dizziness upon standing up, headache, and neck pain with a fall last Friday that caused him to hit his head. Patient is diagnosed with orthostatic hypotension. Idiopathic pulmonary fibrosis, polymyalgia rheumatica, neuropathy, acute on chronic kidney disease, history of pulmonary embolism and is on apixaban, hypothyroidism, and benign prostatic hyperplasia. He is DNR/DNI. PMHX: All Active Problems?(Updated 07/17/22 @ 00:33 by Mac Barkley) Neuropathy (Acute) Acute dehydration (Acute) Orthostatic hypotension (Acute) Idiopathic pulmonary fibrosis (Acute) Pulmonary hypertension (Acute) Palliative care patient (Acute) PMR (polymyalgia rheumatica) (Acute) Fungal pneumonia (Acute) Acute respiratory failure with hypoxia (Acute) Palliative care patient (Acute) Acute kidney injury superimposed on CKD (Acute) DNR (do not resuscitate) (Acute) Advanced care planning/counseling discussion (Acute) History of pulmonary embolism (Acute) Sleep apnea (Chronic) PAD (peripheral artery disease) (Chronic) Medical History? Acute kidney injury superimposed on chronic kidney disease Bilateral pneumonia BPH (benign prostatic hyperplasia) Chronic ethmoidal sinusitis Chronic frontal sinusitis Chronic kidney disease Deviated nasal septum Dilated aortic root Discharge planning issues DVT prophylaxis E coli bacteremia Fractured rib mid Sept 2018 Hypothyroidism Kidney stone Lyme disease Nasal septal spur Nasal turbinate hypertrophy Palliative care encounter Parkinsons pt. states he does not have Pneumonia Polymyalgia rheumatica pt. reports he has this not parkinsons Pulmonary fat embolism Pyelonephritis due to Escherichia coli Surgical History? Hx of colonoscopy Hx of inguinal hernia surgery Hx of total hip arthroplasty right Hx of total hip arthroplasty right Social History/Home Situation: Lives alone in a private home with 3 steps to enter with rails on both sides.? Gets meals on wheels 3x/week. has a cleaning lady who comes in one time a week. States that he has his firewood stored some 25 feet outside of his home and that a neighbor is able to help him bring firewood as needed.? Still drives.? I ndependent with all aspects of ADLs prior to admission. Equipment Owned/DME: FWW, SPC Subjective:? Agreeable to consult. States that the dizziness has started to diminish. Head and neck pain down to about 3/10 now. Agreeable to having HH PT. Fell once in the past year. Objective: General Observation: Seated on chair. IV in R UE. Contusion seen on L frontal area. Mental Status: Alert and oriented as to person, place, time, and purpose. Able to pay attention, focus, and respond appropriately. Pain: 3/10 headache and neck pain ROM: Right Upper Extremity: ? Shoulder Flexion WFL. Shoulder abduction WFL. Elbow flexion WFL. Wrist flexion WFL. Functional opening and closing of hand WFL. Left Upper Extremity:? Shoulder Flexion WFL. Shoulder abduction WFL. Elbow flexion WFL. Wrist flexion WFL. Functional opening and closing of hand WFL. Right Lower Extremity: Hip flexion WFL. Hip abduction WFL. Knee flexion WFL. Ankle dorsiflexion WFL. Ankle plantarflexion WFL. Left Lower Extremity: Hip flexion WFL. Hip abduction WFL. Knee flexion WFL. Ankle dorsiflexion WFL. Ankle plantarflexion WFL. Strength: Right Upper Extremity: Shoulder flexors 4/5. Shoulder abductors 4/5. Elbow flexors 5/5. Elbow extensors 4/5. Clinical Documentation Consultant strong. Left Upper Extremity: Shoulder flexors 4/5. Shoulder abductors 4/5. Elbow flexors 5/5. Elbow extensors 4/5. Clinical Documentation Consultant strong. Right Lower Extremity: Hip flexors 4/5. Hip abductors 4/5. Knee flexors 5/5. Knee extensors 4/5. Ankle dorsiflexors 4/5. Ankle plantarflexors 4/5. Left Lower Extremity: Hip flexors 4/5. Hip abductors 4/5. Knee flexors 5/5. Knee extensors 4/5. Ankle dorsiflexors 4/5. Ankle plantarflexors 4/5. Bed Mobility/Transfers: Sit to stand with standby assist Stand to sit with standby assist Bed to bedside recliner standby assist Gait: Tolerated level surface ambulation of 175 feet using front-wheeled walker with full weight bearing requiring standby assist and wheelchair follow. MIld shortness of breath subsided with rest,. No report of increased pain. Balance: Static Sitting: Normal Dynamic Sitting: Normal Static Standing: Fair Dynamic Standing: Fair Special Tests: Mobility Limitations Standardized Measure [facility] AM-PAC 6 clicks Basic Mobility Inpatient Short Form: Raw Score: 23 ? CMS Score: 11% deficit? ? ? Informed Consent/Education:? Patient was instructed in purpose of PT consult and plan of care. Agreeable to proceed with established PT POC to achieve personal goals. Assessment: ? Patient presents with clinical signs and symptoms consistent with current/admitting diagnoses that have resulted to mobility limitations, gait instability, generalized weakness, and overall ADL decline as demonstrated by the following impairment level findings: 1.? Decreased strength to B UE/LE major muscle groups 2.? Impaired sitting/standing balance 3.? Impaired activity tolerance 4.? Shortness of breath 5.? Fatigue Impairments are contributing to the following functional limitations: 1.? Difficulty with ambulation without assistive device and physical assistance 2.? Increased completion time for mobility ADL performance 3.? Increased risk for falls 4.? Difficulty with managing steps alone safely Patient is assessed as a [id number] moderate? based on the following: History: 81-year-old malewith past medical history as indicated above Examination: Demonstrable impairment in strength, balance, and mobility level with underlying impairments and functional limitations as exhibited above as well as deficit score of 11% utilizing the [facility] Mobility Inpatient Short Form Presentation: Evolving Decision Makin moderate complexity Goals: Goals X1 week 1. Supine-Sit independent 2. Sit-Supine independent 3. Sit-Stand independent 4. Stand-Sit independent with SPC 5. Bed-Chair independent with SPC 6. Chair-Bed independent with SPC 7. Independent gait on level surface with SPC for at least? 300 feet without report of pain nor dyspnea 8. Good static and dynamic standing balance/tolerance Plan of Care/Treatment Plan: 1-2x/day, 7 days/week x 1 week. Plan of care has been reviewed with the ANALYTICAL CONSULTANT providing the service under Physical Therapy direction. Initiate Physical Therapy intervention for pain management as needed, strengthening, bed mobility, transfers, gait, stairs, balance training, and use of assistive device. DISCHARGE RECOMMENDATIONS: [] ? Home with no services [] [X] ? Home with services. Home when medically cleared by hospitalist. Patient will benefit from home health PT services in order to progress mobility level using least restrictive assistive ambulatory device, assess home safety, identify additional equipment needs, and establish a functional maintenance program that will increase ability of patient to remain at home. [] ? Home with outpatient PT [] [] ? SNF for continued rehabilitation [] [] ? Skilled Nursing Care [] [] ? SNF versus LTC based on ability to participate and progress [] TREATMENT CODE/TIME: 21789 x 20 minutes beginning at 10:32 AM. Thank you for the opportunity to participate in the care of this patient. Pepper Woodard PT, DPT, CLT [facility] [place], [place]
[2022-07-18] MEDS: Lactated Ringers 500 ML IV (11:41)
[2022-07-18 11:51] LABS: Abs Immature Grans 0.09 10^3/uL (0.0-0.06); Absolute Basophil Count 0.03 10^3/uL (0.0-0.2); Absolute Eosinophil Count 0.24 10^3/uL (0.0-0.7); Absolute Lymphocyte Count 1.01 10^3/uL (1.2-3.4); Absolute Monocyte Count 0.55 10^3/uL (0.1-0.8); Absolute Neutrophil Count 8.81 10^3/uL (1.2-6.7); Basophils % 0.3; Eosinophils % 2.2; HCT 36.6 % (40.0-50.0); HGB 12.4 g/dL (13.5-17.5); Immature Grans % 0.8; Lymphocytes % 9.4; MCH 36.9 pg (27.0-33.0); MCHC 33.9 % (32.0-36.0); MCV 109 fL (80-95); MPV 10.2 fL (8.0-11.0); Monocytes % 5.1; Neutrophils % 82.2; Platelet Count 149 10^3/uL (130-400); RBC 3.36 10^6/uL (4.36-5.78); RDW 12.2 % (11.8-14.1); RDW-SD 49.6 fL; WBC 10.73 10^3/uL (4.4-10.8)
[2022-07-18 11:59] LABS: Diff Comment RBC Morph Reviewed; Macrocytosis 1+
[2022-07-18 12:04] LABS: Anion Gap 8.6 mmol/L (3-11); BUN 40 mg/dL (7-18); CO2 26.4 mmol/L (21.0-32.0); Calcium 8.1 mg/dL (8.5-10.1); Chloride 106 mmol/L (98-107); Estimated GFR 32.91 (mL/min/1.73m2); Glucose 100 mg/dL (74-106); Magnesium 1.5 mg/dL (1.8-2.4); Potassium 3.7 mmol/L (3.5-5.1); Sodium 141 mmol/L (136-145)
[2022-07-18 12:24] LABS: Procalcitonin < 0.1 ng/mL
[2022-07-18] MEDS: Normal Saline 1,000 ML 50 ML IV (12:48)
--- NOTE | 2022-07-18 13:22 | PT.INTREAT ---
Date of service: 07/18/22 Time of Service: 13:22 PT Notes Visit Reasons: Dehydration,Orthostatic Hypotension Physical Therapy Inpatient Treatment Note Date: 07/18/2022 Precautions: Fall. Standard. Activity as tolerated. Equipment Owned/DME: FWW,? SPC Subjective:? Agreeable to session.? States that the dizziness has started to diminish.? Head and neck pain down to about 1-2/10 now.? Agreeable to having HH PT.? Objective: General Observation: Seated on chair. IV in R UE.? Contusion seen on L frontal area.? Mental Status: Alert and oriented as to person, place, time, and purpose. Able to pay attention, focus, and respond appropriately. Pain: 1-2/10 headache and neck pain Bed Mobility/Transfers: Sit to stand with standby assist Stand to sit with standby assist Bed to bedside recliner standby assist Gait: Tolerated level surface ambulation of 300 feet using single-point cane with full weight bearing requiring standby assist. Mild shortness of breath subsided with rest. No report of increased pain. THERA EX: Standing hip abduction x 10 Standing hip extension x 10 Bilateral heel raises x 10 Partial knee bends x 10 Balance: Static Sitting: Normal Dynamic Sitting: Normal Static Standing: Fair Dynamic Standing: Fair Assessment: ? Improving mobility level using single point cane. Pain in head and neck diminishing. Denies dizziness. Shortness of breath resolves with rest after activity. DISCHARGE RECOMMENDATIONS: [] ? Home with no services [] [X] ? Home with services.? Home when medically cleared by hospitalist.? Patient will benefit from home health PT services in order to progress mobility level using least restrictive assistive ambulatory device, assess home safety, identify additional equipment needs, and establish a functional maintenance program that will increase ability of patient to remain at home. [] ? Home with outpatient PT [] [] ? SNF for continued rehabilitation [] [] ? Nursing Home Care [] [] ? SNF versus LTC based on ability to participate and progress [] TREATMENT CODE/TIME: 37220 x 15 minutes, 81978 x 13 minutes beginning at 13:22 PM.
[2022-07-18] MEDS: Fluticasone NASAL SPRAY 16 GM BTL NS (14:21)
--- NOTE | 2022-07-18 16:32 | PHA.REVIEW2 ---
Pharmacy Admission Review - Admission Clinical Review (Last Reviewed 07/17/22 @ 00:20 by Mac Barkley) Neuropathy (Acute) Acute dehydration (Acute) Orthostatic hypotension (Acute) Idiopathic pulmonary fibrosis (Acute) PMR (polymyalgia rheumatica) (Acute) Acute kidney injury superimposed on CKD (Acute) History of pulmonary embolism (Acute) Sulfa (Sulfonamide Antibiotics) Adverse Reaction (Intermediate, Verified 07/16/22 22:45) Its been along time cat dander Adverse Reaction (Mild, Verified 07/16/22 22:45) penicillin V Adverse Reaction (Mild, Verified 07/16/22 22:45) nausea salicylates Adverse Reaction (Mild, Verified 07/16/22 22:45) up set stomach voriconazole Adverse Reaction (Mild, Verified 07/16/22 22:45) Visual Disturbances Resuscitation Status DNR/DNI Height 5 ft 9 in Weight 82 kg - Renal Dosing Renal Dosing: BUN 40 mg/dL (7-18) H 07/18/22 11:42 Creatinine 2.0 mg/dL (0.70-1.30) H D 07/18/22 11:42 Medications needing adjustments: Reviewed (crcl = 33. continue apixiban at full dose d/t indication (DVT ppx s/p PE)) - Anticoagulation Anticoagulation: Hgb 12.4 g/dL (13.5-17.5) L 07/18/22 11:42 Hct 36.6 % (40.0-50.0) L 07/18/22 11:42 Plt Count 149 10^3/uL (130-400) 07/18/22 11:42 Creatinine 2.0 mg/dL (0.70-1.30) H D 07/18/22 11:42 DVT Prophylaxis: Reviewed Medications: Apixaban Therapeutic Anticoagulation: Reviewed Medications: Apixaban - Opiate Usage Evaluate Pain Scale/Pains Meds: N/A - Relevant Labs Sodium 141 mmol/L (136-145) 07/18/22 11:42 Potassium 3.7 mmol/L (3.5-5.1) 07/18/22 11:42 Chloride 106 mmol/L (98-107) 07/18/22 11:42 Magnesium 1.5 mg/dL (1.8-2.4) L 07/18/22 11:42 Electrolytes, C-Reactive P, ESR: Reviewed (mg = 1.5) - DM Control DM Control: Glucose 100 mg/dL (74-106) 07/18/22 11:42 - Cardiac Review Cardiac Review: Troponin I < 50 ng/L (<or=60) 07/16/22 19:15 - Qtc Review QTc: Reviewed (QTc = 431 on 07/16) - IV to PO Switch IV Medications: Reviewed (NS running at 50 mL/hr) - Home Meds Home Med List reviewed: Reviewed Relevent Home Meds Not ordered & why?: Ofev held d/t renal function - no data on use in crcl <30. SCr has improved, estimated Crcl now = 33, restart? Midodrine not on home med list but was filled 07/09/22. Furosemide held ([id number]). Potassium not ordered (K = 3.7 today)
--- NOTE | 2022-07-18 16:52 | PGE_ITS ---
Date of Service Date of service: 07/18/22 Time of Service: 10:00 Assessment and Plan Assessment and plan (1) Orthostatic hypotension: Status: Acute Assessment and plan: Patient was clearly orthostatic upon presentation, and blood pressure does seem to have responded to fluids. Reviewing his records, he is at risk of adrenal insufficiency. treated with hydrocortisone He was also on midodrine, so we may need to consider restarting this. (2) Idiopathic pulmonary fibrosis: Status: Acute Assessment and plan: [place] [facility] [place]. He has been maintiained on OFEV. Will consult Dr. Rodrigues, though it does not appear his pulmonary disease is flaring right now. (3) PMR (polymyalgia rheumatica): Status: Acute Assessment and plan: As per HPI patient had recent steroid escalation to treat PMR based on neck pain and elevated inflammatory markers. His neck pain continues. Given recent hand/feet numbness as well as gait instability and urinary retention I am concerned about myelopathy. However this is no signs of cord impingement on CT. Could consider MRI to better assess the spinal cord. For now treating with IV steroid, he will need slow prednisone taper upon discharge. (4) Neuropathy: Status: Acute Assessment and plan: As above this symptom was very prominant last month, now improved. I still think there is a concern for cervical myleopathy, though improved from last month. (5) Acute kidney injury superimposed on CKD: Status: Acute Assessment and plan: Bladder scan not c/w retention. He does seem to be responding to fluids in terms of BP. Will get urine urea/cr to assess etiology (he is on furosemide chronically). Holding furosemide. (6) History of pulmonary embolism: Status: Acute Assessment and plan: Continue apixaban. no does adjustment for this indication despite low GFR (7) Hypothyroidism: Assessment and plan: continue regular lT4. TSH was done 06/26, slightly high, but not acute change for now. Qualifiers: Hypothyroidism type: unspecified Qualified Code(s): E03.9 - Hypothyroidism, unspecified (8) BPH (benign prostatic hyperplasia): Assessment and plan: continue finasteride, tamsulosin, though cut alpha dali dose given orthostasis, monitor for retention Qualifiers: Lower urinary tract symptom presence: symptoms present Lower urinary tract symptom detail: incomplete bladder emptying Qualified Code(s): N40.1 - Benign prostatic hyperplasia with lower urinary tract symptoms; R39.14 - Feeling of incomplete bladder emptying (9) Discharge planning issues: Assessment and plan: He is DNR/DNI. He as followed with palliative in the past, consider reconsult. anticipate discharge to home, PT consulted for discharge planning issues discussed with Dr Marie Subjective Subjective Patient reports: no new complaints, feels better, tolerating a regular diet and afebrile; denies diarrhea, nausea, vomiting or shortness of breath Exam Narrative Exam Narrative: Awake and alert, sitting in a chair, conversant, pleasant. Const General: cooperative, no acute distress and frail appearing Nutritional Appearance: average body habitus Orientation: alert, awake and oriented x3 HENMT Head: normal to inspection and atraumatic Ears: hearing grossly normal bilaterally Face and sinus: normal facial exam Mouth: oral mucosae normal Eyes General: appearance normal, both eyes and all related structures Eyelids: eyelids normal Neck Neck: normal visual inspection and full ROM Resp Effort & Inspection: normal respiratory effort and able to speak in complete sentences Auscultation: not clear to auscultation bilaterally Cardio Jugular venous pressure: no JVD Rate: regular rate Rhythm: regular rhythm GI Inspection: normal to inspection Palpation: soft and nontender Auscultation: normal bowel sounds Back/Spine/Pelvis Cervical Spine: normal cervical lordosis Skin General skin exam: no rashes or lesions noted and other (scattered ecchymosis) Neuro General: patient alert, patient awake, patient oriented x3 and moves all extremities Cognition: normal cognition Speech: speech normal Gait: normal gait Extrem General: normal to inspection, no pedal edema, no calf tenderness and edema Laterality: bilateral Psych Appearance: grossly normal Mental Status: mental status grossly normal Speech and Movement: speech and movement normal Mood: congruent mood Affect: normal affect and blunted Attitude: cooperative Thought Process: normal Thought Content: normal Insight: insight good Judgment: fair Objective Last Vital Signs Temp 36.8 C 07/18/22 15:03 Pulse 82 07/18/22 15:03 Resp 18 07/18/22 11:57 BP 137/84 07/18/22 15:03 Pulse Ox 94 07/18/22 15:03 Laboratory Results - last 24 hr 07/17/22 07/17/22 07/18/22 06:25 06:40 11:42 WBC RBC Hgb Hct MCV MCH MCHC RDW Plt Count MPV Immature Gran % Neutrophils % Lymphocytes % Monocytes % Eosinophils % Basophils % Nucleated RBC % Absolute Neutrophils Absolute Lymphocytes Absolute Monocytes Absolute Eosinophils Absolute Basophils RBC Morphology Macrocytosis Sodium 141 Potassium 3.7 Chloride 106 Carbon Dioxide 26.4 Anion Gap 8.6 BUN 40 H Creatinine 2.0 H D Est GFR (CKD-EPI 2020) 32.91 Glucose 100 Calcium 8.1 L Magnesium 1.5 L Procalcitonin Cortisol 36 Urine Urea Nitrogen 509 07/18/22 07/18/22 11:42 11:42 WBC 10.73 RBC 3.36 L Hgb 12.4 L Hct 36.6 L MCV 109 H MCH 36.9 H MCHC 33.9 RDW 12.2 Plt Count 149 MPV 10.2 Immature Gran % 0.8 Neutrophils % 82.2 Lymphocytes % 9.4 Monocytes % 5.1 Eosinophils % 2.2 Basophils % 0.3 Nucleated RBC % 0.0 Absolute Neutrophils 8.81 H Absolute Lymphocytes 1.01 L Absolute Monocytes 0.55 Absolute Eosinophils 0.24 Absolute Basophils 0.03 RBC Morphology See Below Macrocytosis 1+ Sodium Potassium Chloride Carbon Dioxide Anion Gap BUN Creatinine Est GFR (CKD-EPI 2020) Glucose Calcium Magnesium Procalcitonin < 0.1 Cortisol Urine Urea Nitrogen
--- NOTE | 2022-07-18 16:53 | CMPROGNOTE_ITS ---
- If Service Date Differs Date of service: 07/18/22 Time of Service: 16:53 Care Management Progress Note S/O: Jarrod was sitting up in his chair today when CM met with him. He reported that he is feeling much better, and only slightly dizzy, some of the time. PT evaluated him today and recommended HH services upon discharge. Al stated that it went well with PT. CM will continue to follow. A: Jarrod is an 81 year old male admitted to [facility] on 07/16/22 for dehydration, orthostatic hypotension. P: Anticipate Al will return home via private vehicle when medically cleared. He will follow up with his PCP and discharge plan of care. CM will continue to follow.
[2022-07-18] MEDS: rOPINIRole 1 MG TAB 2 MG PO (20:18)
[2022-07-19 03:17] VITALS: BP 156/76; PULSE 62; RESP 16; TEMP 36.7; O2SAT 96
[2022-07-19] MEDS: Levothyroxine 75 MCG TAB PO (06:20)
[2022-07-19 06:40] LABS: Abs Immature Grans 0.11 10^3/uL (0.0-0.06); Absolute Basophil Count 0.03 10^3/uL (0.0-0.2); Absolute Eosinophil Count 0.16 10^3/uL (0.0-0.7); Absolute Lymphocyte Count 1.32 10^3/uL (1.2-3.4); Absolute Neutrophil Count 4.98 10^3/uL (1.2-6.7); Basophils % 0.4; Eosinophils % 2.3; HGB 10.9 g/dL (13.5-17.5); Immature Grans % 1.5; Lymphocytes % 18.6; MCH 36.3 pg (27.0-33.0); MCHC 34.1 % (32.0-36.0); MCV 107 fL (80-95); MPV 10.3 fL (8.0-11.0); Neutrophils % 70.2; Platelet Count 122 10^3/uL (130-400); RDW 12.4 % (11.8-14.1); RDW-SD 48.7 fL
[2022-07-19 06:58] LABS: Anion Gap 8.2 mmol/L (3-11); BUN 34 mg/dL (7-18); C-Reactive Protein 0.48 mg/dL (0.0-0.3); CO2 23.8 mmol/L (21.0-32.0); CREATININE 1.6 mg/dL (0.70-1.30); Calcium 7.9 mg/dL (8.5-10.1); Chloride 110 mmol/L (98-107); Estimated GFR 43.02 (mL/min/1.73m2); Glucose 87 mg/dL (74-106); Magnesium 1.5 mg/dL (1.8-2.4); Potassium 3.8 mmol/L (3.5-5.1); Sodium 142 mmol/L (136-145)
[2022-07-19 07:00] VITALS: PULSE 53
[2022-07-19 07:33] VITALS: BP 137/80; PULSE 60; RESP 18; TEMP 36.3; O2SAT 93
[2022-07-19] MEDS: Normal Saline 1,000 ML 50 ML IV (08:27)
[2022-07-19] MEDS: Fluticasone NASAL SPRAY 16 GM BTL NS (08:34)
[2022-07-19] MEDS: Vitamins B Comp w/C TAB 1 TAB PO (08:35)
[2022-07-19] MEDS: predniSONE 5 MG TAB 7.5 MG PO (08:35)
[2022-07-19] MEDS: Sertraline 25 MG TAB PO (08:35)
[2022-07-19] MEDS: Tamsulosin 0.4 MG CAPCR PO (08:35)
[2022-07-19] MEDS: Montelukast 10 MG TAB PO (08:35)
[2022-07-19] MEDS: Lactobacillus Acidophilus CAP 1 CAP PO (08:35)
[2022-07-19] MEDS: Finasteride 5 MG TAB PO (08:36)
[2022-07-19] MEDS: Apixaban 5 MG TAB PO (08:36)
[2022-07-19] MEDS: Cetirizine 10 MG TAB 5 MG PO (08:40)
--- NOTE | 2022-07-19 11:07 | DSE_ITS ---
Date of service: 07/19/22 Time of Service: 14:08 DS: Diagnosis Discharge Diagnosis (1) Orthostatic hypotension: Status: Acute (2) Idiopathic pulmonary fibrosis: Status: Acute (3) PMR (polymyalgia rheumatica): Status: Acute (4) Neuropathy: Status: Acute (5) Acute kidney injury superimposed on CKD: Status: Acute (6) History of pulmonary embolism: Status: Acute (7) Hypothyroidism: (8) BPH (benign prostatic hyperplasia): Discharge Plan Disposition Patient Disposition: HOME W/HOME HEALTH SERVICE Condition: Stable Discharge Details Reason For Visit: Dehydration,Orthostatic Hypotension Admit Date/Time: 07/16/22 22:04 Admit Provider: Mac Barkley Attending Provider: Mac Barkley Primary Care Provider: Ana Wilkes [facility] Course Hospital Course: This is an 81 year old with complex history including idiopathic pulmonary fibrosis, polymyalgia rheumatica on chronic steroids, pulmonary embolism on apixaban, and chronic renal insufficiency who presented after progressive orthostatic dizziness and falls over the week prior to admission.? Onset insidious.? Feels lightheaded when standing.? On Friday felt like he was going to pass out after standing up from the toilet and fell and hit the left side of his head, denies LOC. Work up in the ED concerning for dehydration. He received IV fluids with resolution of his symptoms. he was safely re-ambulated. Upon further review of the records, he has complained of neuropathic pain in legs going back to 05/01 PCP visit.? Seen 06/26 with worse shadi leg pain and neck pain and loss of sensation in hands and feet.? Labs at that point included CBC/CMP/Lyme/tick panel which were not revealing but ESR and CRP were high at 54 and 20.? Given neck/shoulder pain and h/o PMR his prednisone was bumped up from 5mg to 20mg.? Patient says that since then the numbness and pain in legs and numbness in hands has gotten better.? On admission he was put back to 7.5 mg with no c/o. We will keep him on this dose at discharge. further adjustments will be deferred to outpatient team. Also of note he was previously taking midodrine.? There is a nursing note from 05/28 that states he had tapered off this.? His blood pressure at the 06/26 visit was normal. at discharge he is 130's over 70-80's . discussed with Dr Marie. Home Meds and New Rx's Prescriptions: New prednisone 5 mg tablet 7.5 mg PO DAILY Qty: 30 0RF Continued furosemide [Lasix] 40 mg tablet 60 mg PO DAILY potassium chloride [Klor-Con M20] 20 mEq tablet,ER particles/crystals 20 meq PO BID Label Comments: 1 tab PO every morning per [facility] vitamin B complex Tablet 1 tab PO DAILY Ofev 150 mg capsule 150 mg PO Q12H Qty: 60 12RF nitroglycerin [Nitrostat] 0.4 mg tablet, sublingual 0.4 mg SL Q5-15M PRN albuterol sulfate [ProAir HFA] 90 mcg/actuation HFA aerosol inhaler 2 puff IH Q6H PRN Label Comments: 2 puffs PO every 4 hrs PRN per [facility] ([facility] [place] Oxygen Tank See Rx Instructions .Route Qty: 1 0RF Rx Instructions: 3Lpm at rest continuous via Nasal Cannula and 8Lpm during exertion continuous via Nasal Cannula levothyroxine 75 MCG tablet 75 mcg PO DAILY ropinirole 2 MG tablet 2 mg PO HS acetaminophen [Tylenol Extra Strength] 500 mg tablet 1,000 mg PO Q4H PRN Label Comments: 1 tab PO every 4 hrs PRN per [facility] sertraline 25 mg tablet 25 mg PO DAILY Label Comments: TAKE 1 TABLET BY MOUTH EVERY DAY finasteride 5 mg tablet 5 mg PO DAILY Label Comments: TAKE 1 TABLET BY MOUTH EVERY DAY tamsulosin 0.4 mg capsule 0.8 mg PO DAILY Label Comments: Take 2 capsule by mouth once a day montelukast 10 mg tablet 10 mg PO DAILY Label Comments: TAKE 1 TABLET BY MOUTH DAILY cetirizine 10 mg Tablet 5 mg PO DAILY Qty: 0 0RF Eliquis 5 mg Tablet 5 mg PO BID Qty: 0 0RF Bio-K plus 50 billion cell capsule,delayed release(DR/EC) 1 cap PO DAILY Label Comments: 1 cap PO TID x 2 months (starting 11/20/21) per [facility] Discharge Instructions Instructions: Hypotension (DC) Stand Alone Forms: Nursing Discharge Form Referrals: Thang Hernandez MD [ [facility] STAFF PHYSICIAN] - 07/31/22 11:35 am () Aimee Rodrigues MD [ [facility] STAFF PHYSICIAN] - 07/30/22 10:00 am Activity:: Activity as Tolerated Equipment/Supplies:: No Equipment Needed Diet:: As Tolerated Discharge Orders Discharge Orders: Discharge Order (Routine); Ordered 07/19/22 Ordered By: Jil Marcano Discharge Data Discharge Date/Time-TO BE ENTERED AT DEPARTURE: 07/19/22 15:30 DS: Summary Time Spent with Patient providing and/or coordinating discharge services: Greater than 30 minutes Status at Discharge Functional status at discharge: uses cane/walker Overall status at discharge: patient is back to baseline Mental Status: mental status grossly normal Speech and Movement: speech and movement normal Mood: congruent mood Affect: normal affect and blunted Exam Const General: cooperative, no acute distress and frail appearing Nutritional Appearance: average body habitus Orientation: alert, awake and oriented x3 HENMT Head: normal to inspection and atraumatic Ears: hearing grossly normal bilaterally Face and sinus: normal facial exam Mouth: oral mucosae normal Eyes General: appearance normal, both eyes and all related structures Eyelids: eyelids normal Neck Neck: normal visual inspection and full ROM Resp Effort & Inspection: normal respiratory effort and able to speak in complete sentences Auscultation: not clear to auscultation bilaterally Cardio Jugular venous pressure: no JVD Rate: regular rate Rhythm: regular rhythm GI Inspection: normal to inspection Palpation: soft and nontender Auscultation: normal bowel sounds Back/Spine/Pelvis Cervical Spine: normal cervical lordosis Skin General skin exam: no rashes or lesions noted and other (scattered ecchymosis) Neuro General: patient alert, patient awake, patient oriented x3 and moves all extremities Cognition: normal cognition Speech: speech normal Gait: normal gait Extrem General: normal to inspection, no pedal edema, no calf tenderness and edema Laterality: bilateral Psych Appearance: grossly normal Mental Status: mental status grossly normal Speech and Movement: speech and movement normal Mood: congruent mood Affect: normal affect and blunted Attitude: cooperative Thought Process: normal Thought Content: normal Insight: insight good Judgment: fair DS: Data Vitals/I&O Vitals and I&O: Vital Signs Temperature 36.3 C L 07/19/22 07:33 Temperature Source Tympanic 07/19/22 07:33 Pulse 60 07/19/22 07:33 Pulse Rhythm Regular 07/19/22 08:30 Respiratory Rate 18 07/19/22 07:33 Respiratory Effort Non-Labored 07/19/22 08:30 Respiratory Depth Normal 07/19/22 08:30 Respiratory Pattern Normal 07/19/22 08:30 Blood Pressure 137/80 07/19/22 07:33 Blood Pressure Position Supine 07/16/22 18:43 Pulse Oximetry 93 07/19/22 07:33 Oxygen Delivery Method Room Air 07/19/22 07:33 Oxygen Flow Rate 0 07/19/22 07:33 Pain Level 4 07/19/22 07:33 Comment 07/18/22 12:55 Intake & Output 07/18/22 07/18/22 07/19/22 11:59 23:59 11:59 Intake Total 1300 / 1880 580 / 1880 1162.5 / 1162.5 Output Total 400 / 1300 900 / 1300 350 / 350 Balance 900 / 580 -320 / 580 812.5 / 812.5 Intake: IV 1000 / 1500 500 / 1500 982.5 / 982.5 Oral 300 / 380 80 / 380 180 / 180 Output: Urine 400 / 1300 900 / 1300 350 / 350 Other: Urine Color Yellow Straw Straw Urine Appearance Clear Clear Clear Urine Odor None Normal Normal Comment 200ml output in urinal and 300ml output in hat Stool Size Small Voiding Methods Toilet Urinal Urinal Urinal Data Completed and Pending Labs on day of discharge: Labs from last 24 hours 07/19/22 07/19/22 07/18/22 06:22 06:22 11:42 WBC 7.10 RBC 3.00 L Hgb 10.9 L Hct 32.0 L MCV 107 H MCH 36.3 H MCHC 34.1 RDW 12.4 Plt Count 122 L MPV 10.3 Immature Gran % 1.5 Neutrophils % 70.2 Lymphocytes % 18.6 Monocytes % 7.0 Eosinophils % 2.3 Basophils % 0.4 Nucleated RBC % 0.0 Absolute Neutrophils 4.98 Absolute Lymphocytes 1.32 Absolute Monocytes 0.50 Absolute Eosinophils 0.16 Absolute Basophils 0.03 RBC Morphology Macrocytosis Sodium 142 Potassium 3.8 Chloride 110 H Carbon Dioxide 23.8 Anion Gap 8.2 BUN 34 H Creatinine 1.6 H Est GFR (CKD-EPI 2020) 43.02 Glucose 87 Calcium 7.9 L Magnesium 1.5 L C-Reactive Protein 0.48 H Procalcitonin < 0.1 07/18/22 07/18/22 11:42 11:42 WBC 10.73 RBC 3.36 L Hgb 12.4 L Hct 36.6 L MCV 109 H MCH 36.9 H MCHC 33.9 RDW 12.2 Plt Count 149 MPV 10.2 Immature Gran % 0.8 Neutrophils % 82.2 Lymphocytes % 9.4 Monocytes % 5.1 Eosinophils % 2.2 Basophils % 0.3 Nucleated RBC % 0.0 Absolute Neutrophils 8.81 H Absolute Lymphocytes 1.01 L Absolute Monocytes 0.55 Absolute Eosinophils 0.24 Absolute Basophils 0.03 RBC Morphology See Below Macrocytosis 1+ Sodium 141 Potassium 3.7 Chloride 106 Carbon Dioxide 26.4 Anion Gap 8.6 BUN 40 H Creatinine 2.0 H D Est GFR (CKD-EPI 2020) 32.91 Glucose 100 Calcium 8.1 L Magnesium 1.5 L C-Reactive Protein Procalcitonin PFSH All Active Problems (Updated 07/17/22 @ 00:33 by Mac Barkley) Neuropathy (Acute) Acute dehydration (Acute) Orthostatic hypotension (Acute) Idiopathic pulmonary fibrosis (Acute) Pulmonary hypertension (Acute) Palliative care patient (Acute) PMR (polymyalgia rheumatica) (Acute) Fungal pneumonia (Acute) Acute respiratory failure with hypoxia (Acute) Palliative care patient (Acute) Acute kidney injury superimposed on CKD (Acute) DNR (do not resuscitate) (Acute) Advanced care planning/counseling discussion (Acute) History of pulmonary embolism (Acute) Sleep apnea (Chronic) PAD (peripheral artery disease) (Chronic) Medical History Acute kidney injury superimposed on chronic kidney disease Bilateral pneumonia BPH (benign prostatic hyperplasia) Chronic ethmoidal sinusitis Chronic frontal sinusitis Chronic kidney disease Deviated nasal septum Dilated aortic root Discharge planning issues DVT prophylaxis E coli bacteremia Fractured rib mid Sept 2018 Hypothyroidism Kidney stone Lyme disease Nasal septal spur Nasal turbinate hypertrophy Palliative care encounter Parkinsons pt. states he does not have Pneumonia Polymyalgia rheumatica pt. reports he has this not parkinsons Pulmonary fat embolism Pyelonephritis due to Escherichia coli Surgical History Hx of colonoscopy Hx of inguinal hernia surgery Hx of total hip arthroplasty right Social History (Updated 07/17/22 @ 00:20 by Mac Barkley) Smoking/Tobacco Use Status: Former Tobacco Use Quit Date: 09/08/81 Smoking risk assessment performed?: Yes Alcohol Intake: current Alcohol Intake frequency: 0-2 drinks per day Alcohol type: beer and hard liquor Drug use: Never Substance use type: does not use Do you feel safe at home: Yes Do you feel safe in your relationship?: Yes Additional Social history: Abby alfarotbor/friend [phone] 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 Sister is in area.
[2022-07-19 11:12] VITALS: BP 132/70; PULSE 61; RESP 18; TEMP 36.4; O2SAT 96
[2022-07-19] MEDS: Normal Saline Flush 10 ML SYR IVP (11:40)
[2022-07-19] MEDS: MAGNESIUM SULFATE 2 GM/50 ML BAG IVPB (11:40)
[2022-07-19 14:22] VITALS: PULSE 81
--- NOTE | 2022-07-19 16:05 | PDOC.CMDIS ---
- If Service Date Differs Date of service: 07/19/22 Time of Service: 16:05 LACE Index Scoring Tool - Questions: Length of Stay (in days): 3 Acuity (Admit via E.D.?): Yes Comorbidities: Liver or Renal Disease E.D. Visits: 4 - Answers: Total Score: 15 Risk of Readmission: High Risk Care Management Discharge Reason for Hospitalization: dehydration, orthostatic hypotension Discharge Plan: Al will return home today with new orders for [facility] RN, PT, OT. His sister will drive him home via private vehicle. He will follow up with his PCP and discharge plan of care. He stated that he feels ready for discharge. Patient/Family Education Needs: Review discharge instructions and limitations, discussion of self care needs including ask me three. Services Needed at Discharge: Home Health Care Services ([facility] RN, PT, OT)
--- NOTE | 2022-07-19 17:01 | PDOC.HHF2F_ITS ---
Home Health Certification Home Health Certification: 1. Encounter Date and Reason I certify that Wilfrido Solorzano Jr was seen by Jil Marcano on 07/19/22 and that I had a [id number] encounter with this patient that meets the physician face to face encounter requirements. 2. Clinical Findings Supporting Skilled Need and Homebound Status I certify that home health services are medically necessary, include either intermittent assisted and/or physical/speech therapy, and that this patient is homebound in that absences from the home require considerable and taxing effort and are infrequent or of short duration, or are attributable to the need to receive medical care. [X] (a) Attached documentation from encounter provides clinical findings supporting skilled need and homebound status (including what assistance patient requires to leave the home). The encounter with the patient was in whole, or in part, for the following medical condition, which is the primary reason for home health care: Dehydration,Orthostatic Hypotension Half-Way: routine nursing for evaluation of vitals, response to medication, hydration status, symptoms evaluation. Physical Therapy: to progress mobility level using least restrictive assistive ambulatory device, assess home safety, identify additional equipment needs, and establish a functional maintenance program that will increase ability of patient to remain at home. Homebound: unable to safely leave the house unattended due to decreased strength and endurance 3. Certification and Authentication I certify that I composed the above information based on my clinical judgement relating to this patient's medical condition and, if applicable, clinical findings communicated to me by the NPP or inpatient physician who performed the Home Health Referral. All further orders will be obtained through _ЕЛЕНА GANDHI NP__(Community Based Physician - PCP)
--- NOTE | 2022-07-19 18:30 | PT.INDS ---
Date of service: 07/19/22 PT Notes Visit Reasons: Dehydration,Orthostatic Hypotension Physical Therapy Inpatient Discharge Summary Date: 07/19/2022 Dates of service: 07/18/2022 only This is a clinical summary of care provided for the duration of dates listed above. No charge was made in the completion of this documentation. Referring Doctor: Jil Marcano NP PT Orders: PT CONSULT: Extended stay weakness.? Limited ability Precautions: Fall. Standard. Activity as tolerated. Patient Profile/Admitting Diagnosis: Al is a 81-year-old male who who presented to the ED with chief complaints of dizziness upon standing up, headache, and neck pain with a fall last Friday that caused him to hit his head.? Patient is diagnosed with orthostatic hypotension.? Idiopathic pulmonary fibrosis, polymyalgia rheumatica, neuropathy, acute on chronic kidney disease, history of pulmonary embolism and is on apixaban, hypothyroidism, and benign prostatic hyperplasia.? He is DNR/DNI. PMHX: All Active Problems?(Updated 07/17/22 @ 00:33 by Mac Barkley) Neuropathy (Acute) Acute dehydration (Acute) Orthostatic hypotension (Acute) Idiopathic pulmonary fibrosis (Acute) Pulmonary hypertension (Acute) Palliative care patient (Acute) PMR (polymyalgia rheumatica) (Acute) Fungal pneumonia (Acute) Acute respiratory failure with hypoxia (Acute) Palliative care patient (Acute) Acute kidney injury superimposed on CKD (Acute) DNR (do not resuscitate) (Acute) Advanced care planning/counseling discussion (Acute) History of pulmonary embolism (Acute) Sleep apnea (Chronic) PAD (peripheral artery disease) (Chronic) Medical History? Acute kidney injury superimposed on chronic kidney disease Bilateral pneumonia BPH (benign prostatic hyperplasia) Chronic ethmoidal sinusitis Chronic frontal sinusitis Chronic kidney disease Deviated nasal septum Dilated aortic root Discharge planning issues DVT prophylaxis E coli bacteremia Fractured rib mid Sept 2018 Hypothyroidism Kidney stone Lyme disease Nasal septal spur Nasal turbinate hypertrophy Palliative care encounter Parkinsons pt. states he does not have Pneumonia Polymyalgia rheumatica pt. reports he has this not parkinsons Pulmonary fat embolism Pyelonephritis due to Escherichia coli Surgical History? Hx of colonoscopy Hx of inguinal hernia surgery Hx of total hip arthroplasty right Hx of total hip arthroplasty right Social History/Home Situation: Lives alone in a private home with 3 steps to enter with rails on both sides.? Gets meals on wheels 3x/week.? has a cleaning lady who comes in one time a week.? States that he has his firewood stored some 25 feet outside of his home and that a neighbor is able to help him bring firewood as needed.? Still drives.? Independent with all aspects of ADLs prior to admission. Equipment Owned/DME: FWW,? SPC Subjective:? NT. See most recent ELECTRONIC INSTALLER notes. Objective: General Observation: NT. See most recent ELECTRONIC INSTALLER notes. Mental Status: NT. See most recent ELECTRONIC INSTALLER notes. Pain: NT. See most recent ELECTRONIC INSTALLER notes. ROM: Right Upper Extremity: ? Shoulder Flexion WFL. Shoulder abduction WFL. Elbow flexion WFL. Wrist flexion WFL. Functional opening and closing of hand WFL. Left Upper Extremity:? Shoulder Flexion WFL. Shoulder abduction WFL. Elbow flexion WFL. Wrist flexion WFL. Functional opening and closing of hand WFL. Right Lower Extremity: Hip flexion WFL. Hip abduction WFL. Knee flexion WFL. Ankle dorsiflexion WFL. Ankle plantarflexion WFL. Left Lower Extremity: Hip flexion WFL. Hip abduction WFL. Knee flexion WFL. Ankle dorsiflexion WFL. Ankle plantarflexion WFL. Strength: Right Upper Extremity: Shoulder flexors 4/5. Shoulder abductors 4/5. Elbow flexors 5/5. Elbow extensors 4/5. Cycle Counter strong. Left Upper Extremity: Shoulder flexors 4/5. Shoulder abductors 4/5. Elbow flexors 5/5. Elbow extensors 4/5. Cycle Counter strong. Right Lower Extremity: Hip flexors 4/5. Hip abductors 4/5. Knee flexors 5/5. Knee extensors 4/5. Ankle dorsiflexors 4/5. Ankle plantarflexors 4/5. Left Lower Extremity: Hip flexors 4/5. Hip abductors 4/5. Knee flexors 5/5. Knee extensors 4/5. Ankle dorsiflexors 4/5. Ankle plantarflexors 4/5. Bed Mobility/Transfers: Sit to stand with standby assist Stand to sit with standby assist Bed to bedside recliner standby assist Gait: Tolerated level surface ambulation of 300 feet using single-point cane with full weight bearing requiring standby assist. Mild shortness of breath subsided with rest.? No report of increased pain. Balance: Static Sitting: Normal Dynamic Sitting: Normal Static Standing: Fair Dynamic Standing: Fair Assessment: ? Patient presents with clinical signs and symptoms consistent with current/admitting diagnoses that have resulted to mobility limitations, gait instability, generalized weakness, and overall ADL decline as demonstrated by the following impairment level findings: 1.? Decreased strength to B UE/LE major muscle groups 2.? Impaired sitting/standing balance 3.? Impaired activity tolerance 4.? Shortness of breath 5.? Fatigue Impairments are contributing to the following functional limitations: 1.? Difficulty with ambulation without assistive device and physical assistance 2.? Increased completion time for mobility ADL performance 3.? Increased risk for falls 4.? Difficulty with managing steps alone safely Goals: Goals X1 week 1. Supine-Sit independent NOT MET 2. Sit-Supine independent NOT MET 3. Sit-Stand independent NOT MET 4. Stand-Sit independent with SPC NOT MET 5. Bed-Chair independent with SPC NOT MET 6. Chair-Bed independent with SPC NOT MET 7. Independent gait on level surface with SPC for at least? 300 feet without report of pain nor dyspnea NOT MET 8. Good static and dynamic standing balance/tolerance NOT MET DISCHARGE RECOMMENDATIONS: [] ? Home with no services [] [X] ? Home with services.? Home when medically cleared by hospitalist.? Patient will benefit from home health PT services in order to progress mobility level using least restrictive assistive ambulatory device, assess home safety, identify additional equipment needs, and establish a functional maintenance program that will increase ability of patient to remain at home. [] ? Home with outpatient PT [] [] ? SNF for continued rehabilitation [] [] ? [facility] [] [] ? SNF versus LTC based on ability to participate and progress [] TREATMENT CODE/TIME: NC Thank you for the opportunity to participate in the care of this patient. Pepper Woodard PT, DPT, CLT [facility] [place], [place]
== END 2022-07-19 15:30 | disposition home health service (06) | DRG 312 ==
LOC: ER 23:24 → MS 23:29
PROVIDERS: Emergency Medicine; Nurse Practitioner Family; Admitting Provider Family Medicine; Emergency Provider Nurse Practitioner Family; PCP Nurse Practitioner Family; Visit Provider Family Medicine
DX: I95.1 Orthostatic hypotension (principal); N17.9 Acute kidney failure, unspecified; J84.112 Idiopathic pulmonary fibrosis; M35.3 Polymyalgia rheumatica; E86.0 Dehydration; N18.9 Chronic kidney disease, unspecified; E03.9 Hypothyroidism, unspecified; Z79.01 Long term (current) use of anticoagulants; W19.XXXA Unspecified fall, initial encounter; Z86.711 Personal history of pulmonary embolism; S00.12XA Contusion of left eyelid and periocular area, initial encounter; I27.20 Pulmonary hypertension, unspecified; Z66 Do not resuscitate; I73.9 Peripheral vascular disease, unspecified; G47.30 Sleep apnea, unspecified; M54.2 Cervicalgia; R33.9 Retention of urine, unspecified; R26.89 Other abnormalities of gait and mobility; N40.1 Benign prostatic hyperplasia with lower urinary tract symptoms
CPT/HCPCS: 36415; 80048; 80053; 82533; 84145; 87635; 93005; 96361; 96374; 97110; 97162; 97530; 99285; 70450; 72125; 81003; 81015; 82565; 83735; 84484; 84540; 85025; 86140; 93010; 99232; 99233; 99239; J0131; J1720; J7512

== ENCOUNTER 2022-07-29 11:04 | Outpatient (REF) | payer MEDICARE, SELFPAY ==
[2022-07-29 13:34] LABS: Anion Gap 8.7 mmol/L (3-11); BUN 29 mg/dL (7-18); CO2 28.3 mmol/L (21.0-32.0); CREATININE 2.2 mg/dL (0.70-1.30); Chloride 99 mmol/L (98-107); Estimated GFR 29.36 (mL/min/1.73m2); Glucose 88 mg/dL (74-106); Potassium 3.9 mmol/L (3.5-5.1); Sodium 136 mmol/L (136-145)
== END 2022-07-29 11:05 | disposition home or self-care (01) ==
LOC: NCHCN 11:04
PROVIDERS: PCP Nurse Practitioner Family; Visit Provider Internal Medicine
DX: E87.6 Hypokalemia (principal)
CPT/HCPCS: 80048

== ENCOUNTER 2022-08-08 04:29 | Outpatient (CLI) | payer MEDICARE, SELFPAY ==
[2022-08-08] MEDS: Inhaler, Assist Device 1 EACH MC (14:15)
[2022-08-08] MEDS: Albuterol HFA 18 GM 200 PUFF INH IH (14:15)
--- NOTE | 2022-08-09 11:33 | W.PFT ---
Date of service: 08/08/22 Time of Service: 13:22 Pulmonary Function Test Result Requesting Provider Tracie Indications: IPF Interpretation Spirometry: There is restrictive appearing spirometry. No airflow limitation. No significant bronchodilator response. Lung Volumes: Moderate restrictive lung disease. Diffusion Capacity: Decreased diffusion Airway Pressure: Normal airways resistance. Impression Moderate restrictive lung disease Note: When compared to 12/28/21 there has been improvement in all areas of lung function. Clinical Correlation therefore is recommended.
== END 2022-08-08 04:30 | disposition home or self-care (01) ==
LOC: RT 04:29
PROVIDERS: PCP Family Medicine; Visit Provider Student in an Organized Health Care Education/Training Program
DX: J84.112 Idiopathic pulmonary fibrosis (principal); J98.4 Other disorders of lung
CPT/HCPCS: 94060; 94726; 94729

== ENCOUNTER 2022-08-09 11:32 | Emergency (ER) | payer MEDICARE, SELFPAY ==
[2022-08-09 11:58] VITALS: BP 140/87; PULSE 85; RESP 18; TEMP 36.2; O2SAT 96
[2022-08-09 12:26] VITALS: BP 135/85; PULSE 82; RESP 16; TEMP 37; O2SAT 97
--- NOTE | 2022-08-09 14:15 | DI.RAD_ITS ---
Exam(s) XR HAND RT COMPLETE EXAM: XR HAND RT COMPLETE CLINICAL HISTORY: knuckle swelling, MCP 2-5. TECHNIQUE: 2D digital imaging was performed. Three views. COMPARISON: No exams were available for comparison FINDINGS: BONES: No acute fracture is present. No bony destructive lesion is seen. JOINTS: No dislocation present. Degenerative changes are noted of the interphalangeal joints and me tacarpal phalangeal. SOFT TISSUE: No foreign body. IMPRESSION: Degenerative changes. No acute abnormality. DATA REPOSITORY: RADIATION DOSE DELIVERED:
[2022-08-09] MEDS: Acetaminophen 325 MG TAB 650 MG PO (14:35)
[2022-08-09] MEDS: Dexamethasone 10 MG/ML VIAL IM (14:37)
[2022-08-09 15:27] LABS: Abs Immature Grans 0.09 10^3/uL (0.0-0.06); Absolute Basophil Count 0.02 10^3/uL (0.0-0.2); Absolute Eosinophil Count 0.03 10^3/uL (0.0-0.7); Absolute Lymphocyte Count 0.65 10^3/uL (1.2-3.4); Absolute Neutrophil Count 9.26 10^3/uL (1.2-6.7); Basophils % 0.2; Eosinophils % 0.3; HCT 38.7 % (40.0-50.0); HGB 13.1 g/dL (13.5-17.5); Immature Grans % 0.8; MCH 35.5 pg (27.0-33.0); MCHC 33.9 % (32.0-36.0); MCV 105 fL (80-95); MPV 9.5 fL (8.0-11.0); Monocytes % 6.5; Neutrophils % 86.2; Platelet Count 231 10^3/uL (130-400); RBC 3.69 10^6/uL (4.36-5.78); RDW 12.6 % (11.8-14.1); RDW-SD 49.2 fL; WBC 10.75 10^3/uL (4.4-10.8)
[2022-08-09 15:31] LABS: ESR 28 mm/hr (0-20)
[2022-08-09 15:43] LABS: ALT 16 U/L (16-63); AST 15 U/L (15-37); Albumin 3.6 g/dL (3.4-5.0); Alkaline Phosphatase 61 U/L (46-116); Anion Gap -0.6 mmol/L (3-11); BUN 36 mg/dL (7-18); Bilirubin, Total 1.3 mg/dL (0.2-1.0); CO2 32.6 mmol/L (21.0-32.0); CREATININE 2.4 mg/dL (0.70-1.30); Calcium 9.5 mg/dL (8.5-10.1); Chloride 98 mmol/L (98-107); Estimated GFR 26.44 (mL/min/1.73m2); Glucose 130 mg/dL (74-106); Potassium 3.9 mmol/L (3.5-5.1); Sodium 130 mmol/L (136-145); Total Protein 6.9 g/dL (6.4-8.2)
--- NOTE | 2022-08-09 16:18 | W.ED.GENAD ---
Discharge Plan Disposition Patient Disposition: Home Condition: Improving Discharge Details Clinical Impression: Arthritis pain, hand Primary Care Provider: Thang Hernandez ED Provider: Eliseo Fontana Home Meds and New Rx's Prescriptions: New ibuprofen 400 mg tablet 400 mg PO Q6H PRN (Reason: pain) Qty: 20 0RF No Action furosemide [Lasix] 40 mg tablet 60 mg PO DAILY vitamin B complex Tablet 1 tab PO DAILY Ofev 150 mg capsule 150 mg PO Q12H Qty: 60 12RF pantoprazole 40 mg tablet,delayed release (DR/EC) 40 mg PO DAILY Breztri Aerosphere 160-9-4.8 mcg/actuation HFA aerosol inhaler 2 inh inhalation BID nitroglycerin [Nitrostat] 0.4 mg tablet, sublingual 0.4 mg SL Q5-15M PRN albuterol sulfate [ProAir HFA] 90 mcg/actuation HFA aerosol inhaler 2 puff IH Q6H PRN Label Comments: 2 puffs PO every [address] [facility] (DME) Oxygen Tank See Rx Instructions .Route Qty: 1 0RF Rx Instructions: 3Lpm at rest continuous via Nasal Cannula and 8Lpm during exertion continuous via Nasal Cannula Dandruff Shampoo (selenium) 1 % shampoo 1 applic topical QWEEK Rx Instructions: massage into affected area; leave on for 10 mins ; rinse off thoroughly 1-2 x a week fluticasone propionate [Allergy Relief (fluticasone)] 50 mcg/actuation spray,suspension 1 spray intranasal BID Rx Instructions: administer into each nostril acetaminophen [Tylenol Extra Strength] 500 mg tablet 500 mg PO Q4H PRN Label Comments: 1 tab PO every [address] [facility] potassium chloride [Klor-Con M20] 20 mEq tablet,ER particles/crystals 10 meq PO BID prednisone 10 mg tablet 20 mg PO DAILY prednisone 2.5 mg tablet 7.5 mg PO DAILY midodrine 2.5 mg tablet 5 mg PO TID prednisone 5 mg tablet 7.5 mg PO DAILY Qty: 30 0RF levothyroxine 75 MCG tablet 75 mcg PO DAILY ropinirole 2 MG tablet 2 mg PO HS sertraline 25 mg tablet 25 mg PO DAILY Label Comments: TAKE 1 TABLET BY MOUTH EVERY DAY finasteride 5 mg tablet 5 mg PO DAILY Label Comments: TAKE 1 TABLET BY MOUTH EVERY DAY tamsulosin 0.4 mg capsule 0.8 mg PO DAILY Label Comments: Take 2 capsule by mouth once a day montelukast 10 mg tablet 10 mg PO DAILY Label Comments: TAKE 1 TABLET BY MOUTH DAILY cetirizine 10 mg Tablet 5 mg PO DAILY Qty: 0 0RF Eliquis 5 mg Tablet 5 mg PO BID Qty: 0 0RF Bio-K plus 50 billion cell capsule,delayed release(DR/EC) 1 cap PO DAILY Label Comments: 1 cap PO TID x 2 months (starting 11/20/21) per Bharat TIDWELL Discharge Instructions Instructions: Arthritis (ED) Additional Instructions: Please immediately return to the emergency department you develop fevers chills sweats worsening redness swelling or pain. Continue with ibuprofen and Tylenol at home. Medical Decision Making 81-year-old male history of gout presents with atraumatic pain to second third and fourth MCP joints of right hand, flexion extension intact, slight erythema and induration overlying these joints, no fluctuance appreciated, patient is afebrile nontoxic denies systemic signs of infection, also slight discomfort at the base of his left great toe however no induration or erythema in that region. Consider gouty flare versus osteoarthritis versus rheumatoid arthritis versus less likely septic joint given history and physical; trial of steroids Tylenol, have obtained labs including inflammatory markers and x-ray. X-ray unremarkable patient resting comfortably. Slight elevation of ESR no white count no evidence of focal irregularities on x-ray some component of chronic appearing degenerative joint disease. Patient be given home care and strict return precautions. 16: 27 patient feeling relief from medications. Swelling is actually gone down after Tylenol and steroid. No white count negative procalcitonin. Afebrile. Less likely septic joint. Home care instructions and strict return precautions given. Patient to follow with primary care physician. Sign Out No HPI General Date/Time Provider Initiated Documentation: 08/09/22 13:43. HPI Narrative: 81-year-old male history of gout presents with swelling to second and third knuckle of right hand over the past 5 days painful and red denies fevers chills or systemic signs of illness, does have slight discomfort in his left great toe as well without redness. No recent trauma. Related Data Home Medications Medication Instructions Recorded Confirmed levothyroxine 75 mcg tablet 75 mcg PO DAILY 12/03/16 07/30/22 ropinirole 2 mg tablet 2 mg PO HS 12/03/16 07/30/22 nitroglycerin 0.4 mg sublingual 0.4 mg sublingual Q5-15M PRN 07/30/19 07/30/22 tablet (Nitrostat) finasteride 5 mg tablet 5 mg PO DAILY 08/27/21 07/30/22 sertraline 25 mg tablet 25 mg PO DAILY 08/27/21 07/30/22 montelukast 10 mg tablet 10 mg PO DAILY 10/24/21 07/30/22 tamsulosin 0.4 mg capsule 0.8 mg PO DAILY 10/24/21 07/30/22 apixaban 5 mg tablet (Eliquis) 5 mg PO BID #0 tabs 11/20/21 07/30/22 cetirizine 10 mg tablet 5 mg PO DAILY #0 tabs 11/20/21 07/30/22 L. acidophilus,casei,rhamnosus 50 1 cap PO DAILY 12/12/21 07/30/22 billion cell capsule,delayed release (Bio-K plus) albuterol sulfate 90 mcg/actuation 2 puff inhalation Q6H PRN 12/12/21 07/30/22 aerosol inhaler (ProAir HFA) nintedanib 150 mg capsule (Ofev) 150 mg PO Q12H #60 caps 12/12/21 07/30/22 vitamin B complex 1 tab PO DAILY 12/12/21 07/30/22 Oxygen #1 ea 01/01/22 07/30/22 furosemide 40 mg tablet (Lasix) 60 mg PO DAILY 01/03/22 07/30/22 prednisone 5 mg tablet 7.5 mg PO DAILY #30 tabs 07/19/22 07/30/22 budesonide 160 mcg-glycopyr 9 2 inh inhalation BID 07/30/22 07/30/22 mcg-formot 4.8 mcg/actuation HFA inhaler (Breztri Aerosphere) pantoprazole 40 mg tablet,delayed 40 mg PO DAILY 07/30/22 07/30/22 release acetaminophen 500 mg tablet 500 mg PO Q4H PRN 08/06/22 (Tylenol Extra Strength) fluticasone propionate 50 1 spray intranasal BID 08/06/22 mcg/actuation nasal spray,suspension (Allergy Relief (fluticasone)) midodrine 2.5 mg tablet 5 mg PO TID 08/06/22 potassium chloride 20 mEq 10 meq PO BID 08/06/22 tablet,extended release(part/cryst) (Klor-Con M) prednisone 10 mg tablet 20 mg PO DAILY 08/06/22 prednisone 2.5 mg tablet 7.5 mg PO DAILY 08/06/22 selenium sulfide 1 % shampoo 1 applic topical QWEEK 08/06/22 (Dandruff Shampoo (selenium sulfide)) ibuprofen 400 mg tablet 400 mg PO Q6H PRN pain #20 tabs 08/09/22 Previous Rx's Medication Instructions Recorded apixaban 5 mg tablet (Eliquis) 5 mg PO BID #0 tabs 11/20/21 cetirizine 10 mg tablet 5 mg PO DAILY #0 tabs 11/20/21 nintedanib 150 mg capsule (Ofev) 150 mg PO Q12H #60 caps 12/12/21 Oxygen #1 ea 01/01/22 prednisone 5 mg tablet 7.5 mg PO DAILY #30 tabs 07/19/22 ibuprofen 400 mg tablet 400 mg PO Q6H PRN pain #20 tabs 08/09/22 Allergies Allergy/AdvReac Type Severity Reaction Status Date / Time Sulfa (Sulfonamide AdvReac Intermediate Its been Verified 07/30/22 09:57 Antibiotics) along time cat dander AdvReac Mild Verified 07/30/22 09:57 penicillin V AdvReac Mild nausea Verified 07/30/22 09:57 salicylates AdvReac Mild up set Verified 07/30/22 09:57 stomach voriconazole AdvReac Mild Visual Verified 07/30/22 09:57 Disturbances General Stated Complaint: Orthopedic BRYCE: 4 Review of Systems Narrative: Review of Systems Constitutional: negative Eyes: negative ENT: negative Cardiovascular: negative Respiratory: negative Gastrointestinal: negative : negative Musculoskeletal: Hand pain Skin: negative Neurologic: negative Psych: negative PFSH All Active Problems (Updated 08/09/22 @ 16:29 by Eliseo Fontana MD) Arthritis pain, hand (Acute) Neuropathy (Acute) Acute dehydration (Acute) Orthostatic hypotension (Acute) Idiopathic pulmonary fibrosis (Acute) Pulmonary hypertension (Acute) Palliative care patient (Acute) PMR (polymyalgia rheumatica) (Acute) Fungal pneumonia (Acute) Acute respiratory failure with hypoxia (Acute) Palliative care patient (Acute) Acute kidney injury superimposed on CKD (Acute) DNR (do not resuscitate) (Acute) Advanced care planning/counseling discussion (Acute) History of pulmonary embolism (Acute) Sleep apnea (Chronic) PAD (peripheral artery disease) (Chronic) Medical History (Updated 08/09/22 @ 16:29 by Eliseo Fontana MD) Abdominal aortic aneurysm Acute kidney injury superimposed on chronic kidney disease Anemia, mild BCC (basal cell carcinoma) Bilateral pneumonia BPH (benign prostatic hyperplasia) Chest pain CHF (congestive heart failure) Chronic ethmoidal sinusitis Chronic frontal sinusitis Chronic kidney disease Chronic lower back pain Deviated nasal septum Dilated aortic root Discharge planning issues DVT prophylaxis E coli bacteremia Elevated creatine kinase Fractured rib mid Sept 2018 Generalized osteoarthrosis Gout H/O urinary frequency Headache History of depression History of IBS Hx of colonic polyps Hx of Lyme disease Hx of pyelonephritis Hypertension Hypokalemia Hypothyroidism Kidney stone Lichen planus Lyme disease Nasal septal spur Nasal turbinate hypertrophy On home oxygen therapy Orthostatic dizziness Pain, joint, hip, right Palliative care encounter Parkinsons pt. states he does not have Pneumonia Polymyalgia rheumatica pt. reports he has this not parkinsons Pulmonary emboli Pulmonary fat embolism Pulmonary fibrosis Pulmonary infiltrates Pyelonephritis due to Escherichia coli Restless leg syndrome Severe muscle deconditioning Sinus bradycardia Skin breakdown Trochanteric bursitis Venous insufficiency Surgical History Hx of colonoscopy Hx of inguinal hernia surgery Hx of total hip arthroplasty right Social History (Updated 07/17/22 @ 00:20 by Mac Barkley) Smoking/Tobacco Use Status: Former Tobacco Use Quit Date: 09/08/81 Smoking risk assessment performed?: Yes Alcohol Intake: current Alcohol Intake frequency: 0-2 drinks per day Alcohol type: beer and hard liquor Drug use: Never Substance use type: does not use Do you feel safe at home: Yes Do you feel safe in your relationship?: Yes Additional Social history: Abby alfarotbor/friend [phone] 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 Sister is in area. Exam Narrative Exam Narrative: Physical Examination General: alert, awake, cooperative, resting comfortably, no acute distress HEENT: normocephalic, atraumatic; PERRL, EOM intact, conjunctiva normal; no nasal discharge; moist mucous membranes, oral and pharyngeal mucosa normal, tolerating secretions Neck: supple, trachea midline; full ROM Chest: normal to inspection Respiratory: normal respiratory effort, speaking in full sentences, clear to auscultation, no wheezing, rales or rhonchi Cardiac: regular rate, regular rhythm, S1S2 intact, no murmurs rubs or gallops GI: abdomen soft, non-tender, non-distended; no palpable mass or hepatosplenomegaly Skin: See extremity Neuro: AAOx3, normal speech, moving all extremities Extremities: Right hand: Erythema and mild localized induration overlying second third and small component of fourth MCP joint, flexion extension intact with some discomfort, sensation intact, warm well perfused, no fluctuance Psych: Appropriate mood and affect Course Vital Signs Vital signs: Vital Signs Temperature 36.2 C L 08/09/22 11:58 Pulse 85 08/09/22 11:58 Respiratory Rate 18 08/09/22 11:58 Blood Pressure 140/87 08/09/22 11:58 Pulse Oximetry 96 08/09/22 11:58 Temperature 37.0 C 08/09/22 12:26 Temperature Source Oral 08/09/22 12:26 Pulse 82 08/09/22 12:26 Respiratory Rate 16 08/09/22 12:26 Respiratory Effort 08/09/22 12:02 Blood Pressure 135/85 08/09/22 12:26 Blood Pressure Position Supine 08/09/22 11:58 Pulse Oximetry 97 08/09/22 12:26 Oxygen Delivery Method Room Air 08/09/22 12:26 Oxygen Flow Rate 0 08/09/22 12:26 Pain Level 8 08/09/22 12:26 Lab/Test Results Lab/Test Results: Laboratory Tests Range/Units 08/09/22 08/09/22 08/09/22 15:07 15:07 15:07 WBC (4.4-10.8) 10^3/uL 10.75 RBC (4.36-5.78) 10^6/uL 3.69 L Hgb (13.5-17.5) g/dL 13.1 L Hct (40.0-50.0) % 38.7 L MCV (80-95) fL 105 H MCH (27.0-33.0) pg 35.5 H MCHC (32.0-36.0) % 33.9 RDW (11.8-14.1) % 12.6 Plt Count (130-400) 10^3/uL 231 MPV (8.0-11.0) fL 9.5 Immature Gran % 0.8 Neutrophils % 86.2 Lymphocytes % 6.0 Monocytes % 6.5 Eosinophils % 0.3 Basophils % 0.2 Nucleated RBC % (0.0-0.3) % 0.0 Absolute Neutrophils (1.2-6.7) 10^3/uL 9.26 H Absolute Lymphocytes (1.2-3.4) 10^3/uL 0.65 L Absolute Monocytes (0.1-0.8) 10^3/uL 0.70 Absolute Eosinophils (0.0-0.7) 10^3/uL 0.03 Absolute Basophils (0.0-0.2) 10^3/uL 0.02 ESR (0-20) mm/hr 28 H Sodium (136-145) mmol/L 130 L Potassium (3.5-5.1) mmol/L 3.9 Chloride (98-107) mmol/L 98 Carbon Dioxide (21.0-32.0) mmol/L 32.6 H Anion Gap (3-11) mmol/L -0.6 L BUN (7-18) mg/dL 36 H Creatinine (0.70-1.30) mg/dL 2.4 H Est GFR (CKD-EPI 2020) (mL/min/1.73m2) 26.44 Glucose (74-106) mg/dL 130 H Calcium (8.5-10.1) mg/dL 9.5 Total Bilirubin (0.2-1.0) mg/dL 1.3 H AST (15-37) U/L 15 ALT (16-63) U/L 16 Alkaline Phosphatase (46-116) U/L 61 Total Protein (6.4-8.2) g/dL 6.9 Albumin (3.4-5.0) g/dL 3.6
[2022-08-09 16:19] LABS: Procalcitonin < 0.1 ng/mL
[2022-08-11 17:46] LABS: CRP, High Sensitivity >15.00 mg/L (See Note)
== END 2022-08-09 16:41 | disposition home or self-care (01) ==
PROVIDERS: Emergency Provider Emergency Medicine; PCP Family Medicine
DX: M19.041 Primary osteoarthritis, right hand (principal); L53.9 Erythematous condition, unspecified; I13.0 Hypertensive heart and chronic kidney disease with heart failure and stage 1 through stage 4 chronic kidney disease, or unspecified chronic kidney disease; I50.9 Heart failure, unspecified; N18.9 Chronic kidney disease, unspecified; E03.9 Hypothyroidism, unspecified; G20 Parkinson's disease; M10.9 Gout, unspecified; Z87.891 Personal history of nicotine dependence; Z86.711 Personal history of pulmonary embolism; Z86.718 Personal history of other venous thrombosis and embolism
CPT/HCPCS: 80053; 84145; 85652; 86141; 96372; 99284; 73130; 85025; J1100

== ENCOUNTER 2022-08-13 17:16 | Outpatient (REF) | payer MEDICARE, SELFPAY ==
[2022-08-13 20:25] LABS: Uric Acid 14.3 mg/dL (3.5-7.2)
== END 2022-08-13 17:17 | disposition home or self-care (01) ==
LOC: NCHCN 17:16
PROVIDERS: PCP Family Medicine; Visit Provider Internal Medicine
DX: M10.9 Gout, unspecified (principal)
CPT/HCPCS: 84550

== ENCOUNTER 2022-09-05 15:40 | Emergency (ER) | payer MEDICARE, SELFPAY ==
[2022-09-05 15:43] VITALS: BP 129/83; PULSE 106; RESP 16; TEMP 36.7; O2SAT 94
[2022-09-05 16:53] VITALS: BP 113/77; PULSE 87; RESP 19; TEMP 37; O2SAT 93
--- NOTE | 2022-09-05 17:15 | DI.RAD_ITS ---
Exam(s) XR FOOT LT COMPLETE EXAM: XR FOOT LT COMPLETE CLINICAL HISTORY: pain, swelling, bruising. TECHNIQUE: 2D digital imaging was performed. Three views. COMPARISON: No exams were available for comparison FINDINGS: BONES: No acute fracture is present. No bony destructive lesion is seen. Enthesophyte at Achilles ins ertion. Tiny plantar calcaneal spur. JOINTS: No dislocation present. SOFT TISSUE: Marked swelling over dorsum of metatarsal region. IMPRESSION: Soft tissue swelling. No fracture identified. DATA REPOSITORY: RADIATION DOSE DELIVERED:
--- NOTE | 2022-09-05 17:17 | ED.GENADUL_ITS ---
Discharge Plan Disposition Patient Disposition: Home Condition: Improving Discharge Details Clinical Impression: Gout attack Primary Care Provider: hTang Hernandez ED Provider: Santiago Phipps Home Meds and New Rx's Prescriptions: New prednisone 10 mg tablet 10 mg PO DIRECTED Qty: 30 0RF Rx Instructions: 40 mg daily for 3 days, then 30 mg daily for 3 days, then 20 mg daily for 3 days, then 10 mg daily for 3 days, then return to normal daily dose. Continued furosemide [Lasix] 40 mg tablet 60 mg PO DAILY vitamin B complex Tablet 1 tab PO DAILY Ofev 150 mg capsule 150 mg PO Q12H Qty: 60 12RF pantoprazole 40 mg tablet,delayed release (DR/EC) 40 mg PO DAILY Breztri Aerosphere 160-9-4.8 mcg/actuation HFA aerosol inhaler 2 inh inhalation BID nitroglycerin [Nitrostat] 0.4 mg tablet, sublingual 0.4 mg SL Q5-15M PRN albuterol sulfate [ProAir HFA] 90 mcg/actuation HFA aerosol inhaler 2 puff IH Q6H PRN Label Comments: 2 puffs PO every 4 hrs PRN per [facility] (DME) Oxygen Tank See Rx Instructions .Route Qty: 1 0RF Rx Instructions: 3Lpm at rest continuous via Nasal Cannula and 8Lpm during exertion continuous via Nasal Cannula Dandruff Shampoo (selenium) 1 % shampoo 1 applic topical QWEEK Rx Instructions: massage into affected area; leave on for 10 mins ; rinse off thoroughly 1-2 x a week fluticasone propionate [Allergy Relief (fluticasone)] 50 mcg/actuation spray,suspension 1 spray intranasal BID Rx Instructions: administer into each nostril acetaminophen [Tylenol Extra Strength] 500 mg tablet 500 mg PO Q4H PRN Label Comments: 1 tab PO every 4 hrs PRN per [facility] potassium chloride [Klor-Con M20] 20 mEq tablet,ER particles/crystals 10 meq PO BID prednisone 2.5 mg tablet 7.5 mg PO DAILY midodrine 2.5 mg tablet 5 mg PO TID ibuprofen 400 mg tablet 400 mg PO Q6H PRN (Reason: pain) Qty: 20 0RF levothyroxine 75 MCG tablet 75 mcg PO DAILY ropinirole 2 MG tablet 2 mg PO HS sertraline 25 mg tablet 25 mg PO DAILY Label Comments: TAKE 1 TABLET BY MOUTH EVERY DAY finasteride 5 mg tablet 5 mg PO DAILY Label Comments: TAKE 1 TABLET BY MOUTH EVERY DAY tamsulosin 0.4 mg capsule 0.8 mg PO DAILY Label Comments: Take 2 capsule by mouth once a day montelukast 10 mg tablet 10 mg PO DAILY Label Comments: TAKE 1 TABLET BY MOUTH DAILY cetirizine 10 mg Tablet 5 mg PO DAILY Qty: 0 0RF Eliquis 5 mg Tablet 5 mg PO BID Qty: 0 0RF Bio-K plus 50 billion cell capsule,delayed release(DR/EC) 1 cap PO DAILY Label Comments: 1 cap PO TID x 2 months (starting 11/20/21) per [facility] Discharge Instructions Instructions: Gout (ED) Additional Instructions: Please take prednisone as prescribed and burst and then taper back to your routine dose. Elevate to reduce pain and swelling 1 at home and at rest. We will have our care management team arrange a follow-up for you at [facility] for recheck. Return to the emergency department for any acute concern. Medical Decision Making 82-year-old male presents with left foot pain. He has had a history of gout in the past. He denies any acute injury. He presents with pain, swelling, ecchymosis on the dorsum and through the toes of the left foot. He is diffusely tender. Differential diagnosis includes underlying bony injury, gouty arthritis. Patient was referred for x-ray. There is evidence of calcaneal spurs, no fracture or dislocation. Soft tissue swelling present. Given the patient's history of gout, discussed home treatment with him. He has had a good response to prednisone in the past, will try a small burst and then taper back to routine dose. He is stable and understands outpatient care. HPI General Mode of arrival: ambulatory . Date/Time Provider Initiated Documentation: 09/05/22 17:10 . Limitations to Documentation: no limitations . Information obtained by: patient . History of Present Illness 82 year old M presents to the emergency department with the chief complaint of Left foot pain, bruising, swelling, described as moderate and similar to prior episodes, Quality is described as dull and constant, and is localized to the left and lower extremity. Patient reports no radiation. Patient started experiencing this day(s) and it has been constant. Rest improves symptom(s), Movement worsens symptoms . Patient notes denies fever/chills and weakness. Patient did receive the following treatments prior to arrival, none Related Data Home Medications Medication Instructions Recorded Confirmed levothyroxine 75 mcg tablet 75 mcg PO DAILY 12/03/16 09/05/22 ropinirole 2 mg tablet 2 mg PO HS 12/03/16 09/05/22 nitroglycerin 0.4 mg sublingual 0.4 mg sublingual Q5-15M PRN 07/30/19 09/05/22 tablet (Nitrostat) finasteride 5 mg tablet 5 mg PO DAILY 08/27/21 09/05/22 sertraline 25 mg tablet 25 mg PO DAILY 08/27/21 09/05/22 montelukast 10 mg tablet 10 mg PO DAILY 10/24/21 09/05/22 tamsulosin 0.4 mg capsule 0.8 mg PO DAILY 10/24/21 09/05/22 apixaban 5 mg tablet (Eliquis) 5 mg PO BID #0 tabs 11/20/21 09/05/22 cetirizine 10 mg tablet 5 mg PO DAILY #0 tabs 11/20/21 09/05/22 L. acidophilus,casei,rhamnosus 50 1 cap PO DAILY 12/12/21 09/05/22 billion cell capsule,delayed release (Bio-K plus) albuterol sulfate 90 mcg/actuation 2 puff inhalation Q6H PRN 12/12/21 09/05/22 aerosol inhaler (ProAir HFA) nintedanib 150 mg capsule (Ofev) 150 mg PO Q12H #60 caps 12/12/21 09/05/22 vitamin B complex 1 tab PO DAILY 12/12/21 09/05/22 Oxygen #1 ea 01/01/22 09/05/22 furosemide 40 mg tablet (Lasix) 60 mg PO DAILY 01/03/22 09/05/22 budesonide 160 mcg-glycopyr 9 2 inh inhalation BID 07/30/22 09/05/22 mcg-formot 4.8 mcg/actuation HFA inhaler (Breztri Aerosphere) pantoprazole 40 mg tablet,delayed 40 mg PO DAILY 07/30/22 09/05/22 release acetaminophen 500 mg tablet 500 mg PO Q4H PRN 08/06/22 09/05/22 (Tylenol Extra Strength) fluticasone propionate 50 1 spray intranasal BID 08/06/22 09/05/22 mcg/actuation nasal spray,suspension (Allergy Relief (fluticasone)) midodrine 2.5 mg tablet 5 mg PO TID 08/06/22 09/05/22 potassium chloride 20 mEq 10 meq PO BID 08/06/22 09/05/22 tablet,extended release(part/cryst) (Klor-Con M) prednisone 2.5 mg tablet 7.5 mg PO DAILY 08/06/22 09/05/22 selenium sulfide 1 % shampoo 1 applic topical QWEEK 08/06/22 09/05/22 (Dandruff Shampoo (selenium sulfide)) ibuprofen 400 mg tablet 400 mg PO Q6H PRN pain #20 tabs 08/09/22 09/05/22 prednisone 10 mg tablet 10 mg PO DIRECTED #30 tabs 09/05/22 Previous Rx's Medication Instructions Recorded apixaban 5 mg tablet (Eliquis) 5 mg PO BID #0 tabs 11/20/21 cetirizine 10 mg tablet 5 mg PO DAILY #0 tabs 11/20/21 nintedanib 150 mg capsule (Ofev) 150 mg PO Q12H #60 caps 12/12/21 Oxygen #1 ea 01/01/22 ibuprofen 400 mg tablet 400 mg PO Q6H PRN pain #20 tabs 08/09/22 prednisone 10 mg tablet 10 mg PO DIRECTED #30 tabs 09/05/22 Allergies Allergy/AdvReac Type Severity Reaction Status Date / Time Sulfa (Sulfonamide AdvReac Intermediate Its been Verified 09/05/22 15:48 Antibiotics) along time cat dander AdvReac Mild Verified 09/05/22 15:48 penicillin V AdvReac Mild nausea Verified 09/05/22 15:48 salicylates AdvReac Mild up set Verified 09/05/22 15:48 stomach voriconazole AdvReac Mild Visual Verified 09/05/22 15:48 Disturbances General Stated Complaint: Orthopedic BRYCE: 4 Review of Systems Narrative: Otherwise healthy, denies injury. No fever. 6 systems were reviewed PFSH All Active Problems (Updated 09/05/22 @ 18:22 by Santiago Phipps MD) Arthritis pain, hand (Acute) Gout attack (Acute) Neuropathy (Acute) Acute dehydration (Acute) Orthostatic hypotension (Acute) Idiopathic pulmonary fibrosis (Acute) Pulmonary hypertension (Acute) Palliative care patient (Acute) PMR (polymyalgia rheumatica) (Acute) Fungal pneumonia (Acute) Acute respiratory failure with hypoxia (Acute) Palliative care patient (Acute) Acute kidney injury superimposed on CKD (Acute) DNR (do not resuscitate) (Acute) Advanced care planning/counseling discussion (Acute) History of pulmonary embolism (Acute) Sleep apnea (Chronic) PAD (peripheral artery disease) (Chronic) Medical History Abdominal aortic aneurysm Acute kidney injury superimposed on chronic kidney disease Anemia, mild BCC (basal cell carcinoma) Bilateral pneumonia BPH (benign prostatic hyperplasia) Chest pain CHF (congestive heart failure) Chronic ethmoidal sinusitis Chronic frontal sinusitis Chronic kidney disease Chronic lower back pain Deviated nasal septum Dilated aortic root Discharge planning issues DVT prophylaxis E coli bacteremia Elevated creatine kinase Fractured rib mid Sept 2018 Generalized osteoarthrosis Gout H/O urinary frequency Headache History of depression History of IBS Hx of colonic polyps Hx of Lyme disease Hx of pyelonephritis Hypertension Hypokalemia Hypothyroidism Kidney stone Lichen planus Lyme disease Nasal septal spur Nasal turbinate hypertrophy On home oxygen therapy Orthostatic dizziness Pain, joint, hip, right Palliative care encounter Parkinsons pt. states he does not have Pneumonia Polymyalgia rheumatica pt. reports he has this not parkinsons Pulmonary emboli Pulmonary fat embolism Pulmonary fibrosis Pulmonary infiltrates Pyelonephritis due to Escherichia coli Restless leg syndrome Severe muscle deconditioning Sinus bradycardia Skin breakdown Trochanteric bursitis Venous insufficiency Surgical History Hx of colonoscopy Hx of inguinal hernia surgery Hx of total hip arthroplasty right Social History Smoking/Tobacco Use Status: Former Tobacco Use Quit Date: 09/08/81 Smoking risk assessment performed?: Yes Alcohol Intake: current Alcohol Intake frequency: 0-2 drinks per day Alcohol type: beer and hard liquor Drug use: Never Substance use type: does not use Do you feel safe at home: Yes Do you feel safe in your relationship?: Yes Additional Social history: Abby alfarotbor/friend [phone] 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 Sister is in area. Exam Narrative Exam Narrative: GEN: awake, alert, oriented 3. Pleasant, well groomed, interactive. HEAD: Normocephalic, atraumatic EYES: PERRL, EOMI NECK: Full ROM, no JUAN PABLO, no menigismus CHEST/RESP: No respiratory distress EXT: Full ROM, bilateral 1+ edema to the feet. The left foot is also ecchymotic on the dorsum and through the base of the toes. Tender throughout. Neuro: Grossly normal neurologic exam, conversant, interactive. Psych: Speech fluent, thoughts congruent, affect normal Course Vital Signs Vital signs: Vital Signs Temperature 36.7 C 09/05/22 15:43 Pulse 106 H 09/05/22 15:43 Respiratory Rate 16 09/05/22 15:43 Blood Pressure 129/83 09/05/22 15:43 Pulse Oximetry 94 09/05/22 15:43 Temperature 37.0 C 09/05/22 16:53 Temperature Source Oral 09/05/22 16:53 Pulse 87 09/05/22 16:53 Respiratory Rate 19 09/05/22 16:53 Respiratory Effort 09/05/22 15:47 Blood Pressure 113/77 09/05/22 16:53 Blood Pressure Position Sitting 09/05/22 15:43 Pulse Oximetry 93 09/05/22 16:53 Oxygen Delivery Method Room Air 09/05/22 16:53 Oxygen Flow Rate 0 09/05/22 16:53 Pain Level 7 09/05/22 16:53 PAWSS Have you Been Recently Intoxicated or Drunk Within the Last 30 days?: No Have you Ever Experienced Previous Episodes of Alcohol Withdrawal?: No Have you ever Experienced Withdrawal Seizures?: No Have you ever Experienced Delirium Tremens(DT)s?: No Have you ever undergone Alcohol Rehabilitation Treatment (i.e, inpt ot outpatient treatment programs)?: No Have you ever Experienced Blackouts?: No Have you ever Combined Alcohol with other Downers within the last 90 days?: No Have you ever Combined Alcohol with any other Substance of Abuse during the last 90 days?: No Result: 0
--- NOTE | 2022-09-05 18:06 | DI.VRAD_ITS ---
PROCEDURE INFORMATION: Exam: XR Left Foot Exam date and time: 09/05/2022 5:41 PM Age: 82 years old Clinical indication: Other: Pain, swelling, bruising TECHNIQUE: Imaging protocol: Radiologic exam of the Left foot. Views: 3 or more views. COMPARISON: 1. CR XR tib/fib LT 06/29/2018 11:23 AM 2. US EXTREMITY VENOUS BI 10/03/2021 3:04 PM 3. CR XR knee LT 4V AP,lat,marylou,pat 10/15/2018 11:28 AM FINDINGS: Bones/joints: There is a small inferior calcaneal spur. There is a small Achilles tendon spur. Soft tissues: There is soft tissue swelling at the dorsum of the foot. IMPRESSION: Calcaneal spurs. No evidence of a fracture or a dislocation. Soft tissue swelling at the level of the dorsum of the foot. Dictated and Authenticated by: Hema Chu MD. Ordering:DARIUS Henderson MD
[2022-09-05] MEDS: predniSONE 40 MG, predniSONE 10 MG 50 MG PO (18:25)
--- NOTE | 2022-09-05 18:26 | NUR.NOTE ---
Nursing Note: Referral faxed to PCP for gout flare; in 2 weeks.
== END 2022-09-05 18:28 | disposition home or self-care (01) ==
PROVIDERS: Emergency Provider Emergency Medicine; PCP Family Medicine
DX: M10.072 Idiopathic gout, left ankle and foot (principal)
CPT/HCPCS: 99283; 73630; J7512

== ENCOUNTER 2022-09-13 17:56 | Emergency (ER) | payer MEDICARE, SELFPAY ==
[2022-09-13 18:00] VITALS: BP 138/90; PULSE 70; RESP 18; TEMP 36.7; O2SAT 97
--- NOTE | 2022-09-13 18:28 | ED.GENADUL_ITS ---
Discharge Plan Disposition Patient Disposition: Home Condition: Stable Discharge Details Clinical Impression: Laceration of fernandez, Chronic anticoagulation Primary Care Provider: Thang Hernandez ED Provider: Almaz Pena Home Meds and New Rx's Prescriptions: Continued furosemide [Lasix] 40 mg tablet 60 mg PO DAILY vitamin B complex Tablet 1 tab PO DAILY Ofev 150 mg capsule 150 mg PO Q12H Qty: 60 12RF pantoprazole 40 mg tablet,delayed release (DR/EC) 40 mg PO DAILY Breztri Aerosphere 160-9-4.8 mcg/actuation HFA aerosol inhaler 2 inh inhalation BID nitroglycerin [Nitrostat] 0.4 mg tablet, sublingual 0.4 mg SL Q5-15M PRN albuterol sulfate [ProAir HFA] 90 mcg/actuation HFA aerosol inhaler 2 puff IH Q6H PRN Label Comments: 2 puffs PO every 4 hrs PRN per [facility] (DME) Oxygen Tank See Rx Instructions .Route Qty: 1 0RF Rx Instructions: 3Lpm at rest continuous via Nasal Cannula and 8Lpm during exertion continuous via Nasal Cannula Dandruff Shampoo (selenium) 1 % shampoo 1 applic topical QWEEK Rx Instructions: massage into affected area; leave on for 10 mins ; rinse off thoroughly 1-2 x a week fluticasone propionate [Allergy Relief (fluticasone)] 50 mcg/actuation spray,suspension 1 spray intranasal BID Rx Instructions: administer into each nostril acetaminophen [Tylenol Extra Strength] 500 mg tablet 500 mg PO Q4H PRN Label Comments: 1 tab PO every 4 hrs PRN per [facility] potassium chloride [Klor-Con M20] 20 mEq tablet,ER particles/crystals 10 meq PO BID prednisone 2.5 mg tablet 7.5 mg PO DAILY midodrine 2.5 mg tablet 5 mg PO TID ibuprofen 400 mg tablet 400 mg PO Q6H PRN (Reason: pain) Qty: 20 0RF prednisone 10 mg tablet 10 mg PO DIRECTED Qty: 30 0RF Rx Instructions: 40 mg daily for 3 days, then 30 mg daily for 3 days, then 20 mg daily for 3 days, then 10 mg daily for 3 days, then return to normal daily dose. levothyroxine 75 MCG tablet 75 mcg PO DAILY ropinirole 2 MG tablet 2 mg PO HS sertraline 25 mg tablet 25 mg PO DAILY Label Comments: TAKE 1 TABLET BY MOUTH EVERY DAY finasteride 5 mg tablet 5 mg PO DAILY Label Comments: TAKE 1 TABLET BY MOUTH EVERY DAY tamsulosin 0.4 mg capsule 0.8 mg PO DAILY Label Comments: Take 2 capsule by mouth once a day montelukast 10 mg tablet 10 mg PO DAILY Label Comments: TAKE 1 TABLET BY MOUTH DAILY cetirizine 10 mg Tablet 5 mg PO DAILY Qty: 0 0RF Eliquis 5 mg Tablet 5 mg PO BID Qty: 0 0RF Bio-K plus 50 billion cell capsule,delayed release(DR/EC) 1 cap PO DAILY Label Comments: 1 cap PO TID x 2 months (starting 11/20/21) per [facility] Discharge Instructions Instructions: Laceration (ED) Additional Instructions: Elevate Tylenol as needed for pain Continue on your antibiotics Suture removal in 12 days recommended Change dressing every 2 days Return earlier should you have new or worsening complaints Follow-up your primary care physician on Friday for reassessment Referrals: Thang Hernandez MD [Primary Care Provider] - Discharge Data Discharge Date/Time-TO BE ENTERED AT DEPARTURE: 09/13/22 19:19 Medical Decision Making This 82-year-old gentleman presents for history of chronic anticoagulation with bleeding laceration to left fernandez Secondary to persistent bleeding, sutures were placed, patient is on antibiotics, he will continue to take these for his diagnosed previously cellulitis to his leg Sutures will need to be removed in 10 to 12 days He will elevate it and observe for infection Return precautions reviewed and patient expressed understanding Bleeding controlled at time of discharge home Medical Records Medical records reviewed: Yes I reviewed the patient's medical records. HPI General Date/Time Provider Initiated Documentation: 09/13/22 18:24 . HPI Narrative: This 82-year-old gentleman with chronic anticoagulation secondary to pulmonary embolism presents with report of injury to left fernandez, bumped on table.. He was seen at urgent care prior to arrival and was sent here secondary to persistent bleeding. He denies any additional injuries. He was assessed earlier this week for gouty flare and took colchicine with mild improvement of pain. He has persistent but not worsening ecchymosis to the affected extremity. Event occurred just prior to arrival. Related Data Home Medications Medication Instructions Recorded Confirmed levothyroxine 75 mcg tablet 75 mcg PO DAILY 12/03/16 09/05/22 ropinirole 2 mg tablet 2 mg PO HS 12/03/16 09/05/22 nitroglycerin 0.4 mg sublingual 0.4 mg sublingual Q5-15M PRN 07/30/19 09/05/22 tablet (Nitrostat) finasteride 5 mg tablet 5 mg PO DAILY 08/27/21 09/05/22 sertraline 25 mg tablet 25 mg PO DAILY 08/27/21 09/05/22 montelukast 10 mg tablet 10 mg PO DAILY 10/24/21 09/05/22 tamsulosin 0.4 mg capsule 0.8 mg PO DAILY 10/24/21 09/05/22 apixaban 5 mg tablet (Eliquis) 5 mg PO BID #0 tabs 11/20/21 09/05/22 cetirizine 10 mg tablet 5 mg PO DAILY #0 tabs 11/20/21 09/05/22 L. acidophilus,casei,rhamnosus 50 1 cap PO DAILY 12/12/21 09/05/22 billion cell capsule,delayed release (Bio-K plus) albuterol sulfate 90 mcg/actuation 2 puff inhalation Q6H PRN 12/12/21 09/05/22 aerosol inhaler (ProAir HFA) nintedanib 150 mg capsule (Ofev) 150 mg PO Q12H #60 caps 12/12/21 09/05/22 vitamin B complex 1 tab PO DAILY 12/12/21 09/05/22 Oxygen #1 ea 01/01/22 09/05/22 furosemide 40 mg tablet (Lasix) 60 mg PO DAILY 01/03/22 09/05/22 budesonide 160 mcg-glycopyr 9 2 inh inhalation BID 07/30/22 09/05/22 mcg-formot 4.8 mcg/actuation HFA inhaler (Breztri Aerosphere) pantoprazole 40 mg tablet,delayed 40 mg PO DAILY 07/30/22 09/05/22 release acetaminophen 500 mg tablet 500 mg PO Q4H PRN 08/06/22 09/05/22 (Tylenol Extra Strength) fluticasone propionate 50 1 spray intranasal BID 08/06/22 09/05/22 mcg/actuation nasal spray,suspension (Allergy Relief (fluticasone)) midodrine 2.5 mg tablet 5 mg PO TID 08/06/22 09/05/22 potassium chloride 20 mEq 10 meq PO BID 08/06/22 09/05/22 tablet,extended release(part/cryst) (Klor-Con M) prednisone 2.5 mg tablet 7.5 mg PO DAILY 08/06/22 09/05/22 selenium sulfide 1 % shampoo 1 applic topical QWEEK 08/06/22 09/05/22 (Dandruff Shampoo (selenium sulfide)) ibuprofen 400 mg tablet 400 mg PO Q6H PRN pain #20 tabs 08/09/22 09/05/22 prednisone 10 mg tablet 10 mg PO DIRECTED #30 tabs 09/05/22 Previous Rx's Medication Instructions Recorded apixaban 5 mg tablet (Eliquis) 5 mg PO BID #0 tabs 11/20/21 cetirizine 10 mg tablet 5 mg PO DAILY #0 tabs 11/20/21 nintedanib 150 mg capsule (Ofev) 150 mg PO Q12H #60 caps 12/12/21 Oxygen #1 ea 01/01/22 ibuprofen 400 mg tablet 400 mg PO Q6H PRN pain #20 tabs 08/09/22 prednisone 10 mg tablet 10 mg PO DIRECTED #30 tabs 09/05/22 Allergies Allergy/AdvReac Type Severity Reaction Status Date / Time Sulfa (Sulfonamide AdvReac Intermediate Its been Verified 09/13/22 18:08 Antibiotics) along time cat dander AdvReac Mild Verified 09/13/22 18:08 penicillin V AdvReac Mild nausea Verified 09/13/22 18:08 salicylates AdvReac Mild up set Verified 09/13/22 18:08 stomach voriconazole AdvReac Mild Visual Verified 09/13/22 18:08 Disturbances General Stated Complaint: Cellulitis BRYCE: 3 Review of Systems Narrative: Review of systems obtained x7 and negative aside from medication HPI PFSH All Active Problems (Updated 09/13/22 @ 19:02 by ZHEN Levine) Gout attack (Acute) Laceration of fernandez (Acute) Chronic anticoagulation (Acute) Neuropathy (Acute) Acute dehydration (Acute) Orthostatic hypotension (Acute) Idiopathic pulmonary fibrosis (Acute) Pulmonary hypertension (Acute) Palliative care patient (Acute) PMR (polymyalgia rheumatica) (Acute) Fungal pneumonia (Acute) Acute respiratory failure with hypoxia (Acute) Palliative care patient (Acute) Acute kidney injury superimposed on CKD (Acute) DNR (do not resuscitate) (Acute) Advanced care planning/counseling discussion (Acute) History of pulmonary embolism (Acute) Sleep apnea (Chronic) PAD (peripheral artery disease) (Chronic) Medical History Abdominal aortic aneurysm Acute kidney injury superimposed on chronic kidney disease Anemia, mild BCC (basal cell carcinoma) Bilateral pneumonia BPH (benign prostatic hyperplasia) Chest pain CHF (congestive heart failure) Chronic ethmoidal sinusitis Chronic frontal sinusitis Chronic kidney disease Chronic lower back pain Deviated nasal septum Dilated aortic root Discharge planning issues DVT prophylaxis E coli bacteremia Elevated creatine kinase Fractured rib mid May 2019 Generalized osteoarthrosis Gout H/O urinary frequency Headache History of depression History of IBS Hx of colonic polyps Hx of Lyme disease Hx of pyelonephritis Hypertension Hypokalemia Hypothyroidism Kidney stone Lichen planus Lyme disease Nasal septal spur Nasal turbinate hypertrophy On home oxygen therapy Orthostatic dizziness Pain, joint, hip, right Palliative care encounter Parkinsons pt. states he does not have Pneumonia Polymyalgia rheumatica pt. reports he has this not parkinsons Pulmonary emboli Pulmonary fat embolism Pulmonary fibrosis Pulmonary infiltrates Pyelonephritis due to Escherichia coli Restless leg syndrome Severe muscle deconditioning Sinus bradycardia Skin breakdown Trochanteric bursitis Venous insufficiency Surgical History Hx of colonoscopy Hx of inguinal hernia surgery Hx of total hip arthroplasty right Social History Smoking/Tobacco Use Status: Former Tobacco Use Quit Date: 09/08/81 Smoking risk assessment performed?: Yes Alcohol Intake: current Alcohol Intake frequency: 0-2 drinks per day Alcohol type: beer and hard liquor Drug use: Never Substance use type: does not use Do you feel safe at home: Yes Do you feel safe in your relationship?: Yes Additional Social history: Abby alfarotbor/friend [phone] 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 Sister is in area. Exam Const General: cooperative, comfortable and no acute distress Orientation: alert and oriented x3 Extrem Other: Ecchymosis noted to left foot, dopplerable pulses to dorsalis pedis and posterior tibialis pulses, approximately 1.5 inch laceration noted to fernandez, active oozing of blood noted, Course Vital Signs Vital signs: Vital Signs Temperature 36.7 C 09/13/22 18:00 Pulse 70 09/13/22 18:00 Respiratory Rate 18 09/13/22 18:00 Blood Pressure 138/90 09/13/22 18:00 Pulse Oximetry 97 09/13/22 18:00 Temperature 36.7 C 09/13/22 18:00 Temperature Source Skin 09/13/22 18:00 Pulse 70 09/13/22 18:00 Respiratory Rate 18 09/13/22 18:00 Respiratory Effort 09/13/22 18:09 Blood Pressure 138/90 09/13/22 18:00 Blood Pressure Position Sitting 09/13/22 18:00 Pulse Oximetry 97 09/13/22 18:00 Oxygen Delivery Method Room Air 09/13/22 18:00 Oxygen Flow Rate 0 09/13/22 18:00 Pain Level 10 09/13/22 18:00 Procedures Laceration Laceration 1: Site: lower extremity Side (If applicable): left Size (cm): 4 Description: linear Depth: simple, single layer Local Anesthetic: Lidocaine 1% and with Epi Amount of anesthesia used (mL): 5 Pre-repair: wound explored and irrigated extensively Skin layer closed with: nylon Size (cm): 4-0 Number of sutures: 4 Technique: horizontal mattress
[2022-09-13 19:17] VITALS: BP 148/90; PULSE 96; RESP 18; O2SAT 98
== END 2022-09-13 19:19 | disposition home or self-care (01) ==
PROVIDERS: Emergency Provider Physician Assistant; PCP Family Medicine
DX: S81.812A Laceration without foreign body, left lower leg, initial encounter (principal); I13.0 Hypertensive heart and chronic kidney disease with heart failure and stage 1 through stage 4 chronic kidney disease, or unspecified chronic kidney disease; I50.9 Heart failure, unspecified; N18.9 Chronic kidney disease, unspecified; Z86.711 Personal history of pulmonary embolism; Z79.01 Long term (current) use of anticoagulants; W22.03XA Walked into furniture, initial encounter
CPT/HCPCS: 12002; 99283

== ENCOUNTER 2022-09-18 17:06 | Outpatient (REF) | payer MEDICARE, SELFPAY ==
[2022-09-18 22:02] LABS: Anion Gap 11.5 mmol/L (3-11); BUN 45 mg/dL (7-18); CO2 27.5 mmol/L (21.0-32.0); CREATININE 2.6 mg/dL (0.70-1.30); Chloride 99 mmol/L (98-107); Estimated GFR 23.87 (mL/min/1.73m2); Glucose 165 mg/dL (74-106); Potassium 3.7 mmol/L (3.5-5.1); Sodium 138 mmol/L (136-145); Uric Acid 11.7 mg/dL (3.5-7.2)
== END 2022-09-18 17:07 | disposition home or self-care (01) ==
LOC: NCHCN 17:06
PROVIDERS: PCP Family Medicine; Visit Provider Family Medicine
DX: I10 Essential (primary) hypertension (principal); M10.9 Gout, unspecified
CPT/HCPCS: 80048; 84550

== ENCOUNTER → 2022-09-23 13:17 | Outpatient (BNVA) | payer MEDICARE, SELFPAY | PROVIDERS: PCP Family Medicine; Referring Provider Family Medicine; Visit Provider Surgery | DX: S91.302A Unspecified open wound, left foot, initial encounter (principal); X58.XXXA Exposure to other specified factors, initial encounter; I87.2 Venous insufficiency (chronic) (peripheral); I70.25 Atherosclerosis of native arteries of other extremities with ulceration; M25.572 Pain in left ankle and joints of left foot | CPT/HCPCS: 11043; 99215; 99244 ==

== ENCOUNTER 2022-09-25 13:19 | Emergency (ER) | payer MEDICARE, SELFPAY ==
[2022-09-25 13:07] VITALS: BP 151/86; PULSE 85; RESP 17; TEMP 37.2; O2SAT 97
--- NOTE | 2022-09-25 13:23 | ED.GENADUL_ITS ---
Discharge Plan Disposition Patient Disposition: Home Condition: Stable Discharge Details Clinical Impression: Bleeding from wound Primary Care Provider: Thang Hernandez ED Provider: Haritha Garland Home Meds and New Rx's Prescriptions: No Action furosemide [Lasix] 40 mg tablet 60 mg PO DAILY vitamin B complex Tablet 1 tab PO DAILY Ofev 150 mg capsule 150 mg PO Q12H Qty: 60 12RF pantoprazole 40 mg tablet,delayed release (DR/EC) 40 mg PO DAILY Breztri Aerosphere 160-9-4.8 mcg/actuation HFA aerosol inhaler 2 inh inhalation BID nitroglycerin [Nitrostat] 0.4 mg tablet, sublingual 0.4 mg SL Q5-15M PRN albuterol sulfate [ProAir HFA] 90 mcg/actuation HFA aerosol inhaler 2 puff IH Q6H PRN Label Comments: 2 puffs PO every 4 hrs PRN per [facility] (DME) Oxygen Tank See Rx Instructions .Route Qty: 1 0RF Rx Instructions: 3Lpm at rest continuous via Nasal Cannula and 8Lpm during exertion continuous via Nasal Cannula Dandruff Shampoo (selenium) 1 % shampoo 1 applic topical QWEEK Rx Instructions: massage into affected area; leave on for 10 mins ; rinse off thoroughly 1-2 x a week fluticasone propionate [Allergy Relief (fluticasone)] 50 mcg/actuation spray,suspension 1 spray intranasal BID Rx Instructions: administer into each nostril acetaminophen [Tylenol Extra Strength] 500 mg tablet 500 mg PO Q4H PRN Label Comments: 1 tab PO every 4 hrs PRN per [place] potassium chloride [Klor-Con M20] 20 mEq tablet,ER particles/crystals 10 meq PO BID prednisone 2.5 mg tablet 7.5 mg PO DAILY midodrine 2.5 mg tablet 5 mg PO TID Santyl 250 unit/gram ointment 1 applic topical DAILY Qty: 30 2RF Rx Instructions: Apply thin coating of Santyl ointment to open wounds. Cover with bandage. Change daily. ibuprofen 400 mg tablet 400 mg PO Q6H PRN (Reason: pain) Qty: 20 0RF prednisone 10 mg tablet 10 mg PO DIRECTED Qty: 30 0RF Rx Instructions: 40 mg daily for 3 days, then 30 mg daily for 3 days, then 20 mg daily for 3 days, then 10 mg daily for 3 days, then return to normal daily dose. levothyroxine 75 MCG tablet 75 mcg PO DAILY ropinirole 2 MG tablet 2 mg PO HS sertraline 25 mg tablet 25 mg PO DAILY Label Comments: TAKE 1 TABLET BY MOUTH EVERY DAY finasteride 5 mg tablet 5 mg PO DAILY Label Comments: TAKE 1 TABLET BY MOUTH EVERY DAY tamsulosin 0.4 mg capsule 0.8 mg PO DAILY Label Comments: Take 2 capsule by mouth once a day montelukast 10 mg tablet 10 mg PO DAILY Label Comments: TAKE 1 TABLET BY MOUTH DAILY cetirizine 10 mg Tablet 5 mg PO DAILY Qty: 0 0RF Eliquis 5 mg Tablet 5 mg PO BID Qty: 0 0RF Bio-K plus 50 billion cell capsule,delayed release(DR/EC) 1 cap PO DAILY Label Comments: 1 cap PO TID x 2 months (starting 11/20/21) per [place] Discharge Instructions Instructions: Chronic Wound Care (ED) Additional Instructions: Keep the Surgicel dressing in place for at least 48 hours. When you take the dressing off soak it in water prior to taking it off very gently. Keep your appointment on Friday with Dr. Polanco as previously scheduled. Follow-up with general surgery return to the ER for any recurrent bleeding or return to the office. He may call her office in the morning to see if they want to see you sooner. Sutures are not healed yet please be seen on Friday. Continue your antibiotics. Referrals: Thang Hernandez MD [Primary Care Provider] - 1 week Natasha Polanco DO [OSTEOPATHIC DOCTOR] - 3 days Discharge Data Discharge Date/Time-TO BE ENTERED AT DEPARTURE: 09/25/22 16:24 Medical Decision Making 82-year-old male with past medical history of CHF, chronic kidney disease, Parkinson's on Eliquis DVT prophylaxis, hypothyroidism who is a palliative care patient is DNR/DNI presents via EMS with a bleeding left lower extremity wound. According to report patient had a wound to his left lower extremity cleaned on Friday and debrided be general surgery. Home health came today wound was bleeding and they cannot get it to stop. Patient denies any dizziness lightheadedness he is hemodynamically stable blood pressure within normal limits labs at this time or not order there is no tachycardia. Dressing was removed which was saturated in blood, there is a continuous venous ooze noted to a small circular lesion to the anterior distal part of the fernandez. This is just medial to a sutured laceration which sutures were placed approximately 12 days ago here in the ER. There is some erythema and tenderness with palpation of the laceration. Patient is currently on cephalexin. 1342: Surgicel applied to the wound which was debrided on Friday at the general surgeon's office. 4 x 4's and Everette wrap applied. We will recheck in approximately 10 to 15 minutes. TXA is at bedside if needed. 1449: No further bleeding through the dressing at this time. 1600: Patient was observed in the ER and remained hemodynamically stable throughout the entire stay. At this time the wound has clotted off no continued bleeding area was redressed by staff nurse icu resource team patient was given instructions to leave in place for 24 to 48 hours and or until he can be seen again on Friday. Sutures were left in place for additional healing time. Was able to consult with Dr. Polanco she does recommend leaving the sutures in place at this time. She also recommends to return to the clinic sooner if bleeding reoccurs. Patient and staff attempting to get a hold of patient's sister to transport him back home. This text was generated using [employer] dictation system, please disregard any oddities of phrase or misspellings. Medical Records Medical records reviewed: Yes I reviewed the patient's medical records. Medical records narrative: Patient had sutures placed here in the ER on September 13 after dropping a piece of furniture on his foot and having a laceration. Please see previous note) procedure note. He does have horizontal mattress sutures noted to the wound, no bleeding or drainage noted. No evidence of infection. I will remove the sutures while he is here. HPI General Mode of arrival: EMS . Date/Time Provider Initiated Documentation: 09/25/22 13:36 . Limitations to Documentation: no limitations . Information obtained by: patient, EMS, RN notes reviewed and old records reviewed . HPI Narrative: 82-year-old male with past medical history of CHF, chronic kidney disease, Parkinson's on Eliquis DVT prophylaxis, hypothyroidism who is a palliative care patient is DNR/DNI presents via EMS with a bleeding left lower extremity wound. According to report patient had a wound to his left lower extremity cleaned on Friday and debrided be general surgery. Home health came today wound was bleeding and they cannot get it to stop. Dressing was changed by staff nurse icu resource team upon arrival which was saturated in blood. He does have a also history of skin breakdown venous sufficiency PE also has a Mepilex dressing noted to the dorsum of his left foot. Patient was seen by general surgery in the office 2 days ago lidocaine was administered at that time and wounds were clean. Related Data Home Medications Medication Instructions Recorded Confirmed levothyroxine 75 mcg tablet 75 mcg PO DAILY 12/03/16 09/25/22 ropinirole 2 mg tablet 2 mg PO HS 12/03/16 09/25/22 nitroglycerin 0.4 mg sublingual 0.4 mg sublingual Q5-15M PRN 07/30/19 09/25/22 tablet (Nitrostat) finasteride 5 mg tablet 5 mg PO DAILY 08/27/21 09/25/22 sertraline 25 mg tablet 25 mg PO DAILY 08/27/21 09/25/22 montelukast 10 mg tablet 10 mg PO DAILY 10/24/21 09/25/22 tamsulosin 0.4 mg capsule 0.8 mg PO DAILY 10/24/21 09/25/22 apixaban 5 mg tablet (Eliquis) 5 mg PO BID #0 tabs 11/20/21 09/25/22 cetirizine 10 mg tablet 5 mg PO DAILY #0 tabs 11/20/21 09/25/22 L. acidophilus,casei,rhamnosus 50 1 cap PO DAILY 12/12/21 09/25/22 billion cell capsule,delayed release (Bio-K plus) albuterol sulfate 90 mcg/actuation 2 puff inhalation Q6H PRN 12/12/21 09/25/22 aerosol inhaler (ProAir HFA) nintedanib 150 mg capsule (Ofev) 150 mg PO Q12H #60 caps 12/12/21 09/25/22 vitamin B complex 1 tab PO DAILY 12/12/21 09/25/22 Oxygen #1 ea 01/01/22 09/25/22 furosemide 40 mg tablet (Lasix) 60 mg PO DAILY 01/03/22 09/25/22 budesonide 160 mcg-glycopyr 9 2 inh inhalation BID 07/30/22 09/25/22 mcg-formot 4.8 mcg/actuation HFA inhaler (Breztri Aerosphere) pantoprazole 40 mg tablet,delayed 40 mg PO DAILY 07/30/22 09/25/22 release acetaminophen 500 mg tablet 500 mg PO Q4H PRN 08/06/22 09/25/22 (Tylenol Extra Strength) fluticasone propionate 50 1 spray intranasal BID 08/06/22 09/25/22 mcg/actuation nasal spray,suspension (Allergy Relief (fluticasone)) midodrine 2.5 mg tablet 5 mg PO TID 08/06/22 09/25/22 potassium chloride 20 mEq 10 meq PO BID 08/06/22 09/25/22 tablet,extended release(part/cryst) (Klor-Con M) prednisone 2.5 mg tablet 7.5 mg PO DAILY 08/06/22 09/25/22 selenium sulfide 1 % shampoo 1 applic topical QWEEK 08/06/22 09/25/22 (Dandruff Shampoo (selenium sulfide)) ibuprofen 400 mg tablet 400 mg PO Q6H PRN pain #20 tabs 08/09/22 09/25/22 prednisone 10 mg tablet 10 mg PO DIRECTED #30 tabs 09/05/22 09/25/22 collagenase clostridium histo. 250 1 applic topical DAILY wound #30 09/25/22 09/25/22 unit/gram topical ointment (Santyl) grams Previous Rx's Medication Instructions Recorded apixaban 5 mg tablet (Eliquis) 5 mg PO BID #0 tabs 11/20/21 cetirizine 10 mg tablet 5 mg PO DAILY #0 tabs 11/20/21 nintedanib 150 mg capsule (Ofev) 150 mg PO Q12H #60 caps 12/12/21 Oxygen #1 ea 01/01/22 ibuprofen 400 mg tablet 400 mg PO Q6H PRN pain #20 tabs 08/09/22 prednisone 10 mg tablet 10 mg PO DIRECTED #30 tabs 09/05/22 collagenase clostridium histo. 250 1 applic topical DAILY wound #30 09/25/22 unit/gram topical ointment (Santyl) grams Allergies Allergy/AdvReac Type Severity Reaction Status Date / Time Sulfa (Sulfonamide AdvReac Intermediate Its been Verified 09/25/22 13:17 Antibiotics) along time cat dander AdvReac Mild Verified 09/25/22 13:17 penicillin V AdvReac Mild nausea Verified 09/25/22 13:17 salicylates AdvReac Mild up set Verified 09/25/22 13:17 stomach voriconazole AdvReac Mild Visual Verified 09/25/22 13:17 Disturbances General Stated Complaint: Laceration BRYCE: 4 Review of Systems All systems reviewed & are unremarkable except as noted in HPI and below ENT Ears, Nose, Mouth, and Throat: Denies dizziness Cardiovascular Cardiovascular: Denies syncope and Denies rapid heart rate Integumentary/Breasts Skin/Breast: Reports as per HPI, Reports unusual bruising and Reports wounds (Bleeding recently debrided wound) Neurologic Neurologic: Denies confusion, Denies dizziness, Denies syncope and Denies localized weakness Psychiatric Psychiatric: Denies confusion PFSH All Active Problems (Updated 09/25/22 @ 16:09 by Haritha Garland NP) Bleeding from wound (Acute) Ankle pain, chronic (Acute) Acute arthritis (Acute) Cellulitis (Acute) Pain in left foot (Acute) Anticoagulated (Acute) Gout attack (Acute) Laceration of fernandez (Acute) Chronic anticoagulation (Acute) Neuropathy (Acute) Acute dehydration (Acute) Orthostatic hypotension (Acute) Idiopathic pulmonary fibrosis (Acute) Pulmonary hypertension (Acute) Palliative care patient (Acute) PMR (polymyalgia rheumatica) (Acute) Fungal pneumonia (Acute) Acute respiratory failure with hypoxia (Acute) Palliative care patient (Acute) Acute kidney injury superimposed on CKD (Acute) DNR (do not resuscitate) (Acute) Advanced care planning/counseling discussion (Acute) History of pulmonary embolism (Acute) Sleep apnea (Chronic) PAD (peripheral artery disease) (Chronic) Medical History (Updated 09/25/22 @ 16:09 by Haritha Garland NP) Abdominal aortic aneurysm Acute kidney injury superimposed on chronic kidney disease Anemia, mild BCC (basal cell carcinoma) Bilateral pneumonia BPH (benign prostatic hyperplasia) Chest pain CHF (congestive heart failure) Chronic ethmoidal sinusitis Chronic frontal sinusitis Chronic kidney disease Chronic lower back pain Deviated nasal septum Dilated aortic root Discharge planning issues DVT prophylaxis E coli bacteremia Elevated creatine kinase Fractured rib mid May 2019 Generalized osteoarthrosis Gout H/O urinary frequency Headache History of depression History of IBS Hx of colonic polyps Hx of Lyme disease Hx of pyelonephritis Hypertension Hypokalemia Hypothyroidism Kidney stone Lichen planus Lyme disease Nasal septal spur Nasal turbinate hypertrophy Neck pain On home oxygen therapy Orthostatic dizziness Pain, joint, hip, right Palliative care encounter Parkinsons pt. states he does not have Pneumonia Polymyalgia rheumatica pt. reports he has this not parkinsons Pulmonary emboli Pulmonary fat embolism Pulmonary fibrosis Pulmonary infiltrates Pyelonephritis due to Escherichia coli Restless leg syndrome Severe muscle deconditioning Sinus bradycardia Skin breakdown Trochanteric bursitis Venous insufficiency Surgical History Hx of colonoscopy Hx of inguinal hernia surgery Hx of total hip arthroplasty right Social History Smoking/Tobacco Use Status: Former Tobacco Use Quit Date: 09/08/81 Smoking risk assessment performed?: Yes Alcohol Intake: current Alcohol Intake frequency: 0-2 drinks per day Alcohol type: beer and hard liquor Drug use: Never Substance use type: does not use Do you feel safe at home: Yes Do you feel safe in your relationship?: Yes Additional Social history: Abby alfarotbor/friend [phone] 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 Sister is in area. Exam Extrem Upper/lower leg/hip images: 1. Sutured lacerated, Moderately approximated with horizontal mattress sutures in place, there is some erythema and tenderness surrounding this, no drainage. Still un-healed at the proximal end. 2. Mepilex dressing in place 3. Several areas of ecchymosis noted to the left foot, 2+ pitting edema bilaterally lower extremities. Appears chronic. Ankle/foot/toe images: 1. Approximately 1 cm x 1 cm lesion noted to the anterior aspect of the distal left fernandez, there is a continuous venous ooze noted. It is saturated through dressing that were applied upon arrival. Course Vital Signs Vital signs: Vital Signs Temperature 37.2 C 09/25/22 13:07 Pulse 85 09/25/22 13:07 Respiratory Rate 17 09/25/22 13:07 Blood Pressure 151/86 H 09/25/22 13:07 Pulse Oximetry 97 09/25/22 13:07 Temperature 37.2 C 09/25/22 13:07 Temperature Source Oral 09/25/22 13:07 Pulse 85 09/25/22 13:07 Respiratory Rate 17 09/25/22 13:07 Respiratory Effort 09/25/22 13:15 Blood Pressure 151/86 H 09/25/22 13:07 Blood Pressure Position Sitting 09/25/22 13:07 Pulse Oximetry 97 09/25/22 13:07 Oxygen Delivery Method Room Air 09/25/22 13:07 Oxygen Flow Rate 0 09/25/22 13:07 Pain Level 0 09/25/22 13:18 Procedures Other Description: Bleeding controlled with Surgicel dressing observation. Procedure was successful no additional interventions needed. PAWSS Have you Been Recently Intoxicated or Drunk Within the Last 30 days?: No Have you Ever Experienced Previous Episodes of Alcohol Withdrawal?: No Have you ever Experienced Withdrawal Seizures?: No Have you ever Experienced Delirium Tremens(DT)s?: No Have you ever undergone Alcohol Rehabilitation Treatment (i.e, inpt ot outpatient treatment programs)?: No Have you ever Experienced Blackouts?: No Have you ever Combined Alcohol with other Downers within the last 90 days?: No Have you ever Combined Alcohol with any other Substance of Abuse during the last 90 days?: No Result: 0
[2022-09-25] MEDS: Cellulose,Oxidized 2X3 PKT 1 EACH MC (13:44)
== END 2022-09-25 16:24 | disposition home or self-care (01) ==
PROVIDERS: Emergency Provider Registered Nurse Emergency; PCP Family Medicine
DX: M96.830 Postprocedural hemorrhage of a musculoskeletal structure following a musculoskeletal system procedure (principal); S81.802A Unspecified open wound, left lower leg, initial encounter; I13.0 Hypertensive heart and chronic kidney disease with heart failure and stage 1 through stage 4 chronic kidney disease, or unspecified chronic kidney disease; I50.9 Heart failure, unspecified; N18.9 Chronic kidney disease, unspecified; G20 Parkinson's disease; E03.9 Hypothyroidism, unspecified; Z86.718 Personal history of other venous thrombosis and embolism; Z79.01 Long term (current) use of anticoagulants; Z79.51 Long term (current) use of inhaled steroids; Z66 Do not resuscitate; W20.8XXA Other cause of strike by thrown, projected or falling object, initial encounter
CPT/HCPCS: 99282

== ENCOUNTER 2022-09-29 14:33 | Emergency (ER) | payer MEDICARE, SELFPAY ==
[2022-09-29] VITALS (22 sets, daily range): BP systolic 107–141; BP diastolic 69–85; PULSE 70–92; RESP 18; TEMP 36.3; O2SAT 96–100
[2022-09-29] MEDS: Tranexamic Acid 1,000 MG/10 ML VIAL 1000 MG (15:51)
--- NOTE | 2022-09-29 17:09 | ED.GENADUL_ITS ---
Discharge Plan Disposition Patient Disposition: Home Condition: Stable Discharge Details Clinical Impression: Bleeding from wound Primary Care Provider: Thang Hernandez ED Provider: Zhao Camarillo Home Meds and New Rx's Prescriptions: Continued furosemide [Lasix] 40 mg tablet 60 mg PO DAILY vitamin B complex Tablet 1 tab PO DAILY Ofev 150 mg capsule 150 mg PO Q12H Qty: 60 12RF pantoprazole 40 mg tablet,delayed release (DR/EC) 40 mg PO DAILY Breztri Aerosphere 160-9-4.8 mcg/actuation HFA aerosol inhaler 2 inh inhalation BID nitroglycerin [Nitrostat] 0.4 mg tablet, sublingual 0.4 mg SL Q5-15M PRN albuterol sulfate [ProAir HFA] 90 mcg/actuation HFA aerosol inhaler 2 puff IH Q6H PRN Label Comments: 2 puffs PO every 4 hrs PRN per [facility] (DME) Oxygen Tank See Rx Instructions .Route Qty: 1 0RF Rx Instructions: 3Lpm at rest continuous via Nasal Cannula and 8Lpm during exertion continuous via Nasal Cannula fluticasone propionate [Allergy Relief (fluticasone)] 50 mcg/actuation spray,suspension 1 spray intranasal BID Rx Instructions: administer into each nostril acetaminophen [Tylenol Extra Strength] 500 mg tablet 500 mg PO Q4H PRN Label Comments: 1 tab PO every 4 hrs PRN per [facility] potassium chloride [Klor-Con M20] 20 mEq tablet,ER particles/crystals 10 meq PO BID prednisone 2.5 mg tablet 7.5 mg PO DAILY midodrine 2.5 mg tablet 5 mg PO TID Santyl 250 unit/gram ointment 1 applic topical DAILY Qty: 30 2RF Rx Instructions: Apply thin coating of Santyl ointment to open wounds. Cover with bandage. Change daily. ibuprofen 400 mg tablet 400 mg PO Q6H PRN (Reason: pain) Qty: 20 0RF levothyroxine 75 MCG tablet 75 mcg PO DAILY ropinirole 2 MG tablet 2 mg PO HS sertraline 25 mg tablet 25 mg PO DAILY Label Comments: TAKE 1 TABLET BY MOUTH EVERY DAY finasteride 5 mg tablet 5 mg PO DAILY Label Comments: TAKE 1 TABLET BY MOUTH EVERY DAY tamsulosin 0.4 mg capsule 0.8 mg PO DAILY Label Comments: Take 2 capsule by mouth once a day montelukast 10 mg tablet 10 mg PO DAILY Label Comments: TAKE 1 TABLET BY MOUTH DAILY cetirizine 10 mg Tablet 5 mg PO DAILY Qty: 0 0RF Bio-K plus 50 billion cell capsule,delayed release(DR/EC) 1 cap PO DAILY Label Comments: 1 cap PO TID x 2 months (starting 11/20/21) per Bharat TIDWELL Held Eliquis 5 mg Tablet 5 mg PO BID Qty: 0 0RF Hold Instructions: Resume on 09/30/22. Discharge Instructions Additional Instructions: Please hold your Eliquis dose tonight. Please call your primary care physician tomorrow to discuss ongoing dosing. Please keep skin adhesive intact and allow for wound to heal. Please keep dressing intact for the next 3 days. Please follow-up with monitoring specialist and change dressing every few days thereafter. Please be sure to use nonadherent pad against the skin. Please contact your primary care physician to arrange follow-up. Return to the ER immediately for any worsening or new concerning symptoms. Referrals: [facility] [Provider Group] Medical Decision Making 82-year-old male with multi medical problems on Eliquis for history of pulmonary embolism, chronic wound of distal right lower extremity, frequent recent ED visits for bleeding wounds. Bleeding source identified and cauterized. Topical TXA applied. Bleeding controlled. To maintain hemostasis skin adhesive was applied to seal wound. Nonadherent sterile dressing applied. Plan for discharge with outpatient follow-up. He has an appointment tomorrow [facility] surgery which I encouraged him to keep. I have advised him to hold his Eliquis tonight and to discuss ongoing dosing tomorrow with his physician. His prescribing physician was not available to renetta szymanski this evening. I do think it is worth considering discontinuing Eliquis if this can be done safely. HPI General Mode of arrival: EMS . Date/Time Provider Initiated Documentation: 09/29/22 14:55 . Limitations to Documentation: no limitations . Information obtained by: patient . 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 Patient has had recent debridement of chronic wounds and subsequently developed bleeding. Today home health nurse was changing his dressing and then he developed bleeding from chronic ulcer distal anterior left lower extremity. Bleeding persisted until EMS arrived and applied dressing. Bleeding was described as oozing. Related Data Home Medications Medication Instructions Recorded Confirmed levothyroxine 75 mcg tablet 75 mcg PO DAILY 12/03/16 09/29/22 ropinirole 2 mg tablet 2 mg PO HS 12/03/16 09/29/22 nitroglycerin 0.4 mg sublingual 0.4 mg sublingual Q5-15M PRN 07/30/19 09/29/22 tablet (Nitrostat) finasteride 5 mg tablet 5 mg PO DAILY 08/27/21 09/29/22 sertraline 25 mg tablet 25 mg PO DAILY 08/27/21 09/29/22 montelukast 10 mg tablet 10 mg PO DAILY 10/24/21 09/29/22 tamsulosin 0.4 mg capsule 0.8 mg PO DAILY 10/24/21 09/29/22 apixaban 5 mg tablet (Eliquis) 5 mg PO BID #0 tabs 11/20/21 09/29/22 cetirizine 10 mg tablet 5 mg PO DAILY #0 tabs 11/20/21 09/29/22 L. acidophilus,casei,rhamnosus 50 1 cap PO DAILY 12/12/21 09/29/22 billion cell capsule,delayed release (Bio-K plus) albuterol sulfate 90 mcg/actuation 2 puff inhalation Q6H PRN 12/12/21 09/29/22 aerosol inhaler (ProAir HFA) nintedanib 150 mg capsule (Ofev) 150 mg PO Q12H #60 caps 12/12/21 09/29/22 vitamin B complex 1 tab PO DAILY 12/12/21 09/29/22 Oxygen #1 ea 01/01/22 09/29/22 furosemide 40 mg tablet (Lasix) 60 mg PO DAILY 01/03/22 09/29/22 budesonide 160 mcg-glycopyr 9 2 inh inhalation BID 07/30/22 09/29/22 mcg-formot 4.8 mcg/actuation HFA inhaler (Breztri Aerosphere) pantoprazole 40 mg tablet,delayed 40 mg PO DAILY 07/30/22 09/29/22 release acetaminophen 500 mg tablet 500 mg PO Q4H PRN 08/06/22 09/29/22 (Tylenol Extra Strength) fluticasone propionate 50 1 spray intranasal BID 08/06/22 09/29/22 mcg/actuation nasal spray,suspension (Allergy Relief (fluticasone)) midodrine 2.5 mg tablet 5 mg PO TID 08/06/22 09/29/22 potassium chloride 20 mEq 10 meq PO BID 08/06/22 09/29/22 tablet,extended release(part/cryst) (Klor-Con M) prednisone 2.5 mg tablet 7.5 mg PO DAILY 08/06/22 09/29/22 ibuprofen 400 mg tablet 400 mg PO Q6H PRN pain #20 tabs 08/09/22 09/29/22 collagenase clostridium histo. 250 1 applic topical DAILY wound #30 09/25/22 09/29/22 unit/gram topical ointment (Santyl) grams Previous Rx's Medication Instructions Recorded apixaban 5 mg tablet (Eliquis) 5 mg PO BID #0 tabs 11/20/21 cetirizine 10 mg tablet 5 mg PO DAILY #0 tabs 11/20/21 nintedanib 150 mg capsule (Ofev) 150 mg PO Q12H #60 caps 12/12/21 Oxygen #1 ea 01/01/22 ibuprofen 400 mg tablet 400 mg PO Q6H PRN pain #20 tabs 08/09/22 collagenase clostridium histo. 250 1 applic topical DAILY wound #30 09/25/22 unit/gram topical ointment (Santyl) grams Allergies Allergy/AdvReac Type Severity Reaction Status Date / Time Sulfa (Sulfonamide AdvReac Intermediate Its been Verified 09/29/22 14:38 Antibiotics) along time cat dander AdvReac Mild Verified 09/29/22 14:38 penicillin V AdvReac Mild nausea Verified 09/29/22 14:38 salicylates AdvReac Mild up set Verified 09/25/22 13:17 stomach voriconazole AdvReac Mild Visual Verified 09/29/22 14:38 Disturbances General Stated Complaint: Vascular BRYCE: 3 Review of Systems Constitutional Constitutional: Denies fever(s) Integumentary/Breasts Skin/Breast: Reports as per HPI PFSH All Active Problems Bleeding from wound (Acute) Ischemic ulcer of foot due to atherosclerosis of [place] artery of extremity (Acute) Arterial insufficiency with ischemic ulcer (Acute) Bleeding from wound (Acute) Ankle pain, chronic (Acute) Acute arthritis (Acute) Cellulitis (Acute) Pain in left foot (Acute) Anticoagulated (Acute) Gout attack (Acute) Laceration of fernandez (Acute) Chronic anticoagulation (Acute) Neuropathy (Acute) Orthostatic hypotension (Acute) Idiopathic pulmonary fibrosis (Acute) Pulmonary hypertension (Acute) Palliative care patient (Acute) PMR (polymyalgia rheumatica) (Acute) Fungal pneumonia (Acute) Acute respiratory failure with hypoxia (Acute) Palliative care patient (Acute) Acute kidney injury superimposed on CKD (Acute) DNR (do not resuscitate) (Acute) Advanced care planning/counseling discussion (Acute) History of pulmonary embolism (Acute) Sleep apnea (Chronic) PAD (peripheral artery disease) (Chronic) Medical History Abdominal aortic aneurysm Acute kidney injury superimposed on chronic kidney disease Anemia, mild BCC (basal cell carcinoma) Bilateral pneumonia BPH (benign prostatic hyperplasia) Chest pain CHF (congestive heart failure) Chronic ethmoidal sinusitis Chronic frontal sinusitis Chronic kidney disease Chronic lower back pain Deviated nasal septum Dilated aortic root Discharge planning issues DVT prophylaxis E coli bacteremia Elevated creatine kinase Fractured rib mid Sept 2018 Generalized osteoarthrosis Gout H/O urinary frequency Headache History of depression History of IBS Hx of colonic polyps Hx of Lyme disease Hx of pyelonephritis Hypertension Hypokalemia Hypothyroidism Kidney stone Lichen planus Lyme disease Nasal septal spur Nasal turbinate hypertrophy Neck pain On home oxygen therapy Orthostatic dizziness Pain, joint, hip, right Palliative care encounter Parkinsons pt. states he does not have Pneumonia Polymyalgia rheumatica pt. reports he has this not parkinsons Pulmonary emboli Pulmonary fat embolism Pulmonary fibrosis Pulmonary infiltrates Pyelonephritis due to Escherichia coli Restless leg syndrome Severe muscle deconditioning Sinus bradycardia Skin breakdown Trochanteric bursitis Venous insufficiency Surgical History Hx of colonoscopy Hx of inguinal hernia surgery Hx of total hip arthroplasty right Social History Smoking/Tobacco Use Status: Former Tobacco Use Quit Date: 09/08/81 Smoking risk assessment performed?: Yes Alcohol Intake: current Alcohol Intake frequency: 0-2 drinks per day Alcohol type: beer and hard liquor Drug use: Never Substance use type: does not use Do you feel safe at home: Yes Do you feel safe in your relationship?: Yes Additional Social history: Abby alfarotbor/friend [phone] 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 Sister is in area. Exam Cardio Rate: regular rate Rhythm: regular rhythm Other: 1+DP bilateral Skin Wounds: wounds noted (distal LLE anterior 2cm open superficial ulcer oozing blood ) Course Vital Signs Vital signs: Vital Signs Temperature 36.3 C L 09/29/22 14:42 Pulse 92 H 09/29/22 14:42 Respiratory Rate 18 09/29/22 14:42 Blood Pressure 141/83 H 09/29/22 14:42 Pulse Oximetry 99 09/29/22 14:42 Temperature 36.3 C L 09/29/22 14:42 Temperature Source Temporal Artery Scan 09/29/22 14:42 Pulse 92 H 09/29/22 14:42 Respiratory Rate 18 09/29/22 14:42 Respiratory Effort 09/29/22 16:58 Blood Pressure 141/83 H 09/29/22 14:42 Pulse Oximetry 99 09/29/22 14:42 Oxygen Delivery Method Room Air 09/29/22 14:42 Oxygen Flow Rate 0 09/29/22 14:42
== END 2022-09-29 17:46 | disposition home or self-care (01) ==
PROVIDERS: Emergency Provider Student in an Organized Health Care Education/Training Program; PCP Family Medicine
DX: S81.802A Unspecified open wound, left lower leg, initial encounter (principal); G20 Parkinson's disease; E03.9 Hypothyroidism, unspecified; I13.0 Hypertensive heart and chronic kidney disease with heart failure and stage 1 through stage 4 chronic kidney disease, or unspecified chronic kidney disease; I50.9 Heart failure, unspecified; N18.9 Chronic kidney disease, unspecified; Z86.718 Personal history of other venous thrombosis and embolism; Z86.711 Personal history of pulmonary embolism; Z79.01 Long term (current) use of anticoagulants; X58.XXXA Exposure to other specified factors, initial encounter
CPT/HCPCS: 99282

== ENCOUNTER 2022-09-30 13:44 | Day surgery (SDC) | payer MEDICARE, SELFPAY ==
[2022-09-30 14:29] VITALS: BP 100/65; PULSE 97; RESP 22; TEMP 36.6; O2SAT 96
[2022-09-30 14:36] LABS: Abs Immature Grans 0.11 10^3/uL (0.0-0.06); Absolute Basophil Count 0.03 10^3/uL (0.0-0.2); Absolute Eosinophil Count 0.11 10^3/uL (0.0-0.7); Absolute Lymphocyte Count 1.19 10^3/uL (1.2-3.4); Absolute Monocyte Count 0.58 10^3/uL (0.1-0.8); Absolute Neutrophil Count 7.52 10^3/uL (1.2-6.7); Basophils % 0.3; Eosinophils % 1.2; HCT 31.3 % (40.0-50.0); HGB 10.3 g/dL (13.5-17.5); Immature Grans % 1.2; Lymphocytes % 12.5; MCH 35.3 pg (27.0-33.0); MCHC 32.9 % (32.0-36.0); MCV 107 fL (80-95); MPV 10.2 fL (8.0-11.0); Monocytes % 6.1; Neutrophils % 78.7; Nucleated RBC 0.2 % (0.0-0.3); Platelet Count 159 10^3/uL (130-400); RBC 2.92 10^6/uL (4.36-5.78); RDW 15.4 % (11.8-14.1); RDW-SD 59.7 fL; WBC 9.54 10^3/uL (4.4-10.8)
[2022-09-30 14:45] LABS: INR 1.1 (0.9-1.1); Prothrombin Time 11.2 sec (9.3-11.0)
[2022-09-30 14:48] LABS: Diff Comment RBC Morph Reviewed; Macrocytosis 1+; Polychromasia Present
[2022-09-30 14:57] LABS: Iron 50 ug/dL (65-175); Total Iron Binding Capacity 249 ug/dL (250-450); Transferrin Sat 20 % (20-55)
[2022-09-30 14:58] LABS: Source Nasal/Nares
[2022-09-30 15:07] LABS: Ferritin 145 ng/mL (26-388)
--- NOTE | 2022-09-30 15:13 | NUR.NOTE ---
1500: MD in room to see pt. pre procedure. MD aware that pt. reports he feels different than when he was in ER on 09/29/22, pt. states he feels weak, light headed, dizzy. aware of bilateral crackles in lungs and aware of swelling in bilateral LE.Nursing Note:
[2022-09-30] MEDS: Lidocaine 1% Pres-Free 30 ML VIAL (15:15)
[2022-09-30] MEDS: Sodium Bicarbonate 50 MEQ/50 ML VIAL (15:15)
[2022-09-30] MEDS: Gelatin SPONGE 12-7 MM PKT 1 EACH TP (15:20)
[2022-09-30 15:31] VITALS: BP 132/70; PULSE 89; RESP 18; TEMP 36.3; O2SAT 94
[2022-09-30 15:36] LABS: COVID-19 PCR Negative (Negative)
--- NOTE | 2022-09-30 15:41 | ROE_ITS ---
Date of service: 09/30/22 Time of Service: 15:41 Operative Note Operative Note DATE OF PROCEDURE: 09/30/22 PRE-OP DIAGNOSIS: bleeding arterial ulcer due to ischemia. chronic blood thinners due to PE POST-OP DIAGNOSIS: same PROCEDURE: cautery SURGEON: Natasha Polanco ANESTHESIA TYPE: Local By Surgeon Refer to Anesthesia Record ESTIMATED BLOOD LOSS: 1 PATHOLOGY: none sent COMPLICATIONS: None Patient was transported to: same day Patient's condition: stable Procedure Description: Patient has arterial ulcers on his left lower extremity. He was sent to our office for debridement. These were debrided on 09/23. He is on Eliquis for PEs. Unfortunately the wound on his left leg has continued to bleed and ooze. His hemoglobin today is 10.3. He has held his Eliquis for today. He has been brought to the OR for cauterization. Risks include pain and worsening of the bleeding. The extremity is marked in preop informed consent was obtained from the patient. Patient is brought to the OR. He is prepped and draped in usual sterile fashion using Betadine scrub solution. Timeout is done. The left leg wound is anesthetized with 3 cc 1% lidocaine with bicarb. Electrocautery is used to provide hemostasis and Gelfoam and compression dressing are placed. Patient tolerated procedure well. There is no signs of bleeding or infection from either the wounds. Unfortunately he has very poor blood flow to the lower extremities. He has single-vessel flow to both legs only. He has pulses only by Doppler. But they are present they are monophasic and staccato. He has x2 ulcers on the left lower extremity that are nonhealing. We cannot do ABIs on him because of the ulcers and pain. He does have ecchymosis on his toes, but it is an irregular area and at the base of the toe and at the tip of the toe. This was thought to be initially from trauma from when he fell on 09/13. But this has not resolved. An urgent referral to vascular surgery and arterial Dopplers was [place] [facility] Wound care should be resumed on Friday He needs to continue to do physical therapy for strengthening. At this point he is non- ambulatory because he is so weak. Hemoglobin it today is 10.3 He has to resume the Eliquis because of history of PE, last PE was in 2020. GFR is 22.
--- NOTE | 2022-09-30 15:42 | W.PM.DSUDISC ---
Date of service: 09/30/22 Time of Service: 15:43 Discharge Plan Disposition Patient Disposition: Home Condition: Fair Discharge Details Reason For Visit: bleeding lle Attending Provider: Natasha Polanco Primary Care Provider: Thang Hernandez Home Meds and New Rx's Prescriptions: No Action furosemide [Lasix] 40 mg tablet 60 mg PO DAILY Label Comments: pt. reports if it is in his blister pack he took it vitamin B complex Tablet 1 tab PO DAILY Ofev 150 mg capsule 150 mg PO Q12H Qty: 60 12RF pantoprazole 40 mg tablet,delayed release (DR/EC) 40 mg PO DAILY Label Comments: pt. unsure if it is in blister pack Breztri Aerosphere 160-9-4.8 mcg/actuation HFA aerosol inhaler 2 inh inhalation BID nitroglycerin [Nitrostat] 0.4 mg tablet, sublingual 0.4 mg SL Q5-15M PRN albuterol sulfate [ProAir HFA] 90 mcg/actuation HFA aerosol inhaler 2 puff IH Q6H PRN Label Comments: 2 puffs PO every 4 hrs PRN per [facility] (DME) Oxygen Tank See Rx Instructions .Route Qty: 1 0RF Label Comments: pt. states he has not been using it. Pt. came in wearing a pulse oximeter around neck, O2 sat normally between 95-98 Rx Instructions: 3Lpm at rest continuous via Nasal Cannula and 8Lpm during exertion continuous via Nasal Cannula fluticasone propionate [Allergy Relief (fluticasone)] 50 mcg/actuation spray,suspension 1 spray intranasal BID Rx Instructions: administer into each nostril acetaminophen [Tylenol Extra Strength] 500 mg tablet 500 mg PO Q4H PRN Label Comments: 1 tab PO every 4 hrs PRN per [facility] potassium chloride [Klor-Con M20] 20 mEq tablet,ER particles/crystals 10 meq PO BID prednisone 2.5 mg tablet 7.5 mg PO DAILY midodrine 2.5 mg tablet 5 mg PO TID Santyl 250 unit/gram ointment 1 applic topical DAILY Qty: 30 2RF Label Comments: pt think home health has being doing that Rx Instructions: Apply thin coating of Santyl ointment to open wounds. Cover with bandage. Change daily. ibuprofen 400 mg tablet 400 mg PO Q6H PRN (Reason: pain) Qty: 20 0RF levothyroxine 75 MCG tablet 75 mcg PO DAILY ropinirole 2 MG tablet 2 mg PO HS sertraline 25 mg tablet 25 mg PO DAILY Label Comments: TAKE 1 TABLET BY MOUTH EVERY DAY finasteride 5 mg tablet 5 mg PO DAILY Label Comments: TAKE 1 TABLET BY MOUTH EVERY DAY, pt. thinks it is in his blister pack tamsulosin 0.4 mg capsule 0.8 mg PO DAILY Label Comments: Take 2 capsule by mouth once a day montelukast 10 mg tablet 10 mg PO DAILY Label Comments: TAKE 1 TABLET BY MOUTH DAILY cetirizine 10 mg Tablet 5 mg PO DAILY Qty: 0 0RF Label Comments: pt. states i couldnt tell you Eliquis 5 mg Tablet 5 mg PO BID Qty: 0 0RF Hold Instructions: Resume on 09/30/22. Bio-K plus 50 billion cell capsule,delayed release(DR/EC) 1 cap PO DAILY Label Comments: 1 cap PO TID x 2 months (starting 11/20/21) per Bharat SCHMIDT Pt. thinks it is in his blister pack Discharge Instructions Additional Instructions: -resume elliquis in am -resume dressing changes on Friday -Continue PT for strengthening -Referral to Vascular surgery at [facility] sent. -F/u Dr. Polanco 10/07 at 1pm Activity:: Activity as Tolerated Remove Dressings/Wound Care:: 48 hours Shower/Bathe:: Cover Diet:: low uric acid diet DS: Diagnosis Discharge Diagnosis (1) Ischemic rest pain of lower extremity: Status: Acute (2) PAD (peripheral artery disease): Status: Chronic (3) Sleep apnea: Status: Chronic (4) History of pulmonary embolism: Status: Acute (5) Chronic renal failure, stage 4 (severe): Status: Acute (6) PMR (polymyalgia rheumatica): Status: Acute (7) Pulmonary hypertension: Status: Acute (8) Idiopathic pulmonary fibrosis: Status: Acute (9) Orthostatic hypotension: Status: Acute (10) Neuropathy: Status: Acute (11) Gout attack: Status: Acute (12) Ischemic ulcer of foot due to atherosclerosis of [place] artery of extremity: Status: Acute (13) Arterial insufficiency with ischemic ulcer: Status: Acute (14) CHF (congestive heart failure): (15) Dilated aortic root: (16) Venous insufficiency: (17) Severe muscle deconditioning: (18) Restless leg syndrome: (19) Pulmonary emboli: (20) Pulmonary fibrosis: (21) Polymyalgia rheumatica:
== END 2022-09-30 16:08 | disposition home or self-care (01) ==
PROVIDERS: PCP Family Medicine; Visit Provider Surgery
PROC: (CPT 17110; principal; 2022-09-30 15:00)
DX: I70.25 Atherosclerosis of native arteries of other extremities with ulceration (principal); L97.821 Non-pressure chronic ulcer of other part of left lower leg limited to breakdown of skin; Z20.822 Contact with and (suspected) exposure to COVID-19; Z79.01 Long term (current) use of anticoagulants; Z86.711 Personal history of pulmonary embolism
CPT/HCPCS: 17110; 36415; 86850; 86900; 86901; 87635; 82728; 83540; 83550; 85025; 85610

== ENCOUNTER → 2022-10-08 10:50 | Outpatient (BNVA) | payer MEDICARE, SELFPAY | PROVIDERS: PCP Family Medicine; Referring Provider Family Medicine; Visit Provider Surgery | DX: L98.498 Non-pressure chronic ulcer of skin of other sites with other specified severity (principal); I70.25 Atherosclerosis of native arteries of other extremities with ulceration | CPT/HCPCS: 99212 ==

== ENCOUNTER → 2022-10-22 10:47 | Outpatient (BNVA) | payer MEDICARE, SELFPAY | PROVIDERS: PCP Family Medicine; Referring Provider Family Medicine; Visit Provider Surgery | DX: I87.2 Venous insufficiency (chronic) (peripheral) (principal); L97.322 Non-pressure chronic ulcer of left ankle with fat layer exposed; N18.4 Chronic kidney disease, stage 4 (severe); I73.9 Peripheral vascular disease, unspecified | CPT/HCPCS: 11043; 99213 ==

== ENCOUNTER → 2022-11-05 11:07 | Outpatient (BNVA) | payer MEDICARE, SELFPAY | PROVIDERS: PCP Family Medicine; Referring Provider Family Medicine; Visit Provider Surgery | DX: Z51.89 Encounter for other specified aftercare (principal); R29.6 Repeated falls; I87.2 Venous insufficiency (chronic) (peripheral); Z79.01 Long term (current) use of anticoagulants; L97.522 Non-pressure chronic ulcer of other part of left foot with fat layer exposed; L97.922 Non-pressure chronic ulcer of unspecified part of left lower leg with fat layer exposed | CPT/HCPCS: 11042; 99213 ==

== ENCOUNTER 2022-11-16 18:33 | Emergency (ER) | payer MEDICARE, SELFPAY ==
[2022-11-16] VITALS (14 sets, daily range): BP systolic 118–160; BP diastolic 67–89; PULSE 79–94; RESP 20; TEMP 36.7; O2SAT 96–100
--- NOTE | 2022-11-16 18:47 | ED.GENADUL_ITS ---
Discharge Plan Disposition Patient Disposition: Home Discharge Details Clinical Impression: Wound of right leg, Hemorrhage from wound Primary Care Provider: Thang Hernandez ED Provider: Haritha Garland Home Meds and New Rx's Prescriptions: No Action furosemide [Lasix] 40 mg tablet 60 mg PO DAILY Patient Comments: pt. reports if it is in his blister pack he took it vitamin B complex Tablet 1 tab PO DAILY Ofev 150 mg capsule 150 mg PO Q12H Qty: 60 12RF pantoprazole 40 mg tablet,delayed release (DR/EC) 40 mg PO DAILY Patient Comments: pt. unsure if it is in blister pack Breztri Aerosphere 160-9-4.8 mcg/actuation HFA aerosol inhaler 2 inh inhalation BID nitroglycerin [Nitrostat] 0.4 mg tablet, sublingual 0.4 mg SL Q5-15M PRN albuterol sulfate [ProAir HFA] 90 mcg/actuation HFA aerosol inhaler 2 puff IH Q6H PRN Patient Comments: 2 puffs PO every 4 hrs PRN per [facility] O[facility] Tank See Rx Instructions .Route Qty: 1 0RF Patient Comments: pt. states he has not been using it. Pt. came in wearing a pulse oximeter around neck, O2 sat normally between 95-98 Rx Instructions: 3Lpm at rest continuous via Nasal Cannula and 8Lpm during exertion continuous via Nasal Cannula fluticasone propionate [Allergy Relief (fluticasone)] 50 mcg/actuation spray,suspension 1 spray intranasal BID Rx Instructions: administer into each nostril acetaminophen [Tylenol Extra Strength] 500 mg tablet 500 mg PO Q4H PRN Patient Comments: 1 tab PO every 4 hrs PRN per [facility] potassium chloride [Klor-Con M20] 20 mEq tablet,ER particles/crystals 10 meq PO BID prednisone 2.5 mg tablet 7.5 mg PO DAILY midodrine 2.5 mg tablet 5 mg PO TID Santyl 250 unit/gram ointment 1 applic topical DAILY Qty: 30 2RF Patient Comments: pt think home health has being doing that Rx Instructions: Apply thin coating of Santyl ointment to open wounds. Cover with bandage. Change daily. ibuprofen 400 mg tablet 400 mg PO Q6H PRN (Reason: pain) Qty: 20 0RF levothyroxine 75 MCG tablet 75 mcg PO DAILY ropinirole 2 MG tablet 2 mg PO HS sertraline 25 mg tablet 25 mg PO DAILY Patient Comments: TAKE 1 TABLET BY MOUTH EVERY DAY finasteride 5 mg tablet 5 mg PO DAILY Patient Comments: TAKE 1 TABLET BY MOUTH EVERY DAY, pt. thinks it is in his blister pack tamsulosin 0.4 mg capsule 0.8 mg PO DAILY Patient Comments: Take 2 capsule by mouth once a day montelukast 10 mg tablet 10 mg PO DAILY Patient Comments: TAKE 1 TABLET BY MOUTH DAILY cetirizine 10 mg Tablet 5 mg PO DAILY Qty: 0 0RF Patient Comments: pt. states i couldnt tell you Eliquis 5 mg Tablet 5 mg PO BID Qty: 0 0RF Hold Instructions: Resume on 09/30/22. Bio-K plus 50 billion cell capsule,delayed release(DR/EC) 1 cap PO DAILY Patient Comments: 1 cap PO TID x 2 months (starting 11/20/21) per [facility]har[facility] TIDWELL. Pt. thinks it is in his blister pack Discharge Instructions Instructions: Acute Wounds (ED) Additional Instructions: Do not take your Eliquis tonight. Leave the dressing in place until tomorrow. Your home health nurse can remove it. If it starts to bleed again please return to the ER. If you become weak, dizzy lightheaded or feeling faint please return to the ER. Please follow-up with general surgery on Friday morning. The lab work is not critically low. Follow up with primary care provider in 3-5 days. Return to ED sooner if any worsening or concerns. Increase oral fluids. Referrals: Thang Hernandez MD [Primary Care Provider] - 5 days Natasha Polanco DO [OSTEOPATHIC DOCTOR] - 2 days Medical Decision Making 82-year-old male with a past medical history of venous stasis dermatitis, venous stasis ulcers and venous insufficiency and chronic renal failure on Eliquis presents to the ER with a bleeding skin tear to his right anterior fernandez. Patient reports that he bumped his fernandez yesterday. Was seen at urgent care today where his wound was cauterized. Began bleeding through the dressings prior to arrival. He does have approximately 3 cm x 5 cm skin tear which has a slow venous ooze noted. Apply direct pressure. Surgicel dressing, TXA and silver nitrate ordered. 1855: TXA 500mg Topically placed to wound. Compression dressing applied. Will recheck in approximately 10 minutes. 1914: Surgicel dressing placed on wound, wound is still bleeding after the TXA placement. Area of bleeding attempted at cauterization with silver nitrate. After some pressure was applied with the Surgicel and cauterization bleeding has noted bleeding slowed. Pressure dressing applied. Instructed patient not to take this off until tomorrow. Patient does have a home health nurse that comes to visit at 1030. I did instruct him to keep that on until she arrives and to hold his p.m. dose of his Eliquis tonight. He is complaining of some dizziness with standing we will check a CBC to evaluate his H&H. We will refer patient to general surgery for reevaluation on Friday. Discussed strict return instructions that if bleeding recurs to return to the ER. CBC shows hemoglobin of 10.1 and hematocrit of 30.5 platelets are 205. Patient is to be discharged with instructions to hold the Eliquis tonight keep dressing on until tomorrow and to return if bleeding reoccurs. This text was generated using Ketsuation system, please disregard any oddities of phrase or misspellings. HPI General Mode of arrival: ambulatory . Date/Time Provider Initiated Documentation: 11/16/22 18:33 . Limitations to Documentation: no limitations . Information obtained by: patient and RN notes reviewed . HPI Narrative: 82-year-old male with a past medical history of venous stasis dermatitis, venous stasis ulcers and venous insufficiency and chronic renal failure on Eliquis presents to the ER with a bleeding skin tear to his right anterior fernandez. Patient reports that he bumped his fernandez yesterday. Was seen at urgent care today where his wound was cauterized. Began bleeding through the dressings prior to arrival. He does have approximately 3 cm x 5 cm skin tear which has a slow venous ooze noted. He does come with a soaked through washcloth to his fernandez. He last took his Eliquis this morning. Related Data Home Medications Medication Instructions Recorded Confirmed levothyroxine 75 mcg tablet 75 mcg PO DAILY 12/03/16 11/07/22 ropinirole 2 mg tablet 2 mg PO HS 12/03/16 11/07/22 nitroglycerin 0.4 mg sublingual 0.4 mg sublingual Q5-15M PRN 07/30/19 11/07/22 tablet (Nitrostat) finasteride 5 mg tablet 5 mg PO DAILY 08/27/21 11/07/22 sertraline 25 mg tablet 25 mg PO DAILY 08/27/21 11/07/22 montelukast 10 mg tablet 10 mg PO DAILY 10/24/21 11/07/22 tamsulosin 0.4 mg capsule 0.8 mg PO DAILY 10/24/21 11/07/22 apixaban 5 mg tablet (Eliquis) 5 mg PO BID #0 tabs 11/20/21 11/07/22 cetirizine 10 mg tablet 5 mg PO DAILY #0 tabs 11/20/21 11/07/22 L. acidophilus,casei,rhamnosus 50 1 cap PO DAILY 12/12/21 11/07/22 billion cell capsule,delayed release (Bio-K plus) albuterol sulfate 90 mcg/actuation 2 puff inhalation Q6H PRN 12/12/21 11/07/22 aerosol inhaler (ProAir HFA) nintedanib 150 mg capsule (Ofev) 150 mg PO Q12H #60 caps 12/12/21 11/07/22 vitamin B complex 1 tab PO DAILY 12/12/21 11/07/22 Oxygen #1 ea 01/01/22 11/07/22 furosemide 40 mg tablet (Lasix) 60 mg PO DAILY 01/03/22 11/07/22 budesonide 160 mcg-glycopyr 9 2 inh inhalation BID 07/30/22 11/07/22 mcg-formot 4.8 mcg/actuation HFA inhaler (Breztri Aerosphere) pantoprazole 40 mg tablet,delayed 40 mg PO DAILY 07/30/22 11/07/22 release acetaminophen 500 mg tablet 500 mg PO Q4H PRN 08/06/22 11/07/22 (Tylenol Extra Strength) fluticasone propionate 50 1 spray intranasal BID 08/06/22 11/07/22 mcg/actuation nasal spray,suspension (Allergy Relief (fluticasone)) midodrine 2.5 mg tablet 5 mg PO TID 08/06/22 11/07/22 potassium chloride 20 mEq 10 meq PO BID 08/06/22 11/07/22 tablet,extended release(part/cryst) (Klor-Con M) prednisone 2.5 mg tablet 7.5 mg PO DAILY 08/06/22 11/07/22 ibuprofen 400 mg tablet 400 mg PO Q6H PRN pain #20 tabs 08/09/22 11/07/22 collagenase clostridium histo. 250 1 applic topical DAILY wound #30 09/25/22 11/07/22 unit/gram topical ointment (Santyl) grams Previous Rx's Medication Instructions Recorded apixaban 5 mg tablet (Eliquis) 5 mg PO BID #0 tabs 11/20/21 cetirizine 10 mg tablet 5 mg PO DAILY #0 tabs 11/20/21 nintedanib 150 mg capsule (Ofev) 150 mg PO Q12H #60 caps 12/12/21 Oxygen #1 ea 01/01/22 ibuprofen 400 mg tablet 400 mg PO Q6H PRN pain #20 tabs 08/09/22 collagenase clostridium histo. 250 1 applic topical DAILY wound #30 09/25/22 unit/gram topical ointment (Santyl) grams Allergies Allergy/AdvReac Type Severity Reaction Status Date / Time Sulfa (Sulfonamide AdvReac Intermediate Its been Verified 11/16/22 18:44 Antibiotics) along time cat dander AdvReac Mild Verified 11/16/22 18:44 penicillin V AdvReac Mild nausea Verified 11/16/22 18:44 salicylates AdvReac Mild up set Verified 11/16/22 18:44 stomach voriconazole AdvReac Mild Visual Verified 11/16/22 18:44 Disturbances General Stated Complaint: Laceration BRYCE: 2 Review of Systems Integumentary/Breasts Skin/Breast: Reports as per HPI, Reports bleeding lesions and Reports wounds PFSH All Active Problems (Updated 11/16/22 @ 19:39 by Haritha Garland NP) Wound of right leg (Acute) Hemorrhage from wound (Acute) Venous stasis dermatitis of both lower extremities (Acute) Venous stasis ulcer limited to breakdown of skin with varicose veins (Acute) Venous stasis ulcer of ankle with fat layer exposed without varicose veins (Acute) Chronic venous insufficiency of lower extremity (Acute) Venous insufficiency of both lower extremities (Acute) Chronic renal failure, stage 4 (severe) (Acute) PAD (peripheral artery disease) (Chronic) Sleep apnea (Chronic) History of pulmonary embolism (Acute) Advanced care planning/counseling discussion (Acute) DNR (do not resuscitate) (Acute) Acute kidney injury superimposed on CKD (Acute) Acute respiratory failure with hypoxia (Acute) Fungal pneumonia (Acute) PMR (polymyalgia rheumatica) (Acute) Pulmonary hypertension (Acute) Idiopathic pulmonary fibrosis (Acute) Orthostatic hypotension (Acute) Neuropathy (Acute) Anticoagulated (Acute) Pain in left foot (Acute) Cellulitis (Acute) Acute arthritis (Acute) Ankle pain, chronic (Acute) Medical History Abdominal aortic aneurysm Acute kidney injury superimposed on chronic kidney disease Anemia, mild BCC (basal cell carcinoma) Bilateral pneumonia BPH (benign prostatic hyperplasia) Chest pain CHF (congestive heart failure) Chronic ethmoidal sinusitis Chronic frontal sinusitis Chronic kidney disease Chronic lower back pain Deviated nasal septum Dilated aortic root Discharge planning issues DVT prophylaxis E coli bacteremia Elevated creatine kinase Fractured rib mid Sept 2018 Generalized osteoarthrosis Gout H/O urinary frequency Headache History of depression History of IBS Hx of colonic polyps Hx of hemorrhoids pt. reports a procedure on hemorrhoids Hx of Lyme disease Hx of pyelonephritis Hypertension Hypokalemia Hypothyroidism Kidney stone Lichen planus Lyme disease Nasal septal spur Nasal turbinate hypertrophy Neck pain On home oxygen therapy Orthostatic dizziness Pain, joint, hip, right Palliative care encounter Palliative care patient Palliative care patient Parkinsons pt. states he does not have Pneumonia Polymyalgia rheumatica pt. reports he has this not parkinsons Pulmonary emboli Pulmonary fat embolism Pulmonary fibrosis Pulmonary infiltrates Pyelonephritis due to Escherichia coli Restless leg syndrome Severe muscle deconditioning Sinus bradycardia Skin breakdown Trochanteric bursitis Venous insufficiency Surgical History Hx of colonoscopy Hx of inguinal hernia surgery Hx of total hip arthroplasty right Social History Smoking/Tobacco Use Status: Former Tobacco Use Quit Date: 09/08/81 Smoking risk assessment performed?: Yes Alcohol Intake: current Alcohol Intake frequency: 0-2 drinks per day Alcohol type: beer, wine and hard liquor Drug use: Never Substance use type: does not use Details: alcohol: t-2, couple drinks Do you feel safe at home: Yes Do you feel safe in your relationship?: Yes Additional Social history: Abby alfarotbor/friend [phone] 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 Sister is in area. Exam Extrem Upper/lower leg/hip images: 1. Approximately 3 cm x 5 cm skin tear with venous oozing. Course Vital Signs Vital signs: Vital Signs Temperature 36.7 C 11/16/22 18:40 Pulse 88 11/16/22 18:40 Respiratory Rate 20 11/16/22 18:40 Blood Pressure 160/80 H 11/16/22 18:40 Pulse Oximetry 99 11/16/22 18:40 Temperature 36.7 C 11/16/22 18:40 Temperature Source Oral 11/16/22 18:40 Pulse 88 11/16/22 18:40 Respiratory Rate 20 11/16/22 18:40 Respiratory Effort Normal, Non-Labored 11/16/22 18:45 Blood Pressure 160/80 H 11/16/22 18:40 Blood Pressure Position Supine 11/16/22 18:40 Pulse Oximetry 99 11/16/22 18:40 Oxygen Delivery Method Room Air 11/16/22 18:40 Oxygen Flow Rate 0 11/16/22 18:40 Pain Level 7 11/16/22 18:40 PAWSS Have you Been Recently Intoxicated or Drunk Within the Last 30 days?: No Have you Ever Experienced Previous Episodes of Alcohol Withdrawal?: No Have you ever Experienced Withdrawal Seizures?: No Have you ever Experienced Delirium Tremens(DT)s?: No Have you ever undergone Alcohol Rehabilitation Treatment (i.e, inpt ot outpatient treatment programs)?: No Have you ever Experienced Blackouts?: No Have you ever Combined Alcohol with other Downers within the last 90 days?: No Have you ever Combined Alcohol with any other Substance of Abuse during the last 90 days?: No Positive Blood Alcohol level on Presentation? [PCS.BAL]: No Evidence of Increased Autonomic Activity (i.e. HR>120, tremor, sweating, agitation, nausea)?: No Result: 0
[2022-11-16] MEDS: Tranexamic Acid 1,000 MG/10 ML VIAL 500 MG NS (18:52)
[2022-11-16] MEDS: Silver Nitrate Stick 1 EACH TP (18:52)
[2022-11-16] MEDS: Cellulose,Oxidized 2X3 PKT 1 EACH MC (19:21)
[2022-11-16] MEDS: Cellulose,Oxidized 4X8 1 PACKET MC (19:25)
[2022-11-16 19:31] LABS: HCT 30.5 % (40.0-50.0); HGB 10.1 g/dL (13.5-17.5); MCH 34.2 pg (27.0-33.0); MCHC 33.1 % (32.0-36.0); MCV 103 fL (80-95); MPV 9.7 fL (8.0-11.0); Platelet Count 205 10^3/uL (130-400); RBC 2.95 10^6/uL (4.36-5.78); RDW 14.4 % (11.8-14.1); WBC 10.01 10^3/uL (4.4-10.8)
== END 2022-11-16 20:03 | disposition home or self-care (01) ==
PROVIDERS: Emergency Provider Registered Nurse Emergency; PCP Family Medicine
DX: S81.801A Unspecified open wound, right lower leg, initial encounter (principal); I13.0 Hypertensive heart and chronic kidney disease with heart failure and stage 1 through stage 4 chronic kidney disease, or unspecified chronic kidney disease; I50.9 Heart failure, unspecified; N18.9 Chronic kidney disease, unspecified; R42 Dizziness and giddiness; E03.9 Hypothyroidism, unspecified; Z79.01 Long term (current) use of anticoagulants; Z86.718 Personal history of other venous thrombosis and embolism; X58.XXXA Exposure to other specified factors, initial encounter
CPT/HCPCS: 85027; 99282

== ENCOUNTER → 2022-11-19 10:27 | Outpatient (BNVA) | payer MEDICARE, SELFPAY | PROVIDERS: PCP Family Medicine; Referring Provider Family Medicine; Visit Provider Surgery | DX: Z51.89 Encounter for other specified aftercare (principal); S81.801D Unspecified open wound, right lower leg, subsequent encounter; X58.XXXD Exposure to other specified factors, subsequent encounter; I87.2 Venous insufficiency (chronic) (peripheral); N18.4 Chronic kidney disease, stage 4 (severe); I73.9 Peripheral vascular disease, unspecified; R29.6 Repeated falls; M62.81 Muscle weakness (generalized) | CPT/HCPCS: 99213 ==

== ENCOUNTER → 2022-11-25 10:24 | Outpatient (BNVA) | payer MEDICARE, SELFPAY | PROVIDERS: Visit Provider Surgery | DX: Z51.89 Encounter for other specified aftercare (principal); S81.801D Unspecified open wound, right lower leg, subsequent encounter; X58.XXXD Exposure to other specified factors, subsequent encounter; I73.9 Peripheral vascular disease, unspecified | CPT/HCPCS: 11042; 99213 ==

== ENCOUNTER 2022-12-01 17:05 | Emergency (ER) | payer MEDICARE, SELFPAY ==
[2022-12-01 17:10] VITALS: BP 146/79; PULSE 92; RESP 16; TEMP 36.4; O2SAT 91
[2022-12-01 17:21] VITALS: BP 158/83; PULSE 79; O2SAT 100
[2022-12-01 17:31] VITALS: BP 145/74; PULSE 74; O2SAT 100
--- NOTE | 2022-12-01 17:32 | ED.GENADUL_ITS ---
Discharge Plan Disposition Patient Disposition: Home Condition: Improving Discharge Details Clinical Impression: Cellulitis of leg, right, Venous insufficiency of both lower extremities, Venous stasis dermatitis of both lower extremities Primary Care Provider: Semaj Patricio ED Provider: Santiago Phipps Home Meds and New Rx's Prescriptions: New cephalexin 500 mg tablet 500 mg PO TID 7 Days Qty: 21 0RF Continued furosemide [Lasix] 40 mg tablet 60 mg PO DAILY Patient Comments: pt. reports if it is in his blister pack he took it vitamin B complex Tablet 1 tab PO DAILY Ofev 150 mg capsule 150 mg PO Q12H Qty: 60 12RF pantoprazole 40 mg tablet,delayed release (DR/EC) 40 mg PO DAILY Patient Comments: pt. unsure if it is in blister pack Breztri Aerosphere 160-9-4.8 mcg/actuation HFA aerosol inhaler 2 inh inhalation BID apixaban 2.5 mg tablet 2.5 mg PO BID nitroglycerin [Nitrostat] 0.4 mg tablet, sublingual 0.4 mg SL Q5-15M PRN albuterol sulfate [ProAir HFA] 90 mcg/actuation HFA aerosol inhaler 2 puff IH Q6H PRN Patient Comments: 2 puffs PO every 4 hrs PRN per [facility] Oxygen Tank See Rx Instructions .Route Qty: 1 0RF Patient Comments: pt. states he has not been using it. Pt. came in wearing a pulse oximeter around neck, O2 sat normally between 95-98 Rx Instructions: 3Lpm at rest continuous via Nasal Cannula and 8Lpm during exertion continuous via Nasal Cannula fluticasone propionate [Allergy Relief (fluticasone)] 50 mcg/actuation spray,suspension 1 spray intranasal BID Rx Instructions: administer into each nostril acetaminophen [Tylenol Extra Strength] 500 mg tablet 500 mg PO Q4H PRN Patient Comments: 1 tab PO every 4 hrs PRN per [facility] potassium chloride [Klor-Con M20] 20 mEq tablet,ER particles/crystals 10 meq PO BID prednisone 2.5 mg tablet 7.5 mg PO DAILY midodrine 2.5 mg tablet 5 mg PO TID Santyl 250 unit/gram ointment 1 applic topical DAILY Qty: 30 2RF Patient Comments: pt think home health has being doing that Rx Instructions: Apply thin coating of Santyl ointment to open wounds. Cover with bandage. Change daily. ibuprofen 400 mg tablet 400 mg PO Q6H PRN (Reason: pain) Qty: 20 0RF levothyroxine 75 MCG tablet 75 mcg PO DAILY ropinirole 2 MG tablet 2 mg PO HS sertraline 25 mg tablet 25 mg PO DAILY Patient Comments: TAKE 1 TABLET BY MOUTH EVERY DAY finasteride 5 mg tablet 5 mg PO DAILY Patient Comments: TAKE 1 TABLET BY MOUTH EVERY DAY, pt. thinks it is in his blister pack tamsulosin 0.4 mg capsule 0.8 mg PO DAILY Patient Comments: Take 2 capsule by mouth once a day montelukast 10 mg tablet 10 mg PO DAILY Patient Comments: TAKE 1 TABLET BY MOUTH DAILY cetirizine 10 mg Tablet 5 mg PO DAILY Qty: 0 0RF Patient Comments: pt. states i couldnt tell you Eliquis 5 mg Tablet 5 mg PO BID Qty: 0 0RF Hold Instructions: Resume on 09/30/22. Bio-K plus 50 billion cell capsule,delayed release(DR/EC) 1 cap PO DAILY Patient Comments: 1 cap PO TID x 2 months (starting 11/20/21) per Bharat TIDWELL. Pt. thinks it is in his blister pack Discharge Instructions Additional Instructions: Please call radiology after 7 AM tomorrow morning at [phone] for an appointment time to have your right lower extremity ultrasound performed. Medical Decision Making This is an 82-year-old male who has a history of PE, arterial and venous insufficiency of the bilateral lower extremity, venous stasis ulcers, who is chronically maintained on Eliquis for his pulmonary embolisms. On November 16 he suffered an injury to the right anterior tibia for which she has followed with surgery. He has been on and off of his blood thinner for approximately 2 weeks. States today that he has not had the blood thinner in 2 or 3 days due to lack of the medication secondary to confusion with his pharmacist. He has plans to fill the medication tomorrow. On exam today the patient's right lower extremity is slightly edematous with mild erythema and warmth to the touch. He is high risk for a wound infection. Additionally, given the lack of ongoing anticoagulation on a consistent basis he is at risk for DVT. I will place the patient on Keflex for cellulitis. He will return tomorrow morning for a outpatient ultrasound. He is given 5 mg of apixaban tonight and an additional dose for tomorrow morning. He has follow-up with Dr. Polanco in surgery clinic at 10 AM tomorrow. He is instructed to call for an appointment time prior to the general surgery office visit. [facility] General Mode of arrival: ambulatory . Date/Time Provider Initiated Documentation: 12/01/22 17:07 . Limitations to Documentation: no limitations . Information obtained by: patient and family . History of Present Illness 82 year old M presents to the emergency department with the chief complaint of Right lower extremity swelling, erythema, described as moderate, Quality is described as constant, and is localized to the right and lower extremity. Patient reports no radiation. Patient started experiencing this day(s) No relieving factors improve symptom(s), No exacerbating factors reported . Patient notes rash; denies chest pain, cough, shortness of breath and weakness. Patient did receive the following treatments prior to arrival, none Related Data Home Medications Medication Instructions Recorded Confirmed levothyroxine 75 mcg tablet 75 mcg PO DAILY 12/03/16 11/28/22 ropinirole 2 mg tablet 2 mg PO HS 12/03/16 11/28/22 nitroglycerin 0.4 mg sublingual 0.4 mg sublingual Q5-15M PRN 07/30/19 11/28/22 tablet (Nitrostat) finasteride 5 mg tablet 5 mg PO DAILY 08/27/21 11/28/22 sertraline 25 mg tablet 25 mg PO DAILY 08/27/21 11/28/22 montelukast 10 mg tablet 10 mg PO DAILY 10/24/21 11/28/22 tamsulosin 0.4 mg capsule 0.8 mg PO DAILY 10/24/21 11/28/22 apixaban 5 mg tablet (Eliquis) 5 mg PO BID #0 tabs 11/20/21 11/28/22 cetirizine 10 mg tablet 5 mg PO DAILY #0 tabs 11/20/21 11/28/22 L. acidophilus,casei,rhamnosus 50 1 cap PO DAILY 12/12/21 11/28/22 billion cell capsule,delayed release (Bio-K plus) albuterol sulfate 90 mcg/actuation 2 puff inhalation Q6H PRN 12/12/21 11/28/22 aerosol inhaler (ProAir HFA) nintedanib 150 mg capsule (Ofev) 150 mg PO Q12H #60 caps 12/12/21 11/28/22 vitamin B complex 1 tab PO DAILY 12/12/21 11/28/22 Oxygen #1 ea 01/01/22 11/28/22 furosemide 40 mg tablet (Lasix) 60 mg PO DAILY 01/03/22 11/28/22 budesonide 160 mcg-glycopyr 9 2 inh inhalation BID 07/30/22 11/28/22 mcg-formot 4.8 mcg/actuation HFA inhaler (Breztri Aerosphere) pantoprazole 40 mg tablet,delayed 40 mg PO DAILY 07/30/22 11/28/22 release acetaminophen 500 mg tablet 500 mg PO Q4H PRN 08/06/22 11/28/22 (Tylenol Extra Strength) fluticasone propionate 50 1 spray intranasal BID 08/06/22 11/28/22 mcg/actuation nasal spray,suspension (Allergy Relief (fluticasone)) midodrine 2.5 mg tablet 5 mg PO TID 08/06/22 11/28/22 potassium chloride 20 mEq 10 meq PO BID 08/06/22 11/28/22 tablet,extended release(part/cryst) (Klor-Con M) prednisone 2.5 mg tablet 7.5 mg PO DAILY 08/06/22 11/28/22 ibuprofen 400 mg tablet 400 mg PO Q6H PRN pain #20 tabs 08/09/22 11/28/22 collagenase clostridium histo. 250 1 applic topical DAILY wound #30 09/25/22 11/28/22 unit/gram topical ointment (Santyl) grams apixaban 2.5 mg tablet 2.5 mg PO BID 11/25/22 11/28/22 cephalexin 500 mg tablet 500 mg PO TID 7 days #21 tabs 12/01/22 Previous Rx's Medication Instructions Recorded apixaban 5 mg tablet (Eliquis) 5 mg PO BID #0 tabs 11/20/21 cetirizine 10 mg tablet 5 mg PO DAILY #0 tabs 11/20/21 nintedanib 150 mg capsule (Ofev) 150 mg PO Q12H #60 caps 12/12/21 Oxygen #1 ea 01/01/22 ibuprofen 400 mg tablet 400 mg PO Q6H PRN pain #20 tabs 08/09/22 collagenase clostridium histo. 250 1 applic topical DAILY wound #30 09/25/22 unit/gram topical ointment (Santyl) grams cephalexin 500 mg tablet 500 mg PO TID 7 days #21 tabs 12/01/22 Allergies Allergy/AdvReac Type Severity Reaction Status Date / Time Sulfa (Sulfonamide AdvReac Intermediate Its been Verified 11/25/22 10:44 Antibiotics) along time cat dander AdvReac Mild Verified 11/25/22 10:44 penicillin V AdvReac Mild nausea Verified 11/25/22 10:44 salicylates AdvReac Mild up set Verified 11/25/22 10:44 stomach voriconazole AdvReac Mild Visual Verified 11/25/22 10:44 Disturbances General Stated Complaint: Trauma BRYCE: 3 Review of Systems Narrative: Has run out of his Eliquis, plans to fill tomorrow. No fever or chills. Mild swelling of the right leg. 6 systems reviewed and otherwise negative PFSH All Active Problems (Updated 12/01/22 @ 17:36 by Santiago Phipps MD) Cellulitis of leg, right (Acute) Decubitus ulcer of coccygeal region, stage 2 (Acute) Traumatic open wound of right lower leg (Acute) Pulmonary emboli (Chronic) Frequent falls (Acute) Generalized muscle weakness (Acute) Wound of right leg (Acute) Hemorrhage from wound (Acute) Venous stasis dermatitis of both lower extremities (Acute) Venous stasis ulcer limited to breakdown of skin with varicose veins (Acute) Venous stasis ulcer of ankle with fat layer exposed without varicose veins (Acute) Chronic venous insufficiency of lower extremity (Acute) Venous insufficiency of both lower extremities (Acute) Chronic renal failure, stage 4 (severe) (Acute) PAD (peripheral artery disease) (Chronic) Sleep apnea (Chronic) History of pulmonary embolism (Acute) Advanced care planning/counseling discussion (Acute) DNR (do not resuscitate) (Acute) PMR (polymyalgia rheumatica) (Acute) Pulmonary hypertension (Acute) Idiopathic pulmonary fibrosis (Acute) Orthostatic hypotension (Acute) Neuropathy (Acute) Anticoagulated (Acute) Pain in left foot (Acute) Acute arthritis (Acute) Ankle pain, chronic (Acute) Medical History Abdominal aortic aneurysm Acute kidney injury superimposed on chronic kidney disease Anemia, mild BCC (basal cell carcinoma) Bilateral pneumonia BPH (benign prostatic hyperplasia) Chest pain CHF (congestive heart failure) Chronic ethmoidal sinusitis Chronic frontal sinusitis Chronic kidney disease Chronic lower back pain Deviated nasal septum Dilated aortic root Discharge planning issues DVT prophylaxis E coli bacteremia Elevated creatine kinase Fractured rib mid May 2019 Generalized osteoarthrosis Gout H/O urinary frequency Headache History of depression History of IBS Hx of colonic polyps Hx of hemorrhoids pt. reports a procedure on hemorrhoids Hx of Lyme disease Hx of pyelonephritis Hypertension Hypokalemia Hypothyroidism Kidney stone Lichen planus Lyme disease Nasal septal spur Nasal turbinate hypertrophy Neck pain On home oxygen therapy Orthostatic dizziness Pain, joint, hip, right Palliative care encounter Palliative care patient Palliative care patient Parkinsons pt. states he does not have Pneumonia Polymyalgia rheumatica pt. reports he has this not parkinsons Pulmonary fat embolism Pulmonary fibrosis Pulmonary infiltrates Pyelonephritis due to Escherichia coli Restless leg syndrome Severe muscle deconditioning Sinus bradycardia Skin breakdown Trochanteric bursitis Venous insufficiency Surgical History Hx of colonoscopy Hx of inguinal hernia surgery Hx of total hip arthroplasty right Social History Smoking/Tobacco Use Status: Former Tobacco Use Quit Date: 09/08/81 Smoking risk assessment performed?: Yes Alcohol Intake: current Alcohol Intake frequency: 0-2 drinks per day Alcohol type: beer, wine and hard liquor Drug use: Never Substance use type: does not use Details: alcohol: t-2, couple drinks Do you feel safe at home: Yes Do you feel safe in your relationship?: Yes Additional Social history: Abby alfarotbor/friend [phone] 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 Sister is in area. Exam Narrative Exam Narrative: GEN: awake, alert, oriented 3. Pleasant, well groomed, interactive. HEAD: Normocephalic, atraumatic ENT: Mucous membranes moist, oropharynx unremarkable, External ear exam unremarkable EYES: PERRL, EOMI NECK: Full ROM, no JUAN PABLO, no menigismus CHEST/RESP: Nontender, clear to auscultation bilateral, no wheeze/rhonchi/rales CARDIOVASCULAR: RRR, no murmur, rub marisela. 2+ Rad pulse bilateral EXT: Full ROM, bilateral 1+ edema, the right lower extremity is mildly warm, there is a healing wound to the anterior tibia on the right leg that is dressed, clean dry and intact. There is mild anterior tibia erythema that is warm to the touch of the right leg. Neuro: Grossly normal neurologic exam, conversant, interactive. Psych: Speech fluent, thoughts congruent, affect normal Course Vital Signs Vital signs: Vital Signs Temperature 36.4 C L 12/01/22 17:10 Pulse 92 H 12/01/22 17:10 Respiratory Rate 16 12/01/22 17:10 Blood Pressure 146/79 H 12/01/22 17:10 Pulse Oximetry 91 L 12/01/22 17:10 Temperature 36.4 C L 12/01/22 17:10 Temperature Source Oral 12/01/22 17:10 Pulse 92 H 12/01/22 17:10 Respiratory Rate 16 12/01/22 17:10 Blood Pressure 146/79 H 12/01/22 17:10 Blood Pressure Position Supine 12/01/22 17:10 Pulse Oximetry 91 L 12/01/22 17:10 Oxygen Delivery Method Room Air 12/01/22 17:10 Oxygen Flow Rate 0 12/01/22 17:10 Pain Level 6 12/01/22 17:10 Comment worse with palpation 12/01/22 17:10
[2022-12-01 18:01] VITALS: BP 140/71; PULSE 72; O2SAT 100
[2022-12-01 18:16] VITALS: BP 146/72; PULSE 77; O2SAT 99
[2022-12-01] MEDS: Apixaban 2.5 MG TAB PO ×2 (18:18)
[2022-12-01 18:38] VITALS: TEMP 36.6
== END 2022-12-01 18:35 | disposition home or self-care (01) ==
PROVIDERS: Emergency Provider Emergency Medicine; PCP Internal Medicine
DX: L03.115 Cellulitis of right lower limb (principal); I83.12 Varicose veins of left lower extremity with inflammation; I83.11 Varicose veins of right lower extremity with inflammation; I87.2 Venous insufficiency (chronic) (peripheral)
CPT/HCPCS: 36415; 99283; 99284

== ENCOUNTER 2022-12-02 11:36 | Outpatient (CLI) | payer MEDICARE, SELFPAY ==
--- NOTE | 2022-12-02 | DI.US_ITS ---
Exam(s) US LOWER EXTREMITY VENOUS RT EXAM: US LOWER EXTREMITY VENOUS RT CLINICAL HISTORY: RT LEG SWELLING, R22.41. TECHNIQUE: Lower extremity venous ultrasound performed using grayscale, color-flow, and spectral Do ppler analysis. COMPARISON: No exams were available for comparison FINDINGS: The common femoral, femoral and popliteal veins demonstrate normal compressibility, augmentation, and color Doppler. The posterior tibial veins are patent. The peroneal veins were not well seen in the calf. No saphenous vein thrombosis or other superficial venous thrombosis is seen. There is edema i n the subcutaneous fat of the lower leg. No hematoma or Lang's cyst is seen. IMPRESSION: Lower leg edema.. No evidence of DVT. DATA REPOSITORY:
== END 2022-12-02 11:56 ==
LOC: DI 11:43
PROVIDERS: PCP Internal Medicine; Visit Provider Emergency Medicine
DX: R22.41 Localized swelling, mass and lump, right lower limb (principal)
CPT/HCPCS: 99213; 93971

== ENCOUNTER 2022-12-02 13:35 | Emergency (ER) | payer MEDICARE, SELFPAY ==
[2022-12-02 13:43] VITALS: BP 109/60; PULSE 89; RESP 20; TEMP 36.7; O2SAT 100
--- NOTE | 2022-12-02 13:57 | W.ED.GENAD ---
Discharge Plan Disposition Patient Disposition: Home Condition: Stable Discharge Details Clinical Impression: Encounter to discuss test results Primary Care Provider: Semaj Patricio ED Provider: Haritha Garland Home Meds and New Rx's Prescriptions: Continued furosemide [Lasix] 40 mg tablet 60 mg PO DAILY Patient Comments: pt. reports if it is in his blister pack he took it vitamin B complex Tablet 1 tab PO DAILY Ofev 150 mg capsule 150 mg PO Q12H Qty: 60 12RF pantoprazole 40 mg tablet,delayed release (DR/EC) 40 mg PO DAILY Patient Comments: pt. unsure if it is in blister pack Breztri Aerosphere 160-9-4.8 mcg/actuation HFA aerosol inhaler 2 inh inhalation BID apixaban 2.5 mg tablet 2.5 mg PO BID nitroglycerin [Nitrostat] 0.4 mg tablet, sublingual 0.4 mg SL Q5-15M PRN albuterol sulfate [ProAir HFA] 90 mcg/actuation HFA aerosol inhaler 2 puff IH Q6H PRN Patient Comments: 2 puffs PO every 4 hrs PRN per [facility] ([facility]) Oxygen Tank See Rx Instructions .Route Qty: 1 0RF Patient Comments: pt. states he has not been using it. Pt. came in wearing a pulse oximeter around neck, O2 sat normally between 95-98 Rx Instructions: 3Lpm at rest continuous via Nasal Cannula and 8Lpm during exertion continuous via Nasal Cannula fluticasone propionate [Allergy Relief (fluticasone)] 50 mcg/actuation spray,suspension 1 spray intranasal BID Rx Instructions: administer into each nostril acetaminophen [Tylenol Extra Strength] 500 mg tablet 500 mg PO Q4H PRN Patient Comments: 1 tab PO every 4 hrs PRN per [facility] potassium chloride [Klor-Con M20] 20 mEq tablet,ER particles/crystals 10 meq PO BID prednisone 2.5 mg tablet 7.5 mg PO DAILY midodrine 2.5 mg tablet 5 mg PO TID Santyl 250 unit/gram ointment 1 applic topical DAILY Qty: 30 2RF Patient Comments: pt think home health has being doing that Rx Instructions: Apply thin coating of Santyl ointment to open wounds. Cover with bandage. Change daily. ibuprofen 400 mg tablet 400 mg PO Q6H PRN (Reason: pain) Qty: 20 0RF cephalexin 500 mg tablet 500 mg PO TID 7 Days Qty: 21 0RF levothyroxine 75 MCG tablet 75 mcg PO DAILY ropinirole 2 MG tablet 2 mg PO HS sertraline 25 mg tablet 25 mg PO DAILY Patient Comments: TAKE 1 TABLET BY MOUTH EVERY DAY finasteride 5 mg tablet 5 mg PO DAILY Patient Comments: TAKE 1 TABLET BY MOUTH EVERY DAY, pt. thinks it is in his blister pack tamsulosin 0.4 mg capsule 0.8 mg PO DAILY Patient Comments: Take 2 capsule by mouth once a day montelukast 10 mg tablet 10 mg PO DAILY Patient Comments: TAKE 1 TABLET BY MOUTH DAILY cetirizine 10 mg Tablet 5 mg PO DAILY Qty: 0 0RF Patient Comments: pt. states i couldnt tell you Eliquis 5 mg Tablet 5 mg PO BID Qty: 0 0RF Hold Instructions: Resume on 09/30/22. Bio-K plus 50 billion cell capsule,delayed release(DR/EC) 1 cap PO DAILY Patient Comments: 1 cap PO TID x 2 months (starting 11/20/21) per Bharat TIDWELL. Pt. thinks it is in his blister pack Discharge Instructions Instructions: Leg Pain (ED) Additional Instructions: Ultrasound is negative for DVT. Please follow-up with Dr. Polanco as scheduled. Referrals: Semaj Patricio MD [Primary Care Provider] - 3 days Discharge Data Discharge Date/Time-TO BE ENTERED AT DEPARTURE: 12/02/22 14:44 Medical Decision Making Ultrasound negative discussed results with patient who verbalized understanding. Patient to return back to general surgeon's office. This text was generated using [employer] system, please disregard any oddities of phrase or misspellings. Imaging Data Radiologic Study: Imaging: Ultrasound Radiologist's impression: EXAM: US LOWER EXTREMITY VENOUS RT CLINICAL HISTORY: RT LEG SWELLING, R22.41. TECHNIQUE: Lower extremity venous ultrasound performed using grayscale, color-flow, and spectral Doppler analysis. COMPARISON: No exams were available for comparison FINDINGS: The common femoral, femoral and popliteal veins demonstrate normal compressibility, augmentation, and color Doppler. The posterior tibial veins are patent. The peroneal veins were not well seen in the calf. No saphenous vein thrombosis or other superficial venous thrombosis is seen. There is edema in the subcutaneous fat of the lower leg. No hematoma or Lang's cyst is seen. IMPRESSION: Lower leg edema.. No evidence of DVT. HPI General Mode of arrival: ambulatory. Date/Time Provider Initiated Documentation: 12/02/22 13:56. Limitations to Documentation: no limitations. Information obtained by: patient, RN notes reviewed and old records reviewed. HPI Narrative: 82-year-old male presents to the ER for ultrasound results of his right lower extremity. Patient was seen here recently and was prescribed antibiotic for cellulitis. Related Data Home Medications Medication Instructions Recorded Confirmed levothyroxine 75 mcg tablet 75 mcg PO DAILY 12/03/16 11/28/22 ropinirole 2 mg tablet 2 mg PO HS 12/03/16 11/28/22 nitroglycerin 0.4 mg sublingual 0.4 mg sublingual Q5-15M PRN 07/30/19 11/28/22 tablet (Nitrostat) finasteride 5 mg tablet 5 mg PO DAILY 08/27/21 11/28/22 sertraline 25 mg tablet 25 mg PO DAILY 08/27/21 11/28/22 montelukast 10 mg tablet 10 mg PO DAILY 10/24/21 11/28/22 tamsulosin 0.4 mg capsule 0.8 mg PO DAILY 10/24/21 11/28/22 apixaban 5 mg tablet (Eliquis) 5 mg PO BID #0 tabs 11/20/21 11/28/22 cetirizine 10 mg tablet 5 mg PO DAILY #0 tabs 11/20/21 11/28/22 L. acidophilus,casei,rhamnosus 50 1 cap PO DAILY 12/12/21 11/28/22 billion cell capsule,delayed release (Bio-K plus) albuterol sulfate 90 mcg/actuation 2 puff inhalation Q6H PRN 12/12/21 11/28/22 aerosol inhaler (ProAir HFA) nintedanib 150 mg capsule (Ofev) 150 mg PO Q12H #60 caps 12/12/21 11/28/22 vitamin B complex 1 tab PO DAILY 12/12/21 11/28/22 Oxygen #1 ea 01/01/22 11/28/22 furosemide 40 mg tablet (Lasix) 60 mg PO DAILY 01/03/22 11/28/22 budesonide 160 mcg-glycopyr 9 2 inh inhalation BID 07/30/22 11/28/22 mcg-formot 4.8 mcg/actuation HFA inhaler (Breztri Aerosphere) pantoprazole 40 mg tablet,delayed 40 mg PO DAILY 07/30/22 11/28/22 release acetaminophen 500 mg tablet 500 mg PO Q4H PRN 08/06/22 11/28/22 (Tylenol Extra Strength) fluticasone propionate 50 1 spray intranasal BID 08/06/22 11/28/22 mcg/actuation nasal spray,suspension (Allergy Relief (fluticasone)) midodrine 2.5 mg tablet 5 mg PO TID 08/06/22 11/28/22 potassium chloride 20 mEq 10 meq PO BID 08/06/22 11/28/22 tablet,extended release(part/cryst) (Klor-Con M) prednisone 2.5 mg tablet 7.5 mg PO DAILY 08/06/22 11/28/22 ibuprofen 400 mg tablet 400 mg PO Q6H PRN pain #20 tabs 08/09/22 11/28/22 collagenase clostridium histo. 250 1 applic topical DAILY wound #30 09/25/22 11/28/22 unit/gram topical ointment (Santyl) grams apixaban 2.5 mg tablet 2.5 mg PO BID 11/25/22 11/28/22 cephalexin 500 mg tablet 500 mg PO TID 7 days #21 tabs 12/01/22 Previous Rx's Medication Instructions Recorded apixaban 5 mg tablet (Eliquis) 5 mg PO BID #0 tabs 11/20/21 cetirizine 10 mg tablet 5 mg PO DAILY #0 tabs 11/20/21 nintedanib 150 mg capsule (Ofev) 150 mg PO Q12H #60 caps 12/12/21 Oxygen #1 ea 01/01/22 ibuprofen 400 mg tablet 400 mg PO Q6H PRN pain #20 tabs 08/09/22 collagenase clostridium histo. 250 1 applic topical DAILY wound #30 09/25/22 unit/gram topical ointment (Santyl) grams cephalexin 500 mg tablet 500 mg PO TID 7 days #21 tabs 12/01/22 Allergies Allergy/AdvReac Type Severity Reaction Status Date / Time Sulfa (Sulfonamide AdvReac Intermediate Its been Verified 11/25/22 10:44 Antibiotics) along time cat dander AdvReac Mild Verified 11/25/22 10:44 penicillin V AdvReac Mild nausea Verified 11/25/22 10:44 salicylates AdvReac Mild up set Verified 11/25/22 10:44 stomach voriconazole AdvReac Mild Visual Verified 11/25/22 10:44 Disturbances General Stated Complaint: [facility] BRYCE: 4 Review of Systems Musculoskeletal Musculoskeletal: Reports as per HPI PFSH All Active Problems Cellulitis of leg, right (Acute) Encounter to discuss test results (Acute) Decubitus ulcer of coccygeal region, stage 2 (Acute) Traumatic open wound of right lower leg (Acute) Pulmonary emboli (Chronic) Frequent falls (Acute) Generalized muscle weakness (Acute) Wound of right leg (Acute) Hemorrhage from wound (Acute) Venous stasis dermatitis of both lower extremities (Acute) Venous stasis ulcer limited to breakdown of skin with varicose veins (Acute) Venous stasis ulcer of ankle with fat layer exposed without varicose veins (Acute) Chronic venous insufficiency of lower extremity (Acute) Venous insufficiency of both lower extremities (Acute) Chronic renal failure, stage 4 (severe) (Acute) PAD (peripheral artery disease) (Chronic) Sleep apnea (Chronic) History of pulmonary embolism (Acute) Advanced care planning/counseling discussion (Acute) DNR (do not resuscitate) (Acute) PMR (polymyalgia rheumatica) (Acute) Pulmonary hypertension (Acute) Idiopathic pulmonary fibrosis (Acute) Orthostatic hypotension (Acute) Neuropathy (Acute) Anticoagulated (Acute) Pain in left foot (Acute) Acute arthritis (Acute) Ankle pain, chronic (Acute) Medical History Abdominal aortic aneurysm Acute kidney injury superimposed on chronic kidney disease Anemia, mild BCC (basal cell carcinoma) Bilateral pneumonia BPH (benign prostatic hyperplasia) Chest pain CHF (congestive heart failure) Chronic ethmoidal sinusitis Chronic frontal sinusitis Chronic kidney disease Chronic lower back pain Deviated nasal septum Dilated aortic root Discharge planning issues DVT prophylaxis E coli bacteremia Elevated creatine kinase Fractured rib mid Sept 2018 Generalized osteoarthrosis Gout H/O urinary frequency Headache History of depression History of IBS Hx of colonic polyps Hx of hemorrhoids pt. reports a procedure on hemorrhoids Hx of Lyme disease Hx of pyelonephritis Hypertension Hypokalemia Hypothyroidism Kidney stone Lichen planus Lyme disease Nasal septal spur Nasal turbinate hypertrophy Neck pain On home oxygen therapy Orthostatic dizziness Pain, joint, hip, right Palliative care encounter Palliative care patient Palliative care patient Parkinsons pt. states he does not have Pneumonia Polymyalgia rheumatica pt. reports he has this not parkinsons Pulmonary fat embolism Pulmonary fibrosis Pulmonary infiltrates Pyelonephritis due to Escherichia coli Restless leg syndrome Severe muscle deconditioning Sinus bradycardia Skin breakdown Trochanteric bursitis Venous insufficiency Surgical History Hx of colonoscopy Hx of inguinal hernia surgery Hx of total hip arthroplasty right Social History Smoking/Tobacco Use Status: Former Tobacco Use Quit Date: 09/08/81 Smoking risk assessment performed?: Yes Alcohol Intake: current Alcohol Intake frequency: 0-2 drinks per day Alcohol type: beer, wine and hard liquor Drug use: Never Substance use type: does not use Details: alcohol: t-2, couple drinks Do you feel safe at home: Yes Do you feel safe in your relationship?: Yes Additional Social history: Abby alfarotbor/friend [phone] 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 Sister is in area. Exam Const General: cooperative, comfortable and well developed Nutritional Appearance: average body habitus and well nourished Orientation: alert, awake and oriented x3 Resp Effort & Inspection: normal respiratory effort and able to speak in complete sentences Course Vital Signs Vital signs: Vital Signs Temperature 36.7 C 12/02/22 13:43 Pulse 89 12/02/22 13:43 Respiratory Rate 20 12/02/22 13:43 Blood Pressure 109/60 12/02/22 13:43 Pulse Oximetry 100 12/02/22 13:43 Temperature 36.7 C 12/02/22 13:43 Temperature Source Oral 12/02/22 13:43 Pulse 89 12/02/22 13:43 Respiratory Rate 20 12/02/22 13:43 Blood Pressure 109/60 12/02/22 13:43 Blood Pressure Position Sitting 12/02/22 13:43 Pulse Oximetry 100 12/02/22 13:43 Oxygen Delivery Method Room Air 12/02/22 13:43 Oxygen Flow Rate 0 12/02/22 13:43 Pain Level 5 12/02/22 13:43
== END 2022-12-02 14:44 | disposition home or self-care (01) ==
PROVIDERS: Emergency Provider Registered Nurse Emergency; PCP Internal Medicine
DX: Z00.8 Encounter for other general examination (principal)

== ENCOUNTER → 2022-12-05 09:51 | Outpatient (BNVA) | payer MEDICARE, SELFPAY | PROVIDERS: PCP Internal Medicine; Referring Provider Internal Medicine; Visit Provider Surgery | DX: L03.115 Cellulitis of right lower limb (principal); L89.152 Pressure ulcer of sacral region, stage 2; I87.2 Venous insufficiency (chronic) (peripheral); S81.801D Unspecified open wound, right lower leg, subsequent encounter; X58.XXXD Exposure to other specified factors, subsequent encounter | CPT/HCPCS: 11042; 99212 ==

== ENCOUNTER 2022-12-18 17:34 | Emergency (ER) | payer MEDICARE, SELFPAY ==
[2022-12-18] VITALS (8 sets, daily range): BP systolic 144–164; BP diastolic 76–97; PULSE 72–98; RESP 12–21; TEMP 36.1; O2SAT 95
--- NOTE | 2022-12-18 17:30 | RT.EKG_ITS ---
APPROVED REPORT Exam: Resting ECG Reason for Exam: Irregular heart beat Patient Location: E HR:86 bpm ECG Measurements Heart Rate 86 AXIS VA 155 P 4 QRSd 120 QRS -37 QT 391 T 97 QTc 452 Conclusion Sinus rhythm...normal P axis, V-rate 60- 99 LVH with secondary repolarization abnormality...multi-LVH criteria, abnrm ST-T
--- NOTE | 2022-12-18 18:00 | DI.RAD_ITS ---
Exam(s) XR PORTABLE CHEST AP EXAM: XR PORTABLE CHEST AP CLINICAL HISTORY: chest pain TECHNIQUE: 2D digital imaging was performed. COMPARISON: CR XR CHEST 2V PA LATERAL from 12/05/[address] CHEST WO from 07/02/2022 FINDINGS: LUNGS: Chronic fibrotic changes. Focal area of consolidation. No pleural abnormality seen. HEART: Mildly enlarged. AORTA: Tortuous, unchanged. BONES: Scoliosis and degenerative changes. Soft tissues: Unremarkable. IMPRESSION: No acute findings. DATA REPOSITORY: RADIATION DOSE DELIVERED:
[2022-12-18 18:09] LABS: Abs Immature Grans 0.03 10^3/uL (0.0-0.06); Absolute Basophil Count 0.02 10^3/uL (0.0-0.2); Absolute Eosinophil Count 0.02 10^3/uL (0.0-0.7); Absolute Lymphocyte Count 0.64 10^3/uL (1.2-3.4); Absolute Monocyte Count 0.48 10^3/uL (0.1-0.8); Basophils % 0.2; Eosinophils % 0.2; HCT 33.2 % (40.0-50.0); HGB 10.4 g/dL (13.5-17.5); Immature Grans % 0.3; MCH 30.6 pg (27.0-33.0); MCHC 31.3 % (32.0-36.0); MCV 98 fL (80-95); MPV 10.2 fL (8.0-11.0); Monocytes % 5.3; Platelet Count 247 10^3/uL (130-400); RDW 15.2 % (11.8-14.1); RDW-SD 54.4 fL; WBC 9.09 10^3/uL (4.4-10.8)
[2022-12-18 18:27] LABS: ALT 17 U/L (16-63); AST 16 U/L (15-37); Albumin 3.7 g/dL (3.4-5.0); Alkaline Phosphatase 68 U/L (46-116); Anion Gap 9.9 mmol/L (3-11); BUN 40 mg/dL (7-18); Bilirubin, Total 0.6 mg/dL (0.2-1.0); CO2 29.1 mmol/L (21.0-32.0); Calcium 9.6 mg/dL (8.5-10.1); Chloride 99 mmol/L (98-107); Estimated GFR 20.11 (mL/min/1.73m2); Glucose 128 mg/dL (74-106); Magnesium 1.6 mg/dL (1.8-2.4); Potassium 3.6 mmol/L (3.5-5.1); Sodium 138 mmol/L (136-145); Total Protein 7.4 g/dL (6.4-8.2); Troponin I < 50 ng/L (<or=60)
--- NOTE | 2022-12-18 18:44 | DI.VRAD_ITS ---
PROCEDURE INFORMATION: Exam: XR Chest Exam date and time: 12/18/2022 6:20 PM Age: 82 years old Clinical indication: Other: Chest pain TECHNIQUE: Imaging protocol: Radiologic exam of the chest. Views: 1 view. COMPARISON: CT CHEST WO 07/02/2022 11:22 AM FINDINGS: Lungs: Chronic interstitial prominence. No consolidation. Pleural spaces: Unremarkable. No pleural effusion. No pneumothorax. Heart/Mediastinum: Mild cardiomegaly. Tortuous aorta Bones/joints: Degenerative changes in the shoulders IMPRESSION: No acute findings. Dictated and Authenticated by: Brian Barreto MD. Ordering:GUS Churchill MD
[2022-12-18] MEDS: MAGNESIUM SULFATE 1 GM/100 ML BAG IVPB (18:55)
--- NOTE | 2022-12-18 20:35 | W.ED.GENAD ---
Discharge Plan Disposition Patient Disposition: Home Condition: Stable Discharge Details Clinical Impression: Hypomagnesemia, Anemia, Chronic kidney disease, Fatigue, Frequent PVCs Primary Care Provider: Semaj Patricio ED Provider: Zhao Camarillo Home Meds and New Rx's Prescriptions: New magnesium oxide 400 mg (241.3 mg magnesium) tablet 400 mg PO DAILY Qty: 14 0RF Continued furosemide [Lasix] 40 mg tablet 60 mg PO DAILY Patient Comments: pt. reports if it is in his blister pack he took it vitamin B complex Tablet 1 tab PO DAILY Ofev 150 mg capsule 150 mg PO Q12H Qty: 60 12RF pantoprazole 40 mg tablet,delayed release (DR/EC) 40 mg PO DAILY Patient Comments: pt. unsure if it is in blister pack Breztri Aerosphere 160-9-4.8 mcg/actuation HFA aerosol inhaler 2 inh inhalation BID apixaban 2.5 mg tablet 2.5 mg PO BID nitroglycerin [Nitrostat] 0.4 mg tablet, sublingual 0.4 mg SL Q5-15M PRN albuterol sulfate [ProAir HFA] 90 mcg/actuation HFA aerosol inhaler 2 puff IH Q6H PRN Patient Comments: 2 puffs PO every 4 hrs PRN per [facility] Oxygen Tank See Rx Instructions .Route Qty: 1 0RF Patient Comments: pt. states he has not been using it. Pt. came in wearing a pulse oximeter around neck, O2 sat normally between 95-98 Rx Instructions: 3Lpm at rest continuous via Nasal Cannula and 8Lpm during exertion continuous via Nasal Cannula fluticasone propionate [Allergy Relief (fluticasone)] 50 mcg/actuation spray,suspension 1 spray intranasal BID Rx Instructions: administer into each nostril acetaminophen [Tylenol Extra Strength] 500 mg tablet 500 mg PO Q4H PRN Patient Comments: 1 tab PO every 4 hrs PRN per [facility] potassium chloride [Klor-Con M20] 20 mEq tablet,ER particles/crystals 10 meq PO BID prednisone 2.5 mg tablet 7.5 mg PO DAILY midodrine 2.5 mg tablet 5 mg PO TID Santyl 250 unit/gram ointment 1 applic topical DAILY Qty: 30 2RF Patient Comments: pt think home health has being doing that Rx Instructions: Apply thin coating of Santyl ointment to open wounds. Cover with bandage. Change daily. ibuprofen 400 mg tablet 400 mg PO Q6H PRN (Reason: pain) Qty: 20 0RF levothyroxine 75 MCG tablet 75 mcg PO DAILY ropinirole 2 MG tablet 2 mg PO HS sertraline 25 mg tablet 25 mg PO DAILY Patient Comments: TAKE 1 TABLET BY MOUTH EVERY DAY finasteride 5 mg tablet 5 mg PO DAILY Patient Comments: TAKE 1 TABLET BY MOUTH EVERY DAY, pt. thinks it is in his blister pack tamsulosin 0.4 mg capsule 0.8 mg PO DAILY Patient Comments: Take 2 capsule by mouth once a day montelukast 10 mg tablet 10 mg PO DAILY Patient Comments: TAKE 1 TABLET BY MOUTH DAILY cetirizine 10 mg Tablet 5 mg PO DAILY Qty: 0 0RF Patient Comments: pt. states i couldnt tell you Eliquis 5 mg Tablet 5 mg PO BID Qty: 0 0RF Hold Instructions: Resume on 09/30/22. Bio-K plus 50 billion cell capsule,delayed release(DR/EC) 1 cap PO DAILY Patient Comments: 1 cap PO TID x 2 months (starting 11/20/21) per [facility]. Pt. thinks it is in his blister pack Discharge Instructions Instructions: Hypomagnesemia (ED), Premature Ventricular Contractions (ED), Fatigue (ED), Anemia (ED) Additional Instructions: Take magnesium supplement over the next 2 weeks. You have chronic anemia. Please be sure to discuss this with your doctor. Please contact your primary care physician to arrange follow-up. Return to the ER immediately for any worsening or new concerning symptoms. Referrals: Semaj Patricio MD [Primary Care Provider] - Medical Decision Making 82-year-old male with multiple medical problems including chronic kidney disease, microcytic anemia, cervical generalized muscle weakness, peripheral arterial disease, history of pulmonary embolism, pulmonary hypertension, orthostatic hypotension, here with home health nursing concern for arrhythmia on auscultation. Patient also notes chronic weakness and fatigue. Intermittent chest fullness. EKG was reviewed and interpreted by me: Please see report: Sinus rhythm 86 bpm, intermittent PVCs. Labs reviewed and initial troponin as well as delta troponin negative. Hypomagnesemia noted. I will administer magnesium 1 g IV. Chronic anemia noted. Chronic kidney disease noted. cafeteria monitor was reviewed and interpreted by me: Consistent with EKG. Ectopy did seem to improve after magnesium infusion. Chest x-ray was reviewed and interpreted by radiology: No acute findings. All results were discussed with the patient. Plan for discharge with outpatient follow-up with his PCP. I will prescribe magnesium oxide supplementation. Usual customary discharge instructions reviewed with the patient. Lab Data Lab results reviewed: Yes I reviewed the patient's lab results. Labs: Laboratory Tests Range/Units 12/18/22 12/18/22 12/18/22 18:05 18:05 20:20 WBC (4.4-10.8) 10^3/uL 9.09 RBC (4.36-5.78) 10^6/uL 3.40 L Hgb (13.5-17.5) g/dL 10.4 L Hct (40.0-50.0) % 33.2 L MCV (80-95) fL 98 H MCH (27.0-33.0) pg 30.6 MCHC (32.0-36.0) % 31.3 L RDW (11.8-14.1) % 15.2 H Plt Count (130-400) 10^3/uL 247 MPV (8.0-11.0) fL 10.2 Immature Gran % 0.3 Neutrophils % 87.0 Lymphocytes % 7.0 Monocytes % 5.3 Eosinophils % 0.2 Basophils % 0.2 Nucleated RBC % (0.0-0.3) % 0.0 Absolute Neutrophils (1.2-6.7) 10^3/uL 7.90 H Absolute Lymphocytes (1.2-3.4) 10^3/uL 0.64 L Absolute Monocytes (0.1-0.8) 10^3/uL 0.48 Absolute Eosinophils (0.0-0.7) 10^3/uL 0.02 Absolute Basophils (0.0-0.2) 10^3/uL 0.02 Sodium (136-145) mmol/L 138 Potassium (3.5-5.1) mmol/L 3.6 Chloride (98-107) mmol/L 99 Carbon Dioxide (21.0-32.0) mmol/L 29.1 Anion Gap (3-11) mmol/L 9.9 BUN (7-18) mg/dL 40 H Creatinine (0.70-1.30) mg/dL 3.0 H Est GFR (CKD-EPI 2020) (mL/min/1.73m2) 20.11 Glucose (74-106) mg/dL 128 H Calcium (8.5-10.1) mg/dL 9.6 Magnesium (1.8-2.4) mg/dL 1.6 L Total Bilirubin (0.2-1.0) mg/dL 0.6 AST (15-37) U/L 16 ALT (16-63) U/L 17 Alkaline Phosphatase (46-116) U/L 68 Troponin I (<or=60) ng/L < 50 < 50 Total Protein (6.4-8.2) g/dL 7.4 Albumin (3.4-5.0) g/dL 3.7 HPI General Mode of arrival: ambulatory. Date/Time Provider Initiated Documentation: 12/18/22 17:59. Limitations to Documentation: no limitations. Information obtained by: patient. HPI Narrative: 82-year-old male presents with chief complaint of home health nurse concerned with irregular heartbeat. Patient notes his home health nurse auscultated his heart while on routine visit today and was concerned that his heartbeat was irregular and recommended he come to the emergency department. Patient notes he otherwise would not have come to the emergency department today. He does state that he has had generalized fatigue over the past months. He does note intermittent dizziness and also intermittent feeling of fullness in his chest. Patient states he had significant illness about a year ago that required hospitalization and significant residential rehab. He states since this illness he has had generalized fatigue. Related Data Home Medications Medication Instructions Recorded Confirmed levothyroxine 75 mcg tablet 75 mcg PO DAILY 12/03/16 12/18/22 ropinirole 2 mg tablet 2 mg PO HS 12/03/16 12/18/22 nitroglycerin 0.4 mg sublingual 0.4 mg sublingual Q5-15M PRN 07/30/19 12/18/22 tablet (Nitrostat) finasteride 5 mg tablet 5 mg PO DAILY 08/27/21 12/18/22 sertraline 25 mg tablet 25 mg PO DAILY 08/27/21 12/18/22 montelukast 10 mg tablet 10 mg PO DAILY 10/24/21 12/18/22 tamsulosin 0.4 mg capsule 0.8 mg PO DAILY 10/24/21 12/18/22 apixaban 5 mg tablet (Eliquis) 5 mg PO BID #0 tabs 11/20/21 12/18/22 cetirizine 10 mg tablet 5 mg PO DAILY #0 tabs 11/20/21 12/18/22 L. acidophilus,casei,rhamnosus 50 1 cap PO DAILY 12/12/21 12/18/22 billion cell capsule,delayed release (Bio-K plus) albuterol sulfate 90 mcg/actuation 2 puff inhalation Q6H PRN 12/12/21 12/18/22 aerosol inhaler (ProAir HFA) nintedanib 150 mg capsule (Ofev) 150 mg PO Q12H #60 caps 12/12/21 12/18/22 vitamin B complex 1 tab PO DAILY 12/12/21 12/18/22 Oxygen #1 ea 01/01/22 12/08/22 furosemide 40 mg tablet (Lasix) 60 mg PO DAILY 01/03/22 12/18/22 budesonide 160 mcg-glycopyr 9 2 inh inhalation BID 07/30/22 12/18/22 mcg-formot 4.8 mcg/actuation HFA inhaler (Breztri Aerosphere) pantoprazole 40 mg tablet,delayed 40 mg PO DAILY 07/30/22 12/18/22 release acetaminophen 500 mg tablet 500 mg PO Q4H PRN 08/06/22 12/18/22 (Tylenol Extra Strength) fluticasone propionate 50 1 spray intranasal BID 08/06/22 12/18/22 mcg/actuation nasal spray,suspension (Allergy Relief (fluticasone)) midodrine 2.5 mg tablet 5 mg PO TID 08/06/22 12/18/22 potassium chloride 20 mEq 10 meq PO BID 08/06/22 12/18/22 tablet,extended release(part/cryst) (Klor-Con M) prednisone 2.5 mg tablet 7.5 mg PO DAILY 08/06/22 12/18/22 ibuprofen 400 mg tablet 400 mg PO Q6H PRN pain #20 tabs 08/09/22 12/18/22 collagenase clostridium histo. 250 1 applic topical DAILY wound #30 09/25/22 12/18/22 unit/gram topical ointment (Santyl) grams apixaban 2.5 mg tablet 2.5 mg PO BID 11/25/22 12/18/22 magnesium oxide 400 mg (241.3 mg 400 mg PO DAILY #14 tabs 12/18/22 magnesium) tablet Previous Rx's Medication Instructions Recorded apixaban 5 mg tablet (Eliquis) 5 mg PO BID #0 tabs 11/20/21 cetirizine 10 mg tablet 5 mg PO DAILY #0 tabs 11/20/21 nintedanib 150 mg capsule (Ofev) 150 mg PO Q12H #60 caps 12/12/21 Oxygen #1 ea 01/01/22 ibuprofen 400 mg tablet 400 mg PO Q6H PRN pain #20 tabs 08/09/22 collagenase clostridium histo. 250 1 applic topical DAILY wound #30 09/25/22 unit/gram topical ointment (Santyl) grams magnesium oxide 400 mg (241.3 mg 400 mg PO DAILY #14 tabs 12/18/22 magnesium) tablet Allergies Allergy/AdvReac Type Severity Reaction Status Date / Time Sulfa (Sulfonamide AdvReac Intermediate Its been Verified 12/18/22 17:44 Antibiotics) along time cat dander AdvReac Mild Verified 12/18/22 17:44 penicillin V AdvReac Mild nausea Verified 12/18/22 17:44 salicylates AdvReac Mild up set Verified 12/18/22 17:44 stomach voriconazole AdvReac Mild Visual Verified 12/18/22 17:44 Disturbances General Stated Complaint: Dizzy/Sync BRYCE: 3 PFSH All Active Problems (Updated 12/18/22 @ 21:07 by Zhao Camarillo MD) Hypomagnesemia (Acute) Anemia (Chronic) Chronic kidney disease (Chronic) Fatigue (Acute) Frequent PVCs (Acute) Hand muscle weakness (Acute) Weakness of both hands (Acute) Microcytic anemia (Acute) Cellulitis of leg, right (Acute) Encounter to discuss test results (Acute) Decubitus ulcer of coccygeal region, stage 2 (Acute) Traumatic open wound of right lower leg (Acute) Frequent falls (Acute) Generalized muscle weakness (Acute) Wound of right leg (Acute) Venous stasis dermatitis of both lower extremities (Acute) Venous stasis ulcer limited to breakdown of skin with varicose veins (Acute) Venous stasis ulcer of ankle with fat layer exposed without varicose veins (Acute) Chronic venous insufficiency of lower extremity (Acute) Venous insufficiency of both lower extremities (Acute) Chronic renal failure, stage 4 (severe) (Acute) PAD (peripheral artery disease) (Chronic) Sleep apnea (Chronic) History of pulmonary embolism (Acute) Advanced care planning/counseling discussion (Acute) DNR (do not resuscitate) (Acute) PMR (polymyalgia rheumatica) (Acute) Pulmonary hypertension (Acute) Idiopathic pulmonary fibrosis (Acute) Orthostatic hypotension (Acute) Neuropathy (Acute) Anticoagulated (Acute) Pain in left foot (Acute) Acute arthritis (Acute) Ankle pain, chronic (Acute) Medical History (Updated 12/18/22 @ 21:07 by Zhao Camarillo MD) Abdominal aortic aneurysm Acute kidney injury superimposed on chronic kidney disease Anemia, mild BCC (basal cell carcinoma) Bilateral pneumonia BPH (benign prostatic hyperplasia) Chest pain CHF (congestive heart failure) Chronic ethmoidal sinusitis Chronic frontal sinusitis Chronic kidney disease Chronic lower back pain Deviated nasal septum Dilated aortic root Discharge planning issues DVT prophylaxis E coli bacteremia Elevated creatine kinase Fractured rib mid May 2019 Generalized osteoarthrosis Gout H/O urinary frequency Headache History of depression History of IBS Hx of colonic polyps Hx of hemorrhoids pt. reports a procedure on hemorrhoids Hx of Lyme disease Hx of pyelonephritis Hypertension Hypokalemia Hypothyroidism Kidney stone Lichen planus Lyme disease Nasal septal spur Nasal turbinate hypertrophy Neck pain On home oxygen therapy Orthostatic dizziness Pain, joint, hip, right Palliative care encounter Palliative care patient Palliative care patient Parkinsons pt. states he does not have Pneumonia Polymyalgia rheumatica pt. reports he has this not parkinsons Pulmonary emboli Pulmonary fat embolism Pulmonary fibrosis Pulmonary infiltrates Pyelonephritis due to Escherichia coli Restless leg syndrome Severe muscle deconditioning Sinus bradycardia Skin breakdown Trochanteric bursitis Venous insufficiency Surgical History Hx of colonoscopy Hx of inguinal hernia surgery Hx of total hip arthroplasty right Social History Smoking/Tobacco Use Status: Former Tobacco Use Quit Date: 09/08/81 Smoking risk assessment performed?: Yes Alcohol Intake: current Alcohol Intake frequency: 0-2 drinks per day Alcohol type: beer, wine and hard liquor Drug use: Never Substance use type: does not use Details: alcohol: t-2, couple drinks Do you feel safe at home: Yes Do you feel safe in your relationship?: Yes Additional Social history: Abby alfarotbor/friend [phone] 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 Sister is in area. Exam Const General: cooperative and no acute distress HENMT Mouth: moist mucous membranes Eyes Conjunctivae: normal conjunctivae Sclera: normal sclerae Neck Neck: trachea midline and supple Resp Auscultation: clear to auscultation bilaterally, no rales, no rhonchi and no wheezes Cardio Rate: regular rate and not tachycardic Rhythm: regular rhythm GI Palpation: soft, not firm, no guarding, no masses, not rigid and nontender Skin General skin exam: no rashes or lesions noted Wounds: wounds noted (healing rt leg) Neuro General: patient alert, patient awake and tone normal Cognition: normal cognition Speech: speech normal Motor: strength 5/5 throughout Sensory Exam: no sensory deficits noted Extrem General: no edema Psych Appearance: grossly normal Mental Status: mental status grossly normal Course Vital Signs Vital signs: Vital Signs Temperature 36.1 C L 12/18/22 17:37 Pulse 93 H 12/18/22 17:37 Respiratory Rate 15 12/18/22 17:37 Blood Pressure 161/97 H 12/18/22 17:37 Pulse Oximetry 95 12/18/22 17:37 Temperature 36.1 C L 12/18/22 17:37 Temperature Source Oral 12/18/22 17:37 Pulse 74 12/18/22 19:31 Pulse 75 12/18/22 19:31 Respiratory Rate 21 12/18/22 19:31 Respiratory Effort Normal 12/18/22 17:43 Blood Pressure 144/83 H 12/18/22 19:31 Blood Pressure Mean 98 12/18/22 19:31 Blood Pressure Position Sitting 12/18/22 17:37 Pulse Oximetry 95 12/18/22 17:37 Oxygen Delivery Method Room Air 12/18/22 17:37 Oxygen Flow Rate 0 12/18/22 17:37 Pain Level 0 12/18/22 17:37 Lab/Test Results Lab/Test Results: Laboratory Tests Range/Units 12/18/22 12/18/22 18:05 18:05 WBC (4.4-10.8) 10^3/uL 9.09 RBC (4.36-5.78) 10^6/uL 3.40 L Hgb (13.5-17.5) g/dL 10.4 L Hct (40.0-50.0) % 33.2 L MCV (80-95) fL 98 H MCH (27.0-33.0) pg 30.6 MCHC (32.0-36.0) % 31.3 L RDW (11.8-14.1) % 15.2 H Plt Count (130-400) 10^3/uL 247 MPV (8.0-11.0) fL 10.2 Immature Gran % 0.3 Neutrophils % 87.0 Lymphocytes % 7.0 Monocytes % 5.3 Eosinophils % 0.2 Basophils % 0.2 Nucleated RBC % (0.0-0.3) % 0.0 Absolute Neutrophils (1.2-6.7) 10^3/uL 7.90 H Absolute Lymphocytes (1.2-3.4) 10^3/uL 0.64 L Absolute Monocytes (0.1-0.8) 10^3/uL 0.48 Absolute Eosinophils (0.0-0.7) 10^3/uL 0.02 Absolute Basophils (0.0-0.2) 10^3/uL 0.02 Sodium (136-145) mmol/L 138 Potassium (3.5-5.1) mmol/L 3.6 Chloride (98-107) mmol/L 99 Carbon Dioxide (21.0-32.0) mmol/L 29.1 Anion Gap (3-11) mmol/L 9.9 BUN (7-18) mg/dL 40 H Creatinine (0.70-1.30) mg/dL 3.0 H Est GFR (CKD-EPI 2020) (mL/min/1.73m2) 20.11 Glucose (74-106) mg/dL 128 H Calcium (8.5-10.1) mg/dL 9.6 Magnesium (1.8-2.4) mg/dL 1.6 L Total Bilirubin (0.2-1.0) mg/dL 0.6 AST (15-37) U/L 16 ALT (16-63) U/L 17 Alkaline Phosphatase (46-116) U/L 68 Troponin I (<or=60) ng/L < 50 Total Protein (6.4-8.2) g/dL 7.4 Albumin (3.4-5.0) g/dL 3.7
[2022-12-18 20:42] LABS: Troponin I < 50 ng/L (<or=60)
== END 2022-12-18 21:47 | disposition home or self-care (01) ==
PROVIDERS: Emergency Provider Student in an Organized Health Care Education/Training Program; PCP Internal Medicine
DX: I49.3 Ventricular premature depolarization (principal); N18.6 End stage renal disease; D63.1 Anemia in chronic kidney disease; E83.42 Hypomagnesemia
CPT/HCPCS: 80053; 93005; 96365; 99284; 71045; 83735; 84484; 85025; 93010; J3475

== ENCOUNTER → 2022-12-19 13:25 | Outpatient (BNVA) | payer MEDICARE, SELFPAY | PROVIDERS: PCP Internal Medicine; Referring Provider Internal Medicine; Visit Provider Surgery | DX: S91.302A Unspecified open wound, left foot, initial encounter (principal); S81.801A Unspecified open wound, right lower leg, initial encounter; I87.2 Venous insufficiency (chronic) (peripheral); X58.XXXA Exposure to other specified factors, initial encounter | CPT/HCPCS: 11042; 99212 ==

== ENCOUNTER 2022-12-25 15:41 | Outpatient (REF) | payer MEDICARE, SELFPAY ==
[2022-12-25 22:16] LABS: HCT 31.7 % (40.0-50.0); HGB 9.8 g/dL (13.5-17.5); MCH 30.2 pg (27.0-33.0); MCHC 30.9 % (32.0-36.0); MCV 98 fL (80-95); MPV 10.7 fL (8.0-11.0); Platelet Count 218 10^3/uL (130-400); RBC 3.25 10^6/uL (4.36-5.78); RDW 15.5 % (11.8-14.1); WBC 9.17 10^3/uL (4.4-10.8)
[2022-12-25 22:54] LABS: Anion Gap 7.5 mmol/L (3-11); BUN 27 mg/dL (7-18); CO2 30.5 mmol/L (21.0-32.0); CREATININE 2.5 mg/dL (0.70-1.30); Calcium 8.9 mg/dL (8.5-10.1); Chloride 100 mmol/L (98-107); Estimated GFR 25.02 (mL/min/1.73m2); Folate 16.2 ng/mL (8.6-20.0); Glucose 134 mg/dL (74-106); Magnesium 2.1 mg/dL (1.8-2.4); Potassium 3.7 mmol/L (3.5-5.1); Sodium 138 mmol/L (136-145); Vitamin B12 323 pg/mL (193-986)
[2022-12-27 17:48] LABS: Erythropoietin 104 mIU/mL (2.6 - 18.5)
== END 2022-12-25 15:42 | disposition home or self-care (01) ==
LOC: NCHCN 15:41
PROVIDERS: PCP Internal Medicine; Visit Provider Family Medicine
DX: I50.9 Heart failure, unspecified (principal); R53.1 Weakness; I87.2 Venous insufficiency (chronic) (peripheral); I10 Essential (primary) hypertension; J84.10 Pulmonary fibrosis, unspecified; E53.8 Deficiency of other specified B group vitamins; N18.4 Chronic kidney disease, stage 4 (severe)
CPT/HCPCS: 80048; 82668; 85027; 82607; 82746; 83735

== ENCOUNTER → 2023-01-02 12:55 | Outpatient (BNVA) | payer MEDICARE, SELFPAY | PROVIDERS: PCP Internal Medicine; Referring Provider Internal Medicine; Visit Provider Surgery | DX: S91.302D Unspecified open wound, left foot, subsequent encounter (principal); S81.801D Unspecified open wound, right lower leg, subsequent encounter; X58.XXXD Exposure to other specified factors, subsequent encounter; I87.2 Venous insufficiency (chronic) (peripheral); I73.9 Peripheral vascular disease, unspecified | CPT/HCPCS: 99212; 99213 ==

== ENCOUNTER → 2023-01-16 13:42 | Outpatient (BNVA) | payer MEDICARE, SELFPAY | PROVIDERS: PCP Internal Medicine; Referring Provider Internal Medicine; Visit Provider Surgery | DX: Z51.89 Encounter for other specified aftercare (principal); S91.302D Unspecified open wound, left foot, subsequent encounter; S81.801D Unspecified open wound, right lower leg, subsequent encounter; X58.XXXD Exposure to other specified factors, subsequent encounter | CPT/HCPCS: 11042; 99212 ==

== ENCOUNTER → 2023-01-30 14:09 | Outpatient (BNVA) | payer MEDICARE, SELFPAY | PROVIDERS: PCP Internal Medicine; Referring Provider Internal Medicine; Visit Provider Surgery | DX: S91.302D Unspecified open wound, left foot, subsequent encounter (principal); S81.801D Unspecified open wound, right lower leg, subsequent encounter; X58.XXXD Exposure to other specified factors, subsequent encounter; R60.0 Localized edema | CPT/HCPCS: 99212 ==

== ENCOUNTER 2023-02-17 02:42 | Outpatient (CLI) | payer MEDICARE, SELFPAY ==
--- NOTE | 2023-02-17 08:15 | DI.CT_ITS ---
Exam(s) CT CHEST WO EXAM: CT CHEST WO CLINICAL HISTORY: follow up,IDIOPATHIC PULMONARY FIBROSIS,J84.112. TECHNIQUE: Multi planar reconstructions were performed. CONTRAST MATERIAL: None COMPARISON: CT CT CHEST WO from 07/02/2022 FINDINGS: CHEST: LUNGS: Again noted is extensive bilateral pulmonary fibrosis which appears relatively stable when com pared to CT scan 07/02/2020. No obvious progression. No confluent infiltrates nor pleural effusions . No ominous pulmonary nodules. MEDIASTINUM: There is no obvious hilar nor mediastinal adenopathy. Visualized thyroid unremarkable.No obvious axillary adenopathy CARDIAC: Mild cardiomegaly again noted.No pericardial effusion. Ascending thoracic aorta is again no bobby be enlarged with diameter 4.9 cm, unchanged. Diameter of the aortic arch 3.5 cm, unchanged. Sully meter of the descending thoracic aorta is enlarged, measuring 4.3 cm proximally, 3.7 cm mid level, an d 3.8 cm distally. These measurements are unchanged from previous. PULMONARY ARTERY: right main pulmonary artery measures 3.4 cm, similar to previous. VISUALIZED UPPER ABDOMEN:No adrenal masses. Cholelithiasis noted. No evidence of acute cholecystiti s. Small calcified splenic granulomas noted. OSSEOUS: Healed right-sided rib fractures again noted. No acute fractures evident. No significant o sseous lesions.. IMPRESSION: 1. Again noted is extensive bilateral pulmonary fibrosis which appears stable when compared to CT sca n of 07/02/2022. No new infiltrates nor ominous pulmonary nodules and no pleural effusions. 2. No new intrathoracic adenopathy. 3. Cardiomegaly and dilated thoracic aorta again noted with unchanged 4.9 cm measurement of ascending thoracic aorta and other measurements as above which are also unchanged. 4. Cholelithiasis noted. No evidence of acute cholecystitis. RADIATION DOSE DELIVERED: 566.76mGy.cm Total DLP DATA REPOSITORY: All CT scans at this facility are submitted to the National Radiology Data Registry (NRDR) Dose Index Registry (DIR) with the [employer] ([employer]). RADIATION OPTIMIZATION: All CT scans at this facility use at least one of these dose optimization te chniques: automated exposure control; mA and/or kV adjustment per patient size (includes targeted exa ms where dose is matched to clinical indication); or iterative reconstruction.
== END 2023-02-17 03:02 ==
LOC: DI 02:42
PROVIDERS: PCP Internal Medicine; Visit Provider Physician Assistant Surgical
DX: J84.112 Idiopathic pulmonary fibrosis (principal); K80.00 Calculus of gallbladder with acute cholecystitis without obstruction
CPT/HCPCS: 71250

== ENCOUNTER 2023-02-17 18:10 | Outpatient (REF) | payer MEDICARE, SELFPAY ==
[2023-02-17 21:13] LABS: Abs Immature Grans 0.08 10^3/uL (0.0-0.06); Absolute Basophil Count 0.02 10^3/uL (0.0-0.2); Absolute Eosinophil Count 0.05 10^3/uL (0.0-0.7); Absolute Lymphocyte Count 0.48 10^3/uL (1.2-3.4); Absolute Monocyte Count 0.52 10^3/uL (0.1-0.8); Absolute Neutrophil Count 10.45 10^3/uL (1.2-6.7); Basophils % 0.2; Eosinophils % 0.4; HCT 31.4 % (40.0-50.0); HGB 9.5 g/dL (13.5-17.5); Immature Grans % 0.7; Lymphocytes % 4.1; MCHC 30.3 % (32.0-36.0); MCV 89 fL (80-95); Monocytes % 4.5; Neutrophils % 90.1; Platelet Count 264 10^3/uL (130-400); RBC 3.52 10^6/uL (4.36-5.78); RDW-SD 57.3 fL
[2023-02-17 21:37] LABS: ALT 15 U/L (16-63); AST 18 U/L (15-37); Albumin 3.2 g/dL (3.4-5.0); Alkaline Phosphatase 71 U/L (46-116); Anion Gap 9.9 mmol/L (3-11); BUN 33 mg/dL (7-18); Bilirubin, Total 1.1 mg/dL (0.2-1.0); CO2 27.1 mmol/L (21.0-32.0); CREATININE 2.1 mg/dL (0.70-1.30); Chloride 100 mmol/L (98-107); Estimated GFR 30.85 (mL/min/1.73m2); Glucose 122 mg/dL (74-106); NT-proBNP 1059 pg/mL (<300); Potassium 3.8 mmol/L (3.5-5.1); Sodium 137 mmol/L (136-145); Total Protein 6.6 g/dL (6.4-8.2)
== END 2023-02-17 18:11 | disposition home or self-care (01) ==
LOC: NCHCN 18:10
PROVIDERS: PCP Internal Medicine; Visit Provider Family Medicine
DX: J44.1 Chronic obstructive pulmonary disease with (acute) exacerbation (principal); J84.10 Pulmonary fibrosis, unspecified
CPT/HCPCS: 80053; 83880; 85025

== ENCOUNTER 2023-02-18 15:24 | Outpatient (REF) | payer MEDICARE, SELFPAY ==
[2023-02-19 23:37] LABS: Fungitell Qualitative Negative (Negative); Fungitell Quantitative Value 51 pg/mL (<60 pg/mL)
== END 2023-02-18 15:25 | disposition home or self-care (01) ==
LOC: LBN 15:24
PROVIDERS: PCP Internal Medicine; Visit Provider Physician Assistant Surgical
DX: J84.112 Idiopathic pulmonary fibrosis (principal); J16.8 Pneumonia due to other specified infectious organisms; R06.02 Shortness of breath; R05.8 Other specified cough; I50.9 Heart failure, unspecified
CPT/HCPCS: 87449; 87070; 87205

== ENCOUNTER → 2023-02-20 13:52 | Outpatient (BNVA) | payer MEDICARE, SELFPAY | PROVIDERS: PCP Internal Medicine; Referring Provider Internal Medicine; Visit Provider Surgery | DX: S81.802D Unspecified open wound, left lower leg, subsequent encounter (principal); X58.XXXD Exposure to other specified factors, subsequent encounter | CPT/HCPCS: 99211; 99212 ==

== ENCOUNTER 2023-02-24 14:41 | Outpatient (REF) | payer MEDICARE, SELFPAY ==
[2023-02-24 15:08] LABS: Abs Immature Grans 0.21 10^3/uL (0.0-0.06); Absolute Lymphocyte Count 0.72 10^3/uL (1.2-3.4); Absolute Monocyte Count 0.63 10^3/uL (0.1-0.8); Basophils % 0.1; Eosinophils % 0.1; HCT 32.7 % (40.0-50.0); HGB 9.9 g/dL (13.5-17.5); Immature Grans % 1.4; Lymphocytes % 4.7; MCH 27.2 pg (27.0-33.0); MCHC 30.3 % (32.0-36.0); MCV 90 fL (80-95); MPV 9.8 fL (8.0-11.0); Monocytes % 4.1; Neutrophils % 89.6; Nucleated RBC 0.1 % (0.0-0.3); Platelet Count 248 10^3/uL (130-400); RBC 3.64 10^6/uL (4.36-5.78); RDW 19.4 % (11.8-14.1); RDW-SD 62.3 fL; WBC 15.28 10^3/uL (4.4-10.8)
[2023-02-24 15:16] LABS: ESR 20 mm/hr (0-20)
[2023-02-24 15:17] LABS: Absolute Basophil Count 0.02 10^3/uL (0.0-0.2); Absolute Eosinophil Count 0.02 10^3/uL (0.0-0.7); Absolute Neutrophil Count 13.69 10^3/uL (1.2-6.7)
[2023-02-24 15:43] LABS: ALT 18 U/L (16-63); AST 18 U/L (15-37); Albumin 3.4 g/dL (3.4-5.0); Alkaline Phosphatase 58 U/L (46-116); Anion Gap 8.8 mmol/L (3-11); BUN 51 mg/dL (7-18); Bilirubin, Total 0.8 mg/dL (0.2-1.0); CO2 32.2 mmol/L (21.0-32.0); CREATININE 2.8 mg/dL (0.70-1.30); Calcium 9.1 mg/dL (8.5-10.1); Chloride 101 mmol/L (98-107); Creatine Kinase 96 U/L (39-308); Estimated GFR 21.84 (mL/min/1.73m2); Glucose 112 mg/dL (74-106); Potassium 4.5 mmol/L (3.5-5.1); Sodium 142 mmol/L (136-145); Total Protein 6.8 g/dL (6.4-8.2)
== END 2023-02-24 14:42 | disposition home or self-care (01) ==
LOC: NCHCN 14:41
PROVIDERS: PCP Internal Medicine; Visit Provider Family Medicine
DX: R25.2 Cramp and spasm (principal); D63.1 Anemia in chronic kidney disease; J44.1 Chronic obstructive pulmonary disease with (acute) exacerbation
CPT/HCPCS: 80053; 82550; 85652; 85025

== ENCOUNTER 2023-03-05 17:24 | Outpatient (REF) | payer MEDICARE, SELFPAY ==
[2023-03-05 22:30] LABS: HCT 33.5 % (40.0-50.0); HGB 10.1 g/dL (13.5-17.5); MCH 27.3 pg (27.0-33.0); MCHC 30.1 % (32.0-36.0); MCV 91 fL (80-95); MPV 10.2 fL (8.0-11.0); Platelet Count 244 10^3/uL (130-400); RDW-SD 65.5 fL; WBC 12.47 10^3/uL (4.4-10.8)
[2023-03-05 22:39] LABS: ESR 26 mm/hr (0-20)
[2023-03-05 22:53] LABS: ALT 17 U/L (16-63); AST 18 U/L (15-37); Albumin 3.5 g/dL (3.4-5.0); Alkaline Phosphatase 65 U/L (46-116); Anion Gap 6.9 mmol/L (3-11); BUN 45 mg/dL (7-18); Bilirubin, Total 1.6 mg/dL (0.2-1.0); CO2 33.1 mmol/L (21.0-32.0); CREATININE 2.8 mg/dL (0.70-1.30); Calcium 8.8 mg/dL (8.5-10.1); Chloride 99 mmol/L (98-107); Estimated GFR 21.84 (mL/min/1.73m2); Glucose 117 mg/dL (74-106); Potassium 4.9 mmol/L (3.5-5.1); Sodium 139 mmol/L (136-145); Total Protein 6.8 g/dL (6.4-8.2)
[2023-03-05 23:00] LABS: RDW 20.9 % (11.8-14.1)
[2023-03-07 10:56] LABS: Lyme Ab w Rflx to Lyme Confirm Negative (Negative)
[2023-03-09 17:58] LABS: Anaplasma phagocytophilum Negative (Negative); B. miyamotoi PCR Negative (Negative); Babesia divergens/MO-1 Negative (Negative); Babesia duncani Negative (Negative); Babesia microti Negative (Negative); Ehrlichia chaffeensis Negative (Negative); Ehrlichia ewingii/canis Negative (Negative); Ehrlichia muris eauclairensis Negative (Negative)
== END 2023-03-05 17:25 | disposition home or self-care (01) ==
LOC: NCHCN 17:24
PROVIDERS: PCP Internal Medicine; Visit Provider Family Medicine
DX: J44.1 Chronic obstructive pulmonary disease with (acute) exacerbation (principal); R25.2 Cramp and spasm; M79.10 Myalgia, unspecified site
CPT/HCPCS: 80053; 85027; 85652; 87798; 86618

== ENCOUNTER 2023-03-07 17:45 | Emergency (ER) | payer MEDICARE, SELFPAY ==
[2023-03-07 17:51] VITALS: BP 138/74; PULSE 90; RESP 18; TEMP 36.4; O2SAT 96
[2023-03-07 18:09] VITALS: RESP 16
--- NOTE | 2023-03-07 18:31 | ED.GENADUL_ITS ---
Discharge Plan Disposition Patient Disposition: Home Condition: Stable Discharge Details Chief Complaint: GenMedical Clinical Impression: Leg pain Primary Care Provider: Semaj Patricio ED Provider: Eliseo Fontana Home Meds and New Rx's Prescriptions: No Action furosemide [Lasix] 40 mg tablet 60 mg PO DAILY Patient Comments: pt. reports if it is in his blister pack he took it nintedanib 100 mg capsule 100 mg PO Q12H Qty: 60 3RF allopurinol 100 mg tablet 100 mg PO DAILY vitamin B complex Tablet 1 tab PO DAILY Ofev 150 mg capsule 150 mg PO Q12H Qty: 60 12RF pantoprazole 40 mg tablet,delayed release (DR/EC) 40 mg PO DAILY Patient Comments: pt. unsure if it is in blister pack Breztri Aerosphere 160-9-4.8 mcg/actuation HFA aerosol inhaler 2 inh inhalation BID apixaban 2.5 mg tablet 2.5 mg PO BID nitroglycerin [Nitrostat] 0.4 mg tablet, sublingual 0.4 mg SL Q5-15M PRN albuterol sulfate [ProAir HFA] 90 mcg/actuation HFA aerosol inhaler 2 puff IH Q6H PRN Patient Comments: 2 puffs PO every 4 hrs PRN per [facility] Oxygen Tank See Rx Instructions .Route Qty: 1 0RF Patient Comments: pt. states he has not been using it. Pt. came in wearing a pulse oximeter around neck, O2 sat normally between 95-98 Rx Instructions: 3Lpm at rest continuous via Nasal Cannula and 8Lpm during exertion continuous via Nasal Cannula fluticasone propionate [Allergy Relief (fluticasone)] 50 mcg/actuation spray,suspension 1 spray intranasal BID Rx Instructions: administer into each nostril acetaminophen [Tylenol Extra Strength] 500 mg tablet 500 mg PO Q4H PRN Patient Comments: 1 tab PO every 4 hrs PRN per [facility] midodrine 2.5 mg tablet 5 mg PO TID Santyl 250 unit/gram ointment 1 applic topical DAILY Qty: 30 2RF Patient Comments: pt think home health has being doing that Rx Instructions: Apply thin coating of Santyl ointment to open wounds. Cover with bandage. Change daily. potassium chloride [Klor-Con M20] 20 mEq tablet,ER particles/crystals 10 meq PO DAILY ibuprofen 400 mg tablet 400 mg PO Q6H PRN (Reason: pain) Qty: 20 0RF levothyroxine 75 MCG tablet 75 mcg PO DAILY ropinirole 2 MG tablet 2 mg PO HS sertraline 25 mg tablet 25 mg PO DAILY Patient Comments: TAKE 1 TABLET BY MOUTH EVERY DAY finasteride 5 mg tablet 5 mg PO DAILY Patient Comments: TAKE 1 TABLET BY MOUTH EVERY DAY, pt. thinks it is in his blister pack tamsulosin 0.4 mg capsule 0.8 mg PO DAILY Patient Comments: Take 2 capsule by mouth once a day montelukast 10 mg tablet 10 mg PO DAILY Patient Comments: TAKE 1 TABLET BY MOUTH DAILY cetirizine 10 mg Tablet 5 mg PO DAILY Qty: 0 0RF Patient Comments: pt. states i couldnt tell you Bio-K plus 50 billion cell capsule,delayed release(DR/EC) 1 cap PO DAILY Patient Comments: 1 cap PO TID x 2 months (starting 11/20/21) per Bharat TIDWELL. Pt. thinks it is in his blister pack Discharge Instructions Instructions: Leg Pain (ED) Additional Instructions: Please follow-up closely with your primary care physician, physical therapy, and neurology team. Medical Decision Making 82-year-old male presents with acute on chronic atraumatic lower extremity pain bilaterally, has been present over the past several weeks to months, afebrile nontoxic neurologically intact, warm well perfused sensate extremities mobile with the assistance of a cane, follows closely with physical therapy, lives alone endorses that he is able to perform active daily living and does still drive. Likely component of osteoarthritis coupled with peripheral neuropathy as well as chronic vascular disease. Low suspicion for DVT or acute arterial occlusion. No evidence of infection dislocation or fracture. Trial of anti- inflammatory in the form of dexamethasone. Patient will follow close with primary care physician physical therapy and neurology HPI General Date/Time Provider Initiated Documentation: 03/07/23 18:00 . HPI Narrative: 82-year-old male history of peripheral vascular disease presents with acute on chronic leg discomfort stabbing burning throbbing pain over the past several weeks to months, atraumatic. Patient has appointment with neurology for evaluation of neuropathy coming up in the coming weeks. Patient ambulates with a cane, still drives, lives alone is able to perform active daily living. Follows closely with physical therapy to work on his strength Related Data Home Medications Medication Instructions Recorded Confirmed levothyroxine 75 mcg tablet 75 mcg PO DAILY 12/03/16 02/26/23 ropinirole 2 mg tablet 2 mg PO HS 12/03/16 02/26/23 nitroglycerin 0.4 mg sublingual 0.4 mg sublingual Q5-15M PRN 07/30/19 02/26/23 tablet (Nitrostat) finasteride 5 mg tablet 5 mg PO DAILY 08/27/21 02/26/23 sertraline 25 mg tablet 25 mg PO DAILY 08/27/21 02/26/23 montelukast 10 mg tablet 10 mg PO DAILY 10/24/21 02/26/23 tamsulosin 0.4 mg capsule 0.8 mg PO DAILY 10/24/21 02/26/23 cetirizine 10 mg tablet 5 mg PO DAILY #0 tabs 11/20/21 02/26/23 L. acidophilus,casei,rhamnosus 50 1 cap PO DAILY 12/12/21 02/26/23 billion cell capsule,delayed release (Bio-K plus) albuterol sulfate 90 mcg/actuation 2 puff inhalation Q6H PRN 12/12/21 02/26/23 aerosol inhaler (ProAir HFA) nintedanib 150 mg capsule (Ofev) 150 mg PO Q12H #60 caps 12/12/21 02/26/23 vitamin B complex 1 tab PO DAILY 12/12/21 02/26/23 Oxygen #1 ea 01/01/22 02/26/23 furosemide 40 mg tablet (Lasix) 60 mg PO DAILY 01/03/22 02/26/23 budesonide 160 mcg-glycopyr 9 2 inh inhalation BID 07/30/22 02/26/23 mcg-formot 4.8 mcg/actuation HFA inhaler (Breztri Aerosphere) pantoprazole 40 mg tablet,delayed 40 mg PO DAILY 07/30/22 02/26/23 release acetaminophen 500 mg tablet 500 mg PO Q4H PRN 08/06/22 02/26/23 (Tylenol Extra Strength) fluticasone propionate 50 1 spray intranasal BID 08/06/22 02/26/23 mcg/actuation nasal spray,suspension (Allergy Relief (fluticasone)) midodrine 2.5 mg tablet 5 mg PO TID 08/06/22 02/26/23 ibuprofen 400 mg tablet 400 mg PO Q6H PRN pain #20 tabs 08/09/22 02/26/23 collagenase clostridium histo. 250 1 applic topical DAILY wound #30 09/25/22 02/26/23 unit/gram topical ointment (Santyl) grams apixaban 2.5 mg tablet 2.5 mg PO BID 11/25/22 02/26/23 nintedanib 100 mg capsule 100 mg PO Q12H #60 caps 01/21/23 02/26/23 allopurinol 100 mg tablet 100 mg PO DAILY 02/18/23 02/26/23 potassium chloride 20 mEq 10 meq PO DAILY 02/18/23 02/26/23 tablet,extended release(part/cryst) (Klor-Con M) Previous Rx's Medication Instructions Recorded cetirizine 10 mg tablet 5 mg PO DAILY #0 tabs 11/20/21 nintedanib 150 mg capsule (Ofev) 150 mg PO Q12H #60 caps 12/12/21 Oxygen #1 ea 01/01/22 ibuprofen 400 mg tablet 400 mg PO Q6H PRN pain #20 tabs 08/09/22 collagenase clostridium histo. 250 1 applic topical DAILY wound #30 09/25/22 unit/gram topical ointment (Santyl) grams nintedanib 100 mg capsule 100 mg PO Q12H #60 caps 01/21/23 Allergies Allergy/AdvReac Type Severity Reaction Status Date / Time Sulfa (Sulfonamide AdvReac Intermediate Its been Verified 02/26/23 11:22 Antibiotics) along time cat dander AdvReac Mild Verified 02/26/23 11:22 penicillin V AdvReac Mild nausea Verified 02/26/23 11:22 salicylates AdvReac Mild up set Verified 02/26/23 11:22 stomach voriconazole AdvReac Mild Visual Verified 02/26/23 11:22 Disturbances General Stated Complaint: GenMedical BRYCE: 3 Review of Systems Narrative: Review of Systems Constitutional: negative Eyes: negative ENT: negative Cardiovascular: negative Respiratory: negative Gastrointestinal: negative : negative Musculoskeletal: Leg pain Skin: negative Neurologic: negative Psych: negative PFSH All Active Problems (Updated 03/07/23 @ 18:35 by Eliseo Fontana MD) Leg pain (Acute) Acute exacerbation of idiopathic pulmonary fibrosis (Acute) Wound of left foot (Acute) Folate deficiency (Acute) Hand muscle weakness (Acute) Weakness of both hands (Acute) Microcytic anemia (Acute) Traumatic open wound of right lower leg (Acute) Frequent falls (Acute) Generalized muscle weakness (Acute) Wound of right leg (Acute) Venous stasis dermatitis of both lower extremities (Acute) Venous stasis ulcer limited to breakdown of skin with varicose veins (Acute) Venous stasis ulcer of ankle with fat layer exposed without varicose veins (Acute) Chronic venous insufficiency of lower extremity (Acute) Venous insufficiency of both lower extremities (Acute) Chronic renal failure, stage 4 (severe) (Acute) PAD (peripheral artery disease) (Chronic) Sleep apnea (Chronic) History of pulmonary embolism (Acute) Advanced care planning/counseling discussion (Acute) DNR (do not resuscitate) (Acute) PMR (polymyalgia rheumatica) (Acute) Pulmonary hypertension (Acute) Idiopathic pulmonary fibrosis (Acute) Orthostatic hypotension (Acute) Neuropathy (Acute) Anticoagulated (Acute) Pain in left foot (Acute) Acute arthritis (Acute) Ankle pain, chronic (Acute) Medical History (Updated 03/07/23 @ 18:35 by Eliseo Fontana MD) Abdominal aortic aneurysm Acute kidney injury superimposed on chronic kidney disease Anemia, mild BCC (basal cell carcinoma) Bilateral pneumonia BPH (benign prostatic hyperplasia) Chest pain CHF (congestive heart failure) Chronic ethmoidal sinusitis Chronic frontal sinusitis Chronic kidney disease Chronic lower back pain Decubitus ulcer of coccygeal region, stage 2 Deviated nasal septum Dilated aortic root Discharge planning issues DVT prophylaxis E coli bacteremia Elevated creatine kinase Fractured rib mid Sept 2018 Generalized osteoarthrosis Gout H/O urinary frequency Headache History of depression History of IBS Hx of colonic polyps Hx of hemorrhoids pt. reports a procedure on hemorrhoids Hx of Lyme disease Hx of pyelonephritis Hypertension Hypokalemia Hypothyroidism Kidney stone Lichen planus Lyme disease Nasal septal spur Nasal turbinate hypertrophy Neck pain On home oxygen therapy Orthostatic dizziness Pain, joint, hip, right Palliative care encounter Palliative care patient Palliative care patient Parkinsons pt. states he does not have Pneumonia Polymyalgia rheumatica pt. reports he has this not parkinsons Pulmonary emboli Pulmonary fat embolism Pulmonary fibrosis Pulmonary infiltrates Pyelonephritis due to Escherichia coli Restless leg syndrome Severe muscle deconditioning Sinus bradycardia Skin breakdown Trochanteric bursitis Venous insufficiency Surgical History Hx of colonoscopy Hx of inguinal hernia surgery Hx of total hip arthroplasty right Social History Smoking/Tobacco Use Status: Former Tobacco Use Quit Date: 09/08/81 Smoking risk assessment performed?: Yes Alcohol Intake: current Alcohol Intake frequency: 0-2 drinks per day Alcohol type: beer, wine and hard liquor Drug use: Never Substance use type: does not use Details: alcohol: t-2, couple drinks Housing: house Do you feel safe at home: Yes Do you feel safe in your relationship?: Yes Additional Social history: Abby alfarotbor/friend [phone] 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 Sister is in area. Exam Narrative Exam Narrative: Physical Examination General: alert, awake, cooperative, resting comfortably, no acute distress HEENT: normocephalic, atraumatic; PERRL, EOM intact, conjunctiva normal; no nasal discharge; moist mucous membranes, oral and pharyngeal mucosa normal, tolerating secretions Neck: supple, trachea midline; full ROM Chest: normal to inspection Respiratory: normal respiratory effort, speaking in full sentences, clear to auscultation, no wheezing, rales or rhonchi Cardiac: regular rate, regular rhythm, S1S2 intact, no murmurs rubs or gallops GI: abdomen soft, non-tender, non-distended; no palpable mass or hepatosplenomegaly Skin: Chronic venous stasis changes bilateral lower extremities Neuro: AAOx3, normal speech, moving all extremities Extremities: Extremities warm sensate mobile patient does have pitting edema to level of shins bilaterally, chronic venous stasis changes, range of motion intact no deformity. Psych: Appropriate mood and affect Course Vital Signs Vital signs: Vital Signs Temperature 36.4 C 03/07/23 17:51 Pulse 90 03/07/23 17:51 Respiratory Rate 18 03/07/23 17:51 Blood Pressure 138/74 03/07/23 17:51 Pulse Oximetry 96 03/07/23 17:51 Temperature 36.4 C 03/07/23 17:51 Temperature Source Oral 03/07/23 17:51 Pulse 90 03/07/23 17:51 Respiratory Rate 16 03/07/23 18:09 Respiratory Effort Normal, Non-Labored 03/07/23 18:09 Respiratory Depth Normal 03/07/23 18:09 Respiratory Pattern Normal 03/07/23 18:09 Blood Pressure 138/74 03/07/23 17:51 Blood Pressure Position Supine 03/07/23 17:51 Pulse Oximetry 96 03/07/23 17:51 Oxygen Delivery Method Room Air 03/07/23 17:51 Oxygen Flow Rate 0 03/07/23 17:51
[2023-03-07 18:43] VITALS: RESP 18; O2SAT 98
[2023-03-07] MEDS: Dexamethasone 10 MG/ML VIAL IVP (18:44)
== END 2023-03-07 18:50 | disposition home or self-care (01) ==
PROVIDERS: Emergency Provider Emergency Medicine; PCP Internal Medicine
DX: M79.605 Pain in left leg (principal); M79.604 Pain in right leg; R53.1 Weakness
CPT/HCPCS: 96374; 99284; J1100